=== PATIENT | male | born 1965 | race Caucasian/White ===

== ENCOUNTER 2023-05-14 06:52 | Outpatient (OUT) | payer OTHER, SELFPAY ==
--- NOTE | 2023-05-14 07:54 | CA_ITS ---
Patient Name: LINDSAY TORRES MR#: [id number] : 1965 Exam Date: 05/14/2023 Ordering Doctor: CE POZO CNP ECHOCARDIOGRAM REPORT PROCEDURE: CA ECHO DOPPLER COMPLETE INDICATIONS: Cardiomegaly, HTN COMPARISON: None. DESCRIPTION: COMPLETE ECHOCARDIOGRAM Real-time transthoracic echocardiography with 2D, M-mode, spectral and color flow Doppler performed. QUALITY: Technical quality was good. LEFT VENTRICLE: Normal chamber size. Thickened septal wall. LV EF: Global left ventricular systolic function is low normal limits; visually estimated ejection fraction is 50-55%. Abnormal septal motion; likely related to underlying bundle branch block. DIASTOLIC: Normal diastolic function. ATRIAL SEPTUM: Inadequately seen. LEFT ATRIUM: Severe dilatation. RIGHT ATRIUM: Moderate dilatation. RIGHT VENTRICLE: Normal in size. Normal right ventricular systolic function. TRICUSPID VALVE: Normal mobility and thickness. No stenosis with trivial regurgitation. No evidence of pulmonary hypertension. RVSP 28mmHg MITRAL VALVE: Normal mobility and thickness. No evidence of mitral valve stenosis. There is no mitral annular calcification. Mild mitral regurgitation. AORTIC VALVE: Normal trileaflet appearance. Thickened aortic valve. Normal leaflet mobility. No evidence of aortic valve stenosis. No aortic regurgitation. AORTIC ROOT: Mildly dilated. Measuring 3.9cm. PULMONIC VALVE: Normal thickness and mobility. No stenosis. No regurgitation. PERICARDIUM: Trivial pericardial effusion. IVC: Collapses with inspirations. Normal size. CONCLUSION: 1. Global left ventricular systolic function is low normal limits; visually estimated ejection fraction is 50 to 55% 2. The right ventricle is normal in size and systolic function 3. Normal diastolic function 4. Biatrial enlargement 5. Mild mitral regurgitation 6. The aortic root is mildly dilated 7. Trivial pericardial effusion is seen Adult Echocardiography Procedure Report Left Ventricle LVEDD (3.7 - 5.6 cm): 6.10 cm LVESD (2.2 - 4.0 cm): 4.26 cm LVIVS thickness (0.6 - 1.2 cm): 1.83 cm LVPW thickness (0.5 - 1.0 cm): 1.41 cm e': 0.11 m/s E - e': 6.69 LVOT Max Gradient: 2.57 mm[Hg] LVOT Area (cm2): 0.80 m/s Peak Velocity (LVOT): 0.80 m/s Mean Velocity (LVOT): 0.59 m/s LVOT Diameter 2.64 cm Left Ventricular Ejection Fraction: 52.09 % Left Atrium LA Volume Index (2D A2C): 71.40 ml/m2 Left Atrium Systolic Dimension: 4.27 cm Mitral Valve MV E to A Ratio: 1.75 Mitral Valve A-Wave Peak Velocity: 0.41 m/s Mitral Valve E-Wave Peak Velocity: 0.72 m/s Right Ventricle RV Internal Diastolic Dimension: 4.08 cm Aorta AO Root Diam: 3.87 cm Ascending Ao Diam: 3.54 cm Aortic Valve AoV Area (Peak Jozef): 3.35 cm2, 3.35 cm2 AoV Area (VTI): 3.17 cm2, 3.17 cm2 Peak Velocity(Antegrade Flow): 1.31 m/s Peak Gradient(Antegrade Flow): 6.89 mm[Hg] Mean Velocity(Antegrade Flow): 0.94 m/s Mean Gradient(Antegrade Flow): 4.03 mm[Hg] Velocity Time Integral: 28.15 cm Tricuspid Valve Peak Velocity (Regurgitant Flow): 2.33 m/s, 2.50 m/s, 2.20 m/s Pulmonic Valve Mean Gradient: 4.26 mm[Hg], 4.29 mm[Hg] Mean Velocity: 0.94 m/s, 0.96 m/s Peak Velocity: 1.45 m/s Peak Gradient: 8.61 mm[Hg], 8.20 mm[Hg] Right Atrium Right Atrium Systolic Pressure: 103.65 ml, 103.65 ml Dictated by: Megan Rosenberg M.D. on 05/14/2023 at 09:51 Approved by: Megan Rosenberg M.D. on 05/14/2023 at 09:55
== END 2023-05-14 06:53 | disposition home or self-care (01) ==
LOC: CARD 06:52
PROVIDERS: Family Provider Internal Medicine Interventional Cardiology; PCP Family Medicine; Visit Provider Nurse Practitioner Family
DX: I51.7 Cardiomegaly (principal); I34.0 Nonrheumatic mitral (valve) insufficiency
CPT/HCPCS: 93306; 93356

== ENCOUNTER 2024-05-09 08:14 | Outpatient (OUT) | payer OTHER, SELFPAY ==
--- OUTSIDE RECORDS SUMMARY | 2024-05-09 08:17 | XMS_ITS | CCD ---
Author Organization [facility] Care Team Providers Care Financial Internship Name Role Phone ANIBAL, DR KINGSLEY Mariee Attending Unavailabl e REINECK, DR KINGSLEY Mariee Consulting Unavailabl e REINECK, DR KINGSLEY Mariee Admitting Unavailabl e HOUSE, DR TINSLEY Primary Care Unavailable KLYM, CANDIS Consulting Unavailable HOUSE, DR TINSLEY Primary Care Unavailable HOUSE, DR TINSLEY Admitting Unavailable HOUSE, DR TINSLEY Attending Unavailable HOUSE, DR TINSLEY Consulting Unavailable TAFORMERLY [facility], DR DIAZ Consulting Unavailable HOUSE, DR TINSLEY Admitting Unavailable HOUSE, DR TINSLEY Attending Unavailable HOUSE, DR TINSLEY Consulting Unavailable HOUSE, DR TINSLEY Primary Care Unavailable CE POZO Attending Unavailable HOUSE, DO TINSLEY P Attending Unavailable HOUSE, LAUREANO Manuel Primary Care Unavailable Problems Active Problems Problem Classification Problem Date Documented Da te Episodic/Chronic Essential hypertension (2 sources) Essential (primary) hypertension; Translations: [Essential (primary) hypertension] Onset: 06-05-2023 Chronic Headache; including migraine (1 source) Headache; including migraine; Translations: [HEADACHE UNSPECIFIED] Onset: 05-23-2021 Past or Other Problems Problem Classification Problem Date Documented Da te Episodic/Chronic Other aftercare (1 source) 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; Translations: [OTH PRISON CURRENT DRUG THERAPY] Onset: 05-23-2021 Episodic Other nervous system disorders (4 sources) Pruitt's palsy; 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] Onset: 05-30-2021 Episodic Other skin disorders (3 sources) Localized swelling, mass and lump, head; Translations: [LOCALIZED SWELLING MASS AND LUMP HEAD] Onset: 05-21-2021 Episodic Results Test Name Value Interpretation Reference Range Facil ity Patient Handouton 05-05-2024 Patient Handout [id number] 5#1.00OTGTIFF [facility] Patient Handout [id number] 5#1.00OTGTIFF Normal [facility] Office Visiton 06-05-2023 Follow-up visit [id number] Lindsay Pinto 1965 M Date Provider Department Center 06/05/2023 CE REYES CARD [facility] Family History Problem Relation Age of Onset Hypertension Mother Cancer Father Coronary artery disease Father Hypertension Father Family Status - Relation Status Age at Mother Father Level of Service:51309 [place] OFFICE/OUTPATIENT ESTABLISHED MOD MDM 30-39 MIN Reason for Visit and Comments: Hypertension [392710] Normal [facility] CBC AUTO DIFFon 05-09-2022 BASO # 0.0 103/ul Normal 0.0-0.1 [facility] Comment on above: Performed By: #### C BC #### [facility] [address] [place] [address] Dr. Anny Corcoran Basophils/100 WBC (Bld) 0.4 % Normal 0.2-2.0 [facility] Comment on above: Performed By: #### C BC #### [facility] [address] [address] [address] Anny Corcoran EO # 0.1 103/ul Normal 0.0-0.7 [facility] Comment on above: Performed By: #### C BC #### [facility] [address] [place] [address] Dr. Anny Corcoran Eosinophils/100 WBC (Bld) 1.5 % Normal 0.9-7.0 [facility] Comment on above: Performed By: #### C BC #### [facility] [address] [address] [address] Anny Corcoran Erythrocyte distribution width (RBC) [Ratio] 14.1 % Normal 11.0-15.0 [facility] Comment on above: Performed By: #### C BC #### [facility] [address] [place] [address] Dr. Anny Corcoran Hematocrit (Bld) [Volume fraction] 37.6 % Critically low 42.0-54.0 [facility] Comment on above: Performed By: #### C BC #### [facility] [address] [address] [address] Anny Corcoran Hemoglobin (Bld) [Mass/Vol] 12.9 g/dL Critically low 14.0-18.0 [facility] Comment on above: Performed By: #### C BC #### [facility] [address] [address] [address] Anny Corcoran IG # 0.01 10e3/ul Normal 0.00-0.03 [facility] Comment on above: Performed By: #### C BC #### [facility] [address] [address] [address] Anny Corcoran IG % 0.2 % Normal 0.0-0.5 [facility] Comment on above: Performed By: #### C BC #### [facility] [address] [place] [address] Dr. Anny Corcoran LYMPH # 1.1 103/ul Critically low 1.2-3.8 [facility] Comment on above: Performed By: #### C BC #### [facility] [address] [place] [address] Dr. Anny Corcoran Lymphocytes/100 WBC (Bld) 21.8 % Normal 20.5-60.0 [facility] Comment on above: Performed By: #### C BC #### [facility] [address] [place] [address] Dr. Anny Corcoran MANUAL DIFF REQ NO Normal [facility] Comment on above: Performed By: #### C BC #### [facility] [address] [place] [address] Dr. Anny Corcoran MCH (RBC) [Entitic mass] 31.2 pg Normal 25.9-34.0 [facility] Comment on above: Performed By: #### C BC #### [facility] [address] [place] [address] Dr. Anny Corcoran MCHC (RBC) [Mass/Vol] 34.3 g/dL Normal 29.9-35.2 [facility] Comment on above: Performed By: #### C BC #### [facility] [address] [address] [address] Anny Corcoran MCV (RBC) [Entitic vol] 90.8 fL Normal 80.0-94.0 [facility] Comment on above: Performed By: #### C BC #### [facility] [address] [place] [address] Dr. Anny Corcoran MONO # 0.4 103/ul Normal 0.3-0.8 [facility] Comment on above: Performed By: #### C BC #### [facility] [address] [place] [address] Dr. Anny Corcoran Monocytes/100 WBC (Bld) 8.5 % Normal 1.7-12.0 [facility] Comment on above: Performed By: #### C BC #### [facility] [address] [place] [address] Dr. Anny Corcoran NEUT # 3.5 103/ul Normal 1.4-6.5 [facility] Comment on above: Performed By: #### C BC #### [facility] [address] [place] [address] Dr. Anny Corcoran Neutrophils/100 WBC (Bld) 67.6 % Normal 43.0-75.0 [facility] Comment on above: Performed By: #### C BC #### [facility] [address] [place] [address] Dr. Anny Corcoran Platelet mean volume (Bld) [Entitic vol] 9.4 fL Critically low 9.5-13.5 [facility] Comment on above: Performed By: #### C BC #### [facility] [address] [place] [address] Dr. Anny Corcoran PLT 209 103/ul Normal 150-450 [facility] Comment on above: Performed By: #### C BC #### [facility] [address] [place], [place] [id number] Dr. Anny Corcoran RBC 4.14 106/ul Critically low 4.70-6.10 [facility] Comment on above: Performed By: #### C BC #### [facility] [address] [place] [address] Dr. Anny Corcoran WBC 5.2 103/ul Normal 4.0-11.0 [facility] Comment on above: Performed By: #### C BC #### [facility] [address] [address] [address] Anny Corcoran LIPID PROFILEon 05-09-2022 CHOL-HDL RATIO NORM SEE BELOW Normal [facility] Comment on above: Result Comment: 3.3 - 4.4 LOW RISK 4.4 - 7.1 AVERAGE RISK 7.1 - 11.0 MODERATE RISK >11.0 HIGH RISK Performed By: #### L IPID, CMP #### [facility] [address] [address] [address] Anny Corcoran Cholesterol [Mass/Vol] 103 mg/dL Normal <=200 [facility] Comment on above: Performed By: #### L IPID, CMP #### [facility] [address] [address] [address] Anny Corcoran Cholesterol in HDL [Mass/Vol] 54 mg/dL Normal 40-60 [facility] Comment on above: Performed By: #### L IPID, CMP #### [facility] [address] [address] [address] Anny Corcoran Cholesterol in LDL [Mass/Vol] 43.8 mg/dL Normal [facility] Comment on above: Performed By: #### L IPID, CMP #### [facility] [address] [address] [address] Anny Corcoran Cholesterol.total/ Cholesterol in HDL [Mass ratio] 1.9 {ratio} Normal [facility] Comment on above: Performed By: #### L IPID, CMP #### [facility] [address] [address] [address] Anny Corcoran HDL NORMAL > or = 60 mg/dl - LOW CARDIOVASCULAR RISK <40 mg/dl - HIGH CARDIOVASCULAR RISK Normal [facility] Comment on above: Performed By: #### L IPID, CMP #### [facility] [address] [address] [address] Anny Corcoran LDL CALC NORMAL SEE BELOW Normal [facility] Comment on above: Result Comment: <100 mg/dl OPTIMAL 100 - 129 mg/dl NEAR OR ABOVE OPTIMAL 130 - 159 mg/dl BORDERLINE HIGH 160 - 189 mg/dl HIGH >190 mg/dl VERY HIGH Performed By: #### L IPID, CMP #### [facility] [address] [place] [address] Dr. Anny Corcoran Triglyceride [Mass/Vol] 26 mg/dL Normal <=150 [facility] Comment on above: Performed By: #### L IPID, CMP #### [facility] [address] [place] [address] Dr. Anny Corcoran VLDL CALC 5.2 mg/dL Normal [facility] Comment on above: Performed By: #### L IPID, CMP #### [facility] [address] [place] [address] Dr. Anny Corcoran PROF 14(COMP METB)on 022 Albumin [Mass/Vol] 4.0 g/dL Normal 3.4-5.0 [facility] Comment on above: Performed By: #### L IPID, CMP #### [facility] [address] [place] [address] Dr. Anny Corcoran Albumin/Globulin [Mass ratio] 1.4 {ratio} Normal [facility] Comment on above: Performed By: #### L IPID, CMP #### [facility] [address] [place] [address] Dr. Anyn Corcoran ALP [Catalytic activity/Vol] 106 U/L Normal 46-116 [facility] Comment on above: Performed By: #### L IPID, CMP #### [facility] [address] [place] [address] Dr. Anny Corcoran ALT [Catalytic activity/Vol] 28 U/L Normal 16-63 [facility] Comment on above: Performed By: #### L IPID, CMP #### [facility] [address] [place] [address] Dr. Anny Corcoran Anion gap [Moles/Vol] 7.3 mmol/L Normal [facility] Comment on above: Performed By: #### L IPID, CMP #### [facility] [address] [place] [address] Dr. Anny Corcoran AST [Catalytic activity/Vol] 23 U/L Normal 15-37 [facility] Comment on above: Performed By: #### L IPID, CMP #### [facility] [address] [address] [address] Anny Corcoran Bilirubin [Mass/Vol] 2.7 mg/dL Critically high 0.2-1.0 [facility] Comment on above: Performed By: #### L IPID, CMP #### [facility] [address] [place] [address] Dr. Anny Corcoran Calcium [Mass/Vol] 9.0 mg/dL Normal 8.5-10.1 [facility] Comment on above: Performed By: #### L IPID, CMP #### [facility] [address] [place] [address] Dr. Anny Corcoran Chloride [Moles/Vol] 104 mmol/L Normal 98-107 [facility] Comment on above: Performed By: #### L IPID, CMP #### [facility] [address] [place] [address] Dr. Anny Corcoran CO2 [Moles/Vol] 32.5 mmol/L Critically high 21.0-32.0 [facility] Comment on above: Performed By: #### L IPID, CMP #### [facility] [address] [place] [address] Dr. Anny Corcoran Creatinine [Mass/Vol] 0.78 mg/dL Normal 0.70-1.30 [facility] Comment on above: Performed By: #### L IPID, CMP #### [facility] [address] [place] [address] Dr. Anny Corcoran EGFR-AF VIET[place]ESE >60 Normal >=60 [facility] Comment on above: Performed By: #### L IPID, CMP #### [facility] [address] [place] [address] Dr. Anny Corcoran EGFR-NON AF VIETNAMESE >60 Normal >=60 [facility] Comment on above: Performed By: #### L IPID, CMP #### [facility] [address] [address] [address] Anny Corcoran Globulin (S) [Mass/Vol] 2.8 g/dL Normal [facility] Comment on above: Performed By: #### L IPID, CMP #### [facility] [address] [place] [address] Dr. Anny Corcoran Glucose [Mass/Vol] 86 mg/dL Normal 74-106 [facility] Comment on above: Performed By: #### L IPID, CMP #### [facility] [address] [place] [address] Dr. Anny Corcoran Potassium [Moles/Vol] 3.8 mmol/L Normal 3.5-5.1 [facility] Comment on above: Performed By: #### L IPID, CMP #### [facility] [address] [place] [address] Dr. Anny Corcoran Protein [Mass/Vol] 6.8 g/dL Normal 6.4-8.2 [facility] Comment on above: Performed By: #### L IPID, CMP #### [facility] [address] [place] [address] Dr. Anny Corcoran Sodium [Moles/Vol] 140 mmol/L Normal 136-145 [facility] Comment on above: Performed By: #### L IPID, CMP #### [facility] [address] [place] [address] Dr. Anny Corcoran Urea nitrogen [Mass/Vol] 19.0 mg/dL Critically high 7.0-18.0 [facility] Comment on above: Performed By: #### L IPID, CMP #### [facility] [address] [place] [address] Dr. Anny Corcoran Urea nitrogen/Creatinin e [Mass ratio] 24.4 mg/mg Normal [facility] Comment on above: Performed By: #### L IPID, CMP #### [facility] [address] [place] [address] Dr. Anny Corcoran LYME DISEASE AB, TOTAL AND I GM W/WB REFLon 06-01-2021 Lyme Disease Ab, Quant, IgM <0.80 Normal 0.00-0.79 [facility] Comment on above: Result Comment: Nega tive <0.80 Equivocal 0.80 - 1.19 Positive >1.19 . IgM levels may peak at 3-6 weeks post infection, then gradually decline. Performed By: #### L YMA #### [facility] [address] [place], [place] [address] Dr. Anny Corcoran Lyme IgG/IgM Ab <0.91 Normal 0.00-0.90 [facility] Comment on above: Result Comment: Nega tive <0.91 Equivocal 0.91 - 1.09 Positive >1.09 Performed By: #### L YMA #### [facility] [address] [place], [place] [address] HEAD WO CONon 05-21-2021 CT HEAD WO CON HEAD CT WITHOUT CONTRAST: 05/21/2021 11:40 AM EST Clinical Data: HEADACHE Comparison: No previous Unenhanced axial data from base to vertex. INTRA-AXIAL: No acute hemorrhage. No acute infarction is evident. EXTRA-AXIAL: No acute hemorrhage. No focal fluid collection. BRAIN VOLUME: Unremarkable for age. VENTRICLES: No hydrocephalus PARANASAL SINUSES: No air-fluid levels in the included aspects. Areas of mild mucosal thickening MASTOIDS: Clear. CALVARIUM: No acute finding. EXTRACALVARIAL: No acute findings IMPRESSION: 1. No evidence of acute intracranial process on this unenhanced study as described. All CT scans at this facility use dose modulation, iterative reconstruction, and/or weight based dosing when appropriate to reduce radiation dose to as low as reasonably achievable. Dosage: Electronically authenticated by: CANDIS MENDEZ Date: 2021-05-21 12:48 Normal [facility] Encounters Encounter Date Encounter Type Care Provider Facility Start: 04-30-2024 End: 04-30-2024 ambulatory DO LAUREANO LINDER Facility:[facility] Start: 06-05-2023 End: 06-05-2023 ambulatory [facility] Start: 06-05-2023 End: 06-05-2023 Encounter for general adult medical examination without abnormal findings [facility] Start: 05-14-2022 Encounter for genera l adult medical examination without abnormal findings DR LAUREANO LINDER [facility] Start: 05-09-2022 End: 05-10-[address] LAUREANO LINDER Facility:[facility] Start: 05-09-2022 End: 05-10-2022 Encounter for general adult medical examination without abnormal findings DR LAUREANO LINDER Facility:[facility] Start: 05-30-2021 End: 05-31-[address] LAUREANO LINDER Facility:[facility] Start: 05-21-2021 End: 05-21-[address] KINGSLEY BARNETT Facility:[facility] Procedures Date Procedure Procedure Detail Performing Clinician Start: 05-09-[address] NELIA BARNETT Comment on above: Performed By: #### P SAD #### [facility] [address] [address] [address] Anny Corcoran Payers Date Payer Category Payer Private Health Insurance [id number] 2012 Unknown [id number] 1965 Unknown [id number] [id number] 1965 Unknown [id number] [id number] 1965 Unknown [id number] 1965 Unknown [id number] [id number] Progress note 06-05-2023 Note Date & Type Note Facility 06-05-2023 Note [facility] SUBJECTIVE Chief Complaint Patient presents with Hypertension Lindsay Pinto is a 57 y.o. male here for follow-up. HPI PMHx: HTN, severe LVH, ENA and obesity s/p gastric bypass surgery He has been feeling well since last seen. He is not checking his BP at home. Denies c/o CP, dyspnea, orthopnea, PND, LE edema, dizziness/LH, palpitations, syncope. Patient Active Problem List Diagnosis Gout Hypertensive disorder Obesity Obstructive sleep apnea syndrome Ascending aorta dilatation (CMS/HCC) Past Medical History: Diagnosis Date Hypertension Obesity ENA (obstructive sleep apnea) Family History Problem Relation Name Age of Onset Hypertension Mother Cancer Father Coronary artery disease Father Hypertension Father Social History Tobacco Use Smoking status: Never Smokeless tobacco: Never Substance Use Topics Alcohol use: Yes Comment: occasional No Known Allergies ROS Musculoskeletal: Positive for arthritis and joint pain. All other systems reviewed and are negative. OBJECTIVE Visit Vitals BP 128/84 (BP Location: Left arm, Patient Position: Sitting) Pulse 59 Ht 1.753 m (5' 9 ) Wt 111 kg (244 lb) SpO2 99% BMI 36.03 kg/m??? Smoking Status Never BSA 2.32 m??? Medications: Current Outpatient Medications: ferrous sulfate 325 (65 Fe) MG tablet, Take 65 mg by mouth in the morning and at bedtime., Disp: , Rfl: furosemide (Lasix) 40 mg tablet, Take 1 tablet (40 mg) by mouth in the morning and at bedtime., Disp: 180 tablet, Rfl: 3 labetalol (Normodyne) 200 mg tablet, Take 2 tablets (400 mg) by mouth in the morning, at noon, and at bedtime., Disp: 540 tablet, Rfl: 3 lisinopril 10 mg tablet, Take 1 tablet (10 mg) by mouth in the morning., Disp: 90 tablet, Rfl: 3 Physical Exam Constitutional: Appearance: Normal appearance. He is normal weight. HENT: Head: Normocephalic and atraumatic. Right Ear: External ear normal. Left Ear: External ear normal. Eyes: Extraocular Movements: Extraocular movements intact. Pupils: Pupils are equal, round, and reactive to light. Neck: Vascular: No carotid bruit. Cardiovascular: Rate and Rhythm: Normal rate and regular rhythm. Pulses: Normal pulses. Heart sounds: Normal heart sounds. Pulmonary: Effort: Pulmonary effort is normal. Breath sounds: Normal breath sounds. Abdominal: General: Bowel sounds are normal. Palpations: Abdomen is soft. Musculoskeletal: General: Normal range of motion. Cervical back: Neck supple. Right lower leg: No edema. Left lower leg: No edema. Skin: General: Skin is warm and dry. Neurological: General: No focal deficit present. Mental Status: He is alert and oriented to person, place, and time. Psychiatric: Mood and Affect: Mood normal. Behavior: Behavior normal. Thought Content: Thought content normal. Judgment: Judgment normal. Labs: 05/09/2022 CBC - unremarkable Cr 0.75, BUN 19, K 3.8, Na 140, eGFR>60, ALT 28, AST 23 Chol 103, HDL 54, trig 25, LDL 43 Labs 04/08/2021 total bilirubin is high at 2.5, creatinine is 0.79, cholesterol is 114, HDL is 49, triglycerides of 50 and LDL is 55 Testing/Procedures: ECHO 05/14/2023 Global LV systolic function is low normal limits; visually estimated EF 50-55% RV is normal in size and function Normal diastolic function Biatrial enlargement Mild mitral regurg Aortic root is mildly dilated Trivial pericardial effusion is seen ECHO (05/07/2019) Global left ventricular systolic function is mildly to moderately reduced (Visually estimated EF 40%). The left ventricle is moderately enlarged. Left ventricular wall thickness is severely increased. Severe left ventricular hypertrophy. The left atrium is severely enlarged. The right atrium is severely enlarged. Doppler studies suggest normal right sided pressures. Mild aortic dilatation . Stress test 2016: no ischemia, LBBB ASSESSMENT/PLAN: Diagnosis Plan 1. Essential hypertension labetalol (Normodyne) 200 mg tablet lisinopril 10 mg tablet Comprehensive metabolic panel CBC 2. LVH (left ventricular hypertrophy) 3. Ascending aorta dilatation (CMS/HCC) 4. LV dysfunction 5. Nonrheumatic mitral valve regurgitation 6. ENA (obstructive sleep apnea) 7. Well adult exam Lipid panel #HTN -Currently well controlled -Continue labetalol and lisinopril -Continue heart healthy diet and routine exercise -Ordered for routine lab work #Severe LVH per 2018 ECHO #LV dysfunction, EF 40% per 2018 ECHO -ECHO done 05/14/2023 showed improvement in LVH, EF 50-55% - reviewed results with patient #Aortic dilation -Mild per 2018 ECHO -Mild per 05/2023 ECHO -Discussed importance of good BP control -Continue routine monitoring #Obstructive sleep apnea syndrome -He notes he is not currently wearing as he needs a new mask. We discussed the importance of controlling ENA and managing LVH, HTN, etc. (more content not included)... [facility] Progress note 06-05-2023 Note Date & Type Note Facility 06-05-2023 Note Patient here for 1 y ear follow up hypertension, LVH, and aortic dilation. Had echo a few weeks ago. Doing very well, as he denies chest pain, palpitations, and SOB. Review of Systems Musculoskeletal: Positive for arthritis and joint pain. All other systems reviewed and are negative. [facility] Summary Purpose Family History No Family History Records FoundNo Family History Records FoundNo Family History Records Found Advance Directives No Advanced Directives Records FoundNo Advanced Directives Records FoundNo Advanced Directives Records Found Additional Source Comments (unrecognized sect ion and content) No Status Records FoundNo Status Records FoundNo Status Records Found INFORMATION SOURCE (unrecogn ized section and content) DATE CREATED AUTHOR 05/14/2022 [facility] DATE CREATED AUTHOR AUTHOR'S ORGANIZ ATION 06/07/2023 [facility] DATE CREATED AUTHOR AUTHOR'S ORGANIZ ATION 05/07/2024 [facility] FOR RECORDS PERTAINING TO PATIENTS WHO ARE OR HAVE BEEN ENROLLED IN A CHEMICAL DEPENDENCY/SUBSTANCEABUSE PROGRAM, SOME INFORMATION MAY BE OMITTED. This clinical summary was aggregated from multiple sources. Caution should be exercised in using it in the provision of clinical care. This summary normalizes information from multiple sources, and as a consequence, information in this document may materially change the coding, format and clinical context of patient data. In addition, data may be omitted in some cases. CLINICAL DECISIONS SHOULD BE BASED ON THE PRIMARY CLINICAL RECORDS. [facility]. provides no warranty or guarantee of the accuracy or completeness of information in this document.
[2024-05-09 09:36] LABS: Basophils Percent Auto 0.4 % (0.2-2.0); Eosinophils Absolute Auto 0.1 10^3/uL (0.0-0.7); Eosinophils Percent Auto 1.2 % (0.9-7.0); Hematocrit 40.6 % (42.0-54.0); Hemoglobin 13.7 g/dL (14.0-18.0); Immature Granulocytes Abs Auto 0.01 10^3/uL (0.00-0.03); Immature Granulocytes Pct Auto 0.2 % (0.0-0.5); Lymphocytes Absolute Auto 1.1 10^3/uL (1.2-3.8); Mean Corpuscular HGB Conc 33.7 g/dL (29.9-35.2); Mean Corpuscular Hemoglobin 30.9 pg (25.9-34.0); Mean Corpuscular Volume 91.4 fL (80.0-94.0); Mean Platelet Volume 9.7 fL (9.5-13.5); Monocytes Absolute Auto 0.5 10^3/uL (0.3-0.8); Monocytes Percent Auto 9.9 % (1.7-12.0); Neutrophils Absolute Auto 3.2 10^3/uL (1.4-6.5); Neutrophils Percent Auto 65.3 % (43.0-75.0); Platelet Count 205 10^3/uL (150-450); Red Blood Count 4.44 10^6/uL (4.70-6.10); Red Cell Distribution Width 13.7 % (11.0-15.0); White Blood Count 4.9 10^3/uL (4.0-11.0)
[2024-05-09 09:45] LABS: Alanine Aminotransferase 27 U/L (16-63); Albumin Globulin Ratio 1.5; Albumin Level 3.7 g/dL (3.4-5.0); Alkaline Phosphatase 114 U/L (46-116); Aspartate Amino Transferase 21 U/L (15-37); BUN Creatinine Ratio 23.1; Bilirubin Total 3.5 mg/dL (0.2-1.0); Calcium 8.6 mg/dL (8.5-10.1); Carbon Dioxide 28.3 mmol/L (21.0-32.0); Chloride 108 mmol/L (98-107); Chol HDL Ratio 2.2; Cholesterol 111 mg/dL (<=200); Estimated GFR (African America >60 (>=60 mL/min/1.73m^2); Estimated GFR (Non-African Ame >60 (>=60 mL/min/1.73m^2); Globulin 2.5 g/dL; Glucose 85 mg/dL (74-106); HDL Cholesterol 50 mg/dL (40-60); LDL Cholesterol Calculated 52.4 mg/dL; Potassium 4.3 mmol/L (3.5-5.1); Sodium 145 mmol/L (136-145); Total Protein 6.2 g/dL (6.4-8.2); Triglycerides 43 mg/dL (<=150); VLDL CHOLESTEROL 8.6 mg/dL
[2024-05-09 10:19] LABS: Prostate Specific Antigen Scrn 0.49 ng/mL (<=4.00)
== END 2024-05-09 08:15 | disposition home or self-care (01) ==
PROVIDERS: Family Provider Internal Medicine Interventional Cardiology; PCP Family Medicine; Visit Provider Family Medicine
DX: Z12.5 Encounter for screening for malignant neoplasm of prostate (principal); I10 Essential (primary) hypertension
CPT/HCPCS: 36415; 80053; 80061; 85025; G0103

== ENCOUNTER 2025-02-10 17:52 | Emergency (ER) | payer OTHER, SELFPAY ==
[2025-02-10 17:55] VITALS: BP 117/99; PULSE 64; TEMP 36.3; O2SAT 100; BMI 38.0
--- OUTSIDE RECORDS SUMMARY | 2025-02-10 17:58 | XMS_ITS | Clinical Summary ---
Author Organization [facility] tem Address [id number] [address] [place] [address] Care Team Providers Care Scarifier Operator Name Role Phone Jalen Echeverria DO Primary Care Provider [phone] Social History Tobacco Use Types Packs/Day Years Used Date Smoking Tobacco: Never Assessed Childcare Answer Date Recorded Childcare Unknown 12/10/2018 Employment Answer Date Recorded Employment Unknown 12/10/2018 Purpose - Life Answer Date Recorded Purpose and direction in life Unknown Sex and Gender Information Value Date Recorded Sex Assigned at Not on file Legal Sex Male 11:40 AM EDT Gender Identity Not on file Sexual Orientation Not on file Plan of Treatment Not on file Medical Devices Not on file Insurance [employer] Care Teams Scarifier Operator Relationship Specialty Start Date End Date Jalen Echeverria DO PCP - General Family Medicine 05/18/19
--- OUTSIDE RECORDS SUMMARY | 2025-02-10 17:59 | XMS_ITS | CCD ---
Author Organization [facility] Care Team Providers Care Interior Paneler Name Role Phone ANIBAL, DR KINGSLEY Mariee Attending Unavailabl e REINECK, DR KINGSLEY Mariee Consulting Unavailabl e REINECK, DR KINGSLEY Mariee Admitting Unavailabl e HOUSE, DR TINSLEY Primary Care Unavailable KLYM, CANDIS Consulting Unavailable HOUSE, DR TINSLEY Primary Care Unavailable HOUSE, DR TINSLEY Admitting Unavailable HOUSE, DR TINSLEY Attending Unavailable HOUSE, DR TINSLEY Consulting Unavailable ELTAHAWY, DR DIAZ Consulting Unavailable HOUSE, DR TINSLEY Admitting Unavailable HOUSE, DR TINSLEY Attending Unavailable HOUSE, DR TINSLEY Consulting Unavailable HOUSE, DR TINSLEY Primary Care Unavailable CE POZO Attending Unavailable ELTAHAWY, JOE Attending Unavailable HOUSE, DO TINSLEY P Attending Unavailable HOUSE, LAUREANO P Primary Care Unavailable HOUSE, DO TINSLEY P Attending Unavailable HOUSE, LAUREANO P Primary Care Unavailable HOUSE, LAUREANO P Primary Care Unavailable HOUSE, DO TINSLEY P Attending Unavailable Problems Active Problems Problem Classification Problem Date Documented Da te Episodic/Chronic Essential hypertension (2 sources) Essential (primary) hypertension; Translations: [Essential (primary) hypertension] Onset: 06-05-2023 Chronic Headache; including migraine (1 source) Headache; including migraine; Translations: [HEADACHE UNSPECIFIED] Onset: 05-23-2021 Residual codes; unclassified (2 sources) Edema, unspecified; Translations: [Edema, unspecified] Onset: 06-01-2024 Episodic Past or Other Problems Problem Classification Problem Date Documented Da te Episodic/Chronic Other aftercare (1 source) 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2024 Follow-up visit [id number] Lindsay Pinto 1965 M Date Provider Department Center 06/01/2024 JOE GIBBONS CARD [facility] Family History Problem Relation Age of Onset Hypertension Mother Cancer Father Coronary artery disease Father Hypertension Father Family Status - Relation Status Age at Mother Father Level of Service:61725 [place] OFFICE/OUTPATIENT ESTABLISHED LOW MDM 20 MIN Normal [facility] Lab - Other Lab [facility] - Other Lab Results [id number]#[address] [facility] Patient Handouton 05-05-2024 Patient Handout [id number] 5[facility] [id number] 5[facility] 06-05-2023 Follow-up visit [id number] Lindsay Pinto 1965 Date Provider Department Center 06/05/2023 CE REYES [facility] Family History Problem Relation Age of Onset Hypertension Mother Cancer Father Coronary artery disease Father Hypertension Father Family Status - Relation Status Age at Mother Father Level of Service:23659 [place] OFFICE/OUTPATIENT ESTABLISHED MOD MDM 30-39 MIN Reason for Visit and Comments: Hypertension [465531] Normal [facility] CBC AUTO DIFFon 05-09-2022 BASO # 0.0 103/ul Normal 0.0-0.1 [facility] Comment on above: Performed By: #### C BC #### [facility] [address] [address] [address] Anny Corcoran Basophils/100 WBC (Bld) 0.4 % Normal 0.2-2.0 [facility] Comment on above: Performed By: #### C BC #### [facility] [address] [address] [address] Anny Corcoran EO # 0.1 103/ul Normal 0.0-0.7 [facility] Comment on above: Performed By: #### C BC #### [facility] [address] [place] [address] Dr. Anny Corcoran Eosinophils/100 WBC (Bld) 1.5 % Normal 0.9-7.0 [facility] Comment on above: Performed By: #### C BC #### [facility] [address] [place] [address] Dr. Anny Corcoran Erythrocyte distribution width (RBC) [Ratio] 14.1 % Normal 11.0-15.0 [facility] Comment on above: Performed By: #### C BC #### [facility] [address] [place] [address] Dr. Anny Corcoran Hematocrit (Bld) [Volume fraction] 37.6 % Critically low 42.0-54.0 [facility] Comment on above: Performed By: #### C BC #### [facility] [address] [place] [address] Dr. Anny Corcoran Hemoglobin (Bld) [Mass/Vol] 12.9 g/dL Critically low 14.0-18.0 [facility] Comment on above: Performed By: #### C BC #### [facility] [address] [place] [address] Dr. Anny Corcoran IG # 0.01 10e3/ul Normal 0.00-0.03 [facility] Comment on above: Performed By: #### C BC #### [facility] [address] [place] [address] Dr. Anny Corcoran IG % 0.2 % Normal 0.0-0.5 [facility] Comment on above: Performed By: #### C BC #### [facility] [address] [place] [address] Dr. Anny Corcoran LYMPH # 1.1 103/ul Critically low 1.2-3.8 [facility] Comment on above: Performed By: #### C BC #### [facility] [address] [place] [address] Dr. Anny Corcoran Lymphocytes/100 WBC (Bld) 21.8 % Normal 20.5-60.0 [facility] Comment on above: Performed By: #### C BC #### [facility] [address] [place] [address] Dr. Anny Corcoran MANUAL DIFF REQ NO Normal [facility] Comment on above: Performed By: #### C BC #### [facility] [address] [place] [address] Dr. Anny Corcoran MCH (RBC) [Entitic mass] 31.2 pg Normal 25.9-34.0 [facility] Comment on above: Performed By: #### C BC #### [facility] [address] [place] [address] Dr. Anny Corcoran MCHC (RBC) [Mass/Vol] 34.3 g/dL Normal 29.9-35.2 [facility] Comment on above: Performed By: #### C BC #### [facility] [address] [place] [address] Dr. Anny Corcoran MCV (RBC) [Entitic vol] 90.8 fL Normal 80.0-94.0 [facility] Comment on above: Performed By: #### C BC #### [facility] [address] [place] [address] Dr. Anny Corcoran MONO # 0.4 103/ul Normal 0.3-0.8 [facility] Comment on above: Performed By: #### C BC #### [facility] [address] [place] [address] Dr. Anny Corcoran Monocytes/100 WBC (Bld) 8.5 % Normal 1.7-12.0 [facility] Comment on above: Performed By: #### C BC #### [facility] [address] [place] [address] Dr. Anny Corcoran NEUT # 3.5 103/ul Normal 1.4-6.5 [facility] Comment on above: Performed By: #### C BC #### [facility] [address] [address] [address] Anny Corcoran Neutrophils/100 WBC (Bld) 67.6 % Normal 43.0-75.0 [facility] Comment on above: Performed By: #### C BC #### [facility] [address] [address] [address] Anny Corcoran Platelet mean volume (Bld) [Entitic vol] 9.4 fL Critically low 9.5-13.5 [facility] Comment on above: Performed By: #### C BC #### [facility] [address] [address] [address] Anny Corcoran PLT 209 103/ul Normal 150-450 [facility] Comment on above: Performed By: #### C BC #### [facility] [address] [place] [address] Dr. Anny Corcoran RBC 4.14 106/ul Critically low 4.70-6.10 [facility] Comment on above: Performed By: #### C BC #### [facility] [address] [place] [address] Dr. Anny Corcoran WBC 5.2 103/ul Normal 4.0-11.0 [facility] Comment on above: Performed By: #### C BC #### [facility] [address] [place] [address] Dr. Anny Corcoran LIPID PROFILEon 05-09-2022 CHOL-HDL RATIO NORM SEE BELOW Normal [facility] Comment on above: Result Comment: 3.3 - 4.4 LOW RISK 4.4 - 7.1 AVERAGE RISK 7.1 - 11.0 MODERATE RISK >11.0 HIGH RISK Performed By: #### L IPID, CMP #### [facility] [address] [place] [address] Dr. Anny Corcoran Cholesterol [Mass/Vol] 103 mg/dL Normal <=200 [facility] Comment on above: Performed By: #### L IPID, CMP #### [facility] [address] [address] [address] Anny Corcoran Cholesterol in HDL [Mass/Vol] 54 mg/dL Normal 40-60 [facility] Comment on above: Performed By: #### L IPID, CMP #### [facility] [address] [address] [address] Anny Corcoran Cholesterol in LDL [Mass/Vol] 43.8 mg/dL Normal [facility] Comment on above: Performed By: #### L IPID, CMP #### [facility] [address] [address] [address] Anny Corcoran Cholesterol.total/ Cholesterol in HDL [Mass ratio] 1.9 {ratio} Normal [facility] Comment on above: Performed By: #### L IPID, CMP #### [facility] [address] [address] [address] Anny Corcoran HDL NORMAL > or = 60 mg/dl - LOW CARDIOVASCULAR RISK <40 mg/dl - HIGH CARDIOVASCULAR RISK Normal [facility] Comment on above: Performed By: #### L IPID, CMP #### [facility] [address] [address] [address] Anny Corcoran LDL CALC NORMAL SEE BELOW Normal [facility] Comment on above: Result Comment: <100 mg/dl OPTIMAL 100 - 129 mg/dl NEAR OR ABOVE OPTIMAL 130 - 159 mg/dl BORDERLINE HIGH 160 - 189 mg/dl HIGH >190 mg/dl VERY HIGH Performed By: #### L IPID, CMP #### [facility] [address] [place] [address] Dr. Anny Corcoran Triglyceride [Mass/Vol] 26 mg/dL Normal <=150 [facility] Comment on above: Performed By: #### L IPID, CMP #### [facility] [address] [place] [address] Dr. Anny Corcoran VLDL CALC 5.2 mg/dL Normal [facility] Comment on above: Performed By: #### L IPID, CMP #### [facility] [address] [place] [address] Dr. Anny Corcoran PROF 14(COMP METB)on 022 Albumin [Mass/Vol] 4.0 g/dL Normal 3.4-5.0 [facility] Comment on above: Performed By: #### L IPID, CMP #### [facility] [address] [address] [address] Anny Corcoran Albumin/Globulin [Mass ratio] 1.4 {ratio} Normal [facility] Comment on above: Performed By: #### L IPID, CMP #### [facility] [address] [address] [address] Anny Corcoran ALP [Catalytic activity/Vol] 106 U/L Normal 46-116 [facility] Comment on above: Performed By: #### L IPID, CMP #### [facility] [address] [address] [address] Anny Corcoran ALT [Catalytic activity/Vol] 28 U/L Normal 16-63 [facility] Comment on above: Performed By: #### L IPID, CMP #### [facility] [address] [address] [address] Anny Corcoran Anion gap [Moles/Vol] 7.3 mmol/L Normal [facility] Comment on above: Performed By: #### L IPID, CMP #### [facility] [address] [address] [address] Anny Corcoran AST [Catalytic activity/Vol] 23 U/L Normal 15-37 [facility] Comment on above: Performed By: #### L IPID, CMP #### [facility] [address] [address] [address] Anny Corcoran Bilirubin [Mass/Vol] 2.7 mg/dL Critically high 0.2-1.0 [facility] Comment on above: Performed By: #### L IPID, CMP #### [facility] [address] [address] [address] Anny Corcoran Calcium [Mass/Vol] 9.0 mg/dL Normal 8.5-10.1 [facility] Comment on above: Performed By: #### L IPID, CMP #### [facility] [address] [address] [address] Anny Corcoran Chloride [Moles/Vol] 104 mmol/L Normal 98-107 [facility] Comment on above: Performed By: #### L IPID, CMP #### [facility] [address] [address] [address] Anny Corcoran CO2 [Moles/Vol] 32.5 mmol/L Critically high 21.0-32.0 [facility] Comment on above: Performed By: #### L IPID, CMP #### [facility] [address] [address] [address] Anny Corcoran Creatinine [Mass/Vol] 0.78 mg/dL Normal 0.70-1.30 [facility] Comment on above: Performed By: #### L IPID, CMP #### [facility] [address] [address] [address] Anny Corcoran EGFR-AF SRI LANKAN >60 Normal >=60 [facility] Comment on above: Performed By: #### L IPID, CMP #### [facility] [address] [address] [address] Anny Corcoran EGFR-NON AF SRI LANKAN >60 Normal >=60 [facility] Comment on above: Performed By: #### L IPID, CMP #### [facility] [address] [address] [address] Anny Corcoran Globulin (S) [Mass/Vol] 2.8 g/dL Normal [facility] Comment on above: Performed By: #### L IPID, CMP #### [facility] [address] [address] [address] Anny Corcoran Glucose [Mass/Vol] 86 mg/dL Normal 74-106 [facility] Comment on above: Performed By: #### L IPID, CMP #### [facility] [address] [address] [address] Anny Corcoran Potassium [Moles/Vol] 3.8 mmol/L Normal 3.5-5.1 [facility] Comment on above: Performed By: #### L IPID, CMP #### [facility] [address] [address] [address] Anny Corcoran Protein [Mass/Vol] 6.8 g/dL Normal 6.4-8.2 [facility] Comment on above: Performed By: #### L IPID, CMP #### [facility] [address] [address] [address] Anny Corcoran Sodium [Moles/Vol] 140 mmol/L Normal 136-145 [facility] Comment on above: Performed By: #### L IPID, CMP #### [facility] [address] [address] [address] Anny Corcoran Urea nitrogen [Mass/Vol] 19.0 mg/dL Critically high 7.0-18.0 [facility] Comment on above: Performed By: #### L IPID, CMP #### [facility] [address] [address] [address] Anny Corcoran Urea nitrogen/Creatinin e [Mass ratio] 24.4 mg/mg Normal [facility] Comment on above: Performed By: #### L IPID, CMP #### [facility] [address] [place] [address] Dr. Anny Corcoran LYME DISEASE AB, TOTAL AND I GM W/WB REFLon 06-01-2021 Lyme Disease Ab, Quant, IgM <0.80 Normal 0.00-0.79 [facility] Comment on above: Result Comment: Nega tive <0.80 Equivocal 0.80 - 1.19 Positive >1.19 . IgM levels may peak at 3-6 weeks post infection, then gradually decline. Performed By: #### L YMA #### [facility] [address] [place] [address] Dr. Anny Corcoran Lyme IgG/IgM Ab <0.91 Normal 0.00-0.90 [facility] Comment on above: Result Comment: Nega tive <0.91 Equivocal 0.91 - 1.09 Positive >1.09 Performed By: #### L YMA #### [facility] [address] [place] [address] HEAD WO CONon [...] by: CANDIS MENDEZ Date: 2021-05-21 12:48 Normal [facility] Encounters Encounter Date Encounter Type Care Provider Facility Start: 01-28-2025 ambulatory DO LAUREANO LINDER Faci lity:[facility] Start: 10-29-2024 End: 10-29-2024 ambulatory DO LAUREANO LINDER Facility:[facility] Start: 06-01-2024 End: 06-01-2024 ambulatory [facility] Start: 04-30-2024 End: 04-30-2024 ambulatory LAUREANO LINDER Facility:[facility] Start: 06-05-2023 End: 06-05-2023 ambulatory [facility] Start: 06-05-2023 End: 06-05-2023 Encounter for general adult medical examination without abnormal findings [facility] Start: 05-14-2022 Encounter for genera l adult medical examination without abnormal findings DR LAUREANO LINDER [facility] Start: 05-09-2022 End: 05-10-[address] [...] above: Performed By: #### P SAD #### [facility] [address] [place], [place] [address] Dr. Anny Corcoran Payers Date Payer Category Payer Private Health Insurance [id number] 2012 Unknown [id number] 1965 Unknown [id number] 2.16.84 [id number] 1965 Unknown [id number] 2.16.84 [id number] 1965 Unknown [id number] 2.16.84 [id number] 1965 Unknown [id number] 2.16.8 [id number] 1965 Unknown [id number] 2.16.8 [id number] 1965 Unknown [id number] 2.16.8 [id number] Progress note 06-01-2024 Note Date & Type Note Facility 06-01-2024 Note Cardiovascular Medic ine [facility] SUBJECTIVE Patient here for 1 year follow up valve disorder, ascending aortic dilatation, and hypertension. Had routine labs w/ lipid panel last month. No imaging since last visit in May 2023. Denies chest pain, SOB, and palpitations. Says he had 1 recent episode of dizziness and he fell. Doesn't know if he passed out or not. Says he was half asleep and didn't eat much that day. Lindsay Pinto is a 58 y.o. male here for follow-up. HPI PMHx: [...] use: Yes Comment: occasional No Known Allergies Review of Systems Musculoskeletal: Positive for falls. Neurological: Positive for dizziness and loss of balance. Musculoskeletal: Positive for arthritis and joint pain. All other systems reviewed and are negative. OBJECTIVE Visit Vitals Smoking Status Never Medications: Current Outpatient Medications: ferrous sulfate 325 (65 Fe) MG tablet, Take 65 mg by mouth in the morning and at bedtime., Disp: , Rfl: furosemide (Lasix) 40 mg tablet, TAKE 1 TABLET(40 MG) BY MOUTH IN THE MORNING AND AT BEDTIME, Disp: 180 tablet, Rfl: 3 labetalol (Normodyne) 200 mg tablet, Take 2 tablets (400 mg) by mouth in the morning, at noon, and at bedtime., Disp: 540 tablet, Rfl: 3 lisinopril 10 mg tablet, Take 1 tablet (10 mg) by mouth in the morning., Disp: 90 tablet, Rfl: 3 BP 106/70 (BP Location: Left arm, Patient Position: Sitting) Pulse 73 Ht 1.753 m (5' 9 ) Wt 112 kg (247 lb) SpO2 98% BMI 36.48 kg/m??? Physical Exam Constitutional: Appearance: Normal appearance. He [...] Stress test 2016: no ischemia, LBBB ASSESSMENT/PLAN: No diagnosis found. #HTN -Currently well controlled - will decrease his labetolol to 200 mg TID -Continue labetalol and lisinopril -Continue heart healthy [...] monitoring #Obstructive sleep apnea syndrome -He notes (more content not included)... [facility] Progress note 06-05-2023 Note Date & Type Note Facility 06-05-2023 Note Patient here for 1 y ear follow up hypertension, LVH, and aortic dilation. Had echo a few weeks ago. Doing very well, as he denies chest pain, palpitations, and SOB. Review of Systems Musculoskeletal: Positive for arthritis and joint pain. All other systems reviewed and are negative. [facility] Progress note 06-05-2023 Note Date & Type Note Facility 06-05-2023 Note Cardiovascular Medic [facility] SUBJECTIVE Chief Complaint Patient presents with Hypertension [...] for routine lab work #Severe LVH per 2019 ECHO #LV dysfunction, EF 40% per 2018 [...] LVH, HTN, etc. (more content not included)... [facility] Summary Purpose Family History No [...] and content) DATE CREATED AUTHOR 05/14/2022 [facility] DATE CREATED AUTHOR AUTHOR'S ORGANIZ ATION 06/02/2024 [facility] DATE CREATED AUTHOR AUTHOR'S ORGANIZ ATION 01/31/2025 [facility] FOR RECORDS PERTAINING TO PATIENTS WHO ARE [...] BE BASED ON THE PRIMARY CLINICAL RECORDS. [facility] [employer] [facility]. provides no warranty or guarantee of the accuracy or completeness of information in this document.
--- NOTE | 2025-02-10 18:15 | XR_ITS ---
[address] [address] Patient Name: LINDSAY TORRES MRN: [id number] date: 1965 Sex: M Assigned Patient Location: ER Current Patient Location: ER Accession/Order Number: [id number] Exam Date: 02/10/2025 18:57 Report Date: 02/10/2025 18:58 At the request of: DEISI ROMEO Procedure: XR abdomen 1V Single view of abdomen COMPARISON: None HISTORY: Abdominal pain for 3 weeks THORAX: Lung bases unremarkable. FREE AIR: Supine position limits assessment BOWEL: Mild gaseous intestinal distention. STOOL: Moderate stool: RENAL STONES: No significant stones present. Gallstones present VASCULAR CALCIFICATIONS: Unremarkable SOFT TISSUE: Unremarkable BONES: Lumbar degeneration POSTSURGICAL CHANGES: None XR/XR abdomen 1V IMPRESSION: Moderate burden of stool in proximal colon Impression dictated by: Reynaldo Carlos M.D. 02/10/2025 6:58 PM Dictation Location: [employer] Electronically authenticated by: [id number] Y Date: 02/10/2025 18:58
--- NOTE | 2025-02-10 18:21 | ED.GENADUL1 ---
HPI HPI - General Adult General Chief complaint: Abdominal Pain Stated complaint: BLOATED Time Seen by Provider: 02/10/25 17:56 Source: patient Mode of arrival: walk-in Limitations: no limitations History of Present Illness HPI narrative: Patient is a 59-year-old male with a past medical history of hypertension and surgical history of gastric bypass with Dr. De Jesus in 2019 that presents today with complaints of constipation and bloating. He did have a complication with the original surgery and did have a revision. He denies any abdominal pain but states that he feels like his stomach is getting so full that it is uncomfortable. This has been going on for 2-1/2 to 3 weeks. He does endorse flatus and states that he is having very small bowel movements, but not his normal. He did see Dr. Linder when this first started and was given Linzess. He had to quit taking this after 4 days secondary to the side effects of joint pain in his knees and shoulder. He denies fever, chest pain, shortness of breath, alcohol or illicit drug use. He does take a supplemental iron but has not been taking that in the past week. He has called Dr. De Jesus's office twice and it was recommended that he try Fleet enema at home. He is only tried milk of magnesia at home with little to no relief. He has not been eating a lot secondary to the discomfort. He does state that he is dehydrated and has been sweating a lot and has not replenished his fluids like he normally does. Related Data Home Medications ?Medication ?Instructions ?Recorded ?Confirmed furosemide 40 mg tablet 40 mg PO DAILY 02/10/25 02/10/25 labetalol 200 mg tablet 200 mg PO TID 02/10/25 02/10/25 lisinopril 10 mg tablet 10 mg PO DAILY 02/10/25 02/10/25 Previous Rx's ?Medication ?Instructions ?Recorded docusate sodium 100 mg capsule 100 mg PO BID #10 caps 02/10/25 (Colace) Allergies Allergy/AdvReac Type Severity Reaction Status Date / Time No Known Drug Allergies Allergy Verified 02/10/25 17:59 Review of Systems ROS Status of ROS 10 or more systems reviewed and unremarkable except as noted in history and below PFS PFS Surgical History (Updated 02/10/25 @ 18:04 by Susana Lopez) H/O gastric bypass ?Z98.84 - Bariatric surgery status (ICD-10) Social History Little interest or pleasure in doing things: not at all Feeling down, depressed, or hopeless: not at all Exam Narrative Exam Narrative: General: No distress, age-appropriate Skin: Warm, dry, no pallor. No rash. Head: Normocephalic, atraumatic. Neck: Supple, non-tender. Eye: Pupils are equal, round and EOMI. No scleral icterus. Ears, Nose, Mouth, and Throat: No nasal mucosal hypertrophy. Oral mucosa is moist, no posterior oropharynx erythema, uvula is mid-line Cardiovascular: Regular Rate and Rhythm without murmur, gallop or rub. Respiratory: No accessory muscle use or respiratory distress. Lungs are clear to auscultation, no wheezing, rales or rhonchi Chest Wall: no tenderness Back: No midline thoracic or lumbar vertebral tenderness. Musculoskeletal: Full ROM of all extremities, no calf or popliteal tenderness GI: Abdomen is soft, mildly distended, non tender to palpation. No masses appreciated. No rebound, guarding, or rigidity noted. Neurological: A&O x4. No cranial nerve dysfunction observed. No truncal ataxia. Moves all extremities. Sensation intact. Psychiatric: Cooperative and interactive. Normal mood and affect. Constitutional Vital Signs, click to edit/add: Last Vital Signs Temp 97.4 F L 02/10/25 17:55 Pulse 78 02/10/25 20:44 Resp 14 02/10/25 20:44 BP 120/85 02/10/25 20:44 Pulse Ox 96 02/10/25 20:44 O2 Del Method Room Air 02/10/25 20:44 Course Reevaluation(s) Reevaluation #1: Patient updated with lab results and x-ray results. Discussed doing a soapsuds enema and patient agrees. Enema was ordered. Time: 19:10 Vital Signs Vital signs: Vital Signs Temperature 97.4 F L 02/10/25 17:55 Pulse Rate 64 02/10/25 17:55 Respiratory Rate 18 02/10/25 17:55 Blood Pressure 117/99 H 02/10/25 17:55 Pulse Oximetry 100 02/10/25 17:55 Oxygen Delivery Method Room Air 02/10/25 17:55 Temperature 97.4 F L 02/10/25 17:55 Pulse Rate 78 02/10/25 20:44 Respiratory Rate 14 02/10/25 20:44 Blood Pressure 120/85 02/10/25 20:44 Pulse Oximetry 96 02/10/25 20:44 Oxygen Delivery Method Room Air 02/10/25 20:44 Medical Decision Making MDM Narrative Medical decision making narrative: Patient is a 59-year-old male that presented to the emergency department with complaints of bloating and constipation for about 2-1/2 to 3 weeks. Patient had tried milk of magnesia, senna, and MiraLAX with no relief of his bloating. He denied abdominal pain and exam was also benign. He did endorse flatus and small BMs in the mornings so I did not get a CT scan as I did not suspect a SBO. KUB did show moderate burden of stool in proximal colon and labs were largely unremarkable. He was complaining of dry mouth and dehydration and I did give him 1 L normal saline. I also ordered a soapsuds enema and he did have some small bowel movements. On reevaluation he after he did state he felt a little bit better, abdomen still soft, nontender, nondistended. I discussed discharging him home with Colace and patient agreed. He can also try a fleets enema within the next few days. We did discuss proper hydration and movement to help. He will consult Dr. De Jesus or Dr. Linder if this is still not improving. We discussed that he is encouraged to return to the emergency department should his symptoms fail to improve, worsen, or he experiences any new symptoms. Patient was discharged in good condition to home. Differential Diagnosis Differential Diagnosis: Medication induced constipation, hypokalemia, hypocalcemia Lab Data Lab results reviewed: Yes I reviewed the patient's lab results Lab results narrative: G0306, BMP largely within normal limits Labs: Lab Results 02/10/25 Range/Units 18:25 WBC 8.8 (4.0-11.0) 10^3/uL RBC 4.60 L (4.70-6.10) 10^6/uL Hgb 14.6 (14.0-18.0) g/dL Hct 42.3 (42.0-54.0) % MCV 92.0 (80.0-94.0) fL MCH 31.7 (25.9-34.0) pg MCHC 34.5 (29.9-35.2) g/dL RDW 15.2 H (11.0-15.0) % Plt Count 264 (150-450) 10^3/uL MPV 10.6 (9.5-13.5) fL Neut % (Auto) 73.4 (43.0-75.0) % Lymph % (Auto) 17.0 L (20.5-60.0) % [place] % (Auto) 8.1 (1.7-12.0) % Eos % (Auto) 1.0 (0.9-7.0) % Baso % (Auto) 0.2 (0.2-2.0) % Neut # (Auto) 6.4 (1.4-6.5) 10^3/uL Lymph # (Auto) 1.5 (1.2-3.8) 10^3/uL [place] # (Auto) 0.7 (0.3-0.8) 10^3/uL Eos # (Auto) 0.1 (0.0-0.7) 10^3/uL Baso # (Auto) 0.0 (0.0-0.1) 10^3/uL Abs Immat Gran (auto) 0.03 (0.00-0.03) 10^3/uL Imm/Tot Granulo (auto) 0.3 (0.0-0.5) % Sodium 139 (136-145) mmol/L Potassium 4.0 (3.5-5.1) mmol/L Chloride 103 (98-107) mmol/L Carbon Dioxide 24.7 (21.0-32.0) mmol/L Anion Gap 15.3 BUN 24.0 H (7.0-18.0) mg/dL Creatinine 1.11 (0.70-1.30) mg/dL Est GFR ( Amer) >60 (>=60 mL/min/1.73m^2) Est GFR (Non-Af Amer) >60 (>=60 mL/min/1.73m^2) BUN/Creatinine Ratio 21.6 Glucose 108 H (74-106) mg/dL Calcium 8.7 (8.5-10.1) mg/dL Imaging Data Abdominal x-ray: Attestation: I have reviewed the pertinent imaging results. Radiologist's impression: ITS Impressions Abdomen X-Ray 02/10/25 18:15 IMPRESSION: Moderate burden of stool in proximal colon Impression dictated by: Reynaldo Carlos M.D. 02/10/2025 6:58 PM Dictation Location: [id number] Electronically authenticated by: [id number] Y Date: 02/10/2025 18:58 Discharge Plan Discharge Chief Complaint: Abdominal Pain Clinical Impression: Constipation Patient Disposition: Home, Self-Care Time of Disposition Decision: 19:45 Condition: Good Mode of Transportation: Private Vehicle Prescriptions / Home Meds: New docusate sodium [Colace] 100 mg capsule 100 mg PO BID Qty: 10 0RF No Action furosemide 40 mg tablet 40 mg PO DAILY labetalol 200 mg tablet 200 mg PO TID lisinopril 10 mg tablet 10 mg PO DAILY Print Language: [place] Instructions: Constipation (DC) Referrals: LAUREANO LINDER [Primary Care Provider, Family Practice] - 1 week Discharge Date/Time: 02/10/25 20:46
[2025-02-10 18:36] LABS: Hematocrit 42.3 % (42.0-54.0); Hemoglobin 14.6 g/dL (14.0-18.0); Immature Granulocytes Abs Auto 0.03 10^3/uL (0.00-0.03); Immature Granulocytes Pct Auto 0.3 % (0.0-0.5); Lymphocytes Absolute Auto 1.5 10^3/uL (1.2-3.8); Mean Corpuscular HGB Conc 34.5 g/dL (29.9-35.2); Mean Corpuscular Hemoglobin 31.7 pg (25.9-34.0); Mean Corpuscular Volume 92.0 fL (80.0-94.0); Platelet Count 264 10^3/uL (150-450); Red Blood Count 4.60 10^6/uL (4.70-6.10); White Blood Count 8.8 10^3/uL (4.0-11.0)
[2025-02-10 18:44] LABS: Anion Gap 15.3; Blood Urea Nitrogen 24.0 mg/dL (7.0-18.0); Calcium 8.7 mg/dL (8.5-10.1); Carbon Dioxide 24.7 mmol/L (21.0-32.0); Chloride 103 mmol/L (98-107); Estimated GFR (African America >60 (>=60 mL/min/1.73m^2); Estimated GFR (Non-African Ame >60 (>=60 mL/min/1.73m^2); Glucose 108 mg/dL (74-106); Potassium 4.0 mmol/L (3.5-5.1); Sodium 139 mmol/L (136-145)
[2025-02-10] MEDS: 0.9 % SODIUM CHLORIDE 1,000 ML 1000 ML IV (18:44)
[2025-02-10 20:44] VITALS: BP 120/85; PULSE 78; O2SAT 96
== END 2025-02-10 20:46 | disposition home or self-care (01) ==
PROVIDERS: Physician Assistant; Emergency Provider Emergency Medicine; Family Provider Internal Medicine Interventional Cardiology; PCP Family Medicine
DX: K59.00 Constipation, unspecified (principal)
CPT/HCPCS: 36415; 74018; 80048; 85025; 99285

== ENCOUNTER 2025-02-17 15:54 | Inpatient (IN) | payer OTHER, SELFPAY ==
[2025-02-17] VITALS (15 sets, daily range): BP systolic 92–110; BP diastolic 70–86; PULSE 51–160; TEMP 36.6–36.8; O2SAT 91–100; BMI 38.0; BMI 37.9
--- NOTE | 2025-02-17 16:14 | CT_ITS ---
The [address] [address] Patient Name: LINDSAY TORRES MRN: [id number] date: 1965 Sex: M Assigned Patient Location: ER Current Patient Location: ER Accession/Order Number: [id number] Exam Date: 02/17/2025 16:56 Report Date: 02/17/2025 17:01 At the request of: PRATIBHA BURKETT MD Procedure: CT abdomen pelvis wo con CT Abdomen and Pelvis withoutcontrast TECHNIQUE: Axial imaging with 2-D reconstruction. . The CT exam was performed using one or more the following dose reduction techniques: Automated exposure control, adjustment of the MA and/or Kv according to patient size, or use of the iterative reconstruction technique. COMPARISON: None History: Bloated. LIMITATIONS: None LOWER THORAX moderate layering low-density pleural effusions. Basilar atelectasis. Trace pericardial effusion. LIVER: Unremarkable GALLBLADDER: Cholelithiasis. BILE DUCTS: No dilatation SPLEEN: Unremarkable PANCREAS: Unremarkable ADRENAL GLANDS: Unremarkable KIDNEYS:Unremarkable AORTA: No abdominal aortic aneurysm identified. RETROPERITONEUM: No significant retroperitoneal abnormalities identified. MESENTERY:A benign mesenteric calcifications. Minor interstitial changes. STOMACH:Gastric surgery changes. SMALL BOWEL: The small bowel loops are nondistended. APPENDIX: The appendix is normal. COLON: Unremarkable URINARY BLADDER: Urinary bladder is unremarkable. REPRODUCTIVE SYSTEM: Reproductive structures are unremarkable. PNEUMOPERITONEUM: None PERITONEAL FLUID:Small volume low density ascites. Hepatic, right colic gutter and pelvis. BONY STRUCTURES: Degenerative change. Mild scoliosis. ABDOMINAL WALL: Anasarca CT/CT abdomen pelvis wo con IMPRESSION: Small-volume low-density ascites. No bowel obstruction. Anasarca. Moderate low-density layering pleural effusions. Impression dictated by: Reynaldo Carlos M.D. 02/17/2025 5:01 PM [facility]ictation [facility] Electronically authenticated by: [id number] Y Date: 02/17/2025 17:01
--- OUTSIDE RECORDS SUMMARY | 2025-02-17 17:07 | XMS_ITS | Clinical Summary ---
Author Organization [facility] tem Address [id number] [address] [place] [address] Care Team Providers Care Transportation Refrigeration Technician Name Role Phone Jalen Echeverria DO Primary Care Provider [phone] Social History Tobacco Use Types Packs/Day Years [...] on file Insurance [employer] Care Teams Transportation Refrigeration Technician Relationship Specialty Start Date End Date Jalen Echeverria DO PCP - General Family Medicine 05/18/19
--- NOTE | 2025-02-17 17:14 | XR_ITS ---
[address] [address] Patient Name: LINDSAY TORRES MRN: [id number] date: 1965 Sex: M Assigned Patient Location: ER Current Patient Location: ER Accession/Order Number: [id number] Exam Date: 02/17/2025 17:56 Report Date: 02/17/2025 17:58 At the request of: PRATIBHA BURKETT MD Procedure: XR chest 1V Plain film chest Single view HISTORY: Follow-up assessment. Pleural effusion COMPARISON: None FINDINGS: SUPPORT DEVICES: None POSTSURGICAL CHANGES: None HEART: Cardiomegaly PULMONARY CRISTIAN: Hilar vascular prominence MEDIASTINUM: Unremarkable LUNGS AND PLEURA: Small pleural effusions. Mild interstitial changes. No pneumothorax BONY STRUCTURES: Intact ADDITIONAL FINDINGS None XR/XR chest 1V IMPRESSION: Cardiomegaly with hilar congestion. Small pleural effusions. Impression dictated by: Reynaldo Carlos M.D. 02/17/2025 5:58 PM Dictation Location: [place] [address] Electronically authenticated by: [id number] Y Date: 02/17/2025 17:58
--- NOTE | 2025-02-17 17:14 | ECG_ITS ---
The [facility] Test Date: 2025-02-17 Pat Name: LINDSAY TORRES Department: Room: - Gender: Male Implementation Services Analyst: : 1965 Requested By: [id number] Order Number: [id number] Reading MD: CARLOS BUCK M.D. Measurements Intervals [place] Rate: 155 P: -[id number] MS: -[id number] QRS: -67 QRSD: 176 T: 129 QT: 368 QTc: 455 Interpretive Statements 00030 Atrial fibrillation with rapid ventricular response with aberrant conduction, or ventricular premature complexes 2550 Left bundle branch block 7200 Abnormal left axis deviation 0102 ARTIFACT PRESENT 9150 abnormal ECG No previous ECG available for comparison Electronically Signed On 02-17-2025 18:47:40 EDT by CARLOS BUCK M.D.
--- OUTSIDE RECORDS SUMMARY | 2025-02-17 17:22 | XMS_ITS | CCD ---
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] Onset: 05-30-2021 Episodic Other skin disorders (3 sources) Localized swelling, mass and lump, head; Translations: [LOCALIZED SWELLING MASS AND LUMP HEAD] Onset: 05-21-2021 Episodic Results Test Name Value Interpretation Reference Range Facil ity Lab - Other Lab [facility] - Other Lab Results [id number]24 Follow-up visit [id number] Lindsay Pinto 1965 M Date Provider Department Center 06/01/2024 JOE GIBBONS CARD [facility] Family History Problem Relation Age of Onset Hypertension Mother Cancer Father Coronary artery disease Father Hypertension Father Family Status - Relation Status Age at Mother Father Level of Service:20117 [place] OFFICE/OUTPATIENT ESTABLISHED LOW MDM 20 MIN Normal [facility] Lab - Other Lab [facility] - Other Lab Results [id number]#1 .[facility] 05-05-2024 Patient Handout [id number] [facility] [id number] [facility] 06-05-2023 Follow-up visit [id number] Lindsay Pinto 1965 Date Provider Department Center 06/05/2023 EC REYES [facility] Family History Problem Relation Age of Onset Hypertension Mother Cancer Father Coronary artery disease Father Hypertension Father Family Status - Relation Status Age at Mother Father Level of Service:93781 [place] OFFICE/OUTPATIENT ESTABLISHED MOD MDM 30-39 MIN Reason for Visit and Comments: Hypertension [617672] Normal [facility] CBC AUTO DIFFon 05-09-2022 BASO # 0.0 103/ul Normal 0.0-0.1 [facility] Comment on above: Performed By: #### C BC #### [facility] [address] [address] [address] Anny Corcoran Basophils/100 WBC (Bld) 0.4 % Normal 0.2-2.0 [facility] Comment on above: Performed By: #### C BC #### [facility] [address] [address] [address] Anny Corcoran EO # 0.1 103/ul Normal 0.0-0.7 [facility] Comment on above: Performed By: #### C BC #### [facility] [address] [place] [address] Dr. Anny Corcoran Eosinophils/100 WBC (Bld) 1.5 % Normal 0.9-7.0 [facility] Comment on above: Performed By: #### C BC #### [facility] [address] [place] [address] Dr. Anny Corcoran Erythrocyte distribution width (RBC) [Ratio] 14.1 % Normal 11.0-15.0 [facility] Comment on above: Performed By: #### C BC #### [facility] [address] [place] [address] Dr. Anny Corcoran Hematocrit (Bld) [Volume fraction] 37.6 % Critically low 42.0-54.0 [facility] Comment on above: Performed By: #### C BC #### [facility] [address] [place] [address] Dr. Anny Corcoran Hemoglobin (Bld) [Mass/Vol] 12.9 g/dL Critically low 14.0-18.0 [facility] Comment on above: Performed By: #### C BC #### [facility] [address] [place] [address] Dr. Anny Corcoran IG # 0.01 10e3/ul Normal 0.00-0.03 [facility] Comment on above: Performed By: #### C BC #### [facility] [address] [place] [address] Dr. Anny Corcoran IG % 0.2 % Normal 0.0-0.5 [facility] Comment on above: Performed By: #### C BC #### [facility] [address] [place] [address] Dr. Anny Corcoran LYMPH # 1.1 103/ul Critically low 1.2-3.8 [facility] Comment on above: Performed By: #### C BC #### [facility] [address] [place] [address] Dr. Anny Corcoran Lymphocytes/100 WBC (Bld) 21.8 % Normal 20.5-60.0 [facility] Comment on above: Performed By: #### C BC #### [facility] [address] [place] [address] Dr. Anny Corcoran MANUAL DIFF REQ NO Normal [facility] Comment on above: Performed By: #### C BC #### [facility] [address] [place] [address] Dr. Anny Corcoran MCH (RBC) [Entitic mass] 31.2 pg Normal 25.9-34.0 [facility] Comment on above: Performed By: #### C BC #### [facility] [address] [place] [address] Dr. Anny Corcoran MCHC (RBC) [Mass/Vol] 34.3 g/dL Normal 29.9-35.2 [facility] Comment on above: Performed By: #### C BC #### [facility] [address] [place] [address] Dr. Anny Corcoran MCV (RBC) [Entitic vol] 90.8 fL Normal 80.0-94.0 [facility] Comment on above: Performed By: #### C BC #### [facility] [address] [place] [address] Dr. Anny Corcoran MONO # 0.4 103/ul Normal 0.3-0.8 [facility] Comment on above: Performed By: #### C BC #### [facility] [address] [place] [address] Dr. Anny Corcoran Monocytes/100 WBC (Bld) 8.5 % Normal 1.7-12.0 [facility] Comment on above: Performed By: #### C BC #### [facility] [address] [place] [address] Dr. Anny Corcoran NEUT # 3.5 103/ul Normal 1.4-6.5 [facility] Comment on above: Performed By: #### C BC #### [facility] [address] [address] [address] Anny Corcoran Neutrophils/100 WBC (Bld) 67.6 % Normal 43.0-75.0 [facility] Comment on above: Performed By: #### C BC #### [facility] [address] [address] [address] Anny Corcoran Platelet mean volume (Bld) [Entitic vol] 9.4 fL Critically low 9.5-13.5 [facility] Comment on above: Performed By: #### C BC #### [facility] [address] [address] [address] Anny Corcoran PLT 209 103/ul Normal 150-450 [facility] Comment on above: Performed By: #### C BC #### [facility] [address] [place] [address] Dr. Anny Corcoran RBC 4.14 106/ul Critically low 4.70-6.10 [facility] Comment on above: Performed By: #### C BC #### [facility] [address] [place] [address] Dr. Anny Corcoran WBC 5.2 103/ul Normal 4.0-11.0 [facility] Comment on above: Performed By: #### C BC #### [facility] [address] [place] [address] Dr. Anny Corcoran LIPID PROFILEon 05-09-2022 CHOL-HDL RATIO NORM SEE BELOW Normal [facility] Comment on above: Result Comment: 3.3 - 4.4 LOW RISK 4.4 - 7.1 AVERAGE RISK 7.1 - 11.0 MODERATE RISK >11.0 HIGH RISK Performed By: #### L IPID, CMP #### [facility] [address] [place] [address] Dr. Anny Corcoran Cholesterol [Mass/Vol] 103 mg/dL Normal <=200 [facility] Comment on above: Performed By: #### L IPID, CMP #### [facility] [address] [address] [address] Anny Corcoran Cholesterol in HDL [Mass/Vol] 54 mg/dL Normal 40-60 [facility] Comment on above: Performed By: #### L IPID, CMP #### [facility] [address] [address] [address] Anny Corcoran Cholesterol in LDL [Mass/Vol] 43.8 mg/dL Normal [facility] Comment on above: Performed By: #### L IPID, CMP #### [facility] [address] [address] [address] Anny Corcoran Cholesterol.total/ Cholesterol in HDL [Mass ratio] 1.9 {ratio} Normal [facility] Comment on above: Performed By: #### L IPID, CMP #### [facility] [address] [address] [address] Anny Corcoran HDL NORMAL > or = 60 mg/dl - LOW CARDIOVASCULAR RISK <40 mg/dl - HIGH CARDIOVASCULAR RISK Normal [facility] Comment on above: Performed By: #### L IPID, CMP #### [facility] [address] [address] [address] Anny Corcoran LDL CALC NORMAL SEE BELOW Normal [facility] Comment on above: Result Comment: <100 mg/dl OPTIMAL 100 - 129 mg/dl NEAR OR ABOVE OPTIMAL 130 - 159 mg/dl BORDERLINE HIGH 160 - 189 mg/dl HIGH >190 mg/dl VERY HIGH Performed By: #### L IPID, CMP #### [facility] [address] [place] [address] Dr. Anny Corcoran Triglyceride [Mass/Vol] 26 mg/dL Normal <=150 [facility] Comment on above: Performed By: #### L IPID, CMP #### [facility] [address] [place] [address] Dr. Anny Corcoran VLDL CALC 5.2 mg/dL Normal [facility] Comment on above: Performed By: #### L IPID, CMP #### [facility] [address] [place] [address] Dr. Anny Corcoran PROF 14(COMP METB)on 022 Albumin [Mass/Vol] 4.0 g/dL Normal 3.4-5.0 [facility] Comment on above: Performed By: #### L IPID, CMP #### [facility] [address] [address] [address] Anny Corcoran Albumin/Globulin [Mass ratio] 1.4 {ratio} Normal [facility] Comment on above: Performed By: #### L IPID, CMP #### [facility] [address] [address] [address] Anny Corcoran ALP [Catalytic activity/Vol] 106 U/L Normal 46-116 [facility] Comment on above: Performed By: #### L IPID, CMP #### [facility] [address] [address] [address] Anny Corcoran ALT [Catalytic activity/Vol] 28 U/L Normal 16-63 [facility] Comment on above: Performed By: #### L IPID, CMP #### [facility] [address] [address] [address] Anny Corcoran Anion gap [Moles/Vol] 7.3 mmol/L Normal [facility] Comment on above: Performed By: #### L IPID, CMP #### [facility] [address] [address] [address] Anny Corcoran AST [Catalytic activity/Vol] 23 U/L Normal 15-37 [facility] Comment on above: Performed By: #### L IPID, CMP #### [facility] [address] [address] [address] Anny Corcoran Bilirubin [Mass/Vol] 2.7 mg/dL Critically high 0.2-1.0 [facility] Comment on above: Performed By: #### L IPID, CMP #### [facility] [address] [address] [address] Anny Corcoran Calcium [Mass/Vol] 9.0 mg/dL Normal 8.5-10.1 [facility] Comment on above: Performed By: #### L IPID, CMP #### [facility] [address] [address] [address] Anny Corcoran Chloride [Moles/Vol] 104 mmol/L Normal 98-107 [facility] Comment on above: Performed By: #### L IPID, CMP #### [facility] [address] [address] [address] Anny Corcoran CO2 [Moles/Vol] 32.5 mmol/L Critically high 21.0-32.0 [facility] Comment on above: Performed By: #### L IPID, CMP #### [facility] [address] [address] [address] Anny Corcoran Creatinine [Mass/Vol] 0.78 mg/dL Normal 0.70-1.30 [facility] Comment on above: Performed By: #### L IPID, CMP #### [facility] [address] [address] [address] Anny Corcoran EGFR-AF ANGUILLAN >60 Normal >=60 [facility] Comment on above: Performed By: #### L IPID, CMP #### [facility] [address] [address] [address] Anny Corcoran EGFR-NON AF ANGUILLAN >60 Normal >=60 [facility] Comment on above: Performed By: #### L IPID, CMP #### [facility] [address] [address] [address] Anny Corcoran Globulin (S) [Mass/Vol] 2.8 g/dL Normal [facility] Comment on above: Performed By: #### L IPID, CMP #### [facility] [address] [address] [address] Anny Corcoran Glucose [Mass/Vol] 86 mg/dL Normal 74-106 [facility] Comment on above: Performed By: #### L IPID, CMP #### [facility] [address] [address] [address] Anny Corcoran Potassium [Moles/Vol] 3.8 mmol/L Normal 3.5-5.1 [facility] Comment on above: Performed By: #### L IPID, CMP #### [facility] [address] [address] [address] Anny Corcoran Protein [Mass/Vol] 6.8 g/dL Normal 6.4-8.2 [facility] Comment on above: Performed By: #### L IPID, CMP #### [facility] [address] [address] [address] Anny Corcoran Sodium [Moles/Vol] 140 mmol/L Normal 136-145 [facility] Comment on above: Performed By: #### L IPID, CMP #### [facility] [address] [address] [address] Anny Corcoran Urea nitrogen [Mass/Vol] 19.0 mg/dL Critically high 7.0-18.0 [facility] Comment on above: Performed By: #### L IPID, CMP #### [facility] [address] [address] [address] Anny Corcoran Urea nitrogen/Creatinin e [Mass ratio] 24.4 mg/mg Normal [facility] Comment on above: Performed By: #### L IPID, CMP #### [facility] [address] [place] [address] Dr. Anny Corcoran LYME DISEASE AB, TOTAL AND I GM W/WB REFLon 06-01-2021 Lyme Disease Ab, Quant, IgM <0.80 Normal 0.00-0.79 [facility] Comment on above: Result Comment: Nega tive <0.80 Equivocal 0.80 - 1.19 Positive >1.19 . IgM levels may peak at 3-6 weeks post infection, then gradually decline. Performed By: #### L YMA #### [facility] [address] [place] [address] Dr. Anny Corcoran Lyme IgG/IgM Ab <0.91 Normal 0.00-0.90 [facility] Comment on above: Result Comment: Nega tive <0.91 Equivocal 0.91 - 1.09 Positive >1.09 Performed By: #### L YMA #### [facility] [address] [place] [address] HEAD WO CONon [...] by: CANDIS MENDEZ Date: 2021-05-21 12:48 Normal [facility] Encounters Encounter Date Encounter Type Care Provider Facility Start: 01-28-2025 ambulatory DO LAUREANO LINDER Faci lity:[facility] Start: 10-29-2024 End: 10-29-2024 ambulatory DO LAUREANO LINDER Facility:[facility] Start: 06-01-2024 End: 06-01-[address] [facility] Start: 04-30-2024 End: 04-30-2024 ambulatory LAUREANO LINDER Facility:[facility] Start: 06-05-2023 End: 06-05-2023 ambulatory [facility] Start: 06-05-2023 End: 06-05-2023 Encounter for general adult medical examination without abnormal findings [facility] Start: 05-14-2022 Encounter for genera l adult medical examination without abnormal findings DR LAUREANO LINDER [facility] Start: 05-09-2022 End: 05-10-[address] [...] above: Performed By: #### P SAD #### [facility] [address] [place], [place] [address] Dr. Anny Corcoran Payers Date Payer Category Payer Private Health Insurance [id number] 2012 Unknown [id number] 1965 Unknown [id number] 2.16.84 [id number] 1965 Unknown [id number] 2.16.84 [id number] 1965 Unknown [id number] 2.16.84 [id number] 1965 Unknown [id number] 2.16.8 [id number] 1965 Unknown [id number] 2.16.8 [id number] 1965 Unknown [id number] 2.16.8 [id number] Progress note 06-01-2024 Note Date & Type Note Facility 06-01-2024 Note Cardiovascular Medic ine [facility] SUBJECTIVE Patient here for 1 year [...] syndrome -He notes (more content not included)... [facility] Progress note 06-05-2023 Note Date & Type Note Facility 06-05-2023 Note Patient here for 1 y ear follow up hypertension, LVH, and aortic dilation. Had echo a few weeks ago. Doing very well, as he denies chest pain, palpitations, and SOB. Review of Systems Musculoskeletal: Positive for arthritis and joint pain. All other systems reviewed and are negative. [facility] Progress note 06-05-2023 Note Date & Type Note Facility 06-05-2023 Note Cardiovascular Medic [facility] SUBJECTIVE Chief Complaint Patient presents with [...] LVH, HTN, etc. (more content not included)... [facility] Summary Purpose Family History No Family History Records FoundNo Family History Records FoundNo Family History Records Found Advance Directives No Advanced Directives Records FoundNo Advanced Directives Records FoundNo Advanced Directives Records Found Additional Source Comments (unrecognized sect ion and content) No Status Records FoundNo Status Records FoundNo Status Records Found INFORMATION SOURCE (unrecogn ized section and content) DATE CREATED AUTHOR 05/14/2022 [facility] DATE CREATED AUTHOR AUTHOR'S ORGANIZ ATION 06/02/2024 [facility] DATE CREATED AUTHOR AUTHOR'S ORGANIZ ATION 01/31/2025 [facility] FOR RECORDS PERTAINING TO PATIENTS WHO [...] BE BASED ON THE PRIMARY CLINICAL RECORDS. [facility]. provides no warranty or guarantee of the accuracy or completeness of information in this document.
[2025-02-17] MEDS: METOPROLOL TARTRATE 5 MG/5 ML VIAL IVP (17:36)
[2025-02-17 17:45] LABS: Hematocrit 44.3 % (42.0-54.0); Hemoglobin 15.0 g/dL (14.0-18.0); Immature Granulocytes Abs Auto 0.03 10^3/uL (0.00-0.03); Immature Granulocytes Pct Auto 0.4 % (0.0-0.5); Lymphocytes Absolute Auto 1.4 10^3/uL (1.2-3.8); Mean Corpuscular HGB Conc 33.9 g/dL (29.9-35.2); Mean Corpuscular Hemoglobin 31.3 pg (25.9-34.0); Mean Corpuscular Volume 92.5 fL (80.0-94.0); Platelet Count 212 10^3/uL (150-450); Red Blood Count 4.79 10^6/uL (4.70-6.10); White Blood Count 8.2 10^3/uL (4.0-11.0)
--- NOTE | 2025-02-17 17:56 | ED_ITS ---
HPI HPI - General Adult General Chief complaint: Abdominal Pain Stated complaint: BLOATED Time Seen by Provider: 02/17/25 16:09 Source: patient Mode of arrival: walk-in Limitations: no limitations History of Present Illness HPI narrative: Patient initially came to us with a concern of bloating and possibly constipation, the patient mentioned that he has been feeling bloated and short of breath for the last few weeks he does not think this is new because he always has been short of breath because of his size, patient had undergone a bariatric surgery in 2019 and he lost 160 pounds and he is right now 113 kg He denies any history of any cardiac issue he has been following up with his bariatric surgery since 2019 Patient denies any nausea or vomiting but he had decreased p.o. intake for the last 2 days Apparently he has been having constipation and took some MiraLAX yesterday but today because he was bloated he told his bariatric surgery who told him to come over here to be evaluated for that The patient have no chest pain no nausea no vomiting no dizziness and no history of A-fib Related Data Home Medications ?Medication ?Instructions ?Recorded ?Confirmed furosemide 40 mg tablet 40 mg PO DAILY 02/10/2501/30 labetalol 200 mg tablet 200 mg PO TID 02/10/2502/17 lisinopril 10 mg tablet 10 mg PO DAILY 02/10/2501/30 Previous Rx's ?Medication ?Instructions ?Recorded docusate sodium 100 mg capsule 100 mg PO BID #10 caps 02/10/25 (Colace) Allergies Allergy/AdvReac Type Severity Reaction Status Date / Time No Known Drug Allergies Allergy Verified 02/10/25 17:59 Opioid HPI Opioid Management Most Recent Opioid Data: Last Pain Scale 1 Today, 16:00 Review of Systems ROS Status of ROS 10 or more systems reviewed and unremark able except as noted in history and below [facility] PFS Surgical History (Updated 02/10/25 @ 18:04 by Susana Lopez) H/O gastric bypass ?Z98.84 - Bariatric surgery status (ICD-10) Social History Little interest or pleasure in doing things: not at all Feeling down, depressed, or hopeless: not at all Exam Narrative Exam Narrative: Nurses notes and vital signs reviewed and patient is not hypoxic. General: Well-appearing and in no apparent distress. Skin: Warm, dry, no pallor noted. No rash. Head: Normocephalic, atraumatic. Neck: Supple, non-tender. Cardiovascular: Irregular rate and Rhythm without murmur, gallop or rub. Respiratory: No accessory muscle use or respiratory distress. Lungs are clear to auscultation, no wheezing, rales or rhonchi Chest Wall: no tenderness Back: No midline thoracic or lumbar vertebral tenderness. No CVA tenderness Musculoskeletal: normal ROM, no calf or popliteal tenderness, no lower extremity edema/swelling GI: Abdomen is soft, non-distended. Obese abdomen no tenderness on palpation Neurological: A&O x4. No cranial nerve dysfunction observed. No truncal ataxia. Moves all extremities. Sensation intact. Psychiatric: Cooperative and interactive. Normal mood and affect. Constitutional Vital Signs, click to edit/add: Last Vital Signs Temp 98.1 F 02/17/25 16:00 Pulse 104 H 02/17/25 18:20 Resp 25 H 02/17/25 18:20 BP 92/70 02/17/25 18:15 Pulse Ox 97 02/17/25 18:20 O2 Del Method Room Air 02/17/25 18:03 Course Vital Signs Vital signs: Vital Signs Temperature 98.1 F 02/17/25 16:00 Pulse Rate 51 L 02/17/25 16:00 Respiratory Rate 18 02/17/25 16:00 Blood Pressure 104/86 02/17/25 16:00 Pulse Oximetry 98 02/17/25 16:00 Oxygen Delivery Method Room Air 02/17/25 16:00 Temperature 98.1 F 02/17/25 16:00 Pulse Rate 104 H 02/17/25 18:20 Respiratory Rate 25 H 02/17/25 18:20 Blood Pressure 92/70 02/17/25 18:15 Pulse Oximetry 97 02/17/25 18:20 Oxygen Delivery Method Room Air 02/17/25 18:03 Medical Decision Making MDM Narrative Medical decision making narrative: The patient EKG showed that he had A-fib with RVR with a heart rate of 155 with a QRS that was widened The patient CBC showed no leukocytosis the chemistry was within normal but the BNP was elevated Chest x-ray showed mild effusion bilaterally and his CAT scan of the abdomen pelvis shows moderate bilateral effusion with a mild ascites The patient troponin was negative Initially we also treated him with Lopressor that was not effective then Cardizem started after discussing the case with Dr. Torre who agreed that the patient can be admitted here for further evaluation of the new diagnosis of A- fib Patient was given Cardizem 20 mg IV then started on the drip and he will be admitted under Dr. Meredith after discussing the case with him and the patient al so was provided by [facility] as per the recommendation of Dr. Meredith Lab Data Labs: Lab Results 02/17/25 Range/Units 17:26 WBC 8.2 (4.0-11.0) 10^3/uL RBC 4.79 (4.70-6.10) 10^6/uL Hgb 15.0 (14.0-18.0) g/dL Hct 44.3 (42.0-54.0) % MCV 92.5 (80.0-94.0) fL MCH 31.3 (25.9-34.0) pg MCHC 33.9 (29.9-35.2) g/dL RDW 14.9 (11.0-15.0) % Plt Count 212 (150-450) 10^3/uL MPV 11.9 (9.5-13.5) fL Neut % (Auto) 73.3 (43.0-75.0) % Lymph % (Auto) 16.7 L (20.5-60.0) % [place] % (Auto) 8.8 (1.7-12.0) % Eos % (Auto) 0.7 L (0.9-7.0) % Baso % (Auto) 0.1 L (0.2-2.0) % Neut # (Auto) 6.0 (1.4-6.5) 10^3/uL Lymph # (Auto) 1.4 (1.2-3.8) 10^3/uL [place] # (Auto) 0.7 (0.3-0.8) 10^3/uL Eos # (Auto) 0.1 (0.0-0.7) 10^3/uL Baso # (Auto) 0.0 (0.0-0.1) 10^3/uL Abs Immat Gran (auto) 0.03 (0.00-0.03) 10^3/uL Imm/Tot Granulo (auto) 0.4 (0.0-0.5) % Sodium 136 (136-145) mmol/L Potassium 4.6 (3.5-5.1) mmol/L Chloride 102 (98-107) mmol/L Carbon Dioxide 24.1 (21.0-32.0) mmol/L Anion Gap 14.5 BUN 26.0 H (7.0-18.0) mg/dL Creatinine 1.34 H (0.70-1.30) mg/dL Est GFR ( Amer) >60 (>=60 mL/min/1.73m^2) Est GFR (Non-Af Amer) 55 L (>=60 mL/min/1.73m^2) BUN/Creatinine Ratio 19.4 Glucose 102 (74-106) mg/dL Calcium 9.0 (8.5-10.1) mg/dL Total Bilirubin 4.3 H (0.2-1.0) mg/dL AST 39 H (15-37) U/L ALT 53 (16-63) U/L Alkaline Phosphatase 71 (46-116) U/L Troponin I High Sens 35.3 (4.0-76.1) pg/mL NT-Pro-B Natriuret Pep 5128.0 H* (<=900.0) pg/mL Total Protein 6.4 (6.4-8.2) g/dL Albumin 3.7 (3.4-5.0) g/dL Globulin 2.7 g/dL Albumin/Globulin Ratio 1.4 Discharge Plan Discharge Chief Complaint: Abdominal Pain Clinical Impression: Atrial fibrillation with rapid ventricular response, CHF exacerbation Patient Disposition: Admitted As Inpatient Time of Disposition Decision: 18:34
[2025-02-17 18:03] LABS: Albumin Globulin Ratio 1.4; Anion Gap 14.5; Globulin 2.7 g/dL
[2025-02-17 18:10] LABS: Alanine Aminotransferase 53 U/L (16-63); Albumin Level 3.7 g/dL (3.4-5.0); Alkaline Phosphatase 71 U/L (46-116); Aspartate Amino Transferase 39 U/L (15-37); Blood Urea Nitrogen 26.0 mg/dL (7.0-18.0); Calcium 9.0 mg/dL (8.5-10.1); Carbon Dioxide 24.1 mmol/L (21.0-32.0); Chloride 102 mmol/L (98-107); Estimated GFR (African America >60 (>=60 mL/min/1.73m^2); Estimated GFR (Non-African Ame 55 (>=60 mL/min/1.73m^2); Glucose 102 mg/dL (74-106); Potassium 4.6 mmol/L (3.5-5.1); Sodium 136 mmol/L (136-145); Total Protein 6.4 g/dL (6.4-8.2)
[2025-02-17] MEDS: DILTIAZEM HCL 25 MG/5 ML VIAL 20 MG IV (18:15)
[2025-02-17 18:20] LABS: NT Pro B Type Natriuretic Pept 5128.0 pg/mL (<=900.0)
[2025-02-17] MEDS: ENOXAPARIN SODIUM 120 MG/0.8 ML SYRINGE SUBQ (18:42)
--- NOTE | 2025-02-17 19:15 | ECG_ITS ---
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[id number] Requested By: [id number] Order Number: [id number] Reading MD: JOE LIGHT Measurements Intervals [place] Rate: 107 P: -[id number] NE: -[id number] QRS: 99 QRSD: 172 T: 250 QT: 392 QTc: 455 Interpretive Statements 62468 Atrial fibrillation with rapid ventricular response with aberrant conduction, or ventricular premature complexes 2330 Nonspecific intraventricular conduction block 7102 Moderate right axis deviation 9150 abnormal ECG Compared to ECG 02/17/2025 17:21:10 Right-axis deviation now present Left bundle-branch block no longer present Left-axis deviation no longer present Electronically Signed On 02-18-2025 16:40:21 EDT by JOE LIGHT
--- OUTSIDE RECORDS SUMMARY | 2025-02-17 20:22 | XMS_ITS | CCD ---
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] Onset: 05-30-2021 Episodic Other skin disorders (3 sources) Localized swelling, mass and lump, head; Translations: [LOCALIZED SWELLING MASS AND LUMP HEAD] Onset: 05-21-2021 Episodic Results Test Name Value Interpretation Reference Range Facil ity Lab - Other Lab [facility] - Other Lab Results [id number] 06-01-2024 Follow-up visit [id number] Lindsay Pinto 1965 M Date Provider Department Center 06/01/2024 JOE GIBBONS CARD [facility] Family History Problem Relation Age of Onset Hypertension Mother Cancer Father Coronary artery disease Father Hypertension Father Family Status - Relation Status Age at Mother Father Level of Service:25889 MO OFFICE/OUTPATIENT ESTABLISHED LOW MDM 20 MIN Normal [facility] Lab - Other Lab [facility] - Other Lab Results [id number]#1 .[facility] Patient Handouton 05-05-2024 Patient Handout [id number][facility] Hand[facility] [id number]#1.[facility] Office Visiton 06-05-2023 Follow-up visit [id number] Lindsay Pinto 1965 Date Provider Department Center 06/05/[address] REYES [facility] Family History Problem Relation Age of Onset Hypertension Mother Cancer Father Coronary artery disease Father Hypertension Father Family Status - Relation Status Age at Mother Father Level of Service:91984 MO OFFICE/OUTPATIENT ESTABLISHED MOD MDM 30-39 MIN Reason for Visit and Comments: Hypertension [305093] Normal [facility] CBC AUTO DIFFon 05-09-2022 BASO # 0.0 103/ul Normal 0.0-0.1 [facility] [place] Comment on above: Performed By: #### C BC #### [facility] [address] [address] [address] Anny Corcoran Basophils/100 WBC (Bld) 0.4 % Normal 0.2-2.0 [facility] [place] Comment on above: Performed By: #### C BC #### [facility] [address] [address] [address] Anny Corcoran EO # 0.1 103/ul Normal 0.0-0.7 [facility] [place] Comment on above: Performed By: #### C BC #### [facility] [address] [place] [address] Dr. Anny Corcoran Eosinophils/100 WBC (Bld) 1.5 % Normal 0.9-7.0 [facility] [place] Comment on above: Performed By: #### C BC #### [facility] [address] [place] [address] Dr. Anny Corcoran Erythrocyte distribution width (RBC) [Ratio] 14.1 % Normal 11.0-15.0 [facility] [place] Comment on above: Performed By: #### C BC #### [facility] [address] [place] [address] Dr. Anny Corcoran Hematocrit (Bld) [Volume fraction] 37.6 % Critically low 42.0-54.0 [facility] [place] Comment on above: Performed By: #### C BC #### [facility] [address] [place] [address] Dr. Anny Corcoran Hemoglobin (Bld) [Mass/Vol] 12.9 g/dL Critically low 14.0-18.0 [facility] [place] Comment on above: Performed By: #### C BC #### [facility] [address] [place] [address] Dr. Anny Corcoran IG # 0.01 10e3/ul Normal 0.00-0.03 [facility] [place] Comment on above: Performed By: #### C BC #### [facility] [address] [place] [address] Dr. Anny Corcoran IG % 0.2 % Normal 0.0-0.5 [facility] [place] Comment on above: Performed By: #### C BC #### [facility] [address] [place] [address] Dr. Anny Corcoran LYMPH # 1.1 103/ul Critically low 1.2-3.8 [facility] Comment on above: Performed By: #### C BC #### [facility] [address] [place] [address] Dr. Anny Corcoran Lymphocytes/100 WBC (Bld) 21.8 % Normal 20.5-60.0 [facility] [place] Comment on above: Performed By: #### C BC #### [facility] [address] [place] [address] Dr. Anny Corcoran MANUAL DIFF REQ NO Normal [facility] Comment on above: Performed By: #### C BC #### [facility] [address] [place] [address] Dr. Anny Corcoran MCH (RBC) [Entitic mass] 31.2 pg Normal 25.9-34.0 [facility] [place] Comment on above: Performed By: #### C BC #### [facility] [address] [place] [address] Dr. Anny Corcoran MCHC (RBC) [Mass/Vol] 34.3 g/dL Normal 29.9-35.2 [facility] [place] Comment on above: Performed By: #### C BC #### [facility] [address] [place] [address] Dr. Anny Corcoran MCV (RBC) [Entitic vol] 90.8 fL Normal 80.0-94.0 [facility] [place] Comment on above: Performed By: #### C BC #### [facility] [address] [place] [address] Dr. Anny Corcoran MONO # 0.4 103/ul Normal 0.3-0.8 [facility] Comment on above: Performed By: #### C BC #### [facility] [address] [place] [address] Dr. Anny Corcoran Monocytes/100 WBC (Bld) 8.5 % Normal 1.7-12.0 [facility] Comment on above: Performed By: #### C BC #### [facility] [address] [place] [address] Dr. Anny Corcoran NEUT # 3.5 103/ul Normal 1.4-6.5 [facility] Comment on above: Performed By: #### C BC #### [facility] [address] [address] [address] Anny Corcoran Neutrophils/100 WBC (Bld) 67.6 % Normal 43.0-75.0 [facility] [place] Comment on above: Performed By: #### C BC #### [facility] [address] [address] [address] Anny Corcoran Platelet mean volume (Bld) [Entitic vol] 9.4 fL Critically low 9.5-13.5 [facility] [place] Comment on above: Performed By: #### C BC #### [facility] [address] [address] [address] Anny Corcoran PLT 209 103/ul Normal 150-450 [facility] [place] Comment on above: Performed By: #### C BC #### [facility] [address] [place] [address] Dr. Anny Corcoran RBC 4.14 106/ul Critically low 4.70-6.10 [facility] Comment on above: Performed By: #### C BC #### [facility] [address] [place] [address] Dr. Anny Corcoran WBC 5.2 103/ul Normal 4.0-11.0 [facility] Comment on above: Performed By: #### C BC #### [facility] [address] [place] [address] Dr. Anny Corcoran LIPID PROFILEon 05-09-2022 CHOL-HDL RATIO NORM SEE BELOW Normal [facility] [place] Comment on above: Result Comment: 3.3 - 4.4 LOW RISK 4.4 - 7.1 AVERAGE RISK 7.1 - 11.0 MODERATE RISK >11.0 HIGH RISK Performed By: #### L IPID, CMP #### [facility] [address] [place] [address] Dr. Anny Corcoran Cholesterol [Mass/Vol] 103 mg/dL Normal <=200 [facility] Comment on above: Performed By: #### L IPID, CMP #### [facility] [address] [address] [address] Anny Corcoran Cholesterol in HDL [Mass/Vol] 54 mg/dL Normal 40-60 [facility] [place] Comment on above: Performed By: #### L IPID, CMP #### [facility] [address] [address] [address] Anny Corcoran Cholesterol in LDL [Mass/Vol] 43.8 mg/dL Normal [facility] [place] Comment on above: Performed By: #### L IPID, CMP #### [facility] [address] [address] [address] Anny Corcoran Cholesterol.total/ Cholesterol in HDL [Mass ratio] 1.9 {ratio} Normal [facility] [place] Comment on above: Performed By: #### L IPID, CMP #### [facility] [address] [address] [address] Anny Corcoran HDL NORMAL > or = 60 mg/dl - LOW CARDIOVASCULAR RISK <40 mg/dl - HIGH CARDIOVASCULAR RISK Normal [facility] [place] Comment on above: Performed By: #### L IPID, CMP #### [facility] [address] [address] [address] Anny Corcoran LDL CALC NORMAL SEE BELOW Normal [facility] Comment on above: Result Comment: <100 mg/dl OPTIMAL 100 - 129 mg/dl NEAR OR ABOVE OPTIMAL 130 - 159 mg/dl BORDERLINE HIGH 160 - 189 mg/dl HIGH >190 mg/dl VERY HIGH Performed By: #### L IPID, CMP #### [facility] [address] [place] [address] Dr. Anny Corcoran Triglyceride [Mass/Vol] 26 mg/dL Normal <=150 [facility] [place] Comment on above: Performed By: #### L IPID, CMP #### [facility] [address] [place] [address] Dr. Anny Corcoran VLDL CALC 5.2 mg/dL Normal [facility] [place] Comment on above: Performed By: #### L IPID, CMP #### [facility] [address] [place] [address] Dr. Anny Corcoran PROF 14(COMP METB)on 022 Albumin [Mass/Vol] 4.0 g/dL Normal 3.4-5.0 [facility] Comment on above: Performed By: #### L IPID, CMP #### [facility] [address] [address] [address] Anny Corcoran Albumin/Globulin [Mass ratio] 1.4 {ratio} Normal [facility] [place] Comment on above: Performed By: #### L IPID, CMP #### [facility] [address] [address] [address] Anny Corcoran ALP [Catalytic activity/Vol] 106 U/L Normal 46-116 [facility] [place] Comment on above: Performed By: #### L IPID, CMP #### [facility] [address] [address] [address] Anny Corcoran ALT [Catalytic activity/Vol] 28 U/L Normal 16-63 [facility] [place] Comment on above: Performed By: #### L IPID, CMP #### [facility] [address] [address] [address] Anny Corcoran Anion gap [Moles/Vol] 7.3 mmol/L Normal [facility] [place] Comment on above: Performed By: #### L IPID, CMP #### [facility] [address] [address] [address] Anny Corcoran AST [Catalytic activity/Vol] 23 U/L Normal 15-37 [facility] [place] Comment on above: Performed By: #### L IPID, CMP #### [facility] [address] [address] [address] Anny Corcoran Bilirubin [Mass/Vol] 2.7 mg/dL Critically high 0.2-1.0 [facility] [place] Comment on above: Performed By: #### L IPID, CMP #### [facility] [address] [address] [address] Anny Corcoran Calcium [Mass/Vol] 9.0 mg/dL Normal 8.5-10.1 [facility] Comment on above: Performed By: #### L IPID, CMP #### [facility] [address] [address] [address] Anny Corcoran Chloride [Moles/Vol] 104 mmol/L Normal 98-107 [facility] [place] Comment on above: Performed By: #### L IPID, CMP #### [facility] [address] [address] [address] Anny Corcoran CO2 [Moles/Vol] 32.5 mmol/L Critically high 21.0-32.0 [facility] [place] Comment on above: Performed By: #### L IPID, CMP #### [facility] [address] [address] [address] Anny Corcoran Creatinine [Mass/Vol] 0.78 mg/dL Normal 0.70-1.30 [facility] [place] Comment on above: Performed By: #### L IPID, CMP #### [facility] [address] [address] [address] Anny Corcoran EGFR-AF LEBANESE >60 Normal >=60 [facility] Comment on above: Performed By: #### L IPID, CMP #### [facility] [address] [address] [address] Anny Corcoran EGFR-NON AF LEBANESE >60 Normal >=60 [facility] [place] Comment on above: Performed By: #### L IPID, CMP #### [facility] [address] [address] [address] Anny Corcoran Globulin (S) [Mass/Vol] 2.8 g/dL Normal [facility] [place] Comment on above: Performed By: #### L IPID, CMP #### [facility] [address] [address] [address] Anny Corcoran Glucose [Mass/Vol] 86 mg/dL Normal 74-106 [facility] Comment on above: Performed By: #### L IPID, CMP #### [facility] [address] [address] [address] Anny Corcoran Potassium [Moles/Vol] 3.8 mmol/L Normal 3.5-5.1 [facility] Comment on above: Performed By: #### L IPID, CMP #### [facility] [address] [address] [address] Anny Corcoran Protein [Mass/Vol] 6.8 g/dL Normal 6.4-8.2 [facility] Comment on above: Performed By: #### L IPID, CMP #### [facility] [address] [address] [address] Anny Corcoran Sodium [Moles/Vol] 140 mmol/L Normal 136-145 [facility] Comment on above: Performed By: #### L IPID, CMP #### [facility] [address] [address] [address] Anny Corcoran Urea nitrogen [Mass/Vol] 19.0 mg/dL Critically high 7.0-18.0 [facility] [place] Comment on above: Performed By: #### L IPID, CMP #### [facility] [address] [address] [address] Anny Corcoran Urea nitrogen/Creatinin e [Mass ratio] 24.4 mg/mg Normal [facility] [place] Comment on above: Performed By: #### L IPID, CMP #### [facility] [address] [place] [address] Dr. Anny Corcoran LYME DISEASE AB, TOTAL AND I GM W/WB REFLon 06-01-2021 Lyme Disease Ab, Quant, IgM <0.80 Normal 0.00-0.79 [facility] [place] Comment on above: Result Comment: Nega tive <0.80 Equivocal 0.80 - 1.19 Positive >1.19 . IgM levels may peak at 3-6 weeks post infection, then gradually decline. Performed By: #### L YMA #### [facility] [address] [place] [address] Dr. Anny Corcoran Lyme IgG/IgM Ab <0.91 Normal 0.00-0.90 [facility] Comment on above: Result Comment: Nega tive <0.91 Equivocal 0.91 - 1.09 Positive >1.09 Performed By: #### L YMA #### [facility] [address] [place] [address] HEAD WO CONon [...] by: CANDIS MENDEZ Date: 2021-05-21 12:48 Normal [facility] [place] Encounters Encounter Date Encounter Type Care Provider Facility Start: 01-28-2025 ambulatory DO LAUREANO LINDER Faci lity:[facility] Start: 10-29-2024 End: 10-29-2024 ambulatory DO LAUREANO LINDER Facility:[facility] Start: 06-01-2024 End: 06-01-2024 ambulatory [facility] Start: 04-30-2024 End: 04-30-2024 ambulatory LAUREANO LINDER Facility:[facility] Start: 06-05-2023 End: 06-05-2023 ambulatory [facility] Start: 06-05-2023 End: 06-05-2023 Encounter for general adult medical examination without abnormal findings [facility] Start: 05-14-2022 Encounter for genera l adult medical examination without abnormal findings DR LAUREANO LINDER [facility] [place] Start: 05-09-2022 End: 05-10-[address] LAUREANO [...] above: Performed By: #### P SAD #### [facility] [address] [place], [place] [address] Dr. Anny Corcoran Payers Date Payer Category Payer Private Health Insurance [id number] 2012 Unknown [id number] 1965 Unknown [id number] 2.16.84 [id number] 1965 Unknown [id number] 2.16.84 [id number] 1965 Unknown [id number] 2.16.84 [id number] 1965 Unknown [id number] 2.16.8 [id number] 1965 Unknown [id number] 2.16.8 [id number] 1965 Unknown [id number] 2.16.8 [id number] Progress note 06-01-2024 Note Date & Type Note Facility 06-01-2024 Note Cardiovascular Medic ine [facility] SUBJECTIVE Patient here for 1 year follow [...] syndrome -He notes (more content not included)... [facility] Progress note 06-05-2023 Note Date & Type Note Facility 06-05-2023 Note Patient here for 1 y ear follow up hypertension, LVH, and aortic dilation. Had echo a few weeks ago. Doing very well, as he denies chest pain, palpitations, and SOB. Review of Systems Musculoskeletal: Positive for arthritis and joint pain. All other systems reviewed and are negative. [facility] Progress note 06-05-2023 Note Date & Type Note Facility 06-05-2023 Note Cardiovascular Medic [facility] SUBJECTIVE Chief Complaint Patient presents with Hypertension [...] LVH, HTN, etc. (more content not included)... [facility] Summary Purpose Family History No Family History Records FoundNo Family History Records FoundNo Family History Records Found Advance Directives No Advanced Directives Records FoundNo Advanced Directives Records FoundNo Advanced Directives Records Found Additional Source Comments (unrecognized sect ion and content) No Status Records FoundNo Status Records FoundNo Status Records Found INFORMATION SOURCE (unrecogn ized section and content) DATE CREATED AUTHOR 05/14/2022 [facility] DATE CREATED AUTHOR AUTHOR'S ORGANIZ ATION 06/02/2024 [facility] DATE CREATED AUTHOR AUTHOR'S ORGANIZ ATION 01/31/2025 [facility] FOR RECORDS PERTAINING TO PATIENTS WHO ARE [...] CLINICAL RECORDS. [facility]. provides no warranty or guarantee of the accuracy or completeness of information in this document.
[2025-02-17] MEDS: DIGOXIN 500 MCG/2 ML AMPUL 250 MCG IV (20:35)
--- NOTE | 2025-02-17 20:43 | DIETREC ---
Recommend Heart Healthy diet, which includes 2-gram sodium restriction.
[2025-02-18] VITALS (57 sets, daily range): BP systolic 94–139; BP diastolic 61–96; PULSE 77–160; TEMP 36.6–37; O2SAT 88–100
[2025-02-18 05:31] LABS: Hematocrit 42.7 % (42.0-54.0); Hemoglobin 14.4 g/dL (14.0-18.0); Immature Granulocytes Abs Auto 0.03 10^3/uL (0.00-0.03); Immature Granulocytes Pct Auto 0.5 % (0.0-0.5); Lymphocytes Absolute Auto 1.5 10^3/uL (1.2-3.8); Mean Corpuscular HGB Conc 33.7 g/dL (29.9-35.2); Mean Corpuscular Hemoglobin 31.6 pg (25.9-34.0); Mean Corpuscular Volume 93.8 fL (80.0-94.0); Platelet Count 162 10^3/uL (150-450); Red Blood Count 4.55 10^6/uL (4.70-6.10); White Blood Count 6.0 10^3/uL (4.0-11.0)
[2025-02-18 06:03] LABS: Alanine Aminotransferase 44 U/L (16-63); Albumin Globulin Ratio 1.4; Albumin Level 3.4 g/dL (3.4-5.0); Alkaline Phosphatase 65 U/L (46-116); Anion Gap 14.1; Aspartate Amino Transferase 20 U/L (15-37); Blood Urea Nitrogen 23.0 mg/dL (7.0-18.0); Calcium 8.7 mg/dL (8.5-10.1); Carbon Dioxide 24.3 mmol/L (21.0-32.0); Chloride 104 mmol/L (98-107); Cholesterol 84 mg/dL (<=200); Estimated GFR (African America >60 (>=60 mL/min/1.73m^2); Estimated GFR (Non-African Ame >60 (>=60 mL/min/1.73m^2); Globulin 2.4 g/dL; Glucose 77 mg/dL (74-106); HDL Cholesterol 37 mg/dL (40-60); Magnesium 2.2 mg/dL (1.8-2.4); Potassium 3.4 mmol/L (3.5-5.1); Sodium 139 mmol/L (136-145); Thyroid Stimulating Hormone 3.444 uIU/mL (0.358-3.740); Total Protein 5.8 g/dL (6.4-8.2); Triglycerides 40 mg/dL (<=150); VLDL CHOLESTEROL 8.0 mg/dL
[2025-02-18] MEDS: METOPROLOL TARTRATE 5 MG/5 ML VIAL IVP (08:04)
[2025-02-18] MEDS: DIGOXIN 500 MCG/2 ML AMPUL 250 MCG IV (08:05)
--- NOTE | 2025-02-18 08:20 | CM.NOTE ---
Rounds made with Dr. Meredith, pt continues with tachycardia and on Cardizem drip. Dr. Meredith will adjust medications at this time. Dr. Meredith discussed parameters with Deborah MART on decreasing cardizem drip.
[2025-02-18] MEDS: METOPROLOL TARTRATE 25 MG TABLET 37.5 MG PO (09:25)
--- NOTE | 2025-02-18 11:25 | PM.HP ---
HPI H&P: HPI History of Present Illness Chief complaint: BLOATED, AFIB WITH RVR, CHF, NEW DX Narrative: Mr. Pinto is a 59-year-old gentleman who came in with abdominal bloating and constipation. He was found to have A-fib with RVR. Patient reported that he has had intermittent bloating and constipation since he had his gastric bypass 6 years ago. He denied any prior history of heart disease. No atrial fibrillation. No heart attack. Patient denies any chest pain or shortness of breath. Opioid HPI Opioid Management Most Recent Pain and Opioid Data: Last Pain Scale 1 02/17/25, 16:00 Last Pain Assessment 02/17/25, 21:00 Last ORT Total Score 0 02/17/25, 20:43 Last ORT Risk Category Low Risk 02/17/25, 20:43 Review of Systems ROS Status of ROS 10 or more systems reviewed and unremarkable except as noted in history and below PFSH PFSH Medical History (Updated 02/18/25 @ 11:26 by Whit Meredith MD) HTN (hypertension) ?I10 - Essential (primary) hypertension (ICD-10) Rotator cuff dysfunction ?M67.919 - Unspecified disorder of synovium and tendon, unspecified shoulder (ICD-10) Surgical History (Updated 02/10/25 @ 18:04 by Susana Lopez) H/O gastric bypass ?Z98.84 - Bariatric surgery status (ICD-10) Social History Highest level of school completed/degree received: high school graduate Little interest or pleasure in doing things: not at all Feeling down, depressed, or hopeless: not at all Do you think of yourself as: straight/heterosexual Gender Identity: male Meds Home Medications and Allergies Home Medications ?Medication ?Instructions ?Recorded ?Confirmed ?Type docusate sodium 100 mg capsule 100 mg PO BID #10 caps 02/10/25 02/17/25 Rx (Colace) furosemide 40 mg tablet 40 mg PO BID 02/10/25 02/18/25 History labetalol 200 mg tablet 200 mg PO TID 02/10/25 02/17/25 History lisinopril 10 mg tablet 10 mg PO DAILY 02/10/25 02/17/25 History linaclotide 145 mcg capsule 145 mcg PO DAILY 02/18/25 02/18/25 History (Linzess) Allergies Allergy/AdvReac Type Severity Reaction Status Date / Time No Known Drug Allergies Allergy Verified 02/10/25 17:59 Exam Narrative Exam Narrative: [pt is awake and alert. oriented to place, time and person HEENT: [place]ahan conjunctiva and NL buccal mucosa Neck: Supple, no tenderness Endocrine: No Thyromegaly. Vascular: No JVD or carotid bruit. Lymphatic: No cervical lymphadenopathy. Chest: CTA no DTP. Heart irregular rate and rhythm Abd: Soft, no tenderness, no rebound and no rigidity. Increase abd girth therefore clinically I could not exclude the possibility of intra abd mass or organomegaly. LE: No cyanosis or clubbing, no varices or edema. Neuro: A A O. Nl speech, comprehension and attention. Nl and symetrical motor and tone examination through out. []] Constitutional Vital Signs, click to edit/add: Last Vital Signs Temp 97.8 F 02/18/25 08:00 Pulse 99 H 02/18/25 11:10 Resp 27 H 02/18/25 11:10 BP 114/74 02/18/25 11:01 Pulse Ox 98 02/18/25 11:10 O2 Del Method Room Air 02/18/25 08:00 Results Labs Labs: Short CBC 02/17/25 02/18/25 Range/Units 17:26 05:05 WBC 8.2 6.0 (4.0-11.0) 10^3/uL Hgb 15.0 14.4 (14.0-18.0) g/dL Hct 44.3 42.7 (42.0-54.0) % Plt Count 212 162 (150-450) 10^3/uL BMP 02/17/25 02/18/25 17:26 05:05 Sodium 136 139 Potassium 4.6 3.4 L Chloride 102 104 Carbon Dioxide 24.1 24.3 BUN 26.0 H 23.0 H Creatinine 1.34 H 1.02 Glucose 102 77 Calcium 9.0 8.7 Liver Function 02/17/25 02/18/25 Range/Units 17:26 05:05 Total Bilirubin 4.3 H 3.9 H (0.2-1.0) mg/dL AST 39 H 20 (15-37) U/L ALT 53 44 (16-63) U/L Alkaline Phosphatase 71 65 (46-116) U/L Albumin 3.7 3.4 (3.4-5.0) g/dL Assessment and Plan Assessment and Plan (1) CHF exacerbation: (2) Atrial fibrillation with rapid ventricular response: (3) Constipation: (4) Liver disease: (5) Hypokalemia: Plan A-fib with RVR. Wide QRS at baseline. I started patient on Cardizem drip. Also given patient 2 doses of digoxin to slow his heart rate down given his borderline hypotension I started patient on beta-wil as well. Chads Vascor is 2. I started the patient on Xarelto Echocardiogram rule out valvular disease or cardiomyopathy. Cardiac consultation for further recommendation regarding rate control, rhythm control and anticoagulation Acute CHF Likely acute diastolic secondary to RVR Hold off on diuretics due to borderline hypotension. To control his heart rate Echocardiogram rule out cardiomyopathy or significant valvular disease. Initiate small dose diuretics once his heart rate is under control and his blood pressure improves. Suspect possible underlying CAD. So far his troponin is negative despite RVR. Recommend ischemic evaluation electively. Hypokalemia Potassium supplementation, check magnesium level Abdominal bloating and constipation, resolved Continue stool softeners and stimulants. May need to follow-up with GI postdischarge. No clinical evidence of acute surgical abdomen at this time Elevated bilirubin. Chronic. Had elevation of the bilirubin in March 2024. Liver appears to be unremarkable on CT imaging. Gallbladder shows there is some gallstones. Normal alk phos. no tenderness in the right upper quadrant Patient has a history of obesity status post gastric bypass. He may have GONZALEZ. Recommend ultrasound in a.m. Recommend elective cholecystectomy Recommend follow-up with hepatology Chronic medical conditions not listed above, incidental findings seen on labs and imaging. These would need to be addressed. Could be addressed when time and condition are appropriate. Could be addressed in the outpatient setting by PCP collaboration with other needed outpatient providers.
[2025-02-18] MEDS: POTASSIUM CHLORIDE 10 MEQ ER TABLET 40 MEQ PO (12:08)
[2025-02-18] MEDS: DOCUSATE SODIUM 100 MG CAPSULE PO (12:08)
[2025-02-18] MEDS: SENNOSIDES/DOCUSATE SODIUM 1 TAB TABLET PO (12:08)
--- NOTE | 2025-02-18 15:28 | PC.NURSE ---
Patient updated on being sent to [facility] room 3137 with transport's ETA of 1600. Patient updated family/friend on the phone while RN in room. Denies needs or questions at this time.
--- NOTE | 2025-02-18 15:42 | PC.NURSE ---
Report called to Maggi MART at [facility]. Care from admission to now explained. Maggi MART with [facility] denied any questions at this time regarding plan of care.
--- NOTE | 2025-02-18 16:08 | P.CACN_ITS ---
History of Present Illness History of Present Illness Consult date: 02/18/25 Requesting physician: Whit Meredith Chief complaint: BLOATED, AFIB WITH RVR, CHF, NEW DX Narrative: Patient is a 59 y/o M with known medical hx of AscAo aneurysm, LVH, HTN, obesity s/p gastric bypass surgery who presented to the ER with c/o worsening abdominal discomfort, SOB, and fatigue. He was found to be in a.fib with RVR - this is new for him. He was given IV digoxin along with started on a cardizem gtt for rate control. Cardiology was consulted for further assistance with management. He underwent an ECHO today which found his EF to be reduced to 15-20%. His last ECHO from 2022 showed his EF was preserved. Remote hx of EF to be 40% back in 2015. He has had no recent ischemic evaluation. He notes for the past 2-3 weeks he has had worsened AVALOS. He has had abdominal bloating/pants fitting tighter and he attributed this to his constipation issues. Denies any c/o CP, orthopnea, PND, LE edema, dizziness, syncope. Review of Systems ROS Status of ROS 10 or more systems reviewed and unremark able except as noted in history and below Constitutional Reports: fatigue Respiratory Reports: shortness of breath Gastrointestinal Reports: bloating PFSH PFSH Medical History (Updated 02/18/25 @ 11:26 by Whit Meredith MD) HTN (hypertension) ?I10 - Essential (primary) hypertension (ICD-10) Rotator cuff dysfunction ?M67.919 - Unspecified disorder of synovium and tendon, unspecified shoulder (ICD-10) Surgical History (Updated 02/10/25 @ 18:04 by Susana Lopez) H/O gastric bypass ?Z98.84 - Bariatric surgery status (ICD-10) Social History Highest level of school completed/degree received: high school graduate Little interest or pleasure in doing things: not at all Feeling down, depressed, or hopeless: not at all Do you think of yourself as: straight/heterosexual Gender Identity: male Meds Home Medications and Allergies Home Medications ?Medication ?Instructions ?Recorded ?Confirmed ?Type docusate sodium 100 mg capsule 100 mg PO BID #10 caps 02/10/25 02/17/25 Rx (Colace) furosemide 40 mg tablet 40 mg PO BID 02/10/25 History labetalol 200 mg tablet 200 mg PO TID 02/10/2502/17 History lisinopril 10 mg tablet 10 mg PO DAILY 02/10/2501/30 History linaclotide 145 mcg capsule 145 mcg PO DAILY 02/18/25 02/18/25 History (Linzess) Allergies Allergy/AdvReac Type Severity Reaction Status Date / Time No Known Drug Allergies Allergy Verified 02/10/25 17:59 Exam Constitutional Vital Signs, click to edit/add: Last Vital Signs Temp 98.6 F 02/18/25 15:54 Pulse 102 H 02/18/25 15:15 Resp 21 H 02/18/25 15:15 BP 127/80 02/18/25 15:00 Pulse Ox 99 02/18/25 12:10 O2 Del Method Room Air 02/18/25 12:00 Common normals: no apparent distress and oriented x3 HENMT Common normals: normocephalic and head/scalp atraumatic Eye Common normals: PERRL and EOMs intact bilaterally Neck & C-Spine Common normals: full ROM and supple General: JVD Respiratory Common normals: normal respiratory effort and no use of accessory muscles Auscultation: diminished lung sounds Cardio Rate: tachycardic Rhythm: abnormal rhythm irregularly irregular Heart sounds: S2 normal Peripheral pulses: radial pulses present and posterior tibial pulses present GI Common normals: Normal to inspection, nondistended, normoactive bowel sounds present Extremity Common normals: full ROM General: edema (trace bilat lower ext edema) Neuro Common normals: oriented x3, CN's II-XII intact bilaterally and moves all extremities Psych Common normals: thought process normal, cooperative and affect normal Results Labs and Meds Lab results: Cardiac Enzymes 02/17/25 02/18/25 Range/Units 17:26 05:05 AST 39 H 20 (15-37) U/L Lipids 02/18/25 Range/Units 05:05 Triglycerides 40 (<=150) mg/dL Cholesterol 84 (<=200) mg/dL HDL Cholesterol 37 L (40-60) mg/dL Cholesterol/HDL Ratio 2.3 CBC 02/17/25 02/18/25 Range/Units 17:26 05:05 WBC 8.2 6.0 (4.0-11.0) 10^3/uL RBC 4.79 4.55 L (4.70-6.10) 10^6/uL Hgb 15.0 14.4 (14.0-18.0) g/dL Hct 44.3 42.7 (42.0-54.0) % Plt Count 212 162 (150-450) 10^3/uL Neut # (Auto) 6.0 3.8 (1.4-6.5) 10^3/uL Lymph # (Auto) 1.4 1.5 (1.2-3.8) 10^3/uL [place] # (Auto) 0.7 0.6 (0.3-0.8) 10^3/uL Eos # (Auto) 0.1 0.1 (0.0-0.7) 10^3/uL Baso # (Auto) 0.0 0.0 (0.0-0.1) 10^3/uL Comprehensive Metabolic Panel 02/17/25 02/18/25 Range/Units 17:26 05:05 Sodium 136 139 (136-145) mmol/L Potassium 4.6 3.4 L (3.5-5.1) mmol/L Chloride 102 104 (98-107) mmol/L Carbon Dioxide 24.1 24.3 (21.0-32.0) mmol/L BUN 26.0 H 23.0 H (7.0-18.0) mg/dL Creatinine 1.34 H 1.02 (0.70-1.30) mg/dL Glucose 102 77 (74-106) mg/dL Calcium 9.0 8.7 (8.5-10.1) mg/dL AST 39 H 20 (15-37) U/L ALT 53 44 (16-63) U/L Alkaline Phosphatase 71 65 (46-116) U/L Total Protein 6.4 5.8 L (6.4-8.2) g/dL Albumin 3.7 3.4 (3.4-5.0) g/dL Intake and Output 02/18/25 02/18/25 02/18/25 07:59 15:59 23:59 Intake Total 125 / 525 91.250 / 91.250 Balance 125 / 525 91.250 / 91.250 Intake: IV 125 / 125 91.250 / 91.250 dilTIAZem HCL 125 mg In 0.9 % 125 / 125 91.250 / 91.250 Sodium Chloride 100 ml @ 10 MG/ HR 10 mls/hr IV TITR ONE Rx#: [id number] Imaging and Cardiology Echo: report reviewed (EF severely reduced to 15-20%, evidence of fluid overload, mild LVH, severe biatrial dilatation, mild LV dilatation with normal systolic function, mild TR, mod pulm HTN with RVSP 49, mod MR, small circumferential pericardial effusion) ECG results: image reviewed EKG Interpretation ECG shows: atrial fibrillation Assessment and Plan Assessment and Plan (1) CHF exacerbation: (2) Atrial fibrillation with rapid ventricular response: (3) Constipation: (4) Liver disease: (5) Hypokalemia: Plan #Acute on chronic systolic heart failure -NTproBNP 5128 -ECHO today showed EF severely reduced to 15-20%. Last ECHO from 2022 showed preserved EF. Remote hx of EF being 40% in 2016. No recent ischemic evaluation. -Due to acute drop in EF, recommend transfer to [facility] for further ischemic evaluation by coronary angiogram. Pt is agreeable with this plan. He will be transferred today. -GDMT: will plan to optimize his medications once at [facility] given pending transfer today. -ECHO today shows evidence of fluid overload - he will need IV diuresis, will need to be with caution given hypotension. #A.fib with RVR, new onset -Pt received a dose of SQ therapeutic lovenox last night and not scheduled for Xarelto until this evening. Will stop Xarelto and start heparin gtt for plans for coronary angiogram. -Currently has diltiazem gtt running, will stop given new finding of acute systolic heart failure as it has negative inotropic effects. -He received 2 doses of IV digoxin 250mcg. Will plan to give an additional 2 doses q6hrs if he is still at [facility] to complete dig loading. #HTN -Controlled with current low BPs -Medications will be adjusted to reflect HFrEF management at [facility] Discussed plan above with inpatient cardiology attending at [facility], Dr. Matthew, who is agreeable with plan. Updated hospitalist at [facility] as well, Dr. Meredith, who agrees with plan. Please let us know if any further questions or concerns. Mary Rosales APRN-[facility] Cardiovascular Medicine
--- NOTE | 2025-02-18 16:21 | PC.NURSE ---
[facility] left with pt at this time via stretcher connected to their molding associate. All belongings sent with pt and transport team.
--- NOTE | 2025-02-18 16:24 | PC.NURSE ---
Update provided to Maggi RN at [facility] with last VS, pt's ETA to [facility], as well as Cardizem drip being discontinued and unable to start the heparin drip before pt left. Maggi RN with [facility] denied any questions or concerns at this time.
--- NOTE | 2025-02-18 19:14 | CA_ITS ---
Patient Name: LINDSAY TORRES MR#: [id number] : 1965 Exam Date: 02/18/2025 Ordering Doctor: EMILY NGUYEN ECHOCARDIOGRAM REPORT PROCEDURE: CA ECHO DOPPLER COMPLETE INDICATIONS: A fib rvr COMPARISON: None. DESCRIPTION: COMPLETE ECHOCARDIOGRAM Real-time transthoracic echocardiography with 2D, M-mode, spectral and color flow Doppler performed. QUALITY: Technical quality was good. LEFT VENTRICLE: Moderate dilatation. Mild concentric left ventricular hypertrophy. LV EF: Global left ventricular systolic function is severely reduced; visually estimated ejection fraction is 15-20 %. D-shaped septum consistent with right ventricular pressure and/or volume overload DIASTOLIC: Not adequately assessed due to heart rhythm. ATRIAL SEPTUM: Bows to the right suggestive of elevated left atrial filling pressures. LEFT ATRIUM: Severe dilatation. RIGHT ATRIUM: Severe dilatation. RIGHT VENTRICLE: Mild dilatation. Normal right ventricular systolic function. TRICUSPID VALVE: Normal mobility and thickness. No stenosis with mild regurgitation. Moderate pulmonary hypertension. RVSP 49mmHg MITRAL VALVE: Normal mobility and thickness. No evidence of mitral valve stenosis. There is no mitral annular calcification. Moderate mitral regurgitation. AORTIC VALVE: Normal trileaflet appearance. Thickened aortic valve. Normal leaflet mobility. No evidence of aortic valve stenosis. Trivial aortic regurgitation. AORTIC ROOT: Normal diameter and appearance. Measuring 3.7cm. The ascending aorta measures 3.5cm. PULMONIC VALVE: Normal thickness and mobility. No stenosis. Trivial regurgitation. PERICARDIUM: Small circumferential pericardial effusion. No evidence of tamponade physiology by Doppler. IVC: Moderate dilatation. Measuring 2.7cm with no collapse. CONCLUSION: Global left ventricular systolic function is severely reduced; visually estimated ejection fraction is 15 to 20% D-shaped septum consistent with right ventricular pressure and/or volume overload The left ventricle is moderately dilated Mild left ventricular hypertrophy The right ventricle is mildly dilated with normal systolic function Severe biatrial dilatation Mild tricuspid regurgitation Moderate pulmonary hypertension; RVSP 49 mmHg Moderate mitral regurgitation Small circumferential pericardial effusion Adult Echocardiography Procedure Report Left Ventricle LVEDD (3.7 - 5.6 cm): 6.51 cm LVESD (2.2 - 4.0 cm): 6.06 cm LVIVS thickness (0.6 - 1.2 cm): 1.13 cm LVPW thickness (0.5 - 1.0 cm): 1.21 cm e': E - e': LVOT Max Gradient: 1.59 mm[Hg] LVOT Area (cm2): 0.63 m/s Peak Velocity (LVOT): 0.63 m/s Mean Velocity (LVOT): 0.41 m/s LVOT Diameter 2.59 cm Left Ventricular Ejection Fraction: 30.44 % Left Atrium LA Volume Index (2D A2C): 86.99 ml/m2 Left Atrium Systolic Dimension: 6.79 cm Mitral Valve MV E to A Ratio: MV Max Gradient: MV Mean Gradient: Mitral Valve A-Wave Peak Velocity: Mitral Valve E-Wave Peak Velocity: 0.72 m/s Cardiovascular Orifice Area: Right Ventricle RV Internal Diastolic Dimension: 4.40 cm Aorta AO Root Diam: 3.66 cm Ascending Ao Diam: 3.53 cm Aortic Valve AoV Area (Peak Jozef): 3.69 cm2, 3.70 cm2 AoV Area (VTI): 3.31 cm2, 3.36 cm2 Deceleration [place]: Pressure Half-Time: Peak Velocity(Antegrade Flow): 0.90 m/s, 0.90 m/s Peak Gradient(Antegrade Flow): 3.21 mm[Hg], 3.26 mm[Hg] Mean Velocity(Antegrade Flow): 0.66 m/s, 0.66 m/s Mean Gradient(Antegrade Flow): 1.89 mm[Hg], 1.97 mm[Hg] Velocity Time Integral: 14.98 cm, 15.40 cm Tricuspid Valve Peak Velocity (Regurgitant Flow): 1.83 m/s, 2.52 m/s, 2.90 m/s Peak Velocity: Pulmonic Valve Mean Gradient: 1.50 mm[Hg], 1.51 mm[Hg] Mean Velocity: 0.56 m/s, 0.56 m/s Peak Velocity: 0.88 m/s Peak Gradient: 3.22 mm[Hg], 2.94 mm[Hg] Right Atrium Right Atrium Systolic Pressure: 95.86 ml, 95.86 ml Dictated by: Megan Rosenberg M.D. on 02/18/2025 at 13:40 Approved by: Megan Rosenberg M.D. on 02/18/2025 at 13:44
--- NOTE | 2025-02-19 07:19 | PM.DS1 ---
DS: Providers Provider Date of admission: 02/17/25 20:12 Primary care physician: LAUREANO LINDRE Consults: 02/18/25 11:20 Consult to Cardiology Routine Reason for consultation: A-fib with RVR, CHF, wide QRS DS: Diagnosis Discharge Diagnosis (1) CHF exacerbation: (2) Atrial fibrillation with rapid ventricular response: (3) Constipation: (4) Liver disease: (5) Hypokalemia: (6) Cardiomyopathy: Plan As listed above and others that are not listed DS: Summary Hospital Course Hospital Course: Mr. Pinto came in with abdominal bloating and constipation and was found to have the following A-fib with RVR. Wide QRS at baseline. I started patient on Cardizem drip. Also given patient 2 doses of digoxin to slow his heart rate down given his borderline hypotension I started patient on beta-wil as well. Chads Vascor is 2. I started the patient on Xarelto Echocardiogram rule out valvular disease or cardiomyopathy. Echocardiogram confirmed evidence of severe cardiomyopathy. EF is 15 to 20% Patient was seen by cardiology team who recommended him to be transferred to [facility] for comprehensive cardiovascular care including ischemic Acute CHF Likely acute diastolic secondary to RVR Hold off on diuretics due to borderline hypotension. To control his heart rate Echocardiogram rule out valvular disease or cardiomyopathy. Echocardiogram confirmed evidence of severe cardiomyopathy. EF is 15 to 20% Patient was seen by cardiology team who recommended him to be transferred to [facility] for comprehensive cardiovascular care including ischemic Suspect possible underlying CAD. So far his troponin is negative despite RVR. Recommend ischemic evaluation electively. Patient was seen by cardiology team who recommended him to be transferred to [facility] for comprehensive ischemic evaluation Hypokalemia Potassium supplementation, check magnesium level Abdominal bloating and constipation, resolved Continue stool softeners and stimulants. May need to follow-up with GI postdischarge. No clinical evidence of acute surgical abdomen at this time Elevated bilirubin. Chronic. Had elevation of the bilirubin in March 2024. Liver appears to be unremarkable on CT imaging. Gallbladder shows there is some gallstones. Normal alk phos. no tenderness in the right upper quadrant Patient has a history of obesity status post gastric bypass. He may have GONZALEZ. Recommend ultrasound in a.m. unfortunately this was not completed due to patient transferring to [place] Recommend elective cholecystectomy Recommend follow-up with hepatology I hope that his elevated bilirubin will be investigated further in [place] by hepatology. Chronic medical conditions not listed above, incidental findings seen on labs and imaging. These would need to be addressed. Could be addressed when time and condition are appropriate. Could be addressed in the outpatient setting by PCP collaboration with other needed outpatient providers. Time Spent with Patient Time attestation: Total time spent providing and/or coordinating discharge services: Exam Constitutional Vital Signs, click to edit/add: Last Vital Signs Temp 98.6 F 02/18/25 15:54 Pulse 114 H 02/18/25 16:00 Resp 22 H 02/18/25 16:00 BP 127/83 02/18/25 16:00 Pulse Ox 98 02/18/25 15:54 O2 Del Method Room Air 02/18/25 15:54 Discharge Plan Discharge Disposition: [facility] Acute Care Hospital Discharge Date/Time: 02/18/25 16:22
== END 2025-02-18 16:22 | disposition short-term general hospital (02) | DRG 291 ==
LOC: ER 18:34 → MS 20:19
PROVIDERS: Admitting Provider Internal Medicine; Emergency Provider Emergency Medicine; Family Provider Internal Medicine Interventional Cardiology; PCP Family Medicine; Visit Provider Internal Medicine
DX: I11.0 Hypertensive heart disease with heart failure (principal); I50.23 Acute on chronic systolic (congestive) heart failure; I48.91 Unspecified atrial fibrillation; Z98.84 Bariatric surgery status; K59.00 Constipation, unspecified; K76.9 Liver disease, unspecified; E87.6 Hypokalemia; K80.20 Calculus of gallbladder without cholecystitis without obstruction; I95.9 Hypotension, unspecified; I42.9 Cardiomyopathy, unspecified; I25.10 Atherosclerotic heart disease of native coronary artery without angina pectoris
CPT/HCPCS: 36415; 71045; 74176; 80053; 80061; 83735; 83880; 84100; 84443; 84484; 85025; 85610; 85730; 93005; 93306; 93356; 96365; 96366; 96372; 96375; 96376; 99285; J1160; J1650

== ENCOUNTER 2025-03-10 16:25 | Emergency (ER) | payer OTHER, SELFPAY ==
--- OUTSIDE RECORDS SUMMARY | 2024-06-19 05:00 | XMS_ITS | Continuity of Care Document ---
Author Organization [facility] Address [address] [place] [address] Phone Care Team Providers Care Field Engineer Name Role Phone Dany De Jesus MD [...] Providers Copied on Encounter OFFICE/OUTPA TIENT VISIT, [facility], [address], [place], [place], [address] , [place] tel:[phone] [facility] No Information 4 Neal Saenz. [address], [place], [place], [address], [place]. tel:[phone] Referring Provider: Dany Arroyo, [address], [place], [address]. tel:[phone] OFFICE/OUTPA TIENT VISIT, [facility], [address], [place], [place], [address] , [place] tel:[phone] [facility] No Information 3 Neal Saenz. [address], [place], [place], [address], [place]. tel:[phone] Referring Provider: Dany Arroyo, [address], [place], [address]. tel:[phone] [facility], [address], [place], [place], [address] , [place] [phone] [facility] No Information 3 Neal Saenz. [address], [place], [place], [address], [place]. tel:[phone] Referring Provider: Dany Arroyo, [address], [place], [address]. tel:[phone] OFFICE/OUTPA TIENT VISIT, [facility], [address], [place], [place], [address] , [place] [phone] [facility] No Information 2 Neal Saenz. [address], [place], [place], [address], [place]. tel:[phone] Referring Provider: Dany Arroyo, [address], [place], [address]. tel:[phone] OFFICE/OUTPA TIENT VISIT, [facility], [address] [place] [address] [address], [place], [place], [address] , [place] tel:[phone] [facility] No Information 1 Neal Saenz. [address] [place] [address] [address], [place], [place], [address], [place]. tel:[phone] Referring Provider: Dany Arroyo, [address] [facility] [address], [place], [address]. tel:[phone] OFFICE/OUTPA TIENT VISIT, [facility], [address] [place] [address] B, [place], [place], [id number] , [place] tel:[phone] [facility] No Information 0 Neal Saenz. [address] [place] [address] Suite [facility], [place], [place], [address], [place]. tel:[phone] Referring Provider: Dany Arroyo, [address] [facility] [address] [facility], [place], [address]. tel:[phone] OFFICE/OUTPA TIENT VISIT, [facility], [address] [place] [address] [address], [place], [place], [address] , [place] [phone] [facility] No Information 0 Neal Saenz. [address] [facility] [address] [facility], [place], [place], [address], [place]. tel:[phone] Referring Provider: Dany Arroyo, [address] [facility] [address], [place], [address]. tel:[phone] PHONE E/M BY MARY ANN 11- [facility], [address] [place] [address] [address], [place], [place], [address] , [place] tel:[phone] [facility] No Information 0 Neal Saenz. [address] [facility] [address] [facility], [place], [place], [address], [place]. tel:[phone] Referring Provider: Dany Arroyo, [address], [place], [address]. tel:[phone] [place] [employer], [address] [place] [address] [address], [place], [place], [address] , [place] tel:[phone] [facility] No Information 0 Neal Saenz. [address], [place], [place], [address], [place]. tel:[phone] Referring Provider: Dany Arroyo, [address] [facility] [address], [place], [address]. tel:[phone] [facility], [address] [place] [address] [address], [place], [place], [address] , [place] tel:[phone] [facility] No Information 0 Neal Saenz. [address] [facility] [address], [place], [place], [address], [place]. tel:[phone] Referring Provider: Dany Arroyo, [address] [facility] [address], [place], [address]. tel:[phone] [facility], [address] [place] [address] [address], [place], [place], [address] , [place] tel:[phone] [facility] No Information 0 Neal Saenz. [address] [facility] [address], [place], [place], [address], [place]. tel:[phone] Referring Provider: Dany Arroyo, [address] [facility] [address], [place], [address]. tel:[phone] [facility], [address] [place] [address] [address], [place], [place], [address] , [place] tel:[phone] [facility] No Information 0 Dain Patterson. [address], [place], [address], [place]. tel:[phone] Referring Provider: Yesenia Siddiqui, [address] [place], [address]. tel:[phone] INITIAL INPATIENT CONSULT [facility], [address] [place] [address] [address], [place], [place], [address] , [place] tel: [phone] [facility] IP No Information 0 Lulu Luo. [address], [place], [place], [address], [place]. tel:[phone] Referring Provider: Valerio Lawson MD, [address], [place], [address]. tel:[phone] SUBSEQU[facility], [address] [place] [address] [address], [place], [place], [address] , [place] tel: [phone] [facility] IP No Information 0 Tiago Onofre. [address], [place], [address], [place]. tel:[phone] Referring Provider: Flakitoalexx Ordoñez, [address] [facility], [place], [address]. tel:[phone] INITIAL INPATIENT CONSULT [place] [facility], [address] [place] [address] [address], [place], [place], [address] , [place] tel: [phone] [facility] IP No Information 0 Tereza Chavis. [address], [place], [address], [place]. tel:[phone] Referring Provider: Palmira Starks, [address] [place], [address]. tel:[phone] [facility], [facility], [address] [place] [address] [address], [place], [place], [address] , [place] tel:[phone] [facility] [place] No Information 0 Marylu Downs. [address] [place] [address] [address], [place], [place], [address], [place]. tel:[phone] Referring Provider: Himanshu Siddiqui, [address] [facility], [address], [place], [address]. tel:[phone] [facility], [facility], [address], [place], [place], [address] , [place] tel: [phone] [facility] Skilled No Information 0 Pradeep Tomlin. [address], [place], [place], [address], [place]. tel:[phone] Referring Provider: Sada SCOTT, [address], [place], [address]. tel:[phone] [place] [address], [address] [place] [address] [address], [place], [place], [address] , [place] tel: [phone] [facility] IP No Information 9 Neal Saenz. [address] [facility] [address], [facility] [place], [address], [place]. [phone] Referring Provider: Dany Arroyo, [address] [facility] [address], [place], [address]. tel:[phone] [facility], [address] [place] [address] [address], [place], [place], [address] , [place] tel: [phone] [facility] IP No Information 9 Blaise Garcia. [address] [facility] [address], [facility] [place], [address], [place]. tel:[phone] Referring Provider: Radha Welsh, [address] [facility] [address], [place], [address]. tel:[phone] OFFICE/OUTPA TIENT VISIT, [facility], [address], [place], [place], [address] , [place] tel: [phone] [facility] No Information Neal Saenz. [address] [facility] [address], [place], [place], [address], [place]. tel:[phone] Referring Provider: Dany Arroyo, [address] [facility] [address], [place], [address]. tel:[phone] PSYCH DIAGNOSTIC EVALUATION [facility], [address] [place] [address] [address], [place], [place], [address] , [place] tel:[phone] [facility] No Information No Information OFFICE/OUTPA TIENT VISIT, [facility], [address], [place], [place], [address] , [place] tel:[phone] [facility] No Information Neal Saenz. [address] [facility] [address], [place], [place], [address], [place]. tel:[phone] Referring Provider: Dany Arroyo, [address] [facility] [address], [place], [address]. tel:[phone] Family History Family Member Type Diagnosis Age At Onset No Information Payers Payer name Insurance type Covered libertarian ID Brenden pacheco(s) [employer] CI [id number] Social History Type Description Quantity Date Captured [...]
--- OUTSIDE RECORDS SUMMARY | 2025-02-18 17:46 | XMS_ITS | Encounter Summary ---
Author Organization [facility] Address [address] [place] [address] Care Team Providers Care Shoe Repair Supervisor Name Role Phone Jalen Linder DO Primary Care Provider [phone] Reason for Referral * (Emergency) - Pending Review Specialty Diagnoses / Procedures Referred By Contac t Referred To Contact Procedures ECG 12 lead Carol Carter CNP [address] [place] [address] Phone: tel: fax: Referral ID Status Reason Start Date Expiration Date V isits Requested Visits Authorized [id number] Pending Review 03/04/2025 03/04/2026 1 1 * (Routine) - Pending Review Specialty Diagnoses / Procedures Referred By Contac t Referred To Contact Procedures ECG 12 lead Hugo Moulton MD [address] [place] [address] Phone: tel: fax: Referral ID Status Reason Start Date Expiration Date V isits Requested Visits Authorized [id number] Pending Review 03/03/2025 03/03/2026 1 1 * (Routine) - Pending Review Specialty Diagnoses / Procedures Referred By Contac t Referred To Contact Procedures ECG 12 lead Ruth Kramer MD [address] [place] [address] Phone: tel: fax: Referral ID Status Reason Start Date Expiration Date V isits Requested Visits Authorized [id number] Pending Review 03/03/2025 03/03/2026 1 1 * (Emergency) - Pending Review Specialty Diagnoses / Procedures Referred By Contac t Referred To Contact Procedures ECG 12 lead Ruth Kramer MD [address] [facility] [address] [place] [address] Phone: tel: fax: Referral ID Status Reason Start Date Expiration Date V isits Requested Visits Authorized [id number] Pending Review 02/23/2025 02/23/2026 1 1 * (Emergency) - Pending Review Specialty Diagnoses / Procedures Referred By Contac t Referred To Contact Procedures ECG 12 lead Suleiman Corcoran MD [address] [place] [phone] Phone: tel: fax: Referral ID Status Reason Start Date Expiration Date V isits Requested Visits Authorized [id number] Pending Review 02/22/2025 02/22/2026 1 1 * Consultation (Routine) - Pending Review Specialty Diagnoses / Procedures Referred By Contac t Referred To Contact Cardiopulmonary Rehab Diagnoses Chronic HFrEF (heart failure with reduced ejection fraction) ([facility]) Procedures [place] OFFICE/OUTPATIENT NEW [facility] MDM 60 MINUTES Dylan Matthew MD [address] [place] [address] Phone: tel: fax: Referral ID Status Reason Start Date Expiration Date Visits Requested Visits Authorized [id number] Pending Review Specialty Services Required 02/19/2025 02/19/2026 1 1 * Consultation (Routine) - Closed Specialty Diagnoses / Procedures Referred By Contact Referred To Contact Cardiopulmonary Rehab / CardioPulmonary Rehab Diagnoses Chronic HFrEF (heart failure with reduced ejection fraction) ([facility]/H[facility]) Procedures [place] OFFICE/OUTPATIENT NEW HIGH MDM 60 MINUTES Dylan Matthew MD [address] [place] [phone] Phone: tel: fax: [facility] [address] [place] [address] Phone: tel:[phone] fax:[phone] Referral ID Status Reason Start Date Expiration Date V isits Requested Visits Authorized [id number] Closed Specialty Services Required 02/19/2025 02/19/2026 1 1 * (Emergency) - Pending Review Specialty Diagnoses / Procedures Referred By Contac t Referred To Contact Procedures ECG 12 lead Dylan Matthew MD [address] [place] [phone] Phone: tel: fax: Referral ID Status Reason Start Date Expiration Date V isits Requested Visits Authorized [id number] Pending Review 02/19/2025 02/19/2026 1 1 * (Emergency) - Pending Review Specialty Diagnoses / Procedures Referred By Contac t Referred To Contact Procedures ECG 12 lead Carol Carter CNP [address] [place] [phone] Phone: tel: fax: Referral ID Status Reason Start Date Expiration Date V isits Requested Visits Authorized [id number] Pending Review 02/18/2025 02/18/2026 1 1 Reason for Visit * Auth/Cert (Routine) Specialty Diagnoses / Procedures Referred By Contac t Referred To Contact Diagnoses Acute systolic CHF (congestive heart failure) ([facility]) new onset a fib with RVR, acute systolic heart failure Procedures NO CODED SERVICE Gabriele Nick MD [address] [place] [address] Phone: tel: fax: [facility] [address] [place] [address] Phone: tel: fax: Referral ID Status Reason Start Date Expiration Date Visits Re quested Visits Authorized [id number] 1 1 Encounter Details Date Type Department Care Team (Late st Contact Info) Description 02/18/2025 5:46 PM EDT - 03/05/2025 5:57 PM EDT Hospital Encounter [facility] [address] [place] [phone] Gabriele Nick MD [address] [place] [phone] Kamran Del Valle MD [address] [place] [phone] Suleiman Corcoran MD [address] [place], [place] [phone] Ruth Kramer MD [address] [facility] [address] [facility] [place] [phone] A-fib (CMS/HCC) (Primary Dx); Acute systolic CHF (congestive heart failure) (CMS/HCC); Chronic HFrEF (heart failure with reduced ejection fraction) (CMS/HCC); Paroxysmal atrial fibrillation (CMS/HCC); Atrial fibrillation, unspecified type (CMS/HCC); Angina pectoris, unstable (CMS/HCC); Edema, unspecified type; S/P gastric bypass; Benign prostatic hyperplasia, unspecified whether lower urinary tract symptoms present Discharge Disposition: Home-Health Care [facility] (06) Social History Tobacco Use Types Packs/Day Years Used Date Smoking Tobacco: Never Smokeless Tobacco: Never Alcohol Use Standard Drinks/Week Comments Yes 0 (1 standard drink = 0.6 oz pur e alcohol) occasional [facility] Utilities Answer Date Recorded In the past 12 months has th e electric, gas, oil, or water company threatened to shut off services in your home? No 02/18/2025 Humiliation, Afraid, Rape, and Kick questionnair e Answer Date Recorded Within the last year, have y ou been afraid of your partner or ex-partner? No 02/18/2025 Emotionally Abused Not on file 02/18/2025 Physically Abused Not on file 02/18/2025 Sexually Abused Not on file 02/18/2025 Overall Financial Resource Strain (CARDIA) Answe r Date Recorded How hard is it for you to pa y for the very basics like food, housing, medical care, and heating? Not hard at all 02/18/2025 Transportation Answer Date Recorded In the past 12 months, has l ack of transportation kept you from medical appointments or from getting medications? No 02/18/2025 Lack of Transportation (Non-Medical) Not on file 02/18/2025 Housing Stability Vital Sign Answer Mukesh e Recorded In the last 12 months, was t here a time when you were not able to pay the mortgage or rent on time? No 02/18/2025 In the past 12 months, how m any times have you moved where you were living? 1 02/18/2025 At any time in the past 12 [facility], were you homeless or living in a nursing home (including now)? No 02/18/2025 Hunger Vital Sign Answer Date Recorded Within the past 12 months, y ou worried that your food would run out before you got the money to buy more. Never true 02/19/20 25 Ran Out of Food in the Last Year Not on file 02/18/2025 Sex and Gender Information Value Date Recorded Sex Assigned at Male 02/19/2025 9:32 AM EDT Legal Sex Male 10:20 PM EDT Gender Identity Male 02/19/2025 9:32 AM EDT Sexual Orientation Don't know 02/19/2025 10 :20 AM EDT documented as of this encounter Last Filed Vital Signs Vital Sign Reading Time Taken Comments Blood Pressure 110/80 03/05/2025 3:39 PM EDT Pulse 81 03/05/2025 3:39 PM EDT Temperature 36.3 C (97.3 F) 03/05/2025 3:39 PM EDT Respiratory Rate 18 03/05/2025 3:39 PM EDT Oxygen Saturation 98% 03/05/2025 3:39 PM EDT Inhaled Oxygen Concentration - - Weight 110 kg (241 lb 12.8 oz) 03/05/2025 5:38 A M EDT Height 172.7 cm (5' 7.99 ) 02/18/2025 6:37 PM ED T Body Mass Index 36.77 02/18/2025 6:37 PM EDT documented in this encounter Functional Status * Suicidal Ideation Question Answer Date of Assessment Author 1. Wish to be (Lifetime) No 02/18/2025 5:59 PM EDT Subha Burk RN 2. Non-Specific Active Suici mellissa Thoughts (Lifetime) No 02/18/2025 5:59 PM EDT Edel Burk RN documented as of this encounter Discharge Summaries * Ilda Perez MD - 03/05/2025 3:46 PM EDT Images from the original note were not included. Primary Pulmonary Service Discharge Summary Discharge Summary Final Discharge Diagnosis: Heart failure with reduced ejection fraction 20% Admission Diagnosis: Acute systolic CHF (congestive heart failure) (CMS/HCC) [I50.21] A-fib (CMS/[facility]) [I48.91] Hospital course: Lindsay Pinto is an 59 y.o. male who came from home with past medical history of hypertension, severe LVH, ENA, obesity s/p gastric bypass presents as a direct mission for [facility] with newonset A-fib as well as new onset systolic CHF. Patient initially presenting to [place] with bloating and constipation. He states that for the past few weeks he has been having abdominal swelling, bloating. He states associated shortness of breath with exertion. He denies chest pain, nausea, vomiting. He does state mild fatigue. He had a CXR completed showing cardiomegaly with vascular congestion. CT of the abdomen was completed showing ascites and anasarca. Labs show a mild GILLIAN and an elevatedBNP over 5000. EKG was completed showing A-fib with RVR which is new for the patient. He was given 2 doses of digoxin due to borderline hypotension and given a dose of Xarelto. Echocardiogram was completed showing a newly dropped EF of 15 to 20% with moderate pulmonary hypertension, moderate mitralvalve regurgitation and a small pericardial effusion. He was transferred [facility] for higher level of care. Patient does follow with cardiology outpatient for LVH. Per cardiology note, the echocardiogram performed on 05/14/2023 showed LVH with an improvement in EF to 50-55%. His latest echocardiogram did show a significant drop in EF. Cardiology is onboard inpatient for his new-onset atrial fibrillation with RVR. Patient was intially treated with a Cardizem drip; however, it was discontinue due to hypot ension. He has been treated with Toprol XL 100 mg BID and digoxin 250 mcg daily. He is scheduled for BERNARDINO and cardioversion. CT abdomen and pelvis was performed yesterday for ongoing lower abdominal pain. It did reveal The right and left rectus abdominal muscles are abnormal and contain hematomas. The left is larger in size. Hemoglobin did drop from 15.4 to 14.0, but most recent hemoglobin this morning is 14.5 with a hematocrit of 42.9. MICU was consulted after a rapid response was called around 7 AM for hypotension with a BP of 53/38. Received albumin and 250 mL LR and was transferred to MICU for hemodynamic stability. Underwent BERNARDINO with cardioversion. Blood pressure stabilized and sent out to the floor. For evaluation for possible coronary artery disease patient underwent CT coronary. Patient symptoms dramatically improved, hemodynamically stable. Was optimized on GDMT with Toprol 25 mg daily, spironolactone 12.5 mg daily and valsartan 20 mg daily. To follow-up with cardiology as an outpatient on the result of CTA coronaries and to consider adding SGLT2 if blood pressure and kidney function allows. Surgical, Invasive or Diagnostic Procedures Done During Admission: BERNARDINO Consultations During Admission: Cardiology Dear DO Linder James is advised to follow up with you within 1-2 weeks. Items to follow up in ambulatory setting: Follow-up with cardiology for CT coronaries result and optimizing medication for heart failure. Follow-up with: Cardiology Scheduled appointments: Future Appointments Date Time Provider Department Center 03/22/2025 1:30 PM Jeni Murray NP [facility] 03/23/2025 1:00 PM Prabhu Chavez MD [facility] Your medication list START taking these medications Instructions Last Dose Given Next Dose Due apixaban 5 mg tablet Commonly known as: Eliquis Take 1 tablet (5 mg) by mouth two times daily for 196 doses. aspirin 81 mg EC tablet Start taking on: March 06, 2025 Take 1 tablet (81 mg) by mouth in the morning for 96 doses. bisacodyl 5 mg EC tablet Commonly known as: Dulcolax Start taking on: March 06, 2025 Take 1 tablet (5 mg) by mouth in the morning for 91 doses. Do not crush, chew, or split. ferrous sulfate 325 (65 Fe) MG tablet metoprolol succinate XL 25 mg 24 hr tablet Commonly known as: Toprol-XL Start taking on: March 06, 2025 Take 3 tablets (75 mg) by mouth in the morning for 96 doses. Do not crush or chew. sennosides-docusate sodium 8.6-50 mg tablet Commonly known as: Gertrude-Colace Take 1 tablet by mouth at bedtime. spironolactone 25 mg tablet Commonly known as: Aldactone Start taking on: March 06, 2025 Take 0.5 tablets (12.5 mg) by mouth in the morning for 84 doses. Do not start before March 06, 2025. tamsulosin 0.4 mg 24 hr capsule Commonly known as: Flomax Start taking on: March 06, 2025 Take 1 capsule (0.4 mg) by mouth in the morning for 89 doses. valsartan 40 mg tablet Commonly known as: Diovan Start taking on: March 06, 2025 Take 0.5 tablets (20 mg) by mouth in the morning for 96 doses. CHANGE how you take these medications Instructions Last Dose Given Next Dose Due furosemide 20 mg tablet Commonly known as: Lasix What changed: medication strength how much to take when to take this Take 3 tablets (60 mg) by mouth in the morning. STOP taking these medications labetalol 200 mg tablet Commonly known as: Normodyne Linzess 145 mcg capsule Generic drug: linaCLOtide lisinopril 10 mg tablet Where to Get Your Medications These medications were sent to [facility] - [place], [place] - [address] [place] [address] [address] [place] [address], [facility] [address] apixaban 5 mg tablet aspirin 81 mg EC tablet bisacodyl 5 mg EC tablet furosemide 20 mg tablet metoprolol succinate XL 25 mg 24 hr tablet sennosides-docusate sodium 8.6-50 mg tablet spironolactone 25 mg tablet tamsulosin 0.4 mg 24 hr capsule valsartan 40 mg tablet Lindsay has no known allergies. Disposition: Home-Health Care [facility] (06) Discharge Condition: Good Code Status: Full Code Diagnostic Results Hematology: Results from last 7 days Lab Units 03/05/25 0500 03/04/25 0108 WBC AUTO 10*3/uL 7.45 5.41 HEMOGLOBIN g/dL 8.1* 7.7* HEMATOCRIT % 24.2* 22.6* MCV fL 90.0 89.7 PLATELETS AUTO 10*3/uL 399 359 Chemistry: Results from last 7 days Lab Units 03/05/25 0500 03/04/2510703/03/25 0346 SODIUM mmol/L 132* 132* 132* POTASSIUM mmol/L 3.9 3.8 4.0 CHLORIDE mmol/L 103 103 102 CO2 mmol/L 24 25 25 BUN mg/dL 13 15 12 CREATININE mg/dL 0.73 0.66* 0.69* GLUCOSE mg/dL 85 86 88 MAGNESIUM mg/dL 1.9 2.0 2.0 CALCIUM mg/dL 8.1* 7.7* 7.8* PHOSPHORUS mg/dL 3.0 2.7 2.9 Results from last 7 days Lab Units 03/05/25 0500 03/04/2510703/03/25 0346 AST U/L 16 17 23 ALT U/L 15 17 18 ALK PHOS U/L 60 55 55 BILIRUBIN TOTAL mg/dL 3.8* 3.7* 4.0* Test Results Pending At Discharge: Diet at the time of discharge: regular diet Nutrition Screen Activity: Patient currently has no discharge activity orders Objective Blood pressure 106/63, pulse 83, temperature 36.4 ??C (97.5 ??F), temperature source Temporal, resp. rate 16, height 1.727 m (5' 7.99 ), weight 110 kg (241 lb 12.8 oz), SpO2 100%. Cardiology: Normal rate, regular rhythm. Lungs: Clear to auscultation, no wheezes, rales or rhonchi, symmetric air entry. Abdomen: Soft, non tender, non distended. Extremities: No pitting edema. Physical Exam Constitutional: Appearance: Normal appearance. HENT: Head: Normocephalic and atraumatic. Right Ear: Tympanic membrane normal. Left Ear: Tympanic membrane normal. Mouth/Throat: Mouth: Mucous membranes are moist. Eyes: Extraocular Movements: Extraocular movements intact. Pupils: Pupils are equal, round, and reactive to light. Cardiovascular: Rate and Rhythm: Normal rate and regular rhythm. Pulses: Normal pulses. Heart sounds: Normal heart sounds. Pulmonary: Effort: Pulmonary effort is normal. Breath sounds: Normal breath sounds. Abdominal: General: Abdomen is flat. Bowel sounds are normal. Palpations: Abdomen is soft. Musculoskeletal: General: Normal range of motion. Cervical back: Normal range of motion. Right lower leg: No edema. Left lower leg: No edema. Neurological: General: No focal deficit present. Mental Status: He is alert and oriented to person, place, and time. Total time for discharge - review of data, exam, discussion with providers and care-team, med-rec and orders, arranging follow up, counseling of patient and/or family and documentation was 30 minutes. Signed Ilda Perez MD. Internal Medicine [email or web address] Primary Pulmonary Medicine Service 03/05/2025 3:47 PM CC: DO Juwan Cosigned by Ruth Kramer MD at 03/08/2025 4:23 PM EDT Associated attestation - Ruth Kramer MD - 03/08/2025 4:23 PM EDT Patient was seen and examined with the resident on the same date of service, I discussed the findings and therapeutic plan with the resident/fellow, I agree with the documentation, assessment and plan as above except for any edits/updates below. Ruth Kramer MD physician primary care sports medicine Pulmonary and critical care department [phone] documented in this encounter Discharge Instructions * Discharge Instructions* Ilda Perez MD - 02/28/2025 9:48 AM EDT Start taking apixaban 5 mg twice daily Start taking Toprol 75 mg daily Start taking furosemide/Lasix 60 mg in the morning Start taking spironolactone 12.5 mg daily Start taking valsartan 20 mg daily Stop taking labetalol and lisinopril Patient to follow-up with PCP within 1 week of discharge for hospital follow-up appointment Patient to follow-up with Vascular surgery after discharge for office visit per their recommendations Patient to follow-up with Cardiology after discharge for outpatient visit per their recommendations * Discharge Instr - AVS First Page* Geena Figueroa RN - 03/05/2025 4:02 PM EDT -Please notify your physician or advanced practice provider with any questions or concerns regarding your medical condition(s). -If you need immediate medical attention, please dial 9-1-1 or go to your closest emergency department. * Discharge Instr - Activity* Geena Figueroa RN - 03/04/2025 9:03 AM EDT Activity as tolerated Ambulate with assistance as needed Fall risk precautions PT/OT evaluate and treat * Discharge Instr - Diet* Geena Figueroa RN - 03/04/2025 9:04 AM EDT Regular Heart Healthy Diet (2 grams of sodium per day/low fat/low cholesterol) 4973-7470 ml fluid restriction Dietary nutrition supplement with Breakfast; Boost Glucose Control; Chocolate; 8 oz; Oral * Discharge Instr - Other Orders* Geena Figueroa RN - 03/04/2025 9:04 AM EDT -Cardiac cath 03/04/25- PENDING RESULT -03/03/25 BERNARDINO/cardioversion -03/04 CTA -03/02/25 Urethral Catheter 16 Fr.- tello care BID *Continue heart healthy diet and low sodium diet. *Monitor daily weights, fluid restriction 1.5-2Liters/day *Call office for weight gain of 2 pounds in 1 day or 5 pounds in 1 week, increased leg swelling, shortness of breath or shortness of breath at night and having to sleep sitting up taller/more pillowsthan normal or in recliner. [phone]. * Attachments The following attachments cannot be sent through Care Everywhere. * Heart Failure Self-Care [id number] (Tanzanian) * Indwelling Urinary Catheter Care Adult [id number] (Tanzanian) documented in this encounter Medications at Time of Discharge apixaban (Eliquis) 5 mg tabletIndications :Acute systolic CHF (congestive heart failure) ([facility]/HCC) Take 1 tablet (5 mg) by mouth two times daily for 196 doses. 60 tablet 3 03/05/2025 5 bisacodyl (Dulcolax) 5 mg EC tabletIndications :S/P gastric bypass Take 1 tablet (5 mg) by mouth in the morning for 91 doses. Do not crush, chew, or split. 30 tablet 03/06/2025 5 ferrous sulfate 325 (65 Fe) MG tablet Take 65 mg by mouth in the morning and at bedtime. furosemide (Lasix) 20 mg tabletIndications :Edema, unspecified type Take 3 tablets (60 mg) by mouth in the morning. 90 tablet 03/05/2025 5 metoprolol succinate XL (Toprol-XL) 25 mg 24 hr tabletIndications :Acute systolic CHF (congestive heart failure) (CMS/HCC) Take 3 tablets (75 mg) by mouth in the morning for 96 doses. Do not crush or chew. 90 tablet 3 03/06/2025 5 sennosides-docusa te sodium (Gertrude-Colace) 8.6-50 mg tabletIndications :Acute systolic CHF (congestive heart failure) (CMS/HCC) Take 1 tablet by mouth at bedtime. 30 tablet 03/05/2025 5 spironolactone (Aldactone) 25 mg tabletIndications :Acute systolic CHF (congestive heart failure) (CMS/HCC) Take 0.5 tablets (12.5 mg) by mouth in the morning for 84 doses. Do not start before March 06, 2025. 15 tablet 2 03/06/2025 5 tamsulosin (Flomax) 0.4 mg 24 hr capsuleIndication s:Benign prostatic hyperplasia, unspecified whether lower urinary tract symptoms present Take 1 capsule (0.4 mg) by mouth in the morning for 89 doses. 30 capsule 2 03/06/2025 5 valsartan (Diovan) 40 mg tabletIndications :Acute systolic CHF (congestive heart failure) (CMS/HCC) Take 0.5 tablets (20 mg) by mouth in the morning for 96 doses. 15 tablet 3 03/06/2025 5 documented as of this encounter Progress Notes * Radha Garcia SUPERVISOR PHOSPHATIC FERTILIZER - 03/05/2025 4:00 PM EDT Physical Therapy Physical Therapy Treatment Patient Name: Lindsay Pinto : 1965 Today's Date: 03/05/2025 Problem List[1] Time : 15:25-15:50 03/05/25 1600 PT Last Visit PT Received On 03/05/25 General Subjective Pt has been cleared medically by nursing staff , adjusto writer operator had seen pt walking in hallways earlier today on his own . Pt in bed and ready to do return demonstration of HEP for LE's he was given yesterday see details below : Activity Tolerance Endurance Stage III Precautions Medical Precautions telemetry (portable) Cognition Orientation Level Oriented X4 Therapeutic Exercise Therapeutic Exercise Activity 1 Standing bilat LE theraband exercise program with blue theraband , for hip flexion , hip abduction , hip adduction , hamstring curl , hip extension , partial squat 10 reps 1 set . Pt able to do return demonstration with no problems Static Standing Balance Static Standing-Balance Support No upper extremity supported Static Standing-Level of Assistance Independent Dynamic Standing Balance Dynamic Standing-Balance Support No upper extremity supported;Unilateral upper extremity supported Dynamic Standing-Balance (while doing standing balance ther exercise program and transfers and short distance walks in the room) Dynamic Standing Balance-Level of Assistance Independent Ambulation Ambulation Yes Ambulation 1 Surface 1 Level tile Device 1 No device Assistance 1 Independent Comments/Distance (ft) 1 8 ft x 2 Bed Mobility Bed Mobility Yes Bed Mobility 1 Bed Mobility From 1 Supine Bed Mobility Type 1 To Bed Mobility to 1 Short sit Level of Assistance 1 Independent Transfers Transfer Yes Transfer 1 Transfer From 1 Bed;Sit;Chair with arms Transfer Type 1 To and from Transfer to 1 Stand Technique 1 Sit to stand;Stand to sit Transfer Device 1 none Transfer Level of Assistance 1 Independent Other Activity Other Activity 1 pt left in bedside chair with call light available to him . PT Assessment PT Assessment/SUPERVISOR PHOSPHATIC FERTILIZER Summary pt has met all his goals on his POC over the last couple of days getting therapy services and has a HEP to go home with . Pt is ready to be discharged from PT services , andsupervising PT is aware of pt needing to be discharged from PT services all goals met . Plan PT Discharge Recommendations Patient is able to return to prior living environment Goals: Multi-Disciplinary Problems (from Physical Therapy) Active Problems Problem: Balance Start Date: 02/25/25 Goal Start Date Expected End Date End Date LTG - Patient will maintain standing and sitting balance to allow for completion of daily activities 02/25/25 03/11/25 -- Problem: Mobility Start Date: 02/25/25 Goal Start Date Expected End Date End Date LTG - Patient will ambulate at least 50 feet as medically appropriate with stand-by/contact guard using least restrictive assistive device 02/25/25 03/11/25 -- Goal Start Date Expected End Date End Date LTG - As pt's medical stability improves, he will navigate at least 8 steps with stand-by/contact guard using device as appropriate 02/25/25 03/11/25 -- Problem: Transfers Start Date: 02/25/25 Goal Start Date Expected End Date End Date STG - Transfer from bed to chair with SBA using least restrictive assistive device 02/25/25 03/11/25 -- Goal Start Date Expected End Date End Date STG - Patient to transfer to and from sit to supine with no assistance from flat HOB 02/25/25 03/11/25 -- Goal Start Date Expected End Date End Date STG - Patient will transfer sit to and from stand with SBA using least restrictive assistive /28/25 03/11/25 -- Problem: PT Misc Start Date: 02/25/25 Goal Start Date Expected End Date End Date LTG - Pt will tolerate 30+ minute session with minimal rest breaks and vitals remaining in normal limits for improvements in endurance. 02/25/25 03/11/25 -- 03/05/25 1600 6 Clicks (Mobility) Help from another person turning from your back to your side while in a flat bed without using bedrails 4 Help from another person moving from lying on your back to sitting on the side of a flat bed without using bedrails 4 Help from another person moving to and from a bed to a chair (including a wheelchair) 4 Help from another person standing up from a chair using your arms (e.g. wheelchair or bedside chair) 4 Help from another person to walk in hospital room 4 Help from another person climbing 3-5 steps with a railing 3 Mobility 6 Clicks T-Score 23 [1] Patient Active Problem List Diagnosis Gout Primary hypertension Obesity ENA (obstructive sleep apnea) Ascending aorta dilatation Acute systolic CHF (congestive heart failure) ([facility]/HCC) New onset a-fib (CMS/HCC) S/P gastric bypass Pericardial effusion Moderate mitral valve regurgitation Atrial fibrillation with RVR ([facility]/HCC) A-fib (CMS/HCC) Hematoma Angina pectoris, unstable (CMS/HCC) Cosigned by Canelo Mendieta, PT at 03/08/2025 12:53 PM EDT * VITO Espinal - 03/05/2025 11:23 AM EDT Discharge Planning As per RUCC RN patient is agreeable to [facility]. Referrals made through [facility]. [facility] is able to accept. Added to AVS. * MARJORIE Landry - 03/05/2025 10:35 AM EDT Occupational Therapy Occupational Therapy Treatment Patient Name: Lindsay Pinto : 1965 Today's Date: 03/05/2025 Start Time: 1035 Stop Time: 1058 Time Calculation (min): 23 min Problem List Problem List[1] Pain: Pain Assessment Pain Assessment: 0-10 (Pt reports discomfort at prior IV site, spome edema noted, pt does not reports pain on 1-10 pain scale) Objective General Visit Information: OT Last Visit OT Received On: 03/05/25 General Subjective: Pt pleasant and agreeable to self care session, I'm hoping to go home today. Family/Caregiver Present: No Precautions Precautions Medical Precautions: telemetry Cognition Cognition Overall Cognitive Status: Within Functional Limits Orientation Level: Oriented X4 Cognition Comments: Pleasant, cooperative, motivated ADL Assessment: Grooming Grooming Level of Assistance: Independent Grooming Where Assessed: Standing sinkside Grooming Comments: Pt closed curtain this date for privacy, reports no concerns for home d/c UE Bathing UE Bathing Level of Assistance: Independent UE Bathing Where Assessed: Standing sinkside UE Bathing Comments: Pt completes 100% UBB in standing LE Bathing LE Bathing Level of Assistance: Independent LE Bathing Where Assessed: Standing sinkside LE Bathing Comments: Pt completes 100% LBB in standing UE Dressing UE Dressing Level of Assistance: Setup UE Dressing Where Assessed: (standing sinkside) UE Dressing Comments: Pt doffss dirty gown (I) and requires assistance with tying clean gown s/p bathing LE Dressing LE Dressing: No Functional Standing Tolerance Time: ~16 minutes Activity: grooming, bathing sinkside Functional Standing Tolerance Comments: no device needed Static Sitting Balance Static Sitting Balance Static Sitting-Balance Support: No upper extremity supported, Feet supported Static Sitting-Level of Assistance: Independent Dynamic Sitting Balance Dynamic Sitting Balance Dynamic Sitting-Balance Support: No upper extremity supported, Feet supported Dynamic Sitting-Balance: Forward lean, Reaching for objects, Reaching across midline, Trunk controlactivities Dynamic Sitting Balance-Level of Assistance: Independent Static Standing Balance Static Standing Balance Static Standing-Balance Support: No upper extremity supported Static Standing-Level of Assistance: Independent Dynamic Standing Balance Dynamic Standing Balance Dynamic Standing-Balance Support: No upper extremity supported Dynamic Standing-Balance: Forward lean, Reaching for objects, Reaching across midline Dynamic Standing Balance-Level of Assistance: Independent Bed Mobility Bed Mobility Bed Mobility: No Transfers Transfers Transfer: Yes Transfer 1 Transfer From 1: Sit, Chair with arms Transfer Type 1: To and from Transfer to 1: Stand (at sink) Technique 1: Sit to stand, Stand to sit Transfer Level of Assistance 1: Independent Trials/Comments 1: Pt demos good safety awareness Activity Tolerance Activity Tolerance Activity Tolerance Comments: Pt tolerates dynamic, self care session with no complaints and no adverse effects Treatment: Other Activity Other Activity 1: Pt left w/ bedside chair, call light and needs accessible. Outcome Assessments AM-PAC 6 Clicks Putting on and taking off regular lower body clothing?: None (Independent) Bathing(Including washing,rinsing,drying)?: None (Independent) Toileting, which includes using the toilet,bedpan,or urinal?: None (Independent) Putting on and taking off regular upper body clothing?: None (Independent) Taking care of personal grooming such as brushing teeth?: None (Independent) Eating meals?: None (Independent) Total Score OT [facility]: 24 Assessment/Plan OT Assessment OT Impairments: Decreased ADL status, Decreased safe judgment during ADL, Decreased endurance, Decreased functional mobility, Decreased IADLs, Decreased trunk control for functional activities OT Assessment/RETAIL EVENT ASSISTANT Summary: Pt is demo'ing (I) with transfers, mobility and self care tasks; demo's good safety awareness, balance and activity tolerance. OT Education/Comments: OT POC Plan Level of assist: 1 assist Treatment Interventions: ADL retraining, Functional transfer training, Endurance training, Patient/family training, Compensatory technique education, Neuromuscular reeducation OT Plan: Skilled OT OT Frequency: 3 times per week OT Discharge Recommendations: Patient is able to return to prior living environment OT - Discharge Recommendations Placed: Yes OT Goals: Multi-Disciplinary Problems (from Occupational Therapy) Active Problems Problem: Bathing Start Date: 02/25/25 Goal Start Date Expected End Date End Date LTG - Patient will utilize adaptive techniques to bathe body with stand- by/contact guard 02/25/25 03/11/25 -- Problem: Dressings Lower Extremities Start Date: 02/25/25 Goal Start Date Expected End Date End Date LTG - Patient will dress lower body with stand-by/contact guard 02/25/25 03/11/25 -- Problem: Dressing Upper Extremities Start Date: 02/25/25 Goal Start Date Expected End Date End Date LTG - Patient will complete upper body dressing with no assistance 02/25/25 03/11/25 -- Problem: Grooming Start Date: 02/25/25 Goal Start Date Expected End Date End Date STG - Patient will tolerate standing sink side to complete grooming with no assistance 02/25/25 03/11/25 -- Problem: Toileting Start Date: 02/25/25 Goal Start Date Expected End Date End Date LTG - Patient will utilize adaptive techniques/equipment to complete daily toileting tasks with no assistance 02/25/25 03/11/25 -- Problem: OT Misc Start Date: 02/25/25 Goal Start Date Expected End Date End Date Pt will demo increased activity tolerance by participating in 20 minutes of dyn. sitting/standing tasks in least restrictive environment with mod. Indep. as needed for safe completion of all functional tasks and functional ambulation/transfers. 02/25/25 03/11/25 -- Goal Start Date Expected End Date End Date Pt will complete functional transfers and functional ambulation with stand- by/contact guard using least restrictive device. 02/25/25 03/11/25 -- [1] Patient Active Problem List Diagnosis Gout Primary hypertension Obesity ENA (obstructive sleep apnea) Ascending aorta dilatation Acute systolic CHF (congestive heart failure) (CMS/HCC) New onset a-fib (CMS/HCC) S/P gastric bypass Pericardial effusion Moderate mitral valve regurgitation Atrial fibrillation with RVR (CMS/HCC) A-fib (CMS/HCC) Hematoma Angina pectoris, unstable (CMS/HCC) Cosigned by Megan Truong OT at 03/10/2025 7:44 AM EDT * Vanessa Van PA-C - 03/05/2025 9:32 AM EDT Images from the original note were not included. . Cardiology Inpatient Progress Note Reason for consult: new and acute HFrEF and new Afib HPI: Lindsay Pinto is a 59 y.o. male with newly discovered atrial fibrillation with RVR, new heart failure with reduced EF 15-20% (previously 50-55%) that is likely tachycardia induced cardiomyopathy, with full cardiac ischemic evaluation pending. Also found to have acute blood loss anemia with spontaneous right and left rectus abdominal muscle hematomas being treated conservatively known PMHx of hypertension, severe LVH, mild mitral regurgitation, mildly dilated ascending aorta, ENA, obesity s/p gastric bypass He is followed by Dr. Rosenberg 02/18/25 transfer to [facility] for higher level of care from [facility] for new A-fib, acute HFrEF, anasarca. C/o progressively worsening dyspnea, abdominal swelling and anasarca in the setting of new onset A-fib along with new onset systolic CHF. Chest x-ray found cardiomegaly with vascular congestion. CT of the abdomen found found ascites and anasarca. Labs show a mild GILLIAN and an elevated BNPover 5000, mild and persistently elevated HS troponin in the low 40s. EKG found A-fib with RVR which is new for the patient with chronic LBBB. Rate control was pursued with IV amiodarone bolus and drip and IV digoxin due to borderline hypotension along with heparin drip. Echo found newly dropped EFof 15 to 20% with moderate pulmonary hypertension, moderate mitral valve regurgitation and a small pericardial effusion. On 02/22/2025 he was transferred to ICU for circulatory shock and acute blood loss anemia anemia related to spontaneous right and left rectus abdominal muscle hematomas found on CT along with A-fib with RVR with GILLIAN and hypotension. In ICU he required pressors and empiric antibiotics. Heparin drip was discontinued, and he was transfused with 1 unit PRBC with improving hemoglobin. He stabilized but continued to have A-fib with difficult to control rates along with hypotension, and on 03/03/25 had successful DC cardioversion to sinus rhythm, which he maintained through discharge. He continued to stabilize and GDMT was escalated as tolerated. Ischemic workup was pursued with coronary CTA on 03/05/2025, with results not expected to be available until 03/08/2025. He remained hemodynamically stable and discharged home with home health nursing referral and cardiology outpatient follow-up scheduled on Eliquis, aspirin, iron tablets, metoprolol XL 75 mg daily, spironolactone 12.5 mg daily and valsartan 20 mg daily along with furosemide 60 mg once daily. Home labetalol and lisinopr il were discontinued. He was given strict instructions to call 911 for any worsening symptoms. At discharge hemoglobin was 8.1/hematocrit 24.2, normal platelets, creatinine 0.73 with normal BUN and potassium. Sodium was stable at 132 with normal LFTs. Subjective 03/05/25 Evalutated in room, resting in bed, had been up to chair for several hours earlier today. He denieslightheadedness, dyspnea, palpitations or fast heartbeats, GI distress, medic easier melena, or lower extremity edema. He is overall feeling well and would like to go home. He has scales and blood pressure machine for home monitoring. Follow-up appointment with [place] [facility] has been arranged. 03/04/25 Patient sitting up in chair. Says he feels well. Denies CP, SOB, palpitations, or dizziness. Hb dropped to 7.7 this morning. No signs of bleeding. Cath was cancelled after discussion with interventional cardiology and concern about recent rectal sheath hematoma, CTA coronaries ordered. 03/03/25 Patient sitting up in chair. Says he feels well. Denies CP, SOB, palpitations, or dizziness. He hadTEE and cardioversion this morning to NSR. He tolerated heparin IV overnight without any signs of bleeding Objective Current Medications[1] Objective: No data found. Physical Examination: Physical exam: BP 110/80 (BP Location: Right arm, Patient Position: Sitting) Pulse 81 Temp 36.3 ??C (97.3 ??F)(Temporal) Resp 18 Ht 1.727 m (5' 7.99 ) Wt 110 kg (241 lb 12.8 oz) SpO2 98% BMI 36.77 kg/m?? TELEMETRY: SR with brief NSVT General: Alert, appropriate mood / affect. NAD Eyes: anicteric sclera. Non-injected conjunctiva. No xanthelasmas Neck: No elevated JVP. No carotid bruit Pulm: no increased effort of breathing. Breath sounds CTA bilaterally with no wheeze, rhonchi or rales. Cards: HRRR , NL S1, S2. No S3 or S4 gallop. Murmur: none Abd: Soft, Nontender, physiologic bowel sounds are present Extr: Lower extremity edema: None. DP pulses present bilaterally Skin: warm, dry, well perfused Neuro: A&Ox3, No gross deficits Psych: appropriate mood, affect. Relevant Lab Results Labs: Lab Results Component Value Date WBC 7.45 03/05/2025 HGB 8.1 (L) 03/05/2025 HCT 24.2 (L) 03/05/2025 MCV 90.0 03/05/2025 PLT 399 03/05/2025 Lab Results Component Value Date NA 132 (L) 03/05/2025 K 3.9 03/05/2025 CL 103 03/05/2025 ANIONGAP 9 03/05/2025 BUN 13 03/05/2025 CREATININE 0.73 03/05/2025 CALCIUM 8.1 (L) 03/05/2025 MG 1.9 03/05/2025 PHOS 3.0 03/05/2025 Lab Results Component Value Date BILITOT 3.8 (H) 03/05/2025 BILIDIR 1.1 (H) 02/22/2025 ALKPHOS 60 03/05/2025 AST 16 03/05/2025 ALT 15 03/05/2025 PROT 5.2 (L) 03/05/2025 ALBUMIN 3.0 (L) 03/05/2025 Lab Results Component Value Date TRIGLYCERIDES 69 08/28/2019 Lab Results Component Value Date TSH 3.22 02/18/2025 Lab Results Component Value Date DIGOXIN LVL 0.6 (L) 03/03/2025 No results found for: HGBA1C No results found for: TROPONIN I , TROPONIN T , POC TROPONIN I , POC TROPONIN I. Lab Results Component Value Date HS TROPONIN I 27 (H) 02/22/2025 HS TROPONIN I 31 (H) 02/22/2025 HS TROPONIN I 30 (H) 02/19/2025 HS TROPONIN I 29 (H) 02/19/2025 Lab Results Component Value Date BNP 491 (H) 02/18/2025 Last lab values have been reviewed with patient at today's visit. Encounter Date: 02/18/25 ECG 12 lead Result Value Ventricular Rate 78 Atrial Rate 78 KS Interval 206 QRS DURATION 182 QT Interval 432 QTC CALCULATION(BAZETT) 492 P Moselle 53 R-Moselle -31 T Wave Moselle 134 Impression Sinus rhythm with Premature supraventricular complexes Left axis deviation Left bundle branch block Abnormal ECG When compared with ECG of 03-MAR-2025 10:07, Premature supraventricular complexes are now Present Confirmed by Prabhu Chavez ([id number]) on 03/04/2025 5:11:38 PM No results found for: CKTOTAL , CKMB , CKMBINDEX , TROPONINI Transesophageal echo (BERNARDINO) with possible cardioversion Result Date: 03/03/2025 1 [facility] Heart [facility] [address] [place] [address] [phone] (fax) Transesophageal Echocardiogram-[facility] Name: LINDSAY PINTO Study Date: 03/03/2025 09:24 AM B/P: 108 mmHg/71 mmHg HR: 84 bpm Date of : 1965 Location: [facility] Height: 68 in. Age: 59 year(s) Patient Room: 2354 Weight: 244 lb. Gender: Male Patient Status: InPt BSA: 2.22 m2 Indication: Atrial Fibrillation Examination: BERNARDINO/Limited Doppler/CFI, Agitated Saline Image Quality: Fair Patient Consent: Informed, written consent was obtained for the procedure Exam Details Contrast: I.V. dose of agitated saline Exam Location: A BERNARDINO was performed in the [facility] without complications Anesthesia Pharyngeal anesthesia with viscous Lidocaine Conclusions Left Ventricle: The left ventricle is normal size. Global left ventricular systolic function is severely reduced. The EF is 20 % visually. Left ventricular wall thickness is normal. Diffuse global hypokinesis. Right Ventricle: The right ventricle appears normal in size. Right ventricular systolicfunction appears normal. Left Atrium: The left atrium appears enlarged. Left Atrium Appendage: Normal left atrial appendage, no thrombus seen. Pericardium: There is a minimal pericardial effusion with fibrinous content/thrombus close to transverse sinus Overall Conclusions: Biphasic cardioversion was performed at 360 J, the patient was converted to sinus rhythm Medications Date Time Name Route Form Dose Units Ordered By Given By Comment 03/03/2025 10:12 AM Midazolam HCL (Versed) 6 milligrams 03/03/2025 10:12 AM Fentanyl (Opiates) 75 micrograms Measurements Left Ventricle Label Value Normal Value LVEF visual 20 % Valvular Assessment LVOT 0.7 - 1.1 m/sec Aortic Valve 1.0 - 1.7 m/sec Mitral Valve 0.6 - 1.3 m/sec Tricuspid Valve 0.3 - 0.7 m/sec Pulmonic Valve 0.6 - 0.9 m/sec Regurgitation No trivMil No No Findings Left Ventricle: The left ventricle is normal size. Global left ventricular systolic function is severely reduced. The EF is 20 % visually. Left ventricular wall thickness is normal. Diffuse global hypokinesis. Right Ventricle: The right ventricle appears normal in size. Right ventricular systolic function appears normal. Left Atrium: The left atrium appears enlarged. Left Atrium Appendage: The left atrial appendage is normal. The left atrial appendage is monolobular. Normal left atrial appendage, no thrombus seen. IAS: No intracardiac shunt by agitated saline injections.Right Atrium: The right atrium is normal in size. Mitral Valve: The mitral valve is normal in mobility and thickness. Trvial to mild mitral regurgitation. Aortic Valve: The aortic valve is normal. Noaortic valve regurgitation. The aortic valve is trileaflet. Tricuspid Valve: Normal tricuspid valve. No tricuspid regurgitation. Pulmonic Valve: Normal pulmonary valve. No pulmonary regurgitation. Aorta: Minimal atherosclerotic plaque is seen in the aorta. Pericardium: There is a minimal pericardial effusion with fibrinous content/thrombus close to transverse sinus Procedure Staff Reading Group: [facility] Referring Physician: JALEN LINDER Mission Planner: ZUHAIR Caban, RDCS Ordering Physician: JOSE MENESES Limited Echo (TTE) w/wo Limited Doppler, Color Flow, Imaging Agent, Strain, 3D, Bubble Study Result Date: 03/02/2025 1 [facility] Heart Station [address] [place] [address] [phone] (fax) Echocardiogram-[facility] Name: LINDSAY PINTO Study Date: 03/02/2025 12:02 PM B/P: 111 mmHg/69 mmHg HR: 84 bpm Date of : 1965 Location: [facility] Height: 68 in. Age: 59 year(s) Patient Room: 3174 Weight: 247 lb. Gender: Male Patient Status: InPt BSA: 2.24 m2 Indication: Congestive Heart Failure, Atrial Fibrillation Examination: Limited Echo/Limited Doppler, Color flow imaging, Lumason Contrast Image Quality: Fair Patient Consent: Procedureexplained to patient Exam Details Contrast: I.V. dose of Lumason Conclusions Left Ventricle: The left ventricle is moderately enlarged. Global left ventricular systolic function is severely reduced. The calculated Biplane EF is 24 %. The EF is 15 % visually. Left ventricular wall thickness is at upper normal limits. Diffuse global hypokinesis. Unable to assess diastolic dysfunction. The changes are consistent with eccentric hypertrophy. Right Ventricle: The right ventricle is at upper normal limits in size. Right ventricular systolic function appears reduced. Doppler studies suggest normal right sided pressures. Left Atrium: The left atrium is severely enlarged. Overall Conclusions: Due to suboptimal imaging Lumason contrast was administered for opacification and better delineation of endocardial borders. Rhythm is atrial fibrillation. Measurements Left Ventricle Label Value Normal Value LVOT VTI 11.3 cm (18cm - 22cm) LVOT PGmax 2 mmHg LVEF visual 15 % LVDd, 2D 6.5 cm (4.2cm - 5.9cm) LVDs, 2D 6.24 cm (2.1cm - 4cm) IVSd, 2D 1 cm (0.6cm - 1.1cm) LVPWd, 2D 0.95 cm (0.6cm - 1cm) LVEF, BP 24 % (55% - 65%) LV Mass, 2D ASE 274.1 g LV Mass Index, 2D ASE 122.4 g/m?? (50g/m?? - 102.4g/m??) RWT, MM 0.29 (0 - 0.42) LVSVI, 2D 19.6 ml/m2 LVOT PGmean 1 mmHg Right Ventricle Label Value Normal Value RVDd, 2D 4.27 cm (1.9cm - 3.8cm) Left Atrium Label Value Normal Value LA Volume, BP 142 ml (18ml - 58ml) LAESV index, BP 63.4 ml/m?? Right Atrium Label Value Normal Value RA Area 21.1 cm?? Tricuspid Valve Label Value Normal Value RA Pressure 3 mmHg RVSP 24 mmHg TR Vmax 2.31 m/s Aorta Label Value Normal Value AoRoot, 2D 3.7 cm (1.4cm - 3.8cm) Valvular Assessment LVOT 0.7 - 1.1 m/sec Aortic Valve 1.0 - 1.7 m/sec Mitral Valve 0.6 - 1.3 m/sec Tricuspid Valve 0.3 - 0.7 m/sec Pulmonic Valve 0.6 -0.9 m/sec Regurgitation No trivMil Trivial No Stenosis No No No No Max Velocity 0.70 m/sec FindingsLeft Ventricle: The left ventricle is moderately enlarged. Global left ventricular systolic function is severely reduced. The calculated Biplane EF is 24 %. The EF is 15 % visually. Left ventricular wall thickness is at upper normal limits. Diffuse global hypokinesis. Unable to assess diastolic dysf unction. The changes are consistent with eccentric hypertrophy. Right Ventricle: The right ventricle is at upper normal limits in size. Right ventricular systolic function appears reduced. Doppler studies suggest normal right sided pressures. Left Atrium: The left atrium is severely enlarged. RightAtrium: The right atrium is severely enlarged. Mitral Valve: There is nonspecific thickening of themitral valve leaflet. Trvial to mild mitral regurgitation. No mitral valve stenosis. Aortic Valve: The aortic valve is normal. No aortic valve regurgitation. No aortic valve stenosis. Tricuspid Valve: Normal tricuspid valve. Trivial tricuspid regurgitation. No tricuspid valve stenosis. Pulmonic Valve: Normal pulmonary valve. No pulmonary regurgitation. No pulmonic valve stenosis. Aorta: The aortic root exhibits dilatation. Great Vessels: IVC: The IVC is not visualized. Pericardium: There is a minimal pericardial effusion. Procedure Staff Reading Group: [facility] Referring Physician: JALEN LINDER Mission Planner: ZUHAIR Caban, RDCS Ordering Physician: RUTH KRAMER No nuclear medicine results found for the past 12 months Relevant Imaging Results ECG 12 lead Sinus rhythm with Premature supraventricular complexes Left axis deviation Left bundle branch block Abnormal ECG When compared with ECG of 03-MAR-2025 10:07, Premature supraventricular complexes are now Present Confirmed by Prabhu Chavez ([id number]) on 03/04/2025 5:11:38 PM ECHO 05/14/2023 Global LV systolic function is [...] . Stress test 2016: no ischemia, LBBB ASSESSMENT #Acute on chronic HFrEF EF 20% #Cardiomyopathy, unclear if ischemic or nonischemic or mixed, suspect tachycardia induced from A-fib. - 03/03/2025 BERNARDINO followed by successful DC cardioversion: EF 20%, no LVH, diffuse HK, normal RV SF.LAE with no PRINCE thrombus. Minimal pericardial effusion with fibrinous content/thrombus close to transverse sinus. Successful DC cardioversion - 03/02/2025 TTE: EF 15% visually, calculated biplane EF is 24%. LV wall thickness at ULN. Diffuse global HK, consistent with eccentric hypertrophy. Reduced RV SF. Normal right sided pressures, severe LAE. RVSP 24 mmHg. Mild aortic dilation --ECHO 05/14/2023: EF 50-55%, NL RVSF. Normal diastolic function. Biatrial enlargement. Mild mitralregurg. Aortic root is mildly dilated. Trivial pericardial effusion is seen --ECHO 2019: Severe LVH, EF 40% #Paroxysmal A-fib with RVR, s/p BERNARDINO & CV 03/04/25 -[id number] 2, started Eliquis on 03/04/2025. #Essential hypertension #Chronic left bundle branch block #CAD -- Coronary CTA performed 03/05/2025, results pending -02/22/2025 CT chest with contrast: Mild to moderate coronary artery calcifications. --Stress test 2016: no ischemia, LBBB # GILLIAN, resolved peak creatinine 2.43 related to hypotension, acute anemia #Acute blood loss anemia # Spontaneous bilateral rectal sheath hematoma after starting AC, -- Transfused 1 unit PRBC, hemoglobin lilia of 7.7 #ENA #S/p gastric bypass #Obesity PLAN -Today NYHA II, patient appears compensated, can lay flat comfortably, and standing weight is 241 pounds, down 5 pounds during hospitalization. Blood pressures are soft though well-tolerated and maintaining sinus rhythm with heart rates 65-80. - Renal function has stabilized and is now normal - Ischemic workup in progress with coronary CTA instead of coronary angiogram in light of spontaneous bilateral rectus sheath hematomas. Results will not be available until 03/08/2025. And he is hemodynamically stable with no angina equivalent symptoms prior to admission. Therefore he we will be discharging home awaiting results of coronary CTA. If positive will arrange for outpatient coronary angiogram. This was discussed with Dr. Rosenberg by other providers. - Optimization GDMT has been limited by recent GILLIAN and soft blood pressures. - He will discharge on metoprolol XL 75 mg daily, valsartan 20 mg daily, spironolactone 12.5 mg daily. 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 This note was, at least in part, completed using a voice bottle inspector system. Every effort was made to ensure accuracy. However, inadvertent computerized bottle inspector errors may be present. Vanessa Van PA-C [facility] Cardiovascular Medicine Office phone [phone] Office fax [phone] [1] No current facility-administered medications for this encounter. Current Outpatient Medications: apixaban (Eliquis) 5 mg tablet, Take 1 tablet (5 mg) by mouth two times daily for 196 doses., Disp:60 tablet, Rfl: 3 bisacodyl (Dulcolax) 5 mg EC tablet, Take 1 tablet (5 mg) by mouth in the morning for 91 doses. Do not crush, chew, or split., Disp: 30 tablet, Rfl: 0 ferrous sulfate 325 (65 Fe) MG tablet, Take 65 mg by mouth in the morning and at bedtime., Disp: , Rfl: furosemide (Lasix) 20 mg tablet, Take 3 tablets (60 mg) by mouth in the morning., Disp: 90 tablet, Rfl: 0 metoprolol succinate XL (Toprol-XL) 25 mg 24 hr tablet, Take 3 tablets (75 mg) by mouth in the morning for 96 doses. Do not crush or chew., Disp: 90 tablet, Rfl: 3 sennosides-docusate sodium (Gertrude-Colace) 8.6-50 mg tablet, Take 1 tablet by mouth at bedtime., Disp: 30 tablet, Rfl: 0 spironolactone (Aldactone) 25 mg tablet, Take 0.5 tablets (12.5 mg) by mouth in the morning for 84 doses. Do not start before March 06, 2025., Disp: 15 tablet, Rfl: 2 tamsulosin (Flomax) 0.4 mg 24 hr capsule, Take 1 capsule (0.4 mg) by mouth in the morning for 89 doses., Disp: 30 capsule, Rfl: 2 valsartan (Diovan) 40 mg tablet, Take 0.5 tablets (20 mg) by mouth in the morning for 96 doses., Disp: 15 tablet, Rfl: 3 * Arminda Solitario MD - 03/04/2025 1:10 PM EDT Images from the original note were not included. . Cardiology Progress Note Subjective Patient sitting up in chair. Says he feels well. Denies CP, SOB, palpitations, or dizziness. Hb dropped to 7.7 this morning. No signs of bleeding. Cath was cancelled after discussion with interventional cardiology and concern about recent rectal sheath hematoma, CTA coronaries ordered. HPI: Lindsay Pinto is a 59 y.o. male with a PMHx of hypertension, severe LVH, ENA, obesity s/p gastric bypass presents as a direct mission for [facility] with progressively worsening dyspnea, abdominal swelling and anasarca in the setting of new onset A-fib as well as new onset systolic CHF. He had a CXR completed showing cardiomegaly with vascular congestion. CT of the abdomen was completed showing ascites and anasarca. Labs show a mild GILLIAN and an elevated BNP over 5000. EKG was completed showing A-fib with RVR which is new for the patient. He was given 2 doses of digoxin due to borderline hypotension and given a dose of Xarelto. Echocardiogram was completed showing a newly dropped EF of 15 to 20% with moderate pulmonary hypertension, moderate mitral valve regurgitation and a small pericardial effusion. He was transferred [facility] for higher level of care. At [facility], he was started on Lasix 40 mg IV BID and he has made nearly net negative 3L of urine. Vitally, he is afebrile, tachycardic in the 100s, BP 100/63, satting well on RA. Cardiac history: Severe LVH per 2019 Echo that showed LV dysfunction, EF 40% and Echo 05/14/23 showed improvement in EF 50-55%, aortic dilation, mitral valve regurg Cardiac workup: ECHO 05/14/2023: Global LV systolic function is low normal limits; visually estimated EF 50-55%. RVis normal in size and function. Normal diastolic function. Biatrial enlargement. Mild mitral regurg. Aortic root is mildly dilated. Trivial pericardial effusion is seen Objective Current Medications[1] Objective: Patient Vitals for the past 24 hrs: BP Temp Temp src Pulse Resp SpO2 Weight 03/04/25 1200 122/70 36.9 ??C (98.4 ??F) Temporal 86 18 100 % -- 03/04/25 1037 108/71 -- -- -- -- -- -- 03/04/25 0814 105/68 36.7 ??C (98.1 ??F) Temporal 82 18 98 % -- 03/04/25 0447 -- -- -- -- -- -- 112 kg (246 lb) 03/04/25 0412 129/79 -- -- 73 18 100 % -- 03/04/25 0005 113/66 36.8 ??C (98.2 ??F) Tympanic 86 15 98 % -- 03/03/252014 115/61 -- Tympanic 89 15 100 % -- 03/03/25 1600 123/81 36.1 ??C (97 ??F) Temporal 90 20 99 % -- Physical Examination: Physical Exam Constitutional: Appearance: Normal appearance. Cardiovascular: Rate and Rhythm: Normal rate and regular rhythm. Pulses: Normal pulses. Heart sounds: Normal heart sounds. Pulmonary: Effort: Pulmonary effort is normal. No respiratory distress. Breath sounds: Normal breath sounds. Abdominal: General: Bowel sounds are normal. There is no distension. Palpations: Abdomen is soft. Neurological: General: No focal deficit present. Mental Status: He is oriented to person, place, and time. Relevant Lab Results Lab Results Component Value Date WBC 5.41 03/04/2025 HGB 7.7 (L) 03/04/2025 HCT 22.6 (L) 03/04/2025 MCV 89.7 03/04/2025 PLT 359 03/04/2025 Lab Results Component Value Date GLUCOSE 86 03/04/2025 CALCIUM 7.7 (L) 03/04/2025 NA 132 (L) 03/04/2025 K 3.8 03/04/2025 CO2 25 03/04/2025 CL 103 03/04/2025 BUN 15 03/04/2025 CREATININE 0.66 (L) 03/04/2025 Encounter Date: 02/18/25 ECG 12 lead Result Value Ventricular Rate 78 Atrial Rate 78 KS Interval 206 QRS DURATION 182 QT Interval 432 QTC CALCULATION(BAZETT) 492 P Moselle 53 R-Moselle -31 T Wave Moselle 134 Impression Sinus rhythm with Premature supraventricular complexes Left axis deviation Left bundle branch block Abnormal ECG When compared with ECG of 03-MAR-2025 10:07, Premature supraventricular complexes are now Present No results found for: CKTOTAL , CKMB , CKMBINDEX , TROPONINI Transesophageal echo (BERNARDINO) with possible cardioversion Result Date: 03/03/2025 1 [facility] Heart Station [address] [place] [address] [phone] (fax) Transesophageal Echocardiogram-[facility] Name: LINDSAY PINTO Study Date: 03/03/2025 09:24 AM B/P: 108 mmHg/71 mmHg HR: 84 bpm Date of : 1965 Location: [facility] Height: 68 in. Age: 59 year(s) Patient Room: [facility] Weight: 244 lb. Gender: Male Patient Status: InPt BSA: 2.22 m2 Indication: Atrial Fibrillation Examination: BERNARDINO/Limited Doppler/CFI, Agitated Saline Image Quality: Fair Patient Consent: Informed, written consent was obtained for the procedure Exam Details Contrast: I.V. dose of agitated saline Exam Location: A BERNARDINO was performed in the Change Analyst without complications Anesthesia Pharyngeal anesthesia with viscous Lidocaine Conclusions Left Ventricle: The left ventricle is normal size. Global left ventricular systolic function is severely reduced. The EF is 20 % visually. Left ventricular wall thickness is normal. Diffuse global hypokinesis. Right Ventricle: The right ventricle appears normal in size. Right ventricular systolicfunction appears normal. Left Atrium: The left atrium appears enlarged. Left Atrium Appendage: Normal left atrial appendage, no thrombus seen. Pericardium: There is a minimal pericardial effusion with fibrinous content/thrombus close to transverse sinus Overall Conclusions: Biphasic cardioversion was performed at 360 J, the patient was converted to sinus rhythm Medications Date Time Name Route Form Dose Units Ordered By Given By Comment 03/03/2025 10:12 AM Midazolam HCL (Versed) 6 milligrams 03/03/2025 10:12 AM Fentanyl (Opiates) 75 micrograms Measurements Left Ventricle Label Value Normal Value LVEF visual 20 % Valvular Assessment LVOT 0.7 - 1.1 m/sec Aortic Valve 1.0 - 1.7 m/sec Mitral Valve 0.6 - 1.3 m/sec Tricuspid Valve 0.3 - 0.7 m/sec Pulmonic Valve 0.6 - 0.9 m/sec Regurgitation No trivMil No No Findings Left Ventricle: The left ventricle is normal size. Global left ventricular systolic function is severely reduced. The EF is 20 % visually. Left ventricular wall thickness is normal. Diffuse global hypokinesis. Right Ventricle: The right ventricle appears normal in size. Right ventricular systolic function appears normal. Left Atrium: The left atrium appears enlarged. Left Atrium Appendage: The left atrial appendage is normal. The left atrial appendage is monolobular. Normal left atrial appendage, no thrombus seen. IAS: No intracardiac shunt by agitated saline injections.Right Atrium: The right atrium is normal in size. Mitral Valve: The mitral valve is normal in mobility and thickness. Trvial to mild mitral regurgitation. Aortic Valve: The aortic valve is normal. Noaortic valve regurgitation. The aortic valve is trileaflet. Tricuspid Valve: Normal tricuspid valve. No tricuspid regurgitation. Pulmonic Valve: Normal pulmonary valve. No pulmonary regurgitation. Aorta: Minimal atherosclerotic plaque is seen in the aorta. Pericardium: There is a minimal pericardial effusion with fibrinous content/thrombus close to transverse sinus Procedure Staff Reading Group: [facility] Referring Physician: JALEN LINDER Mission Planner: ZUHAIR Caban, RDCS Ordering Physician: JOSE MENESES Limited Echo (TTE) w/wo Limited Doppler, Color Flow, Imaging Agent, Strain, 3D, Bubble Study Result Date: 03/02/2025 1 1 [facility] Heart Station [address] [place] [address] [phone] (fax) Echocardiogram-[facility] Name: LINDSAY PINTO Study Date: 03/02/2025 12:02 PM B/P: 111 mmHg/69 mmHg HR: 84 bpm Date of : 1965 Location: [facility] Height: 68 in. Age: 59 year(s) Patient Room: 3174 Weight: 247 lb. Gender: Male Patient Status: InPt BSA: 2.24 m2 Indication: Congestive Heart Failure, Atrial Fibrillation Examination: Limited Echo/Limited Doppler, Color flow imaging, Lumason Contrast Image Quality: Fair Patient Consent: Procedureexplained to patient Exam Details Contrast: I.V. dose of Lumason Conclusions Left Ventricle: The left ventricle is moderately enlarged. Global left ventricular systolic function is severely reduced. The calculated Biplane EF is 24 %. The EF is 15 % visually. Left ventricular wall thickness is at upper normal limits. Diffuse global hypokinesis. Unable to assess diastolic dysfunction. The changes are consistent with eccentric hypertrophy. Right Ventricle: The right ventricle is at upper normal limits in size. Right ventricular systolic function appears reduced. Doppler studies suggest normal right sided pressures. Left Atrium: The left atrium is severely enlarged. Overall Conclusions: Due to suboptimal imaging Lumason contrast was administered for opacification and better delineation of endocardial borders. Rhythm is atrial fibrillation. Measurements Left Ventricle Label Value Normal Value LVOT VTI 11.3 cm (18cm - 22cm) LVOT PGmax 2 mmHg LVEF visual 15 % LVDd, 2D 6.5 cm (4.2cm - 5.9cm) LVDs, 2D 6.24 cm (2.1cm - 4cm) IVSd, 2D 1 cm (0.6cm - 1.1cm) LVPWd, 2D 0.95 cm (0.6cm - 1cm) LVEF, BP 24 % (55% - 65%) LV Mass, 2D ASE 274.1 g LV Mass Index, 2D ASE 122.4 g/m?? (50g/m?? - 102.4g/m??) RWT, MM 0.29 (0 - 0.42) LVSVI, 2D 19.6 ml/m2 LVOT PGmean 1 mmHg Right Ventricle Label Value Normal Value RVDd, 2D 4.27 cm (1.9cm - 3.8cm) Left Atrium Label Value Normal Value LA Volume, BP 142 ml (18ml - 58ml) LAESV index, BP 63.4 ml/m?? Right Atrium Label Value Normal Value RA Area 21.1 cm?? Tricuspid Valve Label Value Normal Value RA Pressure 3 mmHg RVSP 24 mmHg TR Vmax 2.31 m/s Aorta Label Value Normal Value AoRoot, 2D 3.7 cm (1.4cm - 3.8cm) Valvular Assessment LVOT 0.7 - 1.1 m/sec Aortic Valve 1.0 - 1.7 m/sec Mitral Valve 0.6 - 1.3 m/sec Tricuspid Valve 0.3 - 0.7 m/sec Pulmonic Valve 0.6 -0.9 m/sec Regurgitation No trivMil Trivial No Stenosis No No No No Max Velocity 0.70 m/sec FindingsLeft Ventricle: The left ventricle is moderately enlarged. Global left ventricular systolic function is severely reduced. The calculated Biplane EF is 24 %. The EF is 15 % visually. Left ventricular wall thickness is at upper normal limits. Diffuse global hypokinesis. Unable to assess diastolic dysf unction. The changes are consistent with eccentric hypertrophy. Right Ventricle: The right ventricle is at upper normal limits in size. Right ventricular systolic function appears reduced. Doppler studies suggest normal right sided pressures. Left Atrium: The left atrium is severely enlarged. RightAtrium: The right atrium is severely enlarged. Mitral Valve: There is nonspecific thickening of themitral valve leaflet. Trvial to mild mitral regurgitation. No mitral valve stenosis. Aortic Valve: The aortic valve is normal. No aortic valve regurgitation. No aortic valve stenosis. Tricuspid Valve: Normal tricuspid valve. Trivial tricuspid regurgitation. No tricuspid valve stenosis. Pulmonic Valve: Normal pulmonary valve. No pulmonary regurgitation. No pulmonic valve stenosis. Aorta: The aortic root exhibits dilatation. Great Vessels: IVC: The IVC is not visualized. Pericardium: There is a minimal pericardial effusion. Procedure Staff Reading Group: [facility] Referring Physician: JALEN LINDER Mission Planner: ZUHAIR Caban, RDCS Ordering Physician: RUTH KRAMER No nuclear medicine results found for the past 12 months Relevant Imaging Results ECG 12 lead Sinus rhythm with Premature supraventricular complexes Left axis deviation Left bundle branch block Abnormal ECG When compared with ECG of 03-MAR-2025 10:07, Premature supraventricular complexes are now Present ASSESSMENT Acute on chronic HFrEF EF 20% probably tachycardia mediated . Clinically stable. Should rule out underlying CAD Paroxysmal A-fib with RVR [id number] 2, s/p BERNARDINO and cardioversion today and he is now in sinus rhythm with left bundle branch block. He is tolerating heparin IV infusion Chronic left bundle branch block Worsening GILLIAN, resolved Acute blood loss anemia due to rectal sheath hematoma after starting AC, S/P transfusion, HB stable Small pericardial effusion on Echo Mild aortic dilatation Primary hypertension ENA S/p gastric bypass Obesity PLAN His Hb dropped to 7.7 this morning. We will hold off on coronary angiogram and do coronary CTA instead to at least to get an idea of the etiology of his low EF. If coronary CTA shows significant CAD, we can consider cath as an outpatient after he is seen in the clinic and his Hb appears more stable. Dr. 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 Continue metoprolol succinate 75 mg daily Give one dose extra dose of lopressor 25 mg for coronary CTA Continue valsartan 20 mg daily. If BP tolerates, can consider entresto Change heparin to eliquis If no coronary artery disease he should continue GDMT for 3 months with repeat echo after that to evaluate ejection fraction and the need for ICD biventricular pacemaker Cardiology will continue to follow patient. This note was, at least in part, completed using a voice bottle inspector system. Every effort was made to ensure accuracy. However, inadvertent computerized bottle inspector errors may be present. Arminda Solitario MD PGY-5 Radio Repair Teacher [facility] Pager: [phone] [1] Current Facility-Administered Medications: acetaminophen (Tylenol) tablet 650 mg, 650 mg, oral, q6h PRN, Carol Carter, VACATION PLANNER, 650 mg at 244 apixaban (Eliquis) tablet 5 mg, 5 mg, oral, BID, Arminda Solitario MD aspirin EC tablet 81 mg, 81 mg, oral, Daily, Jose Meneses MD, 81 mg at 03/04/25 1031 bisacodyl (Dulcolax) EC tablet 5 mg, 5 mg, oral, Daily, Norm North MD, 5 mg at 03/04/25 1032 diphenhydrAMINE (BENADryl) capsule 25 mg, 25 mg, oral, q8h PRN, Jordan Pitts MD, 25 mg at 02/25/25 0149 ferrous sulfate tablet 325 mg, 325 mg, oral, Daily with breakfast, Marizol Brizuela DO, 325 mg at 03/04/25 1032 furosemide (Lasix) tablet 60 mg, 60 mg, oral, Daily, Arminda Solitario MD, 60 mg at 03/04/25 1218 HYDROcodone-acetaminophen (Montrose) 5-325 mg per tablet 1 tablet, 1 tablet, oral, q6h PRN, Suleiman Corcoran MD, 1 tablet at 02/21/25 2240 HYDROmorphone (Dilaudid) injection 0.2 mg, 0.2 mg, intravenous, q4h PRN, Norm North MD, 0.2 mg at 02/22/25 1909 melatonin tablet 5 mg, 5 mg, oral, Nightly PRN, Carol Carter CNP metoprolol succinate XL (Toprol-XL) 24 hr tablet 75 mg, 75 mg, oral, Daily, Arminda Solitario MD, 75 mgat 03/04/25 1032 sennosides-docusate sodium (Gertrude-Colace) 8.6-50 mg per tablet 1 tablet, 1 tablet, oral, Nightly, Carol Bermudez MD, 1 tablet at 03/03/25 2158 Insert peripheral IV, , , Once AND Saline lock IV, , , Once AND sodium chloride flush 10 mL, 10 mL, intravenous, q8h PRN, Carol Carter CNP sodium chloride irrigation solution 0.9 % 3,000 mL, 3,000 mL, irrigation, Continuous, Lo Vasquez MD, 3,000 mL at 02/23/25 1815 spironolactone (Aldactone) tablet 25 mg, 25 mg, oral, Daily, Arminda Solitario MD, 25 mg at 02/21/25 0843 tamsulosin (Flomax) 24 hr capsule 0.4 mg, 0.4 mg, oral, Daily, Norman Tovar MD, 0.4 mg at 032 valsartan (Diovan) tablet 20 mg, 20 mg, oral, Daily, Arminda Solitario MD, 20 mg at 03/04/25 1037 Cosigned by Jose Meneses MD at 03/04/2025 1:35 PM EDT Associated attestation - Jose Meneses MD - 03/04/2025 1:35 PM EDT By using the attestations below, the signing clinician agrees that I have read and verify that thedocumentation has been personally reviewed by me and ensure that the documentation accurately reflects the encounter. GC: I personally saw this patient on the day of the encounter, performed the brumfield portion(s) of the service and participated in the management and confirm the resident's/ fellow's Dr Solitario documentation. Please note there may be an additional personal documentation from me. Jose Meneses MD, FACC * Radha Garcia PTA - 03/04/2025 12:06 PM EDT Physical Therapy Am Cancellation note for 03/04/2025 Pt per nursing was cleared medically to receive therapy services . Upon the adjusto writer operator entering the room pt was supine in the bed and on the phone with family. Pt informed adjusto writer operator that his heart cath was cancelled by his physician and he was talking with family on the phone . Pt requested that adjusto writer operator come back later. Attempted time: 12:00-12:02 Cosigned by Canelo Mendieta PT at 03/04/2025 3:09 PM EDT * Ilda Perez MD - 03/04/2025 11:14 AM EDT Images from the original note were not included. Pulmonology Progress Note Patient - Lindsay Pinto Age - 59 y.o. - 1965 Date of Admission - 02/18/2025 5:46 PM Subjective Patient seen and examined bedside. Vitally stable on room air. Sinus rhythm on the telemetry. Patient denied active symptoms of chest pain, SOB, cough, fevers or chills. Plan for heart cath today. HPI Lindsay Pinto is an 59 y.o. male who came from home with past medical history of hypertension, severe LVH, ENA, obesity s/p gastric bypass presents as a direct mission for [facility] with newonset A-fib as well as new onset systolic CHF. Patient initially presenting to [place] with bloating and constipation. He states that for the past few weeks he has been having abdominal swelling, bloating. He states associated shortness of breath with exertion. He denies chest pain, nausea, vomiting. He does state mild fatigue. He had a CXR completed showing cardiomegaly with vascular congestion. CT of the abdomen was completed showing ascites and anasarca. Labs show a mild GILLIAN and an elevatedBNP over 5000. EKG was completed showing A-fib with RVR which is new for the patient. He was given 2 doses of digoxin due to borderline hypotension and given a dose of Xarelto. Echocardiogram was completed showing a newly dropped EF of 15 to 20% with moderate pulmonary hypertension, moderate mitralvalve regurgitation and a small pericardial effusion. He was transferred [facility] for higher level of care. Patient does follow with cardiology outpatient for LVH. Per cardiology note, the echocardiogram performed on 05/14/2023 showed LVH with an improvement in EF to 50-55%. His latest echocardiogram did show a significant drop in EF. Cardiology is onboard inpatient for his new-onset atrial fibrillation with RVR. Patient was intially treated with a Cardizem drip; however, it was discontinue due to hypot ension. He has been treated with Toprol XL 100 mg BID and digoxin 250 mcg daily. He is scheduled for BERNARDINO and cardioversion today. CT abdomen and pelvis was performed yesterday for ongoing lower abdominal pain. It did reveal The right and left rectus abdominal muscles are abnormal and contain hematomas. The left is larger in size. Hemoglobin did drop from 15.4 to 14.0, but most recent hemoglobin this morning is 14.5 with a hematocrit of 42.9. MICU was consulted after a rapid response was called around 7 AM for hypotension with a BP of 53/38. He was seen and examined at bedside this morning. Blood pressure is now stable with the most recentpressure of 110/72. The patient is speaking in full sentences. He denies any CP or SOB. He also denies lightheadedness, dizziness, or nausea. He endorses continued abdominal pain that has been present for the past two days. He states that is started after he took a shower and felt tired, so he jumped on his bed. He then felt a sudden pain. He does endorse constipation. Last bowel movement was twodays ago. Patient had another episode of hypotension later the morning of admission with a recorded blood pressure of 52/34. He was given albumin and 250 cc lactated ringer and transferred to the MICU for hemodynamic instability. OBJECTIVE Vitals height is 1.727 m (5' 7.99 ) and weight is 112 kg (246 lb). His temporal temperature is 36.7 ??C (98.1 ??F). His blood pressure is 108/71 and his pulse is 82. His respiration is 18 and oxygen saturation is 98%. Temp: [35.9 ??C (96.7 ??F)-36.8 ??C (98.2 ??F)] 36.7 ??C (98.1 ??F) Heart Rate: [73-90] 82 Resp: [15-24] 18 BP: (105-129)/(61-81) 108/71 Physical Exam: General: Patient in no acute distress, resting in chair this morning in hospital room, appears comfortable HEENT: Normocephalic, EOMI Neck: Supple Cardiovascular: NSR Respiratory: In No acute respiratory distress, no wheezing, no rhonchi, unlabored breathing on roomair, saturating above 95 percent Abdomen: Soft, nontender, nondistended, no guarding or rebound Extremities: No edema, No tenderness Neuro: No focal deficits observed, patient moves all limbs against gravity Skin: Warm, Mild Jaundice noted Weight: Admission weight: 118 kg (259 lb 12.8 oz) Wt Readings from Last 1 Encounters: 03/04/25 112 kg (246 lb) Input/Output: Intake/Output Summary (Last 24 hours) at 03/04/2025 1124 Last data filed at 03/04/2025 0603 Gross per 24 hour Intake 1527.76 ml Output 1075 ml Net 452.76 ml Lab Results CBC: Results from last 7 days Lab Units 03/04/25 0108 03/03/25 1254 03/03/25 0346 03/02/25 0426 02/28/25 0342 WBC AUTO 10*3/uL 5.41 -- 5.84 -- 8.84 HEMOGLOBIN g/dL 7.7* -- 8.2* -- 8.3* HEMATOCRIT % 22.6* -- 24.1* -- 24.3* PLATELETS AUTO 10*3/uL 359 358 370 < > 255 < > = values in this interval not displayed. Coagulation: Results from last 7 days Lab Units 03/03/25 1254 03/02/25 1409 APTT Seconds 41.8* 39.7* Metabolic Panel: Results from last 7 days Lab Units 03/04/2510703/03/2534503/02/25 0426 SODIUM mmol/L 132* 132* 131* POTASSIUM mmol/L 3.8 4.0 4.0 CHLORIDE mmol/L 103 102 103 CO2 mmol/L 25 BUN mg/dL 15 12 13 CREATININE mg/dL 0.66* 0.69* 0.68* GLUCOSE mg/dL 86 88 91 CALCIUM mg/dL 7.7* 7.8* 8.1* PHOSPHORUS mg/dL 2.7 2.9 2.5 MAGNESIUM mg/dL 2.0 2.0 2.0 Liver Panel: Results from last 7 days Lab Units 03/04/2510703/03/2534503/02/25 0426 ALBUMIN g/dL 2.8* 2.9* 3.0* BILIRUBIN TOTAL mg/dL 3.7* 4.0* 4.3* ALT U/L 17 18 20 AST U/L 17 23 21 ALK PHOS U/L 55 55 59 Anemia Labs: Results from last 7 days Lab Units 02/26/25 0513 VITAMIN B 12 pg/mL 1,129* FOLATE ng/mL 17.66 FERRITIN ng/mL 234.0 IRON ug/dL 20* TIBC ug/dL 227* IRON SATURATION % 9* Lipid Panel: No lab exists for component: CHOLHDL Urine Labs: Lab Results Component Value Date WBCU 21-50 (A) 02/24/2025 UROBILINOGEN >=8.0 (A) 03/02/2025 Additional Labs: No lab exists for component: LACTICACID , PROCALCITON Radiology ECG 12 lead Sinus rhythm with Premature supraventricular complexes Left axis deviation Left bundle branch block Abnormal ECG When compared with ECG of 03-MAR-2025 10:07, Premature supraventricular complexes are now Present Cultures Lab Results Component Value Date BLOOD CULTURE No growth at 5 days 02/23/2025 Medications Scheduled: aspirin, 81 mg, oral, Daily bisacodyl, 5 mg, oral, Daily ferrous sulfate, 325 mg, oral, Daily with breakfast [Held by provider] furosemide, 40 mg, oral, q12h metoprolol succinate XL, 75 mg, oral, Daily sennosides-docusate sodium, 1 tablet, oral, Nightly sodium chloride irrigation solution, 3,000 mL, irrigation, Continuous [Held by provider] spironolactone, 25 mg, oral, Daily tamsulosin, 0.4 mg, oral, Daily valsartan, 20 mg, oral, Daily Infusions: heparin, 0-28 Units/kg/hr, Last Rate: 18 Units/kg/hr (03/04/25 0603) As Needed: PRN medications: acetaminophen, diphenhydrAMINE, HYDROcodone-acetaminophen, HYDROmorphone, melatonin, metoprolol tartrate, Insert peripheral IV AND Saline lock IV AND sodium chloride Assessment and Plan #New onset Afib with RVR and LBBB #Acute decompensated systolic heart failure - Ejection Fraction of 15% reported on recent Echo from outside hospital - [id number] score of 2 given patients history of HTN and CHF - Hep gtt as above. - S/p BERNARDINO cardioversion on 03/03/25 - Plan for Cardiac catheterization today - Will need final recommendations on medications - Currently on Toprol XL 75 mg daily; optimize GDMT per Cardio recommendations. - No need for life-vest on discharge, per cardiology given non-ischemic decompensation of HFrEF #Cardiologic and Hypovolemic Shock, likely secondary to New onset A-fib and Acute Blood Loss Anemiafrom Rectus Shealth Hematoma - resolved. - Levophed was discontinued 02/26, patient has since been transferred out of the MICU. #Bilateral inferior rectus sheath hematoma, likely contributing to above #Right Pelvic Hematoma, likely contributing to above - Measurements were reported 15.1 x 7.9 cm on the left and 5.8 x 2.7 cm on the right - Repeat CTA abdomen measured the left side hematoma as 9.0 x 5.7 cm and a hematoma posterior to the rectus sheath in the extraperitoneal space measuring 14.5 x 7.2 cm - Vascular ok with re-starting anticoagulation as hemoglobin been stable, resumed heparin gtt on 03/02. - Vascular Surgery was consulted, hemoglobin stable, No need for surgical intervention at this time, signed off, patient to follow-up in the office on discharge #GILLIAN previously, likely prerenal secondary to atrial fibrillation and hypovolemia - GILLIAN resolved #Gross hematuria previously - Resolved - Continue to trend daily renal chemistries. - Patient no longer experiencing hematuria. - Nephrology had assisted in patients care previously, work-up performed, renal ultrasound minimal prominence of the right renal pelvis without calyceal dilatation, Nephrology signed off - Urology consulted previously, patient's Urinary Tello was upsized to 22 Latvian three-way and patient was started on CBI with immediate pink to clear return, CBI was clamped (02/24). - Urology recommending maintaining Tello on DC, follow-up with them. #Leukocytosis - Resolved - 2/2 Blood cultures on 02/22 and 2/2 Blood cultures 02/23 No growth to date. - Patient remains afebrile. #Jaundice with hyperbilirubinemia - Total bilirubin value of 3.6 today. - Historic Total bilirubin reported 2.4 (5 years ago) - AST/ALT/Alk Phos continue to be within normal reference range #ENA, Not using CPAP currently per patient #Primary Hypertension - Valsartan 20 mg started per Cardiology. #Obesity s/p gastric bypass surgery - Patient reported history of undergoing gastric bypass surgery in 2019 #Constipation - Resolved - Continue Dulcolax and Gertrude-Colace as ordered previously - Continue to monitor patient's bowel movements DVT prophylaxis: heparin gtt Diet: Dysphagia III soft diet Fluids: As ordered Code status: Full Discharge Planning Information: home with home PT Patient was seen, examined, and plans discussed with attending physician. Ilda Perez MD Internal Medicine Resident, PGY-3 [facility] Primary Pulmonology Consult Service 03/04/2025 Cosigned by Ruth Kramer MD at 03/05/2025 9:04 AM EDT Associated attestation - Ruth Kramer MD - 03/05/2025 9:04 AM EDT Patient was seen and examined with the resident on the same date of service, I discussed the findings and therapeutic plan with the resident/fellow, I agree with the documentation, assessment and plan as above except for any edits/updates below. Noted Cardiology plan to hold off cath and do Coronary CTA instead Tolerating GDMT well, BB/ARB/Aldactone Anticoagulation transition to Eliquis Discharge planning Ruth Kramer MD physician primary care sports medicine Pulmonary and critical care department [phone] * Radha Garcia, SUPERVISOR PHOSPHATIC FERTILIZER - 03/04/2025 7:14 AM EDT Physical Therapy Physical Therapy Treatment Patient Name: Lindsay Pinto : 1965 Today's Date: 03/05/2025 Problem List[1] Time : 13:24-13:54 03/04/25 1610 PT Last Visit PT Received On 03/04/25 General Subjective Pt sitting in bedside chair , agreeable to work with therapy services . See details of treatment session below : Activity Tolerance Endurance Stage III Precautions Medical Precautions telemetry Pain Assessment Pain Assessment No/denies pain Cognition Orientation Level Oriented X4 Therapeutic Exercise Therapeutic Exercise Activity 1 pt given HEP for LE's secondary to being concerned about his LE strength from a prolonged hospitilization AAROM with verbal instructions on correct technique to do LE standing theraband exercise program with blue theraband for hip extension , hip flexion hip abduction adduction , hamstring curl , modified squat 10 reps 1 set . Static Standing Balance Static Standing-Balance Support Left upper extremity supported;Right upper extremity supported;No upper extremity supported Static Standing-Level of Assistance Independent Transfers Transfer Yes Transfer 1 Transfer From 1 Sit;Chair with arms Transfer Type 1 To and from Transfer to 1 Stand Technique 1 Sit to stand;Stand to sit Transfer Device 1 none Transfer Level of Assistance 1 Independent Other Activity Other Activity 2 pt left with his HEP for LE's at bedside with black theraband to progress to next strength grade along with blue theraband . Plan PT Discharge Recommendations Patient is able to return to prior living environment;Home PT Goals: Multi-Disciplinary Problems (from Physical Therapy) Active Problems Problem: Balance Start Date: 02/25/25 Goal Start Date Expected End Date End Date LTG - Patient will maintain standing and sitting balance to allow for completion of daily activities 02/25/25 03/11/25 -- Problem: Mobility Start Date: 02/25/25 Goal Start Date Expected End Date End Date LTG - Patient will ambulate at least 50 feet as medically appropriate with stand-by/contact guard using least restrictive assistive device 02/25/25 03/11/25 -- Goal Start Date Expected End Date End Date LTG - As pt's medical stability improves, he will navigate at least 8 steps with stand-by/contact guard using device as appropriate 02/25/25 03/11/25 -- Problem: Transfers Start Date: 02/25/25 Goal Start Date Expected End Date End Date STG - Transfer from bed to chair with SBA using least restrictive assistive device 02/25/25 03/11/25 -- Goal Start Date Expected End Date End Date STG - Patient to transfer to and from sit to supine with no assistance from flat HOB 02/25/25 03/11/25 -- Goal Start Date Expected End Date End Date STG - Patient will transfer sit to and from stand with SBA using least restrictive assistive yoegdp16/28/25 03/11/25 -- Problem: PT Misc Start Date: 02/25/25 Goal Start Date Expected End Date End Date LTG - Pt will tolerate 30+ minute session with minimal rest breaks and vitals remaining in normal limits for improvements in endurance. 02/25/25 03/11/25 -- 03/04/25 1610 6 Clicks (Mobility) Help from another person turning from your back to your side while in a flat bed without using bedrails 4 Help from another person moving from lying on your back to sitting on the side of a flat bed without using bedrails 4 Help from another person moving to and from a bed to a chair (including a wheelchair) 4 Help from another person standing up from a chair using your arms (e.g. wheelchair or bedside chair) 4 Help from another person to walk in hospital room 4 Help from another person climbing 3-5 steps with a railing 3 Mobility 6 Clicks T-Score 23 [1] Patient Active Problem List Diagnosis Gout Primary hypertension Obesity ENA (obstructive sleep apnea) Ascending aorta dilatation Acute systolic CHF (congestive heart failure) (CMS/HCC) New onset a-fib (CMS/HCC) S/P gastric bypass Pericardial effusion Moderate mitral valve regurgitation Atrial fibrillation with RVR (CMS/HCC) A-fib (CMS/HCC) Hematoma Angina pectoris, unstable (CMS/HCC) Cosigned by Canelo Mendieta, PT at 03/05/2025 2:50 PM EDT * Radha Garcia, SUPERVISOR PHOSPHATIC FERTILIZER - 03/03/2025 4:34 PM EDT Physical Therapy Physical Therapy Treatment Patient Name: Lindsay Pinto : 1965 Today's Date: 03/03/2025 Problem List[1] Time : 15:35-16:01 03/03/25 1621 PT Last Visit PT Received On 03/03/25 General Subjective Pt back from his ablation sitting in bedside chair agreeable to therapy services see details of treatment session below : Activity Tolerance Endurance Stage III Precautions Medical Precautions telemetry;IV;tello Pain Assessment Pain Assessment No/denies pain Cognition Orientation Level Oriented X4 Therapeutic Exercise Therapeutic Exercise Activity 1 Standing AROM with bilat LE's with blue theraband around ankles pt worked on hip flexion , hip extension 10 reps 1 set . Balance/Neuromuscular Re-Education Balance/Neuromuscular Re-Education Activity 1 pt tired from ablation earlier today and does not want to work on standing balance today wants to save for tommorrow . Static Standing Balance Static Standing-Balance Support No upper extremity supported Static Standing-Level of Assistance Independent Static Standing-Comment/Number of Minutes no LOB Dynamic Standing Balance Dynamic Standing-Balance Support Unilateral upper extremity supported (pt pushed his IV for the second walk) Ambulation Ambulation Yes Ambulation 1 Surface 1 Level tile Device 1 (other pt pushing IV Pole) Assistance 1 Distant supervision;Independent Quality of Gait 1 pt inconsistently performing between these two assistance levels. Comments/Distance (ft) 1 100 ft x 1 , 200 ft x 1 (Resting HR 86 bpm working HR 90 bpm with ambulation in the hallway .) Stairs Stairs Yes Stairs Rails 1 Right (hand rail) Device 1 No device Assistance 1 Close supervision Quality of Stairs 1 step height 7 1/2 Comment/Number of Steps 1 12 steps Bed Mobility Bed Mobility No Transfers Transfer Yes Transfer 1 Transfer From 1 Sit;Chair with arms Transfer Type 1 To and from Transfer to 1 Stand Technique 1 Sit to stand;Stand to sit Transfer Device 1 none Transfer Level of Assistance 1 Independent Transfers 2 Transfer From 2 Stand Transfer Type 2 To Transfer to 2 Sit;Chair with arms Technique 2 Lateral (sidestepping and stepping backwards) Transfer Device 2 none (pt pushed his IV pole that he is hooked up to .) Transfer Level of Assistance 2 Independent Other Activity Other Activity 1 pt left in bedside chair at end of treatment session . PT Assessment PT Assessment/SUPERVISOR PHOSPHATIC FERTILIZER Summary pt tolerated a 26 minute treatment session and has improved with his stepnegotation abiliities being able to do the step height he has at home that is 7 1/2 . Plan PT Discharge Recommendations Patient is able to return to prior living environment;Home PT Goals: Multi-Disciplinary Problems (from Physical Therapy) Active Problems Problem: Balance Start Date: 02/25/25 Goal Start Date Expected End Date End Date LTG - Patient will maintain standing and sitting balance to allow for completion of daily activities 02/25/25 03/11/25 -- Problem: Mobility Start Date: 02/25/25 Goal Start Date Expected End Date End Date LTG - Patient will ambulate at least 50 feet as medically appropriate with stand-by/contact guard using least restrictive assistive device 02/25/25 03/11/25 -- Goal Start Date Expected End Date End Date LTG - As pt's medical stability improves, he will navigate at least 8 steps with stand-by/contact guard using device as appropriate 02/25/25 03/11/25 -- Problem: Transfers Start Date: 02/25/25 Goal Start Date Expected End Date End Date STG - Transfer from bed to chair with SBA using least restrictive assistive device 02/25/25 03/11/25 -- Goal Start Date Expected End Date End Date STG - Patient to transfer to and from sit to supine with no assistance from flat HOB 02/25/25 03/11/25 -- Goal Start Date Expected End Date End Date STG - Patient will transfer sit to and from stand with SBA using least restrictive assistive honyjc56/28/25 03/11/25 -- Problem: PT Misc Start Date: 02/25/25 Goal Start Date Expected End Date End Date LTG - Pt will tolerate 30+ minute session with minimal rest breaks and vitals remaining in normal limits for improvements in endurance. 02/25/25 03/11/25 -- 03/03/25 1621 6 Clicks (Mobility) Help from another person turning from your back to your side while in a flat bed without using bedrails 4 Help from another person moving from lying on your back to sitting on the side of a flat bed without using bedrails 4 Help from another person moving to and from a bed to a chair (including a wheelchair) 4 Help from another person standing up from a chair using your arms (e.g. wheelchair or bedside chair) 4 Help from another person to walk in hospital room 3 Help from another person climbing 3-5 steps with a railing 3 Mobility 6 Clicks T-Score 22 [1] Patient Active Problem List Diagnosis Gout Primary hypertension Obesity ENA (obstructive sleep apnea) Ascending aorta dilatation Acute systolic CHF (congestive heart failure) (CMS/HCC) New onset a-fib (CMS/HCC) S/P gastric bypass Pericardial effusion Moderate mitral valve regurgitation Atrial fibrillation with RVR (CMS/HCC) A-fib (CMS/HCC) Hematoma Cosigned by Canelo Mendieta PT at 03/04/2025 3:08 PM EDT * Oscar Pfeiffer MD - 03/03/2025 4:05 PM EDT Images from the original note were not included. Pulmonology Progress Note Patient - Lindsay Pinto Age - 59 y.o. - 1965 Date of Admission - 02/18/2025 5:46 PM Subjective Patient was seen and examined at bedside today following BERNARDINO cardioversion. Patient reports that hetolerated the procedure very well. NSR noted on telemetry. Denies chest pain or shortness of breath. Currently saturating well on RA. HPI Lindsay Pinto is an 59 y.o. male who came from home with past medical history of hypertension, severe LVH, ENA, obesity s/p gastric bypass presents as a direct mission for [facility] with newonset A-fib as well as new onset systolic CHF. Patient initially presenting to [place] with bloating and constipation. He states that for the past few weeks he has been having abdominal swelling, bloating. He states associated shortness of breath with exertion. He denies chest pain, nausea, vomiting. He does state mild fatigue. He had a CXR completed showing cardiomegaly with vascular congestion. CT of the abdomen was completed showing ascites and anasarca. Labs show a mild GILLIAN and an elevatedBNP over 5000. EKG was completed showing A-fib with RVR which is new for the patient. He was given 2 doses of digoxin due to borderline hypotension and given a dose of Xarelto. Echocardiogram was completed showing a newly dropped EF of 15 to 20% with moderate pulmonary hypertension, moderate mitralvalve regurgitation and a small pericardial effusion. He was transferred [facility] for higher level of care. Patient does follow with cardiology outpatient for LVH. Per cardiology note, the echocardiogram performed on 05/14/2023 showed LVH with an improvement in EF to 50-55%. His latest echocardiogram did show a significant drop in EF. Cardiology is onboard inpatient for his new-onset atrial fibrillation with RVR. Patient was intially treated with a Cardizem drip; however, it was discontinue due to hypot ension. He has been treated with Toprol XL 100 mg BID and digoxin 250 mcg daily. He is scheduled for BERNARDINO and cardioversion today. CT abdomen and pelvis was performed yesterday for ongoing lower abdominal pain. It did reveal The right and left rectus abdominal muscles are abnormal and contain hematomas. The left is larger in size. Hemoglobin did drop from 15.4 to 14.0, but most recent hemoglobin this morning is 14.5 with a hematocrit of 42.9. MICU was consulted after a rapid response was called around 7 AM for hypotension with a BP of 53/38. He was seen and examined at bedside this morning. Blood pressure is now stable with the most recentpressure of 110/72. The patient is speaking in full sentences. He denies any CP or SOB. He also denies lightheadedness, dizziness, or nausea. He endorses continued abdominal pain that has been present for the past two days. He states that is started after he took a shower and felt tired, so he jumped on his bed. He then felt a sudden pain. He does endorse constipation. Last bowel movement was twodays ago. Patient had another episode of hypotension later the morning of admission with a recorded blood pressure of 52/34. He was given albumin and 250 cc lactated ringer and transferred to the MICU for hemodynamic instability. OBJECTIVE Vitals height is 1.727 m (5' 7.99 ) and weight is 111 kg (244 lb 12.8 oz). His temporal temperature is 35.9 ??C (96.7 ??F). His blood pressure is 127/77 and his pulse is 85. His respiration is 24 and oxygensaturation is 99%. Temp: [35.9 ??C (96.7 ??F)-36.1 ??C (97 ??F)] 35.9 ??C (96.7 ??F) Heart Rate: [75-119] 85 Resp: [16-24] 24 BP: (98-127)/(65-86) 127/77 Physical Exam: General: Patient in no acute distress, resting in chair this morning in hospital room, appears comfortable HEENT: Normocephalic, EOMI Neck: Supple Cardiovascular: NSR Respiratory: In No acute respiratory distress, no wheezing, no rhonchi, unlabored breathing on roomair, saturating above 95 percent Abdomen: Soft, nontender, nondistended, no guarding or rebound Extremities: No edema, No tenderness Neuro: No focal deficits observed, patient moves all limbs against gravity Skin: Warm, Mild Jaundice noted Weight: Admission weight: 118 kg (259 lb 12.8 oz) Wt Readings from Last 1 Encounters: 03/03/25 111 kg (244 lb 12.8 oz) Input/Output: Intake/Output Summary (Last 24 hours) at 03/03/2025 1606 Last data filed at 03/03/2025 1200 Gross per 24 hour Intake 1402.9 ml Output 980 ml Net 422.9 ml Lab Results CBC: Results from last 7 days Lab Units 03/03/25 1254 03/03/25 0346 03/02/25 0426 02/28/25 0342 02/27/25 2338 WBC AUTO 10*3/uL -- 5.84 -- 8.84 9.07 HEMOGLOBIN g/dL -- 8.2* -- 8.3* 8.9* HEMATOCRIT % -- 24.1* -- 24.3* 25.1* PLATELETS AUTO 10*3/uL 358 370 366 255 261 Coagulation: Results from last 7 days Lab Units 03/03/25 1254 03/02/25 1409 APTT Seconds 41.8* 39.7* Metabolic Panel: Results from last 7 days Lab Units 03/03/25 0346 03/02/25 0426 03/01/25 0512 SODIUM mmol/L 132* 131* 130* POTASSIUM mmol/L 4.0 4.0 3.9 CHLORIDE mmol/L 102 103 103 CO2 mmol/L 25 25 22 BUN mg/dL 12 13 14 CREATININE mg/dL 0.69* 0.68* 0.67* GLUCOSE mg/dL 88 91 94 CALCIUM mg/dL 7.8* 8.1* 7.7* PHOSPHORUS mg/dL 2.9 2.5 2.4* MAGNESIUM mg/dL 2.0 2.0 2.0 Liver Panel: Results from last 7 days Lab Units 03/03/25 0346 03/02/25 0426 03/01/25 0512 ALBUMIN g/dL 2.9* 3.0* 2.9* BILIRUBIN TOTAL mg/dL 4.0* 4.3* 3.6* ALT U/L 18 20 17 AST U/L 23 21 17 ALK PHOS U/L 55 59 58 Anemia Labs: Results from last 7 days Lab Units 02/26/25 0513 VITAMIN B 12 pg/mL 1,129* FOLATE ng/mL 17.66 FERRITIN ng/mL 234.0 IRON ug/dL 20* TIBC ug/dL 227* IRON SATURATION % 9* Lipid Panel: No lab exists for component: CHOLHDL Urine Labs: Lab Results Component Value Date WBCU 21-50 (A) 02/24/2025 UROBILINOGEN >=8.0 (A) 03/02/2025 Additional Labs: No lab exists for component: LACTICACID , PROCALCITON Radiology Transesophageal echo (BERNARDINO) with possible cardioversion [facility] Heart Station [address] [id number] [phone] (fax) Transesophageal Echocardiogram-[facility] Name: LINDSAY PINTO Study Date: 03/03/2025 09:24 AM B/P: 108 mmHg/71 mmHg HR: 84 bpm Date of : 1965 Location: [facility] Height: 68 in. Age: 59 year(s) Patient Room: 0825 Weight: 244 lb. Gender: Male Patient Status: InPt BSA: 2.22 m2 Indication: Atrial Fibrillation Examination: BERNARDINO/Limited Doppler/CFI, Agitated Saline Image Quality: Fair Patient Consent: Informed, written consent was obtained for the procedure Exam Details Contrast: I.V. dose of agitated saline Exam Location: A BERNARDINO was performed in the [facility] without complications Anesthesia Pharyngeal anesthesia with viscous Lidocaine Conclusions Left Ventricle: The left ventricle is normal size. Global left ventricular systolic function is severely reduced. The EF is 20 % visually. Left ventricular wall thickness is normal. Diffuse global hypokinesis. Right Ventricle: The right ventricle appears normal in size. Right ventricular systolic function appears normal. Left Atrium: The left atrium appears enlarged. Left Atrium Appendage: Normal left atrial appendage, no thrombus seen. Pericardium: There is a minimal pericardial effusion with fibrinous content/thrombus close to transverse sinus Overall Conclusions: Biphasic cardioversion was performed at 360 J, the patient was converted to sinus rhythm Medications Date Time Name Route Form Dose Units Ordered By Given By Comment 03/03/2025 10:12 AM Midazolam HCL (Versed) 6 milligrams 03/03/2025 10:12 AM Fentanyl (Opiates) 75 micrograms Measurements Left Ventricle Label Value Normal Value LVEF visual 20 % Valvular Assessment LVOT 0.7 - 1.1 m/sec Aortic Valve 1.0 - 1.7 m/sec Mitral Valve 0.6 - 1.3 m/sec Tricuspid Valve 0.3 - 0.7 m/sec Pulmonic Valve 0.6 - 0.9 m/sec Regurgitation No trivMil No No Findings Left Ventricle: The left ventricle is normal size. Global left ventricular systolic function is severely reduced. The EF is 20 % visually. Left ventricular wall thickness is normal. Diffuse global hypokinesis. Right Ventricle: The right ventricle appears normal in size. Right ventricular systolic function appears normal. Left Atrium: The left atrium appears enlarged. Left Atrium Appendage: The left atrial appendage is normal. The left atrial appendage is monolobular. Normal left atrial appendage, no thrombus seen. IAS: No intracardiac shunt by agitated saline injections. Right Atrium: The right atrium is normal in size. Mitral Valve: The mitral valve is normal in mobility and thickness. Trvial to mild mitral regurgitation. Aortic Valve: The aortic valve is normal. No aortic valve regurgitation. The aortic valve is trileaflet. Tricuspid Valve: Normal tricuspid valve. No tricuspid regurgitation. Pulmonic Valve: Normal pulmonary valve. No pulmonary regurgitation. Aorta: Minimal atherosclerotic plaque is seen in the aorta. Pericardium: There is a minimal pericardial effusion with fibrinous content/thrombus close to transverse sinus Procedure Staff Reading Group: [facility] Referring Physician: JALEN LINDER Mission Planner: ZUHAIR Caban, RDCS Ordering Physician: JOSE MENESES Electrophysiology procedure Narrative: COMPLICATIONS: None. OPERATIVE TERM: DC cardioversion. An informed consent was obtained from the patient after explaining the indication, risk and benefits, and alternatives. The patient understood, agreed, and signed the consent form. The patient was brought to the microbiological lab technician and transesophageal echocardiogram was performed under conscious sedation. OPERATIVE TECHNIQUE: The transesophageal echocardiogram did not show any thrombus in the left atrial appendage. Full BERNARDINO reported elsewhere. After the transesophageal echocardiogram, a synchronized biphasic cardioversion was done with 360 joules of energy. The patient successfully converted to the sinus rhythm as evidence by the EKG done postprocedure. His hemodynamics remained stable during the procedure. Impression: Successful DC cardioversion. ECG 12 lead Normal sinus rhythm with sinus arrhythmia Left axis deviation Left bundle branch block Abnormal ECG When compared with ECG of 03-MAR-2025 09:21, Sinus rhythm has replaced Atrial fibrillation Confirmed by Rosalia MOULTON SAMER J. ([id number]) on 03/03/2025 11:48:40 AM ECG 12 lead Atrial fibrillation Left bundle branch block Abnormal ECG Confirmed by Rosalia MOULTON SAMER J. (58) on 03/03/2025 9:33:26 AM Cultures Lab Results Component Value Date BLOOD CULTURE No growth at 5 days 02/23/2025 Medications Scheduled: bisacodyl, 5 mg, oral, Daily ferrous sulfate, 325 mg, oral, Daily with breakfast [Held by provider] furosemide, 40 mg, oral, q12h metoprolol succinate XL, 25 mg, oral, Once [START ON 03/04/2025] metoprolol succinate XL, 75 mg, oral, Daily sennosides-docusate sodium, 1 tablet, oral, Nightly sodium chloride irrigation solution, 3,000 mL, irrigation, Continuous [Held by provider] spironolactone, 25 mg, oral, Daily tamsulosin, 0.4 mg, oral, Daily valsartan, 20 mg, oral, Daily Infusions: heparin, 0-28 Units/kg/hr, Last Rate: 17 Units/kg/hr (03/03/25 1346) As Needed: PRN medications: acetaminophen, diphenhydrAMINE, HYDROcodone-acetaminophen, HYDROmorphone, melatonin, Insert peripheral IV AND Saline lock IV AND sodium chloride Assessment and Plan #Cardiologic and Hypovolemic Shock, likely secondary to New onset A-fib and Acute Blood Loss Anemiafrom Rectus Shealth Hematoma - resolved. - Levophed was discontinued 02/26, patient has since been transferred out of the MICU. #Bilateral inferior rectus sheath hematoma, likely contributing to above #Right Pelvic Hematoma, likely contributing to above - Measurements were reported 15.1 x 7.9 cm on the left and 5.8 x 2.7 cm on the right - Repeat CTA abdomen measured the left side hematoma as 9.0 x 5.7 cm and a hematoma posterior to the rectus sheath in the extraperitoneal space measuring 14.5 x 7.2 cm - Vascular ok with re-starting anticoagulation as hemoglobin been stable, resumed heparin gtt on 03/02. - Vascular Surgery was consulted, hemoglobin stable, No need for surgical intervention at this time, signed off, patient to follow-up in the office on discharge #New onset Afib with RVR and LBBB #Acute decompensated systolic heart failure - Ejection Fraction of 15% reported on recent Echo from outside hospital - [id number] score of 2 given patients history of HTN and CHF - Hep gtt as above. - S/p BERNARDINO cardioversion on 03/03/25. Plan for Cardiac catheterization tomorrow, NPO at midnight. - Will need final recommendations on medications - Currently on Toprol XL 75 mg daily; optimize GDMT per Cardio recommendations. - No need for life-vest on discharge, per cardiology given non-ischemic decompensation of HFrEF #GILLIAN previously, likely prerenal secondary to atrial fibrillation and hypovolemia - GILLIAN resolved #Gross hematuria previously - Resolved - Continue to trend daily renal chemistries. - Patient no longer experiencing hematuria. - Nephrology had assisted in patients care previously, work-up performed, renal ultrasound minimal prominence of the right renal pelvis without calyceal dilatation, Nephrology signed off - Urology consulted previously, patient's Urinary Tello was upsized to 22 Latvian three-way and patient was started on CBI with immediate pink to clear return, CBI was clamped (02/24). - Urology recommending maintaining Tello on DC, follow-up with them. #Leukocytosis - Resolved - 2/2 Blood cultures on 02/22 and 2/2 Blood cultures 02/23 No growth to date. - Patient remains afebrile. #Jaundice with hyperbilirubinemia - Total bilirubin value of 3.6 today. - Historic Total bilirubin reported 2.4 (5 years ago) - AST/ALT/Alk Phos continue to be within normal reference range #ENA, Not using CPAP currently per patient #Primary Hypertension - Valsartan 20 mg started per Cardiology. #Obesity s/p gastric bypass surgery - Patient reported history of undergoing gastric bypass surgery in 2019 #Constipation - Resolved - Continue Dulcolax and Gertrude-Colace as ordered previously - Continue to monitor patient's bowel movements DVT prophylaxis: heparin gtt Diet: Dysphagia III soft diet Fluids: As ordered Code status: Full Discharge Planning Information: home with home PT Patient was seen, examined, and plans discussed with attending physician. Oscar Pfeiffer MD Internal Medicine Resident, PGY-3 [facility] Primary Pulmonology Consult Service 03/03/2025 Cosigned by Ruth Kramer MD at 03/04/2025 10:02 AM EDT Associated attestation - Ruth Kramer MD - 03/04/2025 10:02 AM EDT Patient was seen and examined with the resident on the same date of service, I discussed the findings and therapeutic plan with the resident/fellow, I agree with the documentation, assessment and plan as above except for any edits/updates below. Cardiology managing, stated on Lopressor, ARB and low dose heparin If no drop in hemoglobin, planning cardiac cath Ruth Kramer MD physician primary care sports medicine Pulmonary and critical care department [phone] * Arminda Solitario MD - 03/03/2025 3:46 PM EDT Images from the original note were not included. . Cardiology Progress Note Subjective Patient sitting up in chair. Says he feels well. Denies CP, SOB, palpitations, or dizziness. He hadTEE and cardioversion this morning to NSR. He tolerated heparin IV overnight without any signs of bleeding HPI: Lindsay Pinto is a 59 y.o. male with a PMHx of hypertension, severe LVH, ENA, obesity s/p gastric bypass presents as a direct mission for [facility] with progressively worsening dyspnea, abdominal swelling and anasarca in the setting of new onset A-fib as well as new onset systolic CHF. He had a CXR completed showing cardiomegaly with vascular congestion. CT of the abdomen was completed showing ascites and anasarca. Labs show a mild GILLIAN and an elevated BNP over 5000. EKG was completed showing A-fib with RVR which is new for the patient. He was given 2 doses of digoxin due to borderline hypotension and given a dose of Xarelto. Echocardiogram was completed showing a newly dropped EF of 15 to 20% with moderate pulmonary hypertension, moderate mitral valve regurgitation and a small pericardial effusion. He was transferred [facility] for higher level of care. At [facility], he was started on Lasix 40 mg IV BID and he has made nearly net negative 3L of urine. Vitally, he is afebrile, tachycardic in the 100s, BP 100/63, satting well on RA. Cardiac history: Severe LVH per 2019 Echo that showed LV dysfunction, EF 40% and Echo 05/14/23 showed improvement in EF 50-55%, aortic dilation, mitral valve regurg Cardiac workup: ECHO 05/14/2023: Global LV systolic function is low normal limits; visually estimated EF 50-55%. RVis normal in size and function. Normal diastolic function. Biatrial enlargement. Mild mitral regurg. Aortic root is mildly dilated. Trivial pericardial effusion is seen Objective Current Medications[1] Objective: Patient Vitals for the past 24 hrs: BP Temp Temp src Pulse Resp SpO2 Weight 03/03/25 1200 127/77 35.9 ??C (96.7 ??F) Temporal 85 24 99 % -- 03/03/25 0959 108/71 -- -- 75 17 100 % -- 03/03/25 0957 103/68 -- -- 102 16 100 % -- 03/03/25 0954 106/72 -- -- (!) 119 17 94 % -- 03/03/25 0951 98/75 -- -- 107 18 100 % -- 03/03/25 0947 102/79 -- -- 106 18 100 % -- 03/03/25 0945 107/86 -- -- 105 16 99 % -- 03/03/25 0941 110/80 -- -- (!) 115 17 100 % -- 03/03/25 0939 115/74 -- -- 91 16 100 % -- 03/03/25 0933 117/77 -- -- 99 16 100 % -- 03/03/25 0932 104/77 -- -- 101 16 100 % -- 03/03/25 0915 110/65 -- -- (!) 112 17 98 % -- 03/03/25 0731 106/72 36.1 ??C (96.9 ??F) Temporal 83 20 100 % -- 03/03/25 0537 111/77 -- -- 95 -- 99 % -- 03/03/25 0519 -- -- -- -- -- -- 111 kg (244 lb 12.8 oz) 03/02/25 2019 112/67 -- -- 98 -- 97 % -- 03/02/25 1612 99/69 36.1 ??C (97 ??F) Temporal 87 22 100 % -- Physical Examination: Physical Exam Constitutional: Appearance: Normal appearance. Cardiovascular: Rate and Rhythm: Normal rate and regular rhythm. Pulses: Normal pulses. Heart sounds: Normal heart sounds. Pulmonary: Effort: Pulmonary effort is normal. No respiratory distress. Breath sounds: Normal breath sounds. Abdominal: General: Bowel sounds are normal. There is no distension. Palpations: Abdomen is soft. Neurological: General: No focal deficit present. Mental Status: He is oriented to person, place, and time. Relevant Lab Results Lab Results Component Value Date WBC 5.84 03/03/2025 HGB 8.2 (L) 03/03/2025 HCT 24.1 (L) 03/03/2025 MCV 89.6 03/03/2025 PLT 358 03/03/2025 Lab Results Component Value Date GLUCOSE 88 03/03/2025 CALCIUM 7.8 (L) 03/03/2025 NA 132 (L) 03/03/2025 K 4.0 03/03/2025 CO2 25 03/03/2025 CL 102 03/03/2025 BUN 12 03/03/2025 CREATININE 0.69 (L) 03/03/2025 Encounter Date: 02/18/25 ECG 12 lead Result Value Ventricular Rate 79 Atrial Rate 79 KS Interval 182 QRS DURATION 182 QT Interval 428 QTC CALCULATION(BAZETT) 490 P Moselle 65 R-Moselle -35 T Wave Moselle 123 Impression Normal sinus rhythm with sinus arrhythmia Left axis deviation Left bundle branch block Abnormal ECG When compared with ECG of 03-MAR-2025 09:21, Sinus rhythm has replaced Atrial fibrillation Confirmed by Rosalia MOULTON, HUGO Cabrera ([id number]) on 03/03/2025 11:48:40 AM No results found for: CKTOTAL , CKMB , CKMBINDEX , TROPONINI Limited Echo (TTE) w/wo Limited Doppler, Color Flow, Imaging Agent, Strain, 3D, Bubble Study Result Date: 03/02/2025 1 1 [facility] Heart [facility] [address] [place] [address] [phone] (fax) Echocardiogram-[facility] Name: LINDSAY PINTO Study Date: 03/02/2025 12:02 PM B/P: 111 mmHg/69 mmHg HR: 84 bpm Date of : 1965 Location: [facility] Height: 68 in. Age: 59 year(s) Patient Room: 3174 Weight: 247 lb. Gender: Male Patient Status: InPt BSA: 2.24 m2 Indication: Congestive Heart Failure, Atrial Fibrillation Examination: Limited Echo/Limited Doppler, Color flow imaging, Lumason Contrast Image Quality: Fair Patient Consent: Procedureexplained to patient Exam Details Contrast: I.V. dose of Lumason Conclusions Left Ventricle: The left ventricle is moderately enlarged. Global left ventricular systolic function is severely reduced. The calculated Biplane EF is 24 %. The EF is 15 % visually. Left ventricular wall thickness is at upper normal limits. Diffuse global hypokinesis. Unable to assess diastolic dysfunction. The changes are consistent with eccentric hypertrophy. Right Ventricle: The right ventricle is at upper normal limits in size. Right ventricular systolic function appears reduced. Doppler studies suggest normal right sided pressures. Left Atrium: The left atrium is severely enlarged. Overall Conclusions: Due to suboptimal imaging Lumason contrast was administered for opacification and better delineation of endocardial borders. Rhythm is atrial fibrillation. Measurements Left Ventricle Label Value Normal Value LVOT VTI 11.3 cm (18cm - 22cm) LVOT PGmax 2 mmHg LVEF visual 15 % LVDd, 2D 6.5 cm (4.2cm - 5.9cm) LVDs, 2D 6.24 cm (2.1cm - 4cm) IVSd, 2D 1 cm (0.6cm - 1.1cm) LVPWd, 2D 0.95 cm (0.6cm - 1cm) LVEF, BP 24 % (55% - 65%) LV Mass, 2D ASE 274.1 g LV Mass Index, 2D ASE 122.4 g/m?? (50g/m?? - 102.4g/m??) RWT, MM 0.29 (0 - 0.42) LVSVI, 2D 19.6 ml/m2 LVOT PGmean 1 mmHg Right Ventricle Label Value Normal Value RVDd, 2D 4.27 cm (1.9cm - 3.8cm) Left Atrium Label Value Normal Value LA Volume, BP 142 ml (18ml - 58ml) LAESV index, BP 63.4 ml/m?? Right Atrium Label Value Normal Value RA Area 21.1 cm?? Tricuspid Valve Label Value Normal Value RA Pressure 3 mmHg RVSP 24 mmHg TR Vmax 2.31 m/s Aorta Label Value Normal Value AoRoot, 2D 3.7 cm (1.4cm - 3.8cm) Valvular Assessment LVOT 0.7 - 1.1 m/sec Aortic Valve 1.0 - 1.7 m/sec Mitral Valve 0.6 - 1.3 m/sec Tricuspid Valve 0.3 - 0.7 m/sec Pulmonic Valve 0.6 -0.9 m/sec Regurgitation No trivMil Trivial No Stenosis No No No No Max Velocity 0.70 m/sec FindingsLeft Ventricle: The left ventricle is moderately enlarged. Global left ventricular systolic function is severely reduced. The calculated Biplane EF is 24 %. The EF is 15 % visually. Left ventricular wall thickness is at upper normal limits. Diffuse global hypokinesis. Unable to assess diastolic dysf unction. The changes are consistent with eccentric hypertrophy. Right Ventricle: The right ventricle is at upper normal limits in size. Right ventricular systolic function appears reduced. Doppler studies suggest normal right sided pressures. Left Atrium: The left atrium is severely enlarged. RightAtrium: The right atrium is severely enlarged. Mitral Valve: There is nonspecific thickening of themitral valve leaflet. Trvial to mild mitral regurgitation. No mitral valve stenosis. Aortic Valve: The aortic valve is normal. No aortic valve regurgitation. No aortic valve stenosis. Tricuspid Valve: Normal tricuspid valve. Trivial tricuspid regurgitation. No tricuspid valve stenosis. Pulmonic Valve: Normal pulmonary valve. No pulmonary regurgitation. No pulmonic valve stenosis. Aorta: The aortic root exhibits dilatation. Great Vessels: IVC: The IVC is not visualized. Pericardium: There is a minimal pericardial effusion. Procedure Staff Reading Group: [facility] Referring Physician: JALEN LINDER Mission Planner: ZUHAIR Caban, RDCS Ordering Physician: RUTH KRAMER No nuclear medicine results found for the past 12 months Relevant Imaging Results Electrophysiology procedure Narrative: COMPLICATIONS: None. OPERATIVE TERM: DC cardioversion. An informed consent was obtained from the patient after explaining the indication, risk and benefits, and alternatives. The patient understood, agreed, and signed the consent form. The patient was brought to the microbiological lab technician and transesophageal echocardiogram was performed under conscious sedation. OPERATIVE TECHNIQUE: The transesophageal echocardiogram did not show any thrombus in the left atrial appendage. Full BERNARDINO reported elsewhere. After the transesophageal echocardiogram, a synchronized biphasic cardioversion was done with 360 joules of energy. The patient successfully converted to the sinus rhythm as evidence by the EKG done postprocedure. His hemodynamics remained stable during the procedure. Impression: Successful DC cardioversion. ECG 12 lead Normal sinus rhythm with sinus arrhythmia Left axis deviation Left bundle branch block Abnormal ECG When compared with ECG of 03-MAR-2025 09:21, Sinus rhythm has replaced Atrial fibrillation Confirmed by Rosalia MOULTON, HUGO Cabrera ([id number]) on 03/03/2025 11:48:40 AM ECG 12 lead Atrial fibrillation Left bundle branch block Abnormal ECG Confirmed by Rosalia MOULTON, HUGO Cabrera ([id number]) on 03/03/2025 9:33:26 AM ASSESSMENT Acute on chronic HFrEF EF 20% probably tachycardia mediated . Clinically stable. Should rule out underlying CAD Paroxysmal A-fib with RVR [id number] 2, s/p BERNARDINO and cardioversion today and he is now in sinus rhythm with left bundle branch block. He is tolerating heparin IV infusion Chronic left bundle branch block Worsening GILLIAN, resolved Acute blood loss anemia due to rectal sheath hematoma after starting AC, S/P transfusion, HB stable Small pericardial effusion on Echo Mild aortic dilatation Primary hypertension ENA S/p gastric bypass Obesity PLAN Patient was successfully cardioverted to NSR this morning. Vascular was okay with restarting anticoagulation, he was started yesterday on heparin IV infusion and he has been tolerating it well If there is no concern for drop in Hb of bleeding, we will proceed with coronary angiogram tomorrowfor ischemic evaluation Change Lopressor 75 mg BID to metoprolol succinate 75 mg daily Start valsartan 20 mg daily Continue to advance GDMT as tolerated After cardiac cath he should be started on oral anticoagulation If no coronary artery disease he should continue GDMT for 3 months with repeat echo after that to evaluate ejection fraction and the need for ICD biventricular pacemaker Cardiology will continue to follow patient. This note was, at least in part, completed using a voice bottle inspector system. Every effort was made to ensure accuracy. However, inadvertent computerized bottle inspector errors may be present. Arminda Solitario MD PGY-5 Radio Repair Teacher [facility] Pager: [phone] [1] Current Facility-Administered Medications: acetaminophen (Tylenol) tablet 650 mg, 650 mg, oral, q6h PRN, Carol Carter CNP, 650 mg at bisacodyl (Dulcolax) EC tablet 5 mg, 5 mg, oral, Daily, Norm North MD, 5 mg at 03/03/25 1346 [Held by provider] digoxin (Lanoxin) tablet 250 mcg, 250 mcg, oral, Daily, Susan Mcpherson MD, 250 mcgat 02/21/25 0844 diphenhydrAMINE (BENADryl) capsule 25 mg, 25 mg, oral, q8h PRN, Jordan Pitts MD, 25 mg at 02/25/25 0149 ferrous sulfate tablet 325 mg, 325 mg, oral, Daily with breakfast, Marizol Brizuela DO, 325 mg at 03/03/25 1346 [Held by provider] furosemide (Lasix) tablet 40 mg, 40 mg, oral, q12h, Gabriele Yoder MD, 40 mg at 02/21/25 2255 heparin infusion 100 units/mL in D5W, 0-28 Units/kg/hr, intravenous, Continuous, Arminda Solitario MD, Last Rate: 18.9 mL/hr at 03/03/25 1346, 17 Units/kg/hr at 03/03/25 1346 HYDROcodone-acetaminophen (Montrose) 5-325 mg per tablet 1 tablet, 1 tablet, oral, q6h PRN, Suleiman Corcoran MD, 1 tablet at 02/21/25 2240 HYDROmorphone (Dilaudid) injection 0.2 mg, 0.2 mg, intravenous, q4h PRN, Norm North MD, 0.2 mg at 02/22/25 1909 melatonin tablet 5 mg, 5 mg, oral, Nightly PRN, Carol Carter, VACATION PLANNER metoprolol succinate XL (Toprol-XL) 24 hr tablet 50 mg, 50 mg, oral, Daily, Arminda Solitario MD, 50 mgat 03/03/25 1346 metoprolol tartrate (Lopressor) injection 5 mg, 5 mg, intravenous, Once, Gabriele Yoder MD sennosides-docusate sodium (Gertrude-Colace) 8.6-50 mg per tablet 1 tablet, 1 tablet, oral, Nightly, Carol Bermudez MD, 1 tablet at 03/02/25 2101 Insert peripheral IV, , , Once AND Saline lock IV, , , Once AND sodium chloride flush 10 mL, 10 mL, intravenous, q8h PRN, Carol Carter, VACATION PLANNER sodium chloride irrigation solution 0.9 % 3,000 mL, 3,000 mL, irrigation, Continuous, Lo Vasquez MD, 3,000 mL at 02/23/25 1815 [Held by provider] spironolactone (Aldactone) tablet 25 mg, 25 mg, oral, Daily, Susan Mcpherson MD, 25mg at 02/21/25 0843 tamsulosin (Flomax) 24 hr capsule 0.4 mg, 0.4 mg, oral, Daily, Norman Tovar MD, 0.4 mg at 346 valsartan (Diovan) tablet 20 mg, 20 mg, oral, Daily, Arminda Solitario MD, 20 mg at 03/03/25 1345 Cosigned by Jose Meneses MD at 03/03/2025 5:55 PM EDT Associated attestation - Jose Meneses MD - 03/03/2025 5:55 PM EDT By using the attestations below, the signing clinician agrees that I have read and verify that thedocumentation has been personally reviewed by me and ensure that the documentation accurately reflects the encounter. GC: I personally saw this patient on the day of the encounter, performed the brumfield portion(s) of the service and participated in the management and confirm the resident's/ fellow's Dr Solitario's documentation. Please note there may be an additional personal documentation from me. Jose Meneses MD, FACC * Sun Castellanos, MARJORIE - 03/03/2025 2:48 PM EDT Occupational Therapy Occupational Therapy Treatment Patient Name: Lindsay Pinto : 1965 Today's Date: 03/03/2025 03/03/25 1448 Time Calculation Start Time 1448 Stop Time 1502 Time Calculation (min) 14 min Problem List Problem List[1] Treatment: 03/03/25 1448 OT Last Visit OT Received On 03/03/25 General Subjective Pt in bed upon arrival, I'd like to brush my teeth. Family/Caregiver Present No Precautions Medical Precautions telemetry;IV Pain Assessment Pain Assessment No/denies pain Cognition Overall Cognitive Status WFL Orientation Level Oriented X4 Cognition Comments PT pleasant and cooperative throughout Grooming Grooming Level of Assistance Close supervision Grooming Where Assessed Standing sinkside Grooming Comments to complete facial hygiene, oral hygiene Static Sitting Balance Static Sitting-Balance Support Feet supported Static Sitting-Level of Assistance Independent Dynamic Sitting Balance Dynamic Sitting-Balance Support Feet supported Dynamic Sitting-Balance Forward lean;Reaching for objects;Reaching across midline;Trunk control activities Dynamic Sitting Balance-Level of Assistance Distant supervision Static Standing Balance Static Standing-Balance Support No upper extremity supported Static Standing-Level of Assistance Distant supervision Dynamic Standing Balance Dynamic Standing-Balance Support No upper extremity supported Dynamic Standing-Balance Forward lean;Reaching for objects;Reaching across midline Dynamic Standing Balance-Level of Assistance Close supervision Bed Mobility Bed Mobility Yes Bed Mobility 1 Bed Mobility From 1 Supine Bed Mobility Type 1 To Bed Mobility to 1 Short sit Level of Assistance 1 Distant supervision Transfers Transfer Yes Transfer 1 Transfer From 1 Sit Transfer Type 1 To and from Transfer to 1 Stand Technique 1 Sit to stand;Stand to sit Transfer Level of Assistance 1 Distant supervision Transfers 2 Transfer From 2 Bed Transfer Type 2 To Transfer to 2 Chair with arms Technique 2 Sit to stand;Stand to sit Transfer Level of Assistance 2 Distant supervision Activity Tolerance Activity Tolerance Comments Standing activities at sink w/ no LOB, no fatigue reported Other Activity Other Activity 1 Pt left in bedside with call light and needs accessible. OT Assessment OT Impairments Decreased endurance;Decreased functional mobility OT Assessment/RETAIL EVENT ASSISTANT Summary PT is progressing towards (I) with self care tasks, bed mobility and transfers. OT Education/Comments Activity promotion Plan Level of assist 1 assist Treatment Interventions ADL retraining;Functional transfer training;Endurance training;Patient/family training;Neuromuscular reeducation;Compensatory technique education OT Plan Skilled OT OT Frequency 5 times per week OT Discharge Recommendations Patient is able to return to prior living environment Equipment Recommended shower chair OT - Discharge Recommendations Placed Yes Outcome Assessments 03/03/25 1500 AM-PAC 6 Clicks Putting on and taking off regular lower body clothing? 4 Bathing(Including washing,rinsing,drying)? 4 Toileting, which includes using the toilet,bedpan,or urinal? 4 Putting on and taking off regular upper body clothing? 4 Taking care of personal grooming such as brushing teeth? 4 Eating meals? 4 Total Score OT [facility] 24 OT Goals: Multi-Disciplinary Problems (from Occupational Therapy) Active Problems Problem: Bathing Start Date: 02/25/25 Goal Start Date Expected End Date End Date LTG - Patient will utilize adaptive techniques to bathe body with stand- by/contact guard 02/25/25 03/11/25 -- Problem: Dressings Lower Extremities Start Date: 02/25/25 Goal Start Date Expected End Date End Date LTG - Patient will dress lower body with stand-by/contact guard 02/25/25 03/11/25 -- Problem: Dressing Upper Extremities Start Date: 02/25/25 Goal Start Date Expected End Date End Date LTG - Patient will complete upper body dressing with no assistance 02/25/25 03/11/25 -- Problem: Grooming Start Date: 02/25/25 Goal Start Date Expected End Date End Date STG - Patient will tolerate standing sink side to complete grooming with no assistance 02/25/25 03/11/25 -- Problem: Toileting Start Date: 02/25/25 Goal Start Date Expected End Date End Date LTG - Patient will utilize adaptive techniques/equipment to complete daily toileting tasks with no assistance 02/25/25 03/11/25 -- Problem: OT Misc Start Date: 02/25/25 Goal Start Date Expected End Date End Date Pt will demo increased activity tolerance by participating in 20 minutes of dyn. sitting/standing tasks in least restrictive environment with mod. Indep. as needed for safe completion of all functional tasks and functional ambulation/transfers. 02/25/25 03/11/25 -- Goal Start Date Expected End Date End Date Pt will complete functional transfers and functional ambulation with stand- by/contact guard using least restrictive device. 02/25/25 03/11/25 -- [1] Patient Active Problem List Diagnosis Gout Primary hypertension Obesity ENA (obstructive sleep apnea) Ascending aorta dilatation Acute systolic CHF (congestive heart failure) (CMS/HCC) New onset a-fib (CMS/HCC) S/P gastric bypass Pericardial effusion Moderate mitral valve regurgitation Atrial fibrillation with RVR (CMS/HCC) A-fib (CMS/HCC) Hematoma Cosigned by Caity Delaney OT at 03/04/2025 11:56 AM EDT * Radha Garcia PTA - 03/03/2025 12:08 PM EDT Physical Therapy Am Cancellation note for Saturday03/03/2025 Pt per nursing is not available for his physical therapy treatment session this am secondary to being off the floor for BERNARDINO and cardioversion . Will recheck on pt this afternoon time permitting . Attempted time: 09:35-09:38 Cosigned by Canelo Mendieta, PT at 03/04/2025 3:06 PM EDT * Romina Young, RD - 03/03/2025 9:29 AM EDT Adult Nutrition Assessment: Name: Lindsay Pinto Date: 1965 Date of Visit: 03/03/25 Admission Dx: Acute systolic CHF (congestive heart failure) (CMS/HCC) [I50.21] A-fib (CMS/HCC) [I48.91] Reason for assessment: follow-up Information obtained from: patient, medical record, and nurse Medical History[1] Current Medications: bisacodyl, 5 mg, oral, Daily [Held by provider] digoxin, 250 mcg, oral, Daily ferrous sulfate, 325 mg, oral, Daily with breakfast [Held by provider] furosemide, 40 mg, oral, q12h metoprolol tartrate, 5 mg, intravenous, Once metoprolol tartrate, 75 mg, oral, BID sennosides-docusate sodium, 1 tablet, oral, Nightly sodium chloride irrigation solution, 3,000 mL, irrigation, Continuous [Held by provider] spironolactone, 25 mg, oral, Daily tamsulosin, 0.4 mg, oral, Daily [Held by provider] valsartan, 80 mg, oral, Daily heparin, 0-28 Units/kg/hr, Last Rate: 17 Units/kg/hr (03/03/25 0501) sodium chloride, , Last Rate: 50 mL/hr (03/03/25 0920) Labs: 0 Lab Value Date/Time POCGLU 125 (H) 02/22/2025 1134 BUN 12 03/03/2025 0346 CREATININE 0.69 (L) 03/03/2025 0346 NA 132 (L) 03/03/2025345 K 4.0 03/03/2025345 PHOS 2.9 03/03/2025345 MG 2.0 03/03/2025345 HGB 8.2 (L) 03/03/2025345 WBC 5.84 03/03/2025345 Allergies: Allergies[2] Nutrition Problems: Swallowing Assessment: Swallow screen 03/03 Mouth: missing teeth, denies difficulty chewing Abdominal Assessment: Last BM 03/03 Bilateral inferior rectus sheath hematomas I/O: Urine output: 1181 mL / 24 hrs Net fluid: -9.8 L Appetite: Good Cognition: A/O x4 Skin Integrity: Intact Edema: Non-pitting generalized and RLE LLE +1 Other Factors: EF 15% BERNARDINO + cardioversion today Possible lifevest @ discharge Nutrition Data/Clinical Indicators of Nutrition Status: Height: 172.7 cm (5' 7.99 ) Weight: 111 kg (244 lb 12.8 oz) BMI (Calculated): 37.23 Admission Weight: 118 kg IBW: 70 kg Nutrition Assessment: 02/19/25 Pt reported that his appetite has been decreased for the past 3 weeks as he has been constipated. Pt reported that during this time has been eating a lot less than normal and has been eating things like soup and half a sandwich. Pt reported that at baseline he does not eat a lot as he has had gastric bypass surgery. Pt reported that typically he will have toast and protein shake for breakfast. Snack of yogurt. Lunch egg salad and cheese. Snack of sunflower seeds. Dinner will depend. Pt reportedthat he likes fruits and tries to focus on protein at his meals. Pt denied wanting snacks while here but is agreeable to boost. Pt reported that he does not add a lot of salt to his foods. 03/03/25 Appetite/intakes good upon admission. Documented intakes indicate average of 85% x13 recorded mealssince admission. Pt reports taking vitamin C, MVI, vitamin D and calcium @ home with history of gastric bypass surgery. Pt reports consuming BGC upon admission. Dietary Orders (From admission, onward) Start Ordered 03/03/25 0001 Diet NPO Diet effective midnight Comments: No exceptions Question: Reason for NPO: Answer: Operation/Procedure 03/02/25 1705 02/19/25 1215 Dietary nutrition supplements Breakfast; Boost Glucose Control; Chocolate; 8 oz; OralUntil discontinued Question Answer Comment Deliver with Breakfast Select supplement: Boost Glucose Control Flavor: Chocolate Strength: 8 oz Route Oral 02/19/25 1214 Nutrition Risk: Low Nutrition Needs: Needs based on: ideal body weight (70 kg) Calorie needs: 9822-4380 kcals/day based on 25-30 kcal/kg Protein needs: 70-84 g/day based on 1.0-1.2 g/kg Fluid needs: 1750 ml/day based on 25 ml/kg Nutrition Diagnosis: Inadequate oral intake -resolved Malnutrition Assessment: Per Registered Dietitian assessment and evaluation, patient does not currently meet criteria OR there is not enough information to support the diagnosis of malnutrition per the clinical criteria set by the Academy of Nutrition and Dietetics (AND) and the [place] [employer] of Enteral and Parenteral Nutrition (ASPEN). Nutrition Education: HF education provided 02/19: denied questions @ this time Treatment Plan: Diet: resume regular diet, thin liquids when medically feasible No indication for dysphagia 3 diet, unclear why pt was on this Cardiac restriction FR per MD discretion ONS: continue with BGC x1/day Consider home vitamin regimen for history of gastric bypass Daily wt monitoring Correct/replace electrolytes prn Goals: Adequate po intakes (kcals and protein); >75% meals Adherence/tolerance to ONS; >75% supplements Understanding of nutrition education/adherence to diet recommendations No significant unintentional wt loss Nutrition-related labs (magnesium, phosphorus, BMP) wnl To reach the Clinical Dietitian, please utilize [employer] [employer] [facility] chat Saturday-Saturday from 8AM-4PM or call extension [phone]. For weekends (Saturday-Saturday) and holidays, the Clinical Dietitian can be reached via pager [phone]) from 9AM-3PM. The Clinical Nutrition Department is unable to respond to [facility] [facility] chat messages on Sundays and hols. [1] Past Medical History: Diagnosis Date Hypertension Obesity ENA (obstructive sleep apnea) [2] No Known Allergies * MARJORIE Landry - 03/03/2025 9:15 AM EDT Occupational Therapy Name: Lindsay Pinto Date of : 1965 Today's Date: 03/03/25 Pt is unable to be seen for therapy at this time secondary to patient off floor at this time. Will check back and complete therapy session as appropriate. Check No Charge Time attempted: Cosigned by Caity Delaney OT at 03/04/2025 11:55 AM EDT * Arminda Solitario MD - 03/02/2025 4:58 PM EDT Images from the original note were not included. . Cardiology Progress Note Subjective Patient sitting up in chair. Says he feels well. Denies CP, SOB, palpitations. HR is better controlled. He received a dose of digoxin yesterday and started on BB. HB stable HPI: Lindsay Pinto is a 59 y.o. male with a PMHx of hypertension, severe LVH, ENA, obesity s/p gastric bypass presents as a direct mission for [facility] with progressively worsening dyspnea, abdominal swelling and anasarca in the setting of new onset A-fib as well as new onset systolic CHF. He had a CXR completed showing cardiomegaly with vascular congestion. CT of the abdomen was completed showing ascites and anasarca. Labs show a mild GILLIAN and an elevated BNP over 5000. EKG was completed showing A-fib with RVR which is new for the patient. He was given 2 doses of digoxin due to borderline hypotension and given a dose of Xarelto. Echocardiogram was completed showing a newly dropped EF of 15 to 20% with moderate pulmonary hypertension, moderate mitral valve regurgitation and a small pericardial effusion. He was transferred [facility] for higher level of care. At [facility], he was started on Lasix 40 mg IV BID and he has made nearly net negative 3L of urine. Vitally, he is afebrile, tachycardic in the 100s, BP 100/63, satting well on RA. Cardiac history: Severe LVH per 2019 Echo that showed LV dysfunction, EF 40% and Echo 05/14/23 showed improvement in EF 50-55%, aortic dilation, mitral valve regurg Cardiac workup: ECHO 05/14/2023: Global LV systolic function is low normal limits; visually estimated EF 50-55%. RVis normal in size and function. Normal diastolic function. Biatrial enlargement. Mild mitral regurg. Aortic root is mildly dilated. Trivial pericardial effusion is seen Objective Current Medications[1] Objective: Patient Vitals for the past 24 hrs: BP Temp Temp src Pulse Resp SpO2 Weight 03/02/25 1612 99/69 36.1 ??C (97 ??F) Temporal 87 22 100 % -- 03/02/25 1131 111/69 36.1 ??C (96.9 ??F) Temporal 98 20 97 % -- 03/02/25 0759 105/73 -- -- 98 -- -- -- 03/02/25 0757 105/73 36 ??C (96.8 ??F) Temporal 96 23 100 % -- 03/02/25 0609 -- -- -- -- -- -- 112 kg (247 lb 5.7 oz) 03/02/25 0400 105/73 36.2 ??C (97.2 ??F) Temporal 82 22 96 % -- 03/02/25 0021 114/70 36.4 ??C (97.5 ??F) Temporal 89 24 100 % -- 03/01/25 2015 108/86 36.2 ??C (97.2 ??F) Temporal 98 12 100 % -- Physical Examination: Physical Exam Constitutional: Appearance: Normal appearance. Cardiovascular: Rate and Rhythm: Tachycardia present. Rhythm irregular. Pulses: Normal pulses. Heart sounds: Normal heart sounds. Pulmonary: Effort: Pulmonary effort is normal. No respiratory distress. Breath sounds: Normal breath sounds. Abdominal: General: Bowel sounds are normal. There is no distension. Palpations: Abdomen is soft. Neurological: General: No focal deficit present. Mental Status: He is oriented to person, place, and time. Relevant Lab Results Lab Results Component Value Date WBC 8.84 02/28/2025 HGB 8.3 (L) 02/28/2025 HCT 24.3 (L) 02/28/2025 MCV 90.0 02/28/2025 PLT 366 03/02/2025 Lab Results Component Value Date GLUCOSE 91 03/02/2025 CALCIUM 8.1 (L) 03/02/2025 NA 131 (L) 03/02/2025 K 4.0 03/02/2025 CO2 25 03/02/2025 CL 103 03/02/2025 BUN 13 03/02/2025 CREATININE 0.68 (L) 03/02/2025 Encounter Date: 02/18/25 ECG 12 lead Result Value Ventricular Rate 148 Atrial Rate 148 KS Interval 136 QRS DURATION 166 QT Interval 306 QTC CALCULATION(BAZETT) 480 P Moselle 4 R-Moselle -50 T Wave Moselle 159 Impression Sinus tachycardia Left axis deviation Non-specific intra-ventricular conduction block Abnormal ECG When compared with ECG of 22-FEB-2025 07:05, Sinus rhythm has replaced Atrial fibrillation Confirmed by Prabhu Chavez ([id number]) on 02/24/2025 3:58:26 AM No results found for: CKTOTAL , CKMB , CKMBINDEX , TROPONINI Limited Echo (TTE) w/wo Limited Doppler, Color Flow, Imaging Agent, Strain, 3D, Bubble Study Result Date: 03/02/2025 1 1 [facility] Heart [facility] [address] [place] [address] [phone] (fax) Echocardiogram-[facility] Name: LINDSAY PINTO Study Date: 03/02/2025 12:02 PM B/P: 111 mmHg/69 mmHg HR: 84 bpm Date of : 1965 Location: [facility] Height: 68 in. Age: 59 year(s) Patient Room: 3174 Weight: 247 lb. Gender: Male Patient Status: InPt BSA: 2.24 m2 Indication: Congestive Heart Failure, Atrial Fibrillation Examination: Limited Echo/Limited Doppler, Color flow imaging, Lumason Contrast Image Quality: Fair Patient Consent: Procedureexplained to patient Exam Details Contrast: I.V. dose of Lumason Conclusions Left Ventricle: The left ventricle is moderately enlarged. Global left ventricular systolic function is severely reduced. The calculated Biplane EF is 24 %. The EF is 15 % visually. Left ventricular wall thickness is at upper normal limits. Diffuse global hypokinesis. Unable to assess diastolic dysfunction. The changes are consistent with eccentric hypertrophy. Right Ventricle: The right ventricle is at upper normal limits in size. Right ventricular systolic function appears reduced. Doppler studies suggest normal right sided pressures. Left Atrium: The left atrium is severely enlarged. Overall Conclusions: Due to suboptimal imaging Lumason contrast was administered for opacification and better delineation of endocardial borders. Rhythm is atrial fibrillation. Measurements Left Ventricle Label Value Normal Value LVOT VTI 11.3 cm (18cm - 22cm) LVOT PGmax 2 mmHg LVEF visual 15 % LVDd, 2D 6.5 cm (4.2cm - 5.9cm) LVDs, 2D 6.24 cm (2.1cm - 4cm) IVSd, 2D 1 cm (0.6cm - 1.1cm) LVPWd, 2D 0.95 cm (0.6cm - 1cm) LVEF, BP 24 % (55% - 65%) LV Mass, 2D ASE 274.1 g LV Mass Index, 2D ASE 122.4 g/m?? (50g/m?? - 102.4g/m??) RWT, MM 0.29 (0 - 0.42) LVSVI, 2D 19.6 ml/m2 LVOT PGmean 1 mmHg Right Ventricle Label Value Normal Value RVDd, 2D 4.27 cm (1.9cm - 3.8cm) Left Atrium Label Value Normal Value LA Volume, BP 142 ml (18ml - 58ml) LAESV index, BP 63.4 ml/m?? Right Atrium Label Value Normal Value RA Area 21.1 cm?? Tricuspid Valve Label Value Normal Value RA Pressure 3 mmHg RVSP 24 mmHg TR Vmax 2.31 m/s Aorta Label Value Normal Value AoRoot, 2D 3.7 cm (1.4cm - 3.8cm) Valvular Assessment LVOT 0.7 - 1.1 m/sec Aortic Valve 1.0 - 1.7 m/sec Mitral Valve 0.6 - 1.3 m/sec Tricuspid Valve 0.3 - 0.7 m/sec Pulmonic Valve 0.6 -0.9 m/sec Regurgitation No trivMil Trivial No Stenosis No No No No Max Velocity 0.70 m/sec FindingsLeft Ventricle: The left ventricle is moderately enlarged. Global left ventricular systolic function is severely reduced. The calculated Biplane EF is 24 %. The EF is 15 % visually. Left ventricular wall thickness is at upper normal limits. Diffuse global hypokinesis. Unable to assess diastolic dysf unction. The changes are consistent with eccentric hypertrophy. Right Ventricle: The right ventricle is at upper normal limits in size. Right ventricular systolic function appears reduced. Doppler studies suggest normal right sided pressures. Left Atrium: The left atrium is severely enlarged. RightAtrium: The right atrium is severely enlarged. Mitral Valve: There is nonspecific thickening of themitral valve leaflet. Trvial to mild mitral regurgitation. No mitral valve stenosis. Aortic Valve: The aortic valve is normal. No aortic valve regurgitation. No aortic valve stenosis. Tricuspid Valve: Normal tricuspid valve. Trivial tricuspid regurgitation. No tricuspid valve stenosis. Pulmonic Valve: Normal pulmonary valve. No pulmonary regurgitation. No pulmonic valve stenosis. Aorta: The aortic root exhibits dilatation. Great Vessels: IVC: The IVC is not visualized. Pericardium: There is a minimal pericardial effusion. Procedure Staff Reading Group: [facility] Referring Physician: JALEN LINDER Mission Planner: ZUHAIR Caban, RDCS Ordering Physician: RUTH KRAMER No nuclear medicine results found for the past 12 months Relevant Imaging Results Limited Echo (TTE) w/wo Limited Doppler, Color Flow, Imaging Agent, Strain, 3D, Bubble Study 1 1 [facility] Heart [facility] [address] [place] [address] [phone] (fax) Echocardiogram-[facility] Name: LINDSAY PINTO Study Date: 03/02/2025 12:02 PM B/P: 111 mmHg/69 mmHg HR: 84 bpm Date of : 1965 Location: [facility] Height: 68 in. Age: 59 year(s) Patient Room: 3174 Weight: 247 lb. Gender: Male Patient Status: InPt BSA: 2.24 m2 Indication: Congestive Heart Failure, Atrial Fibrillation Examination: Limited Echo/Limited Doppler, Color flow imaging, Lumason Contrast Image Quality: Fair Patient Consent: Procedure explained to patient Exam Details Contrast: I.V. dose of Lumason Conclusions Left Ventricle: The left ventricle is moderately enlarged. Global left ventricular systolic function is severely reduced. The calculated Biplane EF is 24 %. The EF is 15 % visually. Left ventricular wall thickness is at upper normal limits. Diffuse global hypokinesis. Unable to assess diastolic dysfunction. The changes are consistent with eccentric hypertrophy. Right Ventricle: The right ventricle is at upper normal limits in size. Right ventricular systolic function appears reduced. Doppler studies suggest normal right sided pressures. Left Atrium: The left atrium is severely enlarged. Overall Conclusions: Due to suboptimal imaging Lumason contrast was administered for opacification and better delineation of endocardial borders. Rhythm is atrial fibrillation. Measurements Left Ventricle Label Value Normal Value LVOT VTI 11.3 cm (18cm - 22cm) LVOT PGmax 2 mmHg LVEF visual 15 % LVDd, 2D 6.5 cm (4.2cm - 5.9cm) LVDs, 2D 6.24 cm (2.1cm - 4cm) IVSd, 2D 1 cm (0.6cm - 1.1cm) LVPWd, 2D 0.95 cm (0.6cm - 1cm) LVEF, BP 24 % (55% - 65%) LV Mass, 2D ASE 274.1 g LV Mass Index, 2D ASE 122.4 g/m?? (50g/m?? - 102.4g/m??) RWT, MM 0.29 (0 - 0.42) LVSVI, 2D 19.6 ml/m2 LVOT PGmean 1 mmHg Right Ventricle Label Value Normal Value RVDd, 2D 4.27 cm (1.9cm - 3.8cm) Left Atrium Label Value Normal Value LA Volume, BP 142 ml (18ml - 58ml) LAESV index, BP 63.4 ml/m?? Right Atrium Label Value Normal Value RA Area 21.1 cm?? Tricuspid Valve Label Value Normal Value RA Pressure 3 mmHg RVSP 24 mmHg TR Vmax 2.31 m/s Aorta Label Value Normal Value AoRoot, 2D 3.7 cm (1.4cm - 3.8cm) Valvular Assessment LVOT 0.7 - 1.1 m/sec Aortic Valve 1.0 - 1.7 m/sec Mitral Valve 0.6 - 1.3 m/sec Tricuspid Valve 0.3 - 0.7 m/sec Pulmonic Valve 0.6 - 0.9 m/sec Regurgitation No trivMil Trivial No Stenosis No No No No Max Velocity 0.70 m/sec Findings Left Ventricle: The left ventricle is moderately enlarged. Global left ventricular systolic function is severely reduced. The calculated Biplane EF is 24 %. The EF is 15 % visually. Left ventricular wall thickness is at upper normal limits. Diffuse global hypokinesis. Unable to assess diastolic dysfunction. The changes are consistent with eccentric hypertrophy. Right Ventricle: The right ventricle is at upper normal limits in size. Right ventricular systolic function appears reduced. Doppler studies suggest normal right sided pressures. Left Atrium: The left atrium is severely enlarged. Right Atrium: The right atrium is severely enlarged. Mitral Valve: There is nonspecific thickening of the mitral valve leaflet. Trvial to mild mitral regurgitation. No mitral valve stenosis. Aortic Valve: The aortic valve is normal. No aortic valve regurgitation. No aortic valve stenosis. Tricuspid Valve: Normal tricuspid valve. Trivial tricuspid regurgitation. No tricuspid valve stenosis. Pulmonic Valve: Normal pulmonary valve. No pulmonary regurgitation. No pulmonic valve stenosis. Aorta: The aortic root exhibits dilatation. Great Vessels: IVC: The IVC is not visualized. Pericardium: There is a minimal pericardial effusion. Procedure Staff Reading Group: [facility] Referring Physician: JALEN LINDER Mission Planner: ZUHAIR Caban, RDCS Ordering Physician: RUTH KRAMER SSMENT Acute HFrEF EF 10 to 15% probably tachycardia mediated with history of heart failure with improved ejection fraction. Clinically stable New onset persistent A-fib with RVR [id number] 2 Worsening GILLIAN Acute blood loss anemia due to rectal sheath hematoma after starting AC, S/P transfusion, HB stable Small pericardial effusion on Echo Mild aortic dilatation Primary hypertension ENA S/p gastric bypass Obesity PLAN Vascular was okay with restarting anticoagualation, so we will start heparin trial to see if he cantolerate ac If there is no concern for drop in Hb of bleeding, we will proceed with BERNARDINO cardioversion tomorrow Dig level tomorrow Change Lopressor to 50 mg BID Consider EP consult tomorrow He will need cardiac cath in the future if HG remains stable on AC Cardiology will continue to follow patient. This note was, at least in part, completed using a voice bottle inspector system. Every effort was made to ensure accuracy. However, inadvertent computerized bottle inspector errors may be present. Arminda Solitario MD PGY-5 Radio Repair Teacher [facility] Pager: [phone] [1] Current Facility-Administered Medications: acetaminophen (Tylenol) tablet 650 mg, 650 mg, oral, q6h PRN, Carol Carter CNP, 650 mg at 244 bisacodyl (Dulcolax) EC tablet 5 mg, 5 mg, oral, Daily, Norm North MD, 5 mg at 03/02/25 0843 [Held by provider] digoxin (Lanoxin) tablet 250 mcg, 250 mcg, oral, Daily, Susan Mcpherson MD, 250 mcgat 02/21/25 0844 diphenhydrAMINE (BENADryl) capsule 25 mg, 25 mg, oral, q8h PRN, Jordan Pitts MD, 25 mg at 02/25/25 0149 ferrous sulfate tablet 325 mg, 325 mg, oral, Daily with breakfast, Marizol Brizuela DO, 325 mg at 03/02/25 0759 [Held by provider] furosemide (Lasix) tablet 40 mg, 40 mg, oral, q12h, Gabriele Yoder MD, 40 mg at 02/21/25 2255 heparin infusion 100 units/mL in D5W, 0-28 Units/kg/hr, intravenous, Continuous, Carol Bermudez MD, Last Rate: 16.8 mL/hr at 03/02/25 1506, 15 Units/kg/hr at 03/02/25 1506 HYDROcodone-acetaminophen (Montrose) 5-325 mg per tablet 1 tablet, 1 tablet, oral, q6h PRN, Suleiman Corcoran MD, 1 tablet at 02/21/25 2240 HYDROmorphone (Dilaudid) injection 0.2 mg, 0.2 mg, intravenous, q4h PRN, Norm North MD, 0.2 mg at 02/22/25 1909 melatonin tablet 5 mg, 5 mg, oral, Nightly PRN, Carol Carter CNP metoprolol tartrate (Lopressor) injection 5 mg, 5 mg, intravenous, Once, Gabriele Yoder MD metoprolol tartrate (Lopressor) tablet 75 mg, 75 mg, oral, BID, Arminda Solitario MD sennosides-docusate sodium (Gertrude-Colace) 8.6-50 mg per tablet 1 tablet, 1 tablet, oral, Nightly, Carol Bermudez MD Insert peripheral IV, , , Once AND Saline lock IV, , , Once AND sodium chloride flush 10 mL, 10 mL, intravenous, q8h PRN, Carol Carter, HARINI sodium chloride irrigation solution 0.9 % 3,000 mL, 3,000 mL, irrigation, Continuous, Lo Vasquez MD, 3,000 mL at 02/23/25 181 [Held by provider] spironolactone (Aldactone) tablet 25 mg, 25 mg, oral, Daily, Susan Mcpherson MD, 25mg at 02/21/25 0843 tamsulosin (Flomax) 24 hr capsule 0.4 mg, 0.4 mg, oral, Daily, Norman Tovar MD, 0.4 mg at 843 [Held by provider] valsartan (Diovan) tablet 80 mg, 80 mg, oral, Daily, Gabriele Yoder MD, 80 mg at 02/21/25 0844 Cosigned by Jose Meneses MD at 03/03/2025 12:11 AM EDT Associated attestation - Jose Meneses MD - 03/03/2025 12:11 AM EDT By using the attestations below, the signing clinician agrees that I have read and verify that thedocumentation has been personally reviewed by me and ensure that the documentation accurately reflects the encounter. GC: I personally saw this patient on the day of the encounter, performed the [place]umfield portion(s) of the service and participated in the management and confirm the resident's/ fellow's Dr Solitario's documentation. Please note there may be an additional personal documentation from me. Jose Meneses MD, [facility] * Radha Garcia, GEMMA - 03/02/2025 12:20 PM EDT Physical Therapy Physical Therapy Treatment Patient Name: Lindsay Pinto : 1965 Today's Date: 03/02/2025 Problem List[1] Time : 10:03-10:45 03/02/25 1149 PT Last Visit PT Received On 03/02/25 General Subjective Pt has been medically cleared by nursing staff to receive therapy services . Pt was sitting in bedside chair agreeable to work with therapy. Upon entering the room pt was sitting in bedside chair , adjusto writer operator introduced herself and told pt she was aware that he was concerned about making sure he could do steps before going home , this was a problem from a past hospitilazation . Medical Voucher Clerk toldpt that she would be working on ther exercise with functional activities with incorporating standing balance strategies see details of treatment session below : Activity Tolerance Endurance Stage III Precautions Medical Precautions telemetry (portable telemetry was retrieved by adjusto writer operator so pt's heart rate and rhythm can be monitored when pt is walking hallways .) Pain Assessment Pain Assessment No/denies pain Cognition Orientation Level Oriented X4 Therapeutic Exercise Therapeutic Exercise Activity 1 AROM for bilat LE's Sitting with blue theraband pt had to do marching up to 4 step height and 6 step height with L and R LE 10 reps 1 set for each step height. Pt also had to do hip abduction with blue theraband stepping sideways up to 4 and 6 step depth 10 reps 1 set to prepare pt for 7 1/2 step depth he has to deal with at home . Balance/Neuromuscular Re-Education Balance/Neuromuscular Re-Education Activity 1 Pt had to do tandem standing and holding onto a ball in each hand and doing forward reaches out to side reaches and bilat ue's at sides while holding onto these balls pt had 1x LOB 15% tactile cues for dynamic standing balance when pt performing this activity . Balance/Neuromuscular Re-Education Activity 2 Semitandem standing no UE support pt holding onto balls with L UE and R UE no LOB 5 reps 1 set for each LE doing the semi tandem stand. Static Standing Balance Static Standing-Balance Support No upper extremity supported Static Standing-Level of Assistance Close supervision Static Standing-Comment/Number of Minutes no LOB Dynamic Standing Balance Dynamic Standing-Balance Support No upper extremity supported Dynamic Standing-Balance (while walking 80 ft x 1) Dynamic Standing Balance-Level of Assistance Close supervision Dynamic Standing-Comments no LOB Ambulation Ambulation Yes Ambulation 1 Surface 1 Level tile Device 1 No device Assistance 1 Close supervision Comments/Distance (ft) 1 80 ft x 1 Stairs Stairs Yes Stairs Rails 1 Right (simulation done with pt holding onto countertop with R UE to simulate stair rail at home) Device 1 No device Assistance 1 Close supervision Quality of Stairs 1 step height 6 Comment/Number of Steps 1 13 steps (pt has met Step negotiation goal) Bed Mobility Bed Mobility Yes Bed Mobility 1 Bed Mobility From 1 Supine Bed Mobility Type 1 To Bed Mobility to 1 Short sit (HOB flat to simulate bed at home) Level of Assistance 1 Independent Bed Mobility Comments 1 Pt has met bed mobility goal Transfers Transfer Yes Transfer 1 Transfer From 1 Sit;Chair with arms Transfer Type 1 To and from Transfer to 1 Stand Technique 1 Sit to stand;Stand to sit Transfer Device 1 none Transfer Level of Assistance 1 Independent Trials/Comments 1 pt has met tranfer goal Transfers 2 Transfer From 2 Chair with arms Transfer Type 2 To and from Transfer to 2 Bed Technique 2 Lateral (sidestepping and stepping backwards) Transfer Device 2 none Transfer Level of Assistance 2 Independent Trials/Comments 2 pt has met transfer goal Other Activity Other Activity 2 pt at end of treatment session is back in bedside chair with call light in place . PT Assessment PT Assessment/SUPERVISOR PHOSPHATIC FERTILIZER Summary pt tolerated a 42 minute treatment session and has met several goals on POC such as bed mobility and transfers and LTG For ambulation and all STGS for transfers and bed mobility hve been met . Plan Treatment/Interventions Functional transfer training;Balance training;LE strengthening/ROM;Bed mobility;Gait training PT Discharge Recommendations Patient is able to return to prior living environment Home PT Goals: Multi-Disciplinary Problems (from Physical Therapy) Active Problems Problem: Balance Start Date: 02/25/25 Goal Start Date Expected End Date End Date LTG - Patient will maintain standing and sitting balance to allow for completion of daily activities 02/25/25 03/11/25 -- Problem: Mobility Start Date: 02/25/25 Goal Start Date Expected End Date End Date LTG - Patient will ambulate at least 50 feet as medically appropriate with stand-by/contact guard using least restrictive assistive device 02/25/25 03/11/25 -- Goal Start Date Expected End Date End Date LTG - As pt's medical stability improves, he will navigate at least 8 steps with stand-by/contact guard using device as appropriate 02/25/25 03/11/25 -- Problem: Transfers Start Date: 02/25/25 Goal Start Date Expected End Date End Date STG - Transfer from bed to chair with SBA using least restrictive assistive device 02/25/25 03/11/25 -- Goal Start Date Expected End Date End Date STG - Patient to transfer to and from sit to supine with no assistance from flat HOB 02/25/25 03/11/25 -- Goal Start Date Expected End Date End Date STG - Patient will transfer sit to and from stand with SBA using least restrictive assistive gksfer76/28/25 03/11/25 -- Problem: PT Misc Start Date: 02/25/25 Goal Start Date Expected End Date End Date LTG - Pt will tolerate 30+ minute session with minimal rest breaks and vitals remaining in normal limits for improvements in endurance. 02/25/25 03/11/25 -- 03/02/25 1221 6 Clicks (Mobility) Help from another person turning from your back to your side while in a flat bed without using bedrails 4 Help from another person moving from lying on your back to sitting on the side of a flat bed without using bedrails 4 Help from another person moving to and from a bed to a chair (including a wheelchair) 4 Help from another person standing up from a chair using your arms (e.g. wheelchair or bedside chair) 4 Help from another person to walk in hospital room 3 Help from another person climbing 3-5 steps with a railing 3 Mobility 6 Clicks T-Score 22 [1] Patient Active Problem List Diagnosis Gout Primary hypertension Obesity ENA (obstructive sleep apnea) Ascending aorta dilatation Acute systolic CHF (congestive heart failure) (CMS/HCC) New onset a-fib (CMS/HCC) S/P gastric bypass Pericardial effusion Moderate mitral valve regurgitation Atrial fibrillation with RVR (CMS/HCC) A-fib (CMS/HCC) Hematoma Cosigned by Canelo Mendieta PT at 03/02/2025 3:44 PM EDT * Carol Bermudez MD - 03/02/2025 12:16 PM EDT Images from the original note were not included. Pulmonology Progress Note Patient - Lindsay Pinto Age - 59 y[facility] 1965 [id number] Date of Admission - 02/18/2025 5:46 PM Subjective Patient was seen and examined at bedside today morning. No unexpected acute events reported overnight. He is saturating well on room air. Denies SOB, chest pain, palpitation, cough. Denies no new or concerning symptoms. Still in Afib. Vascular surgery ok with starting anticoagulation CXR 02/22/2025: IMPRESSION: *Left central venous catheter tip projects over the mid SVC. No postprocedural pneumothorax. *Retrocardiac atelectasis and/or pneumonia noted. HPI/ Interval History Lindsay Pinto is an 59 y.o. male who came from home with past medical history of hypertension, severe LVH, ENA, obesity s/p gastric bypass presents as a direct mission for [facility] with newonset A-fib as well as new onset systolic CHF. Patient initially presenting to [place] with bloating and constipation. He states that for the past few weeks he has been having abdominal swelling, bloating. He states associated shortness of breath with exertion. He denies chest pain, nausea, vomiting. He does state mild fatigue. He had a CXR completed showing cardiomegaly with vascular congestion. CT of the abdomen was completed showing ascites and anasarca. Labs show a mild GILLINA and an elevatedBNP over 5000. EKG was completed showing A-fib with RVR which is new for the patient. He was given 2 doses of digoxin due to borderline hypotension and given a dose of Xarelto. Echocardiogram was completed showing a newly dropped EF of 15 to 20% with moderate pulmonary hypertension, moderate mitralvalve regurgitation and a small pericardial effusion. He was transferred [facility] for higher level of care. Patient does follow with cardiology outpatient for LVH. Per cardiology note, the echocardiogram performed on 05/14/2023 showed LVH with an improvement in EF to 50-55%. His latest echocardiogram did show a significant drop in EF. Cardiology is onboard inpatient for his new-onset atrial fibrillation with RVR. Patient was intially treated with a Cardizem drip; however, it was discontinue due to hypot ension. He has been treated with Toprol XL 100 mg BID and digoxin 250 mcg daily. He is scheduled for BERNARDINO and cardioversion today. CT abdomen and pelvis was performed yesterday for ongoing lower abdominal pain. It did reveal The right and left rectus abdominal muscles are abnormal and contain hematomas. The left is larger in size. Hemoglobin did drop from 15.4 to 14.0, but most recent hemoglobin this morning is 14.5 with a hematocrit of 42.9. MICU was consulted after a rapid response was called around 7 AM for hypotension with a BP of 53/38. He was seen and examined at bedside this morning. Blood pressure is now stable with the most recentpressure of 110/72. The patient is speaking in full sentences. He denies any CP or SOB. He also denies lightheadedness, dizziness, or nausea. He endorses continued abdominal pain that has been present for the past two days. He states that is started after he took a shower and felt tired, so he jumped on his bed. He then felt a sudden pain. He does endorse constipation. Last bowel movement was twodays ago. Patient had another episode of hypotension this morning with a recorded blood pressure of 52/34. Hewas given albumin and 250 cc lactated ringer and transferred to the MICU for hemodynamic instability. OBJECTIVE Vitals height is 1.727 m (5' 7.99 ) and weight is 112 kg (247 lb 5.7 oz). His temporal temperature is 36.1??C (96.9 ??F). His blood pressure is 111/69 and his pulse is 98. His respiration is 20 and oxygen saturation is 97%. Temp: [36 ??C (96.8 ??F)-36.4 ??C (97.5 ??F)] 36.1 ??C (96.9 ??F) Heart Rate: [82-119] 98 Resp: [12-24] 20 BP: (105-114)/(63-86) 111/69 Physical Exam: General: Patient in no acute distress, resting in chair this morning in hospital room, appears comfortable HEENT: Normocephalic, EOMI Neck: Supple Cardiovascular: Mild Tachycardia in low 100s this morning,, A-fib Rhythm, S1 and S2 present Respiratory: In No acute respiratory distress, no wheezing, no rhonchi, unlabored breathing on roomair, saturating above 95 percent this morning. Abdomen: Soft, nontender, nondistended, no guarding or rebound Extremities: No edema, No tenderness Neuro: No focal deficits observed, patient moves all limbs against gravity Skin: Warm, Mild Jaundice noted Weight: Admission weight: 118 kg (259 lb 12.8 oz) Wt Readings from Last 1 Encounters: 03/02/25 112 kg (247 lb 5.7 oz) Input/Output: Intake/Output Summary (Last 24 hours) at 03/02/2025 1216 Last data filed at 03/02/2025 1100 Gross per 24 hour Intake 1600 ml Output 3152 ml Net -1552 ml Lab Results CBC: Results from last 7 days Lab Units 02/28/25 0342 02/27/25 2338 02/27/25 1849 WBC AUTO 10*3/uL 8.84 9.07 10.96* HEMOGLOBIN g/dL 8.3* 8.9* 9.6* HEMATOCRIT % 24.3* 25.1* 27.4* PLATELETS AUTO 10*3/uL 255 261 284 Coagulation: Metabolic Panel: Results from last 7 days Lab Units 03/02/25 0426 03/01/25 0512 02/28/25 0342 SODIUM mmol/L 131* 130* 131* POTASSIUM mmol/L 4.0 3.9 4.0 CHLORIDE mmol/L 103 103 102 CO2 mmol/L 25 22 23 BUN mg/dL 13 14 16 CREATININE mg/dL 0.68* 0.67* 0.75 GLUCOSE mg/dL 91 94 98 CALCIUM mg/dL 8.1* 7.7* 7.9* PHOSPHORUS mg/dL 2.5 2.4* 2.0* MAGNESIUM mg/dL 2.0 2.0 2.0 Liver Panel: Results from last 7 days Lab Units 03/02/25 0426 03/01/25 0512 02/28/25 0342 ALBUMIN g/dL 3.0* 2.9* 3.0* BILIRUBIN TOTAL mg/dL 4.3* 3.6* 3.8* ALT U/L 20 17 20 AST U/L 21 17 14 ALK PHOS U/L 59 58 60 Anemia Labs: Results from last 7 days Lab Units 02/26/25 0513 VITAMIN B 12 pg/mL 1,129* FOLATE ng/mL 17.66 FERRITIN ng/mL 234.0 IRON ug/dL 20* TIBC ug/dL 227* IRON SATURATION % 9* Lipid Panel: No lab exists for component: CHOLHDL Urine Labs: Lab Results Component Value Date WBCU 21-50 (A) 02/24/2025 UROBILINOGEN Normal 02/24/2025 Additional Labs: No lab exists for component: LACTICACID , PROCALCITON Radiology CTA Abdomen Pelvis W IV Contrast Narrative: CTA ABDOMEN/PELVIS HISTORY: Hematoma COMPARISON: 02/22/2025 TECHNIQUE: Multidetector CT angiogram through the abdomen and pelvis performed following the uncomplicated intravenous administration of 100 mL Omnipaque 350. 3-D maximum intensity projection reconstructions constructed under concurrent physician supervision on a independent workstation. 3-D images obtained to improve visualization of vascular detail. FINDINGS: Small left pleural effusion with adjacent atelectasis. Small pericardial effusion. Airspace opacities in the right lower lobe. Cholelithiasis. The liver, spleen, adrenal glands, pancreas, and kidneys are unremarkable. No enlarged abdominal or pelvic lymph nodes. Bladder decompressed by Tello catheter. Bilateral inferior rectus sheath hematomas (left larger than right) remain. Left-sided hematoma measures 9.0 x 5.7 cm (8.3 x 5.8 cm previously). A large hematoma just posterior to the rectus sheath hematomas in the extraperitoneal space of the pelvis measures 14.5 x 7.2 cm (previously 16.8 x 10.8 cm). There is hemorrhage extending into bilateral retroperitoneal regions (left greater than right), with the amount of this hemorrhage increased since previous study particularly on the left where largest component of hematoma measures 8.3 x 4.6 cm (series 4, image 108). Normal appendix. The small and large bowel are of normal caliber with no evidence of bowel wall thickening. Soft tissue edema in the lower abdomen. Postsurgical changes from previous partial bowel resections. No bowel dilatation. Intra-abdominal vascular structures enhance normally. 3D reformatted images confirm the source data findings. Impression: * Extensive hemorrhage/hematomas involving the inferior rectus sheath (left greater than right), extraperitoneal space of the pelvis, and retroperitoneum. The overall amount of hemorrhage has not significantly changed, though there has been some redistribution of hemorrhage with increase in amount within the lower retroperitoneal spaces (left greater than right) though slightly smaller amount of hemorrhage in the extraperitoneal space of the pelvis. * Unable to accurately comment on presence or absence of active arterial bleeding on this study due to lack of true arterial phase imaging. * Right lower lobe airspace opacities may represent pneumonia, aspiration possible. * Small left pleural effusion and small pericardial effusion. All CT scans at this facility use dose modulation, iterative reconstruction, and/or weight based dosing when appropriate to reduce radiation dose to as low as reasonably achievable. Electronically signed: Daniel Diaz MD. Cultures Lab Results Component Value Date BLOOD CULTURE No growth at 5 days 02/23/2025 Medications Scheduled: bisacodyl, 5 mg, oral, Daily [Held by provider] digoxin, 250 mcg, oral, Daily ferrous sulfate, 325 mg, oral, Daily with breakfast [Held by provider] furosemide, 40 mg, oral, q12h metoprolol tartrate, 5 mg, intravenous, Once metoprolol tartrate, 75 mg, oral, BID sodium chloride irrigation solution, 3,000 mL, irrigation, Continuous [Held by provider] spironolactone, 25 mg, oral, Daily tamsulosin, 0.4 mg, oral, Daily [Held by provider] valsartan, 80 mg, oral, Daily Infusions: As Needed: PRN medications: acetaminophen, diphenhydrAMINE, HYDROcodone-acetaminophen, HYDROmorphone, melatonin, sennosides-docusate sodium, Insert peripheral IV AND Saline lock IV AND sodium chloride Assessment and Plan #Cardiologic and Hypovolemic Shock, likely secondary to New onset A-fib and Acute Blood Loss Anemiafrom Rectus Shealth Hematoma - improving -Levophed was discontinued 02/26 #Bilateral inferior rectus sheath hematoma, likely contributing to above #Right Pelvic Hematoma, likely contributing to above -Measurements were reported 15.1 x 7.9 cm on the left and 5.8 x 2.7 cm on the right -Repeat CTA abdomen measured the left side hematoma as 9.0 x 5.7 cm and a hematoma posterior to therectus sheath in the extraperitoneal space measuring 14.5 x 7.2 cm -Vascular ok with re-starting anticoagulation as hemoglobin been stable, resumed heparin gtt on 03/02(monitor hemoglobin or any sign of bleeding, switch to oral tomorrow) -Vascular Surgery was consulted, hemoglobin stable, No need for surgical intervention at this time,signed off, patient to follow-up in the office on discharge #New onset Afib with RVR and LBBB #Acute decompensated systolic heart failure -Ejection Fraction of 15% reported on recent Echo from outside hospital -[id number] score of 2 given patients history of HTN and CHF -Holding anticoagulationi at this time given concerns for active bleeding -Cardiology reported patient is poor candidate for BERNARDINO/Cardioversion due to active bleeding at thistime -Will need final recommendations on medications -Started low dose lopressor, to start optimizing GDMT -No need for life-vest on discharge, per cardiology given non-ischemic decompensation of HFrEF -Cardiology was reported planning for ischemic work-up once rhythm is normalized -Follow-up with Cardiology, recommendations appreciated regarding transition to oral regimen for amiodarone, potential ischemic work-up #GILLIAN previously, likely prerenal secondary to atrial fibrillation and hypovolemia - GILLIAN resolved #Gross hematuria previously - Resolved -Creatinine continues to be normal today, value of 0.67 -Patient denies any hematuria the past day. -Nephrology had assisted in patients care previously, work-up performed, renal ultrasound minimal prominence of the right renal pelvis without calyceal dilatation, Nephrology signed off -Urology consulted previously, patient's Urinary Tello was upsized to 22 [place] three-way and patient was started on CBI with immediate pink to clear return, CBI was clamped (02/24) #Leukocytosis - Resolved -WBC normal today and yesterday -2/2 Blood cultures on 02/22 and 2/2 Blood cultures 02/23 No growth to date as of this morning -Patient Afebrile today and prior days #Jaundice with hyperbilirubinemia -Total bilirubin value of 3.6 today. -Historic Total bilirubin reported 2.4 (5 years ago) -AST/ALT/Alk Phos continue to be within normal reference range #ENA, Not using CPAP currently per patient #Primary Hypertension -Holding anti-hypertensive home medications (labetalol and Lisinopri) in setting of recovering fromshock with hypotension. -Patient systolic BP ranging 90-115 overnight and this morning #Obesity s/p gastric bypass surgery -Patient reported history of undergoing gastric bypass surgery in 2019 #Constipation - Resolved -Continue Dulcolax and Gertrude-Colace as ordered previously -Continue to monitor patient's bowel movements DVT prophylaxis: heparin gtt Diet: Dysphagia III soft diet Fluids: As ordered Code status: Full Discharge Planning Information: home with home PT Patient was seen, examined, and plans discussed with attending physician. Carol Bermudez MD Internal Medicine Resident, PGY-3 [facility] Primary Pulmonology Consult Service 03/02/2025 Cosigned by Ruth Kramer MD at 03/03/2025 2:30 PM EDT Associated attestation - Ruth Kramer MD - 03/03/2025 2:30 PM EDT Patient was seen and examined with the resident on the same date of service, I discussed the findings and therapeutic plan with the resident/fellow, I agree with the documentation, assessment and plan as above except for any edits/updates below. Ruth Kramer MD physician primary care sports medicine Pulmonary and critical care department [phone] * Cinthya Clark, SUPERVISOR PHOSPHATIC FERTILIZER - 03/01/2025 1:22 PM EDT Physical Therapy Physical Therapy Treatment Patient Name: Lindsay Pinto : 1965 Today's Date: 03/01/2025 Problem List[1] Start Time: 1310 Stop Time: 1322 Time Calculation (min): 12 min Objective Pt seated in recliner upon arrival. General Visit Information: PT Last Visit PT Received On: 03/01/25 General Subjective: pt agreeable to participate with therapy. pt reports that he is going to discharge to home from the hospital. pt reports that he is amb in hallway without assist. Session Comments: Upon arrival pt seated in bedside recliner. Precautions Precautions Medical Precautions: arterial line, fall risk, IV, tello, telemetry Pain Pain Assessment Pain Assessment: No/denies pain Cognition Cognition Overall Cognitive Status: Within Functional Limits Arousal/Alertness: Appropriate responses to stimuli Orientation Level: Oriented X4 Following Commands: Follows all commands and directions without difficulty General Assessment General Assessments: Activity Tolerance Activity Tolerance Comments: amb in hallway, per pt Cognition Overall Cognitive Status: Within Functional Limits Arousal/Alertness: Appropriate responses to stimuli Orientation Level: Oriented X4 Following Commands: Follows all commands and directions without difficulty Treatment: Therapeutic Exercise Therapeutic Exercise Activity 1: 20 reps total sit<->stand Transfers Transfer: Yes Transfer 1 Transfer From 1: Chair with arms Transfer Type 1: To and from Transfer to 1: Chair with arms Technique 1: Sit to stand, Stand to sit Transfer Device 1: none Transfer Level of Assistance 1: Distant supervision Trials/Comments 1: multiple reps roeslyn Treatment Comments: pt left as found, seated in recliner. in room to speak with pt. Outcome Assessments 6 Clicks (Mobility) Help from another person turning from your back to your side while in a flat bed without using bedrails: None Help from another person moving from lying on your back to sitting on the side of a flat bed without using bedrails: A little Help from another person moving to and from a bed to a chair (including a wheelchair): A little Help from another person standing up from a chair using your arms (e.g. wheelchair or bedside chair): A little Help from another person to walk in hospital room: A little Help from another person climbing 3-5 steps with a railing: A lot Mobility 6 Clicks T-Score: 18 Assessment/Plan PT Assessment PT Assessment/SUPERVISOR PHOSPHATIC FERTILIZER Summary: pt roselyn multiple sit<-.stand, HR elevated as high as 137. Medical Voucher Clerk waiting for HR to decreased to continue. entered room to speak with pt, no further ther ex completed.pt could benefit from cont therapy to improve his endurance & independence with functional mobility. Evaluation/Treatment Tolerance: (treatment limited by elevated HR & entering room to speak with pt) Medical Staff Made Aware: Yes PT Education/Comments: pt educated on PT POC Plan Level of assist: 1 assist Treatment/Interventions: Functional transfer training, LE strengthening/ROM, Endurance training, Bed mobility, Gait training, Balance training PT Plan: Skilled PT PT Frequency: 4 times per week PT Discharge Recommendations: Patient is able to return to prior living environment PT - Discharge Recommendations Placed: Yes Goals: Multi-Disciplinary Problems (from Physical Therapy) Active Problems Problem: Balance Start Date: 02/25/25 Goal Start Date Expected End Date End Date LTG - Patient will maintain standing and sitting balance to allow for completion of daily activities 02/25/25 03/11/25 -- Problem: Mobility Start Date: 02/25/25 Goal Start Date Expected End Date End Date LTG - Patient will ambulate at least 50 feet as medically appropriate with stand-by/contact guard using least restrictive assistive device 02/25/25 03/11/25 -- Goal Start Date Expected End Date End Date LTG - As pt's medical stability improves, he will navigate at least 8 steps with stand-by/contact guard using device as appropriate 02/25/25 03/11/25 -- Problem: Transfers Start Date: 02/25/25 Goal Start Date Expected End Date End Date STG - Transfer from bed to chair with SBA using least restrictive assistive device 02/25/25 03/11/25 -- Goal Start Date Expected End Date End Date STG - Patient to transfer to and from sit to supine with no assistance from flat HOB 02/25/25 03/11/25 -- Goal Start Date Expected End Date End Date STG - Patient will transfer sit to and from stand with SBA using least restrictive assistive [id number] 03/11/25 -- Problem: PT Misc Start Date: 02/25/25 Goal Start Date Expected End Date End Date LTG - Pt will tolerate 30+ minute session with minimal rest breaks and vitals remaining in normal limits for improvements in endurance. 02/25/25 03/11/25 -- [1] Patient Active Problem List Diagnosis Gout Primary hypertension Obesity ENA (obstructive sleep apnea) Ascending aorta dilatation Acute systolic CHF (congestive heart failure) (CMS/HCC) New onset a-fib (CMS/HCC) S/P gastric bypass Pericardial effusion Moderate mitral valve regurgitation Atrial fibrillation with RVR (CMS/HCC) A-fib (CMS/HCC) Hematoma Cosigned by Helene Wetzel, PT at 03/01/2025 3:00 PM EDT * [facility] - 03/01/2025 11:04 AM EDT Occupational Therapy Occupational Therapy Treatment Patient Name: Lindsay Pinto : 1965 Today's Date: 03/01/2025 Start Time: 1104 Stop Time: 1129 Time Calculation (min): 25 min OT Therapeutic Procedures Time Entry Self Care/Home Management (ADLs) Time Entry: 25 Problem List Problem List[1] Pain: Pain Assessment Pain Assessment: No/denies pain Pain Score: 0 - No pain Objective General Visit Information: OT Last Visit OT Received On: 03/01/25 General Subjective: I have been doing pretty good since I have been here. I dont think that I need more OT.I would like to do steps with PT. Family/Caregiver Present: No Precautions Precautions Medical Precautions: arterial line, fall risk, IV, tello, telemetry Cognition Cognition Overall Cognitive Status: Within Functional Limits Arousal/Alertness: Appropriate responses to stimuli Orientation Level: Oriented X4 Following Commands: Follows all commands and directions without difficulty Safety Judgment: Good awareness of safety precautions Awareness of Errors: Good awareness of errors made Deficits: Fully aware of deficits Attention Span: Appears intact Memory: Appears intact Problem Solving: Able to problem solve independently Communication: Intact ADL Assessment: Grooming Grooming Level of Assistance: Independent Grooming Where Assessed: Sitting sinkside Grooming Comments: Pt stood at sink without device to complete grooming tasks UE Bathing UE Bathing Level of Assistance: Independent UE Bathing Where Assessed: Standing sinkside UE Bathing Comments: (Without device. Pt did not require rest breaks) LE Bathing LE Bathing Level of Assistance: Independent LE Bathing Where Assessed: Standing sinkside UE Dressing UE Dressing Level of Assistance: Setup UE Dressing Where Assessed: (Standing sink side) UE Dressing Comments: (Assist required for lines only) LE Dressing LE Dressing: Yes Sock Level of Assistance: Independent LE Dressing Where Assessed: Sitting in chair LE Dressing Comments: To change socks Static Sitting Balance Static Sitting Balance Static Sitting-Balance Support: No upper extremity supported Static Sitting-Level of Assistance: Independent Dynamic Sitting Balance Dynamic Sitting Balance Dynamic Sitting-Balance Support: No upper extremity supported, Feet supported Dynamic Sitting-Balance: Forward lean, Reaching for objects Dynamic Sitting Balance-Level of Assistance: Independent Dynamic Sitting-Comments: During LB dressing Static Standing Balance Static Standing Balance Static Standing-Balance Support: No upper extremity supported, Unilateral upper extremity supported Static Standing-Level of Assistance: Independent Static Standing-Comment/Number of Minutes: While standing at sink Dynamic Standing Balance Dynamic Standing Balance Dynamic Standing-Balance Support: No upper extremity supported Dynamic Standing-Balance: Forward lean, Lateral lean, Reaching for objects, Reaching across midline Dynamic Standing Balance-Level of Assistance: Independent Dynamic Standing-Comments: While completing bathing tasks Transfers Transfers Transfer: Yes Transfer 1 Transfer From 1: Sit Transfer Type 1: To and from Transfer to 1: Stand Technique 1: Sit to stand, Stand to sit Transfer Device 1: none Transfer Level of Assistance 1: Independent Trials/Comments 1: x1 Transfers 2 Transfer From 2: Chair with arms Transfer Type 2: To and from Transfer to 2: (Standing sink side) Technique 2: (Ambulating) Transfer Device 2: none Transfer Level of Assistance 2: Independent Trials/Comments 2: x1 Treatment Comments: Pt returned to bedside chair at EOS Outcome Assessments AM-PAC 6 Clicks Putting on and taking off regular lower body clothing?: None (Independent) Bathing(Including washing,rinsing,drying)?: None (Independent) Toileting, which includes using the toilet,bedpan,or urinal?: None (Independent) Putting on and taking off regular upper body clothing?: None (Independent) Taking care of personal grooming such as brushing teeth?: None (Independent) Eating meals?: None (Independent) Total Score OT [facility]: 24 Assessment/Plan OT Assessment OT Impairments: Decreased endurance OT Assessment/MARJORIE Summary: Pt is progressing towards goals and has no OT concerns regarding discharge. Prognosis: Good Medical Staff Made Aware: Yes Strengths: Ability to acquire knowledge, Attitude of self, Capable of completing ADLs semi/independent, Insight into problems, Living arrangement secure, Premorbid level of function, Support of extended family/friends Barriers to Discharge: Housing layout OT Education/Comments: Medical Voucher Clerk recommending shower chair to conserve energy during showering due to cardiac issues. Pt is agreeable. Plan Level of assist: 1 assist Treatment Interventions: ADL retraining, Functional transfer training, Endurance training, Cognitive reorientation, Patient/family training, Equipment evaluation/education, Neuromuscular reeducation OT Plan: Skilled OT OT Frequency: (S) (Medical Voucher Clerk will discuss discontinuation of OT services with OTR due to meeting goals.) OT Discharge Recommendations: Patient is able to return to prior living environment Equipment Recommended: shower chair OT Goals: Multi-Disciplinary Problems (from Occupational Therapy) Active Problems Problem: Bathing Start Date: 02/25/25 Goal Start Date Expected End Date End Date LTG - Patient will utilize adaptive techniques to bathe body with stand- by/contact guard 02/25/25 03/11/25 -- Problem: Dressings Lower Extremities Start Date: 02/25/25 Goal Start Date Expected End Date End Date LTG - Patient will dress lower body with stand-by/contact guard 02/25/25 03/11/25 -- Problem: Dressing Upper Extremities Start Date: 02/25/25 Goal Start Date Expected End Date End Date LTG - Patient will complete upper body dressing with no assistance 02/25/25 03/11/25 -- Problem: Grooming Start Date: 02/25/25 Goal Start Date Expected End Date End Date STG - Patient will tolerate standing sink side to complete grooming with no assistance 02/25/25 03/11/25 -- Problem: Toileting Start Date: 02/25/25 Goal Start Date Expected End Date End Date LTG - Patient will utilize adaptive techniques/equipment to complete daily toileting tasks with no assistance 02/25/25 03/11/25 -- Problem: OT Misc Start Date: 02/25/25 Goal Start Date Expected End Date End Date Pt will demo increased activity tolerance by participating in 20 minutes of dyn. sitting/standing tasks in least restrictive environment with mod. Indep. as needed for safe completion of all functional tasks and functional ambulation/transfers. 02/25/25 03/11/25 -- Goal Start Date Expected End Date End Date Pt will complete functional transfers and functional ambulation with stand- by/contact guard using least restrictive device. 02/25/25 03/11/25 -- [facility] [1] Patient Active Problem List Diagnosis Gout Primary hypertension Obesity EAN (obstructive sleep apnea) Ascending aorta dilatation Acute systolic CHF (congestive heart failure) (CMS/HCC) New onset a-fib (CMS/HCC) S/P gastric bypass Pericardial effusion Moderate mitral valve regurgitation Atrial fibrillation with RVR (CMS/HCC) A-fib (CMS/HCC) Hematoma Cosigned by Dylan Purvis OT at 03/10/2025 3:45 PM EDT * Julio Barnard MD - 03/01/2025 9:13 AM EDT Images from the original note were not included. . Cardiology Progress Note Subjective HPI: Lindsay Pinto is a 59 y.o. male with a PMHx of hypertension, severe LVH, ENA, obesity s/p gastric bypass presents as a direct mission for [facility] with progressively worsening dyspnea, abdominal swelling and anasarca in the setting of new onset A-fib as well as new onset systolic CHF. He had a CXR completed showing cardiomegaly with vascular congestion. CT of the abdomen was completed showing ascites and anasarca. Labs show a mild GILLIAN and an elevated BNP over 5000. EKG was completed showing A-fib with RVR which is new for the patient. He was given 2 doses of digoxin due to borderline hypotension and given a dose of Xarelto. Echocardiogram was completed showing a newly dropped EF of 15 to 20% with moderate pulmonary hypertension, moderate mitral valve regurgitation and a small pericardial effusion. He was transferred [facility] for higher level of care. At [facility], he was started on Lasix 40 mg IV BID and he has made nearly net negative 3L of urine. Vitally, he is afebrile, tachycardic in the 100s, BP 100/63, satting well on RA. Cardiac history: Severe LVH per 2019 Echo that showed LV dysfunction, EF 40% and Echo 05/14/23 showed improvement in EF 50-55%, aortic dilation, mitral valve regurg Cardiac workup: ECHO 05/14/2023: Global LV systolic function is low normal limits; visually estimated EF 50-55%. RVis normal in size and function. Normal diastolic function. Biatrial enlargement. Mild mitral regurg. Aortic root is mildly dilated. Trivial pericardial effusion is seen Updates 02/25/2025: Pt denies chest pain, shortness of breath, nausea, vomiting, diarrhea. Vitally, the patient is afebrile but remains in A fib. His HR improved to the 90s & 100s with SBP 90s-100s. His acute blood loss anemia is worsening Hgb 7.7 from 9.9 yesterday. He was given 1 unit of pRBC today and repeat CTAP ordered to see if rectus sheath hematoma has worsened 02/26/2025: Pt denies chest pain, shortness of breath, nausea, vomiting, diarrhea. Vitally, the patient is afebrile but remains in A fib with HR staying in the 90s & 100s with SBP 90s-100s. His acute blood loss anemia is stable Hgb 7.9. Repeat CTAP remains stable and the size of his hematoma is improving. 03/01/2025: Pt continues to deny chest pain, shortness of breath, abdominal pain. Vitally, he remains afebrile but still in A fib w/ RVR. Hemoglobin is stable in the 8s. Digoxin level low at 0.3. Start patient on loading dose of digoxin 500 mcg IV. Start Lopressor 25 mg q6. Repeat Echo Objective Current Medications[1] Objective: Patient Vitals for the past 24 hrs: BP Temp Temp src Pulse Resp SpO2 Weight 03/01/25 0746 110/72 36.2 ??C (97.2 ??F) Temporal (!) 122 20 99 % -- 03/01/25 0744 98/74 -- -- (!) 118 26 98 % -- 03/01/25 0400 106/76 36.4 ??C (97.5 ??F) Temporal 102 20 96 % -- 03/01/25 0117 -- -- -- -- -- -- 112 kg (246 lb 3.2 oz) 02/28/25 2300 109/66 36.5 ??C (97.7 ??F) Temporal 89 18 97 % -- 02/28/25 1945 102/78 36.5 ??C (97.7 ??F) Temporal (!) 121 19 99 % -- 02/28/25 1605 96/71 36.4 ??C (97.5 ??F) Temporal 100 16 98 % -- 02/28/25 1300 101/76 -- -- 106 18 98 % -- 02/28/25 1230 98/75 36.4 ??C (97.5 ??F) Temporal (!) 113 23 100 % -- Physical Examination: Physical Exam Constitutional: Appearance: Normal appearance. Cardiovascular: Rate and Rhythm: Tachycardia present. Rhythm irregular. Pulses: Normal pulses. Heart sounds: Normal heart sounds. Pulmonary: Effort: Pulmonary effort is normal. No respiratory distress. Breath sounds: Normal breath sounds. Abdominal: General: Bowel sounds are normal. There is no distension. Palpations: Abdomen is soft. Neurological: General: No focal deficit present. Mental Status: He is oriented to person, place, and time. Relevant Lab Results Encounter Date: 02/18/25 ECG 12 lead Result Value Ventricular Rate 148 Atrial Rate 148 KS Interval 136 QRS DURATION 166 QT Interval 306 QTC CALCULATION(BAZETT) 480 P Moselle 4 R-Moselle -50 T Wave Moselle 159 Impression Sinus tachycardia Left axis deviation Non-specific intra-ventricular conduction block Abnormal ECG When compared with ECG of 22-FEB-2025 07:05, Sinus rhythm has replaced Atrial fibrillation Confirmed by Prabhu Chavez ([id number]) on 02/24/2025 3:58:26 AM No results found for: CKTOTAL , CKMB , CKMBINDEX , TROPONINI No echocardiogram results found for the past 12 months No nuclear medicine results found for the past 12 months Relevant Imaging Results CTA Abdomen Pelvis W IV Contrast Narrative: CTA ABDOMEN/PELVIS HISTORY: Hematoma COMPARISON: 02/22/2025 TECHNIQUE: Multidetector CT angiogram through the abdomen and pelvis performed following the uncomplicated intravenous administration of 100 mL Omnipaque 350. 3-D maximum intensity projection reconstructions constructed under concurrent physician supervision on a independent workstation. 3-D images obtained to improve visualization of vascular detail. FINDINGS: Small left pleural effusion with adjacent atelectasis. Small pericardial effusion. Airspace opacities in the right lower lobe. Cholelithiasis. The liver, spleen, adrenal glands, pancreas, and kidneys are unremarkable. No enlarged abdominal or pelvic lymph nodes. Bladder decompressed by Tello catheter. Bilateral inferior rectus sheath hematomas (left larger than right) remain. Left-sided hematoma measures 9.0 x 5.7 cm (8.3 x 5.8 cm previously). A large hematoma just posterior to the rectus sheath hematomas in the extraperitoneal space of the pelvis measures 14.5 x 7.2 cm (previously 16.8 x 10.8 cm). There is hemorrhage extending into bilateral retroperitoneal regions (left greater than right), with the amount of this hemorrhage increased since previous study particularly on the left where largest component of hematoma measures 8.3 x 4.6 cm (series 4, image 108). Normal appendix. The small and large bowel are of normal caliber with no evidence of bowel wall thickening. Soft tissue edema in the lower abdomen. Postsurgical changes from previous partial bowel resections. No bowel dilatation. Intra-abdominal vascular structures enhance normally. 3D reformatted images confirm the source data findings. Impression: * Extensive hemorrhage/hematomas involving the inferior rectus sheath (left greater than right), extraperitoneal space of the pelvis, and retroperitoneum. The overall amount of hemorrhage has not significantly changed, though there has been some redistribution of hemorrhage with increase in amount within the lower retroperitoneal spaces (left greater than right) though slightly smaller amount of hemorrhage in the extraperitoneal space of the pelvis. * Unable to accurately comment on presence or absence of active arterial bleeding on this study due to lack of true arterial phase imaging. * Right lower lobe airspace opacities may represent pneumonia, aspiration possible. * Small left pleural effusion and small pericardial effusion. All CT scans at this facility use dose modulation, iterative reconstruction, and/or weight based dosing when appropriate to reduce radiation dose to as low as reasonably achievable. Electronically signed: Daniel Diaz MD. ASSESSMENT Acute HFrEF EF 10 to 15% probably tachycardia mediated with history of heart failure with improved ejection fraction New onset persistent A-fib with RVR [id number] 2 Worsening GILLIAN Acute blood loss anemia due to rectal sheath hematoma after starting AC Small pericardial effusion on Echo Mild aortic dilatation Primary hypertension ENA S/p gastric bypass Obesity PLAN Transferred out of the ICU given his stable hemoglobin. Continue to hold heparin drip for now or any AC. Remains a poor candidate for BERNARDINO/Cardioversion at the moment due to his recent hemorrhagic shock. Digoxin level <0.3. Start patient on loading dose of digoxin 500 mcg IV. Start Lopressor 25 mg q6 for rate control of his A fib Repeat Echo when VR is controlled Ideally, will need BERNARDINO and CV and he needs cardiac cath to evaluate for underlying CAD as an etiology of CM when is able to be restarted on AC, Cardiology will continue to follow patient. This note was, at least in part, completed using a voice bottle inspector system. Every effort was made to ensure accuracy. However, inadvertent computerized bottle inspector errors may be present. Julio Barnard MD [1] Current Facility-Administered Medications: acetaminophen (Tylenol) tablet 650 mg, 650 mg, oral, q6h PRN, Carol Carter, VACATION PLANNER, 650 mg at [COMPLETED] amiodarone in dextrose,iso-osm (Nexterone) IVPB 150 mg, 150 mg, intravenous, Once, Stopped at 02/22/25 1345 FOLLOWED BY [] amiodarone (Nexterone) infusion, 1 mg/min, intravenous, Continuous, Stopped at 02/22/25 1945 FOLLOWED BY amiodarone (Nexterone) infusion, 0.5 mg/min,intravenous, Continuous, Norm North MD, Last Rate: 16.67 mL/hr at 03/01/25 0458, 0.5 mg/min at 03/01/25 0458 bisacodyl (Dulcolax) EC tablet 5 mg, 5 mg, oral, Daily, Norm North MD, 5 mg at 03/01/25 0851 [Held by provider] digoxin (Lanoxin) tablet 250 mcg, 250 mcg, oral, Daily, Susan Mcpherson MD, 250 mcgat 02/21/25 0844 diphenhydrAMINE (BENADryl) capsule 25 mg, 25 mg, oral, q8h PRN, Jordan Pitts MD, 25 mg at 02/25/25 0149 ferrous sulfate tablet 325 mg, 325 mg, oral, Daily with breakfast, Marizol Brizuela DO, 325 mg at 03/01/25 0851 [Held by provider] furosemide (Lasix) tablet 40 mg, 40 mg, oral, q12h, Gabriele Yoder MD, 40 mg at 02/21/25 2255 HYDROcodone-acetaminophen (Montrose) 5-325 mg per tablet 1 tablet, 1 tablet, oral, q6h PRN, Suleiman Corcoran MD, 1 tablet at 02/21/25 2240 HYDROmorphone (Dilaudid) injection 0.2 mg, 0.2 mg, intravenous, q4h PRN, Norm North MD, 0.2 mg at 02/22/25 1909 melatonin tablet 5 mg, 5 mg, oral, Nightly PRN, Carol Carter CNP [Held by provider] metoprolol succinate XL (Toprol-XL) 24 hr tablet 100 mg, 100 mg, oral, 2 times daily, Gabriele Yoder MD, 100 mg at 02/21/25 1630 metoprolol tartrate (Lopressor) injection 5 mg, 5 mg, intravenous, Once, Gabriele Yoder MD norepinephrine in sodium chloride 0.9 % (Levophed) 8 mg/250ml infusion, 0.01-2 mcg/kg/min, intravenous, Continuous, Norm North MD, Stopped at 02/26/25 1800 sennosides-docusate sodium (Gertrude-Colace) 8.6-50 mg per tablet 1 tablet, 1 tablet, oral, Daily PRN, Norm North MD, 1 tablet at 02/23/25 0951 Insert peripheral IV, , , Once AND Saline lock IV, , , Once AND sodium chloride flush 10 mL, 10 mL, intravenous, q8h PRN, Carol Carter, HARINI sodium chloride irrigation solution 0.9 % 3,000 mL, 3,000 mL, irrigation, Continuous, Lo Vasquez MD, 3,000 mL at 02/23/25 181 [Held by provider] spironolactone (Aldactone) tablet 25 mg, 25 mg, oral, Daily, Susan Mcpherson MD, 25mg at 02/21/25 0843 tamsulosin (Flomax) 24 hr capsule 0.4 mg, 0.4 mg, oral, Daily, Norman Tovar MD, 0.4 mg at 851 [Held by provider] valsartan (Diovan) tablet 80 mg, 80 mg, oral, Daily, Gabriele Yoder MD, 80 mg at 02/21/25 0844 Cosigned by Jose Meneses MD at 03/01/2025 10:40 PM EDT Associated attestation - Jose Meneses MD - 03/01/2025 10:40 PM EDT By using the attestations below, the signing clinician agrees that I have read and verify that thedocumentation has been personally reviewed by me and ensure that the documentation accurately reflects the encounter. GC: I personally saw this patient on the day of the encounter, performed the brumfield portion(s) of the service and participated in the management and confirm the resident's/ fellow's Dr Barnard's documentation. Please note there may be an additional personal documentation from me. Jose Meneses MD, FACC * Carol Bermudez MD - 03/01/2025 7:33 AM EDT Images from the original note were not included. Pulmonology Progress Note Patient - Lindsay Pinto Age - 59 [facility] 1965 [id number] Date of Admission - 02/18/2025 5:46 PM Subjective Patient was seen and examined at bedside today morning. No unexpected acute events reported overnight. He is saturating well on room air. Denies SOB, chest pain, palpitation, cough. Denies no new or concerning symptoms. CXR 02/22/2025: IMPRESSION: *Left central venous catheter tip projects over the mid SVC. No postprocedural pneumothorax. *Retrocardiac atelectasis and/or pneumonia noted. HPI/ Interval History Lindsay Pinto is an 59 y.o. male who came from home with past medical history of hypertension, severe LVH, ENA, obesity s/p gastric bypass presents as a direct mission for [facility] with newonset A-fib as well as new onset systolic CHF. Patient initially presenting to [place] with bloating and constipation. He states that for the past few weeks he has been having abdominal swelling, bloating. He states associated shortness of breath with exertion. He denies chest pain, nausea, vomiting. He does state mild fatigue. He had a CXR completed showing cardiomegaly with vascular congestion. CT of the abdomen was completed showing ascites and anasarca. Labs show a mild GILLIAN and an elevatedBNP over 5000. EKG was completed showing A-fib with RVR which is new for the patient. He was given 2 doses of digoxin due to borderline hypotension and given a dose of Xarelto. Echocardiogram was completed showing a newly dropped EF of 15 to 20% with moderate pulmonary hypertension, moderate mitralvalve regurgitation and a small pericardial effusion. He was transferred [facility] for higher level of care. Patient does follow with cardiology outpatient for LVH. Per cardiology note, the echocardiogram performed on 05/14/2023 showed LVH with an improvement in EF to 50-55%. His latest echocardiogram did show a significant drop in EF. Cardiology is onboard inpatient for his new-onset atrial fibrillation with RVR. Patient was intially treated with a Cardizem drip; however, it was discontinue due to hypot ension. He has been treated with Toprol XL 100 mg BID and digoxin 250 mcg daily. He is scheduled for BERNARDINO and cardioversion today. CT abdomen and pelvis was performed yesterday for ongoing lower abdominal pain. It did reveal The right and left rectus abdominal muscles are abnormal and contain hematomas. The left is larger in size. Hemoglobin did drop from 15.4 to 14.0, but most recent hemoglobin this morning is 14.5 with a hematocrit of 42.9. MICU was consulted after a rapid response was called around 7 AM for hypotension with a BP of 53/38. He was seen and examined at bedside this morning. Blood pressure is now stable with the most recentpressure of 110/72. The patient is speaking in full sentences. He denies any CP or SOB. He also denies lightheadedness, dizziness, or nausea. He endorses continued abdominal pain that has been present for the past two days. He states that is started after he took a shower and felt tired, so he jumped on his bed. He then felt a sudden pain. He does endorse constipation. Last bowel movement was twodays ago. Patient had another episode of hypotension this morning with a recorded blood pressure of 52/34. Hewas given albumin and 250 cc lactated ringer and transferred to the MICU for hemodynamic instability. OBJECTIVE Vitals height is 1.727 m (5' 7.99 ) and weight is 112 kg (246 lb 3.2 oz). His temporal temperature is 36.4??C (97.5 ??F). His blood pressure is 106/76 and his pulse is 102. His respiration is 20 and oxygensaturation is 96%. Temp: [36.1 ??C (97 ??F)-36.5 ??C (97.7 ??F)] 36.4 ??C (97.5 ??F) Heart Rate: [89-126] 102 Resp: [16-25] 20 BP: (96-114)/(66-99) 106/76 Physical Exam: General: Patient in no acute distress, resting in chair this morning in hospital room, appears comfortable HEENT: Normocephalic, EOMI Neck: Supple Cardiovascular: Mild Tachycardia in low 100s this morning,, A-fib Rhythm, S1 and S2 present Respiratory: In No acute respiratory distress, no wheezing, no rhonchi, unlabored breathing on roomair, saturating above 95 percent this morning. Abdomen: Soft, nontender, nondistended, no guarding or rebound Extremities: No edema, No tenderness Neuro: No focal deficits observed, patient moves all limbs against gravity Skin: Warm, Mild Jaundice noted Weight: Admission weight: 118 kg (259 lb 12.8 oz) Wt Readings from Last 1 Encounters: 03/01/25 112 kg (246 lb 3.2 oz) Input/Output: Intake/Output Summary (Last 24 hours) at 03/01/2025 0733 Last data filed at 03/01/2025 0500 Gross per 24 hour Intake -- Output 725 ml Net -725 ml Lab Results CBC: Results from last 7 days Lab Units 02/28/25 0342 02/27/25 2338 02/27/25 1849 WBC AUTO 10*3/uL 8.84 9.07 10.96* HEMOGLOBIN g/dL 8.3* 8.9* 9.6* HEMATOCRIT % 24.3* 25.1* 27.4* PLATELETS AUTO 10*3/uL 255 261 284 Coagulation: Results from last 7 days Lab Units 02/22/25 1149 INR 1.47* Metabolic Panel: Results from last 7 days Lab Units 03/01/25 0512 02/28/25 0342 02/27/25 0558 SODIUM mmol/L 130* 131* 131* POTASSIUM mmol/L 3.9 4.0 4.1 CHLORIDE mmol/L 103 102 102 CO2 mmol/L 22 23 25 BUN mg/dL 14 16 17 CREATININE mg/dL 0.67* 0.75 0.64* GLUCOSE mg/dL 94 98 100 CALCIUM mg/dL 7.7* 7.9* 7.8* PHOSPHORUS mg/dL 2.4* 2.0* 2.0* MAGNESIUM mg/dL 2.0 2.0 2.1 Liver Panel: Results from last 7 days Lab Units 03/01/25 0512 02/28/25 0342 02/27/25 0558 ALBUMIN g/dL 2.9* 3.0* 2.9* BILIRUBIN TOTAL mg/dL 3.6* 3.8* 3.4* ALT U/L 17 20 21 AST U/L 17 14 16 ALK PHOS U/L 58 60 54 Anemia Labs: Results from last 7 days Lab Units 02/26/25 0513 VITAMIN B 12 pg/mL 1,129* FOLATE ng/mL 17.66 FERRITIN ng/mL 234.0 IRON ug/dL 20* TIBC ug/dL 227* IRON SATURATION % 9* Lipid Panel: No lab exists for component: CHOLHDL Urine Labs: Lab Results Component Value Date WBCU 21-50 (A) 02/24/2025 UROBILINOGEN Normal 02/24/2025 Additional Labs: No lab exists for component: LACTICACID , PROCALCITON Radiology CTA Abdomen Pelvis W IV Contrast Narrative: CTA ABDOMEN/PELVIS HISTORY: Hematoma COMPARISON: 02/22/2025 TECHNIQUE: Multidetector CT angiogram through the abdomen and pelvis performed following the uncomplicated intravenous administration of 100 mL Omnipaque 350. 3-D maximum intensity projection reconstructions constructed under concurrent physician supervision on a independent workstation. 3-D images obtained to improve visualization of vascular detail. FINDINGS: Small left pleural effusion with adjacent atelectasis. Small pericardial effusion. Airspace opacities in the right lower lobe. Cholelithiasis. The liver, spleen, adrenal glands, pancreas, and kidneys are unremarkable. No enlarged abdominal or pelvic lymph nodes. Bladder decompressed by Tello catheter. Bilateral inferior rectus sheath hematomas (left larger than right) remain. Left-sided hematoma measures 9.0 x 5.7 cm (8.3 x 5.8 cm previously). A large hematoma just posterior to the rectus sheath hematomas in the extraperitoneal space of the pelvis measures 14.5 x 7.2 cm (previously 16.8 x 10.8 cm). There is hemorrhage extending into bilateral retroperitoneal regions (left greater than right), with the amount of this hemorrhage increased since previous study particularly on the left where largest component of hematoma measures 8.3 x 4.6 cm (series 4, image 108). Normal appendix. The small and large bowel are of normal caliber with no evidence of bowel wall thickening. Soft tissue edema in the lower abdomen. Postsurgical changes from previous partial bowel resections. No bowel dilatation. Intra-abdominal vascular structures enhance normally. 3D reformatted images confirm the source data findings. Impression: * Extensive hemorrhage/hematomas involving the inferior rectus sheath (left greater than right), extraperitoneal space of the pelvis, and retroperitoneum. The overall amount of hemorrhage has not significantly changed, though there has been some redistribution of hemorrhage with increase in amount within the lower retroperitoneal spaces (left greater than right) though slightly smaller amount of hemorrhage in the extraperitoneal space of the pelvis. * Unable to accurately comment on presence or absence of active arterial bleeding on this study due to lack of true arterial phase imaging. * Right lower lobe airspace opacities may represent pneumonia, aspiration possible. * Small left pleural effusion and small pericardial effusion. All CT scans at this facility use dose modulation, iterative reconstruction, and/or weight based dosing when appropriate to reduce radiation dose to as low as reasonably achievable. Electronically signed: Daniel Diaz MD. Cultures Lab Results Component Value Date BLOOD CULTURE No growth at 5 days 02/23/2025 Medications Scheduled: bisacodyl, 5 mg, oral, Daily [Held by provider] digoxin, 250 mcg, oral, Daily ferrous sulfate, 325 mg, oral, Daily with breakfast [Held by provider] furosemide, 40 mg, oral, q12h [Held by provider] metoprolol succinate XL, 100 mg, oral, 2 times daily metoprolol tartrate, 5 mg, intravenous, Once sodium chloride irrigation solution, 3,000 mL, irrigation, Continuous [Held by provider] spironolactone, 25 mg, oral, Daily tamsulosin, 0.4 mg, oral, Daily [Held by provider] valsartan, 80 mg, oral, Daily Infusions: amiodarone, 0.5 mg/min, Last Rate: 0.5 mg/min (03/01/25 9263) norEPINEPHrine, 0.01-2 mcg/kg/min, Last Rate: Stopped (02/26/25 1800) As Needed: PRN medications: acetaminophen, diphenhydrAMINE, HYDROcodone-acetaminophen, HYDROmorphone, melatonin, sennosides-docusate sodium, Insert peripheral IV AND Saline lock IV AND sodium chloride Assessment and Plan #Cardiologic and Hypovolemic Shock, likely secondary to New onset A-fib and Acute Blood Loss Anemiafrom Rectus Shealth Hematoma - improving -Levophed was discontinued 02/26 #Bilateral inferior rectus sheath hematoma, likely contributing to above #Right Pelvic Hematoma, likely contributing to above -Measurements were reported 15.1 x 7.9 cm on the left and 5.8 x 2.7 cm on the right -Repeat CTA abdomen measured the left side hematoma as 9.0 x 5.7 cm and a hematoma posterior to therectus sheath in the extraperitoneal space measuring 14.5 x 7.2 cm -Vascular Surgery was consulted, hemoglobin stable, No need for surgical intervention at this time,signed off, patient to follow-up in the office on discharge #New onset Afib with RVR and LBBB #Acute decompensated systolic heart failure -Ejection Fraction of 15% reported on recent Echo from outside hospital -[id number] score of 2 given patients history of HTN and CHF -Holding anticoagulationi at this time given concerns for active bleeding -Cardiology reported patient is poor candidate for BERNARDINO/Cardioversion due to active bleeding at thistime -Will need final recommendations on medications -Cardiology was reported planning for ischemic work-up once rhythm is normalized, Holding GDMT due to hypotension -Follow-up with Cardiology, recommendations appreciated regarding transition to oral regimen for amiodarone, potential ischemic work-up, and discharge planning/life-vest, etcetera as appropriate #GILLIAN previously, likely prerenal secondary to atrial fibrillation and hypovolemia - GILLIAN resolved #Gross hematuria previously - Resolved -Creatinine continues to be normal today, value of 0.67 -Patient denies any hematuria the past day. -Nephrology had assisted in patients care previously, work-up performed, renal ultrasound minimal prominence of the right renal pelvis without calyceal dilatation, Nephrology signed off -Urology consulted previously, patient's Urinary Tello was upsized to 22 Lat[place] three-way and patient was started on CBI with immediate pink to clear return, CBI was clamped (02/24) #Leukocytosis - Resolved -WBC normal today and yesterday -2/2 Blood cultures on 02/22 and 2/2 Blood cultures 02/23 No growth to date as of this morning -Patient Afebrile today and prior days #Jaundice with hyperbilirubinemia -Total bilirubin value of 3.6 today. -Historic Total bilirubin reported 2.4 (5 years ago) -AST/ALT/Alk Phos continue to be within normal reference range #ENA, Not using CPAP currently per patient #Primary Hypertension -Holding anti-hypertensive home medications (labetalol and Lisinopri) in setting of recovering fromshock with hypotension. -Patient systolic BP ranging 90-115 overnight and this morning #Obesity s/p gastric bypass surgery -Patient reported history of undergoing gastric bypass surgery in 2019 #Constipation - Resolved -Continue Dulcolax and Gertrude-Colace as ordered previously -Continue to monitor patient's bowel movements DVT prophylaxis: Held in setting of concern for active bleed Diet: Dysphagia III soft diet Fluids: As ordered Code status: Full Discharge Planning Information: home with home PT Patient was seen, examined, and plans discussed with attending physician. Craol Bermudez MD Internal Medicine Resident, PGY-3 [facility] Primary Pulmonology Consult Service 03/01/2025 Cosigned by Ruth Kramer MD at 03/02/2025 10:06 AM EDT Associated attestation - Ruth Kramer MD - 03/02/2025 10:06 AM EDT Patient was seen and examined with the resident on the same date of service, I discussed the findings and therapeutic plan with the resident/fellow, I agree with the documentation, assessment and plan as above except for any edits/updates below. No acute events, HR better controlled H and H stable Continue to hold anticoagulation Continue Amio/digoxin Lopresor added, GDMT per cardiology CHF education and follow up appointment provided Repeat ECHO to check EF Ruth Kramer MD physician primary care sports medicine Pulmonary and critical care department [phone] * Alber Nugent MD - 02/28/2025 7:08 AM EDT Images from the original note were not included. Pulmonology Progress Note Patient - Lindsay Pinto Age - 59 y.o. - 1965 [facility] # - [id number] Date of Admission - 02/18/2025 5:46 PM INTERVAL HISTORY Patient was seen and examined this morning No interval acute issues or significant events of concern overnight reported by nursing staff or patient. Patient reports normal bowel movements without blood, improvement in abdominal pain symptoms that were present on admission, denies recent hematuria No fevers charted overnight Patient continues to be on amiodarone infusion Heart Rate Max of 137 past night, Heart rate 103 this morning Afib rhythm, patient asymptomatic Blood pressure greater than 90 systolic overnight, 97/72 this morning Patient saturated above 90 percent on pulse oximetry overnight on room air and continues to saturate above 90 this morning, recently at 95% Anticoagulation held due to concerns for active bleeding Hemoglobin stable, value at 8.3 today, likely plan for CBC daily moving forward with less frequencyof needing to monitor hemoglobin Vascular surgery consulted reported Not planning for intervention at this time, signed off yesterday, recommended patient to follow-up in office at discharge Tello still in place, follow-up urology recommendations, appreciated Follow-up cardiology regarding plan for transitioning amiodarone to oral regimen, potential ischemic work-up, and discharge recommendations SUBJECTIVE ROS negative for chest pain, palpitations, shortness of breath, bowel/bladder concerns, or any other acute changes/concerns at this time. OBJECTIVE Vitals height is 1.727 m (5' 7.99 ) and weight is 111 kg (244 lb). His temporal temperature is 36.5 ??C (97.7 ??F). His blood pressure is 97/72 and his pulse is 103. His respiration is 26 and oxygen saturation is 95%. Temp: [36.2 ??C (97.2 ??F)-36.6 ??C (97.9 ??F)] 36.5 ??C (97.7 ??F) Heart Rate: [103-137] 103 Resp: [0-32] 26 BP: (92-115)/(66-79) 97/72 Arterial Line BP 1: (93-115)/(58-87) 98/64 Physical Exam: General: Patient in no acute distress, resting in chair this morning in hospital room, appears comfortable HEENT: Normocephalic, EOMI Neck: Supple Cardiovascular: Mild Tachycardia in low 100s this morning,, A-fib Rhythm, S1 and S2 present Respiratory: In No acute respiratory distress, no wheezing, no rhonchi, unlabored breathing on roomair, saturating above 95 percent this morning Abdomen: Soft, nontender, nondistended, no guarding or rebound Extremities: No edema, No tenderness Neuro: No focal deficits observed, patient moves all limbs against gravity Skin: Warm, Mild Jaundice noted Weight: Admission weight: 118 kg (259 lb 12.8 oz) Wt Readings from Last 1 Encounters: 02/28/25 111 kg (244 lb) Input/Output: Intake/Output Summary (Last 24 hours) at 02/28/2025 0709 Last data filed at 02/28/2025 0600 Gross per 24 hour Intake 491.16 ml Output 1325 ml Net -833.84 ml Lab Results CBC: Results from last 7 days Lab Units 02/28/25 0342 02/27/25 2338 02/27/25 1849 WBC AUTO 10*3/uL 8.84 9.07 10.96* HEMOGLOBIN g/dL 8.3* 8.9* 9.6* HEMATOCRIT % 24.3* 25.1* 27.4* PLATELETS AUTO 10*3/uL 255 261 284 Coagulation: Results from last 7 days Lab Units 02/22/25 1149 INR 1.47* Metabolic Panel: Results from last 7 days Lab Units 02/28/25 0342 02/27/25 0558 02/26/25 0513 SODIUM mmol/L 131* 131* 133* POTASSIUM mmol/L 4.0 4.1 3.9 CHLORIDE mmol/L 102 102 103 CO2 mmol/L 23 25 27 BUN mg/dL 16 17 25 CREATININE mg/dL 0.75 0.64* 0.80 GLUCOSE mg/dL 98 100 94 CALCIUM mg/dL 7.9* 7.8* 7.9* PHOSPHORUS mg/dL 2.0* 2.0* 1.8* MAGNESIUM mg/dL 2.0 2.1 2.2 Liver Panel: Results from last 7 days Lab Units 02/28/25 0342 02/27/25 0558 02/26/25 0513 ALBUMIN g/dL 3.0* 2.9* 2.9* BILIRUBIN TOTAL mg/dL 3.8* 3.4* 3.5* ALT U/L 20 21 24 AST U/L 14 16 16 ALK PHOS U/L 60 54 54 Anemia Labs: Results from last 7 days Lab Units 02/26/25 0513 VITAMIN B 12 pg/mL 1,129* FOLATE ng/mL 17.66 FERRITIN ng/mL 234.0 IRON ug/dL 20* TIBC ug/dL 227* IRON SATURATION % 9* Lipid Panel: No lab exists for component: CHOLHDL Urine Labs: Lab Results Component Value Date WBCU 21-50 (A) 02/24/2025 UROBILINOGEN Normal 02/24/2025 Additional Labs: No lab exists for component: LACTICACID , PROCALCITON Radiology CTA Abdomen Pelvis W IV Contrast Narrative: CTA ABDOMEN/PELVIS HISTORY: Hematoma COMPARISON: 02/22/2025 TECHNIQUE: Multidetector CT angiogram through the abdomen and pelvis performed following the uncomplicated intravenous administration of 100 mL Omnipaque 350. 3-D maximum intensity projection reconstructions constructed under concurrent physician supervision on a independent workstation. 3-D images obtained to improve visualization of vascular detail. FINDINGS: Small left pleural effusion with adjacent atelectasis. Small pericardial effusion. Airspace opacities in the right lower lobe. Cholelithiasis. The liver, spleen, adrenal glands, pancreas, and kidneys are unremarkable. No enlarged abdominal or pelvic lymph nodes. Bladder decompressed by Tello catheter. Bilateral inferior rectus sheath hematomas (left larger than right) remain. Left-sided hematoma measures 9.0 x 5.7 cm (8.3 x 5.8 cm previously). A large hematoma just posterior to the rectus sheath hematomas in the extraperitoneal space of the pelvis measures 14.5 x 7.2 cm (previously 16.8 x 10.8 cm). There is hemorrhage extending into bilateral retroperitoneal regions (left greater than right), with the amount of this hemorrhage increased since previous study particularly on the left where largest component of hematoma measures 8.3 x 4.6 cm (series 4, image 108). Normal appendix. The small and large bowel are of normal caliber with no evidence of bowel wall thickening. Soft tissue edema in the lower abdomen. Postsurgical changes from previous partial bowel resections. No bowel dilatation. Intra-abdominal vascular structures enhance normally. 3D reformatted images confirm the source data findings. Impression: * Extensive hemorrhage/hematomas involving the inferior rectus sheath (left greater than right), extraperitoneal space of the pelvis, and retroperitoneum. The overall amount of hemorrhage has not significantly changed, though there has been some redistribution of hemorrhage with increase in amount within the lower retroperitoneal spaces (left greater than right) though slightly smaller amount of hemorrhage in the extraperitoneal space of the pelvis. * Unable to accurately comment on presence or absence of active arterial bleeding on this study due to lack of true arterial phase imaging. * Right lower lobe airspace opacities may represent pneumonia, aspiration possible. * Small left pleural effusion and small pericardial effusion. All CT scans at this facility use dose modulation, iterative reconstruction, and/or weight based dosing when appropriate to reduce radiation dose to as low as reasonably achievable. Electronically signed: Daniel Diaz MD. Cultures Lab Results Component Value Date BLOOD CULTURE No growth at 4 days 02/23/2025 Medications Scheduled: bisacodyl, 5 mg, oral, Daily [Held by provider] digoxin, 250 mcg, oral, Daily ferrous sulfate, 325 mg, oral, Daily with breakfast [Held by provider] furosemide, 40 mg, oral, q12h [Held by provider] metoprolol succinate XL, 100 mg, oral, 2 times daily metoprolol tartrate, 5 mg, intravenous, Once sodium chloride irrigation solution, 3,000 mL, irrigation, Continuous [Held by provider] spironolactone, 25 mg, oral, Daily tamsulosin, 0.4 mg, oral, Daily [Held by provider] valsartan, 80 mg, oral, Daily Infusions: amiodarone, 0.5 mg/min, Last Rate: 0.5 mg/min (02/27/252058) norEPINEPHrine, 0.01-2 mcg/kg/min, Last Rate: Stopped (02/26/25 1800) As Needed: PRN medications: acetaminophen, diphenhydrAMINE, HYDROcodone-acetaminophen, HYDROmorphone, melatonin, sennosides-docusate sodium, Insert peripheral IV AND Saline lock IV AND sodium chloride Assessment and Plan #Cardiologic and Hypovolemic Shock, likely secondary to New onset A-fib and Acute Blood Loss Anemiafrom Rectus Shealth Hematoma - improving -Levophed was discontinued 02/26 -Patient's blood pressure remained over 90 systolic overnight and this morning, recent value of 97/76 (02/28) #Bilateral inferior rectus sheath hematoma, likely contributing to above #Right Pelvic Hematoma, likely contributing to above -Measurements were reported 15.1 x 7.9 cm on the left and 5.8 x 2.7 cm on the right -Repeat CTA abdomen measured the left side hematoma as 9.0 x 5.7 cm and a hematoma posterior to therectus sheath in the extraperitoneal space measuring 14.5 x 7.2 cm -Vascular Surgery was consulted, hemoglobin stable, No need for surgical intervention at this time,signed off, patient to follow-up in the office on discharge #New onset Afib with RVR and LBBB #Acute decompensated systolic heart failure -Ejection Fraction of 15% reported on recent Echo from outside hospital -[id number] score of 2 given patients history of HTN and CHF -Holding anticoagulationi at this time given concerns for active bleeding -Cardiology reported patient is poor candidate for BERNARDINO/Cardioversion due to active bleeding at thistime, signed off and recommended continuing amiodarone infusion and holding digoxin -Cardiology was reported planning for ischemic work-up once rhythm is normalized, Holding GDMT due to hypotension -Follow-up with Cardiology, recommendations appreciated regarding transition to oral regimen for amiodarone, potential ischemic work-up, and discharge planning/life-vest, etcetera as appropriate (02/28) #GILLIAN previously, likely prerenal secondary to atrial fibrillation and hypovolemia - GILLIAN resolved #Gross hematuria previously - Resolved Creatinine continues to be normal today, value of 0.75 (02/28) Continue to monitor intake output, urine output of 1.3L the past day (02/28) Patient denies any hematuria the past day (02/28) Nephrology had assisted in patients care previously, work-up performed, renal ultrasound minimal prominence of the right renal pelvis without calyceal dilatation, Nephrology signed off Urology consulted previously, patient's Urinary Tello was upsized to 22 [place] three-way and patient was started on CBI with immediate pink to clear return, CBI was clamped (02/24), continuing to follow patient Patient continues to have tello in place, Follow-up urology regarding recommendations, appreciated (02/28) #Leukocytosis - Resolved WBC normal today and yesterday 2/2 Blood cultures on 02/22 and 2/2 Blood cultures 02/23 No growth to date as of this morning Patient Afebrile today and prior days #Jaundice with hyperbilirubinemia Total bilirubin value of 3.8 today (02/28), from 3.4 yesterday Historic Total bilirubin reported 2.4 (5 years ago) AST/ALT/Alk Phos continue to be within normal reference range #ENA, Not using CPAP currently per patient #Primary Hypertension -Holding anti-hypertensive home medications (labetalol and Lisinopri) in setting of recovering fromshock with hypotension -Patient systolic BP ranging 92-115 overnight and this morning (02/28) #Obesity s/p gastric bypass surgery -Patient reported history of undergoing gastric bypass surgery in 2019 during physical exam today (02/28) #Constipation - Resolved Patient reports having normal bowel movement the past day Denies issues or concerns for constipation today (02/28) Also denies pain or bloody/black stools during bowel movements Continue Dulcolax and Gertrude-Colace as ordered previously Continue to monitor patient's bowel movements DVT prophylaxis: Held in setting of concern for active bleed Diet: Dysphagia III soft diet Fluids: As ordered Code status: Full Discharge Planning Information: -Patient currently on amiodarone infusion per cardiology recommendations, tachycardia, a-fib rhythm -Patient has stable but soft blood pressures while off pressors -Hemoglobin has been stable -Patient will need follow-up with Cardiology and Vascular Surgery Outpatient per their recommendations on discharge when appropriate -PT/OT consulted previously, evaluated patient and recommended continued physical therapy on discharge, follow-up recommendations, appreciated -Patient reports goal is to return to home on discharge when appropriate and open to having Physical Therapy moving forward during examination today (02/28) -Cardiology consulted will see patient tomorrow and plan for transitioning to Oral regimen as well as provided discharge recommendations such as life vest, ischemic work-up likely to be performed outpatient during cardiology follow-up -Urology contacted and recommended to remove tello tomorrow morning, order placed, patient to follow-up with them outpatient Patient was seen, examined, and plans discussed with attending physician. Alber Nugent MD, Internal Medicine Resident, PGY-2 Primary Pulmonology Consult Service 02/28/2025 Cosigned by Ruth Kramer MD at 03/01/2025 5:02 PM EDT Associated attestation - Ruth Kramer MD - 03/01/2025 5:02 PM EDT Patient was seen and examined with the resident on the same date of service, I discussed the findings and therapeutic plan with the resident/fellow, I agree with the documentation, assessment and plan as above except for any edits/updates below. No acute events, HR better controlled H and H stable Heparin on hold Continue Amio/digoxin Lopresor added, GDMT if tolerated Repeat ECHO Ruth Kramer MD physician primary care sports medicine Pulmonary and critical care department [phone] * Katerin Sandoval CNP - 02/27/2025 8:31 AM EDT Images from the original note were not included. [facility] Vascular and Wound Surgery DAILY PROGRESS NOTE Subjective Patient seen and evaluated at bedside this morning. No acute events overnight. Hemoglobin has remained stable 8.2>8.6. Objective Vitals: Vitals: 02/27/25 0800 BP: Pulse: (!) 117 Resp: 24 Temp: SpO2: 98% I/O last 3 completed shifts: In: 3165.3 (28.5 mL/kg) [P.O.:750; I.V.:2162.3 (19.5 mL/kg); IV Piggyback:253] Out: 1963 (17.7 mL/kg) [Urine:1963 (0.5 mL/kg/hr)] Weight: 111 kg I/O this shift: In: 341.7 [P.O.:300; I.V.:41.7] Out: - Physical Exam Physical Exam Constitutional: Appearance: Normal appearance. HENT: Head: Normocephalic and atraumatic. Cardiovascular: Rate and Rhythm: Tachycardia present. Pulmonary: Effort: Pulmonary effort is normal. Breath sounds: Normal breath sounds. Abdominal: General: There is no distension. Palpations: Abdomen is soft. Tenderness: There is no abdominal tenderness. Skin: General: Skin is warm and dry. Neurological: General: No focal deficit present. Mental Status: He is alert and oriented to person, place, and time. Psychiatric: Mood and Affect: Mood normal. Behavior: Behavior normal. Labs: Results from last 7 days Lab Units 02/27/25 0558 02/26/25 2321 02/26/25 1818 02/26/25 1148 02/26/25 0513 WBC AUTO 10*3/uL 8.06 8.18 8.65 7.78 7.09 HEMOGLOBIN g/dL 8.2* 8.5* 8.5* 8.6* 7.9* HEMATOCRIT % 23.8* 24.6* 25.0* 24.6* 23.2* PLATELETS AUTO 10*3/uL 159 225 219 205 199 Results from last 7 days Lab Units 02/27/25 0558 02/26/25 0513 02/25/25 0506 02/24/25 0321 02/23/25 0533 SODIUM mmol/L 131* 133* 133* 135* 136 POTASSIUM mmol/L 4.1 3.9 4.1 4.1 4.5 CO2 mmol/L 24 BUN mg/dL 17 25 40* 52* 39* CREATININE mg/dL 0.64* 0.80 1.36* 2.43* 2.27* Results from last 7 days Lab Units 02/22/25 1149 INR 1.47* Medications: bisacodyl, 5 mg, oral, Daily [Held by provider] digoxin, 250 mcg, oral, Daily ferrous sulfate, 325 mg, oral, Daily with breakfast [Held by provider] furosemide, 40 mg, oral, q12h [Held by provider] metoprolol succinate XL, 100 mg, oral, 2 times daily metoprolol tartrate, 5 mg, intravenous, Once sodium chloride irrigation solution, 3,000 mL, irrigation, Continuous [Held by provider] spironolactone, 25 mg, oral, Daily tamsulosin, 0.4 mg, oral, Daily [Held by provider] valsartan, 80 mg, oral, Daily amiodarone, 0.5 mg/min, Last Rate: 0.5 mg/min (02/27/25 0830) norEPINEPHrine, 0.01-2 mcg/kg/min, Last Rate: Stopped (02/26/25 1800) Imaging: CTA Abdomen Pelvis W IV Contrast Narrative: CTA ABDOMEN/PELVIS HISTORY: Hematoma COMPARISON: 02/22/2025 TECHNIQUE: Multidetector CT angiogram through the abdomen and pelvis performed following the uncomplicated intravenous administration of 100 mL Omnipaque 350. 3-D maximum intensity projection reconstructions constructed under concurrent physician supervision on a independent workstation. 3-D images obtained to improve visualization of vascular detail. FINDINGS: Small left pleural effusion with adjacent atelectasis. Small pericardial effusion. Airspace opacities in the right lower lobe. Cholelithiasis. The liver, spleen, adrenal glands, pancreas, and kidneys are unremarkable. No enlarged abdominal or pelvic lymph nodes. Bladder decompressed by Tello catheter. Bilateral inferior rectus sheath hematomas (left larger than right) remain. Left-sided hematoma measures 9.0 x 5.7 cm (8.3 x 5.8 cm previously). A large hematoma just posterior to the rectus sheath hematomas in the extraperitoneal space of the pelvis measures 14.5 x 7.2 cm (previously 16.8 x 10.8 cm). There is hemorrhage extending into bilateral retroperitoneal regions (left greater than right), with the amount of this hemorrhage increased since previous study particularly on the left where largest component of hematoma measures 8.3 x 4.6 cm (series 4, image 108). Normal appendix. The small and large bowel are of normal caliber with no evidence of bowel wall thickening. Soft tissue edema in the lower abdomen. Postsurgical changes from previous partial bowel resections. No bowel dilatation. Intra-abdominal vascular structures enhance normally. 3D reformatted images confirm the source data findings. Impression: * Extensive hemorrhage/hematomas involving the inferior rectus sheath (left greater than right), extraperitoneal space of the pelvis, and retroperitoneum. The overall amount of hemorrhage has not significantly changed, though there has been some redistribution of hemorrhage with increase in amount within the lower retroperitoneal spaces (left greater than right) though slightly smaller amount of hemorrhage in the extraperitoneal space of the pelvis. * Unable to accurately comment on presence or absence of active arterial bleeding on this study due to lack of true arterial phase imaging. * Right lower lobe airspace opacities may represent pneumonia, aspiration possible. * Small left pleural effusion and small pericardial effusion. All CT scans at this facility use dose modulation, iterative reconstruction, and/or weight based dosing when appropriate to reduce radiation dose to as low as reasonably achievable. Electronically signed: Daniel Diaz MD. Active Inpatient Problems Principal Problem: Acute systolic CHF (congestive heart failure) (CMS/HCC) Active Problems: Primary hypertension ENA (obstructive sleep apnea) New onset a-fib (CMS/HCC) S/P gastric bypass Pericardial effusion Moderate mitral valve regurgitation Atrial fibrillation with RVR (CMS/HCC) A-fib (CMS/HCC) Hematoma Vascular/Wound Care Assessment/Plan Lindsay Pinto is a 59 y.o. male presenting with new onset afib with RVR and acute systolic CHF with EF of 15-20% now with bilateral inferior rectus sheath hematoma and zone 3 RP hematoma measuring 15.1 x 7.9 cm on the left and 5.8 x 2.7 cm on the right. Repeat CTA abdomen measures the left side hematoma as 9.0 x 5.7 cm and a hematoma posterior to the rectus sheath in the extraperitoneal space measuring 14.5 x 7.2 cm Hemoglobin has been stable . Last hgb at 11:48 today 8.6 Patient continues to have amiodarone gtt and has a minimal pressor requirement Patient hgb has been stable and does not require any vascular surgical intervention at this time. We will sign off and have him follow up in the office at discharge. Katerin Sandoval CNP Vascular/Wound Service Please direct primary wound calls to: [phone] Please direct primary vascular calls to: [phone] This note was created with the assistance of a speech-recognition program. While intending to generate a document that accurately reflects the content of the encounter, no guarantee can be provided that every mistake has been identified and corrected by editing ' * Marizol Brizuela DO - 02/27/2025 8:23 AM EDT Images from the original note were not included. Medical ICU Progress Note Patient - Lindsay Pinto Age - 59 y.[facility] 1965 [id number] Date of Admission - 02/18/2025 5:46 PM HPI/Hospital Course Lindsay Pinto is a 59 y.o. male with past medical history of HTN, ENA, HFrEF, and gastric bypass who presented to an OSH for constipation and bloating. He was found to have new onset a-fib and EF of15-20% dropped from 50-55%. Initial HPI from hospitalist note on 02/18: Lindsay Pinto is an 59 y.o. 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 Patient initially presenting to [place] with bloating and constipation. He states that for the past few weeks he has been having abdominal swelling, bloating. He states associated shortness of breath with exertion. He denies chest pain, nausea, vomiting. He does state mild fatigue. He had a CXR completed showing cardiomegaly with vascular congestion. CT of the abdomen was completed showing ascites and anasarca. Labs show a mild GILLIAN and an elevated BNP over 5000. EKG was completed showing A-fib with RVR which is new for the patient. He was given2 doses of digoxin due to borderline hypotension and given a dose of Xarelto. Echocardiogram was completed showing a newly dropped EF of 15 to 20% with moderate pulmonary hypertension, moderate mitral valve regurgitation and a small pericardial effusion. He was transferred [facility] for higher level of care. Patient does follow with cardiology outpatient for LVH. Per cardiology note, the echocardiogram performed on 05/14/2023 showed LVH with an improvement in EF to 50-55%. His latest echocardiogram did show a significant drop in EF. Cardiology is onboard inpatient for his new-onset atrial fibrillation with RVR. Patient was intially treated with a Cardizem drip; however, it was discontinue due to hypot ension. He has been treated with Toprol XL 100 mg BID and digoxin 250 mcg daily. He is scheduled for BERNARDINO and cardioversion today. CT abdomen and pelvis was performed yesterday for ongoing lower abdominal pain. It did reveal The right and left rectus abdominal muscles are abnormal and contain hematomas. The left is larger in size. Hemoglobin did drop from 15.4 to 14.0, but most recent hemoglobin this morning is 14.5 with a hematocrit of 42.9. MICU was consulted after a rapid response was called around 7 AM for hypotension with a BP of 53/38. He was seen and examined at bedside this morning. Blood pressure is now stable with the most recentpressure of 110/72. The patient is speaking in full sentences. He denies any CP or SOB. He also denies lightheadedness, dizziness, or nausea. He endorses continued abdominal pain that has been present for the past two days. He states that is started after he took a shower and felt tired, so he jumped on his bed. He then felt a sudden pain. He does endorse constipation. Last bowel movement was twodays ago. Patient had another episode of hypotension this morning with a recorded blood pressure of 52/34. Hewas given albumin and 250 cc lactated ringer and transferred to the MICU for hemodynamic instability. SUBJECTIVE Patient was seen and examined at bedside. He denies CP, SOB, or abdominal pain. He has been intermittently hypotensive, requiring pressors. He is on Levophed 0.02. He has not had a bowel movement since Saturday. He is passing gas. Consulting Service(s): Vascular surgery Urology Nephrology Hospital Course: 02/22: Heparin was dropped due to expanding hematomas in the bilateral inferior rectus sheath and new hematoma in the extraperitoneal space of the anterior pelvis seen on CT abdomen and pelvis. Hemoglobin dropped from 14.5 to 11.4. Vascular surgery was consulted and recommended monitoring hemoglobin. Urology was consulted for gross hematuria. No acute intervention at this time. Patient remains on an amiodarone drip. 02/23: Patient was started on Levophed. Renal function is worsening. Hemoglobin has stabilized at 10.9. No plans to cardiovert as patient is not on anticoagulation. 02/24: Patient is off pressors. Cardiology started digoxin 250 mcg q6 IV. Hemoglobin has been slowlydown trending, will continue to monitor. Nephrology consulted for worsening GILLIAN, likely secondary to ATN. 02/25: Levophed was restarted yesterday afternoon but was discontinued around 11 AM. Hemoglobin today has dropped to 7.7. CTA abdomen and pelvis with IV contrast again revealed hematomas involving theinferior rectus sheath, extraperitoneal space of the pelvis, and retroperitoneum with no significant change from previous. Patient received 1 unit RBCs with improvement of hemoglobin to 8.3. Digoxin held as patient is supratherapeutic. 02/26: Patient continues to intermittently require pressors. His renal function is improving. Plan to check iron panel and start iron. 02/27: Patient seen and examined at bedside, not requiring pressors, and improving general status. Okay to be transferred out of the ICU. OBJECTIVE Vitals height is 1.727 m (5' 7.99 ) and weight is 111 kg (244 lb 11.4 oz). His temporal temperature is 36.5 ??C (97.7 ??F). His blood pressure is 98/61 and his pulse is 109. His respiration is 24 and oxygensaturation is 100%. Temp: [36 ??C (96.8 ??F)-37.6 ??C (99.7 ??F)] 36.5 ??C (97.7 ??F) Heart Rate: [85-125] 109 Resp: [13-36] 24 Arterial Line BP 1: (88-121)/(44-108) 102/58 Physical Exam: Physical Exam Vitals and nursing note reviewed. Constitutional: General: He is not in acute distress. Appearance: Normal appearance. HENT: Head: Normocephalic and atraumatic. Eyes: Extraocular Movements: Extraocular movements intact. Conjunctiva/sclera: Conjunctivae normal. Cardiovascular: Rate and Rhythm: Normal rate. Rhythm irregularly irregular. Pulmonary: Effort: Pulmonary effort is normal. Breath sounds: Normal breath sounds. Abdominal: Palpations: Abdomen is soft. Tenderness: There is no abdominal tenderness. Musculoskeletal: General: Normal range of motion. Right lower leg: No edema. Left lower leg: No edema. Skin: General: Skin is warm and dry. Findings: No rash. Neurological: General: No focal deficit present. Mental Status: He is alert and oriented to person, place, and time. Weight: Admission weight: 118 kg (259 lb 12.8 oz) Wt Readings from Last 1 Encounters: 02/26/25 111 kg (244 lb 11.4 oz) Input/Output: Intake/Output Summary (Last 24 hours) at 02/27/2025 0824 Last data filed at 02/27/2025 0700 Gross per 24 hour Intake 1841.26 ml Output 1320 ml Net 521.26 ml Ventilator: Lab Results ABG: CBC: Results from last 7 days Lab Units 02/27/25 0558 02/26/25 2321 02/26/25 1818 WBC AUTO 10*3/uL 8.06 8.18 8.65 HEMOGLOBIN g/dL 8.2* 8.5* 8.5* HEMATOCRIT % 23.8* 24.6* 25.0* PLATELETS AUTO 10*3/uL 159 225 219 Coagulation: Results from last 7 days Lab Units 02/22/25 1149 02/21/25 0355 02/20/25 0939 APTT Seconds -- 117.9* 169.6* INR 1.47* -- -- Metabolic Panel: Results from last 7 days Lab Units 02/27/25 0558 02/26/25 0513 02/25/25 0506 SODIUM mmol/L 131* 133* 133* POTASSIUM mmol/L 4.1 3.9 4.1 CHLORIDE mmol/L 102 103 99 CO2 mmol/L 25 27 29 BUN mg/dL 17 25 40* CREATININE mg/dL 0.64* 0.80 1.36* GLUCOSE mg/dL 100 94 102* CALCIUM mg/dL 7.8* 7.9* 8.1* MAGNESIUM mg/dL 2.1 2.2 2.3 Liver Panel: Results from last 7 days Lab Units 02/27/25 0558 02/26/25 0513 02/25/25 0506 ALBUMIN g/dL 2.9* 2.9* 3.1* BILIRUBIN TOTAL mg/dL 3.4* 3.5* 2.8* ALT U/L 21 24 27 AST U/L 16 16 19 ALK PHOS U/L 54 54 54 Glucose: Hgb A1c: Cardiac: No lab exists for component: TROPI , TROPONIN Anemia Labs: Results from last 7 days Lab Units 02/26/25 0513 VITAMIN B 12 pg/mL 1,129* FOLATE ng/mL 17.66 FERRITIN ng/mL 234.0 IRON ug/dL 20* TIBC ug/dL 227* IRON SATURATION % 9* Lipid Panel: No lab exists for component: CHOLHDL Urine Labs: Lab Results Component Value Date WBCU 21-50 (A) 02/24/2025 UROBILINOGEN Normal 02/24/2025 Additional Labs: No lab exists for component: LACTICACID , PROCALCITON Radiology CTA Abdomen Pelvis W IV Contrast Narrative: CTA ABDOMEN/PELVIS HISTORY: Hematoma COMPARISON: 02/22/2025 TECHNIQUE: Multidetector CT angiogram through the abdomen and pelvis performed following the uncomplicated intravenous administration of 100 mL Omnipaque 350. 3-D maximum intensity projection reconstructions constructed under concurrent physician supervision on a independent workstation. 3-D images obtained to improve visualization of vascular detail. FINDINGS: Small left pleural effusion with adjacent atelectasis. Small pericardial effusion. Airspace opacities in the right lower lobe. Cholelithiasis. The liver, spleen, adrenal glands, pancreas, and kidneys are unremarkable. No enlarged abdominal or pelvic lymph nodes. Bladder decompressed by Tello catheter. Bilateral inferior rectus sheath hematomas (left larger than right) remain. Left-sided hematoma measures 9.0 x 5.7 cm (8.3 x 5.8 cm previously). A large hematoma just posterior to the rectus sheath hematomas in the extraperitoneal space of the pelvis measures 14.5 x 7.2 cm (previously 16.8 x 10.8 cm). There is hemorrhage extending into bilateral retroperitoneal regions (left greater than right), with the amount of this hemorrhage increased since previous study particularly on the left where largest component of hematoma measures 8.3 x 4.6 cm (series 4, image 108). Normal appendix. The small and large bowel are of normal caliber with no evidence of bowel wall thickening. Soft tissue edema in the lower abdomen. Postsurgical changes from previous partial bowel resections. No bowel dilatation. Intra-abdominal vascular structures enhance normally. 3D reformatted images confirm the source data findings. Impression: * Extensive hemorrhage/hematomas involving the inferior rectus sheath (left greater than right), extraperitoneal space of the pelvis, and retroperitoneum. The overall amount of hemorrhage has not significantly changed, though there has been some redistribution of hemorrhage with increase in amount within the lower retroperitoneal spaces (left greater than right) though slightly smaller amount of hemorrhage in the extraperitoneal space of the pelvis. * Unable to accurately comment on presence or absence of active arterial bleeding on this study due to lack of true arterial phase imaging. * Right lower lobe airspace opacities may represent pneumonia, aspiration possible. * Small left pleural effusion and small pericardial effusion. All CT scans at this facility use dose modulation, iterative reconstruction, and/or weight based dosing when appropriate to reduce radiation dose to as low as reasonably achievable. Electronically signed: Daniel Diaz MD. Cultures Lab Results Component Value Date BLOOD CULTURE No growth at 3 days 02/23/2025 Medications Scheduled: bisacodyl, 5 mg, oral, Daily [Held by provider] digoxin, 250 mcg, oral, Daily ferrous sulfate, 325 mg, oral, Daily with breakfast [Held by provider] furosemide, 40 mg, oral, q12h [Held by provider] metoprolol succinate XL, 100 mg, oral, 2 times daily metoprolol tartrate, 5 mg, intravenous, Once sodium chloride irrigation solution, 3,000 mL, irrigation, Continuous [Held by provider] spironolactone, 25 mg, oral, Daily tamsulosin, 0.4 mg, oral, Daily [Held by provider] valsartan, 80 mg, oral, Daily Infusions: amiodarone, 0.5 mg/min, Last Rate: 0.5 mg/min (02/27/25 0700) norEPINEPHrine, 0.01-2 mcg/kg/min, Last Rate: Stopped (02/26/25 1800) As Needed: PRN medications: acetaminophen, diphenhydrAMINE, HYDROcodone-acetaminophen, HYDROmorphone, melatonin, sennosides-docusate sodium, Insert peripheral IV AND Saline lock IV AND sodium chloride Assessment & Plan Circulatory shock due to a-fib and acute blood loss A-line and CVC are in place. Levophed as needed for MAP goal > 65 Monitor hemodynamic stability. Transfuse for hemoglobin <8. S/p 1 unit RBCs 02/25 Will order iron and TIBC, ferritin, vitamin B12, folate, and reticulocyte panel. Plan to give oral ferrous sulfate 325 mg. New-onset A-fib with RVR with left bundle branch block S/p Cardizem drip discontinued due to hypotension Heparin infusion since 02/18-02/22, stopped due to hematoma Continue to hold anticoagulation Hold GDMT. No plan for cardioversion as patient is not on anticoagulation at this time. Continue amiodarone infusion. S/p digoxin 02/24. Hold digoxin for now, per cardiology. [id number] score of 2. Cardiology signing off Poor candidate for BERNARDINO/cardioversion currently due to bleed. Vascular surgery consulted, recommend conservative management Will follow patient peripherally Acute decompensated systolic heart failure, EF of 15% Cardiology will plan for ischemic work-up once rhythm is normalized Holding GDMT due to hypotension GILLIAN likely prerenal secondary to atrial fibrillation and hypovolemia Creatinine has normalized from peak of 2.43. Urine studies performed Calculated FENa is 0.2% Low urine sodium and high urine potassium, high urine osmolality (686) Renal ultrasound minimal prominence of the right renal pelvis without calyceal dilatation Monitor I/Os, trend creatinine Continue normal saline at 75 ml/h Nephrology signed off. No acute CVVHD at this time Gross hematuria S/p CBI 02/23 Monitor urine output Urology on board, appreciate recommendations Bilateral rectus sheath hematoma larger on left, in the setting of anticoagulation Trend H and H q6, given CT findings of hematoma. Hemoglobin is slowly trending down 14.5 -> 11.4 -> 10.4 -> 9.0 -> 7.7, improved to 8.3 s/p 1 unit RBC transfusion -> 7.9 Transfuse Hgb < 8. Vascular surgery on board, appreciate recommendations Leukocytosis, improved Lactate on 02/22 was 2.2, repeat decreased to 1.8 Peripheral blood cultures x2 02/22, NGTD Peripheral blood cultures x2 02/23, NGTD Will follow Jaundice with hyperbilirubinemia, improving Total bilirubin trending down from 4.8. Total bilirubin 2.4 5 years ago LFTs within normal limits HTN ENA Obesity s/p gastric bypass surgery Constipation No bowel movement since 02/23 Will start on Dulcolax DVT prophylaxis: None GI prophylaxis: None Lines: Peripheral IV, arterial line left brachial, CVC left IJ Diet: NPO Fluids: Normal saline at 75 ml/h Code status: Full Marizol Brizuela DO Internal Medicine Resident, PGY-2 [facility] 8:24 AM 02/27/25 This note was completed using a voice bottle inspector system. Every effort was made to ensure accuracy. However, inadvertent computerized bottle inspector errors may be present. Cosigned by Ruth Kramer MD at 02/28/2025 4:53 PM EDT Associated attestation - Ruth Kramer MD - 02/28/2025 4:53 PM EDT Patient was seen and examined with the resident on the same date of service, I discussed the findings and therapeutic plan with the resident/fellow, I agree with the documentation, assessment and plan as above except for any edits/updates below. Acute HFrEF EF 10 to 15%, cardiology following, repeat 2D echo, consider ischemic workup, GDMT on hold due to hypotension persistent A-fib with RVR, on Amiodarone GILLIAN, creatinine is better Acute blood loss anemia secondary to pelvic hematoma, H and H stable, continue to hold anticoagulation, conservative management per vascular Ok to transfer to step down Ruth Kramer MD physician primary care sports medicine Pulmonary and critical care department [phone] * Felipa Amelia, SUPERVISOR PHOSPHATIC FERTILIZER - 02/26/2025 3:10 PM EDT Physical Therapy Physical Therapy Treatment Patient Name: Lindsay Pnito : 1965 Today's Date: 02/26/2025 Problem List[1] Start Time: 1509 Stop Time: 1534 Time Calculation (min): 24 min PT Therapeutic Procedures Time Entry Gait Training Time Entry: 18 Objective General Visit Information: PT Last Visit PT Received On: 02/26/25 General Subjective: I sat up in the chair for 3 hours earlier. I don't want to sit in the chair. Patient agreeable to participate in physical therapy session at this time. Vision - Basic Vision - Basic Assessment Current Vision: Wears glasses all the time Precautions Precautions Medical Precautions: arterial line, fall risk, IV, tello, telemetry Pain Pain Assessment Pain Assessment: No/denies pain Pain Score: 0 - No pain Cognition Cognition Overall Cognitive Status: Within Functional Limits Arousal/Alertness: Appropriate responses to stimuli Orientation Level: Oriented X4 Following Commands: Follows all commands and directions without difficulty General Assessment General Assessment Hearing: WFL Static Sitting Balance Static Sitting Balance Static Sitting-Balance Support: No upper extremity supported Static Sitting-Level of Assistance: Distant supervision Static Sitting-Comment/Number of Minutes: Patient sat unsupported at EOB without UE support and no LOB. Static Standing Balance Static Standing Balance Static Standing-Balance Support: No upper extremity supported Static Standing-Level of Assistance: Contact guard, Close supervision Static Standing-Comment/Number of Minutes: SBA to CGA to optimize safety with standing General Assessments: Activity Tolerance Endurance: Stage II Stage II (METs 1.4-2.0) - Sittin-10 mins Cognition Overall Cognitive Status: Within Functional Limits Arousal/Alertness: Appropriate responses to stimuli Orientation Level: Oriented X4 Following Commands: Follows all commands and directions without difficulty Treatment: Gait Training Gait Training Time Entry: 18 Ambulation 1 Surface 1: Level tile Device 1: Rolling walker Assistance 1: Contact guard Quality of Gait 1: Patient demonstrated decreased gait speed and cues provided for navigating throughout obstacles and managing lines. Comments/Distance (ft) 1: 50ft x1 Bed Mobility 1 Bed Mobility From 1: Supine Bed Mobility Type 1: To and from Bed Mobility to 1: Short sit Level of Assistance 1: Close supervision Bed Mobility Comments 1: HOB raised and cues provided for line management Transfer 1 Transfer From 1: Bed Transfer Type 1: To and from Transfer to 1: Chair with arms Technique 1: Sit to stand, Stand to sit Transfer Device 1: rolling walker Transfer Level of Assistance 1: Contact guard Trials/Comments 1: CGA for safety and cues for proper UE placement to facilitate ease of transfers Other Activity Other Activity 1: Patient returned to supine in bed with call light and needs within reach at end of session. Nursing notified. Outcome Assessments 6 Clicks (Mobility) Help from another person turning from your back to your side while in a flat bed without using bedrails: None Help from another person moving from lying on your back to sitting on the side of a flat bed without using bedrails: A little Help from another person moving to and from a bed to a chair (including a wheelchair): A little Help from another person standing up from a chair using your arms (e.g. wheelchair or bedside chair): A little Help from another person to walk in hospital room: A little Help from another person climbing 3-5 steps with a railing: A lot Mobility 6 Clicks T-Score: 18 Assessment/Plan PT Assessment PT Assessment/SUPERVISOR PHOSPHATIC FERTILIZER Summary: Patient demonstrated improvements with functional mobility this date. Patient ambulated 40ft with RW and CGA for safety with ambulation. Verbal cues provided for sequencingand line management throughout functional transfers and mobility. Patient remains limited with functional mobility due to medical complexities and can benefit from continued physical therapy to promote strength and endurance to facilitate ease of functional mobility. Prognosis: Good Evaluation/Treatment Tolerance: Treatment limited secondary to medical complications (Comment) Medical Staff Made Aware: Yes Plan Level of assist: 1 assist Treatment/Interventions: Functional transfer training, LE strengthening/ROM, Endurance training, Bed mobility, Gait training, Equipment eval/education, Patient/family training, Balance training PT Plan: Skilled PT PT Frequency: 4 times per week PT Discharge Recommendations: Patient is able to return to prior living environment, Home PT PT - Discharge Recommendations Placed: Yes Goals: Multi-Disciplinary Problems (from Physical Therapy) Active Problems Problem: Balance Start Date: 02/25/25 Goal Start Date Expected End Date End Date LTG - Patient will maintain standing and sitting balance to allow for completion of daily activities 02/25/25 03/11/25 -- Problem: Mobility Start Date: 02/25/25 Goal Start Date Expected End Date End Date LTG - Patient will ambulate at least 50 feet as medically appropriate with stand-by/contact guard using least restrictive assistive device 02/25/25 03/11/25 -- Goal Start Date Expected End Date End Date LTG - As pt's medical stability improves, he will navigate at least 8 steps with stand-by/contact guard using device as appropriate 02/25/25 03/11/25 -- Problem: Transfers Start Date: 02/25/25 Goal Start Date Expected End Date End Date STG - Transfer from bed to chair with SBA using least restrictive assistive device 02/25/25 03/11/25 -- Goal Start Date Expected End Date End Date STG - Patient to transfer to and from sit to supine with no assistance from flat HOB 02/25/25 03/11/25 -- Goal Start Date Expected End Date End Date STG - Patient will transfer sit to and from stand with SBA using least restrictive assistive [id number]/28/25 03/11/25 -- Problem: PT Misc Start Date: 02/25/25 Goal Start Date Expected End Date End Date LTG - Pt will tolerate 30+ minute session with minimal rest breaks and vitals remaining in normal limits for improvements in endurance. 02/25/25 03/11/25 -- Felipa Cisneros, GEMMA [1] Patient Active Problem List Diagnosis Gout Primary hypertension Obesity ENA (obstructive sleep apnea) Ascending aorta dilatation Acute systolic CHF (congestive heart failure) ([facility]/HCC) New onset a-fib (CMS/HCC) S/P gastric bypass Pericardial effusion Moderate mitral valve regurgitation Atrial fibrillation with RVR ([facility]/HCC) A-fib ([facility]) Hematoma Cosigned by Canelo Mendieta, PT at 03/02/2025 3:42 PM EDT * Marizol Brizuela, DO - 02/26/2025 2:28 PM EDT Images from the original note were not included. Medical ICU Progress Note Patient - Lindsay Pinto Age - 59 y[facility] 1965 [id number] Date of Admission - 02/18/2025 5:46 PM HPI/Hospital Course Lindsay Pinto is a 59 y.o. male with past medical history of HTN, ENA, HFrEF, and gastric bypass who presented to an OSH for constipation and bloating. He was found to have new onset a-fib and EF of15-20% dropped from 50-55%. Initial HPI from hospitalist note on 02/18: Lindsay Pinto is an 59 y.o. 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 Patient initially presenting to [place] with bloating and constipation. He states that for the past few weeks he has been having abdominal swelling, bloating. He states associated shortness of breath with exertion. He denies chest pain, nausea, vomiting. He does state mild fatigue. He had a CXR completed showing cardiomegaly with vascular congestion. CT of the abdomen was completed showing ascites and anasarca. Labs show a mild GILLIAN and an elevated BNP over 5000. EKG was completed showing A-fib with RVR which is new for the patient. He was given2 doses of digoxin due to borderline hypotension and given a dose of Xarelto. Echocardiogram was completed showing a newly dropped EF of 15 to 20% with moderate pulmonary hypertension, moderate mitral valve regurgitation and a small pericardial effusion. He was transferred [facility] for higher level of care. Patient does follow with cardiology outpatient for LVH. Per cardiology note, the echocardiogram performed on 05/14/2023 showed LVH with an improvement in EF to 50-55%. His latest echocardiogram did show a significant drop in EF. Cardiology is onboard inpatient for his new-onset atrial fibrillation with RVR. Patient was intially treated with a Cardizem drip; however, it was discontinue due to hypot ension. He has been treated with Toprol XL 100 mg BID and digoxin 250 mcg daily. He is scheduled for BERNARDINO and cardioversion today. CT abdomen and pelvis was performed yesterday for ongoing lower abdominal pain. It did reveal The right and left rectus abdominal muscles are abnormal and contain hematomas. The left is larger in size. Hemoglobin did drop from 15.4 to 14.0, but most recent hemoglobin this morning is 14.5 with a hematocrit of 42.9. MICU was consulted after a rapid response was called around 7 AM for hypotension with a BP of 53/38. He was seen and examined at bedside this morning. Blood pressure is now stable with the most recentpressure of 110/72. The patient is speaking in full sentences. He denies any CP or SOB. He also denies lightheadedness, dizziness, or nausea. He endorses continued abdominal pain that has been present for the past two days. He states that is started after he took a shower and felt tired, so he jumped on his bed. He then felt a sudden pain. He does endorse constipation. Last bowel movement was twodays ago. Patient had another episode of hypotension this morning with a recorded blood pressure of 52/34. Hewas given albumin and 250 cc lactated ringer and transferred to the MICU for hemodynamic instability. SUBJECTIVE Patient was seen and examined at bedside. He denies CP, SOB, or abdominal pain. He has been intermittently hypotensive, requiring pressors. He is on Levophed 0.02. He has not had a bowel movement since Saturday. He is passing gas. Consulting Service(s): Vascular surgery Urology Nephrology Hospital Course: 02/22: Heparin was dropped due to expanding hematomas in the bilateral inferior rectus sheath and new hematoma in the extraperitoneal space of the anterior pelvis seen on CT abdomen and pelvis. Hemoglobin dropped from 14.5 to 11.4. Vascular surgery was consulted and recommended monitoring hemoglobin. Urology was consulted for gross hematuria. No acute intervention at this time. Patient remains on an amiodarone drip. 02/23: Patient was started on Levophed. Renal function is worsening. Hemoglobin has stabilized at 10.9. No plans to cardiovert as patient is not on anticoagulation. 02/24: Patient is off pressors. Cardiology started digoxin 250 mcg q6 IV. Hemoglobin has been slowlydown trending, will continue to monitor. Nephrology consulted for worsening GILLIAN, likely secondary to ATN. 02/25: Levophed was restarted yesterday afternoon but was discontinued around 11 AM. Hemoglobin today has dropped to 7.7. CTA abdomen and pelvis with IV contrast again revealed hematomas involving theinferior rectus sheath, extraperitoneal space of the pelvis, and retroperitoneum with no significant change from previous. Patient received 1 unit RBCs with improvement of hemoglobin to 8.3. Digoxin held as patient is supratherapeutic. 02/26: Patient continues to intermittently require pressors. His renal function is improving. Plan to check iron panel and start iron. OBJECTIVE Vitals height is 1.727 m (5' 7.99 ) and weight is 111 kg (244 lb 0.8 oz). His temporal temperature is 36.3??C (97.3 ??F). His blood pressure is 98/61 and his pulse is 92. His respiration is 24 and oxygen saturation is 99%. Temp: [36.3 ??C (97.3 ??F)-36.7 ??C (98.1 ??F)] 36.3 ??C (97.3 ??F) Heart Rate: [74-113] 92 Resp: [12-29] 24 Arterial Line BP 1: (88-121)/(43-69) 88/44 Physical Exam: Physical Exam Vitals and nursing note reviewed. Constitutional: General: He is not in acute distress. Appearance: Normal appearance. HENT: Head: Normocephalic and atraumatic. Eyes: Extraocular Movements: Extraocular movements intact. Conjunctiva/sclera: Conjunctivae normal. Cardiovascular: Rate and Rhythm: Normal rate. Rhythm irregularly irregular. Pulmonary: Effort: Pulmonary effort is normal. Breath sounds: Normal breath sounds. Abdominal: Palpations: Abdomen is soft. Tenderness: There is no abdominal tenderness. Musculoskeletal: General: Normal range of motion. Right lower leg: No edema. Left lower leg: No edema. Skin: General: Skin is warm and dry. Findings: No rash. Neurological: General: No focal deficit present. Mental Status: He is alert and oriented to person, place, and time. Weight: Admission weight: 118 kg (259 lb 12.8 oz) Wt Readings from Last 1 Encounters: 02/26/25 111 kg (244 lb 0.8 oz) Input/Output: Intake/Output Summary (Last 24 hours) at 02/26/2025 1428 Last data filed at 02/26/2025 0801 Gross per 24 hour Intake 1734.53 ml Output 868 ml Net 866.53 ml Ventilator: Lab Results ABG: CBC: Results from last 7 days Lab Units 02/26/25 1148 02/26/25 0513 02/25/25 2356 WBC AUTO 10*3/uL 7.78 7.09 7.74 HEMOGLOBIN g/dL 8.6* 7.9* 8.1* HEMATOCRIT % 24.6* 23.2* 23.3* PLATELETS AUTO 10*3/uL 205 199 180 Coagulation: Results from last 7 days Lab Units 02/22/25 1149 02/21/25 0355 02/20/25 0939 APTT Seconds -- 117.9* 169.6* INR 1.47* -- -- Metabolic Panel: Results from last 7 days Lab Units 02/26/25 0513 02/25/25 0506 02/24/25 0321 SODIUM mmol/L 133* 133* 135* POTASSIUM mmol/L 3.9 4.1 4.1 CHLORIDE mmol/L 103 99 99 CO2 mmol/L 27 29 28 BUN mg/dL 25 40* 52* CREATININE mg/dL 0.80 1.36* 2.43* GLUCOSE mg/dL 94 102* 104* CALCIUM mg/dL 7.9* 8.1* 8.5* MAGNESIUM mg/dL 2.2 2.3 2.1 Liver Panel: Results from last 7 days Lab Units 02/26/25 0513 02/25/25 0506 02/24/25 0321 ALBUMIN g/dL 2.9* 3.1* 3.3* BILIRUBIN TOTAL mg/dL 3.5* 2.8* 3.0* ALT U/L 24 27 32 AST U/L 16 19 24 ALK PHOS U/L 54 54 58 Glucose: Hgb A1c: Cardiac: No lab exists for component: TROPI , TROPONIN Anemia Labs: Results from last 7 days Lab Units 02/26/25 0513 VITAMIN B 12 pg/mL 1,129* FOLATE ng/mL 17.66 FERRITIN ng/mL 234.0 IRON ug/dL 20* TIBC ug/dL 227* IRON SATURATION % 9* Lipid Panel: No lab exists for component: CHOLHDL Urine Labs: Lab Results Component Value Date WBCU 21-50 (A) 02/24/2025 UROBILINOGEN Normal 02/24/2025 Additional Labs: No lab exists for component: LACTICACID , PROCALCITON Radiology CTA Abdomen Pelvis W IV Contrast Narrative: CTA ABDOMEN/PELVIS HISTORY: Hematoma COMPARISON: 02/22/2025 TECHNIQUE: Multidetector CT angiogram through the abdomen and pelvis performed following the uncomplicated intravenous administration of 100 mL Omnipaque 350. 3-D maximum intensity projection reconstructions constructed under concurrent physician supervision on a independent workstation. 3-D images obtained to improve visualization of vascular detail. FINDINGS: Small left pleural effusion with adjacent atelectasis. Small pericardial effusion. Airspace opacities in the right lower lobe. Cholelithiasis. The liver, spleen, adrenal glands, pancreas, and kidneys are unremarkable. No enlarged abdominal or pelvic lymph nodes. Bladder decompressed by Tello catheter. Bilateral inferior rectus sheath hematomas (left larger than right) remain. Left-sided hematoma measures 9.0 x 5.7 cm (8.3 x 5.8 cm previously). A large hematoma just posterior to the rectus sheath hematomas in the extraperitoneal space of the pelvis measures 14.5 x 7.2 cm (previously 16.8 x 10.8 cm). There is hemorrhage extending into bilateral retroperitoneal regions (left greater than right), with the amount of this hemorrhage increased since previous study particularly on the left where largest component of hematoma measures 8.3 x 4.6 cm (series 4, image 108). Normal appendix. The small and large bowel are of normal caliber with no evidence of bowel wall thickening. Soft tissue edema in the lower abdomen. Postsurgical changes from previous partial bowel resections. No bowel dilatation. Intra-abdominal vascular structures enhance normally. 3D reformatted images confirm the source data findings. Impression: * Extensive hemorrhage/hematomas involving the inferior rectus sheath (left greater than right), extraperitoneal space of the pelvis, and retroperitoneum. The overall amount of hemorrhage has not significantly changed, though there has been some redistribution of hemorrhage with increase in amount within the lower retroperitoneal spaces (left greater than right) though slightly smaller amount of hemorrhage in the extraperitoneal space of the pelvis. * Unable to accurately comment on presence or absence of active arterial bleeding on this study due to lack of true arterial phase imaging. * Right lower lobe airspace opacities may represent pneumonia, aspiration possible. * Small left pleural effusion and small pericardial effusion. All CT scans at this facility use dose modulation, iterative reconstruction, and/or weight based dosing when appropriate to reduce radiation dose to as low as reasonably achievable. Electronically signed: Daniel Diaz MD. Cultures Lab Results Component Value Date BLOOD CULTURE No growth at 3 days 02/23/2025 Medications Scheduled: bisacodyl, 5 mg, oral, Daily [Held by provider] digoxin, 250 mcg, oral, Daily [START ON 02/27/2025] ferrous sulfate, 325 mg, oral, Daily with breakfast [Held by provider] furosemide, 40 mg, oral, q12h [Held by provider] metoprolol succinate XL, 100 mg, oral, 2 times daily metoprolol tartrate, 5 mg, intravenous, Once potassium phosphates 9 mmol in dextrose 5 % 250 mL infusion, 9 mmol, intravenous, Once sodium chloride irrigation solution, 3,000 mL, irrigation, Continuous [Held by provider] spironolactone, 25 mg, oral, Daily tamsulosin, 0.4 mg, oral, Daily [Held by provider] valsartan, 80 mg, oral, Daily Infusions: amiodarone, 0.5 mg/min, Last Rate: 0.5 mg/min (02/26/25 1038) norEPINEPHrine, 0.01-2 mcg/kg/min, Last Rate: 0.02 mcg/kg/min (02/26/25 1115) As Needed: PRN medications: acetaminophen, diphenhydrAMINE, HYDROcodone-acetaminophen, HYDROmorphone, melatonin, sennosides-docusate sodium, Insert peripheral IV AND Saline lock IV AND sodium chloride Assessment & Plan Circulatory shock due to a-fib and acute blood loss A-line and CVC are in place. Levophed as needed for MAP goal > 65 Monitor hemodynamic stability. Transfuse for hemoglobin <8. S/p 1 unit RBCs 02/25 Will order iron and TIBC, ferritin, vitamin B12, folate, and reticulocyte panel. Plan to give oral ferrous sulfate 325 mg. New-onset A-fib with RVR with left bundle branch block S/p Cardizem drip discontinued due to hypotension Heparin infusion since 02/18-02/22, stopped due to hematoma Continue to hold anticoagulation Hold GDMT. No plan for cardioversion as patient is not on anticoagulation at this time. Continue amiodarone infusion. S/p digoxin 02/24. Hold digoxin for now, per cardiology. [id number] score of 2. Cardiology signing off Poor candidate for BERNARDINO/cardioversion currently due to bleed. Vascular surgery consulted, recommend conservative management Will follow patient peripherally Acute decompensated systolic heart failure, EF of 15% Cardiology will plan for ischemic work-up once rhythm is normalized Holding GDMT due to hypotension GILLIAN likely prerenal secondary to atrial fibrillation and hypovolemia Creatinine has normalized from peak of 2.43. Urine studies performed Calculated FENa is 0.2% Low urine sodium and high urine potassium, high urine osmolality (686) Renal ultrasound minimal prominence of the right renal pelvis without calyceal dilatation Monitor I/Os, trend creatinine Continue normal saline at 75 ml/h Nephrology signed off. No acute CVVHD at this time Gross hematuria S/p CBI 02/23 Monitor urine output Urology on board, appreciate recommendations Bilateral rectus sheath hematoma larger on left, in the setting of anticoagulation Trend H and H q6, given CT findings of hematoma. Hemoglobin is slowly trending down 14.5 -> 11.4 -> 10.4 -> 9.0 -> 7.7, improved to 8.3 s/p 1 unit RBC transfusion -> 7.9 Transfuse Hgb < 8. Vascular surgery on board, appreciate recommendations Leukocytosis, improved Lactate on 02/22 was 2.2, repeat decreased to 1.8 Peripheral blood cultures x2 02/22, no growth to date Peripheral blood cultures x2 02/23, no growth to date Will follow Jaundice with hyperbilirubinemia Total bilirubin trending down from 4.8. Total bilirubin 2.4 5 years ago LFTs within normal limits HTN ENA Obesity s/p gastric bypass surgery Constipation No bowel movement since 02/23 Will start on Dulcolax DVT prophylaxis: None GI prophylaxis: None Lines: Peripheral IV, arterial line left brachial, CVC left IJ Diet: NPO Fluids: Normal saline at 75 ml/h Code status: Full Summer [place]rea[place], MS4 [facility] Marizol Brizuela DO Internal Medicine Resident, PGY-2 [facility] 2:28 PM 02/26/25 This note was completed using a voice bottle inspector system. Every effort was made to ensure accuracy. However, inadvertent computerized bottle inspector errors may be present. Cosigned by Ruth Kramer MD at 02/27/2025 6:36 PM EDT Associated attestation - Ruth Kramer MD - 02/27/2025 6:36 PM EDT Patient was seen and examined with the resident on the same date of service, I discussed the findings and therapeutic plan with the resident/fellow, I agree with the documentation, assessment and plan as above except for any edits/updates below. Acute HFrEF EF 10 to 15%, cardiology following, repeat 2D echo, consider ischemic workup, GDMT on hold due to hypotension persistent A-fib with RVR, on Amiodarone GILLIAN, creatinine is better Acute blood loss anemia secondary to pelvic hematoma, H and H stable, continue to hold anticoagulation Ruth Kramer MD physician primary care sports medicine Pulmonary and critical care department [id number] * MARJORIE Landry - 02/26/2025 10:10 AM EDT Occupational Therapy Occupational Therapy Treatment Patient Name: Lindsay Pinto : 1965 Today's Date: 02/26/2025 02/26/25 1010 Time Calculation Start Time 1010 Stop Time 1035 Time Calculation (min) 25 min Problem List Problem List[1] Treatment: 02/26/25 1010 OT Last Visit OT Received On 02/26/25 General Subjective Pt pleasant and agreeable to self care session. Family/Caregiver Present No Precautions Medical Precautions arterial line;fall risk;IV;tello;telemetry Pain Assessment Pain Assessment No/denies pain Cognition Overall Cognitive Status WFL Orientation Level Oriented X4 General Assessment Hearing WFL Grooming Grooming Level of Assistance Setup Grooming Where Assessed Edge of bed Grooming Comments oral hygiene UE Bathing UE Bathing Level of Assistance Setup UE Bathing Where Assessed Edge of bed UE Bathing Comments 100% UBB UE Dressing UE Dressing Level of Assistance Setup UE Dressing Where Assessed Edge of bed UE Dressing Comments to odff/don gown/s LE Dressing LE Dressing No Functional Standing Tolerance Time untimed Activity bed<>chair Functional Standing Tolerance Comments no device needed Static Sitting Balance Static Sitting-Balance Support No upper extremity supported;Feet supported Static Sitting-Level of Assistance Distant supervision Dynamic Sitting Balance Dynamic Sitting-Balance Support No upper extremity supported;Feet supported Dynamic Sitting-Balance Forward lean;Reaching for objects;Reaching across midline;Trunk control activities Dynamic Sitting Balance-Level of Assistance Close supervision Static Standing Balance Static Standing-Balance Support No upper extremity supported Static Standing-Level of Assistance Contact guard Static Standing-Comment/Number of Minutes CGA for safety, no LOB Dynamic Standing Balance Dynamic Standing-Balance Support No upper extremity supported Dynamic Standing-Balance Forward lean;Reaching for objects Dynamic Standing Balance-Level of Assistance Contact guard Bed Mobility Bed Mobility Yes Bed Mobility 1 Bed Mobility From 1 Supine Bed Mobility Type 1 To Bed Mobility to 1 Short sit Level of Assistance 1 Close supervision Transfers Transfer Yes Transfer 1 Transfer From 1 Sit;Bed Transfer Type 1 To and from Transfer to 1 Stand;Chair with arms Technique 1 Sit to stand;Stand to sit Transfer Level of Assistance 1 Contact guard Trials/Comments 1 CGA for safety Activity Tolerance Endurance Stage II Activity Tolerance Comments Pt tolerates short, self care session w/ no adverse effects Other Activity Other Activity 1 Pt left in bedside chair with call light and needs accessible. OT Assessment OT Impairments Decreased ADL status;Decreased safe judgment during ADL;Decreased endurance;Decreased functional mobility;Decreased IADLs;Decreased trunk control for functional activities OT Assessment/RETAIL EVENT ASSISTANT Summary Pt would benefit from continued skilled therapy to promote increased safety, activity tolerance and ease. OT Education/Comments bed mob, activity promotion Plan Level of assist 1 assist Treatment Interventions ADL retraining;Functional transfer training;Endurance training;Patient/family training;Neuromuscular reeducation;Compensatory technique education OT Plan Skilled OT OT Frequency 5 times per week OT Discharge Recommendations Patient is able to return to prior living environment OT - Discharge Recommendations Placed Yes Outcome Assessments 02/26/25 1300 AM-PAC 6 Clicks Putting on and taking off regular lower body clothing? 2 Bathing(Including washing,rinsing,drying)? 3 Toileting, which includes using the toilet,bedpan,or urinal? 3 Putting on and taking off regular upper body clothing? 3 Taking care of personal grooming such as brushing teeth? 3 Eating meals? 4 Total Score OT [facility] 18 OT Goals: Multi-Disciplinary Problems (from Occupational Therapy) Active Problems Problem: Bathing Start Date: 02/25/25 Goal Start Date Expected End Date End Date LTG - Patient will utilize adaptive techniques to bathe body with stand- by/contact guard 02/25/25 03/11/25 -- Problem: Dressings Lower Extremities Start Date: 02/25/25 Goal Start Date Expected End Date End Date LTG - Patient will dress lower body with stand-by/contact guard 02/25/25 03/11/25 -- Problem: Dressing Upper Extremities Start Date: 02/25/25 Goal Start Date Expected End Date End Date LTG - Patient will complete upper body dressing with no assistance 02/25/25 03/11/25 -- Problem: Grooming Start Date: 02/25/25 Goal Start Date Expected End Date End Date STG - Patient will tolerate standing sink side to complete grooming with no assistance 02/25/25 03/11/25 -- Problem: Toileting Start Date: 02/25/25 Goal Start Date Expected End Date End Date LTG - Patient will utilize adaptive techniques/equipment to complete daily toileting tasks with no assistance 02/25/25 03/11/25 -- Problem: [facility] Start Date: 02/25/25 Goal Start Date Expected End Date End Date Pt will demo increased activity tolerance by participating in 20 minutes of dyn. sitting/standing tasks in least restrictive environment with mod. Indep. as needed for safe completion of all functional tasks and functional ambulation/transfers. 02/25/25 03/11/25 -- Goal Start Date Expected End Date End Date Pt will complete functional transfers and functional ambulation with stand- by/contact guard using least restrictive device. 02/25/25 03/11/25 -- [1] Patient Active Problem List Diagnosis Gout Primary hypertension Obesity ENA (obstructive sleep apnea) Ascending aorta dilatation Acute systolic CHF (congestive heart failure) ([facility]) New onset a-fib ([facility]) S/P gastric bypass Pericardial effusion Moderate mitral valve regurgitation Atrial fibrillation with RVR ([facility]) A-fib ([facility]) Hematoma Cosigned by Megan Edmondson OT at 03/09/2025 4:56 PM EDT * Julio Barnard MD - 02/26/2025 9:59 AM EDT Images from the original note were not included. . Cardiology Progress Note Subjective HPI: Lindsay Pinto is a 59 y.o. male with a PMHx of hypertension, severe LVH, ENA, obesity s/p gastric bypass presents as a direct mission for [facility] with progressively worsening dyspnea, abdominal swelling and anasarca in the setting of new onset A-fib as well as new onset systolic CHF. He had a CXR completed showing cardiomegaly with vascular congestion. CT of the abdomen was completed showing ascites and anasarca. Labs show a mild GILLIAN and an elevated BNP over 5000. EKG was completed showing A-fib with RVR which is new for the patient. He was given 2 doses of digoxin due to borderline hypotension and given a dose of Xarelto. Echocardiogram was completed showing a newly dropped EF of 15 to 20% with moderate pulmonary hypertension, moderate mitral valve regurgitation and a small pericardial effusion. He was transferred [facility] for higher level of care. At [facility], he was started on Lasix 40 mg IV BID and he has made nearly net negative 3L of urine. Vitally, he is afebrile, tachycardic in the 100s, BP 100/63, satting well on RA. Cardiac history: Severe LVH per 2019 Echo that showed LV dysfunction, EF 40% and Echo 05/14/23 showed improvement in EF 50-55%, aortic dilation, mitral valve regurg Cardiac workup: ECHO 05/14/2023: Global LV systolic function is low normal limits; visually estimated EF 50-55%. RVis normal in size and function. Normal diastolic function. Biatrial enlargement. Mild mitral regurg. Aortic root is mildly dilated. Trivial pericardial effusion is seen Updates 02/25/2025: Pt denies chest pain, shortness of breath, nausea, vomiting, diarrhea. Vitally, the patient is afebrile but remains in A fib. His HR improved to the 90s & 100s with SBP 90s-100s. His acute blood loss anemia is worsening Hgb 7.7 from 9.9 yesterday. He was given 1 unit of pRBC today and repeat CTAP ordered to see if rectus sheath hematoma has worsened 02/26/2025: Pt denies chest pain, shortness of breath, nausea, vomiting, diarrhea. Vitally, the patient is afebrile but remains in A fib with HR staying in the 90s & 100s with SBP 90s-100s. His acute blood loss anemia is stable Hgb 7.9. Repeat CTAP remains stable and the size of his hematoma is improving. Objective Current Medications[1] Objective: Patient Vitals for the past 24 hrs: Temp Temp src Pulse Resp SpO2 Weight 02/26/25 0825 -- -- 96 24 100 % -- 02/26/25 0820 -- -- 103 12 100 % -- 02/26/25 0800 36.3 ??C (97.3 ??F) Temporal 87 13 98 % -- 02/26/25 0700 -- -- 102 21 97 % -- 02/26/25 0600 -- -- 87 19 100 % -- 02/26/25 0500 -- -- 74 20 100 % -- 02/26/25 0401 -- -- -- -- -- 111 kg (244 lb 0.8 oz) 02/26/25 0400 36.3 ??C (97.3 ??F) Temporal 89 19 99 % -- 02/26/25 0300 -- -- 83 20 96 % -- 02/26/25 0200 -- -- 80 20 97 % -- 02/26/25 0100 -- -- 93 19 97 % -- 02/26/25 0000 36.7 ??C (98.1 ??F) Temporal 90 24 100 % -- 02/25/25 2300 -- -- 104 18 98 % -- 02/25/25 2200 -- -- 94 20 99 % -- 02/25/25 2100 -- -- 96 13 98 % -- 02/25/25 2000 36.7 ??C (98.1 ??F) Temporal (!) 113 15 100 % -- 02/25/25 1900 -- -- 98 23 100 % -- 02/25/25 1806 -- -- (!) 111 (!) 29 99 % -- 02/25/25 1801 -- -- (!) 111 (!) 29 99 % -- 02/25/25 1800 -- -- 108 (!) 27 -- -- 02/25/25 1700 -- -- 87 16 99 % -- 02/25/25 1608 -- -- -- -- 100 % -- 02/25/25 1600 -- -- 94 25 100 % -- 02/25/25 1540 -- -- 98 21 100 % -- 02/25/25 1535 -- -- 82 20 100 % -- 02/25/25 1530 -- -- 97 23 97 % -- 02/25/25 1525 -- -- 96 22 100 % -- 02/25/25 1500 -- -- 90 20 100 % -- 02/25/25 1400 -- -- (!) 129 19 100 % -- 02/25/25 1310 36 ??C (96.8 ??F) Temporal 83 17 100 % -- 02/25/25 1300 -- -- 89 12 99 % -- 02/25/25 1210 36.1 ??C (97 ??F) Temporal 88 13 97 % -- 02/25/25 1200 36.1 ??C (97 ??F) Temporal 90 22 100 % -- 02/25/25 1110 36 ??C (96.8 ??F) Temporal 97 18 99 % -- 02/25/25 1100 -- -- 89 18 99 % -- 02/25/25 1059 -- -- 87 15 100 % -- 02/25/25 1054 -- -- 91 17 100 % -- 02/25/25 1025 36 ??C (96.8 ??F) Temporal 96 16 100 % -- 02/25/25 1010 36 ??C (96.8 ??F) Temporal 89 22 96 % -- 02/25/25 1000 -- -- 80 24 98 % -- Physical Examination: Physical Exam Constitutional: Appearance: Normal appearance. Cardiovascular: Rate and Rhythm: Normal rate. Rhythm irregular. Pulses: Normal pulses. Heart sounds: Normal heart sounds. Pulmonary: Effort: Pulmonary effort is normal. No respiratory distress. Breath sounds: Normal breath sounds. Abdominal: General: Bowel sounds are normal. There is no distension. Palpations: Abdomen is soft. Musculoskeletal: Right lower leg: Edema present. Left lower leg: Edema present. Neurological: General: No focal deficit present. Mental Status: He is oriented to person, place, and time. Relevant Lab Results Encounter Date: 02/18/25 ECG 12 lead Result Value Ventricular Rate 148 Atrial Rate 148 KS Interval 136 QRS DURATION 166 QT Interval 306 QTC CALCULATION(BAZETT) 480 P Moselle 4 R-Moselle -50 T Wave Moselle 159 Impression Sinus tachycardia Left axis deviation Non-specific intra-ventricular conduction block Abnormal ECG When compared with ECG of 22-FEB-2025 07:05, Sinus rhythm has replaced Atrial fibrillation Confirmed by Prabhu Chavez ([id number]) on 02/24/2025 3:58:26 AM No results found for: CKTOTAL , CKMB , CKMBINDEX , TROPONINI No echocardiogram results found for the past 12 months No nuclear medicine results found for the past 12 months Relevant Imaging Results CTA Abdomen Pelvis W IV Contrast Narrative: CTA ABDOMEN/PELVIS HISTORY: Hematoma COMPARISON: 02/22/2025 TECHNIQUE: Multidetector CT angiogram through the abdomen and pelvis performed following the uncomplicated intravenous administration of 100 mL Omnipaque 350. 3-D maximum intensity projection reconstructions constructed under concurrent physician supervision on a independent workstation. 3-D images obtained to improve visualization of vascular detail. FINDINGS: Small left pleural effusion with adjacent atelectasis. Small pericardial effusion. Airspace opacities in the right lower lobe. Cholelithiasis. The liver, spleen, adrenal glands, pancreas, and kidneys are unremarkable. No enlarged abdominal or pelvic lymph nodes. Bladder decompressed by Tello catheter. Bilateral inferior rectus sheath hematomas (left larger than right) remain. Left-sided hematoma measures 9.0 x 5.7 cm (8.3 x 5.8 cm previously). A large hematoma just posterior to the rectus sheath hematomas in the extraperitoneal space of the pelvis measures 14.5 x 7.2 cm (previously 16.8 x 10.8 cm). There is hemorrhage extending into bilateral retroperitoneal regions (left greater than right), with the amount of this hemorrhage increased since previous study particularly on the left where largest component of hematoma measures 8.3 x 4.6 cm (series 4, image 108). Normal appendix. The small and large bowel are of normal caliber with no evidence of bowel wall thickening. Soft tissue edema in the lower abdomen. Postsurgical changes from previous partial bowel resections. No bowel dilatation. Intra-abdominal vascular structures enhance normally. 3D reformatted images confirm the source data findings. Impression: * Extensive hemorrhage/hematomas involving the inferior rectus sheath (left greater than right), extraperitoneal space of the pelvis, and retroperitoneum. The overall amount of hemorrhage has not significantly changed, though there has been some redistribution of hemorrhage with increase in amount within the lower retroperitoneal spaces (left greater than right) though slightly smaller amount of hemorrhage in the extraperitoneal space of the pelvis. * Unable to accurately comment on presence or absence of active arterial bleeding on this study due to lack of true arterial phase imaging. * Right lower lobe airspace opacities may represent pneumonia, aspiration possible. * Small left pleural effusion and small pericardial effusion. All CT scans at this facility use dose modulation, iterative reconstruction, and/or weight based dosing when appropriate to reduce radiation dose to as low as reasonably achievable. Electronically signed: Daniel Diaz MD. ASSESSMENT Acute HFrEF EF 10 to 15% probably tachycardia mediated with history of heart failure with improved ejection fraction persistent A-fib with RVR [id number] 2 Worsening GILLIAN Acute blood loss anemia Small pericardial effusion on Echo Primary hypertension ENA S/p gastric bypass PLAN CTAP repeat is stable with size of hematoma slowly improving. Due to persistent active bleeding, continue to hold heparin drip. Continue amiodarone drip for A fib management. Hold digoxin for now. Poor candidate for BERNARDINO/Cardioversion at the moment given his active bleeding. Cardiology will sign off. Please reach out to us again if you have any new questions/concerns. This note was, at least in part, completed using a voice bottle inspector system. Every effort was made to ensure accuracy. However, inadvertent computerized bottle inspector errors may be present. Julio Barnard MD [1] Current Facility-Administered Medications: acetaminophen (Tylenol) tablet 650 mg, 650 mg, oral, q6h PRN, Carol Carter, [employer], 650 mg at 02/21/772463 [COMPLETED] amiodarone in dextrose,iso-osm (Nexterone) IVPB 150 mg, 150 mg, intravenous, Once, Stopped at 02/22/25 1345 FOLLOWED BY [] amiodarone (Nexterone) infusion, 1 mg/min, intravenous, Continuous, Stopped at 02/22/25 1945 FOLLOWED BY amiodarone (Nexterone) infusion, 0.5 mg/min,intravenous, Continuous, Norm North MD, Last Rate: 16.67 mL/hr at 02/26/25 08, 0.5 mg/min at 02/26/25 08 [Held by provider] digoxin (Lanoxin) tablet 250 mcg, 250 mcg, oral, Daily, Susan Mcpherson MD, 250 mcgat 02/21/25 0844 diphenhydrAMINE (BENADryl) capsule 25 mg, 25 mg, oral, q8h PRN, Jordan Pitts MD, 25 mg at 02/25/25 0149 [Held by provider] furosemide (Lasix) tablet 40 mg, 40 mg, oral, q12h, Gabriele Yoder MD, 40 mg at 02/21/25 2255 HYDROcodone-acetaminophen (Montrose) 5-325 mg per tablet 1 tablet, 1 tablet, oral, q6h PRN, Suleiman Corcoran MD, 1 tablet at 02/21/25 2240 HYDROmorphone (Dilaudid) injection 0.2 mg, 0.2 mg, intravenous, q4h PRN, Norm North MD, 0.2 mg at 02/22/25 1909 melatonin tablet 5 mg, 5 mg, oral, Nightly PRN, Carol Carter CNP [Held by provider] metoprolol succinate XL (Toprol-XL) 24 hr tablet 100 mg, 100 mg, oral, 2 times daily, Gabriele Yoder MD, 100 mg at 02/21/25 1630 metoprolol tartrate (Lopressor) injection 5 mg, 5 mg, intravenous, Once, Gabriele Yoder MD norepinephrine in sodium chloride 0.9 % (Levophed) 8 mg/250ml infusion, 0.01-2 mcg/kg/min, intravenous, Continuous, Norm North MD, Stopped at 02/26/25 0820 sennosides-docusate sodium (Gertrude-Colace) 8.6-50 mg per tablet 1 tablet, 1 tablet, oral, Daily PRN, Norm North MD, 1 tablet at 02/23/25 0951 sodium chloride 0.9 % infusion, 75 mL/hr, intravenous, Continuous, Divya Barker MD, Last Rate: 75 mL/hr at 02/26/25 08, 75 mL/hr at 02/26/25 0801 Insert peripheral IV, , , Once AND Saline lock IV, , , Once AND sodium chloride flush 10 mL, 10 mL, intravenous, q8h PRN, Carol Carter, HARINI sodium chloride irrigation solution 0.9 % 3,000 mL, 3,000 mL, irrigation, Continuous, Lo Vasquez MD, 3,000 mL at 02/23/251814 [Held by provider] spironolactone (Aldactone) tablet 25 mg, 25 mg, oral, Daily, Susan Mcpherson MD, 25mg at 02/21/25 0843 tamsulosin (Flomax) 24 hr capsule 0.4 mg, 0.4 mg, oral, Daily, Norman Tovar MD, 0.4 mg at 947 [Held by provider] valsartan (Diovan) tablet 80 mg, 80 mg, oral, Daily, Gabriele Yoder MD, 80 mg at 02/21/25 0844 Cosigned by Prabhu Chavez MD at 02/27/2025 8:19 AM EDT Associated attestation - Prabhu Chavze MD - 02/27/2025 8:19 AM EDT By using the attestations below, the signing clinician agrees that I have read and verify that thedocumentation has been personally reviewed by me and ensure that the documentation accurately reflects the encounter. GC: I performed the brumfield portion(s) of the service and participated in the management and confirm the resident's documentation. Please note there may be an additional personal documentation from me. * Divya Barker MD - 02/26/2025 8:25 AM EDT Nephrology Progress Note Patient : Lindsay Pinto; 59 y.o. Location: 3225/3225-01 Attending: Ruth Kramer MD Admit Date: 02/18/2025 Hospital Day: 8 Reason for Consult: Acute kidney injury Subjective: History of present illness: Lindsay Pinto is a 59 y.o. male with past medical history of HTN, ENA, HFrEF, and gastric bypass who presented to an OSH for constipation and bloating. He was found to have new onset a-fib and EF of15-20% dropped from 50-55%. Mr. Pinto was admitted to hospital on 02/18/2025. [facility] and new onset systolic CHF. He has past medical history of hypertension, severe LVH, ENA, obesity s/p gastric bypass. He complained of bloating and constipation for weeks prior to admission. He endorsed associated shortness of breath with exertion and fatigue. He denied chest pain, nausea, vomiting. Chest x-ray revealed cardiomegaly with vascular congestion. CT of the abdomen revealed ascites and anasarca. Labs showed GILLIAN and an elevated BNP over 5000.EKG showed A-fib with RVR, which was new. Xarelto and Two doses of digoxin were administered due to borderline hypotension. Echocardiogram showed new dropped EF of 15 to 20% with moderate pulmonary hypertension, moderate mitral valve regurgitation and a small pericardial effusion. As a result, patient was transferred [facility] for higher level of care. CT abdomen and pelvis on 02/22/2025 showed The right and left rectus abdominal muscles are abnormaland contain hematomas. The left is larger in size. Hemoglobin dropped from 15.4 to 14.0. Later that day, MICU was consulted after a rapid response was called around 7 AM for hypotension with a BP of53/38. On 02/22/2025, patient had another episode of hypotension this morning with a recorded blood pressure of 52/34. He was given albumin and 250 cc lactated ringer and transferred to the MICU for hemodynamic instability. At time of evaluation, hospital day 6, patient was lying in bed with the head of the bed elevated.He was in no acute distress. Discussed renal function with patient. Amiodarone infusion was running. Labs were reviewed. CHEM profile is as follows: Sodium 135, potassium 4.1, chloride 99, bicarb 28,BUN 52, creatinine 2.43. Baseline creatinine is around 1.0. CBC showed the following: WBC 16.83, hemoglobin 9.1, platelets 196. Hemoglobin has remained stable for the past 24 hours. Interval history: 02/26/25 Patient seen and examined at bedside. No acute events overnight. No complaints. Amiodarone infusionrunning for A-fib with RVR. Vascular surgery evaluating hematoma, which is improving. Urine output was 1.45 L for the past 24 hours. Labs were reviewed. Serum creatinine improved to 0.80 from 1.36. Hemoglobin was 7.9 this morning. Objective: Input/Output: Intake/Output Summary (Last 24 hours) at 02/26/2025 0826 Last data filed at 02/26/2025 0801 Gross per 24 hour Intake 2386.11 ml Output 1330 ml Net 1056.11 ml I/O last 3 completed shifts: In: 2961.7 (26.8 mL/kg) [P.O.:650; I.V.:2017.9 (18.2 mL/kg); Blood:293.8] Out: 2170 (19.6 mL/kg) [Urine:2170 (0.5 mL/kg/hr)] Weight: 110.7 kg Vital signs: Temperature: Temp: 36.3 ??C (97.3 ??F) TMax: Temp (24hrs), Av.2 ??C (97.2 ??F), Min:36 ??C (96.8 ??F), Max:36.7 ??C (98.1 ??F) Respirations: Resp: 12 Pulse: Heart Rate: 103 BP: BP: 98/61 BP Range: No data recorded. No data recorded. Wt Readings from Last 3 Encounters: 02/26/25 111 kg (244 lb 0.8 oz) 06/01/24 112 kg (247 lb) 06/05/23 111 kg (244 lb) Physical Exam Constitutional: Appearance: He is obese. He is ill-appearing. HENT: Head: Normocephalic and atraumatic. Mouth/Throat: Mouth: Mucous membranes are moist. Eyes: General: No scleral icterus. Conjunctiva/sclera: Conjunctivae normal. Cardiovascular: Rate and Rhythm: Normal rate and regular rhythm. Pulses: Normal pulses. Pulmonary: Effort: Pulmonary effort is normal. No respiratory distress. Breath sounds: Normal breath sounds. Abdominal: General: Bowel sounds are normal. There is no distension. Palpations: Abdomen is soft. Tenderness: There is no abdominal tenderness. Genitourinary: Comments: Three-way Tello catheter in place. Musculoskeletal: Right lower leg: Edema present. Left lower leg: Edema present. Skin: General: Skin is warm and dry. Coloration: Skin is not jaundiced. Neurological: Mental Status: He is alert and oriented to person, place, and time. Psychiatric: Mood and Affect: Mood normal. Behavior: Behavior normal. Current Medications: Scheduled Meds: [Held by provider] digoxin, 250 mcg, oral, Daily [Held by provider] furosemide, 40 mg, oral, q12h [Held by provider] metoprolol succinate XL, 100 mg, oral, 2 times daily metoprolol tartrate, 5 mg, intravenous, Once sodium chloride irrigation solution, 3,000 mL, irrigation, Continuous [Held by provider] spironolactone, 25 mg, oral, Daily tamsulosin, 0.4 mg, oral, Daily [Held by provider] valsartan, 80 mg, oral, Daily Continuous Infusions: amiodarone, 0.5 mg/min, Last Rate: 0.5 mg/min (02/26/25 0801) norEPINEPHrine, 0.01-2 mcg/kg/min, Last Rate: Stopped (02/26/25 0820) sodium chloride, 75 mL/hr, Last Rate: 75 mL/hr (02/26/25 0801) PRN Meds: PRN medications: acetaminophen, diphenhydrAMINE, HYDROcodone- acetaminophen, HYDROmorphone, melatonin, sennosides-docusate sodium, Insert peripheral IV AND Saline lock IV AND sodium chloride Outpatient Medications: Medication Documentation Review Audit Reviewed by Subha Burk RN (Registered Nurse) on 02/18/25 at 1758 Medication Order Taking? Sig Documenting Provider Last Dose Status ferrous sulfate 325 (65 Fe) MG tablet [id number] No Take 65 mg by mouth in the morning and at bedtime. Patient not taking: Reported on 02/18/2025 Historical Provider, More than a month Active furosemide (Lasix) 40 mg tablet [id number] Yes Take 1 tablet (40 mg) by mouth two times daily. Megan Rosenberg MD Past Week Active labetalol (Normodyne) 200 mg tablet [id number] Yes Take 1 tablet (200 mg) by mouth before breakfast, before lunch, and before evening meal. Megan Rosenberg MD Past Week Active lisinopril 10 mg tablet [id number] Yes Take 1 tablet (10 mg) by mouth in the morning. Megan Rosenberg MD Past Week Active Labs: I have reviewed the patient's most recent labs as listed below: Chemistry: Lab Results Component Value Date NA 133 (L) 02/26/2025 K 3.9 02/26/2025 CL 103 02/26/2025 CO2 27 02/26/2025 CO2 25 2019 ANIONGAP 7 02/26/2025 BUN 25 02/26/2025 CREATININE 0.80 02/26/2025 EGFR 102.6 02/26/2025 GLU 109 (H) 2019 CALCIUM 7.9 (L) 02/26/2025 MG 2.2 02/26/2025 PHOS 1.8 (L) 02/26/2025 ALBUMIN 2.9 (L) 02/26/2025 PROT 4.8 (L) 02/26/2025 AST 16 02/26/2025 ALT 24 02/26/2025 BILITOT 3.5 (H) 02/26/2025 BILIDIR 1.1 (H) 02/22/2025 ALKPHOS 54 02/26/2025 Hematology & Iron studies: Lab Results Component Value Date WBC 7.09 02/26/2025 HGB 7.9 (L) 02/26/2025 HCT 23.2 (L) 02/26/2025 MCV 89.9 02/26/2025 PLT 199 02/26/2025 Urine chemistry Lab Results Component Value Date PROTUR 30 (A) 02/24/2025 CREATUR 170.0 02/24/2025 NAUR 15 02/24/2025 KURINE 107 02/24/2025 CLUR <15.0 (L) 02/24/2025 Urinalysis & Microscopy: Lab Results Component Value Date COLORU Yellow 02/24/2025 CLARITYU Cloudy (A) 02/24/2025 SPECGRAVU 1.036 (H) 02/24/2025 TAZ 5.5 02/24/2025 PROTUR 30 (A) 02/24/2025 LEUKOCYTESU Moderate (A) 02/24/2025 NITRITEU Negative 02/24/2025 GLUCOSEU Normal 02/24/2025 KETONESU Negative 02/24/2025 UROBILINOGEN Normal 02/24/2025 BLOODU Large (A) 02/24/2025 RBCU >20 (A) 02/24/2025 WBCU 21-50 (A) 02/24/2025 SQUAMEPIU Moderate (A) 02/24/2025 MUCUSU Moderate (A) 02/24/2025 Urine Eosinophils: No components found for: UEOS Serology & Other labs: No results found for: JANI , ANATITER , ANCA , RF , CCP , RO , HEPCAB , HEPBAGC1 , HEPBAGC2 , HEPBAGINTERP , HEPBSAG , HEPBCOREAB BNP: No results found for: BNP JANI: No results found for: JANI SPEP: Lab Results Component Value Date PROT 4.8 (L) 02/26/2025 UPEP: No components found for: LABPE C3: No results found for: C3 C4: No results found for: C4 MPO ANCA: No components found for: MPO PR3 ANCA: No components found for: PR3 Anti-GBM: No components found for: GBMABIGG Hep BsAg: No results found for: HEPBSAG Hep C AB: No results found for: HEPCAB Radiology: CTA Abdomen Pelvis W IV Contrast Narrative: CTA ABDOMEN/PELVIS HISTORY: Hematoma COMPARISON: 02/22/2025 TECHNIQUE: Multidetector CT angiogram through the abdomen and pelvis performed following the uncomplicated intravenous administration of 100 mL Omnipaque 350. 3-D maximum intensity projection reconstructions constructed under concurrent physician supervision on a independent workstation. 3-D images obtained to improve visualization of vascular detail. FINDINGS: Small left pleural effusion with adjacent atelectasis. Small pericardial effusion. Airspace opacities in the right lower lobe. Cholelithiasis. The liver, spleen, adrenal glands, pancreas, and kidneys are unremarkable. No enlarged abdominal or pelvic lymph nodes. Bladder decompressed by Tello catheter. Bilateral inferior rectus sheath hematomas (left larger than right) remain. Left-sided hematoma measures 9.0 x 5.7 cm (8.3 x 5.8 cm previously). A large hematoma just posterior to the rectus sheath hematomas in the extraperitoneal space of the pelvis measures 14.5 x 7.2 cm (previously 16.8 x 10.8 cm). There is hemorrhage extending into bilateral retroperitoneal regions (left greater than right), with the amount of this hemorrhage increased since previous study particularly on the left where largest component of hematoma measures 8.3 x 4.6 cm (series 4, image 108). Normal appendix. The small and large bowel are of normal caliber with no evidence of bowel wall thickening. Soft tissue edema in the lower abdomen. Postsurgical changes from previous partial bowel resections. No bowel dilatation. Intra-abdominal vascular structures enhance normally. 3D reformatted images confirm the source data findings. Impression: * Extensive hemorrhage/hematomas involving the inferior rectus sheath (left greater than right), extraperitoneal space of the pelvis, and retroperitoneum. The overall amount of hemorrhage has not significantly changed, though there has been some redistribution of hemorrhage with increase in amount within the lower retroperitoneal spaces (left greater than right) though slightly smaller amount of hemorrhage in the extraperitoneal space of the pelvis. * Unable to accurately comment on presence or absence of active arterial bleeding on this study due to lack of true arterial phase imaging. * Right lower lobe airspace opacities may represent pneumonia, aspiration possible. * Small left pleural effusion and small pericardial effusion. All CT scans at this facility use dose modulation, iterative reconstruction, and/or weight based dosing when appropriate to reduce radiation dose to as low as reasonably achievable. Electronically signed: Daniel Diaz MD. Assessment: Acute kidney injury, likely due to ATN in the setting of hypotensive episodes Hematuria Hematomas in inferior rectus sheath bilaterally Plan: Urine output was 1.45 L for the past 24 hours. Serum creatinine improving. No acute need for CVVHD at this time. Urinalysis with microscopy: RBCs were present. Hyaline casts were seen. No muddy granular casts were observed. Renal ultrasound impression: 1. Minimal prominence in the right renal pelvis without calyceal dilatation, 2. No hydronephrosis of the left kidney, 3. Complex fluid collection in the pelvis consistentwith known hematoma. Urology following for hematuria Vascular surgery following for hematoma. Anticipate exposure to IV contrast today. Counseled patient on risks and benefits of procedures with IV contrast. Continue normal saline at 75 cc/h. Holding home Lasix at this time. Holding home spironolactone and valsartan in the setting of GILLIAN Avoid hypotensive episodes Monitor I/Os, trend creatinine Monitor electrolytes, replete as needed Avoid nephrotoxic agents Creatinine has normalized. Nephrology will sign off at this time. Thank you for the consultation. Please do not hesitate to contact us for any new questions/concerns. Nephrology will sign off at this time. Divya BARKER MD Nephrology Fellow PGY 4 - [facility] Nephrology Pager: [phone] Phone (7am - 4pm): [phone] Cosigned by Matilda Sheppard MD at 02/26/2025 8:59 PM EDT Associated attestation - Matilda Sheppard MD - 02/26/2025 8:59 PM EDT By using the attestations below, the signing clinician agrees that I have read and verify that thedocumentation has been personally reviewed by me and ensure that the documentation accurately reflects the encounter. GC: I personally saw this patient on the day of the encounter, performed the [place]um[place] portion(s) of the service and participated in the management and confirm the resident's documentation. Please note there may be an additional personal documentation from me. * Katerin Sandoval CNP - 02/26/2025 8:04 AM EDT Images from the original note were not included. [facility] Vascular Surgery DAILY PROGRESS NOTE Subjective/Interval History Patient was seen and evaluated at the bedside. They report no acute events overnight. Patient continues with amiodarone gtt for Afib with RVR. He received a transfusion of 1u pRBC for ahemoglobin of 7.9 yesterday. Hgb stable this afternoon at 8.6. He also has a minimal pressor requirement at this time. Repeat CTA remains stable and with some improvement in the size of the hematoma. Objective Vitals: Vitals: 02/26/25 0700 BP: Pulse: 102 Resp: 21 Temp: SpO2: 97% I/O last 3 completed shifts: In: 2961.7 (26.8 mL/kg) [P.O.:650; I.V.:2017.9 (18.2 mL/kg); Blood:293.8] Out: 2170 (19.6 mL/kg) [Urine:2170 (0.5 mL/kg/hr)] Weight: 110.7 kg I/O this shift: In: 192.9 [I.V.:192.9] Out: 60 [Urine:60] Physical Exam Constitutional: Appearance: Normal appearance. HENT: Head: Normocephalic and atraumatic. Cardiovascular: Rate and Rhythm: Tachycardia present. Pulmonary: Effort: Pulmonary effort is normal. Breath sounds: Normal breath sounds. Abdominal: General: There is no distension. Palpations: Abdomen is soft. Tenderness: There is no abdominal tenderness. Skin: General: Skin is warm and dry. Neurological: General: No focal deficit present. Mental Status: He is alert and oriented to person, place, and time. Psychiatric: Mood and Affect: Mood normal. Behavior: Behavior normal. Labs: Results from last 7 days Lab Units 02/26/25 0513 02/25/25 2356 02/25/25 1808 02/25/25 1329 02/25/25 0904 02/25/25 0506 WBC AUTO 10*3/uL 7.09 7.74 8.04 7.39 -- 8.90 HEMOGLOBIN g/dL 7.9* 8.1* 9.0* 8.3* 7.9* 7.7* HEMATOCRIT % 23.2* 23.3* 26.0* 24.3* 22.8* 22.7* PLATELETS AUTO 10*3/uL 199 180 180 158 -- 172 Results from last 7 days Lab Units 02/26/25 0513 02/25/25 0506 02/24/25 0321 02/23/25 0533 02/23/25 0007 SODIUM mmol/L 133* 133* 135* 136 137 POTASSIUM mmol/L 3.9 4.1 4.1 4.5 4.5 CO2 mmol/L 27 29 28 24 25 BUN mg/dL 25 40* 52* 39* 35* CREATININE mg/dL 0.80 1.36* 2.43* 2.27* 2.01* Results from last 7 days Lab Units 02/22/25 1149 INR 1.47* Medications: [Held by provider] digoxin, 250 mcg, oral, Daily [Held by provider] furosemide, 40 mg, oral, q12h [Held by provider] metoprolol succinate XL, 100 mg, oral, 2 times daily metoprolol tartrate, 5 mg, intravenous, Once sodium chloride irrigation solution, 3,000 mL, irrigation, Continuous [Held by provider] spironolactone, 25 mg, oral, Daily tamsulosin, 0.4 mg, oral, Daily [Held by provider] valsartan, 80 mg, oral, Daily amiodarone, 0.5 mg/min, Last Rate: 0.5 mg/min (02/26/25800) norEPINEPHrine, 0.01-2 mcg/kg/min, Last Rate: 0.02 mcg/kg/min (02/26/25800) sodium chloride, 75 mL/hr, Last Rate: 75 mL/hr (02/26/25800) Imaging: CTA Abdomen Pelvis W IV Contrast Narrative: CTA ABDOMEN/PELVIS HISTORY: Hematoma COMPARISON: 02/22/2025 TECHNIQUE: Multidetector CT angiogram through the abdomen and pelvis performed following the uncomplicated intravenous administration of 100 mL Omnipaque 350. 3-D maximum intensity projection reconstructions constructed under concurrent physician supervision on a independent workstation. 3-D images obtained to improve visualization of vascular detail. FINDINGS: Small left pleural effusion with adjacent atelectasis. Small pericardial effusion. Airspace opacities in the right lower lobe. Cholelithiasis. The liver, spleen, adrenal glands, pancreas, and kidneys are unremarkable. No enlarged abdominal or pelvic lymph nodes. Bladder decompressed by Tello catheter. Bilateral inferior rectus sheath hematomas (left larger than right) remain. Left-sided hematoma measures 9.0 x 5.7 cm (8.3 x 5.8 cm previously). A large hematoma just posterior to the rectus sheath hematomas in the extraperitoneal space of the pelvis measures 14.5 x 7.2 cm (previously 16.8 x 10.8 cm). There is hemorrhage extending into bilateral retroperitoneal regions (left greater than right), with the amount of this hemorrhage increased since previous study particularly on the left where largest component of hematoma measures 8.3 x 4.6 cm (series 4, image 108). Normal appendix. The small and large bowel are of normal caliber with no evidence of bowel wall thickening. Soft tissue edema in the lower abdomen. Postsurgical changes from previous partial bowel resections. No bowel dilatation. Intra-abdominal vascular structures enhance normally. 3D reformatted images confirm the source data findings. Impression: * Extensive hemorrhage/hematomas involving the inferior rectus sheath (left greater than right), extraperitoneal space of the pelvis, and retroperitoneum. The overall amount of hemorrhage has not significantly changed, though there has been some redistribution of hemorrhage with increase in amount within the lower retroperitoneal spaces (left greater than right) though slightly smaller amount of hemorrhage in the extraperitoneal space of the pelvis. * Unable to accurately comment on presence or absence of active arterial bleeding on this study due to lack of true arterial phase imaging. * Right lower lobe airspace opacities may represent pneumonia, aspiration possible. * Small left pleural effusion and small pericardial effusion. All CT scans at this facility use dose modulation, iterative reconstruction, and/or weight based dosing when appropriate to reduce radiation dose to as low as reasonably achievable. Electronically signed: Daniel Diaz MD. Assessment/Plan Lindsay Pinto is a 59 y.o. male presenting with new onset afib with RVR and acute systolic CHF with EF of 15-20% now with bilateral inferior rectus sheath hematoma and zone 3 RP hematoma measuring 15.1 x 7.9 cm on the left and 5.8 x 2.7 cm on the right. Repeat CTA abdomen measures the left side hematoma as 9.0 x 5.7 cm and a hematoma posterior to the rectus sheath in the extraperitoneal space measuring 14.5 x 7.2 cm Hemoglobin has been stable . Last hgb at 11:48 today 8.6 Patient continues to have amiodarone gtt and has a minimal pressor requirement Will continue to follow the patient peripherally Katerin Sandoval, MSN, [facility] Division of Vascular/Endovascular and Wound Surgery For non-urgent questions, Epic Chat may be used 0600 - 1800, M-F. For urgent concerns, please call [phone], or ask the form press operator to connect you to the on-call center analyst. For after-hours concerns, please page [phone], or ask the form press operator to connect you to the on-call center analyst. * VITO Parry - 02/25/2025 6:14 PM EDT Consult for Heart Failure rec'd on 02/19. PT/OT reporting ok to return home with home PT/OT. Patientalert and oriented. He states he lives in a split level home with his brother. He states that he has been independent without any DME prior to this. He is not sure he would like [facility] at this time but he is agreeable to preliminary referrals to be made as we are approaching a long holiday weekend. Referrals made to the only 2 provided listed as accepting his insurance: [facility] and [facility]. Follow up needed with patient before discharge to see if he is agreeable to [facility] and if providers have accepted. ASHLI ortiz. * Megan Edmondson, OT - 02/25/2025 4:40 PM EDT Occupational Therapy Occupational Therapy Evaluation Patient Name: Lindsay Pinto : 1965 Today's Date: 02/25/2025 Start Time: 1438 Stop Time: 1453 Time Calculation (min): 15 min OT Evaluation Time Entry OT Evaluation (Moderate) Time Entry: 15 General Subjective: I'm feeling ok. RN ok for pt to be seen OOB at this time. Pt semi- fowlers and agreeable to session. Pt completed functional tasks and functional ambulation. Was left in recliner with call light and needs in reach. RN aware. Patient Summary: 59 y.o male presenting to [facility] from OSH with new afib/CHF. Pt presented to OSH forc/o bloating and constipation. CXR demos cardiomegaly with vascular congestion. CT of the abdomen demos ascites and anasarca. Further imaging demos expanding rectus sheath B hematomas. Hgb downtrending. On 02/22 at 0607, RR was called d/t hypotension (53/38 mmHg). Pt transferred to MICU for further management. Unable to perform BERNARDINO/cardioversion at this time d/t hematomas OT Diagnosis: Decreased independence in functional tasks 2o CHF exacerbation, rectus sheath hematomas Problem List[1] Medical History[2] Surgical History[3] Precautions Precautions Medical Precautions: arterial line, fall risk, IV, tello, telemetry Pain Pain Assessment Pain Assessment: No/denies pain Pain Score: 0 - No pain Cognition Cognition Overall Cognitive Status: Within Functional Limits Arousal/Alertness: Appropriate responses to stimuli Orientation Level: Oriented X4 Following Commands: Follows all commands and directions without difficulty Safety Judgment: Good awareness of safety precautions Awareness of Errors: Good awareness of errors made Deficits: Fully aware of deficits Attention Span: Appears intact Memory: Appears intact Problem Solving: Able to problem solve independently Communication: Intact General Assessment General Assessment Hearing: WFL Skin Integrity: All visualized areas intact Edema: None noted Hand Dominance: Left Home Living Home Living Type of Home: House Lives With: Family (Pt does live with someone but does not elaborate, states they are not always there) Home Adaptive Equipment: None Home Living Comments: lives in [facility], TV is in basement level, bed/bath upstairs. Pt reports he will likely stay at brother upon d/c who has similar home setup Home Layout: Multi-level, Stairs to alternate level with rails Alternate Level Stairs-Number of Steps: 5 down, 8 up Home Access: Stairs to enter with rails Entrance Stairs-Number of Steps: 2 Bathroom Shower/Tub: Tub/shower unit Bathroom Toilet: Standard Bathroom Equipment: Hand-held shower Prior Level of Function Prior Function Level of Harshaw: Independent with ADLs and functional transfers, Independent with homemaking with ambulation Prior Functional Mobility: Independent without device ADL Assistance: Independent Homemaking Assistance: Independent Driving: Independent Vocational: (works at [employer]) Prior IADLs Static Sitting Balance Static Sitting Balance Static Sitting-Balance Support: Feet supported, Unilateral upper extremity supported, No upper extremity supported Static Sitting-Level of Assistance: Distant supervision Dynamic Sitting Balance Dynamic Sitting Balance Dynamic Sitting-Balance Support: Feet unsupported, No upper extremity supported Dynamic Sitting-Balance: Lateral lean, Forward lean, Reaching for objects Dynamic Sitting Balance-Level of Assistance: Close supervision Static Standing Balance Static Standing Balance Static Standing-Balance Support: Right upper extremity supported, Left upper extremity supported, With device Static Standing-Level of Assistance: Contact guard Dynamic Standing Balance Dynamic Standing Balance Dynamic Standing-Balance Support: Right upper extremity supported, Left upper extremity supported, With device Dynamic Standing-Balance: Forward lean, Reaching for objects Dynamic Standing Balance-Level of Assistance: Contact guard Dynamic Standing-Comments: cues for use of RW, slight impulsivity noted ADL ADL Bathing Assistance: Minimal Bathing Deficit: Right lower leg including foot, Left lower leg including foot, Perineal area, Buttocks UE Dressing Assistance: Stand by LE Dressing Assistance: Moderate LE Dressing Deficit: Don/doff R sock, Don/doff L sock Toileting Assistance with Device: Minimal Bed Mobility Bed Mobility Bed Mobility: Yes Bed Mobility 1 Bed Mobility From 1: Supine Bed Mobility Type 1: To Bed Mobility to 1: Short sit Level of Assistance 1: Close supervision Bed Mobility Comments 1: HOB raised, use of rail Transfers Transfers Ambulation comments: Pt completed ambulation to chair, no LOB Transfer: Yes Transfer 1 Transfer From 1: Bed, Sit Transfer Type 1: To Transfer to 1: Stand Technique 1: Sit to stand Transfer Device 1: rolling walker Transfer Level of Assistance 1: Contact guard Transfers 2 Transfer From 2: Stand Transfer Type 2: To Transfer to 2: Sit, Chair with arms Technique 2: Stand to sit Transfer Device 2: rolling walker Transfer Level of Assistance 2: Contact guard Objective General Assessments Activity Tolerance Endurance: Stage II Stage II (METs 1.4-2.0) - Sittin-10 mins Activity Tolerance Comments: No reports of lightheadedness/dizziness, vitals WNL, RA Vision - Basic Assessment Current Vision: Wears glasses all the time Sensation Light Touch: No apparent deficits Sharp/Dull: No apparent deficits Proprioception Proprioception: No apparent deficits Perception Inattention/Neglect: Appears intact Initiation: Appears intact Motor Planning: Appears intact Perseveration: Not present Coordination Movements are Fluid and Coordinated: Yes Hand Function Gross Grasp: Functional Coordination: Functional Extremity Assessments RUE Assessment RUE Assessment: Within Functional Limits LUE Assessment LUE Assessment: Within Functional Limits Outcome Assessments AM-PAC 6 Clicks Putting on and taking off regular lower body clothing?: A Lot (Mod/Max Assist) Bathing(Including washing,rinsing,drying)?: A Little (Min Assist/Contact Guard/Supervision) Toileting, which includes using the toilet,bedpan,or urinal?: A Little (Min Assist/Contact Guard/Supervision) Putting on and taking off regular upper body clothing?: A Little (Min Assist/Contact Guard/Supervision) Taking care of personal grooming such as brushing teeth?: A Little (Min Assist/Contact Guard/Supervision) Eating meals?: None (Independent) Total Score OT [facility]: 18 Assessment/Plan OT Assessment OT Impairments: Decreased ADL status, Decreased safe judgment during ADL, Decreased endurance, Decreased IADLs, Decreased trunk control for functional activities, Decreased functional mobility OT Assessment/MARJORIE Summary: Pt with decreased overall activity tolerance this session, generalized weakness. Pt would benefit from continued skilled occupational therapy to maximize level of independence in basic ADLs to prepare for safe d/c home Prognosis: Good Evaluation/Treatment Tolerance: Patient tolerated treatment well Medical Staff Made Aware: Yes OT Education/Comments: Purpose of session, safety, fall prevention, Plan Level of assist: 1 assist Treatment Interventions: ADL retraining, Functional transfer training, Endurance training, Patient/family training, Equipment evaluation/education, Neuromuscular reeducation OT Plan: Skilled OT OT Frequency: 5 times per week OT Discharge Recommendations: Patient is able to return to prior living environment, Home OT Equipment Recommended: (CTA) OT - Discharge Recommendations Placed: Yes OT Goals Multi-Disciplinary Problems (from Occupational Therapy) Active Problems Problem: Bathing Start Date: 02/25/25 Goal Start Date Expected End Date End Date LTG - Patient will utilize adaptive techniques to bathe body with stand- by/contact guard 02/25/25 03/11/25 -- Problem: Dressings Lower Extremities Start Date: 02/25/25 Goal Start Date Expected End Date End Date LTG - Patient will dress lower body with stand-by/contact guard 02/25/25 03/11/25 -- Problem: Dressing Upper Extremities Start Date: 02/25/25 Goal Start Date Expected End Date End Date LTG - Patient will complete upper body dressing with no assistance 02/25/25 03/11/25 -- Problem: Grooming Start Date: 02/25/25 Goal Start Date Expected End Date End Date STG - Patient will tolerate standing sink side to complete grooming with no assistance 02/25/25 03/11/25 -- Problem: Toileting Start Date: 02/25/25 Goal Start Date Expected End Date End Date LTG - Patient will utilize adaptive techniques/equipment to complete daily toileting tasks with no assistance 02/25/25 03/11/25 -- Problem: OT Misc Start Date: 02/25/25 Goal Start Date Expected End Date End Date Pt will demo increased activity tolerance by participating in 20 minutes of dyn. sitting/standing tasks in least restrictive environment with mod. Indep. as needed for safe completion of all functional tasks and functional ambulation/transfers. 02/25/25 03/11/25 -- Goal Start Date Expected End Date End Date Pt will complete functional transfers and functional ambulation with stand- by/contact guard using least restrictive device. 02/25/25 03/11/25 -- [1] Patient Active Problem List Diagnosis Gout Primary hypertension Obesity ENA (obstructive sleep apnea) Ascending aorta dilatation Acute systolic CHF (congestive heart failure) (CMS/HCC) New onset a-fib (CMS/HCC) S/P gastric bypass Pericardial effusion Moderate mitral valve regurgitation Atrial fibrillation with RVR (CMS/HCC) A-fib (CMS/HCC) Hematoma [2] Past Medical History: Diagnosis Date Hypertension Obesity ENA (obstructive sleep apnea) [3] Past Surgical History: Procedure Laterality Date CARDIAC CATHETERIZATION 05/28/2016 GASTRIC BYPASS SHOULDER SURGERY TONSILLECTOMY * Mingo Keyes, PT - 02/25/2025 3:50 PM EDT Physical Therapy Physical Therapy Evaluation Patient Name: Lindsay Pinto : 1965 Today's Date: 02/25/2025 Start Time: 1438 Stop Time: 1453 Time Calculation (min): 15 min PT Evaluation Time Entry PT Evaluation (Moderate) Time Entry: 15 General Subjective: I'm okay. Session okay per RN. Pt supine in bed upon arrival, agreeable to PT session. Performed bed mobility, transfers, and minimal amb from bed to chair this date. Returned to seatedin recliner chair with call light/tray nearby. PT needs met prior to exit. RN aware of pt performance. Patient Summary: Pt is 59 y.o male presenting to [facility] from OSH with new afib/CHF. Pt presented to OSH for c/o bloating and constipation. CXR demos cardiomegaly with vascular congestion. CT of the abdomen demos ascites and anasarca. Further imaging demos expanding rectus sheath B hematomas. Hgb downt rending. On 02/22 at 0607, RR was called d/t hypotension (53/38 mmHg). Pt transferred to MICU for further management. Unable to perform BERNARDINO/cardioversion at this time d/t hematomas. PT Diagnosis: Decreased functional mobility Problem List[1] Medical History[2] Surgical History[3] Precautions Precautions Medical Precautions: arterial line, fall risk, IV, tello, telemetry Pain Pain Assessment Pain Assessment: No/denies pain Pain Score: 0 - No pain Cognition Cognition Overall Cognitive Status: Within Functional Limits Arousal/Alertness: Appropriate responses to stimuli Orientation Level: Oriented X4 Following Commands: Follows all commands and directions without difficulty Safety Judgment: Good awareness of safety precautions Awareness of Errors: Good awareness of errors made Deficits: Fully aware of deficits Attention Span: Appears intact Memory: Appears intact Problem Solving: Able to problem solve independently Communication: Intact Cognition Comments: Pt minimally conversive throughout session General Assessment General Assessment Hearing: WFL Skin Integrity: All visualized areas intact Edema: None noted Hand Dominance: Left Home Living Home Living Type of Home: House Lives With: Family (Pt does not elaborate on who he lives with when asked) Home Adaptive Equipment: None Home Living Comments: Pt reports TV is downstairs, bed/bath upstairs. Pt reports he will likely stay with his brother at discharge who has similar home setup Home Layout: Multi-level, Stairs to alternate level with rails Alternate Level Stairs-Number of Steps: 5 stairs down, 8 stairs up Home Access: Stairs to enter with rails Entrance Stairs-Number of Steps: 2 Bathroom Shower/Tub: Tub/shower unit Bathroom Toilet: Standard Bathroom Equipment: Hand-held shower Prior Level of Function Prior Function Level of Harshaw: Independent with ADLs and functional transfers, Independent with homemaking with ambulation Prior Functional Mobility: Independent without device ADL Assistance: Independent Homemaking Assistance: Independent Driving: Independent Vision Basic Assessment Vision - Basic Assessment Current Vision: Wears glasses all the time General Assessments Activity Tolerance Endurance: Stage II Stage II (METs 1.4-2.0) - Sittin-10 mins Activity Tolerance Comments: Pt able to tolerate all mobility this date with no reports of lightheaded/dizziness. Vitals WNL on RA Sensation Light Touch: No apparent deficits Sensation Comments: Denies numbness/tingling Perception Inattention/Neglect: Appears intact Initiation: Appears intact Motor Planning: Appears intact Perseveration: Not present Coordination Movements are Fluid and Coordinated: Yes Postural Control Postural Control: Within Functional Limits Static Sitting Balance Static Sitting-Balance Support: Feet supported Static Sitting-Level of Assistance: Distant supervision Static Sitting-Comment/Number of Minutes: EOB sit without LOB and varied UE support Dynamic Sitting Balance Dynamic Sitting-Balance Support: Feet supported Dynamic Sitting-Balance: Lateral lean, Forward lean, Reaching for objects Dynamic Sitting Balance-Level of Assistance: Close supervision Static Standing Balance Static Standing-Balance Support: Right upper extremity supported, Left upper extremity supported, With device Static Standing-Level of Assistance: Contact guard Static Standing-Comment/Number of Minutes: No LOB. Pt does not seem to rely on RW throughout stand Dynamic Standing Balance Dynamic Standing-Balance Support: Right upper extremity supported, Left upper extremity supported, With device Dynamic Standing Balance-Level of Assistance: Contact guard Dynamic Standing-Comments: Some impulsive behaviors with RW and transfer from bed to chair Functional Assessments Bed Mobility Bed Mobility: Yes Bed Mobility 1 Bed Mobility From 1: Supine Bed Mobility Type 1: To Bed Mobility to 1: Short sit Level of Assistance 1: Close supervision Bed Mobility Comments 1: SBA with HOB elevated Transfers Transfer: Yes Transfer 1 Transfer From 1: Bed, Sit Transfer Type 1: To Transfer to 1: Stand Technique 1: Sit to stand Transfer Device 1: rolling walker Transfer Level of Assistance 1: Contact guard Trials/Comments 1: CGA with RW. Pt maintains safety throughout Transfers 2 Transfer From 2: Stand Transfer Type 2: To Transfer to 2: Chair with arms, Sit Technique 2: Stand to sit Transfer Device 2: rolling walker Transfer Level of Assistance 2: Contact guard Trials/Comments 2: CGA with RW. Pt demos no LOB Ambulation Ambulation: Yes Ambulation 1 Surface 1: Level tile Device 1: Rolling walker Assistance 1: Contact guard Quality of Gait 1: Pt able to amb few steps from bed to chair with CGA and use of RW. Does not keepRW with him throughout entirety of turn, requiring VCs for safety Comments/Distance (ft) 1: 2-3 ft Stairs Stairs: No Extremity Assessments RUE Assessment RUE Assessment: (See OT note) LUE Assessment LUE Assessment: (See OT note) RLE Assessment RLE Assessment: Within Functional Limits (Not formally assessed) LLE Assessment LLE Assessment: Within Functional Limits (Not formally assessed) Outcome Assessments 6 Clicks (Mobility) Help from another person turning from your back to your side while in a flat bed without using bedrails: None Help from another person moving from lying on your back to sitting on the side of a flat bed without using bedrails: A little Help from another person moving to and from a bed to a chair (including a wheelchair): A little Help from another person standing up from a chair using your arms (e.g. wheelchair or bedside chair): A little Help from another person to walk in hospital room: A little Help from another person climbing 3-5 steps with a railing: A lot Mobility 6 Clicks T-Score: 18 Assessment/Plan PT Assessment Impairments: Decreased endurance, Impaired balance, Decreased mobility PT Assessment: Pt able to tolerate bed mobility, transfers, and minimal amb this date with no real adverse reactions. Vitals WNL throughout on RA. Pt mostly limited by medical complexities at this time. Pt would continue to benefit from skilled PT services throughout LOS and upon discharge to address impairments and return to PLOF Prognosis: Good Evaluation/Treatment Tolerance: Treatment limited secondary to medical complications (Comment) Medical Staff Made Aware: Yes Strengths: Ability to acquire knowledge, Support of extended family/friends Barriers to Discharge: Comorbidities PT Education/Comments: PT POC Plan Level of assist: 1 assist Treatment/Interventions: Functional transfer training, LE strengthening/ROM, Endurance training, Bed mobility, Gait training, Equipment eval/education, Patient/family training, Balance training PT Plan: Skilled PT PT Frequency: 4 times per week PT Discharge Recommendations: Patient is able to return to prior living environment, Home PT Equipment Recommended: (CTA) PT - Discharge Recommendations Placed: Yes PT Goals Multi-Disciplinary Problems (from Physical Therapy) Active Problems Problem: Balance Start Date: 02/25/25 Goal Start Date Expected End Date End Date LTG - Patient will maintain standing and sitting balance to allow for completion of daily activities 02/25/25 03/11/25 -- Problem: Mobility Start Date: 02/25/25 Goal Start Date Expected End Date End Date LTG - Patient will ambulate at least 50 feet as medically appropriate with stand-by/contact guard using least restrictive assistive device 02/25/25 03/11/25 -- Goal Start Date Expected End Date End Date LTG - As pt's medical stability improves, he will navigate at least 8 steps with stand-by/contact guard using device as appropriate 02/25/25 03/11/25 -- Problem: Transfers Start Date: 02/25/25 Goal Start Date Expected End Date End Date STG - Transfer from bed to chair with SBA using least restrictive assistive device 02/25/25 03/11/25 -- Goal Start Date Expected End Date End Date STG - Patient to transfer to and from sit to supine with no assistance from flat HOB 02/25/25 03/11/25 -- Goal Start Date Expected End Date End Date STG - Patient will transfer sit to and from stand with SBA using least restrictive assistive bhruaq72/28/25 03/11/25 -- Problem: PT Misc Start Date: 02/25/25 Goal Start Date Expected End Date End Date LTG - Pt will tolerate 30+ minute session with minimal rest breaks and vitals remaining in normal limits for improvements in endurance. 02/25/25 03/11/25 -- Goal Start Date Expected End Date End Date LTG - Pt will maximize BLE strength to facilitate ease and safety of functional mobility. 02/25/25 03/11/25 -- Mingo Keyes, PT, DPT [1] Patient Active Problem List Diagnosis Gout Primary hypertension Obesity ENA (obstructive sleep apnea) Ascending aorta dilatation Acute systolic CHF (congestive heart failure) (CMS/HCC) New onset a-fib (CMS/HCC) S/P gastric bypass Pericardial effusion Moderate mitral valve regurgitation Atrial fibrillation with RVR (CMS/HCC) A-fib (CMS/HCC) Hematoma [2] Past Medical History: Diagnosis Date Hypertension Obesity ENA (obstructive sleep apnea) [3] Past Surgical History: Procedure Laterality Date CARDIAC CATHETERIZATION 05/28/2016 GASTRIC BYPASS SHOULDER SURGERY TONSILLECTOMY * Marizol Brizuela DO - 02/25/2025 2:17 PM EDT Images from the original note were not included. Medical ICU Progress Note Patient - Lindsay Pinto Age - 59 [facility] 1965 [id number] Date of Admission - 02/18/2025 5:46 PM HPI/Hospital Course Lindsay Pinto is a 59 y.o. male with past medical history of HTN, ENA, HFrEF, and gastric bypass who presented to an OSH for constipation and bloating. He was found to have new onset a-fib and EF of15-20% dropped from 50-55%. Initial HPI from hospitalist note on 02/18: Lindsay Pinto is an 59 y.o. 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 Patient initially presenting to [place] with bloating and constipation. He states that for the past few weeks he has been having abdominal swelling, bloating. He states associated shortness of breath with exertion. He denies chest pain, nausea, vomiting. He does state mild fatigue. He had a CXR completed showing cardiomegaly with vascular congestion. CT of the abdomen was completed showing ascites and anasarca. Labs show a mild GILLIAN and an elevated BNP over 5000. EKG was completed showing A-fib with RVR which is new for the patient. He was given2 doses of digoxin due to borderline hypotension and given a dose of Xarelto. Echocardiogram was completed showing a newly dropped EF of 15 to 20% with moderate pulmonary hypertension, moderate mitral valve regurgitation and a small pericardial effusion. He was transferred [facility] for higher level of care. Patient does follow with cardiology outpatient for LVH. Per cardiology note, the echocardiogram performed on 05/14/2023 showed LVH with an improvement in EF to 50-55%. His latest echocardiogram did show a significant drop in EF. Cardiology is onboard inpatient for his new-onset atrial fibrillation with RVR. Patient was intially treated with a Cardizem drip; however, it was discontinue due to hypot ension. He has been treated with Toprol XL 100 mg BID and digoxin 250 mcg daily. He is scheduled for BERNARDINO and cardioversion today. CT abdomen and pelvis was performed yesterday for ongoing lower abdominal pain. It did reveal The right and left rectus abdominal muscles are abnormal and contain hematomas. The left is larger in size. Hemoglobin did drop from 15.4 to 14.0, but most recent hemoglobin this morning is 14.5 with a hematocrit of 42.9. MICU was consulted after a rapid response was called around 7 AM for hypotension with a BP of 53/38. He was seen and examined at bedside this morning. Blood pressure is now stable with the most recentpressure of 110/72. The patient is speaking in full sentences. He denies any CP or SOB. He also denies lightheadedness, dizziness, or nausea. He endorses continued abdominal pain that has been present for the past two days. He states that is started after he took a shower and felt tired, so he jumped on his bed. He then felt a sudden pain. He does endorse constipation. Last bowel movement was twodays ago. Patient had another episode of hypotension this morning with a recorded blood pressure of 52/34. Hewas given albumin and 250 cc lactated ringer and transferred to the MICU for hemodynamic instability. SUBJECTIVE Patient was seen and examined at bedside. He denies CP, SOB, or abdominal pain. Heart rate now mostly in the 90s with systolic blood pressures in the 90s-100s. Patient has been off of Levophed since 11 AM this morning. Consulting Service(s): Vascular surgery Urology Nephrology Hospital Course: 02/22: Heparin was dropped due to expanding hematomas in the bilateral inferior rectus sheath and new hematoma in the extraperitoneal space of the anterior pelvis seen on CT abdomen and pelvis. Hemoglobin dropped from 14.5 to 11.4. Vascular surgery was consulted and recommended monitoring hemoglobin. Urology was consulted for gross hematuria. No acute intervention at this time. Patient remains on an amiodarone drip. 02/23: Patient was started on Levophed. Renal function is worsening. Hemoglobin has stabilized at 10.9. No plans to cardiovert as patient is not on anticoagulation. 02/24: Patient is off pressors. Cardiology started digoxin 250 mcg q6 IV. Hemoglobin has been slowlydown trending, will continue to monitor. Nephrology consulted for worsening GILLIAN, likely secondary to ATN. 02/25: Levophed was restarted yesterday afternoon but was discontinued around 11 AM. Hemoglobin today has dropped to 7.7. CTA abdomen and pelvis with IV contrast again revealed hematomas involving theinferior rectus sheath, extraperitoneal space of the pelvis, and retroperitoneum with no significant change from previous. Patient received 1 unit RBCs with improvement of hemoglobin to 8.3. Digoxin held as patient is supratherapeutic. OBJECTIVE Vitals height is 1.727 m (5' 7.99 ) and weight is 108 kg (237 lb 14 oz). His temporal temperature is 36 ??C (96.8 ??F). His blood pressure is 98/61 and his pulse is 83. His respiration is 17 and oxygen saturation is 100%. Temp: [36 ??C (96.8 ??F)-36.7 ??C (98.1 ??F)] 36 ??C (96.8 ??F) Heart Rate: [80-148] 83 Resp: [0-28] 17 Arterial Line BP 1: (92-113)/(46-64) 100/48 Physical Exam: Physical Exam Vitals and nursing note reviewed. Constitutional: General: He is not in acute distress. Appearance: Normal appearance. HENT: Head: Normocephalic and atraumatic. Eyes: Extraocular Movements: Extraocular movements intact. Conjunctiva/sclera: Conjunctivae normal. Cardiovascular: Rate and Rhythm: Normal rate. Rhythm irregularly irregular. Pulmonary: Effort: Pulmonary effort is normal. Breath sounds: Normal breath sounds. Abdominal: Palpations: Abdomen is soft. Tenderness: There is no abdominal tenderness. Musculoskeletal: General: Normal range of motion. Right lower leg: No edema. Left lower leg: No edema. Skin: General: Skin is warm and dry. Findings: No rash. Neurological: General: No focal deficit present. Mental Status: He is alert and oriented to person, place, and time. Weight: Admission weight: 118 kg (259 lb 12.8 oz) Wt Readings from Last 1 Encounters: 02/25/25 108 kg (237 lb 14 oz) Input/Output: Intake/Output Summary (Last 24 hours) at 02/25/2025 1417 Last data filed at 02/25/2025 1352 Gross per 24 hour Intake 1902.63 ml Output 1491 ml Net 411.63 ml Ventilator: Lab Results ABG: CBC: Results from last 7 days Lab Units 02/25/25 1329 02/25/25 0904 02/25/25 0506 02/25/25 0006 WBC AUTO 10*3/uL 7.39 -- 8.90 10.11 HEMOGLOBIN g/dL 8.3* 7.9* 7.7* 8.3* HEMATOCRIT % 24.3* 22.8* 22.7* 23.7* PLATELETS AUTO 10*3/uL 158 -- 172 178 Coagulation: Results from last 7 days Lab Units 02/22/25 1149 02/21/25 0355 02/20/25 0939 02/19/25 0819 02/19/25 0125 02/18/25 1846 APTT Seconds -- 117.9* 169.6* 154.5* < > 32.7 INR 1.47* -- -- -- -- 1.47* < > = values in this interval not displayed. Metabolic Panel: Results from last 7 days Lab Units 02/25/25 0506 02/24/25 0321 02/23/25 0533 SODIUM mmol/L 133* 135* 136 POTASSIUM mmol/L 4.1 4.1 4.5 CHLORIDE mmol/L 99 99 101 CO2 mmol/L 29 28 24 BUN mg/dL 40* 52* 39* CREATININE mg/dL 1.36* 2.43* 2.27* GLUCOSE mg/dL 102* 104* 118* CALCIUM mg/dL 8.1* 8.5* 8.9 MAGNESIUM mg/dL 2.3 2.1 2.0 Liver Panel: Results from last 7 days Lab Units 02/25/25 0506 02/24/25 0321 02/23/25 0533 ALBUMIN g/dL 3.1* 3.3* 3.5 BILIRUBIN TOTAL mg/dL 2.8* 3.0* 3.4* ALT U/L 27 32 32 AST U/L 19 24 25 ALK PHOS U/L 54 58 61 Glucose: Hgb A1c: Cardiac: Results from last 7 days Lab Units 02/18/25 1846 BNP pg/mL 491* Anemia Labs: Lipid Panel: No lab exists for component: CHOLHDL Urine Labs: Lab Results Component Value Date WBCU 21-50 (A) 02/24/2025 UROBILINOGEN Normal 02/24/2025 Additional Labs: No lab exists for component: LACTICACID , PROCALCITON Radiology CTA Abdomen Pelvis W IV Contrast Narrative: CTA ABDOMEN/PELVIS HISTORY: Hematoma COMPARISON: 02/22/2025 TECHNIQUE: Multidetector CT angiogram through the abdomen and pelvis performed following the uncomplicated intravenous administration of 100 mL Omnipaque 350. 3-D maximum intensity projection reconstructions constructed under concurrent physician supervision on a independent workstation. 3-D images obtained to improve visualization of vascular detail. FINDINGS: Small left pleural effusion with adjacent atelectasis. Small pericardial effusion. Airspace opacities in the right lower lobe. Cholelithiasis. The liver, spleen, adrenal glands, pancreas, and kidneys are unremarkable. No enlarged abdominal or pelvic lymph nodes. Bladder decompressed by Tello catheter. Bilateral inferior rectus sheath hematomas (left larger than right) remain. Left-sided hematoma measures 9.0 x 5.7 cm (8.3 x 5.8 cm previously). A large hematoma just posterior to the rectus sheath hematomas in the extraperitoneal space of the pelvis measures 14.5 x 7.2 cm (previously 16.8 x 10.8 cm). There is hemorrhage extending into bilateral retroperitoneal regions (left greater than right), with the amount of this hemorrhage increased since previous study particularly on the left where largest component of hematoma measures 8.3 x 4.6 cm (series 4, image 108). Normal appendix. The small and large bowel are of normal caliber with no evidence of bowel wall thickening. Soft tissue edema in the lower abdomen. Postsurgical changes from previous partial bowel resections. No bowel dilatation. Intra-abdominal vascular structures enhance normally. 3D reformatted images confirm the source data findings. Impression: * Extensive hemorrhage/hematomas involving the inferior rectus sheath (left greater than right), extraperitoneal space of the pelvis, and retroperitoneum. The overall amount of hemorrhage has not significantly changed, though there has been some redistribution of hemorrhage with increase in amount within the lower retroperitoneal spaces (left greater than right) though slightly smaller amount of hemorrhage in the extraperitoneal space of the pelvis. * Unable to accurately comment on presence or absence of active arterial bleeding on this study due to lack of true arterial phase imaging. * Right lower lobe airspace opacities may represent pneumonia, aspiration possible. * Small left pleural effusion and small pericardial effusion. All CT scans at this facility use dose modulation, iterative reconstruction, and/or weight based dosing when appropriate to reduce radiation dose to as low as reasonably achievable. Electronically signed: Daniel Diaz MD. Cultures Lab Results Component Value Date BLOOD CULTURE No growth at 2 days 02/23/2025 Medications Scheduled: [Held by provider] digoxin, 250 mcg, oral, Daily [Held by provider] furosemide, 40 mg, oral, q12h [Held by provider] metoprolol succinate XL, 100 mg, oral, 2 times daily metoprolol tartrate, 5 mg, intravenous, Once sodium chloride irrigation solution, 3,000 mL, irrigation, Continuous [Held by provider] spironolactone, 25 mg, oral, Daily tamsulosin, 0.4 mg, oral, Daily [Held by provider] valsartan, 80 mg, oral, Daily Infusions: amiodarone, 0.5 mg/min, Last Rate: 0.5 mg/min (02/25/25 1413) norEPINEPHrine, 0.01-2 mcg/kg/min, Last Rate: Stopped (02/25/25 1054) sodium chloride, 20 mL/hr, Last Rate: Stopped (02/25/25 1009) sodium chloride, 75 mL/hr, Last Rate: 75 mL/hr (02/25/25 1414) As Needed: PRN medications: acetaminophen, diphenhydrAMINE, HYDROcodone-acetaminophen, HYDROmorphone, melatonin, sennosides-docusate sodium, Insert peripheral IV AND Saline lock IV AND sodium chloride Assessment & Plan Circulatory shock due to a-fib and acute blood loss A-line and CVC are in place. Levophed as needed for MAP goal > 65 Monitor hemodynamic stability. Transfuse for hemoglobin <7. S/p 1 unit RBCs 02/25 New-onset A-fib with RVR with left bundle branch block S/p Cardizem drip discontinued due to hypotension Heparin infusion since 02/18-02/22, stopped due to hematoma Continue to hold anticoagulation Hold GDMT. No plan for cardioversion as patient is not on anticoagulation at this time. Continue amiodarone infusion. S/p digoxin 250 mcg q6 IV. Will hold as digoxin level is supratherapeutic. [id number] score of 2. Cardiology on board, appreciate recommendations Vascular surgery consulted, recommend conservative management Acute decompensated systolic heart failure, EF of 15% Cardiology will plan for ischemic work-up once rhythm is normalized Holding GDMT due to hypotension GILLIAN likely prerenal secondary to atrial fibrillation and hypovolemia Creatinine is trending down from peak of 2.43. Urine studies performed Calculated FENa is 0.2% Low urine sodium and high urine potassium, high urine osmolality (686) Renal ultrasound minimal prominence of the right renal pelvis without calyceal dilatation Monitor I/Os, trend creatinine Initiate normal saline at 75 ml/h Nephrology on board, appreciate recommendations. No acute CVVHD at this time Gross hematuria S/p CBI 02/23 Monitor urine output Urology on board, appreciate recommendations Bilateral rectus sheath hematoma larger on left, in the setting of anticoagulation Trend H and H q6, given CT findings of hematoma. Hemoglobin is slowly trending down 14.5 -> 11.4 -> 10.4 -> 9.0 -> 7.7, improved to 8.3 s/p 1 unit RBC transfusion Transfuse Hgb < 7. Vascular surgery on board, appreciate recommendations Leukocytosis, improved WBC of 7.39. Lactate on 02/22 was 2.2, repeat decreased to 1.8 Peripheral blood cultures x2 02/22, no growth to date Peripheral blood cultures x2 02/23, no growth to date Will follow Jaundice with hyperbilirubinemia Total bilirubin trending down from 4.8. Total bilirubin 2.4 5 years ago LFTs within normal limits HTN ENA Obesity s/p gastric bypass surgery DVT prophylaxis: None GI prophylaxis: None Lines: Peripheral IV, arterial line left brachial, CVC left IJ Diet: NPO Fluids: Normal saline at 75 ml/h Code status: Full Summer Alexi, MS4 [employer] Marizol Brizuela DO Internal Medicine Resident, PGY-2 [facility] 7:17 PM 02/25/25 This note was completed using a voice bottle inspector system. Every effort was made to ensure accuracy. However, inadvertent computerized bottle inspector errors may be present. Cosigned by Ruth Kramer MD at 02/26/2025 6:49 PM EDT Associated attestation - Ruth Kramer MD - 02/26/2025 6:49 PM EDT The patient was seen and examined with the resident/fellow on the same date of service, I discussedthe findings and therapeutic plan and agree with the documentation, assessment and plan as above except for any edits/updates below. Critical Care services were required for the patient due to critical condition: Circulatory shock due to Afib and acute blood loss New onset Afib with RVR and LBBB Decompensated CHFrEF 15% Bilateral rectus sheath hematoma spontaneous in the setting of anticoagulation Hyperbilirubinemia GILLIAN - ATN ENA Morbid obesity s/p gastric bypass I personally provided direct critical care services consisting of: Continue Levophed to keep MAP > 65 mmHg Monitor H and H and transfused for hemoglobin less than 8, required 1 unit RBC Continue Hold anticoagulation Continue Amiodarone infusion Hold GDMT, right and left heart cath once stable Trend Bilirubin Monitor kidney function and electrolytes, suspect ATN due to hypotension Monitor urine output, nephology following Replace electrolytes DVT and GI prophylaxis Critical Care minutes were 35, which excludes time performing separately billed procedures, updating family, and teaching. * Autumn Linder MD - 02/25/2025 9:13 AM EDT Images from the original note were not included. [facility] Vascular Surgery DAILY PROGRESS NOTE Subjective No blood given overnight. He is on 0.02 levo and amio gtt still. Denies much abdominal pain; stateshe is passing gas. His urine output is now not bloody. Reports he doesn't have much of an appetite. Objective Vitals: Vitals: 02/25/25 0800 BP: Pulse: 90 Resp: 17 Temp: SpO2: 99% I/O last 3 completed shifts: In: 1759.6 (16.3 mL/kg) [P.O.:1050; I.V.:709.6 (6.6 mL/kg)] Out: 2742 (25.4 mL/kg) [Urine:2742 (0.7 mL/kg/hr)] Weight: 107.9 kg I/O this shift: In: 66.1 [I.V.:66.1] Out: 215 [Urine:215] Physical Exam Physical Exam General Appearance: awake, alert; well-developed HEENT: atraumatic, normocephalic; EOMI Pulmonary: unlabored breathing, saturating >93% on room air. Cardiac: irregular rate on amio gtt, stable blood pressure on low dose levo Abdomen: soft, mild-tender, non-distended; no rebound tenderness or guarding. Neuro: alert and oriented x3; no focal neurologic deficits. Extremity: full range of motion, no peripheral edema. Urology: tello with hematuria Skin: warm, dry; no rashes or lesions. Vascular Exam Vascular: RLE Pulses: Femoral: +2 DP: PT: Edema: none LLE Pulses: Femoral: +2 DP: PT: Edema: none RUE Pulses: Radial: 2+ Edema: none LUE Pulses: Radial: 2+ Edema: none Labs: Results from last 7 days Lab Units 02/25/25 0506 02/25/25 0006 02/24/25 1837 02/24/25 1243 02/24/25 0321 WBC AUTO 10*3/uL 8.90 10.11 12.23* 16.83* 14.22* HEMOGLOBIN g/dL 7.7* 8.3* 8.6* 9.1* 9.0* HEMATOCRIT % 22.7* 23.7* 24.4* 26.1* 26.4* PLATELETS AUTO 10*3/uL 172 178 182 196 173 Results from last 7 days Lab Units 02/25/25 0506 02/24/25 0321 02/23/25 0533 02/23/25 0007 02/22/25 1149 SODIUM mmol/L 133* 135* 136 137 139 POTASSIUM mmol/L 4.1 4.1 4.5 4.5 4.5 CO2 mmol/L BUN mg/dL 40* 52* 39* 35* 27* CREATININE mg/dL 1.36* 2.43* 2.27* 2.01* 1.43* Results from last 7 days Lab Units 02/22/25 1149 02/18/25 1846 INR 1.47* 1.47* Medications: [Held by provider] digoxin, 250 mcg, oral, Daily [Held by provider] furosemide, 40 mg, oral, q12h [Held by provider] metoprolol succinate XL, 100 mg, oral, 2 times daily metoprolol tartrate, 5 mg, intravenous, Once sodium chloride irrigation solution, 3,000 mL, irrigation, Continuous [Held by provider] spironolactone, 25 mg, oral, Daily tamsulosin, 0.4 mg, oral, Daily [Held by provider] valsartan, 80 mg, oral, Daily amiodarone, 0.5 mg/min, Last Rate: 0.5 mg/min (02/25/25911) norEPINEPHrine, 0.01-2 mcg/kg/min, Last Rate: 0.02 mcg/kg/min (02/25/25911) Imaging: US renal complete Narrative: US RENAL COMPLETE 02/24/2025 9:39 AM CLINICAL INDICATIONS: Rectus sheath hematoma, acute kidney injury, bleeding COMPARISON: CT dated 02/22/2025 FINDINGS: The right kidney measures 12.4 x 5.3 x 5.6 cm, and the right renal pelvis is minimally prominent, but no calyceal dilatation is seen. The left kidney measures 12.9 x 6 x 6.2 cm without hydronephrosis. No perinephric fluid collections. Complex fluid collection seen in the pelvis near the urinary bladder measuring up to 12.8 cm in the largest diameter, consistent with known hemorrhage. The bladder is decompressed with a Tello catheter. Impression: 1. Minimal prominence of the right renal pelvis without calyceal dilatation. 2. No hydronephrosis of the left kidney. 3. 40 catheter in the bladder. 4. Complex fluid collection in the pelvis consistent with known hematoma. Electronically signed: INES JORDAN MD. ECG 12 lead Sinus tachycardia Left axis deviation Non-specific intra-ventricular conduction block Abnormal ECG When compared with ECG of 22-FEB-2025 07:05, Sinus rhythm has replaced Atrial fibrillation Confirmed by Prabhu Chavez ([id number]) on 02/24/2025 3:58:26 AM Assessment/Plan Lindsay Pinto is a 59 y.o. male presenting with new onset afib with RVR and acute systolic CHF with EF of 15-20% now with bilateral inferior rectus sheath hematoma and zone 3 RP hematoma measuring 15.1 x 7.9 cm on the left and 5.8 x 2.7 cm on the right. No blood needed since admission. Patient was seen and examined today at bedside by Dr. Linder after reviewing the patient's lab results and imaging. Plan was discussed with Dr. Linder, and current plan is as follows: Continue conservative management; no acute surgical intervention Follow up repeat CTA AP- approved by nephrology team this morning Continue to trend CBC Holding hep gtt as able Monitor abdominal exam Appreciate care per ICU Aisha Canchola MD, PGY4 General Surgery Resident For non-urgent questions, [employer] Chat may be used 0600 - 1800, M-F. For urgent concerns, please call [phone], or ask the form press operator to connect you to the on-call center analyst. For after-hours concerns, please page [phone], or ask the form press operator to connect you to the on-call center analyst. I saw patient with residents Stable CT done: hematoma is stable: IMPRESSION: *Extensive hemorrhage/hematomas involving the inferior rectus sheath (left greater than right), extraperitoneal space of the pelvis, and retroperitoneum. The overall amount of hemorrhage has not significantly changed, though there has been some redistribution of hemorrhage with increase in amount within the lower retroperitoneal spaces (left greater than right) though slightly smaller amount of hemorrhage in the extraperitoneal space of the pelvis. *Unable to accurately comment on presence or absence of active arterial bleeding on this study due to lack of true arterial phase imaging. *Right lower lobe airspace opacities may represent pneumonia, aspiration possible. *Small left pleural effusion and small pericardial effusion. Willcontinue to observe The rest of history and exam as above * Julio Barnard MD - 02/25/2025 8:57 AM EDT Images from the original note were not included. . Cardiology Progress Note Subjective HPI: Lindsay Pinto is a 59 y.o. male with a PMHx of hypertension, severe LVH, ENA, obesity s/p gastric bypass presents as a direct mission for [facility] with progressively worsening dyspnea, abdominal swelling and anasarca in the setting of new onset A-fib as well as new onset systolic CHF. He had a CXR completed showing cardiomegaly with vascular congestion. CT of the abdomen was completed showing ascites and anasarca. Labs show a mild GILLIAN and an elevated BNP over 5000. EKG was completed showing A-fib with RVR which is new for the patient. He was given 2 doses of digoxin due to borderline hypotension and given a dose of Xarelto. Echocardiogram was completed showing a newly dropped EF of 15 to 20% with moderate pulmonary hypertension, moderate mitral valve regurgitation and a small pericardial effusion. He was transferred [facility] for higher level of care. At [facility], he was started on Lasix 40 mg IV BID and he has made nearly net negative 3L of urine. Vitally, he is afebrile, tachycardic in the 100s, BP 100/63, satting well on RA. Cardiac history: Severe LVH per 2019 Echo that showed LV dysfunction, EF 40% and Echo 05/14/23 showed improvement in EF 50-55%, aortic dilation, mitral valve regurg Cardiac workup: ECHO 05/14/2023: Global LV systolic function is low normal limits; visually estimated EF 50-55%. RVis normal in size and function. Normal diastolic function. Biatrial enlargement. Mild mitral regurg. Aortic root is mildly dilated. Trivial pericardial effusion is seen Updates 02/25/2025: Pt denies chest pain, shortness of breath, nausea, vomiting, diarrhea. Vitally, the patient is afebrile but remains in A fib. His HR improved to the 90s & 100s with SBP 90s-100s. His acute blood loss anemia is worsening Hgb 7.7 from 9.9 yesterday. He was given 1 unit of pRBC today and repeat CTAP ordered to see if rectus sheath hematoma has worsened Objective Current Medications[1] Objective: Patient Vitals for the past 24 hrs: Temp Temp src Pulse Resp SpO2 Weight 02/25/25 0800 -- -- 90 17 99 % -- 02/25/25 0700 -- -- 95 21 98 % -- 02/25/25 0600 -- -- 91 (!) 0 100 % -- 02/25/25 0501 -- -- -- -- -- 108 kg (237 lb 14 oz) 02/25/25 0500 -- -- 90 18 97 % -- 02/25/25 0400 36.1 ??C (97 ??F) Temporal 91 14 95 % -- 02/25/25 0300 -- -- 102 20 95 % -- 02/25/25 0200 -- -- 103 20 100 % -- 02/25/25 0100 -- -- 108 20 98 % -- 02/25/25 0000 36.7 ??C (98.1 ??F) -- 110 (!) 28 96 % -- 02/24/25 2304 -- -- (!) 114 -- -- -- 02/24/25 2300 -- -- (!) 113 16 97 % -- 02/24/25 2200 -- -- (!) 122 23 98 % -- 02/24/25 2100 -- -- (!) 127 25 99 % -- 02/24/251999 36.7 ??C (98.1 ??F) -- 109 16 96 % -- 02/24/25 1900 -- -- (!) 148 17 98 % -- 02/24/25 1800 -- -- (!) 137 15 100 % -- 02/24/25 1700 -- -- (!) 142 17 98 % -- 02/24/25 1600 -- -- (!) 113 11 99 % -- 02/24/25 1500 -- -- (!) 115 13 100 % -- 02/24/25 1400 -- -- 103 16 100 % -- 02/24/25 1300 -- -- (!) 112 22 100 % -- 02/24/25 1200 -- -- (!) 112 22 100 % -- 02/24/25 1118 -- -- (!) 131 -- -- 108 kg (238 lb 1.6 oz) 02/24/25 1100 -- -- (!) 134 17 100 % -- 02/24/25 1000 -- -- (!) 135 19 98 % -- 02/24/25 0900 -- -- (!) 120 19 98 % -- Physical Examination: Physical Exam Constitutional: Appearance: Normal appearance. Cardiovascular: Rate and Rhythm: Tachycardia present. Rhythm irregular. Pulses: Normal pulses. Heart sounds: Normal heart sounds. Pulmonary: Effort: Pulmonary effort is normal. No respiratory distress. Breath sounds: Normal breath sounds. Abdominal: General: Bowel sounds are normal. There is no distension. Palpations: Abdomen is soft. Musculoskeletal: Right lower leg: Edema present. Left lower leg: Edema present. Neurological: General: No focal deficit present. Mental Status: He is oriented to person, place, and time. Relevant Lab Results Encounter Date: 02/18/25 ECG 12 lead Result Value Ventricular Rate 148 Atrial Rate 148 KS Interval 136 QRS DURATION 166 QT Interval 306 QTC CALCULATION(BAZETT) 480 P Moselle 4 R-Moselle -50 T Wave Moselle 159 Impression Sinus tachycardia Left axis deviation Non-specific intra-ventricular conduction block Abnormal ECG When compared with ECG of 22-FEB-2025 07:05, Sinus rhythm has replaced Atrial fibrillation Confirmed by Prabhu Chavez ([id number]) on 02/24/2025 3:58:26 AM No results found for: CKTOTAL , CKMB , CKMBINDEX , TROPONINI No echocardiogram results found for the past 12 months No nuclear medicine results found for the past 12 months Relevant Imaging Results US renal complete Narrative: US RENAL COMPLETE 02/24/2025 9:39 AM CLINICAL INDICATIONS: Rectus sheath hematoma, acute kidney injury, bleeding COMPARISON: CT dated 02/22/2025 FINDINGS: The right kidney measures 12.4 x 5.3 x 5.6 cm, and the right renal pelvis is minimally prominent, but no calyceal dilatation is seen. The left kidney measures 12.9 x 6 x 6.2 cm without hydronephrosis. No perinephric fluid collections. Complex fluid collection seen in the pelvis near the urinary bladder measuring up to 12.8 cm in the largest diameter, consistent with known hemorrhage. The bladder is decompressed with a Tello catheter. Impression: 1. Minimal prominence of the right renal pelvis without calyceal dilatation. 2. No hydronephrosis of the left kidney. 3. 40 catheter in the bladder. 4. Complex fluid collection in the pelvis consistent with known hematoma. Electronically signed: INES JORDAN MD. ECG 12 lead Sinus tachycardia Left axis deviation Non-specific intra-ventricular conduction block Abnormal ECG When compared with ECG of 22-FEB-2025 07:05, Sinus rhythm has replaced Atrial fibrillation Confirmed by Prabhu Chavez ([id number]) on 02/24/2025 3:58:26 AM ASSESSMENT Acute HFrEF EF 10 to 15% probably tachycardia mediated with history of heart failure with improved ejection fraction persistent A-fib with RVR [id number] 2 Worsening GILLIAN Acute blood loss anemia Small pericardial effusion on Echo Primary hypertension ENA S/p gastric bypass PLAN CTAP on 02/22 showed increase in size of bilateral inferior rectus sheath hematomas (left larger than right) with new large hematoma just posterior to the rectus sheath Due to persistent active bleeding, continue to hold heparin drip. Continue amiodarone drip for A fib management. A few doses of digoxin 250 mcg q6 IV was given. Now supratherapeutic at digoxin 2.3. Hold digoxin for now. Cardiology will continue to follow This note was, at least in part, completed using a voice bottle inspector system. Every effort was made to ensure accuracy. However, inadvertent computerized bottle inspector errors may be present. Julio Barnard MD [1] Current Facility-Administered Medications: acetaminophen (Tylenol) tablet 650 mg, 650 mg, oral, q6h PRN, Carol Carter, [employer]ATION [employer], 650 mg at [COMPLETED] amiodarone in dextrose,iso-osm (Nexterone) IVPB 150 mg, 150 mg, intravenous, Once, Stopped at 02/22/25 1345 FOLLOWED BY [] amiodarone (Nexterone) infusion, 1 mg/min, intravenous, Continuous, Stopped at 02/22/25 1945 FOLLOWED BY amiodarone (Nexterone) infusion, 0.5 mg/min,intravenous, Continuous, Norm North MD, Last Rate: 16.67 mL/hr at 02/25/25 0834, 0.5 mg/min at 02/25/25 0834 [Held by provider] digoxin (Lanoxin) tablet 250 mcg, 250 mcg, oral, Daily, Susan Mcpherson MD, 250 mcgat 02/21/25 0844 diphenhydrAMINE (BENADryl) capsule 25 mg, 25 mg, oral, q8h PRN, Jordan Pitts MD, 25 mg at 02/25/25 0149 [Held by provider] furosemide (Lasix) tablet 40 mg, 40 mg, oral, q12h, Gabriele Yoder MD, 40 mg at 02/21/25 2255 HYDROcodone-acetaminophen (Montrose) 5-325 mg per tablet 1 tablet, 1 tablet, oral, q6h PRN, Suleiman Corcoran MD, 1 tablet at 02/21/25 2240 HYDROmorphone (Dilaudid) injection 0.2 mg, 0.2 mg, intravenous, q4h PRN, Norm North MD, 0.2 mg at 02/22/25 1909 melatonin tablet 5 mg, 5 mg, oral, Nightly PRN, Carol Carter CNP [Held by provider] metoprolol succinate XL (Toprol-XL) 24 hr tablet 100 mg, 100 mg, oral, 2 times daily, Gabriele Yoder MD, 100 mg at 02/21/25 1630 metoprolol tartrate (Lopressor) injection 5 mg, 5 mg, intravenous, Once, Gabriele Yoder MD norepinephrine in sodium chloride 0.9 % (Levophed) 8 mg/250ml infusion, 0.01-2 mcg/kg/min, intravenous, Continuous, Norm North MD, Last Rate: 3.98 mL/hr at 02/25/25 0834, 0.02 mcg/kg/min at 02/25/25 0834 sennosides-docusate sodium (Gertrude-Colace) 8.6-50 mg per tablet 1 tablet, 1 tablet, oral, Daily PRN, Norm North MD, 1 tablet at 02/23/25 0951 Insert peripheral IV, , , Once AND Saline lock IV, , , Once AND sodium chloride flush 10 mL, 10 mL, intravenous, q8h PRN, Carol Carter CNP sodium chloride irrigation solution 0.9 % 3,000 mL, 3,000 mL, irrigation, Continuous, Lo Vasquez MD, 3,000 mL at 02/23/25 1815 [Held by provider] spironolactone (Aldactone) tablet 25 mg, 25 mg, oral, Daily, Susan Mcpherson MD, 25mg at 02/21/25 0843 tamsulosin (Flomax) 24 hr capsule 0.4 mg, 0.4 mg, oral, Daily, Norman Tovar MD, 0.4 mg at 901 [Held by provider] valsartan (Diovan) tablet 80 mg, 80 mg, oral, Daily, Gabriele Yoder MD, 80 mg at 02/21/25843 Cosigned by Prabhu Chavez MD at 02/27/2025 8:19 AM EDT Associated attestation - Prabhu Chavez MD - 02/27/2025 8:19 AM EDT By using the attestations below, the signing clinician agrees that I have read and verify that thedocumentation has been personally reviewed by me and ensure that the documentation accurately reflects the encounter. GC: I performed the [place]umfield portion(s) of the service and participated in the management and confirm the resident's documentation. Please note there may be an additional personal documentation from me. * Jt Butler MD - 02/25/2025 7:26 AM EDT Images from the original note were not included. Jt Butler MD, Gulshan Huitron MD, Abbie Pena MD, Amadeo Khalil MD, Josr Sullivan MD, Laron Shanks MD Urology - Progress Note Chief Complaint: Hematuria Subjective: No acute events overnight. Patient denies fevers/chills/nausea/vomiting/chest pain/shortness of breath. Denies bladder pain or symptoms of related to catheter complication. CBI clamped yesterday. Tello draining clear, yellow UOP. Remains hypotensive, on levophed. Weight: 108 kg (237 lb 14 oz) Patient Vitals for the past 24 hrs: Temp Temp src Pulse Resp SpO2 Weight 02/25/25 0700 -- -- 95 21 98 % -- 02/25/25 0600 -- -- 91 (!) 0 100 % -- 02/25/25 0501 -- -- -- -- -- 108 kg (237 lb 14 oz) 02/25/25 0500 -- -- 90 18 97 % -- 02/25/25 0400 36.1 ??C (97 ??F) Temporal 91 14 95 % -- 02/25/25 0300 -- -- 102 20 95 % -- 02/25/25 0200 -- -- 103 20 100 % -- 02/25/25 0100 -- -- 108 20 98 % -- 02/25/25 0000 36.7 ??C (98.1 ??F) -- 110 (!) 28 96 % -- 02/24/25 2304 -- -- (!) 114 -- -- -- 02/24/25 2300 -- -- (!) 113 16 97 % -- 02/24/25 2200 -- -- (!) 122 23 98 % -- 02/24/25 2100 -- -- (!) 127 25 99 % -- 02/24/251999 36.7 ??C (98.1 ??F) -- 109 16 96 % -- 02/24/25 1900 -- -- (!) 148 17 98 % -- 02/24/25 1800 -- -- (!) 137 15 100 % -- 02/24/25 1700 -- -- (!) 142 17 98 % -- 02/24/25 1600 -- -- (!) 113 11 99 % -- 02/24/25 1500 -- -- (!) 115 13 100 % -- 02/24/25 1400 -- -- 103 16 100 % -- 02/24/25 1300 -- -- (!) 112 22 100 % -- 02/24/25 1200 -- -- (!) 112 22 100 % -- 02/24/25 1118 -- -- (!) 131 -- -- 108 kg (238 lb 1.6 oz) 02/24/25 1100 -- -- (!) 134 17 100 % -- 02/24/25 1000 -- -- (!) 135 19 98 % -- 02/24/25 0900 -- -- (!) 120 19 98 % -- 02/24/25 0800 36.2 ??C (97.2 ??F) Temporal (!) 111 21 99 % -- Intake/Output Summary (Last 24 hours) at 02/25/2025 0727 Last data filed at 02/25/2025 0700 Gross per 24 hour Intake 1528.49 ml Output 1292 ml Net 236.49 ml Results from last 7 days Lab Units 02/25/25 0506 02/24/25 0321 02/23/25 0533 SODIUM mmol/L 133* 135* 136 POTASSIUM mmol/L 4.1 4.1 4.5 CHLORIDE mmol/L 99 99 101 CO2 mmol/L BUN mg/dL 40* 52* 39* CREATININE mg/dL 1.36* 2.43* 2.27* CALCIUM mg/dL 8.1* 8.5* 8.9 Results from last 7 days Lab Units 02/25/25 0506 02/25/25 0006 02/24/25 1837 WBC AUTO 10*3/uL 8.90 10.11 12.23* HEMOGLOBIN g/dL 7.7* 8.3* 8.6* HEMATOCRIT % 22.7* 23.7* 24.4* PLATELETS AUTO 10*3/uL 172 178 182 Lab Results Component Value Date GLU 109 (H) 2019 UROBILINOGEN Normal 02/24/2025 Additional Lab/culture results: Physical Exam: General: No acute distress, A&Ox3 Pulmonary: Nonlabored breathing, equal chest rise bilaterally Cardiac: Regular rate Abdomen: soft, nondistended, nontender Extremities: Warm extremities, no calf tenderness : [address] draining clear yellow UOP Interval Imaging Findings: Assessment: Lindsay Pinto is a 59 y.o. White male who presents with: Active Problems: Gross hematuria Clear, yellow urine. No evidence of clot Hgb 7.7 Off CBI Mild bilateral hydronephrosis Cr 1.36 (2.43) UOP 1312 mL Plan: Continue tamsulosin Monitor H&H Maintain tello catheter Catheter to remain in place while patient is in ICU; will reevaluate removal after patient is out of ICU Remainder per primary team Kade Boland Medical Student, MS-4 Urology Service 7:27 AM 02/25/25 I personally saw and examined Lindsay Pinto 59 y.o. male on the same date of service as resident /student and scribe. I discussed the findings, differential diagnosis and management in detail with the patient and team. I reviewed the data and have answered all questions. My personal impression isnoted in assessment and plan section. I have edited the note which was scribed for me by scribe to document all of the above findings during this visit on my behalf. I personally performed the entireservice and the documentation is accurate and complete. * Divya Barker MD - 02/25/2025 6:17 AM EDT Images from the original note were not included. Nephrology Progress Note Patient : Lindsay Pinto; 59 y.o. Location: [id number]/3225-01 Attending: Ruth Kramer MD Admit Date: 02/18/2025 Hospital Day: 7 Reason for Consult: Acute kidney injury Subjective: History of present illness: Lindsay Pinto is a 59 y.o. male with past medical history of HTN, ENA, HFrEF, and gastric bypass who presented to an OSH for constipation and bloating. He was found to have new onset a-fib and EF of15-20% dropped from 50-55%. Mr. Pinto was admitted to hospital on 02/18/2025. [facility] A[facility] and new onset systolic CHF. He has past medical history of hypertension, severe LVH, ENA, obesity s/p gastric bypass. He complained of bloating and constipation for weeks prior to admission. He endorsed associated shortness of breath with exertion and fatigue. He denied chest pain, nausea, vomiting. Chest x-ray revealed cardiomegaly with vascular congestion. CT of the abdomen revealed ascites and anasarca. Labs showed GILLIAN and an elevated BNP over 5000.EKG showed A-fib with RVR, which was new. Xarelto and Two doses of digoxin were administered due to borderline hypotension. Echocardiogram showed new dropped EF of 15 to 20% with moderate pulmonary hypertension, moderate mitral valve regurgitation and a small pericardial effusion. As a result, patient was transferred [facility] for higher level of care. CT abdomen and pelvis on 02/22/2025 showed The right and left rectus abdominal muscles are abnormaland contain hematomas. The left is larger in size. Hemoglobin dropped from 15.4 to 14.0. Later that day, MICU was consulted after a rapid response was called around 7 AM for hypotension with a BP of53/38. On 02/22/2025, patient had another episode of hypotension this morning with a recorded blood pressure of 52/34. He was given albumin and 250 cc lactated ringer and transferred to the MICU for hemodynamic instability. At time of evaluation, hospital day 6, patient was lying in bed with the head of the bed elevated. He was in no acute distress. Discussed renal function with patient. Amiodarone infusion was running.Labs were reviewed. CHEM profile is as follows: Sodium 135, potassium 4.1, chloride 99, bicarb 28, BUN 52, creatinine 2.43. Baseline creatinine is around 1.0. CBC showed the following: WBC 16.83, hemoglobin 9.1, platelets 196. Hemoglobin has remained stable for the past 24 hours. Interval history: 02/25/25 Patient seen and examined at bedside. No acute events overnight. No complaints. Amiodarone infusionwas running. Discussed patient with vascular surgery. Cleared for procedure. Urine output was 1.3 L for the past 24 hours. Labs were reviewed. Serum creatinine improved to 1.36 today from 2.43 yesterday. Hemoglobin was 7.9this morning. Objective: Input/Output: Intake/Output Summary (Last 24 hours) at 02/25/2025 0618 Last data filed at 02/25/2025 0600 Gross per 24 hour Intake 1624.53 ml Output 1362 ml Net 262.53 ml I/O last 3 completed shifts: In: 1450.2 (13.4 mL/kg) [P.O.:550; I.V.:900.2 (8.3 mL/kg)] Out: 2705 (25 mL/kg) [Urine:2705 (0.7 mL/kg/hr)] Weight: 108 kg Vital signs: Temperature: Temp: 36.1 ??C (97 ??F) TMax: Temp (24hrs), Av.4 ??C (97.6 ??F), Min:36.1 ??C (97 ??F), Max:36.7 ??C (98.1 ??F) Respirations: Resp: (!) 0 Pulse: Heart Rate: 91 BP: BP: 98/61 BP Range: No data recorded. No data recorded. Wt Readings from Last 3 Encounters: 02/25/25 108 kg (237 lb 14 oz) 06/01/24 112 kg (247 lb) 06/05/23 111 kg (244 lb) Physical Exam Constitutional: Appearance: He is obese. He is ill-appearing. HENT: Head: Normocephalic and atraumatic. Mouth/Throat: Mouth: Mucous membranes are moist. Eyes: General: No scleral icterus. Conjunctiva/sclera: Conjunctivae normal. Cardiovascular: Rate and Rhythm: Normal rate and regular rhythm. Pulses: Normal pulses. Pulmonary: Effort: Pulmonary effort is normal. No respiratory distress. Breath sounds: Normal breath sounds. Abdominal: General: Bowel sounds are normal. There is no distension. Palpations: Abdomen is soft. Tenderness: There is no abdominal tenderness. Genitourinary: Comments: Three-way Tello catheter in place. Musculoskeletal: Right lower leg: Edema present. Left lower leg: Edema present. Skin: General: Skin is warm and dry. Coloration: Skin is not jaundiced. Neurological: Mental Status: He is alert and oriented to person, place, and time. Psychiatric: Mood and Affect: Mood normal. Behavior: Behavior normal. Current Medications: Scheduled Meds: [Held by provider] digoxin, 250 mcg, oral, Daily [Held by provider] furosemide, 40 mg, oral, q12h [Held by provider] metoprolol succinate XL, 100 mg, oral, 2 times daily metoprolol tartrate, 5 mg, intravenous, Once sodium chloride irrigation solution, 3,000 mL, irrigation, Continuous [Held by provider] spironolactone, 25 mg, oral, Daily tamsulosin, 0.4 mg, oral, Daily [Held by provider] valsartan, 80 mg, oral, Daily Continuous Infusions: amiodarone, 0.5 mg/min, Last Rate: 0.5 mg/min (02/25/25 0600) norEPINEPHrine, 0.01-2 mcg/kg/min, Last Rate: 0.02 mcg/kg/min (02/25/25 0600) PRN Meds: PRN medications: acetaminophen, diphenhydrAMINE, HYDROcodone- acetaminophen, HYDROmorphone, melatonin, sennosides-docusate sodium, Insert peripheral IV AND Saline lock IV AND sodium chloride Outpatient Medications: Medication Documentation Review Audit Reviewed by Subha Burk RN (Registered Nurse) on 02/18/25 at 1758 Medication Order Taking? Sig Documenting Provider Last Dose Status ferrous sulfate 325 (65 Fe) MG tablet [id number] No Take 65 mg by mouth in the morning and at bedtime. Patient not taking: Reported on 02/18/2025 Historical Provider, More than a month Active furosemide (Lasix) 40 mg tablet [id number] Yes Take 1 tablet (40 mg) by mouth two times daily. Megan Rosenberg MD Past Week Active labetalol (Normodyne) 200 mg tablet [id number] Yes Take 1 tablet (200 mg) by mouth before breakfast, before lunch, and before evening meal. Megan Rosenberg MD Past Week Active lisinopril 10 mg tablet [id number] Yes Take 1 tablet (10 mg) by mouth in the morning. Megan Rosenberg MD Past Week Active Labs: I have reviewed the patient's most recent labs as listed below: Chemistry: Lab Results Component Value Date NA 135 (L) 02/24/2025 K 4.1 02/24/2025 CL 99 02/24/2025 CO2 28 02/24/2025 CO2 25 2019 ANIONGAP 12 02/24/2025 BUN 52 (H) 02/24/2025 CREATININE 2.43 (H) 02/24/2025 EGFR 30.1 (L) 02/24/2025 GLU 109 (H) 2019 CALCIUM 8.5 (L) 02/24/2025 MG 2.1 02/24/2025 PHOS 5.4 (H) 02/24/2025 ALBUMIN 3.3 (L) 02/24/2025 PROT 5.2 (L) 02/24/2025 AST 24 02/24/2025 ALT 32 02/24/2025 BILITOT 3.0 (H) 02/24/2025 BILIDIR 1.1 (H) 02/22/2025 ALKPHOS 58 02/24/2025 Hematology & Iron studies: Lab Results Component Value Date WBC 8.90 02/25/2025 HGB 7.7 (L) 02/25/2025 HCT 22.7 (L) 02/25/2025 MCV 91.5 02/25/2025 PLT 172 02/25/2025 Urine chemistry Lab Results Component Value Date PROTUR 30 (A) 02/24/2025 CREATUR 170.0 02/24/2025 NAUR 15 02/24/2025 KURINE 107 02/24/2025 CLUR <15.0 (L) 02/24/2025 Urinalysis & Microscopy: Lab Results Component Value Date COLORU Yellow 02/24/2025 CLARITYU Cloudy (A) 02/24/2025 SPECGRAVU 1.036 (H) 02/24/2025 TAZ 5.5 02/24/2025 PROTUR 30 (A) 02/24/2025 LEUKOCYTESU Moderate (A) 02/24/2025 NITRITEU Negative 02/24/2025 GLUCOSEU Normal 02/24/2025 KETONESU Negative 02/24/2025 UROBILINOGEN Normal 02/24/2025 BLOODU Large (A) 02/24/2025 RBCU >20 (A) 02/24/2025 WBCU 21-50 (A) 02/24/2025 SQUAMEPIU Moderate (A) 02/24/2025 MUCUSU Moderate (A) 02/24/2025 Urine Eosinophils: No components found for: UEOS Serology & Other labs: No results found for: JANI , ANATITER , ANCA , RF , CCP , RO , HEPCAB , HEPBAGC1 , HEPBAGC2 , HEPBAGINTERP , HEPBSAG , HEPBCOREAB BNP: No results found for: BNP JANI: No results found for: JANI SPEP: Lab Results Component Value Date PROT 5.2 (L) 02/24/2025 UPEP: No components found for: LABPE C3: No results found for: C3 C4: No results found for: C4 MPO ANCA: No components found for: MPO PR3 ANCA: No components found for: PR3 Anti-GBM: No components found for: GBMABIGG Hep BsAg: No results found for: HEPBSAG Hep C AB: No results found for: HEPCAB Radiology: US renal complete Narrative: US RENAL COMPLETE 02/24/2025 9:39 AM CLINICAL INDICATIONS: Rectus sheath hematoma, acute kidney injury, bleeding COMPARISON: CT dated 02/22/2025 FINDINGS: The right kidney measures 12.4 x 5.3 x 5.6 cm, and the right renal pelvis is minimally prominent, but no calyceal dilatation is seen. The left kidney measures 12.9 x 6 x 6.2 cm without hydronephrosis. No perinephric fluid collections. Complex fluid collection seen in the pelvis near the urinary bladder measuring up to 12.8 cm in the largest diameter, consistent with known hemorrhage. The bladder is decompressed with a Tello catheter. Impression: 1. Minimal prominence of the right renal pelvis without calyceal dilatation. 2. No hydronephrosis of the left kidney. 3. 40 catheter in the bladder. 4. Complex fluid collection in the pelvis consistent with known hematoma. Electronically signed: INES JORDAN MD. ECG 12 lead Sinus tachycardia Left axis deviation Non-specific intra-ventricular conduction block Abnormal ECG When compared with ECG of 22-FEB-2025 07:05, Sinus rhythm has replaced Atrial fibrillation Confirmed by Prabhu Chavez ([id number]) on 02/24/2025 3:58:26 AM Assessment: Acute kidney injury, likely due to ATN in the setting of hypotensive episodes Hematuria Hematomas in inferior rectus sheath bilaterally Plan: Urine output was 1.3 L for the past 24 hours. Serum creatinine improving. No acute need for CVVHD at this time. Urinalysis with microscopy: RBCs were present. Hyaline casts were seen. No muddy granular casts were observed. Renal ultrasound impression: 1. Minimal prominence in the right renal pelvis without calyceal dilatation, 2. No hydronephrosis of the left kidney, 3. Complex fluid collection in the pelvis consistentwith known hematoma. Urology following for hematuria Vascular surgery following for hematoma. Anticipate exposure to IV contrast today. Counseled patient on risks and benefits of procedures with IV contrast. Initiate normal saline at 75 cc/h. Holding home Lasix at this time. Holding home spironolactone and valsartan in the setting of GILLIAN Avoid hypotensive episodes Monitor I/Os, trend creatinine Monitor electrolytes, replete as needed Avoid nephrotoxic agents Thank you for the consultation. Please do not hesitate to contact us for any questions/concerns. Wewill continue to follow along with you. Divya BARKER MD Nephrology Fellow PGY 4 - [facility] Nephrology Pager: [phone] Phone (7am - 4pm): [phone] Cosigned by Matilda Sheppard MD at 02/25/2025 5:48 PM EDT Associated attestation - Matilda Sheppard MD - 02/25/2025 5:48 PM EDT By using the attestations below, the signing clinician agrees that I have read and verify that thedocumentation has been personally reviewed by me and ensure that the documentation accurately reflects the encounter. GC: I personally saw this patient on the day of the encounter, performed the brumfield portion(s) of the service and participated in the management and confirm the resident's documentation. Please note there may be an additional personal documentation from me. * Norm North MD - 02/24/2025 3:14 PM EDT Images from the original note were not included. Medical ICU Progress Note Patient - Lindsay Pinto Age - 59 y.o. - 1965 Date of Admission - 02/18/2025 5:46 PM HPI/Hospital Course Lindsay Pinto is a 59 y.o. male with past medical history of HTN, ENA, HFrEF, and gastric bypass who presented to an OSH for constipation and bloating. He was found to have new onset a-fib and EF of15-20% dropped from 50-55%. Initial HPI from hospitalist note on 02/18: Lindsay Pinto is an 59 y.o. 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 Patient initially presenting to [place] with bloating and constipation. He states that for the past few weeks he has been having abdominal swelling, bloating. He states associated shortness of breath with exertion. He denies chest pain, nausea, vomiting. He does state mild fatigue. He had a CXR completed showing cardiomegaly with vascular congestion. CT of the abdomen was completed showing ascites and anasarca. Labs show a mild GILLIAN and an elevated BNP over 5000. EKG was completed showing A-fib with RVR which is new for the patient. He was given2 doses of digoxin due to borderline hypotension and given a dose of Xarelto. Echocardiogram was completed showing a newly dropped EF of 15 to 20% with moderate pulmonary hypertension, moderate mitral valve regurgitation and a small pericardial effusion. He was transferred [facility] for higher level of care. Patient does follow with cardiology outpatient for LVH. Per cardiology note, the echocardiogram performed on 05/14/2023 showed LVH with an improvement in EF to 50-55%. His latest echocardiogram did show a significant drop in EF. Cardiology is onboard inpatient for his new-onset atrial fibrillation with RVR. Patient was intially treated with a Cardizem drip; however, it was discontinue due to hypot ension. He has been treated with Toprol XL 100 mg BID and digoxin 250 mcg daily. He is scheduled for BERNARDINO and cardioversion today. CT abdomen and pelvis was performed yesterday for ongoing lower abdominal pain. It did reveal The right and left rectus abdominal muscles are abnormal and contain hematomas. The left is larger in size. Hemoglobin did drop from 15.4 to 14.0, but most recent hemoglobin this morning is 14.5 with a hematocrit of 42.9. MICU was consulted after a rapid response was called around 7 AM for hypotension with a BP of 53/38. He was seen and examined at bedside this morning. Blood pressure is now stable with the most recentpressure of 110/72. The patient is speaking in full sentences. He denies any CP or SOB. He also denies lightheadedness, dizziness, or nausea. He endorses continued abdominal pain that has been present for the past two days. He states that is started after he took a shower and felt tired, so he jumped on his bed. He then felt a sudden pain. He does endorse constipation. Last bowel movement was twodays ago. Patient had another episode of hypotension this morning with a recorded blood pressure of 52/34. Hewas given albumin and 250 cc lactated ringer and transferred to the MICU for hemodynamic instability. SUBJECTIVE Patient was seen and examined at bedside. He denies CP, dizziness, fatigue, or SOB. He endorses abdominal pain that is improving. He also denies acid reflux. He has been having hiccups. Heart rate in the 140s. Blood pressure has been mostly systolic in 90s-100s. Patient made around 2 L of urine yesterday, net -1.6 L yesterday. Consulting Service(s): Vascular surgery Urology Hospital Course: 02/22: Heparin was dropped due to expanding hematomas in the bilateral inferior rectus sheath and new hematoma in the extraperitoneal space of the anterior pelvis seen on CT abdomen and pelvis. Hemoglobin dropped from 14.5 to 11.4. Vascular surgery was consulted and recommended monitoring hemoglobin. Urology was consulted for gross hematuria. No acute intervention at this time. Patient remains on an amiodarone drip. 02/23: Patient was started on Levophed. Renal function is worsening. Hemoglobin has stabilized at 10.9. No plans to cardiovert as patient is not on anticoagulation. 02/24: Patient is off pressors. Cardiology started digoxin 250 mcg q6 IV. Hemoglobin has been slowlydown trending, will continue to monitor. Nephrology consulted for worsening GILLIAN, likely secondary to ATN. OBJECTIVE Vitals height is 1.727 m (5' 7.99 ) and weight is 108 kg (238 lb 1.6 oz). His temporal temperature is 36.2??C (97.2 ??F). His blood pressure is 98/61 and his pulse is 115 (abnormal). His respiration is 13 and oxygen saturation is 100%. Temp: [36.2 ??C (97.2 ??F)-36.6 ??C (97.9 ??F)] 36.2 ??C (97.2 ??F) Heart Rate: [103-147] 115 Resp: [1-36] 13 BP: (98-114)/(61-72) 98/61 Arterial Line BP 1: (74-129)/(46-72) 110/56 Physical Exam: Physical Exam Vitals and nursing note reviewed. Constitutional: General: He is not in acute distress. Appearance: Normal appearance. HENT: Head: Normocephalic and atraumatic. Eyes: Extraocular Movements: Extraocular movements intact. Conjunctiva/sclera: Conjunctivae normal. Cardiovascular: Rate and Rhythm: Tachycardia present. Rhythm irregularly irregular. Pulmonary: Effort: Pulmonary effort is normal. Breath sounds: Normal breath sounds. Abdominal: General: Bowel sounds are normal. Palpations: Abdomen is soft. Tenderness: There is abdominal tenderness (LLQ and RLQ). Musculoskeletal: General: Normal range of motion. Right lower leg: No edema. Left lower leg: No edema. Skin: General: Skin is warm and dry. Findings: No rash. Neurological: General: No focal deficit present. Mental Status: He is alert and oriented to person, place, and time. Weight: Admission weight: 118 kg (259 lb 12.8 oz) Wt Readings from Last 1 Encounters: 02/24/25 108 kg (238 lb 1.6 oz) Input/Output: Intake/Output Summary (Last 24 hours) at 02/24/2025 1514 Last data filed at 02/24/2025 1500 Gross per 24 hour Intake 832.65 ml Output 1965 ml Net -1132.35 ml Ventilator: Lab Results ABG: CBC: Results from last 7 days Lab Units 02/24/25 1243 02/24/25 0321 02/23/25 2350 WBC AUTO 10*3/uL 16.83* 14.22* 14.02* HEMOGLOBIN g/dL 9.1* 9.0* 8.8* HEMATOCRIT % 26.1* 26.4* 25.4* PLATELETS AUTO 10*3/uL 196 173 171 Coagulation: Results from last 7 days Lab Units 02/22/25 1149 02/21/25 0355 02/20/25 0939 02/19/25 0819 02/19/25 0125 02/18/25 1846 APTT Seconds -- 117.9* 169.6* 154.5* < > 32.7 INR 1.47* -- -- -- -- 1.47* < > = values in this interval not displayed. Metabolic Panel: Results from last 7 days Lab Units 02/24/25 0321 02/23/25 0533 02/23/25 0007 02/22/25 1149 02/22/25 0658 SODIUM mmol/L 135* 136 137 < > -- POTASSIUM mmol/L 4.1 4.5 4.5 < > -- CHLORIDE mmol/L 99 101 102 < > -- CO2 mmol/L 28 24 25 < > -- BUN mg/dL 52* 39* 35* < > -- CREATININE mg/dL 2.43* 2.27* 2.01* < > -- GLUCOSE mg/dL 104* 118* 128* < > -- CALCIUM mg/dL 8.5* 8.9 9.1 < > -- MAGNESIUM mg/dL 2.1 2.0 -- -- 1.8* < > = values in this interval not displayed. Liver Panel: Results from last 7 days Lab Units 02/24/25 0321 02/23/25 0533 02/22/25 1149 ALBUMIN g/dL 3.3* 3.5 4.0 BILIRUBIN TOTAL mg/dL 3.0* 3.4* 5.1* ALT U/L 32 32 28 AST U/L 24 25 22 ALK PHOS U/L 58 61 70 Glucose: Hgb A1c: Cardiac: Results from last 7 days Lab Units 02/18/25 1846 BNP pg/mL 491* Anemia Labs: Lipid Panel: No lab exists for component: CHOLHDL Urine Labs: Lab Results Component Value Date WBCU 21-50 (A) 02/24/2025 UROBILINOGEN Normal 02/24/2025 Additional Labs: No lab exists for component: LACTICACID , PROCALCITON Radiology US renal complete Narrative: US RENAL COMPLETE 02/24/2025 9:39 AM CLINICAL INDICATIONS: Rectus sheath hematoma, acute kidney injury, bleeding COMPARISON: CT dated 02/22/2025 FINDINGS: The right kidney measures 12.4 x 5.3 x 5.6 cm, and the right renal pelvis is minimally prominent, but no calyceal dilatation is seen. The left kidney measures 12.9 x 6 x 6.2 cm without hydronephrosis. No perinephric fluid collections. Complex fluid collection seen in the pelvis near the urinary bladder measuring up to 12.8 cm in the largest diameter, consistent with known hemorrhage. The bladder is decompressed with a Tello catheter. Impression: 1. Minimal prominence of the right renal pelvis without calyceal dilatation. 2. No hydronephrosis of the left kidney. 3. 40 catheter in the bladder. 4. Complex fluid collection in the pelvis consistent with known hematoma. Electronically signed: INES JORDAN MD. ECG 12 lead Sinus tachycardia Left axis deviation Non-specific intra-ventricular conduction block Abnormal ECG When compared with ECG of 22-FEB-2025 07:05, Sinus rhythm has replaced Atrial fibrillation Confirmed by Prabhu Chavez ([id number]) on 02/24/2025 3:58:26 AM Cultures Lab Results Component Value Date BLOOD CULTURE No growth at 18-24 hours 02/23/2025 Medications Scheduled: digoxin, 250 mcg, intravenous, q6h [Held by provider] digoxin, 250 mcg, oral, Daily [Held by provider] furosemide, 40 mg, oral, q12h [Held by provider] metoprolol succinate XL, 100 mg, oral, 2 times daily metoprolol tartrate, 5 mg, intravenous, Once sodium chloride irrigation solution, 3,000 mL, irrigation, Continuous [Held by provider] spironolactone, 25 mg, oral, Daily tamsulosin, 0.4 mg, oral, Daily [Held by provider] valsartan, 80 mg, oral, Daily Infusions: amiodarone, 0.5 mg/min, Last Rate: 0.5 mg/min (02/24/25 1500) norEPINEPHrine, 0.01-2 mcg/kg/min, Last Rate: 0.02 mcg/kg/min (02/24/25 1500) As Needed: PRN medications: acetaminophen, diphenhydrAMINE, HYDROcodone-acetaminophen, HYDROmorphone, melatonin, sennosides-docusate sodium, Insert peripheral IV AND Saline lock IV AND sodium chloride Assessment & Plan Circulatory shock due to a-fib and acute blood loss A-line and CVC are in place. Currently off pressors, did require Levophed 02/23 Monitor hemodynamic stability New-onset A-fib with RVR with left bundle branch block S/p Cardizem drip discontinued due to hypotension Heparin infusion since 02/18-02/22, stopped due to hematoma Toprol-XL and digoxin held. No plan for cardioversion as patient is not on anticoagulation at this time. Continue amiodarone drip. Start digoxin 250 mcg q6 IV [id number] score of 2. Cardiology on board, appreciate recommendations Acute decompensated systolic heart failure, EF of 15% Cardiology will plan for ischemic work-up once rhythm is normalized Holding valsartan, metoprolol, and spironolactone 02/22 due to hypotension Holding diuresis Plan to transition to Entresto and add Farxiga once blood pressure improves GILLIAN likely prerenal secondary to atrial fibrillation and hypovolemia, progressed to acute tubular necrosis Creatinine is rising, BUN/CR 21.4. Plan for urine studies: Urinalysis with microscopy, osmolality sodium, chloride, potassium, protein Obtain renal ultrasound Monitor I/Os, trend creatinine Nephrology on board, appreciate recommendations. No acute CVVHD at this time Gross hematuria S/p CBI 02/23 Monitor urine output Urology on board, appreciate recommendations Bilateral rectus sheath hematoma larger on left, in the setting of anticoagulation Trend H and H q6, given CT findings of hematoma. Hemoglobin is slowly trending down 14.5 -> 11.4 -> 10.4 -> 9.0. Transfuse Hgb < 7. Vascular surgery on board, appreciate recommendations Leukocytosis, likely reactive WBC of 16.83. Lactate on 02/22 was 2.2, repeat decreased to 1.8 Peripheral blood cultures x2 02/22, no growth to date Peripheral blood cultures x2 02/23, no growth to date Will follow CT chest shows bibasilar consolidation, atelectasis, pleural effusions. Small to moderate pericardial effusion. Jaundice with hyperbilirubinemia Total bilirubin trending down 3.0 down from 4.8. Total bilirubin 2.4 5 years ago LFTs within normal limits HTN ENA Obesity s/p gastric bypass surgery DVT prophylaxis: None GI prophylaxis: None Lines: Peripheral IV, arterial line left brachial, CVC left IJ Diet: NPO Code status: Full Summer Alexi, MS4 [facility] Norm North MD Critical Care Fellow PGY 6 This note was completed using a voice bottle inspector system. Every effort was made to ensure accuracy. However, inadvertent computerized bottle inspector errors may be present. Cosigned by Ruth Kramer MD at 02/25/2025 9:24 AM EDT Associated attestation - Ruth Kramer MD - 02/25/2025 9:24 AM EDT The patient was seen and examined with the resident/fellow on the same date of service, I discussedthe findings and therapeutic plan and agree with the documentation, assessment and plan as above except for any edits/updates below. Critical Care services were required for the patient due to critical condition: Circulatory shock due to Afib and acute blood loss New onset Afib with RVR and LBBB Decompensated CHFrEF 15% Bilateral rectus sheath hematoma spontaneous in the setting of anticoagulation Hyperbilirubinemia GILLIAN - ATN ENA Morbid obesity s/p gastric bypass I personally provided direct critical care services consisting of: Continue Levophed to keep MAP > 65 mmHg Monitor H and H and transfused for hemoglobin less than 7, dropped to 9.7, will cross and match 2 units PRBC IR and vascular surgery consulted, conservative management Continue Hold anticoagulation Continue Amiodarone infusion Hold GDMT, right and left heart cath once stable Trend Bilirubin Monitor kidney function and electrolytes, suspect ATN due to hypotension Nephrology consult DVT and GI prophylaxis Critical Care minutes were 35, which excludes time performing separately billed procedures, updating family, and teaching. * VITO Parry - 02/24/2025 1:19 PM EDT Ashli rec'd call from [facility] Reina [phone] ext [phone] She would like discharge summary faxed to her at discharge. ASHLI advised that she will note in our communication tool for discharging SW. Reina is also available is assistance needed for discharge planning. * Mariana Amos PA-C - 02/24/2025 10:56 AM EDT Images from the original note were not included. [facility] Vascular Surgery DAILY PROGRESS NOTE Subjective Patient seen and examined at bedside. Has not required any blood transfusions. Remains on amio gtt for afib. Reports improvement in abdominal pain. Hgb 9.0 this morning, decreased from yesterday. Hgb: 9.0, 8.8. 9.9, 10.4, 10.9, 11.1 Objective Vitals: Vitals: 02/24/25 0700 BP: Pulse: (!) 145 Resp: 20 Temp: SpO2: 98% I/O last 3 completed shifts: In: 872.8 (8 mL/kg) [I.V.:872.8 (8 mL/kg)] Out: 2211 (20.3 mL/kg) [Urine:2211 (0.6 mL/kg/hr)] Weight: 108.7 kg I/O this shift: In: 116.7 [I.V.:116.7] Out: 70 [Urine:70] Physical Exam Constitutional: Appearance: Normal appearance. HENT: Head: Normocephalic and atraumatic. Cardiovascular: Rate and Rhythm: Normal rate and regular rhythm. Abdominal: General: There is no distension. Palpations: Abdomen is soft. Tenderness: There is no abdominal tenderness. Skin: General: Skin is warm and dry. Neurological: General: No focal deficit present. Mental Status: He is alert and oriented to person, place, and time. Mental status is at baseline. Psychiatric: Mood and Affect: Mood normal. Behavior: Behavior normal. Thought Content: Thought content normal. Vascular Exam Vascular: RLE Pulses: Femoral: +2 DP: PT: Edema: none LLE Pulses: Femoral: +2 DP: PT: Edema: none RUE Pulses: Radial: 2+ Edema: none LUE Pulses: Radial: 2+ Edema: none Labs: Results from last 7 days Lab Units 02/24/25 0321 02/23/25 2350 02/23/25 1830 02/23/25 1115 02/23/25 0533 WBC AUTO 10*3/uL 14.22* 14.02* 16.62* 15.65* 14.82* HEMOGLOBIN g/dL 9.0* 8.8* 9.9* 10.4* 10.9* HEMATOCRIT % 26.4* 25.4* 28.0* 29.5* 31.1* PLATELETS AUTO 10*3/uL 173 171 192 200 214 Results from last 7 days Lab Units 02/24/25 0321 02/23/25 0533 02/23/25 0007 02/22/25 1149 02/21/25 0355 SODIUM mmol/L 135* 136 137 139 139 POTASSIUM mmol/L 4.1 4.5 4.5 4.5 4.0 CO2 mmol/L 28 24 25 24 26 BUN mg/dL 52* 39* 35* 27* 16 CREATININE mg/dL 2.43* 2.27* 2.01* 1.43* 0.99 Results from last 7 days Lab Units 02/22/25 1149 02/18/25 1846 INR 1.47* 1.47* Medications: [Held by provider] digoxin, 250 mcg, oral, Daily [Held by provider] furosemide, 40 mg, oral, q12h [Held by provider] metoprolol succinate XL, 100 mg, oral, 2 times daily metoprolol tartrate, 5 mg, intravenous, Once sodium chloride irrigation solution, 3,000 mL, irrigation, Continuous [Held by provider] spironolactone, 25 mg, oral, Daily tamsulosin, 0.4 mg, oral, Daily [Held by provider] valsartan, 80 mg, oral, Daily amiodarone, 0.5 mg/min, Last Rate: 0.5 mg/min (02/24/25 0700) norEPINEPHrine, 0.01-2 mcg/kg/min, Last Rate: Stopped (02/23/25 1400) Imaging: US renal complete Narrative: US RENAL COMPLETE 02/24/2025 9:39 AM CLINICAL INDICATIONS: Rectus sheath hematoma, acute kidney injury, bleeding COMPARISON: CT dated 02/22/2025 FINDINGS: The right kidney measures 12.4 x 5.3 x 5.6 cm, and the right renal pelvis is minimally prominent, but no calyceal dilatation is seen. The left kidney measures 12.9 x 6 x 6.2 cm without hydronephrosis. No perinephric fluid collections. Complex fluid collection seen in the pelvis near the urinary bladder measuring up to 12.8 cm in the largest diameter, consistent with known hemorrhage. The bladder is decompressed with a Tello catheter. Impression: 1. Minimal prominence of the right renal pelvis without calyceal dilatation. 2. No hydronephrosis of the left kidney. 3. 40 catheter in the bladder. 4. Complex fluid collection in the pelvis consistent with known hematoma. Electronically signed: INES JORDAN MD. ECG 12 lead Sinus tachycardia Left axis deviation Non-specific intra-ventricular conduction block Abnormal ECG When compared with ECG of 22-FEB-2025 07:05, Sinus rhythm has replaced Atrial fibrillation Confirmed by Prabhu Chavez ([id number]) on 02/24/2025 3:58:26 AM Assessment/Plan Lindsay Pinto is a 59 y.o. male presenting with new onset afib with RVR and acute systolic CHF with EF of 15-20% now with bilateral inferior rectus sheath hematoma and zone 3 RP hematoma measuring 15.1 x 7.9 cm on the left and 5.8 x 2.7 cm on the right. Patient is hemodynamically stable blood pressure. No blood needed since admission. Hemoglobin stable. Continue conservative management; no acute surgical intervention Continue to trend HH every 6 hours. Stable at 9.0 this morning but has been decreasing. May need torepeat imaging if hgb continues to decrease Hold hep gtt as able Monitor abdominal exam Appreciate care per ICU Mariana Amos PA-C Vasular Surgery [facility] Wound Care x 1983 * Julio Barnard MD - 02/24/2025 10:17 AM EDT Images from the original note were not included. . Cardiology Progress Note Subjective Pt denies chest pain, shortness of breath, nausea, vomiting, diarrhea. Vitally, the patient is afebrile but remains in A fib w/ RVR HR 120s-160s with SBP 80s-90s. HPI: Lindsay Pinto is a 59 y.o. male with a PMHx of hypertension, severe LVH, ENA, obesity s/p gastric bypass presents as a direct mission for [facility] with progressively worsening dyspnea, abdominal swelling and anasarca in the setting of new onset A-fib as well as new onset systolic CHF. He had a CXR completed showing cardiomegaly with vascular congestion. CT of the abdomen was completed showing ascites and anasarca. Labs show a mild GILLIAN and an elevated BNP over 5000. EKG was completed showing A-fib with RVR which is new for the patient. He was given 2 doses of digoxin due to borderline hypotension and given a dose of Xarelto. Echocardiogram was completed showing a newly dropped EF of 15 to 20% with moderate pulmonary hypertension, moderate mitral valve regurgitation and a small pericardial effusion. He was transferred [facility] for higher level of care. At [facility], he was started on Lasix 40 mg IV BID and he has made nearly net negative 3L of urine. Vitally, he is afebrile, tachycardic in the 100s, BP 100/63, satting well on RA. Cardiac history: Severe LVH per 2019 Echo that showed LV dysfunction, EF 40% and Echo 05/14/23 showed improvement in EF 50-55%, aortic dilation, mitral valve regurg Cardiac workup: ECHO 05/14/2023: Global LV systolic function is low normal limits; visually estimated EF 50-55%. RVis normal in size and function. Normal diastolic function. Biatrial enlargement. Mild mitral regurg. Aortic root is mildly dilated. Trivial pericardial effusion is seen Updates 02/21/2025: Patient is doing well his edema is almost resolved denies any chest pain or shortness of breath he remains in A-fib with RVR 02/22/2025: Overnight, hypotensive to 80s-90s systolic after valsartan 80 mg was added. Patient otherwise doingwell. His edema has nearly resolved denies any chest pain or shortness of breath. He remains in A-fib with RVR. BERNARDINO cardioversion today. Labs show improving leukocytosis 10.5 from 12.5. BMP pending. Two rectus sheath hematomas noted on CTAP on 02/21. Objective Current Medications[1] Objective: Patient Vitals for the past 24 hrs: BP Temp Temp src Pulse Resp SpO2 02/24/25 0700 -- -- -- (!) 145 20 98 % 02/24/25 0600 -- -- -- (!) 123 (!) 30 100 % 02/24/25 0515 -- -- -- (!) 133 19 98 % 02/24/25 0500 -- -- -- (!) 136 22 99 % 02/24/25 0420 -- 36.6 ??C (97.9 ??F) Temporal (!) 126 22 99 % 02/24/25 0400 -- -- -- (!) 122 -- 98 % 02/24/25 0300 -- -- -- (!) 128 14 99 % 02/24/25 0205 -- -- -- 110 22 97 % 02/24/25 0100 -- -- -- (!) 111 19 98 % 02/24/25 0029 98/61 -- -- (!) 134 -- -- 02/24/25 0000 -- 36.5 ??C (97.7 ??F) Temporal (!) 129 21 98 % 02/23/25 2300 -- -- -- (!) 112 14 99 % 02/23/25 2230 -- -- -- 108 15 100 % 02/23/25 2200 -- -- -- 108 14 100 % 02/23/25 2123 114/72 -- -- (!) 145 -- -- 02/23/25 2100 -- -- -- (!) 147 21 98 % 02/23/25 2000 -- -- -- (!) 147 16 96 % 02/23/25 1930 -- 36.6 ??C (97.9 ??F) Temporal (!) 133 (!) 1 100 % 02/23/25 1900 -- -- -- (!) 135 21 -- 02/23/25 1800 -- -- -- (!) 141 21 97 % 02/23/25 1700 -- -- -- (!) 137 (!) 28 99 % 02/23/25 1600 -- -- -- (!) 124 (!) 36 100 % 02/23/25 1500 -- -- -- (!) 144 25 98 % 02/23/25 1400 -- -- -- (!) 150 21 99 % 02/23/25 1300 -- -- -- (!) 137 24 100 % 02/23/25 1200 -- -- -- (!) 150 (!) 0 98 % 02/23/25 1100 -- -- -- (!) 147 23 100 % Physical Examination: Physical Exam Constitutional: Appearance: Normal appearance. Cardiovascular: Rate and Rhythm: Tachycardia present. Rhythm irregular. Pulses: Normal pulses. Heart sounds: Normal heart sounds. Pulmonary: Effort: Pulmonary effort is normal. No respiratory distress. Breath sounds: Normal breath sounds. Abdominal: General: Bowel sounds are normal. There is no distension. Palpations: Abdomen is soft. Musculoskeletal: Right lower leg: Edema present. Left lower leg: Edema present. Neurological: General: No focal deficit present. Mental Status: He is oriented to person, place, and time. Relevant Lab Results Encounter Date: 02/18/25 ECG 12 lead Result Value Ventricular Rate 148 Atrial Rate 148 KS Interval 136 QRS DURATION 166 QT Interval 306 QTC CALCULATION(BAZETT) 480 P Moselle 4 R-Moselle -50 T Wave Moselle 159 Impression Sinus tachycardia Left axis deviation Non-specific intra-ventricular conduction block Abnormal ECG When compared with ECG of 22-FEB-2025 07:05, Sinus rhythm has replaced Atrial fibrillation Confirmed by Prabhu Chavez ([id number]) on 02/24/2025 3:58:26 AM No results found for: CKTOTAL , CKMB , CKMBINDEX , TROPONINI No echocardiogram results found for the past 12 months No nuclear medicine results found for the past 12 months Relevant Imaging Results ECG 12 lead Sinus tachycardia Left axis deviation Non-specific intra-ventricular conduction block Abnormal ECG When compared with ECG of 22-FEB-2025 07:05, Sinus rhythm has replaced Atrial fibrillation Confirmed by Prabhu Chavez ([id number]) on 02/24/2025 3:58:26 AM ASSESSMENT Acute HFrEF EF 10 to 15% probably tachycardia mediated with history of heart failure with improved ejection fraction persistent A-fib with RVR [id number] 2 Worsening GILLIAN Acute blood loss anemia Small pericardial effusion on Echo Primary hypertension ENA S/p gastric bypass PLAN CTAP on 02/22 showed increase in size of bilateral inferior rectus sheath hematomas (left larger than right) with new large hematoma just posterior to the rectus sheath Due to evidence of active bleeding, heparin drip was discontinued and BERNARDINO cardioversion was deferred. Continue amiodarone drip for A fib management. Start digoxin 250 mcg q6 IV. Cardiology will continue to follow This note was, at least in part, completed using a voice bottle inspector system. Every effort was made to ensure accuracy. However, inadvertent computerized bottle inspector errors may be present. Julio Barnard MD [1] Current Facility-Administered Medications: acetaminophen (Tylenol) tablet 650 mg, 650 mg, oral, q6h PRN, Carolmadison Weberkl, VACATION PLANNER, 650 mg at 244 [COMPLETED] amiodarone in dextrose,iso-osm (Nexterone) IVPB 150 mg, 150 mg, intravenous, Once, Stopped at 02/22/25 1345 FOLLOWED BY [] amiodarone (Nexterone) infusion, 1 mg/min, intravenous, Continuous, Stopped at 02/22/25 1945 FOLLOWED BY amiodarone (Nexterone) infusion, 0.5 mg/min,intravenous, Continuous, Norm North MD, Last Rate: 16.67 mL/hr at 02/24/25 0700, 0.5 mg/min at 02/24/25 0700 [Held by provider] digoxin (Lanoxin) tablet 250 mcg, 250 mcg, oral, Daily, Susan Mcpherson MD, 250 mcgat 02/21/25 0844 diphenhydrAMINE (BENADryl) capsule 25 mg, 25 mg, oral, q8h PRN, Jordan Pitts MD, 25 mg at 02/24/25 0901 [Held by provider] furosemide (Lasix) tablet 40 mg, 40 mg, oral, q12h, Gabriele Yoder MD, 40 mg at 02/21/25 2255 HYDROcodone-acetaminophen (Montrose) 5-325 mg per tablet 1 tablet, 1 tablet, oral, q6h PRN, Suleiman Corcoran MD, 1 tablet at 02/21/25 2240 HYDROmorphone (Dilaudid) injection 0.2 mg, 0.2 mg, intravenous, q4h PRN, Norm North MD, 0.2 mg at 02/22/25 1909 melatonin tablet 5 mg, 5 mg, oral, Nightly PRN, Carol Carter CNP [Held by provider] metoprolol succinate XL (Toprol-XL) 24 hr tablet 100 mg, 100 mg, oral, 2 times daily, Gabriele Yoder MD, 100 mg at 02/21/25 1630 metoprolol tartrate (Lopressor) injection 5 mg, 5 mg, intravenous, Once, Gabriele Yoder MD norepinephrine in sodium chloride 0.9 % (Levophed) 8 mg/250ml infusion, 0.01-2 mcg/kg/min, intravenous, Continuous, Norm North MD, Stopped at 02/23/25 1400 sennosides-docusate sodium (Gertrude-Colace) 8.6-50 mg per tablet 1 tablet, 1 tablet, oral, Daily PRN, Norm North MD, 1 tablet at 02/23/25 0951 Insert peripheral IV, , , Once AND Saline lock IV, , , Once AND sodium chloride flush 10 mL, 10 mL, intravenous, q8h PRN, Carol Carter, HARINI sodium chloride irrigation solution 0.9 % 3,000 mL, 3,000 mL, irrigation, Continuous, Lo Vasquez MD, 3,000 mL at 02/23/25 181 [Held by provider] spironolactone (Aldactone) tablet 25 mg, 25 mg, oral, Daily, Susan Mcpherson MD, 25mg at 02/21/25 0843 tamsulosin (Flomax) 24 hr capsule 0.4 mg, 0.4 mg, oral, Daily, Norman Tovar MD, 0.4 mg at 901 [Held by provider] valsartan (Diovan) tablet 80 mg, 80 mg, oral, Daily, Gabriele Yoder MD, 80 mg at 02/21/25 0844 Cosigned by Prabhu Chavez MD at 02/27/2025 8:18 AM EDT Associated attestation - Prabhu Chavez MD - 02/27/2025 8:18 AM EDT By using the attestations below, the signing clinician agrees that I have read and verify that thedocumentation has been personally reviewed by me and ensure that the documentation accurately reflects the encounter. GC: I performed the [place]umfield portion(s) of the service and participated in the management and confirm the resident's documentation. Please note there may be an additional personal documentation from me. * Jt Butler MD - 02/24/2025 7:45 AM EDT Images from the original note were not included. Jt Butler MD, Gulshan Huitron MD, Abbie Pena MD, Amadeo Khalil MD, Josr Sullivan MD, Laron Shanks MD Urology - Progress Note Chief Complaint: Hematuria Subjective: No acute events overnight. Patient denies fevers/chills/nausea/vomiting/chest pain/shortness of breath. Patient did not have any complaints. Denies bladder pain. Tello catheter exchanged yesterday for a 22 Latvian three-way placed. Draining clear yellow urine output this morning. CBI clamped this morning. Weight: 109 kg (239 lb 10.2 oz) Patient Vitals for the past 24 hrs: BP Temp Temp src Pulse Resp SpO2 Weight 02/24/25 0700 -- -- -- (!) 145 20 98 % -- 02/24/25 0600 -- -- -- (!) 123 (!) 30 100 % -- 02/24/25 0515 -- -- -- (!) 133 19 98 % -- 02/24/25 0500 -- -- -- (!) 136 22 99 % -- 02/24/25 0420 -- 36.6 ??C (97.9 ??F) Temporal (!) 126 22 99 % -- 02/24/25 0400 -- -- -- (!) 122 -- 98 % -- 02/24/25 0300 -- -- -- (!) 128 14 99 % -- 02/24/25 0205 -- -- -- 110 22 97 % -- 02/24/25 0100 -- -- -- (!) 111 19 98 % -- 02/24/25 0029 98/61 -- -- (!) 134 -- -- -- 02/24/25 0000 -- 36.5 ??C (97.7 ??F) Temporal (!) 129 21 98 % -- 02/23/252299 -- -- -- (!) 112 14 99 % -- 02/23/252229 -- -- -- 108 15 100 % -- 02/23/252199 -- -- -- 108 14 100 % -- 02/23/252122 114/72 -- -- (!) 145 -- -- -- 02/23/252099 -- -- -- (!) 147 21 98 % -- 02/23/251999 -- -- -- (!) 147 16 96 % -- 02/23/25 1930 -- 36.6 ??C (97.9 ??F) Temporal (!) 133 (!) 1 100 % -- 02/23/25 1900 -- -- -- (!) 135 21 -- -- 02/23/25 1800 -- -- -- (!) 141 21 97 % -- 02/23/25 1700 -- -- -- (!) 137 (!) 28 99 % -- 02/23/25 1600 -- -- -- (!) 124 (!) 36 100 % -- 02/23/25 1500 -- -- -- (!) 144 25 98 % -- 02/23/25 1400 -- -- -- (!) 150 21 99 % -- 02/23/25 1300 -- -- -- (!) 137 24 100 % -- 02/23/25 1200 -- -- -- (!) 150 (!) 0 98 % -- 02/23/25 1100 -- -- -- (!) 147 23 100 % -- 02/23/25 1000 -- -- -- (!) 148 24 99 % -- 02/23/25 0900 -- -- -- (!) 147 15 99 % -- 02/23/25 0802 -- -- -- -- -- -- 109 kg (239 lb 10.2 oz) 02/23/25 0800 -- -- -- (!) 146 22 98 % -- Intake/Output Summary (Last 24 hours) at 02/24/2025 0745 Last data filed at 02/24/2025 0700 Gross per 24 hour Intake 690.2 ml Output 2183 ml Net -1492.8 ml Results from last 7 days Lab Units 02/24/25 0321 02/23/25 0533 02/23/25 0007 SODIUM mmol/L 135* 136 137 POTASSIUM mmol/L 4.1 4.5 4.5 CHLORIDE mmol/L 99 101 102 CO2 mmol/L 28 24 25 BUN mg/dL 52* 39* 35* CREATININE mg/dL 2.43* 2.27* 2.01* CALCIUM mg/dL 8.5* 8.9 9.1 Results from last 7 days Lab Units 02/24/25 0321 02/23/25 2350 02/23/25 1830 WBC AUTO 10*3/uL 14.22* 14.02* 16.62* HEMOGLOBIN g/dL 9.0* 8.8* 9.9* HEMATOCRIT % 26.4* 25.4* 28.0* PLATELETS AUTO 10*3/uL 173 171 192 Lab Results Component Value Date GLU 109 (H) 2019 UROBILINOGEN Normal 02/22/2025 Additional Lab/culture results: Physical Exam: General: No acute distress, A&Ox3 Pulmonary: Nonlabored breathing, equal chest rise bilaterally Cardiac: Regular rate Abdomen: soft, nondistended, nontender Extremities: Warm extremities, no calf tenderness : Three-way Tello in place, draining clear yellow urine output Interval Imaging Findings: @[id number]@ Assessment: Lindsay Pinto is a 59 y.o. White male who presents with: Active Problems: Gross hematuria Clear, yellow urine. No evidence of clot Hemoglobin 9.0 CBI stopped this morning Mild bilateral hydronephrosis Cr 2.43 (2.27) UOP 2,113 mL Plan: Gross hematuria Monitor H&H CBI clamped this morning Will evaluate for hematuria later today Mild bilateral hydronephrosis Maintain Tello catheter Catheter to remain in place while patient is in ICU; will reevaluate removal after patient is out of ICU Will consider renal ultrasound tomorrow pending trend of creatinine and I's/O Remainder per primary team Kade Boland Medical Student, MS-4 Urology Service 7:45 AM 02/24/25 I personally saw and examined Lindsay Pinto 59 y.o. male on the same date of service as resident /student and scribe. I discussed the findings, differential diagnosis and management in detail with the patient and team. I reviewed the data and have answered all questions. My personal impression isnoted in assessment and plan section. I have edited the note which was scribed for me by scribe to document all of the above findings during this visit on my behalf. I personally performed the entireservice and the documentation is accurate and complete. * Lo Vasquez MD - 02/24/2025 6:00 AM EDT Images from the original note were not included. [facility] Department of Urology DAILY PROGRESS NOTE Subjective No acute events overnight, patient has remained stable. No bladder spasms or catheter related complications. Patient is resting comfortably Tello was upsized to 22 Latvian three-way and patient was started on CBI with immediate pink to clear return. CBI was clamped this morning. Patient denies any nausea, vomiting, chest pain, abdominal pain. Objective Vitals: Vitals: 02/24/25 0700 BP: Pulse: (!) 145 Resp: 20 Temp: SpO2: 98% I/O last 3 completed shifts: In: 872.8 (8 mL/kg) [I.V.:872.8 (8 mL/kg)] Out: 2211 (20.3 mL/kg) [Urine:2211 (0.6 mL/kg/hr)] Weight: 108.7 kg I/O this shift: In: 116.7 [I.V.:116.7] Out: 70 [Urine:70] Physical Exam Constitutional: Appearance: Normal appearance. HENT: Head: Normocephalic. Nose: Nose normal. Eyes: Extraocular Movements: Extraocular movements intact. Cardiovascular: Rate and Rhythm: Tachycardia present. Pulses: Normal pulses. Pulmonary: Effort: Pulmonary effort is normal. Abdominal: General: Abdomen is flat. Palpations: Abdomen is soft. Musculoskeletal: Cervical back: Normal range of motion. Neurological: Mental Status: He is alert. Three-way catheter in place on CBI, clear output Labs: Results from last 7 days Lab Units 02/24/25 0321 02/23/25 2350 02/23/25 1830 02/23/25 1115 02/23/25 0533 WBC AUTO 10*3/uL 14.22* 14.02* 16.62* 15.65* 14.82* HEMOGLOBIN g/dL 9.0* 8.8* 9.9* 10.4* 10.9* HEMATOCRIT % 26.4* 25.4* 28.0* 29.5* 31.1* PLATELETS AUTO 10*3/uL 173 171 192 200 214 Results from last 7 days Lab Units 02/24/25 0321 02/23/25 0533 02/23/25 0007 02/22/25 1149 02/21/25 0355 SODIUM mmol/L 135* 136 137 139 139 POTASSIUM mmol/L 4.1 4.5 4.5 4.5 4.0 CO2 mmol/L 28 24 25 24 26 BUN mg/dL 52* 39* 35* 27* 16 CREATININE mg/dL 2.43* 2.27* 2.01* 1.43* 0.99 Results from last 7 days Lab Units 02/22/25 1149 02/18/25 1846 INR 1.47* 1.47* Medications: [Held by provider] digoxin, 250 mcg, oral, Daily [Held by provider] furosemide, 40 mg, oral, q12h [Held by provider] metoprolol succinate XL, 100 mg, oral, 2 times daily metoprolol tartrate, 5 mg, intravenous, Once sodium chloride irrigation solution, 3,000 mL, irrigation, Continuous [Held by provider] spironolactone, 25 mg, oral, Daily tamsulosin, 0.4 mg, oral, Daily [Held by provider] valsartan, 80 mg, oral, Daily amiodarone, 0.5 mg/min, Last Rate: 0.5 mg/min (02/24/25 0700) norEPINEPHrine, 0.01-2 mcg/kg/min, Last Rate: Stopped (02/23/25 1400) Imaging: ECG 12 lead Sinus tachycardia Left axis deviation Non-specific intra-ventricular conduction block Abnormal ECG When compared with ECG of 22-FEB-2025 07:05, Sinus rhythm has replaced Atrial fibrillation Confirmed by Prabhu Chavez (80) on 02/24/2025 3:58:26 AM Assessment/Plan Lindsay Pinto is a 59 y.o. male with rectus sheath hematoma who also was found to have some bloodyurine output after tello placed Active Problem List Gross hematuria Labs today: K 4.1, Cr 2.43, W 14.22, Hgb 9.0 Plan: CBI clamped, continue to monitor urine output Hand irrigate as needed Monitor creatinine, recommend nephrology consult Appreciate vascular recommendations Urology will continue to follow Lo Vasquez MD Urology Resident Physician, PGY-2 02/24/25 Cosigned by Jt Butler MD at 03/01/2025 9:54 PM EDT Associated attestation - Jt Butler MD - 03/01/2025 9:54 PM EDT I personally saw and examined Lindsay Pinto 59 y.o. male on the same date of service as resident /student and scribe. I discussed the findings, differential diagnosis and management in detail with the patient and team. I reviewed the data and have answered all questions. My personal impression isnoted in assessment and plan section. I have edited the note which was scribed for me by scribe to document all of the above findings during this visit on my behalf. I personally performed the entireservice and the documentation is accurate and complete. - gross hematuria - retention - clots removed - CBI to continue - complications from anticoagulation - will need cysto and RGP once stable - Flomax if BP remains stable. * Norm North MD - 02/23/2025 1:09 PM EDT Images from the original note were not included. Medical ICU Progress Note Patient - Lindsay Pinto Age - 59 y[facility] 1965 [id number] Date of Admission - 02/18/2025 5:46 PM HPI/Hospital Course Lindsay Pinto is a 59 y.o. male with past medical history of HTN, ENA, HFrEF, and gastric bypass who presented to an OSH for constipation and bloating. He was found to have new onset a-fib and EF of15-20% dropped from 50-55%. Initial HPI from hospitalist note on 02/18: Lindsay Pinto is an 59 y.o. 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 Patient initially presenting to [place] with bloating and constipation. He states that for the past few weeks he has been having abdominal swelling, bloating. He states associated shortness of breath with exertion. He denies chest pain, nausea, vomiting. He does state mild fatigue. He had a CXR completed showing cardiomegaly with vascular congestion. CT of the abdomen was completed showing ascites and anasarca. Labs show a mild GILLIAN and an elevated BNP over 5000. EKG was completed showing A-fib with RVR which is new for the patient. He was given2 doses of digoxin due to borderline hypotension and given a dose of Xarelto. Echocardiogram was completed showing a newly dropped EF of 15 to 20% with moderate pulmonary hypertension, moderate mitral valve regurgitation and a small pericardial effusion. He was transferred [facility] for higher level of care. Patient does follow with cardiology outpatient for LVH. Per cardiology note, the echocardiogram performed on 05/14/2023 showed LVH with an improvement in EF to 50-55%. His latest echocardiogram did show a significant drop in EF. Cardiology is onboard inpatient for his new-onset atrial fibrillation with RVR. Patient was intially treated with a Cardizem drip; however, it was discontinue due to hypot ension. He has been treated with Toprol XL 100 mg BID and digoxin 250 mcg daily. He is scheduled for BERNARDINO and cardioversion today. CT abdomen and pelvis was performed yesterday for ongoing lower abdominal pain. It did reveal The right and left rectus abdominal muscles are abnormal and contain hematomas. The left is larger in size. Hemoglobin did drop from 15.4 to 14.0, but most recent hemoglobin this morning is 14.5 with a hematocrit of 42.9. MICU was consulted after a rapid response was called around 7 AM for hypotension with a BP of 53/38. He was seen and examined at bedside this morning. Blood pressure is now stable with the most recentpressure of 110/72. The patient is speaking in full sentences. He denies any CP or SOB. He also denies lightheadedness, dizziness, or nausea. He endorses continued abdominal pain that has been present for the past two days. He states that is started after he took a shower and felt tired, so he jumped on his bed. He then felt a sudden pain. He does endorse constipation. Last bowel movement was twodays ago. Patient had another episode of hypotension this morning with a recorded blood pressure of 52/34. Hewas given albumin and 250 cc lactated ringer and transferred to the MICU for hemodynamic instability. SUBJECTIVE Patient was seen and examined at bedside. He last had a bowel movement the day before yesterday. Hehas had intermittent periods of hypotension and was started on Levophed. He denies any CP or SOB. He states that his abdominal pain has improved some but is still painful with movement. Consulting Service(s): Vascular surgery Urology Hospital Course: 02/22: Heparin was dropped due to expanding hematomas in the bilateral inferior rectus sheath and new hematoma in the extraperitoneal space of the anterior pelvis seen on CT abdomen and pelvis. Hemoglobin dropped from 14.5 to 11.4. Vascular surgery was consulted and recommended monitoring hemoglobin. Urology was consulted for gross hematuria. No acute intervention at this time. Patient remains on an amiodarone drip. 02/23: Patient was started on Levophed. Renal function is worsening. Hemoglobin has stabilized at 10.9. No plans to cardiovert as patient is not on anticoagulation. OBJECTIVE Vitals height is 1.727 m (5' 7.99 ) and weight is 109 kg (239 lb 10.2 oz). His temporal temperature is 36.4 ??C (97.5 ??F). His blood pressure is 94/58 and his pulse is 147 (abnormal). His respiration is 23and oxygen saturation is 100%. Temp: [36.3 ??C (97.3 ??F)-36.4 ??C (97.5 ??F)] 36.4 ??C (97.5 ??F) Heart Rate: [107-163] 147 Resp: [0-32] 23 BP: (80-115)/(50-83) 94/58 Arterial Line BP 1: (75-127)/(55-77) 90/55 Physical Exam: Physical Exam Vitals and nursing note reviewed. Constitutional: General: He is not in acute distress. Appearance: Normal appearance. HENT: Head: Normocephalic and atraumatic. Eyes: Extraocular Movements: Extraocular movements intact. Conjunctiva/sclera: Conjunctivae normal. Cardiovascular: Rate and Rhythm: Regular rhythm. Tachycardia present. Pulmonary: Effort: Pulmonary effort is normal. Breath sounds: Normal breath sounds. Abdominal: General: Bowel sounds are normal. Palpations: Abdomen is soft. Tenderness: There is abdominal tenderness (LLQ and RLQ). Musculoskeletal: General: Normal range of motion. Right lower leg: No edema. Left lower leg: No edema. Skin: General: Skin is warm and dry. Findings: No rash. Neurological: General: No focal deficit present. Mental Status: He is alert and oriented to person, place, and time. Weight: Admission weight: 118 kg (259 lb 12.8 oz) Wt Readings from Last 1 Encounters: 02/23/25 109 kg (239 lb 10.2 oz) Input/Output: Intake/Output Summary (Last 24 hours) at 02/23/2025 1310 Last data filed at 02/23/2025 1000 Gross per 24 hour Intake 499.25 ml Output 331 ml Net 168.25 ml Ventilator: Lab Results ABG: CBC: Results from last 7 days Lab Units 02/23/25 1115 02/23/25 0533 02/23/25 0007 WBC AUTO 10*3/uL 15.65* 14.82* 13.82* HEMOGLOBIN g/dL 10.4* 10.9* 11.1* HEMATOCRIT % 29.5* 31.1* 32.1* PLATELETS AUTO 10*3/uL 200 214 213 Coagulation: Results from last 7 days Lab Units 02/22/25 1149 02/21/25 0355 02/20/25 0939 02/19/25 0819 02/19/25 0125 02/18/25 1846 APTT Seconds -- 117.9* 169.6* 154.5* < > 32.7 INR 1.47* -- -- -- -- 1.47* < > = values in this interval not displayed. Metabolic Panel: Results from last 7 days Lab Units 02/23/25 0533 02/23/25 0007 02/22/25 1149 02/22/25 0658 02/22/25 0500 SODIUM mmol/L 136 137 139 -- -- POTASSIUM mmol/L 4.5 4.5 4.5 -- -- CHLORIDE mmol/L 101 102 104 -- -- CO2 mmol/L -- -- BUN mg/dL 39* 35* 27* -- -- CREATININE mg/dL 2.27* 2.01* 1.43* -- -- GLUCOSE mg/dL 118* 128* 134* -- -- CALCIUM mg/dL 8.9 9.1 9.4 -- -- MAGNESIUM mg/dL 2.0 -- -- 1.8* 2.0 Liver Panel: Results from last 7 days Lab Units 02/23/25 0533 02/22/25 1149 02/22/25 0700 ALBUMIN g/dL 3.5 4.0 4.0 BILIRUBIN TOTAL mg/dL 3.4* 5.1* 4.8* ALT U/L 32 28 30 AST U/L 25 22 22 ALK PHOS U/L 61 70 72 Glucose: Hgb A1c: Cardiac: Results from last 7 days Lab Units 02/18/25 1846 BNP pg/mL 491* Anemia Labs: Lipid Panel: No lab exists for component: CHOLHDL Urine Labs: Lab Results Component Value Date WBCU None Seen 02/22/2025 UROBILINOGEN Normal 02/22/2025 Additional Labs: No lab exists for component: LACTICACID , PROCALCITON Radiology ECG 12 lead Sinus tachycardia Left axis deviation Non-specific intra-ventricular conduction block Abnormal ECG When compared with ECG of 22-FEB-2025 07:05, Sinus rhythm has replaced Atrial fibrillation Cultures Lab Results Component Value Date BLOOD CULTURE No growth at 18-24 hours 02/22/2025 BLOOD CULTURE No growth at 18-24 hours 02/22/2025 Medications Scheduled: [Held by provider] digoxin, 250 mcg, oral, Daily [Held by provider] furosemide, 40 mg, oral, q12h [Held by provider] metoprolol succinate XL, 100 mg, oral, 2 times daily metoprolol tartrate, 5 mg, intravenous, Once [Held by provider] spironolactone, 25 mg, oral, Daily [Held by provider] valsartan, 80 mg, oral, Daily Infusions: amiodarone, 0.5 mg/min, Last Rate: 0.5 mg/min (02/23/25 0556) norEPINEPHrine, 0.01-2 mcg/kg/min, Last Rate: 0.01 mcg/kg/min (02/23/25 1110) As Needed: PRN medications: acetaminophen, diphenhydrAMINE, HYDROcodone-acetaminophen, HYDROmorphone, melatonin, sennosides-docusate sodium, Insert peripheral IV AND Saline lock IV AND sodium chloride Assessment & Plan Shock likely mixed hemorrhagic and cardiogenic secondary to a-fib with RVR and newly reduced EF andrectus hematoma requiring pressor support A-line and CVC are in place. Monitor blood pressure. Patient is currently requiring Levophed 02/23. New-onset A-fib with RVR with left bundle branch block S/p Cardizem drip discontinued due to hypotension Heparin infusion since 02/18-02/22, stopped due to hematoma Toprol-XL and digoxin held. No plan for cardioversion as patient is not on anticoagulation at this time. Continue amiodarone drip. [id number] score of 2. Cardiology on board, appreciate recommendations Acute decompensated systolic heart failure, EF of 15% Cardiology will plan for ischemic work-up once rhythm is normalized Holding valsartan, metoprolol, and spironolactone 02/22 due to hypotension Holding diuresis Plan to transition to Entresto and add Farxiga once blood pressure improves GILLIAN likely prerenal secondary to atrial fibrillation and hypovolemia, progressed to acute tubular necrosis Creatinine is rising, BUN/CR 17.2. Bilateral rectus hematoma larger on left Trend H and H q6, given CT findings of hematoma. Hemoglobin is slowly trending down 14.5 -> 11.4 -> 10.4. Transfuse Hgb < 7. Leukocytosis, likely reactive WBC of 14.82 Lactate on 02/22 was 2.2, repeat decreased to 1.6 Peripheral blood cultures x2, no growth to date Will follow CT chest shows bibasilar consolidation, atelectasis, pleural effusions. Small to moderate pericardial effusion. Jaundice with hyperbilirubinemia Total bilirubin trending down 3.4 down from 4.8. Total bilirubin 2.4 5 years ago LFTs within normal limits HTN ENA Obesity s/p gastric bypass surgery DVT prophylaxis: None GI prophylaxis: None Lines: Peripheral IV, arterial line left brachial, CVC left IJ Diet: NPO Code status: Full Summer Alexi, MS4 [facility] Norm North MD Critical Care Fellow PGY 6 This note was completed using a voice bottle inspector system. Every effort was made to ensure accuracy. However, inadvertent computerized bottle inspector errors may be present. Cosigned by Ruth Kramer MD at 02/24/2025 12:34 PM EDT Associated attestation - Ruth Kramer MD - 02/24/2025 12:34 PM EDT The patient was seen and examined with the resident/fellow on the same date of service, I discussedthe findings and therapeutic plan and agree with the documentation, assessment and plan as above except for any edits/updates below. Critical Care services were required for the patient due to critical condition: Circulatory shock due to Afib and acute blood loss New onset Afib with RVR and LBBB Decompensated CHFrEF 15% Bilateral rectus sheath hematoma spontaneous in the setting of anticoagulation Hyperbilirubinemia GILLIAN - ATN ENA Morbid obesity s/p gastric bypass I personally provided direct critical care services consisting of: Continue Levophed to keep MAP > 65 mmHg Monitor H and H and transfused for hemoglobin less than 7 IR and vascular surgery consulted, conservative management Continue Hold anticoagulation Amiodarone infusion Hold GDMT Empiric antibiotics Trend Bilirubin Trend kidney function and electrolytes, suspect ATN Nephrology consult DVT and GI prophylaxis Critical Care minutes were 35, which excludes time performing separately billed procedures, updating family, and teaching. * Autumn Linder MD - 02/23/2025 9:37 AM EDT Images from the original note were not included. [facility] Vascular Surgery DAILY PROGRESS NOTE Subjective No blood given overnight. Blood pressure stable. He is on amio gtt for afib. Continued to have hematuria. Reports mild abdominal pain. Patient state he is passing gas. Denies nausea. Objective Vitals: Vitals: 02/23/25 0900 BP: Pulse: (!) 147 Resp: 15 Temp: SpO2: 99% I/O last 3 completed shifts: In: 1663.4 (15.7 mL/kg) [I.V.:688.4 (6.5 mL/kg); Blood:200; IV Piggyback:775] Out: 938 (8.8 mL/kg) [Urine:938 (0.2 mL/kg/hr)] Weight: 106 kg I/O this shift: In: - Out: 43 [Urine:43] Physical Exam Physical Exam General Appearance: awake, alert; well-developed HEENT: atraumatic, normocephalic; EOMI Pulmonary: unlabored breathing, saturating >93% on room air. Cardiac: irregular rate on amio gtt, stable blood pressure Abdomen: soft, mild-tender, non-distended; no rebound tenderness or guarding. Neuro: alert and oriented x3; no focal neurologic deficits. Extremity: full range of motion, no peripheral edema. Urology: tello with hematuria Skin: warm, dry; no rashes or lesions. Vascular Exam Vascular: RLE Pulses: Femoral: +2 DP: PT: Edema: none LLE Pulses: Femoral: +2 DP: PT: Edema: none RUE Pulses: Radial: 2+ Edema: none LUE Pulses: Radial: 2+ Edema: none Labs: Results from last 7 days Lab Units 02/23/25 0533 02/23/25 0007 02/22/25 1831 02/22/25 1149 02/22/25 0707 02/22/25 0658 WBC AUTO 10*3/uL 14.82* 13.82* 10.74* 11.61* -- 10.73* HEMOGLOBIN g/dL 10.9* 11.1* 11.4* 13.5 14.5 14.0 HEMATOCRIT % 31.1* 32.1* 33.4* 40.1 42.9 42.5 PLATELETS AUTO 10*3/uL 214 213 215 257 -- 224 Results from last 7 days Lab Units 02/23/25 0533 02/23/25 0007 02/22/25 1149 02/21/25 0355 02/20/25 0416 SODIUM mmol/L 136 137 139 139 140 POTASSIUM mmol/L 4.5 4.5 4.5 4.0 3.8 CO2 mmol/L 25 BUN mg/dL 39* 35* 27* 16 16 CREATININE mg/dL 2.27* 2.01* 1.43* 0.99 0.99 Results from last 7 days Lab Units 02/22/25 1149 02/18/25 1846 INR 1.47* 1.47* Medications: [Held by provider] digoxin, 250 mcg, oral, Daily [Held by provider] furosemide, 40 mg, oral, q12h [Held by provider] metoprolol succinate XL, 100 mg, oral, 2 times daily metoprolol tartrate, 5 mg, intravenous, Once [Held by provider] spironolactone, 25 mg, oral, Daily [Held by provider] valsartan, 80 mg, oral, Daily amiodarone, 0.5 mg/min, Last Rate: 0.5 mg/min (02/23/25 0556) norEPINEPHrine, 0.01-2 mcg/kg/min Imaging: XR chest 1 view Narrative: CLINICAL INFORMATION: . central line placement - it is DONE please come up. TECHNIQUE/PROCEDURE: Chest radiograph, single view. COMPARISON: Chest CT same day Impression: * Left central venous catheter tip projects over the mid SVC. No postprocedural pneumothorax. * Retrocardiac atelectasis and/or pneumonia noted. Electronically signed: Davy Garcia M.D.. CT abdomen pelvis w IV contrast Narrative: STUDY: ABDOMEN AND PELVIS CT WITH CONTRAST HISTORY: Guarding, diaphoresis, abdominal pain, sepsis evaluation COMPARISON: 02/21/2025 TECHNIQUE: Routine CT abdomen and pelvis was performed with contrast. All CT scans at this facility use dose modulation, iterative reconstruction, and/or weight based dosing when appropriate to reduce radiation dose to as low as reasonably achievable. FINDINGS: Please refer to separate report for chest findings. Cholelithiasis with distention of the gallbladder. The liver, spleen, adrenal glands, pancreas are unremarkable. Mild bilateral renal pelviectasis and mild diffuse ureteral prominence. There is a Tello catheter within a likely decompressed bladder. Redemonstration of bilateral inferior rectus sheath hematomas, each of which have enlarged since previous study (left larger than right. Right-sided hematoma measures approximately 5.8 x 2.7 cm and left-sided hematoma measures approximately 5.9 x 7.7 cm. There is layering high attenuation material within the left rectus sheath hematoma suggestive of active bleeding. This hematoma appears to connect with a much larger hematoma just posterior to the rectus muscles that was not present previously measuring approximately 15.1 x 7.9 cm. This also contains layering higher attenuation material. Postsurgical changes from previous gastric surgery and multiple partial bowel resections. There is mild diffuse prominence of small and large bowel, most likely ileus. Edema and/or hemorrhage in the pelvic sidewall and presacral space. Impression: * Increase in size of bilateral inferior rectus sheath hematomas (left larger than right) with new large hematoma just posterior to the rectus sheath in the extraperitoneal space of the anterior pelvis. Evidence of active bleeding both within the left rectus sheath hematoma and into the larger hematoma posteriorly. This finding was discussed with MICU resident taking care of this patient on 02/22/2025 at 1:14 PM Electronically signed: Daniel Diaz MD. CT chest w IV contrast Narrative: CT CHEST W IV CONTRAST CLINICAL INFORMATION: Sepsis. COMPARISON: None. PROCEDURE: Routine CT chest obtained after the uncomplicated intravenous administration of contrast material. Multiplanar reformats were obtained from the axial data. All CT scans at this facility use dose modulation, iterative reconstruction, and/or weight based dosing when appropriate to reduce radiation dose to as low as reasonably achievable. FINDINGS: Basilar consolidation and scarring present. Bilateral pleural effusions. There is a [id number] pericardial effusion. Aorta is unremarkable. Mild to moderate coronary artery calcifications. Pulmonary arteries are of normal caliber. Postoperative changes GE junction with hiatal hernia. No lymphadenopathy. Degenerative changes. Impression: * Bibasilar consolidation, atelectasis, pleural effusions. * Small to moderate pericardial effusion, consider echocardiography. * Please see above for further details. Electronically signed: Keyur Romero MD. ECG 12 lead Atrial fibrillation with rapid ventricular response Left bundle branch block Abnormal ECG Confirmed by Rosalia MOULTON, HUGO Cabrera ([id number]) on 02/22/2025 9:36:51 AM Assessment/Plan Lindsay Pinto is a 59 y.o. male presenting with new onset afib with RVR and acute systolic CHF with EF of 15-20% now with bilateral inferior rectus sheath hematoma and zone 3 RP hematoma measuring 15.1 x 7.9 cm on the left and 5.8 x 2.7 cm on the right. Patient is hemodynamically stable blood pressure. No blood needed since admission. Hemoglobin stable. Continue conservative management; no acute surgical intervention Continue to trend HH every 6 hours Hold hep gtt as able Monitor abdominal exam Appreciate care per ICU Aisha Canchola MD, PGY4 General Surgery Resident I saw the patient today with the residents. Patient has no abdominal pain. The abdomen is soft and lax with no tenderness. He has hematuria which is being managed by urology. He has a rectus sheath hematoma and pelvic hematoma that are stable. The hemoglobin drop is not significant we will continueto observe. No indication for angiogram or intervention for the time being. Will continue to followand observe. The rest of history and physical exam as above. Autumn Linder MD, PILLO, M Med Ed, CPE, FRCS, FACS, DFSVS, FACCW, FAPWCA, RVT, RPVI Professor, Division of Vascular, Endovascular and Wound Surgery Department of Surgery Department of Medical Education [place] [facility] [employer] [facility] [phone] [email or web address] * Julio Barnard MD - 02/23/2025 9:19 AM EDT Images from the original note were not included. . Cardiology Progress Note Subjective Pt denies chest pain, shortness of breath, nausea, vomiting, diarrhea. Vitally, the patient is afebrile but remains in A fib w/ RVR HR 130s-160s with SBP 100s-120s. Unable to complete BERNARDINO/Cardioversion due to expanding rectus sheath hematoma w/ hemoglobin drop 10.9 from 13.5 in 24 hours. Continue amio drip. HPI: Lindsay Pinto is a 59 y.o. male with a PMHx of hypertension, severe LVH, ENA, obesity s/p gastric bypass presents as a direct mission for [facility] with progressively worsening dyspnea, abdominal swelling and anasarca in the setting of new onset A-fib as well as new onset systolic CHF. He had a CXR completed showing cardiomegaly with vascular congestion. CT of the abdomen was completed showing ascites and anasarca. Labs show a mild GILLIAN and an elevated BNP over 5000. EKG was completed showing A-fib with RVR which is new for the patient. He was given 2 doses of digoxin due to borderline hypotension and given a dose of Xarelto. Echocardiogram was completed showing a newly dropped EF of 15 to 20% with moderate pulmonary hypertension, moderate mitral valve regurgitation and a small pericardial effusion. He was transferred [facility] for higher level of care. At [facility], he was started on Lasix 40 mg IV BID and he has made nearly net negative 3L of urine. Vitally, he is afebrile, tachycardic in the 100s, BP 100/63, satting well on RA. Cardiac history: Severe LVH per 2019 Echo that showed LV dysfunction, EF 40% and Echo 05/14/23 showed improvement in EF 50-55%, aortic dilation, mitral valve regurg Cardiac workup: ECHO 05/14/2023: Global LV systolic function is low normal limits; visually estimated EF 50-55%. RVis normal in size and function. Normal diastolic function. Biatrial enlargement. Mild mitral regurg. Aortic root is mildly dilated. Trivial pericardial effusion is seen Updates 02/21/2025: Patient is doing well his edema is almost resolved denies any chest pain or shortness of breath he remains in A-fib with RVR 02/22/2025: Overnight, hypotensive to 80s-90s systolic after valsartan 80 mg was added. Patient otherwise doingwell. His edema has nearly resolved denies any chest pain or shortness of breath. He remains in A-fib with RVR. BERNARDINO cardioversion today. Labs show improving leukocytosis 10.5 from 12.5. BMP pending. Two rectus sheath hematomas noted on CTAP on 02/21. Objective Current Medications[1] Objective: Patient Vitals for the past 24 hrs: BP Temp Temp src Pulse Resp SpO2 Weight 02/23/25 0900 -- -- -- (!) 147 15 99 % -- 02/23/25 0802 -- -- -- -- -- -- 109 kg (239 lb 10.2 oz) 02/23/25 08 -- -- -- (!) 146 22 98 % -- 02/23/25 0700 -- -- -- (!) 142 18 99 % -- 02/23/25 0600 -- -- -- (!) 140 17 97 % -- 02/23/25 0500 -- -- -- (!) 145 23 94 % -- 02/23/25 0400 -- 36.4 ??C (97.5 ??F) Temporal (!) 144 23 98 % -- 02/23/25 0300 -- -- -- (!) 130 10 100 % -- 02/23/25 0200 -- -- -- (!) 136 12 99 % -- 02/23/25 0100 -- -- -- (!) 142 12 95 % -- 02/23/25 0000 -- 36.3 ??C (97.3 ??F) Temporal (!) 132 12 98 % -- 02/22/25 230 -- -- -- (!) 130 20 100 % -- 02/22/252199 -- -- -- 109 24 100 % -- 02/22/252104 -- -- -- (!) 127 25 96 % -- 02/22/252008 -- -- -- (!) 123 (!) 32 98 % -- 02/22/251999 -- 36.4 ??C (97.5 ??F) Temporal (!) 130 11 100 % -- 02/22/25 1900 -- -- -- (!) 123 23 95 % -- 02/22/25 1800 94/58 -- -- (!) 128 26 98 % -- 02/22/25 1700 80/70 -- -- 107 (!) 27 96 % -- 02/22/25 1600 100/73 -- -- 108 (!) 0 91 % -- 02/22/25 1500 -- -- -- (!) 129 25 94 % -- 02/22/25 1400 100/82 -- -- (!) 131 21 100 % -- 02/22/25 1345 113/50 -- -- (!) 133 -- 100 % -- 02/22/25 1330 115/83 -- -- (!) 163 20 98 % -- 02/22/25 1315 -- -- -- (!) 161 (!) 30 100 % -- 02/22/25 1300 (!) 135/121 -- -- (!) 158 25 97 % -- 02/22/25 1245 (!) 110/95 -- -- (!) 164 18 100 % -- 02/22/25 1230 112/55 -- -- (!) 157 20 99 % -- 02/22/25 1215 121/78 -- -- (!) 161 14 99 % -- 02/22/25 1200 -- -- -- (!) 157 15 100 % -- 02/22/25 1130 (!) 109/96 -- -- (!) 144 22 100 % -- 02/22/25 1115 87/66 -- -- (!) 141 13 99 % -- 02/22/25 1100 (!) 139/113 -- -- (!) 149 26 98 % -- 02/22/25 1045 96/85 -- -- (!) 146 (!) 9 100 % -- 02/22/25 1030 125/84 -- -- (!) 160 18 100 % -- 02/22/25 1015 (!) 127/110 35.5 ??C (95.9 ??F) Temporal (!) 166 21 100 % -- 02/22/25 0946 100/59 -- -- (!) 141 15 97 % -- 02/22/25 0930 98/78 -- -- (!) 147 12 100 % -- 02/22/25 0925 112/85 -- -- (!) 134 (!) 27 99 % -- Physical Examination: Physical Exam Constitutional: Appearance: Normal appearance. Cardiovascular: Rate and Rhythm: Tachycardia present. Rhythm irregular. Pulses: Normal pulses. Heart sounds: Normal heart sounds. Pulmonary: Effort: Pulmonary effort is normal. No respiratory distress. Breath sounds: Normal breath sounds. Abdominal: General: Bowel sounds are normal. There is no distension. Palpations: Abdomen is soft. Musculoskeletal: Right lower leg: Edema present. Left lower leg: Edema present. Neurological: General: No focal deficit present. Mental Status: He is oriented to person, place, and time. Relevant Lab Results Encounter Date: 02/18/25 ECG 12 lead Result Value Ventricular Rate 138 QRS DURATION 166 QT Interval 364 QTC CALCULATION(BAZETT) 551 R-Moselle -18 T Wave Moselle 151 Impression Atrial fibrillation with rapid ventricular response Left bundle branch block Abnormal ECG Confirmed by Rosalia MOULTON, HUGO Cabrera (57) on 02/22/2025 9:36:51 AM No results found for: CKTOTAL , CKMB , CKMBINDEX , TROPONINI No echocardiogram results found for the past 12 months No nuclear medicine results found for the past 12 months Relevant Imaging Results XR chest 1 view Narrative: CLINICAL INFORMATION: . central line placement - it is DONE please come up. TECHNIQUE/PROCEDURE: Chest radiograph, single view. COMPARISON: Chest CT same day Impression: * Left central venous catheter tip projects over the mid SVC. No postprocedural pneumothorax. * Retrocardiac atelectasis and/or pneumonia noted. Electronically signed: Davy Garcia M.D.. CT abdomen pelvis w IV contrast Narrative: STUDY: ABDOMEN AND PELVIS CT WITH CONTRAST HISTORY: Guarding, diaphoresis, abdominal pain, sepsis evaluation COMPARISON: 02/21/2025 TECHNIQUE: Routine CT abdomen and pelvis was performed with contrast. All CT scans at this facility use dose modulation, iterative reconstruction, and/or weight based dosing when appropriate to reduce radiation dose to as low as reasonably achievable. FINDINGS: Please refer to separate report for chest findings. Cholelithiasis with distention of the gallbladder. The liver, spleen, adrenal glands, pancreas are unremarkable. Mild bilateral renal pelviectasis and mild diffuse ureteral prominence. There is a Tello catheter within a likely decompressed bladder. Redemonstration of bilateral inferior rectus sheath hematomas, each of which have enlarged since previous study (left larger than right. Right-sided hematoma measures approximately 5.8 x 2.7 cm and left-sided hematoma measures approximately 5.9 x 7.7 cm. There is layering high attenuation material within the left rectus sheath hematoma suggestive of active bleeding. This hematoma appears to connect with a much larger hematoma just posterior to the rectus muscles that was not present previously measuring approximately 15.1 x 7.9 cm. This also contains layering higher attenuation material. Postsurgical changes from previous gastric surgery and multiple partial bowel resections. There is mild diffuse prominence of small and large bowel, most likely ileus. Edema and/or hemorrhage in the pelvic sidewall and presacral space. Impression: * Increase in size of bilateral inferior rectus sheath hematomas (left larger than right) with new large hematoma just posterior to the rectus sheath in the extraperitoneal space of the anterior pelvis. Evidence of active bleeding both within the left rectus sheath hematoma and into the larger hematoma posteriorly. This finding was discussed with MICU resident taking care of this patient on 02/22/2025 at 1:14 PM Electronically signed: Daniel Diaz MD. CT chest w IV contrast Narrative: CT CHEST W IV CONTRAST CLINICAL INFORMATION: Sepsis. COMPARISON: None. PROCEDURE: Routine CT chest obtained after the uncomplicated intravenous administration of contrast material. Multiplanar reformats were obtained from the axial data. All CT scans at this facility use dose modulation, iterative reconstruction, and/or weight based dosing when appropriate to reduce radiation dose to as low as reasonably achievable. FINDINGS: Basilar consolidation and scarring present. Bilateral pleural effusions. There is a vonvn-he-kcrepjmc pericardial effusion. Aorta is unremarkable. Mild to moderate coronary artery calcifications. Pulmonary arteries are of normal caliber. Postoperative changes GE junction with hiatal hernia. No lymphadenopathy. Degenerative changes. Impression: * Bibasilar consolidation, atelectasis, pleural effusions. * Small to moderate pericardial effusion, consider echocardiography. * Please see above for further details. Electronically signed: Keyur Romero MD. ECG 12 lead Atrial fibrillation with rapid ventricular response Left bundle branch block Abnormal ECG Confirmed by Rosalia MOULTON, HUGO Cabrera (57) on 02/22/2025 9:36:51 AM ASSESSMENT Acute HFrEF EF 10 to 15% probably tachycardia mediated with history of heart failure with improved ejection fraction persistent A-fib with RVR [id number] 2 Small pericardial effusion on Echo Primary hypertension ENA S/p gastric bypass PLAN CTAP on 02/22 showed increase in size of bilateral inferior rectus sheath hematomas (left larger than right) with new large hematoma just posterior to the rectus sheath Due to evidence of active bleeding, heparin drip was discontinued and BERNARDINO cardioversion was deferred. Continue amiodarone drip for A fib management Cardiology will continue to follow This note was, at least in part, completed using a voice bottle inspector system. Every effort was made to ensure accuracy. However, inadvertent computerized bottle inspector errors may be present. Julio Barnard MD [1] Current Facility-Administered Medications: acetaminophen (Tylenol) tablet 650 mg, 650 mg, oral, q6h PRN, Carolmadison Weberkl, VACATION PL[employer]NER, 650 mg at 244 [COMPLETED] amiodarone in dextrose,iso-osm (Nexterone) IVPB 150 mg, 150 mg, intravenous, Once, Stopped at 02/22/25 1345 FOLLOWED BY [] amiodarone (Nexterone) infusion, 1 mg/min, intravenous, Continuous, Stopped at 02/22/25 1945 FOLLOWED BY amiodarone (Nexterone) infusion, 0.5 mg/min,intravenous, Continuous, Norm North MD, Last Rate: 16.67 mL/hr at 02/23/25 0556, 0.5 mg/min at 02/23/25 0556 [Held by provider] digoxin (Lanoxin) tablet 250 mcg, 250 mcg, oral, Daily, Susan Mcpherson MD, 250 mcgat 02/21/25 0844 diphenhydrAMINE (BENADryl) capsule 25 mg, 25 mg, oral, q8h PRN, Jordan Pitts MD, 25 mg at 02/23/25 0427 [Held by provider] furosemide (Lasix) tablet 40 mg, 40 mg, oral, q12h, Gabriele Yoder MD, 40 mg at 02/21/25 2255 HYDROcodone-acetaminophen (Montrose) 5-325 mg per tablet 1 tablet, 1 tablet, oral, q6h PRN, Suleiman Corcoran MD, 1 tablet at 02/21/25 2240 HYDROmorphone (Dilaudid) injection 0.2 mg, 0.2 mg, intravenous, q4h PRN, Norm North MD, 0.2 mg at 02/22/25 1909 melatonin tablet 5 mg, 5 mg, oral, Nightly PRN, Carol Carter CNP [Held by provider] metoprolol succinate XL (Toprol-XL) 24 hr tablet 100 mg, 100 mg, oral, 2 times daily, Gabriele Yoder MD, 100 mg at 02/21/25 1630 metoprolol tartrate (Lopressor) injection 5 mg, 5 mg, intravenous, Once, Gabriele Yoder MD norepinephrine in sodium chloride 0.9 % (Levophed) 8 mg/250ml infusion, 0.01-2 mcg/kg/min, intravenous, Continuous, Norm Norht MD Insert peripheral IV, , , Once AND Saline lock IV, , , Once AND sodium chloride flush 10 mL, 10 mL, intravenous, q8h PRN, Carol Carter CNP [Held by provider] spironolactone (Aldactone) tablet 25 mg, 25 mg, oral, Daily, Susan Mcpherson MD, 25mg at 02/21/25 0843 [Held by provider] valsartan (Diovan) tablet 80 mg, 80 mg, oral, Daily, Gabriele Yoder MD, 80 mg at 02/21/25 0844 Cosigned by Prabhu Chavez MD at 02/24/2025 4:52 AM EDT Associated attestation - Prabhu Chavez MD - 02/24/2025 4:52 AM EDT By using the attestations below, the signing clinician agrees that I have read and verify that thedocumentation has been personally reviewed by me and ensure that the documentation accurately reflects the encounter. GC: I performed the [place]umfield portion(s) of the service and participated in the management and confirm the resident's documentation. Please note there may be an additional personal documentation from me. * Jt Butler MD - 02/23/2025 7:45 AM EDT Images from the original note were not included. [facility] Department of Urology DAILY PROGRESS NOTE Subjective No acute events overnight Patient is resting comfortably Tello in place bloody output, will plan to upsize today Objective Vitals: Vitals: 02/23/25 0700 BP: Pulse: (!) 142 Resp: 18 Temp: SpO2: 99% I/O last 3 completed shifts: In: 1663.4 (15.7 mL/kg) [I.V.:688.4 (6.5 mL/kg); Blood:200; IV Piggyback:775] Out: 938 (8.8 mL/kg) [Urine:938 (0.2 mL/kg/hr)] Weight: 106 kg No intake/output data recorded. Physical Exam Constitutional: Appearance: Normal appearance. HENT: Head: Normocephalic. Nose: Nose normal. Eyes: Extraocular Movements: Extraocular movements intact. Cardiovascular: Rate and Rhythm: Tachycardia present. Pulses: Normal pulses. Pulmonary: Effort: Pulmonary effort is normal. Abdominal: General: Abdomen is flat. Palpations: Abdomen is soft. Musculoskeletal: Cervical back: Normal range of motion. Neurological: Mental Status: He is alert. Labs: Results from last 7 days Lab Units 02/23/25 0533 02/23/25 0007 02/22/25 1831 02/22/25 1149 02/22/25 0707 02/22/25 0658 WBC AUTO 10*3/uL 14.82* 13.82* 10.74* 11.61* -- 10.73* HEMOGLOBIN g/dL 10.9* 11.1* 11.4* 13.5 14.5 14.0 HEMATOCRIT % 31.1* 32.1* 33.4* 40.1 42.9 42.5 PLATELETS AUTO 10*3/uL 214 213 215 257 -- 224 Results from last 7 days Lab Units 02/23/25 0533 02/23/25 0007 02/22/25 1149 02/21/25 0355 02/20/25 0416 SODIUM mmol/L 136 137 139 139 140 POTASSIUM mmol/L 4.5 4.5 4.5 4.0 3.8 CO2 mmol/L 24 25 24 26 25 BUN mg/dL 39* 35* 27* 16 16 CREATININE mg/dL 2.27* 2.01* 1.43* 0.99 0.99 Results from last 7 days Lab Units 02/22/25 1149 02/18/25 1846 INR 1.47* 1.47* Medications: [Held by provider] digoxin, 250 mcg, oral, Daily [Held by provider] furosemide, 40 mg, oral, q12h [Held by provider] metoprolol succinate XL, 100 mg, oral, 2 times daily metoprolol tartrate, 5 mg, intravenous, Once [Held by provider] spironolactone, 25 mg, oral, Daily [Held by provider] valsartan, 80 mg, oral, Daily amiodarone, 0.5 mg/min, Last Rate: 0.5 mg/min (02/23/25 0556) norEPINEPHrine, 0.01-2 mcg/kg/min Imaging: XR chest 1 view Narrative: CLINICAL INFORMATION: . central line placement - it is DONE please come up. TECHNIQUE/PROCEDURE: Chest radiograph, single view. COMPARISON: Chest CT same day Impression: * Left central venous catheter tip projects over the mid SVC. No postprocedural pneumothorax. * Retrocardiac atelectasis and/or pneumonia noted. Electronically signed: Davy Garcia M.D.. CT abdomen pelvis w IV contrast Narrative: STUDY: ABDOMEN AND PELVIS CT WITH CONTRAST HISTORY: Guarding, diaphoresis, abdominal pain, sepsis evaluation COMPARISON: 02/21/2025 TECHNIQUE: Routine CT abdomen and pelvis was performed with contrast. All CT scans at this facility use dose modulation, iterative reconstruction, and/or weight based dosing when appropriate to reduce radiation dose to as low as reasonably achievable. FINDINGS: Please refer to separate report for chest findings. Cholelithiasis with distention of the gallbladder. The liver, spleen, adrenal glands, pancreas are unremarkable. Mild bilateral renal pelviectasis and mild diffuse ureteral prominence. There is a Tello catheter within a likely decompressed bladder. Redemonstration of bilateral inferior rectus sheath hematomas, each of which have enlarged since previous study (left larger than right. Right-sided hematoma measures approximately 5.8 x 2.7 cm and left-sided hematoma measures approximately 5.9 x 7.7 cm. There is layering high attenuation material within the left rectus sheath hematoma suggestive of active bleeding. This hematoma appears to connect with a much larger hematoma just posterior to the rectus muscles that was not present previously measuring approximately 15.1 x 7.9 cm. This also contains layering higher attenuation material. Postsurgical changes from previous gastric surgery and multiple partial bowel resections. There is mild diffuse prominence of small and large bowel, most likely ileus. Edema and/or hemorrhage in the pelvic sidewall and presacral space. Impression: * Increase in size of bilateral inferior rectus sheath hematomas (left larger than right) with new large hematoma just posterior to the rectus sheath in the extraperitoneal space of the anterior pelvis. Evidence of active bleeding both within the left rectus sheath hematoma and into the larger hematoma posteriorly. This finding was discussed with MICU resident taking care of this patient on 02/22/2025 at 1:14 PM Electronically signed: Daniel Diaz MD. CT chest w IV contrast Narrative: CT CHEST W IV CONTRAST CLINICAL INFORMATION: Sepsis. COMPARISON: None. PROCEDURE: Routine CT chest obtained after the uncomplicated intravenous administration of contrast material. Multiplanar reformats were obtained from the axial data. All CT scans at this facility use dose modulation, iterative reconstruction, and/or weight based dosing when appropriate to reduce radiation dose to as low as reasonably achievable. FINDINGS: Basilar consolidation and scarring present. Bilateral pleural effusions. There is a [id number] pericardial effusion. Aorta is unremarkable. Mild to moderate coronary artery calcifications. Pulmonary arteries are of normal caliber. Postoperative changes GE junction with hiatal hernia. No lymphadenopathy. Degenerative changes. Impression: * Bibasilar consolidation, atelectasis, pleural effusions. * Small to moderate pericardial effusion, consider echocardiography. * Please see above for further details. Electronically signed: Keyur Romero MD. ECG 12 lead Atrial fibrillation with rapid ventricular response Left bundle branch block Abnormal ECG Confirmed by Rosalia MOULTON, HUGO Cabrera ([id number]) on 02/22/2025 9:36:51 AM Assessment/Plan Lindsay Pinto is a 59 y.o. male with rectus sheath hematoma who also was found to have some bloodyurine output after tello placed Active Problem List Gross hematuria Plan: Will plan to upsize tello catheter today Hand irrigate as needed Monitor creatinine, recommend nephrology consult Appreciate vascular recommendations Urology will continue to follow Norman Tovar MD Urology Resident, PGY-3 I personally saw and examined Lindsay Pinto 59 y.o. male on the same date of service as resident /student and scribe. I discussed the findings, differential diagnosis and management in detail with the patient and team. I reviewed the data and have answered all questions. My personal impression isnoted in assessment and plan section. I have edited the note which was scribed for me by scribe to document all of the above findings during this visit on my behalf. I personally performed the entireservice and the documentation is accurate and complete. - hematuria - start CBI - concerning for anticoagulation - will decompress bladder for adequate drainage - cont to follow. * Suleiman Corcoran MD - 02/22/2025 9:39 AM EDT Images from the original note were not included. [facility] Medicine Daily Progress Note - 02/22/2025 9:39 AM; Room: [facility]/3137-01 Admission: 02/18/2025 5:46 PM; Length of stay: 4 days THE HOSPITALIST TEAM PREFERS TO USE [employer] FOR NON-URGENT COMMUNICATION 7AM- 7PM. IF I DO NOT RESPOND WITHIN 20 MINUTES OR URGENT MATTERS, PLEASE CALL THROUGH THE BO[employer]PER[employer]OR. FROM 7PM-7AM, PLEASE PAGE [phone](COVR). Code Status: Full Code Barriers to Discharge: persistent hypotension and transfer to MICU Expected Discharge Date: Saturday Discharge Destination: home Overview Patient is seen for evaluation and management of Afib with RVR and HF exacerbation. Subjective Patient seen and examined in the morning. He was resting in bed. He was stating that he is startingto have pain at his genital. CT abd/pelvis that was obtained yesterday showed multiple loops of bowel in anterior position, possibly adhesed, but no imaging evidence of bowel obstruction. Small amount of free fluid in pelvis, there was also rectus abdominal muscles that had hematomas. Patient was hypotensive this morning into 70s. Rapid response called and patient was given fluids and BP improved. When I saw him this morning, his pressures were improved. However, BP dropped again into 70s. STAT CT abd/pelvis ordered by cardiology team. HR has been sustaining between 140s to 170s. MICU accepted and patient has a bed. Transferring to MICU. Physical Exam Visit Vitals BP 97/82 Pulse (!) 136 Temp 36.4 ??C (97.5 ??F) (Temporal) Resp 26 Intake/Output Summary (Last 24 hours) at 02/22/2025 0939 Last data filed at 02/22/2025 0746 Gross per 24 hour Intake 1083.78 ml Output 1325 ml Net -241.22 ml Physical Exam Vitals reviewed. Constitutional: General: He is not in acute distress. Appearance: He is not ill-appearing or toxic-appearing. HENT: Head: Normocephalic and atraumatic. Mouth/Throat: Mouth: Mucous membranes are moist. Eyes: General: No scleral icterus. Extraocular Movements: Extraocular movements intact. Pupils: Pupils are equal, round, and reactive to light. Cardiovascular: Rate and Rhythm: Normal rate. Pulmonary: Effort: Pulmonary effort is normal. No respiratory distress. Breath sounds: No stridor. Abdominal: General: There is no distension. Palpations: Abdomen is soft. Neurological: Mental Status: He is alert. Cranial Nerves: No cranial nerve deficit. Psychiatric: Mood and Affect: Mood normal. Behavior: Behavior normal. Thought Content: Thought content normal. Judgment: Judgment normal. Estimated body mass index is 35.54 kg/m?? as calculated from the following: Height as of this encounter: 1.727 m (5' 7.99 ). Weight as of this encounter: 106 kg (233 lb 11 oz). Assessment and Plan Assessment & Plan Acute systolic CHF (congestive heart failure) (CMS/HCC) - unable to assess NYHA class - BNP over 5000 at outside facility was 491 at [facility] -CXR showed cardiomegaly with vascular congestion and CT of the abdomen showed anasarca and ascites -Echocardiogram was completed at [place] which showed an EF of 15 to 20%, moderate pulmonary hypertension, moderate mitral valve regurgitation and small pericardial effusion - Continue Lasix 40 mg PO twice daily -Strict intake and output, daily weights. Currently net negative 8.4L - continue Toprol-XL 100mg daily - Aldactone 25 mg and valsartan held due to hypotension - Cardiology following, appreciate recommendations New onset a-fib ([facility]) Atrial fibrillation with RVR ([facility]) - Patient found to be in new onset atrial fibrillation at outside hospital, was initially on Cardizem drip but was discontinued due to low blood pressure - Patient was also initially given a dose of Xarelto at outside hospital, transitioned to heparin infusion. Will likely resume xarelto upon discharge - Continue Toprol-XL and loading dose digoxin, BERNARDINO cardioversion deferred due to hypotension and clinical instability -TSH WNL Primary hypertension - Valsartan and spironolactone held - Blood pressure has been rather hypotensive ENA (obstructive sleep apnea) - Stable, Patient currently not using CPAP S/P gastric bypass - Stable Hematoma - Seen on abdominal rectus abdominal muscles on CT abd/pelvis 02/21 - L noted to be bigger than R - Consider holding heparin - Hgb has been stable VTE Prophylaxis: IV heparin Scheduled Meds [Held by provider] digoxin, 250 mcg, oral, Daily [Held by provider] furosemide, 40 mg, oral, q12h lactated Ringer's, 250 mL, intravenous, Once [Held by provider] metoprolol succinate XL, 100 mg, oral, 2 times daily metoprolol tartrate, 5 mg, intravenous, Once [Held by provider] spironolactone, 25 mg, oral, Daily [Held by provider] valsartan, 80 mg, oral, Daily heparin, 0-28 Units/kg/hr, Last Rate: 12 Units/kg/hr (02/22/25 0701) Pertinent Investigations Hematology: Results from last 7 days Lab Units 02/22/25 0707 02/22/25 0658 02/22/25 0500 02/19/25 04102/18/25 1846 WBC AUTO 10*3/uL -- 10.73* 12.27* < > 7.49 HEMOGLOBIN g/dL 14.5 14.0 15.4 < > 14.4 HEMATOCRIT % 42.9 42.5 45.0 < > 41.7 MCV fL -- 93.4 91.5 < > 91.2 PLATELETS AUTO 10*3/uL -- 224 242 < > 195 INR -- -- -- -- 1.47* < > = values in this interval not displayed. Chemistry: Results from last 7 days Lab Units 02/22/25 0658 02/22/25 0500 02/21/25 0355 02/20/25 0416 02/19/25 0418 02/18/25 1846 SODIUM mmol/L -- -- 139 140 141 136 POTASSIUM mmol/L -- -- 4.0 3.8 3.8 4.0 CHLORIDE mmol/L -- -- 104 105 108* 108* CO2 mmol/L -- -- 25 25 21 BUN mg/dL -- -- 16 16 19 21 CREATININE mg/dL -- -- 0.99 0.99 1.07 1.02 GLUCOSE mg/dL -- -- 86 59* 75 88 MAGNESIUM mg/dL 1.8* 2.0 -- -- 1.9 2.1 CALCIUM mg/dL -- -- 8.9 8.7 8.3* 8.5* PHOSPHORUS mg/dL -- -- -- -- -- 2.7 Results from last 7 days Lab Units 02/18/25 1846 AST U/L 19 ALT U/L 30 ALK PHOS U/L 58 BILIRUBIN TOTAL mg/dL 3.6* Results from last 7 days Lab Units 02/22/25 0613 POCT GLUCOSE mg/dL 129* Historical Values: (Includes values prior to this admission) Lab Results Component Value Date PREALBUMIN 11.1 (L) 08/28/2019 TSH 3.22 02/18/2025 No results found for: [id number] , IRON , TIBC , C3 , C4 , JANI , CANCA , ASO , PSA , CEA , CA125 , CA199 , AFP , CA153 Imaging ECG 12 lead Atrial fibrillation with rapid ventricular response Left bundle branch block Abnormal ECG Confirmed by Rosalia MOULTON, HUGO Cabrera ([id number]) on 02/22/2025 9:36:51 AM Discharge Planning Expected Discharge Disposition: Home or Self Care () Signed Suleiman Corcoran MD [facility] Medicine 02/22/2025 9:39 AM * Julio Barnard MD - 02/22/2025 8:31 AM EDT Images from the original note were not included. . Cardiology Progress Note Subjective Pt denies chest pain, shortness of breath, nausea, vomiting, diarrhea. Vitally, the patient is afebrile but remains in A fib w/ RVR HR 110s-120s with SBP 100s- 120s. UO=-5.5L & lost 12 pounds overthe last 24 hours. Troponin 27->30->29->30. Labs pending. HPI: Lindsay Pinto is a 59 y.o. male with a PMHx of hypertension, severe LVH, ENA, obesity s/p gastric bypass presents as a direct mission for [facility] with progressively worsening dyspnea, abdominal swelling and anasarca in the setting of new onset A-fib as well as new onset systolic CHF. He had a CXR completed showing cardiomegaly with vascular congestion. CT of the abdomen was completed showing ascites and anasarca. Labs show a mild GILLIAN and an elevated BNP over 5000. EKG was completed showing A-fib with RVR which is new for the patient. He was given 2 doses of digoxin due to borderline hypotension and given a dose of Xarelto. Echocardiogram was completed showing a newly dropped EF of 15 to 20% with moderate pulmonary hypertension, moderate mitral valve regurgitation and a small pericardial effusion. He was transferred [facility] for higher level of care. At [facility], he was started on Lasix 40 mg IV BID and he has made nearly net negative 3L of urine. Vitally, he is afebrile, tachycardic in the 100s, BP 100/63, satting well on RA. Cardiac history: Severe LVH per 2018 Echo that showed LV dysfunction, EF 40% and Echo 05/14/23 showed improvement in EF 50-55%, aortic dilation, mitral valve regurg Cardiac workup: ECHO 05/14/2023: Global LV systolic function is low normal limits; visually estimated EF 50-55%. RVis normal in size and function. Normal diastolic function. Biatrial enlargement. Mild mitral regurg. Aortic root is mildly dilated. Trivial pericardial effusion is seen Updates 02/21/2025: Patient is doing well his edema is almost resolved denies any chest pain or shortness of breath he remains in A-fib with RVR 02/22/2025: Overnight, hypotensive to 80s-90s systolic after valsartan 80 mg was added. Patient otherwise doingwell. His edema has nearly resolved denies any chest pain or shortness of breath. He remains in A-fib with RVR. BERNARDINO cardioversion today. Labs show improving leukocytosis 10.5 from 12.5. BMP pending. Two rectus sheath hematomas noted on CTAP on 02/21. Objective Current Medications[1] Objective: Patient Vitals for the past 24 hrs: BP Temp Temp src Pulse Resp SpO2 Weight 02/22/25 0800 97/82 -- -- (!) 136 26 100 % -- 02/22/25 0746 110/72 -- -- (!) 136 22 99 % -- 02/22/25 0734 -- -- -- (!) 127 17 100 % -- 02/22/25 0733 -- -- -- 108 20 -- -- 02/22/25 0732 103/85 -- -- (!) 146 14 99 % -- 02/22/25 0725 93/75 -- -- (!) 143 22 100 % -- 02/22/25 0710 102/77 -- -- (!) 160 12 99 % -- 02/22/25 0705 (!) 109/96 -- -- (!) 127 (!) 29 100 % -- 02/22/25 0700 91/63 -- -- (!) 150 21 99 % -- 02/22/25 0655 -- -- -- (!) 142 22 -- -- 02/22/25 0650 -- -- -- (!) 153 (!) 28 97 % -- 02/22/25 0645 -- -- -- (!) 136 20 100 % -- 02/22/25 0640 80/63 -- -- (!) 156 15 97 % -- 02/22/25 0638 80/52 -- -- (!) 167 26 98 % -- 02/22/25 0635 -- -- -- (!) 151 (!) 32 97 % -- 02/22/25 0630 (!) 116/100 -- -- (!) 150 (!) 30 98 % -- 02/22/25 0625 -- -- -- (!) 117 21 100 % -- 02/22/25 0620 79/55 -- -- (!) 148 25 100 % -- 02/22/25 0615 77/56 -- -- (!) 131 24 -- -- 02/22/25 0610 -- -- -- (!) 157 17 100 % -- 02/22/25 0600 (!) 53/38 -- -- (!) 160 15 100 % -- 02/22/25 0500 (!) 68/35 -- -- (!) 152 22 95 % -- 02/22/25 0444 -- -- -- -- -- -- 106 kg (233 lb 11 oz) 02/22/25 0423 75/62 36.4 ??C (97.5 ??F) Temporal (!) 137 18 98 % -- 02/22/25 0005 98/51 -- -- (!) 123 21 93 % -- 02/22/25 0000 (!) 64/52 -- -- (!) 131 (!) 7 92 % -- 02/21/25 2337 -- -- -- (!) 140 20 94 % -- 02/21/25 2000 99/79 36.3 ??C (97.3 ??F) Temporal 100 13 99 % -- 02/21/25 1600 (!) 119/99 36.6 ??C (97.9 ??F) Temporal (!) 137 15 97 % -- 02/21/25 1401 -- -- -- 104 22 99 % -- 02/21/25 1246 (!) 122/99 -- -- (!) 142 24 97 % -- 02/21/25 1205 (!) 123/102 36.1 ??C (97 ??F) Temporal (!) 127 15 96 % -- 02/21/25 0900 -- -- -- 103 20 99 % -- 02/21/25 0835 -- -- -- (!) 152 10 97 % -- Physical Examination: Physical Exam Constitutional: Appearance: Normal appearance. Cardiovascular: Rate and Rhythm: Tachycardia present. Rhythm irregular. Pulses: Normal pulses. Heart sounds: Normal heart sounds. Pulmonary: Effort: Pulmonary effort is normal. No respiratory distress. Breath sounds: Normal breath sounds. Abdominal: General: Bowel sounds are normal. There is no distension. Palpations: Abdomen is soft. Musculoskeletal: Right lower leg: Edema present. Left lower leg: Edema present. Neurological: General: No focal deficit present. Mental Status: He is oriented to person, place, and time. Relevant Lab Results Encounter Date: 02/18/25 ECG 12 lead Result Value Ventricular Rate 138 QRS DURATION 166 QT Interval 364 QTC CALCULATION(BAZETT) 551 R-Moselle -18 T Wave Moselle 151 Impression Atrial fibrillation with rapid ventricular response Left bundle branch block Abnormal ECG No results found for: CKTOTAL , CKMB , CKMBINDEX , TROPONINI No echocardiogram results found for the past 12 months No nuclear medicine results found for the past 12 months Relevant Imaging Results ECG 12 lead Atrial fibrillation with rapid ventricular response Left bundle branch block Abnormal ECG ASSESSMENT acute HFrEF EF 10 to 15% probably tachycardia mediated with history of heart failure with improved ejection fraction persistent A-fib with RVR [id number] 2 Small pericardial effusion on Echo Primary hypertension ENA S/p gastric bypass PLAN On the morning of 02/22, the patient was hypotensive to 76/64 with tachycardia with HR in the 160s. Lactate wnl. STAT CTAP pending. Transferred patient to ICU in the event that he requires pressors Hold diuresis and GDMT for heart failure, currently on valsartan, metoprolol, spironolactone, untilBP improves Continue rate control currently on metoprolol, digoxin Proceed BERNARDINO cardioversion on 02/22 Once rhythm is restored we will plan for ischemia evaluation with coronary angiography cardiology will continue to follow This note was, at least in part, completed using a voice bottle inspector system. Every effort was made to ensure accuracy. However, inadvertent computerized bottle inspector errors may be present. Julio Barnard MD [1] Current Facility-Administered Medications: acetaminophen (Tylenol) tablet 650 mg, 650 mg, oral, q6h PRN, Carol Carter CNP, 650 mg at 244 digoxin (Lanoxin) tablet 250 mcg, 250 mcg, oral, Daily, Susan Mcpherson MD, 250 mcg at 02/21/25 0844 furosemide (Lasix) tablet 40 mg, 40 mg, oral, q12h, Gabriele Yoder MD, 40 mg at 02/21/25 2255 heparin infusion 100 units/mL in D5W, 0-28 Units/kg/hr, intravenous, Continuous, Carol Carter CNP,Last Rate: 14.2 mL/hr at 02/22/25 0701, 12 Units/kg/hr at 02/22/25 0701 HYDROcodone-acetaminophen ([place]) 5-325 mg per tablet 1 tablet, 1 tablet, oral, q6h PRN, Suleiman Corcoran MD, 1 tablet at 02/21/25 2240 melatonin tablet 5 mg, 5 mg, oral, Nightly PRN, Carol Carter CNP metoprolol succinate XL (Toprol-XL) 24 hr tablet 100 mg, 100 mg, oral, 2 times daily, Gabriele Yoder MD, 100 mg at 02/21/25 1630 metoprolol tartrate (Lopressor) injection 5 mg, 5 mg, intravenous, Once, Gabriele Yoder MD Insert peripheral IV, , , Once AND Saline lock IV, , , Once AND sodium chloride flush 10 mL, 10 mL, intravenous, q8h PRN, Carol Carter CNP spironolactone (Aldactone) tablet 25 mg, 25 mg, oral, Daily, Susan Mcpherson MD, 25 mg at 02/21/25 0843 valsartan (Diovan) tablet 80 mg, 80 mg, oral, Daily, Gabriele Yoder MD, 80 mg at 02/21/25 0844 Cosigned by Prabhu Chavez MD at 02/23/2025 11:17 AM EDT Associated attestation - Prabhu Chavez MD - 02/23/2025 11:17 AM EDT By using the attestations below, the signing clinician agrees that I have read and verify that thedocumentation has been personally reviewed by me and ensure that the documentation accurately reflects the encounter. GC: I performed the [place]umfield portion(s) of the service and participated in the management and confirm the resident's documentation. Please note there may be an additional personal documentation from me. Pt has recutus hematoma and so AC to be held till hypotension is resolved. Monitor HB closely. * Gabriele Yoder MD - 02/21/2025 11:32 AM EDT Images from the original note were not included. . Cardiology Progress Note Subjective Pt denies chest pain, shortness of breath, nausea, vomiting, diarrhea. Vitally, the patient is afebrile but remains in A fib w/ RVR HR 110s-120s with SBP 100s- 120s. UO=-5.5L & lost 12 pounds overthe last 24 hours. Troponin 27->30->29->30. Labs pending. HPI: Lindsay Pinto is a 59 y.o. male with a PMHx of hypertension, severe LVH, ENA, obesity s/p gastric bypass presents as a direct mission for [facility] with progressively worsening dyspnea, abdominal swelling and anasarca in the setting of new onset A-fib as well as new onset systolic CHF. He had a CXR completed showing cardiomegaly with vascular congestion. CT of the abdomen was completed showing ascites and anasarca. Labs show a mild GILLIAN and an elevated BNP over 5000. EKG was completed showing A-fib with RVR which is new for the patient. He was given 2 doses of digoxin due to borderline hypotension and given a dose of Xarelto. Echocardiogram was completed showing a newly dropped EF of 15 to 20% with moderate pulmonary hypertension, moderate mitral valve regurgitation and a small pericardial effusion. He was transferred [facility] for higher level of care. At [facility], he was started on Lasix 40 mg IV BID and he has made nearly net negative 3L of urine. Vitally, he is afebrile, tachycardic in the 100s, BP 100/63, satting well on RA. Cardiac history: Severe LVH per 2019 Echo that showed LV dysfunction, EF 40% and Echo 05/14/23 showed improvement in EF 50-55%, aortic dilation, mitral valve regurg Cardiac workup: ECHO 05/14/2023: Global LV systolic function is low normal limits; visually estimated EF 50-55%. RVis normal in size and function. Normal diastolic function. Biatrial enlargement. Mild mitral regurg. Aortic root is mildly dilated. Trivial pericardial effusion is seen follow-up 02/21 2025: patient is doing well his edema is almost resolved denies any chest pain or shortness of breath he remains in A-fib with RVR Objective Current Medications[1] Objective: Patient Vitals for the past 24 hrs: BP Temp Temp src Pulse Resp SpO2 Weight 02/21/25 0900 -- -- -- 103 20 99 % -- 02/21/25 0835 -- -- -- (!) 152 10 97 % -- 02/21/25 0825 101/84 36.5 ??C (97.7 ??F) Temporal (!) 131 14 98 % -- 02/21/25 0810 -- -- -- (!) 148 19 96 % -- 02/21/25 0800 -- -- -- (!) 149 (!) 50 91 % -- 02/21/25 0615 108/88 -- -- 107 18 98 % -- 02/21/25 0410 -- -- -- -- -- -- 106 kg (233 lb) 02/21/25 0405 -- 36.6 ??C (97.8 ??F) -- 109 16 98 % -- 02/21/25 0400 96/66 -- -- (!) 125 17 100 % -- 02/21/25 0000 (!) 130/91 -- -- -- -- -- -- 02/20/252034 -- -- -- 108 12 95 % -- 02/20/252024 (!) 120/95 36.7 ??C (98 ??F) -- (!) 133 20 95 % -- 02/20/25 1816 (!) 117/94 -- -- (!) 114 -- -- -- 02/20/25 1700 112/88 -- -- (!) 116 22 (!) 88 % -- 02/20/25 1600 (!) 108/92 36.5 ??C (97.7 ??F) -- 97 12 94 % -- 02/20/25 1200 118/75 36.6 ??C (97.9 ??F) Temporal (!) 124 23 (!) 88 % -- Physical Examination: Physical Exam Constitutional: Appearance: Normal appearance. Cardiovascular: Rate and Rhythm: Tachycardia present. Rhythm irregular. Pulses: Normal pulses. Heart sounds: Normal heart sounds. Pulmonary: Effort: Pulmonary effort is normal. No respiratory distress. Breath sounds: Normal breath sounds. Abdominal: General: Bowel sounds are normal. There is no distension. Palpations: Abdomen is soft. Musculoskeletal: Right lower leg: Edema present. Left lower leg: Edema present. Neurological: General: No focal deficit present. Mental Status: He is oriented to person, place, and time. Relevant Lab Results Encounter Date: 02/18/25 ECG 12 lead Result Value Ventricular Rate 104 QRS DURATION 182 QT Interval 334 QTC CALCULATION(BAZETT) 439 R-Moselle -41 T Wave Moselle 144 Impression Atrial fibrillation with rapid ventricular response Left axis deviation Left bundle branch block Abnormal ECG When compared with ECG of 18-FEB-2025 19:10, No significant change was found Confirmed by MD KULDEEP, MARYAB ([id number]) on 02/19/2025 9:31:28 AM No results found for: CKTOTAL , CKMB , CKMBINDEX , TROPONINI No echocardiogram results found for the past 12 months No nuclear medicine results found for the past 12 months Relevant Imaging Results ECG 12 lead Atrial fibrillation with rapid ventricular response Left axis deviation Left bundle branch block Abnormal ECG When compared with ECG of 18-FEB-2025 19:10, No significant change was found Confirmed by MD KULDEEP, MARYAB ([id number]) on 02/19/2025 9:31:28 AM ECG 12 lead Atrial fibrillation with rapid ventricular response Left axis deviation Left bundle branch block Abnormal ECG No previous ECGs available Confirmed by MD ROSENBERG EHAB ([id number]) on 02/19/2025 8:53:08 AM ASSESSMENT acute HFrEF EF 10 to 15% probably tachycardia mediated with history of heart failure with improved ejection fraction persistent A-fib with RVR [id number] 2 Small pericardial effusion on Echo Primary hypertension ENA S/p gastric bypass PLAN continue rate control currently on metoprolol, digoxin will plan for BERNARDINO and cardioversion tomorrow once rhythm is restored we will plan for ischemia evaluation probably with coronary angiography continue GDMT for heart failure currently on valsartan, metoprolol, spironolactone will transition to Entresto and will add Farxiga if blood pressure tolerates cardiology will continue to follow This note was, at least in part, completed using a voice bottle inspector system. Every effort was made to ensure accuracy. However, inadvertent computerized bottle inspector errors may be present. Gabriele Yoder MD [1] Current Facility-Administered Medications: acetaminophen (Tylenol) tablet 650 mg, 650 mg, oral, q6h PRN, Carol Carter CNP, 650 mg at 311 digoxin (Lanoxin) tablet 250 mcg, 250 mcg, oral, Daily, Susan Mcpherson MD, 250 mcg at 02/21/25 0844 furosemide (Lasix) tablet 40 mg, 40 mg, oral, q12h, Gabriele Yoder MD heparin infusion 100 units/mL in D5W, 0-28 Units/kg/hr, intravenous, Continuous, Carol Carter CNP,Last Rate: 15.3 mL/hr at 02/21/25 1119, 13 Units/kg/hr at 02/21/25 1119 melatonin tablet 5 mg, 5 mg, oral, Nightly PRN, Carol Carter CNP metoprolol succinate XL (Toprol-XL) 24 hr tablet 100 mg, 100 mg, oral, 2 times daily, Gabriele Yoder MD, 100 mg at 02/21/25 0615 Insert peripheral IV, , , Once AND Saline lock IV, , , Once AND sodium chloride flush 10 mL, 10 mL, intravenous, q8h PRN, Carol Carter CNP spironolactone (Aldactone) tablet 25 mg, 25 mg, oral, Daily, Susan Mcpherson MD, 25 mg at 02/21/25 0843 valsartan (Diovan) tablet 80 mg, 80 mg, oral, Daily, Gabriele Yoder MD, 80 mg at 02/21/25 0844 Cosigned by Prabhu Chavez MD at 02/23/2025 11:13 AM EDT Associated attestation - Prabhu Chavez MD - 02/23/2025 11:13 AM EDT By using the attestations below, the signing clinician agrees that I have read and verify that thedocumentation has been personally reviewed by me and ensure that the documentation accurately reflects the encounter. GC: I performed the brumfield portion(s) of the service and participated in the management and confirm the resident's documentation. Please note there may be an additional personal documentation from me. * Suleiman Corcoran MD - 02/21/2025 10:09 AM EDT Images from the original note were not included. [facility] Medicine Daily Progress Note - 02/21/2025 10:09 AM; Room: [address] [place] [address] Admission: 02/18/2025 5:46 PM; Length of stay: 3 days THE HOSPITALIST TEAM PREFERS TO USE [employer] FOR NON-URGENT COMMUNICATION 7AM- 7PM. IF I DO NOT RESPOND WITHIN 20 MINUTES OR URGENT MATTERS, PLEASE CALL THROUGH THE BOOM SUPERVISOR. FROM 7PM-7AM, PLEASE PAGE [phone](COVR). Code Status: Full Code Barriers to Discharge: Afib with RVR, cardioversion tomorrow? Expected Discharge Date: Saturday Discharge Destination: home Overview Patient is seen for evaluation and management of Afib with RVR and HF exacerbation. Subjective Patient seen and examined in the morning. He was resting in recliner when seen. He denied chest pain. He was not requiring any oxygen. Cardiology seems to be planning for cardioversion tomorrow. He was in RVR and HR was ranging between 110s to 150s. Physical Exam Visit Vitals BP 101/84 Pulse 103 Temp 36.5 ??C (97.7 ??F) (Temporal) Resp 20 Intake/Output Summary (Last 24 hours) at 02/21/2025 1009 Last data filed at 02/21/2025 0911 Gross per 24 hour Intake 1206.64 ml Output 1650 ml Net -443.36 ml Physical Exam Vitals reviewed. Constitutional: General: He is not in acute distress. Appearance: He is not ill-appearing or toxic-appearing. HENT: Head: Normocephalic and atraumatic. Mouth/Throat: Mouth: Mucous membranes are moist. Eyes: General: No scleral icterus. Extraocular Movements: Extraocular movements intact. Pupils: Pupils are equal, round, and reactive to light. Cardiovascular: Rate and Rhythm: Normal rate. Pulmonary: Effort: Pulmonary effort is normal. No respiratory distress. Breath sounds: No stridor. Abdominal: General: There is no distension. Palpations: Abdomen is soft. Neurological: Mental Status: He is alert. Cranial Nerves: No cranial nerve deficit. Psychiatric: Mood and Affect: Mood normal. Behavior: Behavior normal. Thought Content: Thought content normal. Judgment: Judgment normal. Estimated body mass index is 35.44 kg/m?? as calculated from the following: Height as of this encounter: 1.727 m (5' 7.99 ). Weight as of this encounter: 106 kg (233 lb). Assessment and Plan Assessment & Plan Acute systolic CHF (congestive heart failure) ([facility]) - unable to assess NYHA class - BNP over 5000 at outside facility was 491 at [facility] -CXR showed cardiomegaly with vascular congestion and CT of the abdomen showed anasarca and ascites -Echocardiogram was completed at [place] which showed an EF of 15 to 20%, moderate pulmonary hypertension, moderate mitral valve regurgitation and small pericardial effusion - Continue Lasix 40 mg PO twice daily -Strict intake and output, daily weights. Currently net negative 8.4L - continue Toprol-XL 100mg daily and Aldactone 25 mg - Cardiology following, appreciate recommendations New onset a-fib (CMS/HCC) Atrial fibrillation with RVR (CMS/HCC) - Patient found to be in new onset atrial fibrillation at outside hospital, was initially on Cardizem drip but was discontinued due to low blood pressure - Patient was also initially given a dose of Xarelto at outside hospital, transitioned to heparin infusion. Will likely resume xarelto upon discharge - Continue Toprol-XL and loading dose digoxin, BERNARDINO cardioversion once euvolemic. Likely 02/21 -TSH WNL Primary hypertension - Continue current valsartan, spironolactone and Toprol-XL for GDMT - Blood pressure has been within acceptable range on 02/21 AM ENA (obstructive sleep apnea) - Stable, Patient currently not using CPAP S/P gastric bypass - Stable VTE Prophylaxis: IV heparin Scheduled Meds digoxin, 250 mcg, oral, Daily furosemide, 40 mg, oral, BID metoprolol succinate XL, 100 mg, oral, 2 times daily spironolactone, 25 mg, oral, Daily valsartan, 80 mg, oral, Daily heparin, 0-28 Units/kg/hr, Last Rate: 13 Units/kg/hr (02/21/25 0911) Pertinent Investigations Hematology: Results from last 7 days Lab Units 02/21/25 0355 02/20/25 0416 02/19/25 0418 02/18/25 1846 WBC AUTO 10*3/uL 7.24 -- 5.92 7.49 HEMOGLOBIN g/dL 15.4 14.8 13.9 14.4 HEMATOCRIT % 44.4 42.9 40.9 41.7 MCV fL 89.3 -- 91.9 91.2 PLATELETS AUTO 10*3/uL 177 -- 165 195 INR -- -- -- 1.47* Chemistry: Results from last 7 days Lab Units 02/21/25 0355 02/20/25 0416 02/19/25 0418 02/18/25 1846 SODIUM mmol/L 139 140 141 136 POTASSIUM mmol/L 4.0 3.8 3.8 4.0 CHLORIDE mmol/L 104 105 108* 108* CO2 mmol/L 26 25 25 21 BUN mg/dL 16 16 19 21 CREATININE mg/dL 0.99 0.99 1.07 1.02 GLUCOSE mg/dL 86 59* 75 88 MAGNESIUM mg/dL -- -- 1.9 2.1 CALCIUM mg/dL 8.9 8.7 8.3* 8.5* PHOSPHORUS mg/dL -- -- -- 2.7 Results from last 7 days Lab Units 02/18/25 1846 AST U/L 19 ALT U/L 30 ALK PHOS U/L 58 BILIRUBIN TOTAL mg/dL 3.6* Historical Values: (Includes values prior to this admission) Lab Results Component Value Date PREALBUMIN 11.1 (L) 08/28/2019 TSH 3.22 02/18/2025 No results found for: HTVGCIQY24 , IRON , TIBC , C3 , C4 , JANI , CANCA , ASO , PSA , CEA , CA125 , CA199 , AFP , CA153 Imaging ECG 12 lead Atrial fibrillation with rapid ventricular response Left axis deviation Left bundle branch block Abnormal ECG When compared with ECG of 18-FEB-2025 19:10, No significant change was found Confirmed by MD KULDEEP, EHAB ([id number]) on 02/19/2025 9:31:28 AM ECG 12 lead Atrial fibrillation with rapid ventricular response Left axis deviation Left bundle branch block Abnormal ECG No previous ECGs available Confirmed by MD KULDEEP, EHAB ([id number]) on 02/19/2025 8:53:08 AM Discharge Planning Expected Discharge Disposition: Home or Self Care () Signed Suleiman Corcoran MD [facility] Medicine 02/21/2025 10:09 AM * Kamran Del Valle MD - 02/20/2025 12:54 PM EDT Images from the original note were not included. [facility] Medicine Daily Progress Note - 02/20/2025 12:54 PM; Room: [address] [place] [address] Admission: 02/18/2025 5:46 PM; Length of stay: 2 days THE HOSPITALIST TEAM PREFERS TO USE [employer] FOR NON-URGENT COMMUNICATION 7AM- 7PM. IF I DO NOT RESPOND WITHIN 20 MINUTES OR URGENT MATTERS, PLEASE CALL THROUGH THE [employer]OM SUPER[employer]. FROM 7PM-7AM, PLEASE PAGE [phone](COVR). Code Status: Full Code Barriers to Discharge: Management of acute CHF and new onset A-fib Expected Discharge Date: 2 days Discharge Destination: home Overview Patient is seen for evaluation and management of CHF exacerbation and new onset A-fib. Subjective Seen today in his room, denies any chest pain or significant SOB Physical Exam Cardiovascular: Rate and Rhythm: Regularly, irregular Pulses: Normal pulses. Heart sounds: Normal heart sounds. Pulmonary: Effort: Pulmonary effort is normal. Abdominal: .Soft positive bowel sounds Tenderness: There is no abdominal tenderness. There is no guarding. Musculoskeletal: Right lower leg: Edema present. Left lower leg: Edema present. Skin: General: Skin is warm and dry. Capillary Refill: Capillary refill takes less than 2 seconds. Neurological: General: No focal deficit present. Visit Vitals BP 118/75 Pulse (!) 124 Temp 36.6 ??C (97.9 ??F) (Temporal) Resp 23 Intake/Output Summary (Last 24 hours) at 02/20/2025 1254 Last data filed at 02/20/2025 1000 Gross per 24 hour Intake 1346.28 ml Output 5850 ml Net -4503.72 ml Estimated body mass index is 37.02 kg/m?? as calculated from the following: Height as of this encounter: 1.727 m (5' 7.99 ). Weight as of this encounter: 110 kg (243 lb 6.4 oz). Assessment and Plan Assessment & Plan Acute systolic CHF (congestive heart failure) (CMS/[facility]) - unable to assess NYHA class - BNP over 5000 at outside facility was 491 at [facility] -CXR showed cardiomegaly with vascular congestion and CT of the abdomen showed anasarca and ascites -Echocardiogram was completed today at [place] which showed an EF of 15 to 20%, moderate pulmonaryhypertension, moderate mitral valve regurgitation and small pericardial effusion -Begin Lasix 40 mg IV twice daily -Strict intake and output, daily weights - continue lisinopril, Toprol-XL and Aldactone 25 mg New onset a-fib (CMS/HCC) - Patient found to be in new onset atrial fibrillation at outside hospital, was initially on Cardizem drip but was discontinued due to low blood pressure -Patient was also initially given a dose of Xarelto at outside hospital, will transition to heparininfusion -Continue Toprol-XL and loading dose digoxin, BERNARDINO cardioversion once euvolemic -TSH WNL Primary hypertension - Continue current lisinopril and Toprol-XL ENA (obstructive sleep apnea) - Stable,Patient currently not using CPAP S/P gastric bypass - Stable Patient has history of severe LVH VTE Prophylaxis: IV heparin Scheduled Meds digoxin, 250 mcg, oral, Daily furosemide, 40 mg, intravenous, BID AC lisinopril, 10 mg, oral, Daily metoprolol succinate XL, 100 mg, oral, 2 times daily spironolactone, 25 mg, oral, Daily heparin, 0-28 Units/kg/hr, Last Rate: 13 Units/kg/hr (02/20/25 1039) Pertinent Investigations Hematology: Results from last 7 days Lab Units 02/20/25 04102/19/2541702/18/25 1846 WBC AUTO 10*3/uL -- 5.92 7.49 HEMOGLOBIN g/dL 14.8 13.9 14.4 HEMATOCRIT % 42.9 40.9 41.7 MCV fL -- 91.9 91.2 PLATELETS AUTO 10*3/uL -- 165 195 INR -- -- 1.47* Chemistry: Results from last 7 days Lab Units 02/20/25 0416 02/19/25 0418 02/18/25 1846 SODIUM mmol/L 140 141 136 POTASSIUM mmol/L 3.8 3.8 4.0 CHLORIDE mmol/L 105 108* 108* CO2 mmol/L 25 25 21 BUN mg/dL 16 19 21 CREATININE mg/dL 0.99 1.07 1.02 GLUCOSE mg/dL 59* 75 88 MAGNESIUM mg/dL -- 1.9 2.1 CALCIUM mg/dL 8.7 8.3* 8.5* PHOSPHORUS mg/dL -- -- 2.7 Results from last 7 days Lab Units 02/18/25 1846 AST U/L 19 ALT U/L 30 ALK PHOS U/L 58 BILIRUBIN TOTAL mg/dL 3.6* Historical Values: (Includes values prior to this admission) Lab Results Component Value Date PREALBUMIN 11.1 (L) 08/28/2019 TSH 3.22 02/18/2025 No results found for: BZGISCUR24 , IRON , TIBC , C3 , C4 , JANI , CANCA , ASO , PSA , CEA , CA125 , CA199 , AFP , CA153 Imaging ECG 12 lead Atrial fibrillation with rapid ventricular response Left axis deviation Left bundle branch block Abnormal ECG When compared with ECG of 18-FEB-2025 19:10, No significant change was found Confirmed by MD KULDEEP, EHAB ([id number]) on 02/19/2025 9:31:28 AM ECG 12 lead Atrial fibrillation with rapid ventricular response Left axis deviation Left bundle branch block Abnormal ECG No previous ECGs available Confirmed by MD KULDEEP, EH ([id number]) on 02/19/2025 8:53:08 AM Discharge Planning Expected Discharge Disposition: Home or Self Care () Signed Kamran Del Valle MD Hospital Medicine 02/20/2025 12:54 PM * Julio Barnard MD - 02/20/2025 8:00 AM EDT Images from the original note were not included. . Cardiology Progress Note Subjective Pt denies chest pain, shortness of breath, nausea, vomiting, diarrhea. Vitally, the patient is afebrile but remains in A fib w/ RVR HR 110s-120s with SBP 100s- 120s. UO=-5.5L & lost 12 pounds overthe last 24 hours. Troponin 27->30->29->30. Labs pending. HPI: Lindsay Pinto is a 59 y.o. male with a PMHx of hypertension, severe LVH, ENA, obesity s/p gastric bypass presents as a direct mission for [facility] with progressively worsening dyspnea, abdominal swelling and anasarca in the setting of new onset A-fib as well as new onset systolic CHF. He had a CXR completed showing cardiomegaly with vascular congestion. CT of the abdomen was completed showing ascites and anasarca. Labs show a mild GILLIAN and an elevated BNP over 5000. EKG was completed showing A-fib with RVR which is new for the patient. He was given 2 doses of digoxin due to borderline hypotension and given a dose of Xarelto. Echocardiogram was completed showing a newly dropped EF of 15 to 20% with moderate pulmonary hypertension, moderate mitral valve regurgitation and a small pericardial effusion. He was transferred [facility] for higher level of care. At [facility], he was started on Lasix 40 mg IV BID and he has made nearly net negative 3L of urine. Vitally, he is afebrile, tachycardic in the 100s, BP 100/63, satting well on RA. Cardiac history: Severe LVH per 2019 Echo that showed LV dysfunction, EF 40% and Echo 05/14/23 showed improvement in EF 50-55%, aortic dilation, mitral valve regurg Cardiac workup: ECHO 05/14/2023: Global LV systolic function is low normal limits; visually estimated EF 50-55%. RVis normal in size and function. Normal diastolic function. Biatrial enlargement. Mild mitral regurg. Aortic root is mildly dilated. Trivial pericardial effusion is seen Objective Current Medications[1] Objective: Patient Vitals for the past 24 hrs: BP Temp Temp src Pulse Resp SpO2 Weight 02/20/25 0741 (!) 107/94 36.8 ??C (98.2 ??F) Temporal (!) 126 25 96 % -- 02/20/25 0400 124/90 36.8 ??C (98.2 ??F) -- 109 20 94 % -- 02/20/25 0347 -- -- -- -- -- -- 110 kg (243 lb 6.4 oz) 02/20/25 0000 (!) 121/98 -- -- (!) 111 17 96 % -- 02/19/25 1955 (!) 113/95 36.7 ??C (98 ??F) -- 106 18 98 % -- 02/19/25 1600 102/73 -- -- (!) 119 (!) 32 98 % -- 02/19/25 1200 124/85 -- -- (!) 125 24 98 % -- 02/19/25 1122 -- -- -- (!) 120 -- -- -- 02/19/25 0851 (!) 116/95 -- -- -- -- -- -- 02/19/25 0849 (!) 116 36.2 ??C (97.2 ??F) -- (!) 116 26 96 % -- Physical Examination: Physical Exam Constitutional: Appearance: Normal appearance. Cardiovascular: Rate and Rhythm: Tachycardia present. Rhythm irregular. Pulses: Normal pulses. Heart sounds: Normal heart sounds. Pulmonary: Effort: Pulmonary effort is normal. No respiratory distress. Breath sounds: Normal breath sounds. Abdominal: General: Bowel sounds are normal. There is no distension. Palpations: Abdomen is soft. Musculoskeletal: Right lower leg: Edema present. Left lower leg: Edema present. Neurological: General: No focal deficit present. Mental Status: He is oriented to person, place, and time. Relevant Lab Results Encounter Date: 02/18/25 ECG 12 lead Result Value Ventricular Rate 104 QRS DURATION 182 QT Interval 334 QTC CALCULATION(BAZETT) 439 R-Moselle -41 T Wave Moselle 144 Impression Atrial fibrillation with rapid ventricular response Left axis deviation Left bundle branch block Abnormal ECG When compared with ECG of 18-FEB-2025 19:10, No significant change was found Confirmed by MD KULDEEP, EHAB ([id number]) on 02/19/2025 9:31:28 AM No results found for: CKTOTAL , CKMB , CKMBINDEX , TROPONINI No echocardiogram results found for the past 12 months No nuclear medicine results found for the past 12 months Relevant Imaging Results ECG 12 lead Atrial fibrillation with rapid ventricular response Left axis deviation Left bundle branch block Abnormal ECG When compared with ECG of 18-FEB-2025 19:10, No significant change was found Confirmed by MD KULDEEP, EHAB ([id number]) on 02/19/2025 9:31:28 AM ECG 12 lead Atrial fibrillation with rapid ventricular response Left axis deviation Left bundle branch block Abnormal ECG No previous ECGs available Confirmed by MD KULDEEP, EHAB ([id number]) on 02/19/2025 8:53:08 AM ASSESSMENT Acute systolic heart failure New onset A fib (CHADSVASC score 2) Small pericardial effusion on Echo Primary hypertension ENA S/p gastric bypass PLAN Increase rate control Toprol XL 100 mg BID & continue digoxin 250 mcg daily. Tentatively scheduled for BERNARDINO Cardioversion on 02/22. Will start amiodarone on the day prior to cardioversion Continue Lasix 40 mg IV BID. Daily Is and Os. Standing weights. UO=-8.6L since admission Optimize GDMT: Toprol XL 100 mg daily, Aldactone 25 mg daily, lisinopril 10 mg daily. Remainder of care as per primary team and other consultative services Cardiology team will continue to follow This note was, at least in part, completed using a voice bottle inspector system. Every effort was made to ensure accuracy. However, inadvertent computerized bottle inspector errors may be present. Julio Barnard MD PGY-2 Internal Medicine Cardiology Consult Service [facility] [1] Current Facility-Administered Medications: acetaminophen (Tylenol) tablet 650 mg, 650 mg, oral, q6h PRN, Carlomadison Carter, VACATION PLANNER digoxin (Lanoxin) tablet 250 mcg, 250 mcg, oral, Daily, Susan Mcpherson MD furosemide (Lasix) injection 40 mg, 40 mg, intravenous, BID AC, Carol Pirkl, VACATION PLANNER, 40 mg at 02/20/25 0645 heparin infusion 100 units/mL in D5W, 0-28 Units/kg/hr, intravenous, Continuous, Carol Raul, VACATION PLANNER,Last Rate: 17.7 mL/hr at 02/20/25 0621, 15 Units/kg/hr at 02/20/25 0621 lisinopril tablet 10 mg, 10 mg, oral, Daily, Carol Pirkl, VACATION PLANNER, 10 mg at 02/19/25 0851 melatonin tablet 5 mg, 5 mg, oral, Nightly PRN, Carol Pirkl, VACATION PLANNER metoprolol succinate XL (Toprol-XL) 24 hr tablet 100 mg, 100 mg, oral, 2 times daily, Gabriele Yoder MD Insert peripheral IV, , , Once AND Saline lock IV, , , Once AND sodium chloride flush 10 mL, 10 mL, intravenous, q8h PRN, Carolmadison Carter VACATION PLANNER spironolactone (Aldactone) tablet 25 mg, 25 mg, oral, Daily, Susan Mcpherson MD, 25 mg at 02/19/25 1539 Cosigned by Prabhu Chavez MD at 02/21/2025 7:35 AM EDT Associated attestation - Prabhu Chavez MD - 02/21/2025 7:35 AM EDT By using the attestations below, the signing clinician agrees that I have read and verify that thedocumentation has been personally reviewed by me and ensure that the documentation accurately reflects the encounter. GC: I performed the brumfield portion(s) of the service and participated in the management and confirm the resident's documentation. Please note there may be an additional personal documentation from me. * Kamran Del Valle MD - 02/19/2025 2:34 PM EDT Images from the original note were not included. Hospital Medicine Daily Progress Note - 02/19/2025 2:34 PM; Room: [address] [place] [address] Admission: 02/18/2025 5:46 PM; Length of stay: 1 days THE HOSPITALIST TEAM PREFERS TO USE [employer] FOR NON-URGENT COMMUNICATION 7AM- 7PM. IF I DO NOT RESPOND WITHIN 20 MINUTES OR URGENT MATTERS, PLEASE CALL THROUGH THE BOOM SUPERVISOR. FROM 7PM-7AM, PLEASE PAGE [phone](COVR). Code Status: Full Code Barriers to Discharge: Management of acute CHF and new onset A-fib Expected Discharge Date: 2 days Discharge Destination: home Overview Patient is seen for evaluation and management of CHF exacerbation and new onset A-fib. Subjective Seen today in his room, breathing better and denies any chest pain Physical Exam Cardiovascular: Rate and Rhythm: Regularly, irregular Pulses: Normal pulses. Heart sounds: Normal heart sounds. Pulmonary: Effort: Pulmonary effort is normal. Abdominal: .Soft positive bowel sounds Tenderness: There is no abdominal tenderness. There is no guarding. Musculoskeletal: Right lower leg: Edema present. Left lower leg: Edema present. Skin: General: Skin is warm and dry. Capillary Refill: Capillary refill takes less than 2 seconds. Neurological: General: No focal deficit present. Visit Vitals BP (!) 116/95 Pulse (!) 120 Temp 36.2 ??C (97.2 ??F) Resp 26 Intake/Output Summary (Last 24 hours) at 02/19/2025 1434 Last data filed at 02/19/2025 1103 Gross per 24 hour Intake 651.15 ml Output 4450 ml Net -3798.85 ml Estimated body mass index is 38.78 kg/m?? as calculated from the following: Height as of this encounter: 1.727 m (5' 7.99 ). Weight as of this encounter: 116 kg (255 lb). Assessment and Plan Assessment & Plan Acute systolic CHF (congestive heart failure) ([facility]) - unable to assess NYHA class - BNP over 5000 at outside facility was 491 at [facility] -CXR showed cardiomegaly with vascular congestion and CT of the abdomen showed anasarca and ascites -Echocardiogram was completed today at [place] which showed an EF of 15 to 20%, moderate pulmonaryhypertension, moderate mitral valve regurgitation and small pericardial effusion -Patient noted to have EF 55% and this is significant drop in EF her -Begin Lasix 40 mg IV twice daily -Strict intake and output, daily weights - continue lisinopril, Toprol-XL and Aldactone 25 mg -Patient to have cardiac cath New onset a-fib ([facility]) - Patient found to be in new onset atrial fibrillation at outside hospital, was initially on Cardizem drip but was discontinued due to low blood pressure -Patient was also initially given a dose of Xarelto at outside hospital, will transition to heparininfusion -Continue Toprol-XL and loading dose digoxin, possible BERNARDINO cardioversion. - -TSH WNL Primary hypertension - Continue current lisinopril and Toprol-XL ENA (obstructive sleep apnea) - Stable,Patient currently not using CPAP S/P gastric bypass - Stable Patient has history of severe LVH VTE Prophylaxis: IV heparin Scheduled Meds [START ON 02/20/2025] digoxin, 250 mcg, oral, Daily furosemide, 40 mg, intravenous, BID AC lisinopril, 10 mg, oral, Daily metoprolol succinate XL, 100 mg, oral, Daily spironolactone, 25 mg, oral, Daily heparin, 0-28 Units/kg/hr, Last Rate: 15 Units/kg/hr (02/19/25 0952) Pertinent Investigations Hematology: Results from last 7 days Lab Units 02/19/25 0418 02/18/25 1846 WBC AUTO 10*3/uL 5.92 7.49 HEMOGLOBIN g/dL 13.9 14.4 HEMATOCRIT % 40.9 41.7 MCV fL 91.9 91.2 PLATELETS AUTO 10*3/uL 165 195 INR -- 1.47* Chemistry: Results from last 7 days Lab Units 02/19/25 0418 02/18/25 1846 SODIUM mmol/L 141 136 POTASSIUM mmol/L 3.8 4.0 CHLORIDE mmol/L 108* 108* CO2 mmol/L 25 21 BUN mg/dL 19 21 CREATININE mg/dL 1.07 1.02 GLUCOSE mg/dL 75 88 MAGNESIUM mg/dL 1.9 2.1 CALCIUM mg/dL 8.3* 8.5* PHOSPHORUS mg/dL -- 2.7 Results from last 7 days Lab Units 02/18/25 1846 AST U/L 19 ALT U/L 30 ALK PHOS U/L 58 BILIRUBIN TOTAL mg/dL 3.6* Historical Values: (Includes values prior to this admission) Lab Results Component Value Date PREALBUMIN 11.1 (L) 08/28/2019 TSH 3.22 02/18/2025 No results found for: [id number] , IRON , TIBC , C3 , C4 , JANI , CANCA , ASO , PSA , CEA , CA125 , CA199 , AFP , CA153 Imaging ECG 12 lead Atrial fibrillation with rapid ventricular response Left axis deviation Left bundle branch block Abnormal ECG When compared with ECG of 18-FEB-2025 19:10, No significant change was found Confirmed by MD KULDEEP, EHAB ([id number]) on 02/19/2025 9:31:28 AM ECG 12 lead Atrial fibrillation with rapid ventricular response Left axis deviation Left bundle branch block Abnormal ECG No previous ECGs available Confirmed by MD KULDEEP, EHAB ([id number]) on 02/19/2025 8:53:08 AM Discharge Planning Expected Discharge Disposition: Home or Self Care () Signed Kamran Del Valle MD [facility] Medicine 02/19/2025 2:34 PM * Bell Esquivel RN - 02/19/2025 12:02 PM EDT Pt admitted to hospital for acute systolic CHF. Pt's echo from [facility] on 02/18/25 estimated LVEF 15-20%, which qualifies pt for cardiac rehab (CR) therapy with HF diagnosis. Medicare defines chronic heart failure as ???patients with left ventricular ejection fraction (LVEF) of 35% or less and [employer] Heart Association (NYHA) class II to IV symptoms despite being on optimal heart failure therapy for at least 6 weeks.?? I will watch for updates and follow up with pt, if appropriate. CARIDAD Glaser baggage porter head Outpatient Coordinator Cardiopulmonary Rehab documented in this encounter H&P Notes * Norm North MD - 02/22/2025 7:44 AM EDT Images from the original note were not included. Medical ICU History & Physical Patient - Lindsay Pinto Age - 59 y.o. - 1965 Date of Admission - 02/18/2025 5:46 PM Chief Complaint Hypotension History of Present Illness Lindsay Pinto is a 59 y.o. male with past medical history of HTN, ENA, HFrEF, and gastric bypass who presented to an OSH for constipation and bloating. He was found to have new onset a-fib and EF of15-20% dropped from 50-55%. Initial HPI from hospitalist note on 02/18: Lindsay Pinto is an 59 y.o. 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 Patient initially presenting to [place] with bloating and constipation. He states that for the past few weeks he has been having abdominal swelling, bloating. He states associated shortness of breath with exertion. He denies chest pain, nausea, vomiting. He does state mild fatigue. He had a CXR completed showing cardiomegaly with vascular congestion. CT of the abdomen was completed showing ascites and anasarca. Labs show a mild GILLIAN and an elevated BNP over 5000. EKG was completed showing A-fib with RVR which is new for the patient. He was given2 doses of digoxin due to borderline hypotension and given a dose of Xarelto. Echocardiogram was completed showing a newly dropped EF of 15 to 20% with moderate pulmonary hypertension, moderate mitral valve regurgitation and a small pericardial effusion. He was transferred [facility] for higher level of care. Patient does follow with cardiology outpatient for LVH. Per cardiology note, the echocardiogram performed on 05/14/2023 showed LVH with an improvement in EF to 50-55%. His latest echocardiogram did show a significant drop in EF. Cardiology is onboard inpatient for his new-onset atrial fibrillation with RVR. Patient was intially treated with a Cardizem drip; however, it was discontinue due to hypot ension. He has been treated with Toprol XL 100 mg BID and digoxin 250 mcg daily. He is scheduled for BERNARDINO and cardioversion today. CT abdomen and pelvis was performed yesterday for ongoing lower abdominal pain. It did reveal The right and left rectus abdominal muscles are abnormal and contain hematomas. The left is larger in size. Hemoglobin did drop from 15.4 to 14.0, but most recent hemoglobin this morning is 14.5 with a hematocrit of 42.9. MICU was consulted after a rapid response was called around 7 AM for hypotension with a BP of 53/38. He was seen and examined at bedside this morning. Blood pressure is now stable with the most recentpressure of 110/72. The patient is speaking in full sentences. He denies any CP or SOB. He also denies lightheadedness, dizziness, or nausea. He endorses continued abdominal pain that has been present for the past two days. He states that is started after he took a shower and felt tired, so he jumped on his bed. He then felt a sudden pain. He does endorse constipation. Last bowel movement was twodays ago. Patient had another episode of hypotension this morning with a recorded blood pressure of 52/34. Hewas given albumin and 250 cc lactated ringer and transferred to the MICU for hemodynamic instability. PMH: has a past medical history of Hypertension, Obesity, and ENA (obstructive sleep apnea). PSH: has a past surgical history that includes Cardiac catheterization (05/28/2016); Tonsillectomy;Gastric bypass; and Shoulder surgery. SH: reports that he has never smoked. He has never used smokeless tobacco. He reports current alcohol use. Alc/Tobacco/Drug: reports current alcohol use. reports that he has never smoked. He has never used smokeless tobacco. has no history on file for drug use. Medications: Current Medications[1] Allergies: Patient has no known allergies. Family history: family history includes Cancer in his father; Coronary artery disease in his father; Hypertension in his father and mother. Review of Systems: Review of Systems Constitutional: Negative for chills and fever. Respiratory: Negative for cough and shortness of breath. Cardiovascular: Positive for leg swelling. Negative for chest pain. Gastrointestinal: Positive for abdominal pain (Lower abdominal, worse in LLQ). Negative for nausea. Skin: Negative for rash and wound. Neurological: Negative for dizziness and light-headedness. Physical Exam Ht Readings from Last 1 Encounters: 02/18/25 1.727 m (5' 7.99 ) Wt Readings from Last 1 Encounters: 02/22/25 106 kg (233 lb 11 oz) height is 1.727 m (5' 7.99 ) and weight is 106 kg (233 lb 11 oz). His temporal temperature is 36.4 ??C (97.5 ??F). His blood pressure is 103/85 and his pulse is 127 (abnormal). His respiration is 17 and oxygen saturation is 100%. Intake/Output Summary (Last 24 hours) at 02/22/2025 0744 Last data filed at 02/22/2025 0700 Gross per 24 hour Intake 1308.66 ml Output 1325 ml Net -16.34 ml General: No acute distress HEENT: Normocephalic, atraumatic, EOMI, no scleral icterus or erythema Neck: Supple, trachea midline, no masses noted Cardiovascular: Tachycardic with an irregularly irregular rhythm, no murmur Respiratory: No acute respiratory distress, clear to auscultation bilaterally, no wheezing, no rales Abdomen: Soft, tenderness to the lower abdomen worse in the LLQ, nondistended, no rebound, no ecchymosis noted Extremities: No cyanosis, bilateral 1+ pitting edema Neuro: No focal deficits Skin: Warm, dry, no rashes, jaundiced Labs/Imaging Labs: ABG: No results found for: PHART , [id number] , PO2ART , TGJ6NVF , IONCALART No results found for: PHVEN , [id number] , PO2VEN , RTO6NWB , IONCALVEN CBC: Results from last 7 days Lab Units 02/22/25 0707 02/22/25 0658 02/22/25 0500 02/21/25 0355 WBC AUTO 10*3/uL -- 10.73* 12.27* 7.24 HEMOGLOBIN g/dL 14.5 14.0 15.4 15.4 HEMATOCRIT % 42.9 42.5 45.0 44.4 PLATELETS AUTO 10*3/uL -- 224 242 177 Coagulation: Results from last 7 days Lab Units 02/21/25 0355 02/20/25 0939 02/19/25 0819 02/19/25 0125 02/18/25 1846 APTT Seconds 117.9* 169.6* 154.5* < > 32.7 INR -- -- -- -- 1.47* < > = values in this interval not displayed. Metabolic Panel: Results from last 7 days Lab Units 02/22/25 0658 02/22/25 0500 02/21/25 0355 02/20/25 0416 02/19/25 0418 02/18/25 1846 SODIUM mmol/L -- -- 139 140 141 136 POTASSIUM mmol/L -- -- 4.0 3.8 3.8 4.0 CHLORIDE mmol/L -- -- 104 105 108* 108* CO2 mmol/L -- -- 26 25 25 21 BUN mg/dL -- -- 16 16 19 21 CREATININE mg/dL -- -- 0.99 0.99 1.07 1.02 GLUCOSE mg/dL -- -- 86 59* 75 88 CALCIUM mg/dL -- -- 8.9 8.7 8.3* 8.5* PHOSPHORUS mg/dL -- -- -- -- -- 2.7 MAGNESIUM mg/dL 1.8* 2.0 -- -- 1.9 2.1 Liver Panel: Results from last 7 days Lab Units 02/18/25 1846 ALBUMIN g/dL 3.6 BILIRUBIN TOTAL mg/dL 3.6* ALT U/L 30 AST U/L 19 ALK PHOS U/L 58 Glucose: Hgb A1c: Cardiac: Results from last 7 days Lab Units 02/18/25 1846 BNP pg/mL 491* Anemia Labs: Lipid Panel: No lab exists for component: CHOLHDL Urine Labs: No results found for: WBCU , UROBILINOGEN Additional Labs: No lab exists for component: LACTICACID , PROCALCITON Imaging: ECG 12 lead Atrial fibrillation with rapid ventricular response Left bundle branch block Abnormal ECG Micro: No results found for: BLOOD CULTURE , URINE CULTURE , WOUND CULTURE , CSF CULTURE , TISSUE CULTURE ONLY ASSESSMENT & PLAN Unspecific shock likely secondary to a-fib with RVR or newly reduced EF or rectus hematoma Placing a-line. May need CVC pending hemodynamic requirements Monitor blood pressure. Patient is not currently requiring pressors New-onset A-fib with RVR with left bundle branch block S/p Cardizem drip discontinued due to hypotension On heparin infusion since 02/18 Continue Toprol-XL and digoxin Plan for BERNARDINO and cardioversion today [id number] score of 2 Acute decompensated systolic heart failure, EF of 15% Cardiology will plan for ischemic work-up once rhythm is normalized Patient is on valsartan, metoprolol, and spironolactone Holding valsartan, metoprolol, and spironolactone 02/22 due to hypotension Holding diuresis Plan to transition to Entresto and add Farxiga once blood pressure improves Trending troponins Bilateral rectus hematoma larger on left Trend H and H q6, given CT findings of hematoma. Hemoglobin has been stable. Leukocytosis, likely reactive WBC of 12.27 Lactate on 02/22 was 2.2, repeat decreased to 1.6 Peripheral blood cultures x2 pending Plan for CT chest and CT abdomen and pelvis Jaundice with hyperbilirubinemia Total bilirubin 4.8 increased from 3.6 two days ago Total bilirubin 2.4 5 years ago LFTs within normal limits HTN ENA Obesity s/p gastric bypass surgery DVT prophylaxis: None GI prophylaxis: None Lines: Peripheral IV Diet: NPO Dietary Orders (From admission, onward) Start Ordered 02/22/25 0001 Diet NPO Diet effective midnight Comments: Sips with medications Question: Reason for NPO: Answer: Operation/Procedure 02/21/25 0813 02/19/25 1215 Dietary nutrition supplements Breakfast; Boost Glucose Control; Chocolate; 8 oz; OralUntil discontinued Question Answer Comment Deliver with Breakfast Select supplement: Boost Glucose Control Flavor: Chocolate Strength: 8 oz Route Oral 02/19/25 1214 Code Status: Full Code Signed NATHALIE Vizcarra [facility] Norm North MD Critical Care Fellow PGY 6 02/22/2025 7:44 AM This note was created with the assistance of a speech-recognition program. While intending to generate a document that accurately reflects the content of the visit, no guarantee can be provided that every mistake has been identified and corrected by editing. [1] Current Facility-Administered Medications: acetaminophen (Tylenol) tablet 650 mg, 650 mg, oral, q6h PRN, Carol Carter CNP, 650 mg at 244 digoxin (Lanoxin) tablet 250 mcg, 250 mcg, oral, Daily, Susan Mcpherson MD, 250 mcg at 02/21/25 0844 furosemide (Lasix) tablet 40 mg, 40 mg, oral, q12h, Gabriele Yoder MD, 40 mg at 02/21/25 2255 heparin infusion 100 units/mL in D5W, 0-28 Units/kg/hr, intravenous, Continuous, Carol Carter CNP,Last Rate: 16.9 mL/hr at 02/22/25 0624, 14.3 Units/kg/hr at 02/22/25 0624 HYDROcodone-acetaminophen (Montrose) 5-325 mg per tablet 1 tablet, 1 tablet, oral, q6h PRN, Suleiman Corcoran MD, 1 tablet at 02/21/25 2240 magnesium sulfate in D5W IVPB 1 g, 1 g, intravenous, Once, Dell Handley MD, Last Rate: 100 mL/hr at 02/22/25 0650, 1 g at 02/22/25 0650 melatonin tablet 5 mg, 5 mg, oral, Nightly PRN, Carol Carter CNP metoprolol succinate XL (Toprol-XL) 24 hr tablet 100 mg, 100 mg, oral, 2 times daily, Gabriele Yoder MD, 100 mg at 02/21/25 1630 metoprolol tartrate (Lopressor) injection 5 mg, 5 mg, intravenous, Once, Gabriele Yoder MD Insert peripheral IV, , , Once AND Saline lock IV, , , Once AND sodium chloride flush 10 mL, 10 mL, intravenous, q8h PRN, Carol Carter CNP spironolactone (Aldactone) tablet 25 mg, 25 mg, oral, Daily, Susan Mcpherson MD, 25 mg at 02/21/25 0843 valsartan (Diovan) tablet 80 mg, 80 mg, oral, Daily, Gabriele Yoder MD, 80 mg at 02/21/25 0844 Cosigned by Ruth Kramer MD at 02/24/2025 9:39 AM EDT Associated attestation - Ruth Kramer MD - 02/24/2025 9:39 AM EDT The patient was seen and examined with the resident/fellow on the same date of service, I discussedthe findings and therapeutic plan and agree with the documentation, assessment and plan as above except for any edits/updates below. Critical Care services were required for the patient due to critical condition: Circulatory shock due to Afib and acute blood loss New onset Afib with RVR and LBBB Decompensated CHFrEF 15% Bilateral rectus sheath hematoma spontaneous in the setting of anticoagulation Hyperbilirubinemia GILLIAN - prerenal EAN Morbid obesity s/p gastric bypass I personally provided direct critical care services consisting of: S/P IVF resuscitation, monitor H and H and transfused for hemoglobin less than 7 Hold anticoagulation Amiodarone infusion Vasopressors to keep MAP above 65 mmHg Hold GDMT Empiric antibiotics Trend Bilirubin DVT and GI prophylaxis Critical Care minutes were 35, which excludes time performing separately billed procedures, updating family, and teaching. * Carol Carter CNP - 02/18/2025 6:59 PM EDT Images from the original note were not included. Hospital Medicine History and Physical 02/18/2025 6:59 PM THE HOSPITALIST TEAM PREFERS TO USE [employer] FOR NON-URGENT COMMUNICATION 7AM- 7PM. IF I DO NOT RESPOND WITHIN 20 MINUTES OR URGENT MATTERS, PLEASE CALL THROUGH THE BOOM SUPERVISOR. FROM 7PM-7AM, PLEASE PAGE [phone](COVR). Chief Complaint Direct admission from [facility] with new afib/CHF History of Present Illness Lindsay Pinto is an 59 y.o. male who came from home with past medical history of hypertension, severe LVH, ENA, obesity s/p gastric bypass presents as a direct mission for [facility] with newonset A-fib as well as new onset systolic CHF. Patient initially presenting to [place] with bloating and constipation. He states that for the past few weeks he has been having abdominal swelling, bloating. He states associated shortness of breath with exertion. He denies chest pain, nausea, vomiting. He does state mild fatigue. He had a CXR completed showing cardiomegaly with vascular congestion. CT of the abdomen was completed showing ascites and anasarca. Labs show a mild GILLIAN and an elevatedBNP over 5000. EKG was completed showing A-fib with RVR which is new for the patient. He was given 2 doses of digoxin due to borderline hypotension and given a dose of Xarelto. Echocardiogram was completed showing a newly dropped EF of 15 to 20% with moderate pulmonary hypertension, moderate mitralvalve regurgitation and a small pericardial effusion. He was transferred [facility] for higher level of care. Review of System and Physical Exam Heart Rate: [113-144] 113 Resp: [17-28] 17 BP: (117)/(94) 117/94 Physical Exam Vitals reviewed. Constitutional: Appearance: He is normal weight. HENT: Head: Normocephalic. Nose: Nose normal. Mouth/Throat: Mouth: Mucous membranes are dry. Pharynx: Oropharynx is clear. Eyes: Conjunctiva/sclera: Conjunctivae normal. Cardiovascular: Rate and Rhythm: Normal rate and regular rhythm. Pulses: Normal pulses. Heart sounds: Normal heart sounds. Pulmonary: Effort: Pulmonary effort is normal. Abdominal: General: There is distension. Tenderness: There is no abdominal tenderness. There is no guarding. Musculoskeletal: Right lower leg: Edema present. Left lower leg: Edema present. Skin: General: Skin is warm and dry. Capillary Refill: Capillary refill takes less than 2 seconds. Neurological: General: No focal deficit present. Mental Status: He is alert and oriented to person, place, and time. Mental status is at baseline. Psychiatric: Mood and Affect: Mood normal. Review of Systems Constitutional: Negative for appetite change, chills, diaphoresis, fatigue and fever. HENT: Negative for congestion and dental problem. Respiratory: Positive for shortness of breath. Negative for chest tightness. Cardiovascular: Positive for leg swelling. Negative for chest pain and palpitations. Gastrointestinal: Positive for abdominal distention and constipation. Negative for abdominal pain, diarrhea, nausea and vomiting. Genitourinary: Negative for difficulty urinating and dysuria. Musculoskeletal: Negative for arthralgias and back pain. Skin: Negative for color change and pallor. Neurological: Negative for dizziness, seizures, facial asymmetry, light- headedness, numbness and headaches. Psychiatric/Behavioral: Negative for agitation, behavioral problems, confusion and decreased concentration. Assessment and Plan Assessment & Plan Acute systolic CHF (congestive heart failure) ([facility]) - BNP over 5000 at outside facility was 491 at [facility] -CXR showed cardiomegaly with vascular congestion and CT of the abdomen showed anasarca and ascites -Echocardiogram was completed today at [place] which showed an EF of 15 to 20%, moderate pulmonaryhypertension, moderate mitral valve regurgitation and small pericardial effusion -Begin Lasix 40 mg IV twice daily -Strict intake and output, daily weights -Will make n.p.o. for possible right heart cath -Troponin mildly elevated, likely type II, will continue to trend New onset a-fib ([facility]) - Patient found to be in new onset atrial fibrillation at outside hospital, was initially on Cardizem drip but was discontinued due to low blood pressure -Patient was also initially given a dose of Xarelto at outside hospital, will transition to heparininfusion -Blood pressure still borderline, 5 mg IV Lopressor given without relief, will initiate digoxin IV loading dose, electrolytes within normal limits -TSH WNL Pericardial effusion - Small pericardial effusion noted on echocardiogram, cardiology consult Moderate mitral valve regurgitation - Cardiology consult Primary hypertension - Continue labetalol ENA (obstructive sleep apnea) - Stable S/P gastric bypass - Stable VTE Prophylaxis: IV heparin ----- Focus of this inpatient stay will remain on problems that need acute care setting for care. We will review available studies and will order additional labs, imaging and other studies as appropriate. As needed medicines are ordered as appropriate. VTE Prophylaxis will be ordered as appropriate. Please see above for management plan for individual hospital problems. Home medications are reviewed and will be continued as appropriate. Patient will be continued to be followed during this hospital stay by a member of [facility]. Past Medical History Medical History[1] Past Surgical History Surgical History[2] Social History Social History Socioeconomic History Marital status: Single Spouse name: Not on file Number of children: Not on file Years of education: Not on file Highest education level: Not on file Occupational History Not on file Tobacco Use Smoking status: Never Smokeless tobacco: Never Substance and Sexual Activity Alcohol use: Yes Comment: occasional Drug use: Not on file Sexual activity: Not on file Other Topics Concern Not on file Social History Narrative Not on file Social Drivers of Health Financial Resource Strain: Low Risk (02/18/2025) Overall Financial Resource Strain (CARDIA) Difficulty of Paying Living Expenses: Not hard at all Food Insecurity: No Food Insecurity (02/18/2025) Hunger Vital Sign Worried About Running Out of Food in the Last Year: Never true Ran Out of Food in the Last Year: Not on file Transportation Needs: No Transportation Needs (02/18/2025) Transportation Lack of Transportation (Medical): No Lack of Transportation (Non-Medical): Not on file Physical Activity: Not on file Stress: Not on file Social Connections: Not on file Intimate Partner Violence: Unknown (02/18/2025) Humiliation, Afraid, Rape, and Kick questionnaire Fear of Current or Ex-Partner: No Emotionally Abused: Not on file Physically Abused: Not on file Sexually Abused: Not on file Housing Stability: Low Risk (02/18/2025) Housing Stability Vital Sign Unable to Pay for Housing in the Last Year: No Number of Times Moved in the Last Year: 1 Homeless in the Last Year: No Family History family history includes Cancer in his father; Coronary artery disease in his father; Hypertension in his father and mother. Allergies has no known allergies. Prior to Admission Medications Prescriptions Prior to Admission[3] Labs Labs Reviewed COMPREHENSIVE METABOLIC PANEL LACTIC ACID, PLASMA MAGNESIUM PHOSPHORUS HIGH SENSITIVITY TROPONIN I PROTIME-INR CBC AND DIFFERENTIAL Narrative: The following orders were created for panel order CBC and differential. Procedure Abnormality Status --------- ------ CBC auto differential[[id number]] Please view results for these tests on the individual orders. B-TYPE NATRIURETIC PEPTIDE TSH3 REFLEX TO FT4 CBC WITH AUTO DIFFERENTIAL APTT APTT ANTI-XA (HEPARIN LEVEL) APTT PLATELET COUNT Imaging No image results found. Signed [facility] Medicine 02/18/2025 6:59 PM [1] Past Medical History: Diagnosis Date Hypertension Obesity ENA (obstructive sleep apnea) [2] Past Surgical History: Procedure Laterality Date CARDIAC CATHETERIZATION 05/28/2016 GASTRIC BYPASS SHOULDER SURGERY TONSILLECTOMY [3] Medications Prior to Admission Medication Sig Dispense Refill Last Dose/Taking furosemide (Lasix) 40 mg tablet Take 1 tablet (40 mg) by mouth two times daily. 180 tablet 3 Past Week labetalol (Normodyne) 200 mg tablet Take 1 tablet (200 mg) by mouth before breakfast, before lunch,and before evening meal. 270 tablet 3 Past Week lisinopril 10 mg tablet Take 1 tablet (10 mg) by mouth in the morning. 90 tablet 3 Past Week ferrous sulfate 325 (65 Fe) MG tablet Take 65 mg by mouth in the morning and at bedtime. (Patient not taking: Reported on 02/18/2025) More than a month Cosigned by Dell Handley MD at 02/20/2025 3:43 AM EDT documented in this encounter Procedure Notes * Norm North MD - 02/22/2025 6:48 PM EDT Images from the original note were not included. US guided Central line placement Pre-op Diagnosis: Shock Post-op Diagnosis: Shock Attending physician: Dr. Mary MD Fellow: Norm North MD Consent: urgent procedure Time-out: A time-out was completed verifying correct patient, site, and procedure. Procedure summary: The patient was placed in Supine position. The patient's left neck region was prepped and draped insterile fashion using chlorohexidine scrub. Anesthesia was achieved with 1% lidocaine as local anesthetic. The left internal jugular vein was accessed under ultrasound guidance using an introducer needle. Venous, non- pulsatile blood was withdrawn. The syringe was removed and a guidewire was advanced into the introducer needle. A small incision was made at the skin surface with a scalpel and the introducer needle was exchanged for a dilator over the guidewire. After appropriate dilation, the central venous catheter was inserted. The wire was removed and the catheter was sutured in place. Area was cleaned and Tegaderm applied. The patient tolerated the procedure without any hemodynamic compromise. At time of procedure completion, all ports aspirated and flushed properly. COMPLICATIONS: None ESTIMATED BLOOD LOSS: 5 ml Norm North MD Critical Care Fellow PGY 6 Cosigned by Ruth Kramer MD at 02/23/2025 4:45 PM EDT Associated attestation - Ruth Kramer MD - 02/23/2025 4:45 PM EDT I was present and supervised the procedure * Norm North MD - 02/22/2025 6:46 PM EDT Images from the original note were not included. US guided Arterial line placement Pre-op Diagnosis: Hypotension and shock Post-op Diagnosis: Hypotension and shock Indication: Continuous and accurate blood pressure monitoring. Attending physician: Dr. Mary MD Fellow: Norm North MD Consent: obtained Time-out: A time-out was completed verifying correct patient, site, and procedure. Procedure summary: The patient was placed in supine position. The left arm area was prepped and draped in a sterile manner using a chlorhexidine scrub. The left brachial artery was palpated, visualized using ultrasoundand successfully cannulated on the first pass using ultrasound guidance, the guiding wire was inserted. The catheter was placed over the guidewire without any difficulty. Following, the guidewire wasremoved, the catheter was connected to the monitoring system and a good arterial wave form was observed on the monitor. Then the catheter was sutured into place and a sterile dressing was applied. The patient tolerated the procedure well COMPLICATIONS: None ESTIMATED BLOOD LOSS: 5 ml Norm North MD Critical Care Fellow PGY 6 Cosigned by Ruth Kramer MD at 02/24/2025 9:40 AM EDT Associated attestation - Ruth Kramer MD - 02/24/2025 9:40 AM EDT I was present and supervised the procedure documented in this encounter Consult Notes * Divya Barker MD - 02/24/2025 7:55 AM EDTAssociated Order(s): IP CONSULT TO NEPHROLOGY Images from the original note were not included. Nephrology Consult Note Patient : Lindsay Pinto; 59 y.o. Location: 3225/3225-01 Attending: Ruth Kramer MD Admit Date: 02/18/2025 Hospital Day: 6 Reason for Consult: Acute kidney injury. History of Present Illness: Lindsay Pinto is a 59 y.o. male with past medical history of HTN, ENA, HFrEF, and gastric bypass who presented to an OSH for constipation and bloating. He was found to have new onset a-fib and EF of15-20% dropped from 50-55%. Mr. Pinto was admitted to hospital on 02/18/2025. [facility] and new onset systolic CHF. He has past medical history of hypertension, severe LVH, ENA, obesity s/p gastric bypass. He complained of bloating and constipation for weeks prior to admission. He endorsed associated shortness of breath with exertion and fatigue. He denied chest pain, nausea, vomiting. Chest x-ray revealed cardiomegaly with vascular congestion. CT of the abdomen revealed ascites and anasarca. Labs showed GILLIAN and an elevated BNP over 5000.EKG showed A-fib with RVR, which was new. Xarelto and Two doses of digoxin were administered due to borderline hypotension. Echocardiogram showed new dropped EF of 15 to 20% with moderate pulmonary hypertension, moderate mitral valve regurgitation and a small pericardial effusion. As a result, patient was transferred [facility] for higher level of care. CT abdomen and pelvis on 02/22/2025 showed The right and left rectus abdominal muscles are abnormaland contain hematomas. The left is larger in size. Hemoglobin dropped from 15.4 to 14.0. Later that day, MICU was consulted after a rapid response was called around 7 AM for hypotension with a BP of53/38. On 02/22/2025, patient had another episode of hypotension this morning with a recorded blood pressure of 52/34. He was given albumin and 250 cc lactated ringer and transferred to the MICU for hemodynamic instability. At time of evaluation, hospital day 6, patient was lying in bed with the head of the bed elevated. He was in no acute distress. Discussed renal function with patient. Amiodarone infusion was running. Labs were reviewed. CHEM profile is as follows: Sodium 135, potassium 4.1, chloride 99, bicarb 28,BUN 52, creatinine 2.43. Baseline creatinine is around 1.0. CBC showed the following: WBC 16.83, hemoglobin 9.1, platelets 196. Hemoglobin has remained stable for the past 24 hours. Review of Systems: Review of Systems Constitutional: Positive for fatigue. Negative for chills and fever. HENT: Negative for congestion, rhinorrhea and sore throat. Respiratory: Negative for cough, shortness of breath and wheezing. Cardiovascular: Negative for chest pain, palpitations and leg swelling. Gastrointestinal: Negative for abdominal pain, nausea and vomiting. Genitourinary: Positive for hematuria. Negative for dysuria, frequency and urgency. Musculoskeletal: Negative for arthralgias, joint swelling and myalgias. Skin: Negative for pallor, rash and wound. Neurological: Negative for syncope, weakness and light-headedness. Input/Output: I/O last 3 completed shifts: In: 872.8 (8 mL/kg) [I.V.:872.8 (8 mL/kg)] Out: 2211 (20.3 mL/kg) [Urine:2211 (0.6 mL/kg/hr)] Weight: 108.7 kg Vital Signs: Temperature: Temp: 36.6 ??C (97.9 ??F) TMax: Temp (24hrs), Av.6 ??C (97.8 ??F), Min:36.5 ??C (97.7 ??F), Max:36.6 ??C (97.9 ??F) Respirations: Resp: 20 Pulse: Heart Rate: (!) 145 BP: BP: 98/61 BP Range: Systolic (24hrs), Av , Min:98 , Max:114 Diastolic (24hrs), Av, Min:61, Max:72 Wt Readings from Last 3 Encounters: 02/23/25 109 kg (239 lb 10.2 oz) 06/01/24 112 kg (247 lb) 06/05/23 111 kg (244 lb) Physical Examination: Physical Exam Constitutional: General: He is not in acute distress. Appearance: He is obese. HENT: Head: Normocephalic and atraumatic. Nose: Nose normal. Mouth/Throat: Mouth: Mucous membranes are moist. Eyes: General: No scleral icterus. Conjunctiva/sclera: Conjunctivae normal. Cardiovascular: Rate and Rhythm: Regular rhythm. Tachycardia present. Pulses: Normal pulses. Pulmonary: Effort: Pulmonary effort is normal. No respiratory distress. Breath sounds: Normal breath sounds. Abdominal: General: Bowel sounds are normal. There is no distension. Palpations: Abdomen is soft. Genitourinary: Comments: Three-way Tello catheter in place Musculoskeletal: Right lower leg: Edema present. Left lower leg: Edema present. Skin: General: Skin is warm and dry. Coloration: Skin is not jaundiced. Neurological: Mental Status: He is alert and oriented to person, place, and time. Psychiatric: Mood and Affect: Mood normal. Behavior: Behavior normal. Labs: Chemistry: Lab Results Component Value Date NA 135 (L) 02/24/2025 K 4.1 02/24/2025 CL 99 02/24/2025 CO2 28 02/24/2025 CO2 25 2019 ANIONGAP 12 02/24/2025 BUN 52 (H) 02/24/2025 CREATININE 2.43 (H) 02/24/2025 EGFR 30.1 (L) 02/24/2025 GLU 109 (H) 2019 CALCIUM 8.5 (L) 02/24/2025 MG 2.1 02/24/2025 PHOS 5.4 (H) 02/24/2025 ALBUMIN 3.3 (L) 02/24/2025 PROT 5.2 (L) 02/24/2025 AST 24 02/24/2025 ALT 32 02/24/2025 BILITOT 3.0 (H) 02/24/2025 BILIDIR 1.1 (H) 02/22/2025 ALKPHOS 58 02/24/2025 Hematology & Iron studies: Lab Results Component Value Date WBC 14.22 (H) 02/24/2025 HGB 9.0 (L) 02/24/2025 HCT 26.4 (L) 02/24/2025 MCV 92.3 02/24/2025 PLT 173 02/24/2025 Urine chemistry: Lab Results Component Value Date PROTUR 30 (A) 02/22/2025 Urinalysis & Microscopy: Lab Results Component Value Date COLORU Red (A) 02/22/2025 CLARITYU Turbid (A) 02/22/2025 SPECGRAVU >1.050 (H) 02/22/2025 TAZ 5.5 02/22/2025 PROTUR 30 (A) 02/22/2025 LEUKOCYTESU Trace (A) 02/22/2025 NITRITEU Negative 02/22/2025 GLUCOSEU Normal 02/22/2025 KETONESU Negative 02/22/2025 UROBILINOGEN Normal 02/22/2025 BLOODU Large (A) 02/22/2025 RBCU >20 (A) 02/22/2025 WBCU None Seen 02/22/2025 SQUAMEPIU None Seen 02/22/2025 Urine Eosinophils: No components found for: UEOS Serology & Other labs: BNP: No results found for: BNP JANI: No results found for: JANI SPEP: Lab Results Component Value Date PROT 5.2 (L) 02/24/2025 UPEP: No components found for: LABPE C3: No results found for: C3 C4: No results found for: C4 MPO ANCA: No components found for: MPO PR3 ANCA: No components found for: PR3 Anti-GBM: No components found for: GBMABIGG Hep BsAg: No results found for: HEPBSAG Hep C AB: No results found for: HEPCAB Outpatient Medications & Allergies: Medication Documentation Review Audit Reviewed by Subha Burk RN (Registered Nurse) on 02/18/25 at 1755 Medication Order Taking? Sig Documenting Provider Last Dose Status ferrous sulfate 325 (65 Fe) MG tablet [id number] No Take 65 mg by mouth in the morning and at bedtime. Patient not taking: Reported on 02/18/2025 Historical Provider, More than a month Active furosemide (Lasix) 40 mg tablet [id number] Yes Take 1 tablet (40 mg) by mouth two times daily. Megan Rosenberg MD Past Week Active labetalol (Normodyne) 200 mg tablet [id number] Yes Take 1 tablet (200 mg) by mouth before breakfast, before lunch, and before evening meal. Megan Rosenberg MD Past Week Active lisinopril 10 mg tablet [id number] Yes Take 1 tablet (10 mg) by mouth in the morning. Megan Rosenberg MD Past Week Active Allergies[1] Current Inpatient Medications: Scheduled Meds: [Held by provider] digoxin, 250 mcg, oral, Daily [Held by provider] furosemide, 40 mg, oral, q12h [Held by provider] metoprolol succinate XL, 100 mg, oral, 2 times daily metoprolol tartrate, 5 mg, intravenous, Once sodium chloride irrigation solution, 3,000 mL, irrigation, Continuous [Held by provider] spironolactone, 25 mg, oral, Daily tamsulosin, 0.4 mg, oral, Daily [Held by provider] valsartan, 80 mg, oral, Daily Continuous Infusions: amiodarone, 0.5 mg/min, Last Rate: 0.5 mg/min (02/24/25 0700) norEPINEPHrine, 0.01-2 mcg/kg/min, Last Rate: Stopped (02/23/25 1400) PRN Meds: PRN medications: acetaminophen, diphenhydrAMINE, HYDROcodone-acetaminophen, HYDROmorphone, melatonin, sennosides-docusate sodium, Insert peripheral IV AND Saline lock IV AND sodium chloride Past Medical/Surgical/Social/Family History: Medical History[2] Surgical History[3] Social History Socioeconomic History Marital status: Single Spouse name: Not on file Number of children: Not on file Years of education: Not on file Highest education level: Not on file Occupational History Not on file Tobacco Use Smoking status: Never Smokeless tobacco: Never Substance and Sexual Activity Alcohol use: Yes Comment: occasional Drug use: Not on file Sexual activity: Not on file Other Topics Concern Not on file Social History Narrative Not on file Social Drivers of Health Financial Resource Strain: Low Risk (02/18/2025) Overall Financial Resource Strain (CARDIA) Difficulty of Paying Living Expenses: Not hard at all Food Insecurity: No Food Insecurity (02/18/2025) Hunger Vital Sign Worried About Running Out of Food in the Last Year: Never true Ran Out of Food in the Last Year: Not on file Transportation Needs: No Transportation Needs (02/18/2025) Transportation Lack of Transportation (Medical): No Lack of Transportation (Non-Medical): Not on file Physical Activity: Not on file Stress: Not on file Social Connections: Not on file Intimate Partner Violence: Unknown (02/18/2025) Humiliation, Afraid, Rape, and Kick questionnaire Fear of Current or Ex-Partner: No Emotionally Abused: Not on file Physically Abused: Not on file Sexually Abused: Not on file Housing Stability: Low Risk (02/18/2025) Housing Stability Vital Sign Unable to Pay for Housing in the Last Year: No Number of Times Moved in the Last Year: 1 Homeless in the Last Year: No Family History[4] Radiology: === 02/18/25 === XR CHEST 1 VIEW - Impression - * Left central venous catheter tip projects over the mid SVC. No postprocedural pneumothorax. * Retrocardiac atelectasis and/or pneumonia noted. Electronically signed: Davy Garcia M.D.. === 02/18/25 === CT CHEST W IV CONTRAST - Impression - * Bibasilar consolidation, atelectasis, pleural effusions. * Small to moderate pericardial effusion, consider echocardiography. * Please see above for further details. Electronically signed: Keyur Romero MD. Assessment: Acute kidney injury, likely due to ATN in the setting of hypotensive episodes Hematuria Hematomas in inferior rectus sheath bilaterally Plan: Patient produced 2.1 L of urine in the past 24 hours. No acute need for CVVHD at this time. Obtain urine studies: Urinalysis with microscopy, osmolality sodium, chloride, potassium, protein, Obtain renal ultrasound Urology following for hematuria Avoid hypotensive episodes Monitor I/Os, trend creatinine Monitor electrolytes, replete as needed Avoid nephrotoxic agents Thank you for the consultation. Please do not hesitate to contact us for any questions/concerns. Wewill continue to follow along with you. Divya BARKER MD Nephrology Fellow PGY 4 - [facility] Nephrology Pager: [phone] Phone (7am - 4pm): [phone] [1] No Known Allergies [2] Past Medical History: Diagnosis Date Hypertension Obesity ENA (obstructive sleep apnea) [3] Past Surgical History: Procedure Laterality Date CARDIAC CATHETERIZATION 05/28/2016 GASTRIC BYPASS SHOULDER SURGERY TONSILLECTOMY [4] Family History Problem Relation Name Age of Onset Hypertension Mother Cancer Father Coronary artery disease Father Hypertension Father Cosigned by Matilda Sheppard MD at 02/24/2025 5:07 PM EDT Associated attestation - Matilda Sheppard MD - 02/24/2025 5:07 PM EDT By using the attestations below, the signing clinician agrees that I have read and verify that thedocumentation has been personally reviewed by me and ensure that the documentation accurately reflects the encounter. GC: I personally saw this patient on the day of the encounter, performed the brumfield portion(s) of the service and participated in the management and confirm the resident's documentation. Please note there may be an additional personal documentation from me. * Autumn Linder MD - 02/22/2025 7:06 PM EDTAssociated Order(s): Inpatient consult to Vascular Surgery Images from the original note were not included. [facility] Vascular/Endovascular Surgery Recreation Specialist Complaint Transfer from outside facility due to new onset Afib with RVR and systolic heart failure Inpatient consult to Vascular Surgery Consult performed by: Mahogany Luna MD Consult ordered by: Ruth Kramer MD History and Present Illness Lindsay Pinto is a 59 y.o. White male with a past medical history of hypertension, severe LVH, andOSA. He was transferred from an outside facility due to new onset Afib with RVR and systolic heart failure. The patient was started on Heparin gtt and was found to have developed a rectus sheath hematoma. Patient remains in Afib with RVR, however, his blood pressure has remained stable. CT A/P showed increase in size of bilateral inferior rectus sheath hematoma with left larger than right with a new large hematoma just posterior to the rectus sheath in the extraperitoneal space of the anterior pelvis. Hemoglobin has dropped from 13.5 to 11.4. Abdomen was mildly tender to palpation. Past Medical History Medical History[1] Past Surgical History Surgical History[2] Allergies Allergies[3] Current Medications [Held by provider] digoxin, 250 mcg, oral, Daily [Held by provider] furosemide, 40 mg, oral, q12h [Held by provider] metoprolol succinate XL, 100 mg, oral, 2 times daily metoprolol tartrate, 5 mg, intravenous, Once [Held by provider] spironolactone, 25 mg, oral, Daily [Held by provider] valsartan, 80 mg, oral, Daily Home Medications Prescriptions Prior to Admission[4] Social History Social History Socioeconomic History Marital status: Single Spouse name: Not on file Number of children: Not on file Years of education: Not on file Highest education level: Not on file Occupational History Not on file Tobacco Use Smoking status: Never Smokeless tobacco: Never Substance and Sexual Activity Alcohol use: Yes Comment: occasional Drug use: Not on file Sexual activity: Not on file Other Topics Concern Not on file Social History Narrative Not on file Social Drivers of Health Financial Resource Strain: Low Risk (02/18/2025) Overall Financial Resource Strain (CARDIA) Difficulty of Paying Living Expenses: Not hard at all Food Insecurity: No Food Insecurity (02/18/2025) Hunger Vital Sign Worried About Running Out of Food in the Last Year: Never true Ran Out of Food in the Last Year: Not on file Transportation Needs: No Transportation Needs (02/18/2025) Transportation Lack of Transportation (Medical): No Lack of Transportation (Non-Medical): Not on file Physical Activity: Not on file Stress: Not on file Social Connections: Not on file Intimate Partner Violence: Unknown (02/18/2025) Humiliation, Afraid, Rape, and Kick questionnaire Fear of Current or Ex-Partner: No Emotionally Abused: Not on file Physically Abused: Not on file Sexually Abused: Not on file Housing Stability: Low Risk (02/18/2025) Housing Stability Vital Sign Unable to Pay for Housing in the Last Year: No Number of Times Moved in the Last Year: 1 Homeless in the Last Year: No Primary Care Physician Jalen Linder MD Family Histroy Family History[5] Review Of Systems All 14 points were reviewed and were negative except for what mentioned in the history of presenting illness. Objective Vital signs: Vitals: 02/22/25 1300 02/22/25 1315 02/22/25 1330 02/22/25 1345 BP: (!) 135/121 115/83 113/50 BP Location: Patient Position: Pulse: (!) 158 (!) 161 (!) 163 (!) 133 Resp: 25 (!) 30 20 Temp: TempSrc: SpO2: 97% 100% 98% 100% Weight: Height: Temperature Range Last 24 Hours : Temp: 35.5 ??C (95.9 ??F) Temp Av.1 ??C (96.9 ??F) Min: 35.5??C (95.9 ??F) Max: 36.4 ??C (97.5 ??F) Admit Weight: 118 kg (259 lb 12.8 oz) Body mass index is 35.54 kg/m??. Last Weights: Wt Readings from Last 3 Encounters: 02/22/25 106 kg (233 lb 11 oz) 06/01/24 112 kg (247 lb) 06/05/23 111 kg (244 lb) I/O's: Intake/Output Summary (Last 24 hours) at 02/22/2025 1906 Last data filed at 02/22/2025 1600 Gross per 24 hour Intake 1364.19 ml Output 805 ml Net 559.19 ml Physical Exam Physical Exam Constitutional: Appearance: Normal appearance. HENT: Head: Normocephalic and atraumatic. Cardiovascular: Rate and Rhythm: Normal rate. Pulses: Normal pulses. Pulmonary: Effort: Pulmonary effort is normal. No respiratory distress. Breath sounds: Normal breath sounds. No wheezing. Abdominal: Tenderness: There is abdominal tenderness. Comments: Mild tenderness upon palpation Skin: General: Skin is warm and dry. Neurological: Mental Status: He is alert. Labs/Imaging Results from last 7 days Lab Units 02/22/25 1831 02/22/25 1149 02/22/25 0707 02/22/25 0658 02/22/25 0500 02/21/25 0355 02/19/25 0418 02/18/25 1846 WBC AUTO 10*3/uL 10.74* 11.61* -- 10.73* 12.27* 7.24 < > 7.49 HEMOGLOBIN g/dL 11.4* 13.5 14.5 14.0 15.4 15.4 < > 14.4 HEMATOCRIT % 33.4* 40.1 42.9 42.5 45.0 44.4 < > 41.7 PLATELETS AUTO 10*3/uL 215 257 -- 224 242 177 < > 195 NEUTROS PCT % -- -- -- 81.9* -- -- -- 69.5 MONO PCT % -- -- -- 6.8 -- -- -- 8.5 EOS PCT % -- -- -- 0.0 -- -- -- 1.1 < > = values in this interval not displayed. Results from last 7 days Lab Units 02/22/25 1149 02/21/25 0355 02/20/25 0416 02/19/25 0418 02/18/25 1846 POTASSIUM mmol/L 4.5 4.0 3.8 3.8 4.0 CO2 mmol/L 24 26 25 25 21 BUN mg/dL 27* 16 16 19 21 CREATININE mg/dL 1.43* 0.99 0.99 1.07 1.02 Results from last 7 days Lab Units 02/22/25 1149 02/18/25 1846 INR 1.47* 1.47* Imaging CT abdomen pelvis w IV contrast Narrative: STUDY: ABDOMEN AND PELVIS CT WITH CONTRAST HISTORY: Guarding, diaphoresis, abdominal pain, sepsis evaluation COMPARISON: 02/21/2025 TECHNIQUE: Routine CT abdomen and pelvis was performed with contrast. All CT scans at this facility use dose modulation, iterative reconstruction, and/or weight based dosing when appropriate to reduce radiation dose to as low as reasonably achievable. FINDINGS: Please refer to separate report for chest findings. Cholelithiasis with distention of the gallbladder. The liver, spleen, adrenal glands, pancreas are unremarkable. Mild bilateral renal pelviectasis and mild diffuse ureteral prominence. There is a Tello catheter within a likely decompressed bladder. Redemonstration of bilateral inferior rectus sheath hematomas, each of which have enlarged since previous study (left larger than right. Right-sided hematoma measures approximately 5.8 x 2.7 cm and left-sided hematoma measures approximately 5.9 x 7.7 cm. There is layering high attenuation material within the left rectus sheath hematoma suggestive of active bleeding. This hematoma appears to connect with a much larger hematoma just posterior to the rectus muscles that was not present previously measuring approximately 15.1 x 7.9 cm. This also contains layering higher attenuation material. Postsurgical changes from previous gastric surgery and multiple partial bowel resections. There is mild diffuse prominence of small and large bowel, most likely ileus. Edema and/or hemorrhage in the pelvic sidewall and presacral space. Impression: * Increase in size of bilateral inferior rectus sheath hematomas (left larger than right) with new large hematoma just posterior to the rectus sheath in the extraperitoneal space of the anterior pelvis. Evidence of active bleeding both within the left rectus sheath hematoma and into the larger hematoma posteriorly. This finding was discussed with MICU resident taking care of this patient on 02/22/2025 at 1:14 PM Electronically signed: Daniel Diaz MD. CT chest w IV contrast Narrative: CT CHEST W IV CONTRAST CLINICAL INFORMATION: Sepsis. COMPARISON: None. PROCEDURE: Routine CT chest obtained after the uncomplicated intravenous administration of contrast material. Multiplanar reformats were obtained from the axial data. All CT scans at this facility use dose modulation, iterative reconstruction, and/or weight based dosing when appropriate to reduce radiation dose to as low as reasonably achievable. FINDINGS: Basilar consolidation and scarring present. Bilateral pleural effusions. There is a [id number] pericardial effusion. Aorta is unremarkable. Mild to moderate coronary artery calcifications. Pulmonary arteries are of normal caliber. Postoperative changes GE junction with hiatal hernia. No lymphadenopathy. Degenerative changes. Impression: * Bibasilar consolidation, atelectasis, pleural effusions. * Small to moderate pericardial effusion, consider echocardiography. * Please see above for further details. Electronically signed: Keyur Romero MD. ECG 12 lead Atrial fibrillation with rapid ventricular response Left bundle branch block Abnormal ECG Confirmed by Rosalia MOULTON, HUGO Cabrera ([id number]) on 02/22/2025 9:36:51 AM Assessment/Plan Lindsay Pinto is a 59 y.o. White male admitted for new onset Afib with RVR and systolic heart failure. Patient was started on Heparin gtt and developed a rectus sheath hematoma. Vascular surgery does not recommend surgical intervention at this time Recommend continuing to monitoring H&H Remainder of care per primary team Mahogany Luna MD General Surgery, PGY-1 Vascular Surgery Service Patient seen and evaluated with the residents Discussed with the ICU team Abdomen is soft , not tender at the time I saw him Hgb is slightly lower than baseline Rectus sheath hematoma Pelvis hematoma The small and intestine dilated Bladder has a F C Plan: observation and watch hgb, Hgb on 02/18 was 14.4 and today 11.4, the CT scan cannot reflect the hgb changes Will repeat CBC in morning Autumn Linder MD, PILLO, M Med Ed, CPE, FRCS, FACS, DFSVS, FACCW, FAPWCA, RVT, RPVI Professor, Division of Vascular, Endovascular and Wound Surgery Department of Surgery Department of Medical Education [employer] [facility] [employer] [facility] [phone] [email or web address] If continues to drop will consider angiogram For non-urgent questions, [employer] Chat may be used 0600 - 1800, M-F. For urgent concerns, please call [phone], or ask the form press operator to connect you to the on-call center analyst. For after-hours concerns, please page [phone], or ask the form press operator to connect you to the on-call center analyst. [1] Past Medical History: Diagnosis Date Hypertension Obesity ENA (obstructive sleep apnea) [2] Past Surgical History: Procedure Laterality Date CARDIAC CATHETERIZATION 05/28/2016 GASTRIC BYPASS SHOULDER SURGERY TONSILLECTOMY [3] No Known Allergies [4] Medications Prior to Admission Medication Sig Dispense Refill Last Dose/Taking furosemide (Lasix) 40 mg tablet Take 1 tablet (40 mg) by mouth two times daily. 180 tablet 3 Past Week labetalol (Normodyne) 200 mg tablet Take 1 tablet (200 mg) by mouth before breakfast, before lunch,and before evening meal. 270 tablet 3 Past Week lisinopril 10 mg tablet Take 1 tablet (10 mg) by mouth in the morning. 90 tablet 3 Past Week ferrous sulfate 325 (65 Fe) MG tablet Take 65 mg by mouth in the morning and at bedtime. (Patient not taking: Reported on 02/18/2025) More than a month [5] Family History Problem Relation Name Age of Onset Hypertension Mother Cancer Father Coronary artery disease Father Hypertension Father * Josr Sullivan MD - 02/22/2025 2:07 PM EDTAssociated Order(s): IP CONSULT TO UROLOGY Images from the original note were not included. [facility] Department of Urology CONSULTATION Reason for Consult: Hematuria History of Present Illness: Lindsay Pinto is a 59 y.o. male with a past medical history of hypertension, left ventricular hypertrophy, ENA, obesity status post gastric bypass who presented to [facility] with bloating and constipation. He was transferred to [facility] on 02/18/2025 due to new onset A-fib and admitted for acute systolic CHF. 02/21/2025 CT abd pelvis shows evidence of bilateral rectus sheath hematomas. Patientunderwent tello placement today with subsequent hematuria for which urology was consulted. Patient was seen and examined at bedside. He denies any issues with urination at baseline and has not required needing to be seen by urologist in the past. He has a Tello catheter in place that is draining light pink urine output with no evidence of clot in the Tello bag. Patient denies any sensation of pelvic fullness, pelvic pain, or discomfort from the Tello catheter. Review of Systems Constitutional: Negative for chills and fever. Respiratory: Negative for cough and shortness of breath. Cardiovascular: Negative for chest pain. Gastrointestinal: Negative for nausea and vomiting. Genitourinary: Positive for hematuria. Negative for difficulty urinating, dysuria, flank pain and urgency. Neurological: Negative for light-headedness and headaches. Psychiatric/Behavioral: Negative for behavioral problems and confusion. All other systems reviewed and are negative. Medical History[1] Surgical History[2] Allergies[3] Current Medications[4] Social History Socioeconomic History Marital status: Single Spouse name: Not on file Number of children: Not on file Years of education: Not on file Highest education level: Not on file Occupational History Not on file Tobacco Use Smoking status: Never Smokeless tobacco: Never Substance and Sexual Activity Alcohol use: Yes Comment: occasional Drug use: Not on file Sexual activity: Not on file Other Topics Concern Not on file Social History Narrative Not on file Social Drivers of Health Financial Resource Strain: Low Risk (02/18/2025) Overall Financial Resource Strain (CARDIA) Difficulty of Paying Living Expenses: Not hard at all Food Insecurity: No Food Insecurity (02/18/2025) Hunger Vital Sign Worried About Running Out of Food in the Last Year: Never true Ran Out of Food in the Last Year: Not on file Transportation Needs: No Transportation Needs (02/18/2025) Transportation Lack of Transportation (Medical): No Lack of Transportation (Non-Medical): Not on file Physical Activity: Not on file Stress: Not on file Social Connections: Not on file Intimate Partner Violence: Unknown (02/18/2025) Humiliation, Afraid, Rape, and Kick questionnaire Fear of Current or Ex-Partner: No Emotionally Abused: Not on file Physically Abused: Not on file Sexually Abused: Not on file Housing Stability: Low Risk (02/18/2025) Housing Stability Vital Sign Unable to Pay for Housing in the Last Year: No Number of Times Moved in the Last Year: 1 Homeless in the Last Year: No Family History[5] Physical Exam Vitals reviewed. Constitutional: General: He is not in acute distress. Appearance: He is obese. HENT: Head: Normocephalic and atraumatic. Eyes: General: No scleral icterus. Conjunctiva/sclera: Conjunctivae normal. Cardiovascular: Rate and Rhythm: Tachycardia present. Pulmonary: Effort: Pulmonary effort is normal. Genitourinary: Comments: Tello catheter in place, secured, draining light pink UOP without clot Musculoskeletal: Cervical back: Normal range of motion. Right lower leg: Edema present. Left lower leg: Edema present. Skin: General: Skin is warm and dry. Neurological: Mental Status: He is alert. Psychiatric: Mood and Affect: Mood normal. Behavior: Behavior normal. Vital Signs: Blood pressure 113/50, pulse (!) 133, temperature 35.5 ??C (95.9 ??F), temperature source Temporal, resp. rate 20, height 1.727 m (5' 7.99 ), weight 106 kg (233 lb 11 oz), SpO2 100%. Admission Weight: Weight: 118 kg (259 lb 12.8 oz) Labs: Lab Results Component Value Date WBC 11.61 (H) 02/22/2025 HGB 13.5 02/22/2025 HCT 40.1 02/22/2025 MCV 91.8 02/22/2025 PLT 257 02/22/2025 Lab Results Component Value Date GLU 109 (H) 2019 CALCIUM 9.4 02/22/2025 NA 139 02/22/2025 K 4.5 02/22/2025 CO2 24 02/22/2025 CL 104 02/22/2025 BUN 27 (H) 02/22/2025 CREATININE 1.43 (H) 02/22/2025 No results found for: AMYLASE No results found for: LIPASE Lab Results Component Value Date ALT 28 02/22/2025 AST 22 02/22/2025 ALKPHOS 70 02/22/2025 Lab Results Component Value Date INR 1.47 (H) 02/18/2025 INR 1.33 (H) 07/31/2019 Imaging: CT abdomen pelvis w IV contrast Narrative: STUDY: ABDOMEN AND PELVIS CT WITH CONTRAST HISTORY: Guarding, diaphoresis, abdominal pain, sepsis evaluation COMPARISON: 02/21/2025 TECHNIQUE: Routine CT abdomen and pelvis was performed with contrast. All CT scans at this facility use dose modulation, iterative reconstruction, and/or weight based dosing when appropriate to reduce radiation dose to as low as reasonably achievable. FINDINGS: Please refer to separate report for chest findings. Cholelithiasis with distention of the gallbladder. The liver, spleen, adrenal glands, pancreas are unremarkable. Mild bilateral renal pelviectasis and mild diffuse ureteral prominence. There is a Tello catheter within a likely decompressed bladder. Redemonstration of bilateral inferior rectus sheath hematomas, each of which have enlarged since previous study (left larger than right. Right-sided hematoma measures approximately 5.8 x 2.7 cm and left-sided hematoma measures approximately 5.9 x 7.7 cm. There is layering high attenuation material within the left rectus sheath hematoma suggestive of active bleeding. This hematoma appears to connect with a much larger hematoma just posterior to the rectus muscles that was not present previously measuring approximately 15.1 x 7.9 cm. This also contains layering higher attenuation material. Postsurgical changes from previous gastric surgery and multiple partial bowel resections. There is mild diffuse prominence of small and large bowel, most likely ileus. Edema and/or hemorrhage in the pelvic sidewall and presacral space. Impression: * Increase in size of bilateral inferior rectus sheath hematomas (left larger than right) with new large hematoma just posterior to the rectus sheath in the extraperitoneal space of the anterior pelvis. Evidence of active bleeding both within the left rectus sheath hematoma and into the larger hematoma posteriorly. This finding was discussed with MICU resident taking care of this patient on 02/22/2025 at 1:14 PM Electronically signed: Daniel Diaz MD. CT chest w IV contrast Narrative: CT CHEST W IV CONTRAST CLINICAL INFORMATION: Sepsis. COMPARISON: None. PROCEDURE: Routine CT chest obtained after the uncomplicated intravenous administration of contrast material. Multiplanar reformats were obtained from the axial data. All CT scans at this facility use dose modulation, iterative reconstruction, and/or weight based dosing when appropriate to reduce radiation dose to as low as reasonably achievable. FINDINGS: Basilar consolidation and scarring present. Bilateral pleural effusions. There is a [id number] pericardial effusion. Aorta is unremarkable. Mild to moderate coronary artery calcifications. Pulmonary arteries are of normal caliber. Postoperative changes GE junction with hiatal hernia. No lymphadenopathy. Degenerative changes. Impression: * Bibasilar consolidation, atelectasis, pleural effusions. * Small to moderate pericardial effusion, consider echocardiography. * Please see above for further details. Electronically signed: Keyur Romero MD. ECG 12 lead Atrial fibrillation with rapid ventricular response Left bundle branch block Abnormal ECG Confirmed by Rosalia MOULTON, HUGO Cabrera ([id number]) on 02/22/2025 9:36:51 AM Assessment: Lindsay Pinto is a 59 y.o.male with an unremarkable urologic history who was transferred from [facility] for new onset A-fib with RVR and admitted for congestive heart failure. Urology was consulted for hematuria after placement of the Tello catheter. CT imaging on 02/22/2025 shows evidence of bilateral rectus sheath hematomas. Additionally, there is evidence of mild hydronephrosis that was not present on CT imaging of abdomen pelvis on 02/21/2025 and a mild bump in creatinine at 1.43, upfrom baseline of 0.99 yesterday. There is a Tello catheter in place on CT, however it is difficult to discern from imaging whether or not it is appropriately positioned due to the size of the hematoma. Tello catheter was hand irrigated at bedside with no obstruction present, the balloon deflated and Tello repositioned to rule out inappropriate positioning of the Tello catheter. Elevated creatinine could be multifactorial in the setting of contrast imaging, hypotension, and possibly compression of the lower urinary tract by the hematoma seen on imaging, as evident by mild bilateral hydroureter. Active Problem List Gross hematuria Clear, light pink urine output. No evidence of clot Hematuria likely caused by tello trauma Mild bilateral hydronephrosis Cr 1.43 (0.99) Urine output: 325 mL Plan: No acute urology intervention indicated at this time Gross hematuria Maintain Tello catheter Monitor H&H Hand irrigate Tello catheter to remove any clots as needed; please inform urology if any clots are seen Mild bilateral hydronephrosis Monitor Cr and I/O Will consider renal ultrasound pending trend of Cr and I/O Kade Koromaland Medical Student, MS-4 2:07 PM 02/22/25 I examined the patient independently. I reviewed the medical student's note and made edits as needed. Lo Vasquez MD Urology Resident Physician, PGY-2 02/22/25 I did not personally see the patient on the day of service. I discussed the evaluation and management of the patient with the resident and agree with the resident's findings, assessment, and plan as documented above. Josr Sullivan MD [1] Past Medical History: Diagnosis Date Hypertension Obesity ENA (obstructive sleep apnea) [2] Past Surgical History: Procedure Laterality Date CARDIAC CATHETERIZATION 05/28/2016 GASTRIC BYPASS SHOULDER SURGERY TONSILLECTOMY [3] No Known Allergies [4] Current Facility-Administered Medications: acetaminophen (Tylenol) tablet 650 mg, 650 mg, oral, q6h PRN, Carol Carter, VACATION PL[employer]NER, 650 mg at 244 [COMPLETED] amiodarone in dextrose,iso-osm (Nexterone) IVPB 150 mg, 150 mg, intravenous, Once, Stopped at 02/22/25 1345 FOLLOWED BY amiodarone (Nexterone) infusion, 1 mg/min, intravenous, Continuous, Last Rate: 33.3 mL/hr at 02/22/25 1346, 1 mg/min at 02/22/25 1346 FOLLOWED BY amiodarone (Ne xterone) infusion, 0.5 mg/min, intravenous, Continuous, Norm North MD [Held by provider] digoxin (Lanoxin) tablet 250 mcg, 250 mcg, oral, Daily, Susan Mcpherson MD, 250 mcgat 02/21/25 0844 [Held by provider] furosemide (Lasix) tablet 40 mg, 40 mg, oral, q12h, Gabriele Yoder MD, 40 mg at 02/21/25 2255 HYDROcodone-acetaminophen (Montrose) 5-325 mg per tablet 1 tablet, 1 tablet, oral, q6h PRN, Suleiman Corcoran MD, 1 tablet at 02/21/25 2240 HYDROmorphone (Dilaudid) injection 0.2 mg, 0.2 mg, intravenous, q4h PRN, Norm North MD, 0.2 mg at 02/22/25 1236 melatonin tablet 5 mg, 5 mg, oral, Nightly PRN, Carol Carter CNP [Held by provider] metoprolol succinate XL (Toprol-XL) 24 hr tablet 100 mg, 100 mg, oral, 2 times daily, Gabriele Yoder MD, 100 mg at 02/21/25 1630 metoprolol tartrate (Lopressor) injection 5 mg, 5 mg, intravenous, Once, Gabriele Yoder MD Insert peripheral IV, , , Once AND Saline lock IV, , , Once AND sodium chloride flush 10 mL, 10 mL, intravenous, q8h PRN, Carol Carter CNP [Held by provider] spironolactone (Aldactone) tablet 25 mg, 25 mg, oral, Daily, Susan Mcpherson MD, 25mg at 02/21/25 0843 [Held by provider] valsartan (Diovan) tablet 80 mg, 80 mg, oral, Daily, Gabriele Yoder MD, 80 mg at 02/21/25 0844 [5] Family History Problem Relation Name Age of Onset Hypertension Mother Cancer Father Coronary artery disease Father Hypertension Father * Kaye Pryor RD - 02/19/2025 12:14 PM EDTAssociated Order(s): IP CONSULT TO NUTRITION SERVICES Adult Nutrition Assessment: Name: Lindsay Pinto Date: 1965 Date of Visit: 02/19/25 Admission Dx: Acute systolic CHF (congestive heart failure) ([facility]) [I50.21] Reason for assessment: MD referral Information obtained from: patient and medical record Medical History[1] Current Medications: furosemide, 40 mg, intravenous, BID AC lisinopril, 10 mg, oral, Daily metoprolol succinate XL, 100 mg, oral, Daily heparin, 0-28 Units/kg/hr, Last Rate: 15 Units/kg/hr (02/19/25 0934) Labs: 0 Lab Value Date/Time BUN 19 02/19/2025 0418 CREATININE 1.07 02/19/2025 0418 NA 141 02/19/2025 0418 K 3.8 02/19/2025 0418 PHOS 2.7 02/18/2025 1846 MG 1.9 02/19/2025 0418 HGB 13.9 02/19/2025 0418 WBC 5.92 02/19/2025 0418 Allergies: Allergies[2] Nutrition Problems: Swallowing Assessment: pt denies swallowing difficulty Mouth: pt denies chewing difficulty Abdominal Assessment: Pt denied any NVCD I/O: Net fluid: -3.8 L Appetite: poor Cognition: neuro WDL Nutrition Deficits Prior to Admission: protein and calories for about 3 weeks Feeding Skills: good access to food 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 Skin Integrity: documented to be WDL Edema: BLE +1 Other Factors: EF 15-20% History of gastric bypass in 2019 per pt Nutrition Data/Clinical Indicators of Nutrition Status: Height: 172.7 cm (5' 7.99 ) Weight: 116 kg (255 lb) BMI (Calculated): 38.78 Wt Readings from Last 10 Encounters: 02/19/25 116 kg (255 lb) 06/01/24 112 kg (247 lb) 06/05/23 111 kg (244 lb) 05/04/22 102 kg (224 lb) 04/10/21 101 kg (223 lb) 04/18/20 103 kg (226 lb) 04/28/19 (!) 154 kg (338 lb 15.9 oz) 09/10/18 (!) 164 kg (360 lb 15.9 oz) IBW: 70 kg Weight change: Limited recent weight history, weight history shows weight has been fairly stable. Pt reported that he has gained water weight. Nutrition Assessment: Pt reported that his appetite has been decreased for the past 3 weeks as he has been constipated. Pt reported that during this time has been eating a lot less than normal and has been eating things like soup and half a sandwich. Pt reported that at baseline he does not eat a lot as he has had gastric bypass surgery. Pt reported that typically he will have toast and protein shake for breakfast. Snack of yogurt. Lunch egg salad and cheese. Snack of sunflower seeds. Dinner will depend. Pt reportedthat he likes fruits and tries to focus on protein at his meals. Pt denied wanting snacks while here but is agreeable to boost. Pt reported that he does not add a lot of salt to his foods. Dietary Orders (From admission, onward) Start Ordered 02/19/25 1215 Dietary nutrition supplements Breakfast; Boost Glucose Control; Chocolate; 8 oz; OralUntil discontinued Question Answer Comment Deliver with Breakfast Select supplement: Boost Glucose Control Flavor: Chocolate Strength: 8 oz Route Oral 02/19/25 1214 02/19/25 0001 Diet NPO Diet effective midnight Comments: Sips with medications Question: Reason for NPO: Answer: Operation/Procedure 02/18/25 3257 Nutrition Risk: Moderate Nutrition Needs: Needs based on: ideal body weight (70 kg) Calorie needs: 8701-1763 kcals/day based on 25-30 kcal/kg Protein needs: 70-84 g/day based on 1.0-1.2 g/kg Fluid needs: 1750 ml/day based on 25 ml/kg Nutrition Diagnosis: Inadequate oral intake related to constipation as evidenced by pt report and diet recall Malnutrition Assessment: Per Registered Dietitian assessment and evaluation, patient does not currently meet criteria OR there is not enough information to support the diagnosis of malnutrition per the clinical criteria set by the Academy of Nutrition and Dietetics (AND) and the [place] Society of Enteral and Parenteral Nutrition (ASPEN). Nutrition Education: Diet literature: Heart Failure Nutrition Therapy (explained CHF-diet relationship, discussed and reviewed reading nutrition labels, recommended daily sodium intake of no more than 2,000 mg/d (or 1~ tsp salt/d), reviewed and encouraged flavoring alternatives to salt, recommended adequate intake of fr uits/vegetables at each meal and for snacks, encouraged choosing lean proteins, encouraged preparing more meals at home, recommended decreasing frequency of eating out/take-out foods, and encouraged avoiding or limiting salty snacks/processed foods/frozen foods ) Expected compliance/patient understanding: good Teach back method: pt verbalized understanding Time spent: 15 minutes Treatment Plan: Recommend regular heart healthy diet as medically feasible Monitor intakes Boost glucose control daily Monitor acceptance Continue to review diet education Daily weights Monitor for unintentional weight changes Monitor and correct electrolytes as needed Goals: Adequate po intakes (kcals and protein); >75% meals Adherence/tolerance to ONS; >75% supplements Understanding of nutrition education/adherence to diet recommendations No significant unintentional wt loss Nutrition-related labs (magnesium, phosphorus, BMP) wnl To reach the Clinical Dietitian, please utilize [employer] chat Saturday-Saturday from 8AM-4PM or call extension [phone]. For weekends (Saturday-Saturday) and hols, the Clinical Dietitian can be reached via pager ([phone]) from 9AM-3PM. The Clinical Nutrition Department is unable to respond to [employer] messages on Sundays and s. [1] Past Medical History: Diagnosis Date Hypertension Obesity ENA (obstructive sleep apnea) [2] No Known Allergies * Julio Barnard MD - 02/19/2025 7:42 AM EDT Images from the original note were not included. . Cardiology Consult Note Reason for Consult: New A fib and heart failure exacerbation HPI: Lindsay Pinto is a 59 y.o. male with a PMHx of hypertension, severe LVH, ENA, obesity s/p gastric bypass presents as a direct mission for [facility] with progressively worsening dyspnea, abdominal swelling and anasarca in the setting of new onset A-fib as well as new onset systolic CHF. He had a CXR completed showing cardiomegaly with vascular congestion. CT of the abdomen was completed showing ascites and anasarca. Labs show a mild GILLIAN and an elevated BNP over 5000. EKG was completed showing A-fib with RVR which is new for the patient. He was given 2 doses of digoxin due to borderline hypotension and given a dose of Xarelto. Echocardiogram was completed showing a newly dropped EF of 15 to 20% with moderate pulmonary hypertension, moderate mitral valve regurgitation and a small pericardial effusion. He was transferred [facility] for higher level of care. At [facility], he was started on Lasix 40 mg IV BID and he has made nearly net negative 3L of urine. Vitally, he is afebrile, tachycardic in the 100s, BP 100/63, satting well on RA. Cardiac history: Severe LVH per 2019 Echo that showed LV dysfunction, EF 40% and Echo 05/14/23 showed improvement in EF 50-55%, aortic dilation, mitral valve regurg Cardiac workup: ECHO 05/14/2023: Global LV systolic function is low normal limits; visually estimated EF 50-55%. RVis normal in size and function. Normal diastolic function. Biatrial enlargement. Mild mitral regurg. Aortic root is mildly dilated. Trivial pericardial effusion is seen Cardiac medications: Cardiology ROS: Review of Systems Constitutional: Positive for fatigue. Respiratory: Positive for shortness of breath. Cardiovascular: Negative for chest pain. Gastrointestinal: Negative for abdominal pain, nausea and vomiting. Past Medical History He has a past medical history of Hypertension, Obesity, and ENA (obstructive sleep apnea). Surgical History He has a past surgical history that includes Cardiac catheterization (05/28/2016); Tonsillectomy; Gastric bypass; and Shoulder surgery. Social History He reports that he has never smoked. He has never used smokeless tobacco. He reports current alcohol use. No history on file for drug use. Family History Family History[1] Allergies Patient has no known allergies. Medications Current Outpatient Medications Medication Instructions ferrous sulfate 65 mg, 2 times daily furosemide (LASIX) 40 mg, oral, 2 times daily labetalol (NORMODYNE) 200 mg, oral, 3 times daily before meals lisinopril 10 mg, oral, Daily Prescriptions Prior to Admission[2] Last Recorded Vitals Patient Vitals for the past 24 hrs: BP Temp Temp src Pulse Resp SpO2 Height Weight 02/19/25 0427 -- -- -- -- -- -- -- 116 kg (255 lb) 02/19/25 0401 100/63 -- -- (!) 112 15 100 % -- -- 02/19/25 0214 -- -- -- 110 17 98 % -- -- 02/19/25210 -- -- -- (!) 127 -- 100 % -- -- 02/19/25209 -- -- -- 103 -- 99 % -- -- 02/19/25 0006 -- -- -- (!) 136 -- -- -- -- 02/19/25 0001 (!) 148/103 -- -- 98 14 96 % -- -- 02/18/252311 -- -- -- (!) 111 12 99 % -- -- 02/18/252310 -- -- -- (!) 114 18 98 % -- -- 02/18/252252 -- -- -- (!) 146 -- -- -- -- 02/18/252213 -- -- -- (!) 133 -- 95 % -- -- 02/18/252211 -- -- -- (!) 117 -- 96 % -- -- 02/18/252209 -- -- -- (!) 119 -- -- -- -- 02/18/252207 97/77 -- -- (!) 121 -- 96 % -- -- 02/18/252200 -- -- -- (!) 137 -- 97 % -- -- 02/18/252199 -- -- -- 109 -- 97 % -- -- 02/18/252157 -- -- -- (!) 122 16 98 % -- -- 02/18/252134 -- -- -- (!) 123 -- 97 % -- -- 02/18/252124 102/83 -- -- (!) 129 12 96 % -- -- 02/18/252004 -- 36.7 ??C (98.1 ??F) Temporal (!) 112 20 98 % -- -- 02/18/251999 (!) 112/96 -- -- (!) 137 20 96 % -- -- 02/18/251836 -- -- -- (!) 113 17 -- 1.727 m (5' 7.99 ) 118 kg (259 lb 12.8 oz) 02/18/25 1756 -- -- -- (!) 128 21 99 % -- -- 02/18/25 1753 (!) 117/94 -- -- (!) 144 (!) 28 -- -- -- Physical Examination: Physical Exam Cardiovascular: Rate and Rhythm: Tachycardia present. Rhythm irregular. Heart sounds: Murmur heard. Comments: Elevated JVP noted Pulmonary: Effort: Pulmonary effort is normal. Breath sounds: Rales present. Abdominal: General: Bowel sounds are normal. There is no distension. Palpations: Abdomen is soft. Tenderness: There is no abdominal tenderness. Musculoskeletal: Right lower leg: Edema present. Left lower leg: Edema present. Neurological: Mental Status: He is alert. Relevant Lab Results Encounter Date: 02/18/25 ECG 12 lead Result Value Ventricular Rate 133 QRS DURATION 170 QT Interval 314 QTC CALCULATION(BAZETT) 467 R-Moselle -47 T Wave Moselle 150 Impression Atrial fibrillation with rapid ventricular response Left axis deviation Left bundle branch block Abnormal ECG No previous ECGs available No results found for: CKTOTAL , CKMB , CKMBINDEX , TROPONINI No echocardiogram results found for the past 12 months No nuclear medicine results found for the past 12 months Relevant Imaging Results ECG 12 lead Atrial fibrillation with rapid ventricular response Left axis deviation Left bundle branch block Abnormal ECG No previous ECGs available ASSESSMENT Acute systolic heart failure New onset A fib (CHADSVASC score 2) Small pericardial effusion on Echo Primary hypertension ENA S/p gastric bypass PLAN Continue Lasix 40 mg IV BID. Daily Is and Os. Standing weights. Optimize GDMT: Toprol XL 100 mg daily, Aldactone 25 mg daily, lisinopril 10 mg daily. Once euvolemic, will consider a BERNARDINO cardioversion. Remainder of care as per primary team and other consultative services Cardiology team will continue to follow This note was, at least in part, completed using a voice bottle inspector system. Every effort was made to ensure accuracy. However, inadvertent computerized bottle inspector errors may be present. Julio Barnard MD PGY-2 Internal Medicine Cardiology Consult Service [facility] [1] Family History Problem Relation Name Age of Onset Hypertension Mother Cancer Father Coronary artery disease Father Hypertension Father [2] Medications Prior to Admission Medication Sig Dispense Refill Last Dose/Taking furosemide (Lasix) 40 mg tablet Take 1 tablet (40 mg) by mouth two times daily. 180 tablet 3 Past Week labetalol (Normodyne) 200 mg tablet Take 1 tablet (200 mg) by mouth before breakfast, before lunch,and before evening meal. 270 tablet 3 Past Week lisinopril 10 mg tablet Take 1 tablet (10 mg) by mouth in the morning. 90 tablet 3 Past Week ferrous sulfate 325 (65 Fe) MG tablet Take 65 mg by mouth in the morning and at bedtime. (Patient not taking: Reported on 02/18/2025) More than a month Cosigned by Dylan Matthew MD at 02/19/2025 6:38 PM EDT Associated attestation - Dylan Matthew MD - 02/19/2025 6:38 PM EDT Mr. Pinto was seen and examined by me today with Dr. Barnard. See note below for details. He presents with decompensated acute systolic heart failure, rapid atrial fibrillation and a very wide QRS complex in LBBB pattern. Importantly, he states he had prior LV dysfunction that got better. He has recurrence of severe LV dysfunction with a history of non-ischemic cardiomyopathy that had recovered. This could be rate related, progression of disease, development of new CAD, or severity ofLBBB Currently plan medical therapy to control rate and CHF. May need AF ablation or biV ICD or ischemicworkup as care evolves. Given severity of LV dysfunction, he is at significant risk of or CHF exacerbation. documented in this encounter Nursing Notes * Bg Hameed RN - 03/04/2025 3:11 PM EDT Noted sinus rhythem * Ayde Hamm RN - 03/03/2025 4:40 PM EDT Heart Failure education book was reviewed in detail with patient. Topics covered included pathophysiology of heart failure, importance of medication adherence, monitoring fluid status through daily weights, and maintaining a low-sodium diet. Education also emphasized recognition of early warning signs of decompensation (weight gain, increased shortness of breath, swelling, fatigue) and when to contact healthcare providers or seek emergency care. Discussion included fluid restriction guidelines,importance of regular follow-up appointments, and lifestyle modifications such as smoking cessation, limiting alcohol, and engaging in safe physical activity as tolerated. * Ayde Hamm RN - 03/03/2025 3:50 PM EDT Patient previously on CBI in MICU. On 03/01, Tello catheter was removed for voiding trial. Urology was consulted for high post-void residuals (345 mL, 400 mL, 548 mL) and advised monitoring for an additional day. On 03/02 at 1600, Tello was reinserted due to continued high residuals (504 mL, 434 mL, 401 mL). Upon insertion, only 100 mL urine was drained. Tello was flushed with NS; no blood or clots noted, tubing and bag patent. RN expressed concern that bladder scanner may be detecting bilateral inferior rectus sheath hematomas rather than true urinary retention. Primary team requested urology evaluation for catheter patency and retention status. On 03/03, RN bladder scan showed 394 mL. Urology as sessed patient at bedside, confirmed catheter patency, and recommended keeping Tello catheter in place upon discharge with outpatient follow-up. * Judy Vazquez RN - 03/03/2025 10:13 AM EDT Report given to BARRON Messer from BARRON Kim RN notified RN of pts procedural intervention site, allergies, IV location/status, and medications given during the procedure. Any diagnostics, abnormal labs, abnormal assessment findings, orders and safety concerns/issues were reviewed. RN encouraged RN receiving handoff to voice any questions or concerns, and answered any questions or concerns if verbalized. RN verbalizes the pt will be coming up to the floor soon. * Paul Luna RN - 03/01/2025 2:28 AM EDT Patient Name: Lindsay Pinto : 1965 Primary Care Physician: Jalen Linder MD Admission Date: 02/18/2025 RAPID RESPONSE TEAM ICU TRANSFER FOLLOW-UP NOTE SUBJECTIVE / OBJECTIVE: Follow-up for previous transfer out of the ICU notification for 02/27 at 1412. ASSESSMENT / INTERVENTIONS: Recent Vital Signs: Vitals: 02/28/25 1605 02/28/25 1945 02/28/25 2300 03/01/25 0117 BP: 96/71 102/78 109/66 BP Location: Left arm Left arm Patient Position: Lying Lying Pulse: 100 (!) 121 89 Resp: 16 18 Temp: 36.4 ??C (97.5 ??F) 36.5 ??C (97.7 ??F) 36.5 ??C (97.7 ??F) TempSrc: Temporal Temporal Temporal SpO2: 98% 99% 97% Weight: 112 kg (246 lb 3.2 oz) Height: Latest Labs: Lab Results Component Value Date WBC 8.84 02/28/2025 WBC 9.07 02/27/2025 HGB 8.3 (L) 02/28/2025 HGB 8.9 (L) 02/27/2025 HCT 24.3 (L) 02/28/2025 HCT 25.1 (L) 02/27/2025 MCV 90.0 02/28/2025 MCV 88.4 02/27/2025 PLT 255 02/28/2025 PLT 261 02/27/2025 NEUTROABS 8.79 (H) 02/22/2025 NEUTROABS 5.21 02/18/2025 Lab Results Component Value Date GLUCOSE 98 02/28/2025 GLUCOSE 100 02/27/2025 CALCIUM 7.9 (L) 02/28/2025 CALCIUM 7.8 (L) 02/27/2025 NA 131 (L) 02/28/2025 NA 131 (L) 02/27/2025 K 4.0 02/28/2025 K 4.1 02/27/2025 CO2 23 02/28/2025 CO2 25 02/27/2025 CL 102 02/28/2025 CL 102 02/27/2025 BUN 16 02/28/2025 BUN 17 02/27/2025 CREATININE 0.75 02/28/2025 CREATININE 0.64 (L) 02/27/2025 EGFR 104.6 02/28/2025 EGFR 109.7 02/27/2025 BCR 21.3 02/28/2025 BCR 26.6 02/27/2025 Lab Results Component Value Date MG 2.0 02/28/2025 MG 2.1 02/27/2025 Lab Results Component Value Date PHOS 2.0 (L) 02/28/2025 PHOS 2.0 (L) 02/27/2025 Lab Results Component Value Date ALT 20 02/28/2025 ALT 21 02/27/2025 AST 14 02/28/2025 AST 16 02/27/2025 ALKPHOS 60 02/28/2025 ALKPHOS 54 02/27/2025 BILITOT 3.8 (H) 02/28/2025 BILITOT 3.4 (H) 02/27/2025 Lab Results Component Value Date INR 1.47 (H) 02/22/2025 INR 1.47 (H) 02/18/2025 Follow-up: Patient seen resting in bed. Primary RN consulted for follow up. The patient's labs and vitals are stable at this time. Yesterday morning the patient's serum phos was 2.0. No replacement was ordered, although the patient is eating his meals as reported by the primary RN. The primary RN voiced no concerns at this time. The adjusto writer operator urged the primary RN to call the rapid team if any concerns arise overnight. Paul Luna RN Rapid Response Team Nurse [phone] 03/01/2025 2:28 AM * Cinthya Diez RN - 02/28/2025 2:32 PM EDT Patient Name: Lindsay Pinto : 1965 Primary Care Physician: Jalen Linder MD Admission Date: 02/18/2025 RAPID RESPONSE TEAM ICU TRANSFER FOLLOW-UP NOTE SUBJECTIVE / OBJECTIVE: Follow-up for previous transfer out of the ICU notification for 02/27 at 1412. ASSESSMENT / INTERVENTIONS: Recent Vital Signs: Vitals: 02/28/25 0805 02/28/25 0900 02/28/25 1230 02/28/25 1300 BP: 97/76 (!) 114/99 98/75 101/76 BP Location: Patient Position: Pulse: (!) 113 (!) 126 (!) 113 106 Resp: Temp: 36.1 ??C (97 ??F) 36.4 ??C (97.5 ??F) TempSrc: Temporal Temporal SpO2: 98% 100% 100% 98% Weight: Height: Latest Labs: Lab Results Component Value Date WBC 8.84 02/28/2025 WBC 9.07 02/27/2025 HGB 8.3 (L) 02/28/2025 HGB 8.9 (L) 02/27/2025 HCT 24.3 (L) 02/28/2025 HCT 25.1 (L) 02/27/2025 MCV 90.0 02/28/2025 MCV 88.4 02/27/2025 PLT 255 02/28/2025 PLT 261 02/27/2025 NEUTROABS 8.79 (H) 02/22/2025 NEUTROABS 5.21 02/18/2025 Lab Results Component Value Date GLUCOSE 98 02/28/2025 GLUCOSE 100 02/27/2025 CALCIUM 7.9 (L) 02/28/2025 CALCIUM 7.8 (L) 02/27/2025 NA 131 (L) 02/28/2025 NA 131 (L) 02/27/2025 K 4.0 02/28/2025 K 4.1 02/27/2025 CO2 23 02/28/2025 CO2 25 02/27/2025 CL 102 02/28/2025 CL 102 02/27/2025 BUN 16 02/28/2025 BUN 17 02/27/2025 CREATININE 0.75 02/28/2025 CREATININE 0.64 (L) 02/27/2025 EGFR 104.6 02/28/2025 EGFR 109.7 02/27/2025 BCR 21.3 02/28/2025 BCR 26.6 02/27/2025 Lab Results Component Value Date MG 2.0 02/28/2025 MG 2.1 02/27/2025 Lab Results Component Value Date PHOS 2.0 (L) 02/28/2025 PHOS 2.0 (L) 02/27/2025 Lab Results Component Value Date ALT 20 02/28/2025 ALT 21 02/27/2025 AST 14 02/28/2025 AST 16 02/27/2025 ALKPHOS 60 02/28/2025 ALKPHOS 54 02/27/2025 BILITOT 3.8 (H) 02/28/2025 BILITOT 3.4 (H) 02/27/2025 Lab Results Component Value Date INR 1.47 (H) 02/22/2025 INR 1.47 (H) 02/18/2025 Follow-up: Patient is up in chair during time of follow up. Patient states that he is feeling well.No emergent concerns. If emergent concerns arise call rapid response team. Cinthya Diez RN Rapid Response Team Nurse [phone] 02/28/2025 2:32 PM * Radha Aguilar RN - 02/27/2025 10:35 PM EDT Patient Name: Lindsay Pinto : 1965 Primary Care Physician: Jalen Linder MD Admission Date: 02/18/2025 RAPID RESPONSE TEAM ICU TRANSFER FOLLOW-UP NOTE SUBJECTIVE / OBJECTIVE: Follow-up for previous transfer out of the ICU notification for 02/27/25 at 1412. ASSESSMENT / INTERVENTIONS: Recent Vital Signs: Vitals: 02/27/25 1720 02/27/25 1943 02/27/25 1944 02/27/25 2200 BP: 115/79 92/77 BP Location: Left arm Patient Position: Sitting Pulse: (!) 112 (!) 122 (!) 122 (!) 119 Resp: 11 14 14 (!) 31 Temp: 36.6 ??C (97.9 ??F) TempSrc: Temporal SpO2: 97% 98% 98% 99% Weight: Height: Latest Labs: Lab Results Component Value Date WBC 10.96 (H) 02/27/2025 WBC 8.02 02/27/2025 HGB 9.6 (L) 02/27/2025 HGB 8.5 (L) 02/27/2025 HCT 27.4 (L) 02/27/2025 HCT 24.7 (L) 02/27/2025 MCV 87.8 02/27/2025 MCV 89.8 02/27/2025 PLT 284 02/27/2025 PLT 233 02/27/2025 NEUTROABS 8.79 (H) 02/22/2025 NEUTROABS 5.21 02/18/2025 Lab Results Component Value Date GLUCOSE 100 02/27/2025 GLUCOSE 94 02/26/2025 CALCIUM 7.8 (L) 02/27/2025 CALCIUM 7.9 (L) 02/26/2025 NA 131 (L) 02/27/2025 NA 133 (L) 02/26/2025 K 4.1 02/27/2025 K 3.9 02/26/2025 CO2 25 02/27/2025 CO2 27 02/26/2025 CL 102 02/27/2025 CL 103 02/26/2025 BUN 17 02/27/2025 BUN 25 02/26/2025 CREATININE 0.64 (L) 02/27/2025 CREATININE 0.80 02/26/2025 EGFR 109.7 02/27/2025 EGFR 102.6 02/26/2025 BCR 26.6 02/27/2025 BCR 31.3 02/26/2025 Lab Results Component Value Date MG 2.1 02/27/2025 MG 2.2 02/26/2025 Lab Results Component Value Date PHOS 2.0 (L) 02/27/2025 PHOS 1.8 (L) 02/26/2025 Lab Results Component Value Date ALT 21 02/27/2025 ALT 24 02/26/2025 AST 16 02/27/2025 AST 16 02/26/2025 ALKPHOS 54 02/27/2025 ALKPHOS 54 02/26/2025 BILITOT 3.4 (H) 02/27/2025 BILITOT 3.5 (H) 02/26/2025 Lab Results Component Value Date INR 1.47 (H) 02/22/2025 INR 1.47 (H) 02/18/2025 Follow-up: Pt resting in bed at time of follow-up. Remains in a-fib. Rate 105- 130. Room air. No concerns noted by primary RN. Please reach out to rapid team for concerns or urgent needs. Radha Aguilar RN Rapid Response Team Nurse [phone] 02/27/2025 11:35 PM * Shantelle Heck RN - 02/22/2025 7:22 AM EDT Medical Voucher Clerk called rapid at 0607 am pt was hypotensive BP 53/38 DISTRICT SCOUT EXECUTIVE nurse at bedside 0609 am. MD notified came to bedside, orders were placed. 0700 BP 91/63. Day shift DISTRICT SCOUT EXECUTIVE nurse at bedside. documented in this encounter Miscellaneous Notes * Care Plan - Jenny Ramachandran RN - 03/05/2025 10:58 AM EDT The patient is Moderately Stable - Low risk of patient condition declining or worsening The patient's goals for the shift include Comfort and rest The clinical goals for the shift include VSS and safety * Care Plan - Geena Figueroa RN - 03/04/2025 4:49 PM EDT Daily Case Management Update Barriers to Discharge: Pending clinical course, improvement, clearance. Hgb dropped to 7.7. Hold coronary angiogram; Will do CTA instead to get etiology of low EF. If CTA shows significant CAD; will consider outpatient cath. Followed by Dr. Rosenberg. CV 03/03 to NSR. Heparin gtt continues. New drop in EF 15%. Diet: Dietary Orders (From admission, onward) Start Ordered 03/04/25 1148 Regular Diet Heart Healthy/HTN, CABG,Stroke, (2gNA, low fat, low cholesterol) Diet effective now Question Answer Comment Room Service? Yes Fat restriction: Heart Healthy/HTN, CABG,Stroke, (2gNA, low fat, low cholesterol) 03/04/25 1147 02/19/25 1215 Dietary nutrition supplements Breakfast; Boost Glucose Control; Chocolate; 8 oz; OralUntil discontinued Question Answer Comment Deliver with Breakfast Select supplement: Boost Glucose Control Flavor: Chocolate Strength: 8 oz Route Oral 02/19/25 1214 Physician Expected Discharge Date: 02/23/2025 Discharge Delays: PT Six Click Score: 22 OT Six Click Score: 24 PT Recommendations: Patient is able to return to prior living environment, Home PT OT Recommendations: Patient is able to return to prior living environment New Consults: Consult Orders (From admission, onward) Start Ordered 02/28/25 1319 Inpatient consult to Cardiology Once Specialty: Cardiology Provider: (Not yet assigned) Question Answer Comment Consulting Group CARDIOLOGY TEAM Reason for Consult? Recommendations including amiodarone transition for PO regimen, recs for timeline of ischemic work-up, discharge planning/Life Vest recommendations as appropriate Level of Consultation Consultation and Management 02/28/25 1321 02/18/25 2302 Inpatient consult to Cardiology Once Specialty: Cardiology Provider: (Not yet assigned) Question Answer Comment Consulting Group CARDIOLOGY TEAM Reason for Consult? new CHF, new Afib, possible need for cath Level of Consultation Consultation and Management 02/18/25 2302 Therapy Orders (From admission, onward) Start Ordered 02/24/25 1413 PT eval and treat Until therapy completed Question: Reason for PT? Answer: eval and treat 02/24/25 1413 02/24/25 1413 OT eval and treat Until therapy completed Question: Reason for OT? Answer: eval and treat 02/24/25 1413 * Care Plan - Apryl Hollis RN - 03/04/2025 9:33 AM EDT The patient is Moderately Stable - Low risk of patient condition declining or worsening The patient's goals for the shift include comfort The clinical goals for the shift include VSS, safety * Care Plan - Ayde Hamm RN - 03/03/2025 6:42 PM EDT The patient is Moderately Stable - Low risk of patient condition declining or worsening The patient's goals for the shift include Cardioversion The clinical goals for the shift include Hemodynamically stable, VSS, comfort, pain control Over the shift, the patient did not make progress toward the following goals. Barriers to progression include ongoing management of new-onset atrial fibrillation with RVR, severely reduced EF (15%), and acute decompensated heart failure. The patient requires continued rate control, digoxin loading,and cardiology guidance on long-term regimen, ischemic work-up, and possible LifeVest. Low blood pressure limits initiation of GDMT and resumption of home antihypertensives. Elevated bilirubin and untreated ENA also remain concerns, with follow-up needed. Patient restarted on anticoagulation for planned heart cath. Recommendations to address these barriers include monitor hemodynamics, cardiac rhythm, hemoglobin/hematocrit, and abdominal exam for hematoma stability. Continue strict I&O, daily weights, and medication titration per cardiology. Reinforce education on CPAP use, HF management, and discharge medications. Encourage mobility as tolerated, support bowel regimen, and coordinate follow-up with cardiology, vascular surgery, and case management for safe discharge planning. Problem: Cardiovascular - Adult Goal: Maintains optimal cardiac output and hemodynamic stability Outcome: Not Progressing Flowsheets (Taken 03/03/2025 07) Maintains optimal cardiac output and hemodynamic stability: Monitor blood pressure and heart rate Goal: Absence of cardiac dysrhythmias or at baseline Outcome: Not Progressing Flowsheets (Taken 03/03/2025 07) Absence of cardiac dysrhythmias or at baseline: Monitor cardiac rate and rhythm * Care Plan - Ayde Hamm RN - 03/02/2025 6:08 PM EDT The patient is Moderately Stable - Low risk of patient condition declining or worsening The patient's goals for the shift include Figure out what the plan is The clinical goals for the shift include Hemodynamically stable, VSS, comfort, pain control Over the shift, the patient did not make progress toward the following goals. Barriers to progression include ongoing management of new-onset atrial fibrillation with RVR, severely reduced EF (15%), and acute decompensated heart failure. The patient requires continued rate control, digoxin loading,and cardiology guidance on long-term regimen, ischemic work-up, and possible LifeVest. Low blood pressure limits initiation of GDMT and resumption of home antihypertensives. Elevated bilirubin and untreated ENA also remain concerns, with follow-up needed. Patient restarted on anticoagulation for planned BERNARDINO and Cardioversion. Recommendations to address these barriers include monitor hemodynamics, cardiac rhythm, hemoglobin/hematocrit, and abdominal exam for hematoma stability. Continue strict I&O, daily weights, and medication titration per cardiology. Reinforce education on CPAP use, HF management, and discharge medications. Encourage mobility as tolerated, support bowel regimen, and coordinate follow-up with cardiology, vascular surgery, and case management for safe discharge planning. Problem: Cardiovascular - Adult Goal: Maintains optimal cardiac output and hemodynamic stability Outcome: Not Progressing Flowsheets (Taken 03/02/2025 0757) Maintains optimal cardiac output and hemodynamic stability: Monitor blood pressure and heart rate Goal: Absence of cardiac dysrhythmias or at baseline Outcome: Not Progressing Flowsheets (Taken 03/02/2025 0757) Absence of cardiac dysrhythmias or at baseline: Monitor cardiac rate and rhythm * Care Plan - Darlyn Romano RN - 03/01/2025 8:00 PM EDT The patient is Moderately Stable - Low risk of patient condition declining or worsening The patient's goals for the shift include comfort, rest. The clinical goals for the shift include stable vitals, safety. * Care Plan - Ayde Hamm RN - 03/01/2025 6:16 PM EDT The patient is Moderately Stable - Low risk of patient condition declining or worsening The patient's goals for the shift include Figure out what the plan is The clinical goals for the shift include Hemodynamically stable, VSS, comfort, pain control Over the shift, the patient did not make progress toward the following goals. Barriers to progression include ongoing management of new-onset atrial fibrillation with RVR, severely reduced EF (15%), and acute decompensated heart failure. Anticoagulation is contraindicated due to recent hemorrhagic shock with large rectus sheath and pelvic hematomas, though hemoglobin is stable. The patient requires continued rate control, digoxin loading, and cardiology guidance on long-term regimen, ischemic work-up, and possible LifeVest. Low blood pressure limits initiation of GDMT and resumption of home an tihypertensives. Elevated bilirubin and untreated ENA also remain concerns, with follow-up needed. Recommendations to address these barriers include monitor hemodynamics, cardiac rhythm, hemoglobin/hematocrit, and abdominal exam for hematoma stability. Continue strict I&O, daily weights, and medication titration per cardiology. Reinforce education on CPAP use, HF management, and discharge medications. Encourage mobility as tolerated, support bowel regimen, and coordinate follow-up with cardiology, vascular surgery, and case management for safe discharge planning. Problem: Cardiovascular - Adult Goal: Maintains optimal cardiac output and hemodynamic stability Outcome: Not Progressing Flowsheets (Taken 03/01/2025745) Maintains optimal cardiac output and hemodynamic stability: Monitor blood pressure and heart rate Goal: Absence of cardiac dysrhythmias or at baseline Outcome: Not Progressing Flowsheets (Taken 03/01/2025745) Absence of cardiac dysrhythmias or at baseline: Monitor cardiac rate and rhythm * Care Plan - Brent Luevano RN - 02/28/2025 9:00 PM EDT The patient is Moderately Stable - Low risk of patient condition declining or worsening The patient's goals for the shift include comfort, rest The clinical goals for the shift include vss Over the shift, the patient did make progress toward the following goals. Problem: Heart Failure diagnosis knowledge deficit Goal: Patient will verbalize understanding of how heart failure affects the body Outcome: Progressing Goal: Patient will verbalize understanding of how other conditions affect the heart Outcome: Progressing Problem: Fluid retention/overload Goal: Patient will be able to identify signs and symptoms of fluid retention Outcome: Progressing Problem: Heart failure medication adherence Goal: Consistently take heart failure medication as prescribed Outcome: Progressing Problem: Insufficient exercise regimen Goal: Patient will engage in physical activity safely Outcome: Progressing Problem: Heart failure progression and care needs Goal: Patient will verbalize understanding of heart failure progression Outcome: Progressing Problem: Heart failure maintenance Goal: Patient will not experience any symptoms of shortness of breath or body swelling over the next 3 months Outcome: Progressing Problem: Safety - Adult Goal: Free from fall injury Outcome: Progressing Problem: Discharge Planning Goal: Discharge to home or other facility with appropriate resources Outcome: Progressing Problem: Chronic Conditions and Co-morbidities Goal: Patient's chronic conditions and co-morbidity symptoms are monitored and maintained or improved Outcome: Progressing Problem: Cardiovascular - Adult Goal: Maintains optimal cardiac output and hemodynamic stability Outcome: Progressing Goal: Absence of cardiac dysrhythmias or at baseline Outcome: Progressing Problem: Skin/Tissue Integrity - Adult Goal: Skin integrity remains intact Outcome: Progressing Problem: Hematologic - Adult Goal: Maintains hematologic stability Outcome: Progressing Problem: Gastrointestinal - Adult Goal: Minimal or absence of nausea and vomiting Outcome: Progressing Goal: Maintains or returns to baseline bowel function Outcome: Progressing Goal: Maintains adequate nutritional intake Outcome: Progressing Problem: Genitourinary - Adult Goal: Absence of urinary retention Outcome: Progressing Goal: Urinary catheter remains patent Outcome: Progressing Problem: Infection - Adult Goal: Absence of infection at discharge Outcome: Progressing Goal: Absence of infection during hospitalization Outcome: Progressing Problem: Metabolic/Fluid and Electrolytes - Adult Goal: Electrolytes maintained within normal limits Outcome: Progressing Goal: Hemodynamic stability and optimal renal function maintained Outcome: Progressing * Care Plan - Brent Luevano RN - 02/27/2025 9:56 PM EDT The patient is Moderately Stable - Low risk of patient condition declining or worsening The patient's goals for the shift include comfort, rest The clinical goals for the shift include vss Over the shift, the patient did make progress toward the following goals. Problem: Heart Failure diagnosis knowledge deficit Goal: Patient will verbalize understanding of how heart failure affects the body Outcome: Progressing Goal: Patient will verbalize understanding of how other conditions affect the heart Outcome: Progressing Problem: Fluid retention/overload Goal: Patient will be able to identify signs and symptoms of fluid retention Outcome: Progressing Problem: Heart failure medication adherence Goal: Consistently take heart failure medication as prescribed Outcome: Progressing Problem: Insufficient exercise regimen Goal: Patient will engage in physical activity safely Outcome: Progressing Problem: Heart failure progression and care needs Goal: Patient will verbalize understanding of heart failure progression Outcome: Progressing Problem: Heart failure maintenance Goal: Patient will not experience any symptoms of shortness of breath or body swelling over the next 3 months Outcome: Progressing Problem: Safety - Adult Goal: Free from fall injury Outcome: Progressing Problem: Discharge Planning Goal: Discharge to home or other facility with appropriate resources Outcome: Progressing Problem: Chronic Conditions and Co-morbidities Goal: Patient's chronic conditions and co-morbidity symptoms are monitored and maintained or improved Outcome: Progressing Problem: Cardiovascular - Adult Goal: Maintains optimal cardiac output and hemodynamic stability Outcome: Progressing Goal: Absence of cardiac dysrhythmias or at baseline Outcome: Progressing Problem: Skin/Tissue Integrity - Adult Goal: Skin integrity remains intact Outcome: Progressing Problem: Hematologic - Adult Goal: Maintains hematologic stability Outcome: Progressing Problem: Gastrointestinal - Adult Goal: Minimal or absence of nausea and vomiting Outcome: Progressing Goal: Maintains or returns to baseline bowel function Outcome: Progressing Goal: Maintains adequate nutritional intake Outcome: Progressing Problem: Genitourinary - Adult Goal: Absence of urinary retention Outcome: Progressing Goal: Urinary catheter remains patent Outcome: Progressing Problem: Infection - Adult Goal: Absence of infection at discharge Outcome: Progressing Goal: Absence of infection during hospitalization Outcome: Progressing Problem: Metabolic/Fluid and Electrolytes - Adult Goal: Electrolytes maintained within normal limits Outcome: Progressing Goal: Hemodynamic stability and optimal renal function maintained Outcome: Progressing * Care Plan - Monica Murcia RN - 02/26/2025 9:25 PM EDT The patient is Moderately Stable - Low risk of patient condition declining or worsening The patient's goals for the shift include rest The clinical goals for the shift include stable vital signs and absence of arrythmias Over the shift, the patient did not make progress toward the following goals. Barriers to progression include none noted. Recommendations to address these barriers include m/a. Problem: Heart Failure diagnosis knowledge deficit Goal: Patient will verbalize understanding of how heart failure affects the body Outcome: Not Progressing * Care Plan - Cynthia Tan RN - 02/25/2025 6:20 PM EDT Problem: Heart Failure diagnosis knowledge deficit Goal: Patient will verbalize understanding of how heart failure affects the body Outcome: Progressing Problem: Fluid retention/overload Goal: Patient will be able to identify signs and symptoms of fluid retention Outcome: Progressing Problem: Discharge Planning Goal: Discharge to home or other facility with appropriate resources Outcome: Progressing Problem: Chronic Conditions and Co-morbidities Goal: Patient's chronic conditions and co-morbidity symptoms are monitored and maintained or improved Outcome: Progressing Problem: Skin/Tissue Integrity - Adult Goal: Skin integrity remains intact Outcome: Progressing Problem: Gastrointestinal - Adult Goal: Minimal or absence of nausea and vomiting Outcome: Progressing Goal: Maintains or returns to baseline bowel function Outcome: Progressing Goal: Maintains adequate nutritional intake Outcome: Progressing Problem: Genitourinary - Adult Goal: Absence of urinary retention Outcome: Progressing Goal: Urinary catheter remains patent Outcome: Progressing Problem: Metabolic/Fluid and Electrolytes - Adult Goal: Electrolytes maintained within normal limits Outcome: Progressing * Care Plan - Robyn Regalado RN - 02/23/2025 4:39 PM EDT Daily Case Management Update Multidisciplinary rounds have been completed. Barriers to Discharge: 02/23- on amio drip, a touch of levophed, renal function worsening, Heparin drip off due to hematoma (bilat rectus hematoma), Hemoglobin is slowly trending down 14.5 -> 11.4 -> 10.4. hematuria. Vascular on, no interventions at this time. On RA. cb Diet: Dietary Orders (From admission, onward) Start Ordered 02/22/25 1613 Dysphagia III Soft Diet Diet effective now Question: Room Service? Answer: No 02/22/25 1612 02/19/25 1215 Dietary nutrition supplements Breakfast; Boost Glucose Control; Chocolate; 8 oz; OralUntil discontinued Question Answer Comment Deliver with Breakfast Select supplement: Boost Glucose Control Flavor: Chocolate Strength: 8 oz Route Oral 02/19/25 1214 Physician Expected Discharge Date: 02/23/2025 Discharge Delays: PT Six Click Score: OT Six Click Score: PT Recommendations: OT Recommendations: New Consults: Consult Orders (From admission, onward) Start Ordered 02/18/25 2302 Inpatient consult to Cardiology Once Specialty: Cardiology Provider: (Not yet assigned) Question Answer Comment Consulting Group CARDIOLOGY TEAM Reason for Consult? new CHF, new Afib, possible need for cath Level of Consultation Consultation and Management 02/18/25 2302 Ancillary Consults (From admission, onward) Start Ordered 02/19/25 1007 Inpatient consult to Social Work Once Provider: (Not yet assigned) Question Answer Comment Select all services needed for the patient Other Other: acute heart failure 02/19/25 1007 * Assessment & Plan Note - Suleiman Corcoran MD - 02/22/2025 9:46 AM EDTAssociated Problem(s): S/P gastric bypass - Stable * Assessment & Plan Note - Suleiman Corcoran MD - 02/22/2025 9:46 AM EDTAssociated Problem(s): Hematoma - Seen on abdominal rectus abdominal muscles on CT abd/pelvis 02/21 - L noted to be bigger than R - Consider holding heparin - Hgb has been stable * Assessment & Plan Note - Suleiman Corcoran MD - 02/22/2025 9:44 AM EDTAssociated Problem(s): Acute systolic CHF (congestive heart failure) ([facility]) - unable to assess NYHA class - BNP over 5000 at outside facility was 491 at [facility] -CXR showed cardiomegaly with vascular congestion and CT of the abdomen showed anasarca and ascites -Echocardiogram was completed at [place] which showed an EF of 15 to 20%, moderate pulmonary hypertension, moderate mitral valve regurgitation and small pericardial effusion - Continue Lasix 40 mg PO twice daily -Strict intake and output, daily weights. Currently net negative 8.4L - continue Toprol-XL 100mg daily - Aldactone 25 mg and valsartan held due to hypotension - Cardiology following, appreciate recommendations * Assessment & Plan Note - Suleiman Corcoran MD - 02/22/2025 9:44 AM EDTAssociated Problem(s): New onset a-fib (CMS/HCC) - Patient found to be in new onset atrial fibrillation at outside hospital, was initially on Cardizem drip but was discontinued due to low blood pressure - Patient was also initially given a dose of Xarelto at outside hospital, transitioned to heparin infusion. Will likely resume xarelto upon discharge - Continue Toprol-XL and loading dose digoxin, BERNARDINO cardioversion deferred due to hypotension and clinical instability -TSH WNL * Assessment & Plan Note - Suleiman Corcoran MD - 02/22/2025 9:44 AM EDTAssociated Problem(s): Atrial fibrillation with RVR (CMS/HCC) - Patient found to be in new onset atrial fibrillation at outside hospital, was initially on Cardizem drip but was discontinued due to low blood pressure - Patient was also initially given a dose of Xarelto at outside hospital, transitioned to heparin infusion. Will likely resume xarelto upon discharge - Continue Toprol-XL and loading dose digoxin, BERNARDINO cardioversion deferred due to hypotension and clinical instability -TSH WNL * Assessment & Plan Note - Suleiman Corcoran MD - 02/22/2025 9:44 AM EDTAssociated Problem(s): Primary hypertension - Valsartan and spironolactone held - Blood pressure has been rather hypotensive * Assessment & Plan Note - Suleiman Corcoran MD - 02/22/2025 9:44 AM EDTAssociated Problem(s): ENA (obstructive sleep apnea) - Stable, Patient currently not using CPAP * Care Plan - Shantelle Heck RN - 02/21/2025 9:49 PM EDT The patient is Moderately Stable - Low risk of patient condition declining or worsening The patient's goals for the shift include comfort The clinical goals for the shift include HR control Over the shift, the patient did make progress toward the following goals. * Assessment & Plan Note - Suleiman Corcoran MD - 02/21/2025 10:16 AM EDT Associated Problem(s): Acute systolic CHF (congestive heart failure) (CMS/HCC) - unable to assess NYHA class - BNP over 5000 at outside facility was 491 at [facility] -CXR showed cardiomegaly with vascular congestion and CT of the abdomen showed anasarca and ascites -Echocardiogram was completed at [place] which showed an EF of 15 to 20%, moderate pulmonary hypertension, moderate mitral valve regurgitation and small pericardial effusion - Continue Lasix 40 mg PO twice daily -Strict intake and output, daily weights. Currently net negative 8.4L - continue Toprol-XL 100mg daily and Aldactone 25 mg - Cardiology following, appreciate recommendations * Assessment & Plan Note - Suleiman Corcoran MD - 02/21/2025 10:16 AM EDT Associated Problem(s): New onset a-fib (CMS/HCC) - Patient found to be in new onset atrial fibrillation at outside hospital, was initially on Cardizem drip but was discontinued due to low blood pressure - Patient was also initially given a dose of Xarelto at outside hospital, transitioned to heparin infusion. Will likely resume xarelto upon discharge - Continue Toprol-XL and loading dose digoxin, BERNARDINO cardioversion once euvolemic. Likely 02/21 -TSH WNL * Assessment & Plan Note - Suleiman Corcoran MD - 02/21/2025 10:16 AM EDT Associated Problem(s): Atrial fibrillation with RVR (CMS/HCC) - Patient found to be in new onset atrial fibrillation at outside hospital, was initially on Cardizem drip but was discontinued due to low blood pressure - Patient was also initially given a dose of Xarelto at outside hospital, transitioned to heparin infusion. Will likely resume xarelto upon discharge - Continue Toprol-XL and loading dose digoxin, BERNARDINO cardioversion once euvolemic. Likely 02/21 -TSH WNL * Assessment & Plan Note - Suleiman Corcoran MD - 02/21/2025 10:16 AM EDT Associated Problem(s): Primary hypertension - Continue current valsartan, spironolactone and Toprol-XL for GDMT - Blood pressure has been within acceptable range on 02/21 AM * Assessment & Plan Note - Suleiman Corcoran MD - 02/21/2025 10:16 AM EDT Associated Problem(s): ENA (obstructive sleep apnea) - Stable, Patient currently not using CPAP * Assessment & Plan Note - Suleiman Corcoran MD - 02/21/2025 10:16 AM EDT Associated Problem(s): S/P gastric bypass - Stable * Care Plan - Liz Figueroa RN - 02/20/2025 10:12 PM EDT The patient is Moderately Stable - Low risk of patient condition declining or worsening The patient's goals for the shift include VSS The clinical goals for the shift include VSS Over the shift, the patient made progress toward the following goals: Problem: Heart Failure diagnosis knowledge deficit Goal: Patient will verbalize understanding of how heart failure affects the body Outcome: Progressing Goal: Patient will verbalize understanding of how other conditions affect the heart Outcome: Progressing Problem: Fluid retention/overload Goal: Patient will be able to identify signs and symptoms of fluid retention Outcome: Progressing Problem: Heart failure medication adherence Goal: Consistently take heart failure medication as prescribed Outcome: Progressing Problem: Insufficient exercise regimen Goal: Patient will engage in physical activity safely Outcome: Progressing Problem: Heart failure progression and care needs Goal: Patient will verbalize understanding of heart failure progression Outcome: Progressing Problem: Heart failure maintenance Goal: Patient will not experience any symptoms of shortness of breath or body swelling over the next 3 months Outcome: Progressing Problem: Safety - Adult Goal: Free from fall injury Outcome: Progressing Problem: Discharge Planning Goal: Discharge to home or other facility with appropriate resources Outcome: Progressing Problem: Chronic Conditions and Co-morbidities Goal: Patient's chronic conditions and co-morbidity symptoms are monitored and maintained or improved Outcome: Progressing Problem: Cardiovascular - Adult Goal: Maintains optimal cardiac output and hemodynamic stability Outcome: Progressing Goal: Absence of cardiac dysrhythmias or at baseline Outcome: Progressing Problem: Skin/Tissue Integrity - Adult Goal: Skin integrity remains intact Outcome: Progressing Problem: Hematologic - Adult Goal: Maintains hematologic stability Outcome: Progressing * Assessment & Plan Note - Kamran Del Valle MD - 02/20/2025 12:57 PM EDTAssociated Problem(s): Acute systolic CHF (congestive heart failure) (CMS/HCC) - unable to assess NYHA class - BNP over 5000 at outside facility was 491 at [facility] -CXR showed cardiomegaly with vascular congestion and CT of the abdomen showed anasarca and ascites -Echocardiogram was completed today at [place] which showed an EF of 15 to 20%, moderate pulmonaryhypertension, moderate mitral valve regurgitation and small pericardial effusion -Begin Lasix 40 mg IV twice daily -Strict intake and output, daily weights - continue lisinopril, Toprol-XL and Aldactone 25 mg * Assessment & Plan Note - Kamran Del Valle MD - 02/20/2025 12:57 PM EDTAssociated Problem(s): New onset a-fib (CMS/HCC) - Patient found to be in new onset atrial fibrillation at outside hospital, was initially on Cardizem drip but was discontinued due to low blood pressure -Patient was also initially given a dose of Xarelto at outside hospital, will transition to heparininfusion -Continue Toprol-XL and loading dose digoxin, BERNARDINO cardioversion once euvolemic -TSH WNL * Assessment & Plan Note - Kamran Del Valle MD - 02/20/2025 12:57 PM EDTAssociated Problem(s): Primary hypertension - Continue current lisinopril and Toprol-XL * Assessment & Plan Note - Kamran Del Valle MD - 02/20/2025 12:57 PM EDTAssociated Problem(s): ENA (obstructive sleep apnea) - Stable,Patient currently not using CPAP * Assessment & Plan Note - Kamran Del Valle MD - 02/20/2025 12:57 PM EDTAssociated Problem(s): S/P gastric bypass - Stable * Care Plan - Opal Anand RN - 02/20/2025 7:51 AM EDT The patient is Moderately Stable - Low risk of patient condition declining or worsening The patient's goals for the shift include comfort The clinical goals for the shift include stable hemodynamics Over the shift, the patient did make progress toward the following goals. Problem: Heart Failure diagnosis knowledge deficit Goal: Patient will verbalize understanding of how heart failure affects the body Outcome: Progressing Goal: Patient will verbalize understanding of how other conditions affect the heart Outcome: Progressing Problem: Fluid retention/overload Goal: Patient will be able to identify signs and symptoms of fluid retention Outcome: Progressing Problem: Heart failure medication adherence Goal: Consistently take heart failure medication as prescribed Outcome: Progressing * Care Plan - Liz Figueroa RN - 02/20/2025 12:09 AM EDT The patient is Moderately Stable - Low risk of patient condition declining or worsening The patient's goals for the shift include VSS / comfort The clinical goals for the shift include VSS / HR control Over the shift, the patient made progress toward the following goals Problem: Heart Failure diagnosis knowledge deficit Goal: Patient will verbalize understanding of how heart failure affects the body Outcome: Progressing Goal: Patient will verbalize understanding of how other conditions affect the heart Outcome: Progressing Problem: Fluid retention/overload Goal: Patient will be able to identify signs and symptoms of fluid retention Outcome: Progressing Problem: Heart failure medication adherence Goal: Consistently take heart failure medication as prescribed Outcome: Progressing Problem: Insufficient exercise regimen Goal: Patient will engage in physical activity safely Outcome: Progressing Problem: Heart failure progression and care needs Goal: Patient will verbalize understanding of heart failure progression Outcome: Progressing Problem: Heart failure maintenance Goal: Patient will not experience any symptoms of shortness of breath or body swelling over the next 3 months Outcome: Progressing Problem: Safety - Adult Goal: Free from fall injury Outcome: Progressing Problem: Discharge Planning Goal: Discharge to home or other facility with appropriate resources Outcome: Progressing Problem: Chronic Conditions and Co-morbidities Goal: Patient's chronic conditions and co-morbidity symptoms are monitored and maintained or improved Outcome: Progressing Problem: Cardiovascular - Adult Goal: Maintains optimal cardiac output and hemodynamic stability Outcome: Progressing Goal: Absence of cardiac dysrhythmias or at baseline Outcome: Progressing Problem: Skin/Tissue Integrity - Adult Goal: Skin integrity remains intact Outcome: Progressing Problem: Hematologic - Adult Goal: Maintains hematologic stability Outcome: Progressing * Assessment & Plan Note - Kamran Del Valle MD - 02/19/2025 2:43 PM EDTAssociated Problem(s): Acute systolic CHF (congestive heart failure) (CMS/HCC) - unable to assess NYHA class - BNP over 5000 at outside facility was 491 at [facility] -CXR showed cardiomegaly with vascular congestion and CT of the abdomen showed anasarca and ascites -Echocardiogram was completed today at [place] which showed an EF of 15 to 20%, moderate pulmonaryhypertension, moderate mitral valve regurgitation and small pericardial effusion -Patient noted to have EF 55% and this is significant drop in EF her -Begin Lasix 40 mg IV twice daily -Strict intake and output, daily weights - continue lisinopril, Toprol-XL and Aldactone 25 mg -Patient to have cardiac cath * Assessment & Plan Note - Kamran Del Valle MD - 02/19/2025 2:43 PM EDTAssociated Problem(s): New onset a-fib (CMS/HCC) - Patient found to be in new onset atrial fibrillation at outside hospital, was initially on Cardizem drip but was discontinued due to low blood pressure -Patient was also initially given a dose of Xarelto at outside hospital, will transition to heparininfusion -Continue Toprol-XL and loading dose digoxin, possible BERNARDINO cardioversion. - -TSH WNL * Assessment & Plan Note - Kamran Del Valle MD - 02/19/2025 2:43 PM EDTAssociated Problem(s): Primary hypertension - Continue current lisinopril and Toprol-XL * Assessment & Plan Note - Kamran Del Valle MD - 02/19/2025 2:43 PM EDTAssociated Problem(s): ENA (obstructive sleep apnea) - Stable,Patient currently not using CPAP * Assessment & Plan Note - Kamran Del Valle MD - 02/19/2025 2:43 PM EDTAssociated Problem(s): S/P gastric bypass - Stable * Care Plan - Sarah Sanabria RN - 02/19/2025 1:40 PM EDT Daily Case Management Update Multidisciplinary rounds have been completed. Barriers to Discharge: Transfer from [place] with new onset Afib and CHF. CXR showed cardiomegaly with vascular congestion. CT abdomen showed ascites and anasarca. BNP at [facility] over 5000. EF 15-20%. Trops 27->30 ->29. On heparin drip and IV diuresis. Cardiology following. NPO at midnight for right heart cath. Once euvolemic, possible BERNARDINO cardioversion. Diet: Dietary Orders (From admission, onward) Start Ordered 02/19/25 1315 Regular Diet Heart Healthy/HTN, CABG,Stroke, (2gNA, low fat, low cholesterol) Diet effective now Question Answer Comment Room Service? Yes Fat restriction: Heart Healthy/HTN, CABG,Stroke, (2gNA, low fat, low cholesterol) 02/19/25 1315 02/19/25 1215 Dietary nutrition supplements Breakfast; Boost Glucose Control; Chocolate; 8 oz; Oral Until discontinued Question Answer Comment Deliver with Breakfast Select supplement: Boost Glucose Control Flavor: Chocolate Strength: 8 oz Route Oral 02/19/25 1214 Physician Expected Discharge Date: 02/21/2025 Discharge Delays: PT Six Click Score: OT Six Click Score: PT Recommendations: OT Recommendations: Does patient understand post acute plan of care? Yes Is expected discharge disposition appropriate for patient?: Yes New Consults: Consult Orders (From admission, onward) Start Ordered 02/18/25 2302 Inpatient consult to Cardiology Once Specialty: Cardiology Provider: (Not yet assigned) Question Answer Comment Consulting Group CARDIOLOGY TEAM Reason for Consult? new CHF, new Afib, possible need for cath Level of Consultation Consultation and Management 02/18/25 2302 Ancillary Consults (From admission, onward) Start Ordered 02/19/25 1007 Inpatient consult to Social Work Once Provider: (Not yet assigned) Question Answer Comment Select all services needed for the patient Other Other: acute heart failure 02/19/25 1007 * Treatment Plan - Dell Handley MD - 02/19/2025 3:43 AM EDT A/p reviewed and agreed * Assessment & Plan Note - Carol Carter CNP - 02/18/2025 11:00 PM EDTAssociated Problem(s): Acute systolic CHF (congestive heart failure) (CMS/HCC) - BNP over 5000 at outside facility was 491 at [facility] -CXR showed cardiomegaly with vascular congestion and CT of the abdomen showed anasarca and ascites -Echocardiogram was completed today at [place] which showed an EF of 15 to 20%, moderate pulmonaryhypertension, moderate mitral valve regurgitation and small pericardial effusion -Begin Lasix 40 mg IV twice daily -Strict intake and output, daily weights -Will make n.p.o. for possible right heart cath -Troponin mildly elevated, likely type II, will continue to trend * Assessment & Plan Note - Carol Carter CNP - 02/18/2025 11:00 PM EDTAssociated Problem(s): New onset a-fib (CMS/HCC) - Patient found to be in new onset atrial fibrillation at outside hospital, was initially on Cardizem drip but was discontinued due to low blood pressure -Patient was also initially given a dose of Xarelto at outside hospital, will transition to heparininfusion -Blood pressure still borderline, 5 mg IV Lopressor given without relief, will initiate digoxin IV loading dose, electrolytes within normal limits -TSH WNL * Assessment & Plan Note - Carol Carter CNP - 02/18/2025 11:00 PM EDTAssociated Problem(s): Pericardial effusion - Small pericardial effusion noted on echocardiogram, cardiology consult * Assessment & Plan Note - Carol Carter CNP - 02/18/2025 11:00 PM EDTAssociated Problem(s): Moderate mitral valve regurgitation - Cardiology consult * Assessment & Plan Note - Carol Carter CNP - 02/18/2025 11:00 PM EDTAssociated Problem(s): Primary hypertension - Continue labetalol * Assessment & Plan Note - Carol Carter CNP - 02/18/2025 11:00 PM EDTAssociated Problem(s): ENA (obstructive sleep apnea) - Stable * Assessment & Plan Note - Carol Carter CNP - 02/18/2025 11:00 PM EDTAssociated Problem(s): S/P gastric bypass - Stable * Care Plan - Liz Figueroa RN - 02/18/2025 8:23 PM EDT The patient is Moderately Unstable - Medium risk of patient condition declining or worsening The patient's goals for the shift include NPO at 0000 The clinical goals for the shift include lower HR Over the shift, the patient made progress toward the following goals: Problem: Heart Failure diagnosis knowledge deficit Goal: Patient will verbalize understanding of how heart failure affects the body Outcome: Progressing Goal: Patient will verbalize understanding of how other conditions affect the heart Outcome: Progressing Problem: Fluid retention/overload Goal: Patient will be able to identify signs and symptoms of fluid retention Outcome: Progressing Problem: Heart failure medication adherence Goal: Consistently take heart failure medication as prescribed Outcome: Progressing Problem: Insufficient exercise regimen Goal: Patient will engage in physical activity safely Outcome: Progressing Problem: Heart failure progression and care needs Goal: Patient will verbalize understanding of heart failure progression Outcome: Progressing Problem: Heart failure maintenance Goal: Patient will not experience any symptoms of shortness of breath or body swelling over the next 3 months Outcome: Progressing Problem: Safety - Adult Goal: Free from fall injury Outcome: Progressing Problem: Discharge Planning Goal: Discharge to home or other facility with appropriate resources Outcome: Progressing Problem: Chronic Conditions and Co-morbidities Goal: Patient's chronic conditions and co-morbidity symptoms are monitored and maintained or improved Outcome: Progressing Problem: Cardiovascular - Adult Goal: Maintains optimal cardiac output and hemodynamic stability Outcome: Progressing Goal: Absence of cardiac dysrhythmias or at baseline Outcome: Progressing Problem: Skin/Tissue Integrity - Adult Goal: Skin integrity remains intact Outcome: Progressing Problem: Hematologic - Adult Goal: Maintains hematologic stability Outcome: Progressing Problem: Pain - Adult Goal: Verbalizes/displays adequate comfort level or baseline comfort level Outcome: Met Problem: Respiratory - Adult Goal: Achieves optimal ventilation and oxygenation Outcome: Met documented in this encounter Plan of Treatment Upcoming Encounters Date Type Department Care Team (Late st Contact Info) Description 03/18/2025 10:30 AM EDT Follow-Up [facility] Urology [address] [place] [id number] Haily Botello, [employer] [address], [place] [id number] 03/22/2025 1:30 PM EDT Follow-Up [facility] Vascular and Endovascular Surgery [address] [place] [id number] Jeni Murray NP [address] [facility] [place] [address] [place], [place] [id number] 03/23/2025 1:00 PM EDT Follow-Up [facility] [address] [place] [address] Prabhu Chavez MD [address] [place] [address] Scheduled Referrals Name Type Priority Associated Diagnoses Order Schedule Ambulatory referral to Cardiac Rehab Outpatient Referral Routine Chronic HFrEF (heart failure with reduced ejection fraction) ([facility]) Expected: 02/19/2025 (Approximate), Expires: 08/22/2025 Ambulatory referral to Cardiac Rehab Outpatient Referral Routine Chronic HFrEF (heart failure with reduced ejection fraction) ([facility]) Expected: 02/19/2025 (Approximate), Expires: 08/22/2025 documented as of this encounter Procedures Procedure Name Priority Date/Time Associated Diagnosis Comments CBC Pending Discharge 03/05/2025 5:00 AM EDT PHOSPHORUS Pending Discharge 03/05/2025 5:00 AM EDT MAGNESIUM Pending Discharge 03/05/2025 5:00 AM EDT COMPREHENSIVE METABOLIC PANEL Pending Discharge 03/05/2025 5:00 AM EDT CTA HEART CORONARY W IV CONTRAST W OR WO FFRCT Routine 03/04/2025 3:29 PM EDT EXTRA TUBES Routine 03/04/2025 4:48 AM EDT LAVENDER TOP Routine 03/04/2025 4:48 AM EDT LIGHT GREEN TOP Routine 03/04/2025 4:48 AM EDT ANTI-FACTOR XA Pending Discharge 03/04/2025 4:41 AM EDT ECG 12-LEAD STAT 03/04/2025 4:06 AM EDT ANTI-FACTOR XA Pending Discharge 03/04/2025 1:08 AM EDT CBC Pending Discharge 03/04/2025 1:08 AM EDT PHOSPHORUS Pending Discharge 03/04/2025 1:08 AM EDT MAGNESIUM Pending Discharge 03/04/2025 1:08 AM EDT COMPREHENSIVE METABOLIC PANEL Pending Discharge 03/04/2025 1:08 AM EDT ANTI-FACTOR XA Pending Discharge 03/03/2025 7:54 PM EDT APTT STAT 03/03/2025 12:54 PM EDT PLATELET COUNT STAT Add-on 03/03/2025 12:54 PM EDT ECG 12-LEAD Routine 03/03/2025 10:36 AM EDT TRANSESOPHAGEAL ECHO (BERNARDINO) W/ LIMITED DOPPLER AND COLOR FLOW Routine 03/03/2025 10:09 AM EDT CARDIOVERSION Routine 03/03/2025 10:01 AM EDT A-fib (CMS/HCC) ECG 12-LEAD Routine 03/03/2025 9:26 AM EDT ANTI-FACTOR XA Pending Discharge 03/03/2025 3:46 AM EDT CBC Pending Discharge 03/03/2025 3:46 AM EDT PHOSPHORUS Pending Discharge 03/03/2025 3:46 AM EDT MAGNESIUM Pending Discharge 03/03/2025 3:46 AM EDT DIGOXIN LEVEL Pending Discharge 03/03/2025 3:46 AM EDT COMPREHENSIVE METABOLIC PANEL Pending Discharge 03/03/2025 3:46 AM EDT ANTI-FACTOR XA Pending Discharge 03/02/2025 9:21 PM EDT URINALYSIS Pending Discharge 03/02/2025 2:48 PM EDT APTT STAT 03/02/2025 2:09 PM EDT LIMITED ECHO (TTE) W/ LIMITED DOPPLER, COLOR FLOW AND IMAGING AGENT Routine 03/02/2025 12:33 PM EDT EXTRA TUBES Routine 03/02/2025 4:26 AM EDT LAVENDER TOP Routine 03/02/2025 4:26 AM EDT PLATELET COUNT STAT Add-on 03/02/2025 4:26 AM EDT PHOSPHORUS Pending Discharge 03/02/2025 4:26 AM EDT MAGNESIUM Pending Discharge 03/02/2025 4:26 AM EDT COMPREHENSIVE METABOLIC PANEL Pending Discharge 03/02/2025 4:26 AM EDT EXTRA TUBES Routine 03/01/2025 5:12 AM EDT LAVENDER TOP Routine 03/01/2025 5:12 AM EDT PHOSPHORUS Pending Discharge 03/01/2025 5:12 AM EDT MAGNESIUM Pending Discharge 03/01/2025 5:12 AM EDT DIGOXIN LEVEL Add-On 03/01/2025 5:12 AM EDT COMPREHENSIVE METABOLIC PANEL Pending Discharge 03/01/2025 5:12 AM EDT CBC Pending Discharge 02/28/2025 3:42 AM EDT PHOSPHORUS Pending Discharge 02/28/2025 3:42 AM EDT MAGNESIUM Pending Discharge 02/28/2025 3:42 AM EDT COMPREHENSIVE METABOLIC PANEL Pending Discharge 02/28/2025 3:42 AM EDT CBC Pending Discharge 02/27/2025 11:38 PM EDT CBC Pending Discharge 02/27/2025 6:49 PM EDT CBC Pending Discharge 02/27/2025 12:13 PM EDT CBC Pending Discharge 02/27/2025 5:58 AM EDT PHOSPHORUS Pending Discharge 02/27/2025 5:58 AM EDT MAGNESIUM Pending Discharge 02/27/2025 5:58 AM EDT COMPREHENSIVE METABOLIC PANEL Pending Discharge 02/27/2025 5:58 AM EDT CBC Pending Discharge 02/26/2025 11:21 PM EDT CBC Pending Discharge 02/26/2025 6:18 PM EDT RETICULOCYTE PANEL Add-On 02/26/2025 11:48 AM EDT CBC Pending Discharge 02/26/2025 11:48 AM EDT IRON AND TIBC Add-On 02/26/2025 5:13 AM EDT CBC Pending Discharge 02/26/2025 5:13 AM EDT PHOSPHORUS Pending Discharge 02/26/2025 5:13 AM EDT MAGNESIUM Pending Discharge 02/26/2025 5:13 AM EDT FOLATE Add-On 02/26/2025 5:13 AM EDT FERRITIN Add-On 02/26/2025 5:13 AM EDT VITAMIN B12 Add-On 02/26/2025 5:13 AM EDT COMPREHENSIVE METABOLIC PANEL Pending Discharge 02/26/2025 5:13 AM EDT CBC Pending Discharge 02/25/2025 11:56 PM EDT CBC Pending Discharge 02/25/2025 6:08 PM EDT CBC Pending Discharge 02/25/2025 1:29 PM EDT CTA ABDOMEN PELVIS W IV CONTRAST Routine 02/25/2025 10:49 AM EDT TRANSFUSE RED BLOOD CELLS Routine 02/25/2025 10:10 AM EDT HEMOGLOBIN AND HEMATOCRIT, BLOOD Pending Discharge 02/25/2025 9:04 AM EDT CBC Pending Discharge 02/25/2025 5:06 AM EDT PHOSPHORUS Pending Discharge 02/25/2025 5:06 AM EDT MAGNESIUM Pending Discharge 02/25/2025 5:06 AM EDT DIGOXIN LEVEL Pending Discharge 02/25/2025 5:06 AM EDT COMPREHENSIVE METABOLIC PANEL Pending Discharge 02/25/2025 5:06 AM EDT CBC Pending Discharge 02/25/2025 12:06 AM EDT CBC Pending Discharge 02/24/2025 6:37 PM EDT CBC Pending Discharge 02/24/2025 12:43 PM EDT URINALYSIS WITH MICROSCOPIC Pending Discharge 02/24/2025 10:52 AM EDT SODIUM, URINE, RANDOM Pending Discharge 02/24/2025 10:52 AM EDT POTASSIUM, URINE, RANDOM Pending Discharge 02/24/2025 10:52 AM EDT OSMOLALITY, URINE Pending Discharge 02/24/2025 10:52 AM EDT CREATININE, URINE, RANDOM Pending Discharge 02/24/2025 10:52 AM EDT CHLORIDE, URINE, RANDOM Pending Discharge 02/24/2025 10:52 AM EDT US RENAL COMPLETE STAT 02/24/2025 10:09 AM EDT CBC Pending Discharge 02/24/2025 3:21 AM EDT PHOSPHORUS Pending Discharge 02/24/2025 3:21 AM EDT MAGNESIUM Pending Discharge 02/24/2025 3:21 AM EDT COMPREHENSIVE METABOLIC PANEL Pending Discharge 02/24/2025 3:21 AM EDT CBC Pending Discharge 02/23/2025 11:50 PM EDT CBC Pending Discharge 02/23/2025 6:30 PM EDT BLOOD CULTURE STAT 02/23/2025 12:04 PM EDT BLOOD CULTURE STAT 02/23/2025 12:03 PM EDT LACTIC ACID WITH 4 HOUR REFLEX Pending Discharge 02/23/2025 11:59 AM EDT CBC Pending Discharge 02/23/2025 11:15 AM EDT ECG 12-LEAD STAT 02/23/2025 9:48 AM EDT CBC Pending Discharge 02/23/2025 5:33 AM EDT PHOSPHORUS Pending Discharge 02/23/2025 5:33 AM EDT MAGNESIUM Pending Discharge 02/23/2025 5:33 AM EDT COMPREHENSIVE METABOLIC PANEL Pending Discharge 02/23/2025 5:33 AM EDT CBC Timed 02/23/2025 12:07 AM EDT BASIC METABOLIC PANEL Routine 02/23/2025 12:07 AM EDT XR CHEST 1 VIEW STAT 02/22/2025 7:06 PM EDT CBC Timed 02/22/2025 6:31 PM EDT URINALYSIS MICROSCOPIC WITH REFLEX CULTURE Routine 02/22/2025 4:15 PM EDT URINALYSIS WITH REFLEX CULTURE Routine 02/22/2025 4:[address] ABDOMEN PELVIS W IV CONTRAST STAT 02/22/2025 1:[address] CHEST W IV CONTRAST Routine 1:01 PM EDT EXTRA TUBES Routine 02/22/2025 11:49 AM EDT RED TOP Routine 02/22/2025 11:49 AM EDT PROTIME-INR STAT Add-on 02/22/2025 11:49 AM EDT ANTI-FACTOR XA Routine 02/22/2025 11:49 AM EDT CBC Timed 02/22/2025 11:49 AM EDT COMPREHENSIVE METABOLIC PANEL Routine 02/22/2025 11:49 AM EDT POCT GLUCOSE METER UNSOLICITED RESULTS Routine 02/22/2025 11:34 AM EDT LACTIC ACID WITH 4 HOUR REFLEX STAT 02/22/2025 9:47 AM EDT BLOOD CULTURE STAT 02/22/2025 9:46 AM EDT BLOOD CULTURE Routine 02/22/2025 9:46 AM EDT PREPARE RBC Routine 02/22/2025 7:31 AM EDT ECG 12-LEAD STAT 02/22/2025 7:16 AM EDT LACTIC ACID WITH 4 HOUR REFLEX STAT 02/22/2025 7:07 AM EDT HEMOGLOBIN AND HEMATOCRIT, BLOOD STAT 02/22/2025 7:07 AM EDT TYPE AND SCREEN STAT 02/22/2025 7:07 AM EDT EXTRA TUBES Routine 02/22/2025 7:00 AM EDT LIGHT GREEN TOP Routine 02/22/2025 7:00 AM EDT HEPATIC FUNCTION PANEL Add-On 7:00 AM EDT HIGH SENSITIVITY TROPONIN I STAT 02/22/2025 6:58 AM EDT CBC WITH AUTO DIFFERENTIAL STAT 02/22/2025 6:58 AM EDT CBC AND DIFFERENTIAL STAT 02/22/2025 6:58 AM EDT MAGNESIUM STAT 02/22/2025 6:58 AM EDT POCT GLUCOSE METER UNSOLICITED RESULTS Routine 02/22/2025 6:13 AM EDT ANTI-FACTOR XA Pending Discharge 02/22/2025 5:08 AM EDT HIGH SENSITIVITY TROPONIN I Add-On 02/22/2025 5:00 AM EDT EXTRA TUBES Routine 02/22/2025 5:00 AM EDT LAVENDER TOP Routine 02/22/2025 5:00 AM EDT LIGHT GREEN TOP Routine 02/22/2025 5:00 AM EDT CBC STAT Add-on 02/22/2025 5:00 AM EDT MAGNESIUM Add-On 02/22/2025 5:[address] ABDOMEN PELVIS WO IV CONTRAST STAT 02/21/2025 11:54 AM EDT APTT Pending Discharge 02/21/2025 3:55 AM EDT ANTI-FACTOR XA Pending Discharge 02/21/2025 3:55 AM EDT CBC Pending Discharge 02/21/2025 3:55 AM EDT BASIC METABOLIC PANEL Pending Discharge 02/21/2025 3:55 AM EDT ANTI-FACTOR XA Timed 02/20/2025 11:40 PM EDT ANTI-FACTOR XA Timed 02/20/2025 5:38 PM EDT APTT Routine 02/20/2025 9:39 AM EDT ANTI-FACTOR XA STAT 02/20/2025 9:39 AM EDT HEMOGLOBIN AND HEMATOCRIT, BLOOD Routine 02/20/2025 4:16 AM EDT BASIC METABOLIC PANEL Routine 02/20/2025 4:16 AM EDT HIGH SENSITIVITY TROPONIN I Timed 02/19/2025 6:03 PM EDT HIGH SENSITIVITY TROPONIN I Timed 02/19/2025 11:06 AM EDT ECG 12-LEAD STAT 02/19/2025 9:30 AM EDT APTT Routine 02/19/2025 8:19 AM EDT ANTI-FACTOR XA Routine 02/19/2025 8:19 AM EDT HIGH SENSITIVITY TROPONIN I Timed 02/19/2025 4:18 AM EDT CBC Routine 02/19/2025 4:18 AM EDT MAGNESIUM Add-On 02/19/2025 4:18 AM EDT BASIC METABOLIC PANEL Routine 02/19/2025 4:18 AM EDT HIGH SENSITIVITY TROPONIN I Timed 02/19/2025 1:25 AM EDT EXTRA TUBES Routine 02/19/2025 1:25 AM EDT LAVENDER TOP Routine 02/19/2025 1:25 AM EDT APTT Routine 02/19/2025 1:25 AM EDT ANTI-FACTOR XA Routine 02/19/2025 1:25 AM EDT ECG 12-LEAD STAT 02/18/2025 7:30 PM EDT HIGH SENSITIVITY TROPONIN I STAT 02/18/2025 6:46 PM EDT TSH3 REFLEX TO FT4 STAT 02/18/2025 6: 46 PM EDT CBC WITH AUTO DIFFERENTIAL STAT 02/18/2025 6:46 PM EDT APTT STAT 02/18/2025 6:46 PM EDT PROTIME-INR STAT 02/18/2025 6:46 PM EDT ANTI-FACTOR XA Add-On 02/18/2025 6:46 PM EDT CBC AND DIFFERENTIAL STAT 02/18/2025 6:46 PM EDT PHOSPHORUS STAT 02/18/2025 6:46 PM EDT B-TYPE NATRIURETIC PEPTIDE STAT 02/18/2025 6:46 PM EDT MAGNESIUM STAT 02/18/2025 6:46 PM EDT LACTIC ACID, PLASMA STAT 02/18/2025 6 :46 PM EDT COMPREHENSIVE METABOLIC PANEL STAT 02/18/2025 6:46 PM EDT documented in this encounter Results * (ABNORMAL) CBC (03/05/2025 5:00 AM EDT) Auto WBC 7.45 4.00 - 10.60 10*3/uL 03/05/2025 5:48 AM EDT [facility]) RBC 2.69(L) 4.20 - 5.70 10*6/uL 03/05/2025 5:48 AM EDT [facility]) Hemoglobin 8.1(L) 13.0 - 17.0 g/dL 03/05/2025 5:48 AM EDT [facility] ([facility]) Hematocrit 24.2(L) 39.0 - 50.0 % 03/05/2025 5:48 AM EDT [facility] ([facility]) MCV 90.0 82.0 - 98.0 fL 03/05/2025 5:48 AM EDT [facility] ([facility]) MCH 30.1 27.0 - 33.0 pg 03/05/2025 5:48 AM EDT [facility] ([facility]) MCHC 33.5 32.0 - 35.0 g/dL 03/05/2025 5:48 AM EDT [facility] ([facility]) RDW 16.3(H) 11.5 - 15.0 % 03/05/2025 5:48 AM EDT [facility] ([facility]) Platelets 399 150 - 400 10*3/uL 03/05/2025 5:48 AM EDT [facility] ([facility]) Blood Venous blood specimen / Unknown Venipuncture / Unknown 03/05/2025 5:00 AM EDT 03/05/2025 5:36 AM EDT us Ruth Kramer MD LAB BLOOD ORDERABLES Final Resul t [facility]) [address] [place] [address] * Phosphorus (03/05/2025 5:00 AM EDT) Phosphorus 3.0 2.5 - 5.0 mg/dL 03/05/2025 6:02 AM EDT [facility] ([facility]) Blood Venous blood specimen / Unknown Venipuncture / Unknown 03/05/2025 5:00 AM EDT 03/05/2025 5:35 AM EDT us Ruth Kramer MD LAB BLOOD ORDERABLES Final Resul t [facility]) [address] [place] [address] * Magnesium (03/05/2025 5:00 AM EDT) Magnesium 1.9 1.9 - 2.7 mg/dL 03/05/2025 6:02 AM EDT [facility] ([facility]) Blood Venous blood specimen / Unknown Venipuncture / Unknown 03/05/2025 5:00 AM EDT 03/05/2025 5:35 AM EDT us Ruth Kramer MD LAB BLOOD ORDERABLES Final Resul t [facility]) [address] [place] [address] * (ABNORMAL) Comprehensive metabolic panel (03/05/2025 5:00 AM EDT) Sodium 132(L) 136 - 145 mmol/L 03/05/2025 6:02 AM EDT [facility] ([facility]) Potassium 3.9 3.5 - 5.1 mmol/L 03/05/2025 6:02 AM EDT [facility] ([facility]) Chloride 103 98 - 107 mmol/L 03/05/2025 6:02 AM EDT [facility] ([facility]) CO2 24 21 - 31 mmol/L 03/05/2025 6:02 AM EDT [facility] ([facility]) Anion Gap 9 7 - 20 mmol/L 03/05/2025 6:02 AM EDT [facility] ([facility]) BUN 13 7 - 25 mg/dL 03/05/2025 6:02 AM EDT [facility] ([facility]) Creatinine 0.73 0.70 - 1.30 mg/dL 03/05/2025 6:02 AM EDT [facility] ([facility]) BUN/Creatinine Ratio 17.8 10/2024 6:02 AM EDT [facility] ([facility]) Glucose 85 70 - 100 mg/dL 03/05/2025 6:02 AM EDT [facility] ([facility]) Calcium 8.1(L) 8.6 - 10.3 mg/dL 03/05/2025 6:02 AM EDT [facility] ([facility]) AST 16 13 - 39 U/L 03/05/2025 6:02 AM EDT [facility] ([facility]) ALT (SGPT) 15 7 - 52 U/L 03/05/2025 6:02 AM EDT [facility] ([facility]) Alkaline Phosphatase 60 34 - 104 U/L 03/05/2025 6:02 AM EDT [facility] ([facility]) Total Protein 5.2(L) 6.0 - 8.3 g/dL 03/05/2025 6:02 AM EDT [facility] ([facility]) Albumin 3.0(L) 3.5 - 5.7 g/dL 03/05/2025 6:02 AM EDT [facility] ([facility]) Total Bilirubin 3.8(H) 0.3 - 1.0 mg/dL 03/05/2025 6:02 AM EDT [facility] ([facility]) eGFR 105.5 >60.0 mL/min/1. 73m*2 03/05/2025 6:02 AM EDT [facility] ([facility]) Comment:The [facility] s estimated glomerular filtration rate (eGFR) will no longer include consideration of race in its calculation. The [employer] s eGFR Task Force developed new recommendations for the estimation of the glomerular filtration rate in the [place] They recommend immediate implementation of the new equation refit without the race variable in all laboratories because the calculation does not include race. In addition to not including race in the calculation and reporting, it included diversity in its development, and has acceptable performance characteristics and potential consequences that do not disproportionately affect any one group of individuals. Blood Venous blood specimen / Unknown Venipuncture / Unknown 03/05/2025 5:00 AM EDT 03/05/2025 5:35 AM EDT us Ruth Kramer MD LAB BLOOD ORDERABLES Final Resul t [facility] ([facility]) [address] [place] [address] * CTA Heart Coronary W IV Contrast W or WO FFRct (03/04/2025 3:29 PM EDT) Anatomical Region Laterality Modality Heart Computed Tomogra phy 03/09/2025 9:35 AM EDT Impressions 03/09/2025 9:59 AM EDT 1. Abnormal coronary CTA with . Mild stenosis in the proximal RCA and LAD. Limited evaluation of the distal left circumflex with mild stenosis in the proximal segment. 2. Abnormal global and regional wall motion and function of the LV. Decreased ejection fraction at 45% which is slightly exaggerated due to technical artifacts and more likely is between 35 and 40% visually. 3. Left cardiac enlargement involving the atrium and ventricle and small pericardial effusion. 4. Small left pleural effusion and adjacent left basal compressive atelectasis and subsegmental atelectasis. Suture line at the epigastric region from prior gastric surgery. DISH. Calcium scoring of 135 mainly in the distal left main and proximal LAD. Electronically signed: Reji Dick MD. Narrative 03/09/2025 9:59 AM EDT CTA HEART CORONARY W IV CONTRAST W OR WO FFRCT 03/04/2025 3:08 PM CLINICAL INDICATIONS: Low ejection fraction by recent echo. Evaluation of coronary artery for possible stenosis. TECHNOLOGIST COMMENTS: Low ejection fraction by echo. QUESTION FOR RADIOLOGIST: Evaluate possible coronary artery stenosis. PROTOCOL: Gated cardiac CTA, none contrast calcium scoring. CONTRAST: 100 mL Omnipaque 350 TECHNIQUE: Multidetector CT angiogram was obtained using retrospective ECG gating. Imaging was performed from the level of the clavicles to the level of the hemidiaphragms. In order to provide better evaluation of the anatomy and disease process, advanced off-line 3-D post-processing techniques, including 3-D volume rendered images of the heart, curvilinear analysis of the coronary arteries, stenosis calculation and ejection fraction evaluation were performed. Medication administered in preparation for the examination is located in nursing documentation. All CT scans at this facility use dose modulation, iterative reconstruction, and/or weight based dosing when appropriate to reduce radiation dose to as low as reasonably achievable COMPARISON: Chest CTA from 02/22/2025 CORONARY ARTERY ANGIOGRAM FINDINGS: Stenoses are reported as maximum percentage diameter stenosis. Stenosis grading is reported using the following scheme: Normal: no stenosis Mild: 1-49% stenosis Moderate: 50-70% stenosis Severe: >70% stenosis Occluded Dominance of the coronary artery system: right with normal origins and course. Left Main: The left main is a normal caliber vessel which gives rise to the LAD and circumflex arteries The left main with distal small calcified plaque. No significant stenosis is appreciated Left Anterior Descending Artery: The proximal left anterior descending artery and first diagonal branch with small calcified plaque in the proximal aspect. The mid-distal LAD, D2 and D3 branches with small calcified plaque at the mid LAD. There is a no evidence of myocardial bridge in the LAD segment. There is mild stenosis less than 35% in the proximal LAD and mid LAD. Left Circumflex Artery: The left circumflex artery and its obtuse marginal branches with no significant plaque. Mild stenosis less than 30% in the proximal left circumflex. The distal segment is not adequately visualized due to motion artifact and therefore, suboptimally evaluated. Right Coronary Artery: The right coronary artery and acute marginal branches with minimal plaque. There is minimal stenosis less than 25% in the proximal RCA. Cardiac Morphology: The right atrium is normal. The right ventricle is normal. The left atrium is dilated. The left ventricle is dilated. The pericardium is thickened with small pericardial effusion seen . Cardiac Function: {reported only if retrospective ECG gating has been used} The calculated left ventricular ejection fraction is 45%, the left ventricular end-diastolic volume is 340 mL, and the left ventricular end-systolic volume is 188 mL. Stroke volume is 152 mL. There is global diminished contractility of the left ventricle. The ejection fraction is slightly exaggerated due to including part of the left atrium in the calculation and more likely close to 35-40%. Cardiac Devices and Indwelling Central Venous Lines: No pacer devices or central lines are seen. EXTRACARDIAC FINDINGS: Other lung findings: There is suggestion of atelectatic changes in the lung bases more prominent on the left side Airway: Normal. Pleura: Small left pleural effusion is suggested. No evidence of pneumothorax. Thoracic aorta and great vessels: Normal in diameter. Pulmonary arteries: Normal. Heart and pericardium: Mild cardiomegaly and small pericardial effusion. Lymph nodes: No enlarged thoracic lymph nodes. Thoracic spine: Significant bony spurring in the thoracic spine suggesting spondylosis with anterior fusion suggesting diffuse idiopathic skeletal hyperostosis.. Chest wall: Unremarkable visualized part of the chest wall Visualized upper abdomen: Suture line at the epigastric region from prior gastric surgery. Otherwise, unremarkable. Gated noncontrast calcium scoring revealed small calcified plaques in the LAD and in the distal left main coronary artery with total calcium scoring of 135 in both vessels. Scoring in the left circumflex is 0 and RCA is 0. Therefore, intermediate possibility of significant coronary artery stenosis. Procedure Note Reji Dick MD - 03/09/2025 CTA HEART CORONARY W IV CONTRAST W OR WO FFRCT 03/04/2025 3:08 PM CLINICAL INDICATIONS: Low ejection fraction by recent echo. Evaluationof coronary artery for possible stenosis. TECHNOLOGIST COMMENTS: Low ejection fraction by echo. QUESTION FOR RADIOLOGIST: Evaluate possible coronary artery stenosis. PROTOCOL: Gated cardiac CTA, none contrast calcium scoring. CONTRAST: 100 mL Omnipaque 350 TECHNIQUE: Multidetector CT angiogram was obtained using retrospectiveECG gating. Imaging was performed from the level of the clavicles to the levelof the hemidiaphragms. In order to provide better evaluation of the anatomyand disease process, advanced off-line 3-D post-processing techniques,including 3-D volume rendered images of the heart, curvilinear analysis of thecoronary arteries, stenosis calculation and ejection fraction evaluation wereperformed. Medication administered in preparation for the examination is located innursing documentation. All CT scans at this facility use dose modulation, iterativereconstruction, and/or weight based dosing when appropriate to reduce radiation dose to aslow as reasonably achievable COMPARISON: Chest CTA from 02/22/2025 CORONARY ARTERY ANGIOGRAM FINDINGS: Stenoses are reported as maximum percentage diameter stenosis. Stenosis grading is reported using the following scheme: Normal: no stenosis Mild: 1-49% stenosis Moderate: 50-70% stenosis Severe: >70% stenosis Occluded Dominance of the coronary artery system: right with normal origins andcourse. Left Main: The left main is a normal caliber vessel which gives rise to the LAD and circumflex arteries The left main with distal small calcified plaque. No significant stenosis is appreciated Left Anterior Descending Artery: The proximal left anterior descending artery and first diagonal branchwith small calcified plaque in the proximal aspect. The mid-distal LAD, D2 andD3 branches with small calcified plaque at the mid LAD. There is a noevidence of myocardial bridge in the LAD segment. There is mild stenosis less than 35%in the proximal LAD and mid LAD. Left Circumflex Artery: The left circumflex artery and its obtuse marginal branches with nosignificant plaque. Mild stenosis less than 30% in the proximal left circumflex. Thedistal segment is not adequately visualized due to motion artifact andtherefore, suboptimally evaluated. Right Coronary Artery: The right coronary artery and acute marginal branches with minimal plaque.There is minimal stenosis less than 25% in the proximal RCA. Cardiac Morphology: The right atrium is normal. The right ventricle is normal. The left atriumis dilated. The left ventricle is dilated. The pericardium is thickened withsmall pericardial effusion seen . Cardiac Function: {reported only if retrospective ECG gating has beenused} The calculated left ventricular ejection fraction is 45%, the leftventricular end-diastolic volume is 340 mL, and the left ventricular end-systolicvolume is 188 mL. Stroke volume is 152 mL. There is global diminished contractilityof the left ventricle. The ejection fraction is slightly exaggerated due toincluding part of the left atrium in the calculation and more likely close to35-40%. Cardiac Devices and Indwelling Central Venous Lines: No pacer devices orcentral lines are seen. EXTRACARDIAC FINDINGS: Other lung findings: There is suggestion of atelectatic changes in thelung bases more prominent on the left side Airway: Normal. Pleura: Small left pleural effusion is suggested. No evidence ofpneumothorax. Thoracic aorta and great vessels: Normal in diameter. Pulmonary arteries: Normal. Heart and pericardium: Mild cardiomegaly and small pericardial effusion. Lymph nodes: No enlarged thoracic lymph nodes. Thoracic spine: Significant bony spurring in the thoracic spinesuggesting spondylosis with anterior fusion suggesting diffuse idiopathic skeletal hyperostosis.. Chest wall: Unremarkable visualized part of the chest wall Visualized upper abdomen: Suture line at the epigastric region fromprior gastric surgery. Otherwise, unremarkable. Gated noncontrast calcium scoring revealed small calcified plaques in theLAD and in the distal left main coronary artery with total calcium scoring of135 in both vessels. Scoring in the left circumflex is 0 and RCA is 0.Therefore, intermediate possibility of significant coronary artery stenosis. IMPRESSION: 1. Abnormal coronary CTA with . Mild stenosis in the proximal RCA andLAD. Limited evaluation of the distal left circumflex with mild stenosis inthe proximal segment. 2. Abnormal global and regional wall motion and function of the LV.Decreased ejection fraction at 45% which is slightly exaggerated due to technical artifacts and more likely is between 35 and 40% visually. 3. Left cardiac enlargement involving the atrium and ventricle and small pericardial effusion. 4. Small left pleural effusion and adjacent left basal compressiveatelectasis and subsegmental atelectasis. Suture line at the epigastric region fromprior gastric surgery. DISH. Calcium scoring of 135 mainly in the distal leftmain and proximal LAD. Electronically signed: Reji Dick MD. us Ruth Kramer MD IMG CT PROCEDURES Final Result * Lavender Top (03/04/2025 4:48 AM EDT) Extra Tube Hold for add-ons. 03/04/2025 7:01 AM EDT [facility] ([facility]) Comment:Auto resulted. Blood Venous blood specimen / Unknown Venipuncture / Unknown 03/04/2025 4:48 AM EDT 03/04/2025 5:13 AM EDT us Ruth Kramer MD LAB BLOOD ORDERABLES Final Resul t Performing Organization Address [facility] Co de Phone Number [facility]) [address] [place] [phone] * Light Green Top (03/04/2025 4:48 AM EDT) Extra Tube Hold for add-ons. 03/04/2025 7:01 AM EDT [facility] ([facility]) Comment:Auto resulted. Blood Venous blood specimen / Unknown Venipuncture / Unknown 03/04/2025 4:48 AM EDT 03/04/2025 5:13 AM EDT us Ruth Kramer MD LAB BLOOD ORDERABLES Final Resul t Performing Organization Address City/[facility]/ZIP Co de Phone Number [facility] ([facility]) [address] [place] [address] * Anti-Xa (Heparin Level) (03/04/2025 4:41 AM EDT) Anti-Xa (Heparin) 0.34 0.3 - 0.7 IU/mL 03/04/2025 5:57 AM EDT [facility] ([facility]) Comment:Rivaroxaban and Apix aban will interfere with the anti Xa assay used to monitor UFH and LMWH. Blood Venous blood specimen / Unknown Venipuncture / Unknown 03/04/2025 4:41 AM EDT 03/04/2025 5:11 AM EDT us Ruth Kramer MD LAB BLOOD ORDERABLES Final Resul t [facility] ([facility]) [address] [place] [address] * ECG 12 lead (03/04/2025 4:06 AM EDT) Ventricular Rate 78 BPM GE MUSE Atrial Rate 78 BPM GE MUSE KS Interval 206 ms GE MUSE QRS DURATION 182 ms GE MUSE QT Interval 432 ms GE MUSE QTC CALCULATION(BAZE TT) 492 ms GE MUSE P Moselle 53 degrees GE MUSE R-Moselle -31 degrees GE MUSE T Wave Moselle 134 degrees GE MUSE 03/04/2025 12:4 3 AM EDT 03/04/2025 5:11 PM EDT Impressions GE MUSE - 03/04/2025 5:11 PM EDT Sinus rhythm with Premature supraventricular complexes Left axis deviation Left bundle branch block Abnormal ECG When compared with ECG of 03-MAR-2025 10:07, Premature supraventricular complexes are now Present Confirmed by Prabhu Chavez ([id number]) on 03/04/2025 5:11:38 PM Narrative Procedure Note Prabhu Chavez MD - 03/04/2025 IMPRESSION: Sinus rhythm with Premature supraventricular complexes Left axis deviation Left bundle branch block Abnormal ECG When compared with ECG of 03-MAR-2025 10:07, Premature supraventricular complexes are now Present Confirmed by Prabhu Chavez ([id number]) on 03/04/2025 5:11:38 PM us Carol Carter CNP ECG ORDERABLES Final Result GE MUSE * (ABNORMAL) CBC (03/04/2025 1:08 AM EDT) Auto WBC 5.41 4.00 - 10.60 10*3/uL 03/04/2025 1:29 AM EDT [facility] ([facility]) RBC 2.52(L) 4.20 - 5.70 10*6/uL 03/04/2025 1:29 AM EDT [facility] ([facility]) Hemoglobin 7.7(L) 13.0 - 17.0 g/dL 03/04/2025 1:29 AM EDT [facility] ([facility]) Hematocrit 22.6(L) 39.0 - 50.0 % 03/04/2025 1:29 AM EDT [facility] ([facility]) MCV 89.7 82.0 - 98.0 fL 03/04/2025 1:29 AM EDT [facility] ([facility]) MCH 30.6 27.0 - 33.0 pg 03/04/2025 1:29 AM EDT [facility] ([facility]) MCHC 34.1 32.0 - 35.0 g/dL 03/04/2025 1:29 AM EDT [facility] ([facility]) RDW 16.3(H) 11.5 - 15.0 % 03/04/2025 1:29 AM EDT [facility] ([facility]) Platelets 359 150 - 400 10*3/uL 03/04/2025 1:29 AM EDT [facility] ([facility]) Blood Venous blood specimen / Unknown Venipuncture / Unknown 03/04/2025 1:08 AM EDT 03/04/2025 1:21 AM EDT us Ruth Kramer MD LAB BLOOD ORDERABLES Final Resul t [facility] ([facility]) [address] [place] [address] * Phosphorus (03/04/2025 1:08 AM EDT) Phosphorus 2.7 2.5 - 5.0 mg/dL 03/04/2025 1:44 AM EDT [facility] ([facility]) Blood Venous blood specimen / Unknown Venipuncture / Unknown 03/04/2025 1:08 AM EDT 03/04/2025 1:21 AM EDT us Ruth Kramer MD LAB BLOOD ORDERABLES Final Resul t [facility]) [address] [place] [address] * Magnesium (03/04/2025 1:08 AM EDT) Magnesium 2.0 1.9 - 2.7 mg/dL 03/04/2025 1:44 AM EDT [facility] ([facility]) Blood Venous blood specimen / Unknown Venipuncture / Unknown 03/04/2025 1:08 AM EDT 03/04/2025 1:21 AM EDT us Ruth Kramer MD LAB BLOOD ORDERABLES Final Resul t Performing Organization Address [facility] Co de Phone Number [facility]) [address] [place] [phone] * (ABNORMAL) Comprehensive metabolic panel (03/04/2025 1:08 AM EDT) Sodium 132(L) 136 - 145 mmol/L 03/04/2025 1:44 AM EDT [facility] ([facility]) Potassium 3.8 3.5 - 5.1 mmol/L 03/04/2025 1:44 AM EDT [facility] ([facility]) Chloride 103 98 - 107 mmol/L 03/04/2025 1:44 AM EDT [facility] ([facility]) CO2 25 21 - 31 mmol/L 03/04/2025 1:44 AM EDT [facility] ([facility]) Anion Gap 8 7 - 20 mmol/L 03/04/2025 1:44 AM EDT [facility] ([facility]) BUN 15 7 - 25 mg/dL 03/04/2025 1:44 AM EDT [facility] ([facility]) Creatinine 0.66(L) 0.70 - 1.30 mg/dL 03/04/2025 1:44 AM EDT [facility] ([facility]) BUN/Creatinine Ratio 22.7 09/2024 1:44 AM T [facility] ([facility]) Glucose 86 70 - 100 mg/dL 03/04/2025 1:44 AM T [facility] ([facility]) Calcium 7.7(L) 8.6 - 10.3 mg/dL 03/04/2025 1:44 AM T [facility] ([facility]) AST 17 13 - 39 U/L 03/04/2025 1:44 AM T [facility] ([facility]) ALT (SGPT) 17 7 - 52 U/L 03/04/2025 1:44 AM T [facility] ([facility]) Alkaline Phosphatase 55 34 - 104 U/L 03/04/2025 1:44 AM T [facility] ([facility]) Total Protein 4.9(L) 6.0 - 8.3 g/dL 03/04/2025 1:44 AM T [facility] ([facility]) Albumin 2.8(L) 3.5 - 5.7 g/dL 03/04/2025 1:44 AM T [facility] ([facility]) Total Bilirubin 3.7(H) 0.3 - 1.0 mg/dL 03/04/2025 1:44 AM T [facility] ([facility]) eGFR 108.7 >60.0 mL/min/1. 73m*2 03/04/2025 1:[address] [facility] ([facility]) Comment:The [facility] s estimated glomerular filtration rate (eGFR) will no longer include consideration of race in its calculation. The [employer] s eGFR Task Force developed new recommendations for the estimation of the glomerular filtration rate in the [place] They recommend immediate implementation of the new equation refit without the race variable in all laboratories because the calculation does not include race. In addition to not including race in the calculation and reporting, it included diversity in its development, and has acceptable performance characteristics and potential consequences that do not disproportionately affect any one group of individuals. Blood Venous blood specimen / Unknown Venipuncture / Unknown 03/04/2025 1:08 AM EDT 03/04/2025 1:21 AM EDT us Ruth Kramer MD LAB BLOOD ORDERABLES Final Resul t [facility] ([facility]) [address] [place] [address] * Anti-Xa (Heparin Level) (03/04/2025 1:08 AM EDT) Anti-Xa (Heparin) 0.30 0.3 - 0.7 IU/mL 03/04/2025 1:42 AM EDT [facility] ([facility]) Comment:Rivaroxaban and Apix aban will interfere with the anti Xa assay used to monitor UFH and LMWH. Blood Venous blood specimen / Unknown Venipuncture / Unknown 03/04/2025 1:08 AM EDT 03/04/2025 1:16 AM EDT us Ruth Kramer MD LAB BLOOD ORDERABLES Final Resul t Performing Organization Address [facility] Co de Phone Number [facility] ([facility]) [address] [place] [phone] * (ABNORMAL) Anti-Xa (Heparin Level) (03/03/2025 7:54 PM EDT) Anti-Xa (Heparin) 0.23(L) 0.3 - 0.7 IU/mL 03/03/2025 8:20 PM EDT [facility] ([facility]) Comment:Rivaroxaban and Apix aban will interfere with the anti Xa assay used to monitor UFH and LMWH. Blood Venous blood specimen / Unknown Venipuncture / Unknown 03/03/2025 7:54 PM EDT 03/03/2025 7:57 PM EDT us Ruth Kramer MD LAB BLOOD ORDERABLES Final Resul t [facility] ([facility]) [address] [place] [address] * Platelet count (03/03/2025 12:54 PM EDT) Platelets 358 150 - 400 10*3/uL 03/03/2025 1:18 PM EDT [facility] ([facility]) Blood Venous blood specimen / Unknown Venipuncture / Unknown 03/03/2025 12:54 PM EDT 03/03/2025 1:01 PM EDT Ruth Kramer MD LAB BLOOD ORDERABLES Final Resul t Performing Organization Address [facility] Co de Phone Number [facility]) [address] [place] [address] * (ABNORMAL) aPTT - baseline (03/03/2025 12:54 PM EDT) aPTT 41.8(H) 25.0 - 35.0 Seconds 03/03/2025 1:33 PM EDT [facility]) Comment:Clinical significanc e of the APTT is questionable in the presence of heparin. Blood Venous blood specimen / Unknown Venipuncture / Unknown 03/03/2025 12:54 PM EDT 03/03/2025 12:58 PM EDT us Ruth Kramer MD LAB BLOOD ORDERABLES Final Resul t Performing Organization Address [facility] de Phone Number [facility]) [address] [place] [phone] * ECG 12 lead (03/03/2025 10:36 AM EDT) Ventricular Rate 79 BPM GE MUSE Atrial Rate 79 BPM GE MUSE KS Interval 182 ms GE MUSE QRS DURATION 182 ms GE MUSE QT Interval 428 ms GE MUSE QTC CALCULATION(BAZE TT) 490 ms GE MUSE P Moselle 65 degrees GE MUSE R-Moselle -35 degrees GE MUSE T Wave Moselle 123 degrees GE MUSE 03/03/2025 10:0 7 AM EDT 03/03/2025 11:48 AM EDT Impressions GE MUSE - 03/03/2025 11:48 AM EDT Normal sinus rhythm with sinus arrhythmia Left axis deviation Left bundle branch block Abnormal ECG When compared with ECG of 03-MAR-2025 09:21, Sinus rhythm has replaced Atrial fibrillation Confirmed by Rosalia MOULTON SAMER J. ([id number]) on 03/03/2025 11:48:40 AM Narrative Procedure Note Hugo Moulton MD - 03/03/2025 IMPRESSION: Normal sinus rhythm with sinus arrhythmia Left axis deviation Left bundle branch block Abnormal ECG When compared with ECG of 03-MAR-2025 09:21, Sinus rhythm has replaced Atrial fibrillation Confirmed by Rosalia MOULTON SAMER J. ([id number]) on 03/03/2025 11:48:40 AM us Hugo Moulton MD ECG ORDERABLES Final Result Us[facility] * TRANSESOPHAGEAL ECHO (BERNARDINO) W/ LIMITED DOPPLER AND COLOR FLOW (03/03/2025 10:09 AM EDT) Anatomical Region Laterality Modality Other 03/03/2025 9:24 AM EDT Narrative 03/03/2025 3:46 PM EDT [facility] Heart Station [address] [place] [address] [phone] (fax) Transesophageal Echocardiogram-[facility] Name: LINDSAY PINTO Study Date: 03/03/2025 09:24 AM B/P: 108 mmHg/71 mmHg HR: 84 bpm Date of : 1965 Location: [facility] Height: 68 in. Age: 59 year(s) Patient Room: 3174 Weight: 244 lb. Gender: Male Patient Status: InPt BSA: 2.22 m2 Indication: Atrial Fibrillation Examination: BERNARDINO/Limited Doppler/CFI, Agitated Saline Image Quality: Fair Patient Consent: Informed, written consent was obtained for the procedure Exam Details Contrast: I.V. dose of agitated saline Exam Location: A BERNARDINO was performed in the Change Analyst without complications Anesthesia Pharyngeal anesthesia with viscous Lidocaine Conclusions Left Ventricle: The left ventricle is normal size. Global left ventricular systolic function is severely reduced. The EF is 20 % visually. Left ventricular wall thickness is normal. Diffuse global hypokinesis. Right Ventricle: The right ventricle appears normal in size. Right ventricular systolic function appears normal. Left Atrium: The left atrium appears enlarged. Left Atrium Appendage: Normal left atrial appendage, no thrombus seen. Pericardium: There is a minimal pericardial effusion with fibrinous content/thrombus close to transverse sinus Overall Conclusions: Biphasic cardioversion was performed at 360 J, the patient was converted to sinus rhythm Medications Date Time Name Route Form Dose Units Ordered By Given By Comment 03/03/2025 10:12 AM Midazolam HCL (Versed) 6 milligrams 03/03/2025 10:12 AM Fentanyl (Opiates) 75 micrograms Measurements Left Ventricle Label Value Normal Value LVEF visual 20 % Valvular Assessment LVOT 0.7 - 1.1 m/sec Aortic Valve 1.0 - 1.7 m/sec Mitral Valve 0.6 - 1.3 m/sec Tricuspid Valve 0.3 - 0.7 m/sec Pulmonic Valve 0.6 - 0.9 m/sec Regurgitation No trivMil No No Findings Left Ventricle: The left ventricle is normal size. Global left ventricular systolic function is severely reduced. The EF is 20 % visually. Left ventricular wall thickness is normal. Diffuse global hypokinesis. Right Ventricle: The right ventricle appears normal in size. Right ventricular systolic function appears normal. Left Atrium: The left atrium appears enlarged. Left Atrium Appendage: The left atrial appendage is normal. The left atrial appendage is monolobular. Normal left atrial appendage, no thrombus seen. IAS: No intracardiac shunt by agitated saline injections. Right Atrium: The right atrium is normal in size. Mitral Valve: The mitral valve is normal in mobility and thickness. Trvial to mild mitral regurgitation. Aortic Valve: The aortic valve is normal. No aortic valve regurgitation. The aortic valve is trileaflet. Tricuspid Valve: Normal tricuspid valve. No tricuspid regurgitation. Pulmonic Valve: Normal pulmonary valve. No pulmonary regurgitation. Aorta: Minimal atherosclerotic plaque is seen in the aorta. Pericardium: There is a minimal pericardial effusion with fibrinous content/thrombus close to transverse sinus Procedure Staff Reading Group: [facility] Referring Physician: JALEN LINDER Mission Planner: ZUHAIR Caban, RDCS Ordering Physician: JOSE MENESES Procedure Note Hugo Moulton MD - 03/03/2025 1 [facility] Heart Station [address] [place] [address] [phone] (fax) Transesophageal Echocardiogram-[facility] Name: LINDSAY PINTO Study Date: 03/03/2025 09:24 AM B/P: 108 mmHg/71 mmHg HR: 84 bpm Date of : 1965 Location: [facility] Height: 68 in. Age: 59 year(s) Patient Room: 3174 Weight: 244 lb. Gender: Male Patient Status: InPt BSA: 2.22 m2 Indication: Atrial Fibrillation Examination: BERNARDINO/Limited Doppler/CFI, Agitated Saline Image Quality: Fair Patient Consent: Informed, written consent was obtained for the procedure Exam Details Contrast: I.V. dose of agitated saline Exam Location: A BERNARDINO was performed in the Change Analyst without complications Anesthesia Pharyngeal anesthesia with viscous Lidocaine Conclusions Left Ventricle: The left ventricle is normal size. Global left ventricular systolic function is severely reduced. The EF is 20 % visually. Left ventricular wall thickness is normal. Diffuse global hypokinesis. Right Ventricle: The right ventricle appears normal in size. Right ventricular systolic function appears normal. Left Atrium: The left atrium appears enlarged. Left Atrium Appendage: Normal left atrial appendage, no thrombus seen. Pericardium: There is a minimal pericardial effusion with fibrinous content/thrombus close to transverse sinus Overall Conclusions: Biphasic cardioversion was performed at 360 J, the patient was converted to sinus rhythm Medications Date Time Name Route Form Dose Units Ordered By Given By Comment 03/03/2025 10:12 AM Midazolam HCL (Versed) 6 milligrams 03/03/2025 10:12 AM Fentanyl (Opiates) 75 micrograms Measurements Left Ventricle Label Value Normal Value LVEF visual 20 % Valvular Assessment LVOT 0.7 - 1.1 m/sec Aortic Valve 1.0 - 1.7 m/sec Mitral Valve 0.6 - 1.3 m/sec Tricuspid Valve 0.3 - 0.7 m/sec Pulmonic Valve 0.6 - 0.9 m/sec Regurgitation No trivMil No No Findings Left Ventricle: The left ventricle is normal size. Global left ventricular systolic function is severely reduced. The EF is 20 % visually. Left ventricular wall thickness is normal. Diffuse global hypokinesis. Right Ventricle: The right ventricle appears normal in size. Right ventricular systolic function appears normal. Left Atrium: The left atrium appears enlarged. Left Atrium Appendage: The left atrial appendage is normal. The left atrial appendage is monolobular. Normal left atrial appendage, no thrombus seen. IAS: No intracardiac shunt by agitated saline injections. Right Atrium: The right atrium is normal in size. Mitral Valve: The mitral valve is normal in mobility and thickness. Trvial to mild mitral regurgitation. Aortic Valve: The aortic valve is normal. No aortic valve regurgitation. The aortic valve is trileaflet. Tricuspid Valve: Normal tricuspid valve. No tricuspid regurgitation. Pulmonic Valve: Normal pulmonary valve. No pulmonary regurgitation. Aorta: Minimal atherosclerotic plaque is seen in the aorta. Pericardium: There is a minimal pericardial effusion with fibrinous content/thrombus close to transverse sinus Procedure Staff Reading Group: [facility] Referring Physician: JALEN LINDER Mission Planner: ZUHAIR Caban, RDCS Ordering Physician: JOSE MENESES us Jose Meneses MD CV ECHO PROCEDURES Final Result * CARDIOVERSION (03/03/2025 10:01 AM EDT) Anatomical Region Laterality Modality Other Impressions 03/03/2025 3:24 PM EDT Successful DC cardioversion. Narrative 03/03/2025 3:24 PM EDT COMPLICATIONS: None. OPERATIVE TERM: DC cardioversion. An informed consent was obtained from the patient after explaining the indication, risk and benefits, and alternatives. The patient understood, agreed, and signed the consent form. The patient was brought to the microbiological lab technician and transesophageal echocardiogram was performed under conscious sedation. OPERATIVE TECHNIQUE: The transesophageal echocardiogram did not show any thrombus in the left atrial appendage. Full BERNARDINO reported elsewhere. After the transesophageal echocardiogram, a synchronized biphasic cardioversion was done with 360 joules of energy. The patient successfully converted to the sinus rhythm as evidence by the EKG done postprocedure. His hemodynamics remained stable during the procedure. us Jose Meneses MD CV ELECTROPHYSIOLOGY PROCEDURES Final Result * ECG 12 lead (03/03/2025 9:26 AM EDT) [facility] Ventricular Rate 90 BPM GE MUSE QRS DURATION 186 ms GE MUSE QT Interval 418 ms GE MUSE QTC CALCULATION(BAZE TT) 511 ms GE MUSE R-Moselle -22 degrees GE MUSE T Wave Moselle 130 degrees GE MUSE 03/03/2025 9:21 AM EDT 03/03/2025 9:33 AM EDT Impressions GE MUSE - 03/03/2025 9:33 AM EDT Atrial fibrillation Left bundle branch block Abnormal ECG Confirmed by Rosalia MOULTON SAMER J. ([id number]) on 03/03/2025 9:33:26 AM Narrative Procedure Note Hugo Moulton MD - 03/03/2025 IMPRESSION: Atrial fibrillation Left bundle branch block Abnormal ECG Confirmed by Rosalia MOULTON SAMER J. ([id number]) on 03/03/2025 9:33:26 AM us Ruth Kramer MD ECG ORDERABLES Final Result GE MUSE * (ABNORMAL) CBC (03/03/2025 3:46 AM EDT) [facility] Auto WBC 5.84 4.00 - 10.60 10*3/uL 03/03/2025 4:15 AM EDT [facility] ([facility]) RBC 2.69(L) 4.20 - 5.70 10*6/uL 03/03/2025 4:15 AM EDT [facility] ([facility]) Hemoglobin 8.2(L) 13.0 - 17.0 g/dL 03/03/2025 4:15 AM EDT [facility] ([facility]) Hematocrit 24.1(L) 39.0 - 50.0 % 03/03/2025 4:15 AM EDT [facility] ([facility]) MCV 89.6 82.0 - 98.0 fL 03/03/2025 4:15 AM EDT [facility] ([facility]) MCH 30.5 27.0 - 33.0 pg 03/03/2025 4:15 AM EDT [facility] ([facility]) MCHC 34.0 32.0 - 35.0 g/dL 03/03/2025 4:15 AM EDT [facility] ([facility]) RDW 16.4(H) 11.5 - 15.0 % 03/03/2025 4:15 AM EDT [facility] ([facility]) Platelets 370 150 - 400 10*3/uL 03/03/2025 4:15 AM EDT [facility] ([facility]) Blood Venous blood specimen / Unknown Venipuncture / Unknown 03/03/2025 3:46 AM EDT 03/03/2025 3:57 AM EDT us Ruth Kramer MD LAB BLOOD ORDERABLES Final Resul t Performing Organization Address City/[facility]/ZIP Co de Phone Number [facility]) [address] [place] [address] * Phosphorus (03/03/2025 3:46 AM EDT) Phosphorus 2.9 2.5 - 5.0 mg/dL 03/03/2025 4:25 AM EDT [facility]) Blood Venous blood specimen / Unknown Venipuncture / Unknown 03/03/2025 3:46 AM EDT 03/03/2025 3:57 AM EDT us Ruth Kramer MD LAB BLOOD ORDERABLES Final Resul t [facility]) [address] [place] [address] * Magnesium (03/03/2025 3:46 AM EDT) Magnesium 2.0 1.9 - 2.7 mg/dL 03/03/2025 4:25 AM EDT [facility]) Blood Venous blood specimen / Unknown Venipuncture / Unknown 03/03/2025 3:46 AM EDT 03/03/2025 3:57 AM EDT us Ruth Kramer MD LAB BLOOD ORDERABLES Final Resul t [facility] ([facility]) [address] [place] [address] * (ABNORMAL) Comprehensive metabolic panel (03/03/2025 3:46 AM EDT) Sodium 132(L) 136 - 145 mmol/L 03/03/2025 4:25 AM EDT [facility] ([facility]) Potassium 4.0 3.5 - 5.1 mmol/L 03/03/2025 4:25 AM EDT [facility] ([facility]) Chloride 102 98 - 107 mmol/L 03/03/2025 4:25 AM EDT [facility] ([facility]) CO2 25 21 - 31 mmol/L 03/03/2025 4:25 AM EDT [facility] ([facility]) Anion Gap 9 7 - 20 mmol/L 03/03/2025 4:25 AM EDT [facility] ([facility]) BUN 12 7 - 25 mg/dL 03/03/2025 4:25 AM EDT [facility] ([facility]) Creatinine 0.69(L) 0.70 - 1.30 mg/dL 03/03/2025 4:25 AM EDT [facility] ([facility]) BUN/Creatinine Ratio 17.4 08/2024 4:25 AM EDT [facility] ([facility]) Glucose 88 70 - 100 mg/dL 03/03/2025 4:25 AM EDT [facility] ([facility]) Calcium 7.8(L) 8.6 - 10.3 mg/dL 03/03/2025 4:25 AM EDT [facility] ([facility]) AST 23 13 - 39 U/L 03/03/2025 4:25 AM EDT [facility] ([facility]) ALT (SGPT) 18 7 - 52 U/L 03/03/2025 4:25 AM EDT [facility] ([facility]) Alkaline Phosphatase 55 34 - 104 U/L 03/03/2025 4:25 AM EDT [facility] ([facility]) Total Protein 5.1(L) 6.0 - 8.3 g/dL 03/03/2025 4:25 AM EDT [facility] ([facility]) Albumin 2.9(L) 3.5 - 5.7 g/dL 03/03/2025 4:25 AM EDT [facility] ([facility]) Total Bilirubin 4.0(H) 0.3 - 1.0 mg/dL 03/03/2025 4:25 AM EDT [facility] ([facility]) eGFR 107.3 >60.0 mL/min/1. 73m*2 03/03/2025 4:25 AM EDT [facility] ([facility]) Comment:The [facility] s estimated glomerular filtration rate (eGFR) will no longer include consideration of race in its calculation. The [employer] s eGFR Task Force developed new recommendations for the estimation of the glomerular filtration rate in the [place] They recommend immediate implementation of the new equation refit without the race variable in all laboratories because the calculation does not include race. In addition to not including race in the calculation and reporting, it included diversity in its development, and has acceptable performance characteristics and potential consequences that do not disproportionately affect any one group of individuals. Blood Venous blood specimen / Unknown Venipuncture / Unknown 03/03/2025 3:46 AM EDT 03/03/2025 3:57 AM EDT us Ruth Kramer MD LAB BLOOD ORDERABLES Final Resul t [facility] ([facility]) [address] [place] [address] * Anti-Xa (Heparin Level) (03/03/2025 3:46 AM EDT) Anti-Xa (Heparin) 0.31 0.3 - 0.7 IU/mL 03/03/2025 4:18 AM EDT [facility] ([facility]) Comment:Rivaroxaban and Apix aban will interfere with the anti Xa assay used to monitor UFH and LMWH. Blood Venous blood specimen / Unknown Venipuncture / Unknown 03/03/2025 3:46 AM EDT 03/03/2025 3:50 AM EDT us Ruth Kramer MD LAB BLOOD ORDERABLES Final Resul t Performing Organization Address City/[facility]/ZIP Co de Phone Number [facility]) [address] [place] [address] * (ABNORMAL) Digoxin level (03/03/2025 3:46 AM EDT) Digoxin Lvl 0.6(L) 0.7 - 2 ng/mL 03/03/2025 4:25 AM EDT [facility] ([facility]) Blood Venous blood specimen / Unknown Venipuncture / Unknown 03/03/2025 3:46 AM EDT 03/03/2025 3:57 AM EDT us Ruth Kramer MD LAB BLOOD ORDERABLES Final Resul t Performing Organization Address [facility] Co de Phone Number [facility]) [address] [place] [phone] * (ABNORMAL) Anti-Xa (Heparin Level) (03/02/2025 9:21 PM EDT) Anti-Xa (Heparin) 0.18(L) 0.3 - 0.7 IU/mL 03/02/2025 10:01 PM EDT [facility] ([facility]) Comment:Rivaroxaban and Apix aban will interfere with the anti Xa assay used to monitor UFH and LMWH. Blood Venous blood specimen / Unknown Venipuncture / Unknown 03/02/2025 9:21 PM EDT 03/02/2025 9:36 PM EDT us Ruth Kramer MD LAB BLOOD ORDERABLES Final Resul t Performing Organization Address City/[facility] Co de Phone Number [facility] ([facility]) [address] [place] [address] * (ABNORMAL) Urinalysis (03/02/2025 2:48 PM EDT) Color, Urine Yellow Colorless, Yellow, Light-Yellow 03/02/2025 3:00 PM EDT [facility] Clarity, Urine Clear Clear 03/02/2025 3:00 PM EDT [facility] ([facility]) pH, Urine 6.5 5.0 - 8.0 pH 03/02/2025 3:00 PM EDT [facility] ([facility]) Leukocytes, Urine Negative Negative 03/02/2025 3:00 PM EDT [facility] ([facility]) Nitrite, Urine Negative Negative 03/02/2025 3:00 PM EDT [facility] ([facility]) Protein, Urine Negative Negative mg/dL 03/02/2025 3:00 PM EDT [facility] ([facility]) Glucose, Urine Normal Normal mg/dL 03/02/20 25 3:00 PM EDT [facility] ([facility]) Bilirubin, Urine Negative Negative 03/02/2025 3:00 PM EDT [facility] ([facility]) Specific [place], Urine 1.016 1.010 - 1.030 03/02/2025 3:00 PM EDT [facility] ([facility]) Ketones, Urine Negative Negative mg/dL 03/02/2025 3:00 PM EDT [facility] ([facility]) Blood, Urine Negative Negative 03/02/2025 3:00 PM T [facility] ([facility]) Urobilinogen, Urine >=8.0(A) Normal mg/dL 03/02/2025 3:00 PM EDT [facility] ([facility]) Urine Urine specimen obtained by clean catch procedure / Unknown Non-blood Collection / Unknown 03/02/2025 2:48 PM EDT 03/02/2025 2:52 PM EDT Narrative [facility] ([facility]) - 03/02/2025 3:00 PM EDT Microscopics not performed on urines with negative chemical reactions unless requested on original order. us Rtuh Kramer MD LAB URINE ORDERABLES Final Resul t Performing Organization Address City/[facility]/ZIP Co de Phone Number [facility] ([facility]) [address] [place], [place] [id number] * (ABNORMAL) aPTT - baseline (03/02/2025 2:09 PM EDT) aPTT 39.7(H) 25.0 - 35.0 Seconds 03/02/2025 3:51 PM EDT [facility] ([facility]) Comment:Clinical significanc e of the APTT is questionable in the presence of heparin. Blood Venous blood specimen / Unknown Venipuncture / Unknown 03/02/2025 2:09 PM EDT 03/02/2025 3:25 PM EDT us Ruth Kramer MD LAB BLOOD ORDERABLES Final Resul t Performing Organization Address [facility] Co de Phone Number [facility] ([facility]) [address] [facility] [place] [address] * LIMITED ECHO (TTE) W/ LIMITED DOPPLER, COLOR FLOW AND IMAGING AGENT (03/02/2025 12:33 PM EDT) Anatomical Region Laterality Modality Other 03/02/2025 12:0 2 PM EDT Narrative 03/02/2025 3:32 PM EDT 1 [facility] Heart Station [address] [place] [address] [phone] (fax) Echocardiogram-[facility] Name: LINDSAY PINTO Study Date: 03/02/2025 12:02 PM B/P: 111 mmHg/69 mmHg HR: 84 bpm Date of : 1965 Location: [facility] Height: 68 in. Age: 59 year(s) Patient Room: 1784 Weight: 247 lb. Gender: Male Patient Status: InPt BSA: 2.24 m2 Indication: Congestive Heart Failure, Atrial Fibrillation Examination: Limited Echo/Limited Doppler, Color flow imaging, Lumason Contrast Image Quality: Fair Patient Consent: Procedure explained to patient Exam Details Contrast: I.V. dose of Lumason Conclusions Left Ventricle: The left ventricle is moderately enlarged. Global left ventricular systolic function is severely reduced. The calculated Biplane EF is 24 %. The EF is 15 % visually. Left ventricular wall thickness is at upper normal limits. Diffuse global hypokinesis. Unable to assess diastolic dysfunction. The changes are consistent with eccentric hypertrophy. Right Ventricle: The right ventricle is at upper normal limits in size. Right ventricular systolic function appears reduced. Doppler studies suggest normal right sided pressures. Left Atrium: The left atrium is severely enlarged. Overall Conclusions: Due to suboptimal imaging Lumason contrast was administered for opacification and better delineation of endocardial borders. Rhythm is atrial fibrillation. Measurements Left Ventricle Label Value Normal Value LVOT VTI 11.3 cm (18cm - 22cm) LVOT PGmax 2 mmHg LVEF visual 15 % LVDd, 2D 6.5 cm (4.2cm - 5.9cm) LVDs, 2D 6.24 cm (2.1cm - 4cm) IVSd, 2D 1 cm (0.6cm - 1.1cm) LVPWd, 2D 0.95 cm (0.6cm - 1cm) LVEF, BP 24 % (55% - 65%) LV Mass, 2D ASE 274.1 g LV Mass Index, 2D ASE 122.4 g/m?? (50g/m?? - 102.4g/m??) RWT, MM 0.29 (0 - 0.42) LVSVI, 2D 19.6 ml/m2 LVOT PGmean 1 mmHg Right Ventricle Label Value Normal Value RVDd, 2D 4.27 cm (1.9cm - 3.8cm) Left Atrium Label Value Normal Value LA Volume, BP 142 ml (18ml - 58ml) LAESV index, BP 63.4 ml/m?? Right Atrium Label Value Normal Value RA Area 21.1 cm?? Tricuspid Valve Label Value Normal Value RA Pressure 3 mmHg RVSP 24 mmHg TR Vmax 2.31 m/s Aorta Label Value Normal Value AoRoot, 2D 3.7 cm (1.4cm - 3.8cm) Valvular Assessment LVOT 0.7 - 1.1 m/sec Aortic Valve 1.0 - 1.7 m/sec Mitral Valve 0.6 - 1.3 m/sec Tricuspid Valve 0.3 - 0.7 m/sec Pulmonic Valve 0.6 - 0.9 m/sec Regurgitation No trivMil Trivial No Stenosis No No No No Max Velocity 0.70 m/sec Findings Left Ventricle: The left ventricle is moderately enlarged. Global left ventricular systolic function is severely reduced. The calculated Biplane EF is 24 %. The EF is 15 % visually. Left ventricular wall thickness is at upper normal limits. Diffuse global hypokinesis. Unable to assess diastolic dysfunction. The changes are consistent with eccentric hypertrophy. Right Ventricle: The right ventricle is at upper normal limits in size. Right ventricular systolic function appears reduced. Doppler studies suggest normal right sided pressures. Left Atrium: The left atrium is severely enlarged. Right Atrium: The right atrium is severely enlarged. Mitral Valve: There is nonspecific thickening of the mitral valve leaflet. Trvial to mild mitral regurgitation. No mitral valve stenosis. Aortic Valve: The aortic valve is normal. No aortic valve regurgitation. No aortic valve stenosis. Tricuspid Valve: Normal tricuspid valve. Trivial tricuspid regurgitation. No tricuspid valve stenosis. Pulmonic Valve: Normal pulmonary valve. No pulmonary regurgitation. No pulmonic valve stenosis. Aorta: The aortic root exhibits dilatation. Great Vessels: IVC: The IVC is not visualized. Pericardium: There is a minimal pericardial effusion. Procedure Staff Reading Group: [facility] Referring Physician: JALEN LINDER Mission Planner: ZUHAIR Caban, RDCS Ordering Physician: RUTH KRAMER Procedure Note Hugo Moulton MD - 03/02/2025 1 1 [facility] Heart Station [address] [place] [address] [phone] (fax) Echocardiogram-[facility] Name: LINDSAY PINTO Study Date: 03/02/2025 12:02 PM B/P: 111 mmHg/69 mmHg HR: 84 bpm Date of : 1965 Location: [facility] Height: 68 in. Age: 59 year(s) Patient Room: [facility]4 Weight: 247 lb. Gender: Male Patient Status: InPt BSA: 2.24 m2 Indication: Congestive Heart Failure, Atrial Fibrillation Examination: Limited Echo/Limited Doppler, Color flow imaging, Lumason Contrast Image Quality: Fair Patient Consent: Procedure explained to patient Exam Details Contrast: I.V. dose of Lumason Conclusions Left Ventricle: The left ventricle is moderately enlarged. Global left ventricular systolic function is severely reduced. The calculated Biplane EF is 24 %. The EF is 15 % visually. Left ventricular wall thickness is at upper normal limits. Diffuse global hypokinesis. Unable to assess diastolic dysfunction. The changes are consistent with eccentric hypertrophy. Right Ventricle: The right ventricle is at upper normal limits in size. Right ventricular systolic function appears reduced. Doppler studies suggest normal right sided pressures. Left Atrium: The left atrium is severely enlarged. Overall Conclusions: Due to suboptimal imaging Lumason contrast was administered for opacification and better delineation of endocardial borders. Rhythm is atrial fibrillation. Measurements Left Ventricle Label Value Normal Value LVOT VTI 11.3 cm (18cm - 22cm) LVOT PGmax 2 mmHg LVEF visual 15 % LVDd, 2D 6.5 cm (4.2cm - 5.9cm) LVDs, 2D 6.24 cm (2.1cm - 4cm) IVSd, 2D 1 cm (0.6cm - 1.1cm) LVPWd, 2D 0.95 cm (0.6cm - 1cm) LVEF, BP 24 % (55% - 65%) LV Mass, 2D ASE 274.1 g LV Mass Index, 2D ASE 122.4 g/m?? (50g/m?? - 102.4g/m??) RWT, MM 0.29 (0 - 0.42) LVSVI, 2D 19.6 ml/m2 LVOT PGmean 1 mmHg Right Ventricle Label Value Normal Value RVDd, 2D 4.27 cm (1.9cm - 3.8cm) Left Atrium Label Value Normal Value LA Volume, BP 142 ml (18ml - 58ml) LAESV index, BP 63.4 ml/m?? Right Atrium Label Value Normal Value RA Area 21.1 cm?? Tricuspid Valve Label Value Normal Value RA Pressure 3 mmHg RVSP 24 mmHg TR Vmax 2.31 m/s Aorta Label Value Normal Value AoRoot, 2D 3.7 cm (1.4cm - 3.8cm) Valvular Assessment LVOT 0.7 - 1.1 m/sec Aortic Valve 1.0 - 1.7 m/sec Mitral Valve 0.6 - 1.3 m/sec Tricuspid Valve 0.3 - 0.7 m/sec Pulmonic Valve 0.6 - 0.9 m/sec Regurgitation No trivMil Trivial No Stenosis No No No No Max Velocity 0.70 m/sec Findings Left Ventricle: The left ventricle is moderately enlarged. Global left ventricular systolic function is severely reduced. The calculated Biplane EF is 24 %. The EF is 15 % visually. Left ventricular wall thickness is at upper normal limits. Diffuse global hypokinesis. Unable to assess diastolic dysfunction. The changes are consistent with eccentric hypertrophy. Right Ventricle: The right ventricle is at upper normal limits in size. Right ventricular systolic function appears reduced. Doppler studies suggest normal right sided pressures. Left Atrium: The left atrium is severely enlarged. Right Atrium: The right atrium is severely enlarged. Mitral Valve: There is nonspecific thickening of the mitral valve leaflet. Trvial to mild mitral regurgitation. No mitral valve stenosis. Aortic Valve: The aortic valve is normal. No aortic valve regurgitation. No aortic valve stenosis. Tricuspid Valve: Normal tricuspid valve. Trivial tricuspid regurgitation. No tricuspid valve stenosis. Pulmonic Valve: Normal pulmonary valve. No pulmonary regurgitation. No pulmonic valve stenosis. Aorta: The aortic root exhibits dilatation. Great Vessels: IVC: The IVC is not visualized. Pericardium: There is a minimal pericardial effusion. Procedure Staff Reading Group: [facility] Referring Physician: JALEN LINDER Mission Planner: ZUHAIR Caban, RDCS Ordering Physician: RUTH KRAMER Ruth Kramer MD CV ECHO PROCEDURES Final Result * Platelet count (03/02/2025 4:26 AM EDT) Platelets 366 150 - 400 10*3/uL 03/02/2025 1:54 PM EDT [facility] ([facility]) Blood Venous blood specimen / Unknown 03/02/2025 4:26 AM EDT 03/02/2025 5:04 AM EDT Ruth Kramer MD LAB BLOOD ORDERABLES Final Resul t [facility] ([facility]) [address] [place] [address] * Lavender Top (03/02/2025 4:26 AM EDT) Extra Tube Hold for add-ons. 03/02/2025 7:01 AM EDT [facility] ([facility]) Comment:Auto resulted. Blood Venous blood specimen / Unknown 03/02/2025 4:26 AM EDT 03/02/2025 5:04 AM EDT us Ruth Kramer MD LAB BLOOD ORDERABLES Final Resul t [facility]) [address] [place] [address] * Phosphorus (03/02/2025 4:26 AM EDT) Phosphorus 2.5 2.5 - 5.0 mg/dL 03/02/2025 5:34 AM EDT [facility] ([facility]) Blood Venous blood specimen / Unknown Venipuncture / Unknown 03/02/2025 4:26 AM EDT 03/02/2025 5:04 AM EDT us Ruth Kramer MD LAB BLOOD ORDERABLES Final Resul t Performing Organization Address City/[facility]/ZIP Co de Phone Number [facility]) [address] [place] [address] * Magnesium (03/02/2025 4:26 AM EDT) Magnesium 2.0 1.9 - 2.7 mg/dL 03/02/2025 5:34 AM EDT [facility]) Blood Venous blood specimen / Unknown Venipuncture / Unknown 03/02/2025 4:26 AM EDT 03/02/2025 5:04 AM EDT us Ruth Kramer MD LAB BLOOD ORDERABLES Final Resul t [facility] ([facility]) [address] [place] [address] * (ABNORMAL) Comprehensive metabolic panel (03/02/2025 4:26 AM EDT) Sodium 131(L) 136 - 145 mmol/L 03/02/2025 5:34 AM EDT [facility] ([facility]) Potassium 4.0 3.5 - 5.1 mmol/L 03/02/2025 5:34 AM EDT [facility] ([facility]) Chloride 103 98 - 107 mmol/L 03/02/2025 5:34 AM EDT [facility] ([facility]) CO2 25 21 - 31 mmol/L 03/02/2025 5:34 AM EDT [facility] ([facility]) Anion Gap 7 7 - 20 mmol/L 03/02/2025 5:34 AM EDT [facility] ([facility]) BUN 13 7 - 25 mg/dL 03/02/2025 5:34 AM EDT [facility] ([facility]) Creatinine 0.68(L) 0.70 - 1.30 mg/dL 03/02/2025 5:34 AM EDT [facility] ([facility]) BUN/Creatinine Ratio 19.1 08/2024 5:34 AM EDT [facility] ([facility]) Glucose 91 70 - 100 mg/dL 03/02/2025 5:34 AM EDT [facility] ([facility]) Calcium 8.1(L) 8.6 - 10.3 mg/dL 03/02/2025 5:34 AM EDT [facility] ([facility]) AST 21 13 - 39 U/L 03/02/2025 5:34 AM EDT [facility] ([facility]) ALT (SGPT) 20 7 - 52 U/L 03/02/2025 5:34 AM EDT [facility] ([facility]) Alkaline Phosphatase 59 34 - 104 U/L 03/02/2025 5:34 AM EDT [facility] ([facility]) Total Protein 5.3(L) 6.0 - 8.3 g/dL 03/02/2025 5:34 AM EDT [facility] ([facility]) Albumin 3.0(L) 3.5 - 5.7 g/dL 03/02/2025 5:34 AM EDT [facility] ([facility]) Total Bilirubin 4.3(H) 0.3 - 1.0 mg/dL 03/02/2025 5:34 AM EDT [facility] ([facility]) eGFR 107.7 >60.0 mL/min/1. 73m*2 03/02/2025 5:34 AM EDT [facility] ([facility]) Comment:The [facility] s estimated glomerular filtration rate (eGFR) will no longer include consideration of race in its calculation. The [employer] s eGFR Task Force developed new recommendations for the estimation of the glomerular filtration rate in the [place] They recommend immediate implementation of the new equation refit without the race variable in all laboratories because the calculation does not include race. In addition to not including race in the calculation and reporting, it included diversity in its development, and has acceptable performance characteristics and potential consequences that do not disproportionately affect any one group of individuals. Blood Venous blood specimen / Unknown Venipuncture / Unknown 03/02/2025 4:26 AM EDT 03/02/2025 5:04 AM EDT Ruth Kramer MD LAB BLOOD ORDERABLES Final Resul t Performing Organization Address City/[facility]/ZIP Co de Phone Number [facility]) [address] [place] [address] * (ABNORMAL) Digoxin level (03/01/2025 5:12 AM EDT) Digoxin Lvl <0.3(L) 0.7 - 2 ng/mL 03/01/2025 12:41 PM EDT [facility] ([facility]) Blood Venous blood specimen / Unknown Venipuncture / Unknown 03/01/2025 5:12 AM EDT 03/01/2025 5:27 AM EDT Ruth Kramer MD LAB BLOOD ORDERABLES Final Resul t [facility] ([facility]) [address] [place] [phone] * Lavender Top (03/01/2025 5:12 AM EDT) Extra Tube Hold for add-ons. 03/01/2025 7:01 AM EDT [facility] ([facility]) Comment:Auto resulted. Blood Venous blood specimen / Unknown 03/01/2025 5:12 AM EDT 03/01/2025 5:17 AM EDT us Ruth Kramer MD LAB BLOOD ORDERABLES Final Resul t [facility]) [address] [place] [phone] * (ABNORMAL) Phosphorus (03/01/2025 5:12 AM EDT) Phosphorus 2.4(L) 2.5 - 5.0 mg/dL 03/01/2025 6:03 AM EDT [facility] ([facility]) Blood Venous blood specimen / Unknown Venipuncture / Unknown 03/01/2025 5:12 AM EDT 03/01/2025 5:27 AM EDT us Ruth Kramer MD LAB BLOOD ORDERABLES Final Resul t [facility]) [address] [place] [id number] * Magnesium (03/01/2025 5:12 AM EDT) Magnesium 2.0 1.9 - 2.7 mg/dL 03/01/2025 6:03 AM EDT [facility]) Blood Venous blood specimen / Unknown Venipuncture / Unknown 03/01/2025 5:12 AM EDT 03/01/2025 5:27 AM EDT us Ruth Kramer MD LAB BLOOD ORDERABLES Final Resul t [facility] ([facility]) [address] [place] [address] * (ABNORMAL) Comprehensive metabolic panel (03/01/2025 5:12 AM EDT) Sodium 130(L) 136 - 145 mmol/L 03/01/2025 6:03 AM EDT [facility] ([facility]) Potassium 3.9 3.5 - 5.1 mmol/L 03/01/2025 6:03 AM EDT [facility] ([facility]) Chloride 103 98 - 107 mmol/L 03/01/2025 6:03 AM EDT [facility] ([facility]) CO2 22 21 - 31 mmol/L 03/01/2025 6:03 AM EDT [facility] ([facility]) Anion Gap 9 7 - 20 mmol/L 03/01/2025 6:03 AM EDT [facility] ([facility]) BUN 14 7 - 25 mg/dL 03/01/2025 6:03 AM EDT [facility] ([facility]) Creatinine 0.67(L) 0.70 - 1.30 mg/dL 03/01/2025 6:03 AM EDT [facility] ([facility]) BUN/Creatinine Ratio 20.9 07/2024 6:03 AM EDT [facility] ([facility]) Glucose 94 70 - 100 mg/dL 03/01/2025 6:03 AM EDT [facility] ([facility]) Calcium 7.7(L) 8.6 - 10.3 mg/dL 03/01/2025 6:03 AM EDT [facility] ([facility]) AST 17 13 - 39 U/L 03/01/2025 6:03 AM EDT [facility] ([facility]) ALT (SGPT) 17 7 - 52 U/L 03/01/2025 6:03 AM EDT [facility] ([facility]) Alkaline Phosphatase 58 34 - 104 U/L 03/01/2025 6:03 AM EDT [facility] ([facility]) Total Protein 5.1(L) 6.0 - 8.3 g/dL 03/01/2025 6:03 AM EDT [facility] ([facility]) Albumin 2.9(L) 3.5 - 5.7 g/dL 03/01/2025 6:03 AM EDT [facility] ([facility]) Total Bilirubin 3.6(H) 0.3 - 1.0 mg/dL 03/01/2025 6:03 AM EDT [facility] ([facility]) eGFR 108.2 >60.0 mL/min/1. 73m*2 03/01/2025 6:03 AM EDT [facility] ([facility]) Comment:The [facility] s estimated glomerular filtration rate (eGFR) will no longer include consideration of race in its calculation. The [employer] s eGFR Task Force developed new recommendations for the estimation of the glomerular filtration rate in the [place] They recommend immediate implementation of the new equation refit without the race variable in all laboratories because the calculation does not include race. In addition to not including race in the calculation and reporting, it included diversity in its development, and has acceptable performance characteristics and potential consequences that do not disproportionately affect any one group of individuals. Blood Venous blood specimen / Unknown Venipuncture / Unknown 03/01/2025 5:12 AM EDT 03/01/2025 5:27 AM EDT Ruth Kramer MD LAB BLOOD ORDERABLES Final Resul t [facility] ([facility]) [address] [place] [address] * (ABNORMAL) Phosphorus (02/28/2025 3:42 AM EDT) Phosphorus 2.0(L) 2.5 - 5.0 mg/dL 02/28/2025 4:44 AM EDT [facility] ([facility]) Blood Venous blood specimen / Unknown Venipuncture / Unknown 02/28/2025 3:42 AM EDT 02/28/2025 4:19 AM EDT Ruth Kramer MD LAB BLOOD ORDERABLES Final Resul t [facility] ([facility]) [address] [place], [place] [id number] * Magnesium (02/28/2025 3:42 AM EDT) Magnesium 2.0 1.9 - 2.7 mg/dL 02/28/2025 4:44 AM EDT [facility] ([facility]) Blood Venous blood specimen / Unknown Venipuncture / Unknown 02/28/2025 3:42 AM EDT 02/28/2025 4:19 AM EDT us Ruth Kramer MD LAB BLOOD ORDERABLES Final Resul t [facility] ([facility]) [address] [place], [place] [id number] * (ABNORMAL) Comprehensive metabolic panel (02/28/2025 3:42 AM EDT) Pathologist [facility] Sodium 131(L) 136 - 145 mmol/L 02/28/2025 4:44 AM EDT [facility] ([facility]) Potassium 4.0 3.5 - 5.1 mmol/L 02/28/2025 4:44 AM EDT [facility] ([facility]) Chloride 102 98 - 107 mmol/L 02/28/2025 4:44 AM EDT [facility] ([facility]) CO2 23 21 - 31 mmol/L 02/28/2025 4:44 AM EDT [facility] ([facility]) Anion Gap 10 7 - 20 mmol/L 02/28/2025 4:44 AM EDT [facility] ([facility]) BUN 16 7 - 25 mg/dL 02/28/2025 4:44 AM EDT [facility] ([facility]) Creatinine 0.75 0.70 - 1.30 mg/dL 02/28/2025 4:44 AM EDT [facility] ([facility]) BUN/Creatinine Ratio 21.3 01/31 4:44 AM EDT [facility] ([facility]) Glucose 98 70 - 100 mg/dL 02/28/2025 4:44 AM EDT [facility] ([facility]) Calcium 7.9(L) 8.6 - 10.3 mg/dL 02/28/2025 4:44 AM EDT [facility] ([facility]) AST 14 13 - 39 U/L 02/28/2025 4:44 AM EDT [facility] ([facility]) ALT (SGPT) 20 7 - 52 U/L 02/28/2025 4:44 AM EDT [facility] ([facility]) Alkaline Phosphatase 60 34 - 104 U/L 02/28/2025 4:44 AM EDT [facility] ([facility]) Total Protein 5.1(L) 6.0 - 8.3 g/dL 02/28/2025 4:44 AM EDT [facility] ([facility]) Albumin 3.0(L) 3.5 - 5.7 g/dL 02/28/2025 4:44 AM EDT [facility] ([facility]) Total Bilirubin 3.8(H) 0.3 - 1.0 mg/dL 02/28/2025 4:44 AM EDT [facility] ([facility]) eGFR 104.6 >60.0 mL/min/1. 73m*2 02/28/2025 4:44 AM EDT [facility] ([facility]) Comment:The [facility] s estimated glomerular filtration rate (eGFR) will no longer include consideration of race in its calculation. The [employer] s eGFR Task Force developed new recommendations for the estimation of the glomerular filtration rate in the [place] They recommend immediate implementation of the new equation refit without the race variable in all laboratories because the calculation does not include race. In addition to not including race in the calculation and reporting, it included diversity in its development, and has acceptable performance characteristics and potential consequences that do not disproportionately affect any one group of individuals. Blood Venous blood specimen / Unknown Venipuncture / Unknown 02/28/2025 3:42 AM EDT 02/28/2025 4:19 AM EDT us Ruth Kramer MD LAB BLOOD ORDERABLES Final Resul t [facility] ([facility]) [address] [place] [address] * (ABNORMAL) CBC (02/28/2025 3:42 AM EDT) Auto WBC 8.84 4.00 - 10.60 10*3/uL 02/28/2025 4:42 AM EDT [facility] ([facility]) RBC 2.70(L) 4.20 - 5.70 10*6/uL 02/28/2025 4:42 AM EDT [facility] ([facility]) Hemoglobin 8.3(L) 13.0 - 17.0 g/dL 02/28/2025 4:42 AM EDT [facility] ([facility]) Hematocrit 24.3(L) 39.0 - 50.0 % 02/28/2025 4:42 AM EDT [facility] ([facility]) MCV 90.0 82.0 - 98.0 fL 02/28/2025 4:42 AM EDT [facility] ([facility]) MCH 30.7 27.0 - 33.0 pg 02/28/2025 4:42 AM EDT [facility] ([facility]) MCHC 34.2 32.0 - 35.0 g/dL 02/28/2025 4:42 AM EDT [facility] ([facility]) RDW 17.2(H) 11.5 - 15.0 % 02/28/2025 4:42 AM EDT [facility] ([facility]) Platelets 255 150 - 400 10*3/uL 02/28/2025 4:42 AM EDT [facility] ([facility]) Blood Venous blood specimen / Unknown Venipuncture / Unknown 02/28/2025 3:42 AM EDT 02/28/2025 4:20 AM EDT us Ruth Kramer MD LAB BLOOD ORDERABLES Final Resul t [facility] ([facility]) [address] [place] [address] * (ABNORMAL) CBC (02/27/2025 11:38 PM EDT) Auto WBC 9.07 4.00 - 10.60 10*3/uL 02/28/2025 12:46 AM EDT [facility] ([facility]) RBC 2.84(L) 4.20 - 5.70 10*6/uL 02/28/2025 12:46 AM EDT [facility] ([facility]) Hemoglobin 8.9(L) 13.0 - 17.0 g/dL 02/28/2025 12:46 AM EDT [facility] ([facility]) Hematocrit 25.1(L) 39.0 - 50.0 % 02/28/2025 12:46 AM EDT [facility] ([facility]) MCV 88.4 82.0 - 98.0 fL 02/28/2025 12:46 AM EDT [facility] ([facility]) MCH 31.3 27.0 - 33.0 pg 02/28/2025 12:46 AM EDT [facility] ([facility]) MCHC 35.5(H) 32.0 - 35.0 g/dL 02/28/2025 12:46 AM EDT [facility] ([facility]) RDW 17.2(H) 11.5 - 15.0 % 02/28/2025 12:46 AM EDT [facility] ([facility]) Platelets 261 150 - 400 10*3/uL 02/28/2025 12:46 AM EDT [facility] ([facility]) Blood Venous blood specimen / Unknown Venipuncture / Unknown 02/27/2025 11:38 PM EDT 02/28/2025 12:35 AM EDT us Ruth Kramer MD LAB BLOOD ORDERABLES Final Resul t [facility]) [address] [place] [address] * (ABNORMAL) CBC (02/27/2025 6:49 PM EDT) Auto WBC 10.96(H) 4.00 - 10.60 10*3/uL 02/27/2025 7:24 PM EDT [facility] ([facility]) RBC 3.12(L) 4.20 - 5.70 10*6/uL 02/27/2025 7:24 PM EDT [facility] ([facility]) Hemoglobin 9.6(L) 13.0 - 17.0 g/dL 02/27/2025 7:24 PM EDT [facility] ([facility]) Hematocrit 27.4(L) 39.0 - 50.0 % 02/27/2025 7:24 PM EDT [facility] ([facility]) MCV 87.8 82.0 - 98.0 fL 02/27/2025 7:24 PM EDT [facility] ([facility]) MCH 30.8 27.0 - 33.0 pg 02/27/2025 7:24 PM EDT [facility] ([facility]) MCHC 35.0 32.0 - 35.0 g/dL 02/27/2025 7:24 PM EDT [facility] ([facility]) RDW 17.2(H) 11.5 - 15.0 % 02/27/2025 7:24 PM EDT [facility] ([facility]) Platelets 284 150 - 400 10*3/uL 02/27/2025 7:24 PM EDT [facility] ([facility]) Blood Venous blood specimen / Unknown Venipuncture / Unknown 02/27/2025 6:49 PM EDT 02/27/2025 7:18 PM EDT us Ruth Kramer MD LAB BLOOD ORDERABLES Final Resul t [facility]) [address] [place] [address] * (ABNORMAL) CBC (02/27/2025 12:13 PM EDT) Auto WBC 8.02 4.00 - 10.60 10*3/uL 02/27/2025 12:33 PM EDT [facility] ([facility]) RBC 2.75(L) 4.20 - 5.70 10*6/uL 02/27/2025 12:33 PM EDT [facility] ([facility]) Hemoglobin 8.5(L) 13.0 - 17.0 g/dL 02/27/2025 12:33 PM EDT [facility] ([facility]) Hematocrit 24.7(L) 39.0 - 50.0 % 02/27/2025 12:33 PM EDT [facility] ([facility]) MCV 89.8 82.0 - 98.0 fL 02/27/2025 12:33 PM EDT [facility] ([facility]) MCH 30.9 27.0 - 33.0 pg 02/27/2025 12:33 PM EDT [facility] ([facility]) MCHC 34.4 32.0 - 35.0 g/dL 02/27/2025 12:33 PM EDT [facility] ([facility]) RDW 17.3(H) 11.5 - 15.0 % 02/27/2025 12:33 PM EDT [facility] ([facility]) Platelets 233 150 - 400 10*3/uL 02/27/2025 12:33 PM EDT [facility] ([facility]) Blood Arterial blood specimen / Unknown Existing Catheter / Unknown 02/27/2025 12:13 PM EDT 02/27/2025 12:20 PM EDT us Ruth Kramer MD LAB BLOOD ORDERABLES Final Resul t [facility]) [address] [place] [address] * (ABNORMAL) Phosphorus (02/27/2025 5:58 AM EDT) Phosphorus 2.0(L) 2.5 - 5.0 mg/dL 02/27/2025 6:43 AM EDT [facility] ([facility]) Blood Venous blood specimen / Unknown Existing Catheter / Unknown 02/27/2025 5:58 AM EDT 02/27/2025 6:15 AM EDT us Ruth Kramer MD LAB BLOOD ORDERABLES Final Resul t [facility]) [address] [place] [address] * Magnesium (02/27/2025 5:58 AM EDT) Magnesium 2.1 1.9 - 2.7 mg/dL 02/27/2025 6:43 AM EDT [facility] ([facility]) Blood Venous blood specimen / Unknown Existing Catheter / Unknown 02/27/2025 5:58 AM EDT 02/27/2025 6:15 AM EDT us Ruth Kramer MD LAB BLOOD ORDERABLES Final Resul t [facility] ([facility]) [address] [place] [address] * (ABNORMAL) Comprehensive metabolic panel (02/27/2025 5:58 AM EDT) Sodium 131(L) 136 - 145 mmol/L 02/27/2025 6:43 AM EDT [facility] ([facility]) Potassium 4.1 3.5 - 5.1 mmol/L 02/27/2025 6:43 AM EDT [facility] ([facility]) Chloride 102 98 - 107 mmol/L 02/27/2025 6:43 AM EDT [facility] ([facility]) CO2 25 21 - 31 mmol/L 02/27/2025 6:43 AM EDT [facility] ([facility]) Anion Gap 8 7 - 20 mmol/L 02/27/2025 6:43 AM EDT [facility] ([facility]) BUN 17 7 - 25 mg/dL 02/27/2025 6:43 AM EDT [facility] ([facility]) Creatinine 0.64(L) 0.70 - 1.30 mg/dL 02/27/2025 6:43 AM EDT [facility] ([facility]) BUN/Creatinine Ratio 26.6 01/31 6:43 AM EDT [facility] ([facility]) Glucose 100 70 - 100 mg/dL 02/27/2025 6:43 AM EDT [facility] ([facility]) Calcium 7.8(L) 8.6 - 10.3 mg/dL 02/27/2025 6:43 AM EDT [facility] ([facility]) AST 16 13 - 39 U/L 02/27/2025 6:43 AM EDT [facility] ([facility]) ALT (SGPT) 21 7 - 52 U/L 02/27/2025 6:43 AM EDT [facility] ([facility]) Alkaline Phosphatase 54 34 - 104 U/L 02/27/2025 6:43 AM EDT [facility] ([facility]) Total Protein 4.9(L) 6.0 - 8.3 g/dL 02/27/2025 6:43 AM EDT [facility] ([facility]) Albumin 2.9(L) 3.5 - 5.7 g/dL 02/27/2025 6:43 AM EDT [facility] ([facility]) Total Bilirubin 3.4(H) 0.3 - 1.0 mg/dL 02/27/2025 6:43 AM EDT [facility] ([facility]) eGFR 109.7 >60.0 mL/min/1. 73m*2 02/27/2025 6:43 AM EDT [facility] ([facility]) Comment:The [facility] s estimated glomerular filtration rate (eGFR) will no longer include consideration of race in its calculation. The [employer] s eGFR Task Force developed new recommendations for the estimation of the glomerular filtration rate in the [place] They recommend immediate implementation of the new equation refit without the race variable in all laboratories because the calculation does not include race. In addition to not including race in the calculation and reporting, it included diversity in its development, and has acceptable performance characteristics and potential consequences that do not disproportionately affect any one group of individuals. Blood Venous blood specimen / Unknown Existing Catheter / Unknown 02/27/2025 5:58 AM EDT 02/27/2025 6:15 AM EDT us Ruth Kramer MD LAB BLOOD ORDERABLES Final Resul t [facility] ([facility]) [address] [place] [address] * (ABNORMAL) CBC (02/27/2025 5:58 AM EDT) Auto WBC 8.06 4.00 - 10.60 10*3/uL 02/27/2025 6:29 AM EDT [facility] ([facility]) RBC 2.67(L) 4.20 - 5.70 10*6/uL 02/27/2025 6:29 AM EDT [facility] ([facility]) Hemoglobin 8.2(L) 13.0 - 17.0 g/dL 02/27/2025 6:29 AM EDT [facility] ([facility]) Hematocrit 23.8(L) 39.0 - 50.0 % 02/27/2025 6:29 AM EDT [facility] ([facility]) MCV 89.1 82.0 - 98.0 fL 02/27/2025 6:29 AM EDT [facility] ([facility]) MCH 30.7 27.0 - 33.0 pg 02/27/2025 6:29 AM EDT [facility] ([facility]) MCHC 34.5 32.0 - 35.0 g/dL 02/27/2025 6:29 AM EDT [facility] ([facility]) RDW 17.5(H) 11.5 - 15.0 % 02/27/2025 6:29 AM EDT [facility] ([facility]) Platelets 159 150 - 400 10*3/uL 02/27/2025 6:29 AM EDT [facility] ([facility]) Blood Venous blood specimen / Unknown Existing Catheter / Unknown 02/27/2025 5:58 AM EDT 02/27/2025 6:15 AM EDT us Ruth Kramer MD LAB BLOOD ORDERABLES Final Resul t [facility] ([facility]) [address] [place] [address] * (ABNORMAL) CBC (02/26/2025 11:21 PM EDT) Auto WBC 8.18 4.00 - 10.60 10*3/uL 02/26/2025 11:48 PM EDT [facility] ([facility]) RBC 2.73(L) 4.20 - 5.70 10*6/uL 02/26/2025 11:48 PM EDT [facility] ([facility]) Hemoglobin 8.5(L) 13.0 - 17.0 g/dL 02/26/2025 11:48 PM EDT [facility] ([facility]) Hematocrit 24.6(L) 39.0 - 50.0 % 02/26/2025 11:48 PM EDT [facility] ([facility]) MCV 90.1 82.0 - 98.0 fL 02/26/2025 11:48 PM EDT [facility] ([facility]) MCH 31.1 27.0 - 33.0 pg 02/26/2025 11:48 PM EDT [facility] ([facility]) MCHC 34.6 32.0 - 35.0 g/dL 02/26/2025 11:48 PM EDT [facility] ([facility]) RDW 17.5(H) 11.5 - 15.0 % 02/26/2025 11:48 PM EDT [facility] ([facility]) Platelets 225 150 - 400 10*3/uL 02/26/2025 11:48 PM EDT [facility] ([facility]) Blood Venous blood specimen / Unknown Existing Catheter / Unknown 02/26/2025 11:21 PM EDT 02/26/2025 11:29 PM EDT us Ruth Kramer MD LAB BLOOD ORDERABLES Final Resul t [facility] ([facility]) [address] [place] [address] * (ABNORMAL) CBC (02/26/2025 6:18 PM EDT) Auto WBC 8.65 4.00 - 10.60 10*3/uL 02/26/2025 6:58 PM EDT [facility] ([facility]) RBC 2.81(L) 4.20 - 5.70 10*6/uL 02/26/2025 6:58 PM EDT [facility] ([facility]) Hemoglobin 8.5(L) 13.0 - 17.0 g/dL 02/26/2025 6:58 PM EDT [facility] ([facility]) Hematocrit 25.0(L) 39.0 - 50.0 % 02/26/2025 6:58 PM EDT [facility] ([facility]) MCV 89.0 82.0 - 98.0 fL 02/26/2025 6:58 PM EDT [facility]) MCH 30.2 27.0 - 33.0 pg 02/26/2025 6:58 PM EDT [facility] ([facility]) MCHC 34.0 32.0 - 35.0 g/dL 02/26/2025 6:58 PM EDT [facility] ([facility]) RDW 17.6(H) 11.5 - 15.0 % 02/26/2025 6:58 PM EDT [facility] ([facility]) Platelets 219 150 - 400 10*3/uL 02/26/2025 6:58 PM EDT [facility]) Blood Arterial blood specimen / Unknown Existing Catheter / Unknown 02/26/2025 6:18 PM EDT 02/26/2025 6:23 PM EDT us Ruth Kramer MD LAB BLOOD ORDERABLES Final Resul t [facility]) [address] [place] [address] * (ABNORMAL) Reticulocyte panel (02/26/2025 11:48 AM EDT) Retic Ct Abs 0.0781 0.0250 - 0.1000 10*6/uL 02/26/2025 2:07 PM EDT [facility] ([facility]) Retic Ct Pct 2.79(H) 0.50 - 1.80 % 02/26/2025 2:07 PM EDT [facility]) Immature Reticulocyte Fraction % 36.5(H) 2 - 16 % 02/26/2025 2:07 PM EDT [facility] ([facility]) Reticulocyte Hemoglobin 33.0 28.0 - 36.0 pg 02/26/2025 2:07 PM EDT [facility] ([facility]) Blood Venous blood specimen / Unknown Existing Catheter / Unknown 02/26/2025 11:48 AM EDT 02/26/2025 12:00 PM EDT us Ruth Kramer MD LAB BLOOD ORDERABLES Final Resul t [facility] ([facility]) [address] [place], [place] [id number] * (ABNORMAL) CBC (02/26/2025 11:48 AM EDT) Auto WBC 7.78 4.00 - 10.60 10*3/uL 02/26/2025 12:18 PM EDT [facility] ([facility]) RBC 2.74(L) 4.20 - 5.70 10*6/uL 02/26/2025 12:18 PM EDT [facility] ([facility]) Hemoglobin 8.6(L) 13.0 - 17.0 g/dL 02/26/2025 12:18 PM EDT [facility] ([facility]) Hematocrit 24.6(L) 39.0 - 50.0 % 02/26/2025 12:18 PM EDT [facility] ([facility]) MCV 89.8 82.0 - 98.0 fL 02/26/2025 12:18 PM EDT [facility] ([facility]) MCH 31.4 27.0 - 33.0 pg 02/26/2025 12:18 PM EDT [facility] ([facility]) MCHC 35.0 32.0 - 35.0 g/dL 02/26/2025 12:18 PM EDT [facility] ([facility]) RDW 17.8(H) 11.5 - 15.0 % 02/26/2025 12:18 PM EDT [facility] ([facility]) Platelets 205 150 - 400 10*3/uL 02/26/2025 12:18 PM EDT [facility] ([facility]) Blood Venous blood specimen / Unknown Existing Catheter / Unknown 02/26/2025 11:48 AM EDT 02/26/2025 12:00 PM EDT us Ruth Kramer MD LAB BLOOD ORDERABLES Final Resul t Performing Organization Address City/[facility]/ZIP Co de Phone Number [facility] ([facility]) [address] [place] [address] * Folate (02/26/2025 5:13 AM EDT) Pathologist [facility] Folate 17.66 6.6 - 1,000 ng/mL 02/26/2025 1:05 PM EDT [facility] ([facility]) Blood Arterial blood specimen / Unknown Existing Catheter / Unknown 02/26/2025 5:13 AM EDT 02/26/2025 5:36 AM EDT us Ruth Kramer MD LAB BLOOD ORDERABLES Final Resul t Performing Organization Address [facility] Co de Phone Number [facility] ([facility]) [address] [place] [phone] * (ABNORMAL) Vitamin B12 (02/26/2025 5:13 AM EDT) [facility] Vitamin B-12 1,129(H) 180 - 914 pg/mL 02/26/2025 1:05 PM EDT [facility] ([facility]) Comment: REFERENCE RANGES: 180-914 pg/mL Normal 145-179 pg/mL Indeterminate <145 pg/mL Deficient Blood Arterial blood specimen / Unknown Existing Catheter / Unknown 02/26/2025 5:13 AM EDT 02/26/2025 5:36 AM EDT us Ruth Kramer MD LAB BLOOD ORDERABLES Final Resul t Performing Organization Address City/[facility]/ZIP Co de Phone Number [facility] ([facility]) [address] [place] [address] * Ferritin (02/26/2025 5:13 AM EDT) Ferritin 234.0 24.0 - 336.0 ng/mL 02/26/2025 1:05 PM EDT [facility] ([facility]) Blood Arterial blood specimen / Unknown Existing Catheter / Unknown 02/26/2025 5:13 AM EDT 02/26/2025 5:36 AM EDT Ruth Kramer MD LAB BLOOD ORDERABLES Final Resul t [facility]) [address] [place] [address] * (ABNORMAL) Iron and TIBC (02/26/2025 5:13 AM EDT) Iron 20(L) 50 - 212 ug/dL 02/26/2025 12:38 PM EDT [facility] ([facility]) TIBC 227(L) 250 - 450 ug/dL 02/26/2025 12:38 PM EDT [facility] ([facility]) Iron Saturation 9(L) 20 - 50 % 12:38 PM EDT [facility] ([facility]) UIBC 207.0 155.0 - 355.0 ug/dL 02/26/2025 12:38 PM EDT [facility] ([facility]) Blood Arterial blood specimen / Unknown Existing Catheter / Unknown 02/26/2025 5:13 AM EDT 02/26/2025 5:36 AM EDT us Ruth Kramer MD LAB BLOOD ORDERABLES Final Resul t [facility] ([facility]) [address] [place] [address] * (ABNORMAL) Phosphorus (02/26/2025 5:13 AM EDT) Phosphorus 1.8(L) 2.5 - 5.0 mg/dL 02/26/2025 6:05 AM EDT [facility] ([facility]) Blood Arterial blood specimen / Unknown Existing Catheter / Unknown 02/26/2025 5:13 AM EDT 02/26/2025 5:36 AM EDT us Ruth Kramer MD LAB BLOOD ORDERABLES Final Resul t Performing Organization Address City/[facility]/ZIP Co de Phone Number [facility] ([facility]) [address] [place], [place] [id number] * Magnesium (02/26/2025 5:13 AM EDT) Magnesium 2.2 1.9 - 2.7 mg/dL 02/26/2025 6:05 AM EDT [facility] ([facility]) Blood Arterial blood specimen / Unknown Existing Catheter / Unknown 02/26/2025 5:13 AM EDT 02/26/2025 5:36 AM EDT us Ruth Kramer MD LAB BLOOD ORDERABLES Final Resul t Performing Organization Address City/[facility] Co de Phone Number [facility] ([facility]) [address] [place] [address] * (ABNORMAL) Comprehensive metabolic panel (02/26/2025 5:13 AM EDT) Sodium 133(L) 136 - 145 mmol/L 02/26/2025 6:05 AM EDT [facility] ([facility]) Potassium 3.9 3.5 - 5.1 mmol/L 02/26/2025 6:05 AM EDT [facility] ([facility]) Chloride 103 98 - 107 mmol/L 02/26/2025 6:05 AM EDT [facility] ([facility]) CO2 27 21 - 31 mmol/L 02/26/2025 6:05 AM EDT [facility] ([facility]) Anion Gap 7 7 - 20 mmol/L 02/26/2025 6:05 AM EDT [facility] ([facility]) BUN 25 7 - 25 mg/dL 02/26/2025 6:05 AM EDT [facility] ([facility]) Creatinine 0.80 0.70 - 1.30 mg/dL 02/26/2025 6:[address] [facility] ([facility]) BUN/Creatinine Ratio 31.3 01/30 6:[address] [facility] ([facility]) Glucose 94 70 - 100 mg/dL 02/26/2025 6:[address] [facility] ([facility]) Calcium 7.9(L) 8.6 - 10.3 mg/dL 02/26/2025 6:[address] [facility] ([facility]) AST 16 13 - 39 U/L 02/26/2025 6:[address] [facility] ([facility]) ALT (SGPT) 24 7 - 52 U/L 02/26/2025 6:[address] [facility] ([facility]) Alkaline Phosphatase 54 34 - 104 U/L 02/26/2025 6:[address] [facility] ([facility]) Total Protein 4.8(L) 6.0 - 8.3 g/dL 02/26/2025 6:[address] [facility] ([facility]) Albumin 2.9(L) 3.5 - 5.7 g/dL 02/26/2025 6:[address] [facility] ([facility]) Total Bilirubin 3.5(H) 0.3 - 1.0 mg/dL 02/26/2025 6:[address] [facility] ([facility]) eGFR 102.6 >60.0 mL/min/1. 73m*2 02/26/2025 6:[address] [facility] ([facility]) Comment:The [facility] s estimated glomerular filtration rate (eGFR) will no longer include consideration of race in its calculation. The [employer] s eGFR Task Force developed new recommendations for the estimation of the glomerular filtration rate in the [place] They recommend immediate implementation of the new equation refit without the race variable in all laboratories because the calculation does not include race. In addition to not including race in the calculation and reporting, it included diversity in its development, and has acceptable performance characteristics and potential consequences that do not disproportionately affect any one group of individuals. Blood Arterial blood specimen / Unknown Existing Catheter / Unknown 02/26/2025 5:13 AM EDT 02/26/2025 5:36 AM EDT us Ruth Kramer MD LAB BLOOD ORDERABLES Final Resul t [facility] ([facility]) [address] [place] [address] * (ABNORMAL) CBC (02/26/2025 5:13 AM EDT) Auto WBC 7.09 4.00 - 10.60 10*3/uL 02/26/2025 5:46 AM EDT [facility] [facility] RBC 2.58(L) 4.20 - 5.70 10*6/uL 02/26/2025 5:46 AM EDT [facility] ([facility]) Hemoglobin 7.9(L) 13.0 - 17.0 g/dL 02/26/2025 5:46 AM EDT [facility] ([facility]) Hematocrit 23.2(L) 39.0 - 50.0 % 02/26/2025 5:46 AM EDT [facility] ([facility]) MCV 89.9 82.0 - 98.0 fL 02/26/2025 5:46 AM EDT [facility] ([facility]) MCH 30.6 27.0 - 33.0 pg 02/26/2025 5:46 AM EDT [facility] ([facility]) MCHC 34.1 32.0 - 35.0 g/dL 02/26/2025 5:46 AM EDT [facility] ([facility]) RDW 17.8(H) 11.5 - 15.0 % 02/26/2025 5:46 AM EDT [facility] ([facility]) Platelets 199 150 - 400 10*3/uL 02/26/2025 5:46 AM EDT [facility] ([facility]) Blood Arterial blood specimen / Unknown Existing Catheter / Unknown 02/26/2025 5:13 AM EDT 02/26/2025 5:36 AM EDT Ruth Kramer MD LAB BLOOD ORDERABLES Final Resul t [facility] ([facility]) [address] [place] [address] * (ABNORMAL) CBC (02/25/2025 11:56 PM EDT) Auto WBC 7.74 4.00 - 10.60 10*3/uL 02/26/2025 12:11 AM EDT [facility] ([facility]) RBC 2.60(L) 4.20 - 5.70 10*6/uL 02/26/2025 12:11 AM EDT [facility] ([facility]) Hemoglobin 8.1(L) 13.0 - 17.0 g/dL 02/26/2025 12:11 AM EDT [facility] ([facility]) Hematocrit 23.3(L) 39.0 - 50.0 % 02/26/2025 12:11 AM EDT [facility] ([facility]) MCV 89.6 82.0 - 98.0 fL 02/26/2025 12:11 AM EDT [facility]) MCH 31.2 27.0 - 33.0 pg 02/26/2025 12:11 AM EDT [facility] ([facility]) MCHC 34.8 32.0 - 35.0 g/dL 02/26/2025 12:11 AM EDT [facility] ([facility]) RDW 17.7(H) 11.5 - 15.0 % 02/26/2025 12:11 AM EDT [facility] ([facility]) Platelets 180 150 - 400 10*3/uL 02/26/2025 12:11 AM EDT [facility] ([facility]) Blood Arterial blood specimen / Unknown Existing Catheter / Unknown 02/25/2025 11:56 PM EDT 02/26/2025 12:03 AM EDT us Ruth Kramer MD LAB BLOOD ORDERABLES Final Resul t [facility]) [address] [place] [address] * (ABNORMAL) CBC (02/25/2025 6:08 PM EDT) [facility] Auto WBC 8.04 4.00 - 10.60 10*3/uL 02/25/2025 6:50 PM EDT [facility] ([facility]) RBC 2.90(L) 4.20 - 5.70 10*6/uL 02/25/2025 6:50 PM EDT [facility] ([facility]) Hemoglobin 9.0(L) 13.0 - 17.0 g/dL 02/25/2025 6:50 PM EDT [facility] ([facility]) Hematocrit 26.0(L) 39.0 - 50.0 % 02/25/2025 6:50 PM EDT [facility] ([facility]) MCV 89.7 82.0 - 98.0 fL 02/25/2025 6:50 PM EDT [facility] ([facility]) MCH 31.0 27.0 - 33.0 pg 02/25/2025 6:50 PM EDT [facility] ([facility]) MCHC 34.6 32.0 - 35.0 g/dL 02/25/2025 6:50 PM EDT [facility] ([facility]) RDW 17.7(H) 11.5 - 15.0 % 02/25/2025 6:50 PM EDT [facility] ([facility]) Platelets 180 150 - 400 10*3/uL 02/25/2025 6:50 PM EDT [facility] ([facility]) Blood Arterial blood specimen / Unknown Existing Catheter / Unknown 02/25/2025 6:08 PM EDT 02/25/2025 6:43 PM EDT us Ruth Kramer MD LAB BLOOD ORDERABLES Final Resul t [facility]) [address] [place] [address] * (ABNORMAL) CBC (02/25/2025 1:29 PM EDT) Pathologist [facility] Auto WBC 7.39 4.00 - 10.60 10*3/uL 02/25/2025 1:44 PM EDT [facility] ([facility]) RBC 2.71(L) 4.20 - 5.70 10*6/uL 02/25/2025 1:44 PM EDT [facility] ([facility]) Hemoglobin 8.3(L) 13.0 - 17.0 g/dL 02/25/2025 1:44 PM EDT [facility] ([facility]) Hematocrit 24.3(L) 39.0 - 50.0 % 02/25/2025 1:44 PM EDT [facility] ([facility]) MCV 89.7 82.0 - 98.0 fL 02/25/2025 1:44 PM EDT [facility] ([facility]) MCH 30.6 27.0 - 33.0 pg 02/25/2025 1:44 PM EDT [facility] ([facility]) MCHC 34.2 32.0 - 35.0 g/dL 02/25/2025 1:44 PM EDT [facility] ([facility]) RDW 17.7(H) 11.5 - 15.0 % 02/25/2025 1:44 PM EDT [facility] ([facility]) Platelets 158 150 - 400 10*3/uL 02/25/2025 1:44 PM EDT [facility] ([facility]) Blood Arterial blood specimen / Unknown Existing Catheter / Unknown 02/25/2025 1:29 PM EDT 02/25/2025 1:35 PM EDT us Ruth Kramer MD LAB BLOOD ORDERABLES Final Resul t [facility] ([facility]) [address] [place], [place] [id number] * Transfuse RBC (02/25/2025 12:11 PM EDT) us Ruth Kramer MD BLOOD TRANSFUSION ORDERABLES Fin al Result * Transfuse RBC: 1 Units (02/25/2025 12:11 PM EDT) us Ruth Kramer MD BLOOD TRANSFUSION ORDERABLES Fin al Result * CTA Abdomen Pelvis W IV Contrast (02/25/2025 10:49 AM EDT) Anatomical Region Laterality Modality Body, Pelvis, Abdomen Computed T omography 02/25/2025 12:0 2 PM EDT Impressions 02/25/2025 12:07 PM EDT * Extensive hemorrhage/hematomas involving the inferior rectus sheath (left greater than right), extraperitoneal space of the pelvis, and retroperitoneum. The overall amount of hemorrhage has not significantly changed, though there has been some redistribution of hemorrhage with increase in amount within the lower retroperitoneal spaces (left greater than right) though slightly smaller amount of hemorrhage in the extraperitoneal space of the pelvis. * Unable to accurately comment on presence or absence of active arterial bleeding on this study due to lack of true arterial phase imaging. * Right lower lobe airspace opacities may represent pneumonia, aspiration possible. * Small left pleural effusion and small pericardial effusion. All CT scans at this facility use dose modulation, iterative reconstruction, and/or weight based dosing when appropriate to reduce radiation dose to as low as reasonably achievable. Electronically signed: Daniel Diaz MD. Narrative 02/25/2025 12:07 PM EDT CTA ABDOMEN/PELVIS HISTORY: Hematoma COMPARISON: 02/22/2025 TECHNIQUE: Multidetector CT angiogram through the abdomen and pelvis performed following the uncomplicated intravenous administration of 100 mL Omnipaque 350. 3-D maximum intensity projection reconstructions constructed under concurrent physician supervision on a independent workstation. 3-D images obtained to improve visualization of vascular detail. FINDINGS: Small left pleural effusion with adjacent atelectasis. Small pericardial effusion. Airspace opacities in the right lower lobe. Cholelithiasis. The liver, spleen, adrenal glands, pancreas, and kidneys are unremarkable. No enlarged abdominal or pelvic lymph nodes. Bladder decompressed by Tello catheter. Bilateral inferior rectus sheath hematomas (left larger than right) remain. Left-sided hematoma measures 9.0 x 5.7 cm (8.3 x 5.8 cm previously). A large hematoma just posterior to the rectus sheath hematomas in the extraperitoneal space of the pelvis measures 14.5 x 7.2 cm (previously 16.8 x 10.8 cm). There is hemorrhage extending into bilateral retroperitoneal regions (left greater than right), with the amount of this hemorrhage increased since previous study particularly on the left where largest component of hematoma measures 8.3 x 4.6 cm (series 4, image 108). Normal appendix. The small and large bowel are of normal caliber with no evidence of bowel wall thickening. Soft tissue edema in the lower abdomen. Postsurgical changes from previous partial bowel resections. No bowel dilatation. Intra-abdominal vascular structures enhance normally. 3D reformatted images confirm the source data findings. Procedure Note Daniel Diaz MD - 02/25/2025 CTA ABDOMEN/PELVIS HISTORY: Hematoma COMPARISON: 02/22/2025 TECHNIQUE: Multidetector CT angiogram through the abdomen and pelvisperformed following the uncomplicated intravenous administration of 100 mL Xmbborwmy808. 3-D maximum intensity projection reconstructions constructed underconcurrent physician supervision on a independent workstation. 3-D images obtainedto improve visualization of vascular detail. FINDINGS: Small left pleural effusion with adjacent atelectasis. Small pericardial effusion. Airspace opacities in the right lower lobe. Cholelithiasis. Theliver, spleen, adrenal glands, pancreas, and kidneys are unremarkable. Noenlarged abdominal or pelvic lymph nodes. Bladder decompressed by Tello catheter. Bilateral inferior rectus sheath hematomas (left larger than right)remain. Left-sided hematoma measures 9.0 x 5.7 cm (8.3 x 5.8 cm previously). Alarge hematoma just posterior to the rectus sheath hematomas in theextraperitoneal space of the pelvis measures 14.5 x 7.2 cm (previously 16.8 x 10.8 cm).There is hemorrhage extending into bilateral retroperitoneal regions (left greaterthan right), with the amount of this hemorrhage increased since previousstudy particularly on the left where largest component of hematoma measures 8.3x 4.6 cm (series 4, image 108). Normal appendix. The small and large bowel areof normal caliber with no evidence of bowel wall thickening. Soft tissueedema in the lower abdomen. Postsurgical changes from previous partial bowelresections. No bowel dilatation. Intra-abdominal vascular structures enhancenormally. 3D reformatted images confirm the source data findings. IMPRESSION: *Extensive hemorrhage/hematomas involving the inferior rectus sheath(left greater than right), extraperitoneal space of the pelvis, andretroperitoneum. The overall amount of hemorrhage has not significantly changed, thoughthere has been some redistribution of hemorrhage with increase in amount within thelower retroperitoneal spaces (left greater than right) though slightly smalleramount of hemorrhage in the extraperitoneal space of the pelvis. *Unable to accurately comment on presence or absence of active arterial bleeding on this study due to lack of true arterial phase imaging. *Right lower lobe airspace opacities may represent pneumonia,aspiration possible. *Small left pleural effusion and small pericardial effusion. All CT scans at this facility use dose modulation, iterativereconstruction, and/or weight based dosing when appropriate to reduce radiation dose to aslow as reasonably achievable. Electronically signed: Daniel Diaz MD. Autumn Linder MD IMG CT PROCEDURES Final Result * (ABNORMAL) Hemoglobin and hematocrit, blood (02/25/2025 9:04 AM EDT) Hemoglobin 7.9(L) 13.0 - 17.0 g/dL 02/25/2025 9:20 AM EDT [facility] ([facility]) Hematocrit 22.8(L) 39.0 - 50.0 % 02/25/2025 9:20 AM EDT [facility] ([facility]) Blood Arterial blood specimen / Unknown Existing Catheter / Unknown 02/25/2025 9:04 AM EDT 02/25/2025 9:12 AM EDT Ruth Kramer MD LAB BLOOD ORDERABLES Final Resul t [facility] ([facility]) [address] [place] [id number] * Phosphorus (02/25/2025 5:06 AM EDT) Phosphorus 2.6 2.5 - 5.0 mg/dL 02/25/2025 6:27 AM EDT [facility] ([facility]) Blood Arterial blood specimen / Unknown Existing Catheter / Unknown 02/25/2025 5:06 AM EDT 02/25/2025 5:26 AM EDT Ruth Kramer MD LAB BLOOD ORDERABLES Final Resul t [facility] ([facility]) [address] [place] [address] * Magnesium (02/25/2025 5:06 AM EDT) Magnesium 2.3 1.9 - 2.7 mg/dL 02/25/2025 6:27 AM EDT [facility] ([facility]) Blood Arterial blood specimen / Unknown Existing Catheter / Unknown 02/25/2025 5:06 AM EDT 02/25/2025 5:26 AM EDT us Ruth Kramer MD LAB BLOOD ORDERABLES Final Resul t [facility] ([facility]) [address] [place] [address] * (ABNORMAL) Comprehensive metabolic panel (02/25/2025 5:06 AM EDT) Sodium 133(L) 136 - 145 mmol/L 02/25/2025 6:27 AM EDT [facility] ([facility]) Potassium 4.1 3.5 - 5.1 mmol/L 02/25/2025 6:27 AM EDT [facility] ([facility]) Chloride 99 98 - 107 mmol/L 02/25/2025 6:27 AM EDT [facility] ([facility]) CO2 29 21 - 31 mmol/L 02/25/2025 6:27 AM EDT [facility] ([facility]) Anion Gap 9 7 - 20 mmol/L 02/25/2025 6:27 AM EDT [facility] ([facility]) BUN 40(H) 7 - 25 mg/dL 02/25/2025 6:27 AM EDT [facility] ([facility]) Creatinine 1.36(H) 0.70 - 1.30 mg/dL 02/25/2025 6:27 AM EDT [facility] ([facility]) BUN/Creatinine Ratio 29.4 01/30 6:27 AM EDT [facility] ([facility]) Glucose 102(H) 70 - 100 mg/dL 02/25/2025 6:27 AM EDT [facility] ([facility]) Calcium 8.1(L) 8.6 - 10.3 mg/dL 02/25/2025 6:27 AM EDT [facility] ([facility]) AST 19 13 - 39 U/L 02/25/2025 6:27 AM EDT [facility] ([facility]) ALT (SGPT) 27 7 - 52 U/L 02/25/2025 6:27 AM EDT [facility] ([facility]) Alkaline Phosphatase 54 34 - 104 U/L 02/25/2025 6:27 AM EDT [facility] ([facility]) Total Protein 4.9(L) 6.0 - 8.3 g/dL 02/25/2025 6:27 AM EDT [facility] ([facility]) Albumin 3.1(L) 3.5 - 5.7 g/dL 02/25/2025 6:27 AM EDT [facility] ([facility]) Total Bilirubin 2.8(H) 0.3 - 1.0 mg/dL 02/25/2025 6:27 AM EDT [facility] ([facility]) eGFR 60.3 >60.0 mL/min/1. 73m*2 02/25/2025 6:27 AM T [facility] ([facility]) Comment:The [facility] s estimated glomerular filtration rate (eGFR) will no longer include consideration of race in its calculation. The [employer] s eGFR Task Force developed new recommendations for the estimation of the glomerular filtration rate in the [place] They recommend immediate implementation of the new equation refit without the race variable in all laboratories because the calculation does not include race. In addition to not including race in the calculation and reporting, it included diversity in its development, and has acceptable performance characteristics and potential consequences that do not disproportionately affect any one group of individuals. Blood Arterial blood specimen / Unknown Existing Catheter / Unknown 02/25/2025 5:06 AM EDT 02/25/2025 5:26 AM EDT us Ruth Kramer MD LAB BLOOD ORDERABLES Final Resul t [facility]) [address] [place] [address] * (ABNORMAL) CBC (02/25/2025 5:06 AM EDT) Auto WBC 8.90 4.00 - 10.60 10*3/uL 02/25/2025 6:03 AM EDT [facility] ([facility]) RBC 2.48(L) 4.20 - 5.70 10*6/uL 02/25/2025 6:03 AM EDT [facility] ([facility]) Hemoglobin 7.7(L) 13.0 - 17.0 g/dL 02/25/2025 6:03 AM EDT [facility] ([facility]) Hematocrit 22.7(L) 39.0 - 50.0 % 02/25/2025 6:03 AM EDT [facility] ([facility]) MCV 91.5 82.0 - 98.0 fL 02/25/2025 6:03 AM EDT [facility] ([facility]) MCH 31.0 27.0 - 33.0 pg 02/25/2025 6:03 AM EDT [facility] ([facility]) MCHC 33.9 32.0 - 35.0 g/dL 02/25/2025 6:03 AM EDT [facility] ([facility]) RDW 15.8(H) 11.5 - 15.0 % 02/25/2025 6:03 AM EDT [facility] ([facility]) Platelets 172 150 - 400 10*3/uL 02/25/2025 6:03 AM EDT [facility] ([facility]) Blood Arterial blood specimen / Unknown Existing Catheter / Unknown 02/25/2025 5:06 AM EDT 02/25/2025 5:26 AM EDT us Ruth Kramer MD LAB BLOOD ORDERABLES Final Resul t [facility] ([facility]) [address] [place] [address] * (ABNORMAL) Digoxin level (02/25/2025 5:06 AM EDT) Digoxin Lvl 2.3(HH) 0.7 - 2 ng/mL 02/25/2025 6:54 AM EDT [facility] ([facility]) Blood Arterial blood specimen / Unknown Existing Catheter / Unknown 02/25/2025 5:06 AM EDT 02/25/2025 5:26 AM EDT us Ruth Kramer MD LAB BLOOD ORDERABLES Final Resul t [facility] ([facility]) [address] [place], [place] [id number] * (ABNORMAL) CBC (02/25/2025 12:06 AM EDT) Auto WBC 10.11 4.00 - 10.60 10*3/uL 02/25/2025 12:45 AM EDT [facility] ([facility]) RBC 2.62(L) 4.20 - 5.70 10*6/uL 02/25/2025 12:45 AM EDT [facility] ([facility]) Hemoglobin 8.3(L) 13.0 - 17.0 g/dL 02/25/2025 12:45 AM EDT [facility] ([facility]) Hematocrit 23.7(L) 39.0 - 50.0 % 02/25/2025 12:45 AM EDT [facility] ([facility]) MCV 90.5 82.0 - 98.0 fL 02/25/2025 12:45 AM EDT [facility] ([facility]) MCH 31.7 27.0 - 33.0 pg 02/25/2025 12:45 AM EDT [facility] ([facility]) MCHC 35.0 32.0 - 35.0 g/dL 02/25/2025 12:45 AM EDT [facility] ([facility]) RDW 15.8(H) 11.5 - 15.0 % 02/25/2025 12:45 AM EDT [facility] ([facility]) Platelets 178 150 - 400 10*3/uL 02/25/2025 12:45 AM EDT [facility] ([facility]) Blood Arterial blood specimen / Unknown Existing Catheter / Unknown 02/25/2025 12:06 AM EDT 02/25/2025 12:20 AM EDT us Ruth Kramer MD LAB BLOOD ORDERABLES Final Resul t [facility] ([facility]) [address] [place] [address] * (ABNORMAL) CBC (02/24/2025 6:37 PM EDT) Auto WBC 12.23(H) 4.00 - 10.60 10*3/uL 02/24/2025 6:50 PM EDT [facility] ([facility]) RBC 2.73(L) 4.20 - 5.70 10*6/uL 02/24/2025 6:50 PM EDT [facility] ([facility]) Hemoglobin 8.6(L) 13.0 - 17.0 g/dL 02/24/2025 6:50 PM EDT [facility] ([facility]) Hematocrit 24.4(L) 39.0 - 50.0 % 02/24/2025 6:50 PM EDT [facility] ([facility]) MCV 89.4 82.0 - 98.0 fL 02/24/2025 6:50 PM EDT [facility] ([facility]) MCH 31.5 27.0 - 33.0 pg 02/24/2025 6:50 PM EDT [facility] ([facility]) MCHC 35.2(H) 32.0 - 35.0 g/dL 02/24/2025 6:50 PM EDT [facility] ([facility]) RDW 15.8(H) 11.5 - 15.0 % 02/24/2025 6:50 PM EDT [facility] ([facility]) Platelets 182 150 - 400 10*3/uL 02/24/2025 6:50 PM EDT [facility] ([facility]) Blood Arterial blood specimen / Unknown Existing Catheter / Unknown 02/24/2025 6:37 PM EDT 02/24/2025 6:41 PM EDT us Ruth Kramer MD LAB BLOOD ORDERABLES Final Resul t [facility] ([facility]) [address] [place], [place] [id number] * (ABNORMAL) CBC (02/24/2025 12:43 PM EDT) Auto WBC 16.83(H) 4.00 - 10.60 10*3/uL 02/24/2025 1:39 PM EDT [facility] ([facility]) RBC 2.89(L) 4.20 - 5.70 10*6/uL 02/24/2025 1:39 PM EDT [facility] ([facility]) Hemoglobin 9.1(L) 13.0 - 17.0 g/dL 02/24/2025 1:39 PM EDT [facility] ([facility]) Hematocrit 26.1(L) 39.0 - 50.0 % 02/24/2025 1:39 PM EDT [facility] ([facility]) MCV 90.3 82.0 - 98.0 fL 02/24/2025 1:39 PM EDT [facility] ([facility]) MCH 31.5 27.0 - 33.0 pg 02/24/2025 1:39 PM EDT [facility] ([facility]) MCHC 34.9 32.0 - 35.0 g/dL 02/24/2025 1:39 PM EDT [facility] ([facility]) RDW 15.8(H) 11.5 - 15.0 % 02/24/2025 1:39 PM EDT [facility] ([facility]) Platelets 196 150 - 400 10*3/uL 02/24/2025 1:39 PM EDT [facility] ([facility]) Blood Arterial blood specimen / Unknown Existing Catheter / Unknown 02/24/2025 12:43 PM EDT 02/24/2025 1:13 PM EDT us Ruth Kramer MD LAB BLOOD ORDERABLES Final Resul t [facility] ([facility]) [address] [place] [address] * Potassium, urine, random (02/24/2025 10:52 AM EDT) Potassium, Ur 107 mmol/L 02/24/2025 11:31 AM EDT [facility] Urine Urine specimen obtained by clean catch procedure / Unknown Non-blood Collection / Unknown 02/24/2025 10:52 AM EDT 02/24/2025 11:05 AM EDT us Matilda Sheppard MD LAB URINE ORDERABLES Final Resu lt [facility]) [address] [place] [id number] * Sodium, urine, random (02/24/2025 10:52 AM EDT) Sodium, Ur 15 mmol/L 02/24/2025 11:31 AM EDT [facility] Urine Urine specimen obtained by clean catch procedure / Unknown Non-blood Collection / Unknown 02/24/2025 10:52 AM EDT 02/24/2025 11:05 AM EDT us Matilda Sheppard MD LAB URINE ORDERABLES Final Resu lt [facility]) [address] [place] [phone] * (ABNORMAL) Chloride, urine, random (02/24/2025 10:52 AM EDT) Chloride, Ur <15.0(L) 110 - 250 mmol/L 02/24/2025 11:31 AM EDT [facility]) Urine Urine specimen obtained by clean catch procedure / Unknown Non-blood Collection / Unknown 02/24/2025 10:52 AM EDT 02/24/2025 11:05 AM EDT us Matilda Sheppard MD LAB URINE ORDERABLES Final Resu lt Performing Organization Address City/[facility]/ZIP Co de Phone Number [facility] ([facility]) [address] [place] [address] * Creatinine, urine, random (02/24/2025 10:52 AM EDT) Creatinine, Ur 170.0 26 - 299 mg/dL 02/24/2025 11:31 AM EDT [facility] Urine Urine specimen obtained by clean catch procedure / Unknown Non-blood Collection / Unknown 02/24/2025 10:52 AM EDT 02/24/2025 11:05 AM EDT Matilda Sheppard MD LAB URINE ORDERABLES Final Resu lt Performing Organization Address [facility] Co de Phone Number [facility] ([facility]) [address] [place] [address] * Osmolality, urine (02/24/2025 10:52 AM EDT) Osmolality, Urine 686 80 - 1300 mOsm/kg 02/24/2025 5:40 PM EDT [facility] Comment:Test Performed by [facility] [employer] [address] [place] [id number] - [id number] 02/24/2025 17:40 Urine Urine specimen obtained by clean catch procedure / Unknown Non-blood Collection / Unknown 02/24/2025 10:52 AM EDT 02/24/2025 11:05 AM EDT Matilda Sheppard MD LAB URINE ORDERABLES Final Resu lt Performing Organization Address City/[facility]/ZIP Co de Phone Number [facility] [address] [place] [address] * (ABNORMAL) Urinalysis with microscopic (02/24/2025 10:52 AM EDT) Color, Urine Yellow Colorless, Yellow, Light-Yellow 02/24/2025 11:28 AM [facility] ([facility]) Clarity, Urine Cloudy(A) Clear 02/24/2025 11:[address] [facility] ([facility]) Specific [place], Urine 1.036(H) 1.010 - 1.030 02/24/2025 11:[address] [facility] pH, Urine 5.5 5.0 - 8.0 pH 02/24/2025 11:[address] [facility] ([facility]) Leukocytes, Urine Moderate(A) Negative 02/24/2025 11:[address] [facility] ([facility]) Nitrite, Urine Negative Negative 02/24/2025 11:[address] [facility] ([facility]) Protein, Urine 30(A) Negative mg/dL 02/24/2025 11:[address] [facility] ([facility]) Glucose, Urine Normal Normal mg/dL 02/24/2025 11:[address] [facility] ([facility]) Bilirubin, Urine Negative Negative 02/24/2025 11:[address] [facility] ([facility]) Ketones, Urine Negative Negative mg/dL 02/24/2025 11:[address] [facility] ([facility]) Urobilinogen, Urine Normal Normal mg/dL 02/24/2025 11:[address] [facility] ([facility]) Blood, Urine Large(A) Negative 02/24/2025 11:[address] [facility] ([place]) RBC, Urine >20(A) None Seen, 0-2 /HPF 02/24/2025 11:[address] [facility] ([place]) WBC, Urine 21-50(A) None Seen, 0-2 /HPF 02/24/2025 11:[address] [facility] ([facility]) Squamous Epithelial, Urine Moderate(A) None Seen, Occasional, Few /LPF 02/24/2025 11:[address] [facility] ([place]) Mucus, Urine Moderate(A) None Seen, Occasional, Few /LPF 02/24/2025 11:[address] [facility] ([facility]) Casts, Urine Present(A) None Seen /LPF 02/24/2025 11:[address] [facility] ([place]) Hyaline Casts, UA 3-5(A) 0 - 2 /LPF 02/24/2025 11:28 AM EDT [facility] ([facility]) Urine Urine specimen obtained by clean catch procedure / Unknown Non-blood Collection / Unknown 02/24/2025 10:52 AM EDT 02/24/2025 11:05 AM EDT us Matilda Sheppard MD LAB URINE ORDERABLES Final Resu lt [facility] ([place]) [address] [place] [address] * US renal complete (02/24/2025 10:09 AM EDT) Anatomical Region Laterality Modality Kidney Ultrasound 02/24/2025 10:2 1 AM EDT Impressions 02/24/2025 10:24 AM EDT 1. Minimal prominence of the right renal pelvis without calyceal dilatation. 2. No hydronephrosis of the left kidney. 3. 40 catheter in the bladder. 4. Complex fluid collection in the pelvis consistent with known hematoma. Electronically signed: INES JORDAN MD. Narrative 02/24/2025 10:24 AM EDT US RENAL COMPLETE 02/24/2025 9:39 AM CLINICAL INDICATIONS: Rectus sheath hematoma, acute kidney injury, bleeding COMPARISON: CT dated 02/22/2025 FINDINGS: The right kidney measures 12.4 x 5.3 x 5.6 cm, and the right renal pelvis is minimally prominent, but no calyceal dilatation is seen. The left kidney measures 12.9 x 6 x 6.2 cm without hydronephrosis. No perinephric fluid collections. Complex fluid collection seen in the pelvis near the urinary bladder measuring up to 12.8 cm in the largest diameter, consistent with known hemorrhage. The bladder is decompressed with a Tello catheter. Procedure Note Ines Jordan MD - 02/24/2025 US RENAL COMPLETE 02/24/2025 9:39 AM CLINICAL INDICATIONS: Rectus sheath hematoma, acute kidney injury,bleeding COMPARISON: CT dated 02/22/2025 FINDINGS: The right kidney measures 12.4 x 5.3 x 5.6 cm, and the right renal pelvisis minimally prominent, but no calyceal dilatation is seen. The left kidney measures 12.9 x 6 x 6.2 cm without hydronephrosis. No perinephric fluid collections. Complex fluid collection seen in the pelvis near theurinary bladder measuring up to 12.8 cm in the largest diameter, consistent withknown hemorrhage. The bladder is decompressed with a Tello catheter. IMPRESSION: 1. Minimal prominence of the right renal pelvis without calycealdilatation. 2. No hydronephrosis of the left kidney. 3. 40 catheter in the bladder. 4. Complex fluid collection in the pelvis consistent with knownhematoma. Electronically signed: INES JORDAN MD. Matilda Sheppard MD IMG US PROCEDURES Final Result * (ABNORMAL) Phosphorus (02/24/2025 3:21 AM EDT) Phosphorus 5.4(H) 2.5 - 5.0 mg/dL 02/24/2025 4:04 AM EDT [facility] ([facility]) Blood Arterial blood specimen / Unknown Existing Catheter / Unknown 02/24/2025 3:21 AM EDT 02/24/2025 3:39 AM EDT Ruth Kramer MD LAB BLOOD ORDERABLES Final Resul t [facility] ([facility]) [address] [place] [address] * Magnesium (02/24/2025 3:21 AM EDT) Magnesium 2.1 1.9 - 2.7 mg/dL 02/24/2025 4:04 AM EDT [facility] ([facility]) Blood Arterial blood specimen / Unknown Existing Catheter / Unknown 02/24/2025 3:21 AM EDT 02/24/2025 3:39 AM EDT Ruth Kramer MD LAB BLOOD ORDERABLES Final Resul t [facility] ([facility]) [address] [place] [address] * (ABNORMAL) Comprehensive metabolic panel (02/24/2025 3:21 AM EDT) Sodium 135(L) 136 - 145 mmol/L 02/24/2025 4:04 AM EDT [facility] ([facility]) Potassium 4.1 3.5 - 5.1 mmol/L 02/24/2025 4:04 AM EDT [facility] ([facility]) Chloride 99 98 - 107 mmol/L 02/24/2025 4:04 AM EDT [facility] ([facility]) CO2 28 21 - 31 mmol/L 02/24/2025 4:04 AM EDT [facility] ([facility]) Anion Gap 12 7 - 20 mmol/L 02/24/2025 4:04 AM EDT [facility] ([facility]) BUN 52(H) 7 - 25 mg/dL 02/24/2025 4:04 AM EDT [facility] ([facility]) Creatinine 2.43(H) 0.70 - 1.30 mg/dL 02/24/2025 4:04 AM EDT [facility] ([facility]) BUN/Creatinine Ratio 21.4 01/30 4:04 AM EDT [facility] ([facility]) Glucose 104(H) 70 - 100 mg/dL 02/24/2025 4:04 AM EDT [facility] ([facility]) Calcium 8.5(L) 8.6 - 10.3 mg/dL 02/24/2025 4:04 AM EDT [facility] ([facility]) AST 24 13 - 39 U/L 02/24/2025 4:04 AM EDT [facility] ([facility]) ALT (SGPT) 32 7 - 52 U/L 02/24/2025 4:04 AM EDT [facility] ([facility]) Alkaline Phosphatase 58 34 - 104 U/L 02/24/2025 4:04 AM EDT [facility] ([facility]) Total Protein 5.2(L) 6.0 - 8.3 g/dL 02/24/2025 4:04 AM EDT [facility] ([facility]) Albumin 3.3(L) 3.5 - 5.7 g/dL 02/24/2025 4:04 AM EDT [facility] ([facility]) Total Bilirubin 3.0(H) 0.3 - 1.0 mg/dL 02/24/2025 4:04 AM EDT [facility] ([facility]) eGFR 30.1(L) >60.0 mL/min/1. 73m*2 02/24/2025 4:04 AM EDT [facility] ([facility]) Comment:The [facility] s estimated glomerular filtration rate (eGFR) will no longer include consideration of race in its calculation. The [employer] s eGFR Task Force developed new recommendations for the estimation of the glomerular filtration rate in the [place] They recommend immediate implementation of the new equation refit without the race variable in all laboratories because the calculation does not include race. In addition to not including race in the calculation and reporting, it included diversity in its development, and has acceptable performance characteristics and potential consequences that do not disproportionately affect any one group of individuals. Blood Arterial blood specimen / Unknown Existing Catheter / Unknown 02/24/2025 3:21 AM EDT 02/24/2025 3:39 AM EDT us Ruth Kramer MD LAB BLOOD ORDERABLES Final Resul t [facility]) [address] [id number] * (ABNORMAL) CBC (02/24/2025 3:21 AM EDT) Auto WBC 14.22(H) 4.00 - 10.60 10*3/uL 02/24/2025 4:08 AM EDT [facility] ([facility]) RBC 2.86(L) 4.20 - 5.70 10*6/uL 02/24/2025 4:08 AM EDT [facility] ([facility]) Hemoglobin 9.0(L) 13.0 - 17.0 g/dL 02/24/2025 4:08 AM EDT [facility] ([facility]) Hematocrit 26.4(L) 39.0 - 50.0 % 02/24/2025 4:08 AM EDT [facility] ([facility]) MCV 92.3 82.0 - 98.0 fL 02/24/2025 4:08 AM EDT [facility] ([facility]) MCH 31.5 27.0 - 33.0 pg 02/24/2025 4:08 AM EDT [facility] ([facility]) MCHC 34.1 32.0 - 35.0 g/dL 02/24/2025 4:08 AM EDT [facility] ([facility]) RDW 15.9(H) 11.5 - 15.0 % 02/24/2025 4:08 AM EDT [facility] ([facility]) Platelets 173 150 - 400 10*3/uL 02/24/2025 4:08 AM EDT [facility] ([facility]) Blood Arterial blood specimen / Unknown Existing Catheter / Unknown 02/24/2025 3:21 AM EDT 02/24/2025 3:39 AM EDT us Ruth Kramer MD LAB BLOOD ORDERABLES Final Resul t [facility] ([facility]) [address] [place] [address] * (ABNORMAL) CBC (02/23/2025 11:50 PM EDT) Auto WBC 14.02(H) 4.00 - 10.60 10*3/uL 02/24/2025 12:14 AM EDT [facility] ([facility]) RBC 2.79(L) 4.20 - 5.70 10*6/uL 02/24/2025 12:14 AM EDT [facility] ([facility]) Hemoglobin 8.8(L) 13.0 - 17.0 g/dL 02/24/2025 12:14 AM EDT [facility] ([facility]) Hematocrit 25.4(L) 39.0 - 50.0 % 02/24/2025 12:14 AM EDT [facility] ([facility]) MCV 91.0 82.0 - 98.0 fL 02/24/2025 12:14 AM EDT [facility] ([facility]) MCH 31.5 27.0 - 33.0 pg 02/24/2025 12:14 AM EDT [facility] ([facility]) MCHC 34.6 32.0 - 35.0 g/dL 02/24/2025 12:14 AM EDT [facility] ([facility]) RDW 15.9(H) 11.5 - 15.0 % 02/24/2025 12:14 AM EDT [facility] ([facility]) Platelets 171 150 - 400 10*3/uL 02/24/2025 12:14 AM EDT [facility] ([facility]) Blood Arterial blood specimen / Unknown Existing Catheter / Unknown 02/23/2025 11:50 PM EDT 02/24/2025 12:05 AM EDT us Ruth Kramer MD LAB BLOOD ORDERABLES Final Resul t [facility] ([facility]) [address] [place] [address] * (ABNORMAL) CBC (02/23/2025 6:30 PM EDT) Auto WBC 16.62(H) 4.00 - 10.60 10*3/uL 02/23/2025 6:56 PM EDT [facility] ([facility]) RBC 3.13(L) 4.20 - 5.70 10*6/uL 02/23/2025 6:56 PM EDT [facility] ([facility]) Hemoglobin 9.9(L) 13.0 - 17.0 g/dL 02/23/2025 6:56 PM EDT [facility] ([facility]) Hematocrit 28.0(L) 39.0 - 50.0 % 02/23/2025 6:56 PM EDT [facility] ([facility]) MCV 89.5 82.0 - 98.0 fL 02/23/2025 6:56 PM EDT [facility] ([facility]) MCH 31.6 27.0 - 33.0 pg 02/23/2025 6:56 PM EDT [facility] ([facility]) MCHC 35.4(H) 32.0 - 35.0 g/dL 02/23/2025 6:56 PM EDT [facility] ([facility]) RDW 15.9(H) 11.5 - 15.0 % 02/23/2025 6:56 PM EDT [facility] ([facility]) Platelets 192 150 - 400 10*3/uL 02/23/2025 6:56 PM EDT [facility] ([facility]) Blood Venous blood specimen / Unknown Existing Catheter / Unknown 02/23/2025 6:30 PM EDT 02/23/2025 6:43 PM EDT us Ruth Kramer MD LAB BLOOD ORDERABLES Final Resul t Performing Organization Address City/[facility]/ZIP Co de Phone Number [facility]) [address] [phone] * Blood culture, peripheral #1 (02/23/2025 12:04 PM EDT) Blood Culture No growth at 5 days [place] 02/28/2025 1:01 PM EDT [facility]) Blood Venous blood specimen / Unknown Venipuncture / Unknown 02/23/2025 12:04 PM EDT 02/23/2025 12:19 PM EDT us Ruth Kramer MD LAB MICROBIOLOGY - GENERAL ORDER LAURA Final Result [facility]) [address] [place] [address] * Blood culture, peripheral #2 (02/23/2025 12:03 PM EDT) Blood Culture No growth at 5 days [place] 02/28/2025 1:01 PM EDT [facility]) Blood Venous blood specimen / Unknown Venipuncture / Unknown 02/23/2025 12:03 PM EDT 02/23/2025 12:18 PM EDT us Ruth Kramer MD LAB MICROBIOLOGY - GENERAL ORDER LAURA Final Result [facility]) [address] [place], [place] [id number] * Lactic Acid with 4 hour reflex (02/23/2025 11:59 AM EDT) [facility] Lactate 1.8 0.5 - 2.2 mmol/L 02/23/2025 12:53 PM EDT [facility] ([facility]) Blood Venous blood specimen / Unknown Existing Catheter / Unknown 02/23/2025 11:59 AM EDT 02/23/2025 12:19 PM EDT Ruth Kramer MD LAB BLOOD ORDERABLES Final Resul t Performing Organization Address City/[facility]/ZIP Co de Phone Number [facility] ([facility]) [address] [place] [address] * (ABNORMAL) CBC (02/23/2025 11:15 AM EDT) [facility] Auto WBC 15.65(H) 4.00 - 10.60 10*3/uL 02/23/2025 11:37 AM EDT [facility] ([facility]) RBC 3.29(L) 4.20 - 5.70 10*6/uL 02/23/2025 11:37 AM EDT [facility] ([facility]) Hemoglobin 10.4(L) 13.0 - 17.0 g/dL 02/23/2025 11:37 AM EDT [facility] ([facility]) Hematocrit 29.5(L) 39.0 - 50.0 % 02/23/2025 11:37 AM EDT [facility] ([facility]) MCV 89.7 82.0 - 98.0 fL 02/23/2025 11:37 AM EDT [facility] ([facility]) MCH 31.6 27.0 - 33.0 pg 02/23/2025 11:37 AM EDT [facility] ([facility]) MCHC 35.3(H) 32.0 - 35.0 g/dL 02/23/2025 11:37 AM EDT [facility] ([facility]) RDW 15.8(H) 11.5 - 15.0 % 02/23/2025 11:37 AM EDT [facility] ([facility]) Platelets 200 150 - 400 10*3/uL 02/23/2025 11:37 AM EDT [facility] ([facility]) Blood Venous blood specimen / Unknown Existing Catheter / Unknown 02/23/2025 11:15 AM EDT 02/23/2025 11:25 AM EDT us Ruth Kramer MD LAB BLOOD ORDERABLES Final Resul t [facility] ([facility]) [address] [place] [address] * ECG 12 lead (02/23/2025 9:48 AM EDT) Ventricular Rate 148 BPM GE MUSE Atrial Rate 148 BPM GE MUSE KS Interval 136 ms GE MUSE QRS DURATION 166 ms GE MUSE QT Interval 306 ms GE MUSE QTC CALCULATION(BAZE TT) 480 ms GE MUSE P [place] 4 degrees GE MUSE R-[place] -50 degrees GE MUSE T Wave [place] 159 degrees GE MUSE 02/23/2025 9:35 AM EDT 02/24/2025 3:58 AM EDT Impressions GE MUSE - 02/24/2025 3:58 AM EDT Sinus tachycardia Left axis deviation Non-specific intra-ventricular conduction block Abnormal ECG When compared with ECG of 22-FEB-2025 07:05, Sinus rhythm has replaced Atrial fibrillation Confirmed by Prabhu Chavez ([id number]) on 02/24/2025 3:58:26 AM Narrative Procedure Note Prabhu Chavez MD - 02/24/2025 IMPRESSION: Sinus tachycardia Left axis deviation Non-specific intra-ventricular conduction block Abnormal ECG When compared with ECG of 22-FEB-2025 07:05, Sinus rhythm has replaced Atrial fibrillation Confirmed by Prabhu Chavez ([id number]) on 02/24/2025 3:58:26 AM us Ruth Kramer MD ECG ORDERABLES Final Result Performing Organization Address City/[facility]/ZIP Co de Phone Number THALIA NICHOLS * (ABNORMAL) Phosphorus (02/23/2025 5:33 AM EDT) Phosphorus 6.1(H) 2.5 - 5.0 mg/dL 02/23/2025 6:08 AM EDT [facility] ([facility]) Blood Venous blood specimen / Unknown Existing Catheter / Unknown 02/23/2025 5:33 AM EDT 02/23/2025 5:43 AM EDT us Ruth Kramer MD LAB BLOOD ORDERABLES Final Resul t Performing Organization Address [facility] de Phone Number [facility]) [address] [place] [address] * Magnesium (02/23/2025 5:33 AM EDT) Magnesium 2.0 1.9 - 2.7 mg/dL 02/23/2025 6:08 AM EDT [facility] ([facility]) Blood Venous blood specimen / Unknown Existing Catheter / Unknown 02/23/2025 5:33 AM EDT 02/23/2025 5:43 AM EDT us Ruth Kramer MD LAB BLOOD ORDERABLES Final Resul t Performing Organization Address [facility] Co de Phone Number [facility] ([facility]) [address] [place] [address] * (ABNORMAL) Comprehensive metabolic panel (02/23/2025 5:33 AM EDT) Sodium 136 136 - 145 mmol/L 02/23/2025 6:08 AM EDT [facility] ([facility]) Potassium 4.5 3.5 - 5.1 mmol/L 02/23/2025 6:08 AM EDT [facility] ([facility]) Chloride 101 98 - 107 mmol/L 02/23/2025 6:08 AM EDT [facility] ([facility]) CO2 24 21 - 31 mmol/L 02/23/2025 6:[address] [facility] ([facility]) Anion Gap 16 7 - 20 mmol/L 02/23/2025 6:[address] [facility] ([facility]) BUN 39(H) 7 - 25 mg/dL 02/23/2025 6:08 AM T [facility] ([facility]) Creatinine 2.27(H) 0.70 - 1.30 mg/dL 02/23/2025 6:[address] [facility] ([facility]) BUN/Creatinine Ratio 17.2 01/30 6:[address] [facility] ([facility]) Glucose 118(H) 70 - 100 mg/dL 02/23/2025 6:[address] [facility] ([facility]) Calcium 8.9 8.6 - 10.3 mg/dL 02/23/2025 6:[address] [facility] ([facility]) AST 25 13 - 39 U/L 02/23/2025 6:[address] [facility] ([facility]) ALT (SGPT) 32 7 - 52 U/L 02/23/2025 6:[address] [facility] ([facility]) Alkaline Phosphatase 61 34 - 104 U/L 02/23/2025 6:[address] [facility] ([facility]) Total Protein 5.5(L) 6.0 - 8.3 g/dL 02/23/2025 6:[address] [facility] ([facility]) Albumin 3.5 3.5 - 5.7 g/dL 02/23/2025 6:[address] [facility] ([facility]) Total Bilirubin 3.4(H) 0.3 - 1.0 mg/dL 02/23/2025 6:[address] [facility] ([facility]) eGFR 32.6(L) >60.0 mL/min/1. 73m*2 02/23/2025 6:[address] [facility] ([facility]) Comment:The [facility] s estimated glomerular filtration rate (eGFR) will no longer include consideration of race in its calculation. The [employer] s eGFR Task Force developed new recommendations for the estimation of the glomerular filtration rate in the [place] They recommend immediate implementation of the new equation refit without the race variable in all laboratories because the calculation does not include race. In addition to not including race in the calculation and reporting, it included diversity in its development, and has acceptable performance characteristics and potential consequences that do not disproportionately affect any one group of individuals. Blood Venous blood specimen / Unknown Existing Catheter / Unknown 02/23/2025 5:33 AM EDT 02/23/2025 5:43 AM EDT us Ruth Kramer MD LAB BLOOD ORDERABLES Final Resul t [facility] ([facility]) [address] [place] [address] * (ABNORMAL) CBC (02/23/2025 5:33 AM EDT) Auto WBC 14.82(H) 4.00 - 10.60 10*3/uL 02/23/2025 6:05 AM EDT [facility] ([facility]) RBC 3.46(L) 4.20 - 5.70 10*6/uL 02/23/2025 6:05 AM EDT [facility] ([facility]) Hemoglobin 10.9(L) 13.0 - 17.0 g/dL 02/23/2025 6:05 AM EDT [facility] ([facility]) Hematocrit 31.1(L) 39.0 - 50.0 % 02/23/2025 6:05 AM EDT [facility] ([facility]) MCV 89.9 82.0 - 98.0 fL 02/23/2025 6:05 AM EDT [facility] ([facility]) MCH 31.5 27.0 - 33.0 pg 02/23/2025 6:05 AM EDT [facility] ([facility]) MCHC 35.0 32.0 - 35.0 g/dL 02/23/2025 6:05 AM EDT [facility] ([facility]) RDW 15.8(H) 11.5 - 15.0 % 02/23/2025 6:05 AM EDT [facility] ([facility]) Platelets 214 150 - 400 10*3/uL 02/23/2025 6:05 AM EDT [facility] ([facility]) Blood Venous blood specimen / Unknown Existing Catheter / Unknown 02/23/2025 5:33 AM EDT 02/23/2025 5:43 AM EDT us Ruth Kramer MD LAB BLOOD ORDERABLES Final Resul t [facility] ([facility]) [address] [place] [address] * (ABNORMAL) Basic metabolic panel (02/23/2025 12:07 AM EDT) Sodium 137 136 - 145 mmol/L 02/23/2025 12:38 AM EDT [facility] ([facility]) Potassium 4.5 3.5 - 5.1 mmol/L 02/23/2025 12:38 AM EDT [facility] ([facility]) Chloride 102 98 - 107 mmol/L 02/23/2025 12:38 AM EDT [facility] ([facility]) CO2 25 21 - 31 mmol/L 02/23/2025 12:38 AM EDT [facility] ([facility]) BUN 35(H) 7 - 25 mg/dL 02/23/2025 12:38 AM EDT [facility] ([facility]) Creatinine 2.01(H) 0.70 - 1.30 mg/dL 02/23/2025 12:38 AM EDT [facility] ([facility]) Glucose 128(H) 70 - 100 mg/dL 02/23/2025 12:38 AM EDT [facility] ([facility]) Calcium 9.1 8.6 - 10.3 mg/dL 02/23/2025 12:38 AM EDT [facility] ([facility]) Anion Gap 15 7 - 20 mmol/L 02/23/2025 12:38 AM EDT [facility] ([facility]) eGFR 37.7(L) >60.0 mL/min/1. 73m*2 02/23/2025 12:38 AM EDT [facility] ([facility]) Comment:The [facility] s estimated glomerular filtration rate (eGFR) will no longer include consideration of race in its calculation. The [employer] s eGFR Task Force developed new recommendations for the estimation of the glomerular filtration rate in the [place] They recommend immediate implementation of the new equation refit without the race variable in all laboratories because the calculation does not include race. In addition to not including race in the calculation and reporting, it included diversity in its development, and has acceptable performance characteristics and potential consequences that do not disproportionately affect any one group of individuals. BUN/Creatinine Ratio 17.4 01/30 12:38 AM EDT [facility] ([facility]) Blood Venous blood specimen / Unknown Existing Catheter / Unknown 02/23/2025 12:07 AM EDT 02/23/2025 12:13 AM EDT us Ruth Kramer MD LAB BLOOD ORDERABLES Final Resul t [facility] ([facility]) [address] [place] [address] * (ABNORMAL) CBC (02/23/2025 12:07 AM EDT) Auto WBC 13.82(H) 4.00 - 10.60 10*3/uL 02/23/2025 12:55 AM EDT [facility] ([facility]) RBC 3.53(L) 4.20 - 5.70 10*6/uL 02/23/2025 12:55 AM EDT [facility] ([facility]) Hemoglobin 11.1(L) 13.0 - 17.0 g/dL 02/23/2025 12:55 AM EDT [facility] ([facility]) Hematocrit 32.1(L) 39.0 - 50.0 % 02/23/2025 12:55 AM EDT [facility] ([facility]) MCV 90.9 82.0 - 98.0 fL 02/23/2025 12:55 AM EDT [facility] ([facility]) MCH 31.4 27.0 - 33.0 pg 02/23/2025 12:55 AM EDT [facility] ([facility]) MCHC 34.6 32.0 - 35.0 g/dL 02/23/2025 12:55 AM EDT [facility] ([facility]) RDW 15.9(H) 11.5 - 15.0 % 02/23/2025 12:55 AM EDT [facility] ([facility]) Platelets 213 150 - 400 10*3/uL 02/23/2025 12:55 AM EDT [facility] ([facility]) Blood Venous blood specimen / Unknown Existing Catheter / Unknown 02/23/2025 12:07 AM EDT 02/23/2025 12:13 AM EDT us Ruth Kramer MD LAB BLOOD ORDERABLES Final Resul t [facility] ([facility]) [address] [place] [address] * XR chest 1 view (02/22/2025 7:06 PM EDT) Anatomical Region Laterality Modality Chest Computed Radiogr aphy 02/22/2025 7:07 PM EDT Impressions 02/22/2025 7:08 PM EDT * Left central venous catheter tip projects over the mid SVC. No postprocedural pneumothorax. * Retrocardiac atelectasis and/or pneumonia noted. Electronically signed: Davy Garcia M.D.. Narrative 02/22/2025 7:08 PM EDT CLINICAL INFORMATION: . central line placement - it is DONE please come up. TECHNIQUE/PROCEDURE: Chest radiograph, single view. COMPARISON: Chest CT same day Procedure Note Davy Garcia MD - 02/22/2025 CLINICAL INFORMATION: . central line placement - it is DONE please comeup. TECHNIQUE/PROCEDURE: Chest radiograph, single view. COMPARISON: Chest CT same day IMPRESSION: *Left central venous catheter tip projects over the mid SVC. No postprocedural pneumothorax. *Retrocardiac atelectasis and/or pneumonia noted. Electronically signed: Davy Garcia M.D.. us Ruth Kramer MD IMG XR PROCEDURES Final Result * (ABNORMAL) CBC (02/22/2025 6:31 PM EDT) Auto WBC 10.74(H) 4.00 - 10.60 10*3/uL 02/22/2025 6:49 PM EDT [facility] ([facility]) RBC 3.66(L) 4.20 - 5.70 10*6/uL 02/22/2025 6:49 PM EDT [facility] ([facility]) Hemoglobin 11.4(L) 13.0 - 17.0 g/dL 02/22/2025 6:49 PM EDT [facility] ([facility]) Hematocrit 33.4(L) 39.0 - 50.0 % 02/22/2025 6:49 PM EDT [facility] ([facility]) MCV 91.3 82.0 - 98.0 fL 02/22/2025 6:49 PM EDT [facility] ([facility]) MCH 31.1 27.0 - 33.0 pg 02/22/2025 6:49 PM EDT [facility] ([facility]) MCHC 34.1 32.0 - 35.0 g/dL 02/22/2025 6:49 PM EDT [facility] ([facility]) RDW 15.9(H) 11.5 - 15.0 % 02/22/2025 6:49 PM EDT [facility] ([facility]) Platelets 215 150 - 400 10*3/uL 02/22/2025 6:49 PM EDT [facility] ([facility]) Blood Arterial blood specimen / Unknown Arterial Line / Unknown 02/22/2025 6:31 PM EDT 02/22/2025 6:36 PM EDT us Ruth Kramer MD LAB BLOOD ORDERABLES Final Resul t [facility] ([facility]) [address] [place] [address] * (ABNORMAL) Urinalysis microscopic with reflex culture (02/22/2025 4:15 PM EDT) RBC, Urine >20(A) None Seen, 0-2 /HPF 02/22/2025 4:42 PM EDT [facility] ([facility]) WBC, Urine None Seen None Seen, 0-2 /HPF 02/22/2025 4:42 PM EDT [facility] ([facility]) Squamous Epithelial, Urine None Seen None Seen, Occasional , Few /LPF 02/22/2025 4:42 PM EDT [facility] ([facility]) Urine (Urine, Tello Catheter) Non-blood Collection / Unknown 02/22/2025 4:15 PM EDT 02/22/2025 4:20 PM EDT us Suleiman Corcoran MD LAB URINE ORDERABLES Final Res ult [facility] ([facility]) [address] [place] [address] * (ABNORMAL) Urinalysis with reflex culture (02/22/2025 4:15 PM EDT) Color, Urine Red(A) Colorless, Yellow, Light-Yellow 02/22/2025 4:42 PM EDT [facility] ([facility]) Clarity, Urine Turbid(A) Clear 02/22/2025 4:42 PM EDT [facility] ([facility]) pH, Urine 5.5 5.0 - 8.0 pH 02/22/2025 4:42 PM EDT [facility] ([facility]) Leukocytes, Urine Trace(A) Negative 02/22/2025 4:42 PM EDT [facility] ([facility]) Nitrite, Urine Negative Negative 02/22/2025 4:42 PM EDT [facility] ([facility]) Protein, Urine 30(A) Negative mg/dL 02/22/2025 4:42 PM EDT [facility] ([facility]) Glucose, Urine Normal Normal mg/dL 02/22/2025 4:42 PM EDT [facility] ([facility]) Bilirubin, Urine Negative Negative 02/22/2025 4:42 PM EDT [facility] ([facility]) Specific [place], Urine >1.050(H) 1.010 - 1.030 02/22/2025 4:42 PM EDT [facility] ([facility]) Ketones, Urine Negative Negative mg/dL 02/22/2025 4:42 PM EDT [facility] ([facility]) Blood, Urine Large(A) Negative 02/22/2025 4:42 PM EDT [facility] ([facility]) Urobilinogen, Urine Normal Normal mg/dL 02/22/2025 4:42 PM EDT [facility] ([facility]) Urine (Urine, Tello Catheter) Non-blood Collection / Unknown 02/22/2025 4:15 PM EDT 02/22/2025 4:20 PM EDT us Suleiman Corcoran MD LAB URINE ORDERABLES Final Res ult [facility] ([facility]) [address] [place] [address] * CT chest w IV contrast (02/22/2025 1:01 PM EDT) Anatomical Region Laterality Modality Body, Chest Computed Tomogra phy 02/22/2025 1:08 PM EDT Impressions 02/22/2025 1:13 PM EDT * Bibasilar consolidation, atelectasis, pleural effusions. * Small to moderate pericardial effusion, consider echocardiography. * Please see above for further details. Electronically signed: Keyur Romero MD. Narrative 02/22/2025 1:[address] CHEST W IV CONTRAST CLINICAL INFORMATION: Sepsis. COMPARISON: None. PROCEDURE: Routine CT chest obtained after the uncomplicated intravenous administration of contrast material. Multiplanar reformats were obtained from the axial data. All CT scans at this facility use dose modulation, iterative reconstruction, and/or weight based dosing when appropriate to reduce radiation dose to as low as reasonably achievable. FINDINGS: Basilar consolidation and scarring present. Bilateral pleural effusions. There is a [id number]-rz-[id number] pericardial effusion. Aorta is unremarkable. Mild to moderate coronary artery calcifications. Pulmonary arteries are of normal caliber. Postoperative changes GE junction with hiatal hernia. No lymphadenopathy. Degenerative changes. Procedure Note Keyur Romero MD - 02/22/2025 CT CHEST W IV CONTRAST CLINICAL INFORMATION: Sepsis. COMPARISON: None. PROCEDURE: Routine CT chest obtained after the uncomplicated intravenous administration of contrast material. Multiplanar reformats were obtainedfrom the axial data. All CT scans at this facility use dose modulation,iterative reconstruction, and/or weight based dosing when appropriate to reduceradiation dose to as low as reasonably achievable. FINDINGS: Basilar consolidation and scarring present. Bilateral pleural effusions.There is a dscvw-zo-[id number] pericardial effusion. Aorta is unremarkable. Mildto moderate coronary artery calcifications. Pulmonary arteries are ofnormal caliber. Postoperative changes GE junction with hiatal hernia. No lymphadenopathy. Degenerative changes. IMPRESSION: *Bibasilar consolidation, atelectasis, pleural effusions. *Small to moderate pericardial effusion, consider echocardiography. *Please see above for further details. Electronically signed: Keyur Romero MD. us Ruth Kramer MD IMG CT PROCEDURES Final Result * CT abdomen pelvis w IV contrast (02/22/2025 1:01 PM EDT) Anatomical Region Laterality Modality Body, Pelvis, Abdomen Computed T omography 02/22/2025 1:08 PM EDT Impressions 02/22/2025 1:20 PM EDT * Increase in size of bilateral inferior rectus sheath hematomas (left larger than right) with new large hematoma just posterior to the rectus sheath in the extraperitoneal space of the anterior pelvis. Evidence of active bleeding both within the left rectus sheath hematoma and into the larger hematoma posteriorly. This finding was discussed with MICU resident taking care of this patient on 02/22/2025 at 1:14 PM Electronically signed: Daniel Diaz MD. Narrative 02/22/2025 1:20 PM EDT STUDY: ABDOMEN AND PELVIS CT WITH CONTRAST HISTORY: Guarding, diaphoresis, abdominal pain, sepsis evaluation COMPARISON: 02/21/2025 TECHNIQUE: Routine CT abdomen and pelvis was performed with contrast. All CT scans at this facility use dose modulation, iterative reconstruction, and/or weight based dosing when appropriate to reduce radiation dose to as low as reasonably achievable. FINDINGS: Please refer to separate report for chest findings. Cholelithiasis with distention of the gallbladder. The liver, spleen, adrenal glands, pancreas are unremarkable. Mild bilateral renal pelviectasis and mild diffuse ureteral prominence. There is a Tello catheter within a likely decompressed bladder. Redemonstration of bilateral inferior rectus sheath hematomas, each of which have enlarged since previous study (left larger than right. Right-sided hematoma measures approximately 5.8 x 2.7 cm and left-sided hematoma measures approximately 5.9 x 7.7 cm. There is layering high attenuation material within the left rectus sheath hematoma suggestive of active bleeding. This hematoma appears to connect with a much larger hematoma just posterior to the rectus muscles that was not present previously measuring approximately 15.1 x 7.9 cm. This also contains layering higher attenuation material. Postsurgical changes from previous gastric surgery and multiple partial bowel resections. There is mild diffuse prominence of small and large bowel, most likely ileus. Edema and/or hemorrhage in the pelvic sidewall and presacral space. Procedure Note Daniel Diaz MD - 02/22/2025 STUDY: ABDOMEN AND PELVIS CT WITH CONTRAST HISTORY: Guarding, diaphoresis, abdominal pain, sepsis evaluation COMPARISON: 02/21/2025 TECHNIQUE: Routine CT abdomen and pelvis was performed with contrast. AllCT scans at this facility use dose modulation, iterative reconstruction,and/or weight based dosing when appropriate to reduce radiation dose to as lowas reasonably achievable. FINDINGS: Please refer to separate report for chest findings. Cholelithiasis with distention of the gallbladder. The liver, spleen, adrenal glands, pancreasare unremarkable. Mild bilateral renal pelviectasis and mild diffuseureteral prominence. There is a Tello catheter within a likely decompressedbladder. Redemonstration of bilateral inferior rectus sheath hematomas, each ofwhich have enlarged since previous study (left larger than right. Right-sidedhematoma measures approximately 5.8 x 2.7 cm and left-sided hematoma measures approximately 5.9 x 7.7 cm. There is layering high attenuation materialwithin the left rectus sheath hematoma suggestive of active bleeding. Thishematoma appears to connect with a much larger hematoma just posterior to therectus muscles that was not present previously measuring approximately 15.1 x 7.9cm. This also contains layering higher attenuation material. Postsurgicalchanges from previous gastric surgery and multiple partial bowel resections. Thereis mild diffuse prominence of small and large bowel, most likely ileus.Edema and/or hemorrhage in the pelvic sidewall and presacral space. IMPRESSION: *Increase in size of bilateral inferior rectus sheath hematomas (left larger than right) with new large hematoma just posterior to the rectussheath in the extraperitoneal space of the anterior pelvis. Evidence of activebleeding both within the left rectus sheath hematoma and into the larger hematoma posteriorly. This finding was discussed with MICU resident taking care ofthis patient on 02/22/2025 at 1:14 PM Electronically signed: Daniel Diaz MD. us Prabhu Chavez MD IMG CT PROCEDURES Final Result * (ABNORMAL) Protime-INR (02/22/2025 11:49 AM EDT) Protime 17.9(H) 12.3 - 14.8 Seconds 02/22/2025 2:35 PM EDT [facility] ([facility]) INR 1.47(H) 0.90 - 1.10 02/22/2025 2:35 PM EDT [facility] ([facility]) Comment: [facility] RECOMMENDED INR FOR WARFARIN THERAPY CONDITION INR PROPHYLAXIS OF VENOUS THROMBOSIS 2-3 (HIGH-RISK SURGERY) TREATMENT OF VENOUS THROMBOSIS 2-3 TREATMENT OF PULMONARY EMBOLISM 2-3 PREVENTION OF SYSTEMIC EMBOLISM: 2-3 ACUTE MYOCARDIAL INFARCTION TISSUE HEART VALVES VALVULAR HEART DISEASE ATRIAL FIBRILLATION RECURRENT SYSTEMIC EMBOLISM MECHANICAL HEART VALVE 2.5-3.5 FROM: ORAL ANTICOAGULANTS. MECHANISM OF ACTION, CLINICAL EFFECTIVENESS, AND OPTIMAL THERAPEUTIC RANGE. CHEST 1995;108:[id number]. Blood Venous blood specimen / Unknown Arterial Line / Unknown 02/22/2025 11:49 AM EDT 02/22/2025 11:54 AM EDT us Autumn Linder MD LAB BLOOD ORDERABLES Final Resu lt [facility]) [address] [place] [id number] * Red Top (02/22/2025 11:49 AM EDT) Extra Tube Hold for add-ons. 02/22/2025 1:01 PM EDT [facility] ([facility]) Comment:Auto resulted. Blood Venous blood specimen / Unknown 02/22/2025 11:49 AM EDT 02/22/2025 11:55 AM EDT us Ruth Kramer MD LAB BLOOD ORDERABLES Final Resul t Performing Organization Address City/[facility]/ZIP Co de Phone Number [facility]) [address] [place] [phone] * (ABNORMAL) Comprehensive metabolic panel (02/22/2025 11:49 AM EDT) Sodium 139 136 - 145 mmol/L 02/22/2025 12:38 PM EDT [facility] ([facility]) Potassium 4.5 3.5 - 5.1 mmol/L 02/22/2025 12:38 PM EDT [facility] ([facility]) Chloride 104 98 - 107 mmol/L 02/22/2025 12:38 PM EDT [facility] ([facility]) CO2 24 21 - 31 mmol/L 02/22/2025 12:38 PM EDT [facility] ([facility]) Anion Gap 16 7 - 20 mmol/L 02/22/2025 12:38 PM EDT [facility] ([facility]) BUN 27(H) 7 - 25 mg/dL 02/22/2025 12:[address] [facility] ([facility]) Creatinine 1.43(H) 0.70 - 1.30 mg/dL 02/22/2025 12:[address] [facility] ([facility]) BUN/Creatinine Ratio 18.9 01/30 12:[address] [facility] ([facility]) Glucose 134(H) 70 - 100 mg/dL 02/22/2025 12:[address] [facility] ([facility]) Calcium 9.4 8.6 - 10.3 mg/dL 02/22/2025 12:[address] [facility] ([facility]) AST 22 13 - 39 U/L 02/22/2025 12:[address] [facility] ([facility]) ALT (SGPT) 28 7 - 52 U/L 02/22/2025 12:[address] [facility] ([facility]) Alkaline Phosphatase 70 34 - 104 U/L 02/22/2025 12:[address] [facility] ([facility]) Total Protein 6.2 6.0 - 8.3 g/dL 02/22/2025 12:[address] [facility] ([facility]) Albumin 4.0 3.5 - 5.7 g/dL 02/22/2025 12:[address] [facility] ([facility]) Total Bilirubin 5.1(H) 0.3 - 1.0 mg/dL 02/22/2025 12:[address] [facility] ([facility]) eGFR 56.8(L) >60.0 mL/min/1. 73m*2 02/22/2025 12:[address] [facility] ([facility]) Comment:The [facility] s estimated glomerular filtration rate (eGFR) will no longer include consideration of race in its calculation. The [employer] s eGFR Task Force developed new recommendations for the estimation of the glomerular filtration rate in the [place] They recommend immediate implementation of the new equation refit without the race variable in all laboratories because the calculation does not include race. In addition to not including race in the calculation and reporting, it included diversity in its development, and has acceptable performance characteristics and potential consequences that do not disproportionately affect any one group of individuals. Blood Venous blood specimen / Unknown Arterial Line / Unknown 02/22/2025 11:49 AM EDT 02/22/2025 12:01 PM EDT us Ruth Kramer MD LAB BLOOD ORDERABLES Final Resul t [facility] ([facility]) [address] [place] [address] * (ABNORMAL) CBC (02/22/2025 11:49 AM EDT) Auto WBC 11.61(H) 4.00 - 10.60 10*3/uL 02/22/2025 12:16 PM EDT [facility] ([facility]) RBC 4.37 4.20 - 5.70 10*6/uL 02/22/2025 12:16 PM EDT [facility] ([facility]) Hemoglobin 13.5 13.0 - 17.0 g/dL 02/22/2025 12:16 PM EDT [facility] ([facility]) Hematocrit 40.1 39.0 - 50.0 % 02/22/2025 12:16 PM EDT [facility] ([facility]) MCV 91.8 82.0 - 98.0 fL 02/22/2025 12:16 PM EDT [facility] ([facility]) MCH 30.9 27.0 - 33.0 pg 02/22/2025 12:16 PM EDT [facility] ([facility]) MCHC 33.7 32.0 - 35.0 g/dL 02/22/2025 12:16 PM EDT [facility] ([facility]) RDW 15.8(H) 11.5 - 15.0 % 02/22/2025 12:16 PM EDT [facility] ([facility]) Platelets 257 150 - 400 10*3/uL 02/22/2025 12:16 PM EDT [facility] ([facility]) Blood Venous blood specimen / Unknown Arterial Line / Unknown 02/22/2025 11:49 AM EDT 02/22/2025 12:03 PM EDT Ruth Kramer MD LAB BLOOD ORDERABLES Final Resul t Performing Organization Address City/[facility]/ZIP Co de Phone Number [facility] ([facility]) [address] [place] [address] * Anti-Xa (Heparin Level) (02/22/2025 11:49 AM EDT) Anti-Xa (Heparin) 0.55 0.3 - 0.7 IU/mL 02/22/2025 12:18 PM EDT [facility] ([facility]) Comment:Rivaroxaban and Apix aban will interfere with the anti Xa assay used to monitor UFH and LMWH. Blood Venous blood specimen / Unknown Arterial Line / Unknown 02/22/2025 11:49 AM EDT 02/22/2025 11:54 AM EDT us Suleiman Corcoran MD LAB BLOOD ORDERABLES Final Res ult Performing Organization Address City/[facility]/ZIP Co de Phone Number [facility] ([facility]) [address] [place], [place] [id number] * (ABNORMAL) POCT glucose meter (02/22/2025 11:34 AM EDT) Glucose POC 125(H) 70 - 105 mg/dL 02/22/2025 11:44 AM EDT [facility] ([facility]) Comment:[email or web address] Blood Capillary blood specimen / Unknown 02/22/2025 11:34 AM EDT 02/22/2025 11:44 AM EDT Narrative [facility] ([facility]) - 02/22/2025 11:44 AM EDT Waived Testing in the ED is performed under the ED CLIA certificate #[id number]. Ruth Kramer MD LAB BLOOD ORDERABLES Final Resul t Performing Organization Address City/[facility]/ZIP Co de Phone Number [facility] ([facility]) [address] [place], [place] [id number] * Lactic acid with 4 hour reflex (02/22/2025 9:47 AM EDT) Lactate 1.6 0.5 - 2.2 mmol/L 02/22/2025 10:30 AM EDT [facility] ([facility]) Blood Venous blood specimen / Unknown Venipuncture / Unknown 02/22/2025 9:47 AM EDT 02/22/2025 9:51 AM EDT us Prabhu Chavez MD LAB BLOOD ORDERABLES Final Resul t Performing Organization Address City/[facility]/ZIP Co de Phone Number [facility]) [address] [place] [address] * Blood culture, peripheral #2 (02/22/2025 9:46 AM EDT) Blood Culture No growth at 5 days [place] 02/27/2025 10:01 AM EDT [facility]) Blood Venous blood specimen / Unknown Venipuncture / Unknown 02/22/2025 9:46 AM EDT 02/22/2025 9:51 AM EDT us Prabhu Chavez MD LAB MICROBIOLOGY - GENERAL ORDER LAURA Final Result Performing Organization Address City/[facility] Co de Phone Number [facility]) [address] [place] [address] * Blood culture, peripheral #1 (02/22/2025 9:46 AM EDT) Blood Culture No growth at 5 days [place] 02/27/2025 10:01 AM EDT [facility]) Blood Venous blood specimen / Unknown Venipuncture / Unknown 02/22/2025 9:46 AM EDT 02/22/2025 9:51 AM EDT us Prabhu Chavez MD LAB MICROBIOLOGY - GENERAL ORDER LAURA Final Result Performing Organization Address City/[facility]/ZIP Co de Phone Number [facility] ([facility]) [address] [place] [address] * Prepare RBC: 1 Units (02/22/2025 7:31 AM EDT) PRODUCT CODE [id number] [facility] Unit Number [id number] [facility] BLOOD [facility] Unit ABO O [facility] Unit Rh POS [facility] Crossmatch Interpretation COMP [facility] Dispense Status TR [facility] Blood Expiration Date [id number] [facility] Product Blood Type 5100 [facility]LO[facility] Unit Volume 300 mL [facility] BLO OD BANK Other 02/22/2025 7:31 AM EDT us Ruth Kramer MD BLOOD BANK PRODUCT ORDERABLES Fi nal Result Performing Organization Address City/[facility]/ZIP Co de Phone Number [facility] BLOOD [facility] * ECG 12 lead (02/22/2025 7:16 AM EDT) Ventricular Rate 138 BPM GE MUSE QRS DURATION 166 ms GE MUSE QT Interval 364 ms GE MUSE QTC CALCULATION(BAZE TT) 551 ms GE MUSE R-Mos[place] -18 degrees GE MUSE T Wave [place] 151 degrees GE MUSE 02/22/2025 7:05 AM EDT 02/22/2025 9:36 AM EDT Impressions GE MUSE - 02/22/2025 9:36 AM EDT Atrial fibrillation with rapid ventricular response Left bundle branch block Abnormal ECG Confirmed by Rosalia MOULTON SAMER J. ([id number]) on 02/22/2025 9:36:51 AM Narrative Procedure Note Hugo Moulton MD - 02/22/2025 IMPRESSION: Atrial fibrillation with rapid ventricular response Left bundle branch block Abnormal ECG Confirmed by Rosalia MOULTON SAMER J. ([id number]) on 02/22/2025 9:36:51 AM us Suleiman Corcoran MD ECG ORDERABLES Final Result GE MUSE * Hemoglobin and hematocrit, blood (02/22/2025 7:07 AM EDT) Hemoglobin 14.5 13.0 - 17.0 g/dL 02/22/2025 7:43 AM EDT [facility] ([facility]) Hematocrit 42.9 39.0 - 50.0 % 02/22/2025 7:43 AM EDT [facility] ([facility]) Blood Venous blood specimen / Unknown Venipuncture / Unknown 02/22/2025 7:07 AM EDT 02/22/2025 7:29 AM EDT us Suleiman Corcoran MD LAB BLOOD ORDERABLES Final Res ult [facility]) [address] [place] [address] * Lactic acid with 4 hour reflex (02/22/2025 7:07 AM EDT) Lactate 2.2 0.5 - 2.2 mmol/L 02/22/2025 7:45 AM EDT [facility] ([facility]) Blood Venous blood specimen / Unknown Venipuncture / Unknown 02/22/2025 7:07 AM EDT 02/22/2025 7:11 AM EDT us Dell Handley MD LAB BLOOD ORDERABLES Final Re sult [facility]) [address] [place], [place] [phone] * Type and screen (02/22/2025 7:07 AM EDT) ABO Grouping O 02/22/2025 8:29 AM EDT [facility] BLOOD [facility] Rh Type POS 02/22/2025 8:29 AM EDT [facility] B[facility] Ab Scrn NEG 02/22/2025 8:29 AM EDT [facility] Blood Venous blood specimen / Unknown Venipuncture / Unknown 02/22/2025 7:07 AM EDT 02/22/2025 7:11 AM EDT us Suleiman Corcoran MD LAB BLOOD BANK TEST ORDERABLES Final Result [facility] B[facility]OD [facility] * (ABNORMAL) Hepatic function panel (02/22/2025 7:00 AM EDT) Total Bilirubin 4.8(H) 0.3 - 1.0 mg/dL 02/22/2025 11:47 AM EDT [facility] ([facility]) Bilirubin, Direct 1.1(H) 0 - 0.2 mg/dL 02/22/2025 11:47 AM EDT [facility] ([facility]) Alkaline Phosphatase 72 34 - 104 U/L 02/22/2025 11:47 AM EDT [facility] ([facility]) AST 22 13 - 39 U/L 02/22/2025 11:47 AM EDT [facility]) ALT (SGPT) 30 7 - 52 U/L 02/22/2025 11:47 AM EDT [facility] ([facility]) Total Protein 6.1 6.0 - 8.3 g/dL 02/22/2025 11:47 AM EDT [facility] ([facility]) Albumin 4.0 3.5 - 5.7 g/dL 02/22/2025 11:47 AM EDT [facility] ([facility]) Blood Venous blood specimen / Unknown 02/22/2025 7:00 AM EDT 02/22/2025 7:12 AM EDT us Ruth Kramer MD LAB BLOOD ORDERABLES Final Resul t [facility]) [address] [place] [address] * Light Green Top (02/22/2025 7:00 AM EDT) Extra Tube Hold for add-ons. 02/22/2025 9:01 AM EDT [facility] ([facility]) Comment:Auto resulted. Blood Venous blood specimen / Unknown 02/22/2025 7:00 AM EDT 02/22/2025 7:12 AM EDT us Suleiman Corcoran MD LAB BLOOD ORDERABLES Final Res ult [facility] ([facility]) [address] [place] [address] * (ABNORMAL) CBC auto differential (02/22/2025 6:58 AM EDT) Auto WBC 10.73(H) 4.00 - 10.60 10*3/uL 02/22/2025 7:10 AM EDT [facility] ([facility]) RBC 4.55 4.20 - 5.70 10*6/uL 02/22/2025 7:10 AM EDT [facility] ([facility]) Hemoglobin 14.0 13.0 - 17.0 g/dL 02/22/2025 7:10 AM EDT [facility] [facility] ([facility]) Hematocrit 42.5 39.0 - 50.0 % 02/22/2025 7:10 AM EDT [facility] ([facility]) MCV 93.4 82.0 - 98.0 fL 02/22/2025 7:10 AM EDT [facility] ([facility]) MCH 30.8 27.0 - 33.0 pg 02/22/2025 7:10 AM EDT [facility] ([facility]) MCHC 32.9 32.0 - 35.0 g/dL 02/22/2025 7:10 AM EDT [facility] ([facility]) RDW 15.9(H) 11.5 - 15.0 % 02/22/2025 7:10 AM EDT [facility] ([facility]) Neutrophils % 81.9(H) 40.0 - 72.0 % 02/22/2025 7:10 AM EDT [facility] ([facility]) Lymphocytes % 10.6(L) 20.0 - 45.0 % 02/22/2025 7:10 AM EDT [facility] ([facility]) Monocytes % 6.8 5.0 - 12.0 % 02/22/2025 7:10 AM EDT [facility] ([facility]) Eosinophils % 0.0 0.0 - 6.0 % 02/22/2025 7:10 AM EDT [facility] ([facility]) Basophils % 0.2 0.0 - 1.0 % 02/22/2025 7:10 AM EDT [facility] ([facility]) Neutrophils Absolute 8.79(H) 1.60 - 7.60 10*3/uL 02/22/2025 7:10 AM EDT [facility] ([facility]) Lymphocytes Absolute 1.14(L) 1.20 - 4.00 10*3/uL 02/22/2025 7:10 AM EDT [facility] ([facility]) Monocytes Absolute 0.73 0.10 - 1.00 10*3/uL 02/22/2025 7:10 AM EDT [facility] ([facility]) Eosinophils Absolute 0.00 0.00 - 0.50 10*3/uL 02/22/2025 7:10 AM EDT [facility] ([facility]) Basophils Absolute 0.02 0.00 - 0.20 10*3/uL 02/22/2025 7:10 AM EDT [facility] ([facility]) Platelets 224 150 - 400 10*3/uL 02/22/2025 7:10 AM EDT [facility] ([facility]) nRBC % 0.0 0 % 02/22/2025 7:10 AM EDT [facility] ([facility]) Immature Granulocytes % 0.5 0.0 - 1.0 % 02/22/2025 7:10 AM EDT [facility] ([facility]) Immature Granulocytes Absolute 0.05 0.00 - 0.20 10*3/uL 02/22/2025 7:10 AM EDT [facility] ([facility]) Blood Venous blood specimen / Unknown Venipuncture / Unknown 02/22/2025 6:58 AM EDT 02/22/2025 7:10 AM EDT us Suleiman Corcoran MD LAB BLOOD ORDERABLES Final Res ult [facility]) [address] [place] [address] * (ABNORMAL) Magnesium (02/22/2025 6:58 AM EDT) [facility] Magnesium 1.8(L) 1.9 - 2.7 mg/dL 02/22/2025 7:30 AM EDT [facility] ([facility]) Blood Venous blood specimen / Unknown Venipuncture / Unknown 02/22/2025 6:58 AM EDT 02/22/2025 7:30 AM EDT Suleiman Corcoran MD LAB BLOOD ORDERABLES Final Res ult [facility]) [address] [place] [phone] * (ABNORMAL) High Sensitivity Troponin I (02/22/2025 6:58 AM EDT) [facility] High Sensitivity Troponin I 27(H) <20 ng/L 02/22/2025 7:30 AM EDT [facility] ([facility]) Blood Venous blood specimen / Unknown Venipuncture / Unknown 02/22/2025 6:58 AM EDT 02/22/2025 7:30 AM EDT Suleiman Corcoran MD LAB BLOOD ORDERABLES Final Res ult [facility]) [address] [place] [phone] * (ABNORMAL) POCT glucose meter (02/22/2025 6:13 AM EDT) [facility] Glucose POC 129(H) 70 - 105 mg/dL 02/22/2025 6:33 AM EDT [facility] ([facility]) Comment:blongor Blood Capillary blood specimen / Unknown 02/22/2025 6:13 AM EDT 02/22/2025 6:33 AM EDT Narrative [facility] ([facility]) - 02/22/2025 6:33 AM EDT Waived Testing in the ED is performed under the ED CLIA certificate #[id number]. Suleiman Corcoran MD LAB BLOOD ORDERABLES Final Res ult [facility] ([facility]) [address] [place] [address] * (ABNORMAL) Anti-Xa (Heparin Level) (02/22/2025 5:08 AM EDT) Anti-Xa (Heparin) 0.71(H) 0.3 - 0.7 IU/mL 02/22/2025 5:58 AM EDT [facility] ([facility]) Comment:Rivaroxaban and Apix aban will interfere with the anti Xa assay used to monitor UFH and LMWH. Blood Venous blood specimen / Unknown Venipuncture / Unknown 02/22/2025 5:08 AM EDT 02/22/2025 5:14 AM EDT Suleiman Corcoran MD LAB BLOOD ORDERABLES Final Res ult Performing Organization Address [facility]/ZIP Co de Phone Number [facility] ([facility]) [address] [place] [address] * (ABNORMAL) CBC (02/22/2025 5:00 AM EDT) Auto WBC 12.27(H) 4.00 - 10.60 10*3/uL 02/22/2025 6:48 AM EDT [facility] ([facility]) RBC 4.92 4.20 - 5.70 10*6/uL 02/22/2025 6:48 AM EDT [facility] ([facility]) Hemoglobin 15.4 13.0 - 17.0 g/dL 02/22/2025 6:48 AM EDT [facility] ([facility]) Hematocrit 45.0 39.0 - 50.0 % 02/22/2025 6:48 AM EDT [facility] ([facility]) MCV 91.5 82.0 - 98.0 fL 02/22/2025 6:48 AM EDT [facility] ([facility]) MCH 31.3 27.0 - 33.0 pg 02/22/2025 6:48 AM EDT [facility] ([facility]) MCHC 34.2 32.0 - 35.0 g/dL 02/22/2025 6:48 AM EDT [facility] ([facility]) RDW 15.9(H) 11.5 - 15.0 % 02/22/2025 6:48 AM EDT [facility] ([facility]) Platelets 242 150 - 400 10*3/uL 02/22/2025 6:48 AM EDT [facility] ([facility]) Blood Venous blood specimen / Unknown 02/22/2025 5:00 AM EDT 02/22/2025 5:18 AM EDT us Suleiman Corcoran MD LAB BLOOD ORDERABLES Final Res ult [facility]) [address] [place] [address] * (ABNORMAL) High Sensitivity Troponin I (02/22/2025 5:00 AM EDT) Pathologist [facility] High Sensitivity Troponin I 31(H) <20 ng/L 02/22/2025 6:54 AM EDT [facility]) Blood Venous blood specimen / Unknown 02/22/2025 5:00 AM EDT 02/22/2025 5:18 AM EDT us Suleiman Corcoran MD LAB BLOOD ORDERABLES Final Res ult [facility]) [address] [place] [address] * Magnesium (02/22/2025 5:00 AM EDT) Magnesium 2.0 1.9 - 2.7 mg/dL 02/22/2025 6:49 AM EDT [facility]) Blood Venous blood specimen / Unknown 02/22/2025 5:00 AM EDT 02/22/2025 5:18 AM EDT us Suleiman Corcoran MD LAB BLOOD ORDERABLES Final Res ult [facility]) [address] [place] [address] * Lavender Top (02/22/2025 5:00 AM EDT) Extra Tube Hold for add-ons. 02/22/2025 7:01 AM EDT [facility] ([facility]) Comment:Auto resulted. Blood Venous blood specimen / Unknown 02/22/2025 5:00 AM EDT 02/22/2025 5:18 AM EDT Suleiman Corcoran MD LAB BLOOD ORDERABLES Final Res ult Performing Organization Address City/[facility]/ZIP Co de Phone Number [facility]) [address] [place] [address] * Light Green Top (02/22/2025 5:00 AM EDT) Extra Tube Hold for add-ons. 02/22/2025 7:01 AM EDT [facility]) Comment:Auto resulted. Blood Venous blood specimen / Unknown 02/22/2025 5:00 AM EDT 02/22/2025 5:18 AM EDT Suleiman Corcoran MD LAB BLOOD ORDERABLES Final Res ult Performing Organization Address City/[facility]/ZIP Co de Phone Number [facility]) [address] [place] [address] * CT abdomen pelvis wo IV contrast (02/21/2025 11:54 AM EDT) Anatomical Region Laterality Modality Body, Pelvis, Abdomen Computed T omography 02/21/2025 12:1 0 PM EDT Impressions 02/21/2025 12:19 PM EDT Findings/impression: CT abdomen: There are no calcifications in the kidneys, ureters or urinary bladder. No signs of obstruction. No free air or free fluid. No enlarged lymph nodes. No abdominal aortic aneurysm.. Bilateral pleural effusions are appreciated. Small in size pericardial effusion. The cardiac size appears satisfactory and normal. Punctate calcifications are noted associated with the mitral and aortic valves. Prior gastric bypass type surgery. Favored is gastrojejunostomy. Please correlate with operative note however. Multiple large gallstones are noted. No gallbladder wall thickening or surrounding fluid collections are appreciated. 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 These are also seen in the liver. No acute process within the constraints of a noncontrast study is seen in the liver, spleen or pancreas. Adrenal glands are normal CT pelvis: Multiple loops of bowel are anterior position. These may represent adhesed loops of small and large bowel to the peritoneal reflection. There is no imaging evidence to suspect bowel obstruction. Small amount of free fluid in the pelvis is noted. Urinary bladder is not very distended. Assessment is hampered. Higher attenuation in the enlarged left rectus abdominal muscle is appreciated. The right and left rectus abdominal muscles are abnormal and contain hematomas. The left is larger in size. Follow-up will be required. No bowel containing hernia. Lumbar spine is free of any acute process. All CT scans at this facility use dose modulation, iterative reconstruction, and/or weight based dosing when appropriate to reduce radiation dose to as low as reasonably achievable. Electronically signed: Susana Miller. Narrative 02/21/2025 12:19 PM EDT History:Severe groin pain. Lower abdomen pain. Left lower quadrant pain. CT abdomen and pelvis without contrast Comparison:None Technique: Axial images to the abdomen and pelvis were obtained without contrast. Subsequently sagittal and coronal images were submitted to PACS. Automated exposure control was used Procedure Note Susana Miller MD - 02/21/2025 History:Severe groin pain. Lower abdomen pain. Left lower quadrant pain. CT abdomen and pelvis without contrast Comparison:None Technique: Axial images to the abdomen and pelvis were obtained without contrast. Subsequently sagittal and coronal images were submitted to PACS. Automated exposure control was used IMPRESSION: Findings/impression: CT abdomen: There are no calcifications in the kidneys, ureters or urinary bladder. Nosigns of obstruction. No free air or free fluid. No enlarged lymph nodes. Noabdominal aortic aneurysm.. Bilateral pleural effusions are appreciated. Small in size pericardialeffusion. The cardiac size appears satisfactory and normal. Punctate calcificationsare noted associated with the mitral and aortic valves. Prior gastric bypass type surgery. Favored is gastrojejunostomy. Please correlate with operative note however. Multiple large gallstones are noted. No gallbladder wall thickening or surrounding fluid collections are appreciated. Punctate calcifications inthe spleen represents sequela of remote Mancia infection. These are alsoseen in the liver. No acute process within the constraints of a noncontrast studyis seen in the liver, spleen or pancreas. Adrenal glands are normal CT pelvis: Multiple loops of bowel are anterior position. These may representadhesed loops of small and large bowel to the peritoneal reflection. There is noimaging evidence to suspect bowel obstruction. Small amount of free fluid in the pelvis is noted. Urinary bladder is notvery distended. Assessment is hampered. Higher attenuation in the enlarged left rectus abdominal muscle isappreciated. The right and left rectus abdominal muscles are abnormal and containhematomas. The left is larger in size. Follow-up will be required. No bowelcontaining hernia. Lumbar spine is free of any acute process. All CT scans at this facility use dose modulation, iterativereconstruction, and/or weight based dosing when appropriate to reduce radiation dose to aslow as reasonably achievable. Electronically signed: Susana Miller. us Suleiman Corcoran MD [facility] [place] PROCEDURES Final Result * Anti-Xa (Heparin Level) (02/21/2025 3:55 AM EDT) Anti-Xa (Heparin) 0.57 0.3 - 0.7 IU/mL 02/21/2025 4:37 AM EDT [facility] ([facility] Comment:Rivaroxaban and Apix aban will interfere with the anti Xa assay used to monitor UFH and LMWH. Blood Venous blood specimen / Unknown Venipuncture / Unknown 02/21/2025 3:55 AM EDT 02/21/2025 4:05 AM EDT us Kamran Del Valle MD LAB BLOOD ORDERABLES Final Resul t Performing Organization Address City/[facility]/ZIP Co de Phone Number [facility]) [address] [place] [address] * (ABNORMAL) APTT (02/21/2025 3:55 AM EDT) aPTT 117.9(H) 25.0 - 35.0 Seconds 02/21/2025 4:38 AM EDT [facility] ([facility]) Comment:Clinical significanc e of the APTT is questionable in the presence of heparin. Blood Venous blood specimen / Unknown Venipuncture / Unknown 02/21/2025 3:55 AM EDT 02/21/2025 4:05 AM EDT us Kamran Del Valle MD LAB BLOOD ORDERABLES Final Resul t Performing Organization Address [facility] Co de Phone Number [facility] ([facility]) [address] [place] [phone] * (ABNORMAL) CBC (02/21/2025 3:55 AM EDT) Pathologist [facility] Auto WBC 7.24 4.00 - 10.60 10*3/uL 02/21/2025 4:31 AM EDT [facility] ([facility]) RBC 4.97 4.20 - 5.70 10*6/uL 02/21/2025 4:31 AM EDT [facility] ([facility]) Hemoglobin 15.4 13.0 - 17.0 g/dL 02/21/2025 4:31 AM EDT [facility] ([facility]) Hematocrit 44.4 39.0 - 50.0 % 02/21/2025 4:31 AM EDT [facility] ([facility]) MCV 89.3 82.0 - 98.0 fL 02/21/2025 4:31 AM EDT [facility] ([facility]) MCH 31.0 27.0 - 33.0 pg 02/21/2025 4:31 AM EDT [facility] ([facility]) MCHC 34.7 32.0 - 35.0 g/dL 02/21/2025 4:31 AM EDT [facility] ([facility]) RDW 15.2(H) 11.5 - 15.0 % 02/21/2025 4:31 AM EDT [facility] ([facility]) Platelets 177 150 - 400 10*3/uL 02/21/2025 4:31 AM EDT [facility] ([facility]) Blood Venous blood specimen / Unknown Venipuncture / Unknown 02/21/2025 3:55 AM EDT 02/21/2025 4:08 AM EDT us Carol Carter [facility] LAB BLOOD ORDERABLES Final Resu lt [facility] ([facility]) [address] [place] [id number] * Basic metabolic panel (02/21/2025 3:55 AM EDT) Sodium 139 136 - 145 mmol/L 02/21/2025 4:37 AM EDT [facility] ([facility]) Potassium 4.0 3.5 - 5.1 mmol/L 02/21/2025 4:37 AM EDT [facility] ([facility]) Chloride 104 98 - 107 mmol/L 02/21/2025 4:37 AM EDT [facility] ([facility]) CO2 26 21 - 31 mmol/L 02/21/2025 4:37 AM EDT [facility] ([facility]) BUN 16 7 - 25 mg/dL 02/21/2025 4:37 AM EDT [facility] ([facility]) Creatinine 0.99 0.70 - 1.30 mg/dL 02/21/2025 4:37 AM EDT [facility] ([facility]) Glucose 86 70 - 100 mg/dL 02/21/2025 4:37 AM EDT [facility] ([facility]) Calcium 8.9 8.6 - 10.3 mg/dL 02/21/2025 4:37 AM EDT [facility] ([facility]) Anion Gap 13 7 - 20 mmol/L 02/21/2025 4:37 AM EDT [facility] ([facility]) eGFR 88.3 >60.0 mL/min/1. 73m*2 02/21/2025 4:37 AM EDT [facility] ([facility]) Comment:The [facility] s estimated glomerular filtration rate (eGFR) will no longer include consideration of race in its calculation. The [employer] s eGFR Task Force developed new recommendations for the estimation of the glomerular filtration rate in the [place] They recommend immediate implementation of the new equation refit without the race variable in all laboratories because the calculation does not include race. In addition to not including race in the calculation and reporting, it included diversity in its development, and has acceptable performance characteristics and potential consequences that do not disproportionately affect any one group of individuals. BUN/Creatinine Ratio 16.2 01/30 4:37 AM EDT [facility] ([facility]) Blood Venous blood specimen / Unknown Venipuncture / Unknown 02/21/2025 3:55 AM EDT 02/21/2025 4:08 AM EDT Kamran Del Valle MD LAB BLOOD ORDERABLES Final Resul t Performing Organization Address City/[facility]/ZIP Co de Phone Number [facility]) [address] [place] [phone] * Anti-Xa (Heparin Level) (02/20/2025 11:40 PM EDT) Anti-Xa (Heparin) 0.55 0.3 - 0.7 IU/mL 02/21/2025 12:39 AM EDT [facility] ([facility]) Comment:Rivaroxaban and Apix aban will interfere with the anti Xa assay used to monitor UFH and LMWH. Blood Venous blood specimen / Unknown Venipuncture / Unknown 02/20/2025 11:40 PM EDT 02/21/2025 12:18 AM EDT us Kamran Del Valle MD LAB BLOOD ORDERABLES Final Resul t Performing Organization Address City/[facility]/ZIP Co de Phone Number [facility]) [address] [place] [address] * Anti-Xa (Heparin Level) (02/20/2025 5:38 PM EDT) Anti-Xa (Heparin) 0.61 0.3 - 0.7 IU/mL 02/20/2025 6:08 PM EDT [facility] ([facility]) Comment:Rivaroxaban and Apix aban will interfere with the anti Xa assay used to monitor UFH and LMWH. Blood Venous blood specimen / Unknown Venipuncture / Unknown 02/20/2025 5:38 PM EDT 02/20/2025 5:42 PM EDT us Kamran Del Valle MD LAB BLOOD ORDERABLES Final Resul t [facility] ([facility]) [address] [place] [address] * (ABNORMAL) Anti-Xa (Heparin Level) (02/20/2025 9:39 AM EDT) Anti-Xa (Heparin) 0.84(H) 0.3 - 0.7 IU/mL 02/20/2025 10:07 AM EDT [facility] ([facility]) Comment:Rivaroxaban and Apix aban will interfere with the anti Xa assay used to monitor UFH and LMWH. Blood Venous blood specimen / Unknown Venipuncture / Unknown 02/20/2025 9:39 AM EDT 02/20/2025 9:45 AM EDT us Kamran Del Valle MD LAB BLOOD ORDERABLES Final Resul t [facility] ([facility]) [address] [place] [address] * (ABNORMAL) APTT (02/20/2025 9:39 AM EDT) aPTT 169.6(HH) 25.0 - 35.0 Seconds 02/20/2025 10:13 AM EDT [facility] ([facility]) Comment:Clinical significanc e of the APTT is questionable in the presence of heparin. Blood Venous blood specimen / Unknown Venipuncture / Unknown 02/20/2025 9:39 AM EDT 02/20/2025 9:45 AM EDT us Kamran Del Valle MD LAB BLOOD ORDERABLES Final Resul t Performing Organization Address City/[facility]/ZIP Co de Phone Number [facility] ([facility]) [address] [place] [phone] * Hemoglobin and hematocrit, blood (02/20/2025 4:16 AM EDT) Hemoglobin 14.8 13.0 - 17.0 g/dL 02/20/2025 9:28 AM EDT [facility] ([facility]) Hematocrit 42.9 39.0 - 50.0 % 02/20/2025 9:28 AM EDT [facility] ([facility]) Blood Venous blood specimen / Unknown Venipuncture / Unknown 02/20/2025 4:16 AM EDT 02/20/2025 9:20 AM EDT us Kamran Del Valle MD LAB BLOOD ORDERABLES Final Resul t Performing Organization Address [facility] Co de Phone Number [facility] ([facility]) [address] [place] [phone] * (ABNORMAL) Basic metabolic panel (02/20/2025 4:16 AM EDT) Sodium 140 136 - 145 mmol/L 02/20/2025 9:43 AM EDT [facility] ([facility]) Potassium 3.8 3.5 - 5.1 mmol/L 02/20/2025 9:43 AM EDT [facility] ([facility]) Chloride 105 98 - 107 mmol/L 02/20/2025 9:43 AM EDT [facility] ([facility]) CO2 25 21 - 31 mmol/L 02/20/2025 9:43 AM EDT [facility] ([facility]) BUN 16 7 - 25 mg/dL 02/20/2025 9:43 AM EDT [facility] ([facility]) Creatinine 0.99 0.70 - 1.30 mg/dL 02/20/2025 9:43 AM EDT [facility] ([facility]) Glucose 59(L) 70 - 100 mg/dL 02/20/2025 9:43 AM EDT [facility] ([facility]) Calcium 8.7 8.6 - 10.3 mg/dL 02/20/2025 9:43 AM EDT [facility] ([facility]) Anion Gap 14 7 - 20 mmol/L 02/20/2025 9:43 AM EDT [facility] ([facility]) eGFR 88.3 >60.0 mL/min/1. 73m*2 02/20/2025 9:43 AM EDT [facility] ([facility]) Comment:The [facility] s estimated glomerular filtration rate (eGFR) will no longer include consideration of race in its calculation. The [employer] s eGFR Task Force developed new recommendations for the estimation of the glomerular filtration rate in the [place] They recommend immediate implementation of the new equation refit without the race variable in all laboratories because the calculation does not include race. In addition to not including race in the calculation and reporting, it included diversity in its development, and has acceptable performance characteristics and potential consequences that do not disproportionately affect any one group of individuals. BUN/Creatinine Ratio 16.2 01/30 9:43 AM EDT [facility] ([facility]) Blood Venous blood specimen / Unknown Venipuncture / Unknown 02/20/2025 4:16 AM EDT 02/20/2025 9:20 AM EDT us Kamran Del Valle MD LAB BLOOD ORDERABLES Final Resul t [facility] ([facility]) [address] [place], [place] [phone] * (ABNORMAL) High Sensitivity Troponin I (02/19/2025 6:03 PM EDT) High Sensitivity Troponin I 30(H) <20 ng/L 02/19/2025 7:09 PM EDT [facility] ([facility]) Blood Venous blood specimen / Unknown Venipuncture / Unknown 02/19/2025 6:03 PM EDT 02/19/2025 6:41 PM EDT Gabriele Nick MD LAB BLOOD ORDERABLES Final Resul t Performing Organization Address City/[facility]/ZIP Co de Phone Number [facility]) [address] [place] [address] * (ABNORMAL) High Sensitivity Troponin I (02/19/2025 11:06 AM EDT) High Sensitivity Troponin I 29(H) <20 ng/L 02/19/2025 12:11 PM EDT [facility]) Blood Venous blood specimen / Unknown Venipuncture / Unknown 02/19/2025 11:06 AM EDT 02/19/2025 11:41 AM EDT Gabriele Nick MD LAB BLOOD ORDERABLES Final Resul t Performing Organization Address City/[facility]/ZIP Co de Phone Number [facility]) [address] [place] [phone] * ECG 12 lead (02/19/2025 9:30 AM EDT) Ventricular Rate 104 BPM GE MUSE QRS DURATION 182 ms GE MUSE QT Interval 334 ms GE MUSE QTC CALCULATION(BAZE TT) 439 ms GE MUSE R-Mos[place] -41 degrees GE MUSE T Wave [place] 144 degrees GE MUSE 02/19/2025 9:22 AM EDT 02/19/2025 9:31 AM EDT Impressions GE MUSE - 02/19/2025 9:31 AM EDT Atrial fibrillation with rapid ventricular response Left axis deviation Left bundle branch block Abnormal ECG When compared with ECG of 18-FEB-2025 19:10, No significant change was found Confirmed by MD KULDEEP, EHAB ([id number]) on 02/19/2025 9:31:28 AM Narrative Procedure Note Megan Rosenberg MD - 02/19/2025 IMPRESSION: Atrial fibrillation with rapid ventricular response Left axis deviation Left bundle branch block Abnormal ECG When compared with ECG of 18-FEB-2025 19:10, No significant change was found Confirmed by MD KULDEEP, MEGAN ([id number]) on 02/19/2025 9:31:28 AM Dylan Matthew MD ECG ORDERABLES Final Resu lt Performing Organization Address [facility] de Phone Number GE MUSE * (ABNORMAL) APTT (02/19/2025 8:19 AM EDT) aPTT 154.5(HH) 25.0 - 35.0 Seconds 02/19/2025 9:00 AM EDT [facility] [facility] Comment:Clinical significanc e of the APTT is questionable in the presence of heparin. Blood Venous blood specimen / Unknown Venipuncture / Unknown 02/19/2025 8:19 AM EDT 02/19/2025 8:19 AM EDT Gabriele Nick MD LAB BLOOD ORDERABLES Final Resul t Performing Organization Address [facility] de Phone Number [facility] ([facility]) [address] [place] [address] * Anti-Xa (Heparin Level) (02/19/2025 8:19 AM EDT) Anti-Xa (Heparin) 0.54 0.3 - 0.7 IU/mL 02/19/2025 8:41 AM EDT [facility] ([facility]) Comment:Rivaroxaban and Apix aban will interfere with the anti Xa assay used to monitor UFH and LMWH. Blood Venous blood specimen / Unknown Venipuncture / Unknown 02/19/2025 8:19 AM EDT 02/19/2025 8:19 AM EDT Gabriele Nick MD LAB BLOOD ORDERABLES Final Resul t Performing Organization Address [facility]/ZIP Co de Phone Number [facility]) [address] [place], [place] [phone] * Magnesium (02/19/2025 4:18 AM EDT) [facility] Magnesium 1.9 1.9 - 2.7 mg/dL 02/19/2025 8:28 AM EDT [facility] ([facility]) Blood Venous blood specimen / Unknown Venipuncture / Unknown 02/19/2025 4:18 AM EDT 02/19/2025 5:28 AM EDT us Kamran Del Valle MD LAB BLOOD ORDERABLES Final Resul t Performing Organization Address [facility]/ZIP Co de Phone Number [facility]) [address] [place] [phone] * (ABNORMAL) High Sensitivity Troponin I (02/19/2025 4:18 AM EDT) [facility] High Sensitivity Troponin I 30(H) <20 ng/L 02/19/2025 6:17 AM EDT [facility]) Blood Venous blood specimen / Unknown Venipuncture / Unknown 02/19/2025 4:18 AM EDT 02/19/2025 5:28 AM EDT us Gabriele Nick MD LAB BLOOD ORDERABLES Final Resul t Performing Organization Address City/[facility]/ZIP Co de Phone Number [facility]) [address] [place] [phone] * CBC (02/19/2025 4:18 AM EDT) [facility] Auto WBC 5.92 4.00 - 10.60 10*3/uL 02/19/2025 5:45 AM EDT [facility]) RBC 4.45 4.20 - 5.70 10*6/uL 02/19/2025 5:45 AM EDT [facility] ([facility]) Hemoglobin 13.9 13.0 - 17.0 g/dL 02/19/2025 5:45 AM EDT [facility] ([facility]) Hematocrit 40.9 39.0 - 50.0 % 02/19/2025 5:45 AM EDT [facility] ([facility]) MCV 91.9 82.0 - 98.0 fL 02/19/2025 5:45 AM EDT [facility] ([facility]) MCH 31.2 27.0 - 33.0 pg 02/19/2025 5:45 AM EDT [facility] ([facility]) MCHC 34.0 32.0 - 35.0 g/dL 02/19/2025 5:45 AM EDT [facility] ([facility]) RDW 15.0 11.5 - 15.0 % 02/19/2025 5:45 AM EDT [facility] ([facility]) Platelets 165 150 - 400 10*3/uL 02/19/2025 5:45 AM EDT [facility] ([facility]) Blood Venous blood specimen / Unknown Venipuncture / Unknown 02/19/2025 4:18 AM EDT 02/19/2025 5:28 AM EDT us Carol Carter [facility] LAB BLOOD ORDERABLES Final Resu lt [facility] ([facility]) [address] [place] [address] * (ABNORMAL) Basic metabolic panel (02/19/2025 4:18 AM EDT) Sodium 141 136 - 145 mmol/L 02/19/2025 6:17 AM EDT [facility] ([facility]) Potassium 3.8 3.5 - 5.1 mmol/L 02/19/2025 6:17 AM EDT [facility] ([facility]) Chloride 108(H) 98 - 107 mmol/L 02/19/2025 6:17 AM EDT [facility] ([facility]) CO2 25 21 - 31 mmol/L 02/19/2025 6:17 AM EDT [facility] ([facility]) BUN 19 7 - 25 mg/dL 02/19/2025 6:17 AM EDT [facility] ([facility]) Creatinine 1.07 0.70 - 1.30 mg/dL 02/19/2025 6:17 AM EDT [facility] ([facility]) Glucose 75 70 - 100 mg/dL 02/19/2025 6:17 AM EDT [facility] ([facility]) Calcium 8.3(L) 8.6 - 10.3 mg/dL 02/19/2025 6:17 AM EDT [facility] ([facility]) Anion Gap 12 7 - 20 mmol/L 02/19/2025 6:17 AM EDT [facility] ([facility]) eGFR 80.4 >60.0 mL/min/1. 73m*2 02/19/2025 6:17 AM EDT [facility] ([facility]) Comment:The [facility] s estimated glomerular filtration rate (eGFR) will no longer include consideration of race in its calculation. The [employer] s eGFR Task Force developed new recommendations for the estimation of the glomerular filtration rate in the [place] They recommend immediate implementation of the new equation refit without the race variable in all laboratories because the calculation does not include race. In addition to not including race in the calculation and reporting, it included diversity in its development, and has acceptable performance characteristics and potential consequences that do not disproportionately affect any one group of individuals. BUN/Creatinine Ratio 17.8 01/30 6:17 AM EDT [facility] ([facility]) Blood Venous blood specimen / Unknown Venipuncture / Unknown 02/19/2025 4:18 AM EDT 02/19/2025 5:28 AM EDT us Carol Carter [facility] LAB BLOOD ORDERABLES Final Resu lt [facility] ([facility]) [address] [place] [address] * Lavender Top (02/19/2025 1:25 AM EDT) Extra Tube Hold for add-ons. 02/19/2025 3:01 AM EDT [facility] ([facility]) Comment:Auto resulted. Blood Venous blood specimen / Unknown Venipuncture / Unknown 02/19/2025 1:25 AM EDT 02/19/2025 1:45 AM EDT Result [facility] Gabriele Nick MD LAB BLOOD ORDERABLES Final Resul t Performing Organization Address City/[facility]/ZIP Co de Phone Number [facility]) [address] [place] [address] * (ABNORMAL) High Sensitivity Troponin I (02/19/2025 1:25 AM EDT) High Sensitivity Troponin I 27(H) <20 ng/L 02/19/2025 2:16 AM EDT [facility] ([facility]) Blood Venous blood specimen / Unknown Venipuncture / Unknown 02/19/2025 1:25 AM EDT 02/19/2025 1:45 AM EDT Result [facility] Carol Carter CNP LAB BLOOD ORDERABLES Final Resu lt Performing Organization Address [facility] Co de Phone Number [facility] ([facility]) [address] [place] [address] * (ABNORMAL) aPTT (02/19/2025 1:25 AM EDT) aPTT 84.7(H) 25.0 - 35.0 Seconds 02/19/2025 2:10 AM EDT [facility] ([facility]) Comment:Clinical significanc e of the APTT is questionable in the presence of heparin. Blood Venous blood specimen / Unknown Venipuncture / Unknown 02/19/2025 1:25 AM EDT 02/19/2025 1:40 AM EDT Gabriele Nick MD LAB BLOOD ORDERABLES Final Resul t Performing Organization Address City/[facility]/ZIP Co de Phone Number [facility]) [address] [place] [address] * Anti-Xa (Heparin Level) (02/19/2025 1:25 AM EDT) Anti-Xa (Heparin) 0.41 0.3 - 0.7 IU/mL 02/19/2025 2:10 AM EDT [facility]) Comment:Rivaroxaban and Apix aban will interfere with the anti Xa assay used to monitor UFH and LMWH. Blood Venous blood specimen / Unknown Venipuncture / Unknown 02/19/2025 1:25 AM EDT 02/19/2025 1:40 AM EDT us Gabriele Nick MD LAB BLOOD ORDERABLES Final Resul t [facility] ([facility]) [address] [place] [address] * ECG 12 lead (02/18/2025 7:30 PM EDT) Ventricular Rate 133 BPM GE MUSE QRS DURATION 170 ms GE MUSE QT Interval 314 ms GE MUSE QTC CALCULATION(BAZE TT) 467 ms GE MUSE R-Moselle -47 degrees GE MUSE T Wave Moselle 150 degrees GE MUSE 02/18/2025 7:10 PM EDT 02/19/2025 8:53 AM EDT Impressions GE MUSE - 02/19/2025 8:53 AM EDT Atrial fibrillation with rapid ventricular response Left axis deviation Left bundle branch block Abnormal ECG No previous ECGs available Confirmed by MD KULDEEP, MEGAN ([id number]) on 02/19/2025 8:53:08 AM Narrative Procedure Note Megan Rosenberg MD - 02/19/2025 IMPRESSION: Atrial fibrillation with rapid ventricular response Left axis deviation Left bundle branch block Abnormal ECG No previous ECGs available Confirmed by MD ROSENBERG EHAB ([id number]) on 02/19/2025 8:53:08 AM us Carol Carter CNP ECG ORDERABLES Final Result GE MUSE * (ABNORMAL) Anti-Xa (Heparin Level) (02/18/2025 6:46 PM EDT) [facility] Anti-Xa (Heparin) <0.10(LL) 0.3 - 0.7 IU/mL 02/18/2025 8:14 PM EDT [facility] ([facility]) Comment:Rivaroxaban and Apix aban will interfere with the anti Xa assay used to monitor UFH and LMWH. Blood Venous blood specimen / Unknown Venipuncture / Unknown 02/18/2025 6:46 PM EDT 02/18/2025 7:24 PM EDT [facility] BLOOD ORDERABLES Final Resu lt Performing Organization Address [facility] Co de Phone Number [facility]) [address] [place], [place] [phone] * aPTT - baseline (02/18/2025 6:46 PM EDT) [facility] aPTT 32.7 25.0 - 35.0 Seconds 02/18/2025 7:57 PM EDT [facility] ([facility]) Comment:Clinical significanc e of the APTT is questionable in the presence of heparin. Blood Venous blood specimen / Unknown Venipuncture / Unknown 02/18/2025 6:46 PM EDT 02/18/2025 7:24 PM EDT [facility] LAB BLOOD ORDERABLES Final Resu lt Performing Organization Address City/[facility]/ZIP Co de Phone Number [facility]) [address] [place], [place] [phone] * (ABNORMAL) CBC auto differential (02/18/2025 6:46 PM EDT) [facility] Auto WBC 7.49 4.00 - 10.60 10*3/uL 02/18/2025 7:34 PM EDT [facility] ([facility]) RBC 4.57 4.20 - 5.70 10*6/uL 02/18/2025 7:34 PM EDT [facility] ([facility]) Hemoglobin 14.4 13.0 - 17.0 g/dL 02/18/2025 7:34 PM EDT [facility] ([facility]) Hematocrit 41.7 39.0 - 50.0 % 02/18/2025 7:34 PM EDT [facility] ([facility]) MCV 91.2 82.0 - 98.0 fL 02/18/2025 7:34 PM EDT [facility] ([facility]) MCH 31.5 27.0 - 33.0 pg 02/18/2025 7:34 PM EDT [facility] ([facility]) MCHC 34.5 32.0 - 35.0 g/dL 02/18/2025 7:34 PM EDT [facility] ([facility]) RDW 15.1(H) 11.5 - 15.0 % 02/18/2025 7:34 PM EDT [facility] ([facility]) Neutrophils % 69.5 40.0 - 72.0 % 02/18/2025 7:34 PM T [facility] ([facility]) Lymphocytes % 20.2 20.0 - 45.0 % 02/18/2025 7:34 PM T [facility] ([facility]) Monocytes % 8.5 5.0 - 12.0 % 02/18/2025 7:34 PM EDT [facility] ([facility]) Eosinophils % 1.1 0.0 - 6.0 % 02/18/2025 7:34 PM EDT [facility] ([facility]) Basophils % 0.3 0.0 - 1.0 % 02/18/2025 7:34 PM EDT [facility] ([facility]) Neutrophils Absolute 5.21 1.60 - 7.60 10*3/uL 02/18/2025 7:34 PM EDT [facility] ([facility]) Lymphocytes Absolute 1.51 1.20 - 4.00 10*3/uL 02/18/2025 7:34 PM EDT [facility] ([facility]) Monocytes Absolute 0.64 0.10 - 1.00 10*3/uL 02/18/2025 7:34 PM EDT [facility] ([facility]) Eosinophils Absolute 0.08 0.00 - 0.50 10*3/uL 02/18/2025 7:34 PM EDT [facility] ([facility]) Basophils Absolute 0.02 0.00 - 0.20 10*3/uL 02/18/2025 7:34 PM EDT [facility] ([facility]) Platelets 195 150 - 400 10*3/uL 02/18/2025 7:34 PM EDT [facility] ([facility]) nRBC % 0.0 0 % 02/18/2025 7:34 PM EDT [facility] ([facility]) Immature Granulocytes % 0.4 0.0 - 1.0 % 02/18/2025 7:34 PM EDT [facility] ([facility]) Immature Granulocytes Absolute 0.03 0.00 - 0.20 10*3/uL 02/18/2025 7:34 PM EDT [facility] ([facility]) Blood Venous blood specimen / Unknown Venipuncture / Unknown 02/18/2025 6:46 PM EDT 02/18/2025 7:25 PM EDT [facility] BLOOD ORDERABLES Final Resu lt [facility]) [address] [place], [place] [phone] * TSH3 Reflex to FT4 (02/18/2025 6:46 PM EDT) TSH 3.22 0.34 - 5.60 mIU/L 02/18/2025 8:07 PM EDT [facility] ([facility]) Blood Venous blood specimen / Unknown Venipuncture / Unknown 02/18/2025 6:46 PM EDT 02/18/2025 7:26 PM EDT [employer] [facility] LAB BLOOD ORDERABLES Final Resu lt [facility]) [address] [place], [place] [phone] * (ABNORMAL) B-type natriuretic peptide (02/18/2025 6:46 PM EDT) BNP 491(H) 0 - 100 pg/mL 02/18/2025 7:56 PM EDT [facility] Blood Venous blood specimen / Unknown Venipuncture / Unknown 02/18/2025 6:46 PM EDT 02/18/2025 7:26 PM EDT Carol Carter [facility] LAB BLOOD ORDERABLES Final Resu lt [facility] ([facility]) [address] [place] [address] * (ABNORMAL) Protime-INR (02/18/2025 6:46 PM EDT) Protime 17.9(H) 12.3 - 14.8 Seconds 02/18/2025 7:57 PM EDT [facility] ([facility] INR 1.47(H) 0.90 - 1.10 02/18/2025 7:57 PM EDT [facility] ([facility]) Comment: [facility] RECOMMENDED INR FOR [facility]ARFARIN THERAPY CONDITION INR PROPHYLAXIS OF VENOUS THROMBOSIS 2-3 (HIGH-RISK SURGERY) TREATMENT OF VENOUS THROMBOSIS 2-3 TREATMENT OF PULMONARY EMBOLISM 2-3 PREVENTION OF SYSTEMIC EMBOLISM: 2-3 ACUTE MYOCARDIAL INFARCTION TISSUE HEART VALVES VALVULAR HEART DISEASE ATRIAL FIBRILLATION RECURRENT SYSTEMIC EMBOLISM MECHANICAL HEART VALVE 2.5-3.5 FROM: ORAL ANTICOAGULANTS. MECHANISM OF ACTION, CLINICAL EFFECTIVENESS, AND OPTIMAL THERAPEUTIC RANGE. CHEST 1995;[id number]. Blood Venous blood specimen / Unknown Venipuncture / Unknown 02/18/2025 6:46 PM EDT 02/18/2025 7:24 PM EDT [facility] LAB BLOOD ORDERABLES Final Resu lt [facility] ([facility]) [address] [place] [address] * (ABNORMAL) HIGH SENSITIVITY TROPONIN I (02/18/2025 6:46 PM EDT) Pathologist [facility] High Sensitivity Troponin I 27(H) <20 ng/L 02/18/2025 8:07 PM EDT [facility] ([facility]) Blood Venous blood specimen / Unknown Venipuncture / Unknown 02/18/2025 6:46 PM EDT 02/18/2025 7:26 PM EDT [facility] LAB BLOOD ORDERABLES Final Resu lt Performing Organization Address City/[facility]/ZIP Co de Phone Number [facility] ([facility]) [address] [place] [address] * Phosphorus (02/18/2025 6:46 PM EDT) Pathologist [facility] Phosphorus 2.7 2.5 - 5.0 mg/dL 02/18/2025 8:07 PM EDT [facility] ([facility]) Blood Venous blood specimen / Unknown Venipuncture / Unknown 02/18/2025 6:46 PM EDT 02/18/2025 7:26 PM EDT [facility] LAB BLOOD ORDERABLES Final Resu lt [facility]) [address] [place] [address] * Magnesium (02/18/2025 6:46 PM EDT) Magnesium 2.1 1.9 - 2.7 mg/dL 02/18/2025 8:07 PM EDT [facility] ([facility]) Blood Venous blood specimen / Unknown Venipuncture / Unknown 02/18/2025 6:46 PM EDT 02/18/2025 7:26 PM EDT [facility] LAB BLOOD ORDERABLES Final Resu lt [facility] ([facility]) [address] [place] [address] * Lactic acid, plasma (02/18/2025 6:46 PM EDT) Lactate 1.1 0.5 - 2.2 mmol/L 02/18/2025 7:46 PM EDT [facility]) Blood Venous blood specimen / Unknown Venipuncture / Unknown 02/18/2025 6:46 PM EDT 02/18/2025 7:24 PM EDT [facility] LAB BLOOD ORDERABLES Final Resu lt Performing Organization Address City/[facility]/ZIP Co de Phone Number [facility] ([facility]) [address] [place] [address] * (ABNORMAL) Comprehensive metabolic panel (02/18/2025 6:46 PM EDT) Sodium 136 136 - 145 mmol/L 02/18/2025 8:07 PM EDT [facility]) Potassium 4.0 3.5 - 5.1 mmol/L 02/18/2025 8:07 PM EDT [facility] ([facility]) Chloride 108(H) 98 - 107 mmol/L 02/18/2025 8:07 PM EDT [facility] ([facility]) CO2 21 21 - 31 mmol/L 02/18/2025 8:07 PM EDT [facility] ([facility]) Anion Gap 11 7 - 20 mmol/L 02/18/2025 8:07 PM EDT [facility] ([facility]) BUN 21 7 - 25 mg/dL 02/18/2025 8:[address] [facility] ([facility]) Creatinine 1.02 0.70 - 1.30 mg/dL 02/18/2025 8:[address] [facility] ([facility]) BUN/Creatinine Ratio 20.6 01/30 8:[address] [facility] ([facility]) Glucose 88 70 - 100 mg/dL 02/18/2025 8:[address] [facility] ([facility]) Calcium 8.5(L) 8.6 - 10.3 mg/dL 02/18/2025 8:[address] [facility] ([facility]) AST 19 13 - 39 U/L 02/18/2025 8:[address] [facility] ([facility]) ALT (SGPT) 30 7 - 52 U/L 02/18/2025 8:[address] [facility] ([facility]) Alkaline Phosphatase 58 34 - 104 U/L 02/18/2025 8:07 [facility] ([facility]) Total Protein 5.5(L) 6.0 - 8.3 g/dL 02/18/2025 8:07 [facility] ([facility]) Albumin 3.6 3.5 - 5.7 g/dL 02/18/2025 8:[address] [facility] ([facility]) Total Bilirubin 3.6(H) 0.3 - 1.0 mg/dL 02/18/2025 8:[address] [facility] ([facility]) eGFR 85.2 >60.0 mL/min/1. 73m*2 02/18/2025 8:07 [facility] ([facility]) Comment:The [facility] s estimated glomerular filtration rate (eGFR) will no longer include consideration of race in its calculation. The [employer] s eGFR Task Force developed new recommendations for the estimation of the glomerular filtration rate in the [place] They recommend immediate implementation of the new equation refit without the race variable in all laboratories because the calculation does not include race. In addition to not including race in the calculation and reporting, it included diversity in its development, and has acceptable performance characteristics and potential consequences that do not disproportionately affect any one group of individuals. Blood Venous blood specimen / Unknown Venipuncture / Unknown 02/18/2025 6:46 PM EDT 02/18/2025 7:26 PM EDT Carol Carter [facility] LAB BLOOD ORDERABLES Final Resu lt [facility]) [address] [place] [address] documented in this encounter Visit Diagnoses Diagnosis Acute systolic CHF (congestive heart failure) (CMS/HCC)- Primary Acute systolic CHF (congestive heart failure) (CMS/HCC) Chronic HFrEF (heart failure with reduced ejection fraction) (CMS/HCC) Paroxysmal atrial fibrillation (CMS/HCC) Atrial fibrillation A-fib (CMS/HCC) Atrial fibrillation Atrial fibrillation, unspecified type (CMS/HCC) Angina pectoris, unstable (CMS/HCC) Intermediate coronary syndrome Edema, unspecified type S/P gastric bypass Bariatric surgery status Benign prostatic hyperplasia, unspecified whether lower urinary tract symptoms present New onset a-fib (CMS/HCC) Atrial fibrillation Primary hypertension Unspecified essential hypertension ENA (obstructive sleep apnea) Obstructive sleep apnea (adult) (pediatric) S/P gastric bypass Bariatric surgery status Pericardial effusion Unspecified disease of pericardium Moderate mitral valve regurgitation Atrial fibrillation with RVR (CMS/HCC) A-fib (CMS/HCC) Atrial fibrillation Hematoma Contusion of unspecified site Angina pectoris, unstable (CMS/HCC) Intermediate coronary syndrome Paroxysmal atrial fibrillation (CMS/HCC) Atrial fibrillation documented in this encounter Admitting Diagnoses Diagnosis Acute systolic CHF (congestive heart failure) (CMS/HCC) A-fib ([facility]) Atrial fibrillation Angina pectoris, unstable (CMS/HCC) Intermediate coronary syndrome documented in this encounter Administered Medications Inactive Administered Medications - up to 3 most recent administrations Medication Order MAR Action Action Date Dose Rate Site acetaminophen (Tylenol) tablet 650 mg 650 mg, oral, Every 6 hours PRN, mild pain (1-3 pain score), (1-3), Starting on Raquel 02/18/25 at 1855, For 99 days Given 02/21/2025 12:44 PM EDT 650 mg Given 02/20/2025 11:11 PM EDT 650 mg albumin human 5 % bottle 25 g 25 g, intravenous, at 60 mL/hr, Once, On 02/22/25 at 0930, For 1 dose New Bag 02/22/2025 9:30 AM EDT 25 g 60 mL/hr amiodarone (Nexterone) infusion 1 mg/min (33.3333 mL/hr, rounded to 33.3 mL/hr), intravenous, Continuous, Starting on Sat02/22/25 at 1315, For 6 hours, Use in-line filter. Give through central venous catheter whenever available. Premix New Bag 02/22/2025 7:04 PM EDT 1 mg/min 33.3 mL/hr New Bag 02/22/2025 1:46 PM EDT 1 mg/min 33.3 mL/hr amiodarone (Nexterone) infusion 0.5 mg/min (16.6667 mL/hr, rounded to 16.67 mL/hr), intravenous, Continuous, Starting on Sat02/22/25 at 1946, For 99 days, Use in-line filter. Give through central venous catheter whenever available. Premix New Bag 03/01/2025 4:58 AM EDT 0.5 mg/min 16.67 mL/hr New Bag 02/28/2025 5:26 PM EDT 0.5 mg/min 16.67 mL/hr New Bag 02/28/2025 8:16 AM EDT 0.5 mg/min 16.67 mL/hr amiodarone in dextrose,iso-osm (Nexterone) IVPB 150 mg 150 mg, intravenous, Administer over 10 Minutes, Once, On Sat02/22/25 at 1315, For 1 dose, Use in-line filter. Administer through central venous catheter whenever available. Premix New Bag 02/22/2025 1:35 PM EDT 150 mg amiodarone in dextrose,iso-osm (Nexterone) IVPB 150 mg 150 mg, intravenous, Administer over 10 Minutes, Once, On Sat02/23/25 at 1530, For 1 dose, Use in-line filter. Administer through central venous catheter whenever available. Premix 02/23/2025 3:41 PM EDT 150 mg apixaban (Eliquis) tablet 5 mg 5 mg, oral, 2 times daily, First dose on Raquel 03/04/25 at 2200, For 99 days, Apixaban indication: Non-valvular Atrial Fibrillation Given 03/05/2025 9:46 AM EDT 5 mg Given 03/04/2025 10:03 PM EDT 5 mg aspirin EC tablet 81 mg 81 mg, oral, Daily, First dose on Sat03/03/25 at 1800, For 99 days, Do not crush, chew, or split. Given 03/05/2025 9:46 AM EDT 81 mg Given 03/04/2025 10:31 AM EDT 81 mg Given 03/03/2025 6:41 PM EDT 81 mg bisacodyl (Dulcolax) EC tablet 5 mg 5 mg, oral, Daily, First dose on Sat02/26/25 at 1145, For 99 days, Do not give within 1 hour of antacids, milk, or dairy products. Do not crush, chew, or split. Given 03/05/2025 9:46 AM EDT 5 mg Given 03/04/2025 10:32 AM EDT 5 mg Given 03/03/2025 1:46 PM EDT 5 mg digoxin (Lanoxin) injection 0.25 mg 0.25 mg, intravenous, Administer over 5 Minutes, Once, On Sat02/22/25 at 0645, For 1 dose Given 02/22/2025 6:42 AM EDT 0.25 mg digoxin (Lanoxin) injection 250 mcg 250 mcg, intravenous, Administer over 5 Minutes, Every 6 hours, First dose on Sat02/18/25 at 2300, For 3 doses Given 02/19/2025 11:22 AM EDT 250 mcg Given 02/19/2025 5:58 AM EDT 250 mcg Given 02/18/2025 10:55 PM EDT 250 mcg digoxin (Lanoxin) injection 250 mcg 250 mcg, intravenous, Administer over 5 Minutes, Once, On Sat02/24/25 at 1115, For 1 dose Given 02/24/2025 11:26 AM EDT 250 mcg digoxin (Lanoxin) injection 250 mcg 250 mcg, intravenous, Administer over 5 Minutes, Every 6 hours, First dose on Sat02/24/25 at 1715, For 2 doses Given 02/24/2025 11:04 PM EDT 250 mcg Given 02/24/2025 5:34 PM EDT 250 mcg digoxin (Lanoxin) injection 500 mcg 500 mcg, intravenous, Administer over 5 Minutes, Once, On Sat03/01/25 at 1330, For 1 dose Given 03/01/2025 1:30 PM EDT 500 mcg digoxin (Lanoxin) tablet 250 mcg 250 mcg, oral, Daily, First dose on [facility] 02/20/25 at 1000, For 99 days, On hold since Sat02/22/2025 at 0916 until manually unheld Given 02/21/2025 8:44 AM EDT 250 mcg Given 02/20/2025 9:34 AM EDT 250 mcg diphenhydrAMINE (BENADryl) capsule 25 mg 25 mg, oral, Every 8 hours PRN, nausea, Starting on Sat02/23/25 at 0413, For 99 days Given 02/25/2025 1:49 AM EDT 25 mg Given 02/24/2025 9:01 AM EDT 25 mg Given 02/23/2025 9:00 PM EDT 25 mg ferrous sulfate tablet 325 mg 325 mg, oral, Daily with breakfast, First dose on [facility] 02/27/25 at 0800, For 99 days Given 03/05/2025 8:00 AM EDT 325 mg Given 03/04/2025 10:32 AM EDT 325 mg Given 03/03/2025 1:46 PM EDT 325 mg furosemide (Lasix) injection 40 mg 40 mg, intravenous, 2 times daily before meals, First dose on Sat02/18/25 at 1900, For 99 days, Administer undiluted IV push at a rate no greater than 20 mg/minute. Given 02/21/2025 6:15 AM EDT 40 mg Given 02/20/2025 5:16 PM EDT 40 mg Given 02/20/2025 6:45 AM EDT 40 mg furosemide (Lasix) tablet 40 mg 40 mg, oral, Every 12 hours, First dose on [place] 02/21/25 at 1100, For 99 days, On hold since Sat02/22/2025 at 0836 until manually unheld Given 02/21/2025 10:55 PM EDT 40 mg Given 02/21/2025 12:05 PM EDT 40 mg furosemide (Lasix) tablet 60 mg 60 mg, oral, Daily, First dose on [facility] 03/04/25 at 1200, For 99 days Given 03/05/2025 9:46 AM EDT 60 mg Given 03/04/2025 12:18 PM EDT 60 mg heparin (porcine) injection 5,000 Units 5,000 Units, intravenous, Once, On 03/02/25 at 1345, For 1 dose, Cardiac/Stroke protocol - Initial bolus. Maximum dose 5000 units. Given 03/02/2025 3:06 PM EDT 5,000 Units heparin infusion 100 units/mL in D5W 0-28 Units/kg/hr 118 kg (0-33.04 mL/hr, rounded to 0-33 mL/hr), intravenous, Continuous, Starting on [place] 02/18/25 at 1900, For 99 days, Cardiac/Stroke protocol - Monitor antiXa level 6 hours after rate change, then every 6 hours until therapeutic twice. While therapeutic monitor every AM., Initial Heparin rate (units/kg/hr): 15, Anti-Xa < 0.20 Maintenance Dose Adjustment (units/kg/hr): 2, Anti-Xa < 0.20 Bolus Dose (units/kg): 0, Anti-Xa 0.2-0.29 Heparin Maintenance Dose Adjustment (units/kg/hr): 1, Anti-Xa 0.3-0.7 Maintenance Dose Adjustment (units/kg/hr): 0, Anti-Xa 0.71-0.8 Maintenance Dose Adjustment (units/kg/hr): -1, Anti-Xa 0.81-0.99 Maintenance Dose Adjustment (units/kg/hr): -2, Anti-Xa 1.00 or greater = Maintenance Dose Adjustment (units/kg/hr): -2, Anti-Xa 1.0 or greater = Bolus Dose (units/kg): 0, Anti-Xa 1.0 or greater = adjust current infusion: Hold infusion for 1 hour, then restart at 2 units/kg/hr below current dose., Indication: Cardiac/Stroke Rate/Dose Verify 02/22/2025 9:55 AM EDT 12 Units/kg/hr 14.2 mL/hr Rate/Dose Change 02/22/2025 7:01 AM EDT 12 Units/kg/hr 14. 2 mL/hr Rate/Dose Verify 02/22/2025 7:00 AM EDT 12 Units/kg/hr 14. 2 mL/hr heparin infusion 100 units/mL in D5W 0-28 Units/kg/hr 112 kg (0-31.36 mL/hr, rounded to 0-31.4 mL/hr), intravenous, Continuous, Starting on Sat03/02/25 at 1345, For 99 days, Cardiac/Stroke protocol - Monitor antiXa level 6 hours after rate change, then every 6 hours until therapeutic twice. While therapeutic monitor every AM., Initial Heparin rate (units/kg/hr): 15, Anti-Xa < 0.20 Maintenance Dose Adjustment (units/kg/hr): 2, Anti-Xa < 0.20 Bolus Dose (units/kg): 0, Anti-Xa 0.2-0.29 Heparin Maintenance Dose Adjustment (units/kg/hr): 1, Anti-Xa 0.3-0.7 Maintenance Dose Adjustment (units/kg/hr): 0, Anti-Xa 0.71-0.8 Maintenance Dose Adjustment (units/kg/hr): -1, Anti-Xa 0.81-0.99 Maintenance Dose Adjustment (units/kg/hr): -2, Anti-Xa 1.00 or greater = Maintenance Dose Adjustment (units/kg/hr): -2, Anti-Xa 1.0 or greater = Bolus Dose (units/kg): 0, Anti-Xa 1.0 or greater = adjust current infusion: Hold infusion for 1 hour, then restart at 2 units/kg/hr below current dose., Indication: Cardiac/Stroke New Bag 03/03/2025 5:01 AM EDT 17 Units/kg/hr 19 mL/hr Rate/Dose Change 03/02/2025 11:35 PM EDT 17 Units/kg/hr 19 mL/hr New Bag 03/02/2025 3:06 PM EDT 15 Units/kg/hr 16.8 mL/h r heparin infusion 100 units/mL in D5W 0-28 Units/kg/hr 111 kg (0-31.08 mL/hr, rounded to 0-31.1 mL/hr), intravenous, Continuous, Starting on Sat03/03/25 at 1230, For 99 days, Cardiac/Stroke protocol - Monitor antiXa level 6 hours after rate change, then every 6 hours until therapeutic twice. While therapeutic monitor every AM., Initial Heparin rate (units/kg/hr): 15, Anti-Xa < 0.20 Maintenance Dose Adjustment (units/kg/hr): 2, Anti-Xa < 0.20 Bolus Dose (units/kg): 0, Anti-Xa 0.2-0.29 Heparin Maintenance Dose Adjustment (units/kg/hr): 1, Anti-Xa 0.3-0.7 Maintenance Dose Adjustment (units/kg/hr): 0, Anti-Xa 0.71-0.8 Maintenance Dose Adjustment (units/kg/hr): -1, Anti-Xa 0.81-0.99 Maintenance Dose Adjustment (units/kg/hr): -2, Anti-Xa 1.00 or greater = Maintenance Dose Adjustment (units/kg/hr): -2, Anti-Xa 1.0 or greater = Bolus Dose (units/kg): 0, Anti-Xa 1.0 or greater = adjust current infusion: Hold infusion for 1 hour, then restart at 2 units/kg/hr below current dose., Indication: Cardiac/Stroke Rate/Dose Verify 03/04/2025 6:03 AM EDT 18 Units/kg/hr 20 mL/hr Rate/Dose Verify 03/04/2025 3:59 AM EDT 18 Units/kg/hr 20 mL/hr Rate/Dose Verify 03/04/2025 1:47 AM EDT 18 Units/kg/hr 20 mL/hr HYDROcodone-acetaminophen (Montrose) 5-325 mg per tablet 1 tablet 1 tablet, oral, Every 6 hours PRN, moderate-severe pain (4-10 pain score), Starting on Sat02/21/25 at 1619, For 99 days Given 02/21/2025 10:40 PM EDT 1 tablet Given 02/21/2025 4:30 PM EDT 1 tablet HYDROmorphone (Dilaudid) injection 0.2 mg 0.2 mg, intravenous, Every 4 hours PRN, anticipatory pain, Starting on Sat02/22/25 at 1225, For 99 days Given 02/22/2025 7:09 PM EDT 0.2 mg Given 02/22/2025 12:36 PM EDT 0.2 mg iohexol (OMNIPaque) 350 mg iodine/mL injection 100 mL 100 mL, intravenous, Once in imaging, Starting on Sat02/22/25 at 1302, For 1 dose Given 02/22/2025 1:02 PM E DT 100 mL iohexol (OMNIPaque) 350 mg iodine/mL injection 100 mL 100 mL, intravenous, Once in imaging, Starting on Sat02/25/25 at 1039, For 1 dose Given 02/25/2025 10:50 AM EDT 100 mL iohexol (OMNIPaque) 350 mg iodine/mL injection 100 mL 100 mL, intravenous, Once in imaging, Starting on Sat03/04/25 at 1530, For 1 dose Given 03/04/2025 3:30 PM EDT 1 00 mL labetalol (Normodyne) tablet 200 mg 200 mg, oral, 3 times daily before meals, First dose on Sat02/18/25 at 1830, For 99 days Given 02/19/2025 5:58 AM EDT 200 mg Given 02/18/2025 7:17 PM EDT 200 mg lactated Ringer's bolus 250 mL 250 mL, intravenous, at 125 mL/hr, Administer over 2 Hours, Once, On Sat02/22/25 at 0930, For 1 dose, Indication: Hypotension Rate/Dose Verify 02/22/2025 9:55 AM EDT 125 mL/hr New Bag 02/22/2025 9:29 AM EDT 250 mL 125 mL/hr lisinopril tablet 10 mg 10 mg, oral, Daily, First dose on Sat02/19/25 at 1000, For 99 days Given 02/20/2025 9:34 AM EDT 10 mg Given 02/19/2025 8:51 AM EDT 10 mg magnesium sulfate in D5W IVPB 1 g 1 g, intravenous, at 100 mL/hr, Administer over 1 Hours, Every 1 hour, First dose on Sat02/19/25 at 0915, For 1 dose New Bag 02/19/2025 10:03 AM EDT 1 g 100 mL/hr magnesium sulfate in D5W IVPB 1 g 1 g, intravenous, at 100 mL/hr, Administer over 1 Hours, Once, On Sat02/22/25 at 0645, For 1 dose New Bag 02/22/2025 6:50 AM EDT 1 g 100 mL/hr melatonin tablet 5 mg 5 mg, oral, Nightly PRN, sleep, Starting on Sat02/18/25 at 1855, For 99 days metoprolol succinate XL (Toprol-XL) 24 hr tablet 100 mg 100 mg, oral, Daily, First dose on Sat02/19/25 at 1100, For 99 days, Do not crush or chew. Given 02/19/2025 10:02 AM EDT 100 mg metoprolol succinate XL (Toprol-XL) 24 hr tablet 100 mg 100 mg, oral, 2 times daily, First dose (after last modification) on Sat02/20/25 at 1800, Do not crush or chew., On hold since Sat02/22/2025 at 0916 until manually unheld Given 02/21/2025 4:30 PM EDT 100 mg Given 02/21/2025 6:15 AM EDT 100 mg Given 02/20/2025 6:16 PM EDT 100 mg metoprolol succinate XL (Toprol-XL) 24 hr tablet 25 mg 25 mg, oral, Once, On Sat03/03/25 at 1600, For 1 dose, Do not crush or chew. Given 03/03/2025 5:21 PM EDT 25 mg metoprolol succinate XL (Toprol-XL) 24 hr tablet 50 mg 50 mg, oral, Daily, First dose on Sat03/03/25 at 1230, For 99 days, Do not crush or chew. Given 03/03/2025 1:46 PM EDT 50 mg metoprolol succinate XL (Toprol-XL) 24 hr tablet 75 mg 75 mg, oral, Daily, First dose (after last modification) on Sat03/04/25 at 1000, For 98 doses, Do not crush or chew. Given 03/05/2025 9:46 AM EDT 75 mg Given 03/04/2025 10:32 AM EDT 75 mg metoprolol tartrate (Lopressor) injection 5 mg 5 mg, intravenous, Once, On [place] 02/18/25 at 2145, For 1 dose Given 02/18/2025 9:50 PM EDT 5 mg metoprolol tartrate (Lopressor) injection 5 mg 5 mg, intravenous, Once, On Sat02/23/25 at 2130, For 1 dose, Hold if heart rate less than: 60 BPM For IVP: give over 2 minutes. Given 02/23/2025 9:23 PM EDT 5 mg metoprolol tartrate (Lopressor) injection 5 mg 5 mg, intravenous, Once, On Sat02/24/25 at 0015, For 1 dose, Hold if heart rate less than: 60 BPM For IVP: give over 2 minutes. Given 02/24/2025 12:29 AM EDT 5 mg metoprolol tartrate (Lopressor) tablet 25 mg 25 mg, oral, Every 6 hours, First dose on Sat03/01/25 at 1330, For 99 days Given 03/02/2025 7:59 AM EDT 25 mg Given 03/02/2025 1:48 AM EDT 25 mg Given 03/01/2025 8:16 PM EDT 25 mg metoprolol tartrate (Lopressor) tablet 25 mg 25 mg, oral, Once PRN Procedure, Prior to coronary CTA, Starting on Sat03/04/25 at 1004, For 1 dose Given 03/04/2025 12:18 PM EDT 25 mg metoprolol tartrate (Lopressor) tablet 50 mg 50 mg, oral, Once, On Sat03/02/25 at 1130, For 1 dose Given 03/02/2025 11:36 AM EDT 50 mg metoprolol tartrate (Lopressor) tablet 75 mg 75 mg, oral, 2 times daily, First dose (after last modification) on Sat03/02/25 at 2200 Given 03/02/2025 9:01 PM EDT 75 mg nitroglycerin (Nitrostat) SL tablet sublingual, As needed, Starting on Sat03/04/25 at 1511, Intraprocedure Given 03/04/2025 3:11 PM EDT 0.8 mg norepinephrine in sodium chloride 0.9 % (Levophed) 8 mg/250ml infusion 0.01-2 mcg/kg/min 106 kg (1.9875-397.5 mL/hr, rounded to 1.99-397.5 mL/hr), intravenous, Continuous, Starting on Sat02/23/25 at 1115, For 98 days, If sustaining below MAP <65 *ADMINISTER THROUGH A CENTRAL LINE* * PROTECT FROM LIGHT *, Initial dose: 0.01 mcg/kg/min, Adjust dose by: Not more than 0.1 mcg/kg/minute every 5 minutes, Target Blood Pressure (mmHg): SBP 90 - 115 Restarted 02/26/2025 11:15 AM EDT 0.02 mcg/kg/min 3.98 mL/hr Rate/Dose Verify 02/26/2025 8:01 AM EDT 0.02 mcg/kg/min 3. 98 mL/hr Rate/Dose Verify 02/26/2025 7:00 AM EDT 0.02 mcg/kg/min 3. 98 mL/hr potassium chloride CR (Klor-Con M20) ER tablet 20 mEq 20 mEq, oral, Once, On Sat02/19/25 at 0915, For 1 dose, Serum K 3.5-3.9 Do not crush or chew. Given 02/19/2025 10:02 AM EDT 20 mEq potassium phosphates 9 mmol in dextrose 5 % 250 mL infusion 9 mmol, intravenous, at 42.2 mL/hr, Administer over 6 Hours, Once, On Sat02/26/25 at 1145, For 1 dose, Administer over 6 hours using a peripheral line New Bag 02/26/2025 12:44 PM EDT 9 mmol 42.2 mL/hr sennosides-docusate sodium (Gertrude-Colace) 8.6-50 mg per tablet 1 tablet 1 tablet, oral, Daily PRN, constipation, Starting on Sat02/23/25 at 0944 Given 02/23/2025 9:51 AM EDT 1 tablet sennosides-docusate sodium (Gertrude-Colace) 8.6-50 mg per tablet 1 tablet 1 tablet, oral, Nightly, First dose (after last modification) on Sat03/02/25 at 2200 Given 03/04/2025 10:03 PM EDT 1 tablet Given 03/03/2025 9:58 PM EDT 1 tablet Given 03/02/2025 9:01 PM EDT 1 tablet sodium chloride 0.9 % bolus 500 mL 500 mL, intravenous, at 500 mL/hr, Administer over 1 Hours, Once, On Sat02/22/25 at 0445, For 1 dose, Indication: low BP New Bag 02/22/2025 4:51 AM EDT 500 mL 500 mL/hr sodium chloride 0.9 % infusion 20 mL/hr, intravenous, Continuous, Starting on Sat02/25/25 at 0930, For 12 hours, With Blood Transfusion New Bag 02/25/2025 10:08 AM EDT 20 mL/hr 20 mL/hr sodium chloride 0.9 % infusion 75 mL/hr, intravenous, Continuous, Starting on Sat02/25/25 at 1100, For 1 day, Indication: IV contrast Rate/Dose Verify 02/26/2025 8:01 AM EDT 75 mL/hr 75 mL/hr Rate/Dose Verify 02/26/2025 7:00 AM EDT 75 mL/hr 75 mL/h r Rate/Dose Verify 02/26/2025 6:00 AM EDT 75 mL/hr 75 mL/h r sodium chloride flush 10 mL 10 mL, intravenous, Every 8 hours PRN, line care, Starting on [place] 02/18/25 at 1855, For 99 days sodium chloride irrigation solution 0.9 % 3,000 mL 3,000 mL, irrigation, Continuous, Starting on Sat02/23/25 at 1815, Please maintain continuous bladder irrigation running. Please supervisor microfilm duplicating unit 2 3L bags of normal saline. Titrate rate of irrigation to achieve clear or light pink urine output in tubing. Please do not completely turn off the irrigation. If catheter stops draining then please attempt to irrigate the catheter with a catheter tip syringe. If catheter is still not draining, then notify urology service. Given 02/23/2025 6:15 PM EDT 3,000 mL spironolactone (Aldactone) split tablet 12.5 mg 12.5 mg, oral, Daily, First dose (after last modification) on 03/06/25 at 1000, For 84 doses spironolactone (Aldactone) tablet 25 mg 25 mg, oral, Daily, First dose on Sat02/19/25 at 1300, For 99 days Given 03/05/2025 9:46 AM EDT 25 mg Given 02/21/2025 8:43 AM EDT 25 mg Given 02/20/2025 9:34 AM EDT 25 mg sulfur hexafluoride microsphr (Lumason) injection 24.28 mg 24.28 mg (2 mL), intravenous, Once in imaging, Starting on Sat03/02/25 at 1233, For 1 dose Given 03/02/2025 12:34 PM EDT 24.28 mg tamsulosin (Flomax) 24 hr capsule 0.4 mg 0.4 mg, oral, Daily, First dose on Sat02/24/25 at 1000, For 99 days, Do not crush, chew, or split. Given 03/05/2025 9:46 AM EDT 0.4 mg Given 03/04/2025 10:32 AM EDT 0.4 mg Given 03/03/2025 1:46 PM EDT 0.4 mg valsartan (Diovan) tablet 20 mg 20 mg, oral, Daily, First dose on Sat03/03/25 at 1230, For 99 days Given 03/05/2025 9:46 AM EDT 20 mg Given 03/04/2025 10:37 AM EDT 20 mg Given 03/03/2025 1:45 PM EDT 20 mg valsartan (Diovan) tablet 80 mg 80 mg, oral, Daily, First dose on Sat02/21/25 at 1000, For 99 days, On hold since Sat02/22/2025 at 0836 until manually unheld Given 02/21/2025 8:44 AM EDT 80 m g documented in this encounter Active and Recently Administered Medications Times are shown in EDT. Scheduled Medication Order 03/03/2025 03/04/2025 03/05/2025 apixaban (Eliquis) tablet 5 mg 5 mg, oral, 2 times daily, First dose on Sat03/04/25 at 2200, For 99 days, Apixaban indication: Non-valvular Atrial Fibrillation 2202 (Given - Provider: Yesenia Breen RN) 0946 (Given - Provider: Jenny Ramachandran, BARRON) aspirin EC tablet 81 mg (CANCELED) 81 mg, oral, Daily, First dose on Sat03/03/25 at 1800, For 99 days, Do not crush, chew, or split. 1841 (Given - Provider: Ayde Hamm RN) 1031 (Given - Provider: Apryl Hollis RN) 0946 (Given - Provider: Jenny Ramachandran, BARRON) bisacodyl (Dulcolax) EC tablet 5 mg 5 mg, oral, Daily, First dose on Sat02/26/25 at 1145, For 99 days, Do not give within 1 hour of antacids, milk, or dairy products. Do not crush, chew, or split. 1346 (Given - Provider: Ayde Hamm RN) 1032 (Given - Provider: Apryl Hollis, BARRON) 0946 (Given - Provider: Jenny Ramachandran, BARRON) ferrous sulfate tablet 325 mg 325 mg, oral, Daily with breakfast, First dose on Sat02/27/25 at 0800, For 99 days 1346 (Given - Provider: Ayde Hamm RN) 1032 (Given - Provider: Apryl Hollis RN) 0800 (Given - Provider: Jenny Ramachandran, BARRON) furosemide (Lasix) tablet 60 mg 60 mg, oral, Daily, First dose on [place] 03/04/25 at 1200, For 99 days 1218 (Given - Provider: Apryl Hollis RN) 0946 (Given - Provider: Jenny Ramachandran, BARRON) iohexol (OMNIPaque) 350 mg iodine/mL injection 100 mL (COMPLETED) 100 mL, intravenous, Once in imaging, Starting on [place]quel 03/04/25 at 1530, For 1 dose 1530 (Given - Provider: CHUCK Coppola) metoprolol succinate XL (Toprol-XL) 24 hr tablet 25 mg (COMPLETED) 25 mg, oral, Once, On Sat03/03/25 at 1600, For 1 dose, Do not crush or chew. 1721 (Given - Provider: Ayde Hamm RN - Comment: Increasing dose to 75mg.) metoprolol succinate XL (Toprol-XL) 24 hr tablet 50 mg (CANCELED) 50 mg, oral, Daily, First dose on Sat03/03/25 at 1230, For 99 days, Do not crush or chew. 1346 (Given - Provider: Ayde Hamm RN) metoprolol succinate XL (Toprol-XL) 24 hr tablet 75 mg 75 mg, oral, Daily, First dose (after last modification) on [place]quel 03/04/25 at 1000, For 98 doses, Do not crush or chew. 1032 (Given - Provider: Apryl Hollis RN) 0946 (Given - Provider: Jenny Ramachandran, BARRON) sennosides-docusate sodium (Gertrude-Colace) 8.6-50 mg per tablet 1 tablet 1 tablet, oral, Nightly, First dose (after last modification) on Sat03/02/25 at 2200 2158 (Given - Provider: Yesenia Breen, BARRON) 2203 (Given - Provider: Yesenia Breen, BARRON) sodium chloride irrigation solution 0.9 % 3,000 mL 3,000 mL, irrigation, Continuous, Starting on Sat02/23/25 at 1815, Please maintain continuous bladder irrigation running. Please supervisor microfilm duplicating unit 2 3L bags of normal saline. Titrate rate of irrigation to achieve clear or light pink urine output in tubing. Please do not completely turn off the irrigation. If catheter stops draining then please attempt to irrigate the catheter with a catheter tip syringe. If catheter is still not draining, then notify urology service. spironolactone (Aldactone) split tablet 12.5 mg 12.5 mg, oral, Daily, First dose (after last modification) on Sat03/06/25 at 1000, For 84 doses spironolactone (Aldactone) tablet 25 mg (CANCELED) 25 mg, oral, Daily, First dose on Sat02/19/25 at 1300, For 99 days 1000 (Dose Auto Held - Provider: Suleiman Corcoran MD) 1000 (Dose Auto Held - Provider: Suleiman Corcoran MD)1155 (Unheld by provider - Provider: Arminda Solitario MD) 0946 (Given - Provider: Jenny Ramachandran, BARRON) tamsulosin (Flomax) 24 hr capsule 0.4 mg 0.4 mg, oral, Daily, First dose on Sat02/24/25 at 1000, For 99 days, Do not crush, chew, or split. 1346 (Given - Provider: Ayde Hamm RN) 1032 (Given - Provider: Apryl Hollis, BARRON) 0946 (Given - Provider: Jenny Ramachandran, RN) valsartan (Diovan) tablet 20 mg 20 mg, oral, Daily, First dose on Sat03/03/25 at 1230, For 99 days 1345 (Given - Provider: Ayde Hamm RN) 1037 (Given - Provider: Apryl Hollis, BARRON) 0946 (Given - Provider: Jenny Ramachandran, RN) Continuous Medication Order 03/03/2025 03/04/2025 03/05/2025 heparin infusion 100 units/mL in D5W (CANCELED) 0-28 Units/kg/hr 112 kg (0-31.36 mL/hr, rounded to 0-31.4 mL/hr), intravenous, Continuous, Starting on Sat03/02/25 at 1345, For 99 days, Cardiac/Stroke protocol - Monitor antiXa level 6 hours after rate change, then every 6 hours until therapeutic twice. While therapeutic monitor every AM., Initial Heparin rate (units/kg/hr): 15, Anti-Xa < 0.20 Maintenance Dose Adjustment (units/kg/hr): 2, Anti-Xa < 0.20 Bolus Dose (units/kg): 0, Anti-Xa 0.2-0.29 Heparin Maintenance Dose Adjustment (units/kg/hr): 1, Anti-Xa 0.3-0.7 Maintenance Dose Adjustment (units/kg/hr): 0, Anti-Xa 0.71-0.8 Maintenance Dose Adjustment (units/kg/hr): -1, Anti-Xa 0.81-0.99 Maintenance Dose Adjustment (units/kg/hr): -2, Anti-Xa 1.00 or greater = Maintenance Dose Adjustment (units/kg/hr): -2, Anti-Xa 1.0 or greater = Bolus Dose (units/kg): 0, Anti-Xa 1.0 or greater = adjust current infusion: Hold infusion for 1 hour, then restart at 2 units/kg/hr below current dose., Indication: Cardiac/Stroke 0501 (New Bag - Provider: Yesenia Breen, BARRON)1050 (Stopped - Provider: Ayde Hamm RN) heparin infusion 100 units/mL in D5W (CANCELED) 0-28 Units/kg/hr 111 kg (0-31.08 mL/hr, rounded to 0-31.1 mL/hr), intravenous, Continuous, Starting on Sat03/03/25 at 1230, For 99 days, Cardiac/Stroke protocol - Monitor antiXa level 6 hours after rate change, then every 6 hours until therapeutic twice. While therapeutic monitor every AM., Initial Heparin rate (units/kg/hr): 15, Anti-Xa < 0.20 Maintenance Dose Adjustment (units/kg/hr): 2, Anti-Xa < 0.20 Bolus Dose (units/kg): 0, Anti-Xa 0.2-0.29 Heparin Maintenance Dose Adjustment (units/kg/hr): 1, Anti-Xa 0.3-0.7 Maintenance Dose Adjustment (units/kg/hr): 0, Anti-Xa 0.71-0.8 Maintenance Dose Adjustment (units/kg/hr): -1, Anti-Xa 0.81-0.99 Maintenance Dose Adjustment (units/kg/hr): -2, Anti-Xa 1.00 or greater = Maintenance Dose Adjustment (units/kg/hr): -2, Anti-Xa 1.0 or greater = Bolus Dose (units/kg): 0, Anti-Xa 1.0 or greater = adjust current infusion: Hold infusion for 1 hour, then restart at 2 units/kg/hr below current dose., Indication: Cardiac/Stroke 1346 (New Bag - Provider: Ayde Hamm RN)1843 (Rate/Dose Verify - Provider: Ayde Hamm RN)1909 (Handoff - Provider: Ayde Hamm RN)2057 (Rate/Dose Change - Provider: Yesenia Breen RN)2112 (Rate/Dose Verify - Provider: Yesenia Breen RN)2340 (Rate/Dose Verify - Provider: Yesenia Breen RN) 0136 (New Bag - Provider: Yesenia Breen RN)0147 (Rate/Dose Verify - Provider: Yesenia Breen RN)0359 (Rate/Dose Verify - Provider: Yesenia Breen RN)0603 (Rate/Dose Verify - Provider: Yesenia Breen RN)0718 (Handoff - Provider: Yesenia Breen RN)1154 (Stopped - Provider: Apryl Hollis RN - Comment: [Order ends at this time. Document the following action when infusion is complete: Stopped]) PRN Medication Order 03/03/2025 03/04/2025 03/05/2025 acetaminophen (Tylenol) tablet 650 mg 650 mg, oral, Every 6 hours PRN, mild pain (1-3 pain score), (1-3), Starting on Raquel 02/18/25 at 1855, For 99 days diphenhydrAMINE (BENADryl) capsule 25 mg 25 mg, oral, Every 8 hours PRN, nausea, Starting on Sat02/23/25 at 0413, For 99 days fentaNYL (Sublimaze) injection (CANCELED) As needed, Starting on Sat03/03/25 at 0941, Intraprocedure 0941 (Given - Provider: Judy Vazquez RN)0943 (Given - Provider: Judy Vazquez RN)0956 (Given - Provider: Judy Vazquez RN) HYDROcodone-acetaminophen (Montrose) 5-325 mg per tablet 1 tablet 1 tablet, oral, Every 6 hours PRN, moderate-severe pain (4-10 pain score), Starting on Sat02/21/25 at 1619, For 99 days HYDROmorphone (Dilaudid) injection 0.2 mg 0.2 mg, intravenous, Every 4 hours PRN, anticipatory pain, Starting on Sat02/22/25 at 1225, For 99 days lidocaine (Xylocaine) 2 % mouth solution (CANCELED) As needed, Starting on Sat03/03/25 at 0930, Intraprocedure 0930 (Given - Provider: Judy Vazquez RN) melatonin tablet 5 mg 5 mg, oral, Nightly PRN, sleep, Starting on Sat02/18/25 at 1855, For 99 days metoprolol tartrate (Lopressor) tablet 25 mg (COMPLETED) 25 mg, oral, Once PRN Procedure, Prior to coronary CTA, Starting on Sat03/04/25 at 1004, For 1 dose 1218 (Given - Provider: Apryl Hollis RN) midazolam (Versed) injection (CANCELED) As needed, Starting on Sat03/03/25 at 0941, Intraprocedure 0941 (Given - Provider: Judy Vazquez RN)0943 (Given - Provider: Judy Vazquez RN)0956 (Given - Provider: Judy Vazquez RN) nitroglycerin (Nitrostat) SL tablet (CANCELED) sublingual, As needed, Starting on Raquel 03/04/25 at 1511, Intraprocedure 1511 (Given - Provider: Bg Hameed RN) sodium chloride 0.9 % infusion (COMPLETED) Continuous PRN, Starting on Sat03/03/25 at 0920, Intraprocedure 0920 (New Bag - Provider: Judy Vazquez RN)1052 (Stopped - Provider: Ayde Hamm RN) sodium chloride flush 10 mL(Linked Group 1) 10 mL, intravenous, Every 8 hours PRN, line care, Starting on Raquel 02/18/25 at 1855, For 99 days Linked Groups Order Group 1: Insert peripheral IV (CANCELED) Once, On Sat02/18/25 at 1856, For 1 occurrence And Saline lock IV (CANCELED) Once, On Raquel 02/18/25 at 1856, For 1 occurrence And sodium chloride flush 10 mLJump to med 10 mL, intravenous, Every 8 hours PRN, line care, Starting on Raquel 02/18/25 at 1855, For 99 days documented in this encounter Care Teams [employer] Rep[employer] Supervisor Relationship Specialty Start Date End Date Jalen Linder DO [address] [place] [address] PCP - General 05/03/22 documented as of this encounter
--- OUTSIDE RECORDS SUMMARY | 2025-03-03 09:30 | XMS_ITS | Encounter Summary ---
Author Organization [facility] Address [address] [address] Care Team Providers Care Waiter/Waitress Second Class Name Role Phone Jalen Linder DO Primary Care Provider [phone] Reason for Visit * Auth/Cert (Routine) Specialty Diagnoses / Procedures Referred By Santiago t Referred To Contact Diagnoses Acute systolic CHF (congestive heart failure) (CMS/HCC) new onset a fib with RVR, acute systolic heart failure Procedures NO CODED SERVICE Gabriele Nick MD [address] [place] [address] Phone: tel: fax: [facility] [[email or web address]] [facility] [address] [place] [address] Phone: tel: fax: Referral ID Status Reason Start Date Expiration Date Visits Re quested Visits Authorized [id number] 1 1 Encounter Details Date Type Department Care Team (Late st Contact Info) Description 03/03/2025 9:30 AM EDT - 03/03/2025 10:30 AM EDT Surgery [facility] [[email or web address]] Heart [facility] Vascular Center Vascular Lab [address] [place] [address] Hugo Moulton MD [address] [place] [address] Cardioversion Social History Tobacco Use Types Packs/Day Years Used Date Smoking Tobacco: Never Smokeless Tobacco: Never Alcohol Use Standard Drinks/Week Comments Yes 0 (1 standard drink = 0.6 oz pur e alcohol) occasional AHC Utilities Answer Date Recorded In the past [...] any time in the past 12 m [facility], were you homeless or living in a jail (including now)? No 02/18/2025 Hunger Vital Sign [...] Sign Reading Time Taken Comments Blood Pressure 108/71 03/03/2025 9:59 AM EDT Pulse 75 03/03/2025 9:59 AM EDT Temperature 36.1 C (96.9 F) 03/03/2025 7:31 AM EDT Respiratory Rate 17 03/03/2025 9:59 AM EDT Oxygen Saturation 100% 03/03/2025 9:59 AM EDT Inhaled Oxygen Concentration - - Weight 111 kg (244 lb 12.8 oz) 03/03/2025 5:19 A M EDT Height 172.7 cm (5' 7.99 ) 02/18/2025 6:37 PM ED T Body Mass Index 36.77 02/18/2025 6:37 PM EDT documented in this encounter Functional Status * Suicidal Ideation Question Answer Date of Assessment Author 1. Wish to be (Lifetime) No 02/18/2025 5:59 PM EDT Subha Burk, RN 2. Non-Specific Active Suici mellissa Thoughts (Lifetime) No 02/18/2025 5:59 PM EDT Edel Burk RN documented as of this encounter Discharge Summaries * Ilda Preez MD - 03/05/2025 3:46 PM EDT Images from the original note were not included. Primary Pulmonary Service Discharge Summary Discharge Summary Final Discharge Diagnosis: Heart failure with reduced ejection fraction 20% Admission Diagnosis: Acute systolic CHF (congestive heart failure) (CMS/HCC) [I50.21] A-fib (CMS/HCC) [I48.91] Hospital course: Lindsay Pinto is an 59 y.o. male who came from home with past medical history of hypertension, severe LVH, ENA, obesity s/p gastric bypass presents as a direct mission for [facility] with newonset A-fib as well as new onset systolic CHF. Patient initially presenting to [place] with bloating and constipation. He states that [...] a small pericardial effusion. He was transferred [facility] for higher level of care. Patient [...] 03/22/2025 1:30 PM Jeni Murray NP [facility] 03/23/2025 1:00 PM Prabhu Chavez MD [facility] Your medication list START taking these [...] Medications These medications were sent to [facility] - [place], [place] - [address] [place] [address] [facility] [place] [address] [address] apixaban 5 mg tablet aspirin 81 mg EC tablet bisacodyl 5 mg EC tablet furosemide 20 mg tablet metoprolol succinate XL 25 mg 24 hr tablet sennosides-docusate sodium 8.6-50 mg tablet spironolactone 25 mg tablet tamsulosin 0.4 mg 24 hr capsule valsartan 40 mg tablet Lindsay has no known allergies. Disposition: Home-Health Care [facility] (06) Discharge Condition: Good Code Status: Full Code Diagnostic Results Hematology: Results from last 7 days Lab Units 03/05/25 05003/04/25 0108 WBC AUTO 10*3/uL 7.45 5.41 HEMOGLOBIN g/dL 8.1* 7.7* HEMATOCRIT % 24.2* 22.6* MCV fL 90.0 89.7 PLATELETS AUTO 10*3/uL 399 359 Chemistry: Results from last 7 days Lab Units 03/05/25 05003/04/2510703/03/25 0346 SODIUM mmol/L 132* 132* 132* POTASSIUM mmol/L 3.9 3.8 4.0 CHLORIDE mmol/L 103 103 102 CO2 mmol/L 24 25 25 BUN mg/dL 13 15 12 CREATININE mg/dL 0.73 0.66* 0.69* GLUCOSE mg/dL 85 86 88 MAGNESIUM mg/dL 1.9 2.0 2.0 CALCIUM mg/dL 8.1* 7.7* 7.8* PHOSPHORUS mg/dL 3.0 2.7 2.9 Results from last 7 days Lab Units 03/05/25 05003/04/2510703/03/25 0346 AST U/L 16 17 23 ALT [...] Pulmonary Medicine Service 03/05/2025 3:47 PM CC: House, DO Cosigned by Ruth Kramer MD at 03/08/2025 4:23 PM EDT Associated attestation - Ruth Kramer MD - 03/08/2025 4:23 PM EDT Patient was seen and examined with the resident on the same date of service, I discussed the findings and therapeutic plan with the resident/fellow, I agree with the documentation, assessment and plan as above except for any edits/updates below. Ruth Kramer MD physical medicine physician Pulmonary and critical care department [phone] documented in this encounter Discharge Instructions * [...] grams of sodium per day/low fat/low cholesterol) 0852-7768 ml fluid restriction Dietary nutrition supplement with [...] up taller/more pillowsthan normal or in recliner. [phone]. * Attachments The following attachments cannot be sent through Care Everywhere. * Heart Failure Self-Care Rkyx-ud-Usro (Cameroonian) * Indwelling Urinary Catheter Care Adult Vrnd-vd-Oxbz (Cameroonian) documented in this encounter Medications at Time of Discharge apixaban (Eliquis) 5 mg tabletIndications :Acute systolic CHF (congestive heart failure) (CMS/HCC) Take 1 tablet (5 mg) by mouth [...] this encounter Progress Notes * Radha Garcia PTA - 03/05/2025 4:00 PM EDT Physical Therapy Physical Therapy Treatment Patient Name: Lindsay Pinto : 1965 Today's Date: 03/05/2025 Problem List[1] Time : 15:25-15:50 03/05/25 1600 PT Last Visit PT Received On 03/05/25 General Subjective Pt has been cleared medically by nursing staff , food writer had seen pt walking in hallways earlier [...] available to him . PT Assessment PT Assessment/ER RN Summary pt has met all his goals [...] Angina pectoris, unstable (CMS/HCC) Cosigned by Canelo Mendieta PT at 03/08/2025 12:53 PM EDT * VITO Espinal - 03/05/2025 11:23 AM EDT Discharge Planning As per RUCC RN patient is agreeable to [facility]. Referrals made through [facility]. [facility] is able to accept. Added to AVS. [...] Eating meals?: None (Independent) Total Score OT [facility]: 24 Assessment/Plan OT Assessment OT Impairments: Decreased ADL status, Decreased safe judgment during ADL, Decreased endurance, Decreased functional mobility, Decreased IADLs, Decreased trunk control for functional activities OT Assessment/MARJORIE Summary: Pt is demo'ing (I) with transfers, [...] followed by Dr. Rosenberg 02/18/25 transfer to [facility] [[email or web address]] for higher level of care from [facility] for new A-fib, acute HFrEF, anasarca. C/o [...] machine for home monitoring. Follow-up appointment with [place] [facility] has been arranged. 03/04/25 Patient [...] Value Ventricular Rate 78 Atrial Rate 78 MD Interval 206 QRS DURATION 182 QT Interval 432 QTC CALCULATION(BAZETT) 492 P Edcouch 53 R-Edcouch -31 T Wave Edcouch 134 Impression Sinus rhythm with Premature supraventricular complexes Left axis deviation Left bundle branch block Abnormal ECG When compared with ECG of 03-MAR-2025 10:07, Premature supraventricular complexes are now Present Confirmed by Prabhu Chavez (80) on 03/04/2025 5:11:38 PM No results found for: CKTOTAL , CKMB , CKMBINDEX , TROPONINI Transesophageal echo (BERNARDINO) with possible cardioversion Result Date: 03/03/2025 1 [facility] [[email or web address]] Heart Station [address] [place] [address] [phone] (fax) Transesophageal Echocardiogram-[facility] [[email or web address]] Name: LINDSAY PINTO Study Date: 03/03/2025 09:24 AM B/P: 108 mmHg/71 mmHg HR: 84 bpm Date of : 1965 Location: [facility] [[email or web address]] Height: 68 in. Age: 59 year(s) Patient Room: 3174 Weight: 244 lb. Gender: Male Patient Status: InPt BSA: 2.22 m2 Indication: Atrial Fibrillation Examination: BERNARDINO/Limited Doppler/CFI, Agitated Saline Image Quality: Fair Patient Consent: Informed, written consent was obtained for the procedure Exam Details Contrast: I.V. dose of agitated saline Exam Location: A BERNARDINO was performed in the [place] without complications Anesthesia Pharyngeal anesthesia with viscous [...] to transverse sinus Procedure Staff Reading Group: [facility] Referring Physician: JALEN LINDER Vacuum Forming Machine Operator: ZUHAIR Caban, RDCS Ordering Physician: JOSE MENESES Limited Echo (TTE) w/wo Limited Doppler, Color Flow, Imaging Agent, Strain, 3D, Bubble Study Result Date: 03/02/2025 1 1 [facility] [[email or web address]] Heart Station [address] [place] [address] [phone] (fax) Echocardiogram-[facility] [[email or web address]] Name: LINDSAY PINTO Study Date: 03/02/2025 12:02 PM B/P: 111 mmHg/69 mmHg HR: 84 bpm Date of : 1965 Location: [facility] [[email or web address]] Height: 68 in. Age: 59 year(s) Patient [...] minimal pericardial effusion. Procedure Staff Reading Group: [facility] Referring Physician: JALEN LINDER Vacuum Forming Machine Operator: Susana Johnson BS, RDCS Ordering Physician: RUTH KRAMER No nuclear [...] with RVR, s/p BERNARDINO & CV 03/04/25 -[id number] 2, started Eliquis on 03/04/2025. 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 This note was, at least in part, completed using a voice manager of production system. Every effort was made to ensure accuracy. However, inadvertent computerized manager of production errors may be present. Vanessa Van PA-C [facility] Cardiovascular Medicine Office phone [phone] Office fax [phone] [1] No current facility-administered medications for this [...] bypass presents as a direct mission for [facility] with progressively worsening dyspnea, abdominal swelling and [...] a small pericardial effusion. He was transferred [facility] for higher level of care. At [facility] [[email or web address]], he was started on Lasix 40 mg [...] Value Ventricular Rate 78 Atrial Rate 78 MD Interval 206 QRS DURATION 182 QT Interval 432 QTC CALCULATION(BAZETT) 492 P Edcouch 53 R-Edcouch -31 T Wave Edcouch 134 Impression Sinus rhythm with Premature supraventricular complexes Left axis deviation Left bundle branch block Abnormal ECG When compared with ECG of 03-MAR-2025 10:07, Premature supraventricular complexes are now Present No results found for: CKTOTAL , CKMB , CKMBINDEX , TROPONINI Transesophageal echo (BERNARDINO) with possible cardioversion Result Date: 03/03/2025 1 [facility] [[email or web address]] Heart Station [address] [place] [address] [phone] (fax) Transesophageal Echocardiogram-[facility] [[email or web address]] Name: LINDSAY PINTO Study Date: 03/03/2025 09:24 AM B/P: 108 mmHg/71 mmHg HR: 84 bpm Date of : 1965 Location: [facility] [[email or web address]] Height: 68 in. Age: 59 year(s) Patient Room: 3174 Weight: 244 lb. Gender: Male Patient Status: InPt BSA: 2.22 m2 Indication: Atrial Fibrillation Examination: BERNARDINO/Limited Doppler/CFI, Agitated Saline Image Quality: Fair Patient Consent: Informed, written consent was obtained for the procedure Exam Details Contrast: I.V. dose of agitated saline Exam Location: A BERNARDINO was performed in the [place] without complications Anesthesia Pharyngeal anesthesia with viscous [...] to transverse sinus Procedure Staff Reading Group: [facility] Referring Physician: JALEN LINDER Vacuum Forming Machine Operator: ZUHAIR Caban, RDCS Ordering Physician: JOSE MENESES Limited Echo (TTE) w/wo Limited Doppler, Color Flow, Imaging Agent, Strain, 3D, Bubble Study Result Date: 03/02/2025 1 1 [facility] [[email or web address]] Heart Station [address] [place] [address] [phone] (fax) Echocardiogram-[facility] [[email or web address]] Name: LINDSAY PINTO Study Date: 03/02/2025 12:02 PM B/P: 111 mmHg/69 mmHg HR: 84 bpm Date of : 1965 Location: [facility] [[email or web address]] Height: 68 in. Age: 59 year(s) Patient [...] minimal pericardial effusion. Procedure Staff Reading Group: [facility] Referring Physician: JALEN LINDER Vacuum Forming Machine Operator: ZUHAIR Caban, RDCS Ordering Physician: RUTH KRAMER [...] out underlying CAD Paroxysmal A-fib with RVR [id number] 2, s/p BERNARDINO and cardioversion today and [...] appears more stable. Dr. Rosenberg is his professor of family medicine and the above was discussed with him. [...] least in part, completed using a voice manager of production system. Every effort was made to ensure accuracy. However, inadvertent computerized manager of production errors may be present. Arminda Solitario MD PGY-5 Picker Feeder [facility] Pager: [phone] [1] Current Facility-Administered Medications: acetaminophen (Tylenol) tablet 650 mg, 650 mg, oral, q6h PRN, Carol Carter CNP, 650 mg at 244 apixaban (Eliquis) tablet [...] MD, 60 mg at 03/04/25 1218 HYDROcodone-acetaminophen ([place]) 5-325 mg per tablet 1 tablet, 1 [...] Lo Vasquez MD, 3,000 mL at 02/23/251814 spironolactone (Aldactone) tablet 25 mg, 25 mg, [...] management and confirm the resident's/ fellow's Dr Kassi documentation. Please note there may be an additional personal documentation from me. Jose Meneses MD, FACC * Radha Garcia PTA - 03/04/2025 12:06 PM EDT Physical Therapy Am Cancellation note for 03/04/2025 Pt per nursing was cleared medically to receive therapy services . Upon the food writer entering the room pt was supine in the bed and on the phone with family. Pt informed food writer that his heart cath was cancelled by his physician and he was talking with family on the phone . Pt requested that food writer come back later. Attempted time: 12:00-12:02 Cosigned [...] bypass presents as a direct mission for [facility] with newonset A-fib as well as new onset systolic CHF. Patient initially presenting to [place] with bloating and constipation. He states that [...] a small pericardial effusion. He was transferred [facility] for higher level of care. Patient [...] 7 days Lab Units 03/04/25 0108 03/03/25 0346 03/02/25 0426 SODIUM mmol/L 132* 132* 131* POTASSIUM mmol/L 3.8 4.0 4.0 CHLORIDE mmol/L 103 102 103 CO2 mmol/L 25 25 BUN mg/dL 15 12 13 CREATININE mg/dL 0.66* 0.69* 0.68* GLUCOSE mg/dL 86 88 91 CALCIUM mg/dL 7.7* 7.8* 8.1* PHOSPHORUS mg/dL 2.7 2.9 2.5 MAGNESIUM mg/dL 2.0 2.0 2.0 Liver Panel: Results from last 7 days Lab Units 03/04/25 0108 03/03/25 0346 03/02/25 0426 ALBUMIN g/dL 2.8* 2.9* 3.0* BILIRUBIN [...] on recent Echo from outside hospital - [id number] score of 2 given patients history of [...] patient's Urinary Tello was upsized to 22 [place] three-way and patient was started on CBI [...] Ilda Perez MD Internal Medicine Resident, PGY-3 [facility] Primary Pulmonology Consult Service 03/04/2025 Cosigned by Ruht Kramer MD at 03/05/2025 9:04 AM EDT [...] to Eliquis Discharge planning Ruth Kramer MD physical medicine physician Pulmonary and critical care department [phone] * Radha Garcia, GEMMA - 03/04/2025 7:14 AM EDT Physical Therapy [...] stand with SBA using least restrictive assistive [id number]/28/25 03/11/25 -- Problem: PT Misc Start Date: [...] Angina pectoris, unstable (CMS/HCC) Cosigned by Canelo Mendieta PT at 03/05/2025 2:50 PM EDT * Radha Garcia PTA - 03/03/2025 4:34 PM EDT Physical Therapy [...] of treatment session . PT Assessment PT Assessment/ER RN Summary pt tolerated a 26 minute treatment [...] stand with SBA using least restrictive assistive ojrffj26/28/25 03/11/25 -- Problem: PT Misc Start Date: [...] (CMS/HCC) A-fib (CMS/HCC) Hematoma Cosigned by Canelo Mendieta, PT at 03/04/2025 3:08 PM EDT * [...] bypass presents as a direct mission for [facility] with newonset A-fib as well as new onset systolic CHF. Patient initially presenting to [place] with bloating and constipation. He states that [...] a small pericardial effusion. He was transferred [facility] for higher level of care. Patient [...] Transesophageal echo (BERNARDINO) with possible cardioversion 1 [facility] [[email or web address]] Heart Station [address] [place] [address] [phone] (fax) Transesophageal Echocardiogram-[facility] [[email or web address]] Name: LINDSAY PINTO Study Date: 03/03/2025 09:24 AM B/P: 108 mmHg/71 mmHg HR: 84 bpm Date of : 1965 Location: [facility] [[email or web address]] Height: 68 in. Age: 59 year(s) Patient Room: 3174 Weight: 244 lb. Gender: Male Patient Status: InPt BSA: 2.22 m2 Indication: Atrial Fibrillation Examination: BERNARDINO/Limited Doppler/CFI, Agitated Saline Image Quality: Fair Patient Consent: Informed, written consent was obtained for the procedure Exam Details Contrast: I.V. dose of agitated saline Exam Location: A BERNARDINO was performed in the [place] without complications Anesthesia Pharyngeal anesthesia with viscous [...] to transverse sinus Procedure Staff Reading Group: [facility] Referring Physician: JALEN LINDER Vacuum Forming Machine Operator: Susana Shoots, BS, RDCS Ordering Physician: JOSE MENESES Electrophysiology procedure Narrative: COMPLICATIONS: None. OPERATIVE TERM: DC cardioversion. An informed consent was obtained from the patient after explaining the indication, risk and benefits, and alternatives. The patient understood, agreed, and signed the consent form. The patient was brought to the clinical lab technologist and transesophageal echocardiogram was performed under conscious [...] on recent Echo from outside hospital - [id number] score of 2 given patients history of [...] patient's Urinary Tello was upsized to 22 [place] three-way and patient was started on CBI with immediate pink to clear return, CBI was clamped (02/24). - Urology recommending maintaining Tello on DC, follow-up with them. #Leukocytosis - Resolved - / Blood cultures on 02/22 and 2/ Blood cultures 02/23 No growth to date. [...] Oscar Pfeiffer MD Internal Medicine Resident, PGY-3 [facility] Primary Pulmonology Consult Service 03/03/2025 Cosigned [...] hemoglobin, planning cardiac cath Ruth Kramer MD physical medicine physician Pulmonary and critical care department [phone] * Arminda Solitario MD - 03/03/2025 3:46 [...] bypass presents as a direct mission for [facility] with progressively worsening dyspnea, abdominal swelling and [...] a small pericardial effusion. He was transferred [facility] for higher level of care. At [facility] [[email or web address]], he was started on Lasix 40 mg [...] Value Ventricular Rate 79 Atrial Rate 79 MD Interval 182 QRS DURATION 182 QT Interval 428 QTC CALCULATION(BAZETT) 490 P Edcouch 65 R-Edcouch -35 T Wave Edcouch 123 Impression Normal sinus rhythm with sinus [...] Bubble Study Result Date: 03/02/2025 1 1 [facility] [[email or web address]] Heart Station [address] [place] [address] [phone] (fax) Echocardiogram-[facility] [[email or web address]] Name: LINDSAY PINTO Study Date: 03/02/2025 12:02 PM B/P: 111 mmHg/69 mmHg HR: 84 bpm Date of : 1965 Location: [facility] [[email or web address]] Height: 68 in. Age: 59 year(s) Patient [...] minimal pericardial effusion. Procedure Staff Reading Group: [facility] Referring Physician: JALEN LINDER Vacuum Forming Machine Operator: ZUHAIR Caban, RDCS Ordering Physician: RUTH KRAMER No nuclear medicine results found for the past 12 months Relevant Imaging Results Electrophysiology procedure Narrative: COMPLICATIONS: None. OPERATIVE TERM: DC cardioversion. An informed consent was obtained from the patient after explaining the indication, risk and benefits, and alternatives. The patient understood, agreed, and signed the consent form. The patient was brought to the clinical lab technologist and transesophageal echocardiogram was performed under conscious [...] SAMER J. (58) on 03/03/2025 9:33:26 AM ASSESSMENT Acute on chronic HFrEF EF 20% probably tachycardia mediated . Clinically stable. Should rule out underlying CAD Paroxysmal A-fib with RVR [id number] 2, s/p BERNARDINO and cardioversion today and [...] least in part, completed using a voice manager of production system. Every effort was made to ensure accuracy. However, inadvertent computerized manager of production errors may be present. Arminda Solitario MD PGY-5 [employer]icker [employer] [facility] Pager: [phone] [1] Current Facility-Administered Medications: acetaminophen (Tylenol) tablet [...] at 03/03/25 1346, 17 Units/kg/hr at 03/03/25 134 HYDROcodone-acetaminophen ([place]) 5-325 mg per tablet 1 tablet, 1 tablet, oral, q6h PRN, Suleiman Corcoran MD, 1 tablet at 02/21/25 2240 HYDROmorphone (Dilaudid) injection 0.2 mg, 0.2 mg, intravenous, q4h PRN, Norm North MD, 0.2 mg at 02/22/25 190 melatonin tablet 5 mg, 5 mg, oral, Nightly PRN, Carol Carter CNP metoprolol succinate XL (Toprol-XL) 24 hr tablet 50 mg, 50 mg, oral, Daily, Arminda Solitario MD, 50 mgat 03/03/25 134 metoprolol tartrate (Lopressor) injection 5 mg, 5 mg, intravenous, Once, Gabriele Yoder MD sennosides-docusate sodium (Gertrude-Colace) 8.6-50 mg per tablet 1 tablet, 1 tablet, oral, Nightly, Carol Bermudez MD, 1 tablet at 03/02/25 210 Insert peripheral IV, , , Once AND [...] me. Jose Meneses MD, FACC * Sun CastellanosMARJORIE - 03/03/2025 2:48 PM EDT Occupational Therapy [...] OT Impairments Decreased endurance;Decreased functional mobility OT Assessment/UI UX WEB DEVELOPER Summary PT is progressing towards (I) with [...] 4 Eating meals? 4 Total Score OT [facility] 24 OT Goals: Multi-Disciplinary Problems (from Occupational [...] at 03/04/2025 3:06 PM EDT * Romina Yougn, RD - 03/03/2025 9:29 AM EDT Adult Nutrition Assessment: Name: Lindsay Pinto Date: 1965 Date of Visit: 03/03/25 Admission Dx: Acute systolic CHF (congestive heart failure) ([facility]) [I50.21] A-fib ([facility]) [I48.91] Reason for assessment: follow-up Information obtained [...] 0.69 (L) 03/03/2025 0346 NA 132 (L) 03/03/2025 0346 K 4.0 03/03/2025 034 PHOS 2.9 03/03/2025 0346 MG 2.0 03/03/2025 0346 HGB 8.2 (L) 03/03/2025 034 WBC 5.84 03/03/2025 034 Allergies: Allergies[2] Nutrition Problems: Swallowing Assessment: Swallow [...] ideal body weight (70 kg) Calorie needs: 7667-1243 kcals/day based on 25-30 kcal/kg Protein needs: [...] of Nutrition and Dietetics (AND) and the [place] [employer] of Enteral and Parenteral Nutrition (ASPEN). [...] To reach the Clinical Dietitian, please utilize [employer] chat Saturday-Saturday from 8AM-4PM or call extension [phone]. For weekends (Saturday-Saturday) and holidays, the Clinical Dietitian can be reached via pager [phone]) from 9AM-3PM. The Clinical Nutrition Department is unable to respond to [employer] chat messages on Sundays and s. [1] Past [...] bypass presents as a direct mission for [facility] with progressively worsening dyspnea, abdominal swelling and [...] a small pericardial effusion. He was transferred [facility] for higher level of care. At [facility] [[email or web address]], he was started on Lasix 40 mg [...] ??F) Temporal 89 24 100 % -- 03/01/252014 108/86 36.2 ??C (97.2 ??F) Temporal 98 [...] Value Ventricular Rate 148 Atrial Rate 148 MD Interval 136 QRS DURATION 166 QT Interval 306 QTC CALCULATION(BAZETT) 480 P Edcouch 4 R-Edcouch -50 T Wave Edcouch 159 Impression Sinus tachycardia Left axis deviation [...] Bubble Study Result Date: 03/02/2025 1 1 [facility] [[email or web address]] Heart Station [address] [place] [address] [phone] (fax) Echocardiogram-[facility] [[email or web address]] Name: LINDSAY PINTO Study Date: 03/02/2025 12:02 PM B/P: 111 mmHg/69 mmHg HR: 84 bpm Date of : 1965 Location: [facility] [[email or web address]] Height: 68 in. Age: 59 year(s) Patient [...] minimal pericardial effusion. Procedure Staff Reading Group: [facility] Referring Physician: JALEN LINDER Vacuum Forming Machine Operator: ZUHAIR Caban, RDCS Ordering Physician: RUTH KRAMER No nuclear medicine results found for the past 12 months Relevant Imaging Results Limited Echo (TTE) w/wo Limited Doppler, Color Flow, Imaging Agent, Strain, 3D, Bubble Study 1 1 [facility] [[email or web address]] Heart Station [address] [id number] [phone] (fax) Echocardiogram-[facility] [[email or web address]] Name: LINDSAY PINTO Study Date: 03/02/2025 12:02 PM B/P: 111 mmHg/69 mmHg HR: 84 bpm Date of : 1965 Location: [facility] [[email or web address]] Height: 68 in. Age: 59 year(s) Patient [...] minimal pericardial effusion. Procedure Staff Reading Group: [facility] Referring Physician: JALEN LINDER Vacuum Forming Machine Operator: ZUHAIR Caban, RDCS Ordering Physician: RUTH KRAMER SSMENT Acute HFrEF EF 10 to 15% probably tachycardia mediated with history of heart failure with improved ejection fraction. Clinically stable New onset persistent A-fib with RVR [id number] 2 Worsening GILLIAN Acute blood loss anemia [...] least in part, completed using a voice manager of production system. Every effort was made to ensure accuracy. However, inadvertent computerized manager of production errors may be present. Arminda Solitario MD PGY-5 [employer] [facility] Pager: [phone] [1] Current Facility-Administered Medications: acetaminophen (Tylenol) tablet 650 mg, 650 mg, oral, q6h PRN, Carol Carter, DIRECTOR DIGITAL SALES, 650 mg at 08 bisacodyl (Dulcolax) EC tablet 5 mg, 5 [...] 1506, 15 Units/kg/hr at 03/02/25 1506 HYDROcodone-acetaminophen ([place]) 5-325 mg per tablet 1 tablet, 1 tablet, oral, q6h PRN, Suleiman Corcoran MD, 1 tablet at 02/21/25 2240 HYDROmorphone (Dilaudid) injection 0.2 mg, 0.2 mg, intravenous, q4h PRN, Norm North MD, 0.2 mg at 02/22/25 190 melatonin tablet 5 mg, 5 mg, oral, Nightly PRN, Carol Carter, HARINI metoprolol tartrate (Lopressor) injection 5 mg, 5 [...] personal documentation from me. Jose Meneses MD, [facility] * Radha Garcia PTA - 03/02/2025 12:20 PM EDT Physical Therapy [...] pt was sitting in bedside chair , food writer introduced herself and told pt she was aware that he was concerned about making sure he could do steps before going home , this was a problem from a past hospitilazation . [employer] Furn[employer] Salesperson toldpt that she would be working on ther exercise with functional activities with incorporating standing balance strategies see details of treatment session below : Activity Tolerance Endurance Stage III Precautions Medical Precautions telemetry (portable telemetry was retrieved by food writer so pt's heart rate and rhythm can [...] light in place . PT Assessment PT Assessment/ER RN Summary pt tolerated a 42 minute treatment [...] (CMS/HCC) A-fib (CMS/HCC) Hematoma Cosigned by Canelo Mendieta, PT at 03/02/2025 3:44 PM EDT * [...] bypass presents as a direct mission for [facility] with newonset A-fib as well as new onset systolic CHF. Patient initially presenting to [place] with bloating and constipation. He states that [...] a small pericardial effusion. He was transferred [facility] for higher level of care. Patient [...] Labs: Lab Results Component Value Date WBCU -50 (A) 02/24/2025 UROBILINOGEN Normal 02/24/2025 Additional Labs: [...] reported on recent Echo from outside hospital -[id number] score of 2 given patients history of [...] patient's Urinary Tello was upsized to 22 [place] three-way and patient was started on CBI with immediate pink to clear return, CBI was clamped (02/24) #Leukocytosis - Resolved -WBC normal today and yesterday -2/2 Blood cultures on 02/22 and / Blood cultures 02/23 No growth to date [...] examined, and plans discussed with attending physician. Carlo Bermudez MD Internal Medicine Resident, PGY-3 [facility] Primary Pulmonology Consult Service 03/02/2025 Cosigned [...] for any edits/updates below. Ruth Kramer MD physical medicine physician Pulmonary and critical care department [phone] * Cinthya Amber, ER RN - 03/01/2025 1:22 PM EDT Physical Therapy [...] 1: Distant supervision Trials/Comments 1: multiple reps roselyn Treatment Comments: pt left as found, seated [...] Clicks T-Score: 18 Assessment/Plan PT Assessment PT Assessment/ER RN Summary: pt roselyn multiple sit<-.stand, HR elevated as high as 137. [employer] Furn[employer] Salesperson waiting for HR to decreased to continue. [...] Eating meals?: None (Independent) Total Score OT [facility]: 24 Assessment/Plan OT Assessment OT Impairments: Decreased endurance OT Assessment/UI UX WEB DEVELOPER Summary: Pt is progressing towards goals and has no OT concerns regarding discharge. Prognosis: Good Medical Staff Made Aware: Yes Strengths: Ability to acquire knowledge, Attitude of self, Capable of completing ADLs semi/independent, Insight into problems, Living arrangement secure, Premorbid level of function, Support of extended family/friends Barriers to Discharge: Housing layout OT Education/Comments: Men[employer] Furn[employer] Salesperson recommending shower chair to conserve energy during showering due to cardiac issues. Pt is agreeable. Plan Level of assist: 1 assist Treatment Interventions: ADL retraining, Functional transfer training, Endurance training, Cognitive reorientation, Patient/family training, Equipment evaluation/education, Neuromuscular reeducation OT Plan: Skilled OT OT Frequency: (S) ([employer] Salesperson will discuss discontinuation of OT services with [...] bypass presents as a direct mission for [facility] with progressively worsening dyspnea, abdominal swelling and [...] a small pericardial effusion. He was transferred [facility] for higher level of care. At [facility] [[email or web address]], he was started on Lasix 40 mg [...] Value Ventricular Rate 148 Atrial Rate 148 MD Interval 136 QRS DURATION 166 QT Interval 306 QTC CALCULATION(BAZETT) 480 P Edcouch 4 R-Edcouch -50 T Wave Edcouch 159 Impression Sinus tachycardia Left axis deviation [...] fraction New onset persistent A-fib with RVR [id number] 2 Worsening GILLIAN Acute blood loss anemia [...] least in part, completed using a voice manager of production system. Every effort was made to ensure accuracy. However, inadvertent computerized manager of production errors may be present. Julio Barnard MD [1] Current Facility-Administered Medications: acetaminophen (Tylenol) tablet 650 mg, 650 mg, oral, q6h PRN, Carol Carter, DIRECTOR [employer] SALES, 650 mg at 244 [COMPLETED] amiodarone in [...] MD, 40 mg at 02/21/25 2255 HYDROcodone-acetaminophen ([place]) 5-325 mg per tablet 1 tablet, 1 [...] 10 mL, intravenous, q8h PRN, Carol Carter, DIRECTOR D[employer] SALES sodium chloride irrigation solution 0.9 % 3,000 [...] personal documentation from me. Jose Meneses MD, [facility] * Carol Bermudez MD - 03/01/2025 7:33 AM EDT Images from the original note were not included. Pulmonology Progress Note Patient - Lindsay Pinto Age - 59 [facility]. [facility] 1965 [id number] Date of Admission - 02/18/2025 5:46 PM [...] bypass presents as a direct mission for [facility] with newonset A-fib as well as new onset systolic CHF. Patient initially presenting to [place] with bloating and constipation. He states that [...] a small pericardial effusion. He was transferred [facility] for higher level of care. Patient [...] 0.5 mg/min, Last Rate: 0.5 mg/min (03/01/25 7058) norEPINEPHrine, 0.01-2 mcg/kg/min, Last Rate: Stopped (02/26/25 [...] reported on recent Echo from outside hospital -[id number] score of 2 given patients history of [...] patient's Urinary Tello was upsized to 22 Ken[place] three-way and patient was started on CBI [...] Carol Bermudez MD Internal Medicine Resident, PGY-3 [facility] Primary Pulmonology Consult Service 03/01/2025 Cosigned [...] ECHO to check EF Ruth Kramer MD physical medicine physician Pulmonary and critical care department [phone] * Alber Nugent MD - 02/28/2025 7:08 [...] reported on recent Echo from outside hospital -[id number] score of 2 given patients history of [...] patient's Urinary Tello was upsized to 22 Ken[place] three-way and patient was started on CBI [...] if tolerated Repeat ECHO Ruth Kramer MD physical medicine physician Pulmonary and critical care department [phone] * Katerin Ambar Sandoval, DIRECTOR DIGITAL SALES - 02/27/2025 8:31 AM EDT Images from the original note were not included. [facility] Vascular and Wound Surgery DAILY PROGRESS NOTE [...] 4.1 3.9 4.1 4.1 4.5 CO2 mmol/L 28 24 BUN mg/dL 17 25 40* 52* [...] Service Please direct primary wound calls to: [phone] Please direct primary vascular calls to: [phone] This note was created with the assistance of a speech-recognition program. While intending to generate a document that accurately reflects the content of the encounter, no guarantee can be provided that every mistake has been identified and corrected by editing ' * Marizol Brizuela, DO - 02/27/2025 8:23 AM EDT Images [...] bypass presents as a direct mission for [facility] with new onset A-fib as well as new onset systolic CHF. Patient initially presenting to [place] with bloating and constipation. He states that [...] a small pericardial effusion. He was transferred [facility] for higher level of care. Patient does [...] CHLORIDE mmol/L 102 103 99 CO2 mmol/L BUN mg/dL 17 25 40* CREATININE mg/dL [...] 02/24. Hold digoxin for now, per cardiology. [id number] score of 2. Cardiology signing off Poor [...] Brizuela DO Internal Medicine Resident, PGY-2 [facility] 8:24 AM 02/27/25 This note was completed using a voice manager of production system. Every effort was made to ensure accuracy. However, inadvertent computerized manager of production errors may be present. Cosigned by Ruth [...] transfer to step down Ruth Kramer MD physical medicine physician Pulmonary and critical care department [phone] * Felipa Cisneros, ER RN - 02/26/2025 3:10 PM EDT Physical Therapy Physical Therapy Treatment Patient Name: Lindsay Pinto : 1965 Today's Date: 02/26/2025 Problem List[1] Start Time: 151 Stop Time: 1533 Time Calculation (min): 24 min PT Therapeutic [...] Clicks T-Score: 18 Assessment/Plan PT Assessment PT Assessment/ER RN Summary: Patient demonstrated improvements with functional mobility [...] stand with SBA using least restrictive assistive ggakqj17/28/25 03/11/25 -- Problem: PT Misc Start Date: 02/25/25 Goal Start Date Expected End Date End Date LTG - Pt will tolerate 30+ minute session with minimal rest breaks and vitals remaining in normal limits for improvements in endurance. 02/25/25 03/11/25 -- Felipa Cisneros PTA [1] Patient Active Problem List Diagnosis Gout Primary hypertension Obesity ENA (obstructive sleep apnea) Ascending aorta dilatation Acute systolic CHF (congestive heart failure) (CMS/HCC) New onset a-fib (CMS/HCC) S/P gastric bypass Pericardial effusion Moderate mitral valve regurgitation Atrial fibrillation with RVR (CMS/HCC) A-fib (CMS/HCC) Hematoma Cosigned by Canelo Mendieta PT at 03/02/2025 3:42 PM EDT * [...] bypass presents as a direct mission for [facility] with new onset A-fib as well as new onset systolic CHF. Patient initially presenting to [place] with bloating and constipation. He states that [...] a small pericardial effusion. He was transferred [facility] for higher level of care. Patient [...] CHLORIDE mmol/L 103 99 99 CO2 mmol/L BUN mg/dL 25 40* 52* CREATININE mg/dL [...] 02/24. Hold digoxin for now, per cardiology. [id number] score of 2. Cardiology signing off Poor [...] ml/h Code status: Full Summer Alexi, MS4 [facility] Marizol Brizuela DO Internal Medicine Resident, PGY-2 [facility] 2:28 PM 02/26/25 This note was completed using a voice manager of production system. Every effort was made to ensure accuracy. However, inadvertent computerized manager of production errors may be present. Cosigned by Ruth [...] and H stable, continue to hold anticoagulation Ruht Kramer MD physical medicine physician Pulmonary and critical care department [phone] * MARJORIE Landry - 02/26/2025 10:10 AM [...] IADLs;Decreased trunk control for functional activities OT Assessment/MARJORIE Summary Pt would benefit from continued skilled [...] 3 Eating meals? 4 Total Score OT [facility] 18 OT Goals: Multi-Disciplinary Problems (from Occupational [...] RVR (CMS/HCC) A-fib (CMS/HCC) Hematoma Cosigned by Megan Edmondson OT at 03/09/2025 4:56 PM EDT * Julio Barnard MD - 02/26/2025 9:59 AM EDT Images from the original note were not included. . Cardiology Progress Note Subjective HPI: Lindsay Pinto is a 59 y.o. male with a PMHx of hypertension, severe LVH, ENA, obesity s/p gastric bypass presents as a direct mission for [facility] with progressively worsening dyspnea, abdominal swelling and [...] a small pericardial effusion. He was transferred [facility] for higher level of care. At [facility] [[email or web address]], he was started on Lasix 40 mg [...] Value Ventricular Rate 148 Atrial Rate 148 MD Interval 136 QRS DURATION 166 QT Interval 306 QTC CALCULATION(BAZETT) 480 P Edcouch 4 R-Edcouch -50 T Wave Edcouch 159 Impression Sinus tachycardia Left axis deviation [...] improved ejection fraction persistent A-fib with RVR [id number] 2 Worsening GILLIAN Acute blood loss anemia [...] least in part, completed using a voice manager of production system. Every effort was made to ensure accuracy. However, inadvertent computerized manager of production errors may be present. Julio Barnard MD [1] Current Facility-Administered Medications: acetaminophen (Tylenol) tablet 650 mg, 650 mg, oral, q6h PRN, Carol Carter, DIRECTOR D[employer]ITAL SALES, 650 mg at 244 [COMPLETED] amiodarone in dextrose,iso-osm (Nexterone) IVPB 150 mg, 150 mg, intravenous, Once, Stopped at 02/22/25 1345 FOLLOWED BY [] amiodarone (Nexterone) infusion, 1 mg/min, intravenous, Continuous, Stopped at 02/22/25 1945 FOLLOWED BY amiodarone (Nexterone) infusion, 0.5 mg/min,intravenous, Continuous, Norm North MD, Last Rate: 16.67 mL/hr at 02/26/25 0801, 0.5 mg/min at 02/26/25 0801 [Held by provider] digoxin (Lanoxin) tablet 250 mcg, 250 mcg, oral, Daily, Susan Mcpherson MD, 250 mcgat 02/21/25 0844 diphenhydrAMINE (BENADryl) capsule 25 mg, 25 mg, oral, q8h PRN, Jordan Pitts MD, 25 mg at 02/25/25 0149 [Held by provider] furosemide (Lasix) tablet 40 mg, 40 mg, oral, q12h, Gabriele Yoder MD, 40 mg at 02/21/25 2255 HYDROcodone-acetaminophen ([place]) 5-325 mg per tablet 1 tablet, 1 [...] at 02/26/25 08, 75 mL/hr at 02/26/25 08 Insert peripheral IV, , , Once AND Saline lock IV, , , Once AND sodium chloride flush 10 mL, 10 mL, intravenous, q8h PRN, Carol Carter, DIRECTOR D[employer]ITAL SALES sodium chloride irrigation solution 0.9 % 3,000 mL, 3,000 mL, irrigation, Continuous, Lo Vasquez MD, 3,000 mL at 02/23/251814 [Held by provider] spironolactone (Aldactone) tablet 25 mg, 25 mg, oral, Daily, Susan Mcpherson MD, 25mg at 02/21/25842 tamsulosin (Flomax) 24 hr capsule 0.4 mg, 0.4 mg, oral, Daily, Norman Tovar MD, 0.4 mg at [Held by provider] valsartan (Diovan) tablet 80 mg, 80 mg, oral, Daily, Gabriele Yoder MD, 80 mg at 02/21/2544 Cosigned by Prabhu Chavez MD at 02/27/2025 [...] hospital on 02/18/2025. [facility] [...] effusion. As a result, patient was transferred [facility] for higher level of care. CT [...] Input/Output: Intake/Output Summary (Last 24 hours) at 02/26/2025825 Last data filed at 02/26/2025 0801 Gross [...] Burk RN (Registered Nurse) on 02/18/25 at 2186 Medication Order Taking? Sig Documenting Provider Last Dose Status ferrous sulfate 325 (65 Fe) MG tablet [id number] No Take 65 mg by mouth in the morning and at bedtime. Patient not taking: Reported on 02/18/2025 Historical Provider, More than a month Active furosemide (Lasix) 40 mg tablet [id number] Yes Take 1 tablet (40 mg) by mouth two times daily. Megan Rosenberg MD Past Week Active labetalol (Normodyne) 200 mg tablet [id number] Yes Take 1 tablet (200 mg) by mouth before breakfast, before lunch, and before evening meal. Megan Rosenberg MD Past Week Active lisinopril 10 mg tablet [id number] Yes Take 1 tablet (10 mg) by [...] BARKER MD Nephrology Fellow PGY 4 - [facility] [[email or web address]] Nephrology Pager: [phone] Phone (7am - 4pm): [phone] Cosigned by Matilda Sheppard MD at 02/26/2025 [...] from the original note were not included. [facility] Vascular Surgery DAILY PROGRESS NOTE Subjective/Interval History [...] follow the patient peripherally Katerin Sandoval, MSN, [facility] Division of Vascular/Endovascular and Wound Surgery For non-urgent questions, [employer] Chat may be used 0600 - 1800, M-F. For urgent concerns, please call [phone], or ask the acetylene torch operator to connect you to the on-retail personal banker. For after-hours concerns, please page [phone], or ask the acetylene torch operator to connect you to the on-retail personal banker. * VITO Parry - 02/25/2025 6:14 PM EDT Consult for Heart Failure rec'd on 02/19. PT/OT reporting ok to return home with home PT/OT. Patientalert and oriented. He states he lives in a split level home with his brother. He states that he has been independent without any DME prior to this. He is not sure he would like [facility] at this time but he is agreeable to preliminary referrals to be made as we are approaching a long holiday weekend. Referrals made to the only 2 provided listed as accepting his insurance: [facility] and [facility]. Follow up needed with patient before discharge to see if he is agreeable to [facility] and if providers have accepted. SW diana. * Megan Edmondson OT - 02/25/2025 4:40 PM EDT Occupational [...] Patient Summary: 59 y.o male presenting to [facility] [[email or web address]] from OSH with new afib/CHF. Pt presented [...] Equipment: None Home Living Comments: lives in bilevel, TV is in basement level, bed/bath upstairs. [...] Level of Function Prior Function Level of Kane: Independent with ADLs and functional transfers, Independent with homemaking with ambulation Prior Functional Mobility: Independent without device ADL Assistance: Independent Homemaking Assistance: Independent Driving: Independent Vocational: (works at [employer]) Prior IADLs Static Sitting Balance Static Sitting [...] Eating meals?: None (Independent) Total Score OT [facility]: 18 Assessment/Plan OT Assessment OT Impairments: Decreased ADL status, Decreased safe judgment during ADL, Decreased endurance, Decreased IADLs, Decreased trunk control for functional activities, Decreased functional mobility OT Assessment/UI UX WEB DEVELOPER Summary: Pt with decreased overall activity tolerance [...] Pt is 59 y.o male presenting to [facility] [[email or web address]] from OSH with new afib/CHF. Pt presented [...] Level of Function Prior Function Level of Kane: Independent with ADLs and functional transfers, Independent [...] Pinto Age - 59 [facility]. [facility] 1965 [id number] Date of Admission - 02/18/2025 5:46 PM [...] bypass presents as a direct mission for [facility] with new onset A-fib as well as new onset systolic CHF. Patient initially presenting to [place] with bloating and constipation. He states that [...] a small pericardial effusion. He was transferred [facility] for higher level of care. Patient [...] Labs: Lab Results Component Value Date WBCU (A) 02/24/2025 UROBILINOGEN Normal 02/24/2025 Additional Labs: [...] Will hold as digoxin level is supratherapeutic. XFVXD6fval score of 2. Cardiology on board, appreciate [...] ml/h Code status: Full Summer Alexi, MS4 [facility] [employer] Marizol Brizuela DO Internal Medicine Resident, PGY-2 [facility] 7:17 PM 02/25/25 This note was completed using a voice manager of production system. Every effort was made to ensure accuracy. However, inadvertent computerized manager of production errors may be present. Cosigned by Ruth [...] from the original note were not included. [facility] Vascular Surgery DAILY PROGRESS NOTE Subjective No [...] 4.1 4.1 4.5 4.5 4.5 CO2 mmol/L 29 28 24 25 24 BUN mg/dL 40* 52* 39* 35* 27* [...] PGY4 General Surgery Resident For non-urgent questions, [employer] Chat may be used 0600 - 1800, M-F. For urgent concerns, please call [phone], or ask the acetylene torch operator to connect you to the on-retail personal banker. For after-hours concerns, please page [phone], or ask the acetylene torch operator to connect you to the on-retail personal banker. I saw patient with residents Stable CT [...] bypass presents as a direct mission for [facility] with progressively worsening dyspnea, abdominal swelling and [...] a small pericardial effusion. He was transferred [facility] for higher level of care. At [facility] [[email or web address]], he was started on Lasix 40 mg [...] -- (!) 127 25 99 % -- 02/24/25 2000 36.7 ??C (98.1 ??F) -- 109 16 [...] Value Ventricular Rate 148 Atrial Rate 148 MD Interval 136 QRS DURATION 166 QT Interval 306 QTC CALCULATION(BAZETT) 480 P Edcouch 4 R-Edcouch -50 T Wave Edcouch 159 Impression Sinus tachycardia Left axis deviation [...] improved ejection fraction persistent A-fib with RVR [id number] 2 Worsening GILLIAN Acute blood loss anemia [...] least in part, completed using a voice manager of production system. Every effort was made to ensure accuracy. However, inadvertent computerized manager of production errors may be present. Julio Barnard MD [1] Current Facility-Administered Medications: acetaminophen (Tylenol) tablet 650 mg, 650 mg, oral, q6h PRN, Carol Carter, DIRECTOR D[employer]ITAL SALES, 650 mg at [COMPLETED] amiodarone in dextrose,iso-osm [...] MD, 40 mg at 02/21/25 2255 HYDROcodone-acetaminophen ([place]) 5-325 mg per tablet 1 tablet, 1 [...] 80 mg, 80 mg, oral, Daily, Gabriele oYder MD, 80 mg at 02/21/25 0844 Cosigned [...] CHLORIDE mmol/L 99 99 101 CO2 mmol/L 24 BUN mg/dL 40* 52* 39* CREATININE [...] hospital on 02/18/2025. [facility] [...] effusion. As a result, patient was transferred [facility] for higher level of care. CT [...] ferrous sulfate 325 (65 Fe) MG tablet [id number] No Take 65 mg by mouth in the morning and at bedtime. Patient not taking: Reported on 02/18/2025 Historical Provider, More than a month Active furosemide (Lasix) 40 mg tablet [id number] Yes Take 1 tablet (40 mg) by mouth two times daily. Megan Rosenberg MD Past Week Active labetalol (Normodyne) 200 mg tablet [id number] Yes Take 1 tablet (200 mg) by mouth before breakfast, before lunch, and before evening meal. Megan Rosenberg MD Past Week Active lisinopril 10 mg tablet [id number] Yes Take 1 tablet (10 mg) by [...] BARKER MD Nephrology Fellow PGY 4 - [facility] [[email or web address]] Nephrology Pager: [phone] Phone (7am - 4pm): [phone] Cosigned by Matilda Sheppard MD at 02/25/2025 [...] bypass presents as a direct mission for [facility] with new onset A-fib as well as new onset systolic CHF. Patient initially presenting to [place] with bloating and constipation. He states that [...] a small pericardial effusion. He was transferred [facility] for higher level of care. Patient does [...] drip. Start digoxin 250 mcg q6 IV [id number] score of 2. Cardiology on board, appreciate [...] IJ Diet: NPO Code status: Full Summer , MS4 [facility] Norm North MD Critical Care Fellow PGY 6 This note was completed using a voice manager of production system. Every effort was made to ensure accuracy. However, inadvertent computerized manager of production errors may be present. Cosigned by Ruth [...] 1:19 PM EDT Ashli rec'd call from [facility] Reina [phone] ext [phone] She would like discharge summary faxed to her at discharge. ASHLI advised that she will note in our communication tool for discharging SW. Reina is also available is assistance needed for discharge planning. * Mariana Amos PA-C - 02/24/2025 10:56 AM EDT Images from the original note were not included. [facility] Vascular Surgery DAILY PROGRESS NOTE Subjective Patient [...] 4.1 4.5 4.5 4.5 4.0 CO2 mmol/L 24 26 BUN mg/dL 52* 39* 35* [...] PA-C Vasular Surgery and Wound Care x [phone] * Julio Barnard MD - 02/24/2025 10:17 [...] bypass presents as a direct mission for [facility] with progressively worsening dyspnea, abdominal swelling and [...] a small pericardial effusion. He was transferred [facility] for higher level of care. At [facility] [[email or web address]], he was started on Lasix 40 mg [...] Value Ventricular Rate 148 Atrial Rate 148 MD Interval 136 QRS DURATION 166 QT Interval 306 QTC CALCULATION(BAZETT) 480 P Edcouch 4 R-Edcouch -50 T Wave Edcouch 159 Impression Sinus tachycardia Left axis deviation [...] improved ejection fraction persistent A-fib with RVR [id number] 2 Worsening GILLIAN Acute blood loss anemia [...] least in part, completed using a voice manager of production system. Every effort was made to ensure accuracy. However, inadvertent computerized manager of production errors may be present. Julio Barnard MD [1] Current Facility-Administered Medications: acetaminophen (Tylenol) tablet 650 mg, 650 mg, oral, q6h PRN, Carol Weberkl, DIRECTOR D[employer]ITAL SALES, 650 mg at 244 [COMPLETED] amiodarone in [...] MD, 40 mg at 02/21/25 2255 HYDROcodone-acetaminophen ([place]) 5-325 mg per tablet 1 tablet, 1 [...] Daily, Norman Tovar MD, 0.4 mg at [Held by provider] valsartan (Diovan) tablet 80 [...] Tello catheter exchanged yesterday for a 22 [place] three-way placed. Draining clear yellow urine output [...] (!) 147 16 96 % -- 02/23/25 193 -- 36.6 ??C (97.9 ??F) Temporal (!) [...] CHLORIDE mmol/L 99 101 102 CO2 mmol/L BUN mg/dL 52* 39* 35* CREATININE mg/dL [...] clear yellow urine output Interval Imaging Findings: @[id number]@ Assessment: Lindsay Pinto is a 59 y.o. [...] from the original note were not included. [facility] Department of Urology DAILY PROGRESS NOTE Subjective No acute events overnight, patient has remained stable. No bladder spasms or catheter related complications. Patient is resting comfortably Tello was upsized to 22 [place] three-way and patient was started on CBI [...] bypass presents as a direct mission for [facility] with new onset A-fib as well as new onset systolic CHF. Patient initially presenting to [place] with bloating and constipation. He states that [...] a small pericardial effusion. He was transferred [facility] for higher level of care. Patient [...] anticoagulation at this time. Continue amiodarone drip. [id number] score of 2. Cardiology on board, appreciate [...] NPO Code status: Full Summer Alexi, MS4 [facility] Norm North MD Critical Care Fellow PGY 6 This note was completed using a voice manager of production system. Every effort was made to ensure accuracy. However, inadvertent computerized manager of production errors may be present. Cosigned by Ruth [...] from the original note were not included. [facility] Vascular Surgery DAILY PROGRESS NOTE Subjective No [...] present. Bilateral pleural effusions. There is a gykyi-yt-eqrztvun pericardial effusion. Aorta is unremarkable. Mild to [...] Department of Surgery Department of Medical Education [place] [facility] [employer] [facility] [phone] [email or web address] * Julio Barnard MD - 02/23/2025 9:19 [...] bypass presents as a direct mission for [facility] with progressively worsening dyspnea, abdominal swelling and [...] a small pericardial effusion. He was transferred [facility] for higher level of care. At [facility] [[email or web address]], he was started on Lasix 40 mg [...] -- (!) 130 10 100 % -- 08/26/25 0200 -- -- -- (!) 136 12 99 % -- 02/23/25 0100 -- -- -- (!) 142 12 95 % -- 02/23/25 0000 -- 36.3 ??C (97.3 ??F) Temporal (!) 132 12 98 % -- 02/22/25 2300 -- -- -- (!) 130 20 100 [...] 166 QT Interval 364 QTC CALCULATION(BAZETT) 551 R-Edcouch -18 T Wave Edcouch 151 Impression Atrial fibrillation with rapid ventricular [...] present. Bilateral pleural effusions. There is a jpiem-dl-tsjxoswf pericardial effusion. Aorta is unremarkable. Mild to [...] improved ejection fraction persistent A-fib with RVR [id number] 2 Small pericardial effusion on Echo Primary [...] least in part, completed using a voice manager of production system. Every effort was made to ensure accuracy. However, inadvertent computerized manager of production errors may be present. Julio Barnard MD [1] Current Facility-Administered Medications: acetaminophen (Tylenol) tablet 650 mg, 650 mg, oral, q6h PRN, Carol Carter, DIRECT[employer], 650 mg at [COMPLETED] amiodarone in dextrose,iso-osm [...] MD, 40 mg at 02/21/25 2255 HYDROcodone-acetaminophen ([place]) 5-325 mg per tablet 1 tablet, 1 [...] infusion, 0.01-2 mcg/kg/min, intravenous, Continuous, Norm North MD Insert peripheral IV, , , Once [...] from the original note were not included. [facility] Department of Urology DAILY PROGRESS NOTE Subjective [...] present. Bilateral pleural effusions. There is a grpsx-ey-nybcilur pericardial effusion. Aorta is unremarkable. Mild to [...] from the original note were not included. [facility] Medicine Daily Progress Note - 02/22/2025 9:39 AM; Room: [facility]/3137- Admission: 02/18/2025 5:46 PM; Length of stay: 4 days THE HOSPITALIST TEAM PREFERS TO USE [employer] FOR NON-URGENT COMMUNICATION 7AM- 7PM. IF I DO NOT RESPOND WITHIN 20 MINUTES OR URGENT MATTERS, PLEASE CALL THROUGH THE PROCESS ENGINEER. FROM 7PM-7AM, PLEASE PAGE [phone](COVR). Code Status: Full Code Barriers to Discharge: [...] Plan Acute systolic CHF (congestive heart failure) ([facility]) - unable to assess NYHA class - BNP over 5000 at outside facility was 491 at [facility] -CXR showed cardiomegaly with vascular congestion and CT of the abdomen showed anasarca and ascites -Echocardiogram was completed at [place] which showed an EF of 15 to 20%, moderate pulmonary hypertension, moderate mitral valve regurgitation and small pericardial effusion - Continue Lasix 40 mg PO twice daily -Strict intake and output, daily weights. Currently net negative 8.4L - continue Toprol-XL 100mg daily - Aldactone 25 mg and valsartan held due to hypotension - Cardiology following, appreciate recommendations New onset a-fib ([facility]) Atrial fibrillation with RVR ([facility]) - Patient found to be [...] Units 02/22/25 0707 02/22/25 0658 02/22/25 0500 02/19/2541702/18/25 184 WBC AUTO 10*3/uL -- 10.73* 12.27* < [...] Units 02/22/25 0658 02/22/25 0500 02/21/25 0355 02/20/2541502/19/2541702/18/25 184 SODIUM mmol/L -- -- 139 140 141 [...] TSH 3.22 02/18/2025 No results found for: [id number] , IRON , TIBC , C3 , [...] Self Care () Signed Suleiman Corcoran MD [facility] Medicine 02/22/2025 9:39 AM * Julio Barnard [...] bypass presents as a direct mission for [facility] with progressively worsening dyspnea, abdominal swelling and [...] a small pericardial effusion. He was transferred [facility] for higher level of care. At [facility] [[email or web address]], he was started on Lasix 40 mg [...] 166 QT Interval 364 QTC CALCULATION(BAZETT) 551 R-Edcouch -18 T Wave Edcouch 151 Impression Atrial fibrillation with rapid ventricular [...] improved ejection fraction persistent A-fib with RVR [id number] 2 Small pericardial effusion on Echo Primary [...] least in part, completed using a voice manager of production system. Every effort was made to ensure accuracy. However, inadvertent computerized manager of production errors may be present. Julio Barnard MD [1] Current Facility-Administered Medications: acetaminophen (Tylenol) tablet 650 mg, 650 mg, oral, q6h PRN, Carol Carter, [employer], 650 mg at 244 digoxin (Lanoxin) tablet 250 mcg, 250 mcg, oral, Daily, Susan Mcpherson MD, 250 mcg at 02/21/25 0844 furosemide (Lasix) tablet 40 mg, 40 mg, oral, q12h, Gabriele Yoder MD, 40 mg at 02/21/25 2255 heparin infusion 100 units/mL in D5W, 0-28 Units/kg/hr, intravenous, Continuous, Carol Carter CNP,Last Rate: 14.2 mL/hr at 02/22/25 0701, 12 Units/kg/hr at 02/22/25 0701 HYDROcodone-acetaminophen ([place]) 5-325 mg per tablet 1 tablet, 1 tablet, oral, q6h PRN, Suleiman Corcoran MD, 1 tablet at 02/21/25 2240 melatonin tablet 5 mg, 5 mg, oral, Nightly PRN, Carol Carter, DIRECT[employer] metoprolol succinate XL (Toprol-XL) 24 hr tablet 100 mg, 100 mg, oral, 2 times daily, Gabriele Yoder MD, 100 mg at 02/21/25 1630 metoprolol tartrate (Lopressor) injection 5 mg, 5 mg, intravenous, Once, Gabriele Yoder MD Insert peripheral IV, , , Once AND Saline lock IV, , , Once AND sodium chloride flush 10 mL, 10 mL, intravenous, q8h PRN, Carol Carter, HARINI spironolactone (Aldactone) tablet 25 mg, 25 mg, [...] bypass presents as a direct mission for [facility] with progressively worsening dyspnea, abdominal swelling and [...] a small pericardial effusion. He was transferred [facility] for higher level of care. At [facility] [[email or web address]], he was started on Lasix 40 mg [...] 182 QT Interval 334 QTC CALCULATION(BAZETT) 439 R-Edcouch -41 T Wave Edcouch 144 Impression Atrial fibrillation with rapid ventricular [...] KULDEEP, MEGAN ([id number]) on 02/19/2025 9:31:28 AM ECG 12 lead Atrial fibrillation with rapid ventricular response Left axis deviation Left bundle branch block Abnormal ECG No previous ECGs available Confirmed by MD ROSENBERG EHAB ([id number]) on 02/19/2025 8:53:08 AM ASSESSMENT acute HFrEF EF 10 to 15% probably tachycardia mediated with history of heart failure with improved ejection fraction persistent A-fib with RVR [id number] 2 Small pericardial effusion on Echo Primary [...] least in part, completed using a voice manager of production system. Every effort was made to ensure accuracy. However, inadvertent computerized manager of production errors may be present. Gabriele Yoder MD [1] Current Facility-Administered Medications: acetaminophen (Tylenol) tablet 650 mg, 650 mg, oral, q6h PRN, Carol Carter [employer], 650 mg at 311 digoxin (Lanoxin) tablet [...] 5 mg, oral, Nightly PRN, Carol Pirkl, DIRECTOR [employer] SALES metoprolol succinate XL (Toprol-XL) 24 hr tablet [...] included. Hospital Medicine Daily Progress Note - 02/21/2025 10:09 AM; Room: 3137/3137-01 Admission: 02/18/2025 5:46 PM; Length of stay: 3 days THE HOSPITALIST TEAM PREFERS TO USE [employer] CHAT FOR NON-URGENT COMMUNICATION 7AM- 7PM. IF I DO NOT RESPOND WITHIN 20 MINUTES OR URGENT MATTERS, PLEASE CALL THROUGH THE PROCESS ENGINEER. FROM 7PM-7AM, PLEASE PAGE [phone](COVR). Code Status: Full Code Barriers to Discharge: [...] 5000 at outside facility was 491 at [facility] -CXR showed cardiomegaly with vascular congestion and CT of the abdomen showed anasarca and ascites -Echocardiogram was completed at [place] which showed an EF of 15 to [...] Results from last 7 days Lab Units 02/21/2535402/20/2541502/19/2541702/18/25 1846 WBC AUTO 10*3/uL 7.24 -- 5.92 7.49 HEMOGLOBIN g/dL 15.4 14.8 13.9 14.4 HEMATOCRIT % 44.4 42.9 40.9 41.7 MCV fL 89.3 -- 91.9 91.2 PLATELETS AUTO 10*3/uL 177 -- 165 195 INR -- -- -- 1.47* Chemistry: Results from last 7 days Lab Units 02/21/25 0355 02/20/25 0416 02/19/2541702/18/25 1846 SODIUM mmol/L 139 140 141 136 [...] TSH 3.22 02/18/2025 No results found for: [id number] , IRON , TIBC , C3 , [...] Self Care () Signed Suleiman Corcoran MD Hospital Medicine 02/21/2025 10:09 AM * Kamran Del Valle MD - 02/20/2025 12:54 PM EDT Images from the original note were not included. [facility] Medicine Daily Progress Note - 02/20/2025 12:54 PM; Room: [address] [place] [address] Admission: 02/18/2025 5:46 PM; Length of stay: 2 days THE HOSPITALIST TEAM PREFERS TO USE [employer] FOR NON-URGENT COMMUNICATION 7AM- 7PM. IF I DO NOT RESPOND WITHIN 20 MINUTES OR URGENT MATTERS, PLEASE CALL THROUGH THE PROCESS ENGINEER. FROM 7PM-7AM, PLEASE PAGE [phone](COVR). Code Status: Full Code Barriers to Discharge: [...] 5000 at outside facility was 491 at [facility] -CXR showed cardiomegaly with vascular congestion and CT of the abdomen showed anasarca and ascites -Echocardiogram was completed today at [place] which showed an EF of 15 to [...] Units 02/20/25 0416 02/19/25 0418 02/18/25 1846 WBC AUTO 10*3/uL -- 5.92 7.49 [...] TSH 3.22 02/18/2025 No results found for: [id number] , IRON , TIBC , C3 , [...] KULDEEP, MEGAN ([id number]) on 02/19/2025 9:31:28 AM ECG 12 lead Atrial fibrillation with rapid ventricular response Left axis deviation Left bundle branch block Abnormal ECG No previous ECGs available Confirmed by MD KULDEEP, EHAB ([id number]) on 02/19/2025 8:53:08 AM Discharge Planning Expected Discharge Disposition: Home or Self Care () Signed Kamran Del Valle MD [facility] Medicine 02/20/2025 12:54 PM * Julio [...] bypass presents as a direct mission for [facility] with progressively worsening dyspnea, abdominal swelling and [...] a small pericardial effusion. He was transferred [facility] for higher level of care. At [facility] [[email or web address]], he was started on Lasix 40 mg [...] -- -- -- -- 02/19/25 0849 (!) 116/95 36.2 ??C (97.2 ??F) -- (!) 116 [...] 182 QT Interval 334 QTC CALCULATION(BAZETT) 439 R-Edcouch -41 T Wave Edcouch 144 Impression Atrial fibrillation with rapid ventricular response Left axis deviation Left bundle branch block Abnormal ECG When compared with ECG of 18-FEB-2025 19:10, No significant change was found Confirmed by MD KULDEEP, AB ([id number]) on 02/19/2025 9:31:28 AM No results [...] least in part, completed using a voice manager of production system. Every effort was made to ensure accuracy. However, inadvertent computerized manager of production errors may be present. Julio Barnard MD PGY-2 Internal Medicine Cardiology Consult Service [facility] [1] Current Facility-Administered Medications: acetaminophen (Tylenol) tablet 650 mg, 650 mg, oral, q6h PRN, Carol Pirkl, DIRECTOR [employer] SALES digoxin (Lanoxin) tablet 250 mcg, 250 mcg, oral, Daily, Susan Mcpherson MD furosemide (Lasix) injection 40 mg, 40 mg, intravenous, BID AC, Carol Pirkl, DIRECT[employer], 40 mg at 02/20/25 0645 heparin infusion 100 units/mL in D5W, 0-28 Units/kg/hr, intravenous, Continuous, Carolmadison Carter, DIRECTOR [employer] SAL[employer],Last Rate: 17.7 mL/hr at 02/20/25 0621, 15 Units/kg/hr at 02/20/25 0621 lisinopril tablet 10 mg, 10 mg, oral, Daily, Carol Pirkl, DIRECT[employer], 10 mg at 02/19/25 0851 melatonin tablet 5 mg, 5 mg, oral, Nightly PRN, Carol Pirkl, DIRECTOR [employer] SALES metoprolol succinate XL (Toprol-XL) 24 hr tablet 100 mg, 100 mg, oral, 2 times daily, Gabriele Yoder MD Insert peripheral IV, , , Once AND Saline lock IV, , , Once AND sodium chloride flush 10 mL, 10 mL, intravenous, q8h PRN, Carol Pirkl, DIRECTOR [employer]ES spironolactone (Aldactone) tablet 25 mg, 25 mg, [...] Progress Note - 02/19/2025 2:34 PM; Room: [address] [place] [address] Admission: 02/18/2025 5:46 PM; Length of stay: 1 days THE HOSPITALIST TEAM PREFERS TO USE [employer] FOR NON-URGENT COMMUNICATION 7AM- 7PM. IF I DO NOT RESPOND WITHIN 20 MINUTES OR URGENT MATTERS, PLEASE CALL THROUGH THE PROCESS ENGINEER. FROM 7PM-7AM, PLEASE PAGE [phone](COVR). Code Status: Full Code Barriers to Discharge: [...] Plan Acute systolic CHF (congestive heart failure) ([facility]) - unable to assess NYHA class - BNP over 5000 at outside facility was 491 at [facility] -CXR showed cardiomegaly with vascular congestion and CT of the abdomen showed anasarca and ascites -Echocardiogram was completed today at [place] which showed an EF of 15 to 20%, moderate pulmonaryhypertension, moderate mitral valve regurgitation and small pericardial effusion -Patient noted to have EF 55% and this is significant drop in EF her -Begin Lasix 40 mg IV twice daily -Strict intake and output, daily weights - continue lisinopril, Toprol-XL and Aldactone 25 mg -Patient to have cardiac cath New onset a-fib ([facility]) - Patient found to be [...] Units/kg/hr, Last Rate: 15 Units/kg/hr (02/19/25 0934) Pertinent Investigations Hematology: Results from last 7 [...] TSH 3.22 02/18/2025 No results found for: [id number] , IRON , TIBC , C3 , [...] Signed Kamran Del Valle MD Hospital Medicine 02/19/2025 2:34 PM * Bell Esquivel RN - 02/19/2025 12:02 PM EDT Pt admitted to hospital for acute systolic CHF. Pt's [facility] from [facility] on 02/18/25 estimated LVEF 15-20%, which qualifies pt for cardiac rehab (CR) therapy with HF diagnosis. Medicare defines chronic heart failure as ???patients with left ventricular ejection fraction (LVEF) of 35% or less and [place] Heart Association (NYHA) class II to IV symptoms despite being on optimal heart failure therapy for at least 6 weeks.?? I will watch for updates and follow up with pt, if appropriate. CARIDAD Glaser ip paralegal Outpatient Coordinator Cardiopulmonary Rehab documented in this encounter H&P Notes * Norm North MD - 02/22/2025 7:44 AM EDT Images from the original note were not included. Medical ICU History & Physical Patient - Lindsay Pinto Age - 59 y.o. [facility] 1965 [id number] Date of Admission - 02/18/2025 5:46 PM [...] bypass presents as a direct mission for [facility] with new onset A-fib as well as new onset systolic CHF. Patient initially presenting to [place] with bloating and constipation. He states that [...] a small pericardial effusion. He was transferred [facility] for higher level of care. Patient does [...] ABG: No results found for: PHART , SSW3YDR , PO2ART , KSC0IDT , IONCALART No results found for: PHVEN , BFF4QHR , PO2VEN , XNR7KHT , IONCALVEN CBC: Results from last 7 [...] digoxin Plan for BERNARDINO and cardioversion today [id number] score of 2 Acute decompensated systolic heart [...] 02/19/25 1214 Code Status: Full Code Signed Cristal Truong, MS4 [facility] Norm North MD Critical Care Fellow PGY [...] 0624, 14.3 Units/kg/hr at 02/22/25 0624 HYDROcodone-acetaminophen ([place]) 5-325 mg per tablet 1 tablet, 1 [...] setting of anticoagulation Hyperbilirubinemia GILLIAN - prerenal ENA Morbid obesity s/p gastric bypass I [...] PM THE HOSPITALIST TEAM PREFERS TO USE [employer] FOR NON-URGENT COMMUNICATION 7AM- 7PM. IF I DO NOT RESPOND WITHIN 20 MINUTES OR URGENT MATTERS, PLEASE CALL THROUGH THE PROCESS ENGINEER. FROM 7PM-7AM, PLEASE PAGE [phone](COVR). Chief Complaint Direct admission from [facility] with new afib/CHF History of Present Illness Lindsay Pinto is an 59 y.o. male who came from home with past medical history of hypertension, severe LVH, ENA, obesity s/p gastric bypass presents as a direct mission for [facility] with newonset A-fib as well as new onset systolic CHF. Patient initially presenting to [place] with bloating and constipation. He states that [...] a small pericardial effusion. He was transferred [facility] for higher level of care. Review [...] Plan Acute systolic CHF (congestive heart failure) ([facility]) - BNP over 5000 at outside facility was 491 at [facility] -CXR showed cardiomegaly with vascular congestion and CT of the abdomen showed anasarca and ascites -Echocardiogram was completed today at [place] which showed an EF of 15 to 20%, moderate pulmonaryhypertension, moderate mitral valve regurgitation and small pericardial effusion -Begin Lasix 40 mg IV twice daily -Strict intake and output, daily weights -Will make n.p.o. for possible right heart cath -Troponin mildly elevated, likely type II, will continue to trend New onset a-fib ([facility]) - Patient found to be [...] this hospital stay by a member of [facility] Medicine. Past Medical History Medical History[1] Past [...] Procedure Abnormality Status --------- ------ CBC auto differential[[id number]] Please view results for these tests on the individual orders. B-TYPE NATRIURETIC PEPTIDE TSH3 REFLEX TO FT4 CBC WITH AUTO DIFFERENTIAL APTT APTT ANTI-XA (HEPARIN LEVEL) APTT PLATELET COUNT Imaging No image results found. Signed Carol Carter [facility] Medicine 02/18/2025 6:59 PM [1] Past [...] hospital on 02/18/2025. [facility] [...] effusion. As a result, patient was transferred [facility] for higher level of care. CT [...] ferrous sulfate 325 (65 Fe) MG tablet [id number] No Take 65 mg by mouth in the morning and at bedtime. Patient not taking: Reported on 02/18/2025 Historical ProviderMD More than a month Active furosemide (Lasix) 40 mg tablet [id number] Yes Take 1 tablet (40 mg) by mouth two times daily. Megan Rosenberg MD Past Week Active labetalol (Normodyne) 200 mg tablet [id number] Yes Take 1 tablet (200 mg) by mouth before breakfast, before lunch, and before evening meal. Megan Rosenberg MD Past Week Active lisinopril 10 mg tablet [id number] Yes Take 1 tablet (10 mg) by [...] hesitate to contact us for any questions/concerns. Srinivas continue to follow along with you. Divya BARKER MD Nephrology Fellow PGY 4 - [facility] [[email or web address]] Nephrology Pager: [phone] Phone (7am - 4pm): [phone] [1] No Known Allergies [2] Past Medical [...] from the original note were not included. [facility] Vascular/Endovascular Surgery Rn Paralegal Complaint Transfer from outside facility due to [...] present. Bilateral pleural effusions. There is a yvekg-lu-wmrksnbr pericardial effusion. Aorta is unremarkable. Mild to [...] Department of Surgery Department of Medical Education [place] [facility] and [employer] [facility] [phone] [email or web address] If continues to drop will consider angiogram For non-urgent questions, [employer] Chat may be used [phone], M-F. For urgent concerns, please call [phone], or ask the acetylene torch operator to connect you to the on-retail personal banker. For after-hours concerns, please page [phone], or ask the acetylene torch operator to connect you to the on-retail personal banker. [1] Past Medical History: Diagnosis Date Hypertension [...] from the original note were not included. [facility] Department of Urology CONSULTATION Reason for Consult: Hematuria History of Present Illness: Lindsay Pinto is a 59 y.o. male with a past medical history of hypertension, left ventricular hypertrophy, ENA, obesity status post gastric bypass who presented to [facility] with bloating and constipation. He was transferred to [facility] [[email or web address]] on 02/18/2025 due to new onset A-fib [...] present. Bilateral pleural effusions. There is a fokzi-kj-wduwokot pericardial effusion. Aorta is unremarkable. Mild to [...] unremarkable urologic history who was transferred from [facility] for new onset A-fib with RVR and admitted for congestive heart failure. Urology was consulted for hematuria after placement of the Tello catheter. CT imaging on 02/22/2025 shows evidenceof bilateral rectus sheath hematomas. Additionally, there is evidence of mild hydronephrosis that was not present on CT imaging of abdomen pelvis on 02/21/2025 and a mild bump in creatinine at 1.43, up from baseline of 0.99 yesterday. There is a Tello catheter in place on CT, however it is difficultto discern from imaging whether or not it is appropriately positioned due to the size of the hematoma. Tello catheter was hand irrigated at bedside with no obstruction present, the balloon deflated and Tello repositioned to rule out inappropriate positioning of the Tello catheter. Elevated creatinine could be multifactorial in the setting of contrast imaging, hypotension, and possibly compressionof the lower urinary tract by the hematoma [...] pending trend of Cr and I/O Kade Krystian Medical Student, MS-4 2:07 PM 02/22/25 I [...] 650 mg, oral, q6h PRN, Carol Carter, DIRECTOR DIGITAL SALES, 650 mg at [COMPLETED] amiodarone in dextrose,iso-osm [...] MD, 40 mg at 02/21/25 2255 HYDROcodone-acetaminophen ([place]) 5-325 mg per tablet 1 tablet, 1 [...] mL, intravenous, q8h PRN, Carol Carter, HARINI [Held by provider] spironolactone (Aldactone) tablet 25 [...] Lindsay Pinto Date: 1965 Date of Visit: 08/22/25 Admission Dx: Acute systolic CHF (congestive heart failure) ([facility]) [I50.21] Reason for assessment: MD [...] access to food prepared their own meals relief captain Skin Integrity: documented to be WDL Edema: [...] Question: Reason for NPO: Answer: Operation/Procedure 02/18/25 3463 Nutrition Risk: Moderate Nutrition Needs: Needs based on: ideal body weight (70 kg) Calorie needs: 6974-5125 kcals/day based on 25-30 kcal/kg Protein needs: [...] of Nutrition and Dietetics (AND) and the [place] [employer] of Enteral and Parenteral Nutrition (ASPEN). [...] To reach the Clinical Dietitian, please utilize [employer] chat Saturday-Saturday from 8AM-4PM or call extension [phone]. For weekends (Saturday-Saturday) and hols, the Clinical Dietitian can be reached via pager ([phone]) from 9AM-3PM. The Clinical Nutrition Department is unable to respond to [employer] chat messages on Sundays and s. [1] Past [...] bypass presents as a direct mission for [facility] with progressively worsening dyspnea, abdominal swelling and [...] a small pericardial effusion. He was transferred [facility] for higher level of care. At [facility] [[email or web address]], he was started on Lasix 40 mg [...] -- 110 17 98 % -- -- 02/19/25 021 -- -- -- (!) 127 -- 100 % -- -- 080 -- -- -- 103 -- 99 % [...] (!) 137 20 96 % -- -- 02/18/25 183 -- -- -- (!) 113 17 -- 1.727 m (5' 7.99 ) 118 kg (259 lb 12.8 oz) 02/18/251755 -- -- -- (!) 128 21 99 % -- -- 02/18/251752 (!) 117/94 -- -- (!) 144 (!) [...] 170 QT Interval 314 QTC CALCULATION(BAZETT) 467 R-Edcouch -47 T Wave Edcouch 150 Impression Atrial fibrillation with rapid ventricular [...] least in part, completed using a voice manager of production system. Every effort was made to ensure accuracy. However, inadvertent computerized manager of production errors may be present. Julio Barnard MD PGY-2 Internal Medicine Cardiology Consult Service [facility] [1] Family History Problem Relation Name Age [...] 2:28 AM EDT Patient Name: Lindsay Pinto DOB: 1965 Primary Care Physician: Jalen Linder MD [...] voiced no concerns at this time. The food writer urged the primary RN to call the rapid team if any concerns arise overnight. Paul Luna RN Rapid Response Team Nurse [phone] 03/01/2025 2:28 AM * Cinthya Diez RN [...] Cinthya Diez RN Rapid Response Team Nurse [phone] 02/28/2025 2:32 PM * Radha Aguilar RN [...] Radha Aguilar RN Rapid Response Team Nurse [phone] 02/27/2025 11:35 PM * Shantelle Heck RN - 02/22/2025 7:22 AM EDT [employer] Salesperson called rapid at 0607 am pt was hypotensive BP 53/38 BED LASTER nurse at bedside 0609 am. MD notified came to bedside, orders were placed. 0700 BP 91/63. Day shift BED LASTER nurse at bedside. documented in this encounter [...] hemodynamic stability Outcome: Not Progressing Flowsheets (Taken 03/03/2025730) Maintains optimal cardiac output and hemodynamic stability: Monitor blood pressure and heart rate Goal: Absence of cardiac dysrhythmias or at baseline Outcome: Not Progressing Flowsheets (Taken 03/03/2025730) Absence of cardiac dysrhythmias or at baseline: [...] hemodynamic stability Outcome: Not Progressing Flowsheets (Taken 03/01/2025 0746) Maintains optimal cardiac output and hemodynamic stability: [...] 5000 at outside facility was 491 at [facility] -CXR showed cardiomegaly with vascular congestion and CT of the abdomen showed anasarca and ascites -Echocardiogram was completed at [place] which showed an EF of 15 to [...] 5000 at outside facility was 491 at [facility] -CXR showed cardiomegaly with vascular congestion and CT of the abdomen showed anasarca and ascites -Echocardiogram was completed at [place] which showed an EF of 15 to [...] 5000 at outside facility was 491 at [facility] -CXR showed cardiomegaly with vascular congestion and CT of the abdomen showed anasarca and ascites -Echocardiogram was completed today at [place] which showed an EF of 15 to [...] WNL * Assessment & Plan Note - Kmaran Del Valle MD - 02/20/2025 12:57 PM [...] Problem(s): Acute systolic CHF (congestive heart failure) ([facility]) - unable to assess NYHA class - BNP over 5000 at outside facility was 491 at [facility] -CXR showed cardiomegaly with vascular congestion and CT of the abdomen showed anasarca and ascites -Echocardiogram was completed today at [place] which showed an EF of 15 to [...] been completed. Barriers to Discharge: Transfer from [place] with new onset Afib and CHF. CXR [...] Problem(s): Acute systolic CHF (congestive heart failure) ([facility]) - BNP over 5000 at outside facility was 491 at [facility] -CXR showed cardiomegaly with vascular congestion and CT of the abdomen showed anasarca and ascites -Echocardiogram was completed today at [place] which showed an EF of 15 to [...] * Assessment & Plan Note - Carol Crater CNP - 02/18/2025 11:00 PM EDTAssociated Problem(s): [...] Info) Description 03/18/2025 10:30 AM EDT Follow-Up [facility] [[email or web address]] Urology [address] [place] [id number] Haily Botello, DIRECTOR DIGITAL SALES [address] [place], [place] [id number] 03/22/2025 1:30 PM EDT Follow-Up [facility] Vascular and Endovascular Surgery [address] [place] [id number] Jeni Murray NP [address] [facility] [address] [place] [address] 03/23/2025 1:00 PM EDT Follow-Up [facility] [place] [address] [place] [address] Prabhu Chavez MD [address] [place] [address] Scheduled Referrals Name Type Priority Associated Diagnoses Order Schedule Ambulatory referral to Cardiac Rehab Outpatient Referral Routine Chronic HFrEF (heart failure with reduced ejection fraction) ([facility]) Expected: 02/19/2025 (Approximate), Expires: 08/22/2025 Ambulatory referral to Cardiac Rehab Outpatient Referral Routine Chronic HFrEF (heart failure with reduced ejection fraction) ([facility]) Expected: 02/19/2025 (Approximate), Expires: 08/22/2025 [...] CARDIOVERSION Routine 03/03/2025 10:01 AM EDT A-fib ([facility]) ECG 12-LEAD Routine 03/03/2025 9:26 AM EDT [...] - 10.60 10*3/uL 03/05/2025 5:48 AM EDT [facility] ([facility]) RBC 2.69(L) 4.20 - 5.70 10*6/uL 03/05/2025 5:48 AM EDT [facility] ([facility]) Hemoglobin 8.1(L) 13.0 - 17.0 g/dL 03/05/2025 5:48 AM EDT [facility] ([facility]) Hematocrit 24.2(L) 39.0 - 50.0 % 03/05/2025 5:48 AM EDT [facility] ([facility]) MCV 90.0 82.0 - 98.0 fL 03/05/2025 5:48 AM EDT [facility] ([facility]) MCH 30.1 27.0 - 33.0 pg 03/05/2025 5:48 AM EDT [facility] ([facility]) MCHC 33.5 32.0 - 35.0 g/dL 03/05/2025 5:48 AM EDT [facility] ([facility]) RDW 16.3(H) 11.5 - 15.0 % 03/05/2025 5:48 AM EDT [facility] ([facility]) Platelets 399 150 - 400 10*3/uL 03/05/2025 5:48 AM EDT [facility] ([facility]) Blood Venous blood specimen / Unknown Venipuncture / Unknown 03/05/2025 5:00 AM EDT 03/05/2025 5:36 AM EDT us Ruth Kramer MD LAB BLOOD ORDERABLES Final Resul t Performing Organization Address City/[facility]/ZIP Co de Phone Number [facility]) [address] [place] [address] * Phosphorus (03/05/2025 5:00 AM EDT) Phosphorus 3.0 2.5 - 5.0 mg/dL 03/05/2025 6:02 AM EDT [facility]) Blood Venous blood specimen / Unknown Venipuncture / Unknown 03/05/2025 5:00 AM EDT 03/05/2025 5:35 AM EDT us Ruth Kramer MD LAB BLOOD ORDERABLES Final Resul t [facility]) [address] [place] [address] * Magnesium (03/05/2025 5:00 AM EDT) Magnesium 1.9 1.9 - 2.7 mg/dL 03/05/2025 6:02 AM EDT [facility]) Blood Venous blood specimen / Unknown Venipuncture / Unknown 03/05/2025 5:00 AM EDT 03/05/2025 5:35 AM EDT us Ruth Kramer MD LAB BLOOD ORDERABLES Final Resul t [facility] ([facility]) [address] [place] [address] * (ABNORMAL) Comprehensive metabolic panel (03/05/2025 5:00 AM EDT) Sodium 132(L) 136 - 145 mmol/L 03/05/2025 6:02 AM EDT [facility] ([facility]) Potassium 3.9 3.5 - 5.1 mmol/L 03/05/2025 6:02 AM EDT [facility] ([facility]) Chloride 103 98 - 107 mmol/L 03/05/2025 6:02 AM EDT [facility] ([facility]) CO2 24 21 - 31 mmol/L 03/05/2025 6:02 AM EDT [facility] ([facility]) Anion Gap 9 7 - 20 mmol/L 03/05/2025 6:02 AM EDT [facility] ([facility]) BUN 13 7 - 25 mg/dL 03/05/2025 6:02 AM EDT [facility] ([facility]) Creatinine 0.73 0.70 - 1.30 mg/dL 03/05/2025 6:02 AM EDT [facility] ([facility]) BUN/Creatinine Ratio 17.8 10/2024 6:02 AM EDT [facility] ([facility]) Glucose 85 70 - 100 mg/dL 03/05/2025 6:02 AM EDT [facility] ([facility]) Calcium 8.1(L) 8.6 - 10.3 mg/dL 03/05/2025 6:02 AM EDT [facility] ([facility]) AST 16 13 - 39 U/L 03/05/2025 6:02 AM EDT [facility] ([facility]) ALT (SGPT) 15 7 - 52 U/L 03/05/2025 6:02 AM EDT [facility] ([facility]) Alkaline Phosphatase 60 34 - 104 U/L 03/05/2025 6:02 AM EDT [facility] ([facility]) Total Protein 5.2(L) 6.0 - 8.3 g/dL 03/05/2025 6:02 AM EDT [facility] ([facility]) Albumin 3.0(L) 3.5 - 5.7 g/dL 03/05/2025 6:02 AM EDT [facility] ([facility]) Total Bilirubin 3.8(H) 0.3 - 1.0 mg/dL 03/05/2025 6:02 AM EDT [facility] ([facility]) eGFR 105.5 >60.0 mL/min/1. 73m*2 03/05/2025 6:02 AM EDT [facility] ([facility]) Comment:The [facility] [place] [facility] s estimated glomerular filtration rate (eGFR) will [...] MD LAB BLOOD ORDERABLES Final Resul t [facility] ([facility]) [address] [place] [address] * CTA Heart Coronary W IV Contrast [...] Electronically signed: Reji Dick MD. us Ruth Safi MD IMG CT PROCEDURES Final Result * Lavender Top (03/04/2025 4:48 AM EDT) Extra Tube Hold for add-ons. 03/04/2025 7:01 AM EDT [facility] ([facility]) Comment:Auto resulted. Blood Venous blood specimen / Unknown Venipuncture / Unknown 03/04/2025 4:48 AM EDT 03/04/2025 5:13 AM EDT us Ruth Kramer MD LAB BLOOD ORDERABLES Final Resul t Performing Organization Address City/[facility]/ZIP Co de Phone Number [facility] [address] [address] * Light Green Top (03/04/2025 4:48 AM EDT) Extra Tube Hold for add-ons. 03/04/2025 7:01 AM EDT [facility] ([facility]) Comment:Auto resulted. Blood Venous blood specimen / Unknown Venipuncture / Unknown 03/04/2025 4:48 AM EDT 03/04/2025 5:13 AM EDT us Ruth Kramer MD LAB BLOOD ORDERABLES Final Resul t Performing Organization Address [facility] Co de Phone Number [address] [address] * Anti-Xa (Heparin Level) (03/04/2025 4:41 AM EDT) Anti-Xa (Heparin) 0.34 0.3 - 0.7 IU/mL 03/04/2025 5:57 AM EDT [facility]) Comment:Rivaroxaban and Apix aban will interfere with the anti Xa assay used to monitor UFH and LMWH. Blood Venous blood specimen / Unknown Venipuncture / Unknown 03/04/2025 4:41 AM EDT 03/04/2025 5:11 AM EDT us Ruth Kramer MD LAB BLOOD ORDERABLES Final Resul t [facility] ([facility]) [address] [place] [address] * ECG 12 lead (03/04/2025 4:06 AM EDT) Ventricular Rate 78 BPM GE MUSE Atrial Rate 78 BPM GE MUSE MD Interval 206 ms GE MUSE QRS DURATION 182 ms GE MUSE QT Interval 432 ms GE MUSE QTC CALCULATION(BAZE TT) 492 ms GE MUSE P Edcouch 53 degrees GE MUSE R-Edcouch -31 degrees GE MUSE T Wave Edcouch 134 degrees GE MUSE 03/04/2025 12:4 3 [...] (80) on 03/04/2025 5:11:38 PM us Carol Webercathleen SCHULER ECG ORDERABLES Final Result GE MUSE * (ABNORMAL) CBC (03/04/2025 1:08 AM EDT) Auto WBC 5.41 4.00 - 10.60 10*3/uL 03/04/2025 1:29 AM EDT [facility] [[email or web address]] [facility] ([place]) RBC 2.52(L) 4.20 - 5.70 10*6/uL 03/04/2025 1:29 AM EDT [facility] ([facility]) Hemoglobin 7.7(L) 13.0 - 17.0 g/dL 03/04/2025 1:29 AM EDT [facility] ([facility]) Hematocrit 22.6(L) 39.0 - 50.0 % 03/04/2025 1:29 AM EDT [facility] ([facility]) MCV 89.7 82.0 - 98.0 fL 03/04/2025 1:29 AM EDT [facility] ([facility]) MCH 30.6 27.0 - 33.0 pg 03/04/2025 1:29 AM EDT [facility] ([facility]) MCHC 34.1 32.0 - 35.0 g/dL 03/04/2025 1:29 AM EDT [facility] ([facility]) RDW 16.3(H) 11.5 - 15.0 % 03/04/2025 1:29 AM EDT [facility] ([facility]) Platelets 359 150 - 400 10*3/uL 03/04/2025 1:29 AM EDT [facility] ([facility]) Blood Venous blood specimen / Unknown Venipuncture / Unknown 03/04/2025 1:08 AM EDT 03/04/2025 1:21 AM EDT us Ruth Kramer MD LAB BLOOD ORDERABLES Final Resul t Performing Organization Address City/[facility] Co de Phone Number [facility]) [address] [place] [address] * Phosphorus (03/04/2025 1:08 AM EDT) Phosphorus 2.7 2.5 - 5.0 mg/dL 03/04/2025 1:44 AM EDT [facility] ([facility]) Blood Venous blood specimen / Unknown Venipuncture / Unknown 03/04/2025 1:08 AM EDT 03/04/2025 1:21 AM EDT us Ruth Krmaer MD LAB BLOOD ORDERABLES Final Resul t [facility] ([facility]) [address] [place], [place] [id number] * Magnesium (03/04/2025 1:08 AM EDT) Pathologist [facility] Magnesium 2.0 1.9 - 2.7 mg/dL 03/04/2025 1:44 AM EDT [facility] ([facility]) Blood Venous blood specimen / Unknown Venipuncture / Unknown 03/04/2025 1:08 AM EDT 03/04/2025 1:21 AM EDT Ruth Kramer MD LAB BLOOD ORDERABLES Final Resul t Performing Organization Address City/[facility]/ZIP Co de Phone Number [facility] ([facility]) [address] [place] [address] * (ABNORMAL) Comprehensive metabolic panel (03/04/2025 1:08 AM EDT) Pathologist [facility] Sodium 132(L) 136 - 145 mmol/L 03/04/2025 1:44 AM EDT [facility] ([facility]) Potassium 3.8 3.5 - 5.1 mmol/L 03/04/2025 1:44 AM EDT [facility] ([facility]) Chloride 103 98 - 107 mmol/L 03/04/2025 1:44 AM EDT [facility] ([facility]) CO2 25 21 - 31 mmol/L 03/04/2025 1:44 AM EDT [facility] ([facility]) Anion Gap 8 7 - 20 mmol/L 03/04/2025 1:44 AM EDT [facility] ([facility]) BUN 15 7 - 25 mg/dL 03/04/2025 1:44 AM EDT [facility] ([facility]) Creatinine 0.66(L) 0.70 - 1.30 mg/dL 03/04/2025 1:44 AM EDT [facility] ([facility]) BUN/Creatinine Ratio 22.7 09/2024 1:44 AM EDT [facility] ([facility]) Glucose 86 70 - 100 mg/dL 03/04/2025 1:44 AM EDT [facility] ([facility]) Calcium 7.7(L) 8.6 - 10.3 mg/dL 03/04/2025 1:44 AM EDT [facility] ([facility]) AST 17 13 - 39 U/L 03/04/2025 1:44 AM EDT [facility] ([facility]) ALT (SGPT) 17 7 - 52 U/L 03/04/2025 1:44 AM EDT [facility] ([facility]) Alkaline Phosphatase 55 34 - 104 U/L 03/04/2025 1:44 AM EDT [facility] ([facility]) Total Protein 4.9(L) 6.0 - 8.3 g/dL 03/04/2025 1:44 AM EDT [facility] ([facility]) Albumin 2.8(L) 3.5 - 5.7 g/dL 03/04/2025 1:44 AM EDT [facility] ([facility]) Total Bilirubin 3.7(H) 0.3 - 1.0 mg/dL 03/04/2025 1:44 AM EDT [facility] ([facility]) eGFR 108.7 >60.0 mL/min/1. 73m*2 03/04/2025 1:44 AM T [facility] ([facility]) Comment:[facility] [place] [facility] s estimated glomerular filtration rate (eGFR) will [...] MD LAB BLOOD ORDERABLES Final Resul t [facility] ([facility]) [address] [place] [address] * Anti-Xa (Heparin Level) (03/04/2025 1:08 AM EDT) Anti-Xa (Heparin) 0.30 0.3 - 0.7 IU/mL 03/04/2025 1:42 AM EDT [facility] ([facility]) Comment:Rivaroxaban and Apix aban will interfere with the anti Xa assay used to monitor UFH and LMWH. Blood Venous blood specimen / Unknown Venipuncture / Unknown 03/04/2025 1:08 AM EDT 03/04/2025 1:16 AM EDT us Ruth Kramer MD LAB BLOOD ORDERABLES Final Resul t Performing Organization Address [facility]/ZIP Co de Phone Number [facility]) [address] [place] [phone] * (ABNORMAL) Anti-Xa (Heparin Level) (03/03/2025 7:54 PM EDT) Anti-Xa (Heparin) 0.23(L) 0.3 - 0.7 IU/mL 03/03/2025 8:20 PM EDT [facility] ([facility]) Comment:Rivaroxaban and Apix aban will interfere with the anti Xa assay used to monitor UFH and LMWH. Blood Venous blood specimen / Unknown Venipuncture / Unknown 03/03/2025 7:54 PM EDT 03/03/2025 7:57 PM EDT us Ruth Kramer MD LAB BLOOD ORDERABLES Final Resul t [facility]) [address] [place] [address] * Platelet count (03/03/2025 12:54 PM EDT) Platelets 358 150 - 400 10*3/uL 03/03/2025 1:18 PM EDT [facility] ([facility]) Blood Venous blood specimen / Unknown Venipuncture / Unknown 03/03/2025 12:54 PM EDT 03/03/2025 1:01 PM EDT Ruth Kramer MD LAB BLOOD ORDERABLES Final Resul t Performing Organization Address City/[facility] Co de Phone Number [facility]) [address] [place] [address] * (ABNORMAL) aPTT - baseline (03/03/2025 12:54 PM EDT) aPTT 41.8(H) 25.0 - 35.0 Seconds 03/03/2025 1:33 PM EDT [facility] ([facility]) Comment:Clinical significanc e of the APTT is questionable in the presence of heparin. Blood Venous blood specimen / Unknown Venipuncture / Unknown 03/03/2025 12:54 PM EDT 03/03/2025 12:58 PM EDT Ruth Kramer MD LAB BLOOD ORDERABLES Final Resul t Performing Organization Address [facility] Co de Phone Number [facility]) [address] [place] [address] * ECG 12 lead (03/03/2025 10:36 AM EDT) Ventricular Rate 79 BPM GE MUSE Atrial Rate 79 BPM GE MUSE MD Interval 182 ms GE MUSE QRS DURATION 182 ms GE MUSE QT Interval 428 ms GE MUSE QTC CALCULATION(BAZE TT) 490 ms GE MUSE P Edcouch 65 degrees GE MUSE R-Edcouch -35 degrees GE MUSE T Wave Edcouch 123 degrees GE MUSE 03/03/2025 10:0 7 [...] Hugo Moulton MD ECG ORDERABLES Final Result [facility] * TRANSESOPHAGEAL ECHO (BERNARDINO) W/ LIMITED DOPPLER AND COLOR FLOW (03/03/2025 10:09 AM EDT) Anatomical Region Laterality Modality Other 03/03/2025 9:24 AM EDT Narrative 03/03/2025 3:46 PM EDT [facility] [[email or web address]] Heart Station [address] [id number] [phone] (fax) Transesophageal Echocardiogram-[facility] [[email or web address]] Name: LINDSAY PINTO Study Date: 03/03/2025 09:24 AM B/P: 108 mmHg/71 mmHg HR: 84 bpm Date of : 1965 Location: [facility] [[email or web address]] Height: 68 in. Age: 59 year(s) Patient Room: 3174 Weight: 244 lb. Gender: Male Patient Status: InPt BSA: 2.22 m2 Indication: Atrial Fibrillation Examination: BERNARDINO/Limited Doppler/CFI, Agitated Saline Image Quality: Fair Patient Consent: Informed, written consent was obtained for the procedure Exam Details Contrast: I.V. dose of agitated saline Exam Location: A BERNARDINO was performed in the [place] without complications Anesthesia Pharyngeal anesthesia with viscous [...] to transverse sinus Procedure Staff Reading Group: [facility] Referring Physician: JALEN LINDER Vacuum Forming Machine Operator: ZUHAIR Caban, RDCS Ordering Physician: JOSE MENESES Procedure Note Hugo Moulton MD - 03/03/2025 1 [facility] [[email or web address]] Heart Station [address] [place] [address] [phone] (fax) Transesophageal Echocardiogram-[facility] [[email or web address]] Name: LINDSAY PINTO Study Date: 03/03/2025 09:24 AM B/P: 108 mmHg/71 mmHg HR: 84 bpm Date of : 1965 Location: [facility] [[email or web address]] Height: 68 in. Age: 59 year(s) Patient Room: [facility] Weight: 244 lb. Gender: Male Patient Status: InPt BSA: 2.22 m2 Indication: Atrial Fibrillation Examination: BERNARDINO/Limited Doppler/CFI, Agitated Saline Image Quality: Fair Patient Consent: Informed, written consent was obtained for the procedure Exam Details Contrast: I.V. dose of agitated saline Exam Location: A BERNARDINO was performed in the [place] without complications Anesthesia Pharyngeal anesthesia with viscous [...] to transverse sinus Procedure Staff Reading Group: [facility] Referring Physician: JALEN LINDER Vacuum Forming Machine Operator: ZUHAIR Caban, RDCS Ordering Physician: OJSE MENESES Jose Meneses MD CV ECHO PROCEDURES Final [...] form. The patient was brought to the clinical lab technologist and transesophageal echocardiogram was performed under conscious [...] His hemodynamics remained stable during the procedure. Jose Meneses MD CV ELECTROPHYSIOLOGY PROCEDURES Final Result * ECG 12 lead (03/03/2025 9:26 AM EDT) Pathologist [facility] Ventricular Rate 90 BPM GE MUSE QRS DURATION 186 ms GE MUSE QT Interval 418 ms GE MUSE QTC CALCULATION(BAZE TT) 511 ms GE MUSE R-Edcouch -22 degrees GE MUSE T Wave Edcouch 130 degrees GE MUSE 03/03/2025 9:21 AM EDT 03/03/2025 9:33 AM EDT Impressions GE MUSE - 03/03/2025 9:33 AM EDT Atrial fibrillation Left bundle branch block Abnormal ECG Confirmed by Rosalia MOULTON, HUGO Cabrera (58) on 03/03/2025 9:33:26 AM Narrative Procedure Note Hugo Moulton MD - 03/03/2025 IMPRESSION: Atrial fibrillation Left bundle branch block Abnormal ECG Confirmed by Rosalia MOULTON, HUGO Cabrera (58) on 03/03/2025 9:33:26 AM Ruth Kramer MD ECG ORDERABLES Final Result GE MUSE * (ABNORMAL) CBC (03/03/2025 3:46 AM EDT) [facility] Auto WBC 5.84 4.00 - 10.60 10*3/uL 03/03/2025 4:15 AM EDT [facility] ([facility]) RBC 2.69(L) 4.20 - 5.70 10*6/uL 03/03/2025 4:15 AM EDT [facility] ([facility]) Hemoglobin 8.2(L) 13.0 - 17.0 g/dL 03/03/2025 4:15 AM EDT [facility] ([facility]) Hematocrit 24.1(L) 39.0 - 50.0 % 03/03/2025 4:15 AM EDT [facility] ([facility]) MCV 89.6 82.0 - 98.0 fL 03/03/2025 4:15 AM EDT [facility] ([facility]) MCH 30.5 27.0 - 33.0 pg 03/03/2025 4:15 AM EDT [facility] ([facility]) MCHC 34.0 32.0 - 35.0 g/dL 03/03/2025 4:15 AM EDT [facility] ([facility]) RDW 16.4(H) 11.5 - 15.0 % 03/03/2025 4:15 AM EDT [facility] ([facility]) Platelets 370 150 - 400 10*3/uL 03/03/2025 4:15 AM EDT [facility] ([facility]) Blood Venous blood specimen / Unknown Venipuncture / Unknown 03/03/2025 3:46 AM EDT 03/03/2025 3:57 AM EDT us Ruth Kramer MD LAB BLOOD ORDERABLES Final Resul t [facility]) [address] [place], [place] [id number] * Phosphorus (03/03/2025 3:46 AM EDT) Phosphorus 2.9 2.5 - 5.0 mg/dL 03/03/2025 4:25 AM EDT [facility]) Blood Venous blood specimen / Unknown Venipuncture / Unknown 03/03/2025 3:46 AM EDT 03/03/2025 3:57 AM EDT us Ruth Kramer MD LAB BLOOD ORDERABLES Final Resul t [facility]) [address] [place] [address] * Magnesium (03/03/2025 3:46 AM EDT) Magnesium 2.0 1.9 - 2.7 mg/dL 03/03/2025 4:25 AM EDT [facility]) Blood Venous blood specimen / Unknown Venipuncture / Unknown 03/03/2025 3:46 AM EDT 03/03/2025 3:57 AM EDT us Ruth Kramer MD LAB BLOOD ORDERABLES Final Resul t [facility] ([facility]) [address] [place] [address] * (ABNORMAL) Comprehensive metabolic panel (03/03/2025 3:46 AM EDT) Sodium 132(L) 136 - 145 mmol/L 03/03/2025 4:25 AM EDT [facility] ([facility]) Potassium 4.0 3.5 - 5.1 mmol/L 03/03/2025 4:25 AM EDT [facility] ([facility]) Chloride 102 98 - 107 mmol/L 03/03/2025 4:25 AM EDT [facility] ([facility]) CO2 25 21 - 31 mmol/L 03/03/2025 4:25 AM EDT [facility] ([facility]) Anion Gap 9 7 - 20 mmol/L 03/03/2025 4:25 AM EDT [facility] ([facility]) BUN 12 7 - 25 mg/dL 03/03/2025 4:25 AM EDT [facility] ([facility]) Creatinine 0.69(L) 0.70 - 1.30 mg/dL 03/03/2025 4:25 AM EDT [facility] ([facility]) BUN/Creatinine Ratio 17.4 08/2024 4:25 AM EDT [facility] ([facility]) Glucose 88 70 - 100 mg/dL 03/03/2025 4:25 AM EDT [facility] ([facility]) Calcium 7.8(L) 8.6 - 10.3 mg/dL 03/03/2025 4:25 AM EDT [facility] ([facility]) AST 23 13 - 39 U/L 03/03/2025 4:25 AM EDT [facility] ([facility]) ALT (SGPT) 18 7 - 52 U/L 03/03/2025 4:25 AM EDT [facility] ([facility]) Alkaline Phosphatase 55 34 - 104 U/L 03/03/2025 4:25 AM EDT [facility] ([facility]) Total Protein 5.1(L) 6.0 - 8.3 g/dL 03/03/2025 4:25 AM EDT [facility] ([facility]) Albumin 2.9(L) 3.5 - 5.7 g/dL 03/03/2025 4:25 AM EDT [facility] ([facility]) Total Bilirubin 4.0(H) 0.3 - 1.0 mg/dL 03/03/2025 4:25 AM EDT [facility] ([facility]) eGFR 107.3 >60.0 mL/min/1. 73m*2 03/03/2025 4:25 AM EDT [facility] ([facility]) Comment:[facility] s estimated glomerular filtration rate (eGFR) will [...] MD LAB BLOOD ORDERABLES Final Resul t [facility]) [address] [place], [place] [id number] * Anti-Xa (Heparin Level) (03/03/2025 3:46 AM EDT) Anti-Xa (Heparin) 0.31 0.3 - 0.7 IU/mL 03/03/2025 4:18 AM EDT [facility] ([facility]) Comment:Rivaroxaban and Apix aban will interfere with the anti Xa assay used to monitor UFH and LMWH. Blood Venous blood specimen / Unknown Venipuncture / Unknown 03/03/2025 3:46 AM EDT 03/03/2025 3:50 AM EDT us Ruth Kramer MD LAB BLOOD ORDERABLES Final Resul t [facility] ([facility]) [address] [place] [address] * (ABNORMAL) Digoxin level (03/03/2025 3:46 AM EDT) Digoxin Lvl 0.6(L) 0.7 - 2 ng/mL 03/03/2025 4:25 AM EDT [facility] ([facility]) Blood Venous blood specimen / Unknown Venipuncture / Unknown 03/03/2025 3:46 AM EDT 03/03/2025 3:57 AM EDT us Ruth Kramer MD LAB BLOOD ORDERABLES Final Resul t Performing Organization Address City/[facility] Co de Phone Number [facility] ([facility]) [address] [place] [id number] * (ABNORMAL) Anti-Xa (Heparin Level) (03/02/2025 9:21 PM EDT) Anti-Xa (Heparin) 0.18(L) 0.3 - 0.7 IU/mL 03/02/2025 10:01 PM EDT [facility] ([facility]) Comment:Rivaroxaban and Apix aban will interfere with the anti Xa assay used to monitor UFH and LMWH. Blood Venous blood specimen / Unknown Venipuncture / Unknown 03/02/2025 9:21 PM EDT 03/02/2025 9:36 PM EDT us Ruth Kramer MD LAB BLOOD ORDERABLES Final Resul t [facility] ([facility]) [address] [place] [address] * (ABNORMAL) Urinalysis (03/02/2025 2:48 PM EDT) Color, Urine Yellow Colorless, Yellow, Light-Yellow 03/02/2025 3:00 PM EDT [facility] ([facility]) Clarity, Urine Clear Clear 03/02/2025 3:00 PM EDT [facility] ([facility]) pH, Urine 6.5 5.0 - 8.0 pH 03/02/2025 3:00 PM EDT [facility] ([facility]) Leukocytes, Urine Negative Negative 03/02/2025 3:00 PM EDT [facility] ([facility]) Nitrite, Urine Negative Negative 03/02/2025 3:00 PM EDT [facility] ([facility]) Protein, Urine Negative Negative mg/dL 03/02/2025 3:00 PM EDT [facility] ([facility]) Glucose, Urine Normal Normal mg/dL 03/02/20 25 3:00 PM EDT [facility] ([facility]) Bilirubin, Urine Negative Negative 03/02/2025 3:00 PM EDT [facility] ([facility]) Specific [place], Urine 1.016 1.010 - 1.030 03/02/2025 3:00 PM EDT [facility] ([facility]) Ketones, Urine Negative Negative mg/dL 03/02/2025 3:00 PM EDT [facility] ([facility]) Blood, Urine Negative Negative 03/02/2025 3:00 PM T [facility] ([facility]) Urobilinogen, Urine >=8.0(A) Normal mg/dL 03/02/2025 3:00 PM EDT [facility] ([facility]) Urine Urine specimen obtained by clean catch procedure / Unknown Non-blood Collection / Unknown 03/02/2025 2:48 PM EDT 03/02/2025 2:52 PM EDT Narrative [facility] ([facility]) - 03/02/2025 3:00 PM EDT Microscopics not performed on urines with negative chemical reactions unless requested on original order. us Ruth Kramer MD LAB URINE ORDERABLES Final Resul t [facility] ([facility]) [address] [place] [address] * (ABNORMAL) aPTT - baseline (03/02/2025 2:09 PM EDT) aPTT 39.7(H) 25.0 - 35.0 Seconds 03/02/2025 3:51 PM EDT [facility] ([facility]) Comment:Clinical significanc e of the APTT is questionable in the presence of heparin. Blood Venous blood specimen / Unknown Venipuncture / Unknown 03/02/2025 2:09 PM EDT 03/02/2025 3:25 PM EDT us Ruth Kramer MD LAB BLOOD ORDERABLES Final Resul t [facility] ([facility]) [address] [place] [address] * LIMITED ECHO (TTE) W/ LIMITED DOPPLER, COLOR FLOW AND IMAGING AGENT (03/02/2025 12:33 PM EDT) Anatomical Region Laterality Modality Other 03/02/2025 12:0 2 PM EDT Narrative 03/02/2025 3:32 PM EDT 1 [facility] [[email or web address]] Heart Station [address] [place] [address] (fax) Echocardiogram-[facility] [[email or web address]] Name: LINDSAY PINTO Study Date: 03/02/2025 12:02 PM B/P: 111 mmHg/69 mmHg HR: 84 bpm Date of : 1965 Location: [facility] [[email or web address]] Height: 68 in. Age: 59 year(s) Patient [...] minimal pericardial effusion. Procedure Staff Reading Group: [facility] Referring Physician: JALEN LINDER Vacuum Forming Machine Operator: ZUHAIR Caban, RDCS Ordering Physician: RUTH KRAMER Procedure Note Hugo Moulton MD - 03/02/2025 1 1 [facility] [[email or web address]] Heart Station [address] [place] [address] [phone] (fax) Echocardiogram-[facility] [[email or web address]] Name: LINDSAY PINTO Study Date: 03/02/2025 12:02 PM B/P: 111 mmHg/69 mmHg HR: 84 bpm Date of : 1965 Location: [facility] [[email or web address]] Height: 68 in. Age: 59 year(s) Patient [...] minimal pericardial effusion. Procedure Staff Reading Group: [facility] Referring Physician: JALEN LINDER Vacuum Forming Machine Operator: ZUHAIR Caban, RDCS Ordering Physician: RUTH KRAMER Ruth Kramer MD CV ECHO PROCEDURES Final Result * Platelet count (03/02/2025 4:26 AM EDT) [facility] Platelets 366 150 - 400 10*3/uL 03/02/2025 1:54 PM EDT [facility] ([facility]) Blood Venous blood specimen / Unknown 03/02/2025 4:26 AM EDT 03/02/2025 5:04 AM EDT Ruth Kramer MD LAB BLOOD ORDERABLES Final Resul t [facility] ([facility]) [address] [place] [address] * Lavender Top (03/02/2025 4:26 AM EDT) Extra Tube Hold for add-ons. 03/02/2025 7:01 AM EDT [facility] ([facility]) Comment:Auto resulted. Blood Venous blood specimen / Unknown 03/02/2025 4:26 AM EDT 03/02/2025 5:04 AM EDT us Ruth Kramer MD LAB BLOOD ORDERABLES Final Resul t [facility]) [address] [place] [address] * Phosphorus (03/02/2025 4:26 AM EDT) Phosphorus 2.5 2.5 - 5.0 mg/dL 03/02/2025 5:34 AM EDT [facility] ([facility]) Blood Venous blood specimen / Unknown Venipuncture / Unknown 03/02/2025 4:26 AM EDT 03/02/2025 5:04 AM EDT us Ruth Kramer MD LAB BLOOD ORDERABLES Final Resul t Performing Organization Address [facility] Co de Phone Number [facility]) [address] [place] [id number] * Magnesium (03/02/2025 4:26 AM EDT) Magnesium 2.0 1.9 - 2.7 mg/dL 03/02/2025 5:34 AM EDT [facility] ([facility]) Blood Venous blood specimen / Unknown Venipuncture / Unknown 03/02/2025 4:26 AM EDT 03/02/2025 5:04 AM EDT us Ruth Kramer MD LAB BLOOD ORDERABLES Final Resul t Performing Organization Address City/[facility]/ZIP Co de Phone Number [facility]) [address] [place], [place] [id number] * (ABNORMAL) Comprehensive metabolic panel (03/02/2025 4:26 AM EDT) Sodium 131(L) 136 - 145 mmol/L 03/02/2025 5:34 AM [facility] ([facility]) Potassium 4.0 3.5 - 5.1 mmol/L 03/02/2025 5:34 AM [facility] ([facility]) Chloride 103 98 - 107 mmol/L 03/02/2025 5:34 AM [facility] ([facility]) CO2 25 21 - 31 mmol/L 03/02/2025 5:34 AM [facility] ([facility]) Anion Gap 7 7 - 20 mmol/L 03/02/2025 5:34 AM [facility] ([facility]) BUN 13 7 - 25 mg/dL 03/02/2025 5:34 AM [facility] ([facility]) Creatinine 0.68(L) 0.70 - 1.30 mg/dL 03/02/2025 5:34 AM [facility] ([facility]) BUN/Creatinine Ratio 19.1 08/2024 5:34 AM [facility] ([facility]) Glucose 91 70 - 100 mg/dL 03/02/2025 5:34 AM [facility] ([facility]) Calcium 8.1(L) 8.6 - 10.3 mg/dL 03/02/2025 5:34 AM [facility] ([facility]) AST 21 13 - 39 U/L 03/02/2025 5:34 AM [facility] ([facility]) ALT (SGPT) 20 7 - 52 U/L 03/02/2025 5:34 AM [facility] ([facility]) Alkaline Phosphatase 59 34 - 104 U/L 03/02/2025 5:34 AM [facility] ([facility]) Total Protein 5.3(L) 6.0 - 8.3 g/dL 03/02/2025 5:34 AM [facility] ([facility]) Albumin 3.0(L) 3.5 - 5.7 g/dL 03/02/2025 5:34 AM [facility] ([facility]) Total Bilirubin 4.3(H) 0.3 - 1.0 mg/dL 03/02/2025 5:34 AM EDT [facility] ([facility]) eGFR 107.7 >60.0 mL/min/1. 73m*2 03/02/2025 5:34 AM EDT [facility] ([facility]) Comment:[facility] s estimated glomerular filtration rate (eGFR) will [...] MD LAB BLOOD ORDERABLES Final Resul t [facility]) [address] [place] [address] * (ABNORMAL) Digoxin level (03/01/2025 5:12 AM EDT) Digoxin Lvl <0.3(L) 0.7 - 2 ng/mL 03/01/2025 12:41 PM EDT [facility] ([facility]) Blood Venous blood specimen / Unknown Venipuncture / Unknown 03/01/2025 5:12 AM EDT 03/01/2025 5:27 AM EDT us Ruth Kramer MD LAB BLOOD ORDERABLES Final Resul t [facility]) [address] [place] [address] * Lavender Top (03/01/2025 5:12 AM EDT) Extra Tube Hold for add-ons. 03/01/2025 7:01 AM EDT [facility] ([facility]) Comment:Auto resulted. Blood Venous blood specimen / Unknown 03/01/2025 5:12 AM EDT 03/01/2025 5:17 AM EDT us Ruth Kramer MD LAB BLOOD ORDERABLES Final Resul t [facility]) [address] [place], [place] [id number] * (ABNORMAL) Phosphorus (03/01/2025 5:12 AM EDT) Phosphorus 2.4(L) 2.5 - 5.0 mg/dL 03/01/2025 6:03 AM EDT [facility]) Blood Venous blood specimen / Unknown Venipuncture / Unknown 03/01/2025 5:12 AM EDT 03/01/2025 5:27 AM EDT us Ruth Kramer MD LAB BLOOD ORDERABLES Final Resul t Performing Organization Address [facility] Co de Phone Number [facility]) [address] [place] [address] * Magnesium (03/01/2025 5:12 AM EDT) Magnesium 2.0 1.9 - 2.7 mg/dL 03/01/2025 6:03 AM EDT [facility]) Blood Venous blood specimen / Unknown Venipuncture / Unknown 03/01/2025 5:12 AM EDT 03/01/2025 5:27 AM EDT us Ruth Kramer MD LAB BLOOD ORDERABLES Final Resul t Performing Organization Address City/[facility]/ZIP Co de Phone Number [facility]) [address] [place] [address] * (ABNORMAL) Comprehensive metabolic panel (03/01/2025 5:12 AM EDT) Sodium 130(L) 136 - 145 mmol/L 03/01/2025 6:03 AM [facility] ([facility]) Potassium 3.9 3.5 - 5.1 mmol/L 03/01/2025 6:03 AM [facility] ([facility]) Chloride 103 98 - 107 mmol/L 03/01/2025 6:03 AM [facility] ([facility]) CO2 22 21 - 31 mmol/L 03/01/2025 6:03 AM [facility] ([facility]) Anion Gap 9 7 - 20 mmol/L 03/01/2025 6:03 AM [facility] ([facility]) BUN 14 7 - 25 mg/dL 03/01/2025 6:03 AM [facility] ([facility]) Creatinine 0.67(L) 0.70 - 1.30 mg/dL 03/01/2025 6:03 AM [facility] ([facility]) BUN/Creatinine Ratio 20.9 07/2024 6:03 AM [facility] ([facility]) Glucose 94 70 - 100 mg/dL 03/01/2025 6:03 AM [facility] ([facility]) Calcium 7.7(L) 8.6 - 10.3 mg/dL 03/01/2025 6:03 AM [facility] ([facility]) AST 17 13 - 39 U/L 03/01/2025 6:03 AM [facility] ([facility]) ALT (SGPT) 17 7 - 52 U/L 03/01/2025 6:03 AM [facility] ([facility]) Alkaline Phosphatase 58 34 - 104 U/L 03/01/2025 6:03 AM [facility] ([facility]) Total Protein 5.1(L) 6.0 - 8.3 g/dL 03/01/2025 6:03 AM [facility] ([facility]) Albumin 2.9(L) 3.5 - 5.7 g/dL 03/01/2025 6:03 AM [facility] ([facility]) Total Bilirubin 3.6(H) 0.3 - 1.0 mg/dL 03/01/2025 6:03 AM EDT [facility] ([facility]) eGFR 108.2 >60.0 mL/min/1. 73m*2 03/01/2025 6:03 AM EDT [facility] ([facility]) Comment:[facility] s estimated glomerular filtration rate (eGFR) will [...] MD LAB BLOOD ORDERABLES Final Resul t [facility]) [address] [place] [address] * (ABNORMAL) Phosphorus (02/28/2025 3:42 AM EDT) Phosphorus 2.0(L) 2.5 - 5.0 mg/dL 02/28/2025 4:44 AM EDT [facility] ([facility]) Blood Venous blood specimen / Unknown Venipuncture / Unknown 02/28/2025 3:42 AM EDT 02/28/2025 4:19 AM EDT Ruth Kramer MD LAB BLOOD ORDERABLES Final Resul t [facility]) [address] [place] [address] * Magnesium (02/28/2025 3:42 AM EDT) Magnesium 2.0 1.9 - 2.7 mg/dL 02/28/2025 4:44 AM EDT [facility] ([facility]) Blood Venous blood specimen / Unknown Venipuncture / Unknown 02/28/2025 3:42 AM EDT 02/28/2025 4:19 AM EDT us Ruth Kramer MD LAB BLOOD ORDERABLES Final Resul t [facility] ([facility]) [address] [place] [address] * (ABNORMAL) Comprehensive metabolic panel (02/28/2025 3:42 AM EDT) Sodium 131(L) 136 - 145 mmol/L 02/28/2025 4:44 AM EDT [facility] ([facility]) Potassium 4.0 3.5 - 5.1 mmol/L 02/28/2025 4:44 AM EDT [facility] [facility] ([facility]) Chloride 102 98 - 107 mmol/L 02/28/2025 4:44 AM EDT [facility] ([facility]) CO2 23 21 - 31 mmol/L 02/28/2025 4:44 AM EDT [facility] ([facility]) Anion Gap 10 7 - 20 mmol/L 02/28/2025 4:44 AM EDT [facility] ([facility]) BUN 16 7 - 25 mg/dL 02/28/2025 4:44 AM EDT [facility] ([facility]) Creatinine 0.75 0.70 - 1.30 mg/dL 02/28/2025 4:44 AM EDT [facility] ([facility]) BUN/Creatinine Ratio 21.3 01/31 4:44 AM EDT [facility] ([facility]) Glucose 98 70 - 100 mg/dL 02/28/2025 4:44 AM EDT [facility] ([facility]) Calcium 7.9(L) 8.6 - 10.3 mg/dL 02/28/2025 4:44 AM EDT [facility] ([facility]) AST 14 13 - 39 U/L 02/28/2025 4:44 AM EDT [facility] ([facility]) ALT (SGPT) 20 7 - 52 U/L 02/28/2025 4:44 AM EDT [facility] ([facility]) Alkaline Phosphatase 60 34 - 104 U/L 02/28/2025 4:44 AM EDT [facility] ([facility]) Total Protein 5.1(L) 6.0 - 8.3 g/dL 02/28/2025 4:44 AM EDT [facility] ([facility]) Albumin 3.0(L) 3.5 - 5.7 g/dL 02/28/2025 4:44 AM EDT [facility] ([facility]) Total Bilirubin 3.8(H) 0.3 - 1.0 mg/dL 02/28/2025 4:44 AM EDT [facility] ([facility]) eGFR 104.6 >60.0 mL/min/1. 73m*2 02/28/2025 4:44 AM EDT [facility] ([facility]) Comment:[facility] s estimated glomerular filtration rate (eGFR) will [...] MD LAB BLOOD ORDERABLES Final Resul t [facility] ([facility]) [address] [place], [place] [id number] * (ABNORMAL) CBC (02/28/2025 3:42 AM EDT) Auto WBC 8.84 4.00 - 10.60 10*3/uL 02/28/2025 4:42 AM EDT [facility] ([facility]) RBC 2.70(L) 4.20 - 5.70 10*6/uL 02/28/2025 4:42 AM EDT [facility] ([facility]) Hemoglobin 8.3(L) 13.0 - 17.0 g/dL 02/28/2025 4:42 AM EDT [facility] ([facility]) Hematocrit 24.3(L) 39.0 - 50.0 % 02/28/2025 4:42 AM EDT [facility] ([facility]) MCV 90.0 82.0 - 98.0 fL 02/28/2025 4:42 AM EDT [facility] ([facility]) MCH 30.7 27.0 - 33.0 pg 02/28/2025 4:42 AM EDT [facility] ([facility]) MCHC 34.2 32.0 - 35.0 g/dL 02/28/2025 4:42 AM EDT [facility] ([facility]) RDW 17.2(H) 11.5 - 15.0 % 02/28/2025 4:42 AM EDT [facility] ([facility]) Platelets 255 150 - 400 10*3/uL 02/28/2025 4:42 AM EDT [facility] ([facility]) Blood Venous blood specimen / Unknown Venipuncture / Unknown 02/28/2025 3:42 AM EDT 02/28/2025 4:20 AM EDT us Ruth Kramer MD LAB BLOOD ORDERABLES Final Resul t [facility] ([facility]) [address] [place] [address] * (ABNORMAL) CBC (02/27/2025 11:38 PM EDT) Auto WBC 9.07 4.00 - 10.60 10*3/uL 02/28/2025 12:46 AM EDT [facility] ([facility]) RBC 2.84(L) 4.20 - 5.70 10*6/uL 02/28/2025 12:46 AM EDT [facility] ([facility]) Hemoglobin 8.9(L) 13.0 - 17.0 g/dL 02/28/2025 12:46 AM EDT [facility] ([facility]) Hematocrit 25.1(L) 39.0 - 50.0 % 02/28/2025 12:46 AM EDT [facility] ([facility]) MCV 88.4 82.0 - 98.0 fL 02/28/2025 12:46 AM EDT [facility] ([facility]) MCH 31.3 27.0 - 33.0 pg 02/28/2025 12:46 AM EDT [facility] ([facility]) MCHC 35.5(H) 32.0 - 35.0 g/dL 02/28/2025 12:46 AM EDT [facility] ([facility]) RDW 17.2(H) 11.5 - 15.0 % 02/28/2025 12:46 AM EDT [facility] ([facility]) Platelets 261 150 - 400 10*3/uL 02/28/2025 12:46 AM EDT [facility] ([facility]) Blood Venous blood specimen / Unknown Venipuncture / Unknown 02/27/2025 11:38 PM EDT 02/28/2025 12:35 AM EDT us Ruth Kramer MD LAB BLOOD ORDERABLES Final Resul t [facility] ([facility]) [address] [place], [place] [id number] * (ABNORMAL) CBC (02/27/2025 6:49 PM EDT) Auto WBC 10.96(H) 4.00 - 10.60 10*3/uL 02/27/2025 7:24 PM EDT [facility] ([facility]) RBC 3.12(L) 4.20 - 5.70 10*6/uL 02/27/2025 7:24 PM EDT [facility] ([facility]) Hemoglobin 9.6(L) 13.0 - 17.0 g/dL 02/27/2025 7:24 PM EDT [facility] ([facility]) Hematocrit 27.4(L) 39.0 - 50.0 % 02/27/2025 7:24 PM EDT [facility] ([facility]) MCV 87.8 82.0 - 98.0 fL 02/27/2025 7:24 PM EDT [facility] ([facility]) MCH 30.8 27.0 - 33.0 pg 02/27/2025 7:24 PM EDT [facility] ([facility]) MCHC 35.0 32.0 - 35.0 g/dL 02/27/2025 7:24 PM EDT [facility] ([facility]) RDW 17.2(H) 11.5 - 15.0 % 02/27/2025 7:24 PM EDT [facility] ([facility]) Platelets 284 150 - 400 10*3/uL 02/27/2025 7:24 PM EDT [facility] ([facility]) Blood Venous blood specimen / Unknown Venipuncture / Unknown 02/27/2025 6:49 PM EDT 02/27/2025 7:18 PM EDT us Ruth Kramer MD LAB BLOOD ORDERABLES Final Resul t [facility]) [address] [place] [address] * (ABNORMAL) CBC (02/27/2025 12:13 PM EDT) Auto WBC 8.02 4.00 - 10.60 10*3/uL 02/27/2025 12:33 PM EDT [facility] ([facility]) RBC 2.75(L) 4.20 - 5.70 10*6/uL 02/27/2025 12:33 PM EDT [facility] ([facility]) Hemoglobin 8.5(L) 13.0 - 17.0 g/dL 02/27/2025 12:33 PM EDT [facility] ([facility]) Hematocrit 24.7(L) 39.0 - 50.0 % 02/27/2025 12:33 PM EDT [facility] ([facility]) MCV 89.8 82.0 - 98.0 fL 02/27/2025 12:33 PM EDT [facility] ([facility]) MCH 30.9 27.0 - 33.0 pg 02/27/2025 12:33 PM EDT [facility] ([facility]) MCHC 34.4 32.0 - 35.0 g/dL 02/27/2025 12:33 PM EDT [facility] ([facility]) RDW 17.3(H) 11.5 - 15.0 % 02/27/2025 12:33 PM EDT [facility] ([facility]) Platelets 233 150 - 400 10*3/uL 02/27/2025 12:33 PM EDT [facility] ([facility]) Blood Arterial blood specimen / Unknown Existing Catheter / Unknown 02/27/2025 12:13 PM EDT 02/27/2025 12:20 PM EDT us Ruth Kramer MD LAB BLOOD ORDERABLES Final Resul t Performing Organization Address City/[facility]/ZIP Co de Phone Number [facility]) [address] [place] [address] * (ABNORMAL) Phosphorus (02/27/2025 5:58 AM EDT) Phosphorus 2.0(L) 2.5 - 5.0 mg/dL 02/27/2025 6:43 AM EDT [facility]) Blood Venous blood specimen / Unknown Existing Catheter / Unknown 02/27/2025 5:58 AM EDT 02/27/2025 6:15 AM EDT us Ruth Kramer MD LAB BLOOD ORDERABLES Final Resul t [facility]) [address] [place] [address] * Magnesium (02/27/2025 5:58 AM EDT) Magnesium 2.1 1.9 - 2.7 mg/dL 02/27/2025 6:43 AM EDT [facility] ([facility]) Blood Venous blood specimen / Unknown Existing Catheter / Unknown 02/27/2025 5:58 AM EDT 02/27/2025 6:15 AM EDT us Ruth Kramer MD LAB BLOOD ORDERABLES Final Resul t [facility] ([facility]) [address] [place] [address] * (ABNORMAL) Comprehensive metabolic panel (02/27/2025 5:58 AM EDT) Sodium 131(L) 136 - 145 mmol/L 02/27/2025 6:43 AM EDT [facility] ([facility]) Potassium 4.1 3.5 - 5.1 mmol/L 02/27/2025 6:43 AM EDT [facility] ([facility]) Chloride 102 98 - 107 mmol/L 02/27/2025 6:43 AM EDT [facility] ([facility]) CO2 25 21 - 31 mmol/L 02/27/2025 6:43 AM EDT [facility] ([facility]) Anion Gap 8 7 - 20 mmol/L 02/27/2025 6:43 AM EDT [facility] ([facility]) BUN 17 7 - 25 mg/dL 02/27/2025 6:43 AM EDT [facility] ([facility]) Creatinine 0.64(L) 0.70 - 1.30 mg/dL 02/27/2025 6:43 AM EDT [facility] ([facility]) BUN/Creatinine Ratio 26.6 / 6:43 AM EDT [facility] ([facility]) Glucose 100 70 - 100 mg/dL 02/27/2025 6:43 AM EDT [facility] ([facility]) Calcium 7.8(L) 8.6 - 10.3 mg/dL 02/27/2025 6:43 AM EDT [facility] ([facility]) AST 16 13 - 39 U/L 02/27/2025 6:43 AM EDT [facility] ([facility]) ALT (SGPT) 21 7 - 52 U/L 02/27/2025 6:43 AM EDT [facility] ([facility]) Alkaline Phosphatase 54 34 - 104 U/L 02/27/2025 6:43 AM EDT [facility] ([facility]) Total Protein 4.9(L) 6.0 - 8.3 g/dL 02/27/2025 6:43 AM EDT [facility] ([facility]) Albumin 2.9(L) 3.5 - 5.7 g/dL 02/27/2025 6:43 AM EDT [facility] ([facility]) Total Bilirubin 3.4(H) 0.3 - 1.0 mg/dL 02/27/2025 6:43 AM EDT [facility] ([facility]) eGFR 109.7 >60.0 mL/min/1. 73m*2 02/27/2025 6:43 AM EDT [facility] ([facility]) Comment:[facility] s estimated glomerular filtration rate (eGFR) will [...] MD LAB BLOOD ORDERABLES Final Resul t [facility] ([facility]) [address] [place] [address] * (ABNORMAL) CBC (02/27/2025 5:58 AM EDT) Auto WBC 8.06 4.00 - 10.60 10*3/uL 02/27/2025 6:29 AM EDT [facility] ([facility]) RBC 2.67(L) 4.20 - 5.70 10*6/uL 02/27/2025 6:29 AM EDT [facility] ([facility]) Hemoglobin 8.2(L) 13.0 - 17.0 g/dL 02/27/2025 6:29 AM EDT [facility] ([facility]) Hematocrit 23.8(L) 39.0 - 50.0 % 02/27/2025 6:29 AM EDT [facility] ([facility]) MCV 89.1 82.0 - 98.0 fL 02/27/2025 6:29 AM EDT [facility] ([facility]) MCH 30.7 27.0 - 33.0 pg 02/27/2025 6:29 AM EDT [facility] ([facility]) MCHC 34.5 32.0 - 35.0 g/dL 02/27/2025 6:29 AM EDT [facility] ([facility]) RDW 17.5(H) 11.5 - 15.0 % 02/27/2025 6:29 AM EDT [facility] ([facility]) Platelets 159 150 - 400 10*3/uL 02/27/2025 6:29 AM EDT [facility] ([facility]) Blood Venous blood specimen / Unknown Existing Catheter / Unknown 02/27/2025 5:58 AM EDT 02/27/2025 6:15 AM EDT us Ruth Kramer MD LAB BLOOD ORDERABLES Final Resul t [facility] ([facility]) [address] [place] [address] * (ABNORMAL) CBC (02/26/2025 11:21 PM EDT) Auto WBC 8.18 4.00 - 10.60 10*3/uL 02/26/2025 11:48 PM EDT [facility] ([facility]) RBC 2.73(L) 4.20 - 5.70 10*6/uL 02/26/2025 11:48 PM EDT [facility] ([facility]) Hemoglobin 8.5(L) 13.0 - 17.0 g/dL 02/26/2025 11:48 PM EDT [facility] ([facility]) Hematocrit 24.6(L) 39.0 - 50.0 % 02/26/2025 11:48 PM EDT [facility] ([facility]) MCV 90.1 82.0 - 98.0 fL 02/26/2025 11:48 PM EDT [facility] ([facility]) MCH 31.1 27.0 - 33.0 pg 02/26/2025 11:48 PM EDT [facility] ([facility]) MCHC 34.6 32.0 - 35.0 g/dL 02/26/2025 11:48 PM EDT [facility] ([facility]) RDW 17.5(H) 11.5 - 15.0 % 02/26/2025 11:48 PM EDT [facility] ([facility]) Platelets 225 150 - 400 10*3/uL 02/26/2025 11:48 PM EDT [facility] ([facility]) Blood Venous blood specimen / Unknown Existing Catheter / Unknown 02/26/2025 11:21 PM EDT 02/26/2025 11:29 PM EDT us Ruth Kramer MD LAB BLOOD ORDERABLES Final Resul t [facility]) [address] [place] [address] * (ABNORMAL) CBC (02/26/2025 6:18 PM EDT) Auto WBC 8.65 4.00 - 10.60 10*3/uL 02/26/2025 6:58 PM EDT [facility] ([facility]) RBC 2.81(L) 4.20 - 5.70 10*6/uL 02/26/2025 6:58 PM EDT [facility] ([facility]) Hemoglobin 8.5(L) 13.0 - 17.0 g/dL 02/26/2025 6:58 PM EDT [facility] ([facility]) Hematocrit 25.0(L) 39.0 - 50.0 % 02/26/2025 6:58 PM EDT [facility] ([facility]) MCV 89.0 82.0 - 98.0 fL 02/26/2025 6:58 PM EDT [facility] ([facility]) MCH 30.2 27.0 - 33.0 pg 02/26/2025 6:58 PM EDT [facility]) MCHC 34.0 32.0 - 35.0 g/dL 02/26/2025 6:58 PM EDT [facility] ([facility]) RDW 17.6(H) 11.5 - 15.0 % 02/26/2025 6:58 PM EDT [facility]) Platelets 219 150 - 400 10*3/uL 02/26/2025 6:58 PM EDT [facility]) Blood Arterial blood specimen / Unknown Existing Catheter / Unknown 02/26/2025 6:18 PM EDT 02/26/2025 6:23 PM EDT us Ruth Kramer MD LAB BLOOD ORDERABLES Final Resul t [facility]) [address] [place] [address] * (ABNORMAL) Reticulocyte panel (02/26/2025 11:48 AM EDT) Retic Ct Abs 0.0781 0.0250 - 0.1000 10*6/uL 02/26/2025 2:07 PM EDT [facility] ([facility]) Retic Ct Pct 2.79(H) 0.50 - 1.80 % 02/26/2025 2:07 PM EDT [facility]) Immature Reticulocyte Fraction % 36.5(H) 2 - 16 % 02/26/2025 2:07 PM EDT [facility]) Reticulocyte Hemoglobin 33.0 28.0 - 36.0 pg 02/26/2025 2:07 PM EDT [facility]) Blood Venous blood specimen / Unknown Existing Catheter / Unknown 02/26/2025 11:48 AM EDT 02/26/2025 12:00 PM EDT us Ruth Kramer MD LAB BLOOD ORDERABLES Final Resul t [facility] ([facility]) [address] [place] [address] * (ABNORMAL) CBC (02/26/2025 11:48 AM EDT) Auto WBC 7.78 4.00 - 10.60 10*3/uL 02/26/2025 12:18 PM EDT [facility] ([facility]) RBC 2.74(L) 4.20 - 5.70 10*6/uL 02/26/2025 12:18 PM EDT [facility] ([facility]) Hemoglobin 8.6(L) 13.0 - 17.0 g/dL 02/26/2025 12:18 PM EDT [facility] ([facility]) Hematocrit 24.6(L) 39.0 - 50.0 % 02/26/2025 12:18 PM EDT [facility] ([facility]) MCV 89.8 82.0 - 98.0 fL 02/26/2025 12:18 PM EDT [facility]) MCH 31.4 27.0 - 33.0 pg 02/26/2025 12:18 PM EDT [facility]) MCHC 35.0 32.0 - 35.0 g/dL 02/26/2025 12:18 PM EDT [facility] ([facility]) RDW 17.8(H) 11.5 - 15.0 % 02/26/2025 12:18 PM EDT [facility] ([facility]) Platelets 205 150 - 400 10*3/uL 02/26/2025 12:18 PM EDT [facility]) Blood Venous blood specimen / Unknown Existing Catheter / Unknown 02/26/2025 11:48 AM EDT 02/26/2025 12:00 PM EDT us Ruth Kramer MD LAB BLOOD ORDERABLES Final Resul t Performing Organization Address City/[facility]/ZIP Co de Phone Number [facility]) [address] [place] [phone] * Folate (02/26/2025 5:13 AM EDT) Folate 17.66 6.6 - 1,000 ng/mL 02/26/2025 1:05 PM EDT [facility] ([facility]) Blood Arterial blood specimen / Unknown Existing Catheter / Unknown 02/26/2025 5:13 AM EDT 02/26/2025 5:36 AM EDT Ruth Kramer MD LAB BLOOD ORDERABLES Final Resul t Performing Organization Address [facility] Co de Phone Number [facility]) [address] [place] [phone] * (ABNORMAL) Vitamin B12 (02/26/2025 5:13 AM EDT) Vitamin B-12 1,129(H) 180 - 914 pg/mL 02/26/2025 1:05 PM EDT [facility]) Comment: REFERENCE RANGES: 180-914 pg/mL Normal 145-179 pg/mL Indeterminate <145 pg/mL Deficient Blood Arterial blood specimen / Unknown Existing Catheter / Unknown 02/26/2025 5:13 AM EDT 02/26/2025 5:36 AM EDT us Ruth Kramer MD LAB BLOOD ORDERABLES Final Resul t Performing Organization Address City/[facility]/ZIP Co de Phone Number [facility]) [address] [place] [phone] * Ferritin (02/26/2025 5:13 AM EDT) Ferritin 234.0 24.0 - 336.0 ng/mL 02/26/2025 1:05 PM EDT [facility]) Blood Arterial blood specimen / Unknown Existing Catheter / Unknown 02/26/2025 5:13 AM EDT 02/26/2025 5:36 AM EDT us Ruth Kramer MD LAB BLOOD ORDERABLES Final Resul t [facility] ([facility]) [address] [place] [address] * (ABNORMAL) Iron and TIBC (02/26/2025 5:13 AM EDT) Iron 20(L) 50 - 212 ug/dL 02/26/2025 12:38 PM EDT [facility] ([facility]) TIBC 227(L) 250 - 450 ug/dL 02/26/2025 12:38 PM EDT [facility] ([facility]) Iron Saturation 9(L) 20 - 50 % 12:38 PM EDT [facility] ([facility]) UIBC 207.0 155.0 - 355.0 ug/dL 02/26/2025 12:38 PM EDT [facility] ([facility]) Blood Arterial blood specimen / Unknown Existing Catheter / Unknown 02/26/2025 5:13 AM EDT 02/26/2025 5:36 AM EDT us Ruth Kramer MD LAB BLOOD ORDERABLES Final Resul t Performing Organization Address City/[facility]/ZIP Co de Phone Number [facility] ([facility]) [address] [place] [phone] * (ABNORMAL) Phosphorus (02/26/2025 5:13 AM EDT) Phosphorus 1.8(L) 2.5 - 5.0 mg/dL 02/26/2025 6:05 AM EDT [facility] ([facility]) Blood Arterial blood specimen / Unknown Existing Catheter / Unknown 02/26/2025 5:13 AM EDT 02/26/2025 5:36 AM EDT us Ruth Kramer MD LAB BLOOD ORDERABLES Final Resul t Performing Organization Address City/[facility]/ZIP Co de Phone Number [facility]) [address] [place], [place] [id number] * Magnesium (02/26/2025 5:13 AM EDT) Magnesium 2.2 1.9 - 2.7 mg/dL 02/26/2025 6:05 AM EDT [facility] ([facility]) Blood Arterial blood specimen / Unknown Existing Catheter / Unknown 02/26/2025 5:13 AM EDT 02/26/2025 5:36 AM EDT Ruth Kramer MD LAB BLOOD ORDERABLES Final Resul t Performing Organization Address [facility]/ZIP Co de Phone Number [facility]) [address] [place] [address] * (ABNORMAL) Comprehensive metabolic panel (02/26/2025 5:13 AM EDT) Sodium 133(L) 136 - 145 mmol/L 02/26/2025 6:05 AM EDT [facility] ([facility]) Potassium 3.9 3.5 - 5.1 mmol/L 02/26/2025 6:05 AM EDT [facility] ([facility]) Chloride 103 98 - 107 mmol/L 02/26/2025 6:05 AM EDT [facility] ([facility]) CO2 27 21 - 31 mmol/L 02/26/2025 6:05 AM EDT [facility] ([facility]) Anion Gap 7 7 - 20 mmol/L 02/26/2025 6:05 AM EDT [facility] ([facility]) BUN 25 7 - 25 mg/dL 02/26/2025 6:05 AM EDT [facility] ([facility]) Creatinine 0.80 0.70 - 1.30 mg/dL 02/26/2025 6:05 AM EDT [facility] ([facility]) BUN/Creatinine Ratio 31.3 01/30 6:05 AM EDT [facility] ([facility]) Glucose 94 70 - 100 mg/dL 02/26/2025 6:05 AM EDT [facility] ([facility]) Calcium 7.9(L) 8.6 - 10.3 mg/dL 02/26/2025 6:05 AM EDT [facility] ([facility]) AST 16 13 - 39 U/L 02/26/2025 6:05 AM T [facility] ([facility]) ALT (SGPT) 24 7 - 52 U/L 02/26/2025 6:05 AM EDT [facility] ([facility]) Alkaline Phosphatase 54 34 - 104 U/L 02/26/2025 6:05 AM EDT [facility] ([facility]) Total Protein 4.8(L) 6.0 - 8.3 g/dL 02/26/2025 6:05 AM EDT [facility] ([facility]) Albumin 2.9(L) 3.5 - 5.7 g/dL 02/26/2025 6:05 AM T [facility] ([facility]) Total Bilirubin 3.5(H) 0.3 - 1.0 mg/dL 02/26/2025 6:05 AM T [facility] ([facility]) eGFR 102.6 >60.0 mL/min/1. 73m*2 02/26/2025 6:05 AM T [facility] ([facility]) Comment:[facility] s estimated glomerular filtration rate (eGFR) will [...] MD LAB BLOOD ORDERABLES Final Resul t [facility] ([facility]) [address] [place], [place] [id number] * (ABNORMAL) CBC (02/26/2025 5:13 AM EDT) Auto WBC 7.09 4.00 - 10.60 10*3/uL 02/26/2025 5:46 AM EDT [facility] [facility]) RBC 2.58(L) 4.20 - 5.70 10*6/uL 02/26/2025 5:46 AM EDT [facility] ([facility]) Hemoglobin 7.9(L) 13.0 - 17.0 g/dL 02/26/2025 5:46 AM EDT [facility] ([facility]) Hematocrit 23.2(L) 39.0 - 50.0 % 02/26/2025 5:46 AM EDT [facility] ([facility]) MCV 89.9 82.0 - 98.0 fL 02/26/2025 5:46 AM EDT [facility] ([facility]) MCH 30.6 27.0 - 33.0 pg 02/26/2025 5:46 AM EDT [facility] ([facility]) MCHC 34.1 32.0 - 35.0 g/dL 02/26/2025 5:46 AM EDT [facility] ([facility]) RDW 17.8(H) 11.5 - 15.0 % 02/26/2025 5:46 AM EDT [facility] ([facility]) Platelets 199 150 - 400 10*3/uL 02/26/2025 5:46 AM EDT [facility] ([facility]) Blood Arterial blood specimen / Unknown Existing Catheter / Unknown 02/26/2025 5:13 AM EDT 02/26/2025 5:36 AM EDT us Ruth Kramer MD LAB BLOOD ORDERABLES Final Resul t [facility]) [address] [place] [address] * (ABNORMAL) CBC (02/25/2025 11:56 PM EDT) Auto WBC 7.74 4.00 - 10.60 10*3/uL 02/26/2025 12:11 AM EDT [facility] ([facility]) RBC 2.60(L) 4.20 - 5.70 10*6/uL 02/26/2025 12:11 AM EDT [facility] ([facility]) Hemoglobin 8.1(L) 13.0 - 17.0 g/dL 02/26/2025 12:11 AM EDT [facility] ([facility]) Hematocrit 23.3(L) 39.0 - 50.0 % 02/26/2025 12:11 AM EDT [facility] ([facility]) MCV 89.6 82.0 - 98.0 fL 02/26/2025 12:11 AM EDT [facility] ([facility]) MCH 31.2 27.0 - 33.0 pg 02/26/2025 12:11 AM EDT [facility] ([facility]) MCHC 34.8 32.0 - 35.0 g/dL 02/26/2025 12:11 AM EDT [facility] ([facility]) RDW 17.7(H) 11.5 - 15.0 % 02/26/2025 12:11 AM EDT [facility] ([facility]) Platelets 180 150 - 400 10*3/uL 02/26/2025 12:11 AM EDT [facility] ([facility]) Blood Arterial blood specimen / Unknown Existing Catheter / Unknown 02/25/2025 11:56 PM EDT 02/26/2025 12:03 AM EDT us Ruth Kramer MD LAB BLOOD ORDERABLES Final Resul t [facility] ([facility]) [address] [place] [address] * (ABNORMAL) CBC (02/25/2025 6:08 PM EDT) Auto WBC 8.04 4.00 - 10.60 10*3/uL 02/25/2025 6:50 PM EDT [facility] ([facility]) RBC 2.90(L) 4.20 - 5.70 10*6/uL 02/25/2025 6:50 PM EDT [facility] ([facility]) Hemoglobin 9.0(L) 13.0 - 17.0 g/dL 02/25/2025 6:50 PM EDT [facility] ([facility]) Hematocrit 26.0(L) 39.0 - 50.0 % 02/25/2025 6:50 PM EDT [facility] ([facility]) MCV 89.7 82.0 - 98.0 fL 02/25/2025 6:50 PM EDT [facility] ([facility]) MCH 31.0 27.0 - 33.0 pg 02/25/2025 6:50 PM EDT [facility] ([facility]) MCHC 34.6 32.0 - 35.0 g/dL 02/25/2025 6:50 PM EDT [facility] ([facility]) RDW 17.7(H) 11.5 - 15.0 % 02/25/2025 6:50 PM EDT [facility] ([facility]) Platelets 180 150 - 400 10*3/uL 02/25/2025 6:50 PM EDT [facility] ([facility]) Blood Arterial blood specimen / Unknown Existing Catheter / Unknown 02/25/2025 6:08 PM EDT 02/25/2025 6:43 PM EDT us Ruth Kramer MD LAB BLOOD ORDERABLES Final Resul t [facility] ([facility]) [address] [place] [address] * (ABNORMAL) CBC (02/25/2025 1:29 PM EDT) Auto WBC 7.39 4.00 - 10.60 10*3/uL 02/25/2025 1:44 PM EDT [facility] ([facility]) RBC 2.71(L) 4.20 - 5.70 10*6/uL 02/25/2025 1:44 PM EDT [facility] ([facility]) Hemoglobin 8.3(L) 13.0 - 17.0 g/dL 02/25/2025 1:44 PM EDT [facility] ([facility]) Hematocrit 24.3(L) 39.0 - 50.0 % 02/25/2025 1:44 PM EDT [facility] ([facility]) MCV 89.7 82.0 - 98.0 fL 02/25/2025 1:44 PM EDT [facility] ([facility]) MCH 30.6 27.0 - 33.0 pg 02/25/2025 1:44 PM EDT [facility] ([facility]) MCHC 34.2 32.0 - 35.0 g/dL 02/25/2025 1:44 PM EDT [facility] ([facility]) RDW 17.7(H) 11.5 - 15.0 % 02/25/2025 1:44 PM EDT [facility] ([facility]) Platelets 158 150 - 400 10*3/uL 02/25/2025 1:44 PM EDT [facility] ([facility]) Blood Arterial blood specimen / Unknown Existing Catheter / Unknown 02/25/2025 1:29 PM EDT 02/25/2025 1:35 PM EDT us Ruth Kramer MD LAB BLOOD ORDERABLES Final Resul t [facility] ([facility]) [address] [place] [address] * Transfuse RBC (02/25/2025 12:11 PM EDT) [...] the uncomplicated intravenous administration of 100 mL Sbpylogko755. 3-D maximum intensity projection reconstructions constructed underconcurrent [...] - 17.0 g/dL 02/25/2025 9:20 AM EDT [facility] ([facility]) Hematocrit 22.8(L) 39.0 - 50.0 % 02/25/2025 9:20 AM EDT [facility] ([facility]) Blood Arterial blood specimen / Unknown Existing Catheter / Unknown 02/25/2025 9:04 AM EDT 02/25/2025 9:12 AM EDT Ruth Kramer MD LAB BLOOD ORDERABLES Final Resul t [facility]) [address] [place] [id number] * Phosphorus (02/25/2025 5:06 AM EDT) Phosphorus 2.6 2.5 - 5.0 mg/dL 02/25/2025 6:27 AM EDT [facility] ([facility]) Blood Arterial blood specimen / Unknown Existing Catheter / Unknown 02/25/2025 5:06 AM EDT 02/25/2025 5:26 AM EDT Ruth Kramer MD LAB BLOOD ORDERABLES Final Resul t [facility] ([facility]) [address] [place] [id number] * Magnesium (02/25/2025 5:06 AM EDT) Magnesium 2.3 1.9 - 2.7 mg/dL 02/25/2025 6:27 AM EDT [facility] ([facility]) Blood Arterial blood specimen / Unknown Existing Catheter / Unknown 02/25/2025 5:06 AM EDT 02/25/2025 5:26 AM EDT us Ruth Kramer MD LAB BLOOD ORDERABLES Final Resul t [facility] ([facility]) [address] [place] [address] * (ABNORMAL) Comprehensive metabolic panel (02/25/2025 5:06 AM EDT) Sodium 133(L) 136 - 145 mmol/L 02/25/2025 6:27 AM EDT [facility] ([facility]) Potassium 4.1 3.5 - 5.1 mmol/L 02/25/2025 6:27 AM EDT [facility] ([facility]) Chloride 99 98 - 107 mmol/L 02/25/2025 6:27 AM EDT [facility] ([facility]) CO2 29 21 - 31 mmol/L 02/25/2025 6:27 AM EDT [facility] ([facility]) Anion Gap 9 7 - 20 mmol/L 02/25/2025 6:27 AM EDT [facility] ([facility]) BUN 40(H) 7 - 25 mg/dL 02/25/2025 6:27 AM EDT [facility] ([facility]) Creatinine 1.36(H) 0.70 - 1.30 mg/dL 02/25/2025 6:27 AM EDT [facility] ([facility]) BUN/Creatinine Ratio 29.4 01/30 6:27 AM EDT [facility] ([facility]) Glucose 102(H) 70 - 100 mg/dL 02/25/2025 6:27 AM EDT [facility] ([facility]) Calcium 8.1(L) 8.6 - 10.3 mg/dL 02/25/2025 6:27 AM EDT [facility] ([facility]) AST 19 13 - 39 U/L 02/25/2025 6:27 AM EDT [facility] ([facility]) ALT (SGPT) 27 7 - 52 U/L 02/25/2025 6:27 AM EDT [facility] ([facility]) Alkaline Phosphatase 54 34 - 104 U/L 02/25/2025 6:27 AM EDT [facility] ([facility]) Total Protein 4.9(L) 6.0 - 8.3 g/dL 02/25/2025 6:27 AM EDT [facility] ([facility]) Albumin 3.1(L) 3.5 - 5.7 g/dL 02/25/2025 6:27 AM EDT [facility] ([facility]) Total Bilirubin 2.8(H) 0.3 - 1.0 mg/dL 02/25/2025 6:27 AM EDT [facility] ([facility]) eGFR 60.3 >60.0 mL/min/1. 73m*2 02/25/2025 6:27 AM EDT [facility] ([facility]) Comment:[facility] s estimated glomerular filtration rate (eGFR) will [...] MD LAB BLOOD ORDERABLES Final Resul t [facility] ([facility]) [address] [place] [address] * (ABNORMAL) CBC (02/25/2025 5:06 AM EDT) Auto WBC 8.90 4.00 - 10.60 10*3/uL 02/25/2025 6:03 AM EDT [facility] ([facility]) RBC 2.48(L) 4.20 - 5.70 10*6/uL 02/25/2025 6:03 AM EDT [facility] ([facility]) Hemoglobin 7.7(L) 13.0 - 17.0 g/dL 02/25/2025 6:03 AM EDT [facility] ([facility]) Hematocrit 22.7(L) 39.0 - 50.0 % 02/25/2025 6:03 AM EDT [facility] ([facility]) MCV 91.5 82.0 - 98.0 fL 02/25/2025 6:03 AM EDT [facility] ([facility]) MCH 31.0 27.0 - 33.0 pg 02/25/2025 6:03 AM EDT [facility] ([facility]) MCHC 33.9 32.0 - 35.0 g/dL 02/25/2025 6:03 AM EDT [facility] ([facility]) RDW 15.8(H) 11.5 - 15.0 % 02/25/2025 6:03 AM EDT [facility] ([facility]) Platelets 172 150 - 400 10*3/uL 02/25/2025 6:03 AM EDT [facility] ([facility]) Blood Arterial blood specimen / Unknown Existing Catheter / Unknown 02/25/2025 5:06 AM EDT 02/25/2025 5:26 AM EDT us Ruth Kramer MD LAB BLOOD ORDERABLES Final Resul t [facility]) [address] [place] [address] * (ABNORMAL) Digoxin level (02/25/2025 5:06 AM EDT) Pathologist [facility] Digoxin Lvl 2.3(HH) 0.7 - 2 ng/mL 02/25/2025 6:54 AM EDT [facility] ([facility]) Blood Arterial blood specimen / Unknown Existing Catheter / Unknown 02/25/2025 5:06 AM EDT 02/25/2025 5:26 AM EDT Ruth Kramer MD LAB BLOOD ORDERABLES Final Resul t [facility] ([facility]) [address] [place] [address] * (ABNORMAL) CBC (02/25/2025 12:06 AM EDT) Auto WBC 10.11 4.00 - 10.60 10*3/uL 02/25/2025 12:45 AM EDT [facility] ([facility]) RBC 2.62(L) 4.20 - 5.70 10*6/uL 02/25/2025 12:45 AM EDT [facility] ([facility]) Hemoglobin 8.3(L) 13.0 - 17.0 g/dL 02/25/2025 12:45 AM EDT [facility] ([facility]) Hematocrit 23.7(L) 39.0 - 50.0 % 02/25/2025 12:45 AM EDT [facility] ([facility]) MCV 90.5 82.0 - 98.0 fL 02/25/2025 12:45 AM EDT [facility] ([facility]) MCH 31.7 27.0 - 33.0 pg 02/25/2025 12:45 AM EDT [facility] ([facility]) MCHC 35.0 32.0 - 35.0 g/dL 02/25/2025 12:45 AM EDT [facility] ([facility]) RDW 15.8(H) 11.5 - 15.0 % 02/25/2025 12:45 AM EDT [facility] ([facility]) Platelets 178 150 - 400 10*3/uL 02/25/2025 12:45 AM EDT [facility] ([facility]) Blood Arterial blood specimen / Unknown Existing Catheter / Unknown 02/25/2025 12:06 AM EDT 02/25/2025 12:20 AM EDT us Ruth Kramer MD LAB BLOOD ORDERABLES Final Resul t [facility] ([facility]) [address] [place] [address] * (ABNORMAL) CBC (02/24/2025 6:37 PM EDT) Auto WBC 12.23(H) 4.00 - 10.60 10*3/uL 02/24/2025 6:50 PM EDT [facility] ([facility]) RBC 2.73(L) 4.20 - 5.70 10*6/uL 02/24/2025 6:50 PM EDT [facility] ([facility]) Hemoglobin 8.6(L) 13.0 - 17.0 g/dL 02/24/2025 6:50 PM EDT [facility] ([facility]) Hematocrit 24.4(L) 39.0 - 50.0 % 02/24/2025 6:50 PM EDT [facility] ([facility]) MCV 89.4 82.0 - 98.0 fL 02/24/2025 6:50 PM EDT [facility] ([facility]) MCH 31.5 27.0 - 33.0 pg 02/24/2025 6:50 PM EDT [facility] ([facility]) MCHC 35.2(H) 32.0 - 35.0 g/dL 02/24/2025 6:50 PM EDT [facility] ([facility]) RDW 15.8(H) 11.5 - 15.0 % 02/24/2025 6:50 PM EDT [facility] ([facility]) Platelets 182 150 - 400 10*3/uL 02/24/2025 6:50 PM EDT [facility] ([facility]) Blood Arterial blood specimen / Unknown Existing Catheter / Unknown 02/24/2025 6:37 PM EDT 02/24/2025 6:41 PM EDT us Ruth Kramer MD LAB BLOOD ORDERABLES Final Resul t [facility] ([facility]) [address] [place] [address] * (ABNORMAL) CBC (02/24/2025 12:43 PM EDT) Pathologist [facility] Auto WBC 16.83(H) 4.00 - 10.60 10*3/uL 02/24/2025 1:39 PM EDT [facility] ([facility]) RBC 2.89(L) 4.20 - 5.70 10*6/uL 02/24/2025 1:39 PM EDT [facility] ([facility]) Hemoglobin 9.1(L) 13.0 - 17.0 g/dL 02/24/2025 1:39 PM EDT [facility] ([facility]) Hematocrit 26.1(L) 39.0 - 50.0 % 02/24/2025 1:39 PM EDT [facility] ([facility]) MCV 90.3 82.0 - 98.0 fL 02/24/2025 1:39 PM EDT [facility] ([facility]) MCH 31.5 27.0 - 33.0 pg 02/24/2025 1:39 PM EDT [facility] ([facility]) MCHC 34.9 32.0 - 35.0 g/dL 02/24/2025 1:39 PM EDT [facility] ([facility]) RDW 15.8(H) 11.5 - 15.0 % 02/24/2025 1:39 PM EDT [facility] ([facility]) Platelets 196 150 - 400 10*3/uL 02/24/2025 1:39 PM EDT [facility] ([facility]) Blood Arterial blood specimen / Unknown Existing Catheter / Unknown 02/24/2025 12:43 PM EDT 02/24/2025 1:13 PM EDT us Ruth Kramer MD LAB BLOOD ORDERABLES Final Resul t [facility]) [address] [place] [address] * Potassium, urine, random (02/24/2025 10:52 AM EDT) Potassium, Ur 107 mmol/L 02/24/2025 11:31 AM EDT [facility] ([facility]) Urine Urine specimen obtained by clean catch procedure / Unknown Non-blood Collection / Unknown 02/24/2025 10:52 AM EDT 02/24/2025 11:05 AM EDT us Matilda Sheppard MD LAB URINE ORDERABLES Final Resu lt Performing Organization Address City/[facility]/ZIP Co de Phone Number [facility]) [address] [place] [address] * Sodium, urine, random (02/24/2025 10:52 AM EDT) Sodium, Ur 15 mmol/L 02/24/2025 11:31 AM EDT [facility]) Urine Urine specimen obtained by clean catch procedure / Unknown Non-blood Collection / Unknown 02/24/2025 10:52 AM EDT 02/24/2025 11:05 AM EDT us Matilda Sheppard MD LAB URINE ORDERABLES Final Resu lt Performing Organization Address [facility] Co de Phone Number [facility]) [address] [place] [phone] * (ABNORMAL) Chloride, urine, random (02/24/2025 10:52 AM EDT) Chloride, Ur <15.0(L) 110 - 250 mmol/L 02/24/2025 11:31 AM EDT [facility] ([facility]) Urine Urine specimen obtained by clean catch procedure / Unknown Non-blood Collection / Unknown 02/24/2025 10:52 AM EDT 02/24/2025 11:05 AM EDT us Matilda Sheppard MD LAB URINE ORDERABLES Final Resu lt Performing Organization Address City/[facility]/ZIP Co de Phone Number [facility] ([facility]) [address] [place] [address] * Creatinine, urine, random (02/24/2025 10:52 AM EDT) Creatinine, Ur 170.0 26 - 299 mg/dL 02/24/2025 11:31 AM EDT [facility] ([facility]) Urine Urine specimen obtained by clean catch procedure / Unknown Non-blood Collection / Unknown 02/24/2025 10:52 AM EDT 02/24/2025 11:05 AM EDT Matilda Sheppard MD LAB URINE ORDERABLES Final Resu lt Performing Organization Address City/[facility]/ZIP Co de Phone Number [facility] ([facility]) [address] [place] [address] * Osmolality, urine (02/24/2025 10:52 AM EDT) Osmolality, Urine 686 80 - 1300 mOsm/kg 02/24/2025 5:40 PM EDT [facility] Comment:Test Performed by [facility] [address] [place], [place] [id number] - Lnnibovv 02/24/2025 17:40 Urine Urine specimen obtained by clean catch procedure / Unknown Non-blood Collection / Unknown 02/24/2025 10:52 AM EDT 02/24/2025 11:05 AM EDT Matilda Sheppard MD LAB URINE ORDERABLES Final Resu lt [facility] [address] [place] [address] * (ABNORMAL) Urinalysis with microscopic (02/24/2025 10:52 AM EDT) Color, Urine Yellow Colorless, Yellow, Light-Yellow 02/24/2025 11:28 AM EDT [facility] ([facility]) Clarity, Urine Cloudy(A) Clear 02/24/2025 11:28 AM EDT [facility] ([facility]) Specific [place], Urine 1.036(H) 1.010 - 1.030 02/24/2025 11:28 AM [facility] ([facility]) pH, Urine 5.5 5.0 - 8.0 pH 02/24/2025 11:28 AM [facility] ([facility]) Leukocytes, Urine Moderate(A) Negative 02/24/2025 11:28 AM [facility] ([facility]) Nitrite, Urine Negative Negative 02/24/2025 11:28 AM [facility] ([facility]) Protein, Urine 30(A) Negative mg/dL 02/24/2025 11:28 AM [facility] ([facility]) Glucose, Urine Normal Normal mg/dL 02/24/2025 11:28 AM [facility] ([facility]) Bilirubin, Urine Negative Negative 02/24/2025 11:28 AM [facility] ([facility]) Ketones, Urine Negative Negative mg/dL 02/24/2025 11:28 AM [facility] ([facility]) Urobilinogen, Urine Normal Normal mg/dL 02/24/2025 11:28 AM [facility] ([facility]) Blood, Urine Large(A) Negative 02/24/2025 11:28 AM [facility] ([facility]) RBC, Urine >20(A) None Seen, 0-2 /HPF 02/24/2025 11:28 AM [facility] ([facility]) WBC, Urine 21-50(A) None Seen, 0-2 /HPF 02/24/2025 11:28 AM [facility] ([facility]) Squamous Epithelial, Urine Moderate(A) None Seen, Occasional, Few /LPF 02/24/2025 11:28 AM [facility] ([facility]) Mucus, Urine Moderate(A) None Seen, Occasional, Few /LPF 02/24/2025 11:28 AM [facility] ([facility]) Casts, Urine Present(A) None Seen /LPF 02/24/2025 11:28 AM [facility] ([facility]) Hyaline Casts, UA 3-5(A) 0 - 2 /LPF 02/24/2025 11:28 AM [facility] ([facility]) Urine Urine specimen obtained by clean catch procedure / Unknown Non-blood Collection / Unknown 02/24/2025 10:52 AM EDT 02/24/2025 11:05 AM EDT us Matilda Sheppard MD LAB URINE ORDERABLES Final Resu lt [facility] ([facility]) [address] [place] [address] * US renal complete (02/24/2025 10:09 AM [...] with knownhematoma. Electronically signed: INES JORDAN MD. us Matilda Sheppard MD IMG US PROCEDURES Final Result * (ABNORMAL) Phosphorus (02/24/2025 3:21 AM EDT) Phosphorus 5.4(H) 2.5 - 5.0 mg/dL 02/24/2025 4:04 AM EDT [facility] ([facility]) Blood Arterial blood specimen / Unknown Existing Catheter / Unknown 02/24/2025 3:21 AM EDT 02/24/2025 3:39 AM EDT us Ruth Kramer MD LAB BLOOD ORDERABLES Final Resul t Performing Organization Address [facility] Co de Phone Number [facility] ([facility]) [address] [place], [place] [id number] * Magnesium (02/24/2025 3:21 AM EDT) Magnesium 2.1 1.9 - 2.7 mg/dL 02/24/2025 4:04 AM EDT [facility] ([facility]) Blood Arterial blood specimen / Unknown Existing Catheter / Unknown 02/24/2025 3:21 AM EDT 02/24/2025 3:39 AM EDT us Ruth Kramer MD LAB BLOOD ORDERABLES Final Resul t [facility] ([facility]) [address] [place] [address] * (ABNORMAL) Comprehensive metabolic panel (02/24/2025 3:21 AM EDT) Sodium 135(L) 136 - 145 mmol/L 02/24/2025 4:04 AM T [facility] ([facility]) Potassium 4.1 3.5 - 5.1 mmol/L 02/24/2025 4:04 AM T [facility] ([facility]) Chloride 99 98 - 107 mmol/L 02/24/2025 4:04 AM [facility] ([facility]) CO2 28 21 - 31 mmol/L 02/24/2025 4:04 AM [facility] ([facility]) Anion Gap 12 7 - 20 mmol/L 02/24/2025 4:04 AM [facility] ([facility]) BUN 52(H) 7 - 25 mg/dL 02/24/2025 4:04 AM [facility] ([facility]) Creatinine 2.43(H) 0.70 - 1.30 mg/dL 02/24/2025 4:04 AM [facility] ([facility]) BUN/Creatinine Ratio 21.4 01/30 4:04 AM [facility] ([facility]) Glucose 104(H) 70 - 100 mg/dL 02/24/2025 4:04 AM [facility] ([facility]) Calcium 8.5(L) 8.6 - 10.3 mg/dL 02/24/2025 4:04 AM [facility] ([facility]) AST 24 13 - 39 U/L 02/24/2025 4:04 AM [facility] ([facility]) ALT (SGPT) 32 7 - 52 U/L 02/24/2025 4:04 AM [facility] ([facility]) Alkaline Phosphatase 58 34 - 104 U/L 02/24/2025 4:04 AM [facility] ([facility]) Total Protein 5.2(L) 6.0 - 8.3 g/dL 02/24/2025 4:04 AM [facility] ([facility]) Albumin 3.3(L) 3.5 - 5.7 g/dL 02/24/2025 4:04 AM EDT [facility] ([facility]) Total Bilirubin 3.0(H) 0.3 - 1.0 mg/dL 02/24/2025 4:04 AM EDT [facility] ([facility]) eGFR 30.1(L) >60.0 mL/min/1. 73m*2 02/24/2025 4:04 AM EDT [facility] ([facility]) Comment:The [facility] s estimated glomerular filtration rate (eGFR) will [...] MD LAB BLOOD ORDERABLES Final Resul t [facility] ([facility]) [address] [place] [address] * (ABNORMAL) CBC (02/24/2025 3:21 AM EDT) Auto WBC 14.22(H) 4.00 - 10.60 10*3/uL 02/24/2025 4:08 AM EDT [facility] ([facility]) RBC 2.86(L) 4.20 - 5.70 10*6/uL 02/24/2025 4:08 AM EDT [facility] ([facility]) Hemoglobin 9.0(L) 13.0 - 17.0 g/dL 02/24/2025 4:08 AM EDT [facility] ([facility]) Hematocrit 26.4(L) 39.0 - 50.0 % 02/24/2025 4:08 AM EDT [facility] ([facility]) MCV 92.3 82.0 - 98.0 fL 02/24/2025 4:08 AM EDT [facility] ([facility]) MCH 31.5 27.0 - 33.0 pg 02/24/2025 4:08 AM EDT [facility] ([facility]) MCHC 34.1 32.0 - 35.0 g/dL 02/24/2025 4:08 AM EDT [facility] ([facility]) RDW 15.9(H) 11.5 - 15.0 % 02/24/2025 4:08 AM EDT [facility] ([facility]) Platelets 173 150 - 400 10*3/uL 02/24/2025 4:08 AM EDT [facility] ([facility]) Blood Arterial blood specimen / Unknown Existing Catheter / Unknown 02/24/2025 3:21 AM EDT 02/24/2025 3:39 AM EDT us Ruth Kramer MD LAB BLOOD ORDERABLES Final Resul t [facility]) [address] [place] [address] * (ABNORMAL) CBC (02/23/2025 11:50 PM EDT) Auto WBC 14.02(H) 4.00 - 10.60 10*3/uL 02/24/2025 12:14 AM EDT [facility] ([facility]) RBC 2.79(L) 4.20 - 5.70 10*6/uL 02/24/2025 12:14 AM EDT [facility] ([facility]) Hemoglobin 8.8(L) 13.0 - 17.0 g/dL 02/24/2025 12:14 AM EDT [facility] ([facility]) Hematocrit 25.4(L) 39.0 - 50.0 % 02/24/2025 12:14 AM EDT [facility] ([facility]) MCV 91.0 82.0 - 98.0 fL 02/24/2025 12:14 AM EDT [facility] ([facility]) MCH 31.5 27.0 - 33.0 pg 02/24/2025 12:14 AM EDT [facility] ([facility]) MCHC 34.6 32.0 - 35.0 g/dL 02/24/2025 12:14 AM EDT [facility] ([facility]) RDW 15.9(H) 11.5 - 15.0 % 02/24/2025 12:14 AM EDT [facility] ([facility]) Platelets 171 150 - 400 10*3/uL 02/24/2025 12:14 AM EDT [facility] ([facility]) Blood Arterial blood specimen / Unknown Existing Catheter / Unknown 02/23/2025 11:50 PM EDT 02/24/2025 12:05 AM EDT us Ruth Kramer MD LAB BLOOD ORDERABLES Final Resul t [facility]) [address] [place] [address] * (ABNORMAL) CBC (02/23/2025 6:30 PM EDT) Auto WBC 16.62(H) 4.00 - 10.60 10*3/uL 02/23/2025 6:56 PM EDT [facility] ([facility]) RBC 3.13(L) 4.20 - 5.70 10*6/uL 02/23/2025 6:56 PM EDT [facility] ([facility]) Hemoglobin 9.9(L) 13.0 - 17.0 g/dL 02/23/2025 6:56 PM EDT [facility] ([facility]) Hematocrit 28.0(L) 39.0 - 50.0 % 02/23/2025 6:56 PM EDT [facility] ([facility]) MCV 89.5 82.0 - 98.0 fL 02/23/2025 6:56 PM EDT [facility] ([facility]) MCH 31.6 27.0 - 33.0 pg 02/23/2025 6:56 PM EDT [facility] ([facility]) MCHC 35.4(H) 32.0 - 35.0 g/dL 02/23/2025 6:56 PM EDT [facility] ([facility]) RDW 15.9(H) 11.5 - 15.0 % 02/23/2025 6:56 PM EDT [facility] ([facility]) Platelets 192 150 - 400 10*3/uL 02/23/2025 6:56 PM EDT [facility] ([facility]) Blood Venous blood specimen / Unknown Existing Catheter / Unknown 02/23/2025 6:30 PM EDT 02/23/2025 6:43 PM EDT us Ruth Kramer MD LAB BLOOD ORDERABLES Final Resul t [facility]) [address] [place], [place] [id number] * Blood culture, peripheral #1 (02/23/2025 12:04 PM EDT) Blood Culture No growth at 5 days [place] 02/28/2025 1:01 PM EDT [facility]) Blood Venous blood specimen / Unknown Venipuncture / Unknown 02/23/2025 12:04 PM EDT 02/23/2025 12:19 PM EDT us Ruth Kramer MD LAB MICROBIOLOGY - GENERAL ORDER LAURA Final Result [facility]) [address] [place] [address] * Blood culture, peripheral #2 (02/23/2025 12:03 PM EDT) Blood Culture No growth at 5 days [place] 02/28/2025 1:01 PM EDT [facility]) Blood Venous blood specimen / Unknown Venipuncture / Unknown 02/23/2025 12:03 PM EDT 02/23/2025 12:18 PM EDT us Ruth Kramer MD LAB MICROBIOLOGY - GENERAL ORDER LAURA Final Result Performing Organization Address City/[facility]/ZIP Co de Phone Number [facility]) [address] [place], [place] [id number] * Lactic Acid with 4 hour reflex (02/23/2025 11:59 AM EDT) Pathologist [facility] Lactate 1.8 0.5 - 2.2 mmol/L 02/23/2025 12:53 PM EDT [facility] ([facility]) Blood Venous blood specimen / Unknown Existing Catheter / Unknown 02/23/2025 11:59 AM EDT 02/23/2025 12:19 PM EDT us Ruth Kramer MD LAB BLOOD ORDERABLES Final Resul t Performing Organization Address [facility] Co de Phone Number [facility]) [address] [place] [address] * (ABNORMAL) CBC (02/23/2025 11:15 AM EDT) Auto WBC 15.65(H) 4.00 - 10.60 10*3/uL 02/23/2025 11:37 AM EDT [facility] ([facility]) RBC 3.29(L) 4.20 - 5.70 10*6/uL 02/23/2025 11:37 AM EDT [facility] ([facility]) Hemoglobin 10.4(L) 13.0 - 17.0 g/dL 02/23/2025 11:37 AM EDT [facility] ([facility]) Hematocrit 29.5(L) 39.0 - 50.0 % 02/23/2025 11:37 AM EDT [facility] ([facility]) MCV 89.7 82.0 - 98.0 fL 02/23/2025 11:37 AM EDT [facility] ([facility]) MCH 31.6 27.0 - 33.0 pg 02/23/2025 11:37 AM EDT [facility] ([facility]) MCHC 35.3(H) 32.0 - 35.0 g/dL 02/23/2025 11:37 AM EDT [facility] ([facility]) RDW 15.8(H) 11.5 - 15.0 % 02/23/2025 11:37 AM EDT [facility] ([facility]) Platelets 200 150 - 400 10*3/uL 02/23/2025 11:37 AM EDT [facility] ([facility]) Blood Venous blood specimen / Unknown Existing Catheter / Unknown 02/23/2025 11:15 AM EDT 02/23/2025 11:25 AM EDT us Ruth Kramer MD LAB BLOOD ORDERABLES Final Resul t [facility] ([facility]) [address] [place] [address] * ECG 12 lead (02/23/2025 9:48 AM EDT) Ventricular Rate 148 BPM GE MUSE Atrial Rate 148 BPM GE MUSE MD Interval 136 ms GE MUSE QRS DURATION 166 ms GE MUSE QT Interval 306 ms GE MUSE QTC CALCULATION(BAZE TT) 480 ms GE MUSE P [place] 4 degrees GE MUSE R-[place] -50 degrees GE MUSE T Wave [place] 159 degrees GE MUSE 02/23/2025 9:35 AM [...] ECG ORDERABLES Final Result Performing Organization Address City/[facility]/ZIP Co de Phone Number GE MUSE * (ABNORMAL) Phosphorus (02/23/2025 5:33 AM EDT) Phosphorus 6.1(H) 2.5 - 5.0 mg/dL 02/23/2025 6:08 AM EDT [facility] ([facility]) Blood Venous blood specimen / Unknown Existing Catheter / Unknown 02/23/2025 5:33 AM EDT 02/23/2025 5:43 AM EDT us Ruth Kramer MD LAB BLOOD ORDERABLES Final Resul t Performing Organization Address [facility] Co de Phone Number [facility]) [address] [place] [phone] * Magnesium (02/23/2025 5:33 AM EDT) Pathologist [facility] Magnesium 2.0 1.9 - 2.7 mg/dL 02/23/2025 6:08 AM EDT [facility] ([facility]) Blood Venous blood specimen / Unknown Existing Catheter / Unknown 02/23/2025 5:33 AM EDT 02/23/2025 5:43 AM EDT us Ruth Kramer MD LAB BLOOD ORDERABLES Final Resul t Performing Organization Address [facility] Co de Phone Number [facility]) [address] [place] [phone] * (ABNORMAL) Comprehensive metabolic panel (02/23/2025 5:33 AM EDT) Sodium 136 136 - 145 mmol/L 02/23/2025 6:08 AM EDT [facility]) Potassium 4.5 3.5 - 5.1 mmol/L 02/23/2025 6:08 AM EDT [facility] ([facility]) Chloride 101 98 - 107 mmol/L 02/23/2025 6:08 AM EDT [facility] ([facility]) CO2 24 21 - 31 mmol/L 02/23/2025 6:08 AM [facility] ([facility]) Anion Gap 16 7 - 20 mmol/L 02/23/2025 6:08 AM [facility] ([facility]) BUN 39(H) 7 - 25 mg/dL 02/23/2025 6:08 AM [facility] ([facility]) Creatinine 2.27(H) 0.70 - 1.30 mg/dL 02/23/2025 6:08 AM [facility] ([facility]) BUN/Creatinine Ratio 17.2 01/30 6:08 AM [facility] ([facility]) Glucose 118(H) 70 - 100 mg/dL 02/23/2025 6:08 AM [facility] ([facility]) Calcium 8.9 8.6 - 10.3 mg/dL 02/23/2025 6:08 AM [facility] ([facility]) AST 25 13 - 39 U/L 02/23/2025 6:08 AM [facility] ([facility]) ALT (SGPT) 32 7 - 52 U/L 02/23/2025 6:08 AM [facility] ([facility]) Alkaline Phosphatase 61 34 - 104 U/L 02/23/2025 6:08 AM [facility] ([facility]) Total Protein 5.5(L) 6.0 - 8.3 g/dL 02/23/2025 6:08 AM [facility] ([facility]) Albumin 3.5 3.5 - 5.7 g/dL 02/23/2025 6:08 AM [facility] ([facility]) Total Bilirubin 3.4(H) 0.3 - 1.0 mg/dL 02/23/2025 6:08 AM [facility] ([facility]) eGFR 32.6(L) >60.0 mL/min/1. 73m*2 02/23/2025 6:08 AM [facility] ([facility]) Comment:[facility] s estimated glomerular filtration rate (eGFR) will [...] MD LAB BLOOD ORDERABLES Final Resul t [facility]) [address] [place] [address] * (ABNORMAL) CBC (02/23/2025 5:33 AM EDT) Auto WBC 14.82(H) 4.00 - 10.60 10*3/uL 02/23/2025 6:05 AM EDT [facility] ([facility]) RBC 3.46(L) 4.20 - 5.70 10*6/uL 02/23/2025 6:05 AM EDT [facility] ([facility]) Hemoglobin 10.9(L) 13.0 - 17.0 g/dL 02/23/2025 6:05 AM EDT [facility] ([facility]) Hematocrit 31.1(L) 39.0 - 50.0 % 02/23/2025 6:05 AM EDT [facility] ([facility]) MCV 89.9 82.0 - 98.0 fL 02/23/2025 6:05 AM EDT [facility] ([facility]) MCH 31.5 27.0 - 33.0 pg 02/23/2025 6:05 AM EDT [facility] ([facility]) MCHC 35.0 32.0 - 35.0 g/dL 02/23/2025 6:05 AM EDT [facility]) RDW 15.8(H) 11.5 - 15.0 % 02/23/2025 6:05 AM EDT [facility] ([facility]) Platelets 214 150 - 400 10*3/uL 02/23/2025 6:05 AM EDT [facility] ([facility]) Blood Venous blood specimen / Unknown Existing Catheter / Unknown 02/23/2025 5:33 AM EDT 02/23/2025 5:43 AM EDT us Ruth Kramer MD LAB BLOOD ORDERABLES Final Resul t [facility] ([facility]) [address] [place] [address] * (ABNORMAL) Basic metabolic panel (02/23/2025 12:07 AM EDT) Sodium 137 136 - 145 mmol/L 02/23/2025 12:38 AM EDT [facility] ([facility]) Potassium 4.5 3.5 - 5.1 mmol/L 02/23/2025 12:38 AM EDT [facility] ([facility]) Chloride 102 98 - 107 mmol/L 02/23/2025 12:38 AM EDT [facility] ([facility]) CO2 25 21 - 31 mmol/L 02/23/2025 12:38 AM EDT [facility] ([facility]) BUN 35(H) 7 - 25 mg/dL 02/23/2025 12:38 AM EDT [facility] ([facility]) Creatinine 2.01(H) 0.70 - 1.30 mg/dL 02/23/2025 12:38 AM EDT [facility] ([facility]) Glucose 128(H) 70 - 100 mg/dL 02/23/2025 12:38 AM EDT [facility] ([facility]) Calcium 9.1 8.6 - 10.3 mg/dL 02/23/2025 12:38 AM EDT [facility] ([facility]) Anion Gap 15 7 - 20 mmol/L 02/23/2025 12:38 AM EDT [facility] ([facility]) eGFR 37.7(L) >60.0 mL/min/1. 73m*2 02/23/2025 12:38 AM EDT [facility] ([facility]) Comment:[facility] s estimated glomerular filtration rate (eGFR) will [...] BUN/Creatinine Ratio 17.4 01/30 12:38 AM EDT [facility] ([facility]) Blood Venous blood specimen / Unknown Existing Catheter / Unknown 02/23/2025 12:07 AM EDT 02/23/2025 12:13 AM EDT us Ruth Kramer MD LAB BLOOD ORDERABLES Final Resul t [facility]) [address] [place] [address] * (ABNORMAL) CBC (02/23/2025 12:07 AM EDT) Auto WBC 13.82(H) 4.00 - 10.60 10*3/uL 02/23/2025 12:55 AM EDT [facility] ([facility]) RBC 3.53(L) 4.20 - 5.70 10*6/uL 02/23/2025 12:55 AM EDT [facility] ([facility]) Hemoglobin 11.1(L) 13.0 - 17.0 g/dL 02/23/2025 12:55 AM EDT [facility] ([facility]) Hematocrit 32.1(L) 39.0 - 50.0 % 02/23/2025 12:55 AM EDT [facility] ([facility]) MCV 90.9 82.0 - 98.0 fL 02/23/2025 12:55 AM EDT [facility] ([facility]) MCH 31.4 27.0 - 33.0 pg 02/23/2025 12:55 AM EDT [facility] ([facility]) MCHC 34.6 32.0 - 35.0 g/dL 02/23/2025 12:55 AM EDT [facility] ([facility]) RDW 15.9(H) 11.5 - 15.0 % 02/23/2025 12:55 AM EDT [facility] ([facility]) Platelets 213 150 - 400 10*3/uL 02/23/2025 12:55 AM EDT [facility] ([facility]) Blood Venous blood specimen / Unknown Existing Catheter / Unknown 02/23/2025 12:07 AM EDT 02/23/2025 12:13 AM EDT us Ruth Kramer MD LAB BLOOD ORDERABLES Final Resul t [facility] ([facility]) [address] [place] [address] * XR chest 1 view (02/22/2025 7:06 [...] - 10.60 10*3/uL 02/22/2025 6:49 PM EDT [facility] ([facility]) RBC 3.66(L) 4.20 - 5.70 10*6/uL 02/22/2025 6:49 PM EDT [facility] ([facility]) Hemoglobin 11.4(L) 13.0 - 17.0 g/dL 02/22/2025 6:49 PM EDT [facility] ([facility]) Hematocrit 33.4(L) 39.0 - 50.0 % 02/22/2025 6:49 PM EDT [facility] ([facility]) MCV 91.3 82.0 - 98.0 fL 02/22/2025 6:49 PM EDT [facility] ([facility]) MCH 31.1 27.0 - 33.0 pg 02/22/2025 6:49 PM EDT [facility] ([facility]) MCHC 34.1 32.0 - 35.0 g/dL 02/22/2025 6:49 PM EDT [facility] ([facility]) RDW 15.9(H) 11.5 - 15.0 % 02/22/2025 6:49 PM EDT [facility] ([facility]) Platelets 215 150 - 400 10*3/uL 02/22/2025 6:49 PM EDT [facility] ([facility]) Blood Arterial blood specimen / Unknown Arterial Line / Unknown 02/22/2025 6:31 PM EDT 02/22/2025 6:36 PM EDT us Ruth Kramer MD LAB BLOOD ORDERABLES Final Resul t [facility] ([facility]) [address] [place] [address] * (ABNORMAL) Urinalysis microscopic with reflex culture (02/22/2025 4:15 PM EDT) RBC, Urine >20(A) None Seen, 0-2 /HPF 02/22/2025 4:42 PM EDT [facility] ([facility]) WBC, Urine None Seen None Seen, 0-2 /HPF 02/22/2025 4:42 PM EDT [facility] ([facility]) Squamous Epithelial, Urine None Seen None Seen, Occasional , Few /LPF 02/22/2025 4:42 PM EDT [facility] ([facility]) Urine (Urine, Tello Catheter) Non-blood Collection / Unknown 02/22/2025 4:15 PM EDT 02/22/2025 4:20 PM EDT us Suleiman Corcoran MD LAB URINE ORDERABLES Final Res ult [facility] ([facility]) [address] [place] [address] * (ABNORMAL) Urinalysis with reflex culture (02/22/2025 4:15 PM EDT) Color, Urine Red(A) Colorless, Yellow, Light-Yellow 02/22/2025 4:42 PM EDT [facility] ([facility]) Clarity, Urine Turbid(A) Clear 02/22/2025 4:42 PM EDT [facility] ([facility]) pH, Urine 5.5 5.0 - 8.0 pH 02/22/2025 4:42 PM EDT [facility] ([facility]) Leukocytes, Urine Trace(A) Negative 02/22/2025 4:42 PM EDT [facility] ([facility]) Nitrite, Urine Negative Negative 02/22/2025 4:42 PM EDT [facility] ([facility]) Protein, Urine 30(A) Negative mg/dL 02/22/2025 4:42 PM EDT [facility] ([facility]) Glucose, Urine Normal Normal mg/dL 02/22/2025 4:42 PM EDT [facility] ([facility]) Bilirubin, Urine Negative Negative 02/22/2025 4:42 PM EDT [facility] ([facility]) Specific [place], Urine >1.050(H) 1.010 - 1.030 02/22/2025 4:42 PM EDT [facility] ([facility]) Ketones, Urine Negative Negative mg/dL 02/22/2025 4:42 PM EDT [facility] ([facility]) Blood, Urine Large(A) Negative 02/22/2025 4:42 PM EDT [facility] ([facility]) Urobilinogen, Urine Normal Normal mg/dL 02/22/2025 4:42 PM EDT [facility] ([facility]) Urine (Urine, Tello Catheter) Non-blood Collection / Unknown 02/22/2025 4:15 PM EDT 02/22/2025 4:20 PM EDT us Suleiman Corcoran MD LAB URINE ORDERABLES Final Res ult [facility] ([facility]) [address] [place] [address] * CT chest w IV contrast (02/22/2025 [...] present. Bilateral pleural effusions. There is a [id number] pericardial effusion. Aorta is unremarkable. Mild to [...] scarring present. Bilateral pleural effusions.There is a [id number] pericardial effusion. Aorta is unremarkable. Mildto moderate [...] - 14.8 Seconds 02/22/2025 2:35 PM EDT [facility] ([facility]) INR 1.47(H) 0.90 - 1.10 02/22/2025 2:35 PM EDT [facility] ([facility]) Comment: [facility] RECOMMENDED INR FOR WARFARIN THERAPY [...] MD LAB BLOOD ORDERABLES Final Resu lt Performing Organization Address City/[facility]/ZIP Co de Phone Number [facility]) [address] [place] [address] * Red Top (02/22/2025 11:49 AM EDT) Extra Tube Hold for add-ons. 02/22/2025 1:01 PM EDT [facility] ([facility]) Comment:Auto resulted. Blood Venous blood specimen / Unknown 02/22/2025 11:49 AM EDT 02/22/2025 11:55 AM EDT us Ruth Kramer MD LAB BLOOD ORDERABLES Final Resul t Performing Organization Address City/[facility]/ZIP Co de Phone Number [facility] ([facility]) [address] [place] [address] * (ABNORMAL) Comprehensive metabolic panel (02/22/2025 11:49 AM EDT) Sodium 139 136 - 145 mmol/L 02/22/2025 12:38 PM EDT [facility] ([facility]) Potassium 4.5 3.5 - 5.1 mmol/L 02/22/2025 12:38 PM EDT [facility] ([facility]) Chloride 104 98 - 107 mmol/L 02/22/2025 12:38 PM EDT [facility] ([facility]) CO2 24 21 - 31 mmol/L 02/22/2025 12:38 PM EDT [facility] ([facility]) Anion Gap 16 7 - 20 mmol/L 02/22/2025 12:38 PM EDT [facility] ([facility]) BUN 27(H) 7 - 25 mg/dL 02/22/2025 12:38 PM EDT [facility] ([facility]) Creatinine 1.43(H) 0.70 - 1.30 mg/dL 02/22/2025 12:38 PM T [facility] ([facility]) BUN/Creatinine Ratio 18.9 01/30 12:38 PM T [facility] ([facility]) Glucose 134(H) 70 - 100 mg/dL 02/22/2025 12:38 PM T [facility] ([facility]) Calcium 9.4 8.6 - 10.3 mg/dL 02/22/2025 12:38 PM T [facility] ([facility]) AST 22 13 - 39 U/L 02/22/2025 12:38 PM [facility] ([facility]) ALT (SGPT) 28 7 - 52 U/L 02/22/2025 12:38 PM T [facility] [facility] ([facility]) Alkaline Phosphatase 70 34 - 104 U/L 02/22/2025 12:38 PM T [facility] ([facility]) Total Protein 6.2 6.0 - 8.3 g/dL 02/22/2025 12:38 PM [facility] ([facility]) Albumin 4.0 3.5 - 5.7 g/dL 02/22/2025 12:38 PM [facility] ([facility]) Total Bilirubin 5.1(H) 0.3 - 1.0 mg/dL 02/22/2025 12:38 PM [facility] ([facility]) eGFR 56.8(L) >60.0 mL/min/1. 73m*2 02/22/2025 12:38 PM [facility] ([facility]) Comment:[facility] s estimated glomerular filtration rate (eGFR) will [...] MD LAB BLOOD ORDERABLES Final Resul t [facility] ([facility]) [address] [place] [address] * (ABNORMAL) CBC (02/22/2025 11:49 AM EDT) Auto WBC 11.61(H) 4.00 - 10.60 10*3/uL 02/22/2025 12:16 PM EDT [facility] ([facility]) RBC 4.37 4.20 - 5.70 10*6/uL 02/22/2025 12:16 PM EDT [facility] ([facility]) Hemoglobin 13.5 13.0 - 17.0 g/dL 02/22/2025 12:16 PM EDT [facility]) Hematocrit 40.1 39.0 - 50.0 % 02/22/2025 12:16 PM EDT [facility] ([facility]) MCV 91.8 82.0 - 98.0 fL 02/22/2025 12:16 PM EDT [facility] ([facility]) MCH 30.9 27.0 - 33.0 pg 02/22/2025 12:16 PM EDT [facility] ([facility]) MCHC 33.7 32.0 - 35.0 g/dL 02/22/2025 12:16 PM EDT [facility]) RDW 15.8(H) 11.5 - 15.0 % 02/22/2025 12:16 PM EDT [facility] ([facility]) Platelets 257 150 - 400 10*3/uL 02/22/2025 12:16 PM EDT [facility] ([facility]) Blood Venous blood specimen / Unknown Arterial Line / Unknown 02/22/2025 11:49 AM EDT 02/22/2025 12:03 PM EDT us Ruth Kramer MD LAB BLOOD ORDERABLES Final Resul t [facility]) [address] [place] [address] * Anti-Xa (Heparin Level) (02/22/2025 11:49 AM EDT) Pathologist [facility] Anti-Xa (Heparin) 0.55 0.3 - 0.7 IU/mL 02/22/2025 12:18 PM EDT [facility] ([facility]) Comment:Rivaroxaban and Apix aban will interfere with the anti Xa assay used to monitor UFH and LMWH. Blood Venous blood specimen / Unknown Arterial Line / Unknown 02/22/2025 11:49 AM EDT 02/22/2025 11:54 AM EDT us Suleiman Corcoran MD LAB BLOOD ORDERABLES Final Res ult [facility]) [address] [place] [address] * (ABNORMAL) POCT glucose meter (02/22/2025 11:34 AM EDT) [facility] Glucose POC 125(H) 70 - 105 mg/dL 02/22/2025 11:44 AM EDT [facility] ([facility]) Comment:[email or web address] Blood Capillary blood specimen / Unknown 02/22/2025 11:34 AM EDT 02/22/2025 11:44 AM EDT Narrative [facility]) - 02/22/2025 11:44 AM EDT Waived Testing in the ED is performed under the ED CLIA certificate #[id number]. us Ruth Kramer MD LAB BLOOD ORDERABLES Final Resul t [facility]) [address] [place] [address] * Lactic acid with 4 hour reflex (02/22/2025 9:47 AM EDT) [facility] Lactate 1.6 0.5 - 2.2 mmol/L 02/22/2025 10:30 AM EDT [facility] ([facility]) Blood Venous blood specimen / Unknown Venipuncture / Unknown 02/22/2025 9:47 AM EDT 02/22/2025 9:51 AM EDT Prabhu Chavez MD LAB BLOOD ORDERABLES Final Resul t [facility]) [address] [place] [address] * Blood culture, peripheral #2 (02/22/2025 9:46 AM EDT) Blood Culture No growth at 5 days [place] 02/27/2025 10:01 AM EDT [facility] ([facility]) Blood Venous blood specimen / Unknown Venipuncture / Unknown 02/22/2025 9:46 AM EDT 02/22/2025 9:51 AM EDT Prabhu Chavez MD LAB MICROBIOLOGY - GENERAL ORDER LAURA Final Result [facility]) [address] [place] [address] * Blood culture, peripheral #1 (02/22/2025 9:46 AM EDT) Blood Culture No growth at 5 days [place] 02/27/2025 10:01 AM EDT [facility]) Blood Venous blood specimen / Unknown Venipuncture / Unknown 02/22/2025 9:46 AM EDT 02/22/2025 9:51 AM EDT Prabhu Chavez MD LAB MICROBIOLOGY - GENERAL ORDER LAURA Final Result [facility]) [address] [place] [address] * Prepare RBC: 1 Units (02/22/2025 7:31 AM EDT) PRODUCT CODE [id number] [facility] [[email or web address]] BL OOD BANK Unit Number [id number] [facility] BLOOD BANK Unit ABO O [facility] [[email or web address]] BLOOD BANK Unit Rh POS [facility] [[email or web address]] BLOOD BANK Crossmatch Interpretation COMP [facility] [[email or web address]] BLOOD BANK Dispense Status TR [facility] [[email or web address]] BLOOD BANK Blood Expiration Date [id number] [facility] [[email or web address]] BLOOD BANK Product Blood Type 5100 [facility] [[email or web address]] BLOOD BANK Unit Volume 300 mL [facility] [[email or web address]] BLO OD BANK Other 02/22/2025 7:31 AM EDT us Ruth Kramer MD BLOOD BANK PRODUCT ORDERABLES Fi nal Result [facility] [[email or web address]] BLOOD BANK * ECG 12 lead (02/22/2025 7:16 AM EDT) Ventricular Rate 138 BPM GE MUSE QRS DURATION 166 ms GE MUSE QT Interval 364 ms GE MUSE QTC CALCULATION(BAZE TT) 551 ms GE MUSE R-Edcouch -18 degrees GE MUSE T Wave Edcouch 151 degrees GE MUSE 02/22/2025 7:05 AM [...] - 17.0 g/dL 02/22/2025 7:43 AM EDT [facility] ([facility]) Hematocrit 42.9 39.0 - 50.0 % 02/22/2025 7:43 AM EDT [facility] ([facility]) Blood Venous blood specimen / Unknown Venipuncture / Unknown 02/22/2025 7:07 AM EDT 02/22/2025 7:29 AM EDT us Suleiman Corcoran MD LAB BLOOD ORDERABLES Final Res ult [facility]) [address] [place], [place] [id number] * Lactic acid with 4 hour reflex (02/22/2025 7:07 AM EDT) Lactate 2.2 0.5 - 2.2 mmol/L 02/22/2025 7:45 AM EDT [facility]) Blood Venous blood specimen / Unknown Venipuncture / Unknown 02/22/2025 7:07 AM EDT 02/22/2025 7:11 AM EDT us Dell Handley MD LAB BLOOD ORDERABLES Final Re sult [facility]) [address] [place] [address] * Type and screen (02/22/2025 7:07 AM EDT) ABO Grouping O 02/22/2025 8:29 AM EDT [facility] [[email or web address]] BLOOD BANK Rh Type POS 02/22/2025 8:29 AM EDT [facility] [[email or web address]] BLOOD BANK Ab Scrn NEG 02/22/2025 8:29 AM EDT [facility] [[email or web address]] BLOOD BANK Blood Venous blood specimen / Unknown Venipuncture / Unknown 02/22/2025 7:07 AM EDT 02/22/2025 7:11 AM EDT us Suleiman Corcoran MD LAB BLOOD BANK TEST ORDERABLES Final Result [facility] [[email or web address]] BLOOD BANK * (ABNORMAL) Hepatic function panel (02/22/2025 7:00 AM EDT) Total Bilirubin 4.8(H) 0.3 - 1.0 mg/dL 02/22/2025 11:47 AM EDT [facility] ([facility]) Bilirubin, Direct 1.1(H) 0 - 0.2 mg/dL 02/22/2025 11:47 AM EDT [facility] ([facility]) Alkaline Phosphatase 72 34 - 104 U/L 02/22/2025 11:47 AM EDT [facility] ([facility]) AST 22 13 - 39 U/L 02/22/2025 11:47 AM EDT [facility] ([facility]) ALT (SGPT) 30 7 - 52 U/L 02/22/2025 11:47 AM EDT [facility] ([facility]) Total Protein 6.1 6.0 - 8.3 g/dL 02/22/2025 11:47 AM EDT [facility] ([facility]) Albumin 4.0 3.5 - 5.7 g/dL 02/22/2025 11:47 AM EDT [facility] ([facility]) Blood Venous blood specimen / Unknown 02/22/2025 7:00 AM EDT 02/22/2025 7:12 AM EDT us Ruth Kramer MD LAB BLOOD ORDERABLES Final Resul t [facility] ([facility]) [address] [place] [address] * Light Green Top (02/22/2025 7:00 AM EDT) Extra Tube Hold for add-ons. 02/22/2025 9:01 AM EDT [facility] ([facility]) Comment:Auto resulted. Blood Venous blood specimen / Unknown 02/22/2025 7:00 AM EDT 02/22/2025 7:12 AM EDT us Suleiman Corcoran MD LAB BLOOD ORDERABLES Final Res ult [facility] ([facility]) [address] [place] [address] * (ABNORMAL) CBC auto differential (02/22/2025 6:58 AM EDT) Auto WBC 10.73(H) 4.00 - 10.60 10*3/uL 02/22/2025 7:10 AM EDT [facility] ([facility]) RBC 4.55 4.20 - 5.70 10*6/uL 02/22/2025 7:10 AM EDT [facility] ([facility]) Hemoglobin 14.0 13.0 - 17.0 g/dL 02/22/2025 7:10 AM EDT [facility] ([facility]) Hematocrit 42.5 39.0 - 50.0 % 02/22/2025 7:10 AM EDT [facility] ([facility]) MCV 93.4 82.0 - 98.0 fL 02/22/2025 7:10 AM EDT [facility] ([facility]) MCH 30.8 27.0 - 33.0 pg 02/22/2025 7:10 AM EDT [facility] ([facility]) MCHC 32.9 32.0 - 35.0 g/dL 02/22/2025 7:10 AM EDT [facility] ([facility]) RDW 15.9(H) 11.5 - 15.0 % 02/22/2025 7:10 AM EDT [facility] ([facility]) Neutrophils % 81.9(H) 40.0 - 72.0 % 02/22/2025 7:10 AM EDT [facility] ([facility]) Lymphocytes % 10.6(L) 20.0 - 45.0 % 02/22/2025 7:10 AM EDT [facility] ([facility]) Monocytes % 6.8 5.0 - 12.0 % 02/22/2025 7:10 AM EDT [facility] ([facility]) Eosinophils % 0.0 0.0 - 6.0 % 02/22/2025 7:10 AM EDT [facility] ([facility]) Basophils % 0.2 0.0 - 1.0 % 02/22/2025 7:10 AM EDT [facility] ([facility]) Neutrophils Absolute 8.79(H) 1.60 - 7.60 10*3/uL 02/22/2025 7:10 AM EDT [facility] ([facility]) Lymphocytes Absolute 1.14(L) 1.20 - 4.00 10*3/uL 02/22/2025 7:10 AM EDT [facility] ([facility]) Monocytes Absolute 0.73 0.10 - 1.00 10*3/uL 02/22/2025 7:10 AM EDT [facility] ([facility]) Eosinophils Absolute 0.00 0.00 - 0.50 10*3/uL 02/22/2025 7:10 AM EDT [facility] ([facility]) Basophils Absolute 0.02 0.00 - 0.20 10*3/uL 02/22/2025 7:10 AM EDT [facility] ([facility]) Platelets 224 150 - 400 10*3/uL 02/22/2025 7:10 AM EDT [facility] ([facility]) nRBC % 0.0 0 % 02/22/2025 7:10 AM EDT [facility] ([facility]) Immature Granulocytes % 0.5 0.0 - 1.0 % 02/22/2025 7:10 AM EDT [facility] ([facility]) Immature Granulocytes Absolute 0.05 0.00 - 0.20 10*3/uL 02/22/2025 7:10 AM EDT [facility] ([facility]) Blood Venous blood specimen / Unknown Venipuncture / Unknown 02/22/2025 6:58 AM EDT 02/22/2025 7:10 AM EDT us Suleiman Corcoran MD LAB BLOOD ORDERABLES Final Res ult [facility]) [address] [place] [id number] * (ABNORMAL) Magnesium (02/22/2025 6:58 AM EDT) [facility] Magnesium 1.8(L) 1.9 - 2.7 mg/dL 02/22/2025 7:30 AM EDT [facility] ([facility]) Blood Venous blood specimen / Unknown Venipuncture / Unknown 02/22/2025 6:58 AM EDT 02/22/2025 7:30 AM EDT us Suleiman Corcoran MD LAB BLOOD ORDERABLES Final Res ult [facility]) [address] [place] [address] * (ABNORMAL) High Sensitivity Troponin I (02/22/2025 6:58 AM EDT) [facility] High Sensitivity Troponin I 27(H) <20 ng/L 02/22/2025 7:30 AM EDT [facility]) Blood Venous blood specimen / Unknown Venipuncture / Unknown 02/22/2025 6:58 AM EDT 02/22/2025 7:30 AM EDT us Suleiman Corcoran MD LAB BLOOD ORDERABLES Final Res ult Performing Organization Address City/[facility]/ZIP Co de Phone Number [facility]) [address] [place] [address] * (ABNORMAL) POCT glucose meter (02/22/2025 6:13 AM EDT) [facility] Glucose POC 129(H) 70 - 105 mg/dL 02/22/2025 6:33 AM EDT [facility]) Comment:blongor Blood Capillary blood specimen / Unknown 02/22/2025 6:13 AM EDT 02/22/2025 6:33 AM EDT Narrative [facility]) - 02/22/2025 6:33 AM EDT Waived Testing in the ED is performed under the ED CLIA certificate #[id number]. Suleiman Corcoran MD LAB BLOOD ORDERABLES Final Res ult [facility] ([facility]) [address] [place], [place] [id number] * (ABNORMAL) Anti-Xa (Heparin Level) (02/22/2025 5:08 AM EDT) Pathologist [facility] Anti-Xa (Heparin) 0.71(H) 0.3 - 0.7 IU/mL 02/22/2025 5:58 AM EDT [facility] ([facility]) Comment:Rivaroxaban and Apix aban will interfere with the anti Xa assay used to monitor UFH and LMWH. Blood Venous blood specimen / Unknown Venipuncture / Unknown 02/22/2025 5:08 AM EDT 02/22/2025 5:14 AM EDT Suleiman Corcoran MD LAB BLOOD ORDERABLES Final Res ult [facility] ([facility]) [address] [place], [place] [id number] * (ABNORMAL) CBC (02/22/2025 5:00 AM EDT) Auto WBC 12.27(H) 4.00 - 10.60 10*3/uL 02/22/2025 6:48 AM EDT [facility] ([facility]) RBC 4.92 4.20 - 5.70 10*6/uL 02/22/2025 6:48 AM EDT [facility] ([facility]) Hemoglobin 15.4 13.0 - 17.0 g/dL 02/22/2025 6:48 AM EDT [facility] ([facility]) Hematocrit 45.0 39.0 - 50.0 % 02/22/2025 6:48 AM EDT [facility] ([facility]) MCV 91.5 82.0 - 98.0 fL 02/22/2025 6:48 AM EDT [facility] ([facility]) MCH 31.3 27.0 - 33.0 pg 02/22/2025 6:48 AM EDT [facility] ([facility]) MCHC 34.2 32.0 - 35.0 g/dL 02/22/2025 6:48 AM EDT [facility] ([facility]) RDW 15.9(H) 11.5 - 15.0 % 02/22/2025 6:48 AM EDT [facility] ([facility]) Platelets 242 150 - 400 10*3/uL 02/22/2025 6:48 AM EDT [facility] ([facility]) Blood Venous blood specimen / Unknown 02/22/2025 5:00 AM EDT 02/22/2025 5:18 AM EDT us Suleiman Corcoran MD LAB BLOOD ORDERABLES Final Res ult Performing Organization Address City/[facility]/ZIP Co de Phone Number [facility]) [address] [place] [address] * (ABNORMAL) High Sensitivity Troponin I (02/22/2025 5:00 AM EDT) High Sensitivity Troponin I 31(H) <20 ng/L 02/22/2025 6:54 AM EDT [facility]) Blood Venous blood specimen / Unknown 02/22/2025 5:00 AM EDT 02/22/2025 5:18 AM EDT us Suleiman Corcoran MD LAB BLOOD ORDERABLES Final Res ult [facility]) [address] [place] [address] * Magnesium (02/22/2025 5:00 AM EDT) Magnesium 2.0 1.9 - 2.7 mg/dL 02/22/2025 6:49 AM EDT [facility]) Blood Venous blood specimen / Unknown 02/22/2025 5:00 AM EDT 02/22/2025 5:18 AM EDT Suleiman Corcoran MD LAB BLOOD ORDERABLES Final Res ult Performing Organization Address City/[facility]/ZIP Co de Phone Number [facility]) [address] [place] [address] * Lavender Top (02/22/2025 5:00 AM EDT) Extra Tube Hold for add-ons. 02/22/2025 7:01 AM EDT [facility] ([facility]) Comment:Auto resulted. Blood Venous blood specimen / Unknown 02/22/2025 5:00 AM EDT 02/22/2025 5:18 AM EDT Suleiman Corcoran MD LAB BLOOD ORDERABLES Final Res ult Performing Organization Address [facility] Co de Phone Number [facility]) [place] [address] * Light Green Top (02/22/2025 5:00 AM EDT) Extra Tube Hold for add-ons. 02/22/2025 7:01 AM EDT [facility] ([facility]) Comment:Auto resulted. Blood Venous blood specimen / Unknown 02/22/2025 5:00 AM EDT 02/22/2025 5:18 AM EDT Suleiman Corcoran MD LAB BLOOD ORDERABLES Final Res ult Performing Organization Address City/[facility] Co de Phone Number [facility]) [address] [place] [address] * CT abdomen pelvis wo IV contrast [...] as reasonably achievable. Electronically signed: Susana Miller. Suleiman Corcoran MD IMG CT PROCEDURES Final Result * Anti-Xa (Heparin Level) (02/21/2025 3:55 AM EDT) Anti-Xa (Heparin) 0.57 0.3 - 0.7 IU/mL 02/21/2025 4:37 AM EDT [facility] ([facility]) Comment:Rivaroxaban and Apix aban will interfere with the anti Xa assay used to monitor UFH and LMWH. Blood Venous blood specimen / Unknown Venipuncture / Unknown 02/21/2025 3:55 AM EDT 02/21/2025 4:05 AM EDT Kamran Del Valle MD LAB BLOOD ORDERABLES Final Resul t [facility] ([facility]) [address] [place], [place] [id number] * (ABNORMAL) APTT (02/21/2025 3:55 AM EDT) aPTT 117.9(H) 25.0 - 35.0 Seconds 02/21/2025 4:38 AM EDT [facility] ([facility]) Comment:Clinical significanc e of the APTT is questionable in the presence of heparin. Blood Venous blood specimen / Unknown Venipuncture / Unknown 02/21/2025 3:55 AM EDT 02/21/2025 4:05 AM EDT us Kamran Del Valle MD LAB BLOOD ORDERABLES Final Resul t [facility] ([facility]) [address] [place], [place] [id number] * (ABNORMAL) CBC (02/21/2025 3:55 AM EDT) Auto WBC 7.24 4.00 - 10.60 10*3/uL 02/21/2025 4:31 AM EDT [facility] ([facility]) RBC 4.97 4.20 - 5.70 10*6/uL 02/21/2025 4:31 AM EDT [facility] ([facility]) Hemoglobin 15.4 13.0 - 17.0 g/dL 02/21/2025 4:31 AM EDT [facility] ([facility]) Hematocrit 44.4 39.0 - 50.0 % 02/21/2025 4:31 AM EDT [facility] ([facility]) MCV 89.3 82.0 - 98.0 fL 02/21/2025 4:31 AM EDT [facility] ([facility]) MCH 31.0 27.0 - 33.0 pg 02/21/2025 4:31 AM EDT [facility] ([facility]) MCHC 34.7 32.0 - 35.0 g/dL 02/21/2025 4:31 AM EDT [facility] ([facility]) RDW 15.2(H) 11.5 - 15.0 % 02/21/2025 4:31 AM EDT [facility] ([facility]) Platelets 177 150 - 400 10*3/uL 02/21/2025 4:31 AM EDT [facility] ([facility]) Blood Venous blood specimen / Unknown Venipuncture / Unknown 02/21/2025 3:55 AM EDT 02/21/2025 4:08 AM EDT us Carol Carter [facility] LAB BLOOD ORDERABLES Final Resu lt [facility] ([facility]) [address] [place] [address] * Basic metabolic panel (02/21/2025 3:55 AM EDT) Sodium 139 136 - 145 mmol/L 02/21/2025 4:37 AM EDT [facility] ([facility]) Potassium 4.0 3.5 - 5.1 mmol/L 02/21/2025 4:37 AM EDT [facility] ([facility]) Chloride 104 98 - 107 mmol/L 02/21/2025 4:37 AM EDT [facility] ([facility]) CO2 26 21 - 31 mmol/L 02/21/2025 4:37 AM EDT [facility] ([facility]) BUN 16 7 - 25 mg/dL 02/21/2025 4:37 AM EDT [facility] ([facility]) Creatinine 0.99 0.70 - 1.30 mg/dL 02/21/2025 4:37 AM EDT [facility] ([facility]) Glucose 86 70 - 100 mg/dL 02/21/2025 4:37 AM EDT [facility] ([facility]) Calcium 8.9 8.6 - 10.3 mg/dL 02/21/2025 4:37 AM EDT [facility] ([facility]) Anion Gap 13 7 - 20 mmol/L 02/21/2025 4:37 AM EDT [facility] ([facility]) eGFR 88.3 >60.0 mL/min/1. 73m*2 02/21/2025 4:37 AM EDT [facility] ([facility]) Comment:[facility] s estimated glomerular filtration rate (eGFR) will [...] BUN/Creatinine Ratio 16.2 01/30 4:37 AM EDT [facility] ([facility]) Blood Venous blood specimen / Unknown Venipuncture / Unknown 02/21/2025 3:55 AM EDT 02/21/2025 4:08 AM EDT Kamran Del Valle MD LAB BLOOD ORDERABLES Final Resul t [facility] ([facility]) [address] [place] [address] * Anti-Xa (Heparin Level) (02/20/2025 11:40 PM EDT) Anti-Xa (Heparin) 0.55 0.3 - 0.7 IU/mL 02/21/2025 12:39 AM EDT [facility] ([facility]) Comment:Rivaroxaban and Apix aban will interfere with the anti Xa assay used to monitor UFH and LMWH. Blood Venous blood specimen / Unknown Venipuncture / Unknown 02/20/2025 11:40 PM EDT 02/21/2025 12:18 AM EDT Kamran Del Valle MD LAB BLOOD ORDERABLES Final Resul t [facility] ([facility]) [address] [place] [address] * Anti-Xa (Heparin Level) (02/20/2025 5:38 PM EDT) Anti-Xa (Heparin) 0.61 0.3 - 0.7 IU/mL 02/20/2025 6:08 PM EDT [facility] ([facility]) Comment:Rivaroxaban and Apix aban will interfere with the anti Xa assay used to monitor UFH and LMWH. Blood Venous blood specimen / Unknown Venipuncture / Unknown 02/20/2025 5:38 PM EDT 02/20/2025 5:42 PM EDT Kamran Del Valle MD LAB BLOOD ORDERABLES Final Resul t Performing Organization Address [facility]/ZIP Co de Phone Number [facility] [facility] [address] [place] [phone] * (ABNORMAL) Anti-Xa (Heparin Level) (02/20/2025 9:39 AM EDT) [facility] Anti-Xa (Heparin) 0.84(H) 0.3 - 0.7 IU/mL 02/20/2025 10:07 AM EDT [facility] ([facility]) Comment:Rivaroxaban and Apix aban will interfere with the anti Xa assay used to monitor UFH and LMWH. Blood Venous blood specimen / Unknown Venipuncture / Unknown 02/20/2025 9:39 AM EDT 02/20/2025 9:45 AM EDT Kamran Del Valle MD LAB BLOOD ORDERABLES Final Resul t Performing Organization Address City/[facility] Co de Phone Number [facility] ([facility]) [address] [place] [address] * (ABNORMAL) APTT (02/20/2025 9:39 AM EDT) aPTT 169.6(HH) 25.0 - 35.0 Seconds 02/20/2025 10:13 AM EDT [facility] ([facility]) Comment:Clinical significanc e of the APTT is questionable in the presence of heparin. Blood Venous blood specimen / Unknown Venipuncture / Unknown 02/20/2025 9:39 AM EDT 02/20/2025 9:45 AM EDT us Kamran Del Valle MD LAB BLOOD ORDERABLES Final Resul t [facility] ([facility]) [address] [place] [address] * Hemoglobin and hematocrit, blood (02/20/2025 4:16 AM EDT) Hemoglobin 14.8 13.0 - 17.0 g/dL 02/20/2025 9:28 AM EDT [facility] ([facility]) Hematocrit 42.9 39.0 - 50.0 % 02/20/2025 9:28 AM EDT [facility] ([facility]) Blood Venous blood specimen / Unknown Venipuncture / Unknown 02/20/2025 4:16 AM EDT 02/20/2025 9:20 AM EDT us Kamran Del Valle MD LAB BLOOD ORDERABLES Final Resul t Performing Organization Address City/[facility]/ZIP Co de Phone Number [facility] ([facility]) [address] [place] [phone] * (ABNORMAL) Basic metabolic panel (02/20/2025 4:16 AM EDT) Sodium 140 136 - 145 mmol/L 02/20/2025 9:43 AM EDT [facility] ([facility]) Potassium 3.8 3.5 - 5.1 mmol/L 02/20/2025 9:43 AM EDT [facility] ([facility]) Chloride 105 98 - 107 mmol/L 02/20/2025 9:43 AM EDT [facility] ([facility]) CO2 25 21 - 31 mmol/L 02/20/2025 9:43 AM EDT [facility] ([facility]) BUN 16 7 - 25 mg/dL 02/20/2025 9:43 AM EDT [facility] ([facility]) Creatinine 0.99 0.70 - 1.30 mg/dL 02/20/2025 9:43 AM EDT [facility] ([facility]) Glucose 59(L) 70 - 100 mg/dL 02/20/2025 9:43 AM EDT [facility] ([facility]) Calcium 8.7 8.6 - 10.3 mg/dL 02/20/2025 9:43 AM EDT [facility] ([facility]) Anion Gap 14 7 - 20 mmol/L 02/20/2025 9:43 AM EDT [facility] ([facility]) eGFR 88.3 >60.0 mL/min/1. 73m*2 02/20/2025 9:43 AM EDT [facility] ([facility]) Comment:[facility] s estimated glomerular filtration rate (eGFR) will [...] BUN/Creatinine Ratio 16.2 01/30 9:43 AM EDT [facility] ([facility]) Blood Venous blood specimen / Unknown Venipuncture / Unknown 02/20/2025 4:16 AM EDT 02/20/2025 9:20 AM EDT us Kamran Del Valle MD LAB BLOOD ORDERABLES Final Resul t [facility] ([facility]) [address] [place] [address] * (ABNORMAL) High Sensitivity Troponin I (02/19/2025 6:03 PM EDT) High Sensitivity Troponin I 30(H) <20 ng/L 02/19/2025 7:09 PM EDT [facility] ([facility]) Blood Venous blood specimen / Unknown Venipuncture / Unknown 02/19/2025 6:03 PM EDT 02/19/2025 6:41 PM EDT us Gabriele Nick MD LAB BLOOD ORDERABLES Final Resul t [facility] ([facility]) [address] [place] [address] * (ABNORMAL) High Sensitivity Troponin I (02/19/2025 11:06 AM EDT) Pathologist [facility] High Sensitivity Troponin I 29(H) <20 ng/L 02/19/2025 12:11 PM EDT [facility] ([facility]) Blood Venous blood specimen / Unknown Venipuncture / Unknown 02/19/2025 11:06 AM EDT 02/19/2025 11:41 AM EDT us Gabriele Nick MD LAB BLOOD ORDERABLES Final Resul t Performing Organization Address City/[facility]/ZIP Co de Phone Number [facility] ([facility]) [address] [place] [address] * ECG 12 lead (02/19/2025 9:30 AM EDT) Pathologist [facility] Ventricular Rate 104 BPM GE MUSE QRS DURATION 182 ms GE MUSE QT Interval 334 ms GE MUSE QTC CALCULATION(BAZE TT) 439 ms GE MUSE R-Edcouch -41 degrees GE MUSE T Wave Edcouch 144 degrees GE MUSE 02/19/2025 9:22 AM EDT 02/19/2025 9:31 AM EDT Impressions GE MUSE - 02/19/2025 9:31 AM EDT Atrial fibrillation with rapid ventricular response Left axis deviation Left bundle branch block Abnormal ECG When compared with ECG of 18-FEB-2025 19:10, No significant change was found Confirmed by MD ROSENBERG EHAB ([id number]) on 02/19/2025 9:31:28 AM Narrative Procedure Note Megan Rosenberg MD - 02/19/2025 IMPRESSION: Atrial fibrillation with rapid ventricular response Left axis deviation Left bundle branch block Abnormal ECG When compared with ECG of 18-FEB-2025 19:10, No significant change was found Confirmed by MD KULDEEP, EHAB ([id number]) on 02/19/2025 9:31:28 AM Dylan Matthew MD ECG ORDERABLES Final Resu lt Performing Organization Address City/[facility]/ZIP Co de Phone Number GE M[facility] * (ABNORMAL) APTT (02/19/2025 8:19 AM EDT) aPTT 154.5(HH) 25.0 - 35.0 Seconds 02/19/2025 9:00 AM EDT [facility] ([facility]) Comment:Clinical significanc e of the APTT is questionable in the presence of heparin. Blood Venous blood specimen / Unknown Venipuncture / Unknown 02/19/2025 8:19 AM EDT 02/19/2025 8:19 AM EDT Gabriele Nick MD LAB BLOOD ORDERABLES Final Resul t Performing Organization Address [facility] de Phone Number [facility] ([facility]) [address] [place] [address] * Anti-Xa (Heparin Level) (02/19/2025 8:19 AM EDT) Anti-Xa (Heparin) 0.54 0.3 - 0.7 IU/mL 02/19/2025 8:41 AM EDT [facility] ([facility]) Comment:Rivaroxaban and Apix aban will interfere with the anti Xa assay used to monitor UFH and LMWH. Blood Venous blood specimen / Unknown Venipuncture / Unknown 02/19/2025 8:19 AM EDT 02/19/2025 8:19 AM EDT Gabriele Nick MD LAB BLOOD ORDERABLES Final Resul t Performing Organization Address [facility] Co de Phone Number [facility] ([facility]) [address] [place] [address] * Magnesium (02/19/2025 4:18 AM EDT) [facility] Magnesium 1.9 1.9 - 2.7 mg/dL 02/19/2025 8:28 AM EDT [facility]) Blood Venous blood specimen / Unknown Venipuncture / Unknown 02/19/2025 4:18 AM EDT 02/19/2025 5:28 AM EDT Kamran Del Valle MD LAB BLOOD ORDERABLES Final Resul t [facility]) [address] [place], [place] [id number] * (ABNORMAL) High Sensitivity Troponin I (02/19/2025 4:18 AM EDT) [facility] High Sensitivity Troponin I 30(H) <20 ng/L 02/19/2025 6:17 AM EDT [facility]) Blood Venous blood specimen / Unknown Venipuncture / Unknown 02/19/2025 4:18 AM EDT 02/19/2025 5:28 AM EDT Gabriele Nick MD LAB BLOOD ORDERABLES Final Resul t [facility]) [address] [place] [address] * CBC (02/19/2025 4:18 AM EDT) [facility] Auto WBC 5.92 4.00 - 10.60 10*3/uL 02/19/2025 5:45 AM EDT [facility]) RBC 4.45 4.20 - 5.70 10*6/uL 02/19/2025 5:45 AM EDT [facility]) Hemoglobin 13.9 13.0 - 17.0 g/dL 02/19/2025 5:45 AM EDT [facility]) Hematocrit 40.9 39.0 - 50.0 % 02/19/2025 5:45 AM EDT [facility] ([facility]) MCV 91.9 82.0 - 98.0 fL 02/19/2025 5:45 AM EDT [facility] ([facility]) MCH 31.2 27.0 - 33.0 pg 02/19/2025 5:45 AM EDT [facility] ([facility]) MCHC 34.0 32.0 - 35.0 g/dL 02/19/2025 5:45 AM EDT [facility] ([facility]) RDW 15.0 11.5 - 15.0 % 02/19/2025 5:45 AM EDT [facility] ([facility]) Platelets 165 150 - 400 10*3/uL 02/19/2025 5:45 AM EDT [facility] ([facility]) Blood Venous blood specimen / Unknown Venipuncture / Unknown 02/19/2025 4:18 AM EDT 02/19/2025 5:28 AM EDT Carol Carter [facility] LAB BLOOD ORDERABLES Final Resu lt [facility] ([facility]) [address] [place] [address] * (ABNORMAL) Basic metabolic panel (02/19/2025 4:18 AM EDT) Sodium 141 136 - 145 mmol/L 02/19/2025 6:17 AM EDT [facility] ([facility]) Potassium 3.8 3.5 - 5.1 mmol/L 02/19/2025 6:17 AM EDT [facility] ([facility]) Chloride 108(H) 98 - 107 mmol/L 02/19/2025 6:17 AM EDT [facility] ([facility]) CO2 25 21 - 31 mmol/L 02/19/2025 6:17 AM EDT [facility] ([facility]) BUN 19 7 - 25 mg/dL 02/19/2025 6:17 AM EDT [facility] ([facility]) Creatinine 1.07 0.70 - 1.30 mg/dL 02/19/2025 6:17 AM EDT [facility] ([facility]) Glucose 75 70 - 100 mg/dL 02/19/2025 6:17 AM EDT [facility] ([facility]) Calcium 8.3(L) 8.6 - 10.3 mg/dL 02/19/2025 6:17 AM EDT [facility] ([facility]) Anion Gap 12 7 - 20 mmol/L 02/19/2025 6:17 AM EDT [facility] ([facility]) eGFR 80.4 >60.0 mL/min/1. 73m*2 02/19/2025 6:17 AM EDT [facility] ([facility]) Comment:[facility] s estimated glomerular filtration rate (eGFR) will [...] BUN/Creatinine Ratio 17.8 01/30 6:17 AM EDT [facility] ([facility]) Blood Venous blood specimen / Unknown Venipuncture / Unknown 02/19/2025 4:18 AM EDT 02/19/2025 5:28 AM EDT Carol Carter [facility] LAB BLOOD ORDERABLES Final Resu lt [facility] ([facility]) [address] [place], [place] [id number] * Lavender Top (02/19/2025 1:25 AM EDT) Extra Tube Hold for add-ons. 02/19/2025 3:01 AM EDT [facility] ([facility]) Comment:Auto resulted. Blood Venous blood specimen / Unknown Venipuncture / Unknown 02/19/2025 1:25 AM EDT 02/19/2025 1:45 AM EDT Gabriele Nick MD LAB BLOOD ORDERABLES Final Resul t Performing Organization Address City/[facility]/ZIP Co de Phone Number [facility]) [address] [place] [phone] * (ABNORMAL) High Sensitivity Troponin I (02/19/2025 1:25 AM EDT) High Sensitivity Troponin I 27(H) <20 ng/L 02/19/2025 2:16 AM EDT [facility] ([facility]) Blood Venous blood specimen / Unknown Venipuncture / Unknown 02/19/2025 1:25 AM EDT 02/19/2025 1:45 AM EDT Carol Carter CNP LAB BLOOD ORDERABLES Final Resu lt Performing Organization Address [facility] Co de Phone Number [facility]) [address] [place] [address] * (ABNORMAL) aPTT (02/19/2025 1:25 AM EDT) Pathologist [facility] aPTT 84.7(H) 25.0 - 35.0 Seconds 02/19/2025 2:10 AM EDT [facility]) Comment:Clinical significanc e of the APTT is questionable in the presence of heparin. Blood Venous blood specimen / Unknown Venipuncture / Unknown 02/19/2025 1:25 AM EDT 02/19/2025 1:40 AM EDT Gabriele Nick MD LAB BLOOD ORDERABLES Final Resul t Performing Organization Address City/[facility]/ZIP Co de Phone Number [facility]) [address] [place] [phone] * Anti-Xa (Heparin Level) (02/19/2025 1:25 AM EDT) Anti-Xa (Heparin) 0.41 0.3 - 0.7 IU/mL 02/19/2025 2:10 AM EDT [facility] ([facility]) Comment:Rivaroxaban and Apix aban will interfere with the anti Xa assay used to monitor UFH and LMWH. Blood Venous blood specimen / Unknown Venipuncture / Unknown 02/19/2025 1:25 AM EDT 02/19/2025 1:40 AM EDT Gabriele Nick MD LAB BLOOD ORDERABLES Final Resul t [facility] ([facility]) [address] [place] [address] * ECG 12 lead (02/18/2025 7:30 PM EDT) Ventricular Rate 133 BPM GE MUSE QRS DURATION 170 ms GE MUSE QT Interval 314 ms GE MUSE QTC CALCULATION(BAZE TT) 467 ms GE MUSE R-Edcouch -47 degrees GE MUSE T Wave Edcouch 150 degrees GE MUSE 02/18/2025 7:10 PM EDT 02/19/2025 8:53 AM EDT Impressions GE MUSE - 02/19/2025 8:53 AM EDT Atrial fibrillation with rapid ventricular response Left axis deviation Left bundle branch block Abnormal ECG No previous ECGs available Confirmed by MD ROSENBERG EHAB ([id number]) on 02/19/2025 8:53:08 AM Narrative Procedure Note Megan Rosenberg MD - 02/19/2025 IMPRESSION: Atrial fibrillation with rapid ventricular response Left axis deviation Left bundle branch block Abnormal ECG No previous ECGs available Confirmed by MD ROSENBERG EHAB ([id number]) on 02/19/2025 8:53:08 AM Carol Carter CNP ECG ORDERABLES Final Result Performing Organization Address City/[facility]/ZIP Co de Phone Number GE MUSE * (ABNORMAL) Anti-Xa (Heparin Level) (02/18/2025 6:46 PM EDT) Anti-Xa (Heparin) <0.10(LL) 0.3 - 0.7 IU/mL 02/18/2025 8:14 PM EDT [facility] ([facility]) Comment:Rivaroxaban and Apix aban will interfere with the anti Xa assay used to monitor UFH and LMWH. Blood Venous blood specimen / Unknown Venipuncture / Unknown 02/18/2025 6:46 PM EDT 02/18/2025 7:24 PM EDT [facility] LAB BLOOD ORDERABLES Final Resu lt Performing Organization Address [facility]/ZIP Co de Phone Number [facility]) [address] [place] [address] * aPTT - baseline (02/18/2025 6:46 PM EDT) aPTT 32.7 25.0 - 35.0 Seconds 02/18/2025 7:57 PM EDT [facility] ([facility]) Comment:Clinical significanc e of the APTT is questionable in the presence of heparin. Blood Venous blood specimen / Unknown Venipuncture / Unknown 02/18/2025 6:46 PM EDT 02/18/2025 7:24 PM EDT [facility] LAB BLOOD ORDERABLES Final Resu lt Performing Organization Address [facility] Co de Phone Number [facility]) [address] [place] [address] * (ABNORMAL) CBC auto differential (02/18/2025 6:46 PM EDT) Auto WBC 7.49 4.00 - 10.60 10*3/uL 02/18/2025 7:34 PM EDT [facility]) RBC 4.57 4.20 - 5.70 10*6/uL 02/18/2025 7:34 PM EDT [facility] ([facility]) Hemoglobin 14.4 13.0 - 17.0 g/dL 02/18/2025 7:34 PM EDT [facility] ([facility]) Hematocrit 41.7 39.0 - 50.0 % 02/18/2025 7:34 PM EDT [facility] ([facility]) MCV 91.2 82.0 - 98.0 fL 02/18/2025 7:34 PM EDT [facility] ([facility]) MCH 31.5 27.0 - 33.0 pg 02/18/2025 7:34 PM EDT [facility] ([facility]) MCHC 34.5 32.0 - 35.0 g/dL 02/18/2025 7:34 PM EDT [facility] ([facility]) RDW 15.1(H) 11.5 - 15.0 % 02/18/2025 7:34 PM EDT [facility] ([facility]) Neutrophils % 69.5 40.0 - 72.0 % 02/18/2025 7:34 PM EDT [facility] ([facility]) Lymphocytes % 20.2 20.0 - 45.0 % 02/18/2025 7:34 PM EDT [facility] ([facility]) Monocytes % 8.5 5.0 - 12.0 % 02/18/2025 7:34 PM EDT [facility] ([facility]) Eosinophils % 1.1 0.0 - 6.0 % 02/18/2025 7:34 PM EDT [facility] ([facility]) Basophils % 0.3 0.0 - 1.0 % 02/18/2025 7:34 PM EDT [facility] ([facility]) Neutrophils Absolute 5.21 1.60 - 7.60 10*3/uL 02/18/2025 7:34 PM EDT [facility] ([facility]) Lymphocytes Absolute 1.51 1.20 - 4.00 10*3/uL 02/18/2025 7:34 PM EDT [facility] ([facility]) Monocytes Absolute 0.64 0.10 - 1.00 10*3/uL 02/18/2025 7:34 PM EDT [facility] ([facility]) Eosinophils Absolute 0.08 0.00 - 0.50 10*3/uL 02/18/2025 7:34 PM EDT [facility] ([facility]) Basophils Absolute 0.02 0.00 - 0.20 10*3/uL 02/18/2025 7:34 PM EDT [facility] ([facility]) Platelets 195 150 - 400 10*3/uL 02/18/2025 7:34 PM EDT [facility] ([facility]) nRBC % 0.0 0 % 02/18/2025 7:34 PM EDT [facility] ([facility]) Immature Granulocytes % 0.4 0.0 - 1.0 % 02/18/2025 7:34 PM EDT [facility] ([facility]) Immature Granulocytes Absolute 0.03 0.00 - 0.20 10*3/uL 02/18/2025 7:34 PM EDT [facility] ([facility]) Blood Venous blood specimen / Unknown Venipuncture / Unknown 02/18/2025 6:46 PM EDT 02/18/2025 7:25 PM EDT [facility] LAB BLOOD ORDERABLES Final Resu lt Performing Organization Address City/[facility]/ZIP Co de Phone Number [facility]) [address] [place] [address] * TSH3 Reflex to FT4 (02/18/2025 6:46 PM EDT) Pathologist [facility] TSH 3.22 0.34 - 5.60 mIU/L 02/18/2025 8:07 PM EDT [facility]) Blood Venous blood specimen / Unknown Venipuncture / Unknown 02/18/2025 6:46 PM EDT 02/18/2025 7:26 PM EDT [facility] LAB BLOOD ORDERABLES Final Resu lt [facility]) [address] [place] [address] * (ABNORMAL) B-type natriuretic peptide (02/18/2025 6:46 PM EDT) BNP 491(H) 0 - 100 pg/mL 02/18/2025 7:56 PM EDT [facility]) Blood Venous blood specimen / Unknown Venipuncture / Unknown 02/18/2025 6:46 PM EDT 02/18/2025 7:26 PM EDT Carol Carter [facility] LAB BLOOD ORDERABLES Final Resu lt [facility] ([facility]) [address] [place] [address] * (ABNORMAL) Protime-INR (02/18/2025 6:46 PM EDT) Protime 17.9(H) 12.3 - 14.8 Seconds 02/18/2025 7:57 PM EDT [facility] [place]) INR 1.47(H) 0.90 - 1.10 02/18/2025 7:57 PM EDT [facility] ([facility]) Comment: [facility] RECOMMENDED INR FOR WARFARIN THERAPY [...] 6:46 PM EDT 02/18/2025 7:24 PM EDT us Carol Pirkl [employer] LAB BLOOD ORDERABLES Final Resu lt [facility]) [address] [place] [address] * (ABNORMAL) HIGH SENSITIVITY TROPONIN I (02/18/2025 6:46 PM EDT) High Sensitivity Troponin I 27(H) <20 ng/L 02/18/2025 8:07 PM EDT [facility] ([facility]) Blood Venous blood specimen / Unknown Venipuncture / Unknown 02/18/2025 6:46 PM EDT 02/18/2025 7:26 PM EDT [facility] LAB BLOOD ORDERABLES Final Resu lt Performing Organization Address City/[facility]/ZIP Co de Phone Number [facility]) [address] [place], [place] [id number] * Phosphorus (02/18/2025 6:46 PM EDT) Phosphorus 2.7 2.5 - 5.0 mg/dL 02/18/2025 8:07 PM EDT [facility] ([facility]) Blood Venous blood specimen / Unknown Venipuncture / Unknown 02/18/2025 6:46 PM EDT 02/18/2025 7:26 PM EDT [facility] LAB BLOOD ORDERABLES Final Resu lt [facility]) [address] [place], [place] [id number] * Magnesium (02/18/2025 6:46 PM EDT) Magnesium 2.1 1.9 - 2.7 mg/dL 02/18/2025 8:07 PM EDT [facility]) Blood Venous blood specimen / Unknown Venipuncture / Unknown 02/18/2025 6:46 PM EDT 02/18/2025 7:26 PM EDT [employer] [facility] LAB BLOOD ORDERABLES Final Resu lt [facility] ([facility]) [address] [place], [place] [id number] * Lactic acid, plasma (02/18/2025 6:46 PM EDT) Lactate 1.1 0.5 - 2.2 mmol/L 02/18/2025 7:46 PM EDT [facility] ([facility]) Blood Venous blood specimen / Unknown Venipuncture / Unknown 02/18/2025 6:46 PM EDT 02/18/2025 7:24 PM EDT [facility] LAB BLOOD ORDERABLES Final Resu lt Performing Organization Address City/[facility]/ZIP Co de Phone Number [facility] ([facility]) [address] [place] [address] * (ABNORMAL) Comprehensive metabolic panel (02/18/2025 6:46 PM EDT) Sodium 136 136 - 145 mmol/L 02/18/2025 8:07 PM EDT [facility] ([facility]) Potassium 4.0 3.5 - 5.1 mmol/L 02/18/2025 8:07 PM EDT [facility] ([facility]) Chloride 108(H) 98 - 107 mmol/L 02/18/2025 8:07 PM EDT [facility] ([facility]) CO2 21 21 - 31 mmol/L 02/18/2025 8:07 PM EDT [facility] ([facility]) Anion Gap 11 7 - 20 mmol/L 02/18/2025 8:07 PM EDT [facility] ([facility]) BUN 21 7 - 25 mg/dL 02/18/2025 8:07 PM EDT [facility] ([facility]) Creatinine 1.02 0.70 - 1.30 mg/dL 02/18/2025 8:07 PM [facility] ([facility]) BUN/Creatinine Ratio 20.6 01/30 8:07 PM [facility] ([facility]) Glucose 88 70 - 100 mg/dL 02/18/2025 8:07 PM [facility] ([facility]) Calcium 8.5(L) 8.6 - 10.3 mg/dL 02/18/2025 8:07 PM [facility] ([facility]) AST 19 13 - 39 U/L 02/18/2025 8:07 PM [facility] ([facility]) ALT (SGPT) 30 7 - 52 U/L 02/18/2025 8:07 PM [facility] ([facility]) Alkaline Phosphatase 58 34 - 104 U/L 02/18/2025 8:07 PM [facility] ([facility]) Total Protein 5.5(L) 6.0 - 8.3 g/dL 02/18/2025 8:07 PM [facility] ([facility]) Albumin 3.6 3.5 - 5.7 g/dL 02/18/2025 8:07 PM [facility] ([facility]) Total Bilirubin 3.6(H) 0.3 - 1.0 mg/dL 02/18/2025 8:07 PM [facility] ([facility]) eGFR 85.2 >60.0 mL/min/1. 73m*2 02/18/2025 8:07 PM [facility] ([facility]) Comment:The [facility] s estimated glomerular filtration rate (eGFR) will [...] 6:46 PM EDT 02/18/2025 7:26 PM EDT us Carol Carter DIRECTOR [employer] LAB BLOOD ORDERABLES Final Resu lt [facility] [[email or web address] ([place]) [address] [place] [address] documented in this encounter Visit Diagnoses Diagnosis Acute systolic CHF (congestive heart failure) (CMS/HCC)- Primary Acute systolic CHF (congestive heart failure) ([facility]/HCC) Chronic HFrEF (heart failure with reduced ejection fraction) (CMS/[facility]) Paroxysmal atrial fibrillation (CMS/HCC) Atrial fibrillation A-fib ([facility]) Atrial fibrillation Atrial fibrillation, unspecified type (CMS/[facility]) Angina pectoris, unstable (CMS/HCC) Intermediate coronary syndrome Edema, unspecified type S/P gastric bypass Bariatric surgery status Benign prostatic hyperplasia, unspecified whether lower urinary tract symptoms present New onset a-fib ([facility]) Atrial fibrillation Primary hypertension Unspecified essential hypertension ENA (obstructive sleep apnea) Obstructive sleep apnea (adult) (pediatric) S/P gastric bypass Bariatric surgery status Pericardial effusion Unspecified disease of pericardium Moderate mitral valve regurgitation Atrial fibrillation with RVR (CMS/HCC) A-fib ([facility]/HCC) Atrial fibrillation Hematoma Contusion of unspecified site Paroxysmal atrial fibrillation ([facility]) Atrial fibrillation documented in this encounter Admitting Diagnoses Diagnosis Acute systolic CHF (congestive heart failure) (CMS/HCC) A-fib ([facility]) Atrial fibrillation Angina pectoris, unstable ([facility]) Intermediate coronary syndrome documented in this encounter [...] Given 02/20/2025 11:11 PM EDT 650 mg apixaban (Eliquis) tablet 5 mg 5 mg, oral, 2 times daily, First dose on Raquel 03/04/25 at 2200, For 99 days, Apixaban indication: Non-valvular Atrial Fibrillation Given 03/05/2025 9:46 AM EDT 5 mg Given 03/04/2025 10:03 PM EDT 5 mg bisacodyl (Dulcolax) EC tablet 5 mg 5 mg, oral, Daily, First dose on Sat02/26/25 at 1145, For 99 days, Do not give within 1 hour of antacids, milk, or dairy products. Do not crush, chew, or split. Given 03/05/2025 9:46 AM EDT 5 mg Given 03/04/2025 10:32 AM EDT 5 mg Given 03/03/2025 1:46 PM EDT 5 mg diphenhydrAMINE (BENADryl) capsule 25 mg 25 mg, oral, Every 8 hours PRN, nausea, Starting on Sat02/23/25 at 0413, For 99 days Given 02/25/2025 1:49 AM EDT 25 mg Given 02/24/2025 9:01 AM EDT 25 mg Given 02/23/2025 9:00 PM EDT 25 mg fentaNYL (Sublimaze) injection As needed, Starting on Sat03/03/25 at 0941, Intraprocedure Given 03/03/2025 9:56 AM EDT 25 mcg Given 03/03/2025 9:43 AM EDT 25 mcg Given 03/03/2025 9:41 AM EDT 25 mcg ferrous sulfate tablet 325 mg 325 mg, oral, Daily with breakfast, First dose on Sat02/27/25 at 0800, For 99 days Given 03/05/2025 8:00 AM EDT 325 mg Given 03/04/2025 10:32 AM EDT 325 mg Given 03/03/2025 1:46 PM EDT 325 mg furosemide (Lasix) tablet 60 mg 60 mg, oral, Daily, First dose on Sat03/04/25 at 1200, For 99 days Given 03/05/2025 9:46 AM EDT 60 mg Given 03/04/2025 12:18 PM EDT 60 mg HYDROcodone-acetaminophen ([place]) 5-325 mg per tablet 1 tablet 1 [...] Given 02/22/2025 12:36 PM EDT 0.2 mg lidocaine (Xylocaine) 2 % mouth solution As needed, Starting on Sat03/03/25 at 0930, Intraprocedure Given 03/03/2025 9:30 AM EDT 15 mL melatonin tablet 5 mg 5 mg, oral, Nightly PRN, sleep, Starting on Sat02/18/25 at 1855, For 99 days metoprolol succinate XL (Toprol-XL) 24 hr tablet 75 mg 75 mg, oral, Daily, First dose (after last modification) on Sat03/04/25 at 1000, For 98 doses, Do not crush or chew. Given 03/05/2025 9:46 AM EDT 75 mg Given 03/04/2025 10:32 AM EDT 75 mg midazolam (Versed) injection As needed, Starting on Sat03/03/25 at 0941, Intraprocedure Given 03/03/2025 9:56 AM EDT 2 mg Given 03/03/2025 9:43 AM EDT 2 mg Given 03/03/2025 9:41 AM EDT 2 mg sennosides-docusate sodium (Gertrude-Colace) 8.6-50 mg per tablet 1 tablet 1 tablet, oral, Nightly, First dose (after last modification) on Sat03/02/25 at 2200 Given 03/04/2025 10:03 PM EDT 1 tablet Given 03/03/2025 9:58 PM EDT 1 tablet Given 03/02/2025 9:01 PM EDT 1 tablet sodium chloride 0.9 % infusion Continuous PRN, Starting on Sat03/03/25 at 0920, Intraprocedure New Bag 03/03/2025 9:20 AM EDT 50 mL/hr 50 mL/hr sodium chloride flush 10 mL 10 mL, intravenous, Every 8 hours PRN, line care, Starting on Sat02/18/25 at 1855, For 99 days sodium chloride irrigation solution 0.9 % 3,000 mL 3,000 mL, irrigation, Continuous, Starting on 02/23/25 at 1815, Please maintain continuous bladder irrigation running. Please business support manager 2 3L bags of normal saline. Titrate [...] on 03/06/25 at 1000, For 84 doses tamsulosin (Flomax) 24 hr capsule 0.4 mg [...] Given 03/03/2025 1:45 PM EDT 20 mg documented in this encounter Active and Recently Administered Medications Times are shown in EDT. Scheduled Medication Order 03/03/2025 03/04/2025 03/05/2025 apixaban (Eliquis) tablet 5 mg 5 mg, oral, 2 times daily, First dose on Raquel 03/04/25 at 2200, For 99 days, Apixaban indication: Non-valvular Atrial Fibrillation 2202 (Given - Provider: Yesenia Breen RN) 0946 (Given - Provider: Jenny Ramachandran RN) aspirin EC tablet 81 mg (CANCELED) 81 mg, oral, Daily, First dose on Sat03/03/25 at 1800, For 99 days, Do not crush, chew, or split. 184 (Given - Provider: Ayde Hamm RN) 1031 [...] Hollis RN) 0800 (Given - Provider: Jenny Ramachandran RN) furosemide (Lasix) tablet 60 mg 60 mg, oral, Daily, First dose on Sat03/04/25 at 1200, For 99 days 1218 (Given - Provider: Apryl Hollis RN) 0946 (Given - Provider: Jenny Ramachandran RN) iohexol (OMNIPaque) 350 mg iodine/mL injection 100 mL (COMPLETED) 100 mL, intravenous, Once in imaging, Starting on Sat03/04/25 at 1530, For 1 dose 1530 (Given - Provider: [facility] metoprolol succinate XL (Toprol-XL) 24 hr tablet [...] or chew. 1032 (Given - Provider: Apryl Hollis, RN) 0946 (Given - Provider: Jenny Ramachandran, BARRON) sennosides-docusate sodium (Gertrude-Colace) 8.6-50 mg per tablet 1 tablet 1 tablet, oral, Nightly, First dose (after last modification) on Sat03/02/25 at 2200 2158 (Given - Provider: Yesenia Breen, RN) 2203 (Given - Provider: Yesenia Breen, RN) sodium chloride irrigation solution 0.9 % 3,000 mL 3,000 mL, irrigation, Continuous, Starting on Sat02/23/25 at 1815, Please maintain continuous bladder irrigation running. Please business support manager 2 3L bags of normal saline. Titrate [...] Solitario MD) 0946 (Given - Provider: Jenny Ramachandran RN) tamsulosin (Flomax) 24 hr capsule 0.4 mg 0.4 mg, oral, Daily, First dose on Sat02/24/25 at 1000, For 99 days, Do not crush, chew, or split. 1346 (Given - Provider: Ayde Hamm RN) 1032 (Given - Provider: Apryl Hollis, BARRON) 0946 (Given - Provider: Jenny Ramachandran, BARRON) valsartan (Diovan) tablet 20 mg 20 mg, oral, Daily, First dose on Sat03/03/25 at 1230, For 99 days 1345 (Given - Provider: Ayde Hamm RN) 1037 (Given - Provider: Apryl Hollis, RN) 0946 (Given - Provider: Jenny Ramachandran RN) Continuous Medication Order 03/03/2025 03/04/2025 03/05/2025 [...] (Given - Provider: Judy Vazquez RN) HYDROcodone-acetaminophen ([place]) 5-325 mg per tablet 1 tablet 1 [...] mg, oral, Nightly PRN, sleep, Starting on Raquel 02/18/25 at 1855, For 99 days metoprolol tartrate (Lopressor) tablet 25 mg (COMPLETED) 25 mg, oral, Once PRN Procedure, Prior to coronary CTA, Starting on Sat03/04/25 at 1004, For 1 dose 1218 (Given - Provider: Apryl Hollis RN) midazolam (Versed) injection (CANCELED) As needed, Starting on Sat03/03/25 at 0941, Intraprocedure 0941 (Given - Provider: Judy Vazquez RN)0943 (Given - Provider: Judy Vazquez, BARRON)0956 (Given - Provider: Judy Vazquez RN) nitroglycerin (Nitrostat) SL tablet (CANCELED) sublingual, As needed, Starting on Sat03/04/25 at 1511, Intraprocedure 1511 (Given - Provider: Bg Hameed, RN) sodium chloride 0.9 % infusion (COMPLETED) Continuous PRN, Starting on Sat03/03/25 at 0920, Intraprocedure 0920 (New Bag - Provider: Judy Vazquez, RN)1052 (Stopped - Provider: Ayde Hamm RN) sodium chloride flush 10 mL(Linked Group 1) 10 mL, intravenous, Every 8 hours PRN, line care, Starting on Raquel 02/18/25 at 1855, For 99 days Linked Groups Order Group 1: Insert peripheral IV (CANCELED) Once, On Raquel 02/18/25 at 1856, For 1 occurrence And Saline lock IV (CANCELED) Once, On Raquel 02/18/25 at 1856, For 1 occurrence And sodium chloride flush 10 mLJump to med 10 mL, intravenous, Every 8 hours PRN, line care, Starting on Raquel 02/18/25 at 1855, For 99 days documented in this encounter Care Teams Waiter/Waitress Second Class Relationship Specialty Start Date End Date Jalen Linder DO [address] [place] [address] PCP - General 05/03/22 documented as of this encounter
[2025-03-10] VITALS (13 sets, daily range): BP systolic 102–120; BP diastolic 64–73; PULSE 79–99; TEMP 36.9; O2SAT 96–100; BMI 35.0
--- OUTSIDE RECORDS SUMMARY | 2025-03-10 15:20 | XMS_ITS | Encounter Summary ---
[facility] Organization [facility] Address [address] [place] [address] Care Team Providers Care Flexible Nanny Name Role Phone Jalen Echeverria DO Primary Care Provider [phone] Reason for Referral * (Routine) - Pending Review Specialty Diagnoses / Procedures Referred By Contac t Referred To Contact Diagnoses Paroxysmal atrial fibrillation (CMS/HCC) Procedures ECG 12 lead unit performed Mary Rosales CNP [address] [place] [address] Phone: tel: fax: Referral ID Status Reason Start Date Expiration Date V isits Requested Visits Authorized [id number] Pending Review 03/10/2025 03/10/2026 1 1 * (Routine) - Pending Review Specialty Diagnoses / Procedures Referred By Santiago t Referred To Contact Diagnoses Paroxysmal atrial fibrillation (CMS/HCC) Procedures ECG 12 lead unit performed Mary Rosales CNP [address] [place] [address] Phone: tel: fax: Referral ID Status Reason Start Date Expiration Date V isits Requested Visits Authorized [id number] Pending Review 03/10/2025 03/10/2026 1 1 Reason for Visit * Reason Comments Follow-up S/p cardioversion Hypertension Congestive Heart Failure Pericardial effusion Ascending aorta dilatation Valve Disorder Atrial Fibrillation Angina pectoris unstable Obesity Sleep Apnea Encounter Details Date Type Department Care Team (Late st Contact Info) Description 03/10/2025 3:20 PM EDT Office Visit [facility] Heart at [facility] [address] [place] [address] Mary Rosales, [employer] [address] [place] [address] Paroxysmal atrial fibrillation (CMS/HCC) (Primary Dx); Acute systolic CHF (congestive heart failure) (CMS/HCC); Chronic systolic heart failure (CMS/HCC); Blood loss anemia; LVH (left ventricular hypertrophy); Coronary artery disease involving sioux coronary artery of sioux heart without angina pectoris; Benign hypertensive heart disease with heart failure (CMS/HCC); Orthostatic hypotension; Syncope and collapse Social History Tobacco Use Types Packs/Day Years Used Date Smoking Tobacco: Never Smokeless Tobacco: Never Alcohol Use Standard Drinks/Week Comments Yes 0 (1 standard drink = 0.6 oz pur e alcohol) occasional [facility] Utilities Answer Date Recorded In the past 12 months has e [employer] gas, oil, or water [employer] threatened to shut off services in your [...] any time in the past [address] [facility], were you homeless or living in a half-way (including now)? No 02/18/2025 Hunger Vital Sign [...] Sign Reading Time Taken Comments Blood Pressure 114/70 03/10/2025 3:21 PM EDT Pulse 88 03/10/2025 3:21 PM EDT Temperature - - Respiratory Rate - - Oxygen Saturation 94% 03/10/2025 3:21 PM EDT Inhaled Oxygen Concentration - - Weight 104 kg (230 lb) 03/10/2025 3:21 PM EDT Height 170.2 cm (5' 7 ) 03/10/2025 3:21 PM EDT Body Mass Index 36.02 03/10/2025 3:21 PM EDT documented in this encounter Patient Instructions * Patient Instructions* Mary Rosales CNP - 03/10/2025 3:20 PM EDT *Stop aspirin *Have lab work done in 2 weeks documented in this encounter Progress Notes * Mary Rosales CNP - 03/10/2025 3:20 PM EDT Images from the original note were not included. Cardiovascular Medicine [facility] SUBJECTIVE Chief Complaint Patient presents with Follow-up S/p cardioversion Hypertension Congestive Heart Failure Pericardial effusion Ascending aorta dilatation Valve Disorder Atrial Fibrillation Angina pectoris unstable Obesity Sleep Apnea Long Pinto is a 59 y.o. male here for follow-up after his recent admission to [facility] and transfer to [facility]. HPI 03/10/2025 He has been feeling better overall since his recent admission. He walked the grocery store Saturday and Saturday, felt like this took a lot out of him and he has beenmore tired today and yesterday. Denies c/o CP, dyspnea, orthopnea, PND, LE edema, dizziness/LH, palpitations, syncope. Denies any bleeding issues. Currently has a chavarria and he will be seeing urology next week. At the end of his visit, he was standing at the counter waiting for paperwork when he had a syncopal episode. His legs gave out and he hit his face on the counter. He came to when lowered to the ground. BP was 102/61, HR 75 when lowered to the ground. He notes that he was feeling lightheaded standing at the counter. Rapid response team was called, c-collar placed due to pt hitting his head and he was taken to the ER for further evaluation. Discharge Summary (02/18/2025 - 03/05/2025 ) Final Discharge Diagnosis: Heart failure with reduced ejection fraction 20% Admission Diagnosis: Acute systolic CHF (congestive heart failure) ([facility]) [I50.21] A-fib ([facility]) [I48.91] Hospital course: Long Pinto is an 59 y.o. male who came from home with past medical history of hypertension, severe LVH, ENA, obesity s/p gastric bypass presents as a direct mission for [facility] with newonset A-fib as well as new onset systolic CHF. Patient initially presenting to [place] with bloating and constipation. He states that [...] a small pericardial effusion. He was transferred [facility] for higher level of care. Patient [...] if blood pressure and kidney function allows. Problem List[1] Medical History[2] Family History[3] Social History[4] Allergies[5] OBJECTIVE Visit Vitals BP 114/70 (BP Location: Left arm, Patient Position: Sitting) Pulse 88 Ht 1.702 m (5' 7 ) Wt 104 kg (230 lb) SpO2 94% BMI 36.02 kg/m?? Smoking Status Never BSA 2.22 m?? Medications: Current Medications[6] Physical Exam Constitutional: Appearance: Normal appearance. He is obese. HENT: Head: Normocephalic and atraumatic. Right Ear: [...] Thought content normal. Judgment: Judgment normal. Labs: Lab Results Component Value Date BNP 491 (H) 02/18/2025 No results displayed because visit has over 200 results. Testing/Procedures: Encounter Date: 02/18/25 ECG 12 lead Result Value Ventricular Rate 78 Atrial Rate 78 TX Interval 206 QRS DURATION 182 QT Interval 432 QTC CALCULATION(BAZETT) 492 P Sultan 53 R-Sultan -31 T Wave Sultan 134 Impression Sinus rhythm with Premature supraventricular complexes Left axis deviation Left bundle branch block Abnormal ECG When compared with ECG of 03-MAR-2025 10:07, Premature supraventricular complexes are now Present Confirmed by Prabhu Chavez ([id number]) on 03/04/2025 5:11:38 PM Coronary CTA 03/04/2025 Left Main: The left main is a [...] less than 25% in the proximal RCA. IMPRESSION: 1. Abnormal coronary CTA with . [...] the distal left main and proximal LAD. BERNARDINO with cardioversion 03/03/2025 Left Ventricle: The left ventricle is normal size. Global left ventricular systolic function is severely reduced. The EF is 20 % visually. Left ventricular wall thickness is normal. Diffuse global hypokinesis. Right Ventricle: The right ventricle appears normal in size. Right ventricular systolic function appears normal. Left Atrium: The left atrium appears enlarged. Left Atrium Appendage: Normalleft atrial appendage, no thrombus seen. Pericardium: There is a minimal pericardial effusion with fibrinous content/thrombus close to transverse sinus Overall Conclusions: Biphasic cardioversion wasperformed at 360 J, the patient was converted to sinus rhythm 03/02/2025 TTE: EF 15% visually, calculated biplane EF is 24%. LV wall thickness at ULN. Diffuse global HK, consistent with eccentric hypertrophy. Reduced RV SF. Normal right sided pressures, severe LAE. RVSP 24 mmHg. Mild aortic dilation --ECHO 05/14/2023: EF 50-55%, NL RVSF. Normal diastolic function. Biatrial enlargement. Mild mitralregurg. Aortic root is mildly dilated. Trivial pericardial effusion is seen --ECHO 2018: Severe LVH, EF 40% ASSESSMENT/PLAN: Diagnoses and all orders for this visit: Paroxysmal atrial fibrillation (CMS/HCC) - ECG 12 lead unit performed - ECG 12 lead unit performed Acute systolic CHF (congestive heart failure) (CMS/HCC) - valsartan (Diovan) 40 mg tablet; Take 0.5 tablets (20 mg) by mouth in the morning for 96 doses. Chronic systolic heart failure (CMS/HCC) - Comprehensive metabolic panel; Future - CBC; Future Blood loss anemia - CBC; Future LVH (left ventricular hypertrophy) Coronary artery disease involving sioux coronary artery of sioux heart without angina pectoris Benign hypertensive heart disease with heart failure (CMS/HCC) Orthostatic hypotension Syncope and collapse #Chronic HFrEF, EF 20% -Newly found -Coronary CTA found mild CAD, therefore NICM, likely tachymediated in the setting of a.fib -NYHA II -He appears compensated on exam -Currently he is taking lasix 60mg daily. -GDMT: was planning to switch valsartan to Entresto but pt had syncopal episode at the end of visittherefore will hold off on medications due to suspected orthostatic hypotension. At this time continue valsartan, spironolactone, Toprol. -Will refer to cardiac rehab. #Paroxysmal A-fib with RVR, s/p BERNARDINO & CV 03/04/25 -[id number]-BBRd 2, started Eliquis on 03/04/2025 -EKG today shows sinus rhythm -continue Toprol -Denies bleeding issues -Continue Eliquis #Essential hypertension #LVH #Suspected orthostatic hypotension in light of syncopal event. -BP was normotensive during visit and BP was low after syncopal event at 102/61, likely has OH -Pt sent to ER for further evaluation due to hitting his head on counter and being on AC #Chronic left bundle branch block #CAD -- Coronary CTA performed 03/05/2025 showing mild CAD -Given no significant stenosis, already taking Eliquis, and recent rectal sheath hematoma, will stop ASA at this time -Continue Toprol -Will need to discuss initiating statin at next visit #Acute blood loss anemia # Spontaneous bilateral rectal sheath hematoma after starting AC, -- Transfused 1 unit PRBC, hemoglobin on day of discharge was at 8.1 -Follow-up labs ordered *Follow up with EP as scheduled to further discuss plans for a.fib management such as antiarrhythmics vs ablation. Follow up in about 2 weeks (around 03/24/2025). Mary Rosales CNP [facility] I spent 56 minutes of total time on the day of the visit. This time was spent preparing for the visit, obtaining and reviewing any outside history/data, taking a history, performing an exam/evaluation, counseling and educating the patient/family about the diagnosis and plan, performing medical decision making, referring to and communicating with other health care referrals, independently interpreting results and documenting in the EMR, and coordinating care. Please see the additional documentation in this note for specific details. [1] Patient Active Problem List Diagnosis Gout Primary hypertension Obesity ENA (obstructive sleep apnea) Ascending aorta dilatation Acute systolic CHF (congestive heart failure) ([facility]) New onset a-fib ([facility]) S/P gastric bypass Pericardial effusion Moderate mitral valve regurgitation Atrial fibrillation with RVR ([facility]) A-fib ([facility]) Hematoma Angina pectoris, unstable ([facility]) Chronic systolic heart failure ([facility]) LVH (left ventricular hypertrophy) Coronary artery disease involving sioux coronary artery of sioux heart without angina pectoris Benign hypertensive heart disease with heart failure ([facility]) Orthostatic hypotension Syncope and collapse [2] Past Medical History: Diagnosis Date Hypertension Obesity ENA (obstructive sleep apnea) [3] Family History Problem Relation Name Age of Onset Hypertension Mother Cancer Father Coronary artery disease Father Hypertension Father [4] Social History Tobacco Use Smoking status: Never Smokeless tobacco: Never Substance Use Topics Alcohol use: Yes Comment: occasional Drug use: Never [5] No Known Allergies [6] Current Outpatient Medications: apixaban (Eliquis) 5 mg tablet, Take 1 tablet (5 mg) by mouth two times daily for 196 doses., Disp:60 tablet, Rfl: 3 aspirin 81 mg EC tablet, Take 1 tablet (81 mg) by mouth in the morning., Disp: 30 tablet, Rfl: 3 bisacodyl (Dulcolax) 5 mg [...] in the morning for 96 doses., Disp: , Rfl: documented in this encounter Plan of Treatment Upcoming Encounters Date Type Department Care Team (Late st Contact Info) Description 03/18/2025 10:30 AM EDT Follow-Up [facility] Urology [address] [place] [phone] Haily Botello CNP [address] [place], [place] [id number] 03/22/2025 1:30 PM EDT Follow-Up [facility] Vascular and Endovascular Surgery [address] [place] [phone] Jeni Murray NP [address] [facility] [place] [facility] [address] [place], [place] [id number] 03/23/2025 1:00 PM EDT Follow-Up [facility] Heart at [facility] [address] [place] [address] Prabhu Chavez MD [address] [place] [phone] Pending Results Name Type Priority Associated Diagnoses Date /Time ECG 12 lead unit performed ECG Routine Paroxysmal atrial fibrillation (CMS/HCC) 03/10/2025 3:24 PM EDT Scheduled Orders Name Type Priority Associated Diagnoses Orde r Schedule Comprehensive metabolic panel Lab Routine Chronic systolic heart failure (CMS/HCC) Expected: 03/10/2025 (Approximate), Expires: 03/10/2026 CBC Lab Routine Chronic systolic heart failure (CMS/HCC) Blood loss anemia Expected: 03/10/2025 (Approximate), Expires: 03/10/2026 documented as of this encounter Procedures Procedure Name Priority Date/Time Associated Diagnosis Comments ECG 12 LEAD UNIT PERFORMED Routine 03/10/2025 3:24 PM EDT Paroxysmal atrial fibrillation (CMS/HCC) documented in this encounter Results * ECG 12 lead unit performed (03/10/2025 3:24 PM EDT) Mary Rosales [facility] ECG ORDERABLES Final Result documented in this encounter Visit Diagnoses Diagnosis Paroxysmal atrial fibrillation (CMS/HCC)- Primary Atrial fibrillation Acute systolic CHF (congestive heart failure) (CMS/HCC) Chronic systolic heart failure (CMS/HCC) Chronic systolic heart failure Blood loss anemia Acute posthemorrhagic anemia LVH (left ventricular hypertrophy) Cardiomegaly Coronary artery disease involving sioux coronary artery of sioux heart without angina pectoris Benign hypertensive heart disease with heart failure (CMS/HCC) Orthostatic hypotension Syncope and collapse documented in this encounter Care Teams Flexible Nanny Relationship Specialty Start Date End Date Jalen Echeverria DO [address] [place] [address] PCP - General 05/03/22 documented as of this encounter
--- NOTE | 2025-03-10 16:34 | CT_ITS ---
The [place] [id number] Patient Name: LINDSAY TORRES MRN: [id number] date: 1965 Sex: M Assigned Patient Location: ED.MAIN Current Patient Location: ED.MAIN Accession/Order Number: [id number] Exam Date: 03/10/2025 17:00 Report Date: 03/10/2025 17:31 At the request of: SUKHDEV GARCIA MD Procedure: CT cervical spine wo con CT CERVICAL SPINE WITHOUT CONTRAST: CLINICAL HISTORY: fall COMPARISON none TECHNIQUE: Contiguous axial unenhanced images were obtained through the cervical spine. Coronal and sagittal and 3-D reconstructions were generated. This CT exam was performed using one or more following dose reduction techniques: Automated exposure control, adjustment of the mA and/or kV according to patient size, or use of iterative reconstruction technique. FINDINGS: Minimal levocurvature. Ydjh-do-xcodauob multilevel intervertebral space narrowing and uncovertebral spurring. Multilevel facet arthropathy. These findings result in moderate canal narrowing C5-C6. Rcbn-se-hqncoukw degenerative changes elsewhere. No fracture or malalignment. Prevertebral soft tissues noted no prevertebral soft tissue swelling. Lung apices are clear. CT/CT cervical spine wo con IMPRESSION: Uunj-vf-mnaacolz multilevel degenerative changes without evidence of acute fracture or malalignment. Impression dictated by: Alexander Jean M.D. 03/10/2025 5:31 PM Dictation Location: [place] [address] Electronically authenticated by: [id number] Y Date: 03/10/2025 17:31
--- NOTE | 2025-03-10 16:34 | CT_ITS ---
The [address] [address] Patient Name: LINDSAY TORRES MRN: [id number] date: 1965 Sex: M Assigned Patient Location: ED.MAIN Current Patient Location: ED.MAIN Accession/Order Number: [id number] Exam Date: 03/10/2025 17:00 Report Date: 03/10/2025 17:28 At the request of: SUKHDEV GARCIA MD Procedure: CT head/brain wo con CT BRAIN WITHOUT CONTRAST: CLINICAL HISTORY: fall COMPARISON: 05/21/2021 TECHNIQUE: Contiguous axial unenhanced images were obtained through the brain. This CT exam was performed using one or more following dose reduction techniques: Automated exposure control, adjustment of the mA and/or kV according to patient size, or use of iterative reconstruction technique. FINDINGS: There is no evidence of midline shift, intra or extra-axial fluid collection, hemorrhage or CT evidence of acute large vascular disease stroke. Minor chronic small vessel ischemic disease. Vascular calcifications. Visualized intraorbital contents appear unremarkable. Visualized paranasal sinuses are clear. The surrounding soft tissues are normal. CT/CT head/brain wo con IMPRESSION: NO ACUTE INTRACRANIAL ABNORMALITY. Impression dictated by: Alexander Jean M.D. 03/10/2025 5:28 PM Dictation Location: [place] [address] Electronically authenticated by: [id number] Y Date: 03/10/2025 17:28
--- NOTE | 2025-03-10 16:35 | ED.GENADUL1 ---
HPI HPI - General Adult General Chief complaint: Fall Stated complaint: CODE PURPLE FALL Time Seen by Provider: 03/10/25 16:31 History of Present Illness HPI narrative: 59-year-old male presented to the emergency department after getting dizzy and falling and hitting his head. He was at the cardiology specialty clinic today when this happened. He had walked out of the exam room and he got dizzy and lightheaded and he fell and hit his forehead apparently on the counter. He tells me his head and his neck do not hurt. He did not sustain any other injuries. He is on Eliquis. Related Data Home Medications ?Medication ?Instructions ?Recorded ?Confirmed furosemide 40 mg tablet 40 mg PO BID 02/10/25 03/10/25 apixaban 5 mg tablet (Eliquis) mg 03/10/25 bisacodyl 5 mg tablet,delayed mg 03/10/25 release furosemide 20 mg tablet mg 03/10/25 metoprolol succinate 25 mg mg PO 03/10/25 tablet,extended release 24 hr sennosides 8.6 mg-docusate sodium PO 03/10/25 50 mg tablet (Senexon-S) spironolactone 25 mg tablet mg 03/10/25 tamsulosin 0.4 mg capsule mg PO 03/10/25 valsartan 40 mg tablet mg 03/10/25 Previous Rx's ?Medication ?Instructions ?Recorded docusate sodium 100 mg capsule 100 mg PO BID #10 caps 02/10/25 (Colace) Allergies Allergy/AdvReac Type Severity Reaction Status Date / Time No Known Drug Allergies Allergy Verified 03/10/25 16:39 Opioid HPI Opioid Management Most Recent Opioid Data: Last Pain Scale 1 02/17/25, 16:00 Last ORT Total Score 0 02/17/25, 20:43 Last ORT Risk Category Low Risk 02/17/25, 20:43 Review of Systems ROS Narrative A ten point review of systems is negative except as noted above. PFSH PFSH Medical History (Updated 03/10/25 @ 18:37 by Chay Basilio MD) HTN (hypertension) ?I10 - Essential (primary) hypertension (ICD-10) Rotator cuff dysfunction ?M67.919 - Unspecified disorder of synovium and tendon, unspecified shoulder (ICD-10) Surgical History (Updated 02/10/25 @ 18:04 by Susana Lopez) H/O gastric bypass ?Z98.84 - Bariatric surgery status (ICD-10) Social History Highest level of school completed/degree received: high school graduate Little interest or pleasure in doing things: not at all Feeling down, depressed, or hopeless: not at all Do you think of yourself as: straight/heterosexual Gender Identity: male Exam Narrative Exam Narrative: Nurses note and vital signs reviewed and patient is not hypoxic. General: The patient is on a long backboard and c-collar. Skin: Warm, dry, no pallor noted. There is no rash noted. Head: Normocephalic, there may be a small abrasion at the midline forehead Eye: Normal conjunctiva, no drainage Ears, Nose, Mouth, and Throat: oral mucosa is moist. Nares patent. Cardiovascular: Regular Rate and Rhythm; chest wall not tender Respiratory: Patient is in no distress, no accessory muscle use, lungs are clear to auscultation, no wheezing, rales or rhonchi. Breath sounds are equal Back: non-tender. GI: Soft and nontender Musculoskeletal: No palpable tenderness to all 4 extremities Neurological: A&O x4, normal speech Psychiatric: Cooperative Constitutional Vital Signs, click to edit/add: Last Vital Signs Temp 98.5 F 03/10/25 16:32 Pulse 79 03/10/25 18:20 Resp 19 03/10/25 18:10 BP 120/73 03/10/25 17:54 Pulse Ox 98 03/10/25 18:20 O2 Del Method Room Air 03/10/25 16:32 Course Vital Signs Vital signs: Vital Signs Temperature 98.5 F 03/10/25 16:32 Pulse Rate 88 03/10/25 16:32 Blood Pressure 102/64 03/10/25 16:32 Pulse Oximetry 96 03/10/25 16:32 Oxygen Delivery Method Room Air 03/10/25 16:32 Temperature 98.5 F 03/10/25 16:32 Pulse Rate 79 03/10/25 18:20 Respiratory Rate 19 03/10/25 18:10 Blood Pressure 120/73 03/10/25 17:54 Pulse Oximetry 98 03/10/25 18:20 Oxygen Delivery Method Room Air 03/10/25 16:32 Medical Decision Making MDM Narrative Medical decision making narrative: His workup including CT brain and CT C-spine is negative. He is now ambulatory without symptoms and he is able to be discharged. Treatment diagnosis and follow-up were discussed with the patient. Differential Diagnosis Differential Diagnosis: Near syncope, head contusion, intracranial hemorrhage, C-spine fracture Imaging Data CT scan - head: Radiologist's impression: ITS Impressions Cervical Spine CT 03/10/25 16:34 IMPRESSION: Kfgj-ns-zeeoufqk multilevel degenerative changes without evidence of acute fracture or malalignment. Impression dictated by: Alexander Jean M.D. 03/10/2025 5:31 PM Dictation Location: [facility] Electronically authenticated by: [id number] Y Date: 03/10/2025 17:[address] 03/10/25 16:34 IMPRESSION: NO ACUTE INTRACRANIAL ABNORMALITY. Impression dictated by: Alexander Jean M.D. 03/10/2025 5:28 PM Dictation Location: for[MD]-[place]. Electronically authenticated by: [id number] Y Date: 03/10/2025 17:28 ECG Data Attestation: I personally reviewed and interpreted this ECG as follows: (EKG on my interpretation shows sinus rhythm with a rate of 84) Discharge Plan Discharge Chief Complaint: Fall Clinical Impression: Near syncope Patient Disposition: Home, Self-Care Time of Disposition Decision: 18:37 Condition: Good Mode of Transportation: Private Vehicle Prescriptions / Home Meds: No Action sennosides-docusate sodium [Senexon-S] 8.6-50 mg tablet PO spironolactone 25 mg tablet tamsulosin 0.4 mg capsule PO bisacodyl 5 mg tablet,delayed release (DR/EC) furosemide 20 mg tablet metoprolol succinate 25 mg tablet extended release 24 hr PO valsartan 40 mg tablet Eliquis 5 mg tablet furosemide 40 mg tablet 40 mg PO BID docusate sodium [Colace] 100 mg capsule 100 mg PO BID Qty: 10 0RF Print Language: Bolivian Instructions: Near Syncope (ED) Referrals: LAUREANO LINDER [Primary Care Provider, Family Practice] - 1 week
--- NOTE | 2025-03-10 16:54 | ECG_ITS ---
[facility] Test Date: 2025-03-10 Pat Name: LINDSAY TORRES Department: Room: - Gender: Male [employer] Operator: : [id number] Requested By: [id number] Order Number: [id number] Reading MD: JOE LIGHT Measurements Intervals [place] Rate: 84 P: 46 NM: 174 QRS: 102 QRSD: 186 T: 44 QT: 438 QTc: 479 Interpretive Statements 1100 Sinus rhythm 2330 Nonspecific intraventricular conduction block 7100 Abnormal right axis deviation 9150 abnormal ECG Compared to ECG 02/18/2025 05:52:40 Atrial fibrillation no longer present Ventricular premature complex(es) no longer present Electronically Signed On 03-11-2025 14:03:06 EDT by JOE LIGHT
--- OUTSIDE RECORDS SUMMARY | 2025-03-10 18:43 | XMS_ITS | Clinical Summary ---
Author Organization [employer] tem Address [id number] [address] [place] [address] Care Team Providers Care Travel Insurance Agent Name Role Phone Jalen Echeverria DO Primary Care Provider [phone] Social History Tobacco Use Types Packs/Day Years [...] on file Insurance [employer] Care Teams Travel Insurance Agent Relationship Specialty Start Date End Date Jalen Echeverria DO PCP - General Family Medicine 05/18/19
--- OUTSIDE RECORDS SUMMARY | 2025-03-10 18:43 | XMS_ITS | Clinical Summary ---
Author Organization [facility] Address [address] [place] [address] Care Team Providers Care Service Clerk Name Role Phone Jalen Linder DO Primary Care Provider [phone] Allergies No known active allergies Medications ferrous sulfate 325 (65 Fe) MG tablet Take 65 mg by mouth in the morning and at bedtime. Active furosemide (Lasix) 20 mg tabletIndicatio ns:Edema, unspecified type Take 3 tablets (60 mg) by mouth in the morning. 90 tablet 03/05/20 25 025 Active apixaban (Eliquis) 5 mg tabletIndicatio ns:Acute systolic CHF (congestive heart failure) (CMS/HCC) Take 1 tablet (5 mg) by mouth two times daily for 196 doses. 60 tablet 3 03/05/20 25 025 Active bisacodyl (Dulcolax) 5 mg EC tabletIndicatio ns:S/P gastric bypass Take 1 tablet (5 mg) by mouth in the morning for 91 doses. Do not crush, chew, or split. 30 tablet 03/06/20 25 025 Active metoprolol succinate XL (Toprol-XL) 25 mg 24 hr tabletIndicatio ns:Acute systolic CHF (congestive heart failure) (CMS/HCC) Take 3 tablets (75 mg) by mouth in the morning for 96 doses. Do not crush or chew. 90 tablet 3 03/06/20 25 025 Active sennosides-docu sate sodium (Gertrude-Colace) 8.6-50 mg tabletIndicatio ns:Acute systolic CHF (congestive heart failure) (CMS/HCC) Take 1 tablet by mouth at bedtime. 30 tablet 03/05/20 25 025 Active spironolactone (Aldactone) 25 mg tabletIndicatio ns:Acute systolic CHF (congestive heart failure) (CMS/HCC) Take 0.5 tablets (12.5 mg) by mouth in the morning for 84 doses. Do not start before March 06, 2025. 15 tablet 2 03/06/20 25 025 Active tamsulosin (Flomax) 0.4 mg 24 hr capsuleIndicati ons:Benign prostatic hyperplasia, unspecified whether lower urinary tract symptoms present Take 1 capsule (0.4 mg) by mouth in the morning for 89 doses. 30 capsule 2 03/06/20 25 025 Active aspirin 81 mg EC tabletIndicatio ns:Acute systolic CHF (congestive heart failure) (CMS/HCC) Take 1 tablet (81 mg) by mouth in the morning. 30 tablet 3 03/10/20 25 025 Active valsartan (Diovan) 40 mg tabletIndicatio ns:Acute systolic CHF (congestive heart failure) (CMS/HCC) Take 0.5 tablets (20 mg) by mouth in the morning for 96 doses. 03/10/20 25 025 Active labetalol (Normodyne) 200 mg tabletIndicatio ns:Essential hypertension Take 2 tablets (400 mg) by mouth in the morning, at noon, and at bedtime. 540 tablet 3 06/05/20 23 025 Discontinued( erapy completed) furosemide (Lasix) 40 mg tabletIndicatio ns:Edema, unspecified type Take 1 tablet (40 mg) by mouth two times daily. 180 tablet 3 06/01/20 24 025 Discontinued labetalol (Normodyne) 200 mg tabletIndicatio ns:Essential hypertension Take 1 tablet (200 mg) by mouth before breakfast, before lunch, and before evening meal. 270 tablet 3 06/01/20 24 025 Discontinued(St op Taking at Discharge) lisinopril 10 mg tabletIndicatio ns:Essential hypertension Take 1 tablet (10 mg) by mouth in the morning. 90 tablet 3 07/06/19 25 025 Discontinued(St op Taking at Discharge) Linzess 145 mcg capsule Take 1 capsule by mouth in the morning. 01/29/20 25 025 Discontinued(St op Taking at Discharge) aspirin 81 mg EC tabletIndicatio ns:Acute systolic CHF (congestive heart failure) (CMS/HCC) Take 1 tablet (81 mg) by mouth in the morning for 96 doses. 30 tablet 3 03/06/20 25 025 Discontinued(St op Taking at Discharge) valsartan (Diovan) 40 mg tabletIndicatio ns:Acute systolic CHF (congestive heart failure) (CMS/HCC) Take 0.5 tablets (20 mg) by mouth in the morning for 96 doses. 15 tablet 3 03/06/20 25 025 Discontinued sacubitril-vals jagruti (Entresto) 24-26 mg tabletIndicatio ns:Chronic systolic heart failure (CMS/HCC) Take 1 tablet by mouth two times daily. 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 Likely 02/21 -TSH WNL Acute systolic CHF (congestive heart failure) Assessment & Plan (02/22/2025 9:44 AM EDT): - unable to assess NYHA class - BNP over 5000 at outside facility was 491 at [facility] -CXR showed cardiomegaly with vascular congestion and CT of the abdomen showed anasarca and ascites -Echocardiogram was completed at [place] which showed an EF of 15 to 20%, moderate pulmonary hypertension, moderate mitral valve regurgitation and small pericardial effusion - Continue Lasix 40 mg PO twice daily -Strict intake and output, daily weights. Currently net negative 8.4L - continue Toprol-XL 100mg daily - Aldactone 25 mg and valsartan held due to hypotension - Cardiology following, appreciate recommendations Assessment & Plan (02/21/2025 10:16 AM EDT): - unable to assess NYHA class - BNP over 5000 at outside facility was 491 at [facility] -CXR showed cardiomegaly with vascular congestion and CT of the abdomen showed anasarca and ascites -Echocardiogram was completed at [place] which showed an EF of 15 to 20%, moderate pulmonary hypertension, moderate mitral valve regurgitation and small pericardial effusion - Continue Lasix 40 mg PO twice daily -Strict intake and output, daily weights. Currently net negative 8.4L - continue Toprol-XL 100mg daily and Aldactone 25 mg - Cardiology following, appreciate recommendations Assessment & Plan (02/20/2025 12:57 PM EDT): - unable to assess NYHA class - BNP over 5000 at outside facility was 491 at [facility] -CXR showed cardiomegaly with vascular congestion and CT of the abdomen showed anasarca and ascites -Echocardiogram was completed today at [place] which showed an EF of 15 to 20%, moderate pulmonary hypertension, moderate mitral valve regurgitation and small pericardial effusion -Begin Lasix 40 mg IV twice daily -Strict intake and output, daily weights - continue lisinopril, Toprol-XL and Aldactone 25 mg Assessment & Plan (02/19/2025 2:43 PM EDT): - unable to assess NYHA class - BNP over 5000 at outside facility was 491 at [facility] -CXR showed cardiomegaly with vascular congestion and CT of the abdomen showed anasarca and ascites -Echocardiogram was completed today at [place] which showed an EF of 15 to 20%, moderate pulmonary hypertension, moderate mitral valve regurgitation and small pericardial effusion -Patient noted to have EF 55% and this is significant drop in EF her -Begin Lasix 40 mg IV twice daily -Strict intake and output, daily weights - continue lisinopril, Toprol-XL and Aldactone 25 mg -Patient to have cardiac cath Assessment & Plan (02/18/2025 11:00 PM EDT): - BNP over 5000 at outside facility was 491 at [facility] -CXR showed cardiomegaly with vascular congestion and CT of the abdomen showed anasarca and ascites -Echocardiogram was completed today at [place] which showed an EF of 15 to 20%, moderate pulmonary hypertension, moderate mitral valve regurgitation and small pericardial effusion -Begin Lasix 40 mg IV twice daily -Strict intake and output, daily weights -Will make n.p.o. for possible right heart cath -Troponin mildly elevated, likely type II, will continue to trend New onset a-fib 02/18/2025 Assessment & Plan (02/22/2025 9:44 AM EDT): - Patient found to be in new [...] deferred due to hypotension and clinical instability -[facility] Assessment & Plan (02/21/2025 10:16 AM EDT): - Patient found to be in new [...] cardioversion once euvolemic. Likely 02/21 -TSH WNL Assessment & Plan (02/20/2025 12:57 PM EDT): - Patient found to be in new onset atrial fibrillation at outside hospital, was initially on Cardizem drip but was discontinued due to low blood pressure -Patient was also initially given a dose of Xarelto at outside hospital, will transition to heparin infusion -Continue Toprol-XL and loading dose digoxin, BERNARDINO cardioversion once euvolemic -[facility] Assessment & Plan (02/19/2025 2:43 PM EDT): - Patient found to be in new onset atrial fibrillation at outside hospital, was initially on Cardizem drip but was discontinued due to low blood pressure -Patient was also initially given a dose of Xarelto at outside hospital, will transition to heparin infusion -Continue Toprol-XL and loading dose digoxin, possible BERNARDINO cardioversion. - -[facility] Assessment & Plan (02/18/2025 11:00 PM EDT): - Patient found to be in new onset atrial fibrillation at outside hospital, was initially on Cardizem drip but was discontinued due to low blood pressure -Patient was also initially given a dose of Xarelto at outside hospital, will transition to heparin infusion -Blood pressure still borderline, 5 mg IV Lopressor given without relief, will initiate digoxin IV loading dose, electrolytes within normal limits -[facility] S/P gastric bypass 02/18/2025 Assessment & Plan (02/22/2025 9:46 AM EDT): - Stable Assessment & Plan (02/21/2025 10:16 AM EDT): - Stable Assessment & Plan (02/20/2025 12:57 PM EDT): - Stable Assessment & Plan (02/19/2025 2:43 PM EDT): - Stable Assessment & Plan (02/18/2025 11:00 PM EDT): - Stable Pericardial effusion 02/18/2025 Assessment & Plan (02/18/2025 11:00 PM EDT): - Small pericardial effusion noted on echocardiogram, cardiology consult Moderate mitral valve regurgitation 02/18/2025 Assessment & Plan (02/18/2025 11:00 PM EDT): - Cardiology consult Angina pectoris, unstable 02/18/2025 Ascending aorta dilatation 05/05/2022 Obesity 09/10/2018 Gout 05/18/2016 Primary hypertension 05/18/2016 Assessment & Plan (02/22/2025 9:44 AM EDT): - Valsartan and spironolactone held - Blood pressure has been rather hypotensive Assessment & Plan (02/21/2025 10:16 AM EDT): - Continue current valsartan, spironolactone and Toprol-XL for GDMT - Blood pressure has been within acceptable range on 8/24 AM Assessment & Plan (02/20/2025 12:57 PM EDT): - Continue current lisinopril and Toprol-XL Assessment & Plan (02/19/2025 2:43 PM EDT): - Continue current lisinopril and Toprol-XL Assessment & Plan (02/18/2025 11:00 PM EDT): - Continue labetalol ENA (obstructive sleep apnea) 05/18/2016 Assessment & Plan (02/22/2025 9:44 AM EDT): - Stable, Patient currently not using CPAP Assessment & Plan (02/21/2025 10:16 AM EDT): - Stable, Patient currently not using CPAP Assessment & Plan (02/20/2025 12:57 PM EDT): - Stable,Patient currently not using CPAP Assessment & Plan (02/19/2025 2:43 PM EDT): - Stable,Patient currently not using CPAP Assessment & Plan (02/18/2025 11:00 PM EDT): - Stable Encounters Date Type Department Care Team Description 03/10/2025 3:20 PM EDT Office Visit [facility] Heart [address] [address] Mary Rosales CNP Paroxysmal atrial fibrillation (CMS/HCC) (Primary Dx); Acute systolic CHF (congestive heart failure) (CMS/HCC); Chronic systolic heart failure (CMS/HCC); Blood loss anemia; LVH (left ventricular hypertrophy); Coronary artery disease involving bois forte coronary artery of bois forte heart without angina pectoris; Benign hypertensive heart disease with heart failure (CMS/HCC); Orthostatic hypotension; Syncope and collapse 03/08/2025 Telephone [facility] [address] [place] [address] Ching Lopez RN HF post discharge call and inpt survey sent. 03/03/2025 9:30 AM EDT - 03/03/2025 10:30 AM EDT Surgery [facility] [address] [place] [address] Hugo Rojas MD Cardioversion 02/18/2025 5:46 PM EDT - 03/05/2025 5:57 PM EDT Hospital Encounter [facility] [address] [place] [id number] Gabriele Nick MD Saad, Hani, MD Chang, MD Mary Ugalde Fadi, MD A-fib ([facility]) (Primary Dx); Acute systolic CHF (congestive heart failure) ([facility]); Chronic HFrEF (heart failure with reduced ejection fraction) ([facility]); Paroxysmal atrial fibrillation ([facility]); Atrial fibrillation, unspecified type ([facility]); Angina pectoris, unstable ([facility]); Edema, unspecified type; S/P gastric bypass; Benign prostatic hyperplasia, unspecified whether lower urinary tract symptoms present Discharge Disposition: Home-Health Care [facility] () 02/18/2025 Travel from Last 3 Months Immunizations Immunization Administration Dates Next Due Influenza, injectable, quadrivalent 06/01/2016 Pneumococcal Conjugate PCV 13 09/19/2016 Unspecified Sars-Cov-2 Vaccination 10/20/2020, Family History Medical History Relation Name Comments Cancer Father Coronary artery disease Father Hypertension Father Hypertension Mother Relation Name Status Comments Father Mother Social History Tobacco Use Types Packs/Day Years Used Date Smoking Tobacco: Never Smokeless Tobacco: Never Tobacco Cessation:Counseling Given: Not Answered Alcohol Use Standard Drinks/Week Comments Yes 0 (1 standard drink = 0.6 oz pur e alcohol) occasional [facility] Utilities Answer Date Recorded In the past 12 months has th e [employer], gas, oil, or water [employer] threatened to shut off services in your [...] any time in the past 12 m [facility], were you homeless or living in a retirement (including now)? No 02/18/2025 Hunger Vital Sign [...] Don't know 02/19/2025 10 :20 AM EDT Last Filed Vital Signs Vital Sign Reading Time Taken Comments Blood Pressure 114/70 03/10/2025 3:21 PM EDT Pulse 88 03/10/2025 3:21 PM EDT Temperature 36.3 C (97.3 F) 03/05/2025 3:39 PM EDT Respiratory Rate 18 03/05/2025 3:39 PM EDT Oxygen Saturation 94% 03/10/2025 3:21 PM EDT Inhaled Oxygen Concentration - - Weight 104 kg (230 lb) 03/10/2025 3:21 PM EDT Height 170.2 cm (5' 7 ) 03/10/2025 3:21 PM EDT Body Mass Index 36.02 03/10/2025 3:21 PM EDT Plan of Treatment Upcoming Encounters Date Type Department Care Team (Late st Contact Info) Description 03/18/2025 10:30 AM EDT Follow-Up [facility] Urology [address] [place] [phone] Haily Botello, TEACHER AIDE CLERICAL [address] [facility] [place] [address] 03/22/2025 1:30 PM EDT Follow-Up [facility] Vascular and Endovascular Surgery [address] [place] [address] Jeni Murray NP [address] [place] [address] 03/23/2025 1:00 PM EDT Follow-Up [facility] [address] [place] [address] Prabhu Chavez MD [address] [place] [address] Health Maintenance Due Date Last Done Comments CT Colonography 1966 Colonoscopy 1966 Colorectal Cancer Screening 1966 FIT-DNA 1966 FIT 1966 FOBT 1966 Sigmoidoscopy 1966 Depression Screening 1978 Hepatitis B Vaccines (1 of 3 - 19+ 3-dose series) 1985 Adult Tetanus 1988 Zoster Vaccines (1 of 2) 2016 Pneumococcal Vaccine: Pediatrics (0 to 5 Years) and At-Risk Patients (6 to 64 Years) (2 of 2 - PPSV23, PCV20, or PCV21) 11/14/2016 09/19/2016 COVID-19 Vaccine ( season) 2025 10/20/2020, 10/20/2020, 09/22/2020, Additional history exists Influenza Vaccine (#1) 2025 06/01/2016 HIB Vaccines Aged Out No longer eligi ble based on patient's age to complete this topic HPV Vaccines Aged Out No longer eligi ble based on patient's age to complete this topic IPV Vaccines Aged Out No longer eligi ble based on patient's age to complete this topic Meningococcal B Vaccine Aged Out No l onger eligible based on patient's age to complete this topic Meningococcal Vaccine Aged Out No matilde sara eligible based on patient's age to complete this topic Rotavirus Vaccines Aged Out No longer eligible based on patient's age to complete this topic Procedures Procedure Name Priority Date/Time Associated Diagnosis Comments ECG 12 LEAD UNIT PERFORMED Routine 03/10/2025 3:24 PM EDT Paroxysmal atrial fibrillation ([facility]/HCC) CBC Pending Discharge 03/05/2025 5:00 AM EDT PHOSPHORUS Pending Discharge 03/05/2025 5:00 AM EDT MAGNESIUM Pending Discharge 03/05/2025 5:00 AM EDT COMPREHENSIVE METABOLIC PANEL Pending Discharge 03/05/2025 5:00 AM EDT CTA HEART CORONARY W IV CONTRAST W OR WO FFRCT Routine 03/04/2025 3:29 PM EDT LAVENDER TOP Routine 03/04/2025 4:48 AM EDT LIGHT GREEN TOP Routine 03/04/2025 4:48 AM EDT EXTRA TUBES Routine 03/04/2025 4:48 AM EDT ANTI-FACTOR XA Pending Discharge 03/04/2025 4:41 AM EDT ECG 12-LEAD STAT 03/04/2025 4:06 AM EDT CBC Pending Discharge 03/04/2025 1:08 AM EDT PHOSPHORUS Pending Discharge 03/04/2025 1:08 AM EDT MAGNESIUM Pending Discharge 03/04/2025 1:08 AM EDT COMPREHENSIVE METABOLIC PANEL Pending Discharge 03/04/2025 1:08 AM EDT ANTI-FACTOR XA Pending Discharge 03/04/2025 1:08 AM EDT ANTI-FACTOR XA Pending Discharge 03/03/2025 7:54 PM EDT PLATELET COUNT STAT Add-on 03/03/2025 12:54 PM EDT APTT STAT 03/03/2025 12:54 PM EDT ECG 12-LEAD Routine 03/03/2025 10:36 AM EDT TRANSESOPHAGEAL ECHO (BERNARDINO) W/ LIMITED DOPPLER AND COLOR FLOW Routine 03/03/2025 10:09 AM EDT CARDIOVERSION Routine 03/03/2025 10:01 AM EDT A-fib (CMS/HCC) ECG 12-LEAD Routine 03/03/2025 9:26 AM EDT CBC Pending Discharge 03/03/2025 3:46 AM EDT DIGOXIN LEVEL Pending Discharge 03/03/2025 3:46 AM EDT PHOSPHORUS Pending Discharge 03/03/2025 3:46 AM EDT MAGNESIUM Pending Discharge 03/03/2025 3:46 AM EDT COMPREHENSIVE METABOLIC PANEL Pending Discharge 03/03/2025 3:46 AM EDT ANTI-FACTOR XA Pending Discharge 03/03/2025 3:46 AM EDT ANTI-FACTOR XA Pending Discharge 03/02/2025 9:21 PM EDT URINALYSIS Pending Discharge 03/02/2025 2:48 PM EDT APTT STAT 03/02/2025 2:09 PM EDT LIMITED ECHO (TTE) W/ LIMITED DOPPLER, COLOR FLOW AND IMAGING AGENT Routine 03/02/2025 12:33 PM EDT PLATELET COUNT STAT Add-on 03/02/2025 4:26 AM EDT LAVENDER TOP Routine 03/02/2025 4:26 AM EDT EXTRA TUBES Routine 03/02/2025 4:26 AM EDT PHOSPHORUS Pending Discharge 03/02/2025 4:26 AM EDT MAGNESIUM Pending Discharge 03/02/2025 4:26 AM EDT COMPREHENSIVE METABOLIC PANEL Pending Discharge 03/02/2025 4:26 AM EDT DIGOXIN LEVEL Add-On 03/01/2025 5:12 AM EDT LAVENDER TOP Routine 03/01/2025 5:12 AM EDT EXTRA TUBES Routine 03/01/2025 5:12 AM EDT PHOSPHORUS Pending Discharge 03/01/2025 5:12 AM EDT MAGNESIUM Pending Discharge 03/01/2025 5:12 AM EDT COMPREHENSIVE METABOLIC PANEL Pending Discharge 03/01/2025 5:12 AM EDT PHOSPHORUS Pending Discharge 02/28/2025 3:42 AM EDT MAGNESIUM Pending Discharge 02/28/2025 3:42 AM EDT COMPREHENSIVE METABOLIC PANEL Pending Discharge 02/28/2025 3:42 AM EDT CBC Pending Discharge 02/28/2025 3:42 AM EDT CBC Pending Discharge 02/27/2025 11:38 PM EDT CBC Pending Discharge 02/27/2025 6:49 PM EDT CBC Pending Discharge 02/27/2025 12:13 PM EDT PHOSPHORUS Pending Discharge 02/27/2025 5:58 AM EDT MAGNESIUM Pending Discharge 02/27/2025 5:58 AM EDT COMPREHENSIVE METABOLIC PANEL Pending Discharge 02/27/2025 5:58 AM EDT CBC Pending Discharge 02/27/2025 5:58 AM EDT CBC Pending Discharge 02/26/2025 11:21 PM EDT CBC Pending Discharge 02/26/2025 6:18 PM EDT RETICULOCYTE PANEL Add-On 02/26/2025 11:48 AM EDT CBC Pending Discharge 02/26/2025 11:48 AM EDT FOLATE Add-On 02/26/2025 5:13 AM EDT VITAMIN B12 Add-On 02/26/2025 5:13 AM EDT FERRITIN Add-On 02/26/2025 5:13 AM EDT IRON AND TIBC Add-On 02/26/2025 5:13 AM EDT PHOSPHORUS Pending Discharge 02/26/2025 5:13 AM EDT MAGNESIUM Pending Discharge 02/26/2025 5:13 AM EDT COMPREHENSIVE METABOLIC PANEL Pending Discharge 02/26/2025 5:13 AM EDT CBC Pending Discharge 02/26/2025 5:13 AM EDT CBC Pending Discharge 02/25/2025 11:56 PM EDT CBC Pending Discharge 02/25/2025 6:08 PM EDT CBC Pending Discharge 02/25/2025 1:29 PM EDT CTA ABDOMEN PELVIS W IV CONTRAST Routine 02/25/2025 10:49 AM EDT TRANSFUSE RED BLOOD CELLS Routine 02/25/2025 10:10 AM EDT HEMOGLOBIN AND HEMATOCRIT, BLOOD Pending Discharge 02/25/2025 9:04 AM EDT DIGOXIN LEVEL Pending Discharge 02/25/2025 5:06 AM EDT PHOSPHORUS Pending Discharge 02/25/2025 5:06 AM EDT MAGNESIUM Pending Discharge 02/25/2025 5:06 AM EDT COMPREHENSIVE METABOLIC PANEL Pending Discharge 02/25/2025 5:06 AM EDT CBC Pending Discharge 02/25/2025 5:06 AM EDT CBC Pending Discharge 02/25/2025 12:06 AM EDT CBC Pending Discharge 02/24/2025 6:37 PM EDT CBC Pending Discharge 02/24/2025 12:43 PM EDT POTASSIUM, URINE, RANDOM Pending Discharge 02/24/2025 10:52 AM EDT SODIUM, URINE, RANDOM Pending Discharge 02/24/2025 10:52 AM EDT CHLORIDE, URINE, RANDOM Pending Discharge 02/24/2025 10:52 AM EDT CREATININE, URINE, RANDOM Pending Discharge 02/24/2025 10:52 AM EDT OSMOLALITY, URINE Pending Discharge 02/24/2025 10:52 AM EDT URINALYSIS WITH MICROSCOPIC Pending Discharge 02/24/2025 10:52 AM EDT US RENAL COMPLETE STAT 02/24/2025 10:09 AM EDT PHOSPHORUS Pending Discharge 02/24/2025 3:21 AM EDT MAGNESIUM Pending Discharge 02/24/2025 3:21 AM EDT COMPREHENSIVE METABOLIC PANEL Pending Discharge 02/24/2025 3:21 AM EDT CBC Pending Discharge 02/24/2025 3:21 AM EDT CBC Pending Discharge 02/23/2025 11:50 PM EDT CBC Pending Discharge 02/23/2025 6:30 PM EDT BLOOD CULTURE STAT 02/23/2025 12:04 PM EDT BLOOD CULTURE STAT 02/23/2025 12:03 PM EDT LACTIC ACID WITH 4 HOUR REFLEX Pending Discharge 02/23/2025 11:59 AM EDT CBC Pending Discharge 02/23/2025 11:15 AM EDT ECG 12-LEAD STAT 02/23/2025 9:48 AM EDT PHOSPHORUS Pending Discharge 02/23/2025 5:33 AM EDT MAGNESIUM Pending Discharge 02/23/2025 5:33 AM EDT COMPREHENSIVE METABOLIC PANEL Pending Discharge 02/23/2025 5:33 AM EDT CBC Pending Discharge 02/23/2025 5:33 AM EDT BASIC METABOLIC PANEL Routine 02/23/2025 12:07 AM EDT CBC Timed 02/23/2025 12:07 AM EDT XR CHEST 1 VIEW STAT 02/22/2025 7:06 PM EDT CBC Timed 02/22/2025 6:31 PM EDT URINALYSIS MICROSCOPIC WITH REFLEX CULTURE Routine 02/22/2025 4:15 PM EDT URINALYSIS WITH REFLEX CULTURE Routine 02/22/2025 4:[address] CHEST W IV CONTRAST Routine 02/22/2025 1:[address] ABDOMEN PELVIS W IV CONTRAST STAT 02/22/2025 1:01 PM EDT PROTIME-INR STAT Add-on 02/22/2025 11:49 AM EDT RED TOP Routine 02/22/2025 11:49 AM EDT EXTRA TUBES Routine 02/22/2025 11:49 AM EDT COMPREHENSIVE METABOLIC PANEL Routine 02/22/2025 11:49 AM EDT CBC Timed 02/22/2025 11:49 AM EDT ANTI-FACTOR XA Routine 02/22/2025 11:49 AM EDT POCT GLUCOSE METER UNSOLICITED RESULTS Routine 02/22/2025 11:34 AM EDT LACTIC ACID WITH 4 HOUR REFLEX STAT 02/22/2025 9:47 AM EDT BLOOD CULTURE STAT 02/22/2025 9:46 AM EDT BLOOD CULTURE Routine 02/22/2025 9:46 AM EDT PREPARE RBC Routine 02/22/2025 7:31 AM EDT ECG 12-LEAD STAT 02/22/2025 7:16 AM EDT HEMOGLOBIN AND HEMATOCRIT, BLOOD STAT 02/22/2025 7:07 AM EDT LACTIC ACID WITH 4 HOUR REFLEX STAT 02/22/2025 7:07 AM EDT TYPE AND SCREEN STAT 02/22/2025 7:07 AM EDT HEPATIC FUNCTION PANEL Add-On 02/22/2025 7:00 AM EDT LIGHT GREEN TOP Routine 02/22/2025 7:00 AM EDT EXTRA TUBES Routine 02/22/2025 7:00 AM EDT CBC WITH AUTO DIFFERENTIAL STAT 02/22/2025 6:58 AM EDT MAGNESIUM STAT 02/22/2025 6:58 AM EDT HIGH SENSITIVITY TROPONIN I STAT 02/22/2025 6:58 AM EDT CBC AND DIFFERENTIAL STAT 02/22/2025 6:58 AM EDT POCT GLUCOSE METER UNSOLICITED RESULTS Routine 02/22/2025 6:13 AM EDT ANTI-FACTOR XA Pending Discharge 02/22/2025 5:08 AM EDT CBC STAT Add-on 02/22/2025 5:00 AM EDT HIGH SENSITIVITY TROPONIN I Add-On 02/22/2025 5:00 AM EDT MAGNESIUM Add-On 02/22/2025 5:00 AM EDT LAVENDER TOP Routine 02/22/2025 5:00 AM EDT LIGHT GREEN TOP Routine 02/22/2025 5:00 AM EDT EXTRA TUBES Routine 02/22/2025 5:[address] ABDOMEN PELVIS WO IV CONTRAST STAT 02/21/2025 11:54 AM EDT ANTI-FACTOR XA Pending Discharge 02/21/2025 3:55 AM EDT BASIC METABOLIC PANEL Pending Discharge 02/21/2025 3:55 AM EDT APTT Pending Discharge 02/21/2025 3:55 AM EDT CBC Pending Discharge 02/21/2025 3:55 AM EDT ANTI-FACTOR XA Timed 02/20/2025 11:40 PM EDT ANTI-FACTOR XA Timed 02/20/2025 5:38 PM EDT ANTI-FACTOR XA STAT 02/20/2025 9:39 AM EDT APTT Routine 02/20/2025 9:39 AM EDT HEMOGLOBIN AND HEMATOCRIT, BLOOD Routine 02/20/2025 4:16 AM EDT BASIC METABOLIC PANEL Routine 02/20/2025 4:16 AM EDT HIGH SENSITIVITY TROPONIN I Timed 02/19/2025 6:03 PM EDT HIGH SENSITIVITY TROPONIN I Timed 02/19/2025 11:06 AM EDT ECG 12-LEAD STAT 02/19/2025 9:30 AM EDT APTT Routine 02/19/2025 8:19 AM EDT ANTI-FACTOR XA Routine 02/19/2025 8:19 AM EDT MAGNESIUM Add-On 02/19/2025 4:18 AM EDT HIGH SENSITIVITY TROPONIN I Timed 02/19/2025 4:18 AM EDT CBC Routine 02/19/2025 4:18 AM EDT BASIC METABOLIC PANEL Routine 02/19/2025 4:18 AM EDT LAVENDER TOP Routine 02/19/2025 1:25 AM EDT EXTRA TUBES Routine 02/19/2025 1:25 AM EDT HIGH SENSITIVITY TROPONIN I Timed 02/19/2025 1:25 AM EDT APTT Routine 02/19/2025 1:25 AM EDT ANTI-FACTOR XA Routine 02/19/2025 1:25 AM EDT ECG 12-LEAD STAT 02/18/2025 7:30 PM EDT ANTI-FACTOR XA Add-On 02/18/2025 6:46 PM EDT APTT STAT 02/18/2025 6:46 PM EDT CBC WITH AUTO DIFFERENTIAL STAT 02/18/2025 6:46 PM EDT TSH3 REFLEX TO FT4 STAT 02/18/2025 6: 46 PM EDT B-TYPE NATRIURETIC PEPTIDE STAT 02/18/2025 6:46 PM EDT CBC AND DIFFERENTIAL STAT 02/18/2025 6:46 PM EDT PROTIME-INR STAT 02/18/2025 6:46 PM EDT HIGH SENSITIVITY TROPONIN I STAT 02/18/2025 6:46 PM EDT PHOSPHORUS STAT 02/18/2025 6:46 PM EDT MAGNESIUM STAT 02/18/2025 6:46 PM EDT LACTIC ACID, PLASMA STAT 02/18/2025 6 :46 PM EDT COMPREHENSIVE METABOLIC PANEL STAT 02/18/2025 6:46 PM EDT from Last 3 Months Results * ECG 12 lead unit performed (03/10/2025 3:24 PM EDT) Mary Rosales [facility] ECG ORDERABLES Final Result * (ABNORMAL) CBC (03/05/2025 5:00 AM EDT) Only the most recent of30 resultswithin the time period is included. Auto WBC 7.45 4.00 - 10.60 10*3/uL 03/05/2025 5:48 AM EDT [facility] ([facility]) RBC 2.69(L) 4.20 - 5.70 10*6/uL 03/05/2025 5:48 AM EDT [facility] ([facility]) Hemoglobin 8.1(L) 13.0 - 17.0 g/dL 03/05/2025 5:48 AM EDT [facility] ([facility]) Hematocrit 24.2(L) 39.0 - 50.0 % 03/05/2025 5:48 AM EDT [facility] ([facility]) MCV 90.0 82.0 - 98.0 fL 03/05/2025 5:48 AM EDT [facility] ([facility]) MCH 30.1 27.0 - 33.0 pg 03/05/2025 5:48 AM EDT [facility] ([facility]) MCHC 33.5 32.0 - 35.0 g/dL 03/05/2025 5:48 AM EDT [facility] ([facility]) RDW 16.3(H) 11.5 - 15.0 % 03/05/2025 5:48 AM EDT [facility] ([facility]) Platelets 399 150 - 400 10*3/uL 03/05/2025 5:48 AM EDT [facility] ([facility]) Blood Venous blood specimen / Unknown Venipuncture / Unknown 03/05/2025 5:00 AM EDT 03/05/2025 5:36 AM EDT us Ruth Hernandez MD LAB BLOOD ORDERABLES Final Resul t Performing Organization Address City/[facility]/ZIP Co de Phone Number [facility]) [address] [place] [phone] * Phosphorus (03/05/2025 5:00 AM EDT) Only the most recent of12 resultswithin the time period is included. Phosphorus 3.0 2.5 - 5.0 mg/dL 03/05/2025 6:02 AM EDT [facility] ([facility]) Blood Venous blood specimen / Unknown Venipuncture / Unknown 03/05/2025 5:00 AM EDT 03/05/2025 5:35 AM EDT us Ruth Hernandez MD LAB BLOOD ORDERABLES Final Resul t [facility]) [address] [place] [phone] * Magnesium (03/05/2025 5:00 AM EDT) Only the most recent of15 resultswithin the time period is included. Magnesium 1.9 1.9 - 2.7 mg/dL 03/05/2025 6:02 AM EDT [facility] ([facility]) Blood Venous blood specimen / Unknown Venipuncture / Unknown 03/05/2025 5:00 AM EDT 03/05/2025 5:35 AM EDT us Ruth Hernandez MD LAB BLOOD ORDERABLES Final Resul t [facility] ([facility]) [address] [place] [address] * (ABNORMAL) Comprehensive metabolic panel (03/05/2025 5:00 AM EDT) Only the most recent of13 resultswithin the time period is included. Sodium 132(L) 136 - 145 mmol/L 03/05/2025 6:02 AM EDT [facility] ([facility]) Potassium 3.9 3.5 - 5.1 mmol/L 03/05/2025 6:02 AM EDT [facility] ([facility]) Chloride 103 98 - 107 mmol/L 03/05/2025 6:02 AM EDT [facility] ([facility]) CO2 24 21 - 31 mmol/L 03/05/2025 6:02 AM EDT [facility] ([facility]) Anion Gap 9 7 - 20 mmol/L 03/05/2025 6:02 AM EDT [facility] ([facility]) BUN 13 7 - 25 mg/dL 03/05/2025 6:02 AM EDT [facility] ([facility]) Creatinine 0.73 0.70 - 1.30 mg/dL 03/05/2025 6:02 AM EDT [facility] ([facility]) BUN/Creatinine Ratio 17.8 10/2024 6:02 AM EDT [facility] ([facility]) Glucose 85 70 - 100 mg/dL 03/05/2025 6:02 AM EDT [facility] ([facility]) Calcium 8.1(L) 8.6 - 10.3 mg/dL 03/05/2025 6:02 AM EDT [facility] ([facility]) AST 16 13 - 39 U/L 03/05/2025 6:02 AM EDT [facility] ([facility]) ALT (SGPT) 15 7 - 52 U/L 03/05/2025 6:02 AM EDT [facility] ([facility]) Alkaline Phosphatase 60 34 - 104 U/L 03/05/2025 6:02 AM EDT [facility] ([facility]) Total Protein 5.2(L) 6.0 - 8.3 g/dL 03/05/2025 6:02 AM EDT [facility] ([facility]) Albumin 3.0(L) 3.5 - 5.7 g/dL 03/05/2025 6:02 AM EDT [facility] ([facility]) Total Bilirubin 3.8(H) 0.3 - 1.0 mg/dL 03/05/2025 6:02 AM EDT [facility] ([facility]) eGFR 105.5 >60.0 mL/min/1. 73m*2 03/05/2025 6:02 AM EDT [facility] ([facility]) Comment:[facility] s estimated glomerular filtration rate (eGFR) will [...] EDT 03/05/2025 5:35 AM EDT us Ruth Hernandez MD LAB BLOOD ORDERABLES Final Resul t [facility] ([facility]) [address] [place], [place] [id number] * CTA Heart Coronary W IV Contrast [...] Electronically signed: Reji Dick MD. us Ruth Hernandez MD IMG CT PROCEDURES Final Result * Lavender Top (03/04/2025 4:48 AM EDT) Only the most recent of5 resultswithin the time period is included. Extra Tube Hold for add-ons. 03/04/2025 7:01 AM EDT [facility] ([facility]) Comment:Auto resulted. Blood Venous blood specimen / Unknown Venipuncture / Unknown 03/04/2025 4:48 AM EDT 03/04/2025 5:13 AM EDT us Ruth Hernandez MD LAB BLOOD ORDERABLES Final Resul t Performing Organization Address City/[facility]/ZIP Co de Phone Number [facility]) [address] [place] [phone] * Light Green Top (03/04/2025 4:48 AM EDT) Only the most recent of3 resultswithin the time period is included. [facility] Extra Tube Hold for add-ons. 03/04/2025 7:01 AM EDT [facility] ([facility]) Comment:Auto resulted. Blood Venous blood specimen / Unknown Venipuncture / Unknown 03/04/2025 4:48 AM EDT 03/04/2025 5:13 AM EDT us Ruth Hernandez MD LAB BLOOD ORDERABLES Final Resul t Performing Organization Address City/[facility]/ZIP Co de Phone Number [facility]) [address] [place] [phone] * Anti-Xa (Heparin Level) (03/04/2025 4:41 AM EDT) Only the most recent of14 resultswithin the time period is included. Anti-Xa (Heparin) 0.34 0.3 - 0.7 IU/mL 03/04/2025 5:57 AM EDT [facility] ([facility]) Comment:Rivaroxaban and Apix aban will interfere with the anti Xa assay used to monitor UFH and LMWH. Blood Venous blood specimen / Unknown Venipuncture / Unknown 03/04/2025 4:41 AM EDT 03/04/2025 5:11 AM EDT us Ruth Hernandez MD LAB BLOOD ORDERABLES Final Resul t [facility] ([facility]) [address] [place] [address] * ECG 12 lead (03/04/2025 4:06 AM EDT) Only the most recent of7 resultswithin the time period is included. Ventricular Rate 78 BPM GE MUSE Atrial Rate 78 BPM GE MUSE W[place] Interval 206 ms GE MUSE QRS DURATION 182 ms GE MUSE QT Interval 432 ms GE MUSE QTC CALCULATION(BAZE TT) 492 ms GE MUSE P [place] 53 degrees GE MUSE R-[place] -31 degrees GE MUSE T Wave [place] 134 degrees GE MUSE 03/04/2025 12:4 3 [...] (80) on 03/04/2025 5:11:38 PM us Carol Pirkl TEACHER AIDE CLERICAL ECG ORDERABLES Final Result GE MUSE * (ABNORMAL) aPTT - baseline (03/03/2025 12:54 PM EDT) Only the most recent of7 resultswithin the time period is included. aPTT 41.8(H) 25.0 - 35.0 Seconds 03/03/2025 1:33 PM EDT [facility]) Comment:Clinical significanc e of the APTT is questionable in the presence of heparin. Blood Venous blood specimen / Unknown Venipuncture / Unknown 03/03/2025 12:54 PM EDT 03/03/2025 12:58 PM EDT Ruth Hernandez MD LAB BLOOD ORDERABLES Final Resul t Performing Organization Address City/[facility] Co de Phone Number [facility]) [address] [place] [address] * Platelet count (03/03/2025 12:54 PM EDT) Only the most recent of2 resultswithin the time period is included. Platelets 358 150 - 400 10*3/uL 03/03/2025 1:18 PM EDT [facility]) Blood Venous blood specimen / Unknown Venipuncture / Unknown 03/03/2025 12:54 PM EDT 03/03/2025 1:01 PM EDT Ruth Hernandez MD LAB BLOOD ORDERABLES Final Resul t Performing Organization Address City/[facility] Co de Phone Number [facility]) [address] [place] [address] * TRANSESOPHAGEAL ECHO (BERNARDINO) W/ LIMITED DOPPLER AND COLOR FLOW (03/03/2025 10:09 AM EDT) Anatomical Region Laterality Modality Other 03/03/2025 9:24 AM EDT Narrative 03/03/2025 3:46 PM EDT [facility] Heart Station [address] [place] [address] [phone] (fax) Transesophageal Echocardiogram-[facility] Name: LINDSAY PINTO Study Date: 03/03/2025 09:24 AM B/P: 108 mmHg/71 mmHg HR: 84 bpm Date of : 1965 Location: [facility] Height: 68 in. Age: 59 year(s) Patient Room: [facility] Weight: 244 lb. Gender: Male Patient Status: InPt BSA: 2.22 m2 Indication: Atrial Fibrillation Examination: BERNARDINO/Limited Doppler/CFI, Agitated Saline Image Quality: Fair Patient Consent: Informed, written consent was obtained for the procedure Exam Details Contrast: I.V. dose of agitated saline Exam Location: A BERNARDINO was performed in the [employer] without complications Anesthesia Pharyngeal anesthesia with viscous [...] to transverse sinus Procedure Staff Reading Group: [facility] Referring Physician: JALEN LINDER Application Release Manager: ZUHAIR Caban, RDCS Ordering Physician: JOSE MENESES Procedure Note Hugo Rojas MD - 03/03/2025 1 [facility] Heart Station [address] [place] [id number] [phone] (fax) Transesophageal Echocardiogram-[facility] Name: LINDSAY PINTO Study Date: 03/03/2025 09:24 AM B/P: 108 mmHg/71 mmHg HR: 84 bpm Date of : 1965 Location: [facility] Height: 68 in. Age: 59 year(s) Patient Room: 3174 Weight: 244 lb. Gender: Male Patient Status: InPt BSA: 2.22 m2 Indication: Atrial Fibrillation Examination: BERNARDINO/Limited Doppler/CFI, Agitated Saline Image Quality: Fair Patient Consent: Informed, written consent was obtained for the procedure Exam Details Contrast: I.V. dose of agitated saline Exam Location: A BERNARDINO was performed in the [place] [employer] without complications Anesthesia Pharyngeal anesthesia with viscous [...] to transverse sinus Procedure Staff Reading Group: [facility] Referring Physician: JALEN LINDER Application Release Manager: ZUHAIR Caban, RDCS Ordering Physician: JOSE MENESES Jose Meneses MD CV ECHO PROCEDURES [...] form. The patient was brought to the union laborer and transesophageal echocardiogram was performed under conscious [...] MD CV ELECTROPHYSIOLOGY PROCEDURES Final Result * (ABNORMAL) Digoxin level (03/03/2025 3:46 AM EDT) Only the most recent of3 resultswithin the time period is included. Digoxin Lvl 0.6(L) 0.7 - 2 ng/mL 03/03/2025 4:25 AM EDT [facility] ([facility]) Blood Venous blood specimen / Unknown Venipuncture / Unknown 03/03/2025 3:46 AM EDT 03/03/2025 3:57 AM EDT Ruth Hernandez MD LAB BLOOD ORDERABLES Final Resul t [facility] ([facility]) [address] [place] [address] * (ABNORMAL) Urinalysis (03/02/2025 2:48 PM EDT) Color, Urine Yellow Colorless, Yellow, Light-Yellow 03/02/2025 3:00 PM EDT [facility] Clarity, Urine Clear Clear 03/02/2025 3:00 PM EDT [facility] ([facility]) pH, Urine 6.5 5.0 - 8.0 pH 03/02/2025 3:00 PM EDT [facility] ([facility]) Leukocytes, Urine Negative Negative 03/02/2025 3:00 PM EDT [facility] ([facility]) Nitrite, Urine Negative Negative 03/02/2025 3:00 PM EDT [facility] ([facility]) Protein, Urine Negative Negative mg/dL 03/02/2025 3:00 PM EDT [facility] ([facility]) Glucose, Urine Normal Normal mg/dL 03/02/20 25 3:00 PM EDT [facility] ([facility]) Bilirubin, Urine Negative Negative 03/02/2025 3:00 PM EDT [facility] ([facility]) Specific [place], Urine 1.016 1.010 - 1.030 03/02/2025 3:00 PM EDT [facility] ([facility]) Ketones, Urine Negative Negative mg/dL 03/02/2025 3:00 PM EDT [facility] ([facility]) Blood, Urine Negative Negative 03/02/2025 3:00 PM EDT [facility] ([facility]) Urobilinogen, Urine >=8.0(A) Normal mg/dL 03/02/2025 3:00 PM EDT [facility] ([facility]) Urine Urine specimen obtained by clean catch procedure / Unknown Non-blood Collection / Unknown 03/02/2025 2:48 PM EDT 03/02/2025 2:52 PM EDT Narrative [facility] ([facility]) - 03/02/2025 3:00 PM EDT Microscopics not performed on urines with negative chemical reactions unless requested on original order. us Ruth Hernandez MD LAB URINE ORDERABLES Final Resul t [facility] ([facility]) [address] [place] [address] * LIMITED ECHO (TTE) W/ LIMITED DOPPLER, COLOR FLOW AND IMAGING AGENT (03/02/2025 12:33 PM EDT) Anatomical Region Laterality Modality Other 03/02/2025 12:0 2 PM EDT Narrative 03/02/2025 3:32 PM EDT 1 1 [facility] Heart Station [address] [place] [address] [phone] (fax) Echocardiogram-[facility] Name: LINDSAY PINTO Study Date: 03/02/2025 12:02 PM B/P: 111 mmHg/69 mmHg HR: 84 bpm Date of : 1965 Location: [facility] Height: 68 in. Age: 59 year(s) Patient [...] minimal pericardial effusion. Procedure Staff Reading Group: [facility] Referring Physician: JALEN LINDER Application Release Manager: ZUHAIR Caban, RDCS Ordering Physician: RUTH HERNANDEZ Procedure Note Hugo Rojas MD - 03/02/2025 1 1 [facility] Heart Station [address] [place] [address] [phone] (fax) Echocardiogram-[facility] Name: LINDSAY PINTO Study Date: 03/02/2025 12:02 PM B/P: 111 mmHg/69 mmHg HR: 84 bpm Date of : 1965 Location: [facility] Height: 68 in. Age: 59 year(s) Patient Room: 4094 Weight: 247 lb. Gender: Male Patient Status: [...] minimal pericardial effusion. Procedure Staff Reading Group: [facility] Referring Physician: JALEN LINDER Application Release Manager: ZUHAIR Caban, RDCS Ordering Physician: RUTH HERNANDEZ Ruth Hernandez MD CV ECHO PROCEDURES Final Result * (ABNORMAL) Reticulocyte panel (02/26/2025 11:48 AM EDT) Retic Ct Abs 0.0781 0.0250 - 0.1000 10*6/uL 02/26/2025 2:07 PM EDT [facility] ([facility]) Retic Ct Pct 2.79(H) 0.50 - 1.80 % 02/26/2025 2:07 PM EDT [facility] ([facility]) Immature Reticulocyte Fraction % 36.5(H) 2 - 16 % 02/26/2025 2:07 PM EDT [facility] ([facility]) Reticulocyte Hemoglobin 33.0 28.0 - 36.0 pg 02/26/2025 2:07 PM EDT [facility] ([facility]) Blood Venous blood specimen / Unknown Existing Catheter / Unknown 02/26/2025 11:48 AM EDT 02/26/2025 12:00 PM EDT Ruth Hernandez MD LAB BLOOD ORDERABLES Final Resul t [facility]) [address] [place] [address] * (ABNORMAL) Iron and TIBC (02/26/2025 5:13 AM EDT) Iron 20(L) 50 - 212 ug/dL 02/26/2025 12:38 PM EDT [facility] ([facility]) TIBC 227(L) 250 - 450 ug/dL 02/26/2025 12:38 PM EDT [facility] ([facility]) Iron Saturation 9(L) 20 - 50 % 12:38 PM EDT [facility] ([facility]) UIBC 207.0 155.0 - 355.0 ug/dL 02/26/2025 12:38 PM EDT [facility] ([facility]) Blood Arterial blood specimen / Unknown Existing Catheter / Unknown 02/26/2025 5:13 AM EDT 02/26/2025 5:36 AM EDT us Ruth Hernandez MD LAB BLOOD ORDERABLES Final Resul t [facility]) [address] [place] [address] * Folate (02/26/2025 5:13 AM EDT) Folate 17.66 6.6 - 1,000 ng/mL 02/26/2025 1:05 PM EDT [facility] ([facility]) Blood Arterial blood specimen / Unknown Existing Catheter / Unknown 02/26/2025 5:13 AM EDT 02/26/2025 5:36 AM EDT us Ruth Hernandez MD LAB BLOOD ORDERABLES Final Resul t Performing Organization Address City/[facility]/ZIP Co de Phone Number [facility]) [address] [place] [phone] * Ferritin (02/26/2025 5:13 AM EDT) Ferritin 234.0 24.0 - 336.0 ng/mL 02/26/2025 1:05 PM EDT [facility]) Blood Arterial blood specimen / Unknown Existing Catheter / Unknown 02/26/2025 5:13 AM EDT 02/26/2025 5:36 AM EDT us Ruth Hernandez MD LAB BLOOD ORDERABLES Final Resul t [facility]) [address] [place] [address] * (ABNORMAL) Vitamin B12 (02/26/2025 5:13 AM EDT) Vitamin B-12 1,129(H) 180 - 914 pg/mL 02/26/2025 1:05 PM EDT [facility] ([facility]) Comment: REFERENCE RANGES: 180-914 pg/mL Normal 145-179 pg/mL Indeterminate <145 pg/mL Deficient Blood Arterial blood specimen / Unknown Existing Catheter / Unknown 02/26/2025 5:13 AM EDT 02/26/2025 5:36 AM EDT us Ruth Hernandez MD LAB BLOOD ORDERABLES Final Resul t [facility] ([facility]) [address] [place] [address] * Transfuse RBC (02/25/2025 12:11 PM EDT) us Ruth Hernandez MD BLOOD TRANSFUSION ORDERABLES Fin al Result [...] the uncomplicated intravenous administration of 100 mL Ltmfmzeel547. 3-D maximum intensity projection reconstructions constructed underconcurrent [...] signed: Daniel Diaz MD. Autumn Linder MD IM CT PROCEDURES Final Result * (ABNORMAL) Hemoglobin and hematocrit, blood (02/25/2025 9:04 AM EDT) Only the most recent of3 resultswithin the time period is included. Hemoglobin 7.9(L) 13.0 - 17.0 g/dL 02/25/2025 9:20 AM EDT [facility] ([facility]) Hematocrit 22.8(L) 39.0 - 50.0 % 02/25/2025 9:20 AM EDT [facility] ([facility]) Blood Arterial blood specimen / Unknown Existing Catheter / Unknown 02/25/2025 9:04 AM EDT 02/25/2025 9:12 AM EDT us Ruht Hernandez MD LAB BLOOD ORDERABLES Final Resul t [facility] ([facility]) [address] [place] [address] * (ABNORMAL) Urinalysis with microscopic (02/24/2025 10:52 AM EDT) Color, Urine Yellow Colorless, Yellow, Light-Yellow 02/24/2025 11:28 AM EDT [facility] ([facility]) Clarity, Urine Cloudy(A) Clear 02/24/2025 11:28 AM EDT [facility] ([facility]) Specific [place], Urine 1.036(H) 1.010 - 1.030 02/24/2025 11:28 AM T [facility] ([facility]) pH, Urine 5.5 5.0 - 8.0 pH 02/24/2025 11:28 AM T [facility] ([facility]) Leukocytes, Urine Moderate(A) Negative 02/24/2025 11:28 AM T [facility] ([facility]) Nitrite, Urine Negative Negative 02/24/2025 11:28 AM T [facility] ([facility]) Protein, Urine 30(A) Negative mg/dL 02/24/2025 11:28 AM EDT [facility] ([facility]) Glucose, Urine Normal Normal mg/dL 02/24/2025 11:28 AM T [facility] ([facility]) Bilirubin, Urine Negative Negative 02/24/2025 11:28 AM T [facility] ([facility]) Ketones, Urine Negative Negative mg/dL 02/24/2025 11:28 AM T [facility] ([facility]) Urobilinogen, Urine Normal Normal mg/dL 02/24/2025 11:28 AM EDT [facility] ([facility]) Blood, Urine Large(A) Negative 02/24/2025 11:28 AM EDT [facility] ([facility]) RBC, Urine >20(A) None Seen, 0-2 /HPF 02/24/2025 11:28 AM EDT [facility] ([facility]) WBC, Urine 21-50(A) None Seen, 0-2 /HPF 02/24/2025 11:28 AM EDT [facility] ([facility]) Squamous Epithelial, Urine Moderate(A) None Seen, Occasional, Few /LPF 02/24/2025 11:28 AM EDT [facility] ([facility]) Mucus, Urine Moderate(A) None Seen, Occasional, Few /LPF 02/24/2025 11:28 AM EDT [facility] ([facility]) Casts, Urine Present(A) None Seen /LPF 02/24/2025 11:28 AM EDT [facility] ([facility]) Hyaline Casts, UA 3-5(A) 0 - 2 /LPF 02/24/2025 11:28 AM EDT [facility] ([facility]) Urine Urine specimen obtained by clean catch procedure / Unknown Non-blood Collection / Unknown 02/24/2025 10:52 AM EDT 02/24/2025 11:05 AM EDT us Matilda Sheppard MD LAB URINE ORDERABLES Final Resu lt [facility]) [address] [place] [address] * Sodium, urine, random (02/24/2025 10:52 AM EDT) Sodium, Ur 15 mmol/L 02/24/2025 11:31 AM EDT [facility] ([facility]) Urine Urine specimen obtained by clean catch procedure / Unknown Non-blood Collection / Unknown 02/24/2025 10:52 AM EDT 02/24/2025 11:05 AM EDT us Matilda Sheppard MD LAB URINE ORDERABLES Final Resu lt [facility] ([facility]) [address] [place] [address] * Potassium, urine, random (02/24/2025 10:52 AM EDT) Potassium, Ur 107 mmol/L 02/24/2025 11:31 AM EDT [facility] ([facility]) Urine Urine specimen obtained by clean catch procedure / Unknown Non-blood Collection / Unknown 02/24/2025 10:52 AM EDT 02/24/2025 11:05 AM EDT Matilda Sheppard MD LAB URINE ORDERABLES Final Resu lt [facility] ([facility]) [address] [place] [address] * Osmolality, urine (02/24/2025 10:52 AM EDT) Osmolality, Urine 686 80 - 1300 mOsm/kg 02/24/2025 5:40 PM EDT [facility] Comment:Test Performed by [facility] [employer] [address] [place] [id number] - Txtseldt 02/24/2025 17:40 Urine Urine specimen obtained by clean catch procedure / Unknown Non-blood Collection / Unknown 02/24/2025 10:52 AM EDT 02/24/2025 11:05 AM EDT Matilda Sheppard MD LAB URINE ORDERABLES Final Resu lt [facility] [address] [place] [address] * Creatinine, urine, random (02/24/2025 10:52 AM EDT) Creatinine, Ur 170.0 26 - 299 mg/dL 02/24/2025 11:31 AM EDT [facility] ([facility]) Urine Urine specimen obtained by clean catch procedure / Unknown Non-blood Collection / Unknown 02/24/2025 10:52 AM EDT 02/24/2025 11:05 AM EDT Matilda Sheppard MD LAB URINE ORDERABLES Final Resu lt Performing Organization Address City/[facility]/ZIP Co de Phone Number [facility] ([facility]) [address] [place] [address] * (ABNORMAL) Chloride, urine, random (02/24/2025 10:52 AM EDT) Chloride, Ur <15.0(L) 110 - 250 mmol/L 02/24/2025 11:31 AM EDT [facility] ([facility]) Urine Urine specimen obtained by clean catch procedure / Unknown Non-blood Collection / Unknown 02/24/2025 10:52 AM EDT 02/24/2025 11:05 AM EDT Matilda Sheppard MD LAB URINE ORDERABLES Final Resu lt Performing Organization Address [facility] Co de Phone Number [facility] ([facility]) [address] [place] [address] * US renal complete (02/24/2025 10:09 AM [...] signed: INES JORDAN MD. Matilda Sheppard MD [facility] US PROCEDURES Final Result * Blood culture, peripheral #1 (02/23/2025 12:04 PM EDT) Only the most recent of4 resultswithin the time period is included. Blood Culture No growth at 5 days [place] 02/28/2025 1:01 PM EDT [facility] ([facility]) Blood Venous blood specimen / Unknown Venipuncture / Unknown 02/23/2025 12:04 PM EDT 02/23/2025 12:19 PM EDT Ruth Hernandez MD LAB MICROBIOLOGY - GENERAL ORDER LAURA Final Result [facility] ([facility]) [address] [place] [address] * Lactic Acid with 4 hour reflex (02/23/2025 11:59 AM EDT) Only the most recent of3 resultswithin the time period is included. Lactate 1.8 0.5 - 2.2 mmol/L 02/23/2025 12:53 PM EDT [facility] ([facility]) Blood Venous blood specimen / Unknown Existing Catheter / Unknown 02/23/2025 11:59 AM EDT 02/23/2025 12:19 PM EDT us Ruth Hernandez MD LAB BLOOD ORDERABLES Final Resul t [facility] ([facility]) [address] [place] [address] * (ABNORMAL) Basic metabolic panel (02/23/2025 12:07 AM EDT) Only the most recent of4 resultswithin the time period is included. Sodium 137 136 - 145 mmol/L 02/23/2025 12:38 AM EDT [facility] ([facility]) Potassium 4.5 3.5 - 5.1 mmol/L 02/23/2025 12:38 AM EDT [facility] ([facility]) Chloride 102 98 - 107 mmol/L 02/23/2025 12:38 AM EDT [facility] ([facility]) CO2 25 21 - 31 mmol/L 02/23/2025 12:38 AM EDT [facility] ([facility]) BUN 35(H) 7 - 25 mg/dL 02/23/2025 12:38 AM EDT [facility] ([facility]) Creatinine 2.01(H) 0.70 - 1.30 mg/dL 02/23/2025 12:38 AM EDT [facility] ([facility]) Glucose 128(H) 70 - 100 mg/dL 02/23/2025 12:38 AM EDT [facility] ([facility]) Calcium 9.1 8.6 - 10.3 mg/dL 02/23/2025 12:38 AM EDT [facility] ([facility]) Anion Gap 15 7 - 20 mmol/L 02/23/2025 12:38 AM EDT [facility] ([facility]) eGFR 37.7(L) >60.0 mL/min/1. 73m*2 02/23/2025 12:38 AM EDT [facility] ([facility]) Comment:[facility] s estimated glomerular filtration rate (eGFR) will [...] BUN/Creatinine Ratio 17.4 01/30 12:38 AM EDT [facility] ([facility]) Blood Venous blood specimen / Unknown Existing Catheter / Unknown 02/23/2025 12:07 AM EDT 02/23/2025 12:13 AM EDT us Ruth Hernandez MD LAB BLOOD ORDERABLES Final Resul t [facility]) [address] [place], [place] [id number] * XR chest 1 view (02/22/2025 7:06 [...] Electronically signed: Davy Garcia M.D.. us Ruth Hernandez MD IMG XR PROCEDURES Final Result * (ABNORMAL) Urinalysis microscopic with reflex culture (02/22/2025 4:15 PM EDT) RBC, Urine >20(A) None Seen, 0-2 /HPF 02/22/2025 4:42 PM EDT [facility] ([facility]) WBC, Urine None Seen None Seen, 0-2 /HPF 02/22/2025 4:42 PM EDT [facility] ([facility]) Squamous Epithelial, Urine None Seen None Seen, Occasional , Few /LPF 02/22/2025 4:42 PM EDT [facility] ([facility]) Urine (Urine, Tello Catheter) Non-blood Collection / Unknown 02/22/2025 4:15 PM EDT 02/22/2025 4:20 PM EDT us Suleiman Corcoran MD LAB URINE ORDERABLES Final Res ult [facility] ([facility]) [address] [place] [address] * (ABNORMAL) Urinalysis with reflex culture (02/22/2025 4:15 PM EDT) Color, Urine Red(A) Colorless, Yellow, Light-Yellow 02/22/2025 4:42 PM EDT [facility] ([facility]) Clarity, Urine Turbid(A) Clear 02/22/2025 4:42 PM EDT [facility] ([facility]) pH, Urine 5.5 5.0 - 8.0 pH 02/22/2025 4:42 PM EDT [facility] ([facility]) Leukocytes, Urine Trace(A) Negative 02/22/2025 4:42 PM EDT [facility] ([facility]) Nitrite, Urine Negative Negative 02/22/2025 4:42 PM EDT [facility] ([facility]) Protein, Urine 30(A) Negative mg/dL 02/22/2025 4:42 PM EDT [facility] ([facility]) Glucose, Urine Normal Normal mg/dL 02/22/2025 4:42 PM EDT [facility] ([facility]) Bilirubin, Urine Negative Negative 02/22/2025 4:42 PM EDT [facility] ([facility]) Specific [place], Urine >1.050(H) 1.010 - 1.030 02/22/2025 4:42 PM EDT [facility] ([facility]) Ketones, Urine Negative Negative mg/dL 02/22/2025 4:42 PM EDT [facility] ([facility]) Blood, Urine Large(A) Negative 02/22/2025 4:42 PM EDT [facility] ([facility]) Urobilinogen, Urine Normal Normal mg/dL 02/22/2025 4:42 PM EDT [facility] ([facility]) Urine (Urine, Tello Catheter) Non-blood Collection / Unknown 02/22/2025 4:15 PM EDT 02/22/2025 4:20 PM EDT us Suleiman Corcoran MD LAB URINE ORDERABLES Final Res ult [facility] ([facility]) [address] [place] [address] * CT abdomen pelvis w IV contrast [...] 1:14 PM Electronically signed: Daniel Diaz MD. Prabhu Chavez MD IMG CT PROCEDURES Final Result * CT chest w IV contrast (02/22/2025 [...] present. Bilateral pleural effusions. There is a [id number] pericardial effusion. Aorta is unremarkable. Mild to [...] scarring present. Bilateral pleural effusions.There is a [id number] pericardial effusion. Aorta is unremarkable. Mildto moderate coronary artery calcifications. Pulmonary arteries are ofnormal caliber. Postoperative changes GE junction with hiatal hernia. No lymphadenopathy. Degenerative changes. IMPRESSION: *Bibasilar consolidation, atelectasis, pleural effusions. *Small to moderate pericardial effusion, consider echocardiography. *Please see above for further details. Electronically signed: Keyur Romero MD. us Ruth Hernandez MD IMG CT PROCEDURES Final Result * Red Top (02/22/2025 11:49 AM EDT) Extra Tube Hold for add-ons. 02/22/2025 1:01 PM EDT [facility] ([facility]) Comment:Auto resulted. Blood Venous blood specimen / Unknown 02/22/2025 11:49 AM EDT 02/22/2025 11:55 AM EDT us Ruth Hernandez MD LAB BLOOD ORDERABLES Final Resul t [facility] ([facility]) [address] [place] [address] * (ABNORMAL) Protime-INR (02/22/2025 11:49 AM EDT) Only the most recent of2 resultswithin the time period is included. Protime 17.9(H) 12.3 - 14.8 Seconds 02/22/2025 2:35 PM EDT [facility] ([facility]) INR 1.47(H) 0.90 - 1.10 02/22/2025 2:35 PM EDT [facility] ([facility]) Comment: ACCCP RECOMMENDED [...] MD LAB BLOOD ORDERABLES Final Resu lt [facility] ([facility]) [address] [place], [place] [id number] * (ABNORMAL) POCT glucose meter (02/22/2025 11:34 AM EDT) Only the most recent of2 resultswithin the time period is included. Glucose POC 125(H) 70 - 105 mg/dL 02/22/2025 11:44 AM EDT [facility] ([facility]) Comment:[email or web address] Blood Capillary blood specimen / Unknown 02/22/2025 11:34 AM EDT 02/22/2025 11:44 AM EDT Narrative [facility] ([facility]) - 02/22/2025 11:44 AM EDT Waived Testing in the ED is performed under the ED CLIA certificate #[id number]. us Ruth Hernandez MD LAB BLOOD ORDERABLES Final Resul t [facility] ([facility]) [address] [place] [address] * Prepare RBC: 1 Units (02/22/2025 7:31 AM EDT) PRODUCT CODE [id number] [facility] Unit Number [id number] [facility] ABO O [facility] Unit Rh POS [facility] Crossmatch Interpretation COMP [facility] Dispense Status TR [facility] Blood Expiration Date [id number] [facility] Product Blood Type 5100 [facility] Unit Volume 300 mL [facility] Other 02/22/2025 7:31 AM EDT us Ruth Hernandez MD BLOOD BANK PRODUCT ORDERABLES Fi nal Result [facility] * Type and screen (02/22/2025 7:07 AM EDT) ABO Grouping O 02/22/2025 8:29 AM EDT [facility] Rh Type POS 02/22/2025 8:29 AM EDT [facility] Ab Scrn NEG 02/22/2025 8:29 AM EDT [facility] Blood Venous blood specimen / Unknown Venipuncture / Unknown 02/22/2025 7:07 AM EDT 02/22/2025 7:11 AM EDT us Suleiman Corcoran MD LAB BLOOD BANK TEST ORDERABLES Final Result [facility] * (ABNORMAL) Hepatic function panel (02/22/2025 7:00 AM EDT) Total Bilirubin 4.8(H) 0.3 - 1.0 mg/dL 02/22/2025 11:47 AM EDT [facility] ([facility]) Bilirubin, Direct 1.1(H) 0 - 0.2 mg/dL 02/22/2025 11:47 AM EDT [facility] ([facility]) Alkaline Phosphatase 72 34 - 104 U/L 02/22/2025 11:47 AM EDT [facility] ([facility]) AST 22 13 - 39 U/L 02/22/2025 11:47 AM EDT [facility] ([facility]) ALT (SGPT) 30 7 - 52 U/L 02/22/2025 11:47 AM EDT [facility] ([facility]) Total Protein 6.1 6.0 - 8.3 g/dL 02/22/2025 11:47 AM EDT [facility] ([facility]) Albumin 4.0 3.5 - 5.7 g/dL 02/22/2025 11:47 AM EDT [facility] ([facility]) Blood Venous blood specimen / Unknown 02/22/2025 7:00 AM EDT 02/22/2025 7:12 AM EDT us Ruth Hernandez MD LAB BLOOD ORDERABLES Final Resul t [facility] ([facility]) [address] [place] [address] * (ABNORMAL) High Sensitivity Troponin I (02/22/2025 6:58 AM EDT) Only the most recent of7 resultswithin the time period is included. High Sensitivity Troponin I 27(H) <20 ng/L 02/22/2025 7:30 AM EDT [facility] ([facility]) Blood Venous blood specimen / Unknown Venipuncture / Unknown 02/22/2025 6:58 AM EDT 02/22/2025 7:30 AM EDT us Suleiman Corcoran MD LAB BLOOD ORDERABLES Final Res ult [facility] ([facility]) [address] [place] [address] * (ABNORMAL) CBC auto differential (02/22/2025 6:58 AM EDT) Only the most recent of2 resultswithin the time period is included. Auto WBC 10.73(H) 4.00 - 10.60 10*3/uL 02/22/2025 7:10 AM EDT [facility] ([facility]) RBC 4.55 4.20 - 5.70 10*6/uL 02/22/2025 7:10 AM EDT [facility] ([facility]) Hemoglobin 14.0 13.0 - 17.0 g/dL 02/22/2025 7:10 AM EDT [facility] ([facility]) Hematocrit 42.5 39.0 - 50.0 % 02/22/2025 7:10 AM EDT [facility] ([facility]) MCV 93.4 82.0 - 98.0 fL 02/22/2025 7:10 AM EDT [facility] ([facility]) MCH 30.8 27.0 - 33.0 pg 02/22/2025 7:10 AM EDT [facility] ([facility]) MCHC 32.9 32.0 - 35.0 g/dL 02/22/2025 7:10 AM EDT [facility] ([facility]) RDW 15.9(H) 11.5 - 15.0 % 02/22/2025 7:10 AM EDT [facility] ([facility]) Neutrophils % 81.9(H) 40.0 - 72.0 % 02/22/2025 7:10 AM EDT [facility] ([facility]) Lymphocytes % 10.6(L) 20.0 - 45.0 % 02/22/2025 7:10 AM EDT [facility] ([facility]) Monocytes % 6.8 5.0 - 12.0 % 02/22/2025 7:10 AM EDT [facility] ([facility]) Eosinophils % 0.0 0.0 - 6.0 % 02/22/2025 7:10 AM EDT [facility] ([facility]) Basophils % 0.2 0.0 - 1.0 % 02/22/2025 7:10 AM EDT [facility] ([facility]) Neutrophils Absolute 8.79(H) 1.60 - 7.60 10*3/uL 02/22/2025 7:10 AM EDT [facility] ([facility]) Lymphocytes Absolute 1.14(L) 1.20 - 4.00 10*3/uL 02/22/2025 7:10 AM EDT [facility] ([facility]) Monocytes Absolute 0.73 0.10 - 1.00 10*3/uL 02/22/2025 7:10 AM EDT [facility] ([facility]) Eosinophils Absolute 0.00 0.00 - 0.50 10*3/uL 02/22/2025 7:10 AM EDT [facility] ([facility]) Basophils Absolute 0.02 0.00 - 0.20 10*3/uL 02/22/2025 7:10 AM EDT [facility] ([facility]) Platelets 224 150 - 400 10*3/uL 02/22/2025 7:10 AM EDT [facility] ([facility]) nRBC % 0.0 0 % 02/22/2025 7:10 AM T [facility] ([facility]) Immature Granulocytes % 0.5 0.0 - 1.0 % 02/22/2025 7:10 AM T [facility] ([facility]) Immature Granulocytes Absolute 0.05 0.00 - 0.20 10*3/uL 02/22/2025 7:10 AM T [facility] ([facility]) Blood Venous blood specimen / Unknown Venipuncture / Unknown 02/22/2025 6:58 AM EDT 02/22/2025 7:10 AM EDT us Suleiman Corcoran MD LAB BLOOD ORDERABLES Final Res ult [facility] ([facility]) [address] [place] [address] * CT abdomen pelvis wo IV contrast [...] signed: Susana Miller. us Suleiman Corcoran MD [facility] CT PROCEDURES Final Result * TSH3 Reflex to FT4 (02/18/2025 6:46 PM EDT) TSH 3.22 0.34 - 5.60 mIU/L 02/18/2025 8:07 PM EDT [facility] ([facility]) Blood Venous blood specimen / Unknown Venipuncture / Unknown 02/18/2025 6:46 PM EDT 02/18/2025 7:26 PM EDT [facility] BLOOD ORDERABLES Final Resu lt [facility] ([facility]) [address] [place], [place] [id number] * (ABNORMAL) B-type natriuretic peptide (02/18/2025 6:46 PM EDT) BNP 491(H) 0 - 100 pg/mL 02/18/2025 7:56 PM EDT [facility] ([facility]) Blood Venous blood specimen / Unknown Venipuncture / Unknown 02/18/2025 6:46 PM EDT 02/18/2025 7:26 PM EDT [facility] BLOOD ORDERABLES Final Resu lt [facility] ([facility]) [address] [place], [place] [id number] * Lactic acid, plasma (02/18/2025 6:46 PM EDT) Lactate 1.1 0.5 - 2.2 mmol/L 02/18/2025 7:46 PM EDT [facility] ([facility]) Blood Venous blood specimen / Unknown Venipuncture / Unknown 02/18/2025 6:46 PM EDT 02/18/2025 7:24 PM EDT [facility] BLOOD ORDERABLES Final Resu lt [facility] ([facility]) [address] [place] [address] from Last 3 Months Insurance [facility] Advance Directives * Full Code (Latest Code Status on File) Date Activated Date Inactivated Comments 02/18/2025 6:59 PM 03/05/2025 7:58 PM Care Teams Service Clerk Relationship Specialty Start Date End Date Jalen Linder DO [address] [place] [address] PCP - General 05/03/22
--- OUTSIDE RECORDS SUMMARY | 2025-03-10 18:44 | XMS_ITS | CCD ---
Author Organization [facility] Care Team Providers Care Broth Mixer Name Role Phone ANIBAL, DR KINGSLEY Mariee [...] HOUSE, DR TINSLEY Primary Care Unavailable HOUSE, DO LAUREANO Manuel Attending Unavailable HOUSE, LAUREANO Manuel Primary Care Unavailable HOUSE, DO LAUREANO Manuel Attending Unavailable HOUSE, LAUREANO Manuel Primary Care Unavailable HOUSE, LAUREANO Manuel Primary Care Unavailable HOUSE, DO LAUREANO Manuel Attending Unavailable FEROZSARAH Referring Unavailable SAFI, RUTH Referring Unavailable RATNAM, EDNA Referring Unavailable NAZZAL, CATARINA Referring Unavailable SAFI, RUTH Referring Unavailable SAFI, RUTH Referring Unavailable ELTAHAWY, EHAB Attending Unavailable ALMAS, SAMAR Referring Unavailable KENNEY, KARINA Saenz Referring Unavailable HORANI, SIMBA Referring Unavailable SAFI, RUTH Admitting Unavailable SAFI, RUTH Attending Unavailable PIRKL, SHEELA Referring Unavailable SAFI, RUTH Referring Unavailable CORCORAN, IMELDA CHUL Referring Unavailable OCRCORAN, IMELDA CHUL Referring Unavailable SAFI, RUTH Referring Unavailable SAFI, RUTH Referring Unavailable PIRKL, SHEELA Referring Unavailable Problems Active Problems Problem Classification Problem Date Documented Da te Episodic/Chronic Cardiac dysrhythmias (4 sources) Unspecified atrial fibrillation; Translations: [Paroxysmal atrial fibrillation] Onset: 02-18-2025 Chronic Congestive heart failure; nonhypertensive (4 sources) Acute systolic (congestive) heart failure; Translations: [Chronic systolic (congestive) heart failure] Onset: 02-18-2025 Chronic Coronary atherosclerosis and other heart disease (2 sources) Unstable angina; Translations: [Unstable angina] Onset: 02-18-2025 Chronic Headache; including migraine (1 source) Headache; including migraine; Translations: [HEADACHE UNSPECIFIED] Onset: 05-23-2021 Hyperplasia of prostate (2 sources) Benign prostatic hyperplasia without lower urinary tract symptoms; Translations: [Benign prostatic hyperplasia without lower urinary tract symptoms] Onset: 02-18-2025 Chronic Other gastrointestinal disorders (2 sources) Bariatric surgery status; Translations: [Bariatric surgery status] Onset: 02-18-2025 Episodic Past or Other Problems Problem Classification Problem Date Documented Da te Episodic/Chronic Other aftercare (1 source) Other terminal supervisor (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) drug therapy; Translations: [OTH SENIOR LIVING CURRENT DRUG THERAPY] Onset: 05-23-2021 Episodic Other nervous system disorders (4 sources) Pruitt's palsy; 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] Onset: 05-30-2021 Episodic Other skin disorders (3 sources) Localized swelling, mass and lump, head; Translations: [LOCALIZED SWELLING MASS AND LUMP HEAD] Onset: 05-21-2021 Episodic Residual codes; unclassified (2 sources) Edema, unspecified; Translations: [Edema, unspecified] Onset: 06-01-2024 Episodic Results Test Name Value Interpretation Reference Range Facility 36on 03-08-2025 36 Normal [facility] Outside Recordson 03-08-2025 Outside Records [id number] 10 [id number] Normal [facility] Telephoneon 03-08-2025 Telephone Normal [facility] 30on 03-05-2025 30 The patient is Moderately Stable - Low risk of patient condition declining or worsening The patient's goals for the shift include Comfort and rest The clinical goals for the shift include VSS and safety Normal [facility] CBCon 03-05-2025 Erythrocyte distribution width (RBC) [Ratio] 16.3 % High 11.5-15.0 [facility] Comment on above: Performed By: #### L [id number] ####[facility] ([facility])[address] [place] [address] ERYTHROCYTE MEAN CORPUSCULAR HEMOGLOBIN CONCENTRATION (G/DL) BY AUTOMATED 33.5 g/dL Normal 32.0-35.0 [facility] Comment on above: Performed By: #### L [id number] ####[facility] ([facility] [place] [address] Hematocrit (Bld) [Volume fraction] 24.2 % Low 39.0-50.0 [facility] Comment on above: Performed By: #### L [id number] ####[facility] ([facility] [place] [address] Hemoglobin (Bld) [Mass/Vol] 8.1 g/dL Low 13.0-17.0 [facility] Comment on above: Performed By: #### L [id number] ####[facility] ([facility] [address] MCH (RBC) [Entitic mass] 30.1 pg Normal 27.0-33.0 [facility] Comment on above: Performed By: #### L [id number] ####[facility] ([facility] [place] [address] MCV (RBC) [Entitic vol] 90.0 fL Normal 82.0-98.0 [facility] Comment on above: Performed By: #### L [id number] ####[facility] ([facility] [place] [address] PLATELETS (10*3/UL) IN BLOOD AUTOMATED COUNT 399 10*3/uL Normal 150-400 [facility] Comment on above: Performed By: #### L [id number] ####[facility] ([facility] [place] [address] RBC (Bld) [#/Vol] 2.69 10*6/uL Low 4.20-5.70 [facility] Comment on above: Performed By: #### L [id number] ####[facility] ([facility] [place] [address] WBC (Bld) [#/Vol] 7.45 10*3/uL Normal 4.00-10.60 [facility] Comment on above: Performed By: #### L [id number] ####[facility] ([facility] [place] [address] COMPREHENSIVE METABOLIC PANE Rogelio 03-05-2025 Albumin [Mass/Vol] 3.0 g/dL Low 3.5-5.7 [facility] Comment on above: Performed By: #### L [id number] ####[facility] ([facility] [place] [address] ALP [Catalytic activity/Vol] 60 U/L Normal 34-104 [facility] Comment on above: Performed By: #### L [id number] ####[facility] ([facility] [place] [address] ALT [Catalytic activity/Vol] 15 U/L Normal 7-52 [facility] Comment on above: Performed By: #### L [id number] ####[facility] ([facility] [place] [address] Anion gap [Moles/Vol] 9 mmol/L Normal 7-20 [facility] Comment on above: Performed By: #### L [id number] ####[facility] ([facility] [place] [address] AST [Catalytic activity/Vol] 16 U/L Normal 13-39 [facility] Comment on above: Performed By: #### L [id number] ####[facility] ([facility] [place] [address] Bilirubin [Mass/Vol] 3.8 mg/dL High 0.3-1.0 [facility] Comment on above: Performed By: #### L [id number] ####[facility] ([facility] [place] [address] Calcium [Mass/Vol] 8.1 mg/dL Low 8.6-10.3 [facility] Comment on above: Performed By: #### L [id number] ####[facility] ([facility] [place] [address] Chloride [Moles/Vol] 103 mmol/L Normal 98-107 [facility] Comment on above: Performed By: #### L [id number] ####[facility] ([facility] [place] [address] CO2 [Moles/Vol] 24 mmol/L Normal 21-31 [facility] Comment on above: Performed By: #### L [id number] ####[facility] ([facility] [place] [address] Creatinine [Mass/Vol] 0.73 mg/dL Normal 0.70-1.30 [facility] Comment on above: Performed By: #### L [id number] ####[facility] ([facility] [place] [address] GLOMERULAR FILTRATION RATE ML/MIN/1.73 SQ M.PREDICTED 105.5 mL/min/1.73m*2 Normal >60.0 [facility] Comment on above: Result Comment: [facility]???s estimated glomerular filtration rate (eGFR) will no longer include consideration of race in its calculation. The National Kidney Foundation???s eGFR Task Force developed new recommendations for [...] disproportionately affect any one group of individuals. Performed By: #### L [id number] ####[facility] ([facility])[address] [place] [address] Glucose [Mass/Vol] 85 mg/dL Normal 70-100 [facility] Comment on above: Performed By: #### L [id number] ####[facility] ([facility])[address] [place] [address] Potassium [Moles/Vol] 3.9 mmol/L Normal 3.5-5.1 [facility] Comment on above: Performed By: #### L [id number] ####[facility] ([facility] [place] [address] Protein [Mass/Vol] 5.2 g/dL Low 6.0-8.3 [facility] Comment on above: Performed By: #### L [id number] ####[facility] ([facility] [place] [address] Sodium [Moles/Vol] 132 mmol/L Low 136-145 [facility] Comment on above: Performed By: #### L [id number] ####[facility] ([facility] [place] [address] Urea nitrogen [Mass/Vol] 13 mg/dL Normal 7-25 [facility] Comment on above: Performed By: #### L [id number] ####[facility] ([facility] [place] [address] UREA NITROGEN/CREATININ E (MASS RATIO) IN SER/PLAS 17.8 Normal [facility] Comment on above: Performed By: #### L [id number] ####[facility] ([facility] [place] [address] DSon 03-05-2025 DS Normal [facility] MAGNESIUMon 03-05-2025 Magnesium [Mass/Vol] 1.9 mg/dL Normal 1.9-2.7 [facility] Comment on above: Performed By: #### L [id number] ####[facility] ([facility] [place] [address] PHOSPHORUSon 03-05-2025 Magnesium [Mass/Vol] 3.0 mg/dL Normal 2.5-5.0 [facility] Comment on above: Performed By: #### L [id number] ####[facility] ([facility] [place] [address] 30on 03-04-2025 30 Normal [facility] 30 The patient is Moderately Stable - Low risk of patient condition declining or worsening The patient's goals for the shift include comfort The clinical goals for the shift include VSS, safety Normal [facility] ANTI-XA (HEPARIN LEVEL)on HEPARIN UNFRACTIONATED (U/ML) IN PPP BY CHROMOGENIC METHOD 0.34 IU/mL Normal 0.3-0.7 [facility] Comment on above: Result Comment: Linda roxaban and Apixaban will interfere with the anti Xa assay used to monitor UFH and LMWH. Performed By: #### L [id number] ####[facility] ([facility])[address] [place] [address] HEPARIN UNFRACTIONATED (U/ML) IN PPP BY CHROMOGENIC METHOD 0.30 IU/mL Normal 0.3-0.7 [facility] Comment on above: Result Comment: [place] roxaban and Apixaban will interfere with the anti Xa assay used to monitor UFH and LMWH. Performed By: #### L [id number] ####[facility] ([facility] [place] [address] CBCon 03-04-2025 Erythrocyte distribution width (RBC) [Ratio] 16.3 % High 11.5-15.0 [facility] Comment on above: Performed By: #### L [id number] ####[facility] ([facility] [place] [address] ERYTHROCYTE MEAN CORPUSCULAR HEMOGLOBIN CONCENTRATION (G/DL) BY AUTOMATED 34.1 g/dL Normal 32.0-35.0 [facility] Comment on above: Performed By: #### L [id number] ####[facility] ([facility])[address] [place] [address] Hematocrit (Bld) [Volume fraction] 22.6 % Low 39.0-50.0 [facility] Comment on above: Performed By: #### L [id number] ####[facility] ([facility])[address] [facility] [address] Hemoglobin (Bld) [Mass/Vol] 7.7 g/dL Low 13.0-17.0 [facility] Comment on above: Performed By: #### L [id number] ####[facility] ([facility])[address] [facility] [address] MCH (RBC) [Entitic mass] 30.6 pg Normal 27.0-33.0 [facility] Comment on above: Performed By: #### L [id number] ####[facility] ([facility] [place] [address] MCV (RBC) [Entitic vol] 89.7 fL Normal 82.0-98.0 [facility] Comment on above: Performed By: #### L [id number] ####[facility] ([facility] [place] [address] PLATELETS (10*3/UL) IN BLOOD AUTOMATED COUNT 359 10*3/uL Normal 150-400 [facility] Comment on above: Performed By: #### L [id number] ####[facility] ([facility] [place] [address] RBC (Bld) [#/Vol] 2.52 10*6/uL Low 4.20-5.70 [facility] Comment on above: Performed By: #### L [id number] ####[facility] ([facility] [place] [address] WBC (Bld) [#/Vol] 5.41 10*3/uL Normal 4.00-10.60 [facility] Comment on above: Performed By: #### L [id number] ####[facility] ([facility] [place] [address] COMPREHENSIVE METABOLIC PANE Rogelio 03-04-2025 Albumin [Mass/Vol] 2.8 g/dL Low 3.5-5.7 [facility] Comment on above: Performed By: #### L [id number] ####[facility] ([facility] [place] [address] ALP [Catalytic activity/Vol] 55 U/L Normal 34-104 [facility] Comment on above: Performed By: #### L [id number] ####[facility] ([facility] [place] [address] ALT [Catalytic activity/Vol] 17 U/L Normal 7-52 [facility] Comment on above: Performed By: #### L [id number] ####[facility] ([facility])[address] [place] [address] Anion gap [Moles/Vol] 8 mmol/L Normal 7-20 [facility] Comment on above: Performed By: #### L [id number] ####[facility] ([facility])[address] [place] [address] AST [Catalytic activity/Vol] 17 U/L Normal 13-39 [facility] Comment on above: Performed By: #### L [id number] ####[facility] ([facility])[address] [place] [address] Bilirubin [Mass/Vol] 3.7 mg/dL High 0.3-1.0 [facility] Comment on above: Performed By: #### L [id number] ####[facility] ([facility])[address] [place] [address] Calcium [Mass/Vol] 7.7 mg/dL Low 8.6-10.3 [facility] Comment on above: Performed By: #### L [id number] ####[facility] ([facility])[address] [place] [address] Chloride [Moles/Vol] 103 mmol/L Normal 98-107 [facility] Comment on above: Performed By: #### L [id number] ####[facility] ([facility])[address] [place] [address] CO2 [Moles/Vol] 25 mmol/L Normal 21-31 [facility] Comment on above: Performed By: #### L [id number] ####[facility] ([facility])[address] [place] [address] Creatinine [Mass/Vol] 0.66 mg/dL Low 0.70-1.30 [facility] Comment on above: Performed By: #### L [id number] ####[facility] ([facility])[address] [place] [address] GLOMERULAR FILTRATION RATE ML/MIN/1.73 SQ M.PREDICTED 108.7 mL/min/1.73m*2 Normal >60.0 [facility] Comment on above: Result Comment: [facility]???s estimated glomerular filtration rate (eGFR) will no longer include consideration of race in its calculation. The National Kidney Foundation???s eGFR Task Force developed new recommendations for [...] disproportionately affect any one group of individuals. Performed By: #### L [id number] ####[facility] ([facility] [place] [address] Glucose [Mass/Vol] 86 mg/dL Normal 70-100 [facility] Comment on above: Performed By: #### L [id number] ####[facility] ([facility] [place] [address] Potassium [Moles/Vol] 3.8 mmol/L Normal 3.5-5.1 [facility] Comment on above: Performed By: #### L [id number] ####[facility] ([facility] [place] [address] Protein [Mass/Vol] 4.9 g/dL Low 6.0-8.3 [facility] Comment on above: Performed By: #### L [id number] ####[facility] ([facility] [place] [address] Sodium [Moles/Vol] 132 mmol/L Low 136-145 [facility] Comment on above: Performed By: #### L [id number] ####[facility] ([facility] [place] [address] Urea nitrogen [Mass/Vol] 15 mg/dL Normal 7-25 [facility] Comment on above: Performed By: #### L [id number] ####[facility] ([facility] [place] [address] UREA NITROGEN/CREATININ E (MASS RATIO) IN SER/PLAS 22.7 Normal [facility] Comment on above: Performed By: #### L [id number] ####[facility] ([facility] [address] CTA HEART CORONARY W IV CONT RAST W OR WO FFRCTon 03-04-2025 CTA HEART CORONARY W IV CONTRAST W OR WO FFRCT Invalid Interpretation Code [facility] MAGNESIUMon 03-04-2025 Magnesium [Mass/Vol] 2.0 mg/dL Normal 1.9-2.7 [facility] Comment on above: Performed By: #### L [id number] ####[facility] ([facility] [address] NURSNOTEon 03-04-2025 NURSNOTE Noted sinus rhythem [facility]OS[facility]ORUS[facility] 03-04-2025 Magnesium [Mass/Vol] 2.7 mg/dL Normal 2.5-5.0 [facility] Comment on above: Performed By: #### L [id number] ####[facility] ([facility] [address] 30on 03-03-2025 30 Normal [facility] ANTI-XA (HEPARIN LEVEL)on HEPARIN UNFRACTIONATED (U/ML) IN PPP BY CHROMOGENIC METHOD 0.23 IU/mL Low 0.3-0.7 [facility] Comment on above: Result Comment: Linda roxaban and Apixaban will interfere with the anti Xa assay used to monitor UFH and LMWH. Performed By: #### L [id number] ####[facility] ([facility] [place] [address] HEPARIN UNFRACTIONATED (U/ML) IN PPP BY CHROMOGENIC METHOD 0.31 IU/mL Normal 0.3-0.7 [facility] Comment on above: Result Comment: Linda roxaban and Apixaban will interfere with the anti Xa assay used to monitor UFH and LMWH. Performed By: #### L [id number] ####[facility] ([facility] [place] [address] APTTon 03-03-2025 ACTIVATED PARTIAL THROMBOPLASTIN TIME IN PPP BY COAGULATION ASSAY 41.8 Seconds High 25.0-35.0 [facility] Comment on above: Order Comment: Basel ine aPTT before initiating heparin infusion. Result Comment: Clin ical significance of the APTT is questionable in the presence of heparin. Performed By: #### L [id number] ####[facility] ([facility] [address] CBCon 03-03-2025 Erythrocyte distribution width (RBC) [Ratio] 16.4 % High 11.5-15.0 [facility] Comment on above: Performed By: #### L [id number] ####[facility] ([facility] [place] [address] ERYTHROCYTE MEAN CORPUSCULAR HEMOGLOBIN CONCENTRATION (G/DL) BY AUTOMATED 34.0 g/dL Normal 32.0-35.0 [facility] Comment on above: Performed By: #### L [id number] ####[facility] ([facility] [place] [address] Hematocrit (Bld) [Volume fraction] 24.1 % Low 39.0-50.0 [facility] Comment on above: Performed By: #### L [id number] ####[facility] ([facility] [place] [address] Hemoglobin (Bld) [Mass/Vol] 8.2 g/dL Low 13.0-17.0 [facility] Comment on above: Performed By: #### L [id number] ####[facility] ([facility] [place] [address] MCH (RBC) [Entitic mass] 30.5 pg Normal 27.0-33.0 [facility] Comment on above: Performed By: #### L [id number] ####[facility] ([facility] [place] [address] MCV (RBC) [Entitic vol] 89.6 fL Normal 82.0-98.0 [facility] Comment on above: Performed By: #### L [id number] ####[facility] ([facility] [place] [address] PLATELETS (10*3/UL) IN BLOOD AUTOMATED COUNT 370 10*3/uL Normal 150-400 [facility] Comment on above: Performed By: #### L [id number] ####[facility] ([facility] [place] [address] RBC (Bld) [#/Vol] 2.69 10*6/uL Low 4.20-5.70 [facility] Comment on above: Performed By: #### L [id number] ####[facility] ([facility] [place] [address] WBC (Bld) [#/Vol] 5.84 10*3/uL Normal 4.00-10.60 [facility] Comment on above: Performed By: #### L [id number] ####[facility] ([facility] [place] [address] COMPREHENSIVE METABOLIC PANE Rogelio 03-03-2025 Albumin [Mass/Vol] 2.9 g/dL Low 3.5-5.7 [facility] Comment on above: Performed By: #### L [id number] ####[facility] ([facility] [place] [address] ALP [Catalytic activity/Vol] 55 U/L Normal 34-104 [facility] Comment on above: Performed By: #### L [id number] ####[facility] ([facility] [place] [address] ALT [Catalytic activity/Vol] 18 U/L Normal 7-52 [facility] Comment on above: Performed By: #### L [id number] ####[facility] ([facility])[address] [place] [address] Anion gap [Moles/Vol] 9 mmol/L Normal 7-20 [facility] Comment on above: Performed By: #### L [id number] ####[facility] ([facility])[address] [place] [address] AST [Catalytic activity/Vol] 23 U/L Normal 13-39 [facility] Comment on above: Performed By: #### L [id number] ####[facility] ([facility])[address] [place] [address] Bilirubin [Mass/Vol] 4.0 mg/dL High 0.3-1.0 [facility] Comment on above: Performed By: #### L [id number] ####[facility] ([facility])[address] [place] [address] Calcium [Mass/Vol] 7.8 mg/dL Low 8.6-10.3 [facility] Comment on above: Performed By: #### L [id number] ####[facility] ([facility])[address] [place] [address] Chloride [Moles/Vol] 102 mmol/L Normal 98-107 [facility] Comment on above: Performed By: #### L [id number] ####[facility] ([facility])[address] [place] [address] CO2 [Moles/Vol] 25 mmol/L Normal 21-31 [facility] Comment on above: Performed By: #### L [id number] ####[facility] ([facility])[address] [place] [address] Creatinine [Mass/Vol] 0.69 mg/dL Low 0.70-1.30 [facility] Comment on above: Performed By: #### L [id number] ####[facility] ([facility])[address] [place] [address] GLOMERULAR FILTRATION RATE ML/MIN/1.73 SQ M.PREDICTED 107.3 mL/min/1.73m*2 Normal >60.0 [facility] Comment on above: Result Comment: [facility]???s estimated glomerular filtration rate (eGFR) will no longer include consideration of race in its calculation. The National Kidney Foundation???s eGFR Task Force developed new recommendations for [...] disproportionately affect any one group of individuals. Performed By: #### L [id number] ####[facility] ([facility] [place] [address] Glucose [Mass/Vol] 88 mg/dL Normal 70-100 [facility] Comment on above: Performed By: #### L [id number] ####[facility] ([facility] [place] [address] Potassium [Moles/Vol] 4.0 mmol/L Normal 3.5-5.1 [facility] Comment on above: Performed By: #### L [id number] ####[facility] ([facility] [place] [address] Protein [Mass/Vol] 5.1 g/dL Low 6.0-8.3 [facility] Comment on above: Performed By: #### L [id number] ####[facility] ([facility] [place] [address] Sodium [Moles/Vol] 132 mmol/L Low 136-145 [facility] Comment on above: Performed By: #### L [id number] ####[facility] [facility] [place] [address] Urea nitrogen [Mass/Vol] 12 mg/dL Normal 7-25 [facility] Comment on above: Performed By: #### L [id number] ####[facility] ([facility] [place] [address] UREA NITROGEN/CREATININ E (MASS RATIO) IN SER/PLAS 17.4 Normal [facility] Comment on above: Performed By: #### L [id number] ####[facility] ([facility] [place] [address] DIGOXIN LEVELon 03-03-2025 DIGOXIN (NG/ML) IN SER/PLAS 0.6 ng/mL Low 0.7-2 [facility] Comment on above: Performed By: #### L [id number] ####[facility] ([facility] [place] [address] MAGNESIUMon 03-03-2025 Magnesium [Mass/Vol] 2.0 mg/dL Normal 1.9-2.7 [facility] Comment on above: Performed By: #### L [id number] ####[facility] ([facility] [place] [address] NURSNOTEon 03-03-2025 NURSNOTE Normal [facility] NURSNOTE Normal [facility] NURSNOTE Normal [facility] PHOSPHORUSon 03-03-2025 Magnesium [Mass/Vol] 2.9 mg/dL Normal 2.5-5.0 [facility] Comment on above: Performed By: #### L [id number] ####[facility] ([facility] [place] [address] PLATELET COUNTon 03-03-2025 PLATELETS (10*3/UL) IN BLOOD AUTOMATED COUNT 358 10*3/uL Normal 150-400 [facility] Comment on above: Performed By: #### L [id number] ####[facility] ([facility] [place] [address] 30on 03-02-2025 30 Normal [facility] ANTI-XA (HEPARIN LEVEL)on HEPARIN UNFRACTIONATED (U/ML) IN PPP BY CHROMOGENIC METHOD 0.18 IU/mL Low 0.3-0.7 [facility] Comment on above: Result Comment: [place] roxaban and Apixaban will interfere with the anti Xa assay used to monitor UFH and LMWH. Performed By: #### L [id number] ####[facility] ([facility] [place] [address] APTTon 03-02-2025 ACTIVATED PARTIAL THROMBOPLASTIN TIME IN PPP BY COAGULATION ASSAY 39.7 Seconds High 25.0-35.0 [facility] Comment on above: Order Comment: Basel ine aPTT before initiating heparin infusion. Result Comment: Clin ical significance of the APTT is questionable in the presence of heparin. Performed By: #### L [id number] ####[facility] ([facility] [place] [address] COMPREHENSIVE METABOLIC PANE Rogelio 03-02-2025 Albumin [Mass/Vol] 3.0 g/dL Low 3.5-5.7 [facility] Comment on above: Performed By: #### L [id number] ####[facility] ([facility] [place] [address] ALP [Catalytic activity/Vol] 59 U/L Normal 34-104 [facility] Comment on above: Performed By: #### L [id number] ####[facility] ([facility] [place] [address] ALT [Catalytic activity/Vol] 20 U/L Normal 7-52 [facility] Comment on above: Performed By: #### L [id number] ####[facility] ([facility] [place] [address] Anion gap [Moles/Vol] 7 mmol/L Normal 7-20 [facility] Comment on above: Performed By: #### L [id number] ####[facility] ([facility] [place] [address] AST [Catalytic activity/Vol] 21 U/L Normal 13-39 [facility] Comment on above: Performed By: #### L [id number] ####[facility] ([facility] [place] [address] Bilirubin [Mass/Vol] 4.3 mg/dL High 0.3-1.0 [facility] Comment on above: Performed By: #### L [id number] ####[facility] ([facility] [place] [address] Calcium [Mass/Vol] 8.1 mg/dL Low 8.6-10.3 [facility] Comment on above: Performed By: #### L [id number] ####[facility] ([facility])[address] [place] [address] Chloride [Moles/Vol] 103 mmol/L Normal 98-107 [facility] Comment on above: Performed By: #### L [id number] ####[facility] ([facility])[address] [place] [address] CO2 [Moles/Vol] 25 mmol/L Normal 21-31 [facility] Comment on above: Performed By: #### L [id number] ####[facility] ([facility] [place] [address] Creatinine [Mass/Vol] 0.68 mg/dL Low 0.70-1.30 [facility] Comment on above: Performed By: #### L [id number] ####[facility] ([facility] [place] [address] GLOMERULAR FILTRATION RATE ML/MIN/1.73 SQ M.PREDICTED 107.7 mL/min/1.73m*2 Normal >60.0 [facility] Comment on above: Result Comment: [facility]???s estimated glomerular filtration rate (eGFR) will no longer include consideration of race in its calculation. The National Kidney Foundation???s eGFR Task Force developed new recommendations for [...] disproportionately affect any one group of individuals. Performed By: #### L [id number] ####[facility] ([facility])[address] [place] [address] Glucose [Mass/Vol] 91 mg/dL Normal 70-100 [facility] Comment on above: Performed By: #### L [id number] ####[facility] ([facility])[address] [place] [address] Potassium [Moles/Vol] 4.0 mmol/L Normal 3.5-5.1 [facility] Comment on above: Performed By: #### L [id number] ####[facility] ([facility] [place] [address] Protein [Mass/Vol] 5.3 g/dL Low 6.0-8.3 [facility] Comment on above: Performed By: #### L [id number] ####[facility] ([facility] [place] [address] Sodium [Moles/Vol] 131 mmol/L Low 136-145 [facility] Comment on above: Performed By: #### L [id number] ####[facility] ([facility] [place] [address] Urea nitrogen [Mass/Vol] 13 mg/dL Normal 7-25 [facility] Comment on above: Performed By: #### L [id number] ####[facility] ([facility] [place] [address] UREA NITROGEN/CREATININ E (MASS RATIO) IN SER/PLAS 19.1 Normal [facility] Comment on above: Performed By: #### L [id number] ####[facility] ([facility] [place] [address] MAGNESIUMon 03-02-2025 Magnesium [Mass/Vol] 2.0 mg/dL Normal 1.9-2.7 [facility] Comment on above: Performed By: #### L [id number] ####[facility] ([facility] [place] [address] PHOSPHORUSon 03-02-2025 Magnesium [Mass/Vol] 2.5 mg/dL Normal 2.5-5.0 [facility] Comment on above: Performed By: #### L [id number] ####[facility] ([facility] [place] [address] PLATELET COUNTon 03-02-2025 PLATELETS (10*3/UL) IN BLOOD AUTOMATED COUNT 366 10*3/uL Normal 150-400 [facility] Comment on above: Performed By: #### L [id number] ####[facility] ([facility] [place] [address] URINALYSISon 03-02-2025 BILIRUBIN, TOTAL PRESENCE IN URINE Negative Normal Negative [facility] Comment on above: Order Comment: Micro scopics not performed on urines with negative chemical reactions unless requested on original order. Performed By: #### L [id number] ####[facility] ([facility] [place] [address] Clarity (U) Clear Normal Clear [facility] Comment on above: Order Comment: Micro scopics not performed on urines with negative chemical reactions unless requested on original order. Performed By: #### L [id number] ####[facility] ([facility] [place] [address] Color (U) Yellow Normal Colorless, Yellow, Light-Yellow [facility] Comment on above: Order Comment: Micro scopics not performed on urines with negative chemical reactions unless requested on original order. Performed By: #### L [id number] ####[facility] ([facility] [place] [address] GLUCOSE (MG/DL) IN URINE Normal Normal Normal [facility] Comment on above: Order Comment: Micro scopics not performed on urines with negative chemical reactions unless requested on original order. Performed By: #### L [id number] ####[facility] ([facility] [place] [address] HEMOGLOBIN PRESENCE IN URINE Negative Normal Negative [facility] Comment on above: Order Comment: Micro scopics not performed on urines with negative chemical reactions unless requested on original order. Performed By: #### L [id number] ####[facility] ([facility] [place] [address] Ketones Ql (U) Negative Normal Negative [facility] Comment on above: Order Comment: Micro scopics not performed on urines with negative chemical reactions unless requested on original order. Performed By: #### L [id number] ####[facility] ([facility] [place] [address] LEUKOCYTE ESTERASE PRESENCE IN URINE BY TEST STRIP Negative Normal Negative [facility] Comment on above: Order Comment: Micro scopics not performed on urines with negative chemical reactions unless requested on original order. Performed By: #### L [id number] ####[facility] ([facility] [place] [address] NITRITE PRESENCE IN URINE Negative Normal Negative [facility] Comment on above: Order Comment: Micro scopics not performed on urines with negative chemical reactions unless requested on original order. Performed By: #### L [id number] ####[facility] ([facility] [place] [address] pH (U) 6.5 [pH] Normal 5.0-8.0 [facility] Comment on above: Order Comment: Micro scopics not performed on urines with negative chemical reactions unless requested on original order. Performed By: #### L [id number] ####[facility] ([facility] [place] [address] Protein (U) [Mass/Vol] Negative Normal Negative [facility] Comment on above: Order Comment: Micro scopics not performed on urines with negative chemical reactions unless requested on original order. Performed By: #### L [id number] ####[facility] ([facility] [place] [address] Specific gravity (U) [Rel density] 1.016 Normal 1.010-1.030 [facility] Comment on above: Order Comment: Micro scopics not performed on urines with negative chemical reactions unless requested on original order. Performed By: #### L [id number] ####[facility] ([facility])[address] [place] [address] UROBILINOGEN (MG/DL) IN URINE >=8.0 Abnormal Normal [facility] Comment on above: Order Comment: Micro scopics not performed on urines with negative chemical reactions unless requested on original order. Performed By: #### L [id number] ####[facility] ([facility])[address] [place] [address] 30on 03-01-2025 30 The patient is Moderately Stable - Low risk of patient condition declining or worsening The patient's goals for the shift include comfort, rest. The clinical goals for the shift include stable vitals, safety. Normal [facility] 30 Normal [facility] COMPREHENSIVE METABOLIC PANE Rogelio 03-01-2025 Albumin [Mass/Vol] 2.9 g/dL Low 3.5-5.7 [facility] Comment on above: Performed By: #### L [id number] ####[facility] ([facility] [place] [address] ALP [Catalytic activity/Vol] 58 U/L Normal 34-104 [facility] Comment on above: Performed By: #### L [id number] ####[facility] ([facility])[address] [place] [address] ALT [Catalytic activity/Vol] 17 U/L Normal 7-52 [facility] Comment on above: Performed By: #### L [id number] ####[facility] ([facility])[address] [place] [address] Anion gap [Moles/Vol] 9 mmol/L Normal 7-20 [facility] Comment on above: Performed By: #### L [id number] ####[facility] ([facility])[address] [place] [address] AST [Catalytic activity/Vol] 17 U/L Normal 13-39 [facility] Comment on above: Performed By: #### L [id number] ####[facility] ([facility])[address] [place] [address] Bilirubin [Mass/Vol] 3.6 mg/dL High 0.3-1.0 [facility] Comment on above: Performed By: #### L [id number] ####[facility] ([facility])[address] [place] [address] Calcium [Mass/Vol] 7.7 mg/dL Low 8.6-10.3 [facility] Comment on above: Performed By: #### L [id number] ####[facility] ([facility])[address] [place] [address] Chloride [Moles/Vol] 103 mmol/L Normal 98-107 [facility] Comment on above: Performed By: #### L [id number] ####[facility] ([facility] [place] [address] CO2 [Moles/Vol] 22 mmol/L Normal 21-31 [facility] Comment on above: Performed By: #### L [id number] ####[facility] ([facility] [place] [address] Creatinine [Mass/Vol] 0.67 mg/dL Low 0.70-1.30 [facility] Comment on above: Performed By: #### L [id number] ####[facility] ([facility] [place] [address] GLOMERULAR FILTRATION RATE ML/MIN/1.73 SQ M.PREDICTED 108.2 mL/min/1.73m*2 Normal >60.0 [facility] Comment on above: Result Comment: [facility]???s estimated glomerular filtration rate (eGFR) will no longer include consideration of race in its calculation. The National Kidney Foundation???s eGFR Task Force developed new recommendations for [...] disproportionately affect any one group of individuals. Performed By: #### L [id number] ####[facility] ([facility] [place] [address] Glucose [Mass/Vol] 94 mg/dL Normal 70-100 [facility] Comment on above: Performed By: #### L [id number] ####[facility] ([facility])[address] [place] [address] Potassium [Moles/Vol] 3.9 mmol/L Normal 3.5-5.1 [facility] Comment on above: Performed By: #### L [id number] ####[facility] ([facility])[address] [place] [address] Protein [Mass/Vol] 5.1 g/dL Low 6.0-8.3 [facility] Comment on above: Performed By: #### L [id number] ####[facility] ([facility] [facility] [place] [address] Sodium [Moles/Vol] 130 mmol/L Low 136-145 [facility] Comment on above: Performed By: #### L [id number] ####[facility] ([facility] [place] [address] Urea nitrogen [Mass/Vol] 14 mg/dL Normal 7-25 [facility] Comment on above: Performed By: #### L [id number] ####[facility] ([facility] [place] [address] UREA NITROGEN/CREATININ E (MASS RATIO) IN SER/PLAS 20.9 Normal [facility] Comment on above: Performed By: #### L [id number] ####[facility] ([facility] [place] [address] DIGOXIN LEVELon 03-01-2025 DIGOXIN (NG/ML) IN SER/PLAS <0.3 Low 0.7-2 [facility] Comment on above: Performed By: #### L [id number] ####[facility] ([facility] [place] [address] MAGNESIUMon 03-01-2025 Magnesium [Mass/Vol] 2.0 mg/dL Normal 1.9-2.7 [facility] Comment on above: Performed By: #### L [id number] ####[facility] ([facility] [place] [address] NURSNOTEon 03-01-2025 NURSNOTE Normal [facility] PHOSPHORUSon 03-01-2025 Magnesium [Mass/Vol] 2.4 mg/dL Low 2.5-5.0 [facility] Comment on above: Performed By: #### L [id number] ####[facility] ([facility] [place] [address] 30on 02-28-2025 30 Normal [facility] CBCon 02-28-2025 Erythrocyte distribution width (RBC) [Ratio] 17.2 % High 11.5-15.0 [facility] Comment on above: Performed By: #### L [id number] ####[facility] ([facility] [place] [address] ERYTHROCYTE MEAN CORPUSCULAR HEMOGLOBIN CONCENTRATION (G/DL) BY AUTOMATED 34.2 g/dL Normal 32.0-35.0 [facility] Comment on above: Performed By: #### L [id number] ####[facility] ([facility] [place] [address] Hematocrit (Bld) [Volume fraction] 24.3 % Low 39.0-50.0 [facility] Comment on above: Performed By: #### L [id number] ####[facility] ([facility] [place] [address] Hemoglobin (Bld) [Mass/Vol] 8.3 g/dL Low 13.0-17.0 [facility] Comment on above: Performed By: #### L [id number] ####[facility] ([facility] [place] [address] MCH (RBC) [Entitic mass] 30.7 pg Normal 27.0-33.0 [facility] Comment on above: Performed By: #### L [id number] ####[facility] ([facility])[address] [place] [address] MCV (RBC) [Entitic vol] 90.0 fL Normal 82.0-98.0 [facility] Comment on above: Performed By: #### L [id number] ####[facility] ([facility])[address] [place] [address] PLATELETS (10*3/UL) IN BLOOD AUTOMATED COUNT 255 10*3/uL Normal 150-400 [facility] Comment on above: Performed By: #### L [id number] ####[facility] ([facility])[address] [place] [address] RBC (Bld) [#/Vol] 2.70 10*6/uL Low 4.20-5.70 [facility] Comment on above: Performed By: #### L [id number] ####[facility] ([facility])[address] [place] [address] WBC (Bld) [#/Vol] 8.84 10*3/uL Normal 4.00-10.60 [facility] Comment on above: Performed By: #### L [id number] ####[facility] ([facility] [place] [address] COMPREHENSIVE METABOLIC PANE Rogelio 02-28-2025 Albumin [Mass/Vol] 3.0 g/dL Low 3.5-5.7 [facility] Comment on above: Performed By: #### L [id number] ####[facility] ([facility] [place] [address] ALP [Catalytic activity/Vol] 60 U/L Normal 34-104 [facility] Comment on above: Performed By: #### L [id number] ####[facility] ([facility])[address] [place] [address] ALT [Catalytic activity/Vol] 20 U/L Normal 7-52 [facility] Comment on above: Performed By: #### L [id number] ####[facility] ([facility])[address] [place] [address] Anion gap [Moles/Vol] 10 mmol/L Normal 7-20 [facility] Comment on above: Performed By: #### L [id number] ####[facility] ([facility])[address] [place] [address] AST [Catalytic activity/Vol] 14 U/L Normal 13-39 [facility] Comment on above: Performed By: #### L [id number] ####[facility] ([facility])[address] [place] [address] Bilirubin [Mass/Vol] 3.8 mg/dL High 0.3-1.0 [facility] Comment on above: Performed By: #### L [id number] ####[facility])[address] [place] [address] Calcium [Mass/Vol] 7.9 mg/dL Low 8.6-10.3 [facility] Comment on above: Performed By: #### L [id number] ####[facility] ([facility] [place] [address] Chloride [Moles/Vol] 102 mmol/L Normal 98-107 [facility] Comment on above: Performed By: #### L [id number] ####[facility] ([facility] [place] [address] CO2 [Moles/Vol] 23 mmol/L Normal 21-31 [facility] Comment on above: Performed By: #### L [id number] ####[facility] ([facility] [place] [address] Creatinine [Mass/Vol] 0.75 mg/dL Normal 0.70-1.30 [facility] Comment on above: Performed By: #### L [id number] ####[facility] ([facility] [place] [address] GLOMERULAR FILTRATION RATE ML/MIN/1.73 SQ M.PREDICTED 104.6 mL/min/1.73m*2 Normal >60.0 [facility] Comment on above: Result Comment: [facility]???s estimated glomerular filtration rate (eGFR) will no longer include consideration of race in its calculation. The National Kidney Foundation???s eGFR Task Force developed new recommendations for [...] disproportionately affect any one group of individuals. Performed By: #### L [id number] ####[facility] [place] [address] Glucose [Mass/Vol] 98 mg/dL Normal 70-100 [facility] Comment on above: Performed By: #### L [id number] ####[facility] ([facility] [place] [address] Potassium [Moles/Vol] 4.0 mmol/L Normal 3.5-5.1 [facility] Comment on above: Performed By: #### L [id number] ####[facility] ([facility] [place] [address] Protein [Mass/Vol] 5.1 g/dL Low 6.0-8.3 [facility] Comment on above: Performed By: #### L [id number] ####[facility] ([facility] [place] [address] Sodium [Moles/Vol] 131 mmol/L Low 136-145 [facility] Comment on above: Performed By: #### L [id number] ####[facility] ([facility] [place] [address] Urea nitrogen [Mass/Vol] 16 mg/dL Normal 7-25 [facility] Comment on above: Performed By: #### L [id number] ####[facility] ([facility] [place] [address] UREA NITROGEN/CREATININ E (MASS RATIO) IN SER/PLAS 21.[address] [facility] Comment on above: Performed By: #### L [id number] ####[facility] ([facility] [place] [address] MAGNESIUMon 02-28-2025 Magnesium [Mass/Vol] 2.0 mg/dL Low 2.5-5.0 [facility] Comment on above: Performed By: #### L [id number] ####[facility] ([facility] [place] [address] Performed By: #### L [id number] ####[facility] ([facility] [place] [address] NURSNOTEon 02-28-2025 NURSNOTE Normal [facility] 30on 02-27-2025 30 Normal [facility] CBCon 02-27-2025 Erythrocyte distribution width (RBC) [Ratio] 17.2 % High 11.5-15.0 [facility] Comment on above: Performed By: #### L [id number] ####[facility] [place] [address] ERYTHROCYTE MEAN CORPUSCULAR HEMOGLOBIN CONCENTRATION (G/DL) BY AUTOMATED 35.5 g/dL High 32.0-35.0 [facility] Comment on above: Performed By: #### L [id number] ####[facility] ([facility] [place] [address] Hematocrit (Bld) [Volume fraction] 25.1 % Low 39.0-50.0 [facility] Comment on above: Performed By: #### L [id number] ####[facility] [place] [address] Hemoglobin (Bld) [Mass/Vol] 8.9 g/dL Low 13.0-17.0 [facility] Comment on above: Performed By: #### L [id number] ####[facility] ([facility] [place] [address] MCH (RBC) [Entitic mass] 31.3 pg Normal 27.0-33.0 [facility] Comment on above: Performed By: #### L [id number] ####[facility] ([facility] [place] [address] MCV (RBC) [Entitic vol] 88.4 fL Normal 82.0-98.0 [facility] Comment on above: Performed By: #### L [id number] ####[facility] ([facility] [place] [address] PLATELETS (10*3/UL) IN BLOOD AUTOMATED COUNT 261 10*3/uL Normal 150-400 [facility] Comment on above: Performed By: #### L [id number] ####[facility] ([facility])[address] [place] [address] RBC (Bld) [#/Vol] 2.84 10*6/uL Low 4.20-5.70 [facility] Comment on above: Performed By: #### L [id number] ####[facility] ([facility] [address] WBC (Bld) [#/Vol] 9.07 10*3/uL Normal 4.00-10.60 [facility] Comment on above: Performed By: #### L [id number] ####[facility] ([facility] [address] Erythrocyte distribution width (RBC) [Ratio] 17.2 % High 11.5-15.0 [facility] Comment on above: Performed By: #### L [id number] ####[facility] ([facility] [address] ERYTHROCYTE MEAN CORPUSCULAR HEMOGLOBIN CONCENTRATION (G/DL) BY AUTOMATED 35.0 g/dL Normal 32.0-35.0 [facility] Comment on above: Performed By: #### L [id number] ####[facility] ([facility] [address] Hematocrit (Bld) [Volume fraction] 27.4 % Low 39.0-50.0 [facility] Comment on above: Performed By: #### L [id number] ####[facility] ([facility] [address] Hemoglobin (Bld) [Mass/Vol] 9.6 g/dL Low 13.0-17.0 [facility] Comment on above: Performed By: #### L [id number] ####[facility] ([facility] [address] MCH (RBC) [Entitic mass] 30.8 pg Normal 27.0-33.0 [facility] Comment on above: Performed By: #### L [id number] ####[facility] ([facility])[address] [place], [place] [address] MCV (RBC) [Entitic vol] 87.8 fL Normal 82.0-98.0 [facility] Comment on above: Performed By: #### L [id number] ####[facility] ([facility])[address] [address] PLATELETS (10*3/UL) IN BLOOD AUTOMATED COUNT 284 10*3/uL Normal 150-400 [facility] Comment on above: Performed By: #### L [id number] ####[facility] ([facility])[address] [address] RBC (Bld) [#/Vol] 3.12 10*6/uL Low 4.20-5.70 [facility] Comment on above: Performed By: #### L [id number] ####[facility] ([facility])[address] [address] WBC (Bld) [#/Vol] 10.96 10*3/uL High 4.00-10.60 [facility] Comment on above: Performed By: #### L [id number] ####[facility] ([facility])[address] [place], [place] [address] Erythrocyte distribution width (RBC) [Ratio] 17.3 % High 11.5-15.0 [facility] Comment on above: Performed By: #### L [id number] ####[facility] ([facility])[address] [place], [place] [address] ERYTHROCYTE MEAN CORPUSCULAR HEMOGLOBIN CONCENTRATION (G/DL) BY AUTOMATED 34.4 g/dL Normal 32.0-35.0 [facility] Comment on above: Performed By: #### L [id number] ####[facility] ([facility])[address] [place] [address] Hematocrit (Bld) [Volume fraction] 24.7 % Low 39.0-50.0 [facility] Comment on above: Performed By: #### L [id number] ####[facility] ([facility])[address] [place] [address] Hemoglobin (Bld) [Mass/Vol] 8.5 g/dL Low 13.0-17.0 [facility] Comment on above: Performed By: #### L [id number] ####[facility] ([facility])[address] [address] MCH (RBC) [Entitic mass] 30.9 pg Normal 27.0-33.0 [facility] Comment on above: Performed By: #### L [id number] ####[facility] ([facility])[address] [address] MCV (RBC) [Entitic vol] 89.8 fL Normal 82.0-98.0 [facility] Comment on above: Performed By: #### L [id number] ####[facility] ([facility])[address] [place] [address] PLATELETS (10*3/UL) IN BLOOD AUTOMATED COUNT 233 10*3/uL Normal 150-400 [facility] Comment on above: Performed By: #### L [id number] ####[facility] ([facility])[address] [place] [address] RBC (Bld) [#/Vol] 2.75 10*6/uL Low 4.20-5.70 [facility] Comment on above: Performed By: #### L [id number] ####[facility] ([facility])[address] [place] [address] WBC (Bld) [#/Vol] 8.02 10*3/uL Normal 4.00-10.60 [facility] Comment on above: Performed By: #### L [id number] ####[facility] ([facility])[address] [place] [address] Erythrocyte distribution width (RBC) [Ratio] 17.5 % High 11.5-15.0 [facility] Comment on above: Performed By: #### L [id number] ####[facility] ([facility])[address] [place] [address] ERYTHROCYTE MEAN CORPUSCULAR HEMOGLOBIN CONCENTRATION (G/DL) BY AUTOMATED 34.5 g/dL Normal 32.0-35.0 [facility] Comment on above: Performed By: #### L [id number] ####[facility] ([facility] [place] [address] Hematocrit (Bld) [Volume fraction] 23.8 % Low 39.0-50.0 [facility] Comment on above: Performed By: #### L [id number] ####[facility] ([facility] [place] [address] Hemoglobin (Bld) [Mass/Vol] 8.2 g/dL Low 13.0-17.0 [facility] Comment on above: Performed By: #### L [id number] ####[facility] ([facility])[address] [place] [address] MCH (RBC) [Entitic mass] 30.7 pg Normal 27.0-33.0 [facility] Comment on above: Performed By: #### L [id number] ####[facility] ([facility] [place] [address] MCV (RBC) [Entitic vol] 89.1 fL Normal 82.0-98.0 [facility] Comment on above: Performed By: #### L [id number] ####[facility] ([facility])[address] [place] [address] PLATELETS (10*3/UL) IN BLOOD AUTOMATED COUNT 159 10*3/uL Normal 150-400 [facility] Comment on above: Performed By: #### L [id number] ####[facility] ([facility])[address] [place] [address] RBC (Bld) [#/Vol] 2.67 10*6/uL Low 4.20-5.70 [facility] Comment on above: Performed By: #### L [id number] ####[facility] ([facility])[address] [place] [address] WBC (Bld) [#/Vol] 8.06 10*3/uL Normal 4.00-10.60 [facility] Comment on above: Performed By: #### L [id number] ####[facility] ([facility] [place] [address] COMPREHENSIVE METABOLIC PANE Rogelio 02-27-2025 Albumin [Mass/Vol] 2.9 g/dL Low 3.5-5.7 [facility] Comment on above: Performed By: #### L [id number] ####[facility] ([facility] [place] [address] ALP [Catalytic activity/Vol] 54 U/L Normal 34-104 [facility] Comment on above: Performed By: #### L [id number] ####[facility] ([facility] [place] [address] ALT [Catalytic activity/Vol] 21 U/L Normal 7-52 [facility] Comment on above: Performed By: #### L [id number] ####[facility] ([facility] [place] [address] Anion gap [Moles/Vol] 8 mmol/L Normal 7-20 [facility] Comment on above: Performed By: #### L [id number] ####[facility] ([facility] [place] [address] AST [Catalytic activity/Vol] 16 U/L Normal 13-39 [facility] Comment on above: Performed By: #### L [id number] ####[facility] ([facility] [place] [address] Bilirubin [Mass/Vol] 3.4 mg/dL High 0.3-1.0 [facility] Comment on above: Performed By: #### L [id number] ####[facility] ([facility] [place] [address] Calcium [Mass/Vol] 7.8 mg/dL Low 8.6-10.3 [facility] Comment on above: Performed By: #### L [id number] ####[facility] ([facility] [place] [address] Chloride [Moles/Vol] 102 mmol/L Normal 98-107 [facility] Comment on above: Performed By: #### L [id number] ####[facility] ([facility] [place] [address] CO2 [Moles/Vol] 25 mmol/L Normal 21-31 [facility] Comment on above: Performed By: #### L [id number] ####[facility] ([facility] [place] [address] Creatinine [Mass/Vol] 0.64 mg/dL Low 0.70-1.30 [facility] Comment on above: Performed By: #### L [id number] ####[facility] ([facility] [place] [address] GLOMERULAR FILTRATION RATE ML/MIN/1.73 SQ M.PREDICTED 109.7 mL/min/1.73m*2 Normal >60.0 [facility] Comment on above: Result Comment: [facility]???s estimated glomerular filtration rate (eGFR) will no longer include consideration of race in its calculation. The National Kidney Foundation???s eGFR Task Force developed new recommendations for [...] disproportionately affect any one group of individuals. Performed By: #### L [id number] ####[facility] ([facility] [place] [address] Glucose [Mass/Vol] 100 mg/dL Normal 70-100 [facility] Comment on above: Performed By: #### L [id number] ####[facility] ([facility])[address] [place] [address] Potassium [Moles/Vol] 4.1 mmol/L Normal 3.5-5.1 [facility] Comment on above: Performed By: #### L [id number] ####[facility] ([facility] [place] [address] Protein [Mass/Vol] 4.9 g/dL Low 6.0-8.3 [facility] Comment on above: Performed By: #### L [id number] ####[facility] ([facility] [place] [address] Sodium [Moles/Vol] 131 mmol/L Low 136-145 [facility] Comment on above: Performed By: #### L [id number] ####[facility] ([facility] [place] [address] Urea nitrogen [Mass/Vol] 17 mg/dL Normal 7-25 [facility] Comment on above: Performed By: #### L [id number] ####[facility] ([facility] [place] [address] UREA NITROGEN/CREATININ E (MASS RATIO) IN SER/PLAS 26.6 Normal [facility] Comment on above: Performed By: #### L [id number] ####[facility] ([facility] [place] [address] MAGNESIUMon 02-27-2025 Magnesium [Mass/Vol] 2.1 mg/dL Normal 1.9-2.7 [facility] Comment on above: Performed By: #### L [id number] ####[facility] ([facility] [place] [address] NURSNOTEon 02-27-2025 NURSNOTE Normal [facility] PHOSPHORUSon 02-27-2025 Magnesium [Mass/Vol] 2.0 mg/dL Low 2.5-5.0 [facility] Comment on above: Performed By: #### L [id number] ####[facility] ([facility] [place] [address] 30on 02-26-2025 30 Normal [facility] CBCon 02-26-2025 Erythrocyte distribution width (RBC) [Ratio] 17.5 % High 11.5-15.0 [facility] Comment on above: Performed By: #### L [id number] ####[facility] ([facility])[address] [place] [address] ERYTHROCYTE MEAN CORPUSCULAR HEMOGLOBIN CONCENTRATION (G/DL) BY AUTOMATED 34.6 g/dL Normal 32.0-35.0 [facility] Comment on above: Performed By: #### L [id number] ####[facility] ([facility] [place] [address] Hematocrit (Bld) [Volume fraction] 24.6 % Low 39.0-50.0 [facility] Comment on above: Performed By: #### L [id number] ####[facility] ([facility] [address] Hemoglobin (Bld) [Mass/Vol] 8.5 g/dL Low 13.0-17.0 [facility] Comment on above: Performed By: #### L [id number] ####[facility] ([facility] [place] [address] MCH (RBC) [Entitic mass] 31.1 pg Normal 27.0-33.0 [facility] Comment on above: Performed By: #### L [id number] ####[facility] ([facility] [address] MCV (RBC) [Entitic vol] 90.1 fL Normal 82.0-98.0 [facility] Comment on above: Performed By: #### L [id number] ####[facility] ([facility] [place] [address] PLATELETS (10*3/UL) IN BLOOD AUTOMATED COUNT 225 10*3/uL Normal 150-400 [facility] Comment on above: Performed By: #### L [id number] ####[facility] ([facility] [place] [address] RBC (Bld) [#/Vol] 2.73 10*6/uL Low 4.20-5.70 [facility] Comment on above: Performed By: #### L [id number] ####[facility] ([facility])[address] [place] [address] WBC (Bld) [#/Vol] 8.18 10*3/uL Normal 4.00-10.60 [facility] Comment on above: Performed By: #### L [id number] ####[facility] ([facility])[address] [place] [address] Erythrocyte distribution width (RBC) [Ratio] 17.6 % High 11.5-15.0 [facility] Comment on above: Performed By: #### L [id number] ####[facility] ([facility] [place] [address] ERYTHROCYTE MEAN CORPUSCULAR HEMOGLOBIN CONCENTRATION (G/DL) BY AUTOMATED 34.0 g/dL Normal 32.0-35.0 [facility] Comment on above: Performed By: #### L [id number] ####[facility] ([facility] [place] [address] Hematocrit (Bld) [Volume fraction] 25.0 % Low 39.0-50.0 [facility] Comment on above: Performed By: #### L [id number] ####[facility] ([facility] [place] [address] Hemoglobin (Bld) [Mass/Vol] 8.5 g/dL Low 13.0-17.0 [facility] Comment on above: Performed By: #### L [id number] ####[facility] ([facility])[address] [place] [address] MCH (RBC) [Entitic mass] 30.2 pg Normal 27.0-33.0 [facility] Comment on above: Performed By: #### L [id number] ####[facility] ([facility])[address] [place] [address] MCV (RBC) [Entitic vol] 89.0 fL Normal 82.0-98.0 [facility] Comment on above: Performed By: #### L [id number] ####[facility] ([facility])[address] [place] [address] PLATELETS (10*3/UL) IN BLOOD AUTOMATED COUNT 219 10*3/uL Normal 150-400 [facility] Comment on above: Performed By: #### L [id number] ####[facility] ([facility] [place] [address] RBC (Bld) [#/Vol] 2.81 10*6/uL Low 4.20-5.70 [facility] Comment on above: Performed By: #### L [id number] ####[facility] ([facility] [place], [place] [address] WBC (Bld) [#/Vol] 8.65 10*3/uL Normal 4.00-10.60 [facility] Comment on above: Performed By: #### L [id number] ####[facility] ([facility] [place] [address] Erythrocyte distribution width (RBC) [Ratio] 17.8 % High 11.5-15.0 [facility] Comment on above: Performed By: #### L [id number] ####[facility] ([facility] [place] [address] ERYTHROCYTE MEAN CORPUSCULAR HEMOGLOBIN CONCENTRATION (G/DL) BY AUTOMATED 35.0 g/dL Normal 32.0-35.0 [facility] Comment on above: Performed By: #### L [id number] ####[facility] ([facility] [place] [address] Hematocrit (Bld) [Volume fraction] 24.6 % Low 39.0-50.0 [facility] Comment on above: Performed By: #### L [id number] ####[facility] ([facility] [place] [address] Hemoglobin (Bld) [Mass/Vol] 8.6 g/dL Low 13.0-17.0 [facility] Comment on above: Performed By: #### L [id number] ####[facility] ([facility] [place] [address] MCH (RBC) [Entitic mass] 31.4 pg Normal 27.0-33.0 [facility] Comment on above: Performed By: #### L [id number] ####[facility] ([facility] [address] MCV (RBC) [Entitic vol] 89.8 fL Normal 82.0-98.0 [facility] Comment on above: Performed By: #### L [id number] ####[facility] ([facility] [place] [address] PLATELETS (10*3/UL) IN BLOOD AUTOMATED COUNT 205 10*3/uL Normal 150-400 [facility] Comment on above: Performed By: #### L [id number] ####[facility] ([facility] [place] [address] RBC (Bld) [#/Vol] 2.74 10*6/uL Low 4.20-5.70 [facility] Comment on above: Performed By: #### L [id number] ####[facility] ([facility] [place] [address] WBC (Bld) [#/Vol] 7.78 10*3/uL Normal 4.00-10.60 [facility] Comment on above: Performed By: #### L [id number] ####[facility] ([facility] [place] [address] Erythrocyte distribution width (RBC) [Ratio] 17.8 % High 11.5-15.0 [facility] Comment on above: Performed By: #### L [id number] ####[facility] ([facility] [place] [address] ERYTHROCYTE MEAN CORPUSCULAR HEMOGLOBIN CONCENTRATION (G/DL) BY AUTOMATED 34.1 g/dL Normal 32.0-35.0 [facility] Comment on above: Performed By: #### L [id number] ####[facility] ([facility] [place] [address] Hematocrit (Bld) [Volume fraction] 23.2 % Low 39.0-50.0 [facility] Comment on above: Performed By: #### L [id number] ####[facility] ([facility])[address] [place] [address] Hemoglobin (Bld) [Mass/Vol] 7.9 g/dL Low 13.0-17.0 [facility] Comment on above: Performed By: #### L [id number] ####[facility] ([facility])[address] [place] [address] MCH (RBC) [Entitic mass] 30.6 pg Normal 27.0-33.0 [facility] Comment on above: Performed By: #### L [id number] ####[facility] ([facility] [place] [address] MCV (RBC) [Entitic vol] 89.9 fL Normal 82.0-98.0 [facility] Comment on above: Performed By: #### L [id number] ####[facility] ([facility])[address] [place] [address] PLATELETS (10*3/UL) IN BLOOD AUTOMATED COUNT 199 10*3/uL Normal 150-400 [facility] Comment on above: Performed By: #### L [id number] ####[facility] ([facility])[address] [place] [address] RBC (Bld) [#/Vol] 2.58 10*6/uL Low 4.20-5.70 [facility] Comment on above: Performed By: #### L [id number] ####[facility] ([facility])[address] [place] [address] WBC (Bld) [#/Vol] 7.09 10*3/uL Normal 4.00-10.60 [facility] Comment on above: Performed By: #### L [id number] ####[facility] ([facility])[address] [place] [address] COMPREHENSIVE METABOLIC PANE Rogelio 02-26-2025 Albumin [Mass/Vol] 2.9 g/dL Low 3.5-5.7 [facility] Comment on above: Performed By: #### L [id number] ####[facility] [place] [address] ALP [Catalytic activity/Vol] 54 U/L Normal 34-104 [facility] Comment on above: Performed By: #### L [id number] ####[facility] ([facility] [place] [address] ALT [Catalytic activity/Vol] 24 U/L Normal 7-52 [facility] Comment on above: Performed By: #### L [id number] ####[facility] ([facility] [place] [address] Anion gap [Moles/Vol] 7 mmol/L Normal 7-20 [facility] Comment on above: Performed By: #### L [id number] ####[facility] ([facility] [place] [address] AST [Catalytic activity/Vol] 16 U/L Normal 13-39 [facility] Comment on above: Performed By: #### L [id number] ####[facility] ([facility] [place] [address] Bilirubin [Mass/Vol] 3.5 mg/dL High 0.3-1.0 [facility] Comment on above: Performed By: #### L [id number] ####[facility] ([facility] [place] [address] Calcium [Mass/Vol] 7.9 mg/dL Low 8.6-10.3 [facility] Comment on above: Performed By: #### L [id number] ####[facility] ([facility] [place] [address] Chloride [Moles/Vol] 103 mmol/L Normal 98-107 [facility] Comment on above: Performed By: #### L [id number] ####[facility] ([facility])[address] [place] [address] CO2 [Moles/Vol] 27 mmol/L Normal 21-31 [facility] Comment on above: Performed By: #### L [id number] ####[facility] ([facility] [place] [address] Creatinine [Mass/Vol] 0.80 mg/dL Normal 0.70-1.30 [facility] Comment on above: Performed By: #### L [id number] ####[facility] ([facility] [place] [address] GLOMERULAR FILTRATION RATE ML/MIN/1.73 SQ M.PREDICTED 102.6 mL/min/1.73m*2 Normal >60.0 [facility] Comment on above: Result Comment: [facility]???s estimated glomerular filtration rate (eGFR) will no longer include consideration of race in its calculation. The National Kidney Foundation???s eGFR Task Force developed new recommendations for [...] disproportionately affect any one group of individuals. Performed By: #### L [id number] ####[facility] ([facility] [place] [address] Glucose [Mass/Vol] 94 mg/dL Normal 70-100 [facility] Comment on above: Performed By: #### L [id number] ####[facility] ([facility] [place] [address] Potassium [Moles/Vol] 3.9 mmol/L Normal 3.5-5.1 [facility] Comment on above: Performed By: #### L [id number] ####[facility] ([facility] [place] [address] Protein [Mass/Vol] 4.8 g/dL Low 6.0-8.3 [facility] Comment on above: Performed By: #### L [id number] ####[facility] ([facility])[address] [place] [address] Sodium [Moles/Vol] 133 mmol/L Low 136-145 [facility] Comment on above: Performed By: #### L [id number] ####[facility] ([facility])[address] [place] [address] Urea nitrogen [Mass/Vol] 25 mg/dL Normal 7-25 [facility] Comment on above: Performed By: #### L [id number] ####[facility] ([facility])[address] [place] [address] UREA NITROGEN/CREATININ E (MASS RATIO) IN SER/PLAS 31.3 Normal [facility] Comment on above: Performed By: #### L [id number] ####[facility] [place] [address] FERRITINon 02-26-2025 FERRITIN (NG/ML) IN SER/PLAS 234.0 ng/mL Normal 24.0-336.0 [facility] Comment on above: Performed By: #### L [id number] ####[facility] ([facility])[address] [place] [address] FOLATEon 02-26-2025 FOLATE (NG/ML) IN SER/PLAS 17.66 ng/mL Normal 6.6-1000 [facility] Comment on above: Performed By: #### L [id number] ####[facility] ([facility])[address] [place] [address] IRON AND TIBCon 02-26-2025 IRON (UG/DL) IN SER/PLAS 20 ug/dL Low 50-212 [facility] Comment on above: Performed By: #### L [id number] ####[facility] ([facility])[address] [place] [address] IRON BINDING CAPACITY (UG/DL) IN SER/PLAS 227 ug/dL Low 250-450 [facility] Comment on above: Performed By: #### L [id number] ####[facility] ([facility])[address] [place] [address] IRON BINDING CAPACITY.UNSATURAT ED (UG/DL) IN SER/PLAS 207.0 ug/dL Normal 155.0-355.0 [facility] Comment on above: Performed By: #### L [id number] ####[facility] ([facility] [place] [address] IRON SATURATION (%) IN SER/PLAS 9 % Low 20-50 [facility] Comment on above: Performed By: #### L [id number] ####[facility] ([facility] [place] [address] MAGNESIUMon 02-26-2025 Magnesium [Mass/Vol] 2.2 mg/dL Normal 1.9-2.7 [facility] Comment on above: Performed By: #### L [id number] ####[facility] ([facility] [place] [address] PHOSPHORUSon 02-26-2025 Magnesium [Mass/Vol] 1.8 mg/dL Low 2.5-5.0 [facility] Comment on above: Performed By: #### L [id number] ####[facility] ([facility] [place] [address] RETICULOCYTE PANELon 025 HEMOGLOBIN (PG) IN RETICULOCYTES 33.0 pg Normal 28.0-36.0 [facility] Comment on above: Performed By: #### L [id number] ####[facility] ([facility] [place] [address] IMMATURE RETICULOCYTE FRACTION (%) 36.5 % High 2-16 [facility] Comment on above: Performed By: #### L [id number] ####[facility] ([facility] [place] [address] RETICULOCYTES (10*6/UL) IN BLOOD 0.0781 10*6/uL Normal 0.0250-0.1000 [facility] Comment on above: Performed By: #### L [id number] ####[facility] ([facility] [place] [address] Reticulocytes/100 RBC (Bld) 2.79 % High 0.50-1.80 [facility] Comment on above: Performed By: #### L [id number] ####[facility] ([facility])[address] [place] [address] VITAMIN B12on 02-26-2025 Cobalamin (Vitamin B12) [Mass/Vol] 1129 pg/mL High 180-914 [facility] Comment on above: Result Comment: REFE RENCE RANGES:180-914 pg/mL [id number] pg/mL Indeterminate<145 pg/mL Deficient Performed By: #### L [id number] ####[facility] ([facility] [address] 30on 02-25-2025 30 Normal [facility] CBCon 02-25-2025 Erythrocyte distribution width (RBC) [Ratio] 17.7 % High 11.5-15.0 [facility] Comment on above: Performed By: #### L [id number] ####[facility] ([facility])[address] [place] [address] ERYTHROCYTE MEAN CORPUSCULAR HEMOGLOBIN CONCENTRATION (G/DL) BY AUTOMATED 34.8 g/dL Normal 32.0-35.0 [facility] Comment on above: Performed By: #### L [id number] ####[facility] ([facility])[address] [place] [address] Hematocrit (Bld) [Volume fraction] 23.3 % Low 39.0-50.0 [facility] Comment on above: Performed By: #### L [id number] ####[facility] ([facility])[address] [place], [place] [address] Hemoglobin (Bld) [Mass/Vol] 8.1 g/dL Low 13.0-17.0 [facility] Comment on above: Performed By: #### L [id number] ####[facility] ([facility])[address] [place] [address] MCH (RBC) [Entitic mass] 31.2 pg Normal 27.0-33.0 [facility] Comment on above: Performed By: #### L [id number] ####[facility] ([facility] [place] [address] MCV (RBC) [Entitic vol] 89.6 fL Normal 82.0-98.0 [facility] Comment on above: Performed By: #### L [id number] ####[facility] ([facility] [place] [address] PLATELETS (10*3/UL) IN BLOOD AUTOMATED COUNT 180 10*3/uL Normal 150-400 [facility] Comment on above: Performed By: #### L [id number] ####[facility] ([facility] [place], [place] [address] RBC (Bld) [#/Vol] 2.60 10*6/uL Low 4.20-5.70 [facility] Comment on above: Performed By: #### L [id number] ####[facility] ([facility] [place], [place] [address] WBC (Bld) [#/Vol] 7.74 10*3/uL Normal 4.00-10.60 [facility] Comment on above: Performed By: #### L [id number] ####[facility] ([facility] [place] [address] Erythrocyte distribution width (RBC) [Ratio] 17.7 % High 11.5-15.0 [facility] Comment on above: Performed By: #### L [id number] ####[facility] ([facility] [place], [place] [address] ERYTHROCYTE MEAN CORPUSCULAR HEMOGLOBIN CONCENTRATION (G/DL) BY AUTOMATED 34.6 g/dL Normal 32.0-35.0 [facility] Comment on above: Performed By: #### L [id number] ####[facility] ([facility])[address] [place], [place] [address] Hematocrit (Bld) [Volume fraction] 26.0 % Low 39.0-50.0 [facility] Comment on above: Performed By: #### L [id number] ####[facility] ([facility] [place] [address] Hemoglobin (Bld) [Mass/Vol] 9.0 g/dL Low 13.0-17.0 [facility] Comment on above: Performed By: #### L [id number] ####[facility] ([facility] [address] MCH (RBC) [Entitic mass] 31.0 pg Normal 27.0-33.0 [facility] Comment on above: Performed By: #### L [id number] ####[facility] ([facility] [place] [address] MCV (RBC) [Entitic vol] 89.7 fL Normal 82.0-98.0 [facility] Comment on above: Performed By: #### L [id number] ####[facility] ([facility] [place] [address] PLATELETS (10*3/UL) IN BLOOD AUTOMATED COUNT 180 10*3/uL Normal 150-400 [facility] Comment on above: Performed By: #### L [id number] ####[facility] ([facility] [place] [address] RBC (Bld) [#/Vol] 2.90 10*6/uL Low 4.20-5.70 [facility] Comment on above: Performed By: #### L [id number] ####[facility] ([facility] [place] [address] WBC (Bld) [#/Vol] 8.04 10*3/uL Normal 4.00-10.60 [facility] Comment on above: Performed By: #### L [id number] ####[facility] ([facility] [place] [address] Erythrocyte distribution width (RBC) [Ratio] 17.7 % High 11.5-15.0 [facility] Comment on above: Performed By: #### L [id number] ####[facility] ([facility] [place] [address] ERYTHROCYTE MEAN CORPUSCULAR HEMOGLOBIN CONCENTRATION (G/DL) BY AUTOMATED 34.2 g/dL Normal 32.0-35.0 [facility] Comment on above: Performed By: #### L [id number] ####[facility] ([facility] [place] [address] Hematocrit (Bld) [Volume fraction] 24.3 % Low 39.0-50.0 [facility] Comment on above: Performed By: #### L [id number] ####[facility] ([facility] [place] [address] Hemoglobin (Bld) [Mass/Vol] 8.3 g/dL Low 13.0-17.0 [facility] Comment on above: Performed By: #### L [id number] ####[facility] ([facility] [place] [address] MCH (RBC) [Entitic mass] 30.6 pg Normal 27.0-33.0 [facility] Comment on above: Performed By: #### L [id number] ####[facility] ([facility] [place] [address] MCV (RBC) [Entitic vol] 89.7 fL Normal 82.0-98.0 [facility] Comment on above: Performed By: #### L [id number] ####[facility] ([facility] [place] [address] PLATELETS (10*3/UL) IN BLOOD AUTOMATED COUNT 158 10*3/uL Normal 150-400 [facility] Comment on above: Performed By: #### L [id number] ####[facility] ([facility] [place] [address] RBC (Bld) [#/Vol] 2.71 10*6/uL Low 4.20-5.70 [facility] Comment on above: Performed By: #### L [id number] ####[facility] ([facility])[address] [place] [address] WBC (Bld) [#/Vol] 7.39 10*3/uL Normal 4.00-10.60 [facility] Comment on above: Performed By: #### L [id number] ####[facility] ([facility] [place] [address] Erythrocyte distribution width (RBC) [Ratio] 15.8 % High 11.5-15.0 [facility] Comment on above: Performed By: #### L [id number] ####[facility] ([facility] [place] [address] ERYTHROCYTE MEAN CORPUSCULAR HEMOGLOBIN CONCENTRATION (G/DL) BY AUTOMATED 33.9 g/dL Normal 32.0-35.0 [facility] Comment on above: Performed By: #### L [id number] ####[facility] ([facility] [place] [address] Hematocrit (Bld) [Volume fraction] 22.7 % Low 39.0-50.0 [facility] Comment on above: Performed By: #### L [id number] ####[facility] ([facility] [place] [address] Hemoglobin (Bld) [Mass/Vol] 7.7 g/dL Low 13.0-17.0 [facility] Comment on above: Performed By: #### L [id number] ####[facility] ([facility] [place] [address] MCH (RBC) [Entitic mass] 31.0 pg Normal 27.0-33.0 [facility] Comment on above: Performed By: #### L [id number] ####[facility] ([facility] [place] [address] MCV (RBC) [Entitic vol] 91.5 fL Normal 82.0-98.0 [facility] Comment on above: Performed By: #### L [id number] ####[facility] ([facility] [address] PLATELETS (10*3/UL) IN BLOOD AUTOMATED COUNT 172 10*3/uL Normal 150-400 [facility] Comment on above: Performed By: #### L [id number] ####[facility] ([facility] [address] RBC (Bld) [#/Vol] 2.48 10*6/uL Low 4.20-5.70 [facility] Comment on above: Performed By: #### L [id number] ####[facility] ([facility] [address] WBC (Bld) [#/Vol] 8.90 10*3/uL Normal 4.00-10.60 [facility] Comment on above: Performed By: #### L [id number] ####[facility] ([facility] [place] [address] Erythrocyte distribution width (RBC) [Ratio] 15.8 % High 11.5-15.0 [facility] Comment on above: Performed By: #### L [id number] ####[facility] ([facility] [address] ERYTHROCYTE MEAN CORPUSCULAR HEMOGLOBIN CONCENTRATION (G/DL) BY AUTOMATED 35.0 g/dL Normal 32.0-35.0 [facility] Comment on above: Performed By: #### L [id number] ####[facility] ([facility])[address] [place] [address] Hematocrit (Bld) [Volume fraction] 23.7 % Low 39.0-50.0 [facility] Comment on above: Performed By: #### L [id number] ####[facility] ([facility])[address] [place] [address] Hemoglobin (Bld) [Mass/Vol] 8.3 g/dL Low 13.0-17.0 [facility] Comment on above: Performed By: #### L [id number] ####[facility] ([facility])[address] [address] MCH (RBC) [Entitic mass] 31.7 pg Normal 27.0-33.0 [facility] Comment on above: Performed By: #### L [id number] ####[facility] ([facility] [place] [address] MCV (RBC) [Entitic vol] 90.5 fL Normal 82.0-98.0 [facility] Comment on above: Performed By: #### L [id number] ####[facility] ([facility] [place] [address] PLATELETS (10*3/UL) IN BLOOD AUTOMATED COUNT 178 10*3/uL Normal 150-400 [facility] Comment on above: Performed By: #### L [id number] ####[facility] ([facility] [place] [address] RBC (Bld) [#/Vol] 2.62 10*6/uL Low 4.20-5.70 [facility] Comment on above: Performed By: #### L [id number] ####[facility] ([facility] [place] [address] WBC (Bld) [#/Vol] 10.11 10*3/uL Normal 4.00-10.60 [facility] Comment on above: Performed By: #### L [id number] ####[facility] ([facility] [place] [address] COMPREHENSIVE METABOLIC PANE Rogelio 02-25-2025 Albumin [Mass/Vol] 3.1 g/dL Low 3.5-5.7 [facility] Comment on above: Performed By: #### L [id number] ####[facility] ([facility] [place] [address] ALP [Catalytic activity/Vol] 54 U/L Normal 34-104 [facility] Comment on above: Performed By: #### L [id number] ####[facility] ([facility] [place] [address] ALT [Catalytic activity/Vol] 27 U/L Normal 7-52 [facility] Comment on above: Performed By: #### L [id number] ####[facility] ([facility] [place] [address] Anion gap [Moles/Vol] 9 mmol/L Normal 7-20 [facility] Comment on above: Performed By: #### L [id number] ####[facility] ([facility] [place] [address] AST [Catalytic activity/Vol] 19 U/L Normal 13-39 [facility] Comment on above: Performed By: #### L [id number] ####[facility] ([facility] [place] [address] Bilirubin [Mass/Vol] 2.8 mg/dL High 0.3-1.0 [facility] Comment on above: Performed By: #### L [id number] ####[facility] ([facility] [place] [address] Calcium [Mass/Vol] 8.1 mg/dL Low 8.6-10.3 [facility] Comment on above: Performed By: #### L [id number] ####[facility] ([facility] [place] [address] Chloride [Moles/Vol] 99 mmol/L Normal 98-107 [facility] Comment on above: Performed By: #### L [id number] ####[facility] ([facility] [place] [address] CO2 [Moles/Vol] 29 mmol/L Normal 21-31 [facility] Comment on above: Performed By: #### L [id number] ####[facility] ([facility] [place] [address] Creatinine [Mass/Vol] 1.36 mg/dL High 0.70-1.30 [facility] Comment on above: Performed By: #### L [id number] ####[facility] ([facility] [place] [address] GLOMERULAR FILTRATION RATE ML/MIN/1.73 SQ M.PREDICTED 60.3 mL/min/1.73m*2 Normal >60.0 [facility] Comment on above: Result Comment: [facility]???s estimated glomerular filtration rate (eGFR) will no longer include consideration of race in its calculation. The [employer]???s eGFR Task Force developed new recommendations for [...] disproportionately affect any one group of individuals. Performed By: #### L [id number] ####[facility] ([facility])[address] [place] [address] Glucose [Mass/Vol] 102 mg/dL High 70-100 [facility] Comment on above: Performed By: #### L [id number] ####[facility] ([facility])[address] [place] [address] Potassium [Moles/Vol] 4.1 mmol/L Normal 3.5-5.1 [facility] Comment on above: Performed By: #### L [id number] ####[facility] ([facility])[address] [place] [address] Protein [Mass/Vol] 4.9 g/dL Low 6.0-8.3 [facility] Comment on above: Performed By: #### L [id number] ####[facility] ([facility])[address] [place] [address] Sodium [Moles/Vol] 133 mmol/L Low 136-145 [facility] Comment on above: Performed By: #### L [id number] ####[facility] ([facility])[address] [place] [address] Urea nitrogen [Mass/Vol] 40 mg/dL High 7-25 [facility] Comment on above: Performed By: #### L [id number] ####[facility] ([facility] [place] [address] UREA NITROGEN/CREATININ E (MASS RATIO) IN SER/PLAS 29.4 Normal [facility] Comment on above: Performed By: #### L [id number] ####[facility] ([facility] [place] [address] CTA ABDOMEN PELVIS W IV CONT RASTon 02-25-2025 CTA ABDOMEN PELVIS W IV CONTRAST Normal [facility] DIGOXIN LEVELon 02-25-2025 DIGOXIN (NG/ML) IN SER/PLAS 2.3 ng/mL Critically high 0.7-2 [facility] Comment on above: Performed By: #### L [id number] ####[facility] ([facility] [place] [address] HEMOGLOBIN AND HEMATOCRIT, B LOODon 02-25-2025 Hematocrit (Bld) [Volume fraction] 22.8 % Low 39.0-50.0 [facility] Comment on above: Performed By: #### L [id number] ####[facility] ([facility] [place] [address] Hemoglobin (Bld) [Mass/Vol] 7.9 g/dL Low 13.0-17.0 [facility] Comment on above: Performed By: #### L [id number] ####[facility] ([facility] [place] [address] MAGNESIUMon 02-25-2025 Magnesium [Mass/Vol] 2.3 mg/dL Normal 1.9-2.7 [facility] Comment on above: Performed By: #### L [id number] ####[facility] ([facility] [place] [address] PHOSPHORUSon 02-25-2025 Magnesium [Mass/Vol] 2.6 mg/dL Normal 2.5-5.0 [facility] Comment on above: Performed By: #### L [id number] ####[facility] ([facility])[address] [place] [address] CBCon 02-24-2025 Erythrocyte distribution width (RBC) [Ratio] 15.8 % High 11.5-15.0 [facility] Comment on above: Performed By: #### L [id number] ####[facility] ([facility] [place] [address] ERYTHROCYTE MEAN CORPUSCULAR HEMOGLOBIN CONCENTRATION (G/DL) BY AUTOMATED 35.2 g/dL High 32.0-35.0 [facility] Comment on above: Performed By: #### L [id number] ####[facility] ([facility] [place] [address] Hematocrit (Bld) [Volume fraction] 24.4 % Low 39.0-50.0 [facility] Comment on above: Performed By: #### L [id number] ####[facility] ([facility] [place] [address] Hemoglobin (Bld) [Mass/Vol] 8.6 g/dL Low 13.0-17.0 [facility] Comment on above: Performed By: #### L [id number] ####[facility] ([facility] [place] [address] MCH (RBC) [Entitic mass] 31.5 pg Normal 27.0-33.0 [facility] Comment on above: Performed By: #### L [id number] ####[facility] ([facility])[address] [place] [address] MCV (RBC) [Entitic vol] 89.4 fL Normal 82.0-98.0 [facility] Comment on above: Performed By: #### L [id number] ####[facility] ([facility])[address] [place] [address] PLATELETS (10*3/UL) IN BLOOD AUTOMATED COUNT 182 10*3/uL Normal 150-400 [facility] Comment on above: Performed By: #### L [id number] ####[facility] ([facility])[address] [place] [address] RBC (Bld) [#/Vol] 2.73 10*6/uL Low 4.20-5.70 [facility] Comment on above: Performed By: #### L [id number] ####[facility] ([facility])[address] [place] [address] WBC (Bld) [#/Vol] 12.23 10*3/uL High 4.00-10.60 [facility] Comment on above: Performed By: #### L [id number] ####[facility] ([facility] [place] [address] Erythrocyte distribution width (RBC) [Ratio] 15.8 % High 11.5-15.0 [facility] Comment on above: Performed By: #### L [id number] ####[facility] ([facility] [place] [address] ERYTHROCYTE MEAN CORPUSCULAR HEMOGLOBIN CONCENTRATION (G/DL) BY AUTOMATED 34.9 g/dL Normal 32.0-35.0 [facility] Comment on above: Performed By: #### L [id number] ####[facility] ([facility] [place] [address] Hematocrit (Bld) [Volume fraction] 26.1 % Low 39.0-50.0 [facility] Comment on above: Performed By: #### L [id number] ####[facility] ([facility] [place] [address] Hemoglobin (Bld) [Mass/Vol] 9.1 g/dL Low 13.0-17.0 [facility] Comment on above: Performed By: #### L [id number] ####[facility] ([facility] [place] [address] MCH (RBC) [Entitic mass] 31.5 pg Normal 27.0-33.0 [facility] Comment on above: Performed By: #### L [id number] ####[facility] ([facility])[address] [place] [address] MCV (RBC) [Entitic vol] 90.3 fL Normal 82.0-98.0 [facility] Comment on above: Performed By: #### L [id number] ####[facility] ([facility])[address] [place] [address] PLATELETS (10*3/UL) IN BLOOD AUTOMATED COUNT 196 10*3/uL Normal 150-400 [facility] Comment on above: Performed By: #### L [id number] ####[facility] ([facility])[address] [place] [address] RBC (Bld) [#/Vol] 2.89 10*6/uL Low 4.20-5.70 [facility] Comment on above: Performed By: #### L [id number] ####[facility] ([facility])[address] [place] [address] WBC (Bld) [#/Vol] 16.83 10*3/uL High 4.00-10.60 [facility] Comment on above: Performed By: #### L [id number] ####[facility] ([facility] [place] [address] Erythrocyte distribution width (RBC) [Ratio] 15.9 % High 11.5-15.0 [facility] Comment on above: Performed By: #### L [id number] ####[facility] ([facility])[address] [place] [address] ERYTHROCYTE MEAN CORPUSCULAR HEMOGLOBIN CONCENTRATION (G/DL) BY AUTOMATED 34.1 g/dL Normal 32.0-35.0 [facility] Comment on above: Performed By: #### L [id number] ####[facility] ([facility])[address] [place] [address] Hematocrit (Bld) [Volume fraction] 26.4 % Low 39.0-50.0 [facility] Comment on above: Performed By: #### L [id number] ####[facility] ([facility])[address] [place] [address] Hemoglobin (Bld) [Mass/Vol] 9.0 g/dL Low 13.0-17.0 [facility] Comment on above: Performed By: #### L [id number] ####[facility] [place] [address] MCH (RBC) [Entitic mass] 31.5 pg Normal 27.0-33.0 [facility] Comment on above: Performed By: #### L [id number] ####[facility] ([facility] [place] [address] MCV (RBC) [Entitic vol] 92.3 fL Normal 82.0-98.0 [facility] Comment on above: Performed By: #### L [id number] ####[facility] ([facility] [place] [address] PLATELETS (10*3/UL) IN BLOOD AUTOMATED COUNT 173 10*3/uL Normal 150-400 [facility] Comment on above: Performed By: #### L [id number] ####[facility] ([facility] [place] [address] RBC (Bld) [#/Vol] 2.86 10*6/uL Low 4.20-5.70 [facility] Comment on above: Performed By: #### L [id number] ####[facility] ([facility] [place] [address] WBC (Bld) [#/Vol] 14.22 10*3/uL High 4.00-10.60 [facility] Comment on above: Performed By: #### L [id number] ####[facility] ([facility] [place] [address] CHLORIDE, URINE, RANDOMon Chloride (U) [Moles/Vol] mmol/L Low 110-250 [facility] Comment on above: Performed By: #### L [id number] ####[facility] ([facility] [place] [address] COMPREHENSIVE METABOLIC PANE Rogelio 02-24-2025 Albumin [Mass/Vol] 3.3 g/dL Low 3.5-5.7 [facility] Comment on above: Performed By: #### L [id number] ####[facility] ([facility])[address] [place] [address] ALP [Catalytic activity/Vol] 58 U/L Normal 34-104 [facility] Comment on above: Performed By: #### L [id number] ####[facility] ([facility])[address] [place] [address] ALT [Catalytic activity/Vol] 32 U/L Normal 7-52 [facility] Comment on above: Performed By: #### L [id number] ####[facility] ([facility])[address] [place] [address] Anion gap [Moles/Vol] 12 mmol/L Normal 7-20 [facility] Comment on above: Performed By: #### L [id number] ####[facility] ([facility])[address] [place] [address] AST [Catalytic activity/Vol] 24 U/L Normal 13-39 [facility] Comment on above: Performed By: #### L [id number] ####[facility] ([facility])[address] [place] [address] Bilirubin [Mass/Vol] 3.0 mg/dL High 0.3-1.0 [facility] Comment on above: Performed By: #### L [id number] ####[facility] ([facility]AKER)[address] [place] [address] Calcium [Mass/Vol] 8.5 mg/dL Low 8.6-10.3 [facility] Comment on above: Performed By: #### L [id number] ####[facility] ([facility])[address] [place] [address] Chloride [Moles/Vol] 99 mmol/L Normal 98-107 [facility] Comment on above: Performed By: #### L [id number] ####[facility] ([facility])[address] [place] [address] CO2 [Moles/Vol] 28 mmol/L Normal 21-31 [facility] Comment on above: Performed By: #### L [id number] ####[facility] ([facility] [place] [address] Creatinine [Mass/Vol] 2.43 mg/dL High 0.70-1.30 [facility] Comment on above: Performed By: #### L [id number] ####[facility] ([facility] [place] [address] GLOMERULAR FILTRATION RATE ML/MIN/1.73 SQ M.PREDICTED 30.1 mL/min/1.73m*2 Low >60.0 [facility] Comment on above: Result Comment: [facility]???s estimated glomerular filtration rate (eGFR) will no longer include consideration of race in its calculation. The National Kidney Foundation???s eGFR Task Force developed new recommendations for [...] disproportionately affect any one group of individuals. Performed By: #### L [id number] ####[facility] ([facility] [place] [address] Glucose [Mass/Vol] 104 mg/dL High 70-100 [facility] Comment on above: Performed By: #### L [id number] ####[facility] ([facility] [place] [address] Potassium [Moles/Vol] 4.1 mmol/L Normal 3.5-5.1 [facility] Comment on above: Performed By: #### L [id number] ####[facility] ([facility] [place] [address] Protein [Mass/Vol] 5.2 g/dL Low 6.0-8.3 [facility] Comment on above: Performed By: #### L [id number] ####[facility] ([facility] [place] [address] Sodium [Moles/Vol] 135 mmol/L Low 136-145 [facility] Comment on above: Performed By: #### L [id number] ####[facility] ([facility] [place] [address] Urea nitrogen [Mass/Vol] 52 mg/dL High 7-25 [facility] Comment on above: Performed By: #### L [id number] ####[facility] ([facility] [place] [address] UREA NITROGEN/CREATININ E (MASS RATIO) IN SER/PLAS 21.4 Normal [facility] Comment on above: Performed By: #### L [id number] ####[facility] ([facility] [place] [address] CONSULTon 02-24-2025 CONSULT Normal [facility] CREATININE, URINE, RANDOMon 02-24-2025 Creatinine (U) [Mass/Vol] 170.0 mg/dL Normal 26-299 [facility] Comment on above: Performed By: #### L [id number] ####[facility] ([facility] [place] [address] MAGNESIUMon 02-24-2025 Magnesium [Mass/Vol] 2.1 mg/dL Normal 1.9-2.7 [facility] Comment on above: Performed By: #### L [id number] ####[facility] ([facility] [place] [address] OSMOLALITY, URINEon 02-25-20 25 OSMOLALITY, URINE 686 mOsm/kg Normal 80-1300 [facility] Comment on above: Result Comment: Test Performed by [employer] [address] [place] [address] - Released 02/24/2025 17:40 Performed By: #### L [id number] ####[employer] [id number] [place] [address] PHOSPHORUSon 02-24-2025 Magnesium [Mass/Vol] 5.4 mg/dL High 2.5-5.0 [facility] Comment on above: Performed By: #### L [id number] ####[facility] ([facility]ER)[address] [place] [address] POTASSIUM, URINE, RANDOMon 0 02-24-2025 Potassium (U) [Moles/Vol] 107 mmol/L Normal [facility] Comment on above: Performed By: #### L [id number] ####[facility] ([facility])[address] [place] [address] SODIUM, URINE, RANDOMon - Sodium (U) [Moles/Vol] 15 mmol/L Normal [facility] Comment on above: Performed By: #### L [id number] ####[facility] ([facility] [place] [address] URINALYSIS WITH MICROSCOPICo n 02-24-2025 BILIRUBIN, TOTAL PRESENCE IN URINE Negative Normal Negative [facility] Comment on above: Performed By: #### L [id number] ####[facility] ([facility] [place] [address] CASTS IN URINE Present Abnormal None Seen [facility] Comment on above: Performed By: #### L [id number] ####[facility] ([facility] [place] [address] Clarity (U) Cloudy Abnormal Clear [facility] Comment on above: Performed By: #### L [id number] ####[facility] ([facility]ER)[address] [place] [address] Color (U) Yellow Normal Colorless, Yellow, Light-Yellow [facility] Comment on above: Performed By: #### L [id number] ####[facility] ([facility])[address] [place] [address] GLUCOSE (MG/DL) IN URINE Normal Normal Normal [facility] Comment on above: Performed By: #### L [id number] ####[facility] ([facility])[address] [place] [address] HEMOGLOBIN PRESENCE IN URINE Large Abnormal Negative [facility] Comment on above: Performed By: #### L [id number] ####[facility] ([facility] [place] [address] HYALINE CASTS GRADED/LPF IN URINE SEDIMENT BY MICROSCOPY 3-5 Abnormal 0-2 [facility] Comment on above: Performed By: #### L [id number] ####[facility] ([facility] [place] [address] Ketones Ql (U) Negative Normal Negative [facility] Comment on above: Performed By: #### L [id number] ####[facility] ([facility] [place] [address] LEUKOCYTE ESTERASE PRESENCE IN URINE BY TEST STRIP Moderate Abnormal Negative [facility] Comment on above: Performed By: #### L [id number] ####[facility] ([facility] [place] [address] MUCUS (#/LPF) IN URINE SEDIMENT Moderate Abnormal None Seen, Occasional, Few [facility] Comment on above: Performed By: #### L [id number] ####[facility] ([facility] [place] [address] NITRITE PRESENCE IN URINE Negative Normal Negative [facility] Comment on above: Performed By: #### L [id number] ####[facility] ([facility] [place] [address] pH (U) 5.5 [pH] Normal 5.0-8.0 [facility] Comment on above: Performed By: #### L [id number] ####[facility] ([facility] [place] [address] Protein (U) [Mass/Vol] 30 mg/dL Abnormal Negative [facility] Comment on above: Performed By: #### L [id number] ####[facility] ([facility] [place] [address] RBC (#/HPF) IN URINE SEDIMENT >20 Abnormal None Seen, 0-2 [facility] Comment on above: Performed By: #### L [id number] ####[facility] ([facility] [place] [address] Specific gravity (U) [Rel density] 1.036 High 1.010-1.030 [facility] Comment on above: Performed By: #### L [id number] ####[facility] ([facility]AKER)[address] [place] [address] SQUAMOUS EPITHELIAL CELLS (#/LPF) IN URINE SEDIMENT Moderate Abnormal None Seen, Occasional, Few [facility] Comment on above: Performed By: #### L [id number] ####[facility] ([facility]ER)[address] [place] [address] UROBILINOGEN (MG/DL) IN URINE Normal Normal Normal [facility] Comment on above: Performed By: #### L [id number] ####[facility] ([facility]ER)[address] [place] [address] WBC (LEUKOCYTE) (#/HPF) IN URINE SEDIMENT 21-50 Abnormal None Seen, 0-2 [facility] Comment on above: Performed By: #### L [id number] ####[facility] ([facility]AKER)[address] [place] [address] 30on 02-23-2024 30 Normal [facility] BASIC METABOLIC PANELon 01-30 Anion gap [Moles/Vol] 15 mmol/L Normal 7-20 [facility] Comment on above: Performed By: #### L [id number] ####[facility] ([facility]ER)[address] [place] [address] Calcium [Mass/Vol] 9.1 mg/dL Normal 8.6-10.3 [facility] Comment on above: Performed By: #### L [id number] ####[facility] ([facility]ER)[address] [place] [address] Chloride [Moles/Vol] 102 mmol/L Normal 98-107 [facility] Comment on above: Performed By: #### L [id number] ####[facility] ([facility]AKER)[address] [place] [address] CO2 [Moles/Vol] 25 mmol/L Normal 21-31 [facility] Comment on above: Performed By: #### L [id number] ####[facility] ([facility] [place] [address] Creatinine [Mass/Vol] 2.01 mg/dL High 0.70-1.30 [facility] Comment on above: Performed By: #### L [id number] ####[facility] ([facility] [place] [address] GLOMERULAR FILTRATION RATE ML/MIN/1.73 SQ M.PREDICTED 37.7 mL/min/1.73m*2 Low >60.0 [facility] Comment on above: Result Comment: [facility]???s estimated glomerular filtration rate (eGFR) will no longer include consideration of race in its calculation. The National Kidney Foundation???s eGFR Task Force developed new recommendations for [...] disproportionately affect any one group of individuals. Performed By: #### L [id number] ####[facility] ([facility] [place] [address] Glucose [Mass/Vol] 128 mg/dL High 70-100 [facility] Comment on above: Performed By: #### L [id number] ####[facility] ([facility] [place] [address] Potassium [Moles/Vol] 4.5 mmol/L Normal 3.5-5.1 [facility] Comment on above: Performed By: #### L [id number] ####[facility] ([facility] [place] [address] Sodium [Moles/Vol] 137 mmol/L Normal 136-145 [facility] Comment on above: Performed By: #### L [id number] ####[facility] ([facility] [place] [address] Urea nitrogen [Mass/Vol] 35 mg/dL High 7-25 [facility] Comment on above: Performed By: #### L [id number] ####[facility] ([facility] [address] UREA NITROGEN/CREATININ E (MASS RATIO) IN SER/PLAS 17.4 Normal [facility] Comment on above: Performed By: #### L [id number] ####[facility] ([facility] [address] BLOOD CULTUREon 02-23-2025 Bacteria identified Cx Nom (Bld) No growth at 5 days Normal [facility] Comment on above: Performed By: #### L [id number] ####[facility] ([facility] [address] Bacteria identified Cx Nom (Bld) No growth at 5 days [facility] Comment on above: Order Comment: From a different site than #1. Performed By: #### L [id number] ####[facility] ([facility] [address] CBCon 02-23-2025 Erythrocyte distribution width (RBC) [Ratio] 15.9 % High 11.5-15.0 [facility] Comment on above: Performed By: #### L [id number] ####[facility] ([facility] [place] [address] ERYTHROCYTE MEAN CORPUSCULAR HEMOGLOBIN CONCENTRATION (G/DL) BY AUTOMATED 34.6 g/dL Normal 32.0-35.0 [facility] Comment on above: Performed By: #### L [id number] ####[facility] ([facility] [place] [address] Hematocrit (Bld) [Volume fraction] 25.4 % Low 39.0-50.0 [facility] Comment on above: Performed By: #### L [id number] ####[facility] ([facility] [place] [address] Hemoglobin (Bld) [Mass/Vol] 8.8 g/dL Low 13.0-17.0 [facility] Comment on above: Performed By: #### L [id number] ####[facility] (BEAKER)[address] [address] MCH (RBC) [Entitic mass] 31.5 pg Normal 27.0-33.0 [facility] Comment on above: Performed By: #### L [id number] ####[facility] ([facility]AKER)[address] [place] [address] MCV (RBC) [Entitic vol] 91.0 fL Normal 82.0-98.0 [facility] Comment on above: Performed By: #### L [id number] ####[facility] ([facility] [place] [address] PLATELETS (10*3/UL) IN BLOOD AUTOMATED COUNT 171 10*3/uL Normal 150-400 [facility] Comment on above: Performed By: #### L [id number] ####[facility] ([facility] [place] [address] RBC (Bld) [#/Vol] 2.79 10*6/uL Low 4.20-5.70 [facility] Comment on above: Performed By: #### L [id number] ####[facility] ([facility]AKER)[address] [place] [address] WBC (Bld) [#/Vol] 14.02 10*3/uL High 4.00-10.60 [facility] Comment on above: Performed By: #### L [id number] ####[facility] ([facility]ER)[address] [place] [address] Erythrocyte distribution width (RBC) [Ratio] 15.9 % High 11.5-15.0 [facility] Comment on above: Performed By: #### L [id number] ####[facility] ([facility]ER)[address] [place] [address] ERYTHROCYTE MEAN CORPUSCULAR HEMOGLOBIN CONCENTRATION (G/DL) BY AUTOMATED 35.4 g/dL High 32.0-35.0 [facility] Comment on above: Performed By: #### L [id number] ####[facility] ([facility] [place] [address] Hematocrit (Bld) [Volume fraction] 28.0 % Low 39.0-50.0 [facility] Comment on above: Performed By: #### L [id number] ####[facility] ([facility] [place] [address] Hemoglobin (Bld) [Mass/Vol] 9.9 g/dL Low 13.0-17.0 [facility] Comment on above: Performed By: #### L [id number] ####[facility] ([facility] [place] [address] MCH (RBC) [Entitic mass] 31.6 pg Normal 27.0-33.0 [facility] Comment on above: Performed By: #### L [id number] ####[facility] ([facility] [place] [address] MCV (RBC) [Entitic vol] 89.5 fL Normal 82.0-98.0 [facility] Comment on above: Performed By: #### L [id number] ####[facility] ([facility] [place] [address] PLATELETS (10*3/UL) IN BLOOD AUTOMATED COUNT 192 10*3/uL Normal 150-400 [facility] Comment on above: Performed By: #### L [id number] ####[facility] ([facility] [place] [address] RBC (Bld) [#/Vol] 3.13 10*6/uL Low 4.20-5.70 [facility] Comment on above: Performed By: #### L [id number] ####[facility] ([facility] [place] [address] WBC (Bld) [#/Vol] 16.62 10*3/uL High 4.00-10.60 [facility] Comment on above: Performed By: #### L [id number] ####[facility] ([facility] [place] [address] Erythrocyte distribution width (RBC) [Ratio] 15.8 % High 11.5-15.0 [facility] Comment on above: Performed By: #### L [id number] ####[facility] ([facility] [place] [address] ERYTHROCYTE MEAN CORPUSCULAR HEMOGLOBIN CONCENTRATION (G/DL) BY AUTOMATED 35.3 g/dL High 32.0-35.0 [facility] Comment on above: Performed By: #### L [id number] ####[facility] ([facility] [place] [address] Hematocrit (Bld) [Volume fraction] 29.5 % Low 39.0-50.0 [facility] Comment on above: Performed By: #### L [id number] ####[facility] ([facility] [place] [address] Hemoglobin (Bld) [Mass/Vol] 10.4 g/dL Low 13.0-17.0 [facility] Comment on above: Performed By: #### L [id number] ####[facility] ([facility] [place] [address] MCH (RBC) [Entitic mass] 31.6 pg Normal 27.0-33.0 [facility] Comment on above: Performed By: #### L [id number] ####[facility] ([facility] [place] [address] MCV (RBC) [Entitic vol] 89.7 fL Normal 82.0-98.0 [facility] Comment on above: Performed By: #### L [id number] ####[facility] ([facility] [place] [address] PLATELETS (10*3/UL) IN BLOOD AUTOMATED COUNT 200 10*3/uL Normal 150-400 [facility] Comment on above: Performed By: #### L [id number] ####[facility] ([facility]ER)[address] [place] [address] RBC (Bld) [#/Vol] 3.29 10*6/uL Low 4.20-5.70 [facility] Comment on above: Performed By: #### L [id number] ####[facility] ([facility] [address] WBC (Bld) [#/Vol] 15.65 10*3/uL High 4.00-10.60 [facility] Comment on above: Performed By: #### L [id number] ####[facility] ([facility] [address] Erythrocyte distribution width (RBC) [Ratio] 15.8 % High 11.5-15.0 [facility] Comment on above: Performed By: #### L [id number] ####[facility] ([facility] [place] [address] ERYTHROCYTE MEAN CORPUSCULAR HEMOGLOBIN CONCENTRATION (G/DL) BY AUTOMATED 35.0 g/dL Normal 32.0-35.0 [facility] Comment on above: Performed By: #### L [id number] ####[facility] ([facility] [address] Hematocrit (Bld) [Volume fraction] 31.1 % Low 39.0-50.0 [facility] Comment on above: Performed By: #### L [id number] ####[facility] ([facility] [address] Hemoglobin (Bld) [Mass/Vol] 10.9 g/dL Low 13.0-17.0 [facility] Comment on above: Performed By: #### L [id number] ####[facility] ([facility] [place] [address] MCH (RBC) [Entitic mass] 31.5 pg Normal 27.0-33.0 [facility] Comment on above: Performed By: #### L [id number] ####[facility] ([facility]ER)[address] [address] MCV (RBC) [Entitic vol] 89.9 fL Normal 82.0-98.0 [facility] Comment on above: Performed By: #### L [id number] ####[facility] ([facility])[address] [address] PLATELETS (10*3/UL) IN BLOOD AUTOMATED COUNT 214 10*3/uL Normal 150-400 [facility] Comment on above: Performed By: #### L [id number] ####[facility] ([facility])[address] [address] RBC (Bld) [#/Vol] 3.46 10*6/uL Low 4.20-5.70 [facility] Comment on above: Performed By: #### L [id number] ####[facility] ([facility])[address] [address] WBC (Bld) [#/Vol] 14.82 10*3/uL High 4.00-10.60 [facility] Comment on above: Performed By: #### L [id number] ####[facility] ([facility])[address] [place] [address] Erythrocyte distribution width (RBC) [Ratio] 15.9 % High 11.5-15.0 [facility] Comment on above: Performed By: #### L [id number] ####[facility] ([facility])[address] [place] [address] ERYTHROCYTE MEAN CORPUSCULAR HEMOGLOBIN CONCENTRATION (G/DL) BY AUTOMATED 34.6 g/dL Normal 32.0-35.0 [facility] Comment on above: Performed By: #### L [id number] ####[facility] ([facility])[address] [place] [address] Hematocrit (Bld) [Volume fraction] 32.1 % Low 39.0-50.0 [facility] Comment on above: Performed By: #### L [id number] ####[facility] ([facility])[address] [place] [address] Hemoglobin (Bld) [Mass/Vol] 11.1 g/dL Low 13.0-17.0 [facility] Comment on above: Performed By: #### L [id number] ####[facility] [place] [address] MCH (RBC) [Entitic mass] 31.4 pg Normal 27.0-33.0 [facility] Comment on above: Performed By: #### L [id number] ####[facility] [place] [address] MCV (RBC) [Entitic vol] 90.9 fL Normal 82.0-98.0 [facility] Comment on above: Performed By: #### L [id number] ####[facility] ([facility] [place] [address] PLATELETS (10*3/UL) IN BLOOD AUTOMATED COUNT 213 10*3/uL Normal 150-400 [facility] Comment on above: Performed By: #### L [id number] ####[facility] ([facility] [place] [address] RBC (Bld) [#/Vol] 3.53 10*6/uL Low 4.20-5.70 [facility] Comment on above: Performed By: #### L [id number] ####[facility] ([facility] [place] [address] WBC (Bld) [#/Vol] 13.82 10*3/uL High 4.00-10.60 [facility] Comment on above: Performed By: #### L [id number] ####[facility] ([facility])[address] [place] [address] COMPREHENSIVE METABOLIC PANE Rogelio 02-23-2025 Albumin [Mass/Vol] 3.5 g/dL Normal 3.5-5.7 [facility] Comment on above: Performed By: #### L [id number] ####[facility] ([facility])[address] [place] [address] ALP [Catalytic activity/Vol] 61 U/L Normal 34-104 [facility] Comment on above: Performed By: #### L [id number] ####[facility] ([facility] [place] [address] ALT [Catalytic activity/Vol] 32 U/L Normal 7-52 [facility] Comment on above: Performed By: #### L [id number] ####[facility] ([facility] [place] [address] Anion gap [Moles/Vol] 16 mmol/L Normal 7-20 [facility] Comment on above: Performed By: #### L [id number] ####[facility] ([facility] [place] [address] AST [Catalytic activity/Vol] 25 U/L Normal 13-39 [facility] Comment on above: Performed By: #### L [id number] ####[facility] ([facility] [place] [address] Bilirubin [Mass/Vol] 3.4 mg/dL High 0.3-1.0 [facility] Comment on above: Performed By: #### L [id number] ####[facility] ([facility] [place] [address] Calcium [Mass/Vol] 8.9 mg/dL Normal 8.6-10.3 [facility] Comment on above: Performed By: #### L [id number] ####[facility] ([facility] [place] [address] Chloride [Moles/Vol] 101 mmol/L Normal 98-107 [facility] Comment on above: Performed By: #### L [id number] ####[facility] [place] [address] CO2 [Moles/Vol] 24 mmol/L Normal 21-31 [facility] Comment on above: Performed By: #### L [id number] ####[facility] ([facility] [place] [address] Creatinine [Mass/Vol] 2.27 mg/dL High 0.70-1.30 [facility] Comment on above: Performed By: #### L [id number] ####[facility] ([facility] [address] GLOMERULAR FILTRATION RATE ML/MIN/1.73 SQ M.PREDICTED 32.6 mL/min/1.73m*2 Low >60.0 [facility] Comment on above: Result Comment: [facility]???s estimated glomerular filtration rate (eGFR) will no longer include consideration of race in its calculation. The [employer]???s eGFR Task Force developed new recommendations for [...] disproportionately affect any one group of individuals. Performed By: #### L [id number] ####[facility] ([facility] [place] [address] Glucose [Mass/Vol] 118 mg/dL High 70-100 [facility] Comment on above: Performed By: #### L [id number] ####[facility] ([facility] [place] [address] Potassium [Moles/Vol] 4.5 mmol/L Normal 3.5-5.1 [facility] Comment on above: Performed By: #### L [id number] ####[facility] ([facility] [place] [address] Protein [Mass/Vol] 5.5 g/dL Low 6.0-8.3 [facility] Comment on above: Performed By: #### L [id number] ####[facility] ([facility] [place] [address] Sodium [Moles/Vol] 136 mmol/L Normal 136-145 [facility] Comment on above: Performed By: #### L [id number] ####[facility] ([facility] [place] [address] Urea nitrogen [Mass/Vol] 39 mg/dL High 7-25 [facility] Comment on above: Performed By: #### L [id number] ####[facility] ([facility] [place] [address] UREA NITROGEN/CREATININ E (MASS RATIO) IN SER/PLAS 17.2 Normal [facility] Comment on above: Performed By: #### L [id number] ####[facility] ([facility] [place] [address] Consultation/Specialist Note on 02-23-2025 Consultation/Speci alist Note [id number]#1. 00OTGTIFF [facility] LACTIC ACID WITH 4 HOUR REFL EXon 02-23-2025 LACTATE (MMOL/L) IN SER/PLAS 1.8 mmol/L Normal 0.5-2.2 [facility] Comment on above: Performed By: #### L [id number] ####[facility] ([facility] [place] [address] MAGNESIUMon 02-23-2025 Magnesium [Mass/Vol] 2.0 mg/dL Normal 1.9-2.7 [facility] Comment on above: Performed By: #### L [id number] ####[facility] ([facility] [facility] [place] [address] Outside Recordson 02-23-2025 Outside Records [id number]#1. 00OTGTIFF [facility] Outside Records [id number]#1. 00OTGTIFF [facility] PHOSPHORUSon 02-23-2025 Magnesium [Mass/Vol] 6.1 mg/dL High 2.5-5.0 [facility] Comment on above: Performed By: #### L [id number] ####[facility] ([facility] [place] [address] ANTI-XA (HEPARIN LEVEL)on HEPARIN UNFRACTIONATED (U/ML) IN PPP BY CHROMOGENIC METHOD 0.55 IU/mL Normal 0.3-0.7 [facility] Comment on above: Result Comment: [place] roxaban and Apixaban will interfere with the anti Xa assay used to monitor UFH and LMWH. Performed By: #### L [id number] ####[facility] ([facility] [place] [address] HEPARIN UNFRACTIONATED (U/ML) IN PPP BY CHROMOGENIC METHOD 0.71 IU/mL High 0.3-0.7 [facility] Comment on above: Result Comment: [place] roxaban and Apixaban will interfere with the anti Xa assay used to monitor UFH and LMWH. Performed By: #### L [id number] ####[facility] ([facility] [place] [address] BLOOD CULTUREon 02-22-2025 Bacteria identified Cx Nom (Bld) No growth at 5 days Normal [facility] Comment on above: Performed By: #### L [id number] ####[facility] ([facility] [place] [address] Order Comment: From a different site than #1. CBCon 02-22-2025 Erythrocyte distribution width (RBC) [Ratio] 15.9 % High 11.5-15.0 [facility] Comment on above: Performed By: #### L [id number] ####[facility] ([facility] [place] [address] ERYTHROCYTE MEAN CORPUSCULAR HEMOGLOBIN CONCENTRATION (G/DL) BY AUTOMATED 34.1 g/dL Normal 32.0-35.0 [facility] Comment on above: Performed By: #### L [id number] ####[facility] ([facility] [place] [address] Hematocrit (Bld) [Volume fraction] 33.4 % Low 39.0-50.0 [facility] Comment on above: Performed By: #### L [id number] ####[facility] ([facility])[address] [place] [address] Hemoglobin (Bld) [Mass/Vol] 11.4 g/dL Low 13.0-17.0 [facility] Comment on above: Performed By: #### L [id number] ####[facility] ([facility])[address] [place] [address] MCH (RBC) [Entitic mass] 31.1 pg Normal 27.0-33.0 [facility] Comment on above: Performed By: #### L [id number] ####[facility] ([facility])[address] [place] [address] MCV (RBC) [Entitic vol] 91.3 fL Normal 82.0-98.0 [facility] Comment on above: Performed By: #### L [id number] ####[facility] [place] [address] PLATELETS (10*3/UL) IN BLOOD AUTOMATED COUNT 215 10*3/uL Normal 150-400 [facility] Comment on above: Performed By: #### L [id number] ####[facility] ([facility] [place] [address] RBC (Bld) [#/Vol] 3.66 10*6/uL Low 4.20-5.70 [facility] Comment on above: Performed By: #### L [id number] ####[facility] ([facility])[address] [place] [address] WBC (Bld) [#/Vol] 10.74 10*3/uL High 4.00-10.60 [facility] Comment on above: Performed By: #### L [id number] ####[facility] ([facility])[address] [place] [address] Erythrocyte distribution width (RBC) [Ratio] 15.8 % High 11.5-15.0 [facility] Comment on above: Performed By: #### L [id number] ####[facility] ([facility])[address] [place] [address] ERYTHROCYTE MEAN CORPUSCULAR HEMOGLOBIN CONCENTRATION (G/DL) BY AUTOMATED 33.7 g/dL Normal 32.0-35.0 [facility] Comment on above: Performed By: #### L [id number] ####[facility] ([facility])[address] [place] [address] Hematocrit (Bld) [Volume fraction] 40.1 % Normal 39.0-50.0 [facility] Comment on above: Performed By: #### L [id number] ####[facility] ([facility])[address] [place] [address] Hemoglobin (Bld) [Mass/Vol] 13.5 g/dL Normal 13.0-17.0 [facility] Comment on above: Performed By: #### L [id number] ####[facility] ([facility])[address] [place] [address] MCH (RBC) [Entitic mass] 30.9 pg Normal 27.0-33.0 [facility] Comment on above: Performed By: #### L [id number] ####[facility] ([facility])[address] [place] [address] MCV (RBC) [Entitic vol] 91.8 fL Normal 82.0-98.0 [facility] Comment on above: Performed By: #### L [id number] ####[facility] ([facility])[address] [place] [address] PLATELETS (10*3/UL) IN BLOOD AUTOMATED COUNT 257 10*3/uL Normal 150-400 [facility] Comment on above: Performed By: #### L [id number] ####[facility] ([facility])[address] [place] [address] RBC (Bld) [#/Vol] 4.37 10*6/uL Normal 4.20-5.70 [facility] Comment on above: Performed By: #### L [id number] ####[facility] ([facility])[address] [place] [address] WBC (Bld) [#/Vol] 11.61 10*3/uL High 4.00-10.60 [facility] Comment on above: Performed By: #### L [id number] ####[facility] ([facility])[address] [place] [address] ERYTHROCYTE MEAN CORPUSCULAR HEMOGLOBIN CONCENTRATION (G/DL) BY AUTOMATED 34.2 g/dL Normal 32.0-35.0 [facility] Comment on above: Performed By: #### L [id number] ####[facility] ([facility])[address] [place] [address] Hematocrit (Bld) [Volume fraction] 45.0 % Normal 39.0-50.0 [facility] Comment on above: Performed By: #### L [id number] ####[facility] ([facility])[address] [place] [address] Hemoglobin (Bld) [Mass/Vol] 15.4 g/dL Normal 13.0-17.0 [facility] Comment on above: Performed By: #### L [id number] ####[facility] ([facility])[address] [place] [address] MCH (RBC) [Entitic mass] 31.3 pg Normal 27.0-33.0 [facility] Comment on above: Performed By: #### L [id number] ####[facility] ([facility])[address] [place] [address] MCV (RBC) [Entitic vol] 91.5 fL Normal 82.0-98.0 [facility] Comment on above: Performed By: #### L [id number] ####[facility] ([facility])[address] [place] [address] PLATELETS (10*3/UL) IN BLOOD AUTOMATED COUNT 242 10*3/uL Normal 150-400 [facility] Comment on above: Performed By: #### L [id number] ####[facility] ([facility])[address] [place] [address] RBC (Bld) [#/Vol] 4.92 10*6/uL Normal 4.20-5.70 [facility] Comment on above: Performed By: #### L [id number] ####[facility] ([facility])[address] [place] [address] WBC (Bld) [#/Vol] 12.27 10*3/uL High 4.00-10.60 [facility] Comment on above: Performed By: #### L [id number] ####[facility] ([facility])[address] [place] [address] CBC WITH AUTO DIFFERENTIALon 02-22-2025 Basophils (Bld) [#/Vol] 0.02 10*3/uL Normal 0.00-0.20 [facility] Comment on above: Performed By: #### L [id number] ####[facility] ([facility])[address] [place], [place] [address] Basophils/100 WBC (Bld) 0.2 % Normal 0.0-1.0 [facility] Comment on above: Performed By: #### L [id number] ####[facility] ([facility])[address] [place], [place] [address] Eosinophils (Bld) [#/Vol] 0.00 10*3/uL Normal 0.00-0.50 [facility] Comment on above: Performed By: #### L [id number] ####[facility] ([facility])[address] [place], [place] [address] Eosinophils/100 WBC (Bld) 0.0 % Normal 0.0-6.0 [facility] Comment on above: Performed By: #### L [id number] ####[facility] ([facility])[address] [place] [address] Erythrocyte distribution width (RBC) [Ratio] 15.9 % High 11.5-15.0 [facility] Comment on above: Performed By: #### L [id number] ####[facility] ([facility])[address] [place] [address] Performed By: #### L [id number] ####[facility] ([facility])[address] [place] [address] ERYTHROCYTE MEAN CORPUSCULAR HEMOGLOBIN CONCENTRATION (G/DL) BY AUTOMATED 32.9 g/dL Normal 32.0-35.0 [facility] Comment on above: Performed By: #### L [id number] ####[facility] ([facility])[address] [place] [address] Hematocrit (Bld) [Volume fraction] 42.5 % Normal 39.0-50.0 [facility] Comment on above: Performed By: #### L [id number] ####[facility] ([facility])[address] [place] [address] Hemoglobin (Bld) [Mass/Vol] 14.0 g/dL Normal 13.0-17.0 [facility] Comment on above: Performed By: #### L [id number] ####[facility] ([facility])[address] [place] [address] Immature granulocytes (Bld) [#/Vol] 0.05 10*3/uL Normal 0.00-0.20 [facility] Comment on above: Performed By: #### L [id number] ####[facility] ([facility])[address] [place] [address] Immature granulocytes/100 WBC (Bld) 0.5 % Normal 0.0-1.0 [facility] Comment on above: Performed By: #### L [id number] ####[facility] ([facility])[address] [place] [address] Lymphocytes (Bld) [#/Vol] 1.14 10*3/uL Low 1.20-4.00 [facility] Comment on above: Performed By: #### L [id number] ####[facility] ([facility])[address] [place] [address] Lymphocytes/100 WBC (Bld) 10.6 % Low 20.0-45.0 [facility] Comment on above: Performed By: #### L [id number] ####[facility] ([facility])[address] [place] [address] MCH (RBC) [Entitic mass] 30.8 pg Normal 27.0-33.0 [facility] Comment on above: Performed By: #### L [id number] ####[facility] ([facility])[address] [place] [address] MCV (RBC) [Entitic vol] 93.4 fL Normal 82.0-98.0 [facility] Comment on above: Performed By: #### L [id number] ####[facility] ([facility] [place] [address] Monocytes (Bld) [#/Vol] 0.73 10*3/uL Normal 0.10-1.00 [facility] Comment on above: Performed By: #### L [id number] ####[facility] ([facility] [place] [address] Monocytes/100 WBC (Bld) 6.8 % Normal 5.0-12.0 [facility] Comment on above: Performed By: #### L [id number] ####[facility] ([facility] [place] [address] Neutrophils (Bld) [#/Vol] 8.79 10*3/uL High 1.60-7.60 [facility] Comment on above: Performed By: #### L [id number] ####[facility] ([facility])[address] [place] [address] Neutrophils/100 WBC (Bld) 81.9 % High 40.0-72.0 [facility] Comment on above: Performed By: #### L [id number] ####[facility] ([facility])[address] [place] [address] NRBC (PER 100 WBCS) BY AUTOMATED COUNT 0.0 % Normal 0 [facility] Comment on above: Performed By: #### L [id number] ####[facility] ([facility])[address] [place] [address] PLATELETS (10*3/UL) IN BLOOD AUTOMATED COUNT 224 10*3/uL Normal 150-400 [facility] Comment on above: Performed By: #### L [id number] ####[facility] ([facility] [place] [address] RBC (Bld) [#/Vol] 4.55 10*6/uL Normal 4.20-5.70 [facility] Comment on above: Performed By: #### L [id number] ####[facility] ([facility] [place] [address] WBC (Bld) [#/Vol] 10.73 10*3/uL High 4.00-10.60 [facility] Comment on above: Performed By: #### L [id number] ####[facility] ([facility] [place] [address] COMPREHENSIVE METABOLIC PANE Rogelio 02-22-2025 Albumin [Mass/Vol] 4.0 g/dL Normal 3.5-5.7 [facility] Comment on above: Performed By: #### L [id number] ####[facility] ([facility] [place] [address] Performed By: #### L [id number] ####[facility] ([facility] [place] [address] ALP [Catalytic activity/Vol] 70 U/L Normal 34-104 [facility] Comment on above: Performed By: #### L [id number] ####[facility] ([facility] [place] [address] ALT [Catalytic activity/Vol] 28 U/L Normal 7-52 [facility] Comment on above: Performed By: #### L [id number] ####[facility] ([facility] [place] [address] Anion gap [Moles/Vol] 16 mmol/L Normal 7-20 [facility] Comment on above: Performed By: #### L [id number] ####[facility] ([facility] [place] [address] AST [Catalytic activity/Vol] 22 U/L Normal 13-39 [facility] Comment on above: Performed By: #### L [id number] ####[facility] ([facility])[address] [place] [address] Performed By: #### L [id number] ####[facility] ([facility])[address] [place] [address] Bilirubin [Mass/Vol] 5.1 mg/dL High 0.3-1.0 [facility] Comment on above: Performed By: #### L [id number] ####[facility] ([facility] [place] [address] Calcium [Mass/Vol] 9.4 mg/dL Normal 8.6-10.3 [facility] Comment on above: Performed By: #### L [id number] ####[facility] ([facility])[address] [place] [address] Chloride [Moles/Vol] 104 mmol/L Normal 98-107 [facility] Comment on above: Performed By: #### L [id number] ####[facility] ([facility])[address] [place] [address] CO2 [Moles/Vol] 24 mmol/L Normal 21-31 [facility] Comment on above: Performed By: #### L [id number] ####[facility] ([facility])[address] [place] [address] Creatinine [Mass/Vol] 1.43 mg/dL High 0.70-1.30 [facility] Comment on above: Performed By: #### L [id number] ####[facility] ([facility])[address] [place] [address] GLOMERULAR FILTRATION RATE ML/MIN/1.73 SQ M.PREDICTED 56.8 mL/min/1.73m*2 Low >60.0 [facility] Comment on above: Result Comment: [facility]???s estimated glomerular filtration rate (eGFR) will no longer include consideration of race in its calculation. The National Kid[employer] Foundation???s eGFR Task Force developed new recommendations for [...] disproportionately affect any one group of individuals. Performed By: #### L [id number] ####[facility] ([facility] [place] [address] Glucose [Mass/Vol] 134 mg/dL High 70-100 [facility] Comment on above: Performed By: #### L [id number] ####[facility] ([facility] [place] [address] Potassium [Moles/Vol] 4.5 mmol/L Normal 3.5-5.1 [facility] Comment on above: Performed By: #### L [id number] ####[facility] ([facility] [place] [address] Protein [Mass/Vol] 6.2 g/dL Normal 6.0-8.3 [facility] Comment on above: Performed By: #### L [id number] ####[facility] ([facility] [place] [address] Sodium [Moles/Vol] 139 mmol/L Normal 136-145 [facility] Comment on above: Performed By: #### L [id number] ####[facility] ([facility] [place] [address] Urea nitrogen [Mass/Vol] 27 mg/dL High 7-25 [facility] Comment on above: Performed By: #### L [id number] ####[facility] ([facility] [place] [address] UREA NITROGEN/CREATININ E (MASS RATIO) IN SER/PLAS 18.[address] [facility] Comment on above: Performed By: #### L [id number] ####[facility] ([facility] [place] [address] CONSULTon 02-22-2025 CONSULT Normal [facility] CONSULT Normal [facility] CT ABDOMEN PELVIS W IV CONTR Obi 02-22-2025 CT ABDOMEN PELVIS W IV CONTRAST Invalid Interpretation Code [facility] CT CHEST W IV CONTRASTon CT CHEST W IV CONTRAST Invalid Interpretation Code [facility] HEMOGLOBIN AND HEMATOCRIT, B LOODon 02-22-2025 Hematocrit (Bld) [Volume fraction] 42.9 % Normal 39.0-50.0 [facility] Comment on above: Performed By: #### L [id number] ####[facility] ([facility] [place] [address] Hemoglobin (Bld) [Mass/Vol] 14.5 g/dL Normal 13.0-17.0 [facility] Comment on above: Performed By: #### L [id number] ####[facility] ([facility] [place] [address] HEPATIC FUNCTION PANELon ALP [Catalytic activity/Vol] 72 U/L Normal 34-104 [facility] Comment on above: Performed By: #### L [id number] ####[facility] ([facility])[address] [place] [address] ALT [Catalytic activity/Vol] 30 U/L Normal 7-52 [facility] Comment on above: Performed By: #### L [id number] ####[facility] ([facility])[address] [place] [address] Bilirubin [Mass/Vol] 4.8 mg/dL High 0.3-1.0 [facility] Comment on above: Performed By: #### L [id number] ####[facility] ([facility])[address] [place] [address] Magnesium [Mass/Vol] 1.1 mg/dL High 0-0.2 [facility] Comment on above: Performed By: #### L [id number] ####[facility] ([facility])[address] [place] [address] Protein [Mass/Vol] 6.1 g/dL Normal 6.0-8.3 [facility] Comment on above: Performed By: #### L [id number] ####[facility] [place] [address] HIGH SENSITIVITY TROPONIN Io n 02-22-2025 HS TROPONIN I (NG/L) 27 ng/L High <20 [facility] Comment on above: Performed By: #### L [id number] ####[facility] ([facility] [place] [address] HS TROPONIN I (NG/L) 31 ng/L High <20 [facility] Comment on above: Performed By: #### L [id number] ####[facility] ([facility] [address] HPon 02-22-2025 HP Normal [facility] LACTIC ACID WITH 4 HOUR REFL EXon 02-22-2025 LACTATE (MMOL/L) IN SER/PLAS 1.6 mmol/L Normal 0.5-2.2 [facility] Comment on above: Performed By: #### L [id number] ####[facility] ([facility] [place] [address] LACTATE (MMOL/L) IN SER/PLAS 2.2 mmol/L Normal 0.5-2.2 [facility] Comment on above: Performed By: #### L [id number] ####[facility] ([facility] [place] [address] MAGNESIUMon 02-22-2025 Magnesium [Mass/Vol] 1.8 mg/dL Low 1.9-2.7 [facility] Comment on above: Performed By: #### L [id number] ####[facility] ([facility] [place] [address] Magnesium [Mass/Vol] 2.0 mg/dL Normal 1.9-2.7 [facility] Comment on above: Performed By: #### L [id number] ####[facility] ([facility] [place] [address] NURSNOTEon 02-22-2025 NURSNOTE Copy Reader called rapid at 0607 am pt was hypotensive BP 53/38 [facility] nurse at bedside 0609 am. notified came to bedside, orders were placed. 0700 BP 91/63. Day shift [facility] nurse at bedside. Normal [facility] POCT GLUCOSE METER UNSOLICIT ED RESULTSon 02-22-2025 Glucose [Mass/Vol] 125 mg/dL High 70-105 [facility] Comment on above: Order Comment: Waive d Testing in the ED is performed under the ED CLIA certificate #[id number]. Result Comment: [email or web address] Performed By: #### L [id number] ####[facility] ([facility])[address] [place] [address] Glucose [Mass/Vol] 129 mg/dL High 70-105 [facility] Comment on above: Order Comment: Waive d Testing in the ED is performed under the ED CLIA certificate #[id number]. Result Comment: bib [email or web address] Performed By: #### L [id number] ####[facility] ([facility])[address] [place] [address] PROTIME-INRon 02-22-2025 INR IN PPP BY COAGULATION ASSAY 1.47 High 0.90-1.10 [facility] Comment on above: Result Comment: ACCC P RECOMMENDED INR FOR WARFARIN THERAPY CONDITION INRPROPHYLAXIS OF VENOUS THROMBOSIS 2-3(HIGH-RISK SURGERY)TREATMENT OF VENOUS THROMBOSIS 2-3TREATMENT OF PULMONARY EMBOLISM 2-3PREVENTION OF SYSTEMIC EMBOLISM: 2-3 ACUTE MYOCARDIAL INFARCTION TISSUE HEART VALVES VALVULAR HEART DISEASE ATRIAL FIBRILLATION RECURRENT SYSTEMIC EMBOLISMMECHANICAL HEART VALVE 2.5-3.5 FROM: ORAL ANTICOAGULANTS. MECHANISM OF ACTION, CLINICAL EFFECTIVENESS, AND OPTIMAL THERAPEUTIC RANGE. CHEST 1995;108:[id number]. Performed By: #### L [id number] ####[facility] ([facility])[address] [place] [address] PROTHROMBIN TIME (PT) IN PPP BY COAGULATION ASSAY 17.9 Seconds High 12.3-14.8 [facility] Comment on above: Performed By: #### L [id number] ####[facility] ([facility] [facility] [address] TYPE AND SCREENon 02-22-2025 AB SCREEN Negative Normal [facility] Comment on above: Performed By: #### L [id number] ####[facility], ABO group Nom (Bld) O Normal [facility] Comment on above: Performed By: #### L [id number] ####[facility], RH TYPE IN BLOOD Positive Normal [facility] Comment on above: Performed By: #### L [id number] ####[facility], URINALYSIS MICROSCOPIC WITH REFLEX CULTUREon 02-22-2025 RBC (#/HPF) IN URINE SEDIMENT >20 Abnormal None Seen, 0-2 [facility] Comment on above: Performed By: #### L [id number] ####[facility] ([facility])[address] [facility] [address] SQUAMOUS EPITHELIAL CELLS (#/LPF) IN URINE SEDIMENT None Seen Normal None Seen, Occasional, Few [facility] Comment on above: Performed By: #### L [id number] ####[facility] ([facility])[address] [address] WBC (LEUKOCYTE) (#/HPF) IN URINE SEDIMENT None Seen Normal None Seen, 0-2 [facility] Comment on above: Performed By: #### L [id number] ####[facility] ([facility])[address] [address] URINALYSIS WITH REFLEX CULTU REon 02-22-2025 BILIRUBIN, TOTAL PRESENCE IN URINE Negative Normal Negative [facility] Comment on above: Performed By: #### L [id number] ####[facility] ([facility] [place] [address] Clarity (U) Turbid Abnormal Clear [facility] Comment on above: Performed By: #### L [id number] ####[facility] ([facility], [place] [address] Color (U) Red Abnormal Colorless, Yellow, Light-Yellow [facility] Comment on above: Performed By: #### L [id number] ####[facility] ([facility] [place] [address] GLUCOSE (MG/DL) IN URINE Normal Normal Normal [facility] Comment on above: Performed By: #### L [id number] ####[facility] ([facility] [place] [address] HEMOGLOBIN PRESENCE IN URINE Large Abnormal Negative [facility] Comment on above: Performed By: #### L [id number] ####[facility] ([facility] [place] [address] Ketones Ql (U) Negative Normal Negative [facility] Comment on above: Performed By: #### L [id number] ####[facility] ([facility] [place] [address] LEUKOCYTE ESTERASE PRESENCE IN URINE BY TEST STRIP Trace Abnormal Negative [facility] Comment on above: Performed By: #### L [id number] ####[facility] ([facility] [place] [address] NITRITE PRESENCE IN URINE Negative Normal Negative [facility] Comment on above: Performed By: #### L [id number] ####[facility] ([facility]ER)[address] [place] [address] pH (U) 5.5 [pH] Normal 5.0-8.0 [facility] Comment on above: Performed By: #### L [id number] ####[facility] ([facility])[address] [place] [address] Protein (U) [Mass/Vol] 30 mg/dL Abnormal Negative [facility] Comment on above: Performed By: #### L [id number] ####[facility] ([facility] [place] [address] Specific gravity (U) [Rel density] >1.050 High 1.010-1.030 [facility] Comment on above: Performed By: #### L [id number] ####[facility] ([facility] [place] [address] UROBILINOGEN (MG/DL) IN URINE Normal Normal Normal [facility] Comment on above: Performed By: #### L [id number] ####[facility] ([facility] [place] [address] 30on 02-21-2025 30 Normal [facility] ANTI-XA (HEPARIN LEVEL)on HEPARIN UNFRACTIONATED (U/ML) IN PPP BY CHROMOGENIC METHOD 0.57 IU/mL Normal 0.3-0.7 [facility] Comment on above: Result Comment: [place] roxaban and Apixaban will interfere with the anti Xa assay used to monitor UFH and LMWH. Performed By: #### L [id number] ####[facility] ([facility] [place] [address] APTTon 02-21-2025 ACTIVATED PARTIAL THROMBOPLASTIN TIME IN PPP BY COAGULATION ASSAY 117.9 Seconds High 25.0-35.0 [facility] Comment on above: Result Comment: Clin ical significance of the APTT is questionable in the presence of heparin. Performed By: #### L [id number] ####[facility] ([facility] [place] [address] BASIC METABOLIC PANELon 01-30 Anion gap [Moles/Vol] 13 mmol/L Normal 7-20 [facility] Comment on above: Performed By: #### L [id number] ####[facility] ([facility] [place] [address] Calcium [Mass/Vol] 8.9 mg/dL Normal 8.6-10.3 [facility] Comment on above: Performed By: #### L [id number] ####[facility] ([facility] [place] [address] Chloride [Moles/Vol] 104 mmol/L Normal 98-107 [facility] Comment on above: Performed By: #### L [id number] ####[facility] ([facility] [place] [address] CO2 [Moles/Vol] 26 mmol/L Normal 21-31 [facility] Comment on above: Performed By: #### L [id number] ####[facility] ([facility] [place] [address] Creatinine [Mass/Vol] 0.99 mg/dL Normal 0.70-1.30 [facility] Comment on above: Performed By: #### L [id number] ####[facility] ([facility] [place] [address] GLOMERULAR FILTRATION RATE ML/MIN/1.73 SQ M.PREDICTED 88.3 mL/min/1.73m*2 Normal >60.0 [facility] Comment on above: Result Comment: [facility]???s estimated glomerular filtration rate (eGFR) will no longer include consideration of race in its calculation. The National Kidney Foundation???s eGFR Task Force developed new recommendations for [...] disproportionately affect any one group of individuals. Performed By: #### L [id number] ####[facility] ([facility] [place] [address] Glucose [Mass/Vol] 86 mg/dL Normal 70-100 [facility] Comment on above: Performed By: #### L [id number] ####[facility] ([facility] [place] [address] Potassium [Moles/Vol] 4.0 mmol/L Normal 3.5-5.1 [facility] Comment on above: Performed By: #### L [id number] ####[facility] [place] [address] Sodium [Moles/Vol] 139 mmol/L Normal 136-145 [facility] Comment on above: Performed By: #### L [id number] ####[facility] [place] [address] Urea nitrogen [Mass/Vol] 16 mg/dL Normal 7-25 [facility] Comment on above: Performed By: #### L [id number] ####[facility] ([facility] [place] [address] UREA NITROGEN/CREATININ E (MASS RATIO) IN SER/PLAS 16.2 Normal [facility] Comment on above: Performed By: #### L [id number] ####[facility] ([facility] [place] [address] CBCon 02-21-2025 Erythrocyte distribution width (RBC) [Ratio] 15.2 % High 11.5-15.0 [facility] Comment on above: Performed By: #### L [id number] ####[facility] [place] [address] ERYTHROCYTE MEAN CORPUSCULAR HEMOGLOBIN CONCENTRATION (G/DL) BY AUTOMATED 34.7 g/dL Normal 32.0-35.0 [facility] Comment on above: Performed By: #### L [id number] ####[facility] [place] [address] Hematocrit (Bld) [Volume fraction] 44.4 % Normal 39.0-50.0 [facility] Comment on above: Performed By: #### L [id number] ####[facility] ([facility] [place] [address] Hemoglobin (Bld) [Mass/Vol] 15.4 g/dL Normal 13.0-17.0 [facility] Comment on above: Performed By: #### L [id number] ####[facility] [place] [address] MCH (RBC) [Entitic mass] 31.0 pg Normal 27.0-33.0 [facility] Comment on above: Performed By: #### L [id number] ####[facility] ([facility] [place] [address] MCV (RBC) [Entitic vol] 89.3 fL Normal 82.0-98.0 [facility] Comment on above: Performed By: #### L [id number] ####[facility] ([facility] [place] [address] PLATELETS (10*3/UL) IN BLOOD AUTOMATED COUNT 177 10*3/uL Normal 150-400 [facility] Comment on above: Performed By: #### L [id number] ####[facility] ([facility] [place] [address] RBC (Bld) [#/Vol] 4.97 10*6/uL Normal 4.20-5.70 [facility] Comment on above: Performed By: #### L [id number] ####[facility] ([facility] [place] [address] WBC (Bld) [#/Vol] 7.24 10*3/uL Normal 4.00-10.60 [facility] Comment on above: Performed By: #### L [id number] ####[facility] ([facility] [place] [address] CT ABDOMEN PELVIS WO IV CONT RASTon 02-21-2025 CT ABDOMEN PELVIS WO IV CONTRAST Invalid Interpretation Code [facility] 30on 02-20-2025 30 Normal [facility] 30 Normal [facility] 30 Normal [facility] ANTI-XA (HEPARIN LEVEL)on HEPARIN UNFRACTIONATED (U/ML) IN PPP BY CHROMOGENIC METHOD 0.55 IU/mL Normal 0.3-0.7 [facility] Comment on above: Result Comment: [place] roxaban and Apixaban will interfere with the anti Xa assay used to monitor UFH and LMWH. Performed By: #### L [id number] ####[facility] ([facility] [place] [address] HEPARIN UNFRACTIONATED (U/ML) IN PPP BY CHROMOGENIC METHOD 0.61 IU/mL Normal 0.3-0.7 [facility] Comment on above: Result Comment: [place] roxaban and Apixaban will interfere with the anti Xa assay used to monitor UFH and LMWH. Performed By: #### L [id number] ####[facility] ([facility] [place] [address] HEPARIN UNFRACTIONATED (U/ML) IN PPP BY CHROMOGENIC METHOD 0.84 IU/mL High 0.3-0.7 [facility] Comment on above: Order Comment: Other specimen was sitting in tube station, unknown for how long specimen was stationed Result Comment: [place] roxaban and Apixaban will interfere with the anti Xa assay used to monitor UFH and LMWH. Performed By: #### L [id number] ####[facility] ([facility] [place] [address] APTTon 02-20-2025 ACTIVATED PARTIAL THROMBOPLASTIN TIME IN PPP BY COAGULATION ASSAY 169.6 Seconds Critically high 25.0-35.0 [facility] Comment on above: Result Comment: Clin ical significance of the APTT is questionable in the presence of heparin. Performed By: #### L [id number] ####[facility] ([facility] [place] [address] BASIC METABOLIC PANELon 01-30 Anion gap [Moles/Vol] 14 mmol/L Normal 7-20 [facility] Comment on above: Performed By: #### L [id number] ####[facility] ([facility] [place] [address] Calcium [Mass/Vol] 8.7 mg/dL Normal 8.6-10.3 [facility] Comment on above: Performed By: #### L [id number] ####[facility] ([facility])[address] [place] [address] Chloride [Moles/Vol] 105 mmol/L Normal 98-107 [facility] Comment on above: Performed By: #### L [id number] ####[facility] ([facility])[address] [place] [address] CO2 [Moles/Vol] 25 mmol/L Normal 21-31 [facility] Comment on above: Performed By: #### L [id number] ####[facility] ([facility] [place] [address] Creatinine [Mass/Vol] 0.99 mg/dL Normal 0.70-1.30 [facility] Comment on above: Performed By: #### L [id number] ####[facility] ([facility] [place] [address] GLOMERULAR FILTRATION RATE ML/MIN/1.73 SQ M.PREDICTED 88.3 mL/min/1.73m*2 Normal >60.0 [facility] Comment on above: Result Comment: [facility]???s estimated glomerular filtration rate (eGFR) will no longer include consideration of race in its calculation. The National Kidney Foundation???s eGFR Task Force developed new recommendations for [...] disproportionately affect any one group of individuals. Performed By: #### L [id number] ####[facility] ([facility])[address] [place] [address] Glucose [Mass/Vol] 59 mg/dL Low 70-100 [facility] Comment on above: Performed By: #### L [id number] ####[facility] ([facility])[address] [place] [address] Potassium [Moles/Vol] 3.8 mmol/L Normal 3.5-5.1 [facility] Comment on above: Performed By: #### L [id number] ####[facility] ([facility] [place] [address] Sodium [Moles/Vol] 140 mmol/L Normal 136-145 [facility] Comment on above: Performed By: #### L [id number] ####[facility] ([facility] [place] [address] Urea nitrogen [Mass/Vol] 16 mg/dL Normal 7-25 [facility] Comment on above: Performed By: #### L [id number] ####[facility] ([facility] [place] [address] UREA NITROGEN/CREATININ E (MASS RATIO) IN SER/PLAS 16.[address] [facility] Comment on above: Performed By: #### L [id number] ####[facility] ([facility] [place] [address] HEMOGLOBIN AND HEMATOCRIT, B LOODon 02-20-2025 Hematocrit (Bld) [Volume fraction] 42.9 % Normal 39.0-50.0 [facility] Comment on above: Performed By: #### L [id number] ####[facility] ([facility] [place] [address] Hemoglobin (Bld) [Mass/Vol] 14.8 g/dL Normal 13.0-17.0 [facility] Comment on above: Performed By: #### L [id number] ####[facility] ([facility] [place] [address] 30on 02-19-2025 30 Normal [facility] ANTI-XA (HEPARIN LEVEL)on HEPARIN UNFRACTIONATED (U/ML) IN PPP BY CHROMOGENIC METHOD 0.54 IU/mL Normal 0.3-0.7 [facility] Comment on above: Result Comment: [place] roxaban and Apixaban will interfere with the anti Xa assay used to monitor UFH and LMWH. Performed By: #### L [id number] ####[facility] ([facility] [place] [address] HEPARIN UNFRACTIONATED (U/ML) IN PPP BY CHROMOGENIC METHOD 0.41 IU/mL Normal 0.3-0.7 [facility] Comment on above: Order Comment: Ok to draw AM labs at this timeCheck anti-Xa level every 6 hours while on heparin infusion, or per protocol. Result Comment: [place] roxaban and Apixaban will interfere with the anti Xa assay used to monitor UFH and LMWH. Performed By: #### L [id number] ####[facility] ([facility] [place] [address] APTTon 02-19-2025 ACTIVATED PARTIAL THROMBOPLASTIN TIME IN PPP BY COAGULATION ASSAY 154.5 Seconds Critically high 25.0-35.0 [facility] Comment on above: Result Comment: Clin ical significance of the APTT is questionable in the presence of heparin. Performed By: #### L [id number] ####[facility] ([facility] [place] [address] ACTIVATED PARTIAL THROMBOPLASTIN TIME IN PPP BY COAGULATION ASSAY 84.7 Seconds High 25.0-35.0 [facility] Comment on above: Order Comment: Check aPTT every 6 hours while on heparin infusion, or per protocol. Result Comment: Clin ical significance of the APTT is questionable in the presence of heparin. Performed By: #### L [id number] ####[facility] ([facility] [place] [address] BASIC METABOLIC PANELon 01-30 Anion gap [Moles/Vol] 12 mmol/L Normal 7-20 [facility] Comment on above: Performed By: #### L [id number] ####[facility] ([facility] [place] [address] Calcium [Mass/Vol] 8.3 mg/dL Low 8.6-10.3 [facility] Comment on above: Performed By: #### L [id number] ####[facility] ([facility] [place] [address] Chloride [Moles/Vol] 108 mmol/L High 98-107 [facility] Comment on above: Performed By: #### L [id number] ####[facility] ([facility] [place] [address] CO2 [Moles/Vol] 25 mmol/L Normal 21-31 [facility] Comment on above: Performed By: #### L [id number] ####[facility] ([facility] [place] [address] Creatinine [Mass/Vol] 1.07 mg/dL Normal 0.70-1.30 [facility] Comment on above: Performed By: #### L [id number] ####[facility] ([facility] [place] [address] GLOMERULAR FILTRATION RATE ML/MIN/1.73 SQ M.PREDICTED 80.4 mL/min/1.73m*2 Normal >60.0 [facility] Comment on above: Result Comment: [facility]???s estimated glomerular filtration rate (eGFR) will no longer include consideration of race in its calculation. The National Kidney Foundation???s eGFR Task Force developed new recommendations for [...] disproportionately affect any one group of individuals. Performed By: #### L [id number] ####[facility] ([facility] [place] [address] Glucose [Mass/Vol] 75 mg/dL Normal 70-100 [facility] Comment on above: Performed By: #### L [id number] ####[facility] ([facility] [place] [address] Potassium [Moles/Vol] 3.8 mmol/L Normal 3.5-5.1 [facility] Comment on above: Performed By: #### L [id number] ####[facility] ([facility] [place] [address] Sodium [Moles/Vol] 141 mmol/L Normal 136-145 [facility] Comment on above: Performed By: #### L [id number] ####[facility] ([facility] [place] [address] Urea nitrogen [Mass/Vol] 19 mg/dL Normal 7-25 [facility] Comment on above: Performed By: #### L [id number] ####[facility] ([facility] [place] [address] UREA NITROGEN/CREATININ E (MASS RATIO) IN SER/PLAS 17.8 Normal [facility] Comment on above: Performed By: #### L [id number] ####[facility] ([facility] [place] [address] CBCon 02-19-2025 Erythrocyte distribution width (RBC) [Ratio] 15.0 % Normal 11.5-15.0 [facility] Comment on above: Performed By: #### L [id number] ####[facility] ([facility] [place] [address] ERYTHROCYTE MEAN CORPUSCULAR HEMOGLOBIN CONCENTRATION (G/DL) BY AUTOMATED 34.0 g/dL Normal 32.0-35.0 [facility] Comment on above: Performed By: #### L [id number] ####[facility] ([facility] [place] [address] Hematocrit (Bld) [Volume fraction] 40.9 % Normal 39.0-50.0 [facility] Comment on above: Performed By: #### L [id number] ####[facility] ([facility] [place] [address] Hemoglobin (Bld) [Mass/Vol] 13.9 g/dL Normal 13.0-17.0 [facility] Comment on above: Performed By: #### L [id number] ####[facility] ([facility])[address] [place] [address] MCH (RBC) [Entitic mass] 31.2 pg Normal 27.0-33.0 [facility] Comment on above: Performed By: #### L [id number] ####[facility] ([facility] [place] [address] MCV (RBC) [Entitic vol] 91.9 fL Normal 82.0-98.0 [facility] Comment on above: Performed By: #### L [id number] ####[facility] ([facility] [place] [address] PLATELETS (10*3/UL) IN BLOOD AUTOMATED COUNT 165 10*3/uL Normal 150-400 [facility] Comment on above: Performed By: #### L [id number] ####[facility] ([facility] [place] [address] RBC (Bld) [#/Vol] 4.45 10*6/uL Normal 4.20-5.70 [facility] Comment on above: Performed By: #### L [id number] ####[facility] ([facility] [place] [address] WBC (Bld) [#/Vol] 5.92 10*3/uL Normal 4.00-10.60 [facility] Comment on above: Performed By: #### L [id number] ####[facility] ([facility] [place] [address] CONSULTon 02-19-2025 CONSULT Normal [facility] CONSULT Normal [facility] HIGH SENSITIVITY TROPONIN Io n 02-19-2025 HS TROPONIN I (NG/L) 30 ng/L High <20 [facility] Comment on above: Performed By: #### L [id number] ####[facility] ([facility])[address] [place] [address] HS TROPONIN I (NG/L) 29 ng/L High <20 [facility] Comment on above: Performed By: #### L [id number] ####[facility] [place] [address] HS TROPONIN I (NG/L) 30 ng/L High <20 [facility] Comment on above: Performed By: #### L [id number] ####[facility] ([facility] [place] [address] HS TROPONIN I (NG/L) 27 ng/L High <20 [facility] Comment on above: Performed By: #### L [id number] ####[facility] ([facility] [place] [address] HPon 02-19-2025 HP Normal [facility] MAGNESIUMon 02-19-2025 Magnesium [Mass/Vol] 1.9 mg/dL Normal 1.9-2.7 [facility] Comment on above: Performed By: #### L [id number] ####[facility] ([facility] [place] [address] 30on 02-18-2025 30 Normal [facility] ANTI-XA (HEPARIN LEVEL)on HEPARIN UNFRACTIONATED (U/ML) IN PPP BY CHROMOGENIC METHOD <0.10 Invalid Interpretation Code 0.3-0.7 [facility] Comment on above: Order Comment: Check anti-Xa level every 6 hours while on heparin infusion, or per protocol. Result Comment: [place] roxaban and Apixaban will interfere with the anti Xa assay used to monitor UFH and LMWH. Performed By: #### L [id number] ####[facility] ([facility] [place] [address] APTTon 02-18-2025 ACTIVATED PARTIAL THROMBOPLASTIN TIME IN PPP BY COAGULATION ASSAY 32.7 Seconds Normal 25.0-35.0 [facility] Comment on above: Order Comment: Basel ine aPTT before initiating heparin infusion. Result Comment: Clin ical significance of the APTT is questionable in the presence of heparin. Performed By: #### L [id number] ####[facility] ([facility] [place] [address] B-TYPE NATRIURETIC PEPTIDEon 02-18-2025 Natriuretic peptide B (Bld) [Mass/Vol] 491 pg/mL High 0-100 [facility] Comment on above: Performed By: #### L [id number] ####[facility] ([facility])[address] [place] [address] CBC WITH AUTO DIFFERENTIALon 02-18-2025 Basophils (Bld) [#/Vol] 0.02 10*3/uL Normal 0.00-0.20 [facility] Comment on above: Performed By: #### L [id number] ####[facility] [place] [address] Basophils/100 WBC (Bld) 0.3 % Normal 0.0-1.0 [facility] Comment on above: Performed By: #### L [id number] ####[facility] ([facility] [place] [address] Eosinophils (Bld) [#/Vol] 0.08 10*3/uL Normal 0.00-0.50 [facility] Comment on above: Performed By: #### L [id number] ####[facility] ([facility] [place] [address] Eosinophils/100 WBC (Bld) 1.1 % Normal 0.0-6.0 [facility] Comment on above: Performed By: #### L [id number] ####[facility] ([facility] [place] [address] Erythrocyte distribution width (RBC) [Ratio] 15.1 % High 11.5-15.0 [facility] Comment on above: Performed By: #### L [id number] ####[facility] [place] [address] ERYTHROCYTE MEAN CORPUSCULAR HEMOGLOBIN CONCENTRATION (G/DL) BY AUTOMATED 34.5 g/dL Normal 32.0-35.0 [facility] Comment on above: Performed By: #### L [id number] ####[facility] ([facility])[address] [place] [address] Hematocrit (Bld) [Volume fraction] 41.7 % Normal 39.0-50.0 [facility] Comment on above: Performed By: #### L [id number] ####[facility] ([facility])[address] [place] [address] Hemoglobin (Bld) [Mass/Vol] 14.4 g/dL Normal 13.0-17.0 [facility] Comment on above: Performed By: #### L [id number] ####[facility] ([facility])[address] [place] [address] Immature granulocytes (Bld) [#/Vol] 0.03 10*3/uL Normal 0.00-0.20 [facility] Comment on above: Performed By: #### L [id number] ####[facility] ([facility] [place] [address] Immature granulocytes/100 WBC (Bld) 0.4 % Normal 0.0-1.0 [facility] Comment on above: Performed By: #### L [id number] ####[facility] [place] [address] Lymphocytes (Bld) [#/Vol] 1.51 10*3/uL Normal 1.20-4.00 [facility] Comment on above: Performed By: #### L [id number] ####[facility] ([facility]AKER)[address] [place] [address] Lymphocytes/100 WBC (Bld) 20.2 % Normal 20.0-45.0 [facility] Comment on above: Performed By: #### L [id number] ####[facility] ([facility])[address] [place] [address] MCH (RBC) [Entitic mass] 31.5 pg Normal 27.0-33.0 [facility] Comment on above: Performed By: #### L [id number] ####[facility] ([facility]AKER)[address] [place] [address] MCV (RBC) [Entitic vol] 91.2 fL Normal 82.0-98.0 [facility] Comment on above: Performed By: #### L [id number] ####[facility] (BEAKER)[address] [place] [address] Monocytes (Bld) [#/Vol] 0.64 10*3/uL Normal 0.10-1.00 [facility] Comment on above: Performed By: #### L [id number] ####[facility] ([facility])[address] [place] [address] Monocytes/100 WBC (Bld) 8.5 % Normal 5.0-12.0 [facility] Comment on above: Performed By: #### L [id number] ####[facility] ([facility])[address] [place] [address] Neutrophils (Bld) [#/Vol] 5.21 10*3/uL Normal 1.60-7.60 [facility] Comment on above: Performed By: #### L [id number] ####[facility] ([facility]ER)[address] [place] [address] Neutrophils/100 WBC (Bld) 69.5 % Normal 40.0-72.0 [facility] Comment on above: Performed By: #### L [id number] ####[facility] ([facility]ER)[address] [place] [address] NRBC (PER 100 WBCS) BY AUTOMATED COUNT 0.0 % Normal 0 [facility] Comment on above: Performed By: #### L [id number] ####[facility] (BEAKER)[address] [place] [address] PLATELETS (10*3/UL) IN BLOOD AUTOMATED COUNT 195 10*3/uL Normal 150-400 [facility] Comment on above: Performed By: #### L [id number] ####[facility] ([facility]AKER)[address] [place] [address] RBC (Bld) [#/Vol] 4.57 10*6/uL Normal 4.20-5.70 [facility] Comment on above: Performed By: #### L [id number] ####[facility] ([facility]ER)[address] [place] [address] WBC (Bld) [#/Vol] 7.49 10*3/uL Normal 4.00-10.60 [facility] Comment on above: Performed By: #### L [id number] ####[facility] [place] [address] COMPREHENSIVE METABOLIC PANE Rogelio 02-18-2025 Albumin [Mass/Vol] 3.6 g/dL Normal 3.5-5.7 [facility] Comment on above: Performed By: #### L [id number] ####[facility] [place] [address] ALP [Catalytic activity/Vol] 58 U/L Normal 34-104 [facility] Comment on above: Performed By: #### L [id number] ####[facility] ([facility] [place] [address] ALT [Catalytic activity/Vol] 30 U/L Normal 7-52 [facility] Comment on above: Performed By: #### L [id number] ####[facility] [place] [address] Anion gap [Moles/Vol] 11 mmol/L Normal 7-20 [facility] Comment on above: Performed By: #### L [id number] ####[facility] ([facility] [place] [address] AST [Catalytic activity/Vol] 19 U/L Normal 13-39 [facility] Comment on above: Performed By: #### L [id number] ####[facility] ([facility] [place] [address] Bilirubin [Mass/Vol] 3.6 mg/dL High 0.3-1.0 [facility] Comment on above: Performed By: #### L [id number] ####[facility] ([facility] [place] [address] Calcium [Mass/Vol] 8.5 mg/dL Low 8.6-10.3 [facility] Comment on above: Performed By: #### L [id number] ####[facility] (BEAKER)[address] [place] [address] Chloride [Moles/Vol] 108 mmol/L High 98-107 [facility] Comment on above: Performed By: #### L [id number] ####[facility] (BEAKER)[address] [place] [address] CO2 [Moles/Vol] 21 mmol/L Normal 21-31 [facility] Comment on above: Performed By: #### L [id number] ####[facility] ([facility] [place] [address] Creatinine [Mass/Vol] 1.02 mg/dL Normal 0.70-1.30 [facility] Comment on above: Performed By: #### L [id number] ####[facility] ([facility] [place] [address] GLOMERULAR FILTRATION RATE ML/MIN/1.73 SQ M.PREDICTED 85.2 mL/min/1.73m*2 Normal >60.0 [facility] Comment on above: Result Comment: [facility]???s estimated glomerular filtration rate (eGFR) will no longer include consideration of race in its calculation. The National Kidney Foundation???s eGFR Task Force developed new recommendations for [...] disproportionately affect any one group of individuals. Performed By: #### L [id number] ####[facility] ([facility] [place] [address] Glucose [Mass/Vol] 88 mg/dL Normal 70-100 [facility] Comment on above: Performed By: #### L [id number] ####[facility] (BEAKER)[address] [place] [address] Potassium [Moles/Vol] 4.0 mmol/L Normal 3.5-5.1 [facility] Comment on above: Performed By: #### L [id number] ####[facility] ([facility] [place] [address] Protein [Mass/Vol] 5.5 g/dL Low 6.0-8.3 [facility] Comment on above: Performed By: #### L [id number] ####[facility] ([facility] [place] [address] Sodium [Moles/Vol] 136 mmol/L Normal 136-145 [facility] Comment on above: Performed By: #### L [id number] ####[facility] ([facility] [place] [address] Urea nitrogen [Mass/Vol] 21 mg/dL Normal 7-25 [facility] Comment on above: Performed By: #### L [id number] ####[facility] ([facility] [place] [address] UREA NITROGEN/CREATININ E (MASS RATIO) IN SER/PLAS 20.6 Normal [facility] Comment on above: Performed By: #### L [id number] ####[facility] ([facility] [place] [address] HIGH SENSITIVITY TROPONIN Io n 02-18-2025 HS TROPONIN I (NG/L) 27 ng/L High <20 [facility] Comment on above: Performed By: #### L [id number] ####[facility] ([facility] [place] [address] HPon 02-18-2025 HP Normal [facility] LACTIC ACID, PLASMAon 2024 LACTATE (MMOL/L) IN SER/PLAS 1.1 mmol/L Normal 0.5-2.2 [facility] Comment on above: Performed By: #### L [id number] ####[facility] ([facility] [place] [address] MAGNESIUMon 02-18-2025 Magnesium [Mass/Vol] 2.1 mg/dL Normal 1.9-2.7 [facility] Comment on above: Performed By: #### L [id number] ####[facility] (BEAKER)[address] [place] [address] Outside Recordson 02-18-2025 Outside Records [id number]#1 .00OTGTIFF Normal [facility] Outside Records [id number]#1 .00OTGTIFF Normal [facility] Outside Records [id number]#1 .00OTGTIFF Normal [facility] Outside Records [id number]#1 .00OTGTIFF Normal [facility] Outside Records [id number]#1 .00OTGTIFF Normal [facility] Outside Records [id number]#1 .00OTGTIFF Normal [facility] PHOSPHORUSon 02-18-2025 Magnesium [Mass/Vol] 2.7 mg/dL Normal 2.5-5.0 [facility] Comment on above: Performed By: #### L [id number] ####[facility] (VINCENTAKER)[address] [place] [address] PROTIME-INRon 02-18-2025 INR IN PPP BY COAGULATION ASSAY 1.47 High 0.90-1.10 [facility] Comment on above: Result Comment: ACCC P RECOMMENDED INR FOR WARFARIN THERAPY CONDITION INRPROPHYLAXIS OF VENOUS THROMBOSIS 2-3(HIGH-RISK SURGERY)TREATMENT OF VENOUS THROMBOSIS 2-3TREATMENT OF PULMONARY EMBOLISM 2-3PREVENTION OF SYSTEMIC EMBOLISM: 2-3 ACUTE MYOCARDIAL INFARCTION TISSUE HEART VALVES VALVULAR HEART DISEASE ATRIAL FIBRILLATION RECURRENT SYSTEMIC EMBOLISMMECHANICAL HEART VALVE 2.5-3.5 FROM: ORAL ANTICOAGULANTS. MECHANISM OF ACTION, CLINICAL EFFECTIVENESS, AND OPTIMAL THERAPEUTIC RANGE. CHEST 1995;108:231S-246S. Performed By: #### L [id number] ####[facility] ([facility] [place] [address] PROTHROMBIN TIME (PT) IN PPP BY COAGULATION ASSAY 17.9 Seconds High 12.3-14.8 [facility] Comment on above: Performed By: #### L [id number] ####[facility] ([facility] [place] [address] TSH3 REFLEX TO FT4on 025 THYROTROPIN (MIU/L) IN SER/PLAS BY DETECTION LIMIT <= 0.05 MIU/L 3.22 mIU/L Normal 0.34-5.60 [facility] Comment on above: Performed By: #### L [id number] ####[facility] ([facility] [place] [address] Lab - Other Lab Resultson Lab - Other Lab Results [id number]#1 .00OTGTIFF [facility] Orders Onlyon 06-01-2024 Orders Only Normal [facility] Lab - Other Lab Resultson Lab - Other Lab Results [id number]#1.00O TGTIFF [facility] Patient Handouton 05-05-2024 Patient Handout [id number]#1. 00OTGTIFF [facility] Patient Handout [id number]#1. 00OTGTIFF [facility] CBC AUTO DIFFon 05-09-2022 BASO # 0.0 103/ul Normal 0.0-0.1 [facility] Comment on above: Performed By: #### C BC #### [facility] [address] [place] [address] Dr. Anny Corcoran Basophils/100 WBC (Bld) 0.4 % Normal 0.2-2.0 [facility] Comment on above: Performed By: #### C BC #### [facility] [address] [place] [address] Dr. Anny Corcoran EO # 0.1 103/ul Normal 0.0-0.7 [facility] Comment on above: Performed By: #### C BC #### [facility] [address] [place] [address] Dr. Anny Corcoran Eosinophils/100 WBC (Bld) 1.5 % Normal 0.9-7.0 [facility] Comment on above: Performed By: #### C BC #### [facility] [address] [place] [address] Dr. Anny Corcoran Erythrocyte distribution width (RBC) [Ratio] 14.1 % Normal 11.0-15.0 [facility] Comment on above: Performed By: #### C BC #### [facility] [address] [place] [address] Dr. Anny Corcoran Hematocrit (Bld) [Volume fraction] 37.6 % Critically low 42.0-54.0 [facility] Comment on above: Performed By: #### C BC #### [facility] [address] [place] [address] Dr. Anny Corcoran Hemoglobin (Bld) [Mass/Vol] 12.9 g/dL Critically low 14.0-18.0 [facility] Comment on above: Performed By: #### C BC #### [facility] [address] [place] [address] Dr. Anny Corcoran IG # 0.01 10e3/ul Normal 0.00-0.03 [facility] Comment on above: Performed By: #### C BC #### [facility] [address] [place] [address] Dr. Anny Corcoran IG % 0.2 % Normal 0.0-0.5 [facility] Comment on above: Performed By: #### C BC #### [facility] [address] [place] [address] Dr. Anny Corcoran LYMPH # 1.1 103/ul Critically low 1.2-3.8 [facility] Comment on above: Performed By: #### C BC #### [facility] [address] [place] [address] Dr. Anny Corcoran Lymphocytes/100 WBC (Bld) 21.8 % Normal 20.5-60.0 [facility] Comment on above: Performed By: #### C BC #### [facility] [address] [place] [address] Dr. Anny Corcoran MANUAL DIFF REQ NO Normal [facility] Comment on above: Performed By: #### C BC #### [facility] [address] [place] [address] Dr. Anny Corcoran MCH (RBC) [Entitic mass] 31.2 pg Normal 25.9-34.0 [facility] Comment on above: Performed By: #### C BC #### [facility] [address] [place] [address] Dr. Anny Corcoran MCHC (RBC) [Mass/Vol] 34.3 g/dL Normal 29.9-35.2 [facility] Comment on above: Performed By: #### C BC #### [facility] [address] [place] [address] Dr. Anny Corcoran MCV (RBC) [Entitic vol] 90.8 fL Normal 80.0-94.0 [facility] Comment on above: Performed By: #### C BC #### [facility] [address] [place] [address] Dr. Anny Corcoran MONO # 0.4 103/ul Normal 0.3-0.8 [facility] Comment on above: Performed By: #### C BC #### [facility] [address] [place] [address] Dr. Anny Corcoran Monocytes/100 WBC (Bld) 8.5 % Normal 1.7-12.0 [facility] Comment on above: Performed By: #### C BC #### [facility] [address] [place] [address] Dr. Anny Corcoran NEUT # 3.5 103/ul Normal 1.4-6.5 [facility] Comment on above: Performed By: #### C BC #### [facility] [address] [address] [address] Anny Corcoran Neutrophils/100 WBC (Bld) 67.6 % Normal 43.0-75.0 [facility] Comment on above: Performed By: #### C BC #### [facility] [address] [place] [address] Dr. Anny Corcoran Platelet mean volume (Bld) [Entitic vol] 9.4 fL Critically low 9.5-13.5 [facility] Comment on above: Performed By: #### C BC #### [facility] [address] [place] [address] Dr. Anny Corcoran PLT 209 103/ul Normal 150-450 [facility] Comment on above: Performed By: #### C BC #### [facility] [address] [place] [address] Dr. Anny Corcoran RBC 4.14 106/ul Critically low 4.70-6.10 [facility] Comment on above: Performed By: #### C BC #### [facility] [address] [place] [address] Dr. Anny Corcoran WBC 5.2 103/ul Normal 4.0-11.0 [facility] Comment on above: Performed By: #### C BC #### [facility] [address] [place] [address] Dr. Anny Corcorna LIPID PROFILEon 05-09-2022 CHOL-HDL RATIO NORM SEE BELOW Normal [facility] Comment on above: Result Comment: 3.3 - 4.4 LOW RISK 4.4 - 7.1 AVERAGE RISK 7.1 - 11.0 MODERATE RISK >11.0 HIGH RISK Performed By: #### L IPID, CMP #### [facility] [address] [address] [address] Anny Corcoran Cholesterol [Mass/Vol] 103 mg/dL Normal <=200 [facility] Comment on above: Performed By: #### L IPID, CMP #### [facility] [address] [address] [address] Anny Corcoran Cholesterol in HDL [Mass/Vol] 54 mg/dL Normal 40-60 [facility] Comment on above: Performed By: #### L IPID, CMP #### [facility] [address] [address] [address] Anny Corcoran Cholesterol in LDL [Mass/Vol] 43.8 mg/dL Normal [facility] Comment on above: Performed By: #### L IPID, CMP #### [facility] [address] [address] [address] Anny Corcoran Cholesterol.total/ Cholesterol in HDL [Mass ratio] 1.9 {ratio} Normal [facility] Comment on above: Performed By: #### L IPID, CMP #### [facility] [address] [address] [address] Anny Corcoran HDL NORMAL > or = 60 mg/dl - LO W CARDIOVASCULAR RISK <40 mg/dl - HIGH CARDIOVASCULAR RISK Normal [facility] Comment on above: Performed By: #### L IPID, CMP #### [facility] [address] [address] [address] Anny Corcoran LDL CALC NORMAL SEE BELOW Normal [facility] Comment on above: Result Comment: <100 mg/dl OPTIMAL 100 - 129 mg/dl NEAR OR ABOVE OPTIMAL 130 - 159 mg/dl BORDERLINE HIGH 160 - 189 mg/dl HIGH >190 mg/dl VERY HIGH Performed By: #### L IPID, CMP #### [facility] [address] [address] [address] Anny Corcoran Triglyceride [Mass/Vol] 26 mg/dL Normal <=150 [facility] Comment on above: Performed By: #### L IPID, CMP #### [facility] [address] [address] [address] Anny Corcoran VLDL CALC 5.2 mg/dL Normal [facility] Comment on above: Performed By: #### L IPID, CMP #### [facility] [address] [address] [address] Anny Corcoran PROF 14(COMP METB)on 022 Albumin [Mass/Vol] 4.0 g/dL Normal 3.4-5.0 [facility] Comment on above: Performed By: #### L IPID, CMP #### [facility] [address] [place] [address] Dr. Anny Corcoran Albumin/Globulin [Mass ratio] 1.4 {ratio} Normal [facility] Comment on above: Performed By: #### L IPID, CMP #### [facility] [address] [place] [address] Dr. Anny Corcoran ALP [Catalytic activity/Vol] 106 U/L Normal 46-116 [facility] Comment on above: Performed By: #### L IPID, CMP #### [facility] [address] [place] [address] Dr. Anny Corcoran ALT [Catalytic activity/Vol] 28 U/L Normal 16-63 [facility] Comment on above: Performed By: #### L IPID, CMP #### [facility] [address] [place] [address] Dr. Anny Corcoran Anion gap [Moles/Vol] 7.3 mmol/L Normal [facility] Comment on above: Performed By: #### L IPID, CMP #### [facility] [address] [place] [address] Dr. Anny Corcoran AST [Catalytic activity/Vol] 23 U/L Normal 15-37 [facility] Comment on above: Performed By: #### L IPID, CMP #### [facility] [address] [address] [address] Anny Corcoran Bilirubin [Mass/Vol] 2.7 mg/dL Critically high 0.2-1.0 [facility] Comment on above: Performed By: #### L IPID, CMP #### [facility] [address] [place] [address] Dr. Anny Corcoran Calcium [Mass/Vol] 9.0 mg/dL Normal 8.5-10.1 [facility] Comment on above: Performed By: #### L IPID, CMP #### [facility] [address] [place] [address] Dr. Anny Corcoran Chloride [Moles/Vol] 104 mmol/L Normal 98-107 [facility] Comment on above: Performed By: #### L IPID, CMP #### [facility] [address] [place] [address] Dr. Anny Corcoran CO2 [Moles/Vol] 32.5 mmol/L Critically high 21.0-32.0 [facility] Comment on above: Performed By: #### L IPID, CMP #### [facility] [address] [place] [address] Dr. Anny Corcoran Creatinine [Mass/Vol] 0.78 mg/dL Normal 0.70-1.30 [facility] Comment on above: Performed By: #### L IPID, CMP #### [facility] [address] [place] [address] Dr. Anny Corcoran EGFR-AF [place] >60 Normal >=60 [facility] Comment on above: Performed By: #### L IPID, CMP #### [facility] [address] [place] [address] Dr. Anny Corcoran EGFR-NON AF [place] >60 Normal >=60 [facility] Comment on above: Performed By: #### L IPID, CMP #### [facility] [address] [place] [address] Dr. Anny Corcoran Globulin (S) [Mass/Vol] 2.8 g/dL Normal [facility] Comment on above: Performed By: #### L IPID, CMP #### [facility] [address] [place] [address] Dr. Anny Corcoran Glucose [Mass/Vol] 86 mg/dL Normal 74-106 [facility] Comment on above: Performed By: #### L IPID, CMP #### [facility] [address] [place] [address] Dr. Anny Corcoran Potassium [Moles/Vol] 3.8 mmol/L Normal 3.5-5.1 [facility] Comment on above: Performed By: #### L IPID, CMP #### [facility] [address] [place] [address] Dr. Anny Corcoran Protein [Mass/Vol] 6.8 g/dL Normal 6.4-8.2 [facility] Comment on above: Performed By: #### L IPID, CMP #### [facility] [address] [place] [address] Dr. Anny Corcoran Sodium [Moles/Vol] 140 mmol/L Normal 136-145 [facility] Comment on above: Performed By: #### L IPID, CMP #### [facility] [address] [place] [address] Dr. Anny Corcoran Urea nitrogen [Mass/Vol] 19.0 mg/dL Critically high 7.0-18.0 [facility] Comment on above: Performed By: #### L IPID, CMP #### [facility] [address] [place] [address] Dr. Anny Corcoran Urea nitrogen/Creatinin e [Mass ratio] 24.4 mg/mg Normal [facility] Comment on above: Performed By: #### L IPID, CMP #### [facility] [address] [place] [address] Dr. Anny Corcoran LYME DISEASE AB, TOTAL AND I GM W/WB REFLon 06-01-2021 Lyme Disease Ab, Quant, IgM <0.80 Normal 0.00-0.79 [facility] Comment on above: Result Comment: Nega tive <0.80 Equivocal 0.80 - 1.19 Positive >1.19 . IgM levels may peak at 3-6 weeks post infection, then gradually decline. Performed By: #### L YMA #### [facility] [address] [place] [address] Dr. Anny Corcoran Lyme IgG/IgM Ab <0.91 Normal 0.00-0.90 [facility] Comment on above: Result Comment: Nega tive <0.91 Equivocal 0.91 - 1.09 Positive >1.09 Performed By: #### L YMA #### [facility] [address] [address] [address] HEAD WO CONon [...] by: CANDIS MENDEZ Date: 2021-05-21 12:48 Normal [facility] Encounters Encounter Date Encounter Type Care Provider Facility Start: 03-04-2025 Evaluation and management of inpatient [facility] Start: 03-04-2025 Evaluation and management of inpatient SHEELA MARINELLI [facility] Start: 03-03-2025 Evaluation and management of inpatient KARINA [facility] Start: 03-03-2025 Evaluation and management of inpatient [facility] Start: 03-02-2025 Evaluation and management of inpatient RUTH [facility] Start: 02-25-2025 Evaluation and management of inpatient CATARINA SANFORD [facility] Start: 02-24-2025 Evaluation and management of inpatient EDNA RATGORGE [facility] Start: 02-23-2025 Evaluation and management of inpatient RUTH [facility] Start: 02-22-2025 Evaluation and management of inpatient RUTH [facility] Start: 02-22-2025 Evaluation and management of inpatient RUTH [facility] Start: 02-22-2025 Evaluation and management of inpatient IMELDA CHUL CORCORAN [facility] Start: 02-21-2025 Evaluation and management of inpatient IMELDA CORCORAN [facility] Start: 02-19-2025 Evaluation and management of inpatient SARAH REDMAN [facility] Start: 02-18-2025 Evaluation and management of inpatient SHEELA MARINELLI [facility] Start: 02-18-2025 End: 03-05-2025 Evaluation and management of inpatient SIMBA STANTON [facility] Start: 01-28-2025 ambulatory DO LAUREANO LINDER Faci lity:[facility] Start: 10-29-2024 End: 10-29-2024 ambulatory DO LAUREANO LINDER Facility:[facility] Start: 06-01-2024 End: 06[facility]01[facility]: 04-30-[facility]24 End: 04-30-2024 ambulatory LAUREANO LINDER Facility:[facility] Start: 05-14-2022 Encounter for genera l adult medical examination without abnormal findings DR LAUREANO LINDER [facility] Start: 05-09-2022 End: 05-10-[address] LAUREANO LINDER Facility:[facility] Start: 05-09-2022 End: 05-10-2022 Encounter for general adult medical examination without abnormal findings DR LAUREANO LINDER Facility:[facility] Start: 05-30-2021 End: 05-31-[address] LAUREANO LINDER Facility:[facility] Start: 05-21-2021 End: 05-21-[address] KINGSLEY BARNETT Facility:[facility] Procedures Date Procedure Procedure Detail Performing Clinician Start: 06-01-2024 Follow-up visit NI REDMAN Start: 05-09-[address] NELIA BARNETT Comment on above: Performed By: #### P SAD #### [facility] [address] [place] [address] Dr. Anny Corcoran Payers Date Payer Category Payer Unknown [id number] 2012 Unknown [id number] 1966 Unknown [id number] 2.16.84 [id number] 1966 Unknown [id number] 2.16.84 [id number] 1966 Unknown [id number] 2.16.84 [id number] 1966 Unknown [id number] 2.16.8 [id number] 1966 Unknown [id number] 2.16.8 [id number] 1966 Unknown [id number] 2.16.8 [id number] Clinical Notes 06-01-2024 to 03-05-2025 Note Date & Type Note Facility 03-05-2025 Note [facility] 03-05-2025 Note Discharge Planning As per RUCC RN patient is agreeable to [facility]. Referrals made through [facility]. [facility] is able to accept. Added to AVS. [facility] 03-05-2025 Note [facility] 03-04-2025 Note [facility] 03-04-2025 Note [facility] 03-04-2025 Note [facility] 03-04-2025 Note [facility] 03-03-2025 Note [facility] 03-03-2025 Note [facility] 03-03-2025 Note [facility] 03-03-2025 Note [facility] 03-03-2025 Note [facility] 03-03-2025 Note [facility] 03-03-2025 Note [facility] 03-02-2025 Note [facility] 03-02-2025 Note [facility] 03-02-2025 Note [facility] 03-01-2025 Note [facility] 03-01-2025 Note [facility] 03-01-2025 Note [facility] 02-28-2025 Note [facility] 02-27-2025 Note [facility] 02-27-2025 Note [facility] 02-26-2025 Note [facility] 02-26-2025 Note [facility] 02-26-2025 Note [facility] 02-26-2025 Note [facility] 02-26-2025 Note [facility] 02-26-2025 Note [facility] 02-25-2025 Note [facility] 02-25-2025 Note [facility] 02-25-2025 Note [facility] 02-25-2025 Note [facility] 02-25-2025 Note [facility] 02-25-2025 Note [facility] 02-25-2025 Note [facility] 02-25-2025 Note [facility] 02-24-2025 Note [facility] 02-24-2025 Note [facility] 02-24-2025 Note [facility] 02-24-2025 Note [facility] 02-24-2025 Note [facility] 02-24-2025 Note [facility] 02-23-2025 Note [facility] 02-23-2025 Note [facility] 02-23-2025 Note [facility] 02-23-2025 Note [facility] 02-22-2025 Note [facility] 02-22-2025 Note [facility] 02-22-2025 Note - Seen on abdominal rectus abdominal muscles on CT abd/pelvis 02/21 - L noted to be bigger than R - Consider holding heparin - Hgb has been stable [facility] 02-22-2025 Note - Stable [facility] 02-22-2025 Note - Stable, Patient cu rrently not using CPAP [facility] 02-22-2025 Note - Valsartan and spir onolactone held - Blood pressure has been rather hypotensive [facility] 02-22-2025 Note [facility] 02-22-2025 Note [facility] 02-22-2025 Note [facility] 02-22-2025 Note [facility] 02-22-2025 Note [facility] 02-21-2025 Note [facility] 02-21-2025 Note [facility] 02-21-2025 Note [facility] 02-21-2025 Note - Stable [facility] 02-21-2025 Note [facility] 02-21-2025 Note - Stable, Patient cu rrently not using CPAP [facility] 02-21-2025 Note - Continue current v alsartan, spironolactone and Toprol-XL for GDMT - Blood pressure has been within acceptable range on 8 AM [facility] 02-21-2025 Note [facility] 02-20-2025 Note [facility] 02-20-2025 Note [facility] 02-20-2025 Note - Stable,Patient cur rently not using CPAP [facility] 02-20-2025 Note - Stable [facility] 02-20-2025 Note - Continue current l isinopril and Toprol-XL [facility] 02-20-2025 Note [facility] 02-20-2025 Note [facility] 02-19-2025 Note - Stable [facility] 02-19-2025 Note - Continue current l isinopril and Toprol-XL [facility] 02-19-2025 Note [facility] 02-19-2025 Note - Stable,Patient cur rently not using CPAP [facility] 02-19-2025 Note [facility] 02-19-2025 Note [facility] 02-19-2025 Note [facility] 02-19-2025 Note A/p reviewed and agreed [facility] 02-18-2025 Note - Cardiology consult [facility] 02-18-2025 Note - Stable [facility] 02-18-2025 Note - Continue labetalol [facility] 02-18-2025 Note - Small pericardial effusion noted on echocardiogram, cardiology consult [facility] 02-18-2025 Note [facility] 02-18-2025 Note [facility] 06-01-2024 Note [facility] Summary Purpose Family History No [...] and content) DATE CREATED AUTHOR 05/14/2022 [facility] DATE CREATED AUTHOR AUTHOR'S ORGANIZ ATION 03/09/2025 [facility] DATE CREATED AUTHOR AUTHOR'S ORGANIZ ATION 03/09/2025 [facility] FOR RECORDS PERTAINING TO PATIENTS WHO [...] BE BASED ON THE PRIMARY CLINICAL RECORDS. [employer] provides no warranty or guarantee of the accuracy or completeness of information in this document.
== END 2025-03-10 18:57 | disposition home or self-care (01) ==
PROVIDERS: Emergency Provider Emergency Medicine; Family Provider Internal Medicine Interventional Cardiology; PCP Family Medicine
DX: R55 Syncope and collapse (principal); Z79.01 Long term (current) use of anticoagulants
CPT/HCPCS: 70450; 72125; 76376; 93005; 99284

== ENCOUNTER 2025-03-12 14:46 | Outpatient (OUT) | payer OTHER, SELFPAY ==
--- OUTSIDE RECORDS SUMMARY | 2024-06-19 05:00 | XMS_ITS | Continuity of Care Document ---
Author Organization [employer] [facility] Address [address] [facility] [place] [address] Phone Care Team Providers Care Documentation Improvement Specialist Name Role Phone Dany De Jesus MD [...] Providers Copied on Encounter OFFICE/OUTPA TIENT VISIT, [employer] [facility], [address], [place], [address] , [place] tel:[phone] [facility] No Information 4 Neal Saenz. [address], [place], [place], [address], [place]. tel:[phone] Referring Provider: Dany Arroyo, [address], [place], [address]. tel:[phone] OFFICE/OUTPA TIENT VISIT, [employer] [facility], [address], [place], [place], [address] , [place] tel:[phone] [facility] No Information 3 Neal Saenz. [address], [place], [place], [address], [place]. tel:[phone] Referring Provider: Dany Arroyo, [address], [place], [address]. tel:[phone] [employer] [facility], [address], [place], [address] , [place] [phone] [facility] No Information 3 Neal Saenz. [address], [place], [place], [address], [place]. tel:[phone] Referring Provider: Dany Arroyo, [address], [place], [address]. tel:[phone] OFFICE/OUTPA TIENT VISIT, [employer] [facility], [address], [place], [place], [address] , [place] [phone] [facility] No Information 2 Neal Saenz. [address], [place], [place], [address], [place]. tel:[phone] Referring Provider: Dany Arroyo, [address], [place], [address]. tel:[phone] OFFICE/OUTPA TIENT VISIT, [employer] [facility], [address] [place] [address] [address], [place], [place], [address] , [place] tel:[phone] [facility] No Information 1 Neal Saenz. [address] [place] [address] [address], [place], [place], [address], [place]. tel:[phone] Referring Provider: Dany Arroyo, [address] [facility] [address], [place], [address]. tel:[phone] OFFICE/OUTPA TIENT VISIT, [employer] [facility], [address] [place] [address] [address], [place], [place], [address] , [place] tel:[phone] [facility] No Information 0 Neal Saenz. [address] [place] [address] Suite [facility], [place], [place], [address], [place]. tel:[phone] Referring Provider: Dany Arroyo, [address] [facility] [address] [facility], [place], [address]. tel:[phone] OFFICE/OUTPA TIENT VISIT, [employer] [facility], [address] [place] [address] [address], [place], [place], [address] , [place] [phone] [facility] No Information 0 Neal Saenz. [address] [facility] [address] [facility], [place], [place], [address], [place]. tel:[phone] Referring Provider: Dany Arroyo, [address] [facility] [address], [place], [address]. tel:[phone] PHONE E/M BY MARY ANN 11- [facility] [employer] [facility], [address] [place] [address] [address], [place], [place], [address] , [place] tel:[phone] [facility] No Information 0 Neal Saenz. [address] [facility] [address] [facility], [place], [place], [address], [place]. tel:[phone] Referring Provider: Dany Arroyo, [address], [place], [address]. tel:[phone] [employer] [facility], [address] [place] [address] [address], [place], [place], [address] , [place] tel:[phone] [facility] No Information 0 Neal Saenz. [address], [place], [place], [address], [place]. tel:[phone] Referring Provider: Dany Arroyo, [address] [facility] [address], [place], [address]. tel:[phone] [employer] [facility], [address] [place] [address] [address], [place], [place], [address] , [place] tel:[phone] [facility] No Information 0 Neal Saenz. [address] [facility] [address], [place], [place], [address], [place]. tel:[phone] Referring Provider: Dany Arroyo, [address] [facility] [address], [place], [address]. tel:[phone] [employer] [facility], [address] [place] [address] [address], [place], [place], [address] , [place] tel:[phone] [facility] No Information 0 Neal Saenz. [address] [facility] [address], [place], [place], [address], [place]. tel:[phone] Referring Provider: Dany Arroyo, [address] [facility] [address], [place], [address]. tel:[phone] [facility], [address] [place] [address] [address], [place], [place], [address] , [place] tel:[phone] [facility] No Information 0 Dain Patterson. [address], [place], [address], [place]. tel:[phone] Referring Provider: Yesenia Siddiqui, [address] [place], [address]. tel:[phone] INITIAL INPATIENT CONSULT [facility], [address] [place] [address] [address], [place], [place], [address] , [place] tel: [phone] [facility] IP No Information 0 Lulu Luo. [address], [place], [place], [address], [place]. tel:[phone] Referring Provider: Valerio Lawson MD, [address], [place], [address]. tel:[phone] SUBSEQUENT [facility], [address] [place] [address] [address], [place], [place], [address] , [place] tel: [phone] [facility] IP No Information 0 Tiago Onofre. [address], [place], [address], [place]. tel:[phone] Referring Provider: Flakitoalexx Ordoñez, [address] [facility], [place], [address]. tel:[phone] INITIAL INPATIENT CONSULT [employer] [facility], [address] [place] [address] [address], [place], [place], [address] , [place] tel: [phone] [facility] IP No Information 0 Tereza Chavis. [address], [place], [address], [place]. tel:[phone] Referring Provider: Palmira Starks, [address] [place], [address]. tel:[phone] NURSING [facility], [facility], [address] [place] [address] [address], [place], [place], [address] , [place] tel:[phone] [facility] [place] No Information 0 Marylu Downs. [address] [place] [address] [address], [place], [place], [address], [place]. tel:[phone] Referring Provider: Himanshu Siddiqui, [address] [facility], [address], [place], [address]. tel:[phone] NURSING [facility], [facility], [address] [facility] [address], [place], [address] , [place] tel: [phone] [facility] Skilled No Information 0 Pradeep Tomlin. [address], [place], [place], [address], [place]. tel:[phone] Referring Provider: Sada SCOTT, [address], [place], [address]. tel:[phone] [address] [place] [address], [address] [place] [address] [address], [place], [address] , [place] tel: [phone] [facility] IP No Information 9 Neal Saenz. [address] [facility] [address], [facility] [place], [address], [place]. [phone] Referring Provider: Dany Arroyo, [address] [facility] [address], [place], [address]. tel:[phone] [facility], [address] [place] [address] [address], [place], [address] , [place] tel: [phone] [facility] IP No Information 9 Blaise Garcia. [address] [facility] [address], [facility] [place], [address], [place]. tel:[phone] Referring Provider: Radha Welsh, [address] [facility] [address], [place], [address]. tel:[phone] OFFICE/OUTPA TIENT VISIT, [facility], [address] [facility] [address], [place], [place], [address] , [place] tel: [phone] [facility] No Information Neal Saenz. [address] [facility] [address], [place], [place], [address], [place]. tel:[phone] Referring Provider: Dany Arroyo, [address] [facility] [address], [place], [address]. tel:[phone] PSYCH DIAGNOSTIC EVALUATION [facility], [address] [place] [address] [address], [place], [place], [address] , [place] tel:[phone] [facility] No Information No Information OFFICE/OUTPA TIENT VISIT, [facility], [address] [facility] [address], [place], [place], [address] , [place] tel:[phone] [facility] No Information Neal Saenz. [address] [facility] [address], [place], [place], [address], [place]. tel:[phone] Referring Provider: Dany Arroyo, [address] [facility] [address], [place], [address]. tel:[phone] Family History Family Member Type Diagnosis Age At Onset No Information Payers Payer name Insurance type Covered libertarian ID Brenden pacheco(s) [employer] Benefits CI [id number] Social History Type Description Quantity Date Captured [...]
--- OUTSIDE RECORDS SUMMARY | 2025-03-12 15:24 | XMS_ITS | CCD ---
Author Organization [facility] Care Team Providers Care Tube Maker Name Role Phone ANIBAL, DR KINGSLEY Mariee [...] Unavailable HOUSE, DO LAUREANO Manuel Attending Unavailable SARAH REDMAN Referring Unavailable PIRKL, SHEELA Referring Unavailable CORCORAN, IMELDA CHUL Referring Unavailable SAFI, RUTH Referring Unavailable CORCORAN, IMELDA CHUL Referring Unavailable SAFI, RUTH Referring Unavailable PIRKL, SHEELA Referring Unavailable KENNEY, SAMER J Referring Unavailable ALMAS, SAMAR Referring Unavailable SAFI, RUTH Referring Unavailable SAFI, RUTH Referring Unavailable HORANI, SIMBA Referring Unavailable SAFI, RUTH Admitting Unavailable SAFI, RUTH Attending Unavailable NACATARINA STILL Referring Unavailable RATNAM, EDNA Referring Unavailable SÁNCHEZ, CE Attending Unavailable ELTAHAWY, EHAB Attending Unavailable SAFI, RUTH Referring Unavailable SAFI, RTUH Referring Unavailable Problems Active Problems Problem Classification Problem Date Documented Da te Episodic/Chronic Cardiac dysrhythmias (4 sources) Unspecified atrial fibrillation; Translations: [Paroxysmal atrial fibrillation] Onset: 02-18-2025 Chronic Congestive heart failure; nonhypertensive (4 sources) Chronic systolic (congestive) heart failure; Translations: [Acute systolic (congestive) heart failure] Onset: 02-18-2025 Chronic Coronary atherosclerosis and other heart disease (4 sources) Atherosclerotic heart disease of minto coronary artery without angina pectoris; Translations: [Unstable angina] Onset: 02-18-2025 Chronic Deficiency and other anemia (2 sources) Iron deficiency anemia secondary to blood loss (chronic); Translations: [Iron deficiency anemia secondary to blood loss (chronic)] Onset: 03-10-2025 Chronic Headache; including migraine (1 source) Headache; including migraine; Translations: [HEADACHE UNSPECIFIED] Onset: 05-23-2021 Hyperplasia of prostate (2 sources) Benign prostatic hyperplasia without lower urinary tract symptoms; Translations: [Benign prostatic hyperplasia without lower urinary tract symptoms] Onset: 02-18-2025 Chronic Hypertension with complications and secondary hypertension (2 sources) Hypertensive heart disease with heart failure; Translations: [Hypertensive heart disease with heart failure] Onset: 03-10-2025 Chronic Other and ill-defined heart disease (2 sources) Cardiomegaly; Translations: [Cardiomegaly] Onset: 03-10-2025 Chronic Other circulatory disease (2 sources) Orthostatic hypotension; Translations: [Orthostatic hypotension] Onset: 03-10-2025 Episodic Other gastrointestinal disorders (2 sources) Bariatric surgery status; Translations: [Bariatric surgery status] Onset: 02-18-2025 Episodic Residual codes; unclassified (2 sources) Edema, unspecified; Translations: [Edema, unspecified] Onset: 02-18-2025 Episodic Syncope (2 sources) Syncope and collapse; Translations: [Syncope and collapse] Onset: 03-10-2025 Episodic Past or Other Problems Problem Classification Problem Date Documented Da te Episodic/Chronic Other aftercare (1 source) 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; Translations: [OTH HIGH RISK OB CURRENT DRUG THERAPY] Onset: 05-23-2021 Episodic Other nervous system disorders (4 sources) Pruitt's palsy; 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] Onset: 05-30-2021 Episodic Other skin disorders (3 sources) Localized swelling, mass and lump, head; Translations: [LOCALIZED SWELLING MASS AND LUMP HEAD] Onset: 05-21-2021 Episodic Results Test Name Value Interpretation Reference Range Facility 36on 03-11-2025 36 PT INFORMED HE STATE S HE WILL BE IN 03/12/25 IN THE MORNING [facility] 36 Normal [facility] Documentationon 03-11-2025 Documentation Normal [facility] Telephoneon 03-11-2025 Telephone Normal [facility] 37on 03-10-2025 37 *Stop aspirin *Have lab work done in 2 weeks Normal [facility] 36on 03-08-2025 36 Normal [facility] Outside Recordson 03-08-2025 Outside Records [id number] 10 [id number] [facility] Telephoneon 03-08-2025 Telephone Normal [facility] 30on 03-05-2025 30 The patient is Moderately Stable - Low risk of patient condition declining or worsening The patient's goals for the shift include Comfort and rest The clinical goals for the shift include VSS and safety Normal [facility] CBCon 03-05-2025 Erythrocyte distribution width (RBC) [Ratio] 16.3 % High 11.5-15.0 [facility] Comment on above: Performed By: #### L [id number] ####[facility] (BEAKER)[address] [place] [address] ERYTHROCYTE MEAN CORPUSCULAR HEMOGLOBIN CONCENTRATION (G/DL) BY AUTOMATED 33.5 g/dL Normal 32.0-35.[address] [facility] Comment on above: Performed By: #### L [id number] ####[facility] ([facility])[address] [place] [address] Hematocrit (Bld) [Volume fraction] 24.2 % Low 39.0-50.0 [facility] Comment on above: Performed By: #### L [id number] ####[facility] ([facility])[address] [place] [address] Hemoglobin (Bld) [Mass/Vol] 8.1 g/dL Low 13.0-17.0 [facility] Comment on above: Performed By: #### L [id number] ####[facility] ([facility])[address] [place] [address] MCH (RBC) [Entitic mass] 30.1 pg Normal 27.0-33.0 [facility] Comment on above: Performed By: #### L [id number] ####[facility] ([facility])[address] [place] [address] MCV (RBC) [Entitic vol] 90.0 fL Normal 82.0-98.0 [facility] Comment on above: Performed By: #### L [id number] ####[facility] ([facility])[address] [place] [address] PLATELETS (10*3/UL) IN BLOOD AUTOMATED COUNT 399 10*3/uL Normal 150-400 [facility] Comment on above: Performed By: #### L [id number] ####[facility] ([facility])[address] [place] [address] RBC (Bld) [#/Vol] 2.69 10*6/uL Low 4.20-5.70 [facility] Comment on above: Performed By: #### L [id number] ####[facility] ([facility])[address] [place] [address] WBC (Bld) [#/Vol] 7.45 10*3/uL Normal 4.00-10.60 [facility] Comment on above: Performed By: #### L [id number] ####[facility] ([facility])[address] [place] [address] COMPREHENSIVE METABOLIC PANE Rogelio 03-05-2025 Albumin [Mass/Vol] 3.0 g/dL Low 3.5-5.7 [facility] Comment on above: Performed By: #### L [id number] ####[facility] ([facility])[address] [place] [address] ALP [Catalytic activity/Vol] 60 U/L Normal 34-104 [facility] Comment on above: Performed By: #### L [id number] ####[facility] ([facility])[address] [place] [address] ALT [Catalytic activity/Vol] 15 U/L Normal 7-52 [facility] Comment on above: Performed By: #### L [id number] ####[facility] ([facility])[address] [place] [address] Anion gap [Moles/Vol] 9 mmol/L Normal 7-20 [facility] Comment on above: Performed By: #### L [id number] ####[facility] ([facility])[address] [place] [address] AST [Catalytic activity/Vol] 16 U/L Normal 13-39 [facility] Comment on above: Performed By: #### L [id number] ####[facility] ([facility])[address] [place] [address] Bilirubin [Mass/Vol] 3.8 mg/dL High 0.3-1.0 [facility] Comment on above: Performed By: #### L [id number] ####[facility] ([facility])[address] [place] [address] Calcium [Mass/Vol] 8.1 mg/dL Low 8.6-10.3 [facility] Comment on above: Performed By: #### L [id number] ####[facility] ([facility])[address] [place] [address] Chloride [Moles/Vol] 103 mmol/L Normal 98-107 [facility] Comment on above: Performed By: #### L [id number] ####[facility] ([facility])[address] [place] [address] CO2 [Moles/Vol] 24 mmol/L Normal 21-31 [facility] Comment on above: Performed By: #### L [id number] ####[facility] ([facility])[address] [place] [address] Creatinine [Mass/Vol] 0.73 mg/dL Normal 0.70-1.30 [facility] Comment on above: Performed By: #### L [id number] ####[facility] ([facility])[address] [place] [address] GLOMERULAR FILTRATION RATE ML/MIN/1.73 SQ M.PREDICTED 105.5 mL/min/1.73m*2 Normal >60.0 [facility] Comment on above: Result Comment: The [facility]???s estimated glomerular filtration rate (eGFR) will no [...] of individuals. Performed By: #### L [id number] ####[facility] ([facility])[address] [place] [address] Glucose [Mass/Vol] 85 mg/dL Normal 70-100 [facility] Comment on above: Performed By: #### L [id number] ####[facility] ([facility])[address] [place] [address] Potassium [Moles/Vol] 3.9 mmol/L Normal 3.5-5.1 [facility] Comment on above: Performed By: #### L [id number] ####[facility] ([facility])[address] [place] [address] Protein [Mass/Vol] 5.2 g/dL Low 6.0-8.3 [facility] Comment on above: Performed By: #### L [id number] ####[facility] ([facility])[address] [place] [address] Sodium [Moles/Vol] 132 mmol/L Low 136-145 [facility] Comment on above: Performed By: #### L [id number] ####[facility] ([facility])[address] [place] [address] Urea nitrogen [Mass/Vol] 13 mg/dL Normal 7-25 [facility] Comment on above: Performed By: #### L [id number] ####[facility] ([facility])[address] [place] [address] UREA NITROGEN/CREATININE (MASS RATIO) IN SER/PLAS 17.8 Normal [facility] Comment on above: Performed By: #### L [id number] ####[facility] ([facility])[address] [place] [address] DSon 03-05-2025 DS Normal [facility] MAGNESIUMon 03-05-2025 Magnesium [Mass/Vol] 1.9 mg/dL Normal 1.9-2.7 [facility] Comment on above: Performed By: #### L [id number] ####[facility] ([facility])[address] [place] [address] PHOSPHORUSon 03-05-2025 Magnesium [Mass/Vol] 3.0 mg/dL Normal 2.5-5.0 [facility] Comment on above: Performed By: #### L [id number] ####[facility] ([facility])[address] [place] [address] 30on 03-04-2025 30 Normal [facility] 30 The patient is Moderately Stable - Low risk of patient condition declining or worsening The patient's goals for the shift include comfort The clinical goals for the shift include VSS, safety Normal [facility] ANTI-XA (HEPARIN LEVEL)on HEPARIN UNFRACTIONATED (U/ML) IN PPP BY CHROMOGENIC METHOD 0.34 IU/mL Normal 0.3-0.7 [facility] Comment on above: Result Comment: [place] roxaban and Apixaban will interfere with the anti Xa assay used to monitor UFH and LMWH. Performed By: #### L [id number] ####[facility] ([facility])[address] [place] [address] HEPARIN UNFRACTIONATED (U/ML) IN PPP BY CHROMOGENIC METHOD 0.30 IU/mL Normal 0.3-0.7 [facility] Comment on above: Result Comment: [place] roxaban and Apixaban will interfere with the anti Xa assay used to monitor UFH and LMWH. Performed By: #### L [id number] ####[facility] ([facility])[address] [place] [address] CBCon 03-04-2025 Erythrocyte distribution width (RBC) [Ratio] 16.3 % High 11.5-15.0 [facility] Comment on above: Performed By: #### L [id number] ####[facility] (BEAKER)[address] [address] ERYTHROCYTE MEAN CORPUSCULAR HEMOGLOBIN CONCENTRATION (G/DL) BY AUTOMATED 34.1 g/dL Normal 32.0-35.[address] [facility] Comment on above: Performed By: #### L [id number] ####[facility] ([facility])[address] [place] [address] Hematocrit (Bld) [Volume fraction] 22.6 % Low 39.0-50.0 [facility] Comment on above: Performed By: #### L [id number] ####[facility] ([facility])[address] [place] [address] Hemoglobin (Bld) [Mass/Vol] 7.7 g/dL Low 13.0-17.0 [facility] Comment on above: Performed By: #### L [id number] ####[facility] ([facility])[address] [place] [address] MCH (RBC) [Entitic mass] 30.6 pg Normal 27.0-33.0 [facility] Comment on above: Performed By: #### L [id number] ####[facility] ([facility])[address] [place] [address] MCV (RBC) [Entitic vol] 89.7 fL Normal 82.0-98.0 [facility] Comment on above: Performed By: #### L [id number] ####[facility] ([facility])[address] [place] [address] PLATELETS (10*3/UL) IN BLOOD AUTOMATED COUNT 359 10*3/uL Normal 150-400 [facility] Comment on above: Performed By: #### L [id number] ####[facility] ([facility])[address] [place] [address] RBC (Bld) [#/Vol] 2.52 10*6/uL Low 4.20-5.70 [facility] Comment on above: Performed By: #### L [id number] ####[facility] ([facility])[address] [place] [address] WBC (Bld) [#/Vol] 5.41 10*3/uL Normal 4.00-10.60 [facility] Comment on above: Performed By: #### L [id number] ####[facility] ([facility])[address] [place] [address] COMPREHENSIVE METABOLIC PANE Rogelio 03-04-2025 Albumin [Mass/Vol] 2.8 g/dL Low 3.5-5.7 [facility] Comment on above: Performed By: #### L [id number] ####[facility] ([facility])[address] [place] [address] ALP [Catalytic activity/Vol] 55 U/L Normal 34-104 [facility] Comment on above: Performed By: #### L [id number] ####[facility] ([facility])[address] [place] [address] ALT [Catalytic activity/Vol] 17 U/L Normal 7-52 [facility] Comment on above: Performed By: #### L [id number] ####[facility] ([facility])[address] [place] [address] Anion gap [Moles/Vol] 8 mmol/L Normal 7-20 [facility] Comment on above: Performed By: #### L [id number] ####[facility] ([facility])[address] [place] [address] AST [Catalytic activity/Vol] 17 U/L Normal 13-39 [facility] Comment on above: Performed By: #### L [id number] ####[facility] ([facility])[address] [place] [address] Bilirubin [Mass/Vol] 3.7 mg/dL High 0.3-1.0 [facility] Comment on above: Performed By: #### L [id number] ####[facility] ([facility])[address] [place] [address] Calcium [Mass/Vol] 7.7 mg/dL Low 8.6-10.3 [facility] Comment on above: Performed By: #### L [id number] ####[facility] ([facility])[address] [place] [address] Chloride [Moles/Vol] 103 mmol/L Normal 98-107 [facility] Comment on above: Performed By: #### L [id number] ####[facility] ([facility])[address] [place] [address] CO2 [Moles/Vol] 25 mmol/L Normal 21-31 [facility] Comment on above: Performed By: #### L [id number] ####[facility] ([facility])[address] [place] [address] Creatinine [Mass/Vol] 0.66 mg/dL Low 0.70-1.30 [facility] Comment on above: Performed By: #### L [id number] ####[facility] ([facility])[address] [place] [address] GLOMERULAR FILTRATION RATE ML/MIN/1.73 SQ M.PREDICTED 108.7 mL/min/1.73m*2 Normal >60.0 [facility] Comment on above: Result Comment: [facility]???s estimated glomerular filtration rate (eGFR) will no [...] of individuals. Performed By: #### L [id number] ####[facility] ([facility])[address] [place] [address] Glucose [Mass/Vol] 86 mg/dL Normal 70-100 [facility] Comment on above: Performed By: #### L [id number] ####[facility] ([facility])[address] [place] [address] Potassium [Moles/Vol] 3.8 mmol/L Normal 3.5-5.1 [facility] Comment on above: Performed By: #### L [id number] ####[facility] ([facility])[address] [place] [address] Protein [Mass/Vol] 4.9 g/dL Low 6.0-8.3 [facility] Comment on above: Performed By: #### L [id number] ####[facility] ([facility])[address] [place] [address] Sodium [Moles/Vol] 132 mmol/L Low 136-145 [facility] Comment on above: Performed By: #### L [id number] ####[facility] ([facility])[address] [place] [address] Urea nitrogen [Mass/Vol] 15 mg/dL Normal 7-25 [facility] Comment on above: Performed By: #### L [id number] ####[facility] ([facility])[address] [place] [address] UREA NITROGEN/CREATININE (MASS RATIO) IN SER/PLAS 22.7 Normal [facility] Comment on above: Performed By: #### L [id number] ####[facility] ([facility])[address] [place] [address] CTA HEART CORONARY W IV CONT RAST W OR WO FFRCTon 03-04-2025 CTA HEART CORONARY W IV CONTRAST W OR WO FFRCT Invalid Interpretation Code [facility] MAGNESIUMon 03-04-2025 Magnesium [Mass/Vol] 2.0 mg/dL Normal 1.9-2.7 [facility] Comment on above: Performed By: #### L [id number] ####[facility] ([facility])[address] [place] [address] NURSNOTEon 03-04-2025 NURSNOTE Noted sinus rhythem Normal Unive [facility] PHOSPHORUSon 03-04-2025 Magnesium [Mass/Vol] 2.7 mg/dL Normal 2.5-5.0 [facility] Comment on above: Performed By: #### L [id number] ####[facility] ([facility])[address] [place] [address] 30on 03-03-2025 30 Normal [facility] ANTI-XA (HEPARIN LEVEL)on HEPARIN UNFRACTIONATED (U/ML) IN PPP BY CHROMOGENIC METHOD 0.23 IU/mL Low 0.3-0.7 [facility] Comment on above: Result Comment: [place] roxaban and Apixaban will interfere with the anti Xa assay used to monitor UFH and LMWH. Performed By: #### L [id number] ####[facility] ([facility])[address] [place] [address] HEPARIN UNFRACTIONATED (U/ML) IN PPP BY CHROMOGENIC METHOD 0.31 IU/mL Normal 0.3-0.7 [facility] Comment on above: Result Comment: [place] roxaban and Apixaban will interfere with the anti Xa assay used to monitor UFH and LMWH. Performed By: #### L [id number] ####[facility] ([facility])[address] [place] [address] APTTon 03-03-2025 ACTIVATED PARTIAL THROMBOPLASTIN TIME IN PPP BY COAGULATION ASSAY 41.8 Seconds High 25.0-35.0 [facility] Comment on above: Order Comment: Basel ine aPTT before initiating heparin infusion. Result Comment: Clin ical significance of the APTT is questionable in the presence of heparin. Performed By: #### L [id number] ####[facility] ([facility])[address] [place] [address] CBCon 03-03-2025 Erythrocyte distribution width (RBC) [Ratio] 16.4 % High 11.5-15.0 [facility] Comment on above: Performed By: #### L [id number] ####[facility] ([facility])[address] [place] [address] ERYTHROCYTE MEAN CORPUSCULAR HEMOGLOBIN CONCENTRATION (G/DL) BY AUTOMATED 34.0 g/dL Normal 32.0-35.[address] [facility] Comment on above: Performed By: #### L [id number] ####[facility] ([facility])[address] [place] [address] Hematocrit (Bld) [Volume fraction] 24.1 % Low 39.0-50.0 [facility] Comment on above: Performed By: #### L [id number] ####[facility] ([facility])[address] [place] [address] Hemoglobin (Bld) [Mass/Vol] 8.2 g/dL Low 13.0-17.0 [facility] Comment on above: Performed By: #### L [id number] ####[facility] ([facility])[address] [place] [address] MCH (RBC) [Entitic mass] 30.5 pg Normal 27.0-33.0 [facility] Comment on above: Performed By: #### L [id number] ####[facility] ([facility])[address] [place] [address] MCV (RBC) [Entitic vol] 89.6 fL Normal 82.0-98.0 [facility] Comment on above: Performed By: #### L [id number] ####[facility] ([facility])[address] [place] [address] PLATELETS (10*3/UL) IN BLOOD AUTOMATED COUNT 370 10*3/uL Normal 150-400 [facility] Comment on above: Performed By: #### L [id number] ####[facility] ([facility])[address] [place] [address] RBC (Bld) [#/Vol] 2.69 10*6/uL Low 4.20-5.70 [facility] Comment on above: Performed By: #### L [id number] ####[facility] ([facility])[address] [place] [address] WBC (Bld) [#/Vol] 5.84 10*3/uL Normal 4.00-10.60 [facility] Comment on above: Performed By: #### L [id number] ####[facility] ([facility])[address] [place] [address] COMPREHENSIVE METABOLIC PANE Rogelio 03-03-2025 Albumin [Mass/Vol] 2.9 g/dL Low 3.5-5.7 [facility] Comment on above: Performed By: #### L [id number] ####[facility] ([facility])[address] [place] [address] ALP [Catalytic activity/Vol] 55 U/L Normal 34-104 [facility] Comment on above: Performed By: #### L [id number] ####[facility] ([facility])[address] [place] [address] ALT [Catalytic activity/Vol] 18 U/L Normal 7-52 [facility] Comment on above: Performed By: #### L [id number] ####[facility] ([facility])[address] [place] [address] Anion gap [Moles/Vol] 9 mmol/L Normal 7-20 [facility] Comment on above: Performed By: #### L [id number] ####[facility] ([facility])[address] [place] [address] AST [Catalytic activity/Vol] 23 U/L Normal 13-39 [facility] Comment on above: Performed By: #### L [id number] ####[facility] ([facility])[address] [place] [address] Bilirubin [Mass/Vol] 4.0 mg/dL High 0.3-1.0 [facility] Comment on above: Performed By: #### L [id number] ####[facility] ([facility])[address] [place] [place] [address] Calcium [Mass/Vol] 7.8 mg/dL Low 8.6-10.3 [facility] Comment on above: Performed By: #### L [id number] ####[facility] ([facility])[address] [place] [address] Chloride [Moles/Vol] 102 mmol/L Normal 98-107 [facility] Comment on above: Performed By: #### L [id number] ####[facility] ([facility])[address] [place] [address] CO2 [Moles/Vol] 25 mmol/L Normal 21-31 [facility] Comment on above: Performed By: #### L [id number] ####[facility] ([facility])[address] [place] [address] Creatinine [Mass/Vol] 0.69 mg/dL Low 0.70-1.30 [facility] Comment on above: Performed By: #### L [id number] ####[facility] ([facility])[address] [place] [address] GLOMERULAR FILTRATION RATE ML/MIN/1.73 SQ M.PREDICTED 107.3 mL/min/1.73m*2 Normal >60.0 [facility] Comment on above: Result Comment: The [facility]???s estimated glomerular filtration rate (eGFR) will no [...] of individuals. Performed By: #### L [id number] ####[facility] ([facility])[address] [place] [address] Glucose [Mass/Vol] 88 mg/dL Normal 70-100 [facility] Comment on above: Performed By: #### L [id number] ####[facility] ([facility])[address] [place] [address] Potassium [Moles/Vol] 4.0 mmol/L Normal 3.5-5.1 [facility] Comment on above: Performed By: #### L [id number] ####[facility] ([facility])[address] [place] [address] Protein [Mass/Vol] 5.1 g/dL Low 6.0-8.3 [facility] Comment on above: Performed By: #### L [id number] ####[facility] ([facility])[address] [place] [address] Sodium [Moles/Vol] 132 mmol/L Low 136-145 [facility] Comment on above: Performed By: #### L [id number] ####[facility] ([facility])[address] [place] [address] Urea nitrogen [Mass/Vol] 12 mg/dL Normal 7-25 [facility] Comment on above: Performed By: #### L [id number] ####[facility] ([facility])[address] [place] [address] UREA NITROGEN/CREATININE (MASS RATIO) IN SER/PLAS 17.4 Normal [facility] Comment on above: Performed By: #### L [id number] ####[facility] ([facility])[address] [place] [address] DIGOXIN LEVELon 03-03-2025 DIGOXIN (NG/ML) IN SER/PLAS 0.6 ng/mL Low 0.7-2 [facility] Comment on above: Performed By: #### L [id number] ####[facility] ([facility])[address] [place] [address] MAGNESIUMon 03-03-2025 Magnesium [Mass/Vol] 2.0 mg/dL Normal 1.9-2.7 [facility] Comment on above: Performed By: #### L [id number] ####[facility] ([facility])[address] [place] [address] NURSNOTEon 03-03-2025 NURSNOTE Normal [facility] NURSNOTE Normal [facility] NURSNOTE Normal [facility] PHOSPHORUSon 03-03-2025 Magnesium [Mass/Vol] 2.9 mg/dL Normal 2.5-5.0 [facility] Comment on above: Performed By: #### L [id number] ####[facility] ([facility])[address] [place] [address] PLATELET COUNTon 03-03-2025 PLATELETS (10*3/UL) IN BLOOD AUTOMATED COUNT 358 10*3/uL Normal 150-400 [facility] Comment on above: Performed By: #### L [id number] ####[facility] ([facility])[address] [place] [address] 30on 03-02-2025 30 Normal [facility] ANTI-XA (HEPARIN LEVEL)on HEPARIN UNFRACTIONATED (U/ML) IN PPP BY CHROMOGENIC METHOD 0.18 IU/mL Low 0.3-0.7 [facility] Comment on above: Result Comment: Linda roxaban and Apixaban will interfere with the anti Xa assay used to monitor UFH and LMWH. Performed By: #### L [id number] ####[facility] ([facility])[address] [place] [address] APTTon 03-02-2025 ACTIVATED PARTIAL THROMBOPLASTIN TIME IN PPP BY COAGULATION ASSAY 39.7 Seconds High 25.0-35.0 [facility] Comment on above: Order Comment: Basel ine aPTT before initiating heparin infusion. Result Comment: Clin ical significance of the APTT is questionable in the presence of heparin. Performed By: #### L [id number] ####[facility] ([facility])[address] [place] [address] COMPREHENSIVE METABOLIC PANE Rogelio 03-02-2025 Albumin [Mass/Vol] 3.0 g/dL Low 3.5-5.7 [facility] Comment on above: Performed By: #### L [id number] ####[facility] ([facility])[address] [place] [address] ALP [Catalytic activity/Vol] 59 U/L Normal 34-104 [facility] Comment on above: Performed By: #### L [id number] ####[facility] ([facility])[address] [place] [address] ALT [Catalytic activity/Vol] 20 U/L Normal 7-52 [facility] Comment on above: Performed By: #### L [id number] ####[facility] ([facility])[address] [place] [address] Anion gap [Moles/Vol] 7 mmol/L Normal 7-20 [facility] Comment on above: Performed By: #### L [id number] ####[facility] ([facility])[address] [place] [address] AST [Catalytic activity/Vol] 21 U/L Normal 13-39 [facility] Comment on above: Performed By: #### L [id number] ####[facility] ([facility])[address] [place] [address] Bilirubin [Mass/Vol] 4.3 mg/dL High 0.3-1.0 [facility] Comment on above: Performed By: #### L [id number] ####[facility] ([facility])[address] [place] [address] Calcium [Mass/Vol] 8.1 mg/dL Low 8.6-10.3 [facility] Comment on above: Performed By: #### L [id number] ####[facility] ([facility])[address] [place] [address] Chloride [Moles/Vol] 103 mmol/L Normal 98-107 [facility] Comment on above: Performed By: #### L [id number] ####[facility] ([facility])[address] [place] [address] CO2 [Moles/Vol] 25 mmol/L Normal 21-31 [facility] Comment on above: Performed By: #### L [id number] ####[facility] ([facility])[address] [place] [address] Creatinine [Mass/Vol] 0.68 mg/dL Low 0.70-1.30 [facility] Comment on above: Performed By: #### L [id number] ####[facility] ([facility])[address] [place] [address] GLOMERULAR FILTRATION RATE ML/MIN/1.73 SQ M.PREDICTED 107.7 mL/min/1.73m*2 Normal >60.0 [facility] Comment on above: Result Comment: The [facility]???s estimated glomerular filtration rate (eGFR) will no [...] of individuals. Performed By: #### L [id number] ####[facility] ([facility])[address] [place] [address] Glucose [Mass/Vol] 91 mg/dL Normal 70-100 [facility] Comment on above: Performed By: #### L [id number] ####[facility] ([facility])[address] [place] [address] Potassium [Moles/Vol] 4.0 mmol/L Normal 3.5-5.1 [facility] Comment on above: Performed By: #### L [id number] ####[facility] ([facility])[address] [place] [address] Protein [Mass/Vol] 5.3 g/dL Low 6.0-8.3 [facility] Comment on above: Performed By: #### L [id number] ####[facility] ([facility])[address] [place] [address] Sodium [Moles/Vol] 131 mmol/L Low 136-145 [facility] Comment on above: Performed By: #### L [id number] ####[facility] ([facility])[address] [place] [address] Urea nitrogen [Mass/Vol] 13 mg/dL Normal 7-25 [facility] Comment on above: Performed By: #### L [id number] ####[facility] ([facility])[address] [place] [address] UREA NITROGEN/CREATININE (MASS RATIO) IN SER/PLAS 19.1 Normal [facility] Comment on above: Performed By: #### L [id number] ####[facility] ([facility])[address] [place] [address] MAGNESIUMon 03-02-2025 Magnesium [Mass/Vol] 2.0 mg/dL Normal 1.9-2.7 [facility] Comment on above: Performed By: #### L [id number] ####[facility] ([facility])[address] [place] [address] PHOSPHORUSon 03-02-2025 Magnesium [Mass/Vol] 2.5 mg/dL Normal 2.5-5.0 [facility] Comment on above: Performed By: #### L [id number] ####[facility] ([facility])[address] [place] [address] PLATELET COUNTon 03-02-2025 PLATELETS (10*3/UL) IN BLOOD AUTOMATED COUNT 366 10*3/uL Normal 150-400 [facility] Comment on above: Performed By: #### L [id number] ####[facility] ([facility])[address] [place] [address] URINALYSISon 03-02-2025 BILIRUBIN, TOTAL PRESENCE IN URINE Negative Normal Negative [facility] Comment on above: Order Comment: Micro scopics not performed on urines with negative chemical reactions unless requested on original order. Performed By: #### L [id number] ####[facility] ([facility])[address] [place] [address] Clarity (U) Clear Normal Clear [facility] Comment on above: Order Comment: Micro scopics not performed on urines with negative chemical reactions unless requested on original order. Performed By: #### L [id number] ####[facility] ([facility])[address] [place] [address] Color (U) Yellow Normal Colorless, Yellow, Light-Yellow [facility] Comment on above: Order Comment: Micro scopics not performed on urines with negative chemical reactions unless requested on original order. Performed By: #### L [id number] ####[facility] ([facility])[address] [place] [address] GLUCOSE (MG/DL) IN URINE Normal Normal Normal [facility] Comment on above: Order Comment: Micro scopics not performed on urines with negative chemical reactions unless requested on original order. Performed By: #### L [id number] ####[facility] ([facility])[address] [place] [address] HEMOGLOBIN PRESENCE IN URINE Negative Normal Negative [facility] Comment on above: Order Comment: Micro scopics not performed on urines with negative chemical reactions unless requested on original order. Performed By: #### L [id number] ####[facility] ([facility])[address] [place] [address] Ketones Ql (U) Negative Normal Negative [facility] Comment on above: Order Comment: Micro scopics not performed on urines with negative chemical reactions unless requested on original order. Performed By: #### L [id number] ####[facility] ([facility])[address] [place] [address] LEUKOCYTE ESTERASE PRESENCE IN URINE BY TEST STRIP Negative Normal Negative [facility] Comment on above: Order Comment: Micro scopics not performed on urines with negative chemical reactions unless requested on original order. Performed By: #### L [id number] ####[facility] ([facility])[address] [place] [address] NITRITE PRESENCE IN URINE Negative Normal Negative [facility] Comment on above: Order Comment: Micro scopics not performed on urines with negative chemical reactions unless requested on original order. Performed By: #### L [id number] ####[facility] ([facility])[address] [place] [address] pH (U) 6.5 [pH] Normal 5.0-8.0 [facility] Comment on above: Order Comment: Micro scopics not performed on urines with negative chemical reactions unless requested on original order. Performed By: #### L [id number] ####[facility] ([facility])[address] [place] [address] Protein (U) [Mass/Vol] Negative Normal Negative [facility] Comment on above: Order Comment: Micro scopics not performed on urines with negative chemical reactions unless requested on original order. Performed By: #### L [id number] ####[facility] ([facility])[address] [place] [address] Specific gravity (U) [Rel density] 1.016 Normal 1.010-1.030 [facility] Comment on above: Order Comment: Micro scopics not performed on urines with negative chemical reactions unless requested on original order. Performed By: #### L [id number] ####[facility] ([facility])[address] [place] [address] UROBILINOGEN (MG/DL) IN URINE >=8.0 Abnormal Normal [facility] Comment on above: Order Comment: Micro scopics not performed on urines with negative chemical reactions unless requested on original order. Performed By: #### L [id number] ####[facility] ([facility])[address] [place] [address] 30on 03-01-2025 30 The patient is Moderately Stable - Low risk of patient condition declining or worsening The patient's goals for the shift include comfort, rest. The clinical goals for the shift include stable vitals, safety. Normal [facility] 30 Normal [facility] COMPREHENSIVE METABOLIC PANE Rogelio 03-01-2025 Albumin [Mass/Vol] 2.9 g/dL Low 3.5-5.7 [facility] Comment on above: Performed By: #### L [id number] ####[facility] ([facility])[address] [place] [address] ALP [Catalytic activity/Vol] 58 U/L Normal 34-104 [facility] Comment on above: Performed By: #### L [id number] ####[facility] ([facility])[address] [place] [address] ALT [Catalytic activity/Vol] 17 U/L Normal 7-52 [facility] Comment on above: Performed By: #### L [id number] ####[facility] ([facility])[address] [place] [address] Anion gap [Moles/Vol] 9 mmol/L Normal 7-20 [facility] Comment on above: Performed By: #### L [id number] ####[facility] ([facility])[address] [place] [address] AST [Catalytic activity/Vol] 17 U/L Normal 13-39 [facility] Comment on above: Performed By: #### L [id number] ####[facility] ([facility])[address] [place] [address] Bilirubin [Mass/Vol] 3.6 mg/dL High 0.3-1.0 [facility] Comment on above: Performed By: #### L [id number] ####[facility] ([facility])[address] [place] [address] Calcium [Mass/Vol] 7.7 mg/dL Low 8.6-10.3 [facility] Comment on above: Performed By: #### L [id number] ####[facility] ([facility])[address] [place] [address] Chloride [Moles/Vol] 103 mmol/L Normal 98-107 [facility] Comment on above: Performed By: #### L [id number] ####[facility] ([facility])[address] [place] [address] CO2 [Moles/Vol] 22 mmol/L Normal 21-31 [facility] Comment on above: Performed By: #### L [id number] ####[facility] ([facility])[address] [place] [address] Creatinine [Mass/Vol] 0.67 mg/dL Low 0.70-1.30 [facility] Comment on above: Performed By: #### L [id number] ####[facility] ([facility])[address] [place] [address] GLOMERULAR FILTRATION RATE ML/MIN/1.73 SQ M.PREDICTED 108.2 mL/min/1.73m*2 Normal >60.0 [facility] Comment on above: Result Comment: [facility]???s estimated glomerular filtration rate (eGFR) will no [...] of individuals. Performed By: #### L [id number] ####[facility] ([facility])[address] [facility] [address] Glucose [Mass/Vol] 94 mg/dL Normal 70-100 [facility] Comment on above: Performed By: #### L [id number] ####[facility] ([facility])[address] [facility] [address] Potassium [Moles/Vol] 3.9 mmol/L Normal 3.5-5.1 [facility] Comment on above: Performed By: #### L [id number] ####[facility] ([facility])[address] [address] Protein [Mass/Vol] 5.1 g/dL Low 6.0-8.3 [facility] Comment on above: Performed By: #### L [id number] ####[facility] ([facility])[address] [facility] [address] Sodium [Moles/Vol] 130 mmol/L Low 136-145 [facility] Comment on above: Performed By: #### L [id number] ####[facility] ([facility])[address] [place] [address] Urea nitrogen [Mass/Vol] 14 mg/dL Normal 7-25 [facility] Comment on above: Performed By: #### L [id number] ####[facility] ([facility])[address] [place] [address] UREA NITROGEN/CREATININE (MASS RATIO) IN SER/PLAS 20.9 Normal [facility] Comment on above: Performed By: #### L [id number] ####[facility] ([facility])[place] [address] DIGOXIN LEVELon 03-01-2025 DIGOXIN (NG/ML) IN SER/PLAS <0.3 Low 0.7-2 [facility] Comment on above: Performed By: #### L [id number] ####[facility] ([facility])[place] [address] MAGNESIUMon 03-01-2025 Magnesium [Mass/Vol] 2.0 mg/dL Normal 1.9-2.7 [facility] Comment on above: Performed By: #### L [id number] ####[facility] ([facility])[place] [address] NURSNOTEon 03-01-2025 NURSNOTE Normal [facility] PHOSPHORUSon 03-01-2025 Magnesium [Mass/Vol] 2.4 mg/dL Low 2.5-5.0 [facility] Comment on above: Performed By: #### L [id number] ####[facility] ([facility])[place] [address] 30on 02-28-2025 30 Normal [facility] CBCon 02-28-2025 Erythrocyte distribution width (RBC) [Ratio] 17.2 % High 11.5-15.0 [facility] Comment on above: Performed By: #### L [id number] ####[facility] ([facility])[place] [address] ERYTHROCYTE MEAN CORPUSCULAR HEMOGLOBIN CONCENTRATION (G/DL) BY AUTOMATED 34.2 g/dL Normal 32.0-35.[address] [facility] Comment on above: Performed By: #### L [id number] ####[facility] ([facility])[address] [place] [address] Hematocrit (Bld) [Volume fraction] 24.3 % Low 39.0-50.0 [facility] Comment on above: Performed By: #### L [id number] ####[facility] ([facility] [place])[address] [place] [address] Hemoglobin (Bld) [Mass/Vol] 8.3 g/dL Low 13.0-17.0 [facility] Comment on above: Performed By: #### L [id number] ####[facility] ([facility] [place])[address] [place] [address] MCH (RBC) [Entitic mass] 30.7 pg Normal 27.0-33.0 [facility] Comment on above: Performed By: #### L [id number] ####[facility] ([facility])[address] [place] [address] MCV (RBC) [Entitic vol] 90.0 fL Normal 82.0-98.0 [facility] Comment on above: Performed By: #### L [id number] ####[facility] ([facility])[address] [place] [address] PLATELETS (10*3/UL) IN BLOOD AUTOMATED COUNT 255 10*3/uL Normal 150-400 [facility] Comment on above: Performed By: #### L [id number] ####[facility] ([facility])[address] [place] [address] RBC (Bld) [#/Vol] 2.70 10*6/uL Low 4.20-5.70 [facility] Comment on above: Performed By: #### L [id number] ####[facility] ([facility])[address] [place] [address] WBC (Bld) [#/Vol] 8.84 10*3/uL Normal 4.00-10.60 [facility] Comment on above: Performed By: #### L [id number] ####[facility] ([facility])[address] [place] [address] COMPREHENSIVE METABOLIC PANE Rogelio 02-28-2025 Albumin [Mass/Vol] 3.0 g/dL Low 3.5-5.7 [facility] Comment on above: Performed By: #### L [id number] ####[facility] ([facility])[address] [place] [address] ALP [Catalytic activity/Vol] 60 U/L Normal 34-104 [facility] Comment on above: Performed By: #### L [id number] ####[facility] ([facility] [place])[address] [place] [address] ALT [Catalytic activity/Vol] 20 U/L Normal 7-52 [facility] Comment on above: Performed By: #### L [id number] ####[facility] ([facility])[address] [place] [address] Anion gap [Moles/Vol] 10 mmol/L Normal 7-20 [facility] Comment on above: Performed By: #### L [id number] ####[facility] ([facility])[address] [place] [address] AST [Catalytic activity/Vol] 14 U/L Normal 13-39 [facility] Comment on above: Performed By: #### L [id number] ####[facility] ([facility])[address] [place] [address] Bilirubin [Mass/Vol] 3.8 mg/dL High 0.3-1.0 [facility] Comment on above: Performed By: #### L [id number] ####[facility] ([facility])[address] [place] [address] Calcium [Mass/Vol] 7.9 mg/dL Low 8.6-10.3 [facility] Comment on above: Performed By: #### L [id number] ####[facility] ([facility])[address] [place] [address] Chloride [Moles/Vol] 102 mmol/L Normal 98-107 [facility] Comment on above: Performed By: #### L [id number] ####[facility] ([facility])[address] [place] [address] CO2 [Moles/Vol] 23 mmol/L Normal 21-31 [facility] Comment on above: Performed By: #### L [id number] ####[facility] ([facility] [place] [place] [address] Creatinine [Mass/Vol] 0.75 mg/dL Normal 0.70-1.30 [facility] Comment on above: Performed By: #### L [id number] ####[facility] ([facility])[address] [place] [address] GLOMERULAR FILTRATION RATE ML/MIN/1.73 SQ M.PREDICTED 104.6 mL/min/1.73m*2 Normal >60.0 [facility] Comment on above: Result Comment: [facility]???s estimated glomerular filtration rate (eGFR) will no [...] of individuals. Performed By: #### L [id number] ####[facility] ([facility])[address] [place] [address] Glucose [Mass/Vol] 98 mg/dL Normal 70-100 [facility] Comment on above: Performed By: #### L [id number] ####[facility] ([facility])[address] [place] [address] Potassium [Moles/Vol] 4.0 mmol/L Normal 3.5-5.1 [facility] Comment on above: Performed By: #### L [id number] ####[facility] ([facility])[address] [place] [address] Protein [Mass/Vol] 5.1 g/dL Low 6.0-8.3 [facility] Comment on above: Performed By: #### L [id number] ####[facility] ([facility])[address] [place] [address] Sodium [Moles/Vol] 131 mmol/L Low 136-[address] [facility] Comment on above: Performed By: #### L [id number] ####[facility] ([facility])[address] [place] [address] Urea nitrogen [Mass/Vol] 16 mg/dL Normal 7-25 [facility] Comment on above: Performed By: #### L [id number] ####[facility] ([facility] [place])[address] [place] [address] UREA NITROGEN/CREATININE (MASS RATIO) IN SER/PLAS 21.3 Normal [facility] Comment on above: Performed By: #### L [id number] ####[facility] ([facility])[address] [place] [address] MAGNESIUMon 02-28-2025 Magnesium [Mass/Vol] 2.0 mg/dL Low 2.5-5.0 [facility] Comment on above: Performed By: #### L [id number] ####[facility] ([facility])[address] [place] [address] Performed By: #### L [id number] ####[facility] ([facility])[address] [place] [address] NURSNOTEon 02-28-2025 NURSNOTE Normal [facility] 30on 02-27-2025 30 Normal [facility] CBCon 02-27-2025 Erythrocyte distribution width (RBC) [Ratio] 17.2 % High 11.5-15.0 [facility] Comment on above: Performed By: #### L [id number] ####[facility] ([facility])[address] [place] [address] ERYTHROCYTE MEAN CORPUSCULAR HEMOGLOBIN CONCENTRATION (G/DL) BY AUTOMATED 35.5 g/dL High 32.0-35.[address] [facility] Comment on above: Performed By: #### L [id number] ####[facility] ([facility])[address] [place] [address] Hematocrit (Bld) [Volume fraction] 25.1 % Low 39.0-50.0 [facility] Comment on above: Performed By: #### L [id number] ####[facility] ([facility])[address] [place] [address] Hemoglobin (Bld) [Mass/Vol] 8.9 g/dL Low 13.0-17.0 [facility] Comment on above: Performed By: #### L [id number] ####[facility] ([facility])[address] [place] [address] MCH (RBC) [Entitic mass] 31.3 pg Normal 27.0-33.0 [facility] Comment on above: Performed By: #### L [id number] ####[facility] ([facility])[address] [place] [address] MCV (RBC) [Entitic vol] 88.4 fL Normal 82.0-98.0 [facility] Comment on above: Performed By: #### L [id number] ####[facility] ([facility])[address] [place] [address] PLATELETS (10*3/UL) IN BLOOD AUTOMATED COUNT 261 10*3/uL Normal 150-400 [facility] Comment on above: Performed By: #### L [id number] ####[facility] ([facility])[address] [place] [address] RBC (Bld) [#/Vol] 2.84 10*6/uL Low 4.20-5.70 [facility] Comment on above: Performed By: #### L [id number] ####[facility] ([facility])[address] [place], [place] [address] WBC (Bld) [#/Vol] 9.07 10*3/uL Normal 4.00-10.60 [facility] Comment on above: Performed By: #### L [id number] ####[facility] ([facility])[address] [place] [address] Erythrocyte distribution width (RBC) [Ratio] 17.2 % High 11.5-15.0 [facility] Comment on above: Performed By: #### L [id number] ####[facility] ([facility])[address] [place] [address] ERYTHROCYTE MEAN CORPUSCULAR HEMOGLOBIN CONCENTRATION (G/DL) BY AUTOMATED 35.0 g/dL Normal 32.0-35.[address] [facility] Comment on above: Performed By: #### L [id number] ####[facility] ([facility])[address] [place] [address] Hematocrit (Bld) [Volume fraction] 27.4 % Low 39.0-50.0 [facility] Comment on above: Performed By: #### L [id number] ####[facility] ([facility])[address] [place], [place] [address] Hemoglobin (Bld) [Mass/Vol] 9.6 g/dL Low 13.0-17.0 [facility] Comment on above: Performed By: #### L [id number] ####[facility] ([facility])[address] [place], [place] [address] MCH (RBC) [Entitic mass] 30.8 pg Normal 27.0-33.0 [facility] Comment on above: Performed By: #### L [id number] ####[facility] ([facility])[address] [place], [place] [address] MCV (RBC) [Entitic vol] 87.8 fL Normal 82.0-98.0 [facility] Comment on above: Performed By: #### L [id number] ####[facility] ([facility])[address] [place] [address] PLATELETS (10*3/UL) IN BLOOD AUTOMATED COUNT 284 10*3/uL Normal 150-400 [facility] Comment on above: Performed By: #### L [id number] ####[facility] ([facility])[address] [place], [place] [address] RBC (Bld) [#/Vol] 3.12 10*6/uL Low 4.20-5.70 [facility] Comment on above: Performed By: #### L [id number] ####[facility] ([facility])[address] [place] [address] WBC (Bld) [#/Vol] 10.96 10*3/uL High 4.00-10.60 [facility] Comment on above: Performed By: #### L [id number] ####[facility] ([facility])[address] [place] [address] Erythrocyte distribution width (RBC) [Ratio] 17.3 % High 11.5-15.0 [facility] Comment on above: Performed By: #### L [id number] ####[facility] ([facility])[address] [place] [address] ERYTHROCYTE MEAN CORPUSCULAR HEMOGLOBIN CONCENTRATION (G/DL) BY AUTOMATED 34.4 g/dL Normal 32.0-35.[address] [facility] Comment on above: Performed By: #### L [id number] ####[facility] ([facility] [place])[address] [place] [address] Hematocrit (Bld) [Volume fraction] 24.7 % Low 39.0-50.0 [facility] Comment on above: Performed By: #### L [id number] ####[facility] ([facility])[address] [place] [address] Hemoglobin (Bld) [Mass/Vol] 8.5 g/dL Low 13.0-17.0 [facility] Comment on above: Performed By: #### L [id number] ####[facility] ([facility])[address] [place] [address] MCH (RBC) [Entitic mass] 30.9 pg Normal 27.0-33.0 [facility] Comment on above: Performed By: #### L [id number] ####[facility] ([facility])[address] [place] [address] MCV (RBC) [Entitic vol] 89.8 fL Normal 82.0-98.0 [facility] Comment on above: Performed By: #### L [id number] ####[facility] ([facility])[address] [place] [address] PLATELETS (10*3/UL) IN BLOOD AUTOMATED COUNT 233 10*3/uL Normal 150-400 [facility] Comment on above: Performed By: #### L [id number] ####[facility] ([facility])[address] [place] [address] RBC (Bld) [#/Vol] 2.75 10*6/uL Low 4.20-5.70 [facility] Comment on above: Performed By: #### L [id number] ####[facility] ([facility])[address] [place] [address] WBC (Bld) [#/Vol] 8.02 10*3/uL Normal 4.00-10.60 [facility] Comment on above: Performed By: #### L [id number] ####[facility] ([facility])[address] [place] [address] Erythrocyte distribution width (RBC) [Ratio] 17.5 % High 11.5-15.0 [facility] Comment on above: Performed By: #### L [id number] ####[facility] ([facility])[address] [place] [address] ERYTHROCYTE MEAN CORPUSCULAR HEMOGLOBIN CONCENTRATION (G/DL) BY AUTOMATED 34.5 g/dL Normal 32.0-35.[address] [facility] Comment on above: Performed By: #### L [id number] ####[facility] ([facility])[address] [place] [address] Hematocrit (Bld) [Volume fraction] 23.8 % Low 39.0-50.0 [facility] Comment on above: Performed By: #### L [id number] ####[facility] ([facility])[address] [place], [place] [address] Hemoglobin (Bld) [Mass/Vol] 8.2 g/dL Low 13.0-17.0 [facility] Comment on above: Performed By: #### L [id number] ####[facility] ([facility])[address] [place], [place] [address] MCH (RBC) [Entitic mass] 30.7 pg Normal 27.0-33.0 [facility] Comment on above: Performed By: #### L [id number] ####[facility] ([facility])[address] [place] [address] MCV (RBC) [Entitic vol] 89.1 fL Normal 82.0-98.0 [facility] Comment on above: Performed By: #### L [id number] ####[facility] ([facility])[address] [place] [address] PLATELETS (10*3/UL) IN BLOOD AUTOMATED COUNT 159 10*3/uL Normal 150-400 [facility] Comment on above: Performed By: #### L [id number] ####[facility] ([facility])[address] [place] [address] RBC (Bld) [#/Vol] 2.67 10*6/uL Low 4.20-5.70 [facility] Comment on above: Performed By: #### L [id number] ####[facility] ([facility])[address] [place] [address] WBC (Bld) [#/Vol] 8.06 10*3/uL Normal 4.00-10.60 [facility] Comment on above: Performed By: #### L [id number] ####[facility] ([facility])[address] [place] [address] COMPREHENSIVE METABOLIC PANE Rogelio 02-27-2025 Albumin [Mass/Vol] 2.9 g/dL Low 3.5-5.7 [facility] Comment on above: Performed By: #### L [id number] ####[facility] ([facility])[address] [place] [address] ALP [Catalytic activity/Vol] 54 U/L Normal 34-104 [facility] Comment on above: Performed By: #### L [id number] ####[facility] ([facility])[address] [place] [address] ALT [Catalytic activity/Vol] 21 U/L Normal 7-52 [facility] Comment on above: Performed By: #### L [id number] ####[facility] ([facility])[address] [place] [address] Anion gap [Moles/Vol] 8 mmol/L Normal 7-20 [facility] Comment on above: Performed By: #### L [id number] ####[facility] ([facility])[address] [place] [address] AST [Catalytic activity/Vol] 16 U/L Normal 13-39 [facility] Comment on above: Performed By: #### L [id number] ####[facility] ([facility])[address] [place] [address] Bilirubin [Mass/Vol] 3.4 mg/dL High 0.3-1.0 [facility] Comment on above: Performed By: #### L [id number] ####[facility] ([facility])[address] [place] [address] Calcium [Mass/Vol] 7.8 mg/dL Low 8.6-10.3 [facility] Comment on above: Performed By: #### L [id number] ####[facility] ([facility])[address] [place] [address] Chloride [Moles/Vol] 102 mmol/L Normal 98-107 [facility] Comment on above: Performed By: #### L [id number] ####[facility] ([facility])[address] [place] [address] CO2 [Moles/Vol] 25 mmol/L Normal 21-31 [facility] Comment on above: Performed By: #### L [id number] ####[facility] ([facility])[address] [place] [address] Creatinine [Mass/Vol] 0.64 mg/dL Low 0.70-1.30 [facility] Comment on above: Performed By: #### L [id number] ####[facility] ([facility])[address] [place] [address] GLOMERULAR FILTRATION RATE ML/MIN/1.73 SQ M.PREDICTED 109.7 mL/min/1.73m*2 Normal >60.0 [facility] Comment on above: Result Comment: [facility]???s estimated glomerular filtration rate (eGFR) will no [...] of individuals. Performed By: #### L [id number] ####[facility] ([facility])[address] [facility] [place] [address] Glucose [Mass/Vol] 100 mg/dL Normal 70-100 [facility] Comment on above: Performed By: #### L [id number] ####[facility] ([facility])[address] [facility] [address] Potassium [Moles/Vol] 4.1 mmol/L Normal 3.5-5.1 [facility] Comment on above: Performed By: #### L [id number] ####[facility] ([facility])[address] [facility] [place] [address] Protein [Mass/Vol] 4.9 g/dL Low 6.0-8.3 [facility] Comment on above: Performed By: #### L [id number] ####[facility] ([facility])[address] [facility] [address] Sodium [Moles/Vol] 131 mmol/L Low 136-145 [facility] Comment on above: Performed By: #### L [id number] ####[facility] ([facility])[address] [facility] [place] [address] Urea nitrogen [Mass/Vol] 17 mg/dL Normal 7-25 [facility] Comment on above: Performed By: #### L [id number] ####[facility] ([facility])[address] [place] [address] UREA NITROGEN/CREATININE (MASS RATIO) IN SER/PLAS 26.6 Normal [facility] Comment on above: Performed By: #### L [id number] ####[facility] ([facility])[address] [place] [address] MAGNESIUMon 02-27-2025 Magnesium [Mass/Vol] 2.1 mg/dL Normal 1.9-2.7 [facility] Comment on above: Performed By: #### L [id number] ####[facility] ([facility] [place])[address] [place] [address] NURSNOTEon 02-27-2025 NURSNOTE Normal [facility] PHOSPHORUSon 02-27-2025 Magnesium [Mass/Vol] 2.0 mg/dL Low 2.5-5.0 [facility] Comment on above: Performed By: #### L [id number] ####[facility] ([facility])[address] [place] [address] 30on 02-26-2025 30 Normal [facility] CBCon 02-26-2025 Erythrocyte distribution width (RBC) [Ratio] 17.5 % High 11.5-15.0 [facility] Comment on above: Performed By: #### L [id number] ####[facility] ([facility])[address] [place] [address] ERYTHROCYTE MEAN CORPUSCULAR HEMOGLOBIN CONCENTRATION (G/DL) BY AUTOMATED 34.6 g/dL Normal 32.0-35.[address] [facility] Comment on above: Performed By: #### L [id number] ####[facility] ([facility] [place])[address] [place] [address] Hematocrit (Bld) [Volume fraction] 24.6 % Low 39.0-50.0 [facility] Comment on above: Performed By: #### L [id number] ####[facility] ([facility])[address] [place] [address] Hemoglobin (Bld) [Mass/Vol] 8.5 g/dL Low 13.0-17.0 [facility] Comment on above: Performed By: #### L [id number] ####[facility] ([facility])[address] [place] [address] MCH (RBC) [Entitic mass] 31.1 pg Normal 27.0-33.0 [facility] Comment on above: Performed By: #### L [id number] ####[facility] ([facility] [place])[address] [place] [address] MCV (RBC) [Entitic vol] 90.1 fL Normal 82.0-98.0 [facility] Comment on above: Performed By: #### L [id number] ####[facility] ([facility] [place])[address] [place], [place] [address] PLATELETS (10*3/UL) IN BLOOD AUTOMATED COUNT 225 10*3/uL Normal 150-400 [facility] Comment on above: Performed By: #### L [id number] ####[facility] ([facility] [place])[address] [place] [address] RBC (Bld) [#/Vol] 2.73 10*6/uL Low 4.20-5.70 [facility] Comment on above: Performed By: #### L [id number] ####[facility] ([facility])[address] [place] [address] WBC (Bld) [#/Vol] 8.18 10*3/uL Normal 4.00-10.60 [facility] Comment on above: Performed By: #### L [id number] ####[facility] ([facility])[address] [place] [address] Erythrocyte distribution width (RBC) [Ratio] 17.6 % High 11.5-15.0 [facility] Comment on above: Performed By: #### L [id number] ####[facility] ([facility])[address] [place] [address] ERYTHROCYTE MEAN CORPUSCULAR HEMOGLOBIN CONCENTRATION (G/DL) BY AUTOMATED 34.0 g/dL Normal 32.0-35.[address] [facility] Comment on above: Performed By: #### L [id number] ####[facility] ([facility])[address] [place] [address] Hematocrit (Bld) [Volume fraction] 25.0 % Low 39.0-50.0 [facility] Comment on above: Performed By: #### L [id number] ####[facility] ([facility])[address] [place] [address] Hemoglobin (Bld) [Mass/Vol] 8.5 g/dL Low 13.0-17.0 [facility] Comment on above: Performed By: #### L [id number] ####[facility] ([facility])[address] [place] [address] MCH (RBC) [Entitic mass] 30.2 pg Normal 27.0-33.0 [facility] Comment on above: Performed By: #### L [id number] ####[facility] ([facility])[address] [place] [address] MCV (RBC) [Entitic vol] 89.0 fL Normal 82.0-98.0 [facility] Comment on above: Performed By: #### L [id number] ####[facility] ([facility])[address] [place] [address] PLATELETS (10*3/UL) IN BLOOD AUTOMATED COUNT 219 10*3/uL Normal 150-400 [facility] Comment on above: Performed By: #### L [id number] ####[facility] ([facility])[address] [place] [address] RBC (Bld) [#/Vol] 2.81 10*6/uL Low 4.20-5.70 [facility] Comment on above: Performed By: #### L [id number] ####[facility] ([facility])[address] [place] [address] WBC (Bld) [#/Vol] 8.65 10*3/uL Normal 4.00-10.60 [facility] Comment on above: Performed By: #### L [id number] ####[facility] ([facility])[address] [place] [address] Erythrocyte distribution width (RBC) [Ratio] 17.8 % High 11.5-15.0 [facility] Comment on above: Performed By: #### L [id number] ####[facility] ([facility] [place])[address] [place] [address] ERYTHROCYTE MEAN CORPUSCULAR HEMOGLOBIN CONCENTRATION (G/DL) BY AUTOMATED 35.0 g/dL Normal 32.0-35.[address] [facility] Comment on above: Performed By: #### L [id number] ####[facility] ([facility])[address] [place] [address] Hematocrit (Bld) [Volume fraction] 24.6 % Low 39.0-50.0 [facility] Comment on above: Performed By: #### L [id number] ####[facility] ([facility])[address] [place] [address] Hemoglobin (Bld) [Mass/Vol] 8.6 g/dL Low 13.0-17.0 [facility] Comment on above: Performed By: #### L [id number] ####[facility] ([facility])[address] [place] [address] MCH (RBC) [Entitic mass] 31.4 pg Normal 27.0-33.0 [facility] Comment on above: Performed By: #### L [id number] ####[facility] ([facility] [place])[address] [place] [address] MCV (RBC) [Entitic vol] 89.8 fL Normal 82.0-98.0 [facility] Comment on above: Performed By: #### L [id number] ####[facility] ([facility] [place])[address] [place] [address] PLATELETS (10*3/UL) IN BLOOD AUTOMATED COUNT 205 10*3/uL Normal 150-400 [facility] Comment on above: Performed By: #### L [id number] ####[facility] ([facility] [place])[address] [place] [address] RBC (Bld) [#/Vol] 2.74 10*6/uL Low 4.20-5.70 [facility] Comment on above: Performed By: #### L [id number] ####[facility] ([facility])[address] [place] [address] WBC (Bld) [#/Vol] 7.78 10*3/uL Normal 4.00-10.60 [facility] Comment on above: Performed By: #### L [id number] ####[facility] ([facility] [place] [place] [address] Erythrocyte distribution width (RBC) [Ratio] 17.8 % High 11.5-15.0 [facility] Comment on above: Performed By: #### L [id number] ####[facility] ([facility] [place])[address] [place] [address] ERYTHROCYTE MEAN CORPUSCULAR HEMOGLOBIN CONCENTRATION (G/DL) BY AUTOMATED 34.1 g/dL Normal 32.0-35.[address] [facility] Comment on above: Performed By: #### L [id number] ####[facility] ([facility])[address] [place] [address] Hematocrit (Bld) [Volume fraction] 23.2 % Low 39.0-50.0 [facility] Comment on above: Performed By: #### L [id number] ####[facility] ([facility])[address] [address] Hemoglobin (Bld) [Mass/Vol] 7.9 g/dL Low 13.0-17.0 [facility] Comment on above: Performed By: #### L [id number] ####[facility] ([facility])[address] [place] [address] MCH (RBC) [Entitic mass] 30.6 pg Normal 27.0-33.0 [facility] Comment on above: Performed By: #### L [id number] ####[facility] ([facility])[address] [address] MCV (RBC) [Entitic vol] 89.9 fL Normal 82.0-98.0 [facility] Comment on above: Performed By: #### L [id number] ####[facility] ([facility])[address] [place] [address] PLATELETS (10*3/UL) IN BLOOD AUTOMATED COUNT 199 10*3/uL Normal 150-400 [facility] Comment on above: Performed By: #### L [id number] ####[facility] ([facility])[address] [place] [address] RBC (Bld) [#/Vol] 2.58 10*6/uL Low 4.20-5.70 [facility] Comment on above: Performed By: #### L [id number] ####[facility] ([facility])[address] [place] [address] WBC (Bld) [#/Vol] 7.09 10*3/uL Normal 4.00-10.60 [facility] Comment on above: Performed By: #### L [id number] ####[facility] ([facility])[address] [place] [address] COMPREHENSIVE METABOLIC PANE Rogelio 02-26-2025 Albumin [Mass/Vol] 2.9 g/dL Low 3.5-5.7 [facility] Comment on above: Performed By: #### L [id number] ####[facility] ([facility])[address] [place] [address] ALP [Catalytic activity/Vol] 54 U/L Normal 34-104 [facility] Comment on above: Performed By: #### L [id number] ####[facility] ([facility])[address] [place] [address] ALT [Catalytic activity/Vol] 24 U/L Normal 7-52 [facility] Comment on above: Performed By: #### L [id number] ####[facility] ([facility])[address] [place] [address] Anion gap [Moles/Vol] 7 mmol/L Normal 7-20 [facility] Comment on above: Performed By: #### L [id number] ####[facility] ([facility])[address] [place] [address] AST [Catalytic activity/Vol] 16 U/L Normal 13-39 [facility] Comment on above: Performed By: #### L [id number] ####[facility] ([facility] [place])[address] [place] [address] Bilirubin [Mass/Vol] 3.5 mg/dL High 0.3-1.0 [facility] Comment on above: Performed By: #### L [id number] ####[facility] ([facility] [place])[address] [place] [address] Calcium [Mass/Vol] 7.9 mg/dL Low 8.6-10.3 [facility] Comment on above: Performed By: #### L [id number] ####[facility] ([facility] [place])[address] [place] [address] Chloride [Moles/Vol] 103 mmol/L Normal 98-107 [facility] Comment on above: Performed By: #### L [id number] ####[facility] ([facility])[address] [place] [address] CO2 [Moles/Vol] 27 mmol/L Normal 21-31 [facility] Comment on above: Performed By: #### L [id number] ####[facility] ([facility] [place])[address] [place] [address] Creatinine [Mass/Vol] 0.80 mg/dL Normal 0.70-1.30 [facility] Comment on above: Performed By: #### L [id number] ####[facility] ([facility] [place])[address] [place] [address] GLOMERULAR FILTRATION RATE ML/MIN/1.73 SQ M.PREDICTED 102.6 mL/min/1.73m*2 Normal >60.0 [facility] Comment on above: Result Comment: [facility]???s estimated glomerular filtration rate (eGFR) will no [...] of individuals. Performed By: #### L [id number] ####[facility] ([facility])[address] [place] [address] Glucose [Mass/Vol] 94 mg/dL Normal 70-100 [facility] Comment on above: Performed By: #### L [id number] ####[facility] ([facility])[address] [place] [address] Potassium [Moles/Vol] 3.9 mmol/L Normal 3.5-5.1 [facility] Comment on above: Performed By: #### L [id number] ####[facility] ([facility])[address] [place] [address] Protein [Mass/Vol] 4.8 g/dL Low 6.0-8.3 [facility] Comment on above: Performed By: #### L [id number] ####[facility] ([facility])[address] [place] [address] Sodium [Moles/Vol] 133 mmol/L Low 136-145 [facility] Comment on above: Performed By: #### L [id number] ####[facility] ([facility])[address] [place] [address] Urea nitrogen [Mass/Vol] 25 mg/dL Normal 7-25 [facility] Comment on above: Performed By: #### L [id number] ####[facility] ([facility])[address] [place] [address] UREA NITROGEN/CREATININE (MASS RATIO) IN SER/PLAS 31.3 Normal [facility] Comment on above: Performed By: #### L [id number] ####[facility] ([facility])[address] [place] [address] FERRITINon 02-26-2025 FERRITIN (NG/ML) IN SER/PLAS 234.0 ng/mL Normal 24.0-336.0 [facility] Comment on above: Performed By: #### L [id number] ####[facility] ([facility] [place])[address] [place] [address] FOLATEon 02-26-2025 FOLATE (NG/ML) IN SER/PLAS 17.66 ng/mL Normal 6.6-1000 [facility] Comment on above: Performed By: #### L [id number] ####[facility] ([facility])[address] [place] [address] IRON AND TIBCon 02-26-2025 IRON (UG/DL) IN SER/PLAS 20 ug/dL Low 50-212 [facility] Comment on above: Performed By: #### L [id number] ####[facility] ([facility])[address] [place] [address] IRON BINDING CAPACITY (UG/DL) IN SER/PLAS 227 ug/dL Low 250-450 [facility] Comment on above: Performed By: #### L [id number] ####[facility] ([facility])[address] [place] [address] IRON BINDING CAPACITY.UNSATURATE D (UG/DL) IN SER/PLAS 207.0 ug/dL Normal 155.0-355.0 [facility] Comment on above: Performed By: #### L [id number] ####[facility] ([facility] [place])[address] [place] [address] IRON SATURATION (%) IN SER/PLAS 9 % Low 20-50 [facility] Comment on above: Performed By: #### L [id number] ####[facility] ([facility])[address] [place] [address] MAGNESIUMon 02-26-2025 Magnesium [Mass/Vol] 2.2 mg/dL Normal 1.9-2.7 [facility] Comment on above: Performed By: #### L [id number] ####[facility] ([facility])[address] [place] [address] PHOSPHORUSon 02-26-2025 Magnesium [Mass/Vol] 1.8 mg/dL Low 2.5-5.0 [facility] Comment on above: Performed By: #### L [id number] ####[facility] ([facility])[address] [place] [address] RETICULOCYTE PANELon 025 HEMOGLOBIN (PG) IN RETICULOCYTES 33.0 pg Normal 28.0-36.0 [facility] Comment on above: Performed By: #### L [id number] ####[facility] ([facility])[address] [address] IMMATURE RETICULOCYTE FRACTION (%) 36.5 % High 2-16 [facility] Comment on above: Performed By: #### L [id number] ####[facility] ([facility])[address] [place] [address] RETICULOCYTES (10*6/UL) IN BLOOD 0.0781 10*6/uL Normal 0.0250-0.1000 [facility] Comment on above: Performed By: #### L [id number] ####[facility] ([facility])[address] [place] [address] Reticulocytes/100 RBC (Bld) 2.79 % High 0.50-1.80 [facility] Comment on above: Performed By: #### L [id number] ####[facility] ([facility])[place] [address] VITAMIN B12on 02-26-2025 Cobalamin (Vitamin B12) [Mass/Vol] 1129 pg/mL High 180-914 [facility] Comment on above: Result Comment: REFE RENCE RANGES:180-914 pg/mL Omlkol197-811 pg/mL Indeterminate<145 pg/mL Deficient Performed By: #### L [id number] ####[facility] ([facility])[address] [place] [address] 30on 02-25-2025 30 Normal [facility] CBCon 02-25-2025 Erythrocyte distribution width (RBC) [Ratio] 17.7 % High 11.5-15.0 [facility] Comment on above: Performed By: #### L [id number] ####[facility] ([facility] [place])[address] [place] [address] ERYTHROCYTE MEAN CORPUSCULAR HEMOGLOBIN CONCENTRATION (G/DL) BY AUTOMATED 34.8 g/dL Normal 32.0-35.[address] [facility] Comment on above: Performed By: #### L [id number] ####[facility] ([facility] [place])[address] [place] [address] Hematocrit (Bld) [Volume fraction] 23.3 % Low 39.0-50.0 [facility] Comment on above: Performed By: #### L [id number] ####[facility] ([facility] [place])[address] [place] [address] Hemoglobin (Bld) [Mass/Vol] 8.1 g/dL Low 13.0-17.0 [facility] Comment on above: Performed By: #### L [id number] ####[facility] ([facility] [place])[address] [place] [address] MCH (RBC) [Entitic mass] 31.2 pg Normal 27.0-33.0 [facility] Comment on above: Performed By: #### L [id number] ####[facility] ([facility])[address] [place] [address] MCV (RBC) [Entitic vol] 89.6 fL Normal 82.0-98.0 [facility] Comment on above: Performed By: #### L [id number] ####[facility] ([facility])[address] [place] [address] PLATELETS (10*3/UL) IN BLOOD AUTOMATED COUNT 180 10*3/uL Normal 150-400 [facility] Comment on above: Performed By: #### L [id number] ####[facility] ([facility])[address] [place] [address] RBC (Bld) [#/Vol] 2.60 10*6/uL Low 4.20-5.70 [facility] Comment on above: Performed By: #### L [id number] ####[facility] ([facility])[address] [place] [address] WBC (Bld) [#/Vol] 7.74 10*3/uL Normal 4.00-10.60 [facility] Comment on above: Performed By: #### L [id number] ####[facility] ([facility] [place])[address] [place] [address] Erythrocyte distribution width (RBC) [Ratio] 17.7 % High 11.5-15.0 [facility] Comment on above: Performed By: #### L [id number] ####[facility] ([facility])[address] [place] [address] ERYTHROCYTE MEAN CORPUSCULAR HEMOGLOBIN CONCENTRATION (G/DL) BY AUTOMATED 34.6 g/dL Normal 32.0-35.[address] [facility] Comment on above: Performed By: #### L [id number] ####[facility] ([facility])[address] [place] [address] Hematocrit (Bld) [Volume fraction] 26.0 % Low 39.0-50.0 [facility] Comment on above: Performed By: #### L [id number] ####[facility] ([facility])[address] [place] [address] Hemoglobin (Bld) [Mass/Vol] 9.0 g/dL Low 13.0-17.0 [facility] Comment on above: Performed By: #### L [id number] ####[facility] ([facility])[address] [place] [address] MCH (RBC) [Entitic mass] 31.0 pg Normal 27.0-33.0 [facility] Comment on above: Performed By: #### L [id number] ####[facility] ([facility])[address] [place] [address] MCV (RBC) [Entitic vol] 89.7 fL Normal 82.0-98.0 [facility] Comment on above: Performed By: #### L [id number] ####[facility] ([facility])[address] [place] [address] PLATELETS (10*3/UL) IN BLOOD AUTOMATED COUNT 180 10*3/uL Normal 150-400 [facility] Comment on above: Performed By: #### L [id number] ####[facility] ([facility])[address] [place] [address] RBC (Bld) [#/Vol] 2.90 10*6/uL Low 4.20-5.70 [facility] Comment on above: Performed By: #### L [id number] ####[facility] ([facility])[address] [place] [address] WBC (Bld) [#/Vol] 8.04 10*3/uL Normal 4.00-10.60 [facility] Comment on above: Performed By: #### L [id number] ####[facility] ([facility])[address] [place] [address] Erythrocyte distribution width (RBC) [Ratio] 17.7 % High 11.5-15.0 [facility] Comment on above: Performed By: #### L [id number] ####[facility] ([facility])[address] [place] [address] ERYTHROCYTE MEAN CORPUSCULAR HEMOGLOBIN CONCENTRATION (G/DL) BY AUTOMATED 34.2 g/dL Normal 32.0-35.[address] [facility] Comment on above: Performed By: #### L [id number] ####[facility] ([facility])[address] [place] [address] Hematocrit (Bld) [Volume fraction] 24.3 % Low 39.0-50.0 [facility] Comment on above: Performed By: #### L [id number] ####[facility] ([facility])[address] [place] [address] Hemoglobin (Bld) [Mass/Vol] 8.3 g/dL Low 13.0-17.0 [facility] Comment on above: Performed By: #### L [id number] ####[facility] ([facility] [place])[address] [place] [address] MCH (RBC) [Entitic mass] 30.6 pg Normal 27.0-33.0 [facility] Comment on above: Performed By: #### L [id number] ####[facility] ([facility] [place])[address] [place], [place] [address] MCV (RBC) [Entitic vol] 89.7 fL Normal 82.0-98.0 [facility] Comment on above: Performed By: #### L [id number] ####[facility] ([facility])[address] [place] [address] PLATELETS (10*3/UL) IN BLOOD AUTOMATED COUNT 158 10*3/uL Normal 150-400 [facility] Comment on above: Performed By: #### L [id number] ####[facility] ([facility])[address] [place] [address] RBC (Bld) [#/Vol] 2.71 10*6/uL Low 4.20-5.70 [facility] Comment on above: Performed By: #### L [id number] ####[facility] ([facility])[address] [place], [place] [address] WBC (Bld) [#/Vol] 7.39 10*3/uL Normal 4.00-10.60 [facility] Comment on above: Performed By: #### L [id number] ####[facility] ([facility] [place])[address] [place] [address] Erythrocyte distribution width (RBC) [Ratio] 15.8 % High 11.5-15.0 [facility] Comment on above: Performed By: #### L [id number] ####[facility] ([facility] [place])[address] [place], [place] [address] ERYTHROCYTE MEAN CORPUSCULAR HEMOGLOBIN CONCENTRATION (G/DL) BY AUTOMATED 33.9 g/dL Normal 32.0-35.[address] [facility] Comment on above: Performed By: #### L [id number] ####[facility] ([facility])[address] [place] [address] Hematocrit (Bld) [Volume fraction] 22.7 % Low 39.0-50.0 [facility] Comment on above: Performed By: #### L [id number] ####[facility] ([facility])[address] [address] Hemoglobin (Bld) [Mass/Vol] 7.7 g/dL Low 13.0-17.0 [facility] Comment on above: Performed By: #### L [id number] ####[facility] ([facility])[address] [place] [address] MCH (RBC) [Entitic mass] 31.0 pg Normal 27.0-33.0 [facility] Comment on above: Performed By: #### L [id number] ####[facility] ([facility])[address] [place] [address] MCV (RBC) [Entitic vol] 91.5 fL Normal 82.0-98.0 [facility] Comment on above: Performed By: #### L [id number] ####[facility] ([facility])[address] [place] [address] PLATELETS (10*3/UL) IN BLOOD AUTOMATED COUNT 172 10*3/uL Normal 150-400 [facility] Comment on above: Performed By: #### L [id number] ####[facility] ([facility])[address] [place] [address] RBC (Bld) [#/Vol] 2.48 10*6/uL Low 4.20-5.70 [facility] Comment on above: Performed By: #### L [id number] ####[facility] ([facility])[address] [place] [address] WBC (Bld) [#/Vol] 8.90 10*3/uL Normal 4.00-10.60 [facility] Comment on above: Performed By: #### L [id number] ####[facility] ([facility])[address] [address] Erythrocyte distribution width (RBC) [Ratio] 15.8 % High 11.5-15.0 [facility] Comment on above: Performed By: #### L [id number] ####[facility] ([facility] [place])[address] [address] ERYTHROCYTE MEAN CORPUSCULAR HEMOGLOBIN CONCENTRATION (G/DL) BY AUTOMATED 35.0 g/dL Normal 32.0-35.[address] [facility] Comment on above: Performed By: #### L [id number] ####[facility] ([facility] [place])[address] [place], [place] [address] Hematocrit (Bld) [Volume fraction] 23.7 % Low 39.0-50.0 [facility] Comment on above: Performed By: #### L [id number] ####[facility] ([facility])[address] [address] Hemoglobin (Bld) [Mass/Vol] 8.3 g/dL Low 13.0-17.0 [facility] Comment on above: Performed By: #### L [id number] ####[facility] ([facility] [place])[address] [place], [place] [address] MCH (RBC) [Entitic mass] 31.7 pg Normal 27.0-33.0 [facility] Comment on above: Performed By: #### L [id number] ####[facility] ([facility])[address] [place], [place] [address] MCV (RBC) [Entitic vol] 90.5 fL Normal 82.0-98.0 [facility] Comment on above: Performed By: #### L [id number] ####[facility] ([facility] [place])[address] [address] PLATELETS (10*3/UL) IN BLOOD AUTOMATED COUNT 178 10*3/uL Normal 150-400 [facility] Comment on above: Performed By: #### L [id number] ####[facility] ([facility])[address] [place] [address] RBC (Bld) [#/Vol] 2.62 10*6/uL Low 4.20-5.70 [facility] Comment on above: Performed By: #### L [id number] ####[facility] ([facility] [place])[address] [place] [address] WBC (Bld) [#/Vol] 10.11 10*3/uL Normal 4.00-10.60 [facility] Comment on above: Performed By: #### L [id number] ####[facility] ([facility] [place])[address] [place] [address] COMPREHENSIVE METABOLIC PANE Rogelio 02-25-2025 Albumin [Mass/Vol] 3.1 g/dL Low 3.5-5.7 [facility] Comment on above: Performed By: #### L [id number] ####[facility] ([facility] [place])[address] [place] [address] ALP [Catalytic activity/Vol] 54 U/L Normal 34-104 [facility] Comment on above: Performed By: #### L [id number] ####[facility] ([facility])[address] [place] [address] ALT [Catalytic activity/Vol] 27 U/L Normal 7-52 [facility] Comment on above: Performed By: #### L [id number] ####[facility] ([facility])[address] [place] [address] Anion gap [Moles/Vol] 9 mmol/L Normal 7-20 [facility] Comment on above: Performed By: #### L [id number] ####[facility] ([facility])[address] [place] [address] AST [Catalytic activity/Vol] 19 U/L Normal 13-39 [facility] Comment on above: Performed By: #### L [id number] ####[facility] ([facility])[address] [place] [address] Bilirubin [Mass/Vol] 2.8 mg/dL High 0.3-1.0 [facility] Comment on above: Performed By: #### L [id number] ####[facility] ([facility])[address] [place] [address] Calcium [Mass/Vol] 8.1 mg/dL Low 8.6-10.3 [facility] Comment on above: Performed By: #### L [id number] ####[facility] ([facility])[address] [place] [address] Chloride [Moles/Vol] 99 mmol/L Normal 98-107 [facility] Comment on above: Performed By: #### L [id number] ####[facility] ([facility])[address] [place] [address] CO2 [Moles/Vol] 29 mmol/L Normal 21-31 [facility] Comment on above: Performed By: #### L [id number] ####[facility] ([facility])[address] [place] [address] Creatinine [Mass/Vol] 1.36 mg/dL High 0.70-1.30 [facility] Comment on above: Performed By: #### L [id number] ####[facility] ([facility] [place])[address] [place] [address] GLOMERULAR FILTRATION RATE ML/MIN/1.73 SQ M.PREDICTED 60.3 mL/min/1.73m*2 Normal >60.[address] [facility] Comment on above: Result Comment: [facility]???s estimated glomerular filtration rate (eGFR) will no [...] of individuals. Performed By: #### L [id number] ####[facility] ([facility])[address] [place] [address] Glucose [Mass/Vol] 102 mg/dL High 70-100 [facility] Comment on above: Performed By: #### L [id number] ####[facility] ([facility])[address] [place] [address] Potassium [Moles/Vol] 4.1 mmol/L Normal 3.5-5.1 [facility] Comment on above: Performed By: #### L [id number] ####[facility] ([facility])[address] [place] [address] Protein [Mass/Vol] 4.9 g/dL Low 6.0-8.3 [facility] Comment on above: Performed By: #### L [id number] ####[facility] ([facility])[address] [place] [address] Sodium [Moles/Vol] 133 mmol/L Low 136-145 [facility] Comment on above: Performed By: #### L [id number] ####[facility] ([facility])[address] [place] [address] Urea nitrogen [Mass/Vol] 40 mg/dL High 7-25 [facility] Comment on above: Performed By: #### L [id number] ####[facility] ([facility])[address] [place] [address] UREA NITROGEN/CREATININE (MASS RATIO) IN SER/PLAS 29.4 Normal [facility] Comment on above: Performed By: #### L [id number] ####[facility] ([facility])[address] [place] [address] CTA ABDOMEN PELVIS W IV CONT RASTon 02-25-2025 CTA ABDOMEN PELVIS W IV CONTRAST Normal [facility] DIGOXIN LEVELon 02-25-2025 DIGOXIN (NG/ML) IN SER/PLAS 2.3 ng/mL Critically high 0.7-2 [facility] Comment on above: Performed By: #### L [id number] ####[facility] ([facility])[address] [place] [address] HEMOGLOBIN AND HEMATOCRIT, B LOODon 02-25-2025 Hematocrit (Bld) [Volume fraction] 22.8 % Low 39.0-50.0 [facility] Comment on above: Performed By: #### L [id number] ####[facility] ([facility])[address] [address] Hemoglobin (Bld) [Mass/Vol] 7.9 g/dL Low 13.0-17.0 [facility] Comment on above: Performed By: #### L [id number] ####[facility] ([facility])[address] [place] [address] MAGNESIUMon 02-25-2025 Magnesium [Mass/Vol] 2.3 mg/dL Normal 1.9-2.7 [facility] Comment on above: Performed By: #### L [id number] ####[facility] ([facility])[address] [place] [address] PHOSPHORUSon 02-25-2025 Magnesium [Mass/Vol] 2.6 mg/dL Normal 2.5-5.0 [facility] Comment on above: Performed By: #### L [id number] ####[facility] ([facility])[address] [address] CBCon 02-24-2025 Erythrocyte distribution width (RBC) [Ratio] 15.8 % High 11.5-15.0 [facility] Comment on above: Performed By: #### L [id number] ####[facility] ([facility])[address] [place], [place] [address] ERYTHROCYTE MEAN CORPUSCULAR HEMOGLOBIN CONCENTRATION (G/DL) BY AUTOMATED 35.2 g/dL High 32.0-35.[address] [facility] Comment on above: Performed By: #### L [id number] ####[facility] ([facility])[address] [place], [place] [address] Hematocrit (Bld) [Volume fraction] 24.4 % Low 39.0-50.0 [facility] Comment on above: Performed By: #### L [id number] ####[facility] ([facility])[address] [place], [place] [address] Hemoglobin (Bld) [Mass/Vol] 8.6 g/dL Low 13.0-17.0 [facility] Comment on above: Performed By: #### L [id number] ####[facility] ([facility])[address] [address] MCH (RBC) [Entitic mass] 31.5 pg Normal 27.0-33.0 [facility] Comment on above: Performed By: #### L [id number] ####[facility] ([facility] [address] MCV (RBC) [Entitic vol] 89.4 fL Normal 82.0-98.0 [facility] Comment on above: Performed By: #### L [id number] ####[facility] ([facility])[address] [address] PLATELETS (10*3/UL) IN BLOOD AUTOMATED COUNT 182 10*3/uL Normal 150-400 [facility] Comment on above: Performed By: #### L [id number] ####[facility] ([facility])[address] [place] [address] RBC (Bld) [#/Vol] 2.73 10*6/uL Low 4.20-5.70 [facility] Comment on above: Performed By: #### L [id number] ####[facility] ([facility])[address] [place] [address] WBC (Bld) [#/Vol] 12.23 10*3/uL High 4.00-10.60 [facility] Comment on above: Performed By: #### L [id number] ####[facility] ([facility])[address] [place] [address] Erythrocyte distribution width (RBC) [Ratio] 15.8 % High 11.5-15.0 [facility] Comment on above: Performed By: #### L [id number] ####[facility] ([facility])[address] [place] [address] ERYTHROCYTE MEAN CORPUSCULAR HEMOGLOBIN CONCENTRATION (G/DL) BY AUTOMATED 34.9 g/dL Normal 32.0-35.0 [facility] [facility] Comment on above: Performed By: #### L [id number] ####[facility] ([facility] [place])[address] [place] [address] Hematocrit (Bld) [Volume fraction] 26.1 % Low 39.0-50.0 [facility] Comment on above: Performed By: #### L [id number] ####[facility] ([facility])[address] [place] [address] Hemoglobin (Bld) [Mass/Vol] 9.1 g/dL Low 13.0-17.0 [facility] Comment on above: Performed By: #### L [id number] ####[facility] ([facility])[address] [address] MCH (RBC) [Entitic mass] 31.5 pg Normal 27.0-33.0 [facility] Comment on above: Performed By: #### L [id number] ####[facility] ([facility])[address] [place] [address] MCV (RBC) [Entitic vol] 90.3 fL Normal 82.0-98.0 [facility] Comment on above: Performed By: #### L [id number] ####[facility] ([facility])[address] [place] [address] PLATELETS (10*3/UL) IN BLOOD AUTOMATED COUNT 196 10*3/uL Normal 150-400 [facility] Comment on above: Performed By: #### L [id number] ####[facility] ([facility])[address] [place] [address] RBC (Bld) [#/Vol] 2.89 10*6/uL Low 4.20-5.70 [facility] Comment on above: Performed By: #### L [id number] ####[facility] ([facility] [place])[address] [place] [address] WBC (Bld) [#/Vol] 16.83 10*3/uL High 4.00-10.60 [facility] Comment on above: Performed By: #### L [id number] ####[facility] ([facility] [place])[address] [place] [address] Erythrocyte distribution width (RBC) [Ratio] 15.9 % High 11.5-15.0 [facility] Comment on above: Performed By: #### L [id number] ####[facility] ([facility])[address] [address] ERYTHROCYTE MEAN CORPUSCULAR HEMOGLOBIN CONCENTRATION (G/DL) BY AUTOMATED 34.1 g/dL Normal 32.0-35.[address] [facility] Comment on above: Performed By: #### L [id number] ####[facility] ([facility])[address] [place] [address] Hematocrit (Bld) [Volume fraction] 26.4 % Low 39.0-50.0 [facility] Comment on above: Performed By: #### L [id number] ####[facility] ([facility])[address] [place] [address] Hemoglobin (Bld) [Mass/Vol] 9.0 g/dL Low 13.0-17.0 [facility] Comment on above: Performed By: #### L [id number] ####[facility] ([facility] [place])[address] [place] [address] MCH (RBC) [Entitic mass] 31.5 pg Normal 27.0-33.0 [facility] Comment on above: Performed By: #### L [id number] ####[facility] ([facility] [place])[address] [place] [address] MCV (RBC) [Entitic vol] 92.3 fL Normal 82.0-98.0 [facility] Comment on above: Performed By: #### L [id number] ####[facility] ([facility] [place])[address] [place] [address] PLATELETS (10*3/UL) IN BLOOD AUTOMATED COUNT 173 10*3/uL Normal 150-400 [facility] Comment on above: Performed By: #### L [id number] ####[facility] ([facility] [place])[address] [place] [address] RBC (Bld) [#/Vol] 2.86 10*6/uL Low 4.20-5.70 [facility] Comment on above: Performed By: #### L [id number] ####[facility] ([facility] [place])[address] [place] [address] WBC (Bld) [#/Vol] 14.22 10*3/uL High 4.00-10.60 [facility] Comment on above: Performed By: #### L [id number] ####[facility] ([facility])[address] [place] [address] CHLORIDE, URINE, RANDOMon Chloride (U) [Moles/Vol] mmol/L Low 110-250 [facility] Comment on above: Performed By: #### L [id number] ####[facility] ([facility])[address] [place] [address] COMPREHENSIVE METABOLIC PANE Rogelio 02-24-2025 Albumin [Mass/Vol] 3.3 g/dL Low 3.5-5.7 [facility] Comment on above: Performed By: #### L [id number] ####[facility] ([facility])[address] [place] [address] ALP [Catalytic activity/Vol] 58 U/L Normal 34-104 [facility] Comment on above: Performed By: #### L [id number] ####[facility] ([facility] [place])[address] [place] [address] ALT [Catalytic activity/Vol] 32 U/L Normal 7-52 [facility] Comment on above: Performed By: #### L [id number] ####[facility] ([facility] [place])[address] [place] [address] Anion gap [Moles/Vol] 12 mmol/L Normal 7-20 [facility] Comment on above: Performed By: #### L [id number] ####[facility] ([facility] [place])[address] [place] [address] AST [Catalytic activity/Vol] 24 U/L Normal 13-39 [facility] Comment on above: Performed By: #### L [id number] ####[facility] ([facility])[address] [place] [address] Bilirubin [Mass/Vol] 3.0 mg/dL High 0.3-1.0 [facility] Comment on above: Performed By: #### L [id number] ####[facility] ([facility] [place])[address] [place] [address] Calcium [Mass/Vol] 8.5 mg/dL Low 8.6-10.3 [facility] Comment on above: Performed By: #### L [id number] ####[facility] ([facility])[address] [place] [address] Chloride [Moles/Vol] 99 mmol/L Normal 98-107 [facility] Comment on above: Performed By: #### L [id number] ####[facility] ([facility] [place])[address] [place] [address] CO2 [Moles/Vol] 28 mmol/L Normal 21-31 [facility] Comment on above: Performed By: #### L [id number] ####[facility] ([facility])[address] [place] [address] Creatinine [Mass/Vol] 2.43 mg/dL High 0.70-1.30 [facility] Comment on above: Performed By: #### L [id number] ####[facility] ([facility] [place])[address] [place] [address] GLOMERULAR FILTRATION RATE ML/MIN/1.73 SQ M.PREDICTED 30.1 mL/min/1.73m*2 Low >60.[address] [facility] Comment on above: Result Comment: [facility]???s estimated glomerular filtration rate (eGFR) will no [...] of individuals. Performed By: #### L [id number] ####[facility] ([facility])[address] [place] [address] Glucose [Mass/Vol] 104 mg/dL High 70-100 [facility] Comment on above: Performed By: #### L [id number] ####[facility] ([facility])[address] [place] [address] Potassium [Moles/Vol] 4.1 mmol/L Normal 3.5-5.1 [facility] Comment on above: Performed By: #### L [id number] ####[facility] ([facility])[address] [place] [address] Protein [Mass/Vol] 5.2 g/dL Low 6.0-8.3 [facility] Comment on above: Performed By: #### L [id number] ####[facility] ([facility])[address] [place] [address] Sodium [Moles/Vol] 135 mmol/L Low 136-145 [facility] Comment on above: Performed By: #### L [id number] ####[facility] ([facility])[address] [place] [address] Urea nitrogen [Mass/Vol] 52 mg/dL High 7-25 [facility] Comment on above: Performed By: #### L [id number] ####[facility] ([facility])[address] [place] [address] UREA NITROGEN/CREATININE (MASS RATIO) IN SER/PLAS 21.4 [facility] Comment on above: Performed By: #### L [id number] ####[facility] ([facility])[address] [place] [address] CONSULTon 02-24-2025 CONSULT Normal [facility] CREATININE, URINE, RANDOMon 02-24-2025 Creatinine (U) [Mass/Vol] 170.0 mg/dL Normal 26-299 [facility] Comment on above: Performed By: #### L [id number] ####[facility] ([facility])[address] [place] [address] MAGNESIUMon 02-24-2025 Magnesium [Mass/Vol] 2.1 mg/dL Normal 1.9-2.7 [facility] Comment on above: Performed By: #### L [id number] ####[facility] ([facility])[address] [place] [address] OSMOLALITY, URINEon 02-25-20 25 OSMOLALITY, URINE 686 mOsm/kg Normal 80-1300 [facility] Comment on above: Result Comment: Test Performed by [employer] [facility] [place] [address] - Released 02/24/2025 17:40 Performed By: #### L [id number] ####[facility] [id number] [place] [address] PHOSPHORUSon 02-24-2025 Magnesium [Mass/Vol] 5.4 mg/dL High 2.5-5.0 [facility] Comment on above: Performed By: #### L [id number] ####[facility] ([facility])[address] [place] [address] POTASSIUM, URINE, RANDOMon 0 02-24-2025 Potassium (U) [Moles/Vol] 107 mmol/L Normal [facility] Comment on above: Performed By: #### L [id number] ####[facility] ([facility])[address] [place] [address] SODIUM, URINE, RANDOMon 01-30 Sodium (U) [Moles/Vol] 15 mmol/L Normal [facility] Comment on above: Performed By: #### L [id number] ####[facility] ([facility])[address] [place] [address] URINALYSIS WITH MICROSCOPICo n 02-24-2025 BILIRUBIN, TOTAL PRESENCE IN URINE Negative Normal Negative [facility] Comment on above: Performed By: #### L [id number] ####[facility] ([facility])[address] [place] [address] CASTS IN URINE Present Abnormal None Seen [facility] Comment on above: Performed By: #### L [id number] ####[facility] ([facility])[address] [place] [address] Clarity (U) Cloudy Abnormal Clear [facility] Comment on above: Performed By: #### L [id number] ####[facility] ([facility])[address] [place] [address] Color (U) Yellow Normal Colorless, Yellow, Light-Yellow [facility] Comment on above: Performed By: #### L [id number] ####[facility] ([facility])[address] [place] [address] GLUCOSE (MG/DL) IN URINE Normal Normal Normal [facility] Comment on above: Performed By: #### L [id number] ####[facility] ([facility])[address] [place] [address] HEMOGLOBIN PRESENCE IN URINE Large Abnormal Negative [facility] Comment on above: Performed By: #### L [id number] ####[facility] ([facility])[address] [place] [address] HYALINE CASTS GRADED/LPF IN URINE SEDIMENT BY MICROSCOPY 3-5 Abnormal 0-2 [facility] Comment on above: Performed By: #### L [id number] ####[facility] ([facility])[address] [place] [address] Ketones Ql (U) Negative Normal Negative [facility] Comment on above: Performed By: #### L [id number] ####[facility] ([facility])[address] [place] [address] LEUKOCYTE ESTERASE PRESENCE IN URINE BY TEST STRIP Moderate Abnormal Negative [facility] Comment on above: Performed By: #### L [id number] ####[facility] ([facility])[address] [place] [address] MUCUS (#/LPF) IN URINE SEDIMENT Moderate Abnormal None Seen, Occasional, Few [facility] Comment on above: Performed By: #### L [id number] ####[facility] ([facility])[address] [place] [address] NITRITE PRESENCE IN URINE Negative Normal Negative [facility] Comment on above: Performed By: #### L [id number] ####[facility] ([facility])[address] [place] [address] pH (U) 5.5 [pH] Normal 5.0-8.0 [facility] Comment on above: Performed By: #### L [id number] ####[facility] ([facility])[address] [place] [address] Protein (U) [Mass/Vol] 30 mg/dL Abnormal Negative [facility] Comment on above: Performed By: #### L [id number] ####[facility] ([facility])[address] [place] [address] RBC (#/HPF) IN URINE SEDIMENT >20 Abnormal None Seen, 0-2 [facility] Comment on above: Performed By: #### L [id number] ####[facility] ([facility])[address] [place] [address] Specific gravity (U) [Rel density] 1.036 High 1.010-1.030 [facility] Comment on above: Performed By: #### L [id number] ####[facility] ([facility] [place])[address] [place] [address] SQUAMOUS EPITHELIAL CELLS (#/LPF) IN URINE SEDIMENT Moderate Abnormal None Seen, Occasional, Few [facility] Comment on above: Performed By: #### L [id number] ####[facility] ([facility])[address] [place] [address] UROBILINOGEN (MG/DL) IN URINE Normal Normal Normal [facility] Comment on above: Performed By: #### L [id number] ####[facility] ([facility])[address] [facility] [address] WBC (LEUKOCYTE) (#/HPF) IN URINE SEDIMENT 21-50 Abnormal None Seen, 0-2 [facility] Comment on above: Performed By: #### L [id number] ####[facility] ([facility])[address] [place] [address] 30on 02-23-2024 30 Normal [facility] BASIC METABOLIC PANELon 08- Anion gap [Moles/Vol] 15 mmol/L Normal 7-20 [facility] Comment on above: Performed By: #### L [id number] ####[facility] ([facility])[address] [place] [address] Calcium [Mass/Vol] 9.1 mg/dL Normal 8.6-10.3 [facility] Comment on above: Performed By: #### L [id number] ####[facility] ([facility])[address] [place] [address] Chloride [Moles/Vol] 102 mmol/L Normal 98-107 [facility] Comment on above: Performed By: #### L [id number] ####[facility] ([facility])[address] [place] [address] CO2 [Moles/Vol] 25 mmol/L Normal 21-31 [facility] Comment on above: Performed By: #### L [id number] ####[facility] ([facility])[address] [place] [address] Creatinine [Mass/Vol] 2.01 mg/dL High 0.70-1.30 [facility] Comment on above: Performed By: #### L [id number] ####[facility] ([facility])[address] [place] [address] GLOMERULAR FILTRATION RATE ML/MIN/1.73 SQ M.PREDICTED 37.7 mL/min/1.73m*2 Low >60.[address] [facility] Comment on above: Result Comment: [facility]???s estimated glomerular filtration rate (eGFR) will no [...] of individuals. Performed By: #### L [id number] ####[facility] ([facility] [place])[address] [place] [address] Glucose [Mass/Vol] 128 mg/dL High 70-100 [facility] Comment on above: Performed By: #### L [id number] ####[facility] ([facility] [place])[address] [place] [address] Potassium [Moles/Vol] 4.5 mmol/L Normal 3.5-5.1 [facility] Comment on above: Performed By: #### L [id number] ####[facility] ([facility])[address] [place] [address] Sodium [Moles/Vol] 137 mmol/L Normal 136-145 [facility] Comment on above: Performed By: #### L [id number] ####[facility] ([facility] [place])[address] [place] [address] Urea nitrogen [Mass/Vol] 35 mg/dL High 7-25 [facility] Comment on above: Performed By: #### L [id number] ####[facility] ([facility] [place])[address] [place] [address] UREA NITROGEN/CREATININE (MASS RATIO) IN SER/PLAS 17.4 Normal [facility] Comment on above: Performed By: #### L [id number] ####[facility] ([facility])[address] [place] [address] BLOOD CULTUREon 02-23-2025 Bacteria identified Cx Nom (Bld) No growth at 5 days [facility] Comment on above: Performed By: #### L [id number] ####[facility] ([facility])[address] [place] [address] Bacteria identified Cx Nom (Bld) No growth at [address] [facility] Comment on above: Order Comment: From a different site than #1. Performed By: #### L [id number] ####[facility] ([facility] [place])[address] [address] CBCon 02-23-2025 Erythrocyte distribution width (RBC) [Ratio] 15.9 % High 11.5-15.0 [facility] Comment on above: Performed By: #### L [id number] ####[facility] ([facility])[address], [place] [address] ERYTHROCYTE MEAN CORPUSCULAR HEMOGLOBIN CONCENTRATION (G/DL) BY AUTOMATED 34.6 g/dL Normal 32.0-35.[address] [facility] Comment on above: Performed By: #### L [id number] ####[facility] ([facility] [place])[address] [place] [address] Hematocrit (Bld) [Volume fraction] 25.4 % Low 39.0-50.0 [facility] Comment on above: Performed By: #### L [id number] ####[facility] ([facility] [place])[address] [place] [address] Hemoglobin (Bld) [Mass/Vol] 8.8 g/dL Low 13.0-17.0 [facility] Comment on above: Performed By: #### L [id number] ####[facility] ([facility])[address] [place] [address] MCH (RBC) [Entitic mass] 31.5 pg Normal 27.0-33.0 [facility] Comment on above: Performed By: #### L [id number] ####[facility] ([facility])[address] [place] [address] MCV (RBC) [Entitic vol] 91.0 fL Normal 82.0-98.0 [facility] Comment on above: Performed By: #### L [id number] ####[facility] ([facility])[address] [place] [address] PLATELETS (10*3/UL) IN BLOOD AUTOMATED COUNT 171 10*3/uL Normal 150-400 [facility] Comment on above: Performed By: #### L [id number] ####[facility] ([facility])[address] [address] RBC (Bld) [#/Vol] 2.79 10*6/uL Low 4.20-5.70 [facility] Comment on above: Performed By: #### L [id number] ####[facility] ([facility])[address] [address] WBC (Bld) [#/Vol] 14.02 10*3/uL High 4.00-10.60 [facility] Comment on above: Performed By: #### L [id number] ####[facility] ([facility])[address] [address] Erythrocyte distribution width (RBC) [Ratio] 15.9 % High 11.5-15.0 [facility] Comment on above: Performed By: #### L [id number] ####[facility] ([facility])[address] [address] ERYTHROCYTE MEAN CORPUSCULAR HEMOGLOBIN CONCENTRATION (G/DL) BY AUTOMATED 35.4 g/dL High 32.0-35.[address] [facility] Comment on above: Performed By: #### L [id number] ####[facility] ([facility])[address] [place], [place] [address] Hematocrit (Bld) [Volume fraction] 28.0 % Low 39.0-50.0 [facility] Comment on above: Performed By: #### L [id number] ####[facility] ([facility])[address] [place] [address] Hemoglobin (Bld) [Mass/Vol] 9.9 g/dL Low 13.0-17.0 [facility] Comment on above: Performed By: #### L [id number] ####[facility] ([facility])[address] [place] [address] MCH (RBC) [Entitic mass] 31.6 pg Normal 27.0-33.0 [facility] Comment on above: Performed By: #### L [id number] ####[facility] ([facility])[address] [place] [address] MCV (RBC) [Entitic vol] 89.5 fL Normal 82.0-98.0 [facility] Comment on above: Performed By: #### L [id number] ####[facility] ([facility])[address] [place] [address] PLATELETS (10*3/UL) IN BLOOD AUTOMATED COUNT 192 10*3/uL Normal 150-400 [facility] Comment on above: Performed By: #### L [id number] ####[facility] ([facility])[address] [place] [address] RBC (Bld) [#/Vol] 3.13 10*6/uL Low 4.20-5.70 [facility] Comment on above: Performed By: #### L [id number] ####[facility] ([facility])[address] [place] [address] WBC (Bld) [#/Vol] 16.62 10*3/uL High 4.00-10.60 [facility] Comment on above: Performed By: #### L [id number] ####[facility] ([facility])[address] [place] [address] Erythrocyte distribution width (RBC) [Ratio] 15.8 % High 11.5-15.0 [facility] Comment on above: Performed By: #### L [id number] ####[facility] ([facility])[address] [place] [address] ERYTHROCYTE MEAN CORPUSCULAR HEMOGLOBIN CONCENTRATION (G/DL) BY AUTOMATED 35.3 g/dL High 32.0-35.[address] [facility] Comment on above: Performed By: #### L [id number] ####[facility] ([facility])[address] [place] [address] Hematocrit (Bld) [Volume fraction] 29.5 % Low 39.0-50.0 [facility] Comment on above: Performed By: #### L [id number] ####[facility] ([facility])[address] [address] Hemoglobin (Bld) [Mass/Vol] 10.4 g/dL Low 13.0-17.0 [facility] Comment on above: Performed By: #### L [id number] ####[facility] ([facility])[address] [address] MCH (RBC) [Entitic mass] 31.6 pg Normal 27.0-33.0 [facility] Comment on above: Performed By: #### L [id number] ####[facility] ([facility])[address] [address] MCV (RBC) [Entitic vol] 89.7 fL Normal 82.0-98.0 [facility] Comment on above: Performed By: #### L [id number] ####[facility] ([facility])[address] [address] PLATELETS (10*3/UL) IN BLOOD AUTOMATED COUNT 200 10*3/uL Normal 150-400 [facility] Comment on above: Performed By: #### L [id number] ####[facility] ([facility])[address] [address] RBC (Bld) [#/Vol] 3.29 10*6/uL Low 4.20-5.70 [facility] Comment on above: Performed By: #### L [id number] ####[facility] ([facility] [address] WBC (Bld) [#/Vol] 15.65 10*3/uL High 4.00-10.60 [facility] Comment on above: Performed By: #### L [id number] ####[facility] ([facility])[address] [address] Erythrocyte distribution width (RBC) [Ratio] 15.8 % High 11.5-15.0 [facility] Comment on above: Performed By: #### L [id number] ####[facility] ([facility])[address] [address] ERYTHROCYTE MEAN CORPUSCULAR HEMOGLOBIN CONCENTRATION (G/DL) BY AUTOMATED 35.0 g/dL Normal 32.0-35.[address] [facility] Comment on above: Performed By: #### L [id number] ####[facility] ([facility])[address] [address] Hematocrit (Bld) [Volume fraction] 31.1 % Low 39.0-50.0 [facility] Comment on above: Performed By: #### L [id number] ####[facility] [facility] ([facility])[address] [address] Hemoglobin (Bld) [Mass/Vol] 10.9 g/dL Low 13.0-17.0 [facility] Comment on above: Performed By: #### L [id number] ####[facility] ([facility])[address] [address] MCH (RBC) [Entitic mass] 31.5 pg Normal 27.0-33.0 [facility] Comment on above: Performed By: #### L [id number] ####[facility] ([facility] [place])[address] [address] MCV (RBC) [Entitic vol] 89.9 fL Normal 82.0-98.0 [facility] Comment on above: Performed By: #### L [id number] ####[facility] ([facility] [place])[address] [place] [address] PLATELETS (10*3/UL) IN BLOOD AUTOMATED COUNT 214 10*3/uL Normal 150-400 [facility] Comment on above: Performed By: #### L [id number] ####[facility] ([facility])[address] [address] RBC (Bld) [#/Vol] 3.46 10*6/uL Low 4.20-5.70 [facility] Comment on above: Performed By: #### L [id number] ####[facility] ([facility])[address] [address] WBC (Bld) [#/Vol] 14.82 10*3/uL High 4.00-10.60 [facility] Comment on above: Performed By: #### L [id number] ####[facility] ([facility] [place])[address] [address] Erythrocyte distribution width (RBC) [Ratio] 15.9 % High 11.5-15.0 [facility] Comment on above: Performed By: #### L [id number] ####[facility] ([facility])[address] [address] ERYTHROCYTE MEAN CORPUSCULAR HEMOGLOBIN CONCENTRATION (G/DL) BY AUTOMATED 34.6 g/dL Normal 32.0-35.[address] [facility] Comment on above: Performed By: #### L [id number] ####[facility] ([facility])[address] [place] [address] Hematocrit (Bld) [Volume fraction] 32.1 % Low 39.0-50.0 [facility] Comment on above: Performed By: #### L [id number] ####[facility] ([facility])[address] [address] Hemoglobin (Bld) [Mass/Vol] 11.1 g/dL Low 13.0-17.0 [facility] Comment on above: Performed By: #### L [id number] ####[facility] ([facility] [place])[address] [address] MCH (RBC) [Entitic mass] 31.4 pg Normal 27.0-33.0 [facility] Comment on above: Performed By: #### L [id number] ####[facility] ([facility] [place])[address] [address] MCV (RBC) [Entitic vol] 90.9 fL Normal 82.0-98.0 [facility] Comment on above: Performed By: #### L [id number] ####[facility] ([facility])[address] [place] [address] PLATELETS (10*3/UL) IN BLOOD AUTOMATED COUNT 213 10*3/uL Normal 150-400 [facility] Comment on above: Performed By: #### L [id number] ####[facility] ([facility])[address] [place] [address] RBC (Bld) [#/Vol] 3.53 10*6/uL Low 4.20-5.70 [facility] Comment on above: Performed By: #### L [id number] ####[facility] ([facility])[address] [address] WBC (Bld) [#/Vol] 13.82 10*3/uL High 4.00-10.60 [facility] Comment on above: Performed By: #### L [id number] ####[facility] ([facility])[address] [place] [address] COMPREHENSIVE METABOLIC PANE Rogelio 02-23-2025 Albumin [Mass/Vol] 3.5 g/dL Normal 3.5-5.7 [facility] Comment on above: Performed By: #### L [id number] ####[facility] ([facility])[address] [address] ALP [Catalytic activity/Vol] 61 U/L Normal 34-104 [facility] Comment on above: Performed By: #### L [id number] ####[facility] ([facility])[address] [place] [address] ALT [Catalytic activity/Vol] 32 U/L Normal 7-52 [facility] Comment on above: Performed By: #### L [id number] ####[facility] ([facility] [place])[address] [place] [address] Anion gap [Moles/Vol] 16 mmol/L Normal 7-20 [facility] Comment on above: Performed By: #### L [id number] ####[facility] ([facility] [place])[address] [place] [address] AST [Catalytic activity/Vol] 25 U/L Normal 13-39 [facility] Comment on above: Performed By: #### L [id number] ####[facility] ([facility])[address] [place] [address] Bilirubin [Mass/Vol] 3.4 mg/dL High 0.3-1.0 [facility] Comment on above: Performed By: #### L [id number] ####[facility] ([facility])[address] [place] [address] Calcium [Mass/Vol] 8.9 mg/dL Normal 8.6-10.3 [facility] Comment on above: Performed By: #### L [id number] ####[facility] ([facility])[address] [place] [address] Chloride [Moles/Vol] 101 mmol/L Normal 98-107 [facility] Comment on above: Performed By: #### L [id number] ####[facility] ([facility])[address] [place] [address] CO2 [Moles/Vol] 24 mmol/L Normal 21-31 [facility] Comment on above: Performed By: #### L [id number] ####[facility] ([facility])[address] [place] [address] Creatinine [Mass/Vol] 2.27 mg/dL High 0.70-1.30 [facility] Comment on above: Performed By: #### L [id number] ####[facility] ([facility])[address] [place] [address] GLOMERULAR FILTRATION RATE ML/MIN/1.73 SQ M.PREDICTED 32.6 mL/min/1.73m*2 Low >60.[address] [facility] Comment on above: Result Comment: [facility]???s estimated glomerular filtration rate (eGFR) will no [...] of individuals. Performed By: #### L [id number] ####[facility] ([facility])[address] [place] [address] Glucose [Mass/Vol] 118 mg/dL High 70-100 [facility] Comment on above: Performed By: #### L [id number] ####[facility] ([facility])[address] [place] [address] Potassium [Moles/Vol] 4.5 mmol/L Normal 3.5-5.1 [facility] Comment on above: Performed By: #### L [id number] ####[facility] ([facility])[address] [place] [address] Protein [Mass/Vol] 5.5 g/dL Low 6.0-8.3 [facility] Comment on above: Performed By: #### L [id number] ####[facility] ([facility])[address] [place] [address] Sodium [Moles/Vol] 136 mmol/L Normal 136-145 [facility] Comment on above: Performed By: #### L [id number] ####[facility] ([facility])[address] [place] [address] Urea nitrogen [Mass/Vol] 39 mg/dL High 7-25 [facility] Comment on above: Performed By: #### L [id number] ####[facility] ([facility])[address] [place] [address] UREA NITROGEN/CREATININE (MASS RATIO) IN SER/PLAS 17.2 Normal [facility] Comment on above: Performed By: #### L [id number] ####[facility] ([facility])[address] [place] [address] Consultation/Specialist Note on 02-23-2025 Consultation/Specia list Note [id number]#1. 00OTGTIFF [facility] LACTIC ACID WITH 4 HOUR REFL EXon 02-23-2025 LACTATE (MMOL/L) IN SER/PLAS 1.8 mmol/L Normal 0.5-2.2 [facility] Comment on above: Performed By: #### L [id number] ####[facility] ([facility])[address] [place] [address] MAGNESIUMon 02-23-2025 Magnesium [Mass/Vol] 2.0 mg/dL Normal 1.9-2.7 [facility] Comment on above: Performed By: #### L [id number] ####[facility] ([facility])[address] [place] [address] Outside Recordson 02-23-2025 Outside Records [id number]#1. 00OTGTIFF Normal [facility] Outside Records [id number]#1. 00OTGTIFF Normal [facility] PHOSPHORUSon 02-23-2025 Magnesium [Mass/Vol] 6.1 mg/dL High 2.5-5.0 [facility] Comment on above: Performed By: #### L [id number] ####[facility] ([facility])[address] [place] [address] ANTI-XA (HEPARIN LEVEL)on HEPARIN UNFRACTIONATED (U/ML) IN PPP BY CHROMOGENIC METHOD 0.55 IU/mL Normal 0.3-0.7 [facility] Comment on above: Result Comment: Linda roxaban and Apixaban will interfere with the anti Xa assay used to monitor UFH and LMWH. Performed By: #### L [id number] ####[facility] ([facility])[address] [place] [address] HEPARIN UNFRACTIONATED (U/ML) IN PPP BY CHROMOGENIC METHOD 0.71 IU/mL High 0.3-0.7 [facility] Comment on above: Result Comment: Linda roxaban and Apixaban will interfere with the anti Xa assay used to monitor UFH and LMWH. Performed By: #### L [id number] ####[facility] ([facility])[address] [place] [address] BLOOD CULTUREon 02-22-2025 Bacteria identified Cx Nom (Bld) No growth at [address] [facility] Comment on above: Order Comment: From a different site than #1. Performed By: #### L [id number] ####[facility] ([facility])[address] [place] [address] CBCon 02-22-2025 Erythrocyte distribution width (RBC) [Ratio] 15.9 % High 11.5-15.0 [facility] Comment on above: Performed By: #### L [id number] ####[facility] ([facility])[address] [place] [address] ERYTHROCYTE MEAN CORPUSCULAR HEMOGLOBIN CONCENTRATION (G/DL) BY AUTOMATED 34.1 g/dL Normal 32.0-35.[address] [facility] Comment on above: Performed By: #### L [id number] ####[facility] ([facility])[address] [place] [address] Hematocrit (Bld) [Volume fraction] 33.4 % Low 39.0-50.0 [facility] Comment on above: Performed By: #### L [id number] ####[facility] ([facility])[address] [place] [address] Hemoglobin (Bld) [Mass/Vol] 11.4 g/dL Low 13.0-17.0 [facility] Comment on above: Performed By: #### L [id number] ####[facility] ([facility])[address] [place] [address] MCH (RBC) [Entitic mass] 31.1 pg Normal 27.0-33.0 [facility] Comment on above: Performed By: #### L [id number] ####[facility] ([facility])[address] [place] [address] MCV (RBC) [Entitic vol] 91.3 fL Normal 82.0-98.0 [facility] Comment on above: Performed By: #### L [id number] ####[facility] ([facility])[address] [address] PLATELETS (10*3/UL) IN BLOOD AUTOMATED COUNT 215 10*3/uL Normal 150-400 [facility] Comment on above: Performed By: #### L [id number] ####[facility] ([facility] [place])[address] [address] RBC (Bld) [#/Vol] 3.66 10*6/uL Low 4.20-5.70 [facility] Comment on above: Performed By: #### L [id number] ####[facility] ([facility] [place])[address] [address] WBC (Bld) [#/Vol] 10.74 10*3/uL High 4.00-10.60 [facility] Comment on above: Performed By: #### L [id number] ####[facility] ([facility])[address] [address] Erythrocyte distribution width (RBC) [Ratio] 15.8 % High 11.5-15.0 [facility] Comment on above: Performed By: #### L [id number] ####[facility] ([facility])[address], [place] [address] ERYTHROCYTE MEAN CORPUSCULAR HEMOGLOBIN CONCENTRATION (G/DL) BY AUTOMATED 33.7 g/dL Normal 32.0-35.[address] [facility] Comment on above: Performed By: #### L [id number] ####[facility] ([facility] [place])[address], [place] [address] Hematocrit (Bld) [Volume fraction] 40.1 % Normal 39.0-50.0 [facility] Comment on above: Performed By: #### L [id number] ####[facility] ([facility] [place])[address], [place] [address] Hemoglobin (Bld) [Mass/Vol] 13.5 g/dL Normal 13.0-17.0 [facility] Comment on above: Performed By: #### L [id number] ####[facility] ([facility] [place])[address] [place] [address] MCH (RBC) [Entitic mass] 30.9 pg Normal 27.0-33.0 [facility] Comment on above: Performed By: #### L [id number] ####[facility] ([facility])[address] [address] MCV (RBC) [Entitic vol] 91.8 fL Normal 82.0-98.0 [facility] Comment on above: Performed By: #### L [id number] ####[facility] ([facility] [place])[address] [place] [address] PLATELETS (10*3/UL) IN BLOOD AUTOMATED COUNT 257 10*3/uL Normal 150-400 [facility] Comment on above: Performed By: #### L [id number] ####[facility] ([facility] [place])[address] [place] [address] RBC (Bld) [#/Vol] 4.37 10*6/uL Normal 4.20-5.70 [facility] Comment on above: Performed By: #### L [id number] ####[facility] ([facility] [place])[address] [place] [address] WBC (Bld) [#/Vol] 11.61 10*3/uL High 4.00-10.60 [facility] Comment on above: Performed By: #### L [id number] ####[facility] ([facility] [place])[address] [place] [address] ERYTHROCYTE MEAN CORPUSCULAR HEMOGLOBIN CONCENTRATION (G/DL) BY AUTOMATED 34.2 g/dL Normal 32.0-35.[address] [facility] Comment on above: Performed By: #### L [id number] ####[facility] ([facility])[address] [place] [address] Hematocrit (Bld) [Volume fraction] 45.0 % Normal 39.0-50.0 [facility] Comment on above: Performed By: #### L [id number] ####[facility] ([facility])[address] [place] [address] Hemoglobin (Bld) [Mass/Vol] 15.4 g/dL Normal 13.0-17.0 [facility] Comment on above: Performed By: #### L [id number] ####[facility] ([facility] [place])[address] [address] MCH (RBC) [Entitic mass] 31.3 pg Normal 27.0-33.0 [facility] Comment on above: Performed By: #### L [id number] ####[facility] ([facility])[address] [place] [address] MCV (RBC) [Entitic vol] 91.5 fL Normal 82.0-98.0 [facility] Comment on above: Performed By: #### L [id number] ####[facility] ([facility])[address] [place] [address] PLATELETS (10*3/UL) IN BLOOD AUTOMATED COUNT 242 10*3/uL Normal 150-400 [facility] Comment on above: Performed By: #### L [id number] ####[facility] ([facility])[address] [place] [address] RBC (Bld) [#/Vol] 4.92 10*6/uL Normal 4.20-5.70 [facility] Comment on above: Performed By: #### L [id number] ####[facility] ([facility])[address] [place] [address] WBC (Bld) [#/Vol] 12.27 10*3/uL High 4.00-10.60 [facility] Comment on above: Performed By: #### L [id number] ####[facility] ([facility] [place])[address] [place] [address] CBC WITH AUTO DIFFERENTIALon 02-22-2025 Basophils (Bld) [#/Vol] 0.02 10*3/uL Normal 0.00-0.20 [facility] Comment on above: Performed By: #### L [id number] ####[facility] ([facility])[address] [place] [address] Basophils/100 WBC (Bld) 0.2 % Normal 0.0-1.0 [facility] Comment on above: Performed By: #### L [id number] ####[facility] ([facility] [place])[address] [place] [address] Eosinophils (Bld) [#/Vol] 0.00 10*3/uL Normal 0.00-0.50 [facility] Comment on above: Performed By: #### L [id number] ####[facility] ([facility] [place])[address] [place] [address] Eosinophils/100 WBC (Bld) 0.0 % Normal 0.0-6.0 [facility] Comment on above: Performed By: #### L [id number] ####[facility] ([facility])[address] [place] [address] Erythrocyte distribution width (RBC) [Ratio] 15.9 % High 11.5-15.0 [facility] Comment on above: Performed By: #### L [id number] ####[facility] ([facility])[address] [place] [address] Performed By: #### L [id number] ####[facility] ([facility])[address] [place] [address] ERYTHROCYTE MEAN CORPUSCULAR HEMOGLOBIN CONCENTRATION (G/DL) BY AUTOMATED 32.9 g/dL Normal 32.0-35.[address] [facility] Comment on above: Performed By: #### L [id number] ####[facility] ([facility] [place])[address] [place] [address] Hematocrit (Bld) [Volume fraction] 42.5 % Normal 39.0-50.0 [facility] Comment on above: Performed By: #### L [id number] ####[facility] ([facility])[address] [place] [address] Hemoglobin (Bld) [Mass/Vol] 14.0 g/dL Normal 13.0-17.0 [facility] Comment on above: Performed By: #### L [id number] ####[facility] ([facility])[address] [place] [address] Immature granulocytes (Bld) [#/Vol] 0.05 10*3/uL Normal 0.00-0.20 [facility] Comment on above: Performed By: #### L [id number] ####[facility] ([facility])[address] [place] [address] Immature granulocytes/100 WBC (Bld) 0.5 % Normal 0.0-1.0 [facility] Comment on above: Performed By: #### L [id number] ####[facility] ([facility])[address] [place] [address] Lymphocytes (Bld) [#/Vol] 1.14 10*3/uL Low 1.20-4.00 [facility] Comment on above: Performed By: #### L [id number] ####[facility] ([facility])[address] [place] [address] Lymphocytes/100 WBC (Bld) 10.6 % Low 20.0-45.0 [facility] Comment on above: Performed By: #### L [id number] ####[facility] ([facility] [place])[address] [place] [address] MCH (RBC) [Entitic mass] 30.8 pg Normal 27.0-33.0 [facility] Comment on above: Performed By: #### L [id number] ####[facility] ([facility])[address] [place] [address] MCV (RBC) [Entitic vol] 93.4 fL Normal 82.0-98.0 [facility] Comment on above: Performed By: #### L [id number] ####[facility] ([facility])[address] [place] [address] Monocytes (Bld) [#/Vol] 0.73 10*3/uL Normal 0.10-1.00 [facility] Comment on above: Performed By: #### L [id number] ####[facility] ([facility] [place])[address] [place] [address] Monocytes/100 WBC (Bld) 6.8 % Normal 5.0-12.0 [facility] Comment on above: Performed By: #### L [id number] ####[facility] ([facility] [place])[address] [place] [address] Neutrophils (Bld) [#/Vol] 8.79 10*3/uL High 1.60-7.60 [facility] Comment on above: Performed By: #### L [id number] ####[facility] ([facility])[address] [place] [address] Neutrophils/100 WBC (Bld) 81.9 % High 40.0-72.0 [facility] Comment on above: Performed By: #### L [id number] ####[facility] ([facility])[address] [place] [address] NRBC (PER 100 WBCS) BY AUTOMATED COUNT 0.0 % Normal 0 [facility] Comment on above: Performed By: #### L [id number] ####[facility] ([facility])[address] [place] [address] PLATELETS (10*3/UL) IN BLOOD AUTOMATED COUNT 224 10*3/uL Normal 150-400 [facility] Comment on above: Performed By: #### L [id number] ####[facility] ([facility] [place])[address] [place] [address] RBC (Bld) [#/Vol] 4.55 10*6/uL Normal 4.20-5.70 [facility] Comment on above: Performed By: #### L [id number] ####[facility] ([facility])[address] [place] [address] WBC (Bld) [#/Vol] 10.73 10*3/uL High 4.00-10.60 [facility] Comment on above: Performed By: #### L [id number] ####[facility] ([facility])[address] [place] [address] COMPREHENSIVE METABOLIC PANE Rogelio 02-22-2025 Albumin [Mass/Vol] 4.0 g/dL Normal 3.5-5.7 [facility] Comment on above: Performed By: #### L [id number] ####[facility] ([facility])[address] [place] [address] Performed By: #### L [id number] ####[facility] ([facility] [place] [place] [address] ALP [Catalytic activity/Vol] 70 U/L Normal 34-104 [facility] Comment on above: Performed By: #### L [id number] ####[facility] ([facility])[address] [place] [address] ALT [Catalytic activity/Vol] 28 U/L Normal 7-52 [facility] Comment on above: Performed By: #### L [id number] ####[facility] ([facility])[address] [place] [address] Anion gap [Moles/Vol] 16 mmol/L Normal 7-20 [facility] Comment on above: Performed By: #### L [id number] ####[facility] ([facility])[address] [place] [address] AST [Catalytic activity/Vol] 22 U/L Normal 13-39 [facility] Comment on above: Performed By: #### L [id number] ####[facility] ([facility])[address] [place] [address] Performed By: #### L [id number] ####[facility] ([facility])[address] [place] [address] Bilirubin [Mass/Vol] 5.1 mg/dL High 0.3-1.0 [facility] Comment on above: Performed By: #### L [id number] ####[facility] ([facility])[address] [place] [address] Calcium [Mass/Vol] 9.4 mg/dL Normal 8.6-10.3 [facility] Comment on above: Performed By: #### L [id number] ####[facility] ([facility])[address] [place] [address] Chloride [Moles/Vol] 104 mmol/L Normal 98-107 [facility] Comment on above: Performed By: #### L [id number] ####[facility] ([facility])[address] [place] [address] CO2 [Moles/Vol] 24 mmol/L Normal 21-31 [facility] Comment on above: Performed By: #### L [id number] ####[facility] ([facility] [place] [address] Creatinine [Mass/Vol] 1.43 mg/dL High 0.70-1.30 [facility] Comment on above: Performed By: #### L [id number] ####[facility] ([facility])[address] [place] [address] GLOMERULAR FILTRATION RATE ML/MIN/1.73 SQ M.PREDICTED 56.8 mL/min/1.73m*2 Low >60.[address] [facility] Comment on above: Result Comment: [facility]???s estimated glomerular filtration rate (eGFR) will no [...] of individuals. Performed By: #### L [id number] ####[facility] ([facility])[address] [place] [address] Glucose [Mass/Vol] 134 mg/dL High 70-100 [facility] Comment on above: Performed By: #### L [id number] ####[facility] ([facility])[address] [place] [address] Potassium [Moles/Vol] 4.5 mmol/L Normal 3.5-5.1 [facility] Comment on above: Performed By: #### L [id number] ####[facility] (BEAKER)[address] [place] [address] Protein [Mass/Vol] 6.2 g/dL Normal 6.0-8.3 [facility] Comment on above: Performed By: #### L [id number] ####[facility] (BEAKER)[address] [place] [address] Sodium [Moles/Vol] 139 mmol/L Normal 136-145 [facility] Comment on above: Performed By: #### L [id number] ####[facility] (BEAKER)[address] [place] [address] Urea nitrogen [Mass/Vol] 27 mg/dL High 01-22 [facility] Comment on above: Performed By: #### L [id number] ####[facility] (BEAKER)[address] [place] [address] UREA NITROGEN/CREATININE (MASS RATIO) IN SER/PLAS 18.9 Normal [facility] Comment on above: Performed By: #### L [id number] ####[facility] (BEAKER)[address] [place] [address] CONSULTon 02-22-2025 CONSULT Normal [facility] CONSULT Normal [facility] CT ABDOMEN PELVIS W IV CONTR Obi 02-22-2025 CT ABDOMEN PELVIS W IV CONTRAST Invalid Interpretation Code [facility] CT CHEST W IV CONTRASTon CT CHEST W IV CONTRAST Invalid Interpretation Code [facility] HEMOGLOBIN AND HEMATOCRIT, B LOODon 02-22-2025 Hematocrit (Bld) [Volume fraction] 42.9 % Normal 39.0-50.0 [facility] Comment on above: Performed By: #### L [id number] ####[facility] (BEAKER)[address] [place] [address] Hemoglobin (Bld) [Mass/Vol] 14.5 g/dL Normal 13.0-17.0 [facility] Comment on above: Performed By: #### L [id number] ####[facility] ([facility] [place] [place] [address] HEPATIC FUNCTION PANELon ALP [Catalytic activity/Vol] 72 U/L Normal 34-104 [facility] Comment on above: Performed By: #### L [id number] ####[facility] ([facility] [place])[address] [place] [address] ALT [Catalytic activity/Vol] 30 U/L Normal 7-52 [facility] Comment on above: Performed By: #### L [id number] ####[facility] ([facility] [place])[address] [place] [address] Bilirubin [Mass/Vol] 4.8 mg/dL High 0.3-1.0 [facility] Comment on above: Performed By: #### L [id number] ####[facility] ([facility])[address] [place] [address] Magnesium [Mass/Vol] 1.1 mg/dL High 0-0.2 [facility] Comment on above: Performed By: #### L [id number] ####[facility] ([facility])[address] [place] [address] Protein [Mass/Vol] 6.1 g/dL Normal 6.0-8.3 [facility] Comment on above: Performed By: #### L [id number] ####[facility] ([facility] [place])[address] [place] [address] HIGH SENSITIVITY TROPONIN Io n 02-22-2025 HS TROPONIN I (NG/L) 27 ng/L High <20 [facility] Comment on above: Performed By: #### L [id number] ####[facility] (BEAKER)[address] [place] [address] HS TROPONIN I (NG/L) 31 ng/L High <20 [facility] Comment on above: Performed By: #### L [id number] ####[facility] ([facility]ER)[address] [place] [address] HPon 02-22-2025 HP Normal [facility] LACTIC ACID WITH 4 HOUR REFL EXon 02-22-2025 LACTATE (MMOL/L) IN SER/PLAS 1.6 mmol/L Normal 0.5-2.2 [facility] Comment on above: Performed By: #### L [id number] ####[facility] ([facility])[address] [place] [address] LACTATE (MMOL/L) IN SER/PLAS 2.2 mmol/L Normal 0.5-2.2 [facility] Comment on above: Performed By: #### L [id number] ####[facility] ([facility])[address] [place] [address] MAGNESIUMon 02-22-2025 Magnesium [Mass/Vol] 1.8 mg/dL Low 1.9-2.7 [facility] Comment on above: Performed By: #### L [id number] ####[facility] ([facility])[address] [place] [address] Magnesium [Mass/Vol] 2.0 mg/dL Normal 1.9-2.7 [facility] Comment on above: Performed By: #### L [id number] ####[facility] ([facility])[address] [place] [address] NURSNOTEon 02-22-2025 NURSNOTE Lining Machine Tender called rapid at 0607 am pt was hypotensive BP 53/38 [employer] nurse at bedside 0609 am. MD notified came to bedside, orders were placed. 0700 BP 91/63. Day shift [employer] nurse at bedside. Normal [facility] POCT GLUCOSE METER UNSOLICIT ED RESULTSon 02-22-2025 Glucose [Mass/Vol] 125 mg/dL High 70-105 [facility] Comment on above: Order Comment: Waive d Testing in the ED is performed under the ED CLIA certificate #[id number]. Result Comment: [email or web address] Performed By: #### L [id number] ####[facility] ([facility])[address] [facility] [address] Glucose [Mass/Vol] 129 mg/dL High 70-105 [facility] Comment on above: Order Comment: Waive d Testing in the ED is performed under the ED CLIA certificate #[id number]. Result Comment: bib [email or web address] Performed By: #### L [id number] ####[facility] (PRAVEEN)[address] [place] [address] PROTIME-INRon 02-22-2025 INR IN PPP BY COAGULATION ASSAY 1.47 High 0.90-1.10 [facility] Comment on above: Result Comment: ACCC P [...] CHEST 1995;[id number]. Performed By: #### L [id number] ####[facility] [employer])[address] [place] [address] PROTHROMBIN TIME (PT) IN PPP BY COAGULATION ASSAY 17.9 Seconds High 12.3-14.8 [facility] Comment on above: Performed By: #### L [id number] ####[facility] ([facility]AVEEN)[address] [place] [address] TYPE AND SCREENon 02-22-2025 AB SCREEN Negative Normal [facility] Comment on above: Performed By: #### L [id number] ####[facility], ABO group Nom (Bld) O Normal [facility] Comment on above: Performed By: #### L [id number] ####[facility], RH TYPE IN BLOOD Positive Normal [facility] Comment on above: Performed By: #### L [id number] ####[facility], URINALYSIS MICROSCOPIC WITH REFLEX CULTUREon 02-22-2025 RBC (#/HPF) IN URINE SEDIMENT >20 Abnormal None Seen, 0-2 [facility] Comment on above: Performed By: #### L [id number] ####[facility] (BEAKER)[address] [place] [address] SQUAMOUS EPITHELIAL CELLS (#/LPF) IN URINE SEDIMENT None Seen Normal None Seen, Occasional, Few [facility] Comment on above: Performed By: #### L [id number] ####[facility] (BEAKER)[address] [place] [address] WBC (LEUKOCYTE) (#/HPF) IN URINE SEDIMENT None Seen Normal None Seen, 0-2 [facility] Comment on above: Performed By: #### L [id number] ####[facility] ([facility]AKER)[address] [place] [address] URINALYSIS WITH REFLEX CULTU REon 02-22-2025 BILIRUBIN, TOTAL PRESENCE IN URINE Negative Normal Negative [facility] Comment on above: Performed By: #### L [id number] ####[facility] (BEAKER)[address] [place] [address] Clarity (U) Turbid Abnormal Clear [facility] Comment on above: Performed By: #### L [id number] ####[facility] (BEAKER)[address] [place] [address] Color (U) Red Abnormal Colorless, Yellow, Light-Yellow [facility] Comment on above: Performed By: #### L [id number] ####[facility] (BEAKER)[address] [place] [address] GLUCOSE (MG/DL) IN URINE Normal Normal Normal [facility] Comment on above: Performed By: #### L [id number] ####[facility] (BEAKER)[address] [place] [address] HEMOGLOBIN PRESENCE IN URINE Large Abnormal Negative [facility] Comment on above: Performed By: #### L [id number] ####[facility] ([facility])[address] [place] [address] Ketones Ql (U) Negative Normal Negative [facility] Comment on above: Performed By: #### L [id number] ####[facility] ([facility])[address] [place] [address] LEUKOCYTE ESTERASE PRESENCE IN URINE BY TEST STRIP Trace Abnormal Negative [facility] Comment on above: Performed By: #### L [id number] ####[facility] ([facility])[address] [place] [address] NITRITE PRESENCE IN URINE Negative Normal Negative [facility] Comment on above: Performed By: #### L [id number] ####[facility] ([facility])[address] [place] [address] pH (U) 5.5 [pH] Normal 5.0-8.0 [facility] Comment on above: Performed By: #### L [id number] ####[facility] ([facility])[address] [place] [address] Protein (U) [Mass/Vol] 30 mg/dL Abnormal Negative [facility] Comment on above: Performed By: #### L [id number] ####[facility] ([facility])[address] [place] [address] Specific gravity (U) [Rel density] >1.050 High 1.010-1.030 [facility] Comment on above: Performed By: #### L [id number] ####[facility] ([facility])[address] [place] [address] UROBILINOGEN (MG/DL) IN URINE Normal Normal Normal [facility] Comment on above: Performed By: #### L [id number] ####[facility] ([facility])[address] [place] [address] 30on 02-21-2025 30 Normal [facility] ANTI-XA (HEPARIN LEVEL)on HEPARIN UNFRACTIONATED (U/ML) IN PPP BY CHROMOGENIC METHOD 0.57 IU/mL Normal 0.3-0.7 [facility] Comment on above: Result Comment: [place] roxaban and Apixaban will interfere with the anti Xa assay used to monitor UFH and LMWH. Performed By: #### L [id number] ####[facility] ([facility])[address] [facility] [address] APTTon 02-21-2025 ACTIVATED PARTIAL THROMBOPLASTIN TIME IN PPP BY COAGULATION ASSAY 117.9 Seconds High 25.0-35.0 [facility] Comment on above: Result Comment: Clin ical significance of the APTT is questionable in the presence of heparin. Performed By: #### L [id number] ####[facility] ([facility])[address] [place] [address] BASIC METABOLIC PANELon 01-30 Anion gap [Moles/Vol] 13 mmol/L Normal 7-20 [facility] Comment on above: Performed By: #### L [id number] ####[facility] ([facility])[address] [place] [address] Calcium [Mass/Vol] 8.9 mg/dL Normal 8.6-10.3 [facility] Comment on above: Performed By: #### L [id number] ####[facility] ([facility])[address] [place] [address] Chloride [Moles/Vol] 104 mmol/L Normal 98-107 [facility] Comment on above: Performed By: #### L [id number] ####[facility] ([facility] [facility] [place] [address] CO2 [Moles/Vol] 26 mmol/L Normal 21-31 [facility] Comment on above: Performed By: #### L [id number] ####[facility] ([facility] [place])[address] [place] [address] Creatinine [Mass/Vol] 0.99 mg/dL Normal 0.70-1.30 [facility] Comment on above: Performed By: #### L [id number] ####[facility] ([facility])[address] [place] [address] GLOMERULAR FILTRATION RATE ML/MIN/1.73 SQ M.PREDICTED 88.3 mL/min/1.73m*2 Normal >60.[address] [facility] Comment on above: Result Comment: [facility]???s estimated glomerular filtration rate (eGFR) will no [...] of individuals. Performed By: #### L [id number] ####[facility] ([facility])[address] [place] [address] Glucose [Mass/Vol] 86 mg/dL Normal 70-100 [facility] Comment on above: Performed By: #### L [id number] ####[facility] ([facility])[address] [place] [address] Potassium [Moles/Vol] 4.0 mmol/L Normal 3.5-5.1 [facility] Comment on above: Performed By: #### L [id number] ####[facility] ([facility])[address] [place] [address] Sodium [Moles/Vol] 139 mmol/L Normal 136-145 [facility] Comment on above: Performed By: #### L [id number] ####[facility] ([facility])[address] [place] [address] Urea nitrogen [Mass/Vol] 16 mg/dL Normal 7-25 [facility] Comment on above: Performed By: #### L [id number] ####[facility] ([facility])[address] [place] [address] UREA NITROGEN/CREATININE (MASS RATIO) IN SER/PLAS 16.2 Normal [facility] Comment on above: Performed By: #### L [id number] ####[facility] ([facility])[address] [place] [address] CBCon 02-21-2025 Erythrocyte distribution width (RBC) [Ratio] 15.2 % High 11.5-15.0 [facility] Comment on above: Performed By: #### L [id number] ####[facility] ([facility])[address] [place] [address] ERYTHROCYTE MEAN CORPUSCULAR HEMOGLOBIN CONCENTRATION (G/DL) BY AUTOMATED 34.7 g/dL Normal 32.0-35.[address] [facility] Comment on above: Performed By: #### L [id number] ####[facility] ([facility])[address] [place] [address] Hematocrit (Bld) [Volume fraction] 44.4 % Normal 39.0-50.0 [facility] Comment on above: Performed By: #### L [id number] ####[facility] ([facility])[address] [place] [address] Hemoglobin (Bld) [Mass/Vol] 15.4 g/dL Normal 13.0-17.0 [facility] Comment on above: Performed By: #### L [id number] ####[facility] ([facility])[address] [place] [address] MCH (RBC) [Entitic mass] 31.0 pg Normal 27.0-33.0 [facility] Comment on above: Performed By: #### L [id number] ####[facility] ([facility])[address] [place] [address] MCV (RBC) [Entitic vol] 89.3 fL Normal 82.0-98.0 [facility] Comment on above: Performed By: #### L [id number] ####[facility] ([facility] [place])[address] [place] [address] PLATELETS (10*3/UL) IN BLOOD AUTOMATED COUNT 177 10*3/uL Normal 150-400 [facility] Comment on above: Performed By: #### L [id number] ####[facility] ([facility])[address] [place] [address] RBC (Bld) [#/Vol] 4.97 10*6/uL Normal 4.20-5.70 [facility] Comment on above: Performed By: #### L [id number] ####[facility] ([facility])[address] [place] [address] WBC (Bld) [#/Vol] 7.24 10*3/uL Normal 4.00-10.60 [facility] Comment on above: Performed By: #### L [id number] ####[facility] ([facility])[address] [place] [address] CT ABDOMEN PELVIS WO IV CONT RASTon 02-21-2025 CT ABDOMEN PELVIS WO IV CONTRAST Invalid Interpretation Code [facility] 30on 02-20-2025 30 Normal [facility] 30 Normal [facility] 30 Normal [facility] ANTI-XA (HEPARIN LEVEL)on HEPARIN UNFRACTIONATED (U/ML) IN PPP BY CHROMOGENIC METHOD 0.55 IU/mL Normal 0.3-0.7 [facility] Comment on above: Result Comment: [place] roxaban and Apixaban will interfere with the anti Xa assay used to monitor UFH and LMWH. Performed By: #### L [id number] ####[facility] ([facility])[address] [place] [address] HEPARIN UNFRACTIONATED (U/ML) IN PPP BY CHROMOGENIC METHOD 0.61 IU/mL Normal 0.3-0.7 [facility] Comment on above: Result Comment: [place] roxaban and Apixaban will interfere with the anti Xa assay used to monitor UFH and LMWH. Performed By: #### L [id number] ####[facility] ([facility])[address] [place] [address] HEPARIN UNFRACTIONATED (U/ML) IN PPP BY CHROMOGENIC METHOD 0.84 IU/mL High 0.3-0.7 [facility] Comment on above: Order Comment: Other specimen was sitting in tube station, unknown for how long specimen was stationed Result Comment: [place] roxaban and Apixaban will interfere with the anti Xa assay used to monitor UFH and LMWH. Performed By: #### L [id number] ####[facility] ([facility])[address] [place] [address] APTTon 02-20-2025 ACTIVATED PARTIAL THROMBOPLASTIN TIME IN PPP BY COAGULATION ASSAY 169.6 Seconds Critically high 25.0-35.0 [facility] Comment on above: Result Comment: Clin ical significance of the APTT is questionable in the presence of heparin. Performed By: #### L [id number] ####[facility] ([facility])[address] [place] [address] BASIC METABOLIC PANELon 01-30 Anion gap [Moles/Vol] 14 mmol/L Normal 7-20 [facility] Comment on above: Performed By: #### L [id number] ####[facility] ([facility])[address] [place] [address] Calcium [Mass/Vol] 8.7 mg/dL Normal 8.6-10.3 [facility] Comment on above: Performed By: #### L [id number] ####[facility] ([facility])[address] [place] [address] Chloride [Moles/Vol] 105 mmol/L Normal 98-107 [facility] Comment on above: Performed By: #### L [id number] ####[facility] ([facility])[address] [place] [address] CO2 [Moles/Vol] 25 mmol/L Normal 21-31 [facility] Comment on above: Performed By: #### L [id number] ####[facility] ([facility])[address] [place] [address] Creatinine [Mass/Vol] 0.99 mg/dL Normal 0.70-1.30 [facility] Comment on above: Performed By: #### L [id number] ####[facility] ([facility])[address] [place] [address] GLOMERULAR FILTRATION RATE ML/MIN/1.73 SQ M.PREDICTED 88.3 mL/min/1.73m*2 Normal >60.[address] [facility] Comment on above: Result Comment: [facility]???s estimated glomerular filtration rate (eGFR) will no [...] of individuals. Performed By: #### L [id number] ####[facility] ([facility])[address] [place] [address] Glucose [Mass/Vol] 59 mg/dL Low 70-100 [facility] Comment on above: Performed By: #### L [id number] ####[facility] ([facility])[address] [place] [address] Potassium [Moles/Vol] 3.8 mmol/L Normal 3.5-5.1 [facility] Comment on above: Performed By: #### L [id number] ####[facility] ([facility])[address] [place] [address] Sodium [Moles/Vol] 140 mmol/L Normal 136-145 [facility] Comment on above: Performed By: #### L [id number] ####[facility] ([facility])[address] [place] [address] Urea nitrogen [Mass/Vol] 16 mg/dL Normal 7-25 [facility] Comment on above: Performed By: #### L [id number] ####[facility] ([facility])[address] [place] [address] UREA NITROGEN/CREATININE (MASS RATIO) IN SER/PLAS 16.2 Normal [facility] Comment on above: Performed By: #### L [id number] ####[facility] ([facility])[address] [place] [address] HEMOGLOBIN AND HEMATOCRIT, B LOODon 02-20-2025 Hematocrit (Bld) [Volume fraction] 42.9 % Normal 39.0-50.0 [facility] Comment on above: Performed By: #### L [id number] ####[facility] ([facility])[address] [place] [address] Hemoglobin (Bld) [Mass/Vol] 14.8 g/dL Normal 13.0-17.0 [facility] Comment on above: Performed By: #### L [id number] ####[facility] ([facility])[address] [place] [address] 30on 02-19-2025 30 Normal [facility] ANTI-XA (HEPARIN LEVEL)on HEPARIN UNFRACTIONATED (U/ML) IN PPP BY CHROMOGENIC METHOD 0.54 IU/mL Normal 0.3-0.7 [facility] Comment on above: Result Comment: [place] roxaban and Apixaban will interfere with the anti Xa assay used to monitor UFH and LMWH. Performed By: #### L [id number] ####[facility] ([facility])[address] [place] [address] HEPARIN UNFRACTIONATED (U/ML) IN PPP BY CHROMOGENIC METHOD 0.41 IU/mL Normal 0.3-0.7 [facility] Comment on above: Order Comment: Ok to draw AM labs at this timeCheck anti-Xa level every 6 hours while on heparin infusion, or per protocol. Result Comment: [place] roxaban and Apixaban will interfere with the anti Xa assay used to monitor UFH and LMWH. Performed By: #### L [id number] ####[facility] ([facility])[address] [place] [address] APTTon 02-19-2025 ACTIVATED PARTIAL THROMBOPLASTIN TIME IN PPP BY COAGULATION ASSAY 154.5 Seconds Critically high 25.0-35.0 [facility] Comment on above: Result Comment: Clin ical significance of the APTT is questionable in the presence of heparin. Performed By: #### L [id number] ####[facility] (BEAKER)[address] [place] [address] ACTIVATED PARTIAL THROMBOPLASTIN TIME IN PPP BY COAGULATION ASSAY 84.7 Seconds High 25.0-35.0 [facility] Comment on above: Order Comment: Check aPTT every 6 hours while on heparin infusion, or per protocol. Result Comment: Clin ical significance of the APTT is questionable in the presence of heparin. Performed By: #### L [id number] ####[facility] ([facility] [place] [place] [address] BASIC METABOLIC PANELon 08-2 Anion gap [Moles/Vol] 12 mmol/L Normal 7-20 [facility] Comment on above: Performed By: #### L [id number] ####[facility] ([facility] [place])[address] [place] [address] Calcium [Mass/Vol] 8.3 mg/dL Low 8.6-10.3 [facility] Comment on above: Performed By: #### L [id number] ####[facility] (BEAKER)[address] [place] [address] Chloride [Moles/Vol] 108 mmol/L High 98-107 [facility] Comment on above: Performed By: #### L [id number] ####[facility] ([facility]ER)[address] [place] [id number] CO2 [Moles/Vol] 25 mmol/L Normal 21-31 [facility] Comment on above: Performed By: #### L [id number] ####[facility] (BEAKER)[address] [place] [address] Creatinine [Mass/Vol] 1.07 mg/dL Normal 0.70-1.30 [facility] Comment on above: Performed By: #### L [id number] ####[facility] (BEAKER)[address] [place] [address] GLOMERULAR FILTRATION RATE ML/MIN/1.73 SQ M.PREDICTED 80.4 mL/min/1.73m*2 Normal >60.[address] [facility] Comment on above: Result Comment: [facility]???s estimated glomerular filtration rate (eGFR) will no [...] of individuals. Performed By: #### L [id number] ####[facility] ([facility])[address] [place] [address] Glucose [Mass/Vol] 75 mg/dL Normal 70-100 [facility] Comment on above: Performed By: #### L [id number] ####[facility] ([facility])[address] [place] [address] Potassium [Moles/Vol] 3.8 mmol/L Normal 3.5-5.1 [facility] Comment on above: Performed By: #### L [id number] ####[facility] ([facility])[address] [place] [address] Sodium [Moles/Vol] 141 mmol/L Normal 136-145 [facility] Comment on above: Performed By: #### L [id number] ####[facility] ([facility] [place] [address] Urea nitrogen [Mass/Vol] 19 mg/dL Normal 7-25 [facility] Comment on above: Performed By: #### L [id number] ####[facility] ([facility])[address] [facility] [place] [address] UREA NITROGEN/CREATININE (MASS RATIO) IN SER/PLAS 17.8 Normal [facility] Comment on above: Performed By: #### L [id number] ####[facility] ([facility])[address] [place] [address] CBCon 08-22-2025 Erythrocyte distribution width (RBC) [Ratio] 15.0 % Normal 11.5-15.0 [facility] Comment on above: Performed By: #### L [id number] ####[facility] (BEAKER)[address] [place] [address] ERYTHROCYTE MEAN CORPUSCULAR HEMOGLOBIN CONCENTRATION (G/DL) BY AUTOMATED 34.0 g/dL Normal 32.0-35.[address] [facility] Comment on above: Performed By: #### L [id number] ####[facility] ([facility] [place] [address] Hematocrit (Bld) [Volume fraction] 40.9 % Normal 39.0-50.0 [facility] Comment on above: Performed By: #### L [id number] ####[facility] (BEAKER)[address] [place] [address] Hemoglobin (Bld) [Mass/Vol] 13.9 g/dL Normal 13.0-17.0 [facility] Comment on above: Performed By: #### L [id number] ####[facility] (BEAKER)[address] [place] [address] MCH (RBC) [Entitic mass] 31.2 pg Normal 27.0-33.0 [facility] Comment on above: Performed By: #### L [id number] ####[facility] (BEAKER)[address] [place] [address] MCV (RBC) [Entitic vol] 91.9 fL Normal 82.0-98.0 [facility] Comment on above: Performed By: #### L [id number] ####[facility] (BEAKER)[address] [place] [address] PLATELETS (10*3/UL) IN BLOOD AUTOMATED COUNT 165 10*3/uL Normal 150-400 [facility] Comment on above: Performed By: #### L [id number] ####[facility] (BEAKER)[address] [place] [address] RBC (Bld) [#/Vol] 4.45 10*6/uL Normal 4.20-5.70 [facility] Comment on above: Performed By: #### L [id number] ####[facility] ([facility] [place] [address] WBC (Bld) [#/Vol] 5.92 10*3/uL Normal 4.00-10.60 [facility] Comment on above: Performed By: #### L [id number] ####[facility] ([facility] [place] [address] CONSULTon 02-19-2025 CONSULT Normal [facility] CONSULT Normal [facility] HIGH SENSITIVITY TROPONIN Io n 02-19-2025 HS TROPONIN I (NG/L) 30 ng/L High <20 [facility] Comment on above: Performed By: #### L [id number] ####[facility] ([facility])[address] [place] [address] HS TROPONIN I (NG/L) 29 ng/L High <20 [facility] Comment on above: Performed By: #### L [id number] ####[facility] (BEAKER)[address] [place] [address] HS TROPONIN I (NG/L) 30 ng/L High <20 [facility] Comment on above: Performed By: #### L [id number] ####[facility] (BEAKER)[address] [facility] [place] [address] HS TROPONIN I (NG/L) 27 ng/L High <20 [facility] Comment on above: Performed By: #### L [id number] ####[facility] (BEAKER)[address] [facility] [place] [address] HPon 02-19-2025 HP Normal [facility] MAGNESIUMon 02-19-2025 Magnesium [Mass/Vol] 1.9 mg/dL Normal 1.9-2.7 [facility] Comment on above: Performed By: #### L [id number] ####[facility] ([facility]AKER)[address] [facility] [place] [address] 30on 02-18-2025 30 Normal [facility] ANTI-XA (HEPARIN LEVEL)on HEPARIN UNFRACTIONATED (U/ML) IN PPP BY CHROMOGENIC METHOD <0.10 Invalid Interpretation Code 0.3-0.7 [facility] Comment on above: Order Comment: Check anti-Xa level every 6 hours while on heparin infusion, or per protocol. Result Comment: Linda roxaban and Apixaban will interfere with the anti Xa assay used to monitor UFH and LMWH. Performed By: #### L [id number] ####[facility] ([facility])[address] [place] [address] APTTon 02-18-2025 ACTIVATED PARTIAL THROMBOPLASTIN TIME IN PPP BY COAGULATION ASSAY 32.7 Seconds Normal 25.0-35.0 [facility] Comment on above: Order Comment: Basel ine aPTT before initiating heparin infusion. Result Comment: Clin ical significance of the APTT is questionable in the presence of heparin. Performed By: #### L [id number] ####[facility] ([facility])[address] [place] [address] B-TYPE NATRIURETIC PEPTIDEon 02-18-2025 Natriuretic peptide B (Bld) [Mass/Vol] 491 pg/mL High 0-100 [facility] Comment on above: Performed By: #### L [id number] ####[facility] ([facility])[address] [place] [address] CBC WITH AUTO DIFFERENTIALon 02-18-2025 Basophils (Bld) [#/Vol] 0.02 10*3/uL Normal 0.00-0.20 [facility] Comment on above: Performed By: #### L [id number] ####[facility] ([facility])[address] [place] [address] Basophils/100 WBC (Bld) 0.3 % Normal 0.0-1.0 [facility] Comment on above: Performed By: #### L [id number] ####[facility] ([facility])[address] [place] [address] Eosinophils (Bld) [#/Vol] 0.08 10*3/uL Normal 0.00-0.50 [facility] Comment on above: Performed By: #### L [id number] ####[facility] (BEAKER)[address] [place] [address] Eosinophils/100 WBC (Bld) 1.1 % Normal 0.0-6.0 [facility] Comment on above: Performed By: #### L [id number] ####[facility] ([facility])[address] [place] [address] Erythrocyte distribution width (RBC) [Ratio] 15.1 % High 11.5-15.0 [facility] Comment on above: Performed By: #### L [id number] ####[facility] ([facility])[address] [place] [address] ERYTHROCYTE MEAN CORPUSCULAR HEMOGLOBIN CONCENTRATION (G/DL) BY AUTOMATED 34.5 g/dL Normal 32.0-35.[address] [facility] Comment on above: Performed By: #### L [id number] ####[facility] ([facility])[address] [place] [address] Hematocrit (Bld) [Volume fraction] 41.7 % Normal 39.0-50.0 [facility] Comment on above: Performed By: #### L [id number] ####[facility] (BEAKER)[address] [place] [address] Hemoglobin (Bld) [Mass/Vol] 14.4 g/dL Normal 13.0-17.0 [facility] Comment on above: Performed By: #### L [id number] ####[facility] (BEAKER)[address] [place] [address] Immature granulocytes (Bld) [#/Vol] 0.03 10*3/uL Normal 0.00-0.20 [facility] Comment on above: Performed By: #### L [id number] ####[facility] (BEAKER)[address] [place] [address] Immature granulocytes/100 WBC (Bld) 0.4 % Normal 0.0-1.0 [facility] Comment on above: Performed By: #### L [id number] ####[facility] ([facility])[address] [place] [address] Lymphocytes (Bld) [#/Vol] 1.51 10*3/uL Normal 1.20-4.00 [facility] Comment on above: Performed By: #### L [id number] ####[facility] ([facility])[address] [place] [address] Lymphocytes/100 WBC (Bld) 20.2 % Normal 20.0-45.0 [facility] Comment on above: Performed By: #### L [id number] ####[facility] ([facility])[address] [place] [address] MCH (RBC) [Entitic mass] 31.5 pg Normal 27.0-33.0 [facility] Comment on above: Performed By: #### L [id number] ####[facility] ([facility])[address] [place] [address] MCV (RBC) [Entitic vol] 91.2 fL Normal 82.0-98.0 [facility] Comment on above: Performed By: #### L [id number] ####[facility] ([facility])[address] [place] [address] Monocytes (Bld) [#/Vol] 0.64 10*3/uL Normal 0.10-1.00 [facility] Comment on above: Performed By: #### L [id number] ####[facility] ([facility])[address] [place] [address] Monocytes/100 WBC (Bld) 8.5 % Normal 5.0-12.0 [facility] Comment on above: Performed By: #### L [id number] ####[facility] ([facility])[address] [place] [address] Neutrophils (Bld) [#/Vol] 5.21 10*3/uL Normal 1.60-7.60 [facility] Comment on above: Performed By: #### L [id number] ####[facility] ([facility])[address] [place] [address] Neutrophils/100 WBC (Bld) 69.5 % Normal 40.0-72.0 [facility] Comment on above: Performed By: #### L [id number] ####[facility] ([facility])[address] [place] [address] NRBC (PER 100 WBCS) BY AUTOMATED COUNT 0.0 % Normal 0 [facility] Comment on above: Performed By: #### L [id number] ####[facility] ([facility])[address] [place] [address] PLATELETS (10*3/UL) IN BLOOD AUTOMATED COUNT 195 10*3/uL Normal 150-400 [facility] Comment on above: Performed By: #### L [id number] ####[facility] ([facility])[address] [place] [address] RBC (Bld) [#/Vol] 4.57 10*6/uL Normal 4.20-5.70 [facility] Comment on above: Performed By: #### L [id number] ####[facility] ([facility])[address] [place] [address] WBC (Bld) [#/Vol] 7.49 10*3/uL Normal 4.00-10.60 [facility] Comment on above: Performed By: #### L [id number] ####[facility] ([facility])[address] [place] [address] COMPREHENSIVE METABOLIC PANE Rogelio 02-18-2025 Albumin [Mass/Vol] 3.6 g/dL Normal 3.5-5.7 [facility] Comment on above: Performed By: #### L [id number] ####[facility] ([facility] [place] [address] ALP [Catalytic activity/Vol] 58 U/L Normal 34-104 [facility] Comment on above: Performed By: #### L [id number] ####[facility] ([facility])[address] [place] [address] ALT [Catalytic activity/Vol] 30 U/L Normal 7-52 [facility] Comment on above: Performed By: #### L [id number] ####[facility] (BEAKER)[address] [place] [address] Anion gap [Moles/Vol] 11 mmol/L Normal 7-20 [facility] Comment on above: Performed By: #### L [id number] ####[facility] ([facility])[address] [place] [address] AST [Catalytic activity/Vol] 19 U/L Normal 13-39 [facility] Comment on above: Performed By: #### L [id number] ####[facility] ([facility])[address] [place] [address] Bilirubin [Mass/Vol] 3.6 mg/dL High 0.3-1.0 [facility] Comment on above: Performed By: #### L [id number] ####[facility] ([facility])[address] [place] [address] Calcium [Mass/Vol] 8.5 mg/dL Low 8.6-10.3 [facility] Comment on above: Performed By: #### L [id number] ####[facility] ([facility])[address] [place] [address] Chloride [Moles/Vol] 108 mmol/L High 98-107 [facility] Comment on above: Performed By: #### L [id number] ####[facility] ([facility])[address] [place] [address] CO2 [Moles/Vol] 21 mmol/L Normal 21-31 [facility] Comment on above: Performed By: #### L [id number] ####[facility] (BEAKER)[address] [place] [address] Creatinine [Mass/Vol] 1.02 mg/dL Normal 0.70-1.30 [facility] Comment on above: Performed By: #### L [id number] ####[facility] ([facility] [place] [address] GLOMERULAR FILTRATION RATE ML/MIN/1.73 SQ M.PREDICTED 85.2 mL/min/1.73m*2 Normal >60.[address] [facility] Comment on above: Result Comment: [facility]???s estimated glomerular filtration rate (eGFR) will no [...] of individuals. Performed By: #### L [id number] ####[facility] ([facility])[address] [place] [address] Glucose [Mass/Vol] 88 mg/dL Normal 70-100 [facility] Comment on above: Performed By: #### L [id number] ####[facility] ([facility])[address] [facility] [place] [address] Potassium [Moles/Vol] 4.0 mmol/L Normal 3.5-5.1 [facility] Comment on above: Performed By: #### L [id number] ####[facility] ([facility])[address] [place] [address] Protein [Mass/Vol] 5.5 g/dL Low 6.0-8.3 [facility] Comment on above: Performed By: #### L [id number] ####[facility] ([facility])[address] [place] [address] Sodium [Moles/Vol] 136 mmol/L Normal 136-145 [facility] Comment on above: Performed By: #### L [id number] ####[facility] ([facility])[address] [place] [address] Urea nitrogen [Mass/Vol] 21 mg/dL Normal 7-25 [facility] Comment on above: Performed By: #### L [id number] ####[facility] (BEAKER)[address] [place] [address] UREA NITROGEN/CREATININE (MASS RATIO) IN SER/PLAS 20.6 Normal [facility] Comment on above: Performed By: #### L [id number] ####[facility] ([facility] [place] [address] HIGH SENSITIVITY TROPONIN Io n 02-18-2025 HS TROPONIN I (NG/L) 27 ng/L High <20 [facility] Comment on above: Performed By: #### L [id number] ####[facility] ([facility])[address] [place] [address] HPon 02-18-2025 HP Normal [facility] LACTIC ACID, PLASMAon 2024 LACTATE (MMOL/L) IN SER/PLAS 1.1 mmol/L Normal 0.5-2.2 [facility] Comment on above: Performed By: #### L [id number] ####[facility] ([facility])[address] [place] [address] MAGNESIUMon 02-18-2025 Magnesium [Mass/Vol] 2.1 mg/dL Normal 1.9-2.7 [facility] Comment on above: Performed By: #### L [id number] ####[facility] ([facility])[address] [place] [address] Outside Recordson 02-18-2025 Outside Records [id number]#1 .00OTGTIFF Normal [facility] Outside Records [id number]#1 .00OTGTIFF Normal [facility] Outside Records [id number]#1 .00OTGTIFF Normal [facility] Outside Records [id number]#1 .00OTGTIFF Normal [facility] Outside Records [id number]#1 .00OTGTIFF Normal [facility] Outside Records [id number]#1 .00OTGTIFF [facility] PHOSPHORUSon 02-18-2025 Magnesium [Mass/Vol] 2.7 mg/dL Normal 2.5-5.0 [facility] Comment on above: Performed By: #### L [id number] ####[facility] ([employer])[address] [place] [address] PROTIME-INRon 02-18-2025 INR IN PPP BY COAGULATION ASSAY 1.47 High 0.90-1.10 [facility] Comment on above: Result Comment: ACCC P [...] CHEST 1995;108:[id number]. Performed By: #### L [id number] ####[facility] ([employer])[address] [place] [address] PROTHROMBIN TIME (PT) IN PPP BY COAGULATION ASSAY 17.9 Seconds High 12.3-14.8 [facility] Comment on above: Performed By: #### L [id number] ####[facility] [employer])[address] [place] [address] TSH3 REFLEX TO FT4on 025 THYROTROPIN (MIU/L) IN SER/PLAS BY DETECTION LIMIT <= 0.05 MIU/L 3.22 mIU/L Normal 0.34-5.60 [facility] Comment on above: Performed By: #### L [id number] ####[facility] (BEAKER)[address] [place] [address] Lab - Other Lab Resultson Lab - Other Lab Results [id number]#1 .00OTGTIFF [facility] Orders Onlyon 06-01-2024 Orders Only Normal [facility] Lab - Other Lab Resultson Lab - Other Lab Results [id number]#1.00O TGTIFF [facility] Patient Handouton 05-05-2024 Patient Handout [id number]#1. 00OTGTIFF [facility] Patient Handout [id number]#1. [facility] AUTO DIFFon 05-09-2022 BASO # 0.0 103/ul Normal 0.0-0.1 [facility] Comment on above: Performed By: #### C BC #### [facility] [address] [address] [address] Anny Corcoran Basophils/100 WBC (Bld) 0.4 % Normal 0.2-2.0 [facility] Comment on above: Performed By: #### C BC #### [facility] [address] [address] [address] Anny Corcoran EO # 0.1 103/ul Normal 0.0-0.7 [facility] Comment on above: Performed By: #### C BC #### [facility] [address] [address] [address] Anny Corcoran Eosinophils/100 WBC (Bld) 1.5 % Normal 0.9-7.0 [facility] Comment on above: Performed By: #### C BC #### [facility] [address] [place] [address] Dr. Anny Corcoran Erythrocyte distribution width (RBC) [Ratio] 14.1 % Normal 11.0-15.0 [facility] Comment on above: Performed By: #### C BC #### [facility] [address] [place] [address] Dr. Anny Corcoran Hematocrit (Bld) [Volume fraction] 37.6 % Critically low 42.0-54.0 [facility] Comment on above: Performed By: #### C BC #### [facility] [address] [place] [address] Dr. Anny Corcoran Hemoglobin (Bld) [Mass/Vol] 12.9 g/dL Critically low 14.0-18.0 [facility] Comment on above: Performed By: #### C BC #### [facility] [address] [place] [address] Dr. Anny Corcoran IG # 0.01 10e3/ul Normal 0.00-0.03 [facility] Comment on above: Performed By: #### C BC #### [facility] [address] [place] [address] Dr. Anny Corcoran IG % 0.2 % Normal 0.0-0.5 [facility] Comment on above: Performed By: #### C BC #### [facility] [address] [place] [address] Dr. Anny Corcoran LYMPH # 1.1 103/ul Critically low 1.2-3.8 [facility] Comment on above: Performed By: #### C BC #### [facility] [address] [place] [address] Dr. Anny Corcoran Lymphocytes/100 WBC (Bld) 21.8 % Normal 20.5-60.0 [facility] Comment on above: Performed By: #### C BC #### [facility] [address] [place] [address] Dr. Anny Corcoran MANUAL DIFF REQ NO Normal [facility] Comment on above: Performed By: #### C BC #### [facility] [address] [place] [address] Dr. Anny Corcoran MCH (RBC) [Entitic mass] 31.2 pg Normal 25.9-34.0 [facility] Comment on above: Performed By: #### C BC #### [facility] [address] [place] [address] Dr. Anny Corcoran MCHC (RBC) [Mass/Vol] 34.3 g/dL Normal 29.9-35.2 [facility] Comment on above: Performed By: #### C BC #### [facility] [address] [place] [address] Dr. Anny Corcoran MCV (RBC) [Entitic vol] 90.8 fL Normal 80.0-94.0 [facility] Comment on above: Performed By: #### C BC #### [facility] [address] [place] [address] Dr. Anny Corcoran MONO # 0.4 103/ul Normal 0.3-0.8 [facility] Comment on above: Performed By: #### C BC #### [facility] [address] [place] [address] Dr. Anny Corcoran Monocytes/100 WBC (Bld) 8.5 % Normal 1.7-12.0 [facility] Comment on above: Performed By: #### C BC #### [facility] [address] [place] [address] Dr. Anny Corcoran NEUT # 3.5 103/ul Normal 1.4-6.5 [facility] Comment on above: Performed By: #### C BC #### [facility] [address] [place] [address] Dr. Anny Corcoran Neutrophils/100 WBC (Bld) 67.6 % Normal 43.0-75.0 [facility] Comment on above: Performed By: #### C BC #### [facility] [address] [place] [address] Dr. Anny Corcoran Platelet mean volume (Bld) [Entitic vol] 9.4 fL Critically low 9.5-13.5 [facility] Comment on above: Performed By: #### C BC #### [facility] [address] [address] [address] Anny Corcoran PLT 209 103/ul Normal 150-450 [facility] Comment on above: Performed By: #### C BC #### [facility] [address] [address] [address] Anny Corcoran RBC 4.14 106/ul Critically low 4.70-6.10 [facility] Comment on above: Performed By: #### C BC #### [facility] [address] [address] [address] Anny Corcoran WBC 5.2 103/ul Normal 4.0-11.0 [facility] Comment on above: Performed By: #### C BC #### [facility] [address] [address] [address] Anny Corcoran LIPID PROFILEon 05-09-2022 CHOL-HDL RATIO NORM SEE BELOW Normal [facility] Comment on above: Result Comment: 3.3 - 4.4 LOW RISK 4.4 - 7.1 AVERAGE RISK 7.1 - 11.0 MODERATE RISK >11.0 HIGH RISK Performed By: #### L IPID, CMP #### [facility] [address] [place] [address] Dr. Anny Corcoran Cholesterol [Mass/Vol] 103 mg/dL Normal <=200 [facility] Comment on above: Performed By: #### L IPID, CMP #### [facility] [address] [address] [address] Anny Corcoran Cholesterol in HDL [Mass/Vol] 54 mg/dL Normal 40-60 [facility] Comment on above: Performed By: #### L IPID, CMP #### [facility] [address] [address] [address] Anny Corcoran Cholesterol in LDL [Mass/Vol] 43.8 mg/dL Normal [facility] Comment on above: Performed By: #### L IPID, CMP #### [facility] [address] [address] [address] Anny Corcoran Cholesterol.total/C holesterol in HDL [Mass ratio] 1.9 {ratio} Normal [facility] Comment on above: Performed By: #### L IPID, CMP #### [facility] [address] [address] [address] Anny Corcoran HDL NORMAL > or = 60 mg/dl - LO W CARDIOVASCULAR RISK <40 mg/dl - HIGH CARDIOVASCULAR RISK Normal [facility] Comment on above: Performed By: #### L IPID, CMP #### [facility] [address] [address] [address] Anny Corcoran LDL CALC NORMAL SEE BELOW Normal [facility] Comment on above: Result Comment: <100 mg/dl OPTIMAL 100 - 129 mg/dl NEAR OR ABOVE OPTIMAL 130 - 159 mg/dl BORDERLINE HIGH 160 - 189 mg/dl HIGH >190 mg/dl VERY HIGH Performed By: #### L IPID, CMP #### [facility] [address] [place] [address] Dr. Anny Corcoran Triglyceride [Mass/Vol] 26 mg/dL Normal <=150 [facility] Comment on above: Performed By: #### L IPID, CMP #### [facility] [address] [address] [address] Anny Corcoran VLDL CALC 5.2 mg/dL Normal [facility] Comment on above: Performed By: #### L IPID, CMP #### [facility] [address] [address] [address] Anny Corcoran PROF 14(COMP METB)on 022 Albumin [Mass/Vol] 4.0 g/dL Normal 3.4-5.0 [facility] Comment on above: Performed By: #### L IPID, CMP #### [facility] [address] [address] [address] Anny Corcoran Albumin/Globulin [Mass ratio] 1.4 {ratio} Normal [facility] Comment on above: Performed By: #### L IPID, CMP #### [facility] [address] [address] [address] Anny Corcoran ALP [Catalytic activity/Vol] 106 U/L Normal 46-116 [facility] Comment on above: Performed By: #### L IPID, CMP #### [facility] [address] [address] [address] Anny Corcoran ALT [Catalytic activity/Vol] 28 U/L Normal 16-63 [facility] Comment on above: Performed By: #### L IPID, CMP #### [facility] [address] [address] [address] Anny Corcoran Anion gap [Moles/Vol] 7.3 mmol/L Normal [facility] Comment on above: Performed By: #### L IPID, CMP #### [facility] [address] [address] [address] Anny Corcoran AST [Catalytic activity/Vol] 23 U/L Normal 15-37 [facility] Comment on above: Performed By: #### L IPID, CMP #### [facility] [address] [address] [address] Anny Corcoran Bilirubin [Mass/Vol] 2.7 mg/dL Critically high 0.2-1.0 [facility] Comment on above: Performed By: #### L IPID, CMP #### [facility] [address] [address] [address] Anny Corcoran Calcium [Mass/Vol] 9.0 mg/dL Normal 8.5-10.1 [facility] Comment on above: Performed By: #### L IPID, CMP #### [facility] [address] [address] [address] Anny Corcoran Chloride [Moles/Vol] 104 mmol/L Normal 98-107 [facility] Comment on above: Performed By: #### L IPID, CMP #### [facility] [address] [address] [address] Anny Corcoran CO2 [Moles/Vol] 32.5 mmol/L Critically high 21.0-32.0 [facility] Comment on above: Performed By: #### L IPID, CMP #### [facility] [address] [address] [address] Anny Corcoran Creatinine [Mass/Vol] 0.78 mg/dL Normal 0.70-1.30 [facility] Comment on above: Performed By: #### L IPID, CMP #### [facility] [address] [address] [address] Anny Corcoran EGFR-AF WELSH >60 Normal >=60 [facility] Comment on above: Performed By: #### L IPID, CMP #### [facility] [address] [address] [address] Anny Corcoran EGFR-NON AF WELSH >60 Normal >=60 [facility] Comment on above: Performed By: #### L IPID, CMP #### [facility] [address] [address] [address] Anny Corcoran Globulin (S) [Mass/Vol] 2.8 g/dL Normal [facility] Comment on above: Performed By: #### L IPID, CMP #### [facility] [address] [address] [address] Anny Corcoran Glucose [Mass/Vol] 86 mg/dL Normal 74-106 [facility] Comment on above: Performed By: #### L IPID, CMP #### [facility] [address] [address] [address] Anny Corcoran Potassium [Moles/Vol] 3.8 mmol/L Normal 3.5-5.1 [facility] Comment on above: Performed By: #### L IPID, CMP #### [facility] [address] [address] [address] Anny Corcoran Protein [Mass/Vol] 6.8 g/dL Normal 6.4-8.2 [facility] Comment on above: Performed By: #### L IPID, CMP #### [facility] [address] [address] [address] Anny Corcoran Sodium [Moles/Vol] 140 mmol/L Normal 136-145 [facility] Comment on above: Performed By: #### L IPID, CMP #### [facility] [address] [address] [address] Anny Corcoran Urea nitrogen [Mass/Vol] 19.0 mg/dL Critically high 7.0-18.0 [facility] Comment on above: Performed By: #### L IPID, CMP #### [facility] [address] [address] [address] Anny Corcoran Urea nitrogen/Creatinine [Mass ratio] 24.4 mg/mg Normal [facility] Comment on above: Performed By: #### L IPID, CMP #### [facility] [address] [address] [address] Anny Corcoran LYME DISEASE AB, TOTAL AND I GM W/WB REFLon 06-01-2021 Lyme Disease Ab, Quant, IgM <0.80 Normal 0.00-0.79 [facility] Comment on above: Result Comment: Nega tive <0.80 Equivocal 0.80 - 1.19 Positive >1.19 . IgM levels may peak at 3-6 weeks post infection, then gradually decline. Performed By: #### L YMA #### [facility] [address] [address] [address] Anny Corcoran Lyme IgG/IgM Ab <0.91 Normal 0.00-0.90 [facility] Comment on above: Result Comment: Nega tive <0.91 Equivocal 0.91 - 1.09 Positive >1.09 Performed By: #### L YMA #### [facility] [address] [place] [address] HEAD WO CONon [...] by: CANDIS MENDEZ Date: 2021-05-21 12:48 Normal [facility] Encounters Encounter Date Encounter Type Care Provider Facility Start: 03-10-2025 End: 03-11-2025 ambulatory CEDARIA REEDER [facility] Start: 03-04-2025 Evaluation and management of inpatient RUTH [facility] Start: 03-04-2025 Evaluation and management of inpatient SHEELA MARINELLI [facility] Start: 03-03-2025 Evaluation and management of inpatient KARINA MOULTON [facility] Start: 03-03-2025 Evaluation and management of inpatient RUTH [facility] Start: 03-02-2025 Evaluation and management of inpatient RUTH [facility] Start: 02-25-2025 Evaluation and management of inpatient CATARINA SANFORD [facility] Start: 02-24-2025 [facility]: 02-23-[facility]25 Evaluation and management of inpatient RUTH [facility] Start: 02-22-2025 Evaluation and management of inpatient RUTH [facility] Start: 02-22-2025 Evaluation and management of inpatient RUTH [facility] Start: 02-22-2025 [facility] Start: 02-21-2025 Evaluation and management of inpatient IMELDA STACK [facility] Start: 02-19-2025 Evaluation and management of inpatient SARAH REDMAN [facility] Start: 02-18-2025 [facility] Start: 02-18-2025 End: 03-05-2025 Evaluation and management of inpatient SIMBA STANTON [facility] Start: 01-28-2025 ambulatory DO LAUREANO LINDER Faci lity:[facility] Start: 10-29-2024 End: 10-29-2024 ambulatory DO LAUREANO LINDER Facility:[facility] Start: 06-01-2024 End: 06-01-2024 ambulatory EHAB [facility] Start: 04-30-2024 End: 04-30-2024 ambulatory LAUREANO LINDER Facility:[facility] Start: 05-14-2022 Encounter for genera l adult medical examination without abnormal findings DR LAUREANO LINDER [facility] Start: 05-09-2022 End: 05-10-[address] LAUREANO LINDER Facility:[facility] Start: 05-09-2022 End: 05-10-2022 Encounter for general adult medical examination without abnormal findings DR LAUREANO LINDER Facility:[facility] Start: 05-30-2021 End: 05-31-[address] LAUREANO LINDER Facility:[facility] Start: 05-21-2021 End: 05-21-[address] KINGSLEY BARNETT Facility:[facility] Procedures Date Procedure Procedure Detail Performing Clinician Start: 03-10-2025 Follow-up visit NI PHER FEROZ Start: 06-01-2024 Follow-up visit NI PHER FEROZ Start: 05-09-[address] NELIA BARNETT Comment on above: Performed By: #### P SAD #### [facility] [address] [place] [address] Dr. Anny Corcoran Payers Date Payer Category Payer Unknown [id number] 2012 Unknown [id number] 1966 Unknown [id number] 2.16.84 [id number] 1966 Unknown [id number] 2.16.84 [id number] 1966 Unknown [id number] 2.16.84 [id number] 1966 Unknown [id number] 2.16.8 [id number] 1966 Unknown [id number] 2.16.8 [id number] 1966 Unknown [id number] 2.16.8 [id number] Clinical Notes 06-01-2024 to 03-11-2025 Note Date & Type Note Facility 03-11-2025 Note [facility] 03-10-2025 Note [facility] 03-05-2025 Note [facility] 03-05-2025 Note Discharge Planning As per RUCC RN patient is agreeable to [facility]. [facility] is able to accept. Added to AVS. [facility] 03-05-2025 Note [facility] 03-05-2025 Note [facility] 03-04-2025 Note [facility] 03-04-2025 Note [facility] 03-04-2025 Note [facility] 03-04-2025 Note [facility] 03-03-2025 Note [facility] 03-03-2025 Note [facility] 03-03-2025 Note [facility] 03-03-2025 Note [facility] 03-03-2025 Note [facility] 03-03-2025 Note [facility] 03-03-2025 Note [facility] 03-02-2025 Note [facility] 03-02-2025 Note [facility] 03-02-2025 Note [facility] 03-01-2025 Note [facility] 03-01-2025 Note [facility] 03-01-2025 Note [facility] 03-01-2025 Note [facility] 02-28-2025 Note [facility] 02-27-2025 Note [facility] 02-27-2025 Note [facility] 02-26-2025 Note [facility] 02-26-2025 Note [facility] 02-26-2025 Note [facility] 02-26-2025 Note [facility] 02-26-2025 Note [facility] 02-26-2025 Note [facility] 02-25-2025 Note [facility] 02-25-2025 Note [facility] 02-25-2025 Note [facility] 02-25-2025 Note [facility] 02-25-2025 Note [facility] 02-25-2025 Note [facility] 02-25-2025 Note [facility] 02-25-2025 Note [facility] 02-24-2025 Note [facility] 02-24-2025 Note [facility] 02-24-2025 Note [facility] 02-24-2025 Note [facility] 02-24-2025 Note [facility] 02-24-2025 Note [facility] 02-23-2025 Note [facility] 02-23-2025 Note [facility] 02-23-2025 Note [facility] 02-23-2025 Note [facility] 02-22-2025 Note [facility] 02-22-2025 Note [facility] 02-22-2025 Note - Seen on abdominal rectus abdominal muscles on CT abd/pelvis 02/21 - L noted to be bigger than R - Consider holding heparin - Hgb has been stable [facility] 02-22-2025 Note - Stable [facility] 02-22-2025 Note - Stable, Patient cu rrently not using CPAP [facility] 02-22-2025 Note [facility] 02-22-2025 Note - Valsartan and spir onolactone held - Blood pressure has been rather hypotensive [facility] 02-22-2025 Note [facility] 02-22-2025 Note [facility] 02-22-2025 Note [facility] 02-22-2025 Note [facility] 02-21-2025 Note [facility] 02-21-2025 Note - Continue current v alsartan, spironolactone and Toprol-XL for GDMT - Blood pressure has been within acceptable range on 8/24 AM [facility] 02-21-2025 Note [facility] 02-21-2025 Note [facility] 02-21-2025 Note [facility] 02-21-2025 Note - Stable [facility] 02-21-2025 Note - Stable, Patient cu rrently not using CPAP [facility] 02-21-2025 Note [facility] 02-20-2025 Note [facility] 02-20-2025 Note - Stable [facility] 02-20-2025 Note - Stable,Patient cur rently not using CPAP [facility] 02-20-2025 Note - Continue current l isinopril and Toprol-XL [facility] 02-20-2025 Note [facility] 02-20-2025 Note [facility] 02-20-2025 Note [facility] 02-19-2025 Note - Stable [facility] 02-19-2025 Note - Stable,Patient cur rently not using CPAP [facility] 02-19-2025 Note - Continue current l isinopril and Toprol-XL [facility] 02-19-2025 Note [facility] 02-19-2025 Note [facility] 02-19-2025 Note [facility] 02-19-2025 Note [facility] 02-19-2025 Note A/[facility]-18-[facility] - Cardiology consult [facility] 02-18-2025 Note - Stable [facility] 02-18-2025 Note - Continue labetalol [facility] 02-18-2025 Note [facility] 02-18-2025 Note - Small pericardial effusion noted on echocardiogram, cardiology consult [facility] 02-18-2025 Note [facility] 06-01-2024 Note [facility] Summary Purpose Family History No Family History Records FoundNo Family History Records FoundNo Family History Records Found Advance Directives No Advanced Directives Records FoundNo Advanced Directives Records FoundNo Advanced Directives Records Found Additional Source Comments (unrecognized sect ion and content) No Status Records FoundNo Status Records FoundNo Status Records Found INFORMATION SOURCE (unrecogn ized section and content) DATE CREATED AUTHOR 05/14/[address] [facility] DATE CREATED AUTHOR AUTHOR'S ORGANIZ ATION 03/09/2025 [facility] DATE CREATED AUTHOR AUTHOR'S ORGANIZ ATION 03/12/2025 [facility] FOR RECORDS PERTAINING TO PATIENTS WHO ARE [...] BE BASED ON THE PRIMARY CLINICAL RECORDS. [employer] [facility]. provides no warranty or guarantee of the accuracy or completeness of information in this document.
[2025-03-12 15:34] LABS: Alanine Aminotransferase 19 U/L (16-63); Albumin Globulin Ratio 0.8; Albumin Level 3.0 g/dL (3.4-5.0); Alkaline Phosphatase 78 U/L (46-116); Anion Gap 13.4; Aspartate Amino Transferase 19 U/L (15-37); Blood Urea Nitrogen 25.0 mg/dL (7.0-18.0); Calcium 8.5 mg/dL (8.5-10.1); Carbon Dioxide 26.0 mmol/L (21.0-32.0); Chloride 101 mmol/L (98-107); Estimated GFR (African America >60 (>=60 mL/min/1.73m^2); Estimated GFR (Non-African Ame 54 (>=60 mL/min/1.73m^2); Globulin 3.8 g/dL; Glucose 120 mg/dL (74-106); Potassium 3.4 mmol/L (3.5-5.1); Sodium 137 mmol/L (136-145); Total Protein 6.8 g/dL (6.4-8.2)
[2025-03-12 16:17] LABS: Hematocrit 29.4 % (42.0-54.0); Hemoglobin 9.6 g/dL (14.0-18.0); Mean Corpuscular HGB Conc 32.7 g/dL (29.9-35.2); Mean Corpuscular Hemoglobin 29.5 pg (25.9-34.0); Mean Corpuscular Volume 90.5 fL (80.0-94.0); Platelet Count 349 10^3/uL (150-450); Red Blood Count 3.25 10^6/uL (4.70-6.10); White Blood Count 12.4 10^3/uL (4.0-11.0)
[2025-03-12 17:43] LABS: Basophils Abs Manual 0.00 10^3/uL (0.00-0.10); Basophils Percent Manual 0.0 % (0.2-2.0); Eosinophils Absolute Manual 0.00 10^3/uL (0.00-0.70); Eosinophils Percent Manual 0.0 % (0.9-7.0); Lymphocytes Absolute Manual 0.86 10^3/uL (1.20-3.80); Lymphocytes Percent Manual 7.0 % (20.5-60.0); Metamyelocytes Absolute Manual 0.12; Monocytes Absolute Manual 0.37 10^3/uL (0.30-0.80); Monocytes Percent Manual 3.0 % (1.7-12.0); Segmented Neut Absolute Manual 11.03 10^3/uL (1.4-6.5); Segmented Neutrophils % Manual 89.0 (43.0-75.0)
== END 2025-03-12 14:47 | disposition home or self-care (01) ==
PROVIDERS: Family Provider Internal Medicine Interventional Cardiology; PCP Family Medicine; Visit Provider Nurse Practitioner Family
DX: I50.22 Chronic systolic (congestive) heart failure (principal); D50.0 Iron deficiency anemia secondary to blood loss (chronic)
CPT/HCPCS: 36415; 80053; 85007; 85027

== ENCOUNTER 2025-03-25 10:00 | Outpatient (OUT) | payer OTHER, SELFPAY ==
--- OUTSIDE RECORDS SUMMARY | 2025-03-25 10:06 | XMS_ITS | CCD ---
Author Organization [facility] Care Team Providers Care Fitness Coach Name Role Phone ANIBAL, DR KINGSLEY Mariee [...] HOUSE, DR TINSLEY Attending Unavailable HOUSE, DR TNISLEY Consulting Unavailable HOUSE, DR TINSLEY Primary Care Unavailable HOUSE, LAUREANO aMnuel Primary Care Unavailable HOUSE, DO LAUREANO Manuel Attending Unavailable HOUSE, DO LAUREANO Manuel Attending Unavailable HOUSE, LAUREANO Manuel Primary Care Unavailable HOUSE, LAUREANO Manuel Primary Care Unavailable HOUSE, DO LAUREANO Maunel Attending Unavailable HOUSE, LAUREANO Manuel Primary Care Unavailable HOUSE, DO LAUREANO Manuel Attending Unavailable SAFI, RUTH Referring Unavailable SAFI, RUTH Referring Unavailable SAFI, RUTH Referring Unavailable CORCORAN, IMELDA CHUL Referring Unavailable PIRKL, SHEELA Referring Unavailable PIRKL, SHEELA Referring Unavailable KENNEY, SAMER J Referring Unavailable ALMAS, SAMAR Referring Unavailable HORANI, SIMBA Referring Unavailable SAFI, RUTH Admitting Unavailable SAFI, RUTH Attending Unavailable KAUSHAL REID Attending Unavailable SAFI, RUTH Referring Unavailable HUMBLE BURGESS Attending Unavailable IZZY HILL Attending Unavail able ELJOE STEINER Attending Unavailable CE POZO Attending Unavailable CATARINA SANFORD Referring Unavailable RATNAM, EDNA Referring Unavailable SAFI, RUTH Referring Unavailable SAFI, RUTH Referring Unavailable COROCRAN, IMELDA CHUL Referring Unavailable SARAH REDMAN Referring Unavailable Problems Active Problems Problem Classification Problem Date Documented Da te Episodic/Chronic Acute and unspecified renal failure (2 sources) Acute kidney failure, unspecified; Translations: [Acute kidney failure, unspecified] Onset: 03-18-2025 Episodic Cardiac dysrhythmias (5 sources) Unspecified atrial fibrillation; Translations: [Paroxysmal atrial fibrillation] Onset: 02-18-2025 Chronic Congestive heart failure; nonhypertensive (4 sources) Chronic systolic (congestive) heart failure; Translations: [Acute systolic (congestive) heart failure] Onset: 02-18-2025 Chronic Coronary atherosclerosis and other heart disease (4 sources) Atherosclerotic heart disease of [place] coronary artery without angina pectoris; Translations: [Unstable angina] Onset: 02-18-2025 Chronic Deficiency and other anemia (2 sources) Iron deficiency anemia secondary to blood loss (chronic); Translations: [Iron deficiency anemia secondary to blood loss (chronic)] Onset: 03-10-2025 Chronic Deficiency and other anemia (2 sources) Anemia, unspecified; Translations: [Anemia, unspecified] Onset: 03-18-2025 Episodic Essential hypertension (1 source) Essential (primary) hypertension; Translations: [Essential (primary) hypertension] Onset: 03-15-2025 Chronic Genitourinary symptoms and ill-defined conditions (3 sources) Retention of urine, unspecified; Translations: [Gross hematuria] Onset: 03-15-2025 Episodic Headache; including migraine (1 source) Headache; including migraine; Translations: [HEADACHE UNSPECIFIED] Onset: 05-23-2021 Hyperplasia of prostate (2 sources) Benign prostatic hyperplasia without lower urinary tract symptoms; Translations: [Benign prostatic hyperplasia without lower urinary tract symptoms] Onset: 02-18-2025 Chronic Hypertension with complications and secondary hypertension (2 sources) Hypertensive heart disease with heart failure; Translations: [Hypertensive heart disease with heart failure] Onset: 03-10-2025 Chronic Other aftercare (2 sources) manager long term care (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) use of anticoagulants; Translations: [manager long term care (current) use of anticoagulants] Onset: 03-22-2025 Episodic Other and ill-defined heart disease (2 sources) Cardiomegaly; Translations: [Cardiomegaly] Onset: 03-10-2025 Chronic Other circulatory disease (2 sources) Orthostatic hypotension; Translations: [Orthostatic hypotension] Onset: 03-10-2025 Episodic Other diseases of kidney and ureters (2 sources) Unspecified hydronephrosis; Translations: [Unspecified hydronephrosis] Onset: 03-18-2025 Episodic Other gastrointestinal disorders (1 source) Chronic idiopathic constipation; Translations: [Chronic idiopathic constipation] Onset: 03-15-2025 Chronic Other gastrointestinal disorders (2 sources) Bariatric surgery status; Translations: [Bariatric surgery status] Onset: 02-18-2025 Episodic Residual codes; unclassified (2 sources) Edema, unspecified; Translations: [Edema, unspecified] Onset: 02-18-2025 Episodic Superficial injury; contusion (2 sources) Contusion of abdominal wall, subsequent encounter; Translations: [Contusion of abdominal wall, subsequent encounter] Onset: 03-22-2025 Episodic Syncope (3 sources) Syncope and collapse; Translations: [Syncope and collapse] Onset: 03-10-2025 Episodic Past or Other Problems Problem Classification Problem Date Documented Da te Episodic/Chronic Other aftercare (1 source) Other shelter (current) drug therapy; Translations: [OTH FURNITURE MECHANIC CURRENT DRUG THERAPY] Onset: 05-23-2021 Episodic Other nervous system disorders (4 sources) Pruitt's palsy; 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 Can we make sure he has an ECHO with a visit following in May? Thank you [facility] 36on 03-23-2025 36 I thought cardiac rehab wanted clearance from scott? [facility] 36 Pt was seen by edwina carreon today, he needs ablation, do you want to extend sick leave? Ablations are booking out to Jul. Also cardiac rehab wants to know if he can start. [facility] Follow-Upon 03-23-2025 Follow-Up [facility] Telephoneon 03-23-2025 Telephone [facility] Follow-Upon 03-22-2025 Follow-Up [facility] Follow-Upon 03-18-2025 Follow-Up [facility] 36on 03-15-2025 36 Yes, extend until he see's Scott. When I saw him, he told me he couldn't walk the grocery store 2 days in a row without feeling fatigued and he works at [employer]. [facility] 36on 03-11-2025 36 PT INFORMED HE STATE S HE WILL BE IN 03/12/25 IN THE MORNING [facility] 36 [facility] Documentationon 03-11-2025 Documentation [facility] Outside Recordson 03-11-2025 Outside Records [id number]#1. 00OTGTIFF [facility] Outside Records [id number]#1. 00OTGTIFF [facility] Outside Records [id number]#1. 00OTGTIFF [facility] Telephoneon 03-11-2025 Telephone [facility] 37on 03-10-2025 37 *Stop aspirin *Have lab work done in 2 weeks [facility] 36on 03-08-2025 36 [facility] Outside Recordson 03-08-2025 Outside Records [id number]#1.0 0OTGTIFF [facility] Telephoneon 03-08-2025 Telephone [facility] 30on 03-05-2025 30 The patient is Moderately Stable - Low risk of patient condition declining or worsening The patient's goals for the shift include Comfort and rest The clinical goals for the shift include VSS and safety [facility] CBCon 03-05-2025 Erythrocyte distribution width (RBC) [Ratio] 16.3 % High 11.5-15.0 [facility] Comment on above: Performed By: #### L [id number] ####[facility] (BEAKER)[address] [place] [address] ERYTHROCYTE MEAN CORPUSCULAR HEMOGLOBIN CONCENTRATION (G/DL) BY AUTOMATED 33.5 g/dL Normal 32.0-35.0 [facility] Comment on above: Performed By: #### L [id number] ####[facility] ([facility])[address] [place] [address] Hematocrit (Bld) [Volume fraction] 24.2 % Low 39.0-50.0 [facility] Comment on above: Performed By: #### L [id number] ####[facility] ([facility])[address] [place] [address] Hemoglobin (Bld) [Mass/Vol] 8.1 g/dL Low 13.0-17.0 [facility] Comment on above: Performed By: #### L [id number] ####[facility] ([facility])[address] [address] MCH (RBC) [Entitic mass] 30.1 pg Normal 27.0-33.0 [facility] Comment on above: Performed By: #### L [id number] ####[facility] ([facility])[address] [place] [address] MCV (RBC) [Entitic vol] 90.0 fL Normal 82.0-98.0 [facility] Comment on above: Performed By: #### L [id number] ####[facility] ([facility])[address] [place] [address] PLATELETS (10*3/UL) IN BLOOD AUTOMATED COUNT 399 10*3/uL Normal 150-400 [facility] Comment on above: Performed By: #### L [id number] ####[facility] ([facility])[address] [place] [address] RBC (Bld) [#/Vol] 2.69 10*6/uL Low 4.20-5.70 [facility] Comment on above: Performed By: #### L [id number] ####[facility] ([facility] [place] [address] WBC (Bld) [#/Vol] 7.45 10*3/uL Normal 4.00-10.60 [facility] Comment on above: Performed By: #### L [id number] ####[facility] ([facility])[address] [place] [address] COMPREHENSIVE METABOLIC PANE Rogelio 03-05-2025 Albumin [Mass/Vol] 3.0 g/dL Low 3.5-5.7 [facility] Comment on above: Performed By: #### L [id number] ####[facility] ([facility])[address] [place] [address] ALP [Catalytic activity/Vol] 60 U/L Normal 34-104 [facility] Comment on above: Performed By: #### L [id number] ####[facility] ([facility])[address] [place] [address] ALT [Catalytic activity/Vol] 15 U/L Normal 7-52 [facility] Comment on above: Performed By: #### L [id number] ####[facility] ([facility])[address] [place] [address] Anion gap [Moles/Vol] 9 mmol/L Normal 7-20 [facility] Comment on above: Performed By: #### L [id number] ####[facility] ([facility])[address] [place] [address] AST [Catalytic activity/Vol] 16 U/L Normal 13-39 [facility] Comment on above: Performed By: #### L [id number] ####[facility] ([facility])[address] [place] [address] Bilirubin [Mass/Vol] 3.8 mg/dL High 0.3-1.0 [facility] Comment on above: Performed By: #### L [id number] ####[facility] ([facility])[address] [place] [address] Calcium [Mass/Vol] 8.1 mg/dL Low 8.6-10.3 [facility] Comment on above: Performed By: #### L [id number] ####[facility] ([facility])[address] [place] [address] Chloride [Moles/Vol] 103 mmol/L Normal 98-107 [facility] Comment on above: Performed By: #### L [id number] ####[facility] ([facility])[address] [place] [address] CO2 [Moles/Vol] 24 mmol/L Normal 21-31 [facility] Comment on above: Performed By: #### L [id number] ####[facility] ([facility])[address] [place] [address] Creatinine [Mass/Vol] 0.73 mg/dL Normal 0.70-1.30 [facility] Comment on above: Performed By: #### L [id number] ####[facility] ([facility])[address] [place] [address] GLOMERULAR FILTRATION RATE ML/MIN/1.73 SQ M.PREDICTED 105.5 mL/min/1.73m*2 Normal >60.0 [facility] Comment on above: Result Comment: [facility]???s estimated glomerular filtration rate (eGFR) will [...] of individuals. Performed By: #### L [id number] ####[facility] ([facility])[address] [place] [address] Glucose [Mass/Vol] 85 mg/dL Normal 70-100 [facility] Comment on above: Performed By: #### L [id number] ####[facility] ([facility])[address] [place] [address] Potassium [Moles/Vol] 3.9 mmol/L Normal 3.5-5.1 [facility] Comment on above: Performed By: #### L [id number] ####[facility] ([facility])[address] [place] [address] Protein [Mass/Vol] 5.2 g/dL Low 6.0-8.3 [facility] Comment on above: Performed By: #### L [id number] ####[facility] ([facility])[address] [place] [address] Sodium [Moles/Vol] 132 mmol/L Low 136-145 [facility] Comment on above: Performed By: #### L [id number] ####[facility] ([facility])[address] [place] [address] Urea nitrogen [Mass/Vol] 13 mg/dL Normal 7-25 [facility] Comment on above: Performed By: #### L [id number] ####[facility] ([facility])[address] [place] [address] UREA NITROGEN/CREATININE (MASS RATIO) IN SER/PLAS 17.8 Normal [facility] Comment on above: Performed By: #### L [id number] ####[facility] ([facility])[address] [place] [address] DSon 03-05-2025 DS Normal [facility] MAGNESIUMon 03-05-2025 Magnesium [Mass/Vol] 1.9 mg/dL Normal 1.9-2.7 [facility] Comment on above: Performed By: #### L [id number] ####[facility] ([facility])[address] [place] [address] PHOSPHORUSon 03-05-2025 Magnesium [Mass/Vol] 3.0 mg/dL Normal 2.5-5.0 [facility] Comment on above: Performed By: #### L [id number] ####[facility] ([facility])[address] [place] [address] 30on 03-04-2025 30 Normal [facility] 30 The patient is Moderately Stable - Low risk of patient condition declining or worsening The patient's goals for the shift include comfort The clinical goals for the shift include VSS, safety Normal [facility] ANTI-XA (HEPARIN LEVEL)on HEPARIN UNFRACTIONATED (U/ML) IN PPP BY CHROMOGENIC METHOD 0.34 IU/mL Normal 0.3-0.7 [facility] Comment on above: Result Comment: Linda roxaban and Apixaban will interfere with the anti Xa assay used to monitor UFH and LMWH. Performed By: #### L [id number] ####[facility] ([facility]AKER)[address] [place] [address] HEPARIN UNFRACTIONATED (U/ML) IN PPP BY CHROMOGENIC METHOD 0.30 IU/mL Normal 0.3-0.7 [facility] Comment on above: Result Comment: Linda roxaban and Apixaban will interfere with the anti Xa assay used to monitor UFH and LMWH. Performed By: #### L [id number] ####[facility] ([facility])[address] [place] [address] CBCon 03-04-2025 Erythrocyte distribution width (RBC) [Ratio] 16.3 % High 11.5-15.0 [facility] Comment on above: Performed By: #### L [id number] ####[facility] ([facility])[address] [facility] [place] [address] ERYTHROCYTE MEAN CORPUSCULAR HEMOGLOBIN CONCENTRATION (G/DL) BY AUTOMATED 34.1 g/dL Normal 32.0-35.0 [facility] Comment on above: Performed By: #### L [id number] ####[facility] ([facility])[address] [facility] [address] Hematocrit (Bld) [Volume fraction] 22.6 % Low 39.0-50.0 [facility] Comment on above: Performed By: #### L [id number] ####[facility] ([facility])[address] [place] [address] Hemoglobin (Bld) [Mass/Vol] 7.7 g/dL Low 13.0-17.0 [facility] Comment on above: Performed By: #### L [id number] ####[facility] ([facility])[address] [facility] [address] MCH (RBC) [Entitic mass] 30.6 pg Normal 27.0-33.0 [facility] Comment on above: Performed By: #### L [id number] ####[facility] ([facility])[address] [place] [address] MCV (RBC) [Entitic vol] 89.7 fL Normal 82.0-98.0 [facility] Comment on above: Performed By: #### L [id number] ####[facility] ([facility])[address] [place] [address] PLATELETS (10*3/UL) IN BLOOD AUTOMATED COUNT 359 10*3/uL Normal 150-400 [facility] Comment on above: Performed By: #### L [id number] ####[facility] ([facility])[address] [place] [address] RBC (Bld) [#/Vol] 2.52 10*6/uL Low 4.20-5.70 [facility] Comment on above: Performed By: #### L [id number] ####[facility] ([facility])[address] [place] [address] WBC (Bld) [#/Vol] 5.41 10*3/uL Normal 4.00-10.60 [facility] Comment on above: Performed By: #### L [id number] ####[facility] ([facility])[address] [place] [address] COMPREHENSIVE METABOLIC PANE Rogelio 03-04-2025 Albumin [Mass/Vol] 2.8 g/dL Low 3.5-5.7 [facility] Comment on above: Performed By: #### L [id number] ####[facility] ([facility])[address] [place] [address] ALP [Catalytic activity/Vol] 55 U/L Normal 34-104 [facility] Comment on above: Performed By: #### L [id number] ####[facility] ([facility])[address] [place] [address] ALT [Catalytic activity/Vol] 17 U/L Normal 7-52 [facility] Comment on above: Performed By: #### L [id number] ####[facility] ([facility]ER)[address] [place] [address] Anion gap [Moles/Vol] 8 mmol/L Normal 7-20 [facility] Comment on above: Performed By: #### L [id number] ####[facility] ([facility])[address] [place] [address] AST [Catalytic activity/Vol] 17 U/L Normal 13-39 [facility] Comment on above: Performed By: #### L [id number] ####[facility] ([facility])[address] [place] [address] Bilirubin [Mass/Vol] 3.7 mg/dL High 0.3-1.0 [facility] Comment on above: Performed By: #### L [id number] ####[facility] ([facility]ER)[address] [place] [address] Calcium [Mass/Vol] 7.7 mg/dL Low 8.6-10.3 [facility] Comment on above: Performed By: #### L [id number] ####[facility] ([facility])[address] [place] [address] Chloride [Moles/Vol] 103 mmol/L Normal 98-107 [facility] Comment on above: Performed By: #### L [id number] ####[facility] ([facility])[address] [place] [address] CO2 [Moles/Vol] 25 mmol/L Normal 21-31 [facility] Comment on above: Performed By: #### L [id number] ####[facility] ([facility]ER)[address] [place] [address] Creatinine [Mass/Vol] 0.66 mg/dL Low 0.70-1.30 [facility] Comment on above: Performed By: #### L [id number] ####[facility] ([facility])[address] [place] [address] GLOMERULAR FILTRATION RATE ML/MIN/1.73 SQ M.PREDICTED 108.7 mL/min/1.73m*2 Normal >60.0 [facility] Comment on above: Result Comment: [facility]???s estimated glomerular filtration rate (eGFR) will [...] of individuals. Performed By: #### L [id number] ####[facility] ([facility])[address] [place] [address] Glucose [Mass/Vol] 86 mg/dL Normal 70-100 [facility] Comment on above: Performed By: #### L [id number] ####[facility] ([facility])[address] [place] [address] Potassium [Moles/Vol] 3.8 mmol/L Normal 3.5-5.1 [facility] Comment on above: Performed By: #### L [id number] ####[facility] ([facility])[address] [facility] [place] [address] Protein [Mass/Vol] 4.9 g/dL Low 6.0-8.3 [facility] Comment on above: Performed By: #### L [id number] ####[facility] ([facility])[address] [place] [address] Sodium [Moles/Vol] 132 mmol/L Low 136-145 [facility] Comment on above: Performed By: #### L [id number] ####[facility] ([facility])[address] [place] [address] Urea nitrogen [Mass/Vol] 15 mg/dL Normal 7-25 [facility] Comment on above: Performed By: #### L [id number] ####[facility] ([facility])[place] [address] UREA NITROGEN/CREATININE (MASS RATIO) IN SER/PLAS 22.7 Normal [facility] Comment on above: Performed By: #### L [id number] ####[facility] ([facility])[place] [address] CTA HEART CORONARY W IV CONT RAST W OR WO FFRCTon 03-04-2025 CTA HEART CORONARY W IV CONTRAST W OR WO FFRCT Invalid Interpretation Code [facility] MAGNESIUMon 03-04-2025 Magnesium [Mass/Vol] 2.0 mg/dL Normal 1.9-2.7 [facility] Comment on above: Performed By: #### L [id number] ####[facility] ([facility])[place] [address] NURSNOTEon 03-04-2025 NURSNOTE Noted sinus rhythem [facility] PHOS[facility]ORUS[facility] 03-04-2025 Magnesium [Mass/Vol] 2.7 mg/dL Normal 2.5-5.0 [facility] Comment on above: Performed By: #### L [id number] ####[facility] ([facility])[place] [address] 30on 03-03-2025 30 Normal [facility] ANESon 03-03-2025 ANES Normal [facility] ANTI-XA (HEPARIN LEVEL)on HEPARIN UNFRACTIONATED (U/ML) IN PPP BY CHROMOGENIC METHOD 0.23 IU/mL Low 0.3-0.7 [facility] Comment on above: Result Comment: Linda roxaban and Apixaban will interfere with the anti Xa assay used to monitor UFH and LMWH. Performed By: #### L [id number] ####[facility] ([facility])[place] [address] HEPARIN UNFRACTIONATED (U/ML) IN PPP BY CHROMOGENIC METHOD 0.31 IU/mL Normal 0.3-0.7 [facility] Comment on above: Result Comment: [place] roxaban and Apixaban will interfere with the anti Xa assay used to monitor UFH and LMWH. Performed By: #### L [id number] ####[facility] ([facility])[address] [address] APTTon 03-03-2025 ACTIVATED PARTIAL THROMBOPLASTIN TIME IN PPP BY COAGULATION ASSAY 41.8 Seconds High 25.0-35.0 [facility] Comment on above: Order Comment: Basel ine aPTT before initiating heparin infusion. Result Comment: Clin ical significance of the APTT is questionable in the presence of heparin. Performed By: #### L [id number] ####[facility] ([facility])[address] [address] CBCon 03-03-2025 Erythrocyte distribution width (RBC) [Ratio] 16.4 % High 11.5-15.0 [facility] Comment on above: Performed By: #### L [id number] ####[facility] ([facility])[address] [place] [address] ERYTHROCYTE MEAN CORPUSCULAR HEMOGLOBIN CONCENTRATION (G/DL) BY AUTOMATED 34.0 g/dL Normal 32.0-35.0 [facility] Comment on above: Performed By: #### L [id number] ####[facility] ([facility])[address] [place] [address] Hematocrit (Bld) [Volume fraction] 24.1 % Low 39.0-50.0 [facility] Comment on above: Performed By: #### L [id number] ####[facility] ([facility])[address] [place] [address] Hemoglobin (Bld) [Mass/Vol] 8.2 g/dL Low 13.0-17.0 [facility] Comment on above: Performed By: #### L [id number] ####[facility] ([facility])[address] [place] [address] MCH (RBC) [Entitic mass] 30.5 pg Normal 27.0-33.0 [facility] Comment on above: Performed By: #### L [id number] ####[facility] [facility])[address] [place] [address] MCV (RBC) [Entitic vol] 89.6 fL Normal 82.0-98.0 [facility] Comment on above: Performed By: #### L [id number] ####[facility] ([facility])[address] [address] PLATELETS (10*3/UL) IN BLOOD AUTOMATED COUNT 370 10*3/uL Normal 150-400 [facility] Comment on above: Performed By: #### L [id number] ####[facility] ([facility])[address] [place] [address] RBC (Bld) [#/Vol] 2.69 10*6/uL Low 4.20-5.70 [facility] Comment on above: Performed By: #### L [id number] ####[facility] ([facility])[address] [place] [address] WBC (Bld) [#/Vol] 5.84 10*3/uL Normal 4.00-10.60 [facility] Comment on above: Performed By: #### L [id number] ####[facility] ([facility])[address] [place] [address] COMPREHENSIVE METABOLIC PANE Rogelio 03-03-2025 Albumin [Mass/Vol] 2.9 g/dL Low 3.5-5.7 [facility] Comment on above: Performed By: #### L [id number] ####[facility] ([facility])[address] [place] [address] ALP [Catalytic activity/Vol] 55 U/L Normal 34-104 [facility] Comment on above: Performed By: #### L [id number] ####[facility] ([facility])[address] [place] [address] ALT [Catalytic activity/Vol] 18 U/L Normal 7-52 [facility] Comment on above: Performed By: #### L [id number] ####[facility] ([facility] [place] [address] Anion gap [Moles/Vol] 9 mmol/L Normal 7-20 [facility] Comment on above: Performed By: #### L [id number] ####[facility] ([facility])[address] [place] [address] AST [Catalytic activity/Vol] 23 U/L Normal 13-39 [facility] Comment on above: Performed By: #### L [id number] ####[facility] ([facility])[address] [place] [address] Bilirubin [Mass/Vol] 4.0 mg/dL High 0.3-1.0 [facility] Comment on above: Performed By: #### L [id number] ####[facility] ([facility])[address] [place] [address] Calcium [Mass/Vol] 7.8 mg/dL Low 8.6-10.3 [facility] Comment on above: Performed By: #### L [id number] ####[facility] ([facility])[address] [place] [address] Chloride [Moles/Vol] 102 mmol/L Normal 98-107 [facility] Comment on above: Performed By: #### L [id number] ####[facility] ([facility])[address] [place] [address] CO2 [Moles/Vol] 25 mmol/L Normal 21-31 [facility] Comment on above: Performed By: #### L [id number] ####[facility] ([facility])[address] [place] [address] Creatinine [Mass/Vol] 0.69 mg/dL Low 0.70-1.30 [facility] Comment on above: Performed By: #### L [id number] ####[facility] ([facility])[address] [place] [address] GLOMERULAR FILTRATION RATE ML/MIN/1.73 SQ M.PREDICTED 107.3 mL/min/1.73m*2 Normal >60.0 [facility] Comment on above: Result Comment: [facility]???s estimated glomerular filtration rate (eGFR) will [...] of individuals. Performed By: #### L [id number] ####[facility] ([facility])[address] [place] [address] Glucose [Mass/Vol] 88 mg/dL Normal 70-100 [facility] Comment on above: Performed By: #### L [id number] ####[facility] ([facility])[address] [place] [address] Potassium [Moles/Vol] 4.0 mmol/L Normal 3.5-5.1 [facility] Comment on above: Performed By: #### L [id number] ####[facility] ([facility])[address] [place] [address] Protein [Mass/Vol] 5.1 g/dL Low 6.0-8.3 [facility] Comment on above: Performed By: #### L [id number] ####[facility] ([facility])[address] [place] [address] Sodium [Moles/Vol] 132 mmol/L Low 136-145 [facility] Comment on above: Performed By: #### L [id number] ####[facility] ([facility])[address] [place] [address] Urea nitrogen [Mass/Vol] 12 mg/dL Normal 7-25 [facility] Comment on above: Performed By: #### L [id number] ####[facility] ([facility])[address] [place] [address] UREA NITROGEN/CREATININE (MASS RATIO) IN SER/PLAS 17.4 Normal [facility] Comment on above: Performed By: #### L [id number] ####[facility] ([facility])[address] [place] [address] DIGOXIN LEVELon 03-03-2025 DIGOXIN (NG/ML) IN SER/PLAS 0.6 ng/mL Low 0.7-2 [facility] Comment on above: Performed By: #### L [id number] ####[facility] ([facility])[address] [place] [address] HPon 03-03-2025 HP Normal [facility] MAGNESIUMon 03-03-2025 Magnesium [Mass/Vol] 2.0 mg/dL Normal 1.9-2.7 [facility] Comment on above: Performed By: #### L [id number] ####[facility] ([facility])[address] [place] [address] NURSNOTEon 03-03-2025 NURSNOTE Normal [facility] NURSNOTE Normal [facility] NURSNOTE Normal [facility] PHOSPHORUSon 03-03-2025 Magnesium [Mass/Vol] 2.9 mg/dL Normal 2.5-5.0 [facility] Comment on above: Performed By: #### L [id number] ####[facility] ([facility])[address] [place] [address] PLATELET COUNTon 03-03-2025 PLATELETS (10*3/UL) IN BLOOD AUTOMATED COUNT 358 10*3/uL Normal 150-400 [facility] Comment on above: Performed By: #### L [id number] ####[facility] ([facility])[address] [place] [address] 30on 03-02-2025 30 Normal [facility] ANTI-XA (HEPARIN LEVEL)on HEPARIN UNFRACTIONATED (U/ML) IN PPP BY CHROMOGENIC METHOD 0.18 IU/mL Low 0.3-0.7 [facility] Comment on above: Result Comment: Linda roxaban and Apixaban will interfere with the anti Xa assay used to monitor UFH and LMWH. Performed By: #### L [id number] ####[facility] ([facility])[address] [place] [address] APTTon 03-02-2025 ACTIVATED PARTIAL THROMBOPLASTIN TIME IN PPP BY COAGULATION ASSAY 39.7 Seconds High 25.0-35.0 [facility] Comment on above: Order Comment: Basel ine aPTT before initiating heparin infusion. Result Comment: Clin ical significance of the APTT is questionable in the presence of heparin. Performed By: #### L [id number] ####[facility] ([facility])[address] [place] [address] COMPREHENSIVE METABOLIC PANE Rogelio 03-02-2025 Albumin [Mass/Vol] 3.0 g/dL Low 3.5-5.7 [facility] Comment on above: Performed By: #### L [id number] ####[facility] ([facility] [place] [address] ALP [Catalytic activity/Vol] 59 U/L Normal 34-104 [facility] Comment on above: Performed By: #### L [id number] ####[facility] ([facility])[address] [place] [address] ALT [Catalytic activity/Vol] 20 U/L Normal 7-52 [facility] Comment on above: Performed By: #### L [id number] ####[facility] ([facility])[address] [place] [address] Anion gap [Moles/Vol] 7 mmol/L Normal 7-20 [facility] Comment on above: Performed By: #### L [id number] ####[facility] ([facility])[address] [place] [address] AST [Catalytic activity/Vol] 21 U/L Normal 13-39 [facility] Comment on above: Performed By: #### L [id number] ####[facility] ([facility])[address] [place] [address] Bilirubin [Mass/Vol] 4.3 mg/dL High 0.3-1.0 [facility] Comment on above: Performed By: #### L [id number] ####[facility] ([facility])[address] [place] [address] Calcium [Mass/Vol] 8.1 mg/dL Low 8.6-10.3 [facility] Comment on above: Performed By: #### L [id number] ####[facility] ([facility])[address] [place] [address] Chloride [Moles/Vol] 103 mmol/L Normal 98-107 [facility] Comment on above: Performed By: #### L [id number] ####[facility] ([facility])[address] [place] [address] CO2 [Moles/Vol] 25 mmol/L Normal 21-31 [facility] Comment on above: Performed By: #### L [id number] ####[facility] ([facility])[address] [place] [address] Creatinine [Mass/Vol] 0.68 mg/dL Low 0.70-1.30 [facility] Comment on above: Performed By: #### L [id number] ####[facility] ([facility])[address] [place] [address] GLOMERULAR FILTRATION RATE ML/MIN/1.73 SQ M.PREDICTED 107.7 mL/min/1.73m*2 Normal >60.0 [facility] Comment on above: Result Comment: [facility]???s estimated glomerular filtration rate (eGFR) will [...] of individuals. Performed By: #### L [id number] ####[facility] ([facility])[address] [place] [address] Glucose [Mass/Vol] 91 mg/dL Normal 70-100 [facility] Comment on above: Performed By: #### L [id number] ####[facility] ([facility])[address] [place] [address] Potassium [Moles/Vol] 4.0 mmol/L Normal 3.5-5.1 [facility] Comment on above: Performed By: #### L [id number] ####[facility] ([facility])[address] [place] [address] Protein [Mass/Vol] 5.3 g/dL Low 6.0-8.3 [facility] Comment on above: Performed By: #### L [id number] ####[facility] ([facility])[address] [place] [address] Sodium [Moles/Vol] 131 mmol/L Low 136-145 [facility] Comment on above: Performed By: #### L [id number] ####[facility] ([facility])[address] [place] [address] Urea nitrogen [Mass/Vol] 13 mg/dL Normal 7-25 [facility] Comment on above: Performed By: #### L [id number] ####[facility] ([facility])[address] [place] [address] UREA NITROGEN/CREATININE (MASS RATIO) IN SER/PLAS 19.1 Normal [facility] Comment on above: Performed By: #### L [id number] ####[facility] ([facility])[address] [place] [address] MAGNESIUMon 03-02-2025 Magnesium [Mass/Vol] 2.0 mg/dL Normal 1.9-2.7 [facility] Comment on above: Performed By: #### L [id number] ####[facility] ([facility])[address] [place] [address] PHOSPHORUSon 03-02-2025 Magnesium [Mass/Vol] 2.5 mg/dL Normal 2.5-5.0 [facility] Comment on above: Performed By: #### L [id number] ####[facility] ([facility])[address] [place] [address] PLATELET COUNTon 03-02-2025 PLATELETS (10*3/UL) IN BLOOD AUTOMATED COUNT 366 10*3/uL Normal 150-400 [facility] Comment on above: Performed By: #### L [id number] ####[facility] ([facility])[address] [place] [address] URINALYSISon 03-02-2025 BILIRUBIN, TOTAL PRESENCE IN URINE Negative Normal Negative [facility] Comment on above: Order Comment: Micro scopics not performed on urines with negative chemical reactions unless requested on original order. Performed By: #### L [id number] ####[facility] ([facility])[address] [place] [address] Clarity (U) Clear Normal Clear [facility] Comment on above: Order Comment: Micro scopics not performed on urines with negative chemical reactions unless requested on original order. Performed By: #### L [id number] ####[facility] ([facility])[address] [place] [address] Color (U) Yellow Normal Colorless, Yellow, Light-Yellow [facility] Comment on above: Order Comment: Micro scopics not performed on urines with negative chemical reactions unless requested on original order. Performed By: #### L [id number] ####[facility] ([facility])[address] [place] [address] GLUCOSE (MG/DL) IN URINE Normal Normal Normal [facility] Comment on above: Order Comment: Micro scopics not performed on urines with negative chemical reactions unless requested on original order. Performed By: #### L [id number] ####[facility] ([facility])[address] [place] [address] HEMOGLOBIN PRESENCE IN URINE Negative Normal Negative [facility] Comment on above: Order Comment: Micro scopics not performed on urines with negative chemical reactions unless requested on original order. Performed By: #### L [id number] ####[facility] ([facility])[address] [place] [address] Ketones Ql (U) Negative Normal Negative [facility] Comment on above: Order Comment: Micro scopics not performed on urines with negative chemical reactions unless requested on original order. Performed By: #### L [id number] ####[facility] ([facility])[address] [place] [address] LEUKOCYTE ESTERASE PRESENCE IN URINE BY TEST STRIP Negative Normal Negative [facility] Comment on above: Order Comment: Micro scopics not performed on urines with negative chemical reactions unless requested on original order. Performed By: #### L [id number] ####[facility] ([facility])[address] [place] [address] NITRITE PRESENCE IN URINE Negative Normal Negative [facility] Comment on above: Order Comment: Micro scopics not performed on urines with negative chemical reactions unless requested on original order. Performed By: #### L [id number] ####[facility] ([facility])[address] [place] [address] pH (U) 6.5 [pH] Normal 5.0-8.0 [facility] Comment on above: Order Comment: Micro scopics not performed on urines with negative chemical reactions unless requested on original order. Performed By: #### L [id number] ####[facility] ([facility])[address] [place] [address] Protein (U) [Mass/Vol] Negative Normal Negative [facility] Comment on above: Order Comment: Micro scopics not performed on urines with negative chemical reactions unless requested on original order. Performed By: #### L [id number] ####[facility] ([facility])[address] [place] [address] Specific gravity (U) [Rel density] 1.016 Normal 1.010-1.030 [facility] Comment on above: Order Comment: Micro scopics not performed on urines with negative chemical reactions unless requested on original order. Performed By: #### L [id number] ####[facility] ([facility])[address] [place] [address] UROBILINOGEN (MG/DL) IN URINE >=8.0 Abnormal Normal [facility] Comment on above: Order Comment: Micro scopics not performed on urines with negative chemical reactions unless requested on original order. Performed By: #### L [id number] ####[facility] ([facility])[address] [place] [address] 30on 09-01-2025 30 The patient is Moderately Stable - Low risk of patient condition declining or worsening The patient's goals for the shift include comfort, rest. The clinical goals for the shift include stable vitals, safety. Normal [facility] 30 Normal [facility] COMPREHENSIVE METABOLIC PANE Rogelio 03-01-2025 Albumin [Mass/Vol] 2.9 g/dL Low 3.5-5.7 [facility] Comment on above: Performed By: #### L [id number] ####[facility] [place] [address] ALP [Catalytic activity/Vol] 58 U/L Normal 34-104 [facility] Comment on above: Performed By: #### L [id number] ####[facility] ([facility])[address] [place] [address] ALT [Catalytic activity/Vol] 17 U/L Normal 7-52 [facility] Comment on above: Performed By: #### L [id number] ####[facility] ([facility])[address] [place] [address] Anion gap [Moles/Vol] 9 mmol/L Normal 7-20 [facility] Comment on above: Performed By: #### L [id number] ####[facility] ([facility])[address] [place] [address] AST [Catalytic activity/Vol] 17 U/L Normal 13-39 [facility] Comment on above: Performed By: #### L [id number] ####[facility] ([facility])[address] [place] [address] Bilirubin [Mass/Vol] 3.6 mg/dL High 0.3-1.0 [facility] Comment on above: Performed By: #### L [id number] ####[facility] ([facility])[address] [place] [address] Calcium [Mass/Vol] 7.7 mg/dL Low 8.6-10.3 [facility] Comment on above: Performed By: #### L [id number] ####[facility] ([facility])[address] [place] [address] Chloride [Moles/Vol] 103 mmol/L Normal 98-107 [facility] Comment on above: Performed By: #### L [id number] ####[facility] ([facility])[address] [place] [address] CO2 [Moles/Vol] 22 mmol/L Normal 21-31 [facility] Comment on above: Performed By: #### L [id number] ####[facility] [place] [address] Creatinine [Mass/Vol] 0.67 mg/dL Low 0.70-1.30 [facility] Comment on above: Performed By: #### L [id number] ####[facility] ([facility])[address] [place] [address] GLOMERULAR FILTRATION RATE ML/MIN/1.73 SQ M.PREDICTED 108.2 mL/min/1.73m*2 Normal >60.0 [facility] Comment on above: Result Comment: [facility]???s estimated glomerular filtration rate (eGFR) will [...] of individuals. Performed By: #### L [id number] ####[facility] ([facility])[address] [place] [address] Glucose [Mass/Vol] 94 mg/dL Normal 70-100 [facility] Comment on above: Performed By: #### L [id number] ####[facility] ([facility])[address] [place] [address] Potassium [Moles/Vol] 3.9 mmol/L Normal 3.5-5.1 [facility] Comment on above: Performed By: #### L [id number] ####[facility] ([facility])[address] [place] [address] Protein [Mass/Vol] 5.1 g/dL Low 6.0-8.3 [facility] Comment on above: Performed By: #### L [id number] ####[facility] ([facility])[address] [place] [address] Sodium [Moles/Vol] 130 mmol/L Low 136-145 [facility] Comment on above: Performed By: #### L [id number] ####[facility] ([facility])[address] [place] [address] Urea nitrogen [Mass/Vol] 14 mg/dL Normal 7-25 [facility] Comment on above: Performed By: #### L [id number] ####[facility] ([facility])[address] [place] [address] UREA NITROGEN/CREATININE (MASS RATIO) IN SER/PLAS 20.9 Normal [facility] Comment on above: Performed By: #### L [id number] ####[facility] ([facility])[address] [place] [address] DIGOXIN LEVELon 03-01-2025 DIGOXIN (NG/ML) IN SER/PLAS <0.3 Low 0.7-2 [facility] Comment on above: Performed By: #### L [id number] ####[facility] ([facility])[address] [place] [address] MAGNESIUMon 03-01-2025 Magnesium [Mass/Vol] 2.0 mg/dL Normal 1.9-2.7 [facility] Comment on above: Performed By: #### L [id number] ####[facility] ([facility])[address] [place] [address] NURSNOTEon 03-01-2025 NURSNOTE Normal [facility] PHOSPHORUSon 03-01-2025 Magnesium [Mass/Vol] 2.4 mg/dL Low 2.5-5.0 [facility] Comment on above: Performed By: #### L [id number] ####[facility] ([facility])[address] [place] [address] 30on 02-28-2025 30 Normal [facility] CBCon 02-28-2025 Erythrocyte distribution width (RBC) [Ratio] 17.2 % High 11.5-15.0 [facility] Comment on above: Performed By: #### L [id number] ####[facility] ([facility])[address] [place] [address] ERYTHROCYTE MEAN CORPUSCULAR HEMOGLOBIN CONCENTRATION (G/DL) BY AUTOMATED 34.2 g/dL Normal 32.0-35.0 [facility] Comment on above: Performed By: #### L [id number] ####[facility] ([facility])[address] [place] [address] Hematocrit (Bld) [Volume fraction] 24.3 % Low 39.0-50.0 [facility] Comment on above: Performed By: #### L [id number] ####[facility] ([facility])[address] [place] [address] Hemoglobin (Bld) [Mass/Vol] 8.3 g/dL Low 13.0-17.0 [facility] Comment on above: Performed By: #### L [id number] ####[facility] ([facility])[address] [place] [address] MCH (RBC) [Entitic mass] 30.7 pg Normal 27.0-33.0 [facility] Comment on above: Performed By: #### L [id number] ####[facility] ([facility] [place] [address] MCV (RBC) [Entitic vol] 90.0 fL Normal 82.0-98.0 [facility] Comment on above: Performed By: #### L [id number] ####[facility] ([facility])[address] [place] [address] PLATELETS (10*3/UL) IN BLOOD AUTOMATED COUNT 255 10*3/uL Normal 150-400 [facility] Comment on above: Performed By: #### L [id number] ####[facility] ([facility])[address] [place] [address] RBC (Bld) [#/Vol] 2.70 10*6/uL Low 4.20-5.70 [facility] Comment on above: Performed By: #### L [id number] ####[facility] ([facility])[address] [place] [address] WBC (Bld) [#/Vol] 8.84 10*3/uL Normal 4.00-10.60 [facility] Comment on above: Performed By: #### L [id number] ####[facility] ([facility])[address] [place] [address] COMPREHENSIVE METABOLIC PANE [facility] 02-28-2025 Albumin [Mass/Vol] 3.0 g/dL Low 3.5-5.7 [facility] Comment on above: Performed By: #### L [id number] ####[facility] ([facility])[address] [place] [address] ALP [Catalytic activity/Vol] 60 U/L Normal 34-104 [facility] Comment on above: Performed By: #### L [id number] ####[facility] ([facility])[address] [place] [address] ALT [Catalytic activity/Vol] 20 U/L Normal 7-52 [facility] Comment on above: Performed By: #### L [id number] ####[facility] ([facility])[address] [place] [address] Anion gap [Moles/Vol] 10 mmol/L Normal 7-20 [facility] Comment on above: Performed By: #### L [id number] ####[facility] ([facility])[address] [place] [address] AST [Catalytic activity/Vol] 14 U/L Normal 13-39 [facility] Comment on above: Performed By: #### L [id number] ####[facility] ([facility])[address] [place] [address] Bilirubin [Mass/Vol] 3.8 mg/dL High 0.3-1.0 [facility] Comment on above: Performed By: #### L [id number] ####[facility] ([facility])[address] [place] [address] Calcium [Mass/Vol] 7.9 mg/dL Low 8.6-10.3 [facility] Comment on above: Performed By: #### L [id number] ####[facility] ([facility])[address] [place] [address] Chloride [Moles/Vol] 102 mmol/L Normal 98-107 [facility] Comment on above: Performed By: #### L [id number] ####[facility] ([facility])[address] [place] [address] CO2 [Moles/Vol] 23 mmol/L Normal 21-31 [facility] Comment on above: Performed By: #### L [id number] ####[facility] ([facility])[address] [place] [address] Creatinine [Mass/Vol] 0.75 mg/dL Normal 0.70-1.30 [facility] Comment on above: Performed By: #### L [id number] ####[facility] ([facility]AKER)[address] [place] [address] GLOMERULAR FILTRATION RATE ML/MIN/1.73 SQ M.PREDICTED 104.6 mL/min/1.73m*2 Normal >60.0 [facility] Comment on above: Result Comment: [facility]???s estimated glomerular filtration rate (eGFR) will [...] of individuals. Performed By: #### L [id number] ####[facility] ([facility]AKER)[address] [place] [address] Glucose [Mass/Vol] 98 mg/dL Normal 70-100 [facility] Comment on above: Performed By: #### L [id number] ####[facility] ([facility])[address] [place] [address] Potassium [Moles/Vol] 4.0 mmol/L Normal 3.5-5.1 [facility] Comment on above: Performed By: #### L [id number] ####[facility] ([facility])[address] [place] [address] Protein [Mass/Vol] 5.1 g/dL Low 6.0-8.3 [facility] Comment on above: Performed By: #### L [id number] ####[facility] ([facility])[address] [place] [address] Sodium [Moles/Vol] 131 mmol/L Low 136-145 [facility] Comment on above: Performed By: #### L [id number] ####[facility] ([facility])[address] [place] [address] Urea nitrogen [Mass/Vol] 16 mg/dL Normal 7-25 [facility] Comment on above: Performed By: #### L [id number] ####[facility] ([facility])[address] [place] [address] UREA NITROGEN/CREATININE (MASS RATIO) IN SER/PLAS 21.3 Normal [facility] Comment on above: Performed By: #### L [id number] ####[facility] ([facility])[address] [place] [address] MAGNESIUMon 02-28-2025 Magnesium [Mass/Vol] 2.0 mg/dL Low 2.5-5.0 [facility] Comment on above: Performed By: #### L [id number] ####[facility] ([facility]ER)[address] [place] [address] Performed By: #### L [id number] ####[facility] ([facility])[address] [place] [address] NURSNOTEon 02-28-2025 NURSNOTE Normal [facility] 30on 02-27-2025 30 Normal [facility] CBCon 02-27-2025 Erythrocyte distribution width (RBC) [Ratio] 17.2 % High 11.5-15.0 [facility] Comment on above: Performed By: #### L [id number] ####[facility] ([facility])[address] [place] [address] ERYTHROCYTE MEAN CORPUSCULAR HEMOGLOBIN CONCENTRATION (G/DL) BY AUTOMATED 35.5 g/dL High 32.0-35.0 [facility] Comment on above: Performed By: #### L [id number] ####[facility] ([facility])[address] [place] [address] Hematocrit (Bld) [Volume fraction] 25.1 % Low 39.0-50.0 [facility] Comment on above: Performed By: #### L [id number] ####[facility] ([facility])[address] [place] [address] Hemoglobin (Bld) [Mass/Vol] 8.9 g/dL Low 13.0-17.0 [facility] Comment on above: Performed By: #### L [id number] ####[facility] ([facility])[address] [place] [address] MCH (RBC) [Entitic mass] 31.3 pg Normal 27.0-33.0 [facility] Comment on above: Performed By: #### L [id number] ####[facility] ([facility])[address] [place] [address] MCV (RBC) [Entitic vol] 88.4 fL Normal 82.0-98.0 [facility] Comment on above: Performed By: #### L [id number] ####[facility] ([facility])[address] [place] [address] PLATELETS (10*3/UL) IN BLOOD AUTOMATED COUNT 261 10*3/uL Normal 150-400 [facility] Comment on above: Performed By: #### L [id number] ####[facility] ([facility]ER)[address] [address] RBC (Bld) [#/Vol] 2.84 10*6/uL Low 4.20-5.70 [facility] Comment on above: Performed By: #### L [id number] ####[facility] ([facility]ER)[address] [place], [place] [address] WBC (Bld) [#/Vol] 9.07 10*3/uL Normal 4.00-10.60 [facility] Comment on above: Performed By: #### L [id number] ####[facility] ([facility])[address] [address] Erythrocyte distribution width (RBC) [Ratio] 17.2 % High 11.5-15.0 [facility] Comment on above: Performed By: #### L [id number] ####[facility] ([facility])[address] [place] [address] ERYTHROCYTE MEAN CORPUSCULAR HEMOGLOBIN CONCENTRATION (G/DL) BY AUTOMATED 35.0 g/dL Normal 32.0-35.0 [facility] Comment on above: Performed By: #### L [id number] ####[facility] ([facility]ER)[address] [place] [address] Hematocrit (Bld) [Volume fraction] 27.4 % Low 39.0-50.0 [facility] Comment on above: Performed By: #### L [id number] ####[facility] ([facility]ER)[address] [place], [place] [address] Hemoglobin (Bld) [Mass/Vol] 9.6 g/dL Low 13.0-17.0 [facility] Comment on above: Performed By: #### L [id number] ####[facility] ([facility]ER)[address] [place] [address] MCH (RBC) [Entitic mass] 30.8 pg Normal 27.0-33.0 [facility] Comment on above: Performed By: #### L [id number] ####[facility] (BEAKER)[address] [place] [address] MCV (RBC) [Entitic vol] 87.8 fL Normal 82.0-98.0 [facility] Comment on above: Performed By: #### L [id number] ####[facility] ([facility]ER)[address] [place] [address] PLATELETS (10*3/UL) IN BLOOD AUTOMATED COUNT 284 10*3/uL Normal 150-400 [facility] Comment on above: Performed By: #### L [id number] ####[facility] ([facility]ER)[address] [place], [place] [address] RBC (Bld) [#/Vol] 3.12 10*6/uL Low 4.20-5.70 [facility] Comment on above: Performed By: #### L [id number] ####[facility] ([facility]ER)[address] [place] [address] WBC (Bld) [#/Vol] 10.96 10*3/uL High 4.00-10.60 [facility] Comment on above: Performed By: #### L [id number] ####[facility] (BE[facility]ER)[address] [place] [address] Erythrocyte distribution width (RBC) [Ratio] 17.3 % High 11.5-15.0 [facility] Comment on above: Performed By: #### L [id number] ####[facility] ([facility]ER)[address] [place] [address] ERYTHROCYTE MEAN CORPUSCULAR HEMOGLOBIN CONCENTRATION (G/DL) BY AUTOMATED 34.4 g/dL Normal 32.0-35.0 [facility] Comment on above: Performed By: #### L [id number] ####[facility] ([facility])[address] [place] [address] Hematocrit (Bld) [Volume fraction] 24.7 % Low 39.0-50.0 [facility] Comment on above: Performed By: #### L [id number] ####[facility] ([facility])[address] [address] Hemoglobin (Bld) [Mass/Vol] 8.5 g/dL Low 13.0-17.0 [facility] Comment on above: Performed By: #### L [id number] ####[facility] ([facility])[address] [place] [address] MCH (RBC) [Entitic mass] 30.9 pg Normal 27.0-33.0 [facility] Comment on above: Performed By: #### L [id number] ####[facility] ([facility])[address] [address] MCV (RBC) [Entitic vol] 89.8 fL Normal 82.0-98.0 [facility] Comment on above: Performed By: #### L [id number] ####[facility] ([facility])[address] [place] [address] PLATELETS (10*3/UL) IN BLOOD AUTOMATED COUNT 233 10*3/uL Normal 150-400 [facility] Comment on above: Performed By: #### L [id number] ####[facility] ([facility])[address] [address] RBC (Bld) [#/Vol] 2.75 10*6/uL Low 4.20-5.70 [facility] Comment on above: Performed By: #### L [id number] ####[facility] ([facility])[address] [place] [address] WBC (Bld) [#/Vol] 8.02 10*3/uL Normal 4.00-10.60 [facility] Comment on above: Performed By: #### L [id number] ####[facility] ([facility])[address] [address] Erythrocyte distribution width (RBC) [Ratio] 17.5 % High 11.5-15.0 [facility] Comment on above: Performed By: #### L [id number] ####[facility] ([facility]ER)[address] [address] ERYTHROCYTE MEAN CORPUSCULAR HEMOGLOBIN CONCENTRATION (G/DL) BY AUTOMATED 34.5 g/dL Normal 32.0-35.0 [facility] Comment on above: Performed By: #### L [id number] ####[facility] ([facility]ER)[address] [address] Hematocrit (Bld) [Volume fraction] 23.8 % Low 39.0-50.0 [facility] Comment on above: Performed By: #### L [id number] ####[facility] (BEAKER)[address] [address] Hemoglobin (Bld) [Mass/Vol] 8.2 g/dL Low 13.0-17.0 [facility] Comment on above: Performed By: #### L [id number] ####[facility] ([facility]ER)[address] [address] MCH (RBC) [Entitic mass] 30.7 pg Normal 27.0-33.0 [facility] Comment on above: Performed By: #### L [id number] ####[facility] ([facility]ER)[address] [address] MCV (RBC) [Entitic vol] 89.1 fL Normal 82.0-98.0 [facility] Comment on above: Performed By: #### L [id number] ####[facility] ([facility]ER)[address] [place] [address] PLATELETS (10*3/UL) IN BLOOD AUTOMATED COUNT 159 10*3/uL Normal 150-400 [facility] Comment on above: Performed By: #### L [id number] ####[facility] ([facility]ER)[address] [address] RBC (Bld) [#/Vol] 2.67 10*6/uL Low 4.20-5.70 [facility] Comment on above: Performed By: #### L [id number] ####[facility] ([facility])[address] [place] [address] WBC (Bld) [#/Vol] 8.06 10*3/uL Normal 4.00-10.60 [facility] Comment on above: Performed By: #### L [id number] ####[facility] ([facility])[address] [place] [address] COMPREHENSIVE METABOLIC PANE Rogelio 02-27-2025 Albumin [Mass/Vol] 2.9 g/dL Low 3.5-5.7 [facility] Comment on above: Performed By: #### L [id number] ####[facility] ([facility])[address] [place] [address] ALP [Catalytic activity/Vol] 54 U/L Normal 34-104 [facility] Comment on above: Performed By: #### L [id number] ####[facility] ([facility])[address] [place] [address] ALT [Catalytic activity/Vol] 21 U/L Normal 7-52 [facility] Comment on above: Performed By: #### L [id number] ####[facility] ([facility])[address] [place] [address] Anion gap [Moles/Vol] 8 mmol/L Normal 7-20 [facility] Comment on above: Performed By: #### L [id number] ####[facility] ([facility])[address] [place] [address] AST [Catalytic activity/Vol] 16 U/L Normal 13-39 [facility] Comment on above: Performed By: #### L [id number] ####[facility] ([facility])[address] [place] [address] Bilirubin [Mass/Vol] 3.4 mg/dL High 0.3-1.0 [facility] Comment on above: Performed By: #### L [id number] ####[facility] ([facility])[address] [place] [address] Calcium [Mass/Vol] 7.8 mg/dL Low 8.6-10.3 [facility] Comment on above: Performed By: #### L [id number] ####[facility] ([facility]ER)[address] [place] [address] Chloride [Moles/Vol] 102 mmol/L Normal 98-107 [facility] Comment on above: Performed By: #### L [id number] ####[facility] ([facility]ER)[address] [place] [address] CO2 [Moles/Vol] 25 mmol/L Normal 21-31 [facility] Comment on above: Performed By: #### L [id number] ####[facility] ([facility])[address] [place] [address] Creatinine [Mass/Vol] 0.64 mg/dL Low 0.70-1.30 [facility] Comment on above: Performed By: #### L [id number] ####[facility] ([facility])[address] [place] [address] GLOMERULAR FILTRATION RATE ML/MIN/1.73 SQ M.PREDICTED 109.7 mL/min/1.73m*2 Normal >60.0 [facility] Comment on above: Result Comment: [facility]???s estimated glomerular filtration rate (eGFR) will [...] of individuals. Performed By: #### L [id number] ####[facility] ([facility]ER)[address] [place] [address] Glucose [Mass/Vol] 100 mg/dL Normal 70-100 [facility] Comment on above: Performed By: #### L [id number] ####[facility] ([facility]ER)[address] [place] [address] Potassium [Moles/Vol] 4.1 mmol/L Normal 3.5-5.1 [facility] Comment on above: Performed By: #### L [id number] ####[facility] ([facility])[address] [place] [address] Protein [Mass/Vol] 4.9 g/dL Low 6.0-8.3 [facility] Comment on above: Performed By: #### L [id number] ####[facility] ([facility])[address] [place] [address] Sodium [Moles/Vol] 131 mmol/L Low 136-145 [facility] Comment on above: Performed By: #### L [id number] ####[facility] ([facility])[address] [place] [address] Urea nitrogen [Mass/Vol] 17 mg/dL Normal 7-25 [facility] Comment on above: Performed By: #### L [id number] ####[facility] ([facility])[address] [place] [address] UREA NITROGEN/CREATININE (MASS RATIO) IN SER/PLAS 26.6 Normal [facility] Comment on above: Performed By: #### L [id number] ####[facility] ([facility])[address] [place] [address] MAGNESIUMon 02-27-2025 Magnesium [Mass/Vol] 2.1 mg/dL Normal 1.9-2.7 [facility] Comment on above: Performed By: #### L [id number] ####[facility] ([facility])[address] [place] [address] NURSNOTEon 02-27-2025 NURSNOTE Normal [facility] PHOSPHORUSon 02-27-2025 Magnesium [Mass/Vol] 2.0 mg/dL Low 2.5-5.0 [facility] Comment on above: Performed By: #### L [id number] ####[facility] ([facility])[address] [place] [address] 30on 02-26-2025 30 Normal [facility] CBCon 02-26-2025 Erythrocyte distribution width (RBC) [Ratio] 17.5 % High 11.5-15.0 [facility] Comment on above: Performed By: #### L [id number] ####[facility] ([facility])[address] [address] ERYTHROCYTE MEAN CORPUSCULAR HEMOGLOBIN CONCENTRATION (G/DL) BY AUTOMATED 34.6 g/dL Normal 32.0-35.0 [facility] Comment on above: Performed By: #### L [id number] ####[facility] ([facility])[address] [place] [address] Hematocrit (Bld) [Volume fraction] 24.6 % Low 39.0-50.0 [facility] Comment on above: Performed By: #### L [id number] ####[facility] ([facility])[address] [place] [address] Hemoglobin (Bld) [Mass/Vol] 8.5 g/dL Low 13.0-17.0 [facility] Comment on above: Performed By: #### L [id number] ####[facility] ([facility]ER)[address] [place] [address] MCH (RBC) [Entitic mass] 31.1 pg Normal 27.0-33.0 [facility] Comment on above: Performed By: #### L [id number] ####[facility] ([facility]ER)[address] [place] [address] MCV (RBC) [Entitic vol] 90.1 fL Normal 82.0-98.0 [facility] Comment on above: Performed By: #### L [id number] ####[facility] ([facility])[address] [place] [address] PLATELETS (10*3/UL) IN BLOOD AUTOMATED COUNT 225 10*3/uL Normal 150-400 [facility] Comment on above: Performed By: #### L [id number] ####[facility] ([facility]ER)[address] [place] [address] RBC (Bld) [#/Vol] 2.73 10*6/uL Low 4.20-5.70 [facility] Comment on above: Performed By: #### L [id number] ####[facility] ([facility]ER)[address] [place] [address] WBC (Bld) [#/Vol] 8.18 10*3/uL Normal 4.00-10.60 [facility] Comment on above: Performed By: #### L [id number] ####[facility] ([facility])[address] [place] [address] Erythrocyte distribution width (RBC) [Ratio] 17.6 % High 11.5-15.0 [facility] Comment on above: Performed By: #### L [id number] ####[facility] ([facility])[address] [place] [address] ERYTHROCYTE MEAN CORPUSCULAR HEMOGLOBIN CONCENTRATION (G/DL) BY AUTOMATED 34.0 g/dL Normal 32.0-35.0 [facility] Comment on above: Performed By: #### L [id number] ####[facility] ([facility])[address] [place] [address] Hematocrit (Bld) [Volume fraction] 25.0 % Low 39.0-50.0 [facility] Comment on above: Performed By: #### L [id number] ####[facility] ([facility])[address] [place] [address] Hemoglobin (Bld) [Mass/Vol] 8.5 g/dL Low 13.0-17.0 [facility] Comment on above: Performed By: #### L [id number] ####[facility] ([facility])[address] [place] [address] MCH (RBC) [Entitic mass] 30.2 pg Normal 27.0-33.0 [facility] Comment on above: Performed By: #### L [id number] ####[facility] ([facility]ER)[address] [place] [address] MCV (RBC) [Entitic vol] 89.0 fL Normal 82.0-98.0 [facility] Comment on above: Performed By: #### L [id number] ####[facility] ([facility]ER)[address] [address] PLATELETS (10*3/UL) IN BLOOD AUTOMATED COUNT 219 10*3/uL Normal 150-400 [facility] Comment on above: Performed By: #### L [id number] ####[facility] ([facility])[address] [address] RBC (Bld) [#/Vol] 2.81 10*6/uL Low 4.20-5.70 [facility] Comment on above: Performed By: #### L [id number] ####[facility] ([facility])[address] [place], [place] [address] WBC (Bld) [#/Vol] 8.65 10*3/uL Normal 4.00-10.60 [facility] Comment on above: Performed By: #### L [id number] ####[facility] ([facility])[address] [place] [address] Erythrocyte distribution width (RBC) [Ratio] 17.8 % High 11.5-15.0 [facility] Comment on above: Performed By: #### L [id number] ####[facility] ([facility]ER)[address] [place] [address] ERYTHROCYTE MEAN CORPUSCULAR HEMOGLOBIN CONCENTRATION (G/DL) BY AUTOMATED 35.0 g/dL Normal 32.0-35.0 [facility] Comment on above: Performed By: #### L [id number] ####[facility] ([facility]ER)[address] [place] [address] Hematocrit (Bld) [Volume fraction] 24.6 % Low 39.0-50.0 [facility] Comment on above: Performed By: #### L [id number] ####[facility] ([facility]ER)[address] [place] [address] Hemoglobin (Bld) [Mass/Vol] 8.6 g/dL Low 13.0-17.0 [facility] Comment on above: Performed By: #### L [id number] ####[facility] ([facility])[address] [place], [place] [address] MCH (RBC) [Entitic mass] 31.4 pg Normal 27.0-33.0 [facility] Comment on above: Performed By: #### L [id number] ####[facility] ([facility])[address] [place], [place] [address] MCV (RBC) [Entitic vol] 89.8 fL Normal 82.0-98.0 [facility] Comment on above: Performed By: #### L [id number] ####[facility] ([facility])[address] [place], [place] [address] PLATELETS (10*3/UL) IN BLOOD AUTOMATED COUNT 205 10*3/uL Normal 150-400 [facility] Comment on above: Performed By: #### L [id number] ####[facility] ([facility])[address] [place] [address] RBC (Bld) [#/Vol] 2.74 10*6/uL Low 4.20-5.70 [facility] Comment on above: Performed By: #### L [id number] ####[facility] ([facility])[address] [place] [address] WBC (Bld) [#/Vol] 7.78 10*3/uL Normal 4.00-10.60 [facility] Comment on above: Performed By: #### L [id number] ####[facility] ([facility])[address] [place] [address] Erythrocyte distribution width (RBC) [Ratio] 17.8 % High 11.5-15.0 [facility] Comment on above: Performed By: #### L [id number] ####[facility] ([facility]ER)[address] [place] [address] ERYTHROCYTE MEAN CORPUSCULAR HEMOGLOBIN CONCENTRATION (G/DL) BY AUTOMATED 34.1 g/dL Normal 32.0-35.0 [facility] Comment on above: Performed By: #### L [id number] ####[facility] ([facility])[address] [place] [address] Hematocrit (Bld) [Volume fraction] 23.2 % Low 39.0-50.0 [facility] Comment on above: Performed By: #### L [id number] ####[facility] ([facility])[address] [address] Hemoglobin (Bld) [Mass/Vol] 7.9 g/dL Low 13.0-17.0 [facility] Comment on above: Performed By: #### L [id number] ####[facility] ([facility])[address] [address] MCH (RBC) [Entitic mass] 30.6 pg Normal 27.0-33.0 [facility] Comment on above: Performed By: #### L [id number] ####[facility] ([facility])[address] [place] [address] MCV (RBC) [Entitic vol] 89.9 fL Normal 82.0-98.0 [facility] Comment on above: Performed By: #### L [id number] ####[facility] ([facility])[address] [place] [address] PLATELETS (10*3/UL) IN BLOOD AUTOMATED COUNT 199 10*3/uL Normal 150-400 [facility] Comment on above: Performed By: #### L [id number] ####[facility] ([facility])[address] [place] [address] RBC (Bld) [#/Vol] 2.58 10*6/uL Low 4.20-5.70 [facility] Comment on above: Performed By: #### L [id number] ####[facility] ([facility])[address] [address] WBC (Bld) [#/Vol] 7.09 10*3/uL Normal 4.00-10.60 [facility] Comment on above: Performed By: #### L [id number] ####[facility] (BEAKER)[address] [place] [address] COMPREHENSIVE METABOLIC PANE Rogelio 02-26-2025 Albumin [Mass/Vol] 2.9 g/dL Low 3.5-5.7 [facility] Comment on above: Performed By: #### L [id number] ####[facility] ([facility]ER)[address] [place] [address] ALP [Catalytic activity/Vol] 54 U/L Normal 34-104 [facility] Comment on above: Performed By: #### L [id number] ####[facility] ([facility])[address] [place] [address] ALT [Catalytic activity/Vol] 24 U/L Normal 7-52 [facility] Comment on above: Performed By: #### L [id number] ####[facility] ([facility])[address] [place] [address] Anion gap [Moles/Vol] 7 mmol/L Normal 7-20 [facility] Comment on above: Performed By: #### L [id number] ####[facility] ([facility])[address] [place] [address] AST [Catalytic activity/Vol] 16 U/L Normal 13-39 [facility] Comment on above: Performed By: #### L [id number] ####[facility] ([facility])[address] [place] [address] Bilirubin [Mass/Vol] 3.5 mg/dL High 0.3-1.0 [facility] Comment on above: Performed By: #### L [id number] ####[facility] ([facility])[address] [place] [address] Calcium [Mass/Vol] 7.9 mg/dL Low 8.6-10.3 [facility] Comment on above: Performed By: #### L [id number] ####[facility] (BEAKER)[address] [place] [address] Chloride [Moles/Vol] 103 mmol/L Normal 98-107 [facility] Comment on above: Performed By: #### L [id number] ####[facility] (BEAKER)[address] [place] [address] CO2 [Moles/Vol] 27 mmol/L Normal 21-31 [facility] Comment on above: Performed By: #### L [id number] ####[facility] (BEAKER)[address] [place] [address] Creatinine [Mass/Vol] 0.80 mg/dL Normal 0.70-1.30 [facility] Comment on above: Performed By: #### L [id number] ####[facility] [place] [address] GLOMERULAR FILTRATION RATE ML/MIN/1.73 SQ M.PREDICTED 102.6 mL/min/1.73m*2 Normal >60.0 [facility] Comment on above: Result Comment: [facility]???s estimated glomerular filtration rate (eGFR) will [...] of individuals. Performed By: #### L [id number] ####[facility] [facility] [place] [address] Glucose [Mass/Vol] 94 mg/dL Normal 70-100 [facility] Comment on above: Performed By: #### L [id number] ####[facility] ([facility])[address] [place] [address] Potassium [Moles/Vol] 3.9 mmol/L Normal 3.5-5.1 [facility] Comment on above: Performed By: #### L [id number] ####[facility] ([facility])[address] [place] [address] Protein [Mass/Vol] 4.8 g/dL Low 6.0-8.3 [facility] Comment on above: Performed By: #### L [id number] ####[facility] ([facility])[address] [address] Sodium [Moles/Vol] 133 mmol/L Low 136-145 [facility] Comment on above: Performed By: #### L [id number] ####[facility] ([facility])[address] [place] [address] Urea nitrogen [Mass/Vol] 25 mg/dL Normal 7-25 [facility] Comment on above: Performed By: #### L [id number] ####[facility] ([facility])[address] [place] [address] UREA NITROGEN/CREATININE (MASS RATIO) IN SER/PLAS 31.3 Normal [facility] Comment on above: Performed By: #### L [id number] ####[facility] ([facility])[address] [place] [address] FERRITINon 02-26-2025 FERRITIN (NG/ML) IN SER/PLAS 234.0 ng/mL Normal 24.0-336.0 [facility] Comment on above: Performed By: #### L [id number] ####[facility] ([facility])[address] [place] [address] FOLATEon 02-26-2025 FOLATE (NG/ML) IN SER/PLAS 17.66 ng/mL Normal 6.6-1000 [facility] Comment on above: Performed By: #### L [id number] ####[facility] ([facility])[address] [place] [address] IRON AND TIBCon 02-26-2025 IRON (UG/DL) IN SER/PLAS 20 ug/dL Low 50-212 [facility] Comment on above: Performed By: #### L [id number] ####[facility] ([facility] [place] [address] IRON BINDING CAPACITY (UG/DL) IN SER/PLAS 227 ug/dL Low 250-450 [facility] Comment on above: Performed By: #### L [id number] ####[facility] ([facility])[address] [place] [address] IRON BINDING CAPACITY.UNSATURATE D (UG/DL) IN SER/PLAS 207.0 ug/dL Normal 155.0-355.0 [facility] Comment on above: Performed By: #### L [id number] ####[facility] ([facility])[address] [place] [address] IRON SATURATION (%) IN SER/PLAS 9 % Low 20-50 [facility] Comment on above: Performed By: #### L [id number] ####[facility] ([facility])[address] [place] [address] MAGNESIUMon 02-26-2025 Magnesium [Mass/Vol] 2.2 mg/dL Normal 1.9-2.7 [facility] Comment on above: Performed By: #### L [id number] ####[facility] ([facility])[address] [place] [address] PHOSPHORUSon 02-26-2025 Magnesium [Mass/Vol] 1.8 mg/dL Low 2.5-5.0 [facility] Comment on above: Performed By: #### L [id number] ####[facility] ([facility])[address] [place] [address] RETICULOCYTE PANELon 025 HEMOGLOBIN (PG) IN RETICULOCYTES 33.0 pg Normal 28.0-36.0 [facility] Comment on above: Performed By: #### L [id number] ####[facility] ([facility])[address] [place] [address] IMMATURE RETICULOCYTE FRACTION (%) 36.5 % High 2-16 [facility] Comment on above: Performed By: #### L [id number] ####[facility] ([facility])[address] [place] [address] RETICULOCYTES (10*6/UL) IN BLOOD 0.0781 10*6/uL Normal 0.0250-0.1000 [facility] Comment on above: Performed By: #### L [id number] ####[facility] ([facility])[address] [address] Reticulocytes/100 RBC (Bld) 2.79 % High 0.50-1.80 [facility] Comment on above: Performed By: #### L [id number] ####[facility] ([facility])[address] [address] VITAMIN B12on 02-26-2025 Cobalamin (Vitamin B12) [Mass/Vol] 1129 pg/mL High 180-914 [facility] Comment on above: Result Comment: REFE RENCE RANGES:180-914 pg/mL [id number] pg/mL Indeterminate<145 pg/mL Deficient Performed By: #### L [id number] ####[facility] ([facility])[address] [address] 30on 02-25-2025 30 Normal [facility] CBCon 02-25-2025 Erythrocyte distribution width (RBC) [Ratio] 17.7 % High 11.5-15.0 [facility] Comment on above: Performed By: #### L [id number] ####[facility] ([facility])[address] [address] ERYTHROCYTE MEAN CORPUSCULAR HEMOGLOBIN CONCENTRATION (G/DL) BY AUTOMATED 34.8 g/dL Normal 32.0-35.0 [facility] Comment on above: Performed By: #### L [id number] ####[facility] ([facility])[address] [place], [place] [address] Hematocrit (Bld) [Volume fraction] 23.3 % Low 39.0-50.0 [facility] Comment on above: Performed By: #### L [id number] ####[facility] ([facility])[address] [place], [place] [address] Hemoglobin (Bld) [Mass/Vol] 8.1 g/dL Low 13.0-17.0 [facility] Comment on above: Performed By: #### L [id number] ####[facility] ([facility])[address] [address] MCH (RBC) [Entitic mass] 31.2 pg Normal 27.0-33.0 [facility] Comment on above: Performed By: #### L [id number] ####[facility] ([facility])[address] [address] MCV (RBC) [Entitic vol] 89.6 fL Normal 82.0-98.0 [facility] Comment on above: Performed By: #### L [id number] ####[facility] ([facility])[address] [address] PLATELETS (10*3/UL) IN BLOOD AUTOMATED COUNT 180 10*3/uL Normal 150-400 [facility] Comment on above: Performed By: #### L [id number] ####[facility] ([facility])[address] [address] RBC (Bld) [#/Vol] 2.60 10*6/uL Low 4.20-5.70 [facility] Comment on above: Performed By: #### L [id number] ####[facility] ([facility])[address] [address] WBC (Bld) [#/Vol] 7.74 10*3/uL Normal 4.00-10.60 [facility] Comment on above: Performed By: #### L [id number] ####[facility] ([facility])[address] [address] Erythrocyte distribution width (RBC) [Ratio] 17.7 % High 11.5-15.0 [facility] Comment on above: Performed By: #### L [id number] ####[facility] ([facility])[address] [address] ERYTHROCYTE MEAN CORPUSCULAR HEMOGLOBIN CONCENTRATION (G/DL) BY AUTOMATED 34.6 g/dL Normal 32.0-35.0 [facility] Comment on above: Performed By: #### L [id number] ####[facility] ([facility])[address] [place] [address] Hematocrit (Bld) [Volume fraction] 26.0 % Low 39.0-50.0 [facility] Comment on above: Performed By: #### L [id number] ####[facility] ([facility])[address] [place], [place] [address] Hemoglobin (Bld) [Mass/Vol] 9.0 g/dL Low 13.0-17.0 [facility] Comment on above: Performed By: #### L [id number] ####[facility] ([facility])[address] [place] [address] MCH (RBC) [Entitic mass] 31.0 pg Normal 27.0-33.0 [facility] Comment on above: Performed By: #### L [id number] ####[facility] ([facility])[address] [place], [place] [address] MCV (RBC) [Entitic vol] 89.7 fL Normal 82.0-98.0 [facility] Comment on above: Performed By: #### L [id number] ####[facility] ([facility])[address] [place] [address] PLATELETS (10*3/UL) IN BLOOD AUTOMATED COUNT 180 10*3/uL Normal 150-400 [facility] Comment on above: Performed By: #### L [id number] ####[facility] ([facility])[address] [place] [address] RBC (Bld) [#/Vol] 2.90 10*6/uL Low 4.20-5.70 [facility] Comment on above: Performed By: #### L [id number] ####[facility] ([facility])[address] [place], [place] [address] WBC (Bld) [#/Vol] 8.04 10*3/uL Normal 4.00-10.60 [facility] Comment on above: Performed By: #### L [id number] ####[facility] ([facility])[address] [place] [address] Erythrocyte distribution width (RBC) [Ratio] 17.7 % High 11.5-15.0 [facility] Comment on above: Performed By: #### L [id number] ####[facility] ([facility])[address] [address] ERYTHROCYTE MEAN CORPUSCULAR HEMOGLOBIN CONCENTRATION (G/DL) BY AUTOMATED 34.2 g/dL Normal 32.0-35.0 [facility] Comment on above: Performed By: #### L [id number] ####[facility] ([facility])[address] [address] Hematocrit (Bld) [Volume fraction] 24.3 % Low 39.0-50.0 [facility] Comment on above: Performed By: #### L [id number] ####[facility] ([facility])[address] [place], [place] [address] Hemoglobin (Bld) [Mass/Vol] 8.3 g/dL Low 13.0-17.0 [facility] Comment on above: Performed By: #### L [id number] ####[facility] ([facility])[address] [place], [place] [address] MCH (RBC) [Entitic mass] 30.6 pg Normal 27.0-33.0 [facility] Comment on above: Performed By: #### L [id number] ####[facility] ([facility])[address] [place], [place] [address] MCV (RBC) [Entitic vol] 89.7 fL Normal 82.0-98.0 [facility] Comment on above: Performed By: #### L [id number] ####[facility] ([facility])[address] [place], [place] [address] PLATELETS (10*3/UL) IN BLOOD AUTOMATED COUNT 158 10*3/uL Normal 150-400 [facility] Comment on above: Performed By: #### L [id number] ####[facility] ([facility])[address] [address] RBC (Bld) [#/Vol] 2.71 10*6/uL Low 4.20-5.70 [facility] Comment on above: Performed By: #### L [id number] ####[facility] ([facility])[address] [place] [address] WBC (Bld) [#/Vol] 7.39 10*3/uL Normal 4.00-10.60 [facility] Comment on above: Performed By: #### L [id number] ####[facility] ([facility])[address] [place] [address] Erythrocyte distribution width (RBC) [Ratio] 15.8 % High 11.5-15.0 [facility] Comment on above: Performed By: #### L [id number] ####[facility] ([facility])[address] [place] [address] ERYTHROCYTE MEAN CORPUSCULAR HEMOGLOBIN CONCENTRATION (G/DL) BY AUTOMATED 33.9 g/dL Normal 32.0-35.0 [facility] Comment on above: Performed By: #### L [id number] ####[facility] ([facility])[address] [place] [address] Hematocrit (Bld) [Volume fraction] 22.7 % Low 39.0-50.0 [facility] Comment on above: Performed By: #### L [id number] ####[facility] ([facility])[address] [place] [address] Hemoglobin (Bld) [Mass/Vol] 7.7 g/dL Low 13.0-17.0 [facility] Comment on above: Performed By: #### L [id number] ####[facility] ([facility])[address] [place] [address] MCH (RBC) [Entitic mass] 31.0 pg Normal 27.0-33.0 [facility] Comment on above: Performed By: #### L [id number] ####[facility] ([facility])[address] [place] [address] MCV (RBC) [Entitic vol] 91.5 fL Normal 82.0-98.0 [facility] Comment on above: Performed By: #### L [id number] ####[facility] ([facility])[address] [place] [address] PLATELETS (10*3/UL) IN BLOOD AUTOMATED COUNT 172 10*3/uL Normal 150-400 [facility] Comment on above: Performed By: #### L [id number] ####[facility] ([facility])[address] [place] [address] RBC (Bld) [#/Vol] 2.48 10*6/uL Low 4.20-5.70 [facility] Comment on above: Performed By: #### L [id number] ####[facility] ([facility])[address] [place] [address] WBC (Bld) [#/Vol] 8.90 10*3/uL Normal 4.00-10.60 [facility] Comment on above: Performed By: #### L [id number] ####[facility] ([facility])[address] [place] [address] Erythrocyte distribution width (RBC) [Ratio] 15.8 % High 11.5-15.0 [facility] Comment on above: Performed By: #### L [id number] ####[facility] ([facility])[address] [place] [address] ERYTHROCYTE MEAN CORPUSCULAR HEMOGLOBIN CONCENTRATION (G/DL) BY AUTOMATED 35.0 g/dL Normal 32.0-35.0 [facility] Comment on above: Performed By: #### L [id number] ####[facility] ([facility])[address] [place] [address] Hematocrit (Bld) [Volume fraction] 23.7 % Low 39.0-50.0 [facility] Comment on above: Performed By: #### L [id number] ####[facility] ([facility])[address] [place] [address] Hemoglobin (Bld) [Mass/Vol] 8.3 g/dL Low 13.0-17.0 [facility] Comment on above: Performed By: #### L [id number] ####[facility] ([facility])[address] [place] [address] MCH (RBC) [Entitic mass] 31.7 pg Normal 27.0-33.0 [facility] Comment on above: Performed By: #### L [id number] ####[facility] ([facility])[address] [place] [address] MCV (RBC) [Entitic vol] 90.5 fL Normal 82.0-98.0 [facility] Comment on above: Performed By: #### L [id number] ####[facility] ([facility])[address] [place] [address] PLATELETS (10*3/UL) IN BLOOD AUTOMATED COUNT 178 10*3/uL Normal 150-400 [facility] Comment on above: Performed By: #### L [id number] ####[facility] ([facility])[address] [place] [address] RBC (Bld) [#/Vol] 2.62 10*6/uL Low 4.20-5.70 [facility] Comment on above: Performed By: #### L [id number] ####[facility] ([facility])[address] [address] WBC (Bld) [#/Vol] 10.11 10*3/uL Normal 4.00-10.60 [facility] Comment on above: Performed By: #### L [id number] ####[facility] ([facility])[address] [place] [address] COMPREHENSIVE METABOLIC PANE Rogelio 02-25-2025 Albumin [Mass/Vol] 3.1 g/dL Low 3.5-5.7 [facility] Comment on above: Performed By: #### L [id number] ####[facility] ([facility])[address] [place] [address] ALP [Catalytic activity/Vol] 54 U/L Normal 34-104 [facility] Comment on above: Performed By: #### L [id number] ####[facility] ([facility])[address] [place] [address] ALT [Catalytic activity/Vol] 27 U/L Normal 7-52 [facility] Comment on above: Performed By: #### L [id number] ####[facility] ([facility])[address] [place] [address] Anion gap [Moles/Vol] 9 mmol/L Normal 7-20 [facility] Comment on above: Performed By: #### L [id number] ####[facility] ([facility])[address] [place] [address] AST [Catalytic activity/Vol] 19 U/L Normal 13-39 [facility] Comment on above: Performed By: #### L [id number] ####[facility] ([facility])[address] [place] [address] Bilirubin [Mass/Vol] 2.8 mg/dL High 0.3-1.0 [facility] Comment on above: Performed By: #### L [id number] ####[facility] ([facility])[address] [place] [address] Calcium [Mass/Vol] 8.1 mg/dL Low 8.6-10.3 [facility] Comment on above: Performed By: #### L [id number] ####[facility] ([facility])[address] [place] [address] Chloride [Moles/Vol] 99 mmol/L Normal 98-107 [facility] Comment on above: Performed By: #### L [id number] ####[facility] ([facility])[address] [place] [address] CO2 [Moles/Vol] 29 mmol/L Normal 21-31 [facility] Comment on above: Performed By: #### L [id number] ####[facility] ([facility])[address] [place] [address] Creatinine [Mass/Vol] 1.36 mg/dL High 0.70-1.30 [facility] Comment on above: Performed By: #### L [id number] ####[facility] ([facility])[address] [place] [address] GLOMERULAR FILTRATION RATE ML/MIN/1.73 SQ M.PREDICTED 60.3 mL/min/1.73m*2 Normal >60.0 [facility] Comment on above: Result Comment: [facility]???s estimated glomerular filtration rate (eGFR) will [...] of individuals. Performed By: #### L [id number] ####[facility] ([facility])[address] [place] [address] Glucose [Mass/Vol] 102 mg/dL High 70-100 [facility] Comment on above: Performed By: #### L [id number] ####[facility] ([facility])[address] [place] [address] Potassium [Moles/Vol] 4.1 mmol/L Normal 3.5-5.1 [facility] Comment on above: Performed By: #### L [id number] ####[facility] ([facility])[address] [place] [address] Protein [Mass/Vol] 4.9 g/dL Low 6.0-8.3 [facility] Comment on above: Performed By: #### L [id number] ####[facility] ([facility])[address] [place] [address] Sodium [Moles/Vol] 133 mmol/L Low 136-145 [facility] Comment on above: Performed By: #### L [id number] ####[facility] ([facility])[address] [facility] [address] Urea nitrogen [Mass/Vol] 40 mg/dL High 7-25 [facility] Comment on above: Performed By: #### L [id number] ####[facility] ([facility])[address] [place] [address] UREA NITROGEN/CREATININE (MASS RATIO) IN SER/PLAS 29.4 Normal [facility] Comment on above: Performed By: #### L [id number] ####[facility] ([facility])[address] [place] [address] CTA ABDOMEN PELVIS W IV CONT RASTon 02-25-2025 CTA ABDOMEN PELVIS W IV CONTRAST Normal [facility] DIGOXIN LEVELon 02-25-2025 DIGOXIN (NG/ML) IN SER/PLAS 2.3 ng/mL Critically high 0.7-2 [facility] Comment on above: Performed By: #### L [id number] ####[facility] ([facility])[address] [place] [address] HEMOGLOBIN AND HEMATOCRIT, B LOODon 02-25-2025 Hematocrit (Bld) [Volume fraction] 22.8 % Low 39.0-50.0 [facility] Comment on above: Performed By: #### L [id number] ####[facility] ([facility])[address] [place] [address] Hemoglobin (Bld) [Mass/Vol] 7.9 g/dL Low 13.0-17.0 [facility] Comment on above: Performed By: #### L [id number] ####[facility] ([facility])[address] [place] [address] MAGNESIUMon 02-25-2025 Magnesium [Mass/Vol] 2.3 mg/dL Normal 1.9-2.7 [facility] Comment on above: Performed By: #### L [id number] ####[facility] ([facility])[address] [place] [address] PHOSPHORUSon 02-25-2025 Magnesium [Mass/Vol] 2.6 mg/dL Normal 2.5-5.0 [facility] Comment on above: Performed By: #### L [id number] ####[facility] ([facility])[address] [address] CBCon 02-24-2025 Erythrocyte distribution width (RBC) [Ratio] 15.8 % High 11.5-15.0 [facility] Comment on above: Performed By: #### L [id number] ####[facility] ([facility])[address] [address] ERYTHROCYTE MEAN CORPUSCULAR HEMOGLOBIN CONCENTRATION (G/DL) BY AUTOMATED 35.2 g/dL High 32.0-35.0 [facility] Comment on above: Performed By: #### L [id number] ####[facility] ([facility])[address] [address] Hematocrit (Bld) [Volume fraction] 24.4 % Low 39.0-50.0 [facility] Comment on above: Performed By: #### L [id number] ####[facility] ([facility])[address] [place] [address] Hemoglobin (Bld) [Mass/Vol] 8.6 g/dL Low 13.0-17.0 [facility] Comment on above: Performed By: #### L [id number] ####[facility] ([facility])[address] [place] [address] MCH (RBC) [Entitic mass] 31.5 pg Normal 27.0-33.0 [facility] Comment on above: Performed By: #### L [id number] ####[facility] ([facility] [place] [address] MCV (RBC) [Entitic vol] 89.4 fL Normal 82.0-98.0 [facility] Comment on above: Performed By: #### L [id number] ####[facility] ([facility])[address] [place] [address] PLATELETS (10*3/UL) IN BLOOD AUTOMATED COUNT 182 10*3/uL Normal 150-400 [facility] Comment on above: Performed By: #### L [id number] ####[facility] ([facility])[address] [address] RBC (Bld) [#/Vol] 2.73 10*6/uL Low 4.20-5.70 [facility] Comment on above: Performed By: #### L [id number] ####[facility] ([facility])[address] [address] WBC (Bld) [#/Vol] 12.23 10*3/uL High 4.00-10.60 [facility] Comment on above: Performed By: #### L [id number] ####[facility] ([facility])[address] [place] [address] Erythrocyte distribution width (RBC) [Ratio] 15.8 % High 11.5-15.0 [facility] Comment on above: Performed By: #### L [id number] ####[facility] ([facility])[address] [place] [address] ERYTHROCYTE MEAN CORPUSCULAR HEMOGLOBIN CONCENTRATION (G/DL) BY AUTOMATED 34.9 g/dL Normal 32.0-35.0 [facility] Comment on above: Performed By: #### L [id number] ####[facility] ([facility])[address] [place] [address] Hematocrit (Bld) [Volume fraction] 26.1 % Low 39.0-50.0 [facility] Comment on above: Performed By: #### L [id number] ####[facility] ([facility])[address] [place] [address] Hemoglobin (Bld) [Mass/Vol] 9.1 g/dL Low 13.0-17.0 [facility] Comment on above: Performed By: #### L [id number] ####[facility] ([facility])[address] [place] [address] MCH (RBC) [Entitic mass] 31.5 pg Normal 27.0-33.0 [facility] Comment on above: Performed By: #### L [id number] ####[facility] ([facility])[address] [place] [address] MCV (RBC) [Entitic vol] 90.3 fL Normal 82.0-98.0 [facility] Comment on above: Performed By: #### L [id number] ####[facility] ([facility])[address] [address] PLATELETS (10*3/UL) IN BLOOD AUTOMATED COUNT 196 10*3/uL Normal 150-400 [facility] Comment on above: Performed By: #### L [id number] ####[facility] ([facility])[address] [address] RBC (Bld) [#/Vol] 2.89 10*6/uL Low 4.20-5.70 [facility] Comment on above: Performed By: #### L [id number] ####[facility] ([facility])[address] [address] WBC (Bld) [#/Vol] 16.83 10*3/uL High 4.00-10.60 [facility] Comment on above: Performed By: #### L [id number] ####[facility] ([facility])[address] [address] Erythrocyte distribution width (RBC) [Ratio] 15.9 % High 11.5-15.0 [facility] Comment on above: Performed By: #### L [id number] ####[facility] ([facility])[address] [address] ERYTHROCYTE MEAN CORPUSCULAR HEMOGLOBIN CONCENTRATION (G/DL) BY AUTOMATED 34.1 g/dL Normal 32.0-35.0 [facility] Comment on above: Performed By: #### L [id number] ####[facility] (BEAKER)[address] [address] Hematocrit (Bld) [Volume fraction] 26.4 % Low 39.0-50.0 [facility] Comment on above: Performed By: #### L [id number] ####[facility] (BEAKER)[address] [address] Hemoglobin (Bld) [Mass/Vol] 9.0 g/dL Low 13.0-17.0 [facility] Comment on above: Performed By: #### L [id number] ####[facility] [place] [address] MCH (RBC) [Entitic mass] 31.5 pg Normal 27.0-33.0 [facility] Comment on above: Performed By: #### L [id number] ####[facility] ([facility])[address] [place] [address] MCV (RBC) [Entitic vol] 92.3 fL Normal 82.0-98.0 [facility] Comment on above: Performed By: #### L [id number] ####[facility] ([facility])[address] [place] [address] PLATELETS (10*3/UL) IN BLOOD AUTOMATED COUNT 173 10*3/uL Normal 150-400 [facility] Comment on above: Performed By: #### L [id number] ####[facility] ([facility])[address] [place] [address] RBC (Bld) [#/Vol] 2.86 10*6/uL Low 4.20-5.70 [facility] Comment on above: Performed By: #### L [id number] ####[facility] ([facility])[address] [place] [address] WBC (Bld) [#/Vol] 14.22 10*3/uL High 4.00-10.60 [facility] Comment on above: Performed By: #### L [id number] ####[facility] ([facility])[address] [place] [address] CHLORIDE, URINE, RANDOMon Chloride (U) [Moles/Vol] mmol/L Low 110-250 [facility] Comment on above: Performed By: #### L [id number] ####[facility] ([facility])[address] [place] [address] COMPREHENSIVE METABOLIC PANE Rogelio 02-24-2025 Albumin [Mass/Vol] 3.3 g/dL Low 3.5-5.7 [facility] Comment on above: Performed By: #### L [id number] ####[facility] ([facility])[address] [place] [address] ALP [Catalytic activity/Vol] 58 U/L Normal 34-104 [facility] Comment on above: Performed By: #### L [id number] ####[facility] ([facility])[address] [place] [address] ALT [Catalytic activity/Vol] 32 U/L Normal 7-52 [facility] Comment on above: Performed By: #### L [id number] ####[facility] ([facility])[address] [place] [address] Anion gap [Moles/Vol] 12 mmol/L Normal 7-20 [facility] Comment on above: Performed By: #### L [id number] ####[facility] ([facility])[address] [place] [address] AST [Catalytic activity/Vol] 24 U/L Normal 13-39 [facility] Comment on above: Performed By: #### L [id number] ####[facility] ([facility])[address] [place] [address] Bilirubin [Mass/Vol] 3.0 mg/dL High 0.3-1.0 [facility] Comment on above: Performed By: #### L [id number] ####[facility] ([facility])[address] [place] [address] Calcium [Mass/Vol] 8.5 mg/dL Low 8.6-10.3 [facility] Comment on above: Performed By: #### L [id number] ####[facility] ([facility])[address] [place] [address] Chloride [Moles/Vol] 99 mmol/L Normal 98-107 [facility] Comment on above: Performed By: #### L [id number] ####[facility] ([facility])[address] [place] [address] CO2 [Moles/Vol] 28 mmol/L Normal 21-31 [facility] Comment on above: Performed By: #### L [id number] ####[facility] ([facility])[address] [place] [address] Creatinine [Mass/Vol] 2.43 mg/dL High 0.70-1.30 [facility] Comment on above: Performed By: #### L [id number] ####[facility] ([facility])[address] [place] [address] GLOMERULAR FILTRATION RATE ML/MIN/1.73 SQ M.PREDICTED 30.1 mL/min/1.73m*2 Low >60.0 [facility] Comment on above: Result Comment: [facility]???s estimated glomerular filtration rate (eGFR) will [...] of individuals. Performed By: #### L [id number] ####[facility] ([facility])[address] [place] [address] Glucose [Mass/Vol] 104 mg/dL High 70-100 [facility] Comment on above: Performed By: #### L [id number] ####[facility] ([facility])[address] [place] [address] Potassium [Moles/Vol] 4.1 mmol/L Normal 3.5-5.1 [facility] Comment on above: Performed By: #### L [id number] ####[facility] ([facility])[address] [place] [address] Protein [Mass/Vol] 5.2 g/dL Low 6.0-8.3 [facility] Comment on above: Performed By: #### L [id number] ####[facility] ([facility])[address] [place] [address] Sodium [Moles/Vol] 135 mmol/L Low 136-145 [facility] Comment on above: Performed By: #### L [id number] ####[facility] ([facility])[address] [place] [address] Urea nitrogen [Mass/Vol] 52 mg/dL High 7-25 [facility] Comment on above: Performed By: #### L [id number] ####[facility] ([facility])[address] [place] [address] UREA NITROGEN/CREATININE (MASS RATIO) IN SER/PLAS 21.4 Normal [facility] Comment on above: Performed By: #### L [id number] ####[facility] ([facility])[address] [place] [address] CONSULTon 02-24-2025 CONSULT Normal [facility] CREATININE, URINE, RANDOMon 02-24-2025 Creatinine (U) [Mass/Vol] 170.0 mg/dL Normal 26-299 [facility] Comment on above: Performed By: #### L [id number] ####[facility] ([facility])[address] [place] [address] MAGNESIUMon 02-24-2025 Magnesium [Mass/Vol] 2.1 mg/dL Normal 1.9-2.7 [facility] Comment on above: Performed By: #### L [id number] ####[facility] ([facility])[address] [place] [address] OSMOLALITY, URINEon 02-25-20 25 OSMOLALITY, URINE 686 mOsm/kg Normal 80-1300 [facility] Comment on above: Result Comment: Test Performed by [facility] [address] [place] [address] - Released 02/24/2025 17:40 Performed By: #### L [id number] ####[employer] [id number] [place] [address] PHOSPHORUSon 08-27-2025 Magnesium [Mass/Vol] 5.4 mg/dL High 2.5-5.0 [facility] Comment on above: Performed By: #### L [id number] ####[facility] ([facility])[address] [place] [address] POTASSIUM, URINE, RANDOMon 0 02-24-2025 Potassium (U) [Moles/Vol] 107 mmol/L Normal [facility] Comment on above: Performed By: #### L [id number] ####[facility] ([facility])[address] [place] [address] SODIUM, URINE, RANDOMon 08- Sodium (U) [Moles/Vol] 15 mmol/L Normal [facility] Comment on above: Performed By: #### L [id number] ####[facility] ([facility])[address] [place] [address] URINALYSIS WITH MICROSCOPICo n 02-24-2025 BILIRUBIN, TOTAL PRESENCE IN URINE Negative Normal Negative [facility] Comment on above: Performed By: #### L [id number] ####[facility] ([facility])[address] [place] [address] CASTS IN URINE Present Abnormal None Seen [facility] Comment on above: Performed By: #### L [id number] ####[facility] ([facility])[address] [place] [address] Clarity (U) Cloudy Abnormal Clear [facility] Comment on above: Performed By: #### L [id number] ####[facility] ([facility])[address] [place] [address] Color (U) Yellow Normal Colorless, Yellow, Light-Yellow [facility] Comment on above: Performed By: #### L [id number] ####[facility] ([facility])[address] [place] [address] GLUCOSE (MG/DL) IN URINE Normal Normal Normal [facility] Comment on above: Performed By: #### L [id number] ####[facility] ([facility])[address] [place] [address] HEMOGLOBIN PRESENCE IN URINE Large Abnormal Negative [facility] Comment on above: Performed By: #### L [id number] ####[facility] ([facility])[address] [place] [address] HYALINE CASTS GRADED/LPF IN URINE SEDIMENT BY MICROSCOPY 3-5 Abnormal 0-2 [facility] Comment on above: Performed By: #### L [id number] ####[facility] ([facility])[address] [place] [address] Ketones Ql (U) Negative Normal Negative [facility] Comment on above: Performed By: #### L [id number] ####[facility] ([facility])[address] [place] [address] LEUKOCYTE ESTERASE PRESENCE IN URINE BY TEST STRIP Moderate Abnormal Negative [facility] Comment on above: Performed By: #### L [id number] ####[facility] ([facility])[address] [place] [address] MUCUS (#/LPF) IN URINE SEDIMENT Moderate Abnormal None Seen, Occasional, Few [facility] Comment on above: Performed By: #### L [id number] ####[facility] ([facility])[address] [place] [address] NITRITE PRESENCE IN URINE Negative Normal Negative [facility] Comment on above: Performed By: #### L [id number] ####[facility] ([facility])[address] [place] [address] pH (U) 5.5 [pH] Normal 5.0-8.0 [facility] Comment on above: Performed By: #### L [id number] ####[facility] ([facility])[address] [place] [address] Protein (U) [Mass/Vol] 30 mg/dL Abnormal Negative [facility] Comment on above: Performed By: #### L [id number] ####[facility] ([facility])[address] [place] [address] RBC (#/HPF) IN URINE SEDIMENT >20 Abnormal None Seen, 0-2 [facility] Comment on above: Performed By: #### L [id number] ####[facility] ([facility])[address] [place] [address] Specific gravity (U) [Rel density] 1.036 High 1.010-1.030 [facility] Comment on above: Performed By: #### L [id number] ####[facility] ([facility])[address] [place] [address] SQUAMOUS EPITHELIAL CELLS (#/LPF) IN URINE SEDIMENT Moderate Abnormal None Seen, Occasional, Few [facility] Comment on above: Performed By: #### L [id number] ####[facility] ([facility])[address] [place] [address] UROBILINOGEN (MG/DL) IN URINE Normal Normal Normal [facility] Comment on above: Performed By: #### L [id number] ####[facility] [facility] [address] WBC (LEUKOCYTE) (#/HPF) IN URINE SEDIMENT 21-50 Abnormal None Seen, 0-2 [facility] Comment on above: Performed By: #### L [id number] ####[facility] ([facility])[address] [place] [address] 30on 02-23-2024 30 Normal [facility] BASIC METABOLIC PANELon 01-30 Anion gap [Moles/Vol] 15 mmol/L Normal 7-20 [facility] Comment on above: Performed By: #### L [id number] ####[facility] ([facility])[address] [place] [address] Calcium [Mass/Vol] 9.1 mg/dL Normal 8.6-10.3 [facility] Comment on above: Performed By: #### L [id number] ####[facility] ([facility])[address] [place] [address] Chloride [Moles/Vol] 102 mmol/L Normal 98-107 [facility] Comment on above: Performed By: #### L [id number] ####[facility] ([facility])[address] [place] [address] CO2 [Moles/Vol] 25 mmol/L Normal 21-31 [facility] Comment on above: Performed By: #### L [id number] ####[facility] ([facility])[address] [place] [address] Creatinine [Mass/Vol] 2.01 mg/dL High 0.70-1.30 [facility] Comment on above: Performed By: #### L [id number] ####[facility] ([facility])[address] [place] [address] GLOMERULAR FILTRATION RATE ML/MIN/1.73 SQ M.PREDICTED 37.7 mL/min/1.73m*2 Low >60.0 [facility] Comment on above: Result Comment: [facility]???s estimated glomerular filtration rate (eGFR) will [...] of individuals. Performed By: #### L [id number] ####[facility] ([facility])[address] [place] [address] Glucose [Mass/Vol] 128 mg/dL High 70-100 [facility] Comment on above: Performed By: #### L [id number] ####[facility] ([facility])[address] [place] [address] Potassium [Moles/Vol] 4.5 mmol/L Normal 3.5-5.1 [facility] Comment on above: Performed By: #### L [id number] ####[facility] ([facility])[address] [place] [address] Sodium [Moles/Vol] 137 mmol/L Normal 136-145 [facility] Comment on above: Performed By: #### L [id number] ####[facility] ([facility])[address] [address] Urea nitrogen [Mass/Vol] 35 mg/dL High 7-25 [facility] Comment on above: Performed By: #### L [id number] ####[facility] ([facility])[address] [place] [address] UREA NITROGEN/CREATININE (MASS RATIO) IN SER/PLAS 17.4 Normal [facility] Comment on above: Performed By: #### L [id number] ####[facility] ([facility])[address] [address] BLOOD CULTUREon 02-23-2025 Bacteria identified Cx Nom (Bld) No growth at 5 days [facility] Comment on above: Performed By: #### L [id number] ####[facility] ([facility])[address] [address] Bacteria identified Cx Nom (Bld) No growth at 5 days [facility] Comment on above: Order Comment: From a different site than #1. Performed By: #### L [id number] ####[facility] ([facility])[address] [address] CBCon 02-23-2025 Erythrocyte distribution width (RBC) [Ratio] 15.9 % High 11.5-15.0 [facility] Comment on above: Performed By: #### L [id number] ####[facility] ([facility])[address] [place] [address] ERYTHROCYTE MEAN CORPUSCULAR HEMOGLOBIN CONCENTRATION (G/DL) BY AUTOMATED 34.6 g/dL Normal 32.0-35.0 [facility] Comment on above: Performed By: #### L [id number] ####[facility] ([facility])[address] [place] [address] Hematocrit (Bld) [Volume fraction] 25.4 % Low 39.0-50.0 [facility] Comment on above: Performed By: #### L [id number] ####[facility] ([facility])[address] [place] [address] Hemoglobin (Bld) [Mass/Vol] 8.8 g/dL Low 13.0-17.0 [facility] Comment on above: Performed By: #### L [id number] ####[facility] ([facility])[address] [place] [address] MCH (RBC) [Entitic mass] 31.5 pg Normal 27.0-33.0 [facility] Comment on above: Performed By: #### L [id number] ####[facility] ([facility])[address] [place] [address] MCV (RBC) [Entitic vol] 91.0 fL Normal 82.0-98.0 [facility] Comment on above: Performed By: #### L [id number] ####[facility] ([facility])[address] [place] [address] PLATELETS (10*3/UL) IN BLOOD AUTOMATED COUNT 171 10*3/uL Normal 150-400 [facility] Comment on above: Performed By: #### L [id number] ####[facility] ([facility])[address] [place] [address] RBC (Bld) [#/Vol] 2.79 10*6/uL Low 4.20-5.70 [facility] Comment on above: Performed By: #### L [id number] ####[facility] ([facility])[address] [place] [address] WBC (Bld) [#/Vol] 14.02 10*3/uL High 4.00-10.60 [facility] Comment on above: Performed By: #### L [id number] ####[facility] ([facility])[address] [place] [address] Erythrocyte distribution width (RBC) [Ratio] 15.9 % High 11.5-15.0 [facility] Comment on above: Performed By: #### L [id number] ####[facility] ([facility])[address] [place] [address] ERYTHROCYTE MEAN CORPUSCULAR HEMOGLOBIN CONCENTRATION (G/DL) BY AUTOMATED 35.4 g/dL High 32.0-35.0 [facility] Comment on above: Performed By: #### L [id number] ####[facility] ([facility])[address] [address] Hematocrit (Bld) [Volume fraction] 28.0 % Low 39.0-50.0 [facility] Comment on above: Performed By: #### L [id number] ####[facility] ([facility])[address] [address] Hemoglobin (Bld) [Mass/Vol] 9.9 g/dL Low 13.0-17.0 [facility] Comment on above: Performed By: #### L [id number] ####[facility] ([facility])[address] [place] [address] MCH (RBC) [Entitic mass] 31.6 pg Normal 27.0-33.0 [facility] Comment on above: Performed By: #### L [id number] ####[facility] ([facility])[address] [place] [address] MCV (RBC) [Entitic vol] 89.5 fL Normal 82.0-98.0 [facility] Comment on above: Performed By: #### L [id number] ####[facility] ([facility])[address] [place] [address] PLATELETS (10*3/UL) IN BLOOD AUTOMATED COUNT 192 10*3/uL Normal 150-400 [facility] Comment on above: Performed By: #### L [id number] ####[facility] ([facility])[address] [place] [address] RBC (Bld) [#/Vol] 3.13 10*6/uL Low 4.20-5.70 [facility] Comment on above: Performed By: #### L [id number] ####[facility] ([facility])[address] [place] [address] WBC (Bld) [#/Vol] 16.62 10*3/uL High 4.00-10.60 [facility] Comment on above: Performed By: #### L [id number] ####[facility] ([facility])[address] [place] [address] Erythrocyte distribution width (RBC) [Ratio] 15.8 % High 11.5-15.0 [facility] Comment on above: Performed By: #### L [id number] ####[facility] ([facility])[address] [place] [address] ERYTHROCYTE MEAN CORPUSCULAR HEMOGLOBIN CONCENTRATION (G/DL) BY AUTOMATED 35.3 g/dL High 32.0-35.0 [facility] Comment on above: Performed By: #### L [id number] ####[facility] ([facility])[address] [place] [address] Hematocrit (Bld) [Volume fraction] 29.5 % Low 39.0-50.0 [facility] Comment on above: Performed By: #### L [id number] ####[facility] ([facility])[address] [place] [address] Hemoglobin (Bld) [Mass/Vol] 10.4 g/dL Low 13.0-17.0 [facility] Comment on above: Performed By: #### L [id number] ####[facility] ([facility])[address] [place] [address] MCH (RBC) [Entitic mass] 31.6 pg Normal 27.0-33.0 [facility] Comment on above: Performed By: #### L [id number] ####[facility] ([facility])[address] [place] [address] MCV (RBC) [Entitic vol] 89.7 fL Normal 82.0-98.0 [facility] Comment on above: Performed By: #### L [id number] ####[facility] ([facility])[address] [place] [address] PLATELETS (10*3/UL) IN BLOOD AUTOMATED COUNT 200 10*3/uL Normal 150-400 [facility] Comment on above: Performed By: #### L [id number] ####[facility] ([facility])[address] [address] RBC (Bld) [#/Vol] 3.29 10*6/uL Low 4.20-5.70 [facility] Comment on above: Performed By: #### L [id number] ####[facility] ([facility])[address] [address] WBC (Bld) [#/Vol] 15.65 10*3/uL High 4.00-10.60 [facility] Comment on above: Performed By: #### L [id number] ####[facility] ([facility])[address] [address] Erythrocyte distribution width (RBC) [Ratio] 15.8 % High 11.5-15.0 [facility] Comment on above: Performed By: #### L [id number] ####[facility] ([facility])[address] [address] ERYTHROCYTE MEAN CORPUSCULAR HEMOGLOBIN CONCENTRATION (G/DL) BY AUTOMATED 35.0 g/dL Normal 32.0-35.0 [facility] Comment on above: Performed By: #### L [id number] ####[facility] ([facility])[address] [address] Hematocrit (Bld) [Volume fraction] 31.1 % Low 39.0-50.0 [facility] Comment on above: Performed By: #### L [id number] ####[facility] ([facility])[address] [place] [address] Hemoglobin (Bld) [Mass/Vol] 10.9 g/dL Low 13.0-17.0 [facility] Comment on above: Performed By: #### L [id number] ####[facility] ([facility])[address] [place] [address] MCH (RBC) [Entitic mass] 31.5 pg Normal 27.0-33.0 [facility] Comment on above: Performed By: #### L [id number] ####[facility] ([facility])[address] [address] MCV (RBC) [Entitic vol] 89.9 fL Normal 82.0-98.0 [facility] Comment on above: Performed By: #### L [id number] ####[facility] ([facility])[address] [place] [address] PLATELETS (10*3/UL) IN BLOOD AUTOMATED COUNT 214 10*3/uL Normal 150-400 [facility] Comment on above: Performed By: #### L [id number] ####[facility] ([facility])[address] [place], [place] [address] RBC (Bld) [#/Vol] 3.46 10*6/uL Low 4.20-5.70 [facility] Comment on above: Performed By: #### L [id number] ####[facility] ([facility])[address] [place] [address] WBC (Bld) [#/Vol] 14.82 10*3/uL High 4.00-10.60 [facility] Comment on above: Performed By: #### L [id number] ####[facility] ([facility])[address] [place] [address] Erythrocyte distribution width (RBC) [Ratio] 15.9 % High 11.5-15.0 [facility] Comment on above: Performed By: #### L [id number] ####[facility] ([facility])[address] [place] [address] ERYTHROCYTE MEAN CORPUSCULAR HEMOGLOBIN CONCENTRATION (G/DL) BY AUTOMATED 34.6 g/dL Normal 32.0-35.0 [facility] Comment on above: Performed By: #### L [id number] ####[facility] ([facility])[address] [place] [address] Hematocrit (Bld) [Volume fraction] 32.1 % Low 39.0-50.0 [facility] Comment on above: Performed By: #### L [id number] ####[facility] ([facility] [place] [address] Hemoglobin (Bld) [Mass/Vol] 11.1 g/dL Low 13.0-17.0 [facility] Comment on above: Performed By: #### L [id number] ####[facility] ([facility])[address] [place] [address] MCH (RBC) [Entitic mass] 31.4 pg Normal 27.0-33.0 [facility] Comment on above: Performed By: #### L [id number] ####[facility] ([facility])[address] [place] [address] MCV (RBC) [Entitic vol] 90.9 fL Normal 82.0-98.0 [facility] Comment on above: Performed By: #### L [id number] ####[facility] ([facility])[address] [place] [address] PLATELETS (10*3/UL) IN BLOOD AUTOMATED COUNT 213 10*3/uL Normal 150-400 [facility] Comment on above: Performed By: #### L [id number] ####[facility] ([facility])[address] [address] RBC (Bld) [#/Vol] 3.53 10*6/uL Low 4.20-5.70 [facility] Comment on above: Performed By: #### L [id number] ####[facility] ([facility] [place] [address] WBC (Bld) [#/Vol] 13.82 10*3/uL High 4.00-10.60 [facility] Comment on above: Performed By: #### L [id number] ####[facility] ([facility])[address] [place] [address] COMPREHENSIVE METABOLIC PANE Rogelio 02-23-2025 Albumin [Mass/Vol] 3.5 g/dL Normal 3.5-5.7 [facility] Comment on above: Performed By: #### L [id number] ####[facility] ([facility])[address] [place] [address] ALP [Catalytic activity/Vol] 61 U/L Normal 34-104 [facility] Comment on above: Performed By: #### L [id number] ####[facility] ([facility])[address] [place] [address] ALT [Catalytic activity/Vol] 32 U/L Normal 7-52 [facility] Comment on above: Performed By: #### L [id number] ####[facility] ([facility])[address] [place] [address] Anion gap [Moles/Vol] 16 mmol/L Normal 7-20 [facility] Comment on above: Performed By: #### L [id number] ####[facility] ([facility])[address] [place] [address] AST [Catalytic activity/Vol] 25 U/L Normal 13-39 [facility] Comment on above: Performed By: #### L [id number] ####[facility] ([facility])[address] [place] [address] Bilirubin [Mass/Vol] 3.4 mg/dL High 0.3-1.0 [facility] Comment on above: Performed By: #### L [id number] ####[facility] ([facility]AKER)[address] [place] [address] Calcium [Mass/Vol] 8.9 mg/dL Normal 8.6-10.3 [facility] Comment on above: Performed By: #### L [id number] ####[facility] (BEAKER)[address] [place] [address] Chloride [Moles/Vol] 101 mmol/L Normal 98-107 [facility] Comment on above: Performed By: #### L [id number] ####[facility] (BEAKER)[address] [place] [address] CO2 [Moles/Vol] 24 mmol/L Normal 21-31 [facility] [facility] Comment on above: Performed By: #### L [id number] ####[facility] ([facility])[address] [place] [address] Creatinine [Mass/Vol] 2.27 mg/dL High 0.70-1.30 [facility] Comment on above: Performed By: #### L [id number] ####[facility] ([facility])[address] [place] [address] GLOMERULAR FILTRATION RATE ML/MIN/1.73 SQ M.PREDICTED 32.6 mL/min/1.73m*2 Low >60.0 [facility] Comment on above: Result Comment: [facility]???s estimated glomerular filtration rate (eGFR) will [...] of individuals. Performed By: #### L [id number] ####[facility] ([facility])[address] [place] [address] Glucose [Mass/Vol] 118 mg/dL High 70-100 [facility] Comment on above: Performed By: #### L [id number] ####[facility] ([facility])[address] [place] [address] Potassium [Moles/Vol] 4.5 mmol/L Normal 3.5-5.1 [facility] Comment on above: Performed By: #### L [id number] ####[facility] ([facility])[address] [place] [address] Protein [Mass/Vol] 5.5 g/dL Low 6.0-8.3 [facility] Comment on above: Performed By: #### L [id number] ####[facility] ([facility])[address] [place] [address] Sodium [Moles/Vol] 136 mmol/L Normal 136-145 [facility] Comment on above: Performed By: #### L [id number] ####[facility] ([facility])[address] [place] [address] Urea nitrogen [Mass/Vol] 39 mg/dL High 7-25 [facility] Comment on above: Performed By: #### L [id number] ####[facility] ([facility])[address] [place] [address] UREA NITROGEN/CREATININE (MASS RATIO) IN SER/PLAS 17.2 Normal [facility] Comment on above: Performed By: #### L [id number] ####[facility] ([facility])[place] [address] Consultation/Specialist Note on 02-23-2025 Consultation/Specia list Note [id number]#1. 00OTGTIFF [facility] LACTIC ACID WITH 4 HOUR REFL EXon 02-23-2025 LACTATE (MMOL/L) IN SER/PLAS 1.8 mmol/L Normal 0.5-2.2 [facility] Comment on above: Performed By: #### L [id number] ####[facility] ([facility])[address] [place] [address] MAGNESIUMon 02-23-2025 Magnesium [Mass/Vol] 2.0 mg/dL Normal 1.9-2.7 [facility] Comment on above: Performed By: #### L [id number] ####[facility] ([facility])[address] [place] [address] Outside Recordson 02-23-2025 Outside Records [id number]#1. 00OTGTIFF Normal [facility] Outside Records [id number]#1. 00OTGTIFF [facility] PHOSPHORUSon 02-23-2025 Magnesium [Mass/Vol] 6.1 mg/dL High 2.5-5.0 [facility] Comment on above: Performed By: #### L [id number] ####[facility] ([facility])[address] [place] [address] ANTI-XA (HEPARIN LEVEL)on HEPARIN UNFRACTIONATED (U/ML) IN PPP BY CHROMOGENIC METHOD 0.55 IU/mL Normal 0.3-0.7 [facility] Comment on above: Result Comment: [place] roxaban and Apixaban will interfere with the anti Xa assay used to monitor UFH and LMWH. Performed By: #### L [id number] ####[facility] ([facility])[address] [place] [address] HEPARIN UNFRACTIONATED (U/ML) IN PPP BY CHROMOGENIC METHOD 0.71 IU/mL High 0.3-0.7 [facility] Comment on above: Result Comment: [place] roxaban and Apixaban will interfere with the anti Xa assay used to monitor UFH and LMWH. Performed By: #### L [id number] ####[facility] ([facility])[address] [place] [address] BLOOD CULTUREon 02-22-2025 Bacteria identified Cx Nom (Bld) No growth at 5 days Normal [facility] Comment on above: Order Comment: From a different site than #1. Performed By: #### L [id number] ####[facility] ([facility])[address] [place] [address] CBCon 02-22-2025 Erythrocyte distribution width (RBC) [Ratio] 15.9 % High 11.5-15.0 [facility] Comment on above: Performed By: #### L [id number] ####[facility] ([facility])[address] [place] [address] ERYTHROCYTE MEAN CORPUSCULAR HEMOGLOBIN CONCENTRATION (G/DL) BY AUTOMATED 34.1 g/dL Normal 32.0-35.0 [facility] Comment on above: Performed By: #### L [id number] ####[facility] ([facility])[address] [place] [address] Hematocrit (Bld) [Volume fraction] 33.4 % Low 39.0-50.0 [facility] Comment on above: Performed By: #### L [id number] ####[facility] ([facility])[address] [place] [address] Hemoglobin (Bld) [Mass/Vol] 11.4 g/dL Low 13.0-17.0 [facility] Comment on above: Performed By: #### L [id number] ####[facility] ([facility])[address] [place] [address] MCH (RBC) [Entitic mass] 31.1 pg Normal 27.0-33.0 [facility] Comment on above: Performed By: #### L [id number] ####[facility] ([facility])[address] [place] [address] MCV (RBC) [Entitic vol] 91.3 fL Normal 82.0-98.0 [facility] Comment on above: Performed By: #### L [id number] ####[facility] ([facility])[address] [place] [address] PLATELETS (10*3/UL) IN BLOOD AUTOMATED COUNT 215 10*3/uL Normal 150-400 [facility] Comment on above: Performed By: #### L [id number] ####[facility] ([facility])[address] [place] [address] RBC (Bld) [#/Vol] 3.66 10*6/uL Low 4.20-5.70 [facility] Comment on above: Performed By: #### L [id number] ####[facility] ([facility])[address] [place] [address] WBC (Bld) [#/Vol] 10.74 10*3/uL High 4.00-10.60 [facility] Comment on above: Performed By: #### L [id number] ####[facility] ([facility])[address] [place] [address] Erythrocyte distribution width (RBC) [Ratio] 15.8 % High 11.5-15.0 [facility] Comment on above: Performed By: #### L [id number] ####[facility] ([facility])[address] [place] [address] ERYTHROCYTE MEAN CORPUSCULAR HEMOGLOBIN CONCENTRATION (G/DL) BY AUTOMATED 33.7 g/dL Normal 32.0-35.0 [facility] Comment on above: Performed By: #### L [id number] ####[facility] ([facility])[address] [place] [address] Hematocrit (Bld) [Volume fraction] 40.1 % Normal 39.0-50.0 [facility] Comment on above: Performed By: #### L [id number] ####[facility] ([facility])[address] [place] [address] Hemoglobin (Bld) [Mass/Vol] 13.5 g/dL Normal 13.0-17.0 [facility] Comment on above: Performed By: #### L [id number] ####[facility] ([facility])[address] [place] [address] MCH (RBC) [Entitic mass] 30.9 pg Normal 27.0-33.0 [facility] Comment on above: Performed By: #### L [id number] ####[facility] ([facility])[address] [address] MCV (RBC) [Entitic vol] 91.8 fL Normal 82.0-98.0 [facility] Comment on above: Performed By: #### L [id number] ####[facility] ([facility])[address] [place] [address] PLATELETS (10*3/UL) IN BLOOD AUTOMATED COUNT 257 10*3/uL Normal 150-400 [facility] Comment on above: Performed By: #### L [id number] ####[facility] ([facility])[address] [address] RBC (Bld) [#/Vol] 4.37 10*6/uL Normal 4.20-5.70 [facility] Comment on above: Performed By: #### L [id number] ####[facility] ([facility])[address] [place] [address] WBC (Bld) [#/Vol] 11.61 10*3/uL High 4.00-10.60 [facility] Comment on above: Performed By: #### L [id number] ####[facility] ([facility])[address] [place] [address] ERYTHROCYTE MEAN CORPUSCULAR HEMOGLOBIN CONCENTRATION (G/DL) BY AUTOMATED 34.2 g/dL Normal 32.0-35.0 [facility] Comment on above: Performed By: #### L [id number] ####[facility] ([facility])[address] [place] [address] Hematocrit (Bld) [Volume fraction] 45.0 % Normal 39.0-50.0 [facility] Comment on above: Performed By: #### L [id number] ####[facility] ([facility])[address] [place] [address] Hemoglobin (Bld) [Mass/Vol] 15.4 g/dL Normal 13.0-17.0 [facility] Comment on above: Performed By: #### L [id number] ####[facility] ([facility])[address] [place] [address] MCH (RBC) [Entitic mass] 31.3 pg Normal 27.0-33.0 [facility] Comment on above: Performed By: #### L [id number] ####[facility] ([facility])[address] [place] [address] MCV (RBC) [Entitic vol] 91.5 fL Normal 82.0-98.0 [facility] Comment on above: Performed By: #### L [id number] ####[facility] ([facility])[address] [place] [address] PLATELETS (10*3/UL) IN BLOOD AUTOMATED COUNT 242 10*3/uL Normal 150-400 [facility] Comment on above: Performed By: #### L [id number] ####[facility] ([facility])[address] [place] [address] RBC (Bld) [#/Vol] 4.92 10*6/uL Normal 4.20-5.70 [facility] Comment on above: Performed By: #### L [id number] ####[facility] ([facility])[address] [address] WBC (Bld) [#/Vol] 12.27 10*3/uL High 4.00-10.60 [facility] Comment on above: Performed By: #### L [id number] ####[facility] ([facility])[address] [place] [address] CBC WITH AUTO DIFFERENTIALon 02-22-2025 Basophils (Bld) [#/Vol] 0.02 10*3/uL Normal 0.00-0.20 [facility] Comment on above: Performed By: #### L [id number] ####[facility] ([facility])[address] [place] [address] Basophils/100 WBC (Bld) 0.2 % Normal 0.0-1.0 [facility] Comment on above: Performed By: #### L [id number] ####[facility] ([facility])[address] [place] [address] Eosinophils (Bld) [#/Vol] 0.00 10*3/uL Normal 0.00-0.50 [facility] Comment on above: Performed By: #### L [id number] ####[facility] ([facility])[address] [place] [address] Eosinophils/100 WBC (Bld) 0.0 % Normal 0.0-6.0 [facility] Comment on above: Performed By: #### L [id number] ####[facility] ([facility])[address] [place] [address] Erythrocyte distribution width (RBC) [Ratio] 15.9 % High 11.5-15.0 [facility] Comment on above: Performed By: #### L [id number] ####[facility] ([facility])[address] [place] [address] Performed By: #### L [id number] ####[facility] ([facility])[address] [place] [address] ERYTHROCYTE MEAN CORPUSCULAR HEMOGLOBIN CONCENTRATION (G/DL) BY AUTOMATED 32.9 g/dL Normal 32.0-35.0 [facility] Comment on above: Performed By: #### L [id number] ####[facility] ([facility])[address] [place] [address] Hematocrit (Bld) [Volume fraction] 42.5 % Normal 39.0-50.0 [facility] Comment on above: Performed By: #### L [id number] ####[facility] ([facility])[address] [place] [address] Hemoglobin (Bld) [Mass/Vol] 14.0 g/dL Normal 13.0-17.0 [facility] Comment on above: Performed By: #### L [id number] ####[facility] ([facility])[address] [place] [address] Immature granulocytes (Bld) [#/Vol] 0.05 10*3/uL Normal 0.00-0.20 [facility] Comment on above: Performed By: #### L [id number] ####[facility] ([facility])[address] [place] [address] Immature granulocytes/100 WBC (Bld) 0.5 % Normal 0.0-1.0 [facility] Comment on above: Performed By: #### L [id number] ####[facility] ([facility])[address] [place] [address] Lymphocytes (Bld) [#/Vol] 1.14 10*3/uL Low 1.20-4.00 [facility] Comment on above: Performed By: #### L [id number] ####[facility] ([facility])[address] [place] [address] Lymphocytes/100 WBC (Bld) 10.6 % Low 20.0-45.0 [facility] Comment on above: Performed By: #### L [id number] ####[facility] ([facility])[address] [place] [address] MCH (RBC) [Entitic mass] 30.8 pg Normal 27.0-33.0 [facility] Comment on above: Performed By: #### L [id number] ####[facility] ([facility])[address] [place] [address] MCV (RBC) [Entitic vol] 93.4 fL Normal 82.0-98.0 [facility] Comment on above: Performed By: #### L [id number] ####[facility] ([facility])[address] [place] [address] Monocytes (Bld) [#/Vol] 0.73 10*3/uL Normal 0.10-1.00 [facility] Comment on above: Performed By: #### L [id number] ####[facility] ([facility])[address] [place] [address] Monocytes/100 WBC (Bld) 6.8 % Normal 5.0-12.0 [facility] Comment on above: Performed By: #### L [id number] ####[facility] ([facility])[address] [place] [address] Neutrophils (Bld) [#/Vol] 8.79 10*3/uL High 1.60-7.60 [facility] Comment on above: Performed By: #### L [id number] ####[facility] ([facility])[address] [place] [address] Neutrophils/100 WBC (Bld) 81.9 % High 40.0-72.0 [facility] Comment on above: Performed By: #### L [id number] ####[facility] ([facility])[address] [place] [address] NRBC (PER 100 WBCS) BY AUTOMATED COUNT 0.0 % Normal 0 [facility] Comment on above: Performed By: #### L [id number] ####[facility] ([facility])[address] [place] [address] PLATELETS (10*3/UL) IN BLOOD AUTOMATED COUNT 224 10*3/uL Normal 150-400 [facility] Comment on above: Performed By: #### L [id number] ####[facility] ([facility])[address] [place] [address] RBC (Bld) [#/Vol] 4.55 10*6/uL Normal 4.20-5.70 [facility] Comment on above: Performed By: #### L [id number] ####[facility] ([facility])[address] [place] [address] WBC (Bld) [#/Vol] 10.73 10*3/uL High 4.00-10.60 [facility] Comment on above: Performed By: #### L [id number] ####[facility] ([facility])[address] [place] [address] COMPREHENSIVE METABOLIC PANE Rogelio 02-22-2025 Albumin [Mass/Vol] 4.0 g/dL Normal 3.5-5.7 [facility] Comment on above: Performed By: #### L [id number] ####[facility] ([facility])[address] [place] [address] Performed By: #### L [id number] ####[facility] ([facility])[address] [place] [address] ALP [Catalytic activity/Vol] 70 U/L Normal 34-104 [facility] Comment on above: Performed By: #### L [id number] ####[facility] ([facility])[address] [place] [address] ALT [Catalytic activity/Vol] 28 U/L Normal 7-52 [facility] Comment on above: Performed By: #### L [id number] ####[facility] ([facility])[address] [place] [address] Anion gap [Moles/Vol] 16 mmol/L Normal 7-20 [facility] Comment on above: Performed By: #### L [id number] ####[facility] ([facility])[address] [place] [address] AST [Catalytic activity/Vol] 22 U/L Normal 13-39 [facility] Comment on above: Performed By: #### L [id number] ####[facility] ([facility])[address] [place] [address] Performed By: #### L [id number] ####[facility] ([facility])[address] [place] [address] Bilirubin [Mass/Vol] 5.1 mg/dL High 0.3-1.0 [facility] Comment on above: Performed By: #### L [id number] ####[facility] ([facility])[address] [place] [address] Calcium [Mass/Vol] 9.4 mg/dL Normal 8.6-10.3 [facility] Comment on above: Performed By: #### L [id number] ####[facility] ([facility])[address] [place] [address] Chloride [Moles/Vol] 104 mmol/L Normal 98-107 [facility] Comment on above: Performed By: #### L [id number] ####[facility] ([facility])[address] [place] [address] CO2 [Moles/Vol] 24 mmol/L Normal 21-31 [facility] Comment on above: Performed By: #### L [id number] ####[facility] ([facility])[address] [place] [address] Creatinine [Mass/Vol] 1.43 mg/dL High 0.70-1.30 [facility] Comment on above: Performed By: #### L [id number] ####[facility] ([facility])[address] [place] [address] GLOMERULAR FILTRATION RATE ML/MIN/1.73 SQ M.PREDICTED 56.8 mL/min/1.73m*2 Low >60.0 [facility] Comment on above: Result Comment: [facility]???s estimated glomerular filtration rate (eGFR) will [...] of individuals. Performed By: #### L [id number] ####[facility] ([facility])[address] [place] [address] Glucose [Mass/Vol] 134 mg/dL High 70-100 [facility] Comment on above: Performed By: #### L [id number] ####[facility] ([facility])[address] [place] [address] Potassium [Moles/Vol] 4.5 mmol/L Normal 3.5-5.1 [facility] Comment on above: Performed By: #### L [id number] ####[facility] ([facility])[address] [place] [address] Protein [Mass/Vol] 6.2 g/dL Normal 6.0-8.3 [facility] Comment on above: Performed By: #### L [id number] ####[facility] ([facility])[address] [place] [address] Sodium [Moles/Vol] 139 mmol/L Normal 136-145 [facility] Comment on above: Performed By: #### L [id number] ####[facility] ([facility])[address] [place] [address] Urea nitrogen [Mass/Vol] 27 mg/dL High 7-25 [facility] Comment on above: Performed By: #### L [id number] ####[facility] ([facility])[address] [place] [address] UREA NITROGEN/CREATININE (MASS RATIO) IN SER/PLAS 18.9 Normal [facility] Comment on above: Performed By: #### L [id number] ####[facility] ([facility])[address] [place] [address] CONSULTon 02-22-2025 CONSULT Normal [facility] CONSULT Normal [facility] CT ABDOMEN PELVIS W IV CONTR Obi 02-22-2025 CT ABDOMEN PELVIS W IV CONTRAST Invalid Interpretation Code [facility] CT CHEST W IV CONTRASTon CT CHEST W IV CONTRAST Invalid Interpretation Code [facility] HEMOGLOBIN AND HEMATOCRIT, B LOODon 02-22-2025 Hematocrit (Bld) [Volume fraction] 42.9 % Normal 39.0-50.0 [facility] Comment on above: Performed By: #### L [id number] ####[facility] ([facility])[address] [place] [address] Hemoglobin (Bld) [Mass/Vol] 14.5 g/dL Normal 13.0-17.0 [facility] Comment on above: Performed By: #### L [id number] ####[facility] ([facility])[address] [place] [address] HEPATIC FUNCTION PANELon ALP [Catalytic activity/Vol] 72 U/L Normal 34-104 [facility] Comment on above: Performed By: #### L [id number] ####[facility] ([facility])[address] [place] [address] ALT [Catalytic activity/Vol] 30 U/L Normal 7-52 [facility] Comment on above: Performed By: #### L [id number] ####[facility] ([facility])[address] [place] [address] Bilirubin [Mass/Vol] 4.8 mg/dL High 0.3-1.0 [facility] Comment on above: Performed By: #### L [id number] ####[facility] ([facility])[address] [place] [address] Magnesium [Mass/Vol] 1.1 mg/dL High 0-0.2 [facility] Comment on above: Performed By: #### L [id number] ####[facility] ([facility])[address] [place] [address] Protein [Mass/Vol] 6.1 g/dL Normal 6.0-8.3 [facility] Comment on above: Performed By: #### L [id number] ####[facility] ([facility])[address] [place] [address] HIGH SENSITIVITY TROPONIN Io n 02-22-2025 HS TROPONIN I (NG/L) 27 ng/L High <20 [facility] Comment on above: Performed By: #### L [id number] ####[facility] ([facility])[address] [place] [address] HS TROPONIN I (NG/L) 31 ng/L High <20 [facility] Comment on above: Performed By: #### L [id number] ####[facility] ([facility])[address] [place] [address] HPon 02-22-2025 HP Normal [facility] LACTIC ACID WITH 4 HOUR REFL EXon 02-22-2025 LACTATE (MMOL/L) IN SER/PLAS 1.6 mmol/L Normal 0.5-2.2 [facility] Comment on above: Performed By: #### L [id number] ####[facility] ([facility])[address] [place] [address] LACTATE (MMOL/L) IN SER/PLAS 2.2 mmol/L Normal 0.5-2.2 [facility] Comment on above: Performed By: #### L [id number] ####[facility] ([facility])[address] [place] [address] MAGNESIUMon 02-22-2025 Magnesium [Mass/Vol] 1.8 mg/dL Low 1.9-2.7 [facility] Comment on above: Performed By: #### L [id number] ####[facility] ([facility])[address] [place] [address] Magnesium [Mass/Vol] 2.0 mg/dL Normal 1.9-2.7 [facility] Comment on above: Performed By: #### L [id number] ####[facility] ([facility])[address] [place] [address] NURSNOTEon 02-22-2025 NURSNOTE Shoulder Boner called rapid at 0607 am pt was hypotensive BP 53/38 [employer] nurse at bedside 0609 am. notified came to bedside, orders were placed. 0700 BP 91/63. Day shift [employer] nurse at bedside. Normal [facility] POCT GLUCOSE METER UNSOLICIT ED RESULTSon 02-22-2025 Glucose [Mass/Vol] 125 mg/dL High 70-105 [facility] Comment on above: Order Comment: Waive d Testing in the ED is performed under the ED CLIA certificate #[id number]. Result Comment: gila tello Performed By: #### L [id number] ####[facility] ([facility])[address] [place] [address] Glucose [Mass/Vol] 129 mg/dL High 70-105 [facility] Comment on above: Order Comment: Waive d Testing in the ED is performed under the ED CLIA certificate #[id number]. Result Comment: bib garcia Performed By: #### L [id number] ####[facility] ([facility])[address] [place] [address] PROTIME-INRon 02-22-2025 INR IN PPP BY COAGULATION ASSAY 1.47 High 0.90-1.10 [facility] Comment on above: Result Comment: ACCC [...] CHEST 1995;[id number]. Performed By: #### L [id number] ####[facility] ([employer])[address] [place] [address] PROTHROMBIN TIME (PT) IN PPP BY COAGULATION ASSAY 17.9 Seconds High 12.3-14.8 [facility] Comment on above: Performed By: #### L [id number] ####[facility] ([employer])[address] [place] [address] TYPE AND SCREENon 02-22-2025 AB SCREEN Negative Normal [facility] Comment on above: Performed By: #### L [id number] ####[facility], ABO group Nom (Bld) O Normal [facility] Comment on above: Performed By: #### L [id number] ####[facility], RH TYPE IN BLOOD Positive Normal [facility] Comment on above: Performed By: #### L [id number] ####[facility], URINALYSIS MICROSCOPIC WITH REFLEX CULTUREon 02-22-2025 RBC (#/HPF) IN URINE SEDIMENT >20 Abnormal None Seen, 0-2 [facility] Comment on above: Performed By: #### L [id number] ####[facility] ([facility])[address] [place] [address] SQUAMOUS EPITHELIAL CELLS (#/LPF) IN URINE SEDIMENT None Seen Normal None Seen, Occasional, Few [facility] Comment on above: Performed By: #### L [id number] ####[facility] ([facility])[address] [place] [address] WBC (LEUKOCYTE) (#/HPF) IN URINE SEDIMENT None Seen Normal None Seen, 0-2 [facility] Comment on above: Performed By: #### L [id number] ####[facility] ([facility])[address] [place] [address] URINALYSIS WITH REFLEX CULTU REon 02-22-2025 BILIRUBIN, TOTAL PRESENCE IN URINE Negative Normal Negative [facility] Comment on above: Performed By: #### L [id number] ####[facility] ([facility])[address] [place] [address] Clarity (U) Turbid Abnormal Clear [facility] Comment on above: Performed By: #### L [id number] ####[facility] ([facility])[address] [place] [address] Color (U) Red Abnormal Colorless, Yellow, Light-Yellow [facility] Comment on above: Performed By: #### L [id number] ####[facility] ([facility])[address] [place] [address] GLUCOSE (MG/DL) IN URINE Normal Normal Normal [facility] Comment on above: Performed By: #### L [id number] ####[facility] ([facility])[address] [place] [address] HEMOGLOBIN PRESENCE IN URINE Large Abnormal Negative [facility] Comment on above: Performed By: #### L [id number] ####[facility] ([facility])[address] [place] [address] Ketones Ql (U) Negative Normal Negative [facility] Comment on above: Performed By: #### L [id number] ####[facility] ([facility])[address] [place] [address] LEUKOCYTE ESTERASE PRESENCE IN URINE BY TEST STRIP Trace Abnormal Negative [facility] Comment on above: Performed By: #### L [id number] ####[facility] ([facility])[address] [place] [address] NITRITE PRESENCE IN URINE Negative Normal Negative [facility] Comment on above: Performed By: #### L [id number] ####[facility] ([facility])[address] [place] [address] pH (U) 5.5 [pH] Normal 5.0-8.0 [facility] Comment on above: Performed By: #### L [id number] ####[facility] ([facility])[address] [place] [address] Protein (U) [Mass/Vol] 30 mg/dL Abnormal Negative [facility] Comment on above: Performed By: #### L [id number] ####[facility] ([facility])[address] [place] [address] Specific gravity (U) [Rel density] >1.050 High 1.010-1.030 [facility] Comment on above: Performed By: #### L [id number] ####[facility] ([facility])[address] [place] [address] UROBILINOGEN (MG/DL) IN URINE Normal Normal Normal [facility] Comment on above: Performed By: #### L [id number] ####[facility] ([facility])[address] [place] [address] 30on 02-21-2025 30 Normal [facility] ANTI-XA (HEPARIN LEVEL)on HEPARIN UNFRACTIONATED (U/ML) IN PPP BY CHROMOGENIC METHOD 0.57 IU/mL Normal 0.3-0.7 [facility] Comment on above: Result Comment: [place] roxaban and Apixaban will interfere with the anti Xa assay used to monitor UFH and LMWH. Performed By: #### L [id number] ####[facility] ([facility])[address] [place] [address] APTTon 02-21-2025 ACTIVATED PARTIAL THROMBOPLASTIN TIME IN PPP BY COAGULATION ASSAY 117.9 Seconds High 25.0-35.0 [facility] Comment on above: Result Comment: Clin ical significance of the APTT is questionable in the presence of heparin. Performed By: #### L [id number] ####[facility] ([facility])[address] [place] [address] BASIC METABOLIC PANELon 01-30 Anion gap [Moles/Vol] 13 mmol/L Normal 7-20 [facility] Comment on above: Performed By: #### L [id number] ####[facility] (BEAKER)[address] [place] [address] Calcium [Mass/Vol] 8.9 mg/dL Normal 8.6-10.3 [facility] Comment on above: Performed By: #### L [id number] ####[facility] (BEAKER)[address] [place] [address] Chloride [Moles/Vol] 104 mmol/L Normal 98-107 [facility] Comment on above: Performed By: #### L [id number] ####[facility] [place] [address] CO2 [Moles/Vol] 26 mmol/L Normal 21-31 [facility] Comment on above: Performed By: #### L [id number] ####[facility] ([facility] [place] [address] Creatinine [Mass/Vol] 0.99 mg/dL Normal 0.70-1.30 [facility] Comment on above: Performed By: #### L [id number] ####[facility] ([facility])[address] [place] [address] GLOMERULAR FILTRATION RATE ML/MIN/1.73 SQ M.PREDICTED 88.3 mL/min/1.73m*2 Normal >60.0 [facility] Comment on above: Result Comment: [facility]???s estimated glomerular filtration rate (eGFR) will [...] of individuals. Performed By: #### L [id number] ####[facility] ([facility])[address] [place] [address] Glucose [Mass/Vol] 86 mg/dL Normal 70-100 [facility] Comment on above: Performed By: #### L [id number] ####[facility] (BEAKER)[address] [place] [address] Potassium [Moles/Vol] 4.0 mmol/L Normal 3.5-5.1 [facility] Comment on above: Performed By: #### L [id number] ####[facility] ([facility])[address] [place] [address] Sodium [Moles/Vol] 139 mmol/L Normal 136-145 [facility] Comment on above: Performed By: #### L [id number] ####[facility] ([facility])[address] [place] [address] Urea nitrogen [Mass/Vol] 16 mg/dL Normal 7-25 [facility] Comment on above: Performed By: #### L [id number] ####[facility] ([facility])[address] [place] [address] UREA NITROGEN/CREATININE (MASS RATIO) IN SER/PLAS 16.2 Normal [facility] Comment on above: Performed By: #### L [id number] ####[facility] ([facility])[address] [place] [address] CBCon 02-21-2025 Erythrocyte distribution width (RBC) [Ratio] 15.2 % High 11.5-15.0 [facility] Comment on above: Performed By: #### L [id number] ####[facility] ([facility])[address] [place] [address] ERYTHROCYTE MEAN CORPUSCULAR HEMOGLOBIN CONCENTRATION (G/DL) BY AUTOMATED 34.7 g/dL Normal 32.0-35.0 [facility] Comment on above: Performed By: #### L [id number] ####[facility] ([facility])[address] [place] [address] Hematocrit (Bld) [Volume fraction] 44.4 % Normal 39.0-50.0 [facility] Comment on above: Performed By: #### L [id number] ####[facility] ([facility])[address] [place] [address] Hemoglobin (Bld) [Mass/Vol] 15.4 g/dL Normal 13.0-17.0 [facility] Comment on above: Performed By: #### L [id number] ####[facility] ([facility])[address] [place] [address] MCH (RBC) [Entitic mass] 31.0 pg Normal 27.0-33.0 [facility] Comment on above: Performed By: #### L [id number] ####[facility] ([facility])[address] [place] [address] MCV (RBC) [Entitic vol] 89.3 fL Normal 82.0-98.0 [facility] Comment on above: Performed By: #### L [id number] ####[facility] ([facility])[address] [place] [address] PLATELETS (10*3/UL) IN BLOOD AUTOMATED COUNT 177 10*3/uL Normal 150-400 [facility] Comment on above: Performed By: #### L [id number] ####[facility] ([facility])[address] [place] [address] RBC (Bld) [#/Vol] 4.97 10*6/uL Normal 4.20-5.70 [facility] Comment on above: Performed By: #### L [id number] ####[facility] ([facility])[address] [place] [address] WBC (Bld) [#/Vol] 7.24 10*3/uL Normal 4.00-10.60 [facility] Comment on above: Performed By: #### L [id number] ####[facility] ([facility])[address] [place] [address] CT ABDOMEN PELVIS WO IV CONT RASTon 02-21-2025 CT ABDOMEN PELVIS WO IV CONTRAST Invalid Interpretation Code [facility] 30on 02-20-2025 30 Normal [facility] 30 Normal [facility] 30 Normal [facility] ANTI-XA (HEPARIN LEVEL)on HEPARIN UNFRACTIONATED (U/ML) IN PPP BY CHROMOGENIC METHOD 0.55 IU/mL Normal 0.3-0.7 [facility] Comment on above: Result Comment: [place] roxaban and Apixaban will interfere with the anti Xa assay used to monitor UFH and LMWH. Performed By: #### L [id number] ####[facility] ([facility])[address] [place] [address] HEPARIN UNFRACTIONATED (U/ML) IN PPP BY CHROMOGENIC METHOD 0.61 IU/mL Normal 0.3-0.7 [facility] Comment on above: Result Comment: [place] roxaban and Apixaban will interfere with the anti Xa assay used to monitor UFH and LMWH. Performed By: #### L [id number] ####[facility] ([facility])[address] [place] [address] HEPARIN UNFRACTIONATED (U/ML) IN PPP BY CHROMOGENIC METHOD 0.84 IU/mL High 0.3-0.7 [facility] Comment on above: Order Comment: Other specimen was sitting in tube station, unknown for how long specimen was stationed Result Comment: [place] roxaban and Apixaban will interfere with the anti Xa assay used to monitor UFH and LMWH. Performed By: #### L [id number] ####[facility] ([facility])[address] [place] [address] APTTon 02-20-2025 ACTIVATED PARTIAL THROMBOPLASTIN TIME IN PPP BY COAGULATION ASSAY 169.6 Seconds Critically high 25.0-35.0 [facility] Comment on above: Result Comment: Clin ical significance of the APTT is questionable in the presence of heparin. Performed By: #### L [id number] ####[facility] ([facility])[address] [place] [address] BASIC METABOLIC PANELon 01-30 Anion gap [Moles/Vol] 14 mmol/L Normal 7-20 [facility] Comment on above: Performed By: #### L [id number] ####[facility] ([facility])[address] [place] [address] Calcium [Mass/Vol] 8.7 mg/dL Normal 8.6-10.3 [facility] Comment on above: Performed By: #### L [id number] ####[facility] ([facility])[address] [place] [address] Chloride [Moles/Vol] 105 mmol/L Normal 98-107 [facility] Comment on above: Performed By: #### L [id number] ####[facility] ([facility])[address] [place] [address] CO2 [Moles/Vol] 25 mmol/L Normal 21-31 [facility] Comment on above: Performed By: #### L [id number] ####[facility] ([facility])[address] [place] [address] Creatinine [Mass/Vol] 0.99 mg/dL Normal 0.70-1.30 [facility] Comment on above: Performed By: #### L [id number] ####[facility] ([facility])[address] [place] [address] GLOMERULAR FILTRATION RATE ML/MIN/1.73 SQ M.PREDICTED 88.3 mL/min/1.73m*2 Normal >60.0 [facility] Comment on above: Result Comment: [facility]???s estimated glomerular filtration rate (eGFR) will [...] of individuals. Performed By: #### L [id number] ####[facility] ([facility])[address] [place] [address] Glucose [Mass/Vol] 59 mg/dL Low 70-100 [facility] Comment on above: Performed By: #### L [id number] ####[facility] (BEAKER)[address] [place] [address] Potassium [Moles/Vol] 3.8 mmol/L Normal 3.5-5.1 [facility] Comment on above: Performed By: #### L [id number] ####[facility] ([facility]ER)[address] [place] [address] Sodium [Moles/Vol] 140 mmol/L Normal 136-145 [facility] Comment on above: Performed By: #### L [id number] ####[facility] ([facility]ER)[address] [place] [address] Urea nitrogen [Mass/Vol] 16 mg/dL Normal 7-25 [facility] Comment on above: Performed By: #### L [id number] ####[facility] ([facility])[address] [place] [address] UREA NITROGEN/CREATININE (MASS RATIO) IN SER/PLAS 16.2 Normal [facility] Comment on above: Performed By: #### L [id number] ####[facility] ([facility])[address] [place] [address] HEMOGLOBIN AND HEMATOCRIT, B LOODon 02-20-2025 Hematocrit (Bld) [Volume fraction] 42.9 % Normal 39.0-50.0 [facility] Comment on above: Performed By: #### L [id number] ####[facility] ([facility]ER)[address] [place] [address] Hemoglobin (Bld) [Mass/Vol] 14.8 g/dL Normal 13.0-17.0 [facility] Comment on above: Performed By: #### L [id number] ####[facility] ([facility])[address] [place] [address] 30on 02-19-2025 30 Normal [facility] ANTI-XA (HEPARIN LEVEL)on HEPARIN UNFRACTIONATED (U/ML) IN PPP BY CHROMOGENIC METHOD 0.54 IU/mL Normal 0.3-0.7 [facility] Comment on above: Result Comment: [place] roxaban and Apixaban will interfere with the anti Xa assay used to monitor UFH and LMWH. Performed By: #### L [id number] ####[facility] ([facility])[address] [place] [address] HEPARIN UNFRACTIONATED (U/ML) IN PPP BY CHROMOGENIC METHOD 0.41 IU/mL Normal 0.3-0.7 [facility] Comment on above: Order Comment: Ok to draw AM labs at this timeCheck anti-Xa level every 6 hours while on heparin infusion, or per protocol. Result Comment: [place] roxaban and Apixaban will interfere with the anti Xa assay used to monitor UFH and LMWH. Performed By: #### L [id number] ####[facility] ([facility])[address] [place] [address] APTTon 02-19-2025 ACTIVATED PARTIAL THROMBOPLASTIN TIME IN PPP BY COAGULATION ASSAY 154.5 Seconds Critically high 25.0-35.0 [facility] Comment on above: Result Comment: Clin ical significance of the APTT is questionable in the presence of heparin. Performed By: #### L [id number] ####[facility] ([facility])[address] [place] [address] ACTIVATED PARTIAL THROMBOPLASTIN TIME IN PPP BY COAGULATION ASSAY 84.7 Seconds High 25.0-35.0 [facility] Comment on above: Order Comment: Check aPTT every 6 hours while on heparin infusion, or per protocol. Result Comment: Clin ical significance of the APTT is questionable in the presence of heparin. Performed By: #### L [id number] ####[facility] ([facility])[address] [place] [address] BASIC METABOLIC PANELon 01-30 Anion gap [Moles/Vol] 12 mmol/L Normal 7-20 [facility] Comment on above: Performed By: #### L [id number] ####[facility] ([facility])[address] [place] [address] Calcium [Mass/Vol] 8.3 mg/dL Low 8.6-10.3 [facility] Comment on above: Performed By: #### L [id number] ####[facility] (BE[facility]ER)[address] [place] [address] Chloride [Moles/Vol] 108 mmol/L High 98-107 [facility] Comment on above: Performed By: #### L [id number] ####[facility] ([facility]ER)[address] [place] [address] CO2 [Moles/Vol] 25 mmol/L Normal 21-31 [facility] Comment on above: Performed By: #### L [id number] ####[facility] ([facility] [place] [address] Creatinine [Mass/Vol] 1.07 mg/dL Normal 0.70-1.30 [facility] Comment on above: Performed By: #### L [id number] ####[facility] ([facility])[address] [place] [address] GLOMERULAR FILTRATION RATE ML/MIN/1.73 SQ M.PREDICTED 80.4 mL/min/1.73m*2 Normal >60.0 [facility] Comment on above: Result Comment: [facility]???s estimated glomerular filtration rate (eGFR) will [...] of individuals. Performed By: #### L [id number] ####[facility] ([facility])[address] [place] [address] Glucose [Mass/Vol] 75 mg/dL Normal 70-100 [facility] Comment on above: Performed By: #### L [id number] ####[facility] ([facility]ER)[address] [place] [address] Potassium [Moles/Vol] 3.8 mmol/L Normal 3.5-5.1 [facility] Comment on above: Performed By: #### L [id number] ####[facility] ([facility]ER)[address] [place] [address] Sodium [Moles/Vol] 141 mmol/L Normal 136-145 [facility] Comment on above: Performed By: #### L [id number] ####[facility] ([facility]ER)[address] [place] [address] Urea nitrogen [Mass/Vol] 19 mg/dL Normal 7-25 [facility] Comment on above: Performed By: #### L [id number] ####[facility] ([facility]ER)[address] [place] [address] UREA NITROGEN/CREATININE (MASS RATIO) IN SER/PLAS 17.8 Normal [facility] Comment on above: Performed By: #### L [id number] ####[facility] ([facility]ER)[address] [place] [address] CBCon 02-19-2025 Erythrocyte distribution width (RBC) [Ratio] 15.0 % Normal 11.5-15.0 [facility] Comment on above: Performed By: #### L [id number] ####[facility] ([facility]ER)[address] [place] [address] ERYTHROCYTE MEAN CORPUSCULAR HEMOGLOBIN CONCENTRATION (G/DL) BY AUTOMATED 34.0 g/dL Normal 32.0-35.0 [facility] Comment on above: Performed By: #### L [id number] ####[facility] ([facility]ER)[address] [place] [address] Hematocrit (Bld) [Volume fraction] 40.9 % Normal 39.0-50.0 [facility] Comment on above: Performed By: #### L [id number] ####[facility] ([facility]ER)[address] [place] [address] Hemoglobin (Bld) [Mass/Vol] 13.9 g/dL Normal 13.0-17.0 [facility] Comment on above: Performed By: #### L [id number] ####[facility] ([facility]ER)[address] [place] [address] MCH (RBC) [Entitic mass] 31.2 pg Normal 27.0-33.0 [facility] Comment on above: Performed By: #### L [id number] ####[facility] ([facility] [place] [address] MCV (RBC) [Entitic vol] 91.9 fL Normal 82.0-98.0 [facility] Comment on above: Performed By: #### L [id number] ####[facility] ([facility])[address] [place] [address] PLATELETS (10*3/UL) IN BLOOD AUTOMATED COUNT 165 10*3/uL Normal 150-400 [facility] Comment on above: Performed By: #### L [id number] ####[facility] ([facility])[address] [place] [address] RBC (Bld) [#/Vol] 4.45 10*6/uL Normal 4.20-5.70 [facility] Comment on above: Performed By: #### L [id number] ####[facility] ([facility])[address] [place], [place] [address] WBC (Bld) [#/Vol] 5.92 10*3/uL Normal 4.00-10.60 [facility] Comment on above: Performed By: #### L [id number] ####[facility] ([facility])[address] [place] [address] CONSULTon 02-19-2025 CONSULT Normal [facility] CONSULT Normal [facility] HIGH SENSITIVITY TROPONIN Io n 02-19-2025 HS TROPONIN I (NG/L) 30 ng/L High <20 [facility] Comment on above: Performed By: #### L [id number] ####[facility] ([facility])[address] [place] [address] HS TROPONIN I (NG/L) 29 ng/L High <20 [facility] Comment on above: Performed By: #### L [id number] ####[facility] ([facility])[address] [place] [address] HS TROPONIN I (NG/L) 30 ng/L High <20 [facility] Comment on above: Performed By: #### L [id number] ####[facility] ([facility])[address] [place] [address] HS TROPONIN I (NG/L) 27 ng/L High <20 [facility] Comment on above: Performed By: #### L [id number] ####[facility] ([facility])[address] [place] [address] HPon 02-19-2025 HP Normal [facility] MAGNESIUMon 02-19-2025 Magnesium [Mass/Vol] 1.9 mg/dL Normal 1.9-2.7 [facility] Comment on above: Performed By: #### L [id number] ####[facility] ([facility])[address] [place] [address] 30on 02-18-2025 30 Normal [facility] ANTI-XA (HEPARIN LEVEL)on HEPARIN UNFRACTIONATED (U/ML) IN PPP BY CHROMOGENIC METHOD <0.10 Invalid Interpretation Code 0.3-0.7 [facility] Comment on above: Order Comment: Check anti-Xa level every 6 hours while on heparin infusion, or per protocol. Result Comment: [place] roxaban and Apixaban will interfere with the anti Xa assay used to monitor UFH and LMWH. Performed By: #### L [id number] ####[facility] ([facility])[address] [place] [address] APTTon 02-18-2025 ACTIVATED PARTIAL THROMBOPLASTIN TIME IN PPP BY COAGULATION ASSAY 32.7 Seconds Normal 25.0-35.0 [facility] Comment on above: Order Comment: Basel ine aPTT before initiating heparin infusion. Result Comment: Clin ical significance of the APTT is questionable in the presence of heparin. Performed By: #### L [id number] ####[facility] ([facility])[address] [place] [address] B-TYPE NATRIURETIC PEPTIDEon 02-18-2025 Natriuretic peptide B (Bld) [Mass/Vol] 491 pg/mL High 0-100 [facility] Comment on above: Performed By: #### L [id number] ####[facility] ([facility] [place] [address] CBC WITH AUTO DIFFERENTIALon 02-18-2025 Basophils (Bld) [#/Vol] 0.02 10*3/uL Normal 0.00-0.20 [facility] Comment on above: Performed By: #### L [id number] ####[facility] ([facility])[address] [place] [address] Basophils/100 WBC (Bld) 0.3 % Normal 0.0-1.0 [facility] Comment on above: Performed By: #### L [id number] ####[facility] ([facility])[address] [place] [address] Eosinophils (Bld) [#/Vol] 0.08 10*3/uL Normal 0.00-0.50 [facility] Comment on above: Performed By: #### L [id number] ####[facility] ([facility])[address] [place] [address] Eosinophils/100 WBC (Bld) 1.1 % Normal 0.0-6.0 [facility] Comment on above: Performed By: #### L [id number] ####[facility] ([facility] [place] [address] Erythrocyte distribution width (RBC) [Ratio] 15.1 % High 11.5-15.0 [facility] Comment on above: Performed By: #### L [id number] ####[facility] ([facility])[address] [place] [address] ERYTHROCYTE MEAN CORPUSCULAR HEMOGLOBIN CONCENTRATION (G/DL) BY AUTOMATED 34.5 g/dL Normal 32.0-35.0 [facility] Comment on above: Performed By: #### L [id number] ####[facility] ([facility] [place] [address] Hematocrit (Bld) [Volume fraction] 41.7 % Normal 39.0-50.0 [facility] Comment on above: Performed By: #### L [id number] ####[facility] ([facility])[address] [place] [address] Hemoglobin (Bld) [Mass/Vol] 14.4 g/dL Normal 13.0-17.0 [facility] Comment on above: Performed By: #### L [id number] ####[facility] ([facility])[address] [place] [address] Immature granulocytes (Bld) [#/Vol] 0.03 10*3/uL Normal 0.00-0.20 [facility] Comment on above: Performed By: #### L [id number] ####[facility] ([facility])[address] [place] [address] Immature granulocytes/100 WBC (Bld) 0.4 % Normal 0.0-1.0 [facility] Comment on above: Performed By: #### L [id number] ####[facility] [facility] ([facility] [place] [address] Lymphocytes (Bld) [#/Vol] 1.51 10*3/uL Normal 1.20-4.00 [facility] Comment on above: Performed By: #### L [id number] ####[facility] (BEAKER)[address] [place] [address] Lymphocytes/100 WBC (Bld) 20.2 % Normal 20.0-45.0 [facility] Comment on above: Performed By: #### L [id number] ####[facility] (BEAKER)[address] [place] [address] MCH (RBC) [Entitic mass] 31.5 pg Normal 27.0-33.0 [facility] Comment on above: Performed By: #### L [id number] ####[facility] (BEAKER)[address] [place] [address] MCV (RBC) [Entitic vol] 91.2 fL Normal 82.0-98.0 [facility] Comment on above: Performed By: #### L [id number] ####[facility] (BE[facility]ER)[address] [place] [address] Monocytes (Bld) [#/Vol] 0.64 10*3/uL Normal 0.10-1.00 [facility] Comment on above: Performed By: #### L [id number] ####[facility] ([facility])[address] [place] [address] Monocytes/100 WBC (Bld) 8.5 % Normal 5.0-12.0 [facility] Comment on above: Performed By: #### L [id number] ####[facility] ([facility])[address] [place] [address] Neutrophils (Bld) [#/Vol] 5.21 10*3/uL Normal 1.60-7.60 [facility] Comment on above: Performed By: #### L [id number] ####[facility] [place] [address] Neutrophils/100 WBC (Bld) 69.5 % Normal 40.0-72.0 [facility] Comment on above: Performed By: #### L [id number] ####[facility] ([facility] [place] [address] NRBC (PER 100 WBCS) BY AUTOMATED COUNT 0.0 % Normal 0 [facility] Comment on above: Performed By: #### L [id number] ####[facility] ([facility] [place] [address] PLATELETS (10*3/UL) IN BLOOD AUTOMATED COUNT 195 10*3/uL Normal 150-400 [facility] Comment on above: Performed By: #### L [id number] ####[facility] (BEAKER)[address] [place] [address] RBC (Bld) [#/Vol] 4.57 10*6/uL Normal 4.20-5.70 [facility] Comment on above: Performed By: #### L [id number] ####[facility] ([facility] [place] [address] WBC (Bld) [#/Vol] 7.49 10*3/uL Normal 4.00-10.60 [facility] Comment on above: Performed By: #### L [id number] ####[facility] ([facility])[address] [place] [address] COMPREHENSIVE METABOLIC PANE Rogelio 02-18-2025 Albumin [Mass/Vol] 3.6 g/dL Normal 3.5-5.7 [facility] Comment on above: Performed By: #### L [id number] ####[facility] ([facility])[address] [place] [address] ALP [Catalytic activity/Vol] 58 U/L Normal 34-104 [facility] Comment on above: Performed By: #### L [id number] ####[facility] ([facility])[address] [place] [address] ALT [Catalytic activity/Vol] 30 U/L Normal 7-52 [facility] Comment on above: Performed By: #### L [id number] ####[facility] ([facility])[address] [place] [address] Anion gap [Moles/Vol] 11 mmol/L Normal 7-20 [facility] Comment on above: Performed By: #### L [id number] ####[facility] ([facility])[address] [place] [address] AST [Catalytic activity/Vol] 19 U/L Normal 13-39 [facility] Comment on above: Performed By: #### L [id number] ####[facility] ([facility])[address] [place] [address] Bilirubin [Mass/Vol] 3.6 mg/dL High 0.3-1.0 [facility] Comment on above: Performed By: #### L [id number] ####[facility] ([facility])[address] [place] [address] Calcium [Mass/Vol] 8.5 mg/dL Low 8.6-10.3 [facility] Comment on above: Performed By: #### L [id number] ####[facility] ([facility])[address] [address] Chloride [Moles/Vol] 108 mmol/L High 98-107 [facility] Comment on above: Performed By: #### L [id number] ####[facility] ([facility])[address] [place] [address] CO2 [Moles/Vol] 21 mmol/L Normal 21-31 [facility] Comment on above: Performed By: #### L [id number] ####[facility] ([facility])[address] [place] [address] Creatinine [Mass/Vol] 1.02 mg/dL Normal 0.70-1.30 [facility] Comment on above: Performed By: #### L [id number] ####[facility] ([facility])[address] [place] [address] GLOMERULAR FILTRATION RATE ML/MIN/1.73 SQ M.PREDICTED 85.2 mL/min/1.73m*2 Normal >60.0 [facility] Comment on above: Result Comment: [facility]???s estimated glomerular filtration rate (eGFR) will [...] of individuals. Performed By: #### L [id number] ####[facility] ([facility] [place] [address] Glucose [Mass/Vol] 88 mg/dL Normal 70-100 [facility] Comment on above: Performed By: #### L [id number] ####[facility] ([facility] [place] [address] Potassium [Moles/Vol] 4.0 mmol/L Normal 3.5-5.1 [facility] Comment on above: Performed By: #### L [id number] ####[facility] ([facility])[address] [place] [address] Protein [Mass/Vol] 5.5 g/dL Low 6.0-8.3 [facility] Comment on above: Performed By: #### L [id number] ####[facility] ([facility])[address] [place] [address] Sodium [Moles/Vol] 136 mmol/L Normal 136-145 [facility] Comment on above: Performed By: #### L [id number] ####[facility] ([facility])[address] [place] [address] Urea nitrogen [Mass/Vol] 21 mg/dL Normal 7-25 [facility] Comment on above: Performed By: #### L [id number] ####[facility] ([facility])[address] [place] [address] UREA NITROGEN/CREATININE (MASS RATIO) IN SER/PLAS 20.6 Normal [facility] Comment on above: Performed By: #### L [id number] ####[facility] ([facility])[address] [place] [address] HIGH SENSITIVITY TROPONIN Io n 02-18-2025 HS TROPONIN I (NG/L) 27 ng/L High <20 [facility] Comment on above: Performed By: #### L [id number] ####[facility] ([facility])[address] [place] [address] HPon 02-18-2025 HP Normal [facility] LACTIC ACID, PLASMAon 2024 LACTATE (MMOL/L) IN SER/PLAS 1.1 mmol/L Normal 0.5-2.2 [facility] Comment on above: Performed By: #### L [id number] ####[facility] ([facility])[address] [place] [address] MAGNESIUMon 02-18-2025 Magnesium [Mass/Vol] 2.1 mg/dL Normal 1.9-2.7 [facility] Comment on above: Performed By: #### L [id number] ####[facility] (PRAVEEN)[address] [place] [address] Outside Recordson 02-18-2025 Outside Records [id number]#1 .00OTGTIFF Normal [facility] Outside Records [id number]#1 .00OTGTIFF Normal [facility] Outside Records [id number]#1 .00OTGTIFF Normal [facility] Outside Records [id number]#1 .00OTGTIFF Normal [facility] Outside Records [id number]#1 .00OTGTIFF Normal [facility] Outside Records [id number]#1 .00OTGTIFF Normal [facility] PHOSPHORUSon 02-18-2025 Magnesium [Mass/Vol] 2.7 mg/dL Normal 2.5-5.0 [facility] Comment on above: Performed By: #### L [id number] ####[facility] (BEAKER)[address] [place] [address] PROTIME-INRon 02-18-2025 INR IN PPP BY COAGULATION ASSAY 1.47 High 0.90-1.10 [facility] Comment on above: Result Comment: ACCC [...] CHEST 1995;108:231S-246S. Performed By: #### L [id number] ####[facility] ([facility])[address] [place] [address] PROTHROMBIN TIME (PT) IN PPP BY COAGULATION ASSAY 17.9 Seconds High 12.3-14.8 [facility] Comment on above: Performed By: #### L [id number] ####[facility] ([facility])[address] [place] [address] TSH3 REFLEX TO FT4on 025 THYROTROPIN (MIU/L) IN SER/PLAS BY DETECTION LIMIT <= 0.05 MIU/L 3.22 mIU/L Normal 0.34-5.60 [facility] Comment on above: Performed By: #### L [id number] ####[facility] ([facility] [place] [address] Lab - Other Lab Resultson Lab - Other Lab Results [id number]#1 .00OTGTIFF Normal [facility] Orders Onlyon 06-01-2024 Orders Only Normal [facility] Lab - Other Lab Resultson Lab - Other Lab Results [id number]#1.00O TGTIFF Normal [facility] Patient Handouton 05-05-2024 Patient Handout [id number]#1. 00OTGTIFF Normal [facility] Patient Handout [id number]#1. 00OTGTIFF Normal [facility] CBC AUTO DIFFon 05-09-2022 BASO # 0.0 103/ul Normal 0.0-0.[address] [facility] Comment on above: Performed By: #### C BC #### [facility] [address] [place] [address] Dr. Anny Corcoran Basophils/100 WBC (Bld) 0.4 % Normal 0.2-2.[address] [facility] Comment on above: Performed By: #### C BC #### [facility] [address] [address] [address] Anny Corcoran EO # 0.1 103/ul Normal 0.0-0.[address] [facility] Comment on above: Performed By: #### C BC #### [facility] [address] [place] [address] Dr. Anny Corcoran Eosinophils/100 WBC (Bld) 1.5 % Normal 0.9-7.[address] [facility] Comment on above: Performed By: #### C BC #### [facility] [address] [place] [address] Dr. Anny Corcoran Erythrocyte distribution width (RBC) [Ratio] 14.1 % Normal 11.0-15.[address] [facility] Comment on above: Performed By: #### C BC #### [facility] [address] [place] [address] Dr. Anny Corcoran Hematocrit (Bld) [Volume fraction] 37.6 % Critically low 42.0-54.[address] [facility] Comment on above: Performed By: #### C BC #### [facility] [address] [place] [address] Dr. Anny Corcoran Hemoglobin (Bld) [Mass/Vol] 12.9 g/dL Critically low 14.0-18.[address] [facility] Comment on above: Performed By: #### C BC #### [facility] [address] [place] [address] Dr. Anny Corcoran IG # 0.01 10e3/ul Normal 0.00-0.[address] [facility] Comment on above: Performed By: #### C BC #### [facility] [address] [place] [address] Dr. Anny Corcoran IG % 0.2 % Normal 0.0-0.[address] [facility] Comment on above: Performed By: #### C BC #### [facility] [address] [place] [address] Dr. Anny Corcoran LYMPH # 1.1 103/ul Critically low 1.2-3.8 [facility] Comment on above: Performed By: #### C BC #### [facility] [address] [place] [address] Dr. Anny Corcoran Lymphocytes/100 WBC (Bld) 21.8 % Normal 20.5-60.[address] [facility] Comment on above: Performed By: #### C BC #### [facility] [address] [place] [address] Dr. Anny Corcoran MANUAL DIFF REQ NO Normal [facility] Comment on above: Performed By: #### C BC #### [facility] [address] [place] [address] Dr. Anny Corcoran MCH (RBC) [Entitic mass] 31.2 pg Normal 25.9-34.[address] [facility] Comment on above: Performed By: #### C BC #### [facility] [address] [place] [address] Dr. Anny Corcoran MCHC (RBC) [Mass/Vol] 34.3 g/dL Normal 29.9-35.[address] [facility] Comment on above: Performed By: #### C BC #### [facility] [address] [place] [address] Dr. Anny Corcoran MCV (RBC) [Entitic vol] 90.8 fL Normal 80.0-94.0 [facility] Comment on above: Performed By: #### C BC #### [facility] [address] [place] [address] Dr. Anny Corcoran MONO # 0.4 103/ul Normal 0.3-0.8 [facility] Comment on above: Performed By: #### C BC #### [facility] [address] [address] [address] Anny Corcoran Monocytes/100 WBC (Bld) 8.5 % Normal 1.7-12.[address] [facility] Comment on above: Performed By: #### C BC #### [facility] [address] [address] [address] Anny Corcoran NEUT # 3.5 103/ul Normal 1.4-6.5 [facility] Comment on above: Performed By: #### C BC #### [facility] [address] [address] [address] Anny Corcoran Neutrophils/100 WBC (Bld) 67.6 % Normal 43.0-75.[address] [facility] Comment on above: Performed By: #### C BC #### [facility] [address] [place] [address] Dr. Anny Corcoran Platelet mean volume (Bld) [Entitic vol] 9.4 fL Critically low 9.5-13.[address] [facility] Comment on above: Performed By: #### C BC #### [facility] [address] [address] [address] Anny Corcoran PLT 209 103/ul Normal 150-450 [facility] Comment on above: Performed By: #### C BC #### [facility] [address] [address] [address] Anny Corcoran RBC 4.14 106/ul Critically low 4.70-6.10 [facility] Comment on above: Performed By: #### C BC #### [facility] [address] [place] [address] Dr. Anny Corcoran WBC 5.2 103/ul Normal 4.0-11.[address] [facility] Comment on above: Performed By: #### C BC #### [facility] [address] [place] [address] Dr. Anny Corcoran LIPID PROFILEon 05-09-2022 CHOL-HDL RATIO NORM SEE BELOW Normal [facility] Comment on above: Result Comment: 3.3 - 4.4 LOW RISK 4.4 - 7.1 AVERAGE RISK 7.1 - 11.0 MODERATE RISK >11.0 HIGH RISK Performed By: #### L IPID, CMP #### [facility] [address] [address] [address] Anny Corcoran Cholesterol [Mass/Vol] 103 mg/dL Normal <=[address] [facility] Comment on above: Performed By: #### L IPID, CMP #### [facility] [address] [address] [address] Anny Corcoran Cholesterol in HDL [Mass/Vol] 54 mg/dL Normal 40-[address] [facility] Comment on above: Performed By: #### L IPID, CMP #### [facility] [address] [address] [address] Anny Corcoran Cholesterol in LDL [Mass/Vol] 43.8 mg/dL Normal [facility] Comment on above: Performed By: #### L IPID, CMP #### [facility] [address] [address] [address] Anny Corcoran Cholesterol.total/C holesterol in HDL [Mass ratio] 1.9 {ratio} Normal [facility] Comment on above: Performed By: #### L IPID, CMP #### [facility] [address] [address] [address] Anny Corcoran HDL NORMAL > or = 60 mg/dl - LO W CARDIOVASCULAR RISK <40 mg/dl - HIGH CARDIOVASCULAR RISK Normal [facility] Comment on above: Performed By: #### L IPID, CMP #### [facility] [address] [address] [address] Anny Corcoran LDL CALC NORMAL SEE BELOW Normal [facility] Comment on above: Result Comment: <100 mg/dl OPTIMAL 100 - 129 mg/dl NEAR OR ABOVE OPTIMAL 130 - 159 mg/dl BORDERLINE HIGH 160 - 189 mg/dl HIGH >190 mg/dl VERY HIGH Performed By: #### L IPID, CMP #### [facility] [address] [address] [address] Anny Corcoran Triglyceride [Mass/Vol] 26 mg/dL Normal <=[address] [facility] Comment on above: Performed By: #### L IPID, CMP #### [facility] [address] [place] [address] Dr. Anny Corcoran VLDL CALC 5.2 mg/dL Normal [facility] Comment on above: Performed By: #### L IPID, CMP #### [facility] [address] [place] [address] Dr. Anny Corcoran PROF 14(COMP METB)on 022 Albumin [Mass/Vol] 4.0 g/dL Normal 3.4-5.0 [facility] Comment on above: Performed By: #### L IPID, CMP #### [facility] [address] [place] [address] Dr. Anny Corcoran Albumin/Globulin [Mass ratio] 1.4 {ratio} Normal [facility] Comment on above: Performed By: #### L IPID, CMP #### [facility] [address] [place] [address] Dr. Anny Corcoran ALP [Catalytic activity/Vol] 106 U/L Normal 46-[address] [facility] Comment on above: Performed By: #### L IPID, CMP #### [facility] [address] [place] [address] Dr. Anny Corcoran ALT [Catalytic activity/Vol] 28 U/L Normal 16-[address] [facility] Comment on above: Performed By: #### L IPID, CMP #### [facility] [address] [place] [address] Dr. Anny Corcoran Anion gap [Moles/Vol] 7.3 mmol/L Normal [facility] Comment on above: Performed By: #### L IPID, CMP #### [facility] [address] [place] [address] Dr. Anny Corcoran AST [Catalytic activity/Vol] 23 U/L Normal 15-[address] [facility] Comment on above: Performed By: #### L IPID, CMP #### [facility] [address] [place] [address] Dr. Anny Corcoran Bilirubin [Mass/Vol] 2.7 mg/dL Critically high 0.2-1.[address] [facility] Comment on above: Performed By: #### L IPID, CMP #### [facility] [address] [address] [address] Anny Corcoran Calcium [Mass/Vol] 9.0 mg/dL Normal 8.5-10.1 [facility] Comment on above: Performed By: #### L IPID, CMP #### [facility] [address] [address] [address] Anny Corcoran Chloride [Moles/Vol] 104 mmol/L Normal 98-107 [facility] Comment on above: Performed By: #### L IPID, CMP #### [facility] [address] [address] [address] Anny Corcoran CO2 [Moles/Vol] 32.5 mmol/L Critically high 21.0-32.[address] [facility] Comment on above: Performed By: #### L IPID, CMP #### [facility] [address] [place] [address] Dr. Anny Corcoran Creatinine [Mass/Vol] 0.78 mg/dL Normal 0.70-1.[address] [facility] Comment on above: Performed By: #### L IPID, CMP #### [facility] [address] [place] [address] Dr. Anny Corcoran EGFR-AF SCOTTISH >60 Normal >=60 [facility] Comment on above: Performed By: #### L IPID, CMP #### [facility] [address] [place] [address] Dr. Anny Corcoran EGFR-NON AF SCOTTISH >60 Normal >=60 [facility] Comment on above: Performed By: #### L IPID, CMP #### [facility] [address] [place] [address] Dr. Anny Corcoran Globulin (S) [Mass/Vol] 2.8 g/dL Normal [facility] Comment on above: Performed By: #### L IPID, CMP #### [facility] [address] [address] [address] Anny Corcoran Glucose [Mass/Vol] 86 mg/dL Normal 74-106 [facility] Comment on above: Performed By: #### L IPID, CMP #### [facility] [address] [address] [address] Anny Corcoran Potassium [Moles/Vol] 3.8 mmol/L Normal 3.5-5.[address] [facility] Comment on above: Performed By: #### L IPID, CMP #### [facility] [address] [address] [address] Anny Corcoran Protein [Mass/Vol] 6.8 g/dL Normal 6.4-8.2 [facility] Comment on above: Performed By: #### L IPID, CMP #### [facility] [address] [address] [address] Anny Corcoran Sodium [Moles/Vol] 140 mmol/L Normal 136-145 [facility] Comment on above: Performed By: #### L IPID, CMP #### [facility] [address] [place] [address] Dr. Anny Corcoran Urea nitrogen [Mass/Vol] 19.0 mg/dL Critically high 7.0-18.[address] [facility] Comment on above: Performed By: #### L IPID, CMP #### [facility] [address] [place] [address] Dr. Anny Corcoran Urea nitrogen/Creatinine [Mass ratio] 24.4 mg/mg Normal [facility] Comment on above: Performed By: #### L IPID, CMP #### [facility] [address] [place] [address] Dr. Anny Corcoran LYME DISEASE AB, TOTAL AND I GM W/WB REFLon 06-01-2021 Lyme Disease Ab, Quant, IgM <0.80 Normal 0.00-0.[address] [facility] Comment on above: Result Comment: Nega tive <0.80 Equivocal 0.80 - 1.19 Positive >1.19 . IgM levels may peak at 3-6 weeks post infection, then gradually decline. Performed By: #### L YMA #### [facility] [address] [place] [address] Dr. Anny Corcoran Lyme IgG/IgM Ab <0.91 Normal 0.00-0.90 [facility] Comment on above: Result Comment: Nega tive <0.91 Equivocal 0.91 - 1.09 Positive >1.09 Performed By: #### L A #### [facility] [address] HEAD WO CONon [...] CANDIS MENDEZ Date: 2021-05-21 12:48 Normal [facility] Encounters Encounter Date Encounter Type Care Provider Facility Start: 03-23-2025 End: 03-23-2025 ambulatory HUMBLE BURGESS [facility] Start: 03-22-2025 End: 03-22-2025 ambulatory KAUSHAL REID [facility] Start: 03-18-2025 End: 03-18-2025 ambulatory IZZY HILL [facility] Start: 03-15-2025 End: 03-15-2025 ambulatory LAUREANO LINDER Facility:[facility] Start: 03-10-2025 End: 03-11-2025 ambulatory CE POZO [facility] Start: 03-04-2025 Evaluation and management of inpatient RUTH KRAMER [facility] Start: 03-04-2025 Evaluation and management of inpatient SHEELA ISIS [facility] Start: 03-03-2025 [facility]: 03-03-[facility] Start: 03-02-2025 [facility] Start: 02-25-2025 Evaluation and management of inpatient CATARINA SANFORD [facility] Start: 02-24-2025 Evaluation and management of inpatient EDNA MAURICE [facility] Start: 02-23-2025 Evaluation and management of inpatient RUTH [facility] Start: 02-22-2025 [facility] Start: 02-22-2025 Evaluation and management of inpatient RUTH [facility] Start: 02-22-2025 [facility] Start: 02-21-2025 Evaluation and management of inpatient IMELDA [facility] Start: 02-19-2025 Evaluation and management of inpatient SARAH REDMAN [facility] Start: 02-18-2025 Evaluation and management of inpatient SHEELA MARINELLI [facility] Start: 02-18-2025 End: 03-05-2025 Evaluation and management of inpatient SIMBA STANTON [facility] Start: 01-28-2025 ambulatory LAUREANO LINDER Facilit y:[facility] Start: 10-29-2024 End: 10-29-2024 ambulatory LAUREANO LINDER Facility:[facility] Start: 06-01-2024 End: 06[facility]01-20[facility] Start: 04-30-2024 End: 04-30-2024 ambulatory DO LAUREANO LINDER Facility:[facility] Start: 05-14-2022 Encounter for genera l adult medical examination without abnormal findings DR LAUREANO LINDER [facility] Start: 05-09-2022 End: 05-10-[address] LAUREANO LINDER Facility:[facility] Start: 05-09-2022 End: 05-10-2022 Encounter for general adult medical examination without abnormal findings DR LAUREANO LINDER Facility:[facility] Start: 05-30-2021 End: 05-31-[address] LAUREANO LINDER Facility:[facility] Start: 05-21-2021 End: 05-21-[address] KINGSLEY BARNETT Facility:[facility] Procedures Date Procedure Procedure Detail Performing Clinician Start: 03-10-2025 Follow-up visit [facility] Start: 06-01-2024 Follow-up visit [facility] Start: 05-09-[address] NELIA BARNETT Comment on above: Performed By: #### P SAD #### [facility] [address] [place] [address] Dr. Anny Corcoran Payers Date Payer Category Payer Unknown [id number] 2012 Unknown [id number] 1965 Unknown [id number] 2.16.84 [id number] 1965 Unknown [id number] 2.16.84 [id number] 1966 Unknown [id number] 2.16.84 [id number] 1966 Unknown [id number] 2.16.8 [id number] 1966 Unknown [id number] 2.16.8 [id number] 1966 Unknown [id number] 2.16.8 [id number] 1965 Unknown [id number] 2.16.8 [id number] Clinical Notes 06-01-2024 to 03-23-2025 Note Date & Type Note Facility 03-23-2025 Note [facility] 03-22-2025 Note [facility] 03-18-2025 Note [facility] 03-11-2025 Note [facility] 03-10-2025 Note [facility] 03-05-2025 Note [facility] 03-05-2025 Note Discharge Planning As per RUCC RN patient is agreeable to [facility]. Referrals made through [employer]. [facility] is able to accept. Added to AVS. [facility] 03-05-2025 Note [facility] 03-05-2025 Note [facility] 03-04-2025 Note [facility] 03-04-2025 Note [facility] 03-04-2025 Note [facility] 03-04-2025 Note [facility] 03-03-2025 Note [facility] 03-03-2025 Note [facility] 03-03-2025 Note [facility] 03-03-2025 Note [facility] 03-03-2025 Note [facility] 03-03-2025 Note [facility] 03-03-2025 Note [facility] 03-02-2025 Note [facility] 03-02-2025 Note [facility] 03-02-2025 Note [facility] 03-01-2025 Note [facility] 03-01-2025 Note [facility] 03-01-2025 Note [facility] 03-01-2025 Note [facility] 02-28-2025 Note [facility] 02-27-2025 Note [facility] 02-27-2025 Note [facility] 02-26-2025 Note [facility] 02-26-2025 Note [facility] 02-26-2025 Note [facility] 02-26-2025 Note [facility] 02-26-2025 Note [facility] 02-26-2025 Note [facility] 02-25-2025 Note [facility] 02-25-2025 Note [facility] 02-25-2025 Note [facility] 02-25-2025 Note [facility] 02-25-2025 Note [facility] 02-25-2025 Note [facility] 02-25-2025 Note [facility] 02-25-2025 Note [facility] 02-24-2025 Note [facility] 02-24-2025 Note [facility] 02-24-2025 Note [facility] 02-24-2025 Note [facility] 02-24-2025 Note [facility] 02-24-2025 Note [facility] 02-23-2025 Note [facility] 02-23-2025 Note [facility] 02-23-2025 Note [facility] 02-23-2025 Note [facility] 02-22-2025 Note [facility] 02-22-2025 Note [facility] 02-22-2025 Note - Seen on abdominal rectus abdominal muscles on CT abd/pelvis 02/21 - L noted to be bigger than R - Consider holding heparin - Hgb has been stable [facility] 02-22-2025 Note - Stable [facility] 02-22-2025 Note - Stable, Patient cu rrently not using CPAP [facility] 02-22-2025 Note [facility] 02-22-2025 Note - Valsartan and spir onolactone held - Blood pressure has been rather hypotensive [facility] 02-22-2025 Note [facility] 02-22-2025 Note [facility] 02-22-2025 Note [facility] 02-22-2025 Note [facility] 02-21-2025 Note [facility] 02-21-2025 Note [facility] 02-21-2025 Note - Continue current v alsartan, spironolactone and Toprol-XL for GDMT - Blood pressure has been within acceptable range on 8/24 AM [facility] 02-21-2025 Note [facility] 02-21-2025 Note [facility] 02-21-2025 Note - Stable [facility] 02-21-2025 Note - Stable, Patient cu rrently not using CPAP [facility] 02-21-2025 Note [facility] 02-20-2025 Note [facility] 02-20-2025 Note - Stable [facility] 02-20-2025 Note - Stable,Patient cur rently not using CPAP [facility] 02-20-2025 Note - Continue current l isinopril and Toprol-XL [facility] 02-20-2025 Note [facility] 02-20-2025 Note [facility] 02-20-2025 Note [facility] 02-19-2025 Note - Stable [facility] 02-19-2025 Note - Stable,Patient cur rently not using CPAP [facility] 02-19-2025 Note - Continue current l isinopril and Toprol-XL [facility] 02-19-2025 Note [facility] 02-19-2025 Note [facility] 02-19-2025 Note [facility] 02-19-2025 Note [facility] 02-19-2025 Note A/p reviewed and agreed [facility] 02-18-2025 Note - Cardiology consult [facility] 02-18-2025 Note - Stable [facility] 02-18-2025 Note - Continue labetalol [facility] 02-18-2025 Note [facility] 02-18-2025 Note - Small pericardial effusion noted on echocardiogram, cardiology consult [facility] 02-18-2025 Note [facility] 06-01-2024 Note [facility] Summary Purpose Family History No Family History Records FoundNo Family History Records FoundNo Family History Records Found Advance Directives No Advanced Directives Records FoundNo Advanced Directives Records FoundNo Advanced Directives Records Found Additional Source Comments (unrecognized sect ion and content) No Status Records FoundNo Status Records FoundNo Status Records Found INFORMATION SOURCE (unrecogn ized section and content) DATE CREATED AUTHOR 05/14/2022 [facility] DATE CREATED AUTHOR AUTHOR'S ORGANIZ ATION 03/17/2025 [facility] DATE CREATED AUTHOR AUTHOR'S ORGANIZ ATION 03/24/2025 [facility] FOR RECORDS PERTAINING TO PATIENTS WHO [...] BE BASED ON THE PRIMARY CLINICAL RECORDS. [facility] [facility]. provides no warranty or guarantee of the accuracy or completeness of information in this document.
[2025-03-25 10:18] LABS: Hematocrit 32.2 % (42.0-54.0); Hemoglobin 10.3 g/dL (14.0-18.0); Immature Granulocytes Abs Auto 0.14 10^3/uL (0.00-0.03); Immature Granulocytes Pct Auto 1.5 % (0.0-0.5); Lymphocytes Absolute Auto 1.1 10^3/uL (1.2-3.8); Mean Corpuscular HGB Conc 32.0 g/dL (29.9-35.2); Mean Corpuscular Hemoglobin 28.4 pg (25.9-34.0); Mean Corpuscular Volume 88.7 fL (80.0-94.0); Platelet Count 440 10^3/uL (150-450); Red Blood Count 3.63 10^6/uL (4.70-6.10); White Blood Count 9.3 10^3/uL (4.0-11.0)
[2025-03-25 10:42] LABS: Alanine Aminotransferase 23 U/L (16-63); Albumin Globulin Ratio 0.8; Albumin Level 3.0 g/dL (3.4-5.0); Alkaline Phosphatase 94 U/L (46-116); Anion Gap 8.5; Aspartate Amino Transferase 21 U/L (15-37); Blood Urea Nitrogen 18.0 mg/dL (7.0-18.0); Calcium 8.5 mg/dL (8.5-10.1); Carbon Dioxide 29.6 mmol/L (21.0-32.0); Chloride 102 mmol/L (98-107); Estimated GFR (African America >60 (>=60 mL/min/1.73m^2); Estimated GFR (Non-African Ame >60 (>=60 mL/min/1.73m^2); Globulin 3.8 g/dL; Glucose 62 mg/dL (74-106); Potassium 3.1 mmol/L (3.5-5.1); Sodium 137 mmol/L (136-145); Total Protein 6.8 g/dL (6.4-8.2)
== END 2025-03-25 10:01 | disposition home or self-care (01) ==
LOC: LAB 10:02
PROVIDERS: Family Provider Internal Medicine Interventional Cardiology; PCP Family Medicine
DX: R31.0 Gross hematuria (principal); D64.9 Anemia, unspecified; N13.30 Unspecified hydronephrosis; N17.9 Acute kidney failure, unspecified
CPT/HCPCS: 36415; 80053; 85025

== ENCOUNTER 2025-04-08 08:58 | Outpatient (OUT) | payer OTHER, SELFPAY ==
--- OUTSIDE RECORDS SUMMARY | 2025-04-08 09:08 | XMS_ITS | CCD ---
Author Organization [facility] Care Team Providers Care Tv Host Name Role Phone ANIBAL, DR KINGSLEY Mariee Attending Unavailabl e REINECK, DR KINGSLEY Mariee Consulting Unavailabl e REINECK, DR KINGSLEY Mariee Admitting Unavailabl e HOUSE, DR TINSLEY Primary Care Unavailable KLYM, CANDIS Consulting Unavailable HOUSE, DR TINSLEY Primary Care Unavailable HOUSE, DR TINSELY Admitting Unavailable HOUSE, DR TINSLEY Attending Unavailable HOUSE, DR TINSLEY Consulting Unavailable ELTAHAWY, DR DIAZ Consulting Unavailable HOUSE, DR TINSLEY Admitting Unavailable HOUSE, DR TINSLEY Attending Unavailable HOUSE, DR TINSLEY Consulting Unavailable HOUSE, DR TINSLEY Primary Care Unavailable HOUSE, LAUREANO Manuel Primary Care Unavailable HOUSE, DO LAUREANO Manuel Attending Unavailable HOUSE, DO LAUREANO Manuel Attending Unavailable HOUSE, LAUREANO Manuel Primary Care Unavailable HOUSE, LAUREANO Manuel Primary Care Unavailable HOUSE, DO LAUREANO Manuel Attending Unavailable HOUSE, LAUREANO Manuel Primary Care Unavailable HOUSE, DO LAUREANO Manuel Attending Unavailable CORCORAN, IMELDA CHUL Referring Unavailable SAFI, RUTH Referring Unavailable ALMAS, SAMAR Referring Unavailable SAFI, RUTH Referring Unavailable FEROZSARAH Referring Unavailable PIRKL, SHEELA Referring Unavailable SAFI, RUTH Referring Unavailable PIRKL, SHEELA Referring Unavailable KENNEY, KARINA Saenz Referring Unavailable SAFI, RUTH Referring Unavailable NAZZALCATARINA Referring Unavailable RATNAM, EDNA Referring Unavailable ELTAHAWY, EHAB Attending Unavailable CE POZO Attending Unavailable KAUSHAL REID Attending Unavailable HUMBLE BURGESS Attending Unavailable SAFI, RUTH Referring Unavailable IZZY HILL Attending Unavail able SIMBA STANTON Referring Unavailable SAFI, RUTH Admitting Unavailable SAFI, RUTH Attending Unavailable SAFI, RUTH Referring Unavailable CORCORAN, IMELDA CHUL Referring Unavailable Problems Active Problems Problem Classification [...] disease (4 sources) Atherosclerotic heart disease of [place] coronary artery without angina pectoris; Translations: [Unstable [...] Onset: 03-10-2025 Chronic Other aftercare (2 sources) snf (current) use of anticoagulants; Translations: [medical terminologist (current) use of anticoagulants] Onset: 03-22-2025 Episodic [...] Translations: [Bariatric surgery status] Onset: 02-18-2025 Episodic Superficial injury; contusion (2 sources) Contusion of abdominal wall, subsequent encounter; Translations: [Contusion of abdominal wall, subsequent encounter] Onset: 03-22-2025 Episodic Syncope (3 sources) Syncope and collapse; Translations: [Syncope and collapse] Onset: 03-10-2025 Episodic Past or Other Problems Problem Classification Problem Date Documented Da te Episodic/Chronic Other aftercare (1 source) Other medical terminologist (current) drug therapy; Translations: [OTH HALF-WAY CURRENT DRUG THERAPY] Onset: 05-23-2021 Episodic Other nervous system disorders (4 sources) Pruitt's palsy; 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] Onset: 05-30-2021 Episodic Other skin disorders (3 sources) Localized swelling, mass and lump, head; Translations: [LOCALIZED SWELLING MASS AND LUMP HEAD] Onset: 05-21-2021 Episodic Residual codes; unclassified (2 sources) Edema, unspecified; Translations: [Edema, unspecified] Onset: 06-01-2024 Episodic Results Test Name Value Interpretation Reference Range Facility Results Follow-Upon 04-01-20 Results Follow-Up [facility] Orders Onlyon 03-31-2025 Orders Only [facility] 36on 03-24-2025 36 I think we need to extend his leave at least until his follow-up ECHO. Can we make sure he has an ECHO with a visit following in May? Thank you [facility] 36on 03-23-2025 36 I thought cardiac rehab wanted clearance from scott? [facility] 36 Pt was seen by edwina carreon today, he needs ablation, do you want to extend sick leave? Ablations are booking out to Jul. Also cardiac rehab wants to know if he can start. [facility] Follow-Upon 03-23-2025 Follow-Up Normal [facility] Telephoneon 03-23-2025 Telephone Normal [facility] Follow-Upon 03-22-2025 Follow-Up [facility] Orders Onlyon 03-22-2025 Orders Only [facility] Follow-Upon 03-18-2025 Follow-Up [facility] 36on 03-15-2025 36 Yes, extend until he see's Scott. When I saw him, he told me he couldn't walk the grocery store 2 days in a row without feeling fatigued and he works at [employer]. [facility] 36on 03-11-2025 36 PT INFORMED HE STATE S HE WILL BE IN 03/12/25 IN THE MORNING [facility] 36 [facility] Documentationon 03-11-2025 Documentation [facility] Outside Recordson 03-11-2025 Outside Records [id number]#1. 00[facility] Outside Records [id number]#1. 00[facility] Outside Records [id number]#1. [facility] Telephoneon 03-11-2025 Telephone Normal [facility] 37on 03-10-2025 37 *Stop aspirin *Have lab work done in 2 weeks [facility] 36on 03-08-2025 36 [facility] Outside Recordson 03-08-2025 Outside Records [id number] [facility] Telephoneon 03-08-2025 Telephone [facility] 30on 03-05-2025 30 The patient is Moderately Stable - Low risk of patient condition declining or worsening The patient's goals for the shift include Comfort and rest The clinical goals for the shift include VSS and safety [facility] CBCon 03-05-2025 Erythrocyte distribution width (RBC) [Ratio] 16.3 % High 11.5-15.[address] [facility] Comment on above: Performed By: #### L [id number] ####[facility] [place] [address] ERYTHROCYTE MEAN CORPUSCULAR HEMOGLOBIN CONCENTRATION (G/DL) BY AUTOMATED 33.5 g/dL Normal 32.0-35.0 [facility] Comment on above: Performed By: #### L [id number] ####[facility] [place] [address] Hematocrit (Bld) [Volume fraction] 24.2 % Low 39.0-50.[address] [facility] Comment on above: Performed By: #### L [id number] ####[facility] ([facility])[address] [place] [address] Hemoglobin (Bld) [Mass/Vol] 8.1 g/dL Low 13.0-17.[address] [facility] Comment on above: Performed By: #### L [id number] ####[facility] [place] [address] MCH (RBC) [Entitic mass] 30.1 pg Normal 27.0-33.[address] [facility] Comment on above: Performed By: #### L [id number] ####[facility] [place] [address] MCV (RBC) [Entitic vol] 90.0 fL Normal 82.0-98.[address] [facility] Comment on above: Performed By: #### L [id number] ####[facility] [place] [address] PLATELETS (10*3/UL) IN BLOOD AUTOMATED COUNT 399 10*3/uL Normal 150-[address] [facility] Comment on above: Performed By: #### L [id number] ####[facility] [place] [address] RBC (Bld) [#/Vol] 2.69 10*6/uL Low 4.20-5.70 [facility] Comment on above: Performed By: #### L [id number] ####[facility] [place] [address] WBC (Bld) [#/Vol] 7.45 10*3/uL Normal 4.00-10.60 [facility] Comment on above: Performed By: #### L [id number] ####[facility] ([facility])[address] [place] [address] COMPREHENSIVE METABOLIC PANE Rogelio 03-05-2025 Albumin [Mass/Vol] 3.0 g/dL Low 3.5-5.7 [facility] Comment on above: Performed By: #### L [id number] ####[facility] ([facility])[address] [place] [address] ALP [Catalytic activity/Vol] 60 U/L Normal 34-[address] [facility] Comment on above: Performed By: #### L [id number] ####[facility] ([facility])[address] [place] [address] ALT [Catalytic activity/Vol] 15 U/L Normal 7-[address] [facility] Comment on above: Performed By: #### L [id number] ####[facility] ([facility])[address] [place] [address] Anion gap [Moles/Vol] 9 mmol/L Normal 7-[address] [facility] Comment on above: Performed By: #### L [id number] ####[facility] ([facility])[address] [place] [address] AST [Catalytic activity/Vol] 16 U/L Normal 13-[address] [facility] Comment on above: Performed By: #### L [id number] ####[facility] ([facility])[address] [place] [address] Bilirubin [Mass/Vol] 3.8 mg/dL High 0.3-1.[address] [facility] Comment on above: Performed By: #### L [id number] ####[facility] ([facility])[address] [place] [address] Calcium [Mass/Vol] 8.1 mg/dL Low 8.6-10.3 [facility] Comment on above: Performed By: #### L [id number] ####[facility] ([facility])[address] [place] [address] Chloride [Moles/Vol] 103 mmol/L Normal 98-[address] [facility] Comment on above: Performed By: #### L [id number] ####[facility] ([facility])[address] [place] [address] CO2 [Moles/Vol] 24 mmol/L Normal 21-31 [facility] Comment on above: Performed By: #### L [id number] ####[facility] ([facility])[address] [place] [address] Creatinine [Mass/Vol] 0.73 mg/dL Normal 0.70-1.[address] [facility] Comment on above: Performed By: #### L [id number] ####[facility] ([facility])[address] [place] [address] GLOMERULAR FILTRATION RATE ML/MIN/1.73 SQ M.PREDICTED 105.5 mL/min/1.73m*2 Normal >60.[address] [facility] Comment on above: Result Comment: The [facility]???s estimated glomerular filtration rate (eGFR) will [...] of individuals. Performed By: #### L [id number] ####[facility] ([facility])[address] [place] [address] Glucose [Mass/Vol] 85 mg/dL Normal 70-100 [facility] Comment on above: Performed By: #### L [id number] ####[facility] [place] [address] Potassium [Moles/Vol] 3.9 mmol/L Normal 3.5-5.[address] [facility] Comment on above: Performed By: #### L [id number] ####[facility] [place] [address] Protein [Mass/Vol] 5.2 g/dL Low 6.0-8.3 [facility] Comment on above: Performed By: #### L [id number] ####[facility] ([facility] [place] [address] Sodium [Moles/Vol] 132 mmol/L Low 136-145 [facility] Comment on above: Performed By: #### L [id number] ####[facility] [place] [address] Urea nitrogen [Mass/Vol] 13 mg/dL Normal 7-[address] [facility] Comment on above: Performed By: #### L [id number] ####[facility] ([facility])[address] [place] [address] UREA NITROGEN/CREATININE (MASS RATIO) IN SER/PLAS 17.8 [facility] Comment on above: Performed By: #### L [id number] ####[facility] [place] [address] DSon 03-05-2025 DS [facility] MAGNESIUMon 03-05-2025 Magnesium [Mass/Vol] 1.9 mg/dL Normal 1.9-2.[address] [facility] Comment on above: Performed By: #### L [id number] ####[facility] [place] [address] PHOSPHORUSon 03-05-2025 Magnesium [Mass/Vol] 3.0 mg/dL Normal 2.5-5.[address] [facility] Comment on above: Performed By: #### L [id number] ####[facility] ([facility])[address] [place] [address] 30on 03-04-2025 [address] [facility] 30 The patient is Moderately Stable - Low risk of patient condition declining or worsening The patient's goals for the shift include comfort The clinical goals for the shift include VSS, safety Normal [facility] ANTI-XA (HEPARIN LEVEL)on HEPARIN UNFRACTIONATED (U/ML) IN PPP BY CHROMOGENIC METHOD 0.34 IU/mL Normal 0.3-0.[address] [facility] Comment on above: Result Comment: [place] roxaban and Apixaban will interfere with the anti Xa assay used to monitor UFH and LMWH. Performed By: #### L [id number] ####[facility] ([facility])[address] [place] [address] HEPARIN UNFRACTIONATED (U/ML) IN PPP BY CHROMOGENIC METHOD 0.30 IU/mL Normal 0.3-0.[address] [facility] Comment on above: Result Comment: [place] roxaban and Apixaban will interfere with the anti Xa assay used to monitor UFH and LMWH. Performed By: #### L [id number] ####[facility] ([facility])[address] [place] [address] CBCon 03-04-2025 Erythrocyte distribution width (RBC) [Ratio] 16.3 % High 11.5-15.[address] [facility] Comment on above: Performed By: #### L [id number] ####[facility] ([facility])[address] [place] [address] ERYTHROCYTE MEAN CORPUSCULAR HEMOGLOBIN CONCENTRATION (G/DL) BY AUTOMATED 34.1 g/dL Normal 32.0-35.0 [facility] Comment on above: Performed By: #### L [id number] ####[facility] ([facility])[address] [place] [address] Hematocrit (Bld) [Volume fraction] 22.6 % Low 39.0-50.[address] [facility] Comment on above: Performed By: #### L [id number] ####[facility] ([facility])[address] [facility] [address] Hemoglobin (Bld) [Mass/Vol] 7.7 g/dL Low 13.0-17.[address] [facility] Comment on above: Performed By: #### L [id number] ####[facility] [place] [address] MCH (RBC) [Entitic mass] 30.6 pg Normal 27.0-33.[address] [facility] Comment on above: Performed By: #### L [id number] ####[facility] ([facility])[address] [place] [address] MCV (RBC) [Entitic vol] 89.7 fL Normal 82.0-98.[address] [facility] Comment on above: Performed By: #### L [id number] ####[facility] ([facility])[address] [place] [address] PLATELETS (10*3/UL) IN BLOOD AUTOMATED COUNT 359 10*3/uL Normal 150-[address] [facility] Comment on above: Performed By: #### L [id number] ####[facility] ([facility])[address] [place] [address] RBC (Bld) [#/Vol] 2.52 10*6/uL Low 4.20-5.70 [facility] Comment on above: Performed By: #### L [id number] ####[facility] ([facility])[address] [place] [address] WBC (Bld) [#/Vol] 5.41 10*3/uL Normal 4.00-10.60 [facility] Comment on above: Performed By: #### L [id number] ####[facility] [place] [address] COMPREHENSIVE METABOLIC PANE Rogelio 03-04-2025 Albumin [Mass/Vol] 2.8 g/dL Low 3.5-5.7 [facility] Comment on above: Performed By: #### L [id number] ####[facility] ([facility])[address] [place] [address] ALP [Catalytic activity/Vol] 55 U/L Normal 34-[address] [facility] Comment on above: Performed By: #### L [id number] ####[facility] ([facility])[address] [place] [address] ALT [Catalytic activity/Vol] 17 U/L Normal 7-[address] [facility] Comment on above: Performed By: #### L [id number] ####[facility] ([facility])[address] [place] [address] Anion gap [Moles/Vol] 8 mmol/L Normal 7-[address] [facility] Comment on above: Performed By: #### L [id number] ####[facility] ([facility])[address] [place] [address] AST [Catalytic activity/Vol] 17 U/L Normal 13-[address] [facility] Comment on above: Performed By: #### L [id number] ####[facility] ([facility])[address] [place] [address] Bilirubin [Mass/Vol] 3.7 mg/dL High 0.3-1.[address] [facility] Comment on above: Performed By: #### L [id number] ####[facility] ([facility])[address] [place] [address] Calcium [Mass/Vol] 7.7 mg/dL Low 8.6-10.3 [facility] Comment on above: Performed By: #### L [id number] ####[facility] ([facility])[address] [place] [address] Chloride [Moles/Vol] 103 mmol/L Normal 98-[address] [facility] Comment on above: Performed By: #### L [id number] ####[facility] ([facility])[address] [place] [address] CO2 [Moles/Vol] 25 mmol/L Normal 21-31 [facility] Comment on above: Performed By: #### L [id number] ####[facility] ([facility])[address] [place] [address] Creatinine [Mass/Vol] 0.66 mg/dL Low 0.70-1.[address] [facility] Comment on above: Performed By: #### L [id number] ####[facility] ([facility])[address] [place] [address] GLOMERULAR FILTRATION RATE ML/MIN/1.73 SQ M.PREDICTED 108.7 mL/min/1.73m*2 Normal >60.[address] [facility] Comment on above: Result Comment: The [facility]???s estimated glomerular filtration rate (eGFR) will [...] of individuals. Performed By: #### L [id number] ####[facility] ([facility])[address] [place] [address] Glucose [Mass/Vol] 86 mg/dL Normal 70-100 [facility] Comment on above: Performed By: #### L [id number] ####[facility] ([facility])[address] [place] [address] Potassium [Moles/Vol] 3.8 mmol/L Normal 3.5-5.[address] [facility] Comment on above: Performed By: #### L [id number] ####[facility] ([facility])[address] [place] [address] Protein [Mass/Vol] 4.9 g/dL Low 6.0-8.3 [facility] Comment on above: Performed By: #### L [id number] ####[facility] ([facility])[address] [place] [address] Sodium [Moles/Vol] 132 mmol/L Low 136-145 [facility] Comment on above: Performed By: #### L [id number] ####[facility] ([facility])[address] [place] [address] Urea nitrogen [Mass/Vol] 15 mg/dL Normal 7-[address] [facility] Comment on above: Performed By: #### L [id number] ####[facility] ([facility])[place] [address] UREA NITROGEN/CREATININE (MASS RATIO) IN SER/PLAS 22.[address] [facility] Comment on above: Performed By: #### L [id number] ####[facility] ([facility])[place] [address] CTA HEART CORONARY W IV CONT RAST W OR WO FFRCTon 03-04-2025 CTA HEART CORONARY W IV CONTRAST W OR WO FFRCT Invalid Interpretation Code [facility] MAGNESIUMon 03-04-2025 Magnesium [Mass/Vol] 2.0 mg/dL Normal 1.9-2.[address] [facility] Comment on above: Performed By: #### L [id number] ####[facility] ([facility])[address] [place] [address] NURSNOTEon 03-04-2025 NURSNOTE [facility]ed [facility] 03-04-2025 Magnesium [Mass/Vol] 2.7 mg/dL Normal 2.5-5.[address] [facility] Comment on above: Performed By: #### L [id number] ####[facility] ([facility])[place] [address] 30on 03-03-2025 [address] [facility] ANESon 03-03-[address]ES [address] [facility] ANTI-XA (HEPARIN LEVEL)on HEPARIN UNFRACTIONATED (U/ML) IN PPP BY CHROMOGENIC METHOD 0.23 IU/mL Low 0.3-0.[address] [facility] Comment on above: Result Comment: [place] roxaban and Apixaban will interfere with the anti Xa assay used to monitor UFH and LMWH. Performed By: #### L [id number] ####[facility] ([facility])[address] [place] [address] HEPARIN UNFRACTIONATED (U/ML) IN PPP BY CHROMOGENIC METHOD 0.31 IU/mL Normal 0.3-0.[address] [facility] Comment on above: Result Comment: [place] roxaban and Apixaban will interfere with the anti Xa assay used to monitor UFH and LMWH. Performed By: #### L [id number] ####[facility] ([facility])[address] [place] [address] APTTon 03-03-2025 ACTIVATED PARTIAL THROMBOPLASTIN TIME IN PPP BY COAGULATION ASSAY 41.8 Seconds High 25.0-35.[address] [facility] Comment on above: Order Comment: Basel ine aPTT before initiating heparin infusion. Result Comment: Clin ical significance of the APTT is questionable in the presence of heparin. Performed By: #### L [id number] ####[facility] ([facility])[address] [place] [address] CBCon 03-03-2025 Erythrocyte distribution width (RBC) [Ratio] 16.4 % High 11.5-15.[address] [facility] Comment on above: Performed By: #### L [id number] ####[facility] ([facility])[address] [place] [address] ERYTHROCYTE MEAN CORPUSCULAR HEMOGLOBIN CONCENTRATION (G/DL) BY AUTOMATED 34.0 g/dL Normal 32.0-35.0 [facility] Comment on above: Performed By: #### L [id number] ####[facility] ([facility])[address] [place] [address] Hematocrit (Bld) [Volume fraction] 24.1 % Low 39.0-50.[address] [facility] Comment on above: Performed By: #### L [id number] ####[facility] ([facility])[address] [place] [address] Hemoglobin (Bld) [Mass/Vol] 8.2 g/dL Low 13.0-17.[address] [facility] Comment on above: Performed By: #### L [id number] ####[facility] ([facility])[address] [place] [address] MCH (RBC) [Entitic mass] 30.5 pg Normal 27.0-33.[address] [facility] Comment on above: Performed By: #### L [id number] ####[facility] ([facility])[address] [place] [address] MCV (RBC) [Entitic vol] 89.6 fL Normal 82.0-98.[address] [facility] Comment on above: Performed By: #### L [id number] ####[facility] ([facility])[address] [place] [address] PLATELETS (10*3/UL) IN BLOOD AUTOMATED COUNT 370 10*3/uL Normal 150-[address] [facility] Comment on above: Performed By: #### L [id number] ####[facility] ([facility])[address] [place] [address] RBC (Bld) [#/Vol] 2.69 10*6/uL Low 4.20-5.70 [facility] Comment on above: Performed By: #### L [id number] ####[facility] ([facility])[address] [place] [address] WBC (Bld) [#/Vol] 5.84 10*3/uL Normal 4.00-10.60 [facility] Comment on above: Performed By: #### L [id number] ####[facility] ([facility])[address] [place] [address] COMPREHENSIVE METABOLIC PANE Rogelio 03-03-2025 Albumin [Mass/Vol] 2.9 g/dL Low 3.5-5.7 [facility] Comment on above: Performed By: #### L [id number] ####[facility] ([facility])[address] [place] [address] ALP [Catalytic activity/Vol] 55 U/L Normal 34-[address] [facility] Comment on above: Performed By: #### L [id number] ####[facility] [place] [address] ALT [Catalytic activity/Vol] 18 U/L Normal 7-[address] [facility] Comment on above: Performed By: #### L [id number] ####[facility] ([facility])[address] [place] [address] Anion gap [Moles/Vol] 9 mmol/L Normal 7-[address] [facility] Comment on above: Performed By: #### L [id number] ####[facility] ([facility])[address] [place] [address] AST [Catalytic activity/Vol] 23 U/L Normal 13-[address] [facility] Comment on above: Performed By: #### L [id number] ####[facility] ([facility])[address] [place] [address] Bilirubin [Mass/Vol] 4.0 mg/dL High 0.3-1.[address] [facility] Comment on above: Performed By: #### L [id number] ####[facility] ([facility])[address] [place] [address] Calcium [Mass/Vol] 7.8 mg/dL Low 8.6-10.3 [facility] Comment on above: Performed By: #### L [id number] ####[facility] ([facility])[address] [place] [address] Chloride [Moles/Vol] 102 mmol/L Normal 98-[address] [facility] Comment on above: Performed By: #### L [id number] ####[facility] ([facility])[address] [place] [address] CO2 [Moles/Vol] 25 mmol/L Normal 21-31 [facility] Comment on above: Performed By: #### L [id number] ####[facility] ([facility])[address] [place] [address] Creatinine [Mass/Vol] 0.69 mg/dL Low 0.70-1.[address] [facility] Comment on above: Performed By: #### L [id number] ####[facility] ([facility])[address] [place] [address] GLOMERULAR FILTRATION RATE ML/MIN/1.73 SQ M.PREDICTED 107.3 mL/min/1.73m*2 Normal >60.[address] [facility] Comment on above: Result Comment: The [facility]???s estimated glomerular filtration rate (eGFR) will [...] of individuals. Performed By: #### L [id number] ####[facility] ([facility])[address] [address] Glucose [Mass/Vol] 88 mg/dL Normal 70-100 [facility] Comment on above: Performed By: #### L [id number] ####[facility] ([facility])[address] [place] [address] Potassium [Moles/Vol] 4.0 mmol/L Normal 3.5-5.[address] [facility] Comment on above: Performed By: #### L [id number] ####[facility] ([facility])[address] [place] [address] Protein [Mass/Vol] 5.1 g/dL Low 6.0-8.3 [facility] Comment on above: Performed By: #### L [id number] ####[facility] ([facility])[address] [place] [address] Sodium [Moles/Vol] 132 mmol/L Low 136-145 [facility] Comment on above: Performed By: #### L [id number] ####[facility] ([facility])[address] [place] [address] Urea nitrogen [Mass/Vol] 12 mg/dL Normal 7-[address] [facility] Comment on above: Performed By: #### L [id number] ####[facility] ([facility])[address] [place] [address] UREA NITROGEN/CREATININE (MASS RATIO) IN SER/PLAS 17.[address] [facility] Comment on above: Performed By: #### L [id number] ####[facility] ([facility])[address] [place] [address] DIGOXIN LEVELon 03-03-2025 DIGOXIN (NG/ML) IN SER/PLAS 0.6 ng/mL Low 0.7-[address] [facility] Comment on above: Performed By: #### L [id number] ####[facility] ([facility])[address] [place] [address] HPon 03-03-2025 HP [address] [facility] MAGNESIUMon 03-03-2025 Magnesium [Mass/Vol] 2.0 mg/dL Normal 1.9-2.[address] [facility] Comment on above: Performed By: #### L [id number] ####[facility] ([facility])[address] [place] [address] NURSNOTEon 03-03-2025 NURSNOTE Normal [facility] NURSNOTE Normal [facility] NURSNOTE Normal [facility] PHOSPHORUSon 03-03-2025 Magnesium [Mass/Vol] 2.9 mg/dL Normal 2.5-5.[address] [facility] Comment on above: Performed By: #### L [id number] ####[facility] ([facility])[address] [place] [address] PLATELET COUNTon 03-03-2025 PLATELETS (10*3/UL) IN BLOOD AUTOMATED COUNT 358 10*3/uL Normal 150-[address] [facility] Comment on above: Performed By: #### L [id number] ####[facility] ([facility])[address] [place] [address] 30on 03-02-2025 [address] [facility] ANTI-XA (HEPARIN LEVEL)on HEPARIN UNFRACTIONATED (U/ML) IN PPP BY CHROMOGENIC METHOD 0.18 IU/mL Low 0.3-0.[address] [facility] Comment on above: Result Comment: Linda roxaban and Apixaban will interfere with the anti Xa assay used to monitor UFH and LMWH. Performed By: #### L [id number] ####[facility] ([facility])[address] [place] [address] APTTon 03-02-2025 ACTIVATED PARTIAL THROMBOPLASTIN TIME IN PPP BY COAGULATION ASSAY 39.7 Seconds High 25.0-35.[address] [facility] Comment on above: Order Comment: Basel ine aPTT before initiating heparin infusion. Result Comment: Clin ical significance of the APTT is questionable in the presence of heparin. Performed By: #### L [id number] ####[facility] ([facility])[address] [place] [address] COMPREHENSIVE METABOLIC PANE Rogelio 03-02-2025 Albumin [Mass/Vol] 3.0 g/dL Low 3.5-5.7 [facility] Comment on above: Performed By: #### L [id number] ####[facility] ([facility])[address] [place] [address] ALP [Catalytic activity/Vol] 59 U/L Normal 34-[address] [facility] Comment on above: Performed By: #### L [id number] ####[facility] ([facility])[address] [place] [address] ALT [Catalytic activity/Vol] 20 U/L Normal 7-[address] [facility] Comment on above: Performed By: #### L [id number] ####[facility] ([facility])[address] [place] [address] Anion gap [Moles/Vol] 7 mmol/L Normal 7-[address] [facility] Comment on above: Performed By: #### L [id number] ####[facility] ([facility])[address] [place] [address] AST [Catalytic activity/Vol] 21 U/L Normal 13-[address] [facility] Comment on above: Performed By: #### L [id number] ####[facility] ([facility])[address] [place] [address] Bilirubin [Mass/Vol] 4.3 mg/dL High 0.3-1.[address] [facility] Comment on above: Performed By: #### L [id number] ####[facility] ([facility])[address] [place] [address] Calcium [Mass/Vol] 8.1 mg/dL Low 8.6-10.3 [facility] Comment on above: Performed By: #### L [id number] ####[facility] ([facility])[address] [place] [address] Chloride [Moles/Vol] 103 mmol/L Normal 98-[address] [facility] Comment on above: Performed By: #### L [id number] ####[facility] ([facility])[address] [place] [address] CO2 [Moles/Vol] 25 mmol/L Normal 21-31 [facility] Comment on above: Performed By: #### L [id number] ####[facility] ([facility])[address] [place] [address] Creatinine [Mass/Vol] 0.68 mg/dL Low 0.70-1.[address] [facility] Comment on above: Performed By: #### L [id number] ####[facility] ([facility])[address] [place] [address] GLOMERULAR FILTRATION RATE ML/MIN/1.73 SQ M.PREDICTED 107.7 mL/min/1.73m*2 Normal >60.[address] [facility] Comment on above: Result Comment: The [facility]???s estimated glomerular filtration rate (eGFR) will [...] of individuals. Performed By: #### L [id number] ####[facility] ([facility])[address] [place] [address] Glucose [Mass/Vol] 91 mg/dL Normal 70-100 [facility] Comment on above: Performed By: #### L [id number] ####[facility] ([facility])[address] [place] [address] Potassium [Moles/Vol] 4.0 mmol/L Normal 3.5-5.[address] [facility] Comment on above: Performed By: #### L [id number] ####[facility] ([facility])[address] [place] [address] Protein [Mass/Vol] 5.3 g/dL Low 6.0-8.3 [facility] Comment on above: Performed By: #### L [id number] ####[facility] ([facility])[address] [place] [address] Sodium [Moles/Vol] 131 mmol/L Low 136-145 [facility] Comment on above: Performed By: #### L [id number] ####[facility] ([facility])[address] [place] [address] Urea nitrogen [Mass/Vol] 13 mg/dL Normal 7-[address] [facility] Comment on above: Performed By: #### L [id number] ####[facility] ([facility])[address] [place] [address] UREA NITROGEN/CREATININE (MASS RATIO) IN SER/PLAS 19.[address] [facility] Comment on above: Performed By: #### L [id number] ####[facility] ([facility])[address] [place] [address] MAGNESIUMon 03-02-2025 Magnesium [Mass/Vol] 2.0 mg/dL Normal 1.9-2.[address] [facility] Comment on above: Performed By: #### L [id number] ####[facility] ([facility])[address] [place] [address] PHOSPHORUSon 03-02-2025 Magnesium [Mass/Vol] 2.5 mg/dL Normal 2.5-5.[address] [facility] Comment on above: Performed By: #### L [id number] ####[facility] ([facility])[address] [place] [address] PLATELET COUNTon 03-02-2025 PLATELETS (10*3/UL) IN BLOOD AUTOMATED COUNT 366 10*3/uL Normal 150-[address] [facility] Comment on above: Performed By: #### L [id number] ####[facility] ([facility])[address] [place] [address] URINALYSISon 03-02-2025 BILIRUBIN, TOTAL PRESENCE IN URINE Negative Normal Negative [facility] Comment on above: Order Comment: Micro scopics not performed on urines with negative chemical reactions unless requested on original order. Performed By: #### L [id number] ####[facility] ([facility])[address] [place] [address] Clarity (U) Clear Normal Clear [facility] Comment on above: Order Comment: Micro scopics not performed on urines with negative chemical reactions unless requested on original order. Performed By: #### L [id number] ####[facility] ([facility])[address] [place] [address] Color (U) Yellow Normal Colorless, Yellow, Light-Yellow [facility] Comment on above: Order Comment: Micro scopics not performed on urines with negative chemical reactions unless requested on original order. Performed By: #### L [id number] ####[facility] ([facility])[address] [place] [address] GLUCOSE (MG/DL) IN URINE Normal Normal Normal [facility] Comment on above: Order Comment: Micro scopics not performed on urines with negative chemical reactions unless requested on original order. Performed By: #### L [id number] ####[facility] ([facility])[address] [place] [address] HEMOGLOBIN PRESENCE IN URINE Negative Normal Negative [facility] Comment on above: Order Comment: Micro scopics not performed on urines with negative chemical reactions unless requested on original order. Performed By: #### L [id number] ####[facility] ([facility])[address] [place] [address] Ketones Ql (U) Negative Normal Negative [facility] Comment on above: Order Comment: Micro scopics not performed on urines with negative chemical reactions unless requested on original order. Performed By: #### L [id number] ####[facility] ([facility])[address] [place] [address] LEUKOCYTE ESTERASE PRESENCE IN URINE BY TEST STRIP Negative Normal Negative [facility] Comment on above: Order Comment: Micro scopics not performed on urines with negative chemical reactions unless requested on original order. Performed By: #### L [id number] ####[facility] ([facility])[address] [place] [address] NITRITE PRESENCE IN URINE Negative Normal Negative [facility] Comment on above: Order Comment: Micro scopics not performed on urines with negative chemical reactions unless requested on original order. Performed By: #### L [id number] ####[facility] ([facility])[address] [place] [address] pH (U) 6.5 [pH] Normal 5.0-8.[address] [facility] Comment on above: Order Comment: Micro scopics not performed on urines with negative chemical reactions unless requested on original order. Performed By: #### L [id number] ####[facility] ([facility])[address] [place] [address] Protein (U) [Mass/Vol] Negative Normal Negative [facility] Comment on above: Order Comment: Micro scopics not performed on urines with negative chemical reactions unless requested on original order. Performed By: #### L [id number] ####[facility] ([facility])[address] [place] [address] Specific gravity (U) [Rel density] 1.016 Normal 1.010-1.[address] [facility] Comment on above: Order Comment: Micro scopics not performed on urines with negative chemical reactions unless requested on original order. Performed By: #### L [id number] ####[facility] ([facility])[address] [place] [address] UROBILINOGEN (MG/DL) IN URINE >=8.0 Abnormal Normal [facility] Comment on above: Order Comment: Micro scopics not performed on urines with negative chemical reactions unless requested on original order. Performed By: #### L [id number] ####[facility] ([facility])[address] [place] [address] 30on 03-01-2025 30 The patient is Moderately Stable - Low risk of patient condition declining or worsening The patient's goals for the shift include comfort, rest. The clinical goals for the shift include stable vitals, safety. Normal [facility] [address] [facility] COMPREHENSIVE METABOLIC PANE Rogelio 03-01-2025 Albumin [Mass/Vol] 2.9 g/dL Low 3.5-5.7 [facility] Comment on above: Performed By: #### L [id number] ####[facility] ([facility])[address] [place] [address] ALP [Catalytic activity/Vol] 58 U/L Normal 34-[address] [facility] Comment on above: Performed By: #### L [id number] ####[facility] ([facility])[address] [place] [address] ALT [Catalytic activity/Vol] 17 U/L Normal 7-[address] [facility] Comment on above: Performed By: #### L [id number] ####[facility] ([facility])[address] [place] [address] Anion gap [Moles/Vol] 9 mmol/L Normal 7-[address] [facility] Comment on above: Performed By: #### L [id number] ####[facility] ([facility])[address] [place] [address] AST [Catalytic activity/Vol] 17 U/L Normal 13-[address] [facility] Comment on above: Performed By: #### L [id number] ####[facility] ([facility])[address] [place] [address] Bilirubin [Mass/Vol] 3.6 mg/dL High 0.3-1.[address] [facility] Comment on above: Performed By: #### L [id number] ####[facility] ([facility])[address] [place] [address] Calcium [Mass/Vol] 7.7 mg/dL Low 8.6-10.3 [facility] Comment on above: Performed By: #### L [id number] ####[facility] ([facility])[address] [place] [address] Chloride [Moles/Vol] 103 mmol/L Normal 98-[address] [facility] Comment on above: Performed By: #### L [id number] ####[facility] ([facility])[address] [place] [address] CO2 [Moles/Vol] 22 mmol/L Normal 21-31 [facility] Comment on above: Performed By: #### L [id number] ####[facility] ([facility])[address] [place] [address] Creatinine [Mass/Vol] 0.67 mg/dL Low 0.70-1.[address] [facility] Comment on above: Performed By: #### L [id number] ####[facility] ([facility])[address] [place] [address] GLOMERULAR FILTRATION RATE ML/MIN/1.73 SQ M.PREDICTED 108.2 mL/min/1.73m*2 Normal >60.[address] [facility] Comment on above: Result Comment: The [facility]???s estimated glomerular filtration rate (eGFR) will [...] of individuals. Performed By: #### L [id number] ####[facility] ([facility])[address] [place] [address] Glucose [Mass/Vol] 94 mg/dL Normal 70-100 [facility] Comment on above: Performed By: #### L [id number] ####[facility] [place] [address] Potassium [Moles/Vol] 3.9 mmol/L Normal 3.5-5.[address] [facility] Comment on above: Performed By: #### L [id number] ####[facility] [place] [address] Protein [Mass/Vol] 5.1 g/dL Low 6.0-8.3 [facility] Comment on above: Performed By: #### L [id number] ####[facility] [place] [address] Sodium [Moles/Vol] 130 mmol/L Low 136-145 [facility] Comment on above: Performed By: #### L [id number] ####[facility] ([facility])[address] [place] [address] Urea nitrogen [Mass/Vol] 14 mg/dL Normal 7-[address] [facility] Comment on above: Performed By: #### L [id number] ####[facility] ([facility])[address] [place] [address] UREA NITROGEN/CREATININE (MASS RATIO) IN SER/PLAS 20.[address] [facility] Comment on above: Performed By: #### L [id number] ####[facility] ([facility])[address] [place] [address] DIGOXIN LEVELon 03-01-2025 DIGOXIN (NG/ML) IN SER/PLAS <0.3 Low 0.7-[address] [facility] Comment on above: Performed By: #### L [id number] ####[facility] ([facility])[address] [place] [address] MAGNESIUMon 03-01-2025 Magnesium [Mass/Vol] 2.0 mg/dL Normal 1.9-2.[address] [facility] Comment on above: Performed By: #### L [id number] ####[facility] ([facility])[address] [place] [address] NURSNOTEon 03-01-2025 NURSNOTE Normal [facility] PHOSPHORUSon 03-01-2025 Magnesium [Mass/Vol] 2.4 mg/dL Low 2.5-5.[address] [facility] Comment on above: Performed By: #### L [id number] ####[facility] [place] [address] 30on 02-28-2025 [address] [facility] CBCon 02-28-2025 Erythrocyte distribution width (RBC) [Ratio] 17.2 % High 11.5-15.[address] [facility] Comment on above: Performed By: #### L [id number] ####[facility] ([facility])[address] [place] [address] ERYTHROCYTE MEAN CORPUSCULAR HEMOGLOBIN CONCENTRATION (G/DL) BY AUTOMATED 34.2 g/dL Normal 32.0-35.0 [facility] Comment on above: Performed By: #### L [id number] ####[facility] [place] [address] Hematocrit (Bld) [Volume fraction] 24.3 % Low 39.0-50.[address] [facility] Comment on above: Performed By: #### L [id number] ####[facility] (BEAKER)[address] [place] [address] Hemoglobin (Bld) [Mass/Vol] 8.3 g/dL Low 13.0-17.[address] [facility] Comment on above: Performed By: #### L [id number] ####[facility] [place] [address] MCH (RBC) [Entitic mass] 30.7 pg Normal 27.0-33.[address] [facility] Comment on above: Performed By: #### L [id number] ####[facility] (BEAKER)[address] [place] [address] MCV (RBC) [Entitic vol] 90.0 fL Normal 82.0-98.[address] [facility] Comment on above: Performed By: #### L [id number] ####[facility] ([facility])[address] [place] [address] PLATELETS (10*3/UL) IN BLOOD AUTOMATED COUNT 255 10*3/uL Normal 150-[address] [facility] Comment on above: Performed By: #### L [id number] ####[facility] ([facility])[address] [place] [address] RBC (Bld) [#/Vol] 2.70 10*6/uL Low 4.20-5.70 [facility] Comment on above: Performed By: #### L [id number] ####[facility] ([facility])[address] [place] [address] WBC (Bld) [#/Vol] 8.84 10*3/uL Normal 4.00-10.60 [facility] Comment on above: Performed By: #### L [id number] ####[facility] ([facility])[address] [place] [address] COMPREHENSIVE METABOLIC PANE Rogelio 02-28-2025 Albumin [Mass/Vol] 3.0 g/dL Low 3.5-5.7 [facility] Comment on above: Performed By: #### L [id number] ####[facility] ([facility])[address] [place] [address] ALP [Catalytic activity/Vol] 60 U/L Normal 34-[address] [facility] Comment on above: Performed By: #### L [id number] ####[facility] ([facility])[address] [place] [address] ALT [Catalytic activity/Vol] 20 U/L Normal 7-[address] [facility] Comment on above: Performed By: #### L [id number] ####[facility] ([facility])[address] [place] [address] Anion gap [Moles/Vol] 10 mmol/L Normal 7-[address] [facility] Comment on above: Performed By: #### L [id number] ####[facility] ([facility])[address] [place] [address] AST [Catalytic activity/Vol] 14 U/L Normal 13-[address] [facility] Comment on above: Performed By: #### L [id number] ####[facility] [place] [address] Bilirubin [Mass/Vol] 3.8 mg/dL High 0.3-1.[address] [facility] Comment on above: Performed By: #### L [id number] ####[facility] [place] [address] Calcium [Mass/Vol] 7.9 mg/dL Low 8.6-10.3 [facility] Comment on above: Performed By: #### L [id number] ####[facility] ([facility] [place] [address] Chloride [Moles/Vol] 102 mmol/L Normal 98-[address] [facility] Comment on above: Performed By: #### L [id number] ####[facility] ([facility] [place] [address] CO2 [Moles/Vol] 23 mmol/L Normal 21-31 [facility] Comment on above: Performed By: #### L [id number] ####[facility] ([facility] [place] [address] Creatinine [Mass/Vol] 0.75 mg/dL Normal 0.70-1.[address] [facility] Comment on above: Performed By: #### L [id number] ####[facility] ([facility] [place] [address] GLOMERULAR FILTRATION RATE ML/MIN/1.73 SQ M.PREDICTED 104.6 mL/min/1.73m*2 Normal >60.[address] [facility] Comment on above: Result Comment: The [facility]???s estimated glomerular filtration rate (eGFR) will [...] of individuals. Performed By: #### L [id number] ####[facility] ([facility])[address] [place] [address] Glucose [Mass/Vol] 98 mg/dL Normal 70-100 [facility] Comment on above: Performed By: #### L [id number] ####[facility] ([facility])[address] [place] [address] Potassium [Moles/Vol] 4.0 mmol/L Normal 3.5-5.[address] [facility] Comment on above: Performed By: #### L [id number] ####[facility] ([facility])[address] [place] [address] Protein [Mass/Vol] 5.1 g/dL Low 6.0-8.3 [facility] Comment on above: Performed By: #### L [id number] ####[facility] ([facility])[address] [place] [address] Sodium [Moles/Vol] 131 mmol/L Low 136-145 [facility] Comment on above: Performed By: #### L [id number] ####[facility] ([facility])[address] [place] [address] Urea nitrogen [Mass/Vol] 16 mg/dL Normal 7-[address] [facility] Comment on above: Performed By: #### L [id number] ####[facility] ([facility])[address] [place] [address] UREA NITROGEN/CREATININE (MASS RATIO) IN SER/PLAS 21.[address] [facility] Comment on above: Performed By: #### L [id number] ####[facility] ([facility])[address] [place] [address] MAGNESIUMon 02-28-2025 Magnesium [Mass/Vol] 2.0 mg/dL Low 2.5-5.[address] [facility] Comment on above: Performed By: #### L [id number] ####[facility] ([facility]ER)[address] [place] [address] Performed By: #### L [id number] ####[facility] (BEAKER)[address] [place] [address] NURSNOTEon 02-28-2025 NURSNOTE Normal [facility] 30on 02-27-2025 [address] [facility] CBCon 02-27-2025 Erythrocyte distribution width (RBC) [Ratio] 17.2 % High 11.5-15.[address] [facility] Comment on above: Performed By: #### L [id number] ####[facility] [place] [address] ERYTHROCYTE MEAN CORPUSCULAR HEMOGLOBIN CONCENTRATION (G/DL) BY AUTOMATED 35.5 g/dL High 32.0-35.0 [facility] Comment on above: Performed By: #### L [id number] ####[facility] (BEAKER)[address] [place] [address] Hematocrit (Bld) [Volume fraction] 25.1 % Low 39.0-50.[address] [facility] Comment on above: Performed By: #### L [id number] ####[facility] (BEAKER)[address] [place] [address] Hemoglobin (Bld) [Mass/Vol] 8.9 g/dL Low 13.0-17.[address] [facility] Comment on above: Performed By: #### L [id number] ####[facility] ([facility]ER)[address] [place] [address] MCH (RBC) [Entitic mass] 31.3 pg Normal 27.0-33.[address] [facility] Comment on above: Performed By: #### L [id number] ####[facility] (BEAKER)[address] [place] [address] MCV (RBC) [Entitic vol] 88.4 fL Normal 82.0-98.[address] [facility] Comment on above: Performed By: #### L [id number] ####[facility] (BEAKER)[address] [place] [address] PLATELETS (10*3/UL) IN BLOOD AUTOMATED COUNT 261 10*3/uL Normal 150-[address] [facility] Comment on above: Performed By: #### L [id number] ####[facility] [place] [address] RBC (Bld) [#/Vol] 2.84 10*6/uL Low 4.20-5.70 [facility] Comment on above: Performed By: #### L [id number] ####[facility] ([facility])[address] [place] [address] WBC (Bld) [#/Vol] 9.07 10*3/uL Normal 4.00-10.60 [facility] Comment on above: Performed By: #### L [id number] ####[facility] ([facility] [place] [address] Erythrocyte distribution width (RBC) [Ratio] 17.2 % High 11.5-15.[address] [facility] Comment on above: Performed By: #### L [id number] ####[facility] (BEAKER)[address] [place] [address] ERYTHROCYTE MEAN CORPUSCULAR HEMOGLOBIN CONCENTRATION (G/DL) BY AUTOMATED 35.0 g/dL Normal 32.0-35.0 [facility] Comment on above: Performed By: #### L [id number] ####[facility] (BEAKER)[address] [place] [address] Hematocrit (Bld) [Volume fraction] 27.4 % Low 39.0-50.[address] [facility] Comment on above: Performed By: #### L [id number] ####[facility] (BEAKER)[address] [place] [address] Hemoglobin (Bld) [Mass/Vol] 9.6 g/dL Low 13.0-17.[address] [facility] Comment on above: Performed By: #### L [id number] ####[facility] (BEAKER)[address] [place] [address] MCH (RBC) [Entitic mass] 30.8 pg Normal 27.0-33.[address] [facility] Comment on above: Performed By: #### L [id number] ####[facility] (BEAKER)[address] [address] MCV (RBC) [Entitic vol] 87.8 fL Normal 82.0-98.[address] [facility] Comment on above: Performed By: #### L [id number] ####[facility] [address] PLATELETS (10*3/UL) IN BLOOD AUTOMATED COUNT 284 10*3/uL Normal 150-[address] [facility] Comment on above: Performed By: #### L [id number] ####[facility] [place] [address] RBC (Bld) [#/Vol] 3.12 10*6/uL Low 4.20-5.70 [facility] Comment on above: Performed By: #### L [id number] ####[facility] [address] WBC (Bld) [#/Vol] 10.96 10*3/uL High 4.00-10.60 [facility] Comment on above: Performed By: #### L [id number] ####[facility] (BEAKER)[address] [address] Erythrocyte distribution width (RBC) [Ratio] 17.3 % High 11.5-15.[address] [facility] Comment on above: Performed By: #### L [id number] ####[facility] (BEAKER)[address] [address] ERYTHROCYTE MEAN CORPUSCULAR HEMOGLOBIN CONCENTRATION (G/DL) BY AUTOMATED 34.4 g/dL Normal 32.0-35.0 [facility] Comment on above: Performed By: #### L [id number] ####[facility] [address] Hematocrit (Bld) [Volume fraction] 24.7 % Low 39.0-50.[address] [facility] Comment on above: Performed By: #### L [id number] ####[facility] ([facility])[address] [address] Hemoglobin (Bld) [Mass/Vol] 8.5 g/dL Low 13.0-17.[address] [facility] Comment on above: Performed By: #### L [id number] ####[facility] ([facility])[address] [address] MCH (RBC) [Entitic mass] 30.9 pg Normal 27.0-33.[address] [facility] Comment on above: Performed By: #### L [id number] ####[facility] ([facility])[address] [address] MCV (RBC) [Entitic vol] 89.8 fL Normal 82.0-98.[address] [facility] Comment on above: Performed By: #### L [id number] ####[facility] ([facility])[address] [address] PLATELETS (10*3/UL) IN BLOOD AUTOMATED COUNT 233 10*3/uL Normal 150-[address] [facility] Comment on above: Performed By: #### L [id number] ####[facility] ([facility])[address] [address] RBC (Bld) [#/Vol] 2.75 10*6/uL Low 4.20-5.70 [facility] Comment on above: Performed By: #### L [id number] ####[facility] ([facility])[address] [place], [place] [address] WBC (Bld) [#/Vol] 8.02 10*3/uL Normal 4.00-10.60 [facility] Comment on above: Performed By: #### L [id number] ####[facility] (BEAKER)[address] [place], [place] [address] Erythrocyte distribution width (RBC) [Ratio] 17.5 % High 11.5-15.[address] [facility] Comment on above: Performed By: #### L [id number] ####[facility] [place] [address] ERYTHROCYTE MEAN CORPUSCULAR HEMOGLOBIN CONCENTRATION (G/DL) BY AUTOMATED 34.5 g/dL Normal 32.0-35.0 [facility] Comment on above: Performed By: #### L [id number] ####[facility] ([facility])[address] [place] [address] Hematocrit (Bld) [Volume fraction] 23.8 % Low 39.0-50.[address] [facility] Comment on above: Performed By: #### L [id number] ####[facility] ([facility])[address] [place], [place] [address] Hemoglobin (Bld) [Mass/Vol] 8.2 g/dL Low 13.0-17.[address] [facility] Comment on above: Performed By: #### L [id number] ####[facility] ([facility])[address] [place], [place] [address] MCH (RBC) [Entitic mass] 30.7 pg Normal 27.0-33.[address] [facility] Comment on above: Performed By: #### L [id number] ####[facility] [place], [place] [address] MCV (RBC) [Entitic vol] 89.1 fL Normal 82.0-98.[address] [facility] Comment on above: Performed By: #### L [id number] ####[facility] [place], [place] [address] PLATELETS (10*3/UL) IN BLOOD AUTOMATED COUNT 159 10*3/uL Normal 150-[address] [facility] Comment on above: Performed By: #### L [id number] ####[facility] [place] [address] RBC (Bld) [#/Vol] 2.67 10*6/uL Low 4.20-5.70 [facility] Comment on above: Performed By: #### L [id number] ####[facility] [place] [address] WBC (Bld) [#/Vol] 8.06 10*3/uL Normal 4.00-10.60 [facility] Comment on above: Performed By: #### L [id number] ####[facility] ([facility] [place] [address] COMPREHENSIVE METABOLIC PANE Rogelio 02-27-2024 Albumin [Mass/Vol] 2.9 g/dL Low 3.5-5.7 [facility] Comment on above: Performed By: #### L [id number] ####[facility] ([facility] [place] [address] ALP [Catalytic activity/Vol] 54 U/L Normal 34-[address] [facility] Comment on above: Performed By: #### L [id number] ####[facility] ([facility] [place] [address] ALT [Catalytic activity/Vol] 21 U/L Normal 7-[address] [facility] Comment on above: Performed By: #### L [id number] ####[facility] ([facility] [place] [address] Anion gap [Moles/Vol] 8 mmol/L Normal 7-[address] [facility] Comment on above: Performed By: #### L [id number] ####[facility] (BEAKER)[address] [place] [address] AST [Catalytic activity/Vol] 16 U/L Normal 13-[address] [facility] Comment on above: Performed By: #### L [id number] ####[facility] ([facility] [place] [address] Bilirubin [Mass/Vol] 3.4 mg/dL High 0.3-1.[address] [facility] Comment on above: Performed By: #### L [id number] ####[facility] ([facility]ER)[address] [place] [address] Calcium [Mass/Vol] 7.8 mg/dL Low 8.6-10.3 [facility] Comment on above: Performed By: #### L [id number] ####[facility] (BEAKER)[address] [place] [address] Chloride [Moles/Vol] 102 mmol/L Normal 98-[address] [facility] Comment on above: Performed By: #### L [id number] ####[facility] (BEAKER)[address] [place] [address] CO2 [Moles/Vol] 25 mmol/L Normal 21-31 [facility] Comment on above: Performed By: #### L [id number] ####[facility] (BEAKER)[address] [place] [address] Creatinine [Mass/Vol] 0.64 mg/dL Low 0.70-1.[address] [facility] Comment on above: Performed By: #### L [id number] ####[facility] [place] [address] GLOMERULAR FILTRATION RATE ML/MIN/1.73 SQ M.PREDICTED 109.7 mL/min/1.73m*2 Normal >60.[address] [facility] Comment on above: Result Comment: [facility]???s estimated glomerular filtration rate (eGFR) will [...] of individuals. Performed By: #### L [id number] ####[facility] (BEAKER)[address] [place] [address] Glucose [Mass/Vol] 100 mg/dL Normal 70-100 [facility] Comment on above: Performed By: #### L [id number] ####[facility] ([facility])[address] [place] [address] Potassium [Moles/Vol] 4.1 mmol/L Normal 3.5-5.[address] [facility] Comment on above: Performed By: #### L [id number] ####[facility] ([facility])[address] [place] [address] Protein [Mass/Vol] 4.9 g/dL Low 6.0-8.3 [facility] Comment on above: Performed By: #### L [id number] ####[facility] ([facility])[address] [place] [address] Sodium [Moles/Vol] 131 mmol/L Low 136-145 [facility] Comment on above: Performed By: #### L [id number] ####[facility] ([facility])[address] [place] [address] Urea nitrogen [Mass/Vol] 17 mg/dL Normal 7-[address] [facility] Comment on above: Performed By: #### L [id number] ####[facility] ([facility])[address] [place] [address] UREA NITROGEN/CREATININE (MASS RATIO) IN SER/PLAS 26.[address] [facility] Comment on above: Performed By: #### L [id number] ####[facility] ([facility])[address] [place] [address] MAGNESIUMon 02-27-2025 Magnesium [Mass/Vol] 2.1 mg/dL Normal 1.9-2.[address] [facility] Comment on above: Performed By: #### L [id number] ####[facility] ([facility])[address] [place] [address] NURSNOTEon 02-27-2025 NURSNOTE Normal [facility] PHOSPHORUSon 02-27-2025 Magnesium [Mass/Vol] 2.0 mg/dL Low 2.5-5.[address] [facility] Comment on above: Performed By: #### L [id number] ####[facility] (BEAKER)[address] [place] [address] 30on 02-26-2025 [address] [facility] CBCon 02-26-2025 Erythrocyte distribution width (RBC) [Ratio] 17.5 % High 11.5-15.[address] [facility] Comment on above: Performed By: #### L [id number] ####[facility] ([facility])[address] [place] [address] ERYTHROCYTE MEAN CORPUSCULAR HEMOGLOBIN CONCENTRATION (G/DL) BY AUTOMATED 34.6 g/dL Normal 32.0-35.0 [facility] Comment on above: Performed By: #### L [id number] ####[facility] [place] [address] Hematocrit (Bld) [Volume fraction] 24.6 % Low 39.0-50.[address] [facility] Comment on above: Performed By: #### L [id number] ####[facility] [place] [address] Hemoglobin (Bld) [Mass/Vol] 8.5 g/dL Low 13.0-17.[address] [facility] Comment on above: Performed By: #### L [id number] ####[facility] (BEAKER)[address] [place] [address] MCH (RBC) [Entitic mass] 31.1 pg Normal 27.0-33.[address] [facility] Comment on above: Performed By: #### L [id number] ####[facility] (BEAKER)[address] [place] [address] MCV (RBC) [Entitic vol] 90.1 fL Normal 82.0-98.[address] [facility] Comment on above: Performed By: #### L [id number] ####[facility] (BEAKER)[address] [place] [address] PLATELETS (10*3/UL) IN BLOOD AUTOMATED COUNT 225 10*3/uL Normal 150-[address] [facility] Comment on above: Performed By: #### L [id number] ####[facility] (BEAKER)[address] [address] RBC (Bld) [#/Vol] 2.73 10*6/uL Low 4.20-5.70 [facility] Comment on above: Performed By: #### L [id number] ####[facility] [address] WBC (Bld) [#/Vol] 8.18 10*3/uL Normal 4.00-10.60 [facility] Comment on above: Performed By: #### L [id number] ####[facility] [address] Erythrocyte distribution width (RBC) [Ratio] 17.6 % High 11.5-15.[address] [facility] Comment on above: Performed By: #### L [id number] ####[facility] [place] [address] ERYTHROCYTE MEAN CORPUSCULAR HEMOGLOBIN CONCENTRATION (G/DL) BY AUTOMATED 34.0 g/dL Normal 32.0-35.0 [facility] Comment on above: Performed By: #### L [id number] ####[facility] (BEAKER)[address] [place] [address] Hematocrit (Bld) [Volume fraction] 25.0 % Low 39.0-50.[address] [facility] Comment on above: Performed By: #### L [id number] ####[facility] (BEAKER)[address], [place] [address] Hemoglobin (Bld) [Mass/Vol] 8.5 g/dL Low 13.0-17.[address] [facility] Comment on above: Performed By: #### L [id number] ####[facility] (BEAKER)[address], [place] [address] MCH (RBC) [Entitic mass] 30.2 pg Normal 27.0-33.[address] [facility] Comment on above: Performed By: #### L [id number] ####[facility] (BEAKER)[address] [place] [address] MCV (RBC) [Entitic vol] 89.0 fL Normal 82.0-98.[address] [facility] Comment on above: Performed By: #### L [id number] ####[facility] (BEAKER)[address] [place] [address] PLATELETS (10*3/UL) IN BLOOD AUTOMATED COUNT 219 10*3/uL Normal 150-[address] [facility] Comment on above: Performed By: #### L [id number] ####[facility] [place] [address] RBC (Bld) [#/Vol] 2.81 10*6/uL Low 4.20-5.70 [facility] Comment on above: Performed By: #### L [id number] ####[facility] [place] [address] WBC (Bld) [#/Vol] 8.65 10*3/uL Normal 4.00-10.60 [facility] Comment on above: Performed By: #### L [id number] ####[facility] (BEAKER)[address] [place] [address] Erythrocyte distribution width (RBC) [Ratio] 17.8 % High 11.5-15.[address] [facility] Comment on above: Performed By: #### L [id number] ####[facility] (BEAKER)[address] [place] [address] ERYTHROCYTE MEAN CORPUSCULAR HEMOGLOBIN CONCENTRATION (G/DL) BY AUTOMATED 35.0 g/dL Normal 32.0-35.0 [facility] Comment on above: Performed By: #### L [id number] ####[facility] (BEAKER)[address] [place] [address] Hematocrit (Bld) [Volume fraction] 24.6 % Low 39.0-50.[address] [facility] Comment on above: Performed By: #### L [id number] ####[facility] [address] Hemoglobin (Bld) [Mass/Vol] 8.6 g/dL Low 13.0-17.[address] [facility] Comment on above: Performed By: #### L [id number] ####[facility] ([facility])[address] [address] MCH (RBC) [Entitic mass] 31.4 pg Normal 27.0-33.[address] [facility] Comment on above: Performed By: #### L [id number] ####[facility] ([facility])[address] [address] MCV (RBC) [Entitic vol] 89.8 fL Normal 82.0-98.[address] [facility] Comment on above: Performed By: #### L [id number] ####[facility] ([facility])[address] [place] [address] PLATELETS (10*3/UL) IN BLOOD AUTOMATED COUNT 205 10*3/uL Normal 150-[address] [facility] Comment on above: Performed By: #### L [id number] ####[facility] ([facility])[address] [address] RBC (Bld) [#/Vol] 2.74 10*6/uL Low 4.20-5.70 [facility] Comment on above: Performed By: #### L [id number] ####[facility] ([facility])[address] [address] WBC (Bld) [#/Vol] 7.78 10*3/uL Normal 4.00-10.60 [facility] Comment on above: Performed By: #### L [id number] ####[facility] ([facility])[address] [address] Erythrocyte distribution width (RBC) [Ratio] 17.8 % High 11.5-15.[address] [facility] Comment on above: Performed By: #### L [id number] ####[facility] (BEAKER)[address] [address] ERYTHROCYTE MEAN CORPUSCULAR HEMOGLOBIN CONCENTRATION (G/DL) BY AUTOMATED 34.1 g/dL Normal 32.0-35.0 [facility] Comment on above: Performed By: #### L [id number] ####[facility] (BEAKER)[address] [address] Hematocrit (Bld) [Volume fraction] 23.2 % Low 39.0-50.[address] [facility] Comment on above: Performed By: #### L [id number] ####[facility] [address] Hemoglobin (Bld) [Mass/Vol] 7.9 g/dL Low 13.0-17.[address] [facility] Comment on above: Performed By: #### L [id number] ####[facility] ([facility])[address] [place] [address] MCH (RBC) [Entitic mass] 30.6 pg Normal 27.0-33.[address] [facility] Comment on above: Performed By: #### L [id number] ####[facility] [address] MCV (RBC) [Entitic vol] 89.9 fL Normal 82.0-98.[address] [facility] Comment on above: Performed By: #### L [id number] ####[facility] [place] [address] PLATELETS (10*3/UL) IN BLOOD AUTOMATED COUNT 199 10*3/uL Normal 150-[address] [facility] Comment on above: Performed By: #### L [id number] ####[facility] [place] [address] RBC (Bld) [#/Vol] 2.58 10*6/uL Low 4.20-5.70 [facility] Comment on above: Performed By: #### L [id number] ####[facility] [place] [address] WBC (Bld) [#/Vol] 7.09 10*3/uL Normal 4.00-10.60 [facility] Comment on above: Performed By: #### L [id number] ####[facility] ([facility])[address] [place] [address] COMPREHENSIVE METABOLIC PANE Rogelio 02-26-2025 Albumin [Mass/Vol] 2.9 g/dL Low 3.5-5.7 [facility] Comment on above: Performed By: #### L [id number] ####[facility] ([facility])[address] [place] [address] ALP [Catalytic activity/Vol] 54 U/L Normal 34-[address] [facility] Comment on above: Performed By: #### L [id number] ####[facility] ([facility])[address] [place] [address] ALT [Catalytic activity/Vol] 24 U/L Normal 7-[address] [facility] Comment on above: Performed By: #### L [id number] ####[facility] ([facility])[address] [place] [address] Anion gap [Moles/Vol] 7 mmol/L Normal 7-[address] [facility] Comment on above: Performed By: #### L [id number] ####[facility] ([facility])[address] [place] [address] AST [Catalytic activity/Vol] 16 U/L Normal 13-[address] [facility] Comment on above: Performed By: #### L [id number] ####[facility] ([facility])[address] [place] [address] Bilirubin [Mass/Vol] 3.5 mg/dL High 0.3-1.[address] [facility] Comment on above: Performed By: #### L [id number] ####[facility] ([facility])[address] [place] [address] Calcium [Mass/Vol] 7.9 mg/dL Low 8.6-10.3 [facility] Comment on above: Performed By: #### L [id number] ####[facility] (BEAKER)[address] [place] [address] Chloride [Moles/Vol] 103 mmol/L Normal 98-[address] [facility] Comment on above: Performed By: #### L [id number] ####[facility] (BEAKER)[address] [place] [address] CO2 [Moles/Vol] 27 mmol/L Normal 21-31 [facility] Comment on above: Performed By: #### L [id number] ####[facility] [place] [address] Creatinine [Mass/Vol] 0.80 mg/dL Normal 0.70-1.[address] [facility] Comment on above: Performed By: #### L [id number] ####[facility] ([facility])[address] [place] [address] GLOMERULAR FILTRATION RATE ML/MIN/1.73 SQ M.PREDICTED 102.6 mL/min/1.73m*2 Normal >60.[address] [facility] Comment on above: Result Comment: The [facility]???s estimated glomerular filtration rate (eGFR) will [...] of individuals. Performed By: #### L [id number] ####[facility] [place] [address] Glucose [Mass/Vol] 94 mg/dL Normal 70-100 [facility] Comment on above: Performed By: #### L [id number] ####[facility] (BEAKER)[address] [place] [address] Potassium [Moles/Vol] 3.9 mmol/L Normal 3.5-5.[address] [facility] Comment on above: Performed By: #### L [id number] ####[facility] ([facility])[address] [place] [address] Protein [Mass/Vol] 4.8 g/dL Low 6.0-8.3 [facility] Comment on above: Performed By: #### L [id number] ####[facility] ([facility])[address] [place] [address] Sodium [Moles/Vol] 133 mmol/L Low 136-145 [facility] Comment on above: Performed By: #### L [id number] ####[facility] ([facility])[address] [place] [address] Urea nitrogen [Mass/Vol] 25 mg/dL Normal 7-[address] [facility] Comment on above: Performed By: #### L [id number] ####[facility] ([facility])[address] [place] [address] UREA NITROGEN/CREATININE (MASS RATIO) IN SER/PLAS 31.[address] [facility] Comment on above: Performed By: #### L [id number] ####[facility] ([facility])[address] [place] [address] FERRITINon 02-26-2025 FERRITIN (NG/ML) IN SER/PLAS 234.0 ng/mL Normal 24.0-336.[address] [facility] Comment on above: Performed By: #### L [id number] ####[facility] ([facility])[address] [place] [address] FOLATEon 02-26-2025 FOLATE (NG/ML) IN SER/PLAS 17.66 ng/mL Normal 6.6-[address] [facility] Comment on above: Performed By: #### L [id number] ####[facility] ([facility])[address] [place] [address] IRON AND TIBCon 02-26-2025 IRON (UG/DL) IN SER/PLAS 20 ug/dL Low 50-[address] [facility] Comment on above: Performed By: #### L [id number] ####[facility] [place] [address] IRON BINDING CAPACITY (UG/DL) IN SER/PLAS 227 ug/dL Low 250-[address] [facility] Comment on above: Performed By: #### L [id number] ####[facility] ([facility])[address] [place] [address] IRON BINDING CAPACITY.UNSATURATE D (UG/DL) IN SER/PLAS 207.0 ug/dL Normal 155.0-355.[address] [facility] Comment on above: Performed By: #### L [id number] ####[facility] ([facility])[address] [place] [address] IRON SATURATION (%) IN SER/PLAS 9 % Low 20-[address] [facility] Comment on above: Performed By: #### L [id number] ####[facility] ([facility])[address] [place] [address] MAGNESIUMon 02-26-2025 Magnesium [Mass/Vol] 2.2 mg/dL Normal 1.9-2.[address] [facility] Comment on above: Performed By: #### L [id number] ####[facility] ([facility])[address] [place] [address] PHOSPHORUSon 02-26-2025 Magnesium [Mass/Vol] 1.8 mg/dL Low 2.5-5.[address] [facility] Comment on above: Performed By: #### L [id number] ####[facility] ([facility])[address] [place] [address] RETICULOCYTE PANELon 025 HEMOGLOBIN (PG) IN RETICULOCYTES 33.0 pg Normal 28.0-36.[address] [facility] Comment on above: Performed By: #### L [id number] ####[facility] [place] [address] IMMATURE RETICULOCYTE FRACTION (%) 36.5 % High 2-[address] [facility] Comment on above: Performed By: #### L [id number] ####[facility] (BEAKER)[address] [place] [address] RETICULOCYTES (10*6/UL) IN BLOOD 0.0781 10*6/uL Normal 0.0250-0.[address] [facility] Comment on above: Performed By: #### L [id number] ####[facility] [place] [address] Reticulocytes/100 RBC (Bld) 2.79 % High 0.50-1.[address] [facility] Comment on above: Performed By: #### L [id number] ####[facility] [address] VITAMIN B12on 02-26-2025 Cobalamin (Vitamin B12) [Mass/Vol] 1129 pg/mL High 180-[address] [facility] Comment on above: Result Comment: REFE RENCE RANGES:180-914 pg/mL Qmxyyu513-020 pg/mL Indeterminate<145 pg/mL Deficient Performed By: #### L [id number] ####[facility] ([facility] [place] [address] 30on 02-25-[address] [facility] CBCon 02-25-2025 Erythrocyte distribution width (RBC) [Ratio] 17.7 % High 11.5-15.[address] [facility] Comment on above: Performed By: #### L [id number] ####[facility] [place] [address] ERYTHROCYTE MEAN CORPUSCULAR HEMOGLOBIN CONCENTRATION (G/DL) BY AUTOMATED 34.8 g/dL Normal 32.0-35.0 [facility] Comment on above: Performed By: #### L [id number] ####[facility] (BEAKER)[address] [place] [address] Hematocrit (Bld) [Volume fraction] 23.3 % Low 39.0-50.[address] [facility] Comment on above: Performed By: #### L [id number] ####[facility] (BEAKER)[address] [place] [address] Hemoglobin (Bld) [Mass/Vol] 8.1 g/dL Low 13.0-17.[address] [facility] Comment on above: Performed By: #### L [id number] ####[facility] (BEAKER)[address] [address] MCH (RBC) [Entitic mass] 31.2 pg Normal 27.0-33.[address] [facility] Comment on above: Performed By: #### L [id number] ####[facility] (BEAKER)[address] [address] MCV (RBC) [Entitic vol] 89.6 fL Normal 82.0-98.[address] [facility] Comment on above: Performed By: #### L [id number] ####[facility] [address] PLATELETS (10*3/UL) IN BLOOD AUTOMATED COUNT 180 10*3/uL Normal 150-[address] [facility] Comment on above: Performed By: #### L [id number] ####[facility] (BEAKER)[address] [address] RBC (Bld) [#/Vol] 2.60 10*6/uL Low 4.20-5.70 [facility] Comment on above: Performed By: #### L [id number] ####[facility] (BEAKER)[address] [address] WBC (Bld) [#/Vol] 7.74 10*3/uL Normal 4.00-10.60 [facility] Comment on above: Performed By: #### L [id number] ####[facility] (BEAKER)[address] [address] Erythrocyte distribution width (RBC) [Ratio] 17.7 % High 11.5-15.[address] [facility] Comment on above: Performed By: #### L [id number] ####[facility] (BEAKER)[address] [address] ERYTHROCYTE MEAN CORPUSCULAR HEMOGLOBIN CONCENTRATION (G/DL) BY AUTOMATED 34.6 g/dL Normal 32.0-35.0 [facility] Comment on above: Performed By: #### L [id number] ####[facility] (BEAKER)[address] [place] [address] Hematocrit (Bld) [Volume fraction] 26.0 % Low 39.0-50.[address] [facility] Comment on above: Performed By: #### L [id number] ####[facility] (BEAKER)[address] [place] [address] Hemoglobin (Bld) [Mass/Vol] 9.0 g/dL Low 13.0-17.[address] [facility] Comment on above: Performed By: #### L [id number] ####[facility] (BEAKER)[address] [place] [address] MCH (RBC) [Entitic mass] 31.0 pg Normal 27.0-33.[address] [facility] Comment on above: Performed By: #### L [id number] ####[facility] (BEAKER)[address] [place] [address] MCV (RBC) [Entitic vol] 89.7 fL Normal 82.0-98.[address] [facility] Comment on above: Performed By: #### L [id number] ####[facility] (BEAKER)[address] [place] [address] PLATELETS (10*3/UL) IN BLOOD AUTOMATED COUNT 180 10*3/uL Normal 150-[address] [facility] Comment on above: Performed By: #### L [id number] ####[facility] (BEAKER)[address] [place] [address] RBC (Bld) [#/Vol] 2.90 10*6/uL Low 4.20-5.70 [facility] Comment on above: Performed By: #### L [id number] ####[facility] (BEAKER)[address] [place] [address] WBC (Bld) [#/Vol] 8.04 10*3/uL Normal 4.00-10.60 [facility] Comment on above: Performed By: #### L [id number] ####[facility] (BEAKER)[address] [address] Erythrocyte distribution width (RBC) [Ratio] 17.7 % High 11.5-15.[address] [facility] Comment on above: Performed By: #### L [id number] ####[facility] [address] ERYTHROCYTE MEAN CORPUSCULAR HEMOGLOBIN CONCENTRATION (G/DL) BY AUTOMATED 34.2 g/dL Normal 32.0-35.0 [facility] Comment on above: Performed By: #### L [id number] ####[facility] [place] [address] Hematocrit (Bld) [Volume fraction] 24.3 % Low 39.0-50.[address] [facility] Comment on above: Performed By: #### L [id number] ####[facility] (BEAKER)[address] [place] [address] Hemoglobin (Bld) [Mass/Vol] 8.3 g/dL Low 13.0-17.[address] [facility] Comment on above: Performed By: #### L [id number] ####[facility] (BEAKER)[address] [place], [place] [address] MCH (RBC) [Entitic mass] 30.6 pg Normal 27.0-33.[address] [facility] Comment on above: Performed By: #### L [id number] ####[facility] (BEAKER)[address] [place], [place] [address] MCV (RBC) [Entitic vol] 89.7 fL Normal 82.0-98.[address] [facility] Comment on above: Performed By: #### L [id number] ####[facility] (BEAKER)[address] [place] [address] PLATELETS (10*3/UL) IN BLOOD AUTOMATED COUNT 158 10*3/uL Normal 150-[address] [facility] Comment on above: Performed By: #### L [id number] ####[facility] (BEAKER)[address] [address] RBC (Bld) [#/Vol] 2.71 10*6/uL Low 4.20-5.70 [facility] Comment on above: Performed By: #### L [id number] ####[facility] (BEAKER)[address] [place] [address] WBC (Bld) [#/Vol] 7.39 10*3/uL Normal 4.00-10.60 [facility] Comment on above: Performed By: #### L [id number] ####[facility] (BEAKER)[address] [address] Erythrocyte distribution width (RBC) [Ratio] 15.8 % High 11.5-15.[address] [facility] Comment on above: Performed By: #### L [id number] ####[facility] (BEAKER)[address] [place] [address] ERYTHROCYTE MEAN CORPUSCULAR HEMOGLOBIN CONCENTRATION (G/DL) BY AUTOMATED 33.9 g/dL Normal 32.0-35.0 [facility] Comment on above: Performed By: #### L [id number] ####[facility] (BEAKER)[address] [place] [address] Hematocrit (Bld) [Volume fraction] 22.7 % Low 39.0-50.[address] [facility] Comment on above: Performed By: #### L [id number] ####[facility] (BEAKER)[address] [place], [place] [address] Hemoglobin (Bld) [Mass/Vol] 7.7 g/dL Low 13.0-17.[address] [facility] Comment on above: Performed By: #### L [id number] ####[facility] (BEAKER)[address] [place] [address] MCH (RBC) [Entitic mass] 31.0 pg Normal 27.0-33.[address] [facility] Comment on above: Performed By: #### L [id number] ####[facility] (BEAKER)[address] [place] [address] MCV (RBC) [Entitic vol] 91.5 fL Normal 82.0-98.[address] [facility] Comment on above: Performed By: #### L [id number] ####[facility] (BEAKER)[address] [place] [address] PLATELETS (10*3/UL) IN BLOOD AUTOMATED COUNT 172 10*3/uL Normal 150-[address] [facility] Comment on above: Performed By: #### L [id number] ####[facility] [place] [address] RBC (Bld) [#/Vol] 2.48 10*6/uL Low 4.20-5.70 [facility] Comment on above: Performed By: #### L [id number] ####[facility] [place] [address] WBC (Bld) [#/Vol] 8.90 10*3/uL Normal 4.00-10.60 [facility] Comment on above: Performed By: #### L [id number] ####[facility] (BEAKER)[address] [place] [address] Erythrocyte distribution width (RBC) [Ratio] 15.8 % High 11.5-15.[address] [facility] Comment on above: Performed By: #### L [id number] ####[facility] (BEAKER)[address] [place] [address] ERYTHROCYTE MEAN CORPUSCULAR HEMOGLOBIN CONCENTRATION (G/DL) BY AUTOMATED 35.0 g/dL Normal 32.0-35.0 [facility] Comment on above: Performed By: #### L [id number] ####[facility] (BEAKER)[address] [place] [address] Hematocrit (Bld) [Volume fraction] 23.7 % Low 39.0-50.[address] [facility] Comment on above: Performed By: #### L [id number] ####[facility] [place] [address] Hemoglobin (Bld) [Mass/Vol] 8.3 g/dL Low 13.0-17.[address] [facility] Comment on above: Performed By: #### L [id number] ####[facility] [place] [address] MCH (RBC) [Entitic mass] 31.7 pg Normal 27.0-33.[address] [facility] Comment on above: Performed By: #### L [id number] ####[facility] ([facility])[address] [place] [address] MCV (RBC) [Entitic vol] 90.5 fL Normal 82.0-98.[address] [facility] Comment on above: Performed By: #### L [id number] ####[facility] ([facility])[address] [place] [address] PLATELETS (10*3/UL) IN BLOOD AUTOMATED COUNT 178 10*3/uL Normal 150-[address] [facility] Comment on above: Performed By: #### L [id number] ####[facility] ([facility])[address] [place] [address] RBC (Bld) [#/Vol] 2.62 10*6/uL Low 4.20-5.70 [facility] Comment on above: Performed By: #### L [id number] ####[facility] ([facility])[address] [place] [address] WBC (Bld) [#/Vol] 10.11 10*3/uL Normal 4.00-10.60 [facility] Comment on above: Performed By: #### L [id number] ####[facility] [place] [address] COMPREHENSIVE METABOLIC PANE Rogelio 02-25-2025 Albumin [Mass/Vol] 3.1 g/dL Low 3.5-5.7 [facility] Comment on above: Performed By: #### L [id number] ####[facility] (BEAKER)[address] [place] [address] ALP [Catalytic activity/Vol] 54 U/L Normal 34-[address] [facility] Comment on above: Performed By: #### L [id number] ####[facility] (BEAKER)[address] [place] [address] ALT [Catalytic activity/Vol] 27 U/L Normal 7-[address] [facility] Comment on above: Performed By: #### L [id number] ####[facility] (BEAKER)[address] [place] [address] Anion gap [Moles/Vol] 9 mmol/L Normal 7-[address] [facility] Comment on above: Performed By: #### L [id number] ####[facility] (BEAKER)[address] [place] [address] AST [Catalytic activity/Vol] 19 U/L Normal 13-[address] [facility] Comment on above: Performed By: #### L [id number] ####[facility] (BEAKER)[address] [place] [address] Bilirubin [Mass/Vol] 2.8 mg/dL High 0.3-1.[address] [facility] Comment on above: Performed By: #### L [id number] ####[facility] (BEAKER)[address] [place] [address] Calcium [Mass/Vol] 8.1 mg/dL Low 8.6-10.3 [facility] Comment on above: Performed By: #### L [id number] ####[facility] (BEAKER)[address] [place] [address] Chloride [Moles/Vol] 99 mmol/L Normal 98-[address] [facility] Comment on above: Performed By: #### L [id number] ####[facility] (BEAKER)[address] [place] [address] CO2 [Moles/Vol] 29 mmol/L Normal 21-31 [facility] Comment on above: Performed By: #### L [id number] ####[facility] [place] [address] Creatinine [Mass/Vol] 1.36 mg/dL High 0.70-1.[address] [facility] Comment on above: Performed By: #### L [id number] ####[facility] [place] [address] GLOMERULAR FILTRATION RATE ML/MIN/1.73 SQ M.PREDICTED 60.3 mL/min/1.73m*2 Normal >60.0 [facility] Comment on above: Result Comment: The [facility]???s estimated glomerular filtration rate (eGFR) will [...] of individuals. Performed By: #### L [id number] ####[facility] ([facility])[address] [place] [address] Glucose [Mass/Vol] 102 mg/dL High 70-100 [facility] Comment on above: Performed By: #### L [id number] ####[facility] ([facility])[address] [place] [address] Potassium [Moles/Vol] 4.1 mmol/L Normal 3.5-5.[address] [facility] Comment on above: Performed By: #### L [id number] ####[facility] ([facility])[address] [place] [address] Protein [Mass/Vol] 4.9 g/dL Low 6.0-8.3 [facility] Comment on above: Performed By: #### L [id number] ####[facility] [place] [address] Sodium [Moles/Vol] 133 mmol/L Low 136-145 [facility] Comment on above: Performed By: #### L [id number] ####[facility] [place] [address] Urea nitrogen [Mass/Vol] 40 mg/dL High 7-[address] [facility] Comment on above: Performed By: #### L [id number] ####[facility] ([facility])[address] [place] [address] UREA NITROGEN/CREATININE (MASS RATIO) IN SER/PLAS 29.[address] [facility] Comment on above: Performed By: #### L [id number] ####[facility] ([facility])[address] [place] [address] CTA ABDOMEN PELVIS W IV CONT RASTon 02-25-2025 CTA ABDOMEN PELVIS W IV CONTRAST Normal [facility] DIGOXIN LEVELon 02-25-2025 DIGOXIN (NG/ML) IN SER/PLAS 2.3 ng/mL Critically high 0.7-[address] [facility] Comment on above: Performed By: #### L [id number] ####[facility] ([facility])[address] [place] [address] HEMOGLOBIN AND HEMATOCRIT, B LOODon 02-25-2025 Hematocrit (Bld) [Volume fraction] 22.8 % Low 39.0-50.[address] [facility] Comment on above: Performed By: #### L [id number] ####[facility] ([facility])[address] [place] [address] Hemoglobin (Bld) [Mass/Vol] 7.9 g/dL Low 13.0-17.[address] [facility] Comment on above: Performed By: #### L [id number] ####[facility] [place] [address] MAGNESIUMon 02-25-2025 Magnesium [Mass/Vol] 2.3 mg/dL Normal 1.9-2.[address] [facility] Comment on above: Performed By: #### L [id number] ####[facility] [place] [address] PHOSPHORUSon 02-25-2025 Magnesium [Mass/Vol] 2.6 mg/dL Normal 2.5-5.[address] [facility] Comment on above: Performed By: #### L [id number] ####[facility] [address] CBCon 02-24-2025 Erythrocyte distribution width (RBC) [Ratio] 15.8 % High 11.5-15.[address] [facility] Comment on above: Performed By: #### L [id number] ####[facility] ([facility])[address] [place] [address] ERYTHROCYTE MEAN CORPUSCULAR HEMOGLOBIN CONCENTRATION (G/DL) BY AUTOMATED 35.2 g/dL High 32.0-35.0 [facility] Comment on above: Performed By: #### L [id number] ####[facility] ([facility])[address] [place] [address] Hematocrit (Bld) [Volume fraction] 24.4 % Low 39.0-50.[address] [facility] Comment on above: Performed By: #### L [id number] ####[facility] ([facility])[address] [place] [address] Hemoglobin (Bld) [Mass/Vol] 8.6 g/dL Low 13.0-17.[address] [facility] Comment on above: Performed By: #### L [id number] ####[facility] [place] [address] MCH (RBC) [Entitic mass] 31.5 pg Normal 27.0-33.[address] [facility] Comment on above: Performed By: #### L [id number] ####[facility] [place] [address] MCV (RBC) [Entitic vol] 89.4 fL Normal 82.0-98.[address] [facility] Comment on above: Performed By: #### L [id number] ####[facility] [place] [address] PLATELETS (10*3/UL) IN BLOOD AUTOMATED COUNT 182 10*3/uL Normal 150-[address] [facility] Comment on above: Performed By: #### L [id number] ####[facility] (BEAKER)[address] [address] RBC (Bld) [#/Vol] 2.73 10*6/uL Low 4.20-5.70 [facility] Comment on above: Performed By: #### L [id number] ####[facility] (BEAKER)[address] [address] WBC (Bld) [#/Vol] 12.23 10*3/uL High 4.00-10.60 [facility] Comment on above: Performed By: #### L [id number] ####[facility] (BEAKER)[address] [address] Erythrocyte distribution width (RBC) [Ratio] 15.8 % High 11.5-15.[address] [facility] Comment on above: Performed By: #### L [id number] ####[facility] (BEAKER)[address] [address] ERYTHROCYTE MEAN CORPUSCULAR HEMOGLOBIN CONCENTRATION (G/DL) BY AUTOMATED 34.9 g/dL Normal 32.0-35.0 [facility] Comment on above: Performed By: #### L [id number] ####[facility] (BEAKER)[address] [address] Hematocrit (Bld) [Volume fraction] 26.1 % Low 39.0-50.[address] [facility] Comment on above: Performed By: #### L [id number] ####[facility] (BEAKER)[address] [address] Hemoglobin (Bld) [Mass/Vol] 9.1 g/dL Low 13.0-17.[address] [facility] Comment on above: Performed By: #### L [id number] ####[facility] (BEAKER)[address] [address] MCH (RBC) [Entitic mass] 31.5 pg Normal 27.0-33.[address] [facility] Comment on above: Performed By: #### L [id number] ####[facility] (BEAKER)[address] [address] MCV (RBC) [Entitic vol] 90.3 fL Normal 82.0-98.[address] [facility] Comment on above: Performed By: #### L [id number] ####[facility] [address] PLATELETS (10*3/UL) IN BLOOD AUTOMATED COUNT 196 10*3/uL Normal 150-[address] [facility] Comment on above: Performed By: #### L [id number] ####[facility] (BEAKER)[address] [address] RBC (Bld) [#/Vol] 2.89 10*6/uL Low 4.20-5.70 [facility] Comment on above: Performed By: #### L [id number] ####[facility] (BEAKER)[address] [address] WBC (Bld) [#/Vol] 16.83 10*3/uL High 4.00-10.60 [facility] Comment on above: Performed By: #### L [id number] ####[facility] (BEAKER)[address] [place], [place] [address] Erythrocyte distribution width (RBC) [Ratio] 15.9 % High 11.5-15.[address] [facility] Comment on above: Performed By: #### L [id number] ####[facility] (BEAKER)[address] [place], [place] [address] ERYTHROCYTE MEAN CORPUSCULAR HEMOGLOBIN CONCENTRATION (G/DL) BY AUTOMATED 34.1 g/dL Normal 32.0-35.0 [facility] Comment on above: Performed By: #### L [id number] ####[facility] (BEAKER)[address] [place] [address] Hematocrit (Bld) [Volume fraction] 26.4 % Low 39.0-50.[address] [facility] Comment on above: Performed By: #### L [id number] ####[facility] [place] [address] Hemoglobin (Bld) [Mass/Vol] 9.0 g/dL Low 13.0-17.[address] [facility] Comment on above: Performed By: #### L [id number] ####[facility] ([facility])[address] [place], [place] [address] MCH (RBC) [Entitic mass] 31.5 pg Normal 27.0-33.[address] [facility] Comment on above: Performed By: #### L [id number] ####[facility] ([facility])[address] [place], [place] [address] MCV (RBC) [Entitic vol] 92.3 fL Normal 82.0-98.[address] [facility] Comment on above: Performed By: #### L [id number] ####[facility] ([facility])[address] [place] [address] PLATELETS (10*3/UL) IN BLOOD AUTOMATED COUNT 173 10*3/uL Normal 150-[address] [facility] Comment on above: Performed By: #### L [id number] ####[facility] [place] [address] RBC (Bld) [#/Vol] 2.86 10*6/uL Low 4.20-5.70 [facility] Comment on above: Performed By: #### L [id number] ####[facility] [place] [address] WBC (Bld) [#/Vol] 14.22 10*3/uL High 4.00-10.60 [facility] Comment on above: Performed By: #### L [id number] ####[facility] (BEAKER)[address] [place] [address] CHLORIDE, URINE, RANDOMon Chloride (U) [Moles/Vol] mmol/L Low 110-[address] [facility] Comment on above: Performed By: #### L [id number] ####[facility] ([facility])[address] [place] [address] COMPREHENSIVE METABOLIC PANE Rogelio 02-24-2025 Albumin [Mass/Vol] 3.3 g/dL Low 3.5-5.7 [facility] Comment on above: Performed By: #### L [id number] ####[facility] ([facility])[address] [place] [address] ALP [Catalytic activity/Vol] 58 U/L Normal 34-[address] [facility] Comment on above: Performed By: #### L [id number] ####[facility] ([facility])[address] [place] [address] ALT [Catalytic activity/Vol] 32 U/L Normal 7-[address] [facility] Comment on above: Performed By: #### L [id number] ####[facility] ([facility])[address] [place] [address] Anion gap [Moles/Vol] 12 mmol/L Normal 7-[address] [facility] Comment on above: Performed By: #### L [id number] ####[facility] ([facility])[address] [place] [address] AST [Catalytic activity/Vol] 24 U/L Normal 13-[address] [facility] Comment on above: Performed By: #### L [id number] ####[facility] ([facility])[address] [place] [address] Bilirubin [Mass/Vol] 3.0 mg/dL High 0.3-1.[address] [facility] Comment on above: Performed By: #### L [id number] ####[facility] ([facility])[address] [place] [address] Calcium [Mass/Vol] 8.5 mg/dL Low 8.6-10.3 [facility] Comment on above: Performed By: #### L [id number] ####[facility] ([facility])[address] [place] [address] Chloride [Moles/Vol] 99 mmol/L Normal 98-[address] [facility] Comment on above: Performed By: #### L [id number] ####[facility] ([facility])[address] [place] [address] CO2 [Moles/Vol] 28 mmol/L Normal 21-31 [facility] Comment on above: Performed By: #### L [id number] ####[facility] ([facility])[address] [place] [address] Creatinine [Mass/Vol] 2.43 mg/dL High 0.70-1.[address] [facility] Comment on above: Performed By: #### L [id number] ####[facility] ([facility])[address] [place] [address] GLOMERULAR FILTRATION RATE ML/MIN/1.73 SQ M.PREDICTED 30.1 mL/min/1.73m*2 Low >60.0 [facility] Comment on above: Result Comment: [facility]???s estimated glomerular filtration rate (eGFR) will [...] of individuals. Performed By: #### L [id number] ####[facility] [place] [address] Glucose [Mass/Vol] 104 mg/dL High 70-100 [facility] Comment on above: Performed By: #### L [id number] ####[facility] [place] [address] Potassium [Moles/Vol] 4.1 mmol/L Normal 3.5-5.[address] [facility] Comment on above: Performed By: #### L [id number] ####[facility] [place] [address] Protein [Mass/Vol] 5.2 g/dL Low 6.0-8.3 [facility] Comment on above: Performed By: #### L [id number] ####[facility] ([facility])[address] [place] [address] Sodium [Moles/Vol] 135 mmol/L Low 136-145 [facility] Comment on above: Performed By: #### L [id number] ####[facility] ([facility])[address] [place] [address] Urea nitrogen [Mass/Vol] 52 mg/dL High 7-[address] [facility] Comment on above: Performed By: #### L [id number] ####[facility] ([facility])[address] [place] [address] UREA NITROGEN/CREATININE (MASS RATIO) IN SER/PLAS 21.[address] [facility] Comment on above: Performed By: #### L [id number] ####[facility] ([facility])[address] [place] [address] CONSULTon 02-24-2025 CONSULT Normal [facility] CREATININE, URINE, RANDOMon 02-24-2025 Creatinine (U) [Mass/Vol] 170.0 mg/dL Normal 26-[address] [facility] Comment on above: Performed By: #### L [id number] ####[facility] ([facility])[address] [place] [address] MAGNESIUMon 02-24-2025 Magnesium [Mass/Vol] 2.1 mg/dL Normal 1.9-2.[address] [facility] Comment on above: Performed By: #### L [id number] ####[facility] ([facility])[address] [place] [address] OSMOLALITY, URINEon 02-25-20 25 OSMOLALITY, URINE 686 mOsm/kg Normal 80-1300 [facility] Comment on above: Result Comment: Test Performed by [facility] [address] [place] [address] - Released 02/24/2025 17:40 Performed By: #### L [id number] ####[facility] [id number] [place] [address] PHOSPHORUSon 02-24-2025 Magnesium [Mass/Vol] 5.4 mg/dL High 2.5-5.[address] [facility] Comment on above: Performed By: #### L [id number] ####[facility] ([facility])[address] [place] [address] POTASSIUM, URINE, RANDOMon 0 02-24-2025 Potassium (U) [Moles/Vol] 107 mmol/L Normal [facility] Comment on above: Performed By: #### L [id number] ####[facility] ([facility])[address] [place] [address] SODIUM, URINE, RANDOMon - Sodium (U) [Moles/Vol] 15 mmol/L Normal [facility] Comment on above: Performed By: #### L [id number] ####[facility] ([facility])[address] [place] [address] URINALYSIS WITH MICROSCOPICo n 02-24-2025 BILIRUBIN, TOTAL PRESENCE IN URINE Negative Normal Negative [facility] Comment on above: Performed By: #### L [id number] ####[facility] ([facility])[address] [place] [address] CASTS IN URINE Present Abnormal None Seen [facility] Comment on above: Performed By: #### L [id number] ####[facility] [place] [address] Clarity (U) Cloudy Abnormal Clear [facility] Comment on above: Performed By: #### L [id number] ####[facility] ([facility])[address] [place] [address] Color (U) Yellow Normal Colorless, Yellow, Light-Yellow [facility] Comment on above: Performed By: #### L [id number] ####[facility] [place] [address] GLUCOSE (MG/DL) IN URINE Normal Normal Normal [facility] Comment on above: Performed By: #### L [id number] ####[facility] ([facility])[address] [place] [address] HEMOGLOBIN PRESENCE IN URINE Large Abnormal Negative [facility] Comment on above: Performed By: #### L [id number] ####[facility] ([facility])[address] [place] [address] HYALINE CASTS GRADED/LPF IN URINE SEDIMENT BY MICROSCOPY 3-5 Abnormal 0-[address] [facility] Comment on above: Performed By: #### L [id number] ####[facility] ([facility])[address] [place] [address] Ketones Ql (U) Negative Normal Negative [facility] Comment on above: Performed By: #### L [id number] ####[facility] ([facility])[address] [place] [address] LEUKOCYTE ESTERASE PRESENCE IN URINE BY TEST STRIP Moderate Abnormal Negative [facility] Comment on above: Performed By: #### L [id number] ####[facility] ([facility])[address] [place] [address] MUCUS (#/LPF) IN URINE SEDIMENT Moderate Abnormal None Seen, Occasional, Few [facility] Comment on above: Performed By: #### L [id number] ####[facility] ([facility])[address] [place] [address] NITRITE PRESENCE IN URINE Negative Normal Negative [facility] Comment on above: Performed By: #### L [id number] ####[facility] ([facility])[address] [place] [address] pH (U) 5.5 [pH] Normal 5.0-8.[address] [facility] Comment on above: Performed By: #### L [id number] ####[facility] (BEAKER)[address] [place] [address] Protein (U) [Mass/Vol] 30 mg/dL Abnormal Negative [facility] Comment on above: Performed By: #### L [id number] ####[facility] (BEAKER)[address] [place] [address] RBC (#/HPF) IN URINE SEDIMENT >20 Abnormal None Seen, 0-[address] [facility] Comment on above: Performed By: #### L [id number] ####[facility] (BEAKER)[address] [place] [address] Specific gravity (U) [Rel density] 1.036 High 1.010-1.[address] [facility] Comment on above: Performed By: #### L [id number] ####[facility] (BEAKER)[address] [place] [address] SQUAMOUS EPITHELIAL CELLS (#/LPF) IN URINE SEDIMENT Moderate Abnormal None Seen, Occasional, Few [facility] Comment on above: Performed By: #### L [id number] ####[facility] (BEAKER)[address] [place] [address] UROBILINOGEN (MG/DL) IN URINE Normal Normal Normal [facility] Comment on above: Performed By: #### L [id number] ####[facility] (BEAKER)[address] [place] [address] WBC (LEUKOCYTE) (#/HPF) IN URINE SEDIMENT 21-50 Abnormal None Seen, 0-[address] [facility] Comment on above: Performed By: #### L [id number] ####[facility] (BEAKER)[address] [place] [address] 30on 02-23-[address]25 [address] [facility] BASIC METABOLIC PANELon 01-30 Anion gap [Moles/Vol] 15 mmol/L Normal 7-[address] [facility] Comment on above: Performed By: #### L [id number] ####[facility] (BEAKER)[address] [place] [address] Calcium [Mass/Vol] 9.1 mg/dL Normal 8.6-10.3 [facility] Comment on above: Performed By: #### L [id number] ####[facility] (BEAKER)[address] [place] [address] Chloride [Moles/Vol] 102 mmol/L Normal 98-[address] [facility] Comment on above: Performed By: #### L [id number] ####[facility] [place] [address] CO2 [Moles/Vol] 25 mmol/L Normal 21-31 [facility] Comment on above: Performed By: #### L [id number] ####[facility] ([facility])[address] [place] [address] Creatinine [Mass/Vol] 2.01 mg/dL High 0.70-1.[address] [facility] Comment on above: Performed By: #### L [id number] ####[facility] ([facility])[address] [place] [address] GLOMERULAR FILTRATION RATE ML/MIN/1.73 SQ M.PREDICTED 37.7 mL/min/1.73m*2 Low >60.0 [facility] Comment on above: Result Comment: The [facility]???s estimated glomerular filtration rate (eGFR) will [...] of individuals. Performed By: #### L [id number] ####[facility] [place] [address] Glucose [Mass/Vol] 128 mg/dL High 70-100 [facility] Comment on above: Performed By: #### L [id number] ####[facility] ([facility] [place] [address] Potassium [Moles/Vol] 4.5 mmol/L Normal 3.5-5.[address] [facility] Comment on above: Performed By: #### L [id number] ####[facility] ([facility])[address] [place] [address] Sodium [Moles/Vol] 137 mmol/L Normal 136-145 [facility] Comment on above: Performed By: #### L [id number] ####[facility] (BE[facility]ER)[address] [place] [address] Urea nitrogen [Mass/Vol] 35 mg/dL High 7-[address] [facility] Comment on above: Performed By: #### L [id number] ####[facility] [place] [address] UREA NITROGEN/CREATININE (MASS RATIO) IN SER/PLAS 17.[address] [facility] Comment on above: Performed By: #### L [id number] ####[facility] ([facility])[address] [place] [address] BLOOD CULTUREon 02-23-2025 Bacteria identified Cx Nom (Bld) No growth at 5 days Normal [facility] Comment on above: Performed By: #### L [id number] ####[facility] (BEAKER)[address] [place] [address] Bacteria identified Cx Nom (Bld) No growth at 5 days Normal [facility] Comment on above: Order Comment: From a different site than #1. Performed By: #### L [id number] ####[facility] ([facility] [place] [address] CBCon 02-23-2025 Erythrocyte distribution width (RBC) [Ratio] 15.9 % High 11.5-15.[address] [facility] Comment on above: Performed By: #### L [id number] ####[facility] ([facility] [place] [address] ERYTHROCYTE MEAN CORPUSCULAR HEMOGLOBIN CONCENTRATION (G/DL) BY AUTOMATED 34.6 g/dL Normal 32.0-35.0 [facility] Comment on above: Performed By: #### L [id number] ####[facility] ([facility] [place] [address] Hematocrit (Bld) [Volume fraction] 25.4 % Low 39.0-50.[address] [facility] Comment on above: Performed By: #### L [id number] ####[facility] ([facility] [address] Hemoglobin (Bld) [Mass/Vol] 8.8 g/dL Low 13.0-17.[address] [facility] Comment on above: Performed By: #### L [id number] ####[facility] ([facility] [place] [address] MCH (RBC) [Entitic mass] 31.5 pg Normal 27.0-33.[address] [facility] Comment on above: Performed By: #### L [id number] ####[facility] ([facility] [place], [place] [address] MCV (RBC) [Entitic vol] 91.0 fL Normal 82.0-98.[address] [facility] Comment on above: Performed By: #### L [id number] ####[facility] ([facility])[address] [place] [address] PLATELETS (10*3/UL) IN BLOOD AUTOMATED COUNT 171 10*3/uL Normal 150-[address] [facility] Comment on above: Performed By: #### L [id number] ####[facility] ([facility] [place] [address] RBC (Bld) [#/Vol] 2.79 10*6/uL Low 4.20-5.70 [facility] Comment on above: Performed By: #### L [id number] ####[facility] (BEAKER)[address] [place] [address] WBC (Bld) [#/Vol] 14.02 10*3/uL High 4.00-10.60 [facility] Comment on above: Performed By: #### L [id number] ####[facility] ([facility] [place] [address] Erythrocyte distribution width (RBC) [Ratio] 15.9 % High 11.5-15.[address] [facility] Comment on above: Performed By: #### L [id number] ####[facility] ([facility] [address] ERYTHROCYTE MEAN CORPUSCULAR HEMOGLOBIN CONCENTRATION (G/DL) BY AUTOMATED 35.4 g/dL High 32.0-35.0 [facility] Comment on above: Performed By: #### L [id number] ####[facility] ([facility] [place] [address] Hematocrit (Bld) [Volume fraction] 28.0 % Low 39.0-50.[address] [facility] Comment on above: Performed By: #### L [id number] ####[facility] ([facility] [place], [place] [address] Hemoglobin (Bld) [Mass/Vol] 9.9 g/dL Low 13.0-17.[address] [facility] Comment on above: Performed By: #### L [id number] ####[facility] (BEAKER)[address] [place], [place] [address] MCH (RBC) [Entitic mass] 31.6 pg Normal 27.0-33.[address] [facility] Comment on above: Performed By: #### L [id number] ####[facility] (BEAKER)[address] [place], [place] [address] MCV (RBC) [Entitic vol] 89.5 fL Normal 82.0-98.[address] [facility] Comment on above: Performed By: #### L [id number] ####[facility] (BE[facility]ER)[address] [place], [place] [address] PLATELETS (10*3/UL) IN BLOOD AUTOMATED COUNT 192 10*3/uL Normal 150-[address] [facility] Comment on above: Performed By: #### L [id number] ####[facility] (BEAKER)[address] [place], [place] [address] RBC (Bld) [#/Vol] 3.13 10*6/uL Low 4.20-5.70 [facility] Comment on above: Performed By: #### L [id number] ####[facility] ([facility]ER)[address] [place] [address] WBC (Bld) [#/Vol] 16.62 10*3/uL High 4.00-10.60 [facility] Comment on above: Performed By: #### L [id number] ####[facility] ([facility] [place] [address] Erythrocyte distribution width (RBC) [Ratio] 15.8 % High 11.5-15.[address] [facility] Comment on above: Performed By: #### L [id number] ####[facility] ([facility] [place] [address] ERYTHROCYTE MEAN CORPUSCULAR HEMOGLOBIN CONCENTRATION (G/DL) BY AUTOMATED 35.3 g/dL High 32.0-35.0 [facility] Comment on above: Performed By: #### L [id number] ####[facility] ([facility] [place] [address] Hematocrit (Bld) [Volume fraction] 29.5 % Low 39.0-50.[address] [facility] Comment on above: Performed By: #### L [id number] ####[facility] (BE[facility]ER)[address] [place] [address] Hemoglobin (Bld) [Mass/Vol] 10.4 g/dL Low 13.0-17.[address] [facility] Comment on above: Performed By: #### L [id number] ####[facility] (BEAKER)[address] [place] [address] MCH (RBC) [Entitic mass] 31.6 pg Normal 27.0-33.[address] [facility] Comment on above: Performed By: #### L [id number] ####[facility] (BE[facility]ER)[address] [place] [address] MCV (RBC) [Entitic vol] 89.7 fL Normal 82.0-98.[address] [facility] Comment on above: Performed By: #### L [id number] ####[facility] ([facility]ER)[address] [place] [address] PLATELETS (10*3/UL) IN BLOOD AUTOMATED COUNT 200 10*3/uL Normal 150-[address] [facility] Comment on above: Performed By: #### L [id number] ####[facility] (BE[facility]ER)[address] [place] [address] RBC (Bld) [#/Vol] 3.29 10*6/uL Low 4.20-5.70 [facility] Comment on above: Performed By: #### L [id number] ####[facility] (BEAKER)[address] [place] [address] WBC (Bld) [#/Vol] 15.65 10*3/uL High 4.00-10.60 [facility] Comment on above: Performed By: #### L [id number] ####[facility] (BEAKER)[address] [place] [address] Erythrocyte distribution width (RBC) [Ratio] 15.8 % High 11.5-15.[address] [facility] Comment on above: Performed By: #### L [id number] ####[facility] (BE[facility]ER)[address] [place] [address] ERYTHROCYTE MEAN CORPUSCULAR HEMOGLOBIN CONCENTRATION (G/DL) BY AUTOMATED 35.0 g/dL Normal 32.0-35.0 [facility] Comment on above: Performed By: #### L [id number] ####[facility] (BEAKER)[address] [place] [address] Hematocrit (Bld) [Volume fraction] 31.1 % Low 39.0-50.[address] [facility] Comment on above: Performed By: #### L [id number] ####[facility] (BEAKER)[address] [place] [address] Hemoglobin (Bld) [Mass/Vol] 10.9 g/dL Low 13.0-17.[address] [facility] Comment on above: Performed By: #### L [id number] ####[facility] ([facility]ER)[address] [place] [address] MCH (RBC) [Entitic mass] 31.5 pg Normal 27.0-33.[address] [facility] Comment on above: Performed By: #### L [id number] ####[facility] (BEAKER)[address] [place] [address] MCV (RBC) [Entitic vol] 89.9 fL Normal 82.0-98.[address] [facility] Comment on above: Performed By: #### L [id number] ####[facility] (BEAKER)[address] [place], [place] [address] PLATELETS (10*3/UL) IN BLOOD AUTOMATED COUNT 214 10*3/uL Normal 150-[address] [facility] Comment on above: Performed By: #### L [id number] ####[facility] (BEAKER)[address] [place], [place] [address] RBC (Bld) [#/Vol] 3.46 10*6/uL Low 4.20-5.70 [facility] Comment on above: Performed By: #### L [id number] ####[facility] (BEAKER)[address] [place] [address] WBC (Bld) [#/Vol] 14.82 10*3/uL High 4.00-10.60 [facility] Comment on above: Performed By: #### L [id number] ####[facility] (BEAKER)[address] [place] [address] Erythrocyte distribution width (RBC) [Ratio] 15.9 % High 11.5-15.[address] [facility] Comment on above: Performed By: #### L [id number] ####[facility] (BEAKER)[address] [place] [address] ERYTHROCYTE MEAN CORPUSCULAR HEMOGLOBIN CONCENTRATION (G/DL) BY AUTOMATED 34.6 g/dL Normal 32.0-35.0 [facility] Comment on above: Performed By: #### L [id number] ####[facility] [place] [address] Hematocrit (Bld) [Volume fraction] 32.1 % Low 39.0-50.[address] [facility] Comment on above: Performed By: #### L [id number] ####[facility] ([facility])[address] [address] Hemoglobin (Bld) [Mass/Vol] 11.1 g/dL Low 13.0-17.[address] [facility] Comment on above: Performed By: #### L [id number] ####[facility] ([facility])[address] [address] MCH (RBC) [Entitic mass] 31.4 pg Normal 27.0-33.[address] [facility] Comment on above: Performed By: #### L [id number] ####[facility] ([facility])[address] [place] [address] MCV (RBC) [Entitic vol] 90.9 fL Normal 82.0-98.[address] [facility] Comment on above: Performed By: #### L [id number] ####[facility] ([facility])[address] [place] [address] PLATELETS (10*3/UL) IN BLOOD AUTOMATED COUNT 213 10*3/uL Normal 150-[address] [facility] Comment on above: Performed By: #### L [id number] ####[facility] ([facility])[address] [place] [address] RBC (Bld) [#/Vol] 3.53 10*6/uL Low 4.20-5.70 [facility] Comment on above: Performed By: #### L [id number] ####[facility] ([facility])[address] [place] [address] WBC (Bld) [#/Vol] 13.82 10*3/uL High 4.00-10.60 [facility] Comment on above: Performed By: #### L [id number] ####[facility] (BEAKER)[address] [place] [address] COMPREHENSIVE METABOLIC PANE Rogelio 02-23-2025 Albumin [Mass/Vol] 3.5 g/dL Normal 3.5-5.7 [facility] Comment on above: Performed By: #### L [id number] ####[facility] (BEAKER)[address] [place] [address] ALP [Catalytic activity/Vol] 61 U/L Normal 34-[address] [facility] Comment on above: Performed By: #### L [id number] ####[facility] (BEAKER)[address] [place] [address] ALT [Catalytic activity/Vol] 32 U/L Normal 7-[address] [facility] Comment on above: Performed By: #### L [id number] ####[facility] (BEAKER)[address] [place] [address] Anion gap [Moles/Vol] 16 mmol/L Normal 7-[address] [facility] Comment on above: Performed By: #### L [id number] ####[facility] (BEAKER)[address] [place] [address] AST [Catalytic activity/Vol] 25 U/L Normal 13-[address] [facility] Comment on above: Performed By: #### L [id number] ####[facility] (BEAKER)[address] [place] [address] Bilirubin [Mass/Vol] 3.4 mg/dL High 0.3-1.[address] [facility] Comment on above: Performed By: #### L [id number] ####[facility] (BE[facility]ER)[address] [place] [address] Calcium [Mass/Vol] 8.9 mg/dL Normal 8.6-10.3 [facility] Comment on above: Performed By: #### L [id number] ####[facility] (BEAKER)[address] [place] [address] Chloride [Moles/Vol] 101 mmol/L Normal 98-[address] [facility] Comment on above: Performed By: #### L [id number] ####[facility] (BEAKER)[address] [place] [address] CO2 [Moles/Vol] 24 mmol/L Normal 21-31 [facility] Comment on above: Performed By: #### L [id number] ####[facility] (BEAKER)[address] [place] [address] Creatinine [Mass/Vol] 2.27 mg/dL High 0.70-1.[address] [facility] Comment on above: Performed By: #### L [id number] ####[facility] (BEAKER)[address] [place] [address] GLOMERULAR FILTRATION RATE ML/MIN/1.73 SQ M.PREDICTED 32.6 mL/min/1.73m*2 Low >60.0 [facility] Comment on above: Result Comment: [facility]???s estimated glomerular filtration rate (eGFR) will [...] of individuals. Performed By: #### L [id number] ####[facility] (BEAKER)[address] [place] [address] Glucose [Mass/Vol] 118 mg/dL High 70-100 [facility] Comment on above: Performed By: #### L [id number] ####[facility] (BEAKER)[address] [place] [address] Potassium [Moles/Vol] 4.5 mmol/L Normal 3.5-5.[address] [facility] Comment on above: Performed By: #### L [id number] ####[facility] (BEAKER)[address] [place] [address] Protein [Mass/Vol] 5.5 g/dL Low 6.0-8.3 [facility] Comment on above: Performed By: #### L [id number] ####[facility] ([facility])[address] [place] [address] Sodium [Moles/Vol] 136 mmol/L Normal 136-145 [facility] Comment on above: Performed By: #### L [id number] ####[facility] ([facility])[address] [place] [address] Urea nitrogen [Mass/Vol] 39 mg/dL High 7-[address] [facility] Comment on above: Performed By: #### L [id number] ####[facility] ([facility])[address] [place] [address] UREA NITROGEN/CREATININE (MASS RATIO) IN SER/PLAS 17.[address] [facility] Comment on above: Performed By: #### L [id number] ####[facility] ([facility])[address] [place] [address] Consultation/Specialist Note on 02-23-2025 Consultation/Specia list Note [id number]#1. 00OTGTIFF [facility] LACTIC ACID WITH 4 HOUR REFL EXon 02-23-2025 LACTATE (MMOL/L) IN SER/PLAS 1.8 mmol/L Normal 0.5-2.[address] [facility] Comment on above: Performed By: #### L [id number] ####[facility] ([facility])[address] [place] [address] MAGNESIUMon 02-23-2025 Magnesium [Mass/Vol] 2.0 mg/dL Normal 1.9-2.[address] [facility] Comment on above: Performed By: #### L [id number] ####[facility] ([facility])[address] [place] [address] Outside Recordson 02-23-2025 Outside Records [id number]#1. 00OTGTIFF [facility] Outside Records [id number]#1. 00OTGTIFF Normal [facility] PHOSPHORUSon 02-23-2025 Magnesium [Mass/Vol] 6.1 mg/dL High 2.5-5.[address] [facility] Comment on above: Performed By: #### L [id number] ####[facility] [place] [address] ANTI-XA (HEPARIN LEVEL)on HEPARIN UNFRACTIONATED (U/ML) IN PPP BY CHROMOGENIC METHOD 0.55 IU/mL Normal 0.3-0.[address] [facility] Comment on above: Result Comment: Linda roxaban and Apixaban will interfere with the anti Xa assay used to monitor UFH and LMWH. Performed By: #### L [id number] ####[facility] ([facility])[address] [place] [address] HEPARIN UNFRACTIONATED (U/ML) IN PPP BY CHROMOGENIC METHOD 0.71 IU/mL High 0.3-0.[address] [facility] Comment on above: Result Comment: Linda roxaban and Apixaban will interfere with the anti Xa assay used to monitor UFH and LMWH. Performed By: #### L [id number] ####[facility] ([facility])[address] [place] [address] BLOOD CULTUREon 02-22-2025 Bacteria identified Cx Nom (Bld) No growth at 5 days Normal [facility] Comment on above: Order Comment: From a different site than #1. Performed By: #### L [id number] ####[facility] [place] [address] CBCon 02-22-2025 Erythrocyte distribution width (RBC) [Ratio] 15.9 % High 11.5-15.[address] [facility] Comment on above: Performed By: #### L [id number] ####[facility] ([facility])[address] [place] [address] ERYTHROCYTE MEAN CORPUSCULAR HEMOGLOBIN CONCENTRATION (G/DL) BY AUTOMATED 34.1 g/dL Normal 32.0-35.0 [facility] Comment on above: Performed By: #### L [id number] ####[facility] ([facility])[address] [place] [address] Hematocrit (Bld) [Volume fraction] 33.4 % Low 39.0-50.[address] [facility] Comment on above: Performed By: #### L [id number] ####[facility] ([facility])[address] [address] Hemoglobin (Bld) [Mass/Vol] 11.4 g/dL Low 13.0-17.[address] [facility] Comment on above: Performed By: #### L [id number] ####[facility] ([facility])[address] [address] MCH (RBC) [Entitic mass] 31.1 pg Normal 27.0-33.[address] [facility] Comment on above: Performed By: #### L [id number] ####[facility] ([facility])[address] [place] [address] MCV (RBC) [Entitic vol] 91.3 fL Normal 82.0-98.[address] [facility] Comment on above: Performed By: #### L [id number] ####[facility] ([facility])[address] [address] PLATELETS (10*3/UL) IN BLOOD AUTOMATED COUNT 215 10*3/uL Normal 150-[address] [facility] Comment on above: Performed By: #### L [id number] ####[facility] ([facility])[address] [place] [address] RBC (Bld) [#/Vol] 3.66 10*6/uL Low 4.20-5.70 [facility] Comment on above: Performed By: #### L [id number] ####[facility] [address] WBC (Bld) [#/Vol] 10.74 10*3/uL High 4.00-10.60 [facility] Comment on above: Performed By: #### L [id number] ####[facility] [place] [address] Erythrocyte distribution width (RBC) [Ratio] 15.8 % High 11.5-15.[address] [facility] Comment on above: Performed By: #### L [id number] ####[facility] [place] [address] ERYTHROCYTE MEAN CORPUSCULAR HEMOGLOBIN CONCENTRATION (G/DL) BY AUTOMATED 33.7 g/dL Normal 32.0-35.0 [facility] Comment on above: Performed By: #### L [id number] ####[facility] ([facility])[address] [place] [address] Hematocrit (Bld) [Volume fraction] 40.1 % Normal 39.0-50.[address] [facility] Comment on above: Performed By: #### L [id number] ####[facility] ([facility])[address] [place] [address] Hemoglobin (Bld) [Mass/Vol] 13.5 g/dL Normal 13.0-17.[address] [facility] Comment on above: Performed By: #### L [id number] ####[facility] ([facility])[address] [place] [address] MCH (RBC) [Entitic mass] 30.9 pg Normal 27.0-33.[address] [facility] Comment on above: Performed By: #### L [id number] ####[facility] [place] [address] MCV (RBC) [Entitic vol] 91.8 fL Normal 82.0-98.0 [facility] [facility] Comment on above: Performed By: #### L [id number] ####[facility] ([facility])[address] [place] [address] PLATELETS (10*3/UL) IN BLOOD AUTOMATED COUNT 257 10*3/uL Normal 150-[address] [facility] Comment on above: Performed By: #### L [id number] ####[facility] (BEAKER)[address] [place] [address] RBC (Bld) [#/Vol] 4.37 10*6/uL Normal 4.20-5.70 [facility] Comment on above: Performed By: #### L [id number] ####[facility] (BEAKER)[address] [address] WBC (Bld) [#/Vol] 11.61 10*3/uL High 4.00-10.60 [facility] Comment on above: Performed By: #### L [id number] ####[facility] (BEAKER)[address] [address] ERYTHROCYTE MEAN CORPUSCULAR HEMOGLOBIN CONCENTRATION (G/DL) BY AUTOMATED 34.2 g/dL Normal 32.0-35.0 [facility] Comment on above: Performed By: #### L [id number] ####[facility] (BEAKER)[address] [place] [address] Hematocrit (Bld) [Volume fraction] 45.0 % Normal 39.0-50.[address] [facility] Comment on above: Performed By: #### L [id number] ####[facility] (BEAKER)[address] [place] [address] Hemoglobin (Bld) [Mass/Vol] 15.4 g/dL Normal 13.0-17.[address] [facility] Comment on above: Performed By: #### L [id number] ####[facility] (BEAKER)[address] [place] [address] MCH (RBC) [Entitic mass] 31.3 pg Normal 27.0-33.[address] [facility] Comment on above: Performed By: #### L [id number] ####[facility] (BEAKER)[address] [place] [address] MCV (RBC) [Entitic vol] 91.5 fL Normal 82.0-98.[address] [facility] Comment on above: Performed By: #### L [id number] ####[facility] (BEAKER)[address] [place] [address] PLATELETS (10*3/UL) IN BLOOD AUTOMATED COUNT 242 10*3/uL Normal 150-[address] [facility] Comment on above: Performed By: #### L [id number] ####[facility] [place] [address] RBC (Bld) [#/Vol] 4.92 10*6/uL Normal 4.20-5.70 [facility] Comment on above: Performed By: #### L [id number] ####[facility] ([facility])[address] [place] [address] WBC (Bld) [#/Vol] 12.27 10*3/uL High 4.00-10.60 [facility] Comment on above: Performed By: #### L [id number] ####[facility] ([facility])[address] [place] [address] CBC WITH AUTO DIFFERENTIALon 02-22-2025 Basophils (Bld) [#/Vol] 0.02 10*3/uL Normal 0.00-0.[address] [facility] Comment on above: Performed By: #### L [id number] ####[facility] ([facility])[address] [place] [address] Basophils/100 WBC (Bld) 0.2 % Normal 0.0-1.[address] [facility] Comment on above: Performed By: #### L [id number] ####[facility] [place] [address] Eosinophils (Bld) [#/Vol] 0.00 10*3/uL Normal 0.00-0.[address] [facility] Comment on above: Performed By: #### L [id number] ####[facility] (BEAKER)[address] [place] [address] Eosinophils/100 WBC (Bld) 0.0 % Normal 0.0-6.[address] [facility] Comment on above: Performed By: #### L [id number] ####[facility] [place] [address] Erythrocyte distribution width (RBC) [Ratio] 15.9 % High 11.5-15.[address] [facility] Comment on above: Performed By: #### L [id number] ####[facility] [place] [address] Performed By: #### L [id number] ####[facility] ([facility])[address] [place] [address] ERYTHROCYTE MEAN CORPUSCULAR HEMOGLOBIN CONCENTRATION (G/DL) BY AUTOMATED 32.9 g/dL Normal 32.0-35.0 [facility] Comment on above: Performed By: #### L [id number] ####[facility] ([facility])[address] [place] [address] Hematocrit (Bld) [Volume fraction] 42.5 % Normal 39.0-50.[address] [facility] Comment on above: Performed By: #### L [id number] ####[facility] ([facility])[address] [place] [address] Hemoglobin (Bld) [Mass/Vol] 14.0 g/dL Normal 13.0-17.[address] [facility] Comment on above: Performed By: #### L [id number] ####[facility] ([facility])[address] [place] [address] Immature granulocytes (Bld) [#/Vol] 0.05 10*3/uL Normal 0.00-0.[address] [facility] Comment on above: Performed By: #### L [id number] ####[facility] ([facility])[address] [place] [address] Immature granulocytes/100 WBC (Bld) 0.5 % Normal 0.0-1.[address] [facility] Comment on above: Performed By: #### L [id number] ####[facility] [place] [address] Lymphocytes (Bld) [#/Vol] 1.14 10*3/uL Low 1.20-4.[address] [facility] Comment on above: Performed By: #### L [id number] ####[facility] (BEAKER)[address] [place] [address] Lymphocytes/100 WBC (Bld) 10.6 % Low 20.0-45.[address] [facility] Comment on above: Performed By: #### L [id number] ####[facility] (BEAKER)[address] [place] [address] MCH (RBC) [Entitic mass] 30.8 pg Normal 27.0-33.[address] [facility] Comment on above: Performed By: #### L [id number] ####[facility] (BEAKER)[address] [place] [address] MCV (RBC) [Entitic vol] 93.4 fL Normal 82.0-98.[address] [facility] Comment on above: Performed By: #### L [id number] ####[facility] (BEAKER)[address] [place] [address] Monocytes (Bld) [#/Vol] 0.73 10*3/uL Normal 0.10-1.[address] [facility] Comment on above: Performed By: #### L [id number] ####[facility] (BEAKER)[address] [place] [address] Monocytes/100 WBC (Bld) 6.8 % Normal 5.0-12.[address] [facility] Comment on above: Performed By: #### L [id number] ####[facility] (BEAKER)[address] [place] [address] Neutrophils (Bld) [#/Vol] 8.79 10*3/uL High 1.60-7.[address] [facility] Comment on above: Performed By: #### L [id number] ####[facility] (BEAKER)[address] [place] [address] Neutrophils/100 WBC (Bld) 81.9 % High 40.0-72.[address] [facility] Comment on above: Performed By: #### L [id number] ####[facility] [place] [address] NRBC (PER 100 WBCS) BY AUTOMATED COUNT 0.0 % Normal [address] [facility] Comment on above: Performed By: #### L [id number] ####[facility] [place] [address] PLATELETS (10*3/UL) IN BLOOD AUTOMATED COUNT 224 10*3/uL Normal 150-[address] [facility] Comment on above: Performed By: #### L [id number] ####[facility] ([facility])[address] [place] [address] RBC (Bld) [#/Vol] 4.55 10*6/uL Normal 4.20-5.70 [facility] Comment on above: Performed By: #### L [id number] ####[facility] ([facility])[address] [place] [address] WBC (Bld) [#/Vol] 10.73 10*3/uL High 4.00-10.60 [facility] Comment on above: Performed By: #### L [id number] ####[facility] ([facility])[address] [place] [address] COMPREHENSIVE METABOLIC PANE Rogelio 02-22-2025 Albumin [Mass/Vol] 4.0 g/dL Normal 3.5-5.7 [facility] Comment on above: Performed By: #### L [id number] ####[facility] [place] [address] Performed By: #### L [id number] ####[facility] ([facility] [place] [address] ALP [Catalytic activity/Vol] 70 U/L Normal 34-[address] [facility] Comment on above: Performed By: #### L [id number] ####[facility] [place] [address] ALT [Catalytic activity/Vol] 28 U/L Normal 7-[address] [facility] Comment on above: Performed By: #### L [id number] ####[facility] (BEAKER)[address] [place] [address] Anion gap [Moles/Vol] 16 mmol/L Normal 7-[address] [facility] Comment on above: Performed By: #### L [id number] ####[facility] (BEAKER)[address] [place] [address] AST [Catalytic activity/Vol] 22 U/L Normal 13-[address] [facility] Comment on above: Performed By: #### L [id number] ####[facility] (BEAKER)[address] [place] [address] Performed By: #### L [id number] ####[facility] ([facility])[address] [place] [address] Bilirubin [Mass/Vol] 5.1 mg/dL High 0.3-1.[address] [facility] Comment on above: Performed By: #### L [id number] ####[facility] (BEAKER)[address] [place] [address] Calcium [Mass/Vol] 9.4 mg/dL Normal 8.6-10.3 [facility] Comment on above: Performed By: #### L [id number] ####[facility] (BEAKER)[address] [place] [address] Chloride [Moles/Vol] 104 mmol/L Normal 98-[address] [facility] Comment on above: Performed By: #### L [id number] ####[facility] (BEAKER)[address] [place] [address] CO2 [Moles/Vol] 24 mmol/L Normal 21-31 [facility] Comment on above: Performed By: #### L [id number] ####[facility] (BEAKER)[address] [place] [address] Creatinine [Mass/Vol] 1.43 mg/dL High 0.70-1.[address] [facility] Comment on above: Performed By: #### L [id number] ####[facility] (BEAKER)[address] [place] [address] GLOMERULAR FILTRATION RATE ML/MIN/1.73 SQ M.PREDICTED 56.8 mL/min/1.73m*2 Low >60.0 [facility] Comment on above: Result Comment: The [facility]???s estimated glomerular filtration rate (eGFR) will [...] of individuals. Performed By: #### L [id number] ####[facility] ([facility])[address] [place] [address] Glucose [Mass/Vol] 134 mg/dL High 70-100 [facility] Comment on above: Performed By: #### L [id number] ####[facility] ([facility])[address] [place] [address] Potassium [Moles/Vol] 4.5 mmol/L Normal 3.5-5.[address] [facility] Comment on above: Performed By: #### L [id number] ####[facility] ([facility])[address] [place] [address] Protein [Mass/Vol] 6.2 g/dL Normal 6.0-8.3 [facility] Comment on above: Performed By: #### L [id number] ####[facility] [place] [address] Sodium [Moles/Vol] 139 mmol/L Normal 136-145 [facility] Comment on above: Performed By: #### L [id number] ####[facility] [place] [address] Urea nitrogen [Mass/Vol] 27 mg/dL High 7-[address] [facility] Comment on above: Performed By: #### L [id number] ####[facility] ([facility])[address] [place] [address] UREA NITROGEN/CREATININE (MASS RATIO) IN SER/PLAS 18.[address] [facility] Comment on above: Performed By: #### L [id number] ####[facility] ([facility])[address] [place] [address] CONSULTon 02-22-2025 CONSULT Normal [facility] CONSULT Normal [facility] CT ABDOMEN PELVIS W IV CONTR Obi 02-22-2025 CT ABDOMEN PELVIS W IV CONTRAST Invalid Interpretation Code [facility] CT CHEST W IV CONTRASTon CT CHEST W IV CONTRAST Invalid Interpretation Code [facility] HEMOGLOBIN AND HEMATOCRIT, B LOODon 02-22-2025 Hematocrit (Bld) [Volume fraction] 42.9 % Normal 39.0-50.[address] [facility] Comment on above: Performed By: #### L [id number] ####[facility] ([facility])[address] [place] [address] Hemoglobin (Bld) [Mass/Vol] 14.5 g/dL Normal 13.0-17.[address] [facility] Comment on above: Performed By: #### L [id number] ####[facility] ([facility])[address] [place] [address] HEPATIC FUNCTION PANELon ALP [Catalytic activity/Vol] 72 U/L Normal 34-[address] [facility] Comment on above: Performed By: #### L [id number] ####[facility] ([facility])[address] [place] [address] ALT [Catalytic activity/Vol] 30 U/L Normal 7-[address] [facility] Comment on above: Performed By: #### L [id number] ####[facility] ([facility])[address] [place] [address] Bilirubin [Mass/Vol] 4.8 mg/dL High 0.3-1.[address] [facility] Comment on above: Performed By: #### L [id number] ####[facility] ([facility])[address] [place] [address] Magnesium [Mass/Vol] 1.1 mg/dL High 0-0.[address] [facility] Comment on above: Performed By: #### L [id number] ####[facility] ([facility])[address] [place] [address] Protein [Mass/Vol] 6.1 g/dL Normal 6.0-8.3 [facility] Comment on above: Performed By: #### L [id number] ####[facility] ([facility])[address] [place] [address] HIGH SENSITIVITY TROPONIN Io n 02-22-2025 HS TROPONIN I (NG/L) 27 ng/L High <[address] [facility] Comment on above: Performed By: #### L [id number] ####[facility] ([facility])[address] [place] [address] HS TROPONIN I (NG/L) 31 ng/L High <[address] [facility] Comment on above: Performed By: #### L [id number] ####[facility] ([facility])[address] [place] [address] HPon 02-22-2025 HP [address] [facility] LACTIC ACID WITH 4 HOUR REFL EXon 02-22-2025 LACTATE (MMOL/L) IN SER/PLAS 1.6 mmol/L Normal 0.5-2.[address] [facility] Comment on above: Performed By: #### L [id number] ####[facility] ([facility])[address] [place] [address] LACTATE (MMOL/L) IN SER/PLAS 2.2 mmol/L Normal 0.5-2.[address] [facility] Comment on above: Performed By: #### L [id number] ####[facility] ([facility])[address] [place] [address] MAGNESIUMon 02-22-2025 Magnesium [Mass/Vol] 1.8 mg/dL Low 1.9-2.[address] [facility] Comment on above: Performed By: #### L [id number] ####[facility] ([facility])[address] [place] [address] Magnesium [Mass/Vol] 2.0 mg/dL Normal 1.9-2.[address] [facility] Comment on above: Performed By: #### L [id number] ####[facility] ([facility])[address] [place] [address] NURSNOTEon 02-22-2025 NURSNOTE Lift Driver called rapid at 0607 am pt was hypotensive BP 53/38 TRUST CLERK nurse at bedside 0609 am. MD notified came to bedside, orders were placed. 0700 BP 91/63. Day shift TRUST CLERK nurse at bedside. Normal [facility] POCT GLUCOSE METER UNSOLICIT ED RESULTSon 02-22-2025 Glucose [Mass/Vol] 125 mg/dL High 70-105 [facility] Comment on above: Order Comment: Waive d Testing in the ED is performed under the ED CLIA certificate #[id number]. Result Comment: gila tello Performed By: #### L [id number] ####[facility] ([facility])[address] [place] [address] Glucose [Mass/Vol] 129 mg/dL High 70-105 [facility] Comment on above: Order Comment: Waive d Testing in the ED is performed under the ED CLIA certificate #[id number]. Result Comment: bib garcia Performed By: #### L [id number] ####[facility] ([facility])[address] [place] [address] PROTIME-INRon 02-22-2025 INR IN PPP BY COAGULATION ASSAY 1.47 High 0.90-1.[address] [facility] Comment on above: Result Comment: ACCC [...] CHEST 1995;[id number]. Performed By: #### L [id number] ####[facility] (Periscope)[address] [place] [address] PROTHROMBIN TIME (PT) IN PPP BY COAGULATION ASSAY 17.9 Seconds High 12.3-14.[address] [facility] Comment on above: Performed By: #### L [id number] ####[facility] (Periscope)[address] [place] [address] TYPE AND SCREENon 02-22-2025 AB SCREEN Negative Normal [facility] Comment on above: Performed By: #### L [id number] ####[facility], ABO group Nom (Bld) O Normal [facility] Comment on above: Performed By: #### L [id number] ####[facility], RH TYPE IN BLOOD Positive Normal [facility] Comment on above: Performed By: #### L [id number] ####[facility], URINALYSIS MICROSCOPIC WITH REFLEX CULTUREon 02-22-2025 RBC (#/HPF) IN URINE SEDIMENT >20 Abnormal None Seen, 0-[address] [facility] Comment on above: Performed By: #### L [id number] ####[facility] (Periscope)[address] [place] [address] SQUAMOUS EPITHELIAL CELLS (#/LPF) IN URINE SEDIMENT None Seen Normal None Seen, Occasional, Few [facility] Comment on above: Performed By: #### L [id number] ####[facility] (BEAKER)[address] [place] [address] WBC (LEUKOCYTE) (#/HPF) IN URINE SEDIMENT None Seen Normal None Seen, 0-[address] [facility] Comment on above: Performed By: #### L [id number] ####[facility] ([facility])[address] [place] [address] URINALYSIS WITH REFLEX CULTU REon 02-22-2025 BILIRUBIN, TOTAL PRESENCE IN URINE Negative Normal Negative [facility] Comment on above: Performed By: #### L [id number] ####[facility] ([facility])[address] [place] [address] Clarity (U) Turbid Abnormal Clear [facility] Comment on above: Performed By: #### L [id number] ####[facility] ([facility])[address] [place] [address] Color (U) Red Abnormal Colorless, Yellow, Light-Yellow [facility] Comment on above: Performed By: #### L [id number] ####[facility] ([facility])[address] [place] [address] GLUCOSE (MG/DL) IN URINE Normal Normal Normal [facility] Comment on above: Performed By: #### L [id number] ####[facility] ([facility])[address] [place] [address] HEMOGLOBIN PRESENCE IN URINE Large Abnormal Negative [facility] Comment on above: Performed By: #### L [id number] ####[facility] ([facility])[address] [place] [address] Ketones Ql (U) Negative Normal Negative [facility] Comment on above: Performed By: #### L [id number] ####[facility] ([facility])[address] [place] [address] LEUKOCYTE ESTERASE PRESENCE IN URINE BY TEST STRIP Trace Abnormal Negative [facility] Comment on above: Performed By: #### L [id number] ####[facility] ([facility])[address] [place] [address] NITRITE PRESENCE IN URINE Negative Normal Negative [facility] Comment on above: Performed By: #### L [id number] ####[facility] (BEAKER)[address] [place] [address] pH (U) 5.5 [pH] Normal 5.0-8.[address] [facility] Comment on above: Performed By: #### L [id number] ####[facility] [place] [address] Protein (U) [Mass/Vol] 30 mg/dL Abnormal Negative [facility] Comment on above: Performed By: #### L [id number] ####[facility] ([facility])[address] [place] [address] Specific gravity (U) [Rel density] >1.050 High 1.010-1.[address] [facility] Comment on above: Performed By: #### L [id number] ####[facility] ([facility])[address] [place] [address] UROBILINOGEN (MG/DL) IN URINE Normal Normal Normal [facility] Comment on above: Performed By: #### L [id number] ####[facility] ([facility])[address] [place] [address] 30on 02-21-2025 [address] [facility] ANTI-XA (HEPARIN LEVEL)on HEPARIN UNFRACTIONATED (U/ML) IN PPP BY CHROMOGENIC METHOD 0.57 IU/mL Normal 0.3-0.[address] [facility] Comment on above: Result Comment: Linda roxaban and Apixaban will interfere with the anti Xa assay used to monitor UFH and LMWH. Performed By: #### L [id number] ####[facility] [place] [address] APTTon 02-21-2025 ACTIVATED PARTIAL THROMBOPLASTIN TIME IN PPP BY COAGULATION ASSAY 117.9 Seconds High 25.0-35.[address] [facility] Comment on above: Result Comment: Clin ical significance of the APTT is questionable in the presence of heparin. Performed By: #### L [id number] ####[facility] [place] [address] BASIC METABOLIC PANELon 08-2 Anion gap [Moles/Vol] 13 mmol/L Normal 7-[address] [facility] Comment on above: Performed By: #### L [id number] ####[facility] (BEAKER)[address] [place] [address] Calcium [Mass/Vol] 8.9 mg/dL Normal 8.6-10.3 [facility] Comment on above: Performed By: #### L [id number] ####[facility] [place] [address] Chloride [Moles/Vol] 104 mmol/L Normal 98-[address] [facility] Comment on above: Performed By: #### L [id number] ####[facility] ([facility] [place] [address] CO2 [Moles/Vol] 26 mmol/L Normal 21-31 [facility] Comment on above: Performed By: #### L [id number] ####[facility] ([facility])[address] [place] [address] Creatinine [Mass/Vol] 0.99 mg/dL Normal 0.70-1.[address] [facility] Comment on above: Performed By: #### L [id number] ####[facility] ([facility])[address] [place] [address] GLOMERULAR FILTRATION RATE ML/MIN/1.73 SQ M.PREDICTED 88.3 mL/min/1.73m*2 Normal >60.0 [facility] Comment on above: Result Comment: The [facility]???s estimated glomerular filtration rate (eGFR) will [...] of individuals. Performed By: #### L [id number] ####[facility] ([facility] [place] [address] Glucose [Mass/Vol] 86 mg/dL Normal 70-100 [facility] Comment on above: Performed By: #### L [id number] ####[facility] ([facility] [place] [address] Potassium [Moles/Vol] 4.0 mmol/L Normal 3.5-5.[address] [facility] Comment on above: Performed By: #### L [id number] ####[facility] ([facility])[address] [place] [address] Sodium [Moles/Vol] 139 mmol/L Normal 136-145 [facility] Comment on above: Performed By: #### L [id number] ####[facility] ([facility])[address] [place] [address] Urea nitrogen [Mass/Vol] 16 mg/dL Normal 7-[address] [facility] Comment on above: Performed By: #### L [id number] ####[facility] ([facility])[address] [place] [address] UREA NITROGEN/CREATININE (MASS RATIO) IN SER/PLAS 16.[address] [facility] Comment on above: Performed By: #### L [id number] ####[facility] ([facility])[address] [place] [address] CBCon 02-21-2025 Erythrocyte distribution width (RBC) [Ratio] 15.2 % High 11.5-15.[address] [facility] Comment on above: Performed By: #### L [id number] ####[facility] ([facility] [place] [address] ERYTHROCYTE MEAN CORPUSCULAR HEMOGLOBIN CONCENTRATION (G/DL) BY AUTOMATED 34.7 g/dL Normal 32.0-35.0 [facility] Comment on above: Performed By: #### L [id number] ####[facility] [place] [address] Hematocrit (Bld) [Volume fraction] 44.4 % Normal 39.0-50.[address] [facility] Comment on above: Performed By: #### L [id number] ####[facility] ([facility])[address] [place] [address] Hemoglobin (Bld) [Mass/Vol] 15.4 g/dL Normal 13.0-17.[address] [facility] Comment on above: Performed By: #### L [id number] ####[facility] ([facility] [place] [address] MCH (RBC) [Entitic mass] 31.0 pg Normal 27.0-33.[address] [facility] Comment on above: Performed By: #### L [id number] ####[facility] ([facility] [place] [address] MCV (RBC) [Entitic vol] 89.3 fL Normal 82.0-98.[address] [facility] Comment on above: Performed By: #### L [id number] ####[facility] ([facility])[address] [place] [address] PLATELETS (10*3/UL) IN BLOOD AUTOMATED COUNT 177 10*3/uL Normal 150-[address] [facility] Comment on above: Performed By: #### L [id number] ####[facility] ([facility] [place] [address] RBC (Bld) [#/Vol] 4.97 10*6/uL Normal 4.20-5.70 [facility] Comment on above: Performed By: #### L [id number] ####[facility] ([facility] [place] [address] WBC (Bld) [#/Vol] 7.24 10*3/uL Normal 4.00-10.60 [facility] Comment on above: Performed By: #### L [id number] ####[facility] ([facility])[address] [place] [address] CT ABDOMEN PELVIS WO IV CONT RASTon 08-24-2025 CT ABDOMEN PELVIS WO IV CONTRAST Invalid Interpretation Code [facility] 30on 02-20-2025 [address] [facility] [address] [facility] [address] [facility] ANTI-XA (HEPARIN LEVEL)on HEPARIN UNFRACTIONATED (U/ML) IN PPP BY CHROMOGENIC METHOD 0.55 IU/mL Normal 0.3-0.[address] [facility] Comment on above: Result Comment: [place] roxaban and Apixaban will interfere with the anti Xa assay used to monitor UFH and LMWH. Performed By: #### L [id number] ####[facility] ([facility])[address] [place] [address] HEPARIN UNFRACTIONATED (U/ML) IN PPP BY CHROMOGENIC METHOD 0.61 IU/mL Normal 0.3-0.[address] [facility] Comment on above: Result Comment: [place] roxaban and Apixaban will interfere with the anti Xa assay used to monitor UFH and LMWH. Performed By: #### L [id number] ####[facility] ([employer])[address] [place] [address] HEPARIN UNFRACTIONATED (U/ML) IN PPP BY CHROMOGENIC METHOD 0.84 IU/mL High 0.3-0.[address] [facility] Comment on above: Order Comment: Other specimen was sitting in tube station, unknown for how long specimen was stationed Result Comment: [place] roxaban and Apixaban will interfere with the anti Xa assay used to monitor UFH and LMWH. Performed By: #### L [id number] ####[facility] ([facility])[address] [place] [address] APTTon 02-20-2025 ACTIVATED PARTIAL THROMBOPLASTIN TIME IN PPP BY COAGULATION ASSAY 169.6 Seconds Critically high 25.0-35.[address] [facility] Comment on above: Result Comment: Clin ical significance of the APTT is questionable in the presence of heparin. Performed By: #### L [id number] ####[facility] ([facility])[address] [place] [address] BASIC METABOLIC PANELon 01-30 Anion gap [Moles/Vol] 14 mmol/L Normal 7-[address] [facility] Comment on above: Performed By: #### L [id number] ####[facility] ([facility] [place] [address] Calcium [Mass/Vol] 8.7 mg/dL Normal 8.6-10.3 [facility] Comment on above: Performed By: #### L [id number] ####[facility] ([facility] [place] [address] Chloride [Moles/Vol] 105 mmol/L Normal 98-[address] [facility] Comment on above: Performed By: #### L [id number] ####[facility] ([facility])[address] [place] [address] CO2 [Moles/Vol] 25 mmol/L Normal 21-31 [facility] Comment on above: Performed By: #### L [id number] ####[facility] ([facility])[address] [place] [address] Creatinine [Mass/Vol] 0.99 mg/dL Normal 0.70-1.[address] [facility] Comment on above: Performed By: #### L [id number] ####[facility] ([facility])[address] [place] [address] GLOMERULAR FILTRATION RATE ML/MIN/1.73 SQ M.PREDICTED 88.3 mL/min/1.73m*2 Normal >60.0 [facility] Comment on above: Result Comment: The [facility]???s estimated glomerular filtration rate (eGFR) will [...] of individuals. Performed By: #### L [id number] ####[facility] ([facility])[address] [place] [address] Glucose [Mass/Vol] 59 mg/dL Low 70-100 [facility] Comment on above: Performed By: #### L [id number] ####[facility] ([facility] [place] [address] Potassium [Moles/Vol] 3.8 mmol/L Normal 3.5-5.[address] [facility] Comment on above: Performed By: #### L [id number] ####[facility] ([facility] [place] [address] Sodium [Moles/Vol] 140 mmol/L Normal 136-145 [facility] Comment on above: Performed By: #### L [id number] ####[facility] ([facility])[address] [place] [address] Urea nitrogen [Mass/Vol] 16 mg/dL Normal 7-[address] [facility] Comment on above: Performed By: #### L [id number] ####[facility] ([facility])[address] [place] [address] UREA NITROGEN/CREATININE (MASS RATIO) IN SER/PLAS 16.2 [facility] Comment on above: Performed By: #### L [id number] ####[facility] ([facility])[address] [place] [address] HEMOGLOBIN AND HEMATOCRIT, B LOODon 02-20-2025 Hematocrit (Bld) [Volume fraction] 42.9 % Normal 39.0-50.[address] [facility] Comment on above: Performed By: #### L [id number] ####[facility] ([facility])[address] [place] [address] Hemoglobin (Bld) [Mass/Vol] 14.8 g/dL Normal 13.0-17.[address] [facility] Comment on above: Performed By: #### L [id number] ####[facility] ([facility])[address] [place] [address] 30on 02-19-2025 [address] [facility] ANTI-XA (HEPARIN LEVEL)on HEPARIN UNFRACTIONATED (U/ML) IN PPP BY CHROMOGENIC METHOD 0.54 IU/mL Normal 0.3-0.[address] [facility] Comment on above: Result Comment: [place] roxaban and Apixaban will interfere with the anti Xa assay used to monitor UFH and LMWH. Performed By: #### L [id number] ####[facility] ([facility])[address] [place] [address] HEPARIN UNFRACTIONATED (U/ML) IN PPP BY CHROMOGENIC METHOD 0.41 IU/mL Normal 0.3-0.[address] [facility] Comment on above: Order Comment: Ok to draw AM labs at this timeCheck anti-Xa level every 6 hours while on heparin infusion, or per protocol. Result Comment: [place] roxaban and Apixaban will interfere with the anti Xa assay used to monitor UFH and LMWH. Performed By: #### L [id number] ####[facility] ([facility])[address] [place] [address] APTTon 02-19-2025 ACTIVATED PARTIAL THROMBOPLASTIN TIME IN PPP BY COAGULATION ASSAY 154.5 Seconds Critically high 25.0-35.[address] [facility] Comment on above: Result Comment: Clin ical significance of the APTT is questionable in the presence of heparin. Performed By: #### L [id number] ####[facility] ([facility])[address] [place] [address] ACTIVATED PARTIAL THROMBOPLASTIN TIME IN PPP BY COAGULATION ASSAY 84.7 Seconds High 25.0-35.[address] [facility] Comment on above: Order Comment: Check aPTT every 6 hours while on heparin infusion, or per protocol. Result Comment: Clin ical significance of the APTT is questionable in the presence of heparin. Performed By: #### L [id number] ####[facility] ([facility])[address] [place] [address] BASIC METABOLIC PANELon 01-30 Anion gap [Moles/Vol] 12 mmol/L Normal 7-[address] [facility] Comment on above: Performed By: #### L [id number] ####[facility] [place] [address] Calcium [Mass/Vol] 8.3 mg/dL Low 8.6-10.3 [facility] Comment on above: Performed By: #### L [id number] ####[facility] ([facility] [place] [address] Chloride [Moles/Vol] 108 mmol/L High 98-[address] [facility] Comment on above: Performed By: #### L [id number] ####[facility] ([facility])[address] [place] [address] CO2 [Moles/Vol] 25 mmol/L Normal 21-31 [facility] Comment on above: Performed By: #### L [id number] ####[facility] ([facility])[address] [place] [address] Creatinine [Mass/Vol] 1.07 mg/dL Normal 0.70-1.[address] [facility] Comment on above: Performed By: #### L [id number] ####[facility] ([facility])[address] [place] [address] GLOMERULAR FILTRATION RATE ML/MIN/1.73 SQ M.PREDICTED 80.4 mL/min/1.73m*2 Normal >60.0 [facility] Comment on above: Result Comment: The [facility]???s estimated glomerular filtration rate (eGFR) will [...] of individuals. Performed By: #### L [id number] ####[facility] [place] [address] Glucose [Mass/Vol] 75 mg/dL Normal 70-100 [facility] Comment on above: Performed By: #### L [id number] ####[facility] ([facility])[address] [place] [address] Potassium [Moles/Vol] 3.8 mmol/L Normal 3.5-5.[address] [facility] Comment on above: Performed By: #### L [id number] ####[facility] ([facility])[address] [place] [address] Sodium [Moles/Vol] 141 mmol/L Normal 136-145 [facility] Comment on above: Performed By: #### L [id number] ####[facility] ([facility])[address] [place] [address] Urea nitrogen [Mass/Vol] 19 mg/dL Normal 7-[address] [facility] Comment on above: Performed By: #### L [id number] ####[facility] [place] [address] UREA NITROGEN/CREATININE (MASS RATIO) IN SER/PLAS 17.[address] [facility] Comment on above: Performed By: #### L [id number] ####[facility] ([facility])[address] [place] [address] CBCon 02-19-2025 Erythrocyte distribution width (RBC) [Ratio] 15.0 % Normal 11.5-15.[address] [facility] Comment on above: Performed By: #### L [id number] ####[facility] ([facility])[address] [place] [address] ERYTHROCYTE MEAN CORPUSCULAR HEMOGLOBIN CONCENTRATION (G/DL) BY AUTOMATED 34.0 g/dL Normal 32.0-35.0 [facility] Comment on above: Performed By: #### L [id number] ####[facility] ([facility])[address] [place] [address] Hematocrit (Bld) [Volume fraction] 40.9 % Normal 39.0-50.[address] [facility] Comment on above: Performed By: #### L [id number] ####[facility] ([facility])[address] [place] [address] Hemoglobin (Bld) [Mass/Vol] 13.9 g/dL Normal 13.0-17.[address] [facility] Comment on above: Performed By: #### L [id number] ####[facility] [address] MCH (RBC) [Entitic mass] 31.2 pg Normal 27.0-33.[address] [facility] Comment on above: Performed By: #### L [id number] ####[facility] ([facility])[address] [place] [address] MCV (RBC) [Entitic vol] 91.9 fL Normal 82.0-98.[address] [facility] Comment on above: Performed By: #### L [id number] ####[facility] ([facility])[address] [place] [address] PLATELETS (10*3/UL) IN BLOOD AUTOMATED COUNT 165 10*3/uL Normal 150-[address] [facility] Comment on above: Performed By: #### L [id number] ####[facility] ([facility])[address] [place] [address] RBC (Bld) [#/Vol] 4.45 10*6/uL Normal 4.20-5.70 [facility] Comment on above: Performed By: #### L [id number] ####[facility] ([facility])[address] [place] [address] WBC (Bld) [#/Vol] 5.92 10*3/uL Normal 4.00-10.60 [facility] Comment on above: Performed By: #### L [id number] ####[facility] ([facility])[address] [place] [address] CONSULTon 02-19-2025 CONSULT Normal [facility] CONSULT Normal [facility] HIGH SENSITIVITY TROPONIN Io n 02-19-2025 HS TROPONIN I (NG/L) 30 ng/L High <[address] [facility] Comment on above: Performed By: #### L [id number] ####[facility] ([facility])[address] [place] [address] HS TROPONIN I (NG/L) 29 ng/L High <[address] [facility] Comment on above: Performed By: #### L [id number] ####[facility] ([facility])[address] [place] [address] HS TROPONIN I (NG/L) 30 ng/L High <[address] [facility] Comment on above: Performed By: #### L [id number] ####[facility] ([facility])[address] [place] [address] HS TROPONIN I (NG/L) 27 ng/L High <[address] [facility] Comment on above: Performed By: #### L [id number] ####[facility] ([facility])[address] [place] [address] HPon 02-19-[address] [facility] MAGNESIUMon 02-19-2025 Magnesium [Mass/Vol] 1.9 mg/dL Normal 1.9-2.[address] [facility] Comment on above: Performed By: #### L [id number] ####[facility] ([facility])[address] [place] [address] 30on 02-18-2025 [address] [facility] ANTI-XA (HEPARIN LEVEL)on HEPARIN UNFRACTIONATED (U/ML) IN PPP BY CHROMOGENIC METHOD <0.10 Invalid Interpretation Code 0.3-0.[address] [facility] Comment on above: Order Comment: Check anti-Xa level every 6 hours while on heparin infusion, or per protocol. Result Comment: [place] roxaban and Apixaban will interfere with the anti Xa assay used to monitor UFH and LMWH. Performed By: #### L [id number] ####[facility] ([facility])[address] [place] [address] APTTon 02-18-2025 ACTIVATED PARTIAL THROMBOPLASTIN TIME IN PPP BY COAGULATION ASSAY 32.7 Seconds Normal 25.0-35.[address] [facility] Comment on above: Order Comment: Basel ine aPTT before initiating heparin infusion. Result Comment: Clin ical significance of the APTT is questionable in the presence of heparin. Performed By: #### L [id number] ####[facility] ([facility])[address] [place] [address] B-TYPE NATRIURETIC PEPTIDEon 02-18-2025 Natriuretic peptide B (Bld) [Mass/Vol] 491 pg/mL High 0-[address] [facility] Comment on above: Performed By: #### L [id number] ####[facility] ([facility])[address] [place] [address] CBC WITH AUTO DIFFERENTIALon 02-18-2025 Basophils (Bld) [#/Vol] 0.02 10*3/uL Normal 0.00-0.[address] [facility] Comment on above: Performed By: #### L [id number] ####[facility] ([facility])[address] [place] [address] Basophils/100 WBC (Bld) 0.3 % Normal 0.0-1.[address] [facility] Comment on above: Performed By: #### L [id number] ####[facility] ([facility])[address] [place] [address] Eosinophils (Bld) [#/Vol] 0.08 10*3/uL Normal 0.00-0.[address] [facility] Comment on above: Performed By: #### L [id number] ####[facility] ([facility])[address] [place] [address] Eosinophils/100 WBC (Bld) 1.1 % Normal 0.0-6.[address] [facility] Comment on above: Performed By: #### L [id number] ####[facility] ([facility])[address] [place] [address] Erythrocyte distribution width (RBC) [Ratio] 15.1 % High 11.5-15.[address] [facility] Comment on above: Performed By: #### L [id number] ####[facility] ([facility])[address] [place] [address] ERYTHROCYTE MEAN CORPUSCULAR HEMOGLOBIN CONCENTRATION (G/DL) BY AUTOMATED 34.5 g/dL Normal 32.0-35.0 [facility] Comment on above: Performed By: #### L [id number] ####[facility] ([facility])[address] [place] [address] Hematocrit (Bld) [Volume fraction] 41.7 % Normal 39.0-50.[address] [facility] Comment on above: Performed By: #### L [id number] ####[facility] ([facility])[address] [place] [address] Hemoglobin (Bld) [Mass/Vol] 14.4 g/dL Normal 13.0-17.[address] [facility] Comment on above: Performed By: #### L [id number] ####[facility] ([facility])[address] [place] [address] Immature granulocytes (Bld) [#/Vol] 0.03 10*3/uL Normal 0.00-0.[address] [facility] Comment on above: Performed By: #### L [id number] ####[facility] ([facility])[address] [place] [address] Immature granulocytes/100 WBC (Bld) 0.4 % Normal 0.0-1.[address] [facility] Comment on above: Performed By: #### L [id number] ####[facility] ([facility])[address] [place] [address] Lymphocytes (Bld) [#/Vol] 1.51 10*3/uL Normal 1.20-4.[address] [facility] Comment on above: Performed By: #### L [id number] ####[facility] ([facility])[address] [place] [address] Lymphocytes/100 WBC (Bld) 20.2 % Normal 20.0-45.[address] [facility] Comment on above: Performed By: #### L [id number] ####[facility] ([facility])[address] [place] [address] MCH (RBC) [Entitic mass] 31.5 pg Normal 27.0-33.[address] [facility] Comment on above: Performed By: #### L [id number] ####[facility] ([facility])[address] [place] [address] MCV (RBC) [Entitic vol] 91.2 fL Normal 82.0-98.[address] [facility] Comment on above: Performed By: #### L [id number] ####[facility] ([facility])[address] [place] [address] Monocytes (Bld) [#/Vol] 0.64 10*3/uL Normal 0.10-1.[address] [facility] Comment on above: Performed By: #### L [id number] ####[facility] ([facility])[address] [place] [address] Monocytes/100 WBC (Bld) 8.5 % Normal 5.0-12.0 [facility] [facility] Comment on above: Performed By: #### L [id number] ####[facility] ([facility])[address] [place] [address] Neutrophils (Bld) [#/Vol] 5.21 10*3/uL Normal 1.60-7.[address] [facility] Comment on above: Performed By: #### L [id number] ####[facility] ([facility])[address] [place] [address] Neutrophils/100 WBC (Bld) 69.5 % Normal 40.0-72.[address] [facility] Comment on above: Performed By: #### L [id number] ####[facility] ([facility])[address] [place] [address] NRBC (PER 100 WBCS) BY AUTOMATED COUNT 0.0 % Normal [address] [facility] Comment on above: Performed By: #### L [id number] ####[facility] [place] [address] PLATELETS (10*3/UL) IN BLOOD AUTOMATED COUNT 195 10*3/uL Normal 150-[address] [facility] Comment on above: Performed By: #### L [id number] ####[facility] [place] [address] RBC (Bld) [#/Vol] 4.57 10*6/uL Normal 4.20-5.70 [facility] Comment on above: Performed By: #### L [id number] ####[facility] ([facility])[address] [place] [address] WBC (Bld) [#/Vol] 7.49 10*3/uL Normal 4.00-10.60 [facility] Comment on above: Performed By: #### L [id number] ####[facility] ([facility])[address] [place] [address] COMPREHENSIVE METABOLIC PANE Rogelio 02-18-2025 Albumin [Mass/Vol] 3.6 g/dL Normal 3.5-5.7 [facility] Comment on above: Performed By: #### L [id number] ####[facility] ([facility])[address] [place] [address] ALP [Catalytic activity/Vol] 58 U/L Normal 34-[address] [facility] Comment on above: Performed By: #### L [id number] ####[facility] ([facility])[address] [place] [address] ALT [Catalytic activity/Vol] 30 U/L Normal 7-[address] [facility] Comment on above: Performed By: #### L [id number] ####[facility] ([facility])[address] [place] [address] Anion gap [Moles/Vol] 11 mmol/L Normal 7-[address] [facility] Comment on above: Performed By: #### L [id number] ####[facility] ([facility])[address] [place] [address] AST [Catalytic activity/Vol] 19 U/L Normal 13-[address] [facility] Comment on above: Performed By: #### L [id number] ####[facility] [place] [address] Bilirubin [Mass/Vol] 3.6 mg/dL High 0.3-1.[address] [facility] Comment on above: Performed By: #### L [id number] ####[facility] ([facility])[address] [place] [address] Calcium [Mass/Vol] 8.5 mg/dL Low 8.6-10.3 [facility] Comment on above: Performed By: #### L [id number] ####[facility] ([facility])[address] [place] [address] Chloride [Moles/Vol] 108 mmol/L High 98-[address] [facility] Comment on above: Performed By: #### L [id number] ####[facility] ([facility])[address] [place] [address] CO2 [Moles/Vol] 21 mmol/L Normal 21-31 [facility] Comment on above: Performed By: #### L [id number] ####[facility] ([facility])[address] [place] [address] Creatinine [Mass/Vol] 1.02 mg/dL Normal 0.70-1.[address] [facility] Comment on above: Performed By: #### L [id number] ####[facility] ([facility])[address] [place] [address] GLOMERULAR FILTRATION RATE ML/MIN/1.73 SQ M.PREDICTED 85.2 mL/min/1.73m*2 Normal >60.0 [facility] Comment on above: Result Comment: [facility]???s estimated glomerular filtration rate (eGFR) will [...] of individuals. Performed By: #### L [id number] ####[facility] [place] [address] Glucose [Mass/Vol] 88 mg/dL Normal 70-100 [facility] Comment on above: Performed By: #### L [id number] ####[facility] [place] [address] Potassium [Moles/Vol] 4.0 mmol/L Normal 3.5-5.[address] [facility] Comment on above: Performed By: #### L [id number] ####[facility] ([facility])[address] [place] [address] Protein [Mass/Vol] 5.5 g/dL Low 6.0-8.3 [facility] Comment on above: Performed By: #### L [id number] ####[facility] ([facility])[address] [place] [address] Sodium [Moles/Vol] 136 mmol/L Normal 136-145 [facility] Comment on above: Performed By: #### L [id number] ####[facility] ([facility])[address] [place] [address] Urea nitrogen [Mass/Vol] 21 mg/dL Normal 7-[address] [facility] Comment on above: Performed By: #### L [id number] ####[facility] ([facility])[address] [place] [address] UREA NITROGEN/CREATININE (MASS RATIO) IN SER/PLAS 20.[address] [facility] Comment on above: Performed By: #### L [id number] ####[facility] ([facility])[address] [place] [address] HIGH SENSITIVITY TROPONIN Io n 02-18-2025 HS TROPONIN I (NG/L) 27 ng/L High <[address] [facility] Comment on above: Performed By: #### L [id number] ####[facility] ([facility] [place] [address] HPon 02-18-[address] [facility] LACTIC ACID, PLASMAon 2024 LACTATE (MMOL/L) IN SER/PLAS 1.1 mmol/L Normal 0.5-2.[address] [facility] Comment on above: Performed By: #### L [id number] ####[facility] ([facility])[address] [place] [address] MAGNESIUMon 02-18-2025 Magnesium [Mass/Vol] 2.1 mg/dL Normal 1.9-2.[address] [facility] Comment on above: Performed By: #### L [id number] ####[facility] ([facility])[address] [place] [address] Outside Recordson 02-18-2025 Outside Records [id number]#1 .00OTGTIFF Normal [facility] Outside Records [id number]#1 .00OTGTIFF Normal [facility] Outside Records [id number]#1 .00OTGTIFF Normal [facility] Outside Records [id number]#1 .00OTGTIFF Normal [facility] Outside Records [id number]#1 .00OTGTIFF Normal [facility] Outside Records [id number]#1 .00OTGTIFF Normal [facility] PHOSPHORUSon 02-18-2025 Magnesium [Mass/Vol] 2.7 mg/dL Normal 2.5-5.[address] [facility] Comment on above: Performed By: #### L [id number] ####[facility] ([facility])[address] [place] [address] PROTIME-INRon 02-18-2025 INR IN PPP BY COAGULATION ASSAY 1.47 High 0.90-1.[address] [facility] Comment on above: Result Comment: [facility] P RECOMMENDED INR FOR WARFARIN THERAPY CONDITION INRPROPHYLAXIS OF VENOUS THROMBOSIS 2-3(HIGH-RISK SURGERY)TREATMENT OF VENOUS THROMBOSIS 2-3TREATMENT OF PULMONARY EMBOLISM 2-3PREVENTION OF SYSTEMIC EMBOLISM: 2-3 ACUTE MYOCARDIAL INFARCTION TISSUE HEART VALVES VALVULAR HEART DISEASE ATRIAL FIBRILLATION RECURRENT SYSTEMIC EMBOLISMMECHANICAL HEART VALVE 2.5-3.5 FROM: ORAL ANTICOAGULANTS. MECHANISM OF ACTION, CLINICAL EFFECTIVENESS, AND OPTIMAL THERAPEUTIC RANGE. CHEST 1995;108:231S-246S. Performed By: #### L [id number] ####[facility])[address] [place] [address] PROTHROMBIN TIME (PT) IN PPP BY COAGULATION ASSAY 17.9 Seconds High 12.3-14.[address] [facility] Comment on above: Performed By: #### L [id number] ####[facility])[address] [place] [address] TSH3 REFLEX TO FT4on 025 THYROTROPIN (MIU/L) IN SER/PLAS BY DETECTION LIMIT <= 0.05 MIU/L 3.22 mIU/L Normal 0.34-5.[address] [facility] Comment on above: Performed By: #### L [id number] ####[facility])[address] [place] [address] Lab - Other Lab Resultson Lab - Other Lab Results [id number]#1 .00OTGTIFF Normal [facility] Orders Onlyon 06-01-2024 Orders Only Normal [facility] Lab - Other Lab Resultson Lab - Other Lab Results [id number]#1.00O TGTIFF Normal [facility] Patient Handouton 05-05-2024 Patient Handout [id number]#1. 00OTGTIFF Normal [facility] Patient Handout [id number]#1. 00OTGTIFF [facility] CBC AUTO DIFFon 05-09-2022 BASO # 0.0 103/ul Normal 0.0-0.1 [facility] Comment on above: Performed By: #### C BC #### [facility] [address] [address] [address] Anny Corcoran Basophils/100 WBC (Bld) 0.4 % Normal 0.2-2.0 [facility] Comment on above: Performed By: #### C BC #### [facility] [address] [address] [address] Anny Corcoran EO # 0.1 103/ul Normal 0.0-0.7 [facility] Comment on above: Performed By: #### C BC #### [facility] [address] [address] [address] Anny Corcoran Eosinophils/100 WBC (Bld) 1.5 % Normal 0.9-7.0 [facility] Comment on above: Performed By: #### C BC #### [facility] [address] [address] [address] Anny Corcoran Erythrocyte distribution width (RBC) [Ratio] 14.1 % Normal 11.0-15.0 [facility] Comment on above: Performed By: #### C BC #### [facility] [address] [address] [address] Anny Corcoran Hematocrit (Bld) [Volume fraction] 37.6 % Critically low 42.0-54.0 [facility] Comment on above: Performed By: #### C BC #### [facility] [address] [address] [address] Anny Corcoran Hemoglobin (Bld) [Mass/Vol] 12.9 g/dL Critically low 14.0-18.0 [facility] Comment on above: Performed By: #### C BC #### [facility] [address] [place] [address] Dr. Anny Corcoran IG # 0.01 10e3/ul Normal 0.00-0.03 [facility] Comment on above: Performed By: #### C BC #### [facility] [address] [place] [address] Dr. Anny Corcoran IG % 0.2 % Normal 0.0-0.5 [facility] Comment on above: Performed By: #### C BC #### [facility] [address] [place] [address] Dr. Anny Corcoran LYMPH # 1.1 103/ul Critically low 1.2-3.8 [facility] Comment on above: Performed By: #### C BC #### [facility] [address] [place] [address] Dr. Anny Corcoran Lymphocytes/100 WBC (Bld) 21.8 % Normal 20.5-60.0 [facility] Comment on above: Performed By: #### C BC #### [facility] [address] [place] [address] Dr. Anny Corcoran MANUAL DIFF REQ NO Normal [facility] Comment on above: Performed By: #### C BC #### [facility] [address] [place] [address] Dr. Anny Corcoran MCH (RBC) [Entitic mass] 31.2 pg Normal 25.9-34.0 [facility] Comment on above: Performed By: #### C BC #### [facility] [address] [place] [address] Dr. Anny Corcoran MCHC (RBC) [Mass/Vol] 34.3 g/dL Normal 29.9-35.2 [facility] Comment on above: Performed By: #### C BC #### [facility] [address] [place] [address] Dr. Anny Corcoran MCV (RBC) [Entitic vol] 90.8 fL Normal 80.0-94.0 [facility] Comment on above: Performed By: #### C BC #### [facility] [address] [address] [address] Anny Corcoran MONO # 0.4 103/ul Normal 0.3-0.8 [facility] Comment on above: Performed By: #### C BC #### [facility] [address] [address] [address] Anny Corcoran Monocytes/100 WBC (Bld) 8.5 % Normal 1.7-12.0 [facility] Comment on above: Performed By: #### C BC #### [facility] [address] [address] [address] Anny Corcoran NEUT # 3.5 103/ul Normal 1.4-6.5 [facility] Comment on above: Performed By: #### C BC #### [facility] [address] [place] [address] Dr. Anny Corcoran Neutrophils/100 WBC (Bld) 67.6 % Normal 43.0-75.0 [facility] Comment on above: Performed By: #### C BC #### [facility] [address] [place] [address] Dr. Anny Corcoran Platelet mean volume (Bld) [Entitic vol] 9.4 fL Critically low 9.5-13.5 [facility] Comment on above: Performed By: #### C BC #### [facility] [address] [place] [address] Dr. Anny Corcoran PLT 209 103/ul Normal 150-450 [facility] Comment on above: Performed By: #### C BC #### [facility] [address] [place] [address] Dr. Anny Corcoran RBC 4.14 106/ul Critically low 4.70-6.10 [facility] Comment on above: Performed By: #### C BC #### [facility] [address] [place] [address] Dr. Anny Corcoran WBC 5.2 103/ul Normal 4.0-11.0 [facility] Comment on above: Performed By: #### C BC #### [facility] [address] [place] [address] Dr. Anny Corcoran LIPID PROFILEon 05-09-2022 CHOL-HDL RATIO NORM SEE BELOW Normal [facility] Comment on above: Result Comment: 3.3 - 4.4 LOW RISK 4.4 - 7.1 AVERAGE RISK 7.1 - 11.0 MODERATE RISK >11.0 HIGH RISK Performed By: #### L IPID, CMP #### [facility] [address] [address] [address] Anny Corcoran Cholesterol [Mass/Vol] 103 mg/dL Normal <=200 [facility] Comment on above: Performed By: #### L IPID, CMP #### [facility] [address] [address] [address] Anny Corcoran Cholesterol in HDL [Mass/Vol] 54 mg/dL Normal 40-60 [facility] Comment on above: Performed By: #### L IPID, CMP #### [facility] [address] [address] [address] Anny Corcoran Cholesterol in LDL [Mass/Vol] 43.8 mg/dL Normal [facility] Comment on above: Performed By: #### L IPID, CMP #### [facility] [address] [address] [address] Anny Corcoran Cholesterol.total/C holesterol in HDL [Mass ratio] 1.9 {ratio} Normal [facility] Comment on above: Performed By: #### L IPID, CMP #### [facility] [address] [address] [address] Anny Corcoran HDL NORMAL > or = 60 mg/dl - LO W CARDIOVASCULAR RISK <40 mg/dl - HIGH CARDIOVASCULAR RISK Normal [facility] Comment on above: Performed By: #### L IPID, CMP #### [facility] [address] [address] [address] Anny Corcoran LDL CALC NORMAL SEE BELOW Normal [facility] Comment on above: Result Comment: <100 mg/dl OPTIMAL 100 - 129 mg/dl NEAR OR ABOVE OPTIMAL 130 - 159 mg/dl BORDERLINE HIGH 160 - 189 mg/dl HIGH >190 mg/dl VERY HIGH Performed By: #### L IPID, CMP #### [facility] [address] [address] [address] Anny Corcoran Triglyceride [Mass/Vol] 26 mg/dL Normal <=150 [facility] Comment on above: Performed By: #### L IPID, CMP #### [facility] [address] [address] [address] Anny Corcoran VLDL CALC 5.2 mg/dL Normal [facility] Comment on above: Performed By: #### L IPID, CMP #### [facility] [address] [address] [address] Anny Corcoran PROF 14(COMP METB)on 022 Albumin [Mass/Vol] 4.0 g/dL Normal 3.4-5.0 [facility] Comment on above: Performed By: #### L IPID, CMP #### [facility] [address] [place] [address] Dr. Anny Corcoran Albumin/Globulin [Mass ratio] 1.4 {ratio} Normal [facility] Comment on above: Performed By: #### L IPID, CMP #### [facility] [address] [place] [address] Dr. Anny Corcoran ALP [Catalytic activity/Vol] 106 U/L Normal 46-116 [facility] Comment on above: Performed By: #### L IPID, CMP #### [facility] [address] [place] [address] Dr. Anny Corcoran ALT [Catalytic activity/Vol] 28 U/L Normal 16-63 [facility] Comment on above: Performed By: #### L IPID, CMP #### [facility] [address] [place] [address] Dr. Anny Corcoran Anion gap [Moles/Vol] 7.3 mmol/L Normal [facility] Comment on above: Performed By: #### L IPID, CMP #### [facility] [address] [place] [address] Dr. Anny Corcoran AST [Catalytic activity/Vol] 23 U/L Normal 15-37 [facility] Comment on above: Performed By: #### L IPID, CMP #### [facility] [address] [address] [address] Anny Corcoran Bilirubin [Mass/Vol] 2.7 mg/dL Critically high 0.2-1.0 [facility] Comment on above: Performed By: #### L IPID, CMP #### [facility] [address] [address] [address] Anny Corcoran Calcium [Mass/Vol] 9.0 mg/dL Normal 8.5-10.1 [facility] Comment on above: Performed By: #### L IPID, CMP #### [facility] [address] [address] [address] Anny Corcoran Chloride [Moles/Vol] 104 mmol/L Normal 98-107 [facility] Comment on above: Performed By: #### L IPID, CMP #### [facility] [address] [place] [address] Dr. Anny Corcoran CO2 [Moles/Vol] 32.5 mmol/L Critically high 21.0-32.0 [facility] Comment on above: Performed By: #### L IPID, CMP #### [facility] [address] [place] [address] Dr. Anny Corcoran Creatinine [Mass/Vol] 0.78 mg/dL Normal 0.70-1.30 [facility] Comment on above: Performed By: #### L IPID, CMP #### [facility] [address] [place] [address] Dr. Anny Corcoran EGFR-AF MALAGASY >60 Normal >=60 [facility] Comment on above: Performed By: #### L IPID, CMP #### [facility] [address] [place] [address] Dr. Anny Corcoran EGFR-NON AF MALAGASY >60 Normal >=60 [facility] Comment on above: Performed By: #### L IPID, CMP #### [facility] [address] [place] [address] Dr. Anny Corcoran Globulin (S) [Mass/Vol] 2.8 g/dL Normal [facility] Comment on above: Performed By: #### L IPID, CMP #### [facility] [address] [address] [address] Anny Corcoran Glucose [Mass/Vol] 86 mg/dL Normal 74-106 [facility] Comment on above: Performed By: #### L IPID, CMP #### [facility] [address] [address] [address] Anny Corcoran Potassium [Moles/Vol] 3.8 mmol/L Normal 3.5-5.1 [facility] Comment on above: Performed By: #### L IPID, CMP #### [facility] [address] [address] [address] Anny Corcoran Protein [Mass/Vol] 6.8 g/dL Normal 6.4-8.2 [facility] Comment on above: Performed By: #### L IPID, CMP #### [facility] [address] [place] [address] Dr. Anny Corcoran Sodium [Moles/Vol] 140 mmol/L Normal 136-145 [facility] Comment on above: Performed By: #### L IPID, CMP #### [facility] [address] [address] [address] Anny Corcoran Urea nitrogen [Mass/Vol] 19.0 mg/dL Critically high 7.0-18.0 [facility] Comment on above: Performed By: #### L IPID, CMP #### [facility] [address] [place] [address] Dr. Anny Crocoran Urea nitrogen/Creatinine [Mass ratio] 24.4 mg/mg Normal [facility] Comment on above: Performed By: #### L IPID, CMP #### [facility] [address] [place] [address] Dr. Anny Corcoran LYME DISEASE AB, TOTAL AND I GM W/WB REFLon 06-01-2021 Lyme Disease Ab, Quant, IgM <0.80 Normal 0.00-0.79 [facility] Comment on above: Result Comment: Nega tive <0.80 Equivocal 0.80 - 1.19 Positive >1.19 . IgM levels may peak at 3-6 weeks post infection, then gradually decline. Performed By: #### L YMA #### [facility] [address] [place], [place] [address] Dr. Anny Corcoran Lyme IgG/IgM Ab <0.91 Normal 0.00-0.90 [facility] Comment on above: Result Comment: Nega tive <0.91 Equivocal 0.91 - 1.09 Positive >1.09 Performed By: #### L YMA #### [facility] [address] HEAD WO CONon [...] CANDIS MENDEZ Date: 2021-05-21 12:48 Normal [facility] Encounters Encounter Date Encounter Type Care Provider Facility Start: 03-23-2025 End: 03-23-2025 ambulatory HUMBLE BURGESS [facility] Start: 03-22-2025 End: 03-22-2025 ambulatory KAUSHAL REID [facility] Start: 03-18-2025 End: 03-18-2025 ambulatory IZZY HILL [facility] Start: 03-15-2025 End: 03-15-2025 ambulatory LAUREANO LINDER Facility:[facility] Start: 03-10-2025 End: 03-11-2025 ambulatory CE POZO [facility] Start: 03-04-2025 Evaluation and management of inpatient RUTH WILLIAMS [facility] Start: 03-04-2025 Evaluation and management of inpatient SHEELA MARINELLI [facility] Start: 03-03-2025 Evaluation and management of inpatient KARINA MOULTON [facility] Start: 03-03-2025 Evaluation and management of inpatient RUTH [facility] Start: 03-02-2025 Evaluation and management of inpatient RUTH [facility] Start: 02-25-2025 Evaluation and management of inpatient CATARINA SANFORD [facility] Start: 02-24-2025 Evaluation and management of inpatient EDNA MAURICE [facility] Start: 02-23-2025 Evaluation and management of inpatient RUTH [facility] Start: 02-22-2025 Evaluation and management of inpatient RUTH [facility] Start: 02-22-2025 Evaluation and management of inpatient RUTH [facility] Start: 02-22-2025 Evaluation and management of inpatient IMELDA STACK [facility] Start: 02-21-2025 Evaluation and management of inpatient IMELDA CORCORAN [facility] Start: 02-19-2025 Evaluation and management of inpatient SARAH [place] [facility] Start: 02-18-2025 [facility]: 02-18-2025 End: 03-05-2025 Evaluation and management of inpatient SIMBA STANTON [facility] Start: 01-28-2025 ambulatory LAUREANO LINDER Facilit y:[facility] Start: 10-29-2024 End: 10-29-2024 ambulatory LAUREANO LINDER Facility:[facility] Start: 06-01-2024 End: 06-01-2024 ambulatory EHAB KULDEEP [facility] Start: 04-30-2024 End: 04-30-2024 ambulatory DO LAUREANO LINDER Facility:[facility] Start: 05-14-2022 Encounter for genera l adult medical examination without abnormal findings DR LAUREANO LINDER [facility] Start: 05-09-2022 End: 05-10-[address] LAUREANO LINDER Facility:[facility] Start: 05-09-2022 End: 05-10-2022 Encounter for general adult medical examination without abnormal findings DR LAUREANO LINDER Facility:[facility] Start: 05-30-2021 End: 05-31-[address] LAUREANO LINDER Facility:[facility] Start: 05-21-2021 End: 05-21-[address] KINGSLEY BARNETT Facility:[facility] Procedures Date Procedure Procedure Detail Performing Clinician Start: 03-10-2025 Follow-up visit IMELDA HAQUE Start: 06-01-2024 Follow-up visit IMELDA HAQUE Start: 05-09-[address] NELIA BARNETT Comment on above: Performed By: #### P SAD #### [facility] [address] [place] [address] Dr. Anny Corcoran Payers Date Payer Category Payer Unknown [id number] 2012 Unknown [id number] 1965 Unknown [id number] 2.16.84 [id number] 1965 Unknown [id number] 2.16.84 [id number] 1966 Unknown [id number] 2.16.84 [id number] 1966 Unknown [id number] 2.16.8 [id number] 1966 Unknown [id number] 2.16.8 [id number] 1966 Unknown [id number] 2.16.8 [id number] 1966 Unknown [id number] 2.16.8 [id number] Clinical Notes 06-01-2024 to 04-05-2025 Note Date & Type Note Facility 04-05-2025 Note Pt was informed of r esult and informed patient of advice regarding increase potassium in diet. Pt states he recently started eating bananas again. Pt was informed to repeat lab and order was faxed to [facility] at . [facility] 03-23-2025 Note [facility] 03-22-2025 Note [facility] 03-18-2025 Note [facility] 03-11-2025 Note [facility] 03-10-2025 Note [facility] 03-05-2025 Note [facility] 03-05-2025 Note Discharge Planning As per RUCC RN patient is agreeable to [facility]. Referrals made through [facility]. [facility] is able to accept[facility] Added to AVS. [facility] 03-05-2025 Note [facility] 03-05-2025 Note [facility] 03-04-2025 Note [facility] 03-04-2025 Note [facility] 03-04-2025 Note [facility] 03-04-2025 Note [facility] 03-03-2025 Note [facility] 03-03-2025 Note [facility] 03-03-2025 Note [facility] 03-03-2025 Note [facility] 03-03-2025 Note [facility] 03-03-2025 Note [facility] 03-03-2025 Note [facility] 03-02-2025 Note [facility] 03-02-2025 Note [facility] 03-02-2025 Note [facility] 03-01-2025 Note [facility] 03-01-2025 Note [facility] 03-01-2025 Note [facility] 03-01-2025 Note [facility] 02-28-2025 Note [facility] 02-27-2025 Note [facility] 02-27-2025 Note [facility] 02-26-2025 Note [facility] 02-26-2025 Note [facility] 02-26-2025 Note [facility] 02-26-2025 Note [facility] 02-26-2025 Note [facility] 02-26-2025 Note [facility] 02-25-2025 Note [facility] 02-25-2025 Note [facility] 02-25-2025 Note [facility] 02-25-2025 Note [facility] 02-25-2025 Note [facility] 02-25-2025 Note [facility] 02-25-2025 Note [facility] 02-25-2025 Note [facility] 02-24-2025 Note [facility] 02-24-2025 Note [facility] 02-24-2025 Note [facility] 02-24-2025 Note [facility] 02-24-2025 Note [facility] 02-24-2025 Note [facility] 02-23-2025 Note [facility] 02-23-2025 Note [facility] 02-23-2025 Note [facility] 02-23-2025 Note [facility] 02-22-2025 Note [facility] 02-22-2025 Note [facility] 02-22-2025 Note - Seen on abdominal rectus abdominal muscles on CT abd/pelvis 02/21 - L noted to be bigger than R - Consider holding heparin - Hgb has been stable [facility] 02-22-2025 Note - Stable [facility] 02-22-2025 Note - Stable, Patient cu rrently not using CPAP [facility] 02-22-2025 Note [facility] 02-22-2025 Note - Valsartan and spir onolactone held - Blood pressure has been rather hypotensive [facility] 02-22-2025 Note [facility] 02-22-2025 Note [facility] 02-22-2025 Note [facility] 02-22-2025 Note [facility] 02-21-2025 Note [facility] 02-21-2025 Note [facility] 02-21-2025 Note - Continue current v alsartan, spironolactone and Toprol-XL for GDMT - Blood pressure has been within acceptable range on 02/[address] [facility] 02-21-2025 Note [facility] 02-21-2025 Note [facility] 02-21-2025 Note - Stable [facility] 02-21-2025 Note - Stable, Patient cu rrently not using CPAP [facility] 02-21-2025 Note [facility] 02-20-2025 Note [facility] 02-20-2025 Note - Stable [facility] 02-20-2025 Note - Stable,Patient cur rently not using CPAP [facility] 02-20-2025 Note - Continue current l isinopril and Toprol-XL [facility] 02-20-2025 Note [facility] 02-20-2025 Note [facility] 02-20-2025 Note [facility] 02-19-2025 Note - Stable [facility] 02-19-2025 Note - Stable,Patient cur rently not using CPAP [facility] 02-19-2025 Note - Continue current l isinopril and Toprol-XL [facility] 02-19-2025 Note [facility] 02-19-2025 Note [facility] 02-19-2025 Note [facility] 02-19-2025 Note [facility] 02-19-2025 Note A/p reviewed and agreed [facility] 02-18-2025 Note - Cardiology consult [facility] 02-18-2025 Note - Stable [facility] 02-18-2025 Note - Continue labetalol [facility] 02-18-2025 Note [facility] 02-18-2025 Note - Small pericardial effusion noted on echocardiogram, cardiology consult [facility] 02-18-2025 Note [facility] 06-01-2024 Note [facility] Summary Purpose Family History No Family [...] content) DATE CREATED AUTHOR 05/14/2022 [facility] pital DATE CREATED AUTHOR AUTHOR'S ORGANIZ ATION 03/17/2025 [facility] DATE CREATED AUTHOR AUTHOR'S ORGANIZ ATION 04/05/2025 [facility] FOR RECORDS PERTAINING TO PATIENTS WHO [...] BE BASED ON THE PRIMARY CLINICAL RECORDS. [facility]. provides no warranty or guarantee of the accuracy or completeness of information in this document.
[2025-04-08 09:49] LABS: Anion Gap 11.9; Blood Urea Nitrogen 18.0 mg/dL (7.0-18.0); Calcium 9.0 mg/dL (8.5-10.1); Carbon Dioxide 31.0 mmol/L (21.0-32.0); Chloride 101 mmol/L (98-107); Estimated GFR (African America >60 (>=60 mL/min/1.73m^2); Estimated GFR (Non-African Ame >60 (>=60 mL/min/1.73m^2); Glucose 84 mg/dL (74-106); Potassium 3.9 mmol/L (3.5-5.1); Sodium 140 mmol/L (136-145)
== END 2025-04-08 08:59 | disposition home or self-care (01) ==
LOC: LAB 09:00
PROVIDERS: Family Provider Internal Medicine Interventional Cardiology; PCP Family Medicine
DX: E87.6 Hypokalemia (principal)
CPT/HCPCS: 36415; 80048

== ENCOUNTER 2025-05-06 07:44 | Outpatient (OUT) | payer OTHER, SELFPAY ==
--- OUTSIDE RECORDS SUMMARY | 2025-05-06 07:46 | XMS_ITS | Clinical Summary ---
Author Organization [facility] Address [facility] [id number] [address] [place] [address] Care Team Providers Care Soil Checker Name Role Phone Jalen Echeverria DO Primary Care Provider [phone] Social History Tobacco UseTypesPacks/DayYears UsedDateSmoking Tobacco: Never AssessedChildcare AnswerDate KipiwmgfRvhbyirttIuwrnvn15/12/2019EmploymentAnswerDate Recorded PinjnazhusVlhralp76/12/2019Purpose - LifeAnswerDate RecordedPurpose and direction in sjxrRdgievz73/11/2021Sex and Gender InformationValueDate Recorded Sex Assigned at BirthNot on fileLegal CisPmqf5802/03/2015 11:40 AM EDTGender IdentityNot on fileSexual OrientationNot on file Plan of Treatment Not on file Medical Devices Not on file Insurance Care Teams Team MemberRelationshipSpecialtyStart DateEnd Date Jalen Echeverria DO PCP - GeneralFamily Lctgyhdc33/18/19
--- OUTSIDE RECORDS SUMMARY | 2025-05-06 07:46 | XMS_ITS | Encounter Summary ---
Author Organization [facility] Address [address] [place] [address] Care Team Providers Care Consumer Experience Consultant Name Role Phone Jalen Echeverria DO Primary Care Provider [phone] Encounter Details DateTypeDepartmentCare Team (Latest Contact Info)Pdtvfoktdey05/05/2025Telephone [facility] [address] [place] [address] Amber Garcia MA Social History Tobacco UseTypesPacks/DayYears UsedDateSmoking Tobacco: NeverSmokeless Tobacco: NeverAlcohol UseStandard Drinks/WeekCommentsYes0 (1 standard drink = 0.6 oz pure alcohol)occasionalAHC UtilitiesAnswerDate RecordedIn the past 12 months has the electric, gas, oil, or water [employer] threatened to shut off services in your home?No02/18/2025Humiliation, Afraid, Rape, and Kick questionnaireAnswerDate RecordedWithin the last year, have you been afraid of your partner or ex-partner?No02/18/2025Emotionally AbusedNot on file02/18/2025Physically Abused Not on file02/18/2025Sexually AbusedNot on file02/18/2025Overall Financial Resource Strain (CARDIA)AnswerDate RecordedHow hard is it for you to pay for the very basics like food, housing, medical care, and heating?Not hard at all 02/18/2025PHQ-2AnswerDate RecordedPatient Health Questionnaire-2 Score0 03/18/2025UT Safety & EnvironmentAnswerDate RecordedFear of Current or Ex-PartnerNot on file08/22/2023Emotionally AbusedNot on file08/22/2023hysically AbusedNot on file08/22/2023Sexually AbusedNot on file08/22/2023hysically or Sexually AbusedNot on file08/22/2023TransportationAnswerDate RecordedIn the past 12 months, has lack of transportation kept you from medical appointments or from getting medications?No02/18/2025Lack of Transportation (Non-Medical)Not on file 02/18/2025Housing Stability Vital SignAnswerDate RecordedIn the last 12 months, was there a time when you were not able to pay the mortgage or rent on time?No 02/18/2025In the past 12 months, how many times have you moved where you were living?t any time in the past 12 months, were you homeless or living in a nursing home (including now)?No02/18/2025Hunger Vital SignAnswerDate Recorded Within the past 12 months, you worried that your food would run out before you got the money to buymore.Never true02/18/2025Ran Out of Food in the Last YearNot on file02/18/2025Sex and Gender InformationValueDate RecordedSex Assigned at LnlveAryc42/22/2025 9:32 AM EDTLegal PjvDvls6612/27/2021 10:20 PM EDTGender KdtybrmjHcgx79/22/2025 9:32 AM EDTSexual OrientationDon't know02/19/2025 10:20 AM EDTdocumented as of this encounter Plan of Treatment DateTypeDepartmentCare Team (Latest Contact Info)Fxfuwokmaus79/18/2025 1:40 PM ESTOffice Visit [facility] [address] [place] [address] Mary Rosales CNP [address] [place] [address] 05/21/2025Hospital Encounter [facility] [address] [place] [address] Prabhu Chavez MD [address] [place] [address] NamePriorityAssociated DiagnosesDate/TimeAtrial Fib Ablation w/ PVI Paroxysmal atrial fibrillation (CMS/HCC) documented as of this encounter Visit Diagnoses Not on filedocumented in this encounter Care Teams Team MemberRelationshipSpecialtyStart DateEnd Jalen Echeverria DO [address] [place] [address] PCP - Nioisaa86/3/22documented as of this encounter
--- OUTSIDE RECORDS SUMMARY | 2025-05-06 07:46 | XMS_ITS | Clinical Summary ---
Author Organization The [facility] Address [address] [place] [address] Care Team Providers Care Snap Attacher Name Role Phone Jalen Linder DO Primary Care Provider [phone] Allergies No known active allergies Medications MedicationSigDispense QuantityRefillsLast FilledStart DateEnd DateStatus ferrous sulfate 325 (65 Fe) MG tablet Take 65 mg by mouth in the morning and at bedtime.Active bisacodyl (Dulcolax) 5 mg EC tablet Indications:S/P gastric bypassTake 1 tablet (5 mg) by mouth in the morning for 91 doses. Do not crush, chew, or split. 30 tablet 5Active tamsulosin (Flomax) 0.4 mg 24 hr capsule Indications:Benign prostatic hyperplasia, unspecified whether lower urinary tract symptoms presentTake 1 capsule (0.4 mg) by mouth in the morning for 89 doses. 30 capsule /5Active amiodarone (Pacerone) 200 mg tablet Indications:Paroxysmal atrial fibrillation (CMS/HCC)Take 2 tablets (400 mg) by mouth two times daily for 14 days, THEN 1 tablet (200 mg) in the morning. 146 tablet /6Active valsartan (Diovan) 40 mg tablet Indications:Acute systolic CHF (congestive heart failure) (CMS/HCC)Take 0.5 tablets (20 mg) by mouth in the morning. 45 tablet 6Active furosemide (Lasix) 20 mg tablet Indications:Edema, unspecified typeTake 3 tablets (60 mg) by mouth in the morning. 270 tablet 6Active spironolactone (Aldactone) 25 mg tablet Indications:Acute systolic CHF (congestive heart failure) (CMS/HCC)Take 0.5 tablets (12.5 mg) by mouth in the morning. 45 tablet ctive apixaban (Eliquis) 5 mg tablet Indications:Acute systolic CHF (congestive heart failure) (CMS/HCC)Take 1 tablet (5 mg) by mouth two times daily. 180 tablet ctive metoprolol succinate XL (Toprol-XL) 25 mg 24 hr tablet Indications:Acute systolic CHF (congestive heart failure) (CMS/HCC)Take 3 tablets (75 mg) by mouth in the morning. Do not crush or chew. 270 tablet ctive Active Problems ProblemNoted DateDiagnosed DateChronic idiopathic ksmsluulabom48/23/2025Urinary /23/2025Hematoma of rectus nbyvxs1403/22/20255399Smucxylnwkutbk87/22/2025 Chronic systolic heart yeeajyd4303/10/2025LVH (left ventricular hypertrophy) 03/10/2025oronary artery disease involving nondalton coronary artery of nondalton heart without angina xlqzihok68/10/2025enign hypertensive heart disease with heart octtsma5803/10/2025Orthostatic kayvyzovzqh25/10/2025Syncope and collapse 03/10/2025-fib02/22/20255983Onwizvqf36/25/2025 Assessment & Plan (02/22/2025 9:46 AM EDT): - Seen on abdominal rectus abdominal muscles on CT abd/pelvis 02/21 - L noted to be bigger than R - Consider holding heparin - Hgb has been stable Atrial fibrillation with RVR02/21/2025 Assessment & Plan (02/22/2025 9:44 AM EDT): [...] -TSH WNL Acute systolic CHF (congestive heart failure)02/18/2025 Assessment & Plan (02/22/2025 9:44 AM EDT): - unable to assess NYHA class - BNP over 5000 at outside facility was 491 at [facility] -CXR showed cardiomegaly with vascular congestion and CT of the abdomen showed anasarca and ascites -Echocardiogram was completed at [facility] which showed an EF of 15 to [...] 5000 at outside facility was 491 at [facility] -CXR showed cardiomegaly with vascular congestion and CT of the abdomen showed anasarca and ascites -Echocardiogram was completed at [facility] which showed an EF of 15 to [...] 5000 at outside facility was 491 at [facility] -CXR showed cardiomegaly with vascular congestion and CT of the abdomen showed anasarca and ascites -Echocardiogram was completed today at [facility] which showed an EF of 15 to 20%, moderate pulmonaryhypertension, moderate mitral valve regurgitation and small pericardial effusion -Begin Lasix 40 mg IV twice daily -Strict intake and output, daily weights - continue lisinopril, Toprol-XL and Aldactone 25 mg Assessment & Plan (02/19/2025 2:43 PM EDT): - unable to assess NYHA class - BNP over 5000 at outside facility was 491 at [facility] -CXR showed cardiomegaly with vascular congestion and CT of the abdomen showed anasarca and ascites -Echocardiogram was completed today at [facility] which showed an EF of 15 to [...] 5000 at outside facility was 491 at [facility] -CXR showed cardiomegaly with vascular congestion and CT of the abdomen showed anasarca and ascites -Echocardiogram was completed today at [facility] which showed an EF of 15 to 20%, moderate pulmonaryhypertension, moderate mitral valve regurgitation and small pericardial effusion -Begin Lasix 40 mg IV twice daily -Strict intake and output, daily weights -Will make n.p.o. for possible right heart cath -Troponin mildly elevated, likely type II, will continue to trend New onset a-fib02/18/2025 Assessment & Plan (02/22/2025 9:44 AM EDT): [...] deferred due to hypotension and clinical instability -[facility] Assessment & Plan (02/21/2025 10:16 [...] digoxin, BERNARDINO cardioversion once euvolemic. Likely 02/21 -[facility] Assessment & Plan (02/20/2025 12:57 PM EDT): - Patient found to be in new onset atrial fibrillation at outside hospital, was initially on Cardizem drip but was discontinued due to low blood pressure -Patient was also initially given a dose of Xarelto at outside hospital, will transition to heparininfusion -Continue Toprol-XL and loading dose digoxin, BERNARDINO cardioversion once euvolemic -[facility] Assessment & Plan (02/19/2025 2:43 PM EDT): - Patient found to be in new onset atrial fibrillation at outside hospital, was initially on Cardizem drip but was discontinued due to low blood pressure -Patient was also initially given a dose of Xarelto at outside hospital, will transition to heparininfusion -Continue Toprol-XL and loading dose digoxin, possible BERNARDINO cardioversion. - -[facility] Assessment & Plan (02/18/2025 11:00 PM EDT): [...] IV loading dose, electrolytes within normal limits -[facility] S/P gastric oowdip2802/18/2025 Assessment & Plan (02/22/2025 9:46 AM EDT): - Stable Assessment & Plan (02/21/2025 10:16 AM EDT): - Stable Assessment & Plan (02/20/2025 12:57 PM EDT): - Stable Assessment & Plan (02/19/2025 2:43 PM EDT): - Stable Assessment & Plan (02/18/2025 11:00 PM EDT): - Stable Pericardial xutcdyuo87/21/2025 Assessment & Plan (02/18/2025 11:00 PM EDT): - Small pericardial effusion noted on echocardiogram, cardiology consult Moderate mitral valve gvuyyefylrysk07/21/2025 Assessment & Plan (02/18/2025 11:00 PM EDT): - Cardiology consult Angina pectoris, fnbacijt93/21/2025scending aorta lvfyiineob88/05/2022Obesity 09/10/2018Gout05/18/2016Primary /18/2016 Assessment & Plan (02/22/2025 9:44 AM EDT): [...] EDT): - Continue labetalol ENA (obstructive sleep apnea)05/18/2016 Assessment & Plan (02/22/2025 9:44 AM EDT): [...] (02/18/2025 11:00 PM EDT): - Stable Encounters DateTypeDepartmentCare WkiiDzyuwzzmqhl84/05/2025Telephone [facility] [address] [place] [place] [address] Amber Garcia MA 04/01/2025Results Follow-Up [facility] [address] [place] [phone] Haily Botello, HARINI CBC and differential, Comprehensive metabolic panel03/31/2025Refill [facility] [address] [place] [place] [address] Amber Garcia MA Acute systolic CHF (congestive heart failure) (CMS/HCC); Edema, unspecified type03/31/2025Orders Only [facility] [address] [place] [phone] Haily Botello CNP 03/24/2025Telephone [facility] [address] [place] [facility] [place] [address] Amber Garcia MA 03/23/2025 1:00 PM EDTFollow-Up [facility] [address] [place] [facility] [place] [address] Prabhu Chavez MD Paroxysmal atrial fibrillation (CMS/HCC) (Primary Dx)03/23/2025Orders Only [facility] [address] [place] [address] Amber Garcia MA Paroxysmal atrial fibrillation (CMS/HCC) (Primary Dx)03/23/2025Telephone [facility] [address] [place] [place] [address] Amber Garcia MA 03/23/2025Orders Only [facility] [address] [place] [facility] [place] [address] Amber Garcia MA Paroxysmal atrial fibrillation (CMS/HCC) (Primary Dx)03/22/2025 1:30 PM EDT Follow-Up [facility] Vascular and Endovascular Surgery [address] [place] [phone] Jeni Murray NP Hematoma of rectus sheath, subsequent encounter (Primary Dx); Anticoagulated; New onset a-fib (CMS/HCC)03/22/2025Orders Only [facility] [address] [place] [phone] Marco Michelle MD 03/18/2025 10:30 AM EDTFollow-Up [facility] [address] [place] [phone] Haily Botello, HARINI Gross hematuria (Primary Dx); Bilateral hydronephrosis; Acute kidney injury; Anemia, unspecified type03/11/2025Telephone [facility] [address] [place] [facility] [place] [address] Amber Garcia MA 03/11/2025Orders Only [facility] [address] [place] [address] Cinthya Guzman MA Syncope and collapse (Primary Dx)03/10/2025 3:20 PM EDTOffice Visit [facility] [address] [place] [address] Mary Rosales CNP Paroxysmal atrial fibrillation (CMS/HCC) (Primary Dx); Acute systolic CHF (congestive heart failure) (CMS/HCC); Chronic systolic heart failure (CMS/HCC); Blood loss anemia; LVH (left ventricular hypertrophy); Coronary artery disease involving nondalton coronary artery of nondalton heart without angina pectoris; Benign hypertensive heart disease with heart failure (CMS/HCC); Orthostatic hypotension; Syncope and /08/2025Telephone [facility] [address] [place] [address] Ching Lopez RN HF post discharge call and inpt survey sent.03/03/2025 9:30 AM EDT - 03/03/2025 10:30 AM EDTSurgery [facility] [address] [place] [address] Hugo Rojas MD Oecqykoldhlwv49/21/2025 5:46 PM EDT - 03/05/2025 5:57 PM EDTHospital Encounter [facility] [address] [place] [address] Gabriele Nick MD Saad, Hani, MD Chang, Kyu Chul, MD Safi, Fadi, MD A-fib (CMS/HCC) (Primary Dx); Acute systolic CHF (congestive heart failure) (CMS/HCC); Chronic HFrEF (heart failure with reduced ejection fraction) (CMS/HCC); Paroxysmal atrial fibrillation (CMS/HCC); Atrial fibrillation, unspecified type (CMS/HCC); Angina pectoris, unstable (CMS/HCC); Edema, unspecified type; S/P gastric bypass; Benign prostatic hyperplasia, unspecified whether lower urinary tract symptoms present Discharge Disposition: [place]-Health Care [facility] [place] ([place])02/18/2025Travelfrom Last 3 Months Immunizations ImmunizationAdministration DatesNext DueInfluenza, injectable, quadrivalent 06/01/2016Pneumococcal Conjugate PCV 1303Unspecified Sars-Cov-2 Eapvzipafam97/22/2021,09/22/2020 Family History Medical HistoryRelationNameCommentsCancerFatherCoronary artery diseaseFather HypertensionFatherHypertensionMotherRelationNameStatusCommentsFatherDeceased MotherDeceased Social History Tobacco UseTypesPacks/DayYears UsedDateSmoking Tobacco: NeverSmokeless Tobacco: Never Tobacco Cessation:Counseling Given: Not Answered Alcohol UseStandard Drinks/WeekCommentsYes0 (1 standard drink = 0.6 oz pure alcohol)occasionalAHC UtilitiesAnswerDate RecordedIn the past 12 months has the electric, gas, oil, or water company threatened [...] were you homeless or living in a penitentiary (including now)?No02/18/2025Hunger Vital SignAnswerDate Recorded Within the past 12 months, you worried that your food would run out before you got the money to buymore.Never true02/18/2025Ran Out of Food in the Last YearNot on file02/18/2025Sex and Gender InformationValueDate RecordedSex Assigned at KfpuxOgyc38/22/2025 9:32 AM EDTLegal KknIehx1712/27/2021 10:20 PM EDTGender SfywgilrHkhq33/22/2025 9:32 AM EDTSexual OrientationDon't know02/19/2025 10:20 AM EDT Last Filed Vital Signs Vital SignReadingTime TakenCommentsBlood Ikrzeqgb10/67003/23/2025 12:54 PM EDT Wzqvl5252/23/2025 12:54 PM CKBXwnpgvnxypk12.4 ??C (97.5 ??F)03/18/2025 10:26 AM EDTRespiratory Ehkv209403/22/2025 1:28 PM EDTOxygen Bkyxfkcogk39%03/23/2025 12:54 PM EDTInhaled Oxygen Concentration--Naodoe76.9 kg (218 lb)03/23/2025 12:54 PM QLCEhvqac667.7 cm (5' 8 )03/23/2025 12:54 PM EDTBody Mass Index33.15003/23/2025 12:54 PM EDT Plan of Treatment DateTypeDepartmentCare Team (Latest Contact Info)Npuhkckniit84/18/2025 1:40 PM ESTOffice Visit [facility] [address] [place] [address] Mary Rosales, HARINI [address] [place] [address] 05/21/2025Hospital Encounter [facility] [address] [place] [address] Prabhu Chavez MD [address] [place] [address] NamePriorityAssociated DiagnosesDate/TimeAtrial Fib Ablation w/ PVI Paroxysmal atrial fibrillation (CMS/HCC) Health MaintenanceDue DateLast DoneCommentsCT Pyhjlumqixce93/05/1967Colonoscopy 1966Colorectal Cancer Rrmvtbfbp49/05/1967FIT-DNA1966FIT1966 FOBT1966 2825Wyrylqrjkfnuy36/05/1967Hepatitis B Vaccines (1 of 3 - 19+ 3-dose series)1985Adult Usbyilg8509/02/1988Zoster Vaccines (1 of 2)2016 Pneumococcal Vaccine: Pediatrics (0 to 5 Years) and At-Risk Patients (6 to 64 Years) (2 of 2 - PPSV23, PCV20, or PCV21)COVID-19 Vaccine ( - season)504/, 10/20/2020, 09/22/2020, Additional history existsInfluenza Vaccine (#1)/08/2015Depression Screening /HIB VaccinesAged OutNo longer eligible based on patient's age to complete this topicHPV VaccinesAged OutNo longer eligible based on patient's age to complete this topicIPV VaccinesAged OutNo longer eligible based on patient's age to complete this topicMeningococcal B VaccineAged OutNo longer eligible based on patient's age to complete this topicMeningococcal VaccineAged OutNo longer eligible based on patient's age to complete this topicRotavirus VaccinesAged OutNo longer eligible based on patient's age to complete this topic Procedures Procedure NamePriorityDate/TimeAssociated DiagnosisCommentsCOMPREHENSIVE METABOLIC IHNHEKcesqly83/25/2025 10:38 AM EDT CBC AND KDDSQXZXJFXZIhxcjbw53/25/2025 10:38 AM EDT ECG 12 LEAD UNIT CRIBOIAPBXgxxpyw73/23/2025 1:23 PM EDT Paroxysmal atrial fibrillation (CMS/HCC) CBC AND PXAUORLUQJBYLelmeee16/12/2025 8:36 AM EDTCOMPREHENSIVE METABOLIC PANEL Koqveka0703/12/2025 8:36 AM EDTECG 12 LEAD UNIT ANIDRKCRFLiczioo30/10/2025 3:24 PM EDT Paroxysmal atrial fibrillation (CMS/HCC) CBCPending Oxneohwcs54/05/2025 5:00 AM EDT PHOSPHORUSPending Hckygobej41/05/2025 5:00 AM EDT MAGNESIUMPending Rdmvlfmfq03/05/2025 5:00 AM EDT COMPREHENSIVE METABOLIC PANELPending Znxhzzlap49/05/2025 5:00 AM EDT CTA HEART CORONARY W IV CONTRAST W OR WO FVSDBVpwzqkr99/04/2025 3:29 PM EDT LAVENDER IZLYpicfdy73/04/2025 4:48 AM EDT LIGHT GREEN HJLJoifjwn00/04/2025 4:48 AM EDT EXTRA ESNYIGuelxmk18/04/2025 4:48 AM EDT ANTI-FACTOR XAPending Arfzzjdsw24/04/2025 4:41 AM EDT ECG 12-ACIBYMOK33/04/2025 4:06 AM EDT CBCPending Lfwnoqgsx62/04/2025 1:08 AM EDT PHOSPHORUSPending Vyhweocyf52/04/2025 1:08 AM EDT MAGNESIUMPending Qsowhulrz96/04/2025 1:08 AM EDT COMPREHENSIVE METABOLIC PANELPending Qwbrvydls72/04/2025 1:08 AM EDT ANTI-FACTOR XAPending Bojrqxrma84/04/2025 1:08 AM EDT ANTI-FACTOR XAPending Uoormrxgz16/03/2025 7:54 PM EDT PLATELET COUNTSTAT Add-on03/03/2025 12:54 PM EDT SDIECHYP79/03/2025 12:54 PM EDT ECG 12-OIESBzxdtao03/03/2025 10:36 AM EDT TRANSESOPHAGEAL ECHO (BERNARDINO) W/ LIMITED DOPPLER AND COLOR KKXLOpmikyn57/03/2025 10:09 AM EDT CQUANTDESVZNHTfyfgqm23/03/2025 10:01 AM EDT A-fib (CMS/HCC) ECG 12-LAWJUpybsgu76/03/2025 9:26 AM EDT CBCPending Largqnsyt93/03/2025 3:46 AM EDT DIGOXIN LEVELPending Vreuwiial79/03/2025 3:46 AM EDT PHOSPHORUSPending Pphyvsijz23/03/2025 3:46 AM EDT MAGNESIUMPending Upvhzdtku60/03/2025 3:46 AM EDT COMPREHENSIVE METABOLIC PANELPending Stbhqcmao84/03/2025 3:46 AM EDT ANTI-FACTOR XAPending Kaxqokktn73/03/2025 3:46 AM EDT ANTI-FACTOR XAPending Mdfpdarqq55/02/2025 9:21 PM EDT URINALYSISPending Wfwztuegv66/02/2025 2:48 PM EDT FEPPGBPM27/02/2025 2:09 PM EDT LIMITED ECHO (TTE) W/ LIMITED DOPPLER, COLOR FLOW AND IMAGING AGENTRoutine 03/02/2025 12:33 PM EDT PLATELET COUNTSTAT Add-on03/02/2025 4:26 AM EDT LAVENDER BESZqchbiu82/02/2025 4:26 AM EDT EXTRA PHNLCPkfijym06/02/2025 4:26 AM EDT PHOSPHORUSPending Vjawlhuxc37/02/2025 4:26 AM EDT MAGNESIUMPending Rhneagfzc19/02/2025 4:26 AM EDT COMPREHENSIVE METABOLIC PANELPending Waeajqrtb53/02/2025 4:26 AM EDT DIGOXIN LEVELAdd-On03/01/2025 5:12 AM EDT LAVENDER AFMOrsbnpt96/01/2025 5:12 AM EDT EXTRA TYCCHZroofyg99/01/2025 5:12 AM EDT PHOSPHORUSPending Owvajizvm49/01/2025 5:12 AM EDT MAGNESIUMPending Mwiwelusn06/01/2025 5:12 AM EDT COMPREHENSIVE METABOLIC PANELPending Vadsebiao60/01/2025 5:12 AM EDT PHOSPHORUSPending Xjovyuenf32/31/2025 3:42 AM EDT MAGNESIUMPending Bgklssxvw27/31/2025 3:42 AM EDT COMPREHENSIVE METABOLIC PANELPending Hrlyefusf85/31/2025 3:42 AM EDT CBCPending Puwqvfygn55/31/2025 3:42 AM EDT CBCPending Aimgoojha25/30/2025 11:38 PM EDT CBCPending Qyhuujptv50/30/2025 6:49 PM EDT CBCPending Isfzpwvrq03/30/2025 12:13 PM EDT PHOSPHORUSPending Sikndlkjm83/30/2025 5:58 AM EDT MAGNESIUMPending Axnyzmroq09/30/2025 5:58 AM EDT COMPREHENSIVE METABOLIC PANELPending Qqqkwrywn74/30/2025 5:58 AM EDT CBCPending Ekeaneyjc59/30/2025 5:58 AM EDT CBCPending Orwvlakjs35/29/2025 11:21 PM EDT CBCPending Fhttjkxlb98/29/2025 6:18 PM EDT RETICULOCYTE PANELAdd-On02/26/2025 11:48 AM EDT CBCPending Pnjakdtep90/29/2025 11:48 AM EDT FOLATEAdd-On02/26/2025 5:13 AM EDT VITAMIN H59Oud-Cy90/29/2025 5:13 AM EDT FERRITINAdd-On02/26/2025 5:13 AM EDT IRON AND TIBCAdd-On02/26/2025 5:13 AM EDT PHOSPHORUSPending Wrovwsfom86/29/2025 5:13 AM EDT MAGNESIUMPending Ljffizqnc38/29/2025 5:13 AM EDT COMPREHENSIVE METABOLIC PANELPending Zvwfvuqbc61/29/2025 5:13 AM EDT CBCPending Dmbcmxbfp70/29/2025 5:13 AM EDT CBCPending Dhhcahwpr81/28/2025 11:56 PM EDT CBCPending Ysvzkqcuw77/28/2025 6:08 PM EDT CBCPending Tttmpxeuz60/28/2025 1:29 PM EDT CTA ABDOMEN PELVIS W IV KDXCJBBAWchpjtw49/28/2025 10:49 AM EDT TRANSFUSE RED BLOOD YXFODUwkxnxw49/28/2025 10:10 AM EDTHEMOGLOBIN AND HEMATOCRIT, BLOODPending Ujnfpdmzo23/28/2025 9:04 AM EDT DIGOXIN LEVELPending Qvohlyeiy86/28/2025 5:06 AM EDT PHOSPHORUSPending Njzylqkpo87/28/2025 5:06 AM EDT MAGNESIUMPending Punotwiyt45/28/2025 5:06 AM EDT COMPREHENSIVE METABOLIC PANELPending Fbqoglcsg74/28/2025 5:06 AM EDT CBCPending Dishfhdvh07/28/2025 5:06 AM EDT CBCPending Wgggbhknz35/28/2025 12:06 AM EDT CBCPending Rcddzbxbb09/27/2025 6:37 PM EDT CBCPending Otnbjcgff92/27/2025 12:43 PM EDT POTASSIUM, URINE, RANDOMPending Nkkcwhkdu40/27/2025 10:52 AM EDT SODIUM, URINE, RANDOMPending Dnppuqrno12/27/2025 10:52 AM EDT CHLORIDE, URINE, RANDOMPending Zmnbmpnkb23/27/2025 10:52 AM EDT CREATININE, URINE, RANDOMPending Zbqlppshx59/27/2025 10:52 AM EDT OSMOLALITY, URINEPending Vohuaexbc58/27/2025 10:52 AM EDT URINALYSIS WITH MICROSCOPICPending Xukqbozhu75/27/2025 10:52 AM EDT US RENAL HDGORLBSYXFD71/27/2025 10:09 AM EDT PHOSPHORUSPending Nzqlzhryg24/27/2025 3:21 AM EDT MAGNESIUMPending Jfigjhwmi17/27/2025 3:21 AM EDT COMPREHENSIVE METABOLIC PANELPending Nvpdnrgzv61/27/2025 3:21 AM EDT CBCPending Irmetmesa79/27/2025 3:21 AM EDT CBCPending Qrfkqcndy81/26/2025 11:50 PM EDT CBCPending Hbadccqcq65/26/2025 6:30 PM EDT BLOOD ZHYDHKGNMZY60/26/2025 12:04 PM EDT BLOOD JNSALJYBQZL46/26/2025 12:03 PM EDT LACTIC ACID WITH 4 HOUR REFLEXPending Hxpjyovod06/26/2025 11:59 AM EDT CBCPending Sgmxtggeh61/26/2025 11:15 AM EDT ECG 12-BOAOIBTB11/26/2025 9:48 AM EDT PHOSPHORUSPending Qmvzvijiv08/26/2025 5:33 AM EDT MAGNESIUMPending Qddszljca39/26/2025 5:33 AM EDT COMPREHENSIVE METABOLIC PANELPending Bonxqdiyg94/26/2025 5:33 AM EDT CBCPending Rgqzdtzpi33/26/2025 5:33 AM EDT BASIC METABOLIC XFQBZYiptyvm38/26/2025 12:07 AM EDT YESSzims52/26/2025 12:07 AM EDT XR CHEST 1 FTIDGLMF40/25/2025 7:06 PM EDT TNMRhrcl09/25/2025 6:31 PM EDT URINALYSIS MICROSCOPIC WITH REFLEX FBBPQVIHemqgvp65/25/2025 4:15 PM EDT URINALYSIS WITH REFLEX LYIIELNPvlcxdd37/25/2025 4:[address] CHEST W IV QGXIAHOIYtcdmji44/25/2025 1:[address] ABDOMEN PELVIS W IV QLGOXYIVEOWV81/25/2025 1:01 PM EDT PROTIME-INRSTAT Add-on02/22/2025 11:49 AM EDT RED GVGRbwssgm20/25/2025 11:49 AM EDT EXTRA HJBUPOweoktj05/25/2025 11:49 AM EDT COMPREHENSIVE METABOLIC HPMMEDljdlat20/25/2025 11:49 AM EDT TZROjrwd34/25/2025 11:49 AM EDT ANTI-FACTOR LGMrqiagj76/25/2025 11:49 AM EDT POCT GLUCOSE METER UNSOLICITED SDDEBVHUhmectc80/25/2025 11:34 AM EDT LACTIC ACID WITH 4 HOUR ROJFDVTMDG88/25/2025 9:47 AM EDT BLOOD URVFUFVFEOX50/25/2025 9:46 AM EDT BLOOD KBPFYUPFvkmuyu56/25/2025 9:46 AM EDT PREPARE SJTAfodyrm80/25/2025 7:31 AM EDT ECG 12-AWQAIVWK72/25/2025 7:16 AM EDT HEMOGLOBIN AND HEMATOCRIT, YFZQWMHSU04/25/2025 7:07 AM EDT LACTIC ACID WITH 4 HOUR TNZROZZBUS22/25/2025 7:07 AM EDT TYPE AND EUYBPJBVFL19/25/2025 7:07 AM EDT HEPATIC FUNCTION PANELAdd-On02/22/2025 7:00 AM EDT LIGHT GREEN SQMOuntxxr88/25/2025 7:00 AM EDT EXTRA QODCMPvjdiqb65/25/2025 7:00 AM EDT CBC WITH AUTO CXZLCJGJNBWFFTGB65/25/2025 6:58 AM EDT EACSMXQZZDDTO76/25/2025 6:58 AM EDT HIGH SENSITIVITY TROPONIN ISTAT02/22/2025 6:58 AM EDT CBC AND NSQVBONKCDSYNJLX11/25/2025 6:58 AM EDT POCT GLUCOSE METER UNSOLICITED UQULIWPDeuthhl22/25/2025 6:13 AM EDT ANTI-FACTOR XAPending Jrlvwfwxn13/25/2025 5:08 AM EDT CBCSTAT Add-on02/22/2025 5:00 AM EDT HIGH SENSITIVITY TROPONIN IAdd-On02/22/2025 5:00 AM EDT MAGNESIUMAdd-On02/22/2025 5:00 AM EDT LAVENDER BDYPsmjxgt51/25/2025 5:00 AM EDT LIGHT GREEN BVNBvravur30/25/2025 5:00 AM EDT EXTRA SOEUWSrgorpy26/25/2025 5:[address] ABDOMEN PELVIS WO IV FLWZZAADUGZU96/24/2025 11:54 AM EDT ANTI-FACTOR XAPending Ktmwrfxji51/24/2025 3:55 AM EDT BASIC METABOLIC PANELPending Tmgzshyjg47/24/2025 3:55 AM EDT APTTPending Syninjdoq69/24/2025 3:55 AM EDT CBCPending Jifkvgtxy92/24/2025 3:55 AM EDT ANTI-FACTOR HHSighn0902/20/2025 11:40 PM EDT ANTI-FACTOR WDZitbb0002/20/2025 5:38 PM EDT ANTI-FACTOR IAAYXP9002/20/2025 9:39 AM EDT AMMZCozyhjs30/23/2025 9:39 AM EDT HEMOGLOBIN AND HEMATOCRIT, KNRVJRkeopjs80/23/2025 4:16 AM EDT BASIC METABOLIC KPYUODxjogqm68/23/2025 4:16 AM EDT HIGH SENSITIVITY TROPONIN PMlehg9502/19/2025 6:03 PM EDT HIGH SENSITIVITY TROPONIN SXuabj4702/19/2025 11:06 AM EDT ECG 12-CIDMDXVB53/22/2025 9:30 AM EDT ZGEPZqaepkh55/22/2025 8:19 AM EDT ANTI-FACTOR YRCorwqif67/22/2025 8:19 AM EDT MAGNESIUMAdd-On02/19/2025 4:18 AM EDT HIGH SENSITIVITY TROPONIN WSvmgt7502/19/2025 4:18 AM EDT EWCSjwtybf28/22/2025 4:18 AM EDT BASIC METABOLIC DUHXNAamjyke33/22/2025 4:18 AM EDT LAVENDER MRFWtlviav14/22/2025 1:25 AM EDT EXTRA QCTIZTxjjamq27/22/2025 1:25 AM EDT HIGH SENSITIVITY TROPONIN SUuxyc8502/19/2025 1:25 AM EDT LFGOIivynpw26/22/2025 1:25 AM EDT ANTI-FACTOR GYVqewtfc15/22/2025 1:25 AM EDT ECG 12-INSONSXT94/21/2025 7:30 PM EDT ANTI-FACTOR XAAdd-On02/18/2025 6:46 PM EDT HODITXXJ17/21/2025 6:46 PM EDT CBC WITH AUTO KALSHNRPISMPTWUE44/21/2025 6:46 PM EDT TSH3 REFLEX TO TJ7OVKZ1802/18/2025 6:46 PM EDT B-TYPE NATRIURETIC OESDKMOQYTC19/21/2025 6:46 PM EDT CBC AND LANIPKGTRWKZJZBG22/21/2025 6:46 PM EDT PROTIME-INTBHXH7502/18/2025 6:46 PM EDT HIGH SENSITIVITY TROPONIN ISTAT02/18/2025 6:46 PM EDT AAJZSSTJOPDDCQ14/21/2025 6:46 PM EDT IANYIZRKSZCKF52/21/2025 6:46 PM EDT LACTIC ACID, CMGKIWOSOP58/21/2025 6:46 PM EDT COMPREHENSIVE METABOLIC YXVGQXCQE15/21/2025 6:46 PM EDT from Last 3 Months Results * CBC and differential (03/25/2025 10:38 AM EDT) Only the most recent of2 resultswithin the time period is included. Specimen (Source)Anatomical Location / LateralityCollection Method / Volume Collection TimeReceived TimeBloodVenous blood specimen / Unknown Narrative Authorizing ProviderResult TypeResult StatusAngetoya [facility] BLOOD ORDERABLESFinal Result * Comprehensive metabolic panel (03/25/2025 10:38 AM EDT) Only the most recent of15 resultswithin the time period is included. Specimen (Source)Anatomical Location / LateralityCollection Method / Volume Collection TimeReceived TimeBloodVenous blood specimen / Unknown Narrative Authorizing ProviderResult TypeResult Mari Botello [facility] BLOOD ORDERABLESFinal Result * ECG 12 lead unit performed (03/23/2025 1:23 PM EDT) Only the most recent of2 resultswithin the time period is included. Specimen (Source)Anatomical Location / LateralityCollection Method / Volume Collection TimeReceived Time Narrative Authorizing ProviderResult TypeResult StatusPrabhu Chavez MDECG ORDERABLESFinal Result * (ABNORMAL) CBC (03/05/2025 5:00 AM EDT) Only the most recent of30 resultswithin the time period is included. ComponentValueRef RangeTest MethodAnalysis TimePerformed AtPathologist Signature Auto WBC7.454.00 - 10.60 10*3/uL03/05/2025 5:48 AM [facility] [[email or web address]] LAB ([facility]) RBC2.69(L)4.20 - 5.70 10*6/uL03/05/2025 5:48 AM [facility] [[email or web address] ([facility]) Hemoglobin8.1(L)13.0 - 17.0 g/dL03/05/2025 5:48 AM [email or web address] ([facility]) Kfujilpgtz08.2(L)39.0 - 50.0 %03/05/2025 5:48 AM [email or web address] ([facility]) MCV90.082.0 - 98.0 fL03/05/2025 5:48 AM [email or web address] ([facility])MCH30.127.0 - 33.0 pg03/05/2025 5:48 AM [email or web address] ([facility])MCHC33.532.0 - 35.0 g/dL03/05/2025 5:48 AM [email or web address] ([facility])RDW16.3(H)11.5 - 15.0 % 03/05/2025 5:48 AM [email or web address] ([facility])Ikmgzerdx874031 - 400 10*3/uL 03/05/2025 5:48 AM [email or web address] ([facility])Specimen (Source)Anatomical Location / LateralityCollection Method / VolumeCollection TimeReceived TimeBlood Venous blood specimen / UnknownVenipuncture / Ztszcah2403/05/2025 5:00 AM EDT 03/05/2025 5:36 AM EDT Narrative Authorizing ProviderResult TypeResult StatusCalderon Hernandez MDLAB BLOOD ORDERABLES Final ResultPerforming OrganizationAddressCity/State/ZIP CodePhone Number [facility] ([facility]) [address] [place] [address] * Phosphorus (03/05/2025 5:00 AM EDT) Only the most recent of12 resultswithin the time period is included. ComponentValueRef RangeTest MethodAnalysis TimePerformed AtPathologist Signature Phosphorus3.02.5 - 5.0 mg/dL03/05/2025 6:02 AM [facility] [[email or web address] LAB [facility]) Specimen (Source)Anatomical Location / LateralityCollection Method / Volume Collection TimeReceived TimeBloodVenous blood specimen / UnknownVenipuncture / Vmmwinm4103/05/2025 5:00 AM EDT03/05/2025 5:35 AM EDT Narrative Authorizing ProviderResult TypeResult StatusCalderon Hernandez MDLAB BLOOD ORDERABLES Final ResultPerforming OrganizationAddressCity/State/ZIP CodePhone Number [facility]) [address] [place] [phone] * Magnesium (03/05/2025 5:00 AM EDT) Only the most recent of15 resultswithin the time period is included. ComponentValueRef RangeTest MethodAnalysis TimePerformed AtPathologist Signature Magnesium1.91.9 - 2.7 mg/dL03/05/2025 6:02 AM [facility] [[email or web address] LAB [facility]) Specimen (Source)Anatomical Location / LateralityCollection Method / Volume Collection TimeReceived TimeBloodVenous blood specimen / UnknownVenipuncture / Manequr7603/05/2025 5:00 AM EDT03/05/2025 5:35 AM EDT Narrative Authorizing ProviderResult TypeResult StatusCalderon Hernandez MDLAB BLOOD ORDERABLES Final ResultPerforming OrganizationAddressCity/State/ZIP CodePhone Number [facility] ([facility]) [address] [place] [address] * CTA Heart Coronary W IV Contrast W or WO FFRct (03/04/2025 3:29 PM EDT) Anatomical RegionLateralityModalityHeartComputed TomographySpecimen (Source) Anatomical Location / LateralityCollection Method / VolumeCollection Time Received Time03/09/2025 9:35 AM EDT Impressions 03/09/2025 9:59 AM EDT 1. Abnormal coronary CTA with . Mild stenosis in the proximal RCA and LAD. Limited evaluation of the distal left circumflex with mild stenosis in the proximal segment. 2. Abnormal global and regional wall motion and function of the LV. ??Decreased ejection fraction at 45% which is slightly [...] Moderate: 50-70% stenosis Severe: >70% stenosis Occluded ?? Dominance of the coronary artery system: right [...] small calcified plaque at the mid LAD. ??There is a no evidence of myocardial bridge [...] proximal LAD. Electronically signed: Reji Dick MD. Authorizing ProviderResult TypeResult StatusCalderon NAPOLESG CT PROCEDURESFinal Result * Lavender Top (03/04/2025 4:48 AM EDT) Only the most recent of5 resultswithin the time period is included. ComponentValueRef RangeTest MethodAnalysis TimePerformed AtPathologist Signature Extra TubeHold for add-ons.03/04/2025 7:01 AM [facility] [[email or web address]] LAB ([facility]) Comment:Auto resulted.Specimen (Source)Anatomical Location / Laterality Collection Method / VolumeCollection TimeReceived TimeBloodVenous blood specimen / UnknownVenipuncture / Zgrdobw8403/04/2025 4:48 AM EDT03/04/2025 5:13 AM EDT Narrative Authorizing ProviderResult TypeResult StatusCalderon HAMMOND BLOOD ORDERABLES Final ResultPerforming OrganizationAddressCity/State/ZIP CodePhone Number [facility] ([facility]) [address] [place] [address] * Light Green Top (03/04/2025 4:48 AM EDT) Only the most recent of3 resultswithin the time period is included. ComponentValueRef RangeTest MethodAnalysis TimePerformed AtPathologist Signature Extra TubeHold for add-ons.03/04/2025 7:01 AM [facility] [[email or web address] LAB ([facility]) Comment:Auto resulted.Specimen (Source)Anatomical Location / Laterality Collection Method / VolumeCollection TimeReceived TimeBloodVenous blood specimen / UnknownVenipuncture / Latzgqi0503/04/2025 4:48 AM EDT03/04/2025 5:13 AM EDT Narrative Authorizing ProviderResult TypeResult Statusjuan m Hernandez MDLAB BLOOD ORDERABLES Final ResultPerforming OrganizationAddressCity/State/ZIP CodePhone Number [facility] ([facility]) [address] [place] [address] * Anti-Xa (Heparin Level) (03/04/2025 4:41 AM EDT) Only the most recent of14 resultswithin the time period is included. ComponentValueRef RangeTest MethodAnalysis TimePerformed AtPathologist Signature Anti-Xa (Heparin)0.340.3 - 0.7 IU/mL03/04/2025 5:57 AM EDTWIN[facility] ([facility])Comment:Rivaroxaban and Apixaban will interfere with the anti Xa assay used to monitor UFH and LMWH.Specimen (Source)Anatomical Location / Laterality Collection Method / VolumeCollection TimeReceived TimeBloodVenous blood specimen / UnknownVenipuncture / Akuvyzd1003/04/2025 4:41 AM EDT03/04/2025 5:11 AM EDT Narrative Authorizing ProviderResult TypeResult StatusCalderon Hernandez MDLAB BLOOD ORDERABLES Final ResultPerforming OrganizationAddressCity/State/ZIP CodePhone Number [facility] ([facility]) [place] [address] * ECG 12 lead (03/04/2025 4:06 AM EDT) Only the most recent of7 resultswithin the time period is included. ComponentValueRef RangeTest MethodAnalysis TimePerformed AtPathologist Signature Ventricular Zltp11KJNPY MUSEAtrial Tjbl34TXNSA MUSEPR Iqqmsqxa532ieBM MUSEQRS PZPTYJGQ745pyHY MUSEQT Ekykofqo675vqOW MUSEQTC CALCULATION(BAZETT)492msGE MUSEP Kixx38arfajfqMI SKAOV-Zodm-35ptdfmpxSZ MUSET Wave Ztka932jltcjkgNE MUSESpecimen (Source)Anatomical Location / LateralityCollection Method / VolumeCollection TimeReceived Time03/04/2025 12:43 AM EDT03/04/2025 5:11 PM EDT Impressions GE MUSE - [...] Prabhu Chavez (80) on 03/04/2025 5:11:38 PM Authorizing ProviderResult TypeResult StatusCarol Carter [facility] ORDERABLESFinal ResultPerforming OrganizationAddressCity/State/ZIP CodePhone Number GE MUSE * (ABNORMAL) aPTT - baseline (03/03/2025 12:54 PM EDT) Only the most recent of7 resultswithin the time period is included. ComponentValueRef RangeTest MethodAnalysis TimePerformed AtPathologist Signature aPTT41.8(H)25.0 - 35.0 Vnubirx2403/03/2025 1:33 PM [facility] [[email or web address]] LAB ([facility]) Comment:Clinical significance of the APTT is questionable in the presence of heparin.Specimen (Source)Anatomical Location / LateralityCollection Method / VolumeCollection TimeReceived TimeBloodVenous blood specimen / Unknown Venipuncture / Fhhgqra0603/03/2025 12:54 PM EDT03/03/2025 12:58 PM EDT Narrative Authorizing ProviderResult TypeResult StatusCalderon HAMMOND BLOOD ORDERABLES Final ResultPerforming OrganizationAddressCity/State/ZIP CodePhone Number [facility] ([facility]) [address] [place] [address] * Platelet count (03/03/2025 12:54 PM EDT) Only the most recent of2 resultswithin the time period is included. ComponentValueRef RangeTest MethodAnalysis TimePerformed AtPathologist Signature Gnwqusqpf007967 - 400 10*3/uL03/03/2025 1:18 PM [facility] Specimen (Source)Anatomical Location / LateralityCollection Method / Volume Collection TimeReceived TimeBloodVenous blood specimen / UnknownVenipuncture / Oqlpuxp6203/03/2025 12:54 PM EDT03/03/2025 1:01 PM EDT Narrative Authorizing ProviderResult TypeResult StatusFadi Mary HAMMOND BLOOD ORDERABLES Final ResultPerforming OrganizationAddressCity/State/ZIP CodePhone Number [facility] ([facility]) [address] [place] [address] * TRANSESOPHAGEAL ECHO (BERNARDINO) W/ LIMITED DOPPLER AND COLOR FLOW (03/03/2025 10:09 AM EDT)Anatomical RegionLateralityModalityOtherSpecimen (Source)Anatomical Location / LateralityCollection Method / VolumeCollection TimeReceived Time 03/03/2025 9:24 AM EDT Narrative 03/03/2025 3:46 PM EDT [facility] [address] [place] [address] [phone] (fax) Transesophageal Echocardiogram-[facility] Name: LINDSAY PINTO Study Date: 03/03/2025 09:24 AM B/P: 108 mmHg/71 mmHg HR: 84 bpm Date of : 1965 Location: [facility] Height: 68 in. Age: 59 year(s) Patient Room: 3174 Weight: 244 lb. Gender: Male Patient Status: InPt BSA: 2.22 m2 Indication: Atrial Fibrillation Examination: BERNARDINO/Limited Doppler/CFI, Agitated Saline Image Quality: Fair Patient Consent: Informed, written consent was obtained for the procedure Exam Details Contrast: I.V. dose of agitated saline Exam Location: A BERNARDINO was performed in the [employer] without complications Anesthesia Pharyngeal anesthesia with viscous [...] with fibrinous content/thrombus close to transverse sinus ??Overall Conclusions: Biphasic cardioversion was performed at 360 [...] with fibrinous content/thrombus close to transverse sinus ??Procedure Staff Reading Group: [facility] Referring Physician: JALEN LINDER ??Hotel Services Supervisor: Susana Johnson, ZUHAIR, RDCS ??Ordering Physician: JOSE COBURN ?? Procedure Note Hugo Rojas MD - 03/03/2025 1 [facility] Heart [facility] [address] [facility] [place], [place] [phone] (fax) Transesophageal Echocardiogram-[facility] Name: LINDSAY PINTO Study Date: 03/03/2025 09:24 AM B/P: 108 mmHg/71 mmHg HR: 84 bpm Date of : 1965 Location: [facility] Height: 68 in. Age: 59 year(s) Patient Room: 3174 Weight: 244 lb. Gender: Male Patient Status: InPt BSA: 2.22 m2 Indication: Atrial Fibrillation Examination: BERNARDINO/Limited Doppler/CFI, Agitated Saline Image Quality: Fair Patient Consent: Informed, written consent was obtained for the procedure Exam Details Contrast: I.V. dose of agitated saline Exam Location: A BERNARDINO was performed in the [employer] without complications Anesthesia Pharyngeal anesthesia with viscous [...] to transverse sinus Procedure Staff Reading Group: [facility] Referring Physician: JALEN LINDER Hotel Services Supervisor: ZUHAIR Caban, RDCS Ordering Physician: JOSE COBURN Authorizing ProviderResult TypeResult [facility] ECHO PROCEDURES Final Result * CARDIOVERSION (03/03/2025 10:01 AM EDT)Anatomical RegionLateralityModality OtherSpecimen (Source)Anatomical Location / LateralityCollection Method / VolumeCollection TimeReceived Time Impressions 03/03/2025 3:24 PM EDT Successful DC cardioversion. Narrative 03/03/2025 3:24 PM EDT COMPLICATIONS: None. OPERATIVE TERM: ??DC cardioversion. An informed consent was obtained from the patient after explaining the indication, risk and benefits, and alternatives. ??The patient understood, agreed, and signed the consent form. ??The patient was brought to the [facility] and transesophageal echocardiogram was performed under conscious sedation. ?? OPERATIVE TECHNIQUE: ??The transesophageal echocardiogram did not show any thrombus in the left atrial appendage. ??Full BERNARDINO reported elsewhere. ?? After the transesophageal echocardiogram, a synchronized biphasic cardioversion was done with 360 joules of energy. ?? The patient successfully converted to the sinus rhythm as evidence by the EKG done postprocedure. His hemodynamics remained stable during the procedure. Authorizing ProviderResult TypeResult [facility] ELECTROPHYSIOLOGY PROCEDURESFinal Result * (ABNORMAL) Digoxin level (03/03/2025 3:46 AM EDT) Only the most recent of3 resultswithin the time period is included. ComponentValueRef RangeTest MethodAnalysis TimePerformed AtPathologist Signature Digoxin Lvl0.6(L)0.7 - 2 ng/mL03/03/2025 4:25 AM [facility] [[email or web address]] LAB ([facility]) Specimen (Source)Anatomical Location / LateralityCollection Method / Volume Collection TimeReceived TimeBloodVenous blood specimen / UnknownVenipuncture / Wrceglh6103/03/2025 3:46 AM EDT03/03/2025 3:57 AM EDT Narrative Authorizing ProviderResult TypeResult StatusFajuan m HAMMOND BLOOD ORDERABLES Final ResultPerforming OrganizationAddressCity/State/ZIP CodePhone Number [facility] ([facility]) [address] [place] [address] * (ABNORMAL) Urinalysis (03/02/2025 2:48 PM EDT)ComponentValueRef RangeTest MethodAnalysis TimePerformed AtPathologist SignatureColor, UrineYellow Colorless, Yellow, Light-Vnmwzg1303/02/2025 3:00 PM [facility] [[email or web address] LAB ([facility])Clarity, IhyznSfogzCsajo96/02/2025 3:00 PM [facility] [[email or web address] LAB ([facility])pH, Urine6.55.0 - 8.0 pH03/02/2025 3:00 PM [facility] [[email or web address] LAB ([facility])Leukocytes, YifqbWwzjkkqgOgkobxaw00/02/2025 3:00 PM [email or web address] LAB ([facility])Nitrite, PsbvzAxbqraqbLaavgvjm76/02/2025 3:00 PM [email or web address] ([facility])Protein, UrineNegativeNegative mg/dL03/02/2025 3:00 PM [email or web address] LAB ([facility])Glucose, UrineNormalNormal mg/dL03/02/2025 3:00 PM EDT [facility] ([facility])Bilirubin, JywtzMaibimrvQuhakmmt37/02/2025 3:00 PM [facility] [[email or web address] LAB ([facility])Specific [place], Urine1.0161.010 - 1.030 03/02/2025 3:00 PM [email or web address] ([facility])Ketones, UrineNegativeNegative mg/dL03/02/2025 3:00 PM [email or web address] ([facility])Blood, UrineNegative Yhzdqdtc11/02/2025 3:00 PM [email or web address] ([facility])Urobilinogen, Urine >=8.0(A)Normal mg/dL03/02/2025 3:00 PM [email or web address] ([facility])Specimen (Source)Anatomical Location / LateralityCollection Method / VolumeCollection TimeReceived TimeUrineUrine specimen obtained by clean catch procedure / UnknownNon-blood Collection / Osjqcpl1503/02/2025 2:48 PM EDT03/02/2025 2:52 PM EDT Narrative [facility] ([facility]) - 03/02/2025 3:00 PM EDT Microscopics not performed on urines with negative chemical reactions unless requested on original order. Authorizing ProviderResult TypeResult StatusFadi Mary HAMMOND URINE ORDERABLES Final ResultPerforming OrganizationAddressCity/State/ZIP CodePhone Number [facility] ([facility]) [address] [place] [address] * LIMITED ECHO (TTE) W/ LIMITED DOPPLER, COLOR FLOW AND IMAGING AGENT (03/02/2025 12:33 PM EDT)Anatomical RegionLateralityModalityOtherSpecimen (Source)Anatomical Location / LateralityCollection Method / VolumeCollection TimeReceived Time03/02/2025 12:02 PM EDT Narrative 03/02/2025 3:32 PM EDT 1 1 [facility] Heart Station [address] [place] [address] [phone] (fax) Echocardiogram-[facility] Name: LINDSAY PINTO Study Date: 03/02/2025 12:02 PM B/P: 111 mmHg/69 mmHg HR: 84 bpm Date of : 1965 Location: [facility] Height: 68 in. Age: 59 year(s) Patient Room: [facility] Weight: 247 lb. Gender: Male Patient [...] minimal pericardial effusion. Procedure Staff Reading Group: [facility] Referring Physician: JALEN LINDER ??Hotel Services Supervisor: ZUHAIR Caban, RDCS ??Ordering Physician: CALDERON HERNANDEZ ?? Procedure Note Hugo Rojas MD - 03/02/2025 1 1 [facility] [address] [facility] [place] [address] [phone] (fax) Echocardiogram-[facility] Name: LINDSAY PINTO Study Date: 03/02/2025 12:02 PM B/P: 111 mmHg/69 mmHg HR: 84 bpm Date of : 1965 Location: [facility] Height: 68 in. Age: 59 year(s) [...] minimal pericardial effusion. Procedure Staff Reading Group: [facility] Referring Physician: JALEN LINDER Hotel Services Supervisor: ZUHAIR Caban, RDCS Ordering Physician: CALDERON HERNANDEZ Authorizing ProviderResult TypeResult StatusFadi Mary [facility] ECHO PROCEDURESFinal Result * (ABNORMAL) Reticulocyte panel (02/26/2025 11:48 AM EDT)ComponentValueRef Range Test MethodAnalysis TimePerformed AtPathologist SignatureRetic Ct Abs0.0781 0.0250 - 0.1000 10*6/uL02/26/2025 2:07 PM [facility] [[email or web address]] LAB ([facility])Retic Ct Pct2.79(H)0.50 - 1.80 %02/26/2025 2:07 PM [email or web address] ([facility]) Immature Reticulocyte Fraction %36.5(H)2 - 16 %02/26/2025 2:07 PM [email or web address] LAB ([facility])Reticulocyte Blgzurjyki71.028.0 - 36.0 pg02/26/2025 2:07 PM [email or web address] ([facility])Specimen (Source)Anatomical Location / LateralityCollection Method / VolumeCollection TimeReceived TimeBloodVenous blood specimen / UnknownExisting Catheter / Ntsscdc1002/26/2025 11:48 AM EDT 02/26/2025 12:00 PM EDT Narrative Authorizing ProviderResult TypeResult StatusCalderon HAMMOND BLOOD ORDERABLES Final ResultPerforming OrganizationAddressCity/State/ZIP CodePhone Number [facility] ([facility]) [address] [place] [address] * (ABNORMAL) Iron and TIBC (02/26/2025 5:13 AM EDT)ComponentValueRef RangeTest MethodAnalysis TimePerformed AtPathologist VqxanlmkpEvhw42(L)50 - 212 ug/dL 02/26/2025 12:38 PM [email or web address] ([facility])XXFN311(L)250 - 450 ug/dL 02/26/2025 12:38 PM [email or web address] ([facility])Iron Saturation9(L)20 - 50 % 02/26/2025 12:38 PM [email or web address] ([facility])IQCP361.0155.0 - 355.0 ug/dL 02/26/2025 12:38 PM [email or web address] ([facility])Specimen (Source)Anatomical Location / LateralityCollection Method / VolumeCollection TimeReceived Time BloodArterial blood specimen / UnknownExisting Catheter / Fhijljr1102/26/2025 5:13 AM EDT02/26/2025 5:36 AM EDT Narrative Authorizing ProviderResult TypeResult StatusCalderon HAMMOND BLOOD ORDERABLES Final ResultPerforming OrganizationAddressCity/State/ZIP CodePhone Number [facility] ([facility]) [address] [place] [address] * Folate (02/26/2025 5:13 AM EDT)ComponentValueRef RangeTest MethodAnalysis Time Performed AtPathologist ZexkwckqyJpmonn08.666.6 - 1,000 ng/mL02/26/2025 1:05 PM [email or web address] ([facility])Specimen (Source)Anatomical Location / LateralityCollection Method / VolumeCollection TimeReceived TimeBloodArterial blood specimen / UnknownExisting Catheter / Hpjjukf1502/26/2025 5:13 AM EDT 02/26/2025 5:36 AM EDT Narrative Authorizing ProviderResult TypeResult StatusCalderon HAMMOND BLOOD ORDERABLES Final ResultPerforming OrganizationAddressCity/State/ZIP CodePhone Number [facility] ([facility]) [address] [place] [address] * Ferritin (02/26/2025 5:13 AM EDT)ComponentValueRef RangeTest MethodAnalysis TimePerformed AtPathologist WmembymwzPluiwuwz628.024.0 - 336.0 ng/mL02/26/2025 1:05 PM [email or web address] ([facility])Specimen (Source)Anatomical Location / LateralityCollection Method / VolumeCollection TimeReceived TimeBloodArterial blood specimen / UnknownExisting Catheter / Exnhavl3002/26/2025 5:13 AM EDT 02/26/2025 5:36 AM EDT Narrative Authorizing ProviderResult TypeResult StatusCalderon HAMMOND BLOOD ORDERABLES Final ResultPerforming OrganizationAddressCity/State/ZIP CodePhone Number [facility] ([facility]) [address] [place] [address] * (ABNORMAL) Vitamin B12 (02/26/2025 5:13 AM EDT)ComponentValueRef RangeTest MethodAnalysis TimePerformed AtPathologist SignatureVitamin B-121,129(H)180 - 914 pg/mL02/26/2025 1:05 PM [email or web address] ([facility])Comment: REFERENCE RANGES: 180-914 pg/mL ??Normal 145-179 pg/mL ??Indeterminate <145 pg/mL Deficient Specimen (Source)Anatomical Location / LateralityCollection Method / Volume Collection TimeReceived TimeBloodArterial blood specimen / UnknownExisting Catheter / Ccmfukm2002/26/2025 5:13 AM EDT02/26/2025 5:36 AM EDT Narrative Authorizing ProviderResult TypeResult StatusFajuan m HAMMOND BLOOD ORDERABLES Final ResultPerforming OrganizationAddressCity/State/ZIP CodePhone Number [facility] ([facility]) [address] [place] [address] * Transfuse RBC (02/25/2025 12:11 PM EDT) Narrative Authorizing ProviderResult TypeResult StatusCalderon Hernandez MDBLOOD TRANSFUSION ORDERABLESFinal Result * CTA Abdomen Pelvis W IV Contrast (02/25/2025 10:49 AM EDT)Anatomical Region LateralityModalityBody, Pelvis, AbdomenComputed TomographySpecimen (Source) Anatomical Location / LateralityCollection Method / VolumeCollection Time Received Time02/25/2025 12:02 PM EDT Impressions 02/25/2025 12:07 PM EDT [...] the uncomplicated intravenous administration of 100 mL Zngvnyxez023. 3-D maximum intensity projection reconstructions constructed underconcurrent [...] reasonably achievable. Electronically signed: Daniel Diaz MD. Authorizing ProviderResult TypeResult StatusAutumn NAPOLESG CT PROCEDURES Final Result * (ABNORMAL) Hemoglobin and hematocrit, blood (02/25/2025 9:04 AM EDT) Only the most recent of3 resultswithin the time period is included. ComponentValueRef RangeTest MethodAnalysis TimePerformed AtPathologist Signature Hemoglobin7.9(L)13.0 - 17.0 g/dL02/25/2025 9:20 AM [facility] [[email or web address] LAB (BEAKER) Bsoxlbtkwo01.8(L)39.0 - 50.0 %02/25/2025 9:20 AM [facility] [[email or web address] LAB (BEAKER) Specimen (Source)Anatomical Location / LateralityCollection Method / Volume Collection TimeReceived TimeBloodArterial blood specimen / UnknownExisting Catheter / Hucgotw2602/25/2025 9:04 AM EDT02/25/2025 9:12 AM EDT Narrative Authorizing ProviderResult TypeResult StatusCalderon HAMMOND BLOOD ORDERABLES Final ResultPerforming OrganizationAddressCity/State/ZIP CodePhone Number [facility] (BE[facility]ER) [address] [place] [address] * (ABNORMAL) Urinalysis with microscopic (02/24/2025 10:52 AM EDT)ComponentValue Ref RangeTest MethodAnalysis TimePerformed AtPathologist SignatureColor, Urine YellowColorless, Yellow, Light-Kzflsw1602/24/2025 11:28 AM [facility] [[email or web address] LAB ([facility])Clarity, UrineCloudy(A)Clear02/24/2025 11:28 AM [facility] [[email or web address] LAB ([facility])Specific [place], Urine1.036(H)1.010 - 1.2877302/24/2025 11:28 AM [facility] ([facility])pH, Urine5.55.0 - 8.0 pH02/24/2025 11:28 AM [facility] [[email or web address] LAB ([facility])Leukocytes, UrineModerate(A)Rfmyhrnk66/27/2025 11:28 AM [facility] [[email or web address] LAB ([facility])Nitrite, JpnfcZdqnosxrMwqymslg53/27/2025 11:28 AM [facility] [[email or web address] LAB ([facility])Protein, Urine30(A)Negative mg/dL02/24/2025 11:28 AM [facility] [[email or web address] LAB ([facility])Glucose, UrineNormalNormal mg/dL02/24/2025 11:28 AM [email or web address] LAB ([facility])Bilirubin, UrineNegativeNegative 02/24/2025 11:28 AM [facility] [[email or web address] LAB ([facility])Ketones, UrineNegative Negative mg/dL02/24/2025 11:28 AM [facility] [[email or web address] LAB ([facility])Urobilinogen, UrineNormalNormal mg/dL02/24/2025 11:28 AM [email or web address] LAB ([facility])Blood, UrineLarge(A)Fiagwjww72/27/2025 11:28 AM [email or web address] LAB ([facility])RBC, Urine>20(A)None Seen, 0-2 /HPF02/24/2025 11:28 AM [facility] [[email or web address] LAB ([facility])WBC, Tnbji31-27(A)None Seen, 0-2 /HPF02/24/2025 11:28 AM [facility] [[email or web address] LAB ([facility])Squamous Epithelial, UrineModerate(A)None Seen, Occasional, Few /LP02/24/2025 11:28 AM [facility] [[email or web address] LAB ([facility])Mucus, UrineModerate(A)None Seen, Occasional, Few /LP02/24/2025 11:28 AM [email or web address] LAB ([facility])Casts, UrinePresent(A)None Seen /LP02/24/2025 11:28 AM [email or web address] LAB ([facility])Hyaline Casts, UA3-5(A)0 - 2 /LP02/24/2025 11:28 AM [email or web address] LAB ([facility])Specimen (Source)Anatomical Location / LateralityCollection Method / VolumeCollection TimeReceived TimeUrineUrine specimen obtained by clean catch procedure / UnknownNon-blood Collection / Zzzvglb5502/24/2025 10:52 AM EDT02/24/2025 11:05 AM EDT Narrative Authorizing ProviderResult TypeResult StatusShkendy Sheppard MDLAB URINE ORDERABLES Final ResultPerforming OrganizationAddressCity/State/ZIP CodePhone Number [facility]) [address] [place] [address] * Sodium, urine, random (02/24/2025 10:52 AM EDT)ComponentValueRef RangeTest MethodAnalysis TimePerformed AtPathologist SignatureSodium, Fn00hbhb/L 02/24/2025 11:31 AM [facility] [[email or web address] LAB ([facility])Specimen (Source)Anatomical Location / LateralityCollection Method / VolumeCollection TimeReceived Time UrineUrine specimen obtained by clean catch procedure / UnknownNon-blood Collection / Ntrxbgr7402/24/2025 10:52 AM EDT02/24/2025 11:05 AM EDT Narrative Authorizing ProviderResult TypeResult StatusShobdarin Sheppard MDLAB URINE ORDERABLES Final ResultPerforming OrganizationAddressCity/State/ZIP CodePhone Number [facility]) [address] [place] [address] * Potassium, urine, random (02/24/2025 10:52 AM EDT)ComponentValueRef RangeTest MethodAnalysis TimePerformed AtPathologist SignaturePotassium, Me749esci/L 02/24/2025 11:31 AM [facility] [[email or web address] LAB ([place])Specimen (Source)Anatomical Location / LateralityCollection Method / VolumeCollection TimeReceived Time UrineUrine specimen obtained by clean catch procedure / UnknownNon-blood Collection / Ihhdosg6402/24/2025 10:52 AM EDT02/24/2025 11:05 AM EDT Narrative Authorizing ProviderResult TypeResult StatusMatilda Sheppard RILAB URINE ORDERABLES Final ResultPerforming OrganizationAddressCity/State/ZIP CodePhone Number [facility] (BEAKER) [address] [place] [address] * Osmolality, urine (02/24/2025 10:52 AM EDT)ComponentValueRef RangeTest Method Analysis TimePerformed AtPathologist SignatureOsmolality, Zyjkx45066 - 1300 mOsm/kg02/24/2025 5:40 PM [facility] LABComment:Test Performed by [facility] [address] [place] [id number] - Released 01/30 17:40Specimen (Source)Anatomical Location / LateralityCollection Method / VolumeCollection TimeReceived TimeUrineUrine specimen obtained by clean catch procedure / UnknownNon-blood Collection / Bofqewk2802/24/2025 10:52 AM EDT 02/24/2025 11:05 AM EDT Narrative Authorizing ProviderResult TypeResult StatusMatilda Sheppard [facility] ORDER[facility]LES Final ResultPerforming OrganizationAddressCity/State/ZIP CodePhone Number [facility] [address] [place] [address] * Creatinine, urine, random (02/24/2025 10:52 AM EDT)ComponentValueRef RangeTest MethodAnalysis TimePerformed AtPathologist SignatureCreatinine, Ur170.026 - 299 mg/dL02/24/2025 11:31 AM [facility] [[email or web address] LAB ([facility])Specimen (Source) Anatomical Location / LateralityCollection Method / VolumeCollection Time Received TimeUrineUrine specimen obtained by clean catch procedure / Unknown Non-blood Collection / Hartnzu2002/24/2025 10:52 AM EDT02/24/2025 11:05 AM EDT Narrative Authorizing ProviderResult TypeResult StatusMatilda Sheppard MDLAB URINE ORDERABLES Final ResultPerforming OrganizationAddressCity/State/ZIP CodePhone Number [facility] ([facility]) [address] [place] [address] * (ABNORMAL) Chloride, urine, random (02/24/2025 10:52 AM EDT)ComponentValueRef RangeTest MethodAnalysis TimePerformed AtPathologist SignatureChloride, Ur <15.0(L)110 - 250 mmol/L02/24/2025 11:31 AM EDTWIN[facility] ([facility]) Specimen (Source)Anatomical Location / LateralityCollection Method / Volume Collection TimeReceived TimeUrineUrine specimen obtained by clean catch procedure / UnknownNon-blood Collection / Azierik6002/24/2025 10:52 AM EDT 02/24/2025 11:05 AM EDT Narrative Authorizing ProviderResult TypeResult StatusShrandadarin Ladariuschey MDLAB URINE ORDERABLES Final ResultPerforming OrganizationAddressCity/State/ZIP CodePhone Number [facility] ([facility]) [address] [place] [address] * US renal complete (02/24/2025 10:09 AM EDT)Anatomical RegionLateralityModality KidneyUltrasoundSpecimen (Source)Anatomical Location / LateralityCollection Method / VolumeCollection TimeReceived Time02/24/2025 10:21 AM EDT Impressions 02/24/2025 10:24 AM EDT [...] with knownhematoma. Electronically signed: INES JORDAN MD. Authorizing ProviderResult TypeResult StatusShobha Silver MDIMG US PROCEDURES Final Result * Blood culture, peripheral #1 (02/23/2025 12:04 PM EDT) Only the most recent of4 resultswithin the time period is included. ComponentValueRef RangeTest MethodAnalysis TimePerformed AtPathologist Signature Blood CultureNo growth at 5 days [place] 02/28/2025 1:01 PM EDTWINSL[facility] (BaofengЕКАТЕРИНА)Specimen (Source)Anatomical Location / LateralityCollection Method / VolumeCollection TimeReceived TimeBlood Venous blood specimen / UnknownVenipuncture / Pdompjs6902/23/2025 12:04 PM EDT 02/23/2025 12:19 PM EDT Narrative Authorizing ProviderResult TypeResult StatusFajuan m HAMMOND MICROBIOLOGY - GENERAL ORDERABLESFinal ResultPerforming OrganizationAddressCity/State/ZIP Code Phone Number [facility] (BEAKER) [address] [place] [address] * Lactic Acid with 4 hour reflex (02/23/2025 11:59 AM EDT) Only the most recent of3 resultswithin the time period is included. ComponentValueRef RangeTest MethodAnalysis TimePerformed AtPathologist Signature Lactate1.80.5 - 2.2 mmol/L02/23/2025 12:53 PM [facility] [[email or web address] LAB ([facility]) Specimen (Source)Anatomical Location / LateralityCollection Method / Volume Collection TimeReceived TimeBloodVenous blood specimen / UnknownExisting Catheter / Viwolam9602/23/2025 11:59 AM EDT02/23/2025 12:19 PM EDT Narrative Authorizing ProviderResult TypeResult StatusFadi Mary HAMMOND BLOOD ORDERABLES Final ResultPerforming OrganizationAddressCity/State/ZIP CodePhone Number [facility] ([facility]) [address] [place] [address] * (ABNORMAL) Basic metabolic panel (02/23/2025 12:07 AM EDT) Only the most recent of4 resultswithin the time period is included. ComponentValueRef RangeTest MethodAnalysis TimePerformed AtPathologist Signature Tfpbzs453780 - 145 mmol/L02/23/2025 12:38 AM [facility] [[email or web address] LAB ([facility]) Potassium4.53.5 - 5.1 mmol/L02/23/2025 12:38 AM [email or web address] LAB ([facility]) Dbmbeima66479 - 107 mmol/L02/23/2025 12:38 AM [facility] [[email or web address] LAB ([facility])CO225 21 - 31 mmol/L02/23/2025 12:38 AM [facility] [[email or web address] LAB ([facility])BUN35(H)7 - 25 mg/dL02/23/2025 12:38 AM [facility] [[email or web address] LAB ([facility])Creatinine2.01(H)0.70 - 1.30 mg/dL02/23/2025 12:38 AM [email or web address] LAB ([facility])Gcqkjva980(H)70 - 100 mg/dL02/23/2025 12:38 AM [email or web address] LAB ([facility])Calcium9.18.6 - 10.3 mg/dL 02/23/2025 12:38 AM [email or web address] LAB ([facility])Anion Vnk626 - 20 mmol/L 02/23/2025 12:38 AM [facility] [[email or web address] LAB ([facility])eGFR37.7(L)>60.0 mL/min/1.73m*2 02/23/2025 12:38 AM [facility] [[email or web address] LAB ([facility])Comment:[facility]???s estimated glomerular filtration rate (eGFR) will no longer include consideration of race in its calculation. The National Kidney Foundation???s eGFR Task Force developed new recommendations for the estimation of the glomerular filtration rate in the [place] They recommend immediate implementation of the new equation refit without the race variable in all la boratories because the calculation does not include race. In addition to not including race in the calculation and reporting, it included diversity in its development, and has acceptable performance characteristics and potential consequences that do not disproportionately affect any one group of individuals. BUN/Creatinine Ratio17. 12:38 AM [facility] [[email or web address]] LAB ([facility]) Specimen (Source)Anatomical Location / LateralityCollection Method / Volume Collection TimeReceived TimeBloodVenous blood specimen / UnknownExisting Catheter / Ewlgpdo4202/23/2025 12:07 AM EDT02/23/2025 12:13 AM EDT Narrative Authorizing ProviderResult TypeResult StatusFadi Safi MDLAB BLOOD ORDERABLES Final ResultPerforming OrganizationAddressCity/State/ZIP CodePhone Number [facility] ([facility]) [address] [place] [address] * XR chest 1 view (02/22/2025 7:06 PM EDT)Anatomical RegionLateralityModality ChestComputed RadiographySpecimen (Source)Anatomical Location / Laterality Collection Method / VolumeCollection TimeReceived Time02/22/2025 7:07 PM EDT Impressions 02/22/2025 7:08 PM [...] pneumonia noted. Electronically signed: Davy Garcia M.D.. Authorizing ProviderResult TypeResult StatusFajuan m Hernandez MDIMG XR PROCEDURESFinal Result * (ABNORMAL) Urinalysis microscopic with reflex culture (02/22/2025 4:15 PM EDT)ComponentValueRef RangeTest MethodAnalysis TimePerformed AtPathologist SignatureRBC, Urine>20(A)None Seen, 0-2 /HPF02/22/2025 4:42 PM [facility] [[email or web address] LAB ([facility])WBC, UrineNone SeenNone Seen, 0-2 /HPF02/22/2025 4:42 PM [email or web address] LAB ([facility])Squamous Epithelial, UrineNone SeenNone Seen, Occasional, Few /LPF02/22/2025 4:42 PM [email or web address] LAB ([facility])Specimen (Source)Anatomical Location / LateralityCollection Method / VolumeCollection TimeReceived TimeUrine (Urine, Tello Catheter)Non-blood Collection / Unknown 02/22/2025 4:15 PM EDT02/22/2025 4:20 PM EDT Narrative Authorizing ProviderResult TypeResult StatusSuleiman Corcoran MDLAB URINE ORDERABLESFinal ResultPerforming OrganizationAddressCity/State/ZIP CodePhone Number [facility] ([facility]) [address] [place] [address] * (ABNORMAL) Urinalysis with reflex culture (02/22/2025 4:15 PM EDT)Component ValueRef RangeTest MethodAnalysis TimePerformed AtPathologist SignatureColor, UrineRed(A)Colorless, Yellow, Light-Qnjcyd91/ 4:42 PM [facility] [[email or web address] LAB ([facility])Clarity, UrineTurbid(A)Clear02/22/2025 4:42 PM [email or web address] LAB ([facility])pH, Urine5.55.0 - 8.0 pH02/22/2025 4:42 PM [email or web address] LAB ([facility])Leukocytes, UrineTrace(A)Nhfagyrk64/25/2025 4:42 PM [email or web address] LAB ([facility])Nitrite, HtygzZsngsokxNxyipnxc62/25/2025 4:42 PM [email or web address] LAB ([facility])Protein, Urine30(A)Negative mg/dL02/22/2025 4:42 PM [email or web address] LAB ([facility])Glucose, UrineNormalNormal mg/dL02/22/2025 4:42 PM T [facility] ([facility])Bilirubin, ZigvlCpegcseiVzjtjibu11/25/2025 4:42 PM [email or web address] LAB ([facility])Specific [place], Urine>1.050(H)1.010 - 1.030 02/22/2025 4:42 PM [email or web address] LAB ([facility])Ketones, UrineNegativeNegative mg/dL02/22/2025 4:42 PM [email or web address] ([facility])Blood, UrineLarge(A) Rfemjmkx45/25/2025 4:42 PM [email or web address] LAB ([facility])Urobilinogen, Urine NormalNormal mg/dL02/22/2025 4:42 PM [email or web address] ([facility])Specimen (Source)Anatomical Location / LateralityCollection Method / VolumeCollection TimeReceived TimeUrine (Urine, Tello Catheter)Non-blood Collection / Unknown 02/22/2025 4:15 PM EDT02/22/2025 4:20 PM EDT Narrative Authorizing ProviderResult TypeResult StatusSuleiman HAMMOND URINE ORDERABLESFinal ResultPerforming OrganizationAddressCity/State/ZIP CodePhone Number [facility] ([facility]) [address] [place] [address] * CT abdomen pelvis w IV contrast (02/22/2025 1:01 PM EDT)Anatomical Region LateralityModalityBody, Pelvis, AbdomenComputed TomographySpecimen (Source) Anatomical Location / LateralityCollection Method / VolumeCollection Time Received Time02/22/2025 1:08 PM EDT Impressions 02/22/2025 1:20 PM [...] 1:14 PM Electronically signed: Daniel Diaz MD. Authorizing ProviderResult TypeResult StatusPajordy VALDOVINOS CT PROCEDURESFinal Result * CT chest w IV contrast (02/22/2025 1:01 PM EDT)Anatomical RegionLaterality ModalityBody, ChestComputed TomographySpecimen (Source)Anatomical Location / LateralityCollection Method / VolumeCollection TimeReceived Time02/22/2025 1:08 PM EDT Impressions 02/22/2025 1:13 PM [...] present. Bilateral pleural effusions. There is a rwigs-gj-ggqvzpat pericardial effusion. Aorta is unremarkable. Mild to [...] scarring present. Bilateral pleural effusions.There is a aenjq-zc-prnnfotv pericardial effusion. Aorta is unremarkable. Mildto moderate coronary artery calcifications. Pulmonary arteries are ofnormal caliber. Postoperative changes GE junction with hiatal hernia. No lymphadenopathy. Degenerative changes. IMPRESSION: *Bibasilar consolidation, atelectasis, pleural effusions. *Small to moderate pericardial effusion, consider echocardiography. *Please see above for further details. Electronically signed: Keyur Romero MD. Authorizing ProviderResult TypeResult StatusFadi Mary VALDOVINOS CT PROCEDURESFinal Result * Red Top (02/22/2025 11:49 AM EDT)ComponentValueRef RangeTest MethodAnalysis TimePerformed AtPathologist SignatureExtra TubeHold for add-ons.02/22/2025 1:01 PM [facility]TUN[facility] ([facility])Comment:Auto resulted.Specimen (Source) Anatomical Location / LateralityCollection Method / VolumeCollection Time Received TimeBloodVenous blood specimen / Zaiijlt2502/22/2025 11:49 AM EDT 02/22/2025 11:55 AM EDT Narrative Authorizing ProviderResult TypeResult StatusFajuan m HAMMOND BLOOD ORDERABLES Final ResultPerforming OrganizationAddressCity/State/ZIP CodePhone Number [facility] ([facility]) [address] [place] [address] * (ABNORMAL) Protime-INR (02/22/2025 11:49 AM EDT) Only the most recent of2 resultswithin the time period is included. ComponentValueRef RangeTest MethodAnalysis TimePerformed AtPathologist Signature Nrbaxhl64.9(H)12.3 - 14.8 Hzocxot7902/22/2025 2:35 PM [facility] [[email or web address] LAB ([place])INR1.47(H)0.90 - 1.10002/22/2025 2:35 PM [email or web address] LAB ([facility]) Comment: [facility] RECOMMENDED INR FOR WARFARIN THERAPY CONDITION ?INR PROPHYLAXIS OF VENOUS THROMBOSIS ? 2-3 (HIGH-RISK SURGERY) TREATMENT OF VENOUS THROMBOSIS ? 2-3 TREATMENT OF PULMONARY EMBOLISM ?2-3 PREVENTION OF SYSTEMIC EMBOLISM: ? 2-3 ?ACUTE MYOCARDIAL INFARCTION ?TISSUE HEART VALVES ?VALVULAR HEART DISEASE ?ATRIAL FIBRILLATION ?RECURRENT SYSTEMIC EMBOLISM MECHANICAL HEART VALVE ? 2.5-3.5 FROM: ORAL ANTICOAGULANTS. ??MECHANISM OF ACTION, CLINICAL EFFECTIVENESS, AND OPTIMAL THERAPEUTIC RANGE. ??CHEST 1995;108:231S-246S. Specimen (Source)Anatomical Location / LateralityCollection Method / Volume Collection TimeReceived TimeBloodVenous blood specimen / UnknownArterial Line / Nzvxnyu7702/22/2025 11:49 AM EDT02/22/2025 11:54 AM EDT Narrative Authorizing ProviderResult TypeResult StatusAutumn Linder MDLAB BLOOD ORDERABLES Final ResultPerforming OrganizationAddressCity/State/ZIP CodePhone Number [facility]) [address] [place], [place] [id number] * (ABNORMAL) POCT glucose meter (02/22/2025 11:34 AM EDT) Only the most recent of2 resultswithin the time period is included. ComponentValueRef RangeTest MethodAnalysis TimePerformed AtPathologist Signature Glucose HWX486(H)70 - 105 mg/dL02/22/2025 11:44 AM EDTWINSL[facility]) Comment:jmyyuyc6Maqnakkr (Source)Anatomical Location / LateralityCollection Method / VolumeCollection TimeReceived TimeBloodCapillary blood specimen / Bsnozbw1802/22/2025 11:34 AM EDT02/22/2025 11:44 AM EDT Narrative [facility]) - 02/22/2025 11:44 AM EDT Waived Testing in the ED is performed under the ED CLIA certificate #[id number]. Authorizing ProviderResult TypeResult StatusFajuan m HAMMOND BLOOD ORDERABLES Final ResultPerforming OrganizationAddressCity/State/ZIP CodePhone Number [facility]) [address] [place], [place] [id number] * Prepare RBC: 1 Units (02/22/2025 7:31 AM EDT)ComponentValueRef RangeTest MethodAnalysis TimePerformed AtPathologist SignaturePRODUCT [id number] BLOOD BANKUnit [id number]-TDJDH BLOOD BANKUnit [facility] BLOOD B[facility] Unit RhPOSUNM PSYCHIATRIC CENTER BLOOD BANKCrossmatch InterpretationCOMSIERRA VISTA HOSPITAL BLOOD BANKDispense StatusTRUNM PSYCHIATRIC CENTER BLOOD BANKBlood Expiration [id number] BLOOD BANKProduct Blood Qubm6804SLLP BLOOD BANKUnit Txcbrs059oXVPOK BLOOD BANKSpecimen (Source) Anatomical Location / LateralityCollection Method / VolumeCollection Time Received PjkoXhorr31/25/2025 7:31 AM EDT Narrative Authorizing ProviderResult TypeResult StatusFajuan m Hernandez [facility] PRODUCT ORDERABLESFinal ResultPerforming OrganizationAddressCity/State/ZIP CodePhone Number [facility] * Type and screen (02/22/2025 7:07 AM EDT)ComponentValueRef RangeTest Method Analysis TimePerformed AtPathologist SignatureABO HxauqnhqU39/25/2025 8:29 AM [facility] BLOOD BANKRh VxfbUUX7402/22/2025 8:29 AM [facility] BLOOD BANKAb ScrnNEG 02/22/2025 8:29 AM [facility] BLOOD BANKSpecimen (Source)Anatomical Location / LateralityCollection Method / VolumeCollection TimeReceived TimeBloodVenous blood specimen / UnknownVenipuncture / Zvllnwf2602/22/2025 7:07 AM EDT02/22/2025 7:11 AM EDT Narrative Authorizing ProviderResult TypeResult StatusSuleiman Corcoran [facility] BLOOD BANK TEST ORDERABLESFinal ResultPerforming OrganizationAddressCity/State/ZIP CodePhone Number [facility] * (ABNORMAL) Hepatic function panel (02/22/2025 7:00 AM EDT)ComponentValueRef RangeTest MethodAnalysis TimePerformed AtPathologist SignatureTotal Bilirubin 4.8(H)0.3 - 1.0 mg/dL02/22/2025 11:47 AM [facility] [[email or web address] LAB ([facility]) Bilirubin, Direct1.1(H)0 - 0.2 mg/dL02/22/2025 11:47 AM [email or web address] LAB ([facility])Alkaline Ttjqwsmherv1617 - 104 U/L02/22/2025 11:47 AM [email or web address] LAB ([facility])LDO9121 - 39 U/L02/22/2025 11:47 AM [email or web address] LAB ([facility]) ALT (SGPT)307 - 52 U/L02/22/2025 11:47 AM [email or web address] LAB ([facility])Total Protein6.16.0 - 8.3 g/dL02/22/2025 11:47 AM [email or web address] ([facility]) Albumin4.03.5 - 5.7 g/dL02/22/2025 11:47 AM [email or web address] ([facility]) Specimen (Source)Anatomical Location / LateralityCollection Method / Volume Collection TimeReceived TimeBloodVenous blood specimen / Cljwcoq8002/22/2025 7:00 AM EDT02/22/2025 7:12 AM EDT Narrative Authorizing ProviderResult TypeResult StatusCalderon HAMMOND BLOOD ORDERABLES Final ResultPerforming OrganizationAddressCity/State/ZIP CodePhone Number [facility]) [address] [place] [address] * (ABNORMAL) High Sensitivity Troponin I (02/22/2025 6:58 AM EDT) Only the most recent of7 resultswithin the time period is included. ComponentValueRef RangeTest MethodAnalysis TimePerformed AtPathologist Signature High Sensitivity Troponin I27(H)<20 ng/L02/22/2025 7:30 AM [facility] [[email or web address]] [facility] ([facility])Specimen (Source)Anatomical Location / LateralityCollection Method / VolumeCollection TimeReceived TimeBloodVenous blood specimen / Unknown Venipuncture / Ppzlice3102/22/2025 6:58 AM EDT02/22/2025 7:30 AM EDT Narrative Authorizing ProviderResult TypeResult StatusSuleiman HAMMOND BLOOD ORDERABLESFinal ResultPerforming OrganizationAddressCity/State/ZIP CodePhone Number [facility]) [address] [place] [address] * (ABNORMAL) CBC auto differential (02/22/2025 6:58 AM EDT) Only the most recent of2 resultswithin the time period is included. ComponentValueRef RangeTest MethodAnalysis TimePerformed AtPathologist Signature Auto WBC10.73(H)4.00 - 10.60 10*3/uL02/22/2025 7:10 AM [facility] [[email or web address]] LAB ([facility])RBC4.554.20 - 5.70 10*6/uL02/22/2025 7:10 AM [facility] [[email or web address] LAB ([facility])Txyvkhbtmu92.013.0 - 17.0 g/dL02/22/2025 7:10 AM [facility] [[email or web address] LAB ([facility])Odwfjgxbnp62.539.0 - 50.0 %02/22/2025 7:10 AM [facility] [[email or web address] ([facility])MCV93.482.0 - 98.0 fL02/22/2025 7:10 AM [facility] [[email or web address] LAB ([facility])MCH 30.827.0 - 33.0 pg02/22/2025 7:10 AM [facility] [[email or web address] LAB ([facility])MCHC32.932.0 - 35.0 g/dL02/22/2025 7:10 AM [facility] [[email or web address] ([facility])RDW15.9(H)11.5 - 15.0 % 02/22/2025 7:10 AM [facility] [[email or web address] ([facility])Neutrophils %81.9(H)40.0 - 72.0 %02/22/2025 7:10 AM [facility] [[email or web address] ([facility])Lymphocytes %10.6(L)20.0 - 45.0 %02/22/2025 7:10 AM [facility] [[email or web address] ([facility])Monocytes %6.85.0 - 12.0 % 02/22/2025 7:10 AM [facility] [[email or web address] ([facility])Eosinophils %0.00.0 - 6.0 % 02/22/2025 7:10 AM [facility] [[email or web address] ([facility])Basophils %0.20.0 - 1.0 % 02/22/2025 7:10 AM [facility] [[email or web address] ([facility])Neutrophils Absolute8.79(H)1.60 - 7.60 10*3/uL02/22/2025 7:10 AM [facility] [[email or web address] ([facility])Lymphocytes Absolute1.14(L)1.20 - 4.00 10*3/uL02/22/2025 7:10 AM [facility] [[email or web address] ([facility])Monocytes Absolute0.730.10 - 1.00 10*3/uL02/22/2025 7:10 AM [facility] [[email or web address] ([facility])Eosinophils Absolute0.000.00 - 0.50 10*3/uL02/22/2025 7:10 AM [facility] [[email or web address] ([facility])Basophils Absolute0.020.00 - 0.20 10*3/uL 02/22/2025 7:10 AM [facility] [[email or web address] ([facility])Larpoouvm064331 - 400 10*3/uL 02/22/2025 7:10 AM [facility] [[email or web address] ([facility])nRBC %0.00 %02/22/2025 7:10 AM [facility] [[email or web address] ([facility])Immature Granulocytes %0.50.0 - 1.0 %02/22/2025 7:10 AM [facility] [[email or web address] ([facility])Immature Granulocytes Absolute0.050.00 - 0.20 10*3/uL02/22/2025 7:10 AM [facility] [[email or web address] ([facility])Specimen (Source) Anatomical Location / LateralityCollection Method / VolumeCollection Time Received TimeBloodVenous blood specimen / UnknownVenipuncture / Unknown 02/22/2025 6:58 AM EDT02/22/2025 7:10 AM EDT Narrative Authorizing ProviderResult TypeResult StatusKyu Irena Corcoran [facility] BLOOD ORDERABLESFinal ResultPerforming OrganizationAddressCity/State/ZIP CodePhone Number [facility] ([facility]) [address] [place] [address] * CT abdomen pelvis wo IV contrast (02/21/2025 11:54 AM EDT)Anatomical Region LateralityModalityBody, Pelvis, AbdomenComputed TomographySpecimen (Source) Anatomical Location / LateralityCollection Method / VolumeCollection Time Received Time02/21/2025 12:10 PM EDT Impressions 02/21/2025 12:19 PM EDT [...] as reasonably achievable. Electronically signed: Susana Miller. Authorizing ProviderResult TypeResult StatusSuleiman VALDOVINOS CT PROCEDURES Final Result * TSH3 Reflex to FT4 (02/18/2025 6:46 PM EDT)ComponentValueRef RangeTest Method Analysis TimePerformed AtPathologist SignatureTSH3.220.34 - 5.60 mIU/L 02/18/2025 8:07 PM EDT[facility] ([facility])Specimen (Source)Anatomical Location / LateralityCollection Method / VolumeCollection TimeReceived Time BloodVenous blood specimen / UnknownVenipuncture / Crqvmxr2002/18/2025 6:46 PM EDT02/18/2025 7:26 PM EDT Narrative Authorizing ProviderResult TypeResult StatusCarol Carter [facility] BLOOD ORDERABLES Final ResultPerforming OrganizationAddressCity/State/ZIP CodePhone Number [facility] ([facility]) [address] [place] [address] * (ABNORMAL) B-type natriuretic peptide (02/18/2025 6:46 PM EDT)ComponentValue Ref RangeTest MethodAnalysis TimePerformed AtPathologist ZuoersvblANV224(H)0 - 100 pg/mL02/18/2025 7:56 PM [facility] [[email or web address]] LAB ([facility])Specimen (Source) Anatomical Location / LateralityCollection Method / VolumeCollection Time Received TimeBloodVenous blood specimen / UnknownVenipuncture / Unknown 02/18/2025 6:46 PM EDT02/18/2025 7:26 PM EDT Narrative Authorizing ProviderResult TypeResult StatusEast [facility]LAB BLOOD ORDERABLES Final ResultPerforming OrganizationAddressCity/State/ZIP CodePhone Number [facility]) [address] [place], [place] [id number] * Lactic acid, plasma (02/18/2025 6:46 PM EDT)ComponentValueRef RangeTest Method Analysis TimePerformed AtPathologist SignatureLactate1.10.5 - 2.2 mmol/L 02/18/2025 7:46 PM [facility] [[email or web address] ([facility])Specimen (Source)Anatomical Location / LateralityCollection Method / VolumeCollection TimeReceived Time BloodVenous blood specimen / UnknownVenipuncture / Fflvdqg3402/18/2025 6:46 PM EDT02/18/2025 7:24 PM EDT Narrative Authorizing ProviderResult TypeResult StatusSt. [facility] BLOOD ORDERABLES Final ResultPerforming OrganizationAddressCity/State/ZIP CodePhone Number [facility]) [address] [place] [address] from Last 3 Months Insurance Advance Directives * Full Code (Latest Code Status on File) Date ActivatedDate InactivatedComments02/18/2025 6:59 PM03/05/2025 7:58 PM Care Teams Team MemberRelationshipSpecialtyStart DateEnd Date JuwanJalenDO [address] [place] [address] PCP - Xjebhlz01/3/22
--- OUTSIDE RECORDS SUMMARY | 2025-05-06 07:48 | XMS_ITS | CCD ---
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 Name Role Phone ANIBAL, DR KINGSLEY Mariee [...] CHUL Referring Unavailable Problems Active Problems Problem ClassificationProblemDateDocumented DateEpisodic/ChronicAcute and unspecified renal failure (2 sources)Acute kidney failure, unspecified; Translations: [Acute kidney failure, unspecified]Onset: 68-64-2139FovijevuIpfucsw dysrhythmias (5 sources)Unspecified atrial fibrillation; Translations: [Paroxysmal atrial fibrillation]Onset: 69-34-9451NsmpbguUcjhtuicly heart failure; nonhypertensive (4 sources)Acute systolic (congestive) heart failure; Translations: [Chronic systolic (congestive) heart failure]Onset: 41-76-8236YlcmeubJopcdzyh atherosclerosis and other heart disease (4 sources)Atherosclerotic heart disease of [place] coronary artery without angina pectoris; Translations: [Unstable angina]Onset: 96-03-5813Mbkqmfs Deficiency and other anemia (2 sources)Iron deficiency anemia secondary to blood loss (chronic); Translations: [Iron deficiency anemia secondary to blood loss (chronic)]Onset: 42-00-5291SqzwvpqPduonozgbm and other anemia (2 sources)Anemia, unspecified; Translations: [Anemia, unspecified]Onset: 32-85-9700NgplwndmIbvvnlomg hypertension (1 source)Essential (primary) hypertension; Translations: [Essential (primary) hypertension]Onset: 45-25-6303CtyjwzvEdssfmunxpfll symptoms and ill-defined conditions (3 sources)Retention of urine, unspecified; Translations: [Gross hematuria] Onset: 79-08-9903IqnbifnlWhaodjou; including migraine (1 source)Headache; including migraine; Translations: [HEADACHE UNSPECIFIED] Onset: 04-84-8663Dhjsffshqmv of prostate (2 sources)Benign prostatic hyperplasia without lower urinary tract symptoms; Translations: [Benign prostatic hyperplasia without lower urinary tract symptoms]Onset: 57-68-5734BidqhifUlkeysfciyhk with complications and secondary hypertension (2 sources)Hypertensive heart disease with heart failure; Translations: [Hypertensive heart disease with heartfailure]Onset: 67-77-0240UiasnkeAjupf aftercare (2 sources)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; Translations: [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]Onset: 14-57-6434JxqcbaesAgqpy and ill-defined heart disease (2 sources)Cardiomegaly; Translations: [Cardiomegaly]Onset: 73-99-2562Nwruvkt Other circulatory disease (2 sources)Orthostatic hypotension; Translations: [Orthostatic hypotension] Onset: 59-26-2001VdwmagapUicsr diseases of kidney and ureters (2 sources)Unspecified hydronephrosis; Translations: [Unspecified hydronephrosis]Onset: 87-72-2033FrbymbdwAphyt gastrointestinal disorders (1 source)Chronic idiopathic constipation; Translations: [Chronic idiopathic constipation]Onset: 33-93-0003BwcoileSosvb gastrointestinal disorders (2 sources)Bariatric surgery status; Translations: [Bariatric surgery status] Onset: 56-03-4832LqugvnetNtepukhohzv injury; contusion (2 sources)Contusion of abdominal wall, subsequent encounter; Translations: [Contusion of abdominal wall, subsequent encounter]Onset: 21-09-4213Xfbznitf Syncope (3 sources)Syncope and collapse; Translations: [Syncope and collapse]Onset: 36-50-2821Ahrmbffx Past or Other Problems Problem ClassificationProblemDateDocumented DateEpisodic/ChronicOther aftercare (1 source)Other emt intermediate (current) drug therapy; Translations: [OTH PENITENTIARY CURRENT DRUG THERAPY]Onset: 58-52-8451NmufrcvuJdhat nervous system disorders (4 sources)Pruitt's palsy; 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 Can we make sure he has an ECHO with a visit following in May? Thank [facility]36on 19-48-808610X thought cardiac rehab wanted clearance [facility]36Pt was seen by scott today, he needs ablation, do you want to extend sick leave? Ablations are booking out to Jul. Also cardiac rehab wants to know if he can start.NormalFlower HospitalFollow-Upon 03-23-2025 Follow-UpNormalUniversity of St. [facility] HospitalTelephoneon 03-23-[address] [facility] HospitalForenown health – [facility]-Upon 03-22-[address] [facility] HospitalOrders Onlyon 66-08-5186Jqlyyo OnlyNormalUniversity of St. [facility] Station HospitalFowestborough behavioral healthcare hospitalUpon 61-26-5803Yfigpr-Up NormalUnProMedica Memorial Hospital36on 66-94-984587Qxy, extend until he see's Scott. When I saw him, he told me he couldn't walk the grocery store 2 days in a row without feeling fatigued and he works at [employer].[facility]36on 53-42-459478XN INFORMED HE STATES HE WILL BE IN 03/12/25 IN THE MORNINGNormalUniversMercy Health Lorain Hospital36NormalUniThe Christ HospitalDocumentationon 03-11-2025 DocumentationNormalUnikell [facility] HospitalOutside Recordson 00-30-5112Oljpavr [id number]#1.00OTGTIFF [facility] HospitalOutside Records [id number]#1.00OTGTIFFMarietta Memorial Hospital Hospital Outside [id number]#1.00OTGTIFFBarnesville HospitalTelephoneon 15-38-6610BgkygcwjfLnznwmLbhilflbyd of [facility] Wplfkz73fh *Stop aspirin *Have lab work done in 2 weeksNormalUniThe Christ Hospital36on 63-23-161758WqrceoPvchthkwnt of [facility] CenterOutside Recordson 37-24-9620Piinrgc [id number]#1.00OTGTVERITO [facility] HospitalTelephoneon 62-49-3469VbohidqazNnugwqIpetlbxkoi of [facility] Kxwldp40qo 01-88-532145Kog patient is Moderately Stable - Low risk of patient condition declining or worsening The patient's goals for the shift include Comfort and rest The clinical goals for the shift include VSS and safetyNormalUniversMercy Health Lorain HospitalCBCon 65-82-6604Drrjwmousec distribution width (RBC) [Ratio]16.3 %High11.5-15.0UnProMedica Memorial HospitalComment on above: Performed By: #### [id number] ####[facility] ([facility])[address] [place], [place] [address]MSUYFSPDGNF MEAN CORPUSCULAR HEMOGLOBIN CONCENTRATION (G/DL) BY DJAKUAZZG89.5 g/zXCvcdip87.0-35.0UnProMedica Memorial HospitalComment on above:Performed By: #### [id number] ####[facility] ([facility])[address] [place], [place] [address]Enrauqxeoq (Bld) [Volume fraction]24.2 %Low39.0-50.0 Flower HospitalComment on above:Performed By: #### [id number] ####[facility] ([facility])[address] [place], [place] [address]Ascdzlkazt (Bld) [Mass/Vol]8.1 g/dLLow13.0-17.0UnProMedica Memorial HospitalComment on above:Performed By: #### [id number] ####[facility] [facility], [place] [address]GLB (RBC) [Entitic mass]30.1 snZzovag21.0-33.0UnProMedica Memorial HospitalComment on above:Performed By: #### [id number] ####[facility])[address] [address]HKY (RBC) [Entitic vol] 90.0 lOHegned72.0-98.0UnProMedica Memorial HospitalComment on above: Performed By: #### [id number] ####[facility] ([facility])[address] [address]ZPHSAPMHH (10*3/UL) IN BLOOD AUTOMATED EJFNN541 10*3/uLNormal 150-400UnProMedica Memorial HospitalComment on above:Performed By: #### [id number] ####[facility] ([facility])[address] [address]SAY (Bld) [#/Vol]2.69 10*6/uLLow4.20-5.70UnProMedica Memorial HospitalComment on above:Performed By: #### [id number] ####[facility] ([facility])[address] [address]CWM (Bld) [#/Vol]7.45 10*3/uLNormal4.00-10.60UnProMedica Memorial HospitalComment on above:Performed By: #### [id number] ####[facility] ([facility])[address] [place] [address]NCEVPLZLFFVCG METABOLIC PANELon 21-73-7658Csryiid [Mass/Vol]3.0 g/dLLow3.5-5.7UnProMedica Memorial HospitalComment on above:Performed By: #### [id number] ####[facility] ([facility])[address] [address]AZL [Catalytic activity/Vol]60 U/L Zbxwrp05-343UmuetapmxfProMedica Memorial HospitalComment on above:Performed By: #### [id number] ####[facility] ([facility])[address] [place] [address]YFQ [Catalytic activity/Vol]15 U/LNormal7-52UnProMedica Memorial Hospital Comment on above:Performed By: #### [id number] ####[facility] ([facility])[address] [place], [place] [address]Furax gap [Moles/Vol]9 mmol/LNormal7-20UnProMedica Memorial HospitalComment on above:Performed By: #### [id number] ####[facility] ([facility])[address] [place] [address]VZI [Catalytic activity/Vol]16 U/ZRylzzj86-94EeozurgcpcProMedica Memorial HospitalComment on above:Performed By: #### [id number] ####[facility] ([facility])[address] [place], [place] [address]Ptpkffplr [Mass/Vol]3.8 mg/dLHigh0.3-1.0UnProMedica Memorial HospitalComment on above:Performed By: #### [id number] ####[facility] ([facility])[address] [place], [place] [address]Kwtwjlt [Mass/Vol]8.1 mg/dLLow8.6-10.3 Flower HospitalComment on above:Performed By: #### [id number] ####[facility] ([facility])[address] [place], [place] [address]Poqltunq [Moles/Vol]103 mmol/MVzveuq67-423YbzkzwgppoProMedica Memorial HospitalComment on above:Performed By: #### [id number] ####[facility] ([facility])[address] [place], [place] [address]JD4 [Moles/Vol]24 mmol/VJhhlpe08-28QndncgiwvqProMedica Memorial HospitalComment on above:Performed By: #### [id number] ####[facility] ([facility])[address] [place], [place] [address]Uvrnyckgfi [Mass/Vol]0.73 mg/dLNormal 0.70-1.30UnProMedica Memorial HospitalComment on above:Performed By: #### [id number] ####[facility] ([facility])[address] [place], [place] [address]YEDNUTWMQR FILTRATION RATE ML/MIN/1.73 SQ M.HFFQYJETR658.5 mL/min/1.73m*2Normal>60.0 [facility] HospitalComment on above:Result Comment: [facility]???s estimated glomerular filtration rate (eG FR) will no longer include consideration of race [...] potential consequences that do not disproportionately affect anyone group of individuals. Performed By: #### [id number] ####[facility] ([facility])[address] [place], [place] [address]Qjnxlnv [Mass/Vol]85 mg/lEUmxiqz44-683BucxaftkwmProMedica Memorial HospitalComment on above:Performed By: #### [id number] ####[facility] ([facility])[address] [place], [place] [address]Gjjmyybjy [Moles/Vol]3.9 mmol/LNormal 3.5-5.1UnProMedica Memorial HospitalComment on above:Performed By: #### [id number] ####[facility] ([facility])[address] [place], [place] [address]Veipbhu [Mass/Vol]5.2 g/dLLow6.0-8.3UnProMedica Memorial HospitalComment on above: Performed By: #### [id number] ####[facility] ([facility])[address] [place], [place] [address]Hbgawk [Moles/Vol]132 mmol/FAvw982-508JhyziqzcirProMedica Memorial HospitalComment on above:Performed By: #### [id number] ####[facility])[address] [place], [place] [address]Ekjn nitrogen [Mass/Vol]13 mg/dLNormal 7-25UnProMedica Memorial HospitalComment on above:Performed By: #### [id number] ####[facility] ([facility])[address], [place] [address]ROES NITROGEN/CREATININE (MASS RATIO) IN SER/PLAS17.8NormalUniversMercy Health Lorain HospitalComment on above:Performed By: #### [id number] ####[facility] ([facility])[place] [address]XNvh 34-23-2631MJOtotcfPhnfboqqnw of [facility] CenterMAGNESIUMon 48-60-3557Uuluykbjj [Mass/Vol]1.9 mg/dLNormal 1.9-2.7UnProMedica Memorial HospitalComment on above:Performed By: #### [id number] ####[facility] ([facility])[address] [address] PHOSPHORUSon 58-17-7727Ubggwkkut [Mass/Vol]3.0 mg/dLNormal2.5-5.0UnProMedica Memorial HospitalComment on above:Performed By: #### [id number] ####[facility] ([facility])[address] [place], [place] [address]hi 26-89-392486Rkopfv [facility]30The patient is Moderately Stable - Low risk of patient condition declining or worsening The patient's goals for the shift include comfort The clinical goals for the shift include VSS, safetyNormalUniThe Christ HospitalANTI-XA (HEPARIN LEVEL)on 47-40-4691YYZHACO UNFRACTIONATED (U/ML) IN PPP BY CHROMOGENIC METHOD0.34 IU/mLNormal0.3-0.7UnProMedica Memorial HospitalComment on above:Result Comment: Rivaroxaban and Apixaban will interfere with the anti Xa assay used to monitor UFH and LMWH.Performed By: #### [id number] ####[facility] ([facility])[address] [place], [place] [address]VWDOEWN UNFRACTIONATED (U/ML) IN PPP BY CHROMOGENIC METHOD0.30 IU/mLNormal0.3-0.7 [facility] HospitalComment on above:Result Comment: Rivaroxaban and Apixaban will interfere with the anti Xa assay used to monitor UFH and LMWH. Performed By: #### [id number] ####[facility] ([facility])[address] [place] [address]UGUko 11-16-5139Xjtgjhmxbdx distribution width (RBC) [Ratio] 16.3 %High11.5-15.0UnProMedica Memorial HospitalComment on above:Performed By: #### [id number] ####[facility] ([facility])[address] [place] [address]IPDGCMJBQMB MEAN CORPUSCULAR HEMOGLOBIN CONCENTRATION (G/DL) BY AUTOMATED 34.1 g/jRFxdapl07.0-35.0UnProMedica Memorial HospitalComment on above: Performed By: #### [id number] ####[facility] ([facility])[address] [place] [address]Nmhsxjnvgx (Bld) [Volume fraction]22.6 %Low39.0-50.0 [facility] HospitalComment on above:Performed By: #### [id number] ####[facility] ([facility])[address] [place] [address]Tvzotxpqdw (Bld) [Mass/Vol]7.7 g/dLLow13.0-17.0UnProMedica Memorial HospitalComment on above:Performed By: #### [id number] ####[facility] ([facility])[address] [place] [address]CDX (RBC) [Entitic mass]30.6 dxDdlhxf42.0-33.0UnProMedica Memorial HospitalComment on above:Performed By: #### [id number] ####[facility] ([facility])[address] [place] [address]OMH (RBC) [Entitic vol] 89.7 qQIydepe56.0-98.0UnProMedica Memorial HospitalComment on above: Performed By: #### [id number] ####[facility] ([facility])[address] [place] [address]SEWHCTFYA (10*3/UL) IN BLOOD AUTOMATED [id number] 10*3/uLNormal 150-400UnProMedica Memorial HospitalComment on above:Performed By: #### [id number] ####[facility] ([facility])[address] [place] [address]XYQ (Bld) [#/Vol]2.52 10*6/uLLow4.20-5.70UnProMedica Memorial HospitalComment on above:Performed By: #### [id number] ####[facility] ([facility])[address] [place] [address]ZQS (Bld) [#/Vol]5.41 10*3/uLNormal4.00-10.60UnProMedica Memorial HospitalComment on above:Performed By: #### [id number] ####[facility] ([facility])[address] [place], [place] [address]VRVSEKLIEVTHN METABOLIC PANELon 82-88-7190Agktbin [Mass/Vol]2.8 g/dLLow3.5-5.7UnProMedica Memorial HospitalComment on above:Performed By: #### [id number] ####[facility] ([facility])[address] [place], [place] [address]TVH [Catalytic activity/Vol]55 U/L Lmlolb81-319BgyxdkfbnfProMedica Memorial HospitalComment on above:Performed By: #### [id number] ####[facility] ([facility])[address] [place], [place] [address]QVT [Catalytic activity/Vol]17 U/LNormal7-52UnProMedica Memorial Hospital Comment on above:Performed By: #### [id number] ####[facility] ([facility])[address] [place], [place] [address]Jiqeo gap [Moles/Vol]8 mmol/LNormal7-20UnProMedica Memorial HospitalComment on above:Performed By: #### [id number] ####[facility] ([facility])[address] [place], [place] [address]KQT [Catalytic activity/Vol]17 U/VRzynjc70-22YnbnwnlytpProMedica Memorial HospitalComment on above:Performed By: #### [id number] ####[facility] ([facility])[address] [place], [place] [address]Hiakjtqjz [Mass/Vol]3.7 mg/dLHigh0.3-1.0UnProMedica Memorial HospitalComment on above:Performed By: #### [id number] ####[facility] ([facility])[address] [address]Eaczndn [Mass/Vol]7.7 mg/dLLow8.6-10.3 [facility] HospitalComment on above:Performed By: #### [id number] ####[facility] ([facility])[address] [place] [address]Fxnkzevz [Moles/Vol]103 mmol/ZCneeqa50-222TuyjayrmvdProMedica Memorial HospitalComment on above:Performed By: #### [id number] ####[facility] ([facility])[address] [address]JA7 [Moles/Vol]25 mmol/RLektdv48-35MsdpxxheqcProMedica Memorial HospitalComment on above:Performed By: #### [id number] ####[facility] ([facility])[address] [place] [address]Utgejlbvud [Mass/Vol]0.66 mg/dLLow 0.70-1.30UnProMedica Memorial HospitalComment on above:Performed By: #### [id number] ####[facility] ([facility])[address] [place] [address]XMILQCRLDO FILTRATION RATE ML/MIN/1.73 SQ M.GHOFPVGHC263.7 mL/min/1.73m*2Normal>60.0 [facility] HospitalComment on above:Result Comment: [facility]???s estimated glomerular filtration rate (eG FR) will no longer include consideration of race [...] potential consequences that do not disproportionately affect anyone group of individuals. Performed By: #### [id number] ####[facility] ([facility])[address] [place], [place] [address]Fcfxzdx [Mass/Vol]86 mg/oTIgpkxn76-344YbxkwuigqyProMedica Memorial HospitalComment on above:Performed By: #### [id number] ####[facility] ([facility])[address] [place], [place] [address]Mblthloev [Moles/Vol]3.8 mmol/LNormal 3.5-5.1UnProMedica Memorial HospitalComment on above:Performed By: #### [id number] ####[facility] ([facility])[address] [place], [place] [address]Nofxhra [Mass/Vol]4.9 g/dLLow6.0-8.3UnProMedica Memorial HospitalComment on above: Performed By: #### [id number] ####[facility] ([facility])[address] [place], [place] [address]Dhmafg [Moles/Vol]132 mmol/GMpt681-231JhdthuurpaProMedica Memorial HospitalComment on above:Performed By: #### [id number] ####[facility] ([facility])[address] [place], [place] [address]Hndj nitrogen [Mass/Vol]15 mg/dLNormal 7-25UnProMedica Memorial HospitalComment on above:Performed By: #### [id number] ####[facility] ([facility])[address] [place], [place] [address]YNAL NITROGEN/CREATININE (MASS RATIO) IN SER/PLAS22.7NormalUniversMercy Health Lorain HospitalComment on above:Performed By: #### [id number] ####[facility] ([facility])[address] [place], [place] [address]ZCH HEART CORONARY W IV CONTRAST W OR WO FFRCTon 70-21-1289FHO HEART CORONARY W IV CONTRAST W OR WO FFRCTInvalid Interpretation CodeUnProMedica Memorial HospitalMAGNESIUMon 03-04-2025 Magnesium [Mass/Vol]2.0 mg/dLNormal1.9-2.7UnProMedica Memorial Hospital Comment on above:Performed By: #### [id number] ####[facility])[address] [place] [address]FTVKVMPPdx 93-22-9827SLDCUIVNAtyso sinus rhythem NormalUnProMedica Memorial HospitalPHOSPHORUSon 16-86-1117Aauhpbypy [Mass/Vol]2.7 mg/dLNormal2.5-5.0UnProMedica Memorial HospitalComment on above:Performed By: #### [id number] ####[facility] ([facility])[address] [place] [address]jm 72-14-497758KduyrgIeyobvpqvo of [facility] ANESon 45-99-3173XQAKLtflpuLdavmliavp of [facility] CenterANTI-XA (HEPARIN LEVEL)on 13-97-3814PFKQMGW UNFRACTIONATED (U/ML) IN PPP BY CHROMOGENIC METHOD 0.23 IU/mLLow0.3-0.7UnProMedica Memorial HospitalComment on above:Result Comment: Rivaroxaban and Apixaban will interfere with the anti Xa assay used to monitor UFH and LMWH.Performed By: #### [id number] ####[facility] ([facility])[address] [place] [place], [place] [address]FORVRZM UNFRACTIONATED (U/ML) IN PPP BY CHROMOGENIC METHOD0.31 IU/mLNormal0.3-0.7UnProMedica Memorial Hospital Comment on above:Result Comment: Rivaroxaban and Apixaban will interfere with the anti Xa assay used to monitor UFH and LMWH.Performed By: #### [id number] ####[facility] ([facility])[address] [place], [place] [address]CGMOvq 76-31-2134TONLUEVVI PARTIAL THROMBOPLASTIN TIME IN PPP BY COAGULATION ASSAY41.8 WudoztpShiu75.0-35.0UnProMedica Memorial HospitalComment on above:Order Comment: Baseline aPTT before initiating heparin infusion.Result Comment: Clinical significance of the APTT is questionable in the presence of heparin. Performed By: #### [id number] ####[facility] ([facility])[address] [place] [address]WPXaj 65-70-6696Yrljrmuwhxp distribution width (RBC) [Ratio] 16.4 %High11.5-15.0UnProMedica Memorial HospitalComment on above:Performed By: #### [id number] ####[facility] ([facility])[address] [place] [address]WHIJKNJBOXP MEAN CORPUSCULAR HEMOGLOBIN CONCENTRATION (G/DL) BY AUTOMATED 34.0 g/lMZarlty57.0-35.0UnProMedica Memorial HospitalComment on above: Performed By: #### [id number] ####[facility] ([facility])[address] [place] [address]Ofyvfqmtlc (Bld) [Volume fraction]24.1 %Low39.0-50.0 [facility] HospitalComment on above:Performed By: #### [id number] ####[facility] ([facility])[address]riel[place], [place] [address]Gsxajhakrf (Bld) [Mass/Vol]8.2 g/dLLow13.0-17.0UnProMedica Memorial HospitalComment on above:Performed By: #### [id number] ####[facility] ([facility])[address] [place] [address]WTD (RBC) [Entitic mass]30.5 esTixjpr92.0-33.0UnProMedica Memorial HospitalComment on above:Performed By: #### [id number] ####[facility] ([facility])[address] [place], [place] [address]FZM (RBC) [Entitic vol] 89.6 aIKrzmek12.0-98.0UnProMedica Memorial HospitalComment on above: Performed By: #### [id number] ####[facility] ([facility])[address] [facility] [place] [address]AUDWZQOLW (10*3/UL) IN BLOOD AUTOMATED BXCCW407 10*3/uLNormal 150-400UnProMedica Memorial HospitalComment on above:Performed By: #### [id number] ####[facility] ([facility])[address] [place] [address]UCW (Bld) [#/Vol]2.69 10*6/uLLow4.20-5.70UnProMedica Memorial HospitalComment on above:Performed By: #### [id number] ####[facility] ([facility])[address] [place] [address]PUQ (Bld) [#/Vol]5.84 10*3/uLNormal4.00-10.60UnProMedica Memorial HospitalComment on above:Performed By: #### [id number] ####[facility] ([facility])[address] [place], [place] [address]WBVPJXMELKWOO METABOLIC PANELon 90-00-0075Abzvmza [Mass/Vol]2.9 g/dLLow3.5-5.7UnProMedica Memorial HospitalComment on above:Performed By: #### [id number] ####[facility] ([facility])[address] [place], [place] [address]FCC [Catalytic activity/Vol]55 U/L Amylrj11-639GilrcydjwzProMedica Memorial HospitalComment on above:Performed By: #### [id number] ####[facility] ([facility])[address] [place], [place] [address]WKO [Catalytic activity/Vol]18 U/LNormal7-52UnProMedica Memorial Hospital Comment on above:Performed By: #### [id number] ####[facility] ([facility])[address] [place], [place] [address]Kgsxx gap [Moles/Vol]9 mmol/LNormal7-20UnProMedica Memorial HospitalComment on above:Performed By: #### [id number] ####[facility] ([facility])[address] [place], [place] [address]GMO [Catalytic activity/Vol]23 U/QTcpyix44-17KeubcigfmyProMedica Memorial HospitalComment on above:Performed By: #### [id number] ####[facility] ([facility])[address] [place], [place] [address]Taasqiiiv [Mass/Vol]4.0 mg/dLHigh0.3-1.0UnProMedica Memorial HospitalComment on above:Performed By: #### [id number] ####[facility] ([facility])[address] [place] [address]Ngothtl [Mass/Vol]7.8 mg/dLLow8.6-10.3 [facility] HospitalComment on above:Performed By: #### [id number] ####[facility] ([facility])[address] [place] [address]Lzqpceld [Moles/Vol]102 mmol/WGxkiac62-589SvthvrzuwpProMedica Memorial HospitalComment on above:Performed By: #### [id number] ####[facility] ([facility])[address] [place] [address]YZ0 [Moles/Vol]25 mmol/HDyeqch74-24LtyucgwowcProMedica Memorial HospitalComment on above:Performed By: #### [id number] ####[facility] ([facility])[address] [place] [address]Jzwwnjnedu [Mass/Vol]0.69 mg/dLLow 0.70-1.30UnProMedica Memorial HospitalComment on above:Performed By: #### [id number] ####[facility] ([facility])[address] [place] [address]JKWJLHSHOL FILTRATION RATE ML/MIN/1.73 SQ M.HPQJSGPAO133.3 mL/min/1.73m*2Normal>60.0 [facility] HospitalComment on above:Result Comment: [facility]???s estimated glomerular filtration rate (eG FR) will no longer include consideration of race [...] potential consequences that do not disproportionately affect anyone group of individuals. Performed By: #### [id number] ####[facility] ([facility])[address] [place], [place] [address]Ddfudql [Mass/Vol]88 mg/mMRaftqr00-659LlprimcqrvProMedica Memorial HospitalComment on above:Performed By: #### [id number] ####[facility] ([facility])[address] [place], [place] [address]Ktrlsfaal [Moles/Vol]4.0 mmol/LNormal 3.5-5.1UnProMedica Memorial HospitalComment on above:Performed By: #### [id number] ####[facility] ([facility])[address] [place], [place] [address]Muapqzs [Mass/Vol]5.1 g/dLLow6.0-8.3UnProMedica Memorial HospitalComment on above: Performed By: #### [id number] ####[facility] ([facility])[address] [place], [place] [address]Lophbj [Moles/Vol]132 mmol/MJtw105-538EmoeszzgrgProMedica Memorial HospitalComment on above:Performed By: #### [id number] ####[facility] ([facility])[address] [place], [place] [address]Glgl nitrogen [Mass/Vol]12 mg/dLNormal 7-25UnProMedica Memorial HospitalComment on above:Performed By: #### [id number] ####[facility] ([facility])[address] [place], [place] [address]ITHV NITROGEN/CREATININE (MASS RATIO) IN SER/PLAS17.4NormalUniversMercy Health Lorain HospitalComment on above:Performed By: #### [id number] ####[facility] ([facility])[address] [place], [place] [address]DADAJVW LEVELon 00-70-6265LJIQURX (NG/ML) IN SER/PLAS0.6 ng/mLLow0.7-2UnProMedica Memorial HospitalComment on above:Performed By: #### [id number] ####[facility] ([facility])[address] [place], [place] [address]QNsh 81-63-2018PBMjuxeuJfohemcbzl of [facility] MAGNESIUMon 72-42-5388Tmserotmx [Mass/Vol]2.0 mg/dLNormal1.9-2.7UnProMedica Memorial HospitalComment on above:Performed By: #### [id number] ####[facility] ([facility])[address] [place], [place] [address]XGPGNSQGes 03-03-2025 NURSNOTENormalUniversity Suburban Community Hospital & Brentwood HospitalNURSNOTENormalUniversity Suburban Community Hospital & Brentwood HospitalNURSNOTENormalUniversity Suburban Community Hospital & Brentwood HospitalPHOSPHORUS on 40-68-7718Ozohgiqjk [Mass/Vol]2.9 mg/dLNormal2.5-5.0UnProMedica Memorial HospitalComment on above:Performed By: #### [id number] ####[facility] ([facility])[address] [place], [place] [address]TCYWTNAL COUNTon 53-53-7674IIZTIXABR (10*3/UL) IN BLOOD AUTOMATED GAILX428 10*3/xYLwhmwg193-876LtofyszikxProMedica Memorial HospitalComment on above:Performed By: #### [id number] ####[facility] ([facility])[address], [place] [address]ts 87-67-755341KbnxbhZwldvplhpmThe Christ HospitalANTI-XA (HEPARIN LEVEL)on 14-24-0074BHASXCR UNFRACTIONATED (U/ML) IN PPP BY CHROMOGENIC METHOD0.18 IU/mLLow0.3-0.7UnProMedica Memorial HospitalComment on above:Result Comment: Rivaroxaban and Apixaban will interfere with the anti Xa assay used to monitor UFH and LMWH.Performed By: #### [id number] ####[facility] ([facility])[address] [place], [place] [address]ODZSux 55-36-7005QYSERERDB PARTIAL THROMBOPLASTIN TIME IN PPP BY COAGULATION ASSAY39.7 DrysnckUwve19.0-35.0UnProMedica Memorial HospitalComment on above:Order Comment: Baseline aPTT before initiating heparin infusion.Result Comment: Clinical significance of the APTT is questionable in the presence of heparin. Performed By: #### [id number] ####[facility] ([facility])[address] [place], [place] [address]LDJOVKBYFYTMS METABOLIC PANELon 13-42-4634Lkarldr [Mass/Vol] 3.0 g/dLLow3.5-5.7UnProMedica Memorial HospitalComment on above:Performed By: #### [id number] ####[facility] ([facility])[address] [place] [address] ALP [Catalytic activity/Vol]59 U/EGiiidx76-735IxpukesmtxProMedica Memorial HospitalComment on above:Performed By: #### [id number] ####[facility] ([facility])[address] [place], [place] [address]PSS [Catalytic activity/Vol]20 U/L Normal7-52UnProMedica Memorial HospitalComment on above:Performed By: #### [id number] ####[facility] ([facility])[address] [place], [place] [address]Ewtli gap [Moles/Vol]7 mmol/LNormal7-20UnProMedica Memorial HospitalComment on above:Performed By: #### [id number] ####[facility] ([facility])[address] [place], [place] [address]GMD [Catalytic activity/Vol]21 U/BAkdrhi59-76HbpstxoofzProMedica Memorial HospitalComment on above:Performed By: #### [id number] ####[facility] ([facility])[address] [place], [place] [address]Cgdvrdxnh [Mass/Vol]4.3 mg/dLHigh 0.3-1.0UnProMedica Memorial HospitalComment on above:Performed By: #### [id number] ####[facility] ([facility])[address] [place], [place] [address]Stfvtuf [Mass/Vol]8.1 mg/dLLow8.6-10.3UnProMedica Memorial HospitalComment on above:Performed By: #### [id number] ####[facility] ([facility])[address] [place], [place] [address]Hmyuupzp [Moles/Vol]103 mmol/CAytitt54-645UzlzteksyvProMedica Memorial HospitalComment on above:Performed By: #### [id number] ####[facility] ([facility])[address] [place], [place] [address]RP7 [Moles/Vol]25 mmol/LNormal 21-31UnProMedica Memorial HospitalComment on above:Performed By: #### [id number] ####[facility] ([facility])[address] [place], [place] [address]Hltkuiadur [Mass/Vol]0.68 mg/dLLow0.70-1.30UnProMedica Memorial HospitalComment on above:Performed By: #### [id number] ####[facility] ([facility])[address] [place], [place] [address]KJDMTEYPAL FILTRATION RATE ML/MIN/1.73 SQ M.MBJIDXPHV697.7 mL/min/1.73m*2Normal>60.0UnProMedica Memorial HospitalComment on above: Result Comment: [facility]???s estimated glomerular filtration rate (eGFR) will [...] potential consequences that do not disproportionately affect anyone group of individuals.Performed By: #### [id number] ####[facility] ([facility])[address] [place], [place] [address]Inxbyuc [Mass/Vol]91 mg/gDPqrtht22-592DpikhnldsnProMedica Memorial HospitalComment on above:Performed By: #### [id number] ####[facility] ([facility])[address] [place], [place] [address]Rxarwkvwr [Moles/Vol]4.0 mmol/LNormal3.5-5.1UnProMedica Memorial HospitalComment on above:Performed By: #### [id number] ####[facility] ([facility])[address] [place] [address] Protein [Mass/Vol]5.3 g/dLLow6.0-8.3UnProMedica Memorial HospitalComment on above:Performed By: #### [id number] ####[facility] ([facility])[address] [place] [address]Avrkkn [Moles/Vol]131 mmol/SZsl442-882QwaqlqyethProMedica Memorial HospitalComment on above:Performed By: #### [id number] ####[facility] ([facility])[address] [place] [address]Jhid nitrogen [Mass/Vol]13 mg/dLNormal 7-25UnProMedica Memorial HospitalComment on above:Performed By: #### [id number] ####[facility] ([facility])[address] [place] [address]PAXJ NITROGEN/CREATININE (MASS RATIO) IN SER/PLAS19.1NormalUnProMedica Memorial HospitalComment on above:Performed By: #### [id number] ####[facility] ([facility])[address] [place] [address]EQGMPCTLUhc 30-99-7892Ebvryuhqx [Mass/Vol]2.0 mg/dLNormal1.9-2.7UnProMedica Memorial HospitalComment on above:Performed By: #### [id number] ####[facility] ([facility])[address] [place] [address]WHXSGQKOYWka 46-78-5438Cuunsmuxq [Mass/Vol]2.5 mg/dLNormal 2.5-5.0UnProMedica Memorial HospitalComment on above:Performed By: #### [id number] ####[facility] ([facility])[address] [place] [address]HGHOYRIO COUNTon 19-05-7627GAFINXAYY (10*3/UL) IN BLOOD AUTOMATED FGKEL843 10*3/uLNormal 150-400UnProMedica Memorial HospitalComment on above:Performed By: #### [id number] ####[facility] ([facility])[address] [place] [address] URINALYSISon 16-66-5965VFPLBTGYN, TOTAL PRESENCE IN URINENegativeNormalNegative [facility] HospitalComment on above:Order Comment: Microscopics not performed on urines with negative chemical reactions unless requested on original order.Performed By: #### [id number] ####[facility] ([facility])[address] [place] [address]Jscxnri (U)ClearNormalClearFlower HospitalComment on above:Order Comment: Microscopics not performed on urines with negative chemical reactions unless requested on original order. Performed By: #### [id number] ####[facility] ([facility])[address] [place] [address]Wrtgi (U)YellowNormalColorless, Yellow, Light-Yellow [facility] HospitalComment on above:Order Comment: Microscopics not performed on urines with negative chemical reactions unless requested on original order.Performed By: #### [id number] ####[facility] ([facility])[address] [facility] [place], [place] [address]QOEQIRJ (MG/DL) IN URINENormalNormalNormal [facility] HospitalComment on above:Order Comment: Microscopics not performed on urines with negative chemical reactions unless requested on original order.Performed By: #### [id number] ####[facility] ([facility])[address] [place] [address]DCJZYGDLFK PRESENCE IN URINENegativeNormalNegative [facility] HospitalComment on above:Order Comment: Microscopics not performed on urines with negative chemical reactions unless requested on original order.Performed By: #### [id number] ####[facility] ([facility])[address] [facility] [place] [place] [address]Rabljjo Ql (U)NegativeNormalNegativeFlower HospitalComment on above:Order Comment: Microscopics not performed on urines with negative chemical reactions unless requested on original order. Performed By: #### [id number] ####[facility] ([facility])[address] [place], [place] [address]XLIUGJFQA ESTERASE PRESENCE IN URINE BY TEST STRIPNegative NormalNegativeUnProMedica Memorial HospitalComment on above:Order Comment: Microscopics not performed on urines with negative chemical reactions unless requested on original order.Performed By: #### [id number] ####[facility] ([facility])[address] [place], [place] [address]PUEJTYY PRESENCE IN URINENegative NormalNegativeUnProMedica Memorial HospitalComment on above:Order Comment: Microscopics not performed on urines with negative chemical reactions unless requested on original order.Performed By: #### [id number] ####[facility] ([facility])[address] [place], [place] [address]pL (U)6.5 [pH]Normal5.0-8.0UnProMedica Memorial HospitalComment on above:Order Comment: Microscopics not performed on urines with negative chemical reactions unless requested on original order.Performed By: #### [id number] ####[facility] ([facility])[address] [place], [place] [address]Ftovmya (U) [Mass/Vol]NegativeNormalNegative [facility] HospitalComment on above:Order Comment: Microscopics not performed on urines with negative chemical reactions unless requested on original order.Performed By: #### [id number] ####[facility] ([facility])[address] [place], [place] [address]Flcglisx gravity (U) [Rel density]1.016Normal 1.010-1.030UnProMedica Memorial HospitalComment on above:Order Comment: Microscopics not performed on urines with negative chemical reactions unless requested on original order.Performed By: #### [id number] ####[facility] ([facility])[address] [place], [place] [address]LTGSPJZUIKCO (MG/DL) IN URINE>=8.0 AbnormalNormalUniversMercy Health Lorain HospitalComment on above:Order Comment: Microscopics not performed on urines with negative chemical reactions unless requested on original order.Performed By: #### [id number] ####[facility] ([facility])[address] [place] [address]wj 97-96-342698Rdu patient is Moderately Stable - Low risk of patient condition declining or worsening The patient's goals for the shift include comfort, rest. The clinical goals for the shift include stable vitals, safety.NormalUnProMedica Memorial Hospital30NormalUniversity Suburban Community Hospital & Brentwood HospitalCOMPREHENSIVE METABOLIC PANELon 16-67-6291Gviockd [Mass/Vol]2.9 g/dLLow3.5-5.7UnProMedica Memorial HospitalComment on above:Performed By: #### [id number] ####[facility] ([facility])[address] [place], [place] [address]RLG [Catalytic activity/Vol]58 U/AOlrdfo41-035JqrodtvkhnProMedica Memorial HospitalComment on above:Performed By: #### [id number] ####[facility] ([facility])[address] [place], [place] [address]JPN [Catalytic activity/Vol]17 U/LNormal7-52UnProMedica Memorial Hospital Comment on above:Performed By: #### [id number] ####[facility] ([facility])[address] [place], [place] [address]Hzetn gap [Moles/Vol]9 mmol/LNormal7-20UnProMedica Memorial HospitalComment on above:Performed By: #### [id number] ####[facility] ([facility])[address] [place], [place] [address]BAU [Catalytic activity/Vol]17 U/YZnmlpu03-33RuqxrcktisProMedica Memorial HospitalComment on above:Performed By: #### [id number] ####[facility] ([facility])[address] [place], [place] [address]Ctbedrzcn [Mass/Vol]3.6 mg/dLHigh0.3-1.0UnProMedica Memorial HospitalComment on above:Performed By: #### [id number] ####[facility] ([facility])[address] [place], [place] [address]Fgcsgje [Mass/Vol]7.7 mg/dLLow8.6-10.3 [facility] HospitalComment on above:Performed By: #### [id number] ####[facility] ([facility])[address] [place] [address]Fseygjsy [Moles/Vol]103 mmol/AQzgqnw70-306CsvqcvyqjuProMedica Memorial HospitalComment on above:Performed By: #### [id number] ####[facility] ([facility])[address] [address]HY3 [Moles/Vol]22 mmol/CTftunc13-25LepgnpfjwiProMedica Memorial HospitalComment on above:Performed By: #### [id number] ####[facility] ([facility])[address] [place] [address]Xvlwdcvjrs [Mass/Vol]0.67 mg/dLLow 0.70-1.30UnProMedica Memorial HospitalComment on above:Performed By: #### [id number] ####[facility] ([facility])[address] [address]UOCVWRETHU FILTRATION RATE ML/MIN/1.73 SQ M.UWHWHQIOJ567.2 mL/min/1.73m*2Normal>60.0 [facility] HospitalComment on above:Result Comment: [facility]???s estimated glomerular filtration rate (eG FR) will no longer include consideration of race [...] potential consequences that do not disproportionately affect anyone group of individuals. Performed By: #### [id number] ####[facility] ([facility])[address] [place] [address]Jnaiiuk [Mass/Vol]94 mg/iCNrhluw15-139EmikwiwznrProMedica Memorial HospitalComment on above:Performed By: #### [id number] ####[facility] ([facility])[address] [place], [place] [address]Whplpkvzq [Moles/Vol]3.9 mmol/LNormal 3.5-5.1UnProMedica Memorial HospitalComment on above:Performed By: #### [id number] ####[facility] ([facility])[address] [place], [place] [address]Rsmvqmb [Mass/Vol]5.1 g/dLLow6.0-8.3UnProMedica Memorial HospitalComment on above: Performed By: #### [id number] ####[facility] ([facility])[address] [place], [place] [address]Xmsuqq [Moles/Vol]130 mmol/SJpg332-995OnhchmqyqfProMedica Memorial HospitalComment on above:Performed By: #### [id number] ####[facility] ([facility])[address] [place], [place] [address]Rtlg nitrogen [Mass/Vol]14 mg/dLNormal 7-25UnProMedica Memorial HospitalComment on above:Performed By: #### [id number] ####[facility] ([facility])[address] [place], [place] [address]KFIY NITROGEN/CREATININE (MASS RATIO) IN SER/PLAS20.9NormalUniversMercy Health Lorain HospitalComment on above:Performed By: #### [id number] ####[facility] ([facility])[address] [place], [place] [address]ZIDRMLX LEVELon 89-65-3560RHAYKPM (NG/ML) IN SER/PLAS<0.3Low0.7-2UnProMedica Memorial HospitalComment on above:Performed By: #### [id number] ####[facility] ([facility])[address] [place], [place] [address]ZFTXMOKTPxh 50-03-3585Jxtvhjspn [Mass/Vol]2.0 mg/dLNormal 1.9-2.7UnProMedica Memorial HospitalComment on above:Performed By: #### [id number] ####[facility] ([facility])[address] [place] [address]GKMXOCNS on 46-00-2084DQCVPWKCEeprceMnikyculre of [facility] Medical CenterPHOSPHORUSon 49-12-9442Fqgkihxci [Mass/Vol]2.4 mg/dLLow2.5-5.0UnProMedica Memorial HospitalComment on above:Performed By: #### [id number] ####[facility] ([facility])[address] [address]an 68-02-781554EiblnmLqbsushrxc of [facility] Medical CenterCBCon 97-00-2590Wdlukguuxsd distribution width (RBC) [Ratio]17.2 %High11.5-15.0UnProMedica Memorial HospitalComment on above: Performed By: #### [id number] ####[facility] ([facility])[address] [place] [address]VEIMSBWLAZX MEAN CORPUSCULAR HEMOGLOBIN CONCENTRATION (G/DL) BY QRNSELYTE18.2 g/mYAharqs34.0-35.0UnProMedica Memorial HospitalComment on above:Performed By: #### [id number] ####[facility] ([facility])[address] [place] [address]Srbqvfzxby (Bld) [Volume fraction]24.3 %Low39.0-50.0 [facility] HospitalComment on above:Performed By: #### [id number] ####[facility] ([facility])[address] [place] [address]Fenyezqtvp (Bld) [Mass/Vol]8.3 g/dLLow13.0-17.0UnProMedica Memorial HospitalComment on above:Performed By: #### [id number] ####[facility] ([facility])[address] [place] [address]TDQ (RBC) [Entitic mass]30.7 bnUloxil02.0-33.0UnProMedica Memorial HospitalComment on above:Performed By: #### [id number] ####[facility] ([facility])[address] [place] [address]SMI (RBC) [Entitic vol] 90.0 bTHtvhdk94.0-98.0UnProMedica Memorial HospitalComment on above: Performed By: #### [id number] ####[facility] ([facility])[address] [address]TMMOUIZMA (10*3/UL) IN BLOOD AUTOMATED KPVZB128 10*3/uLNormal 150-400UnProMedica Memorial HospitalComment on above:Performed By: #### [id number] ####[facility] ([facility])[address] [place] [address]VJH (Bld) [#/Vol]2.70 10*6/uLLow4.20-5.70UnProMedica Memorial HospitalComment on above:Performed By: #### [id number] ####[facility] ([facility])[address] [address]NCY (Bld) [#/Vol]8.84 10*3/uLNormal4.00-10.60UnProMedica Memorial HospitalComment on above:Performed By: #### [id number] ####[facility] ([facility])[address], [place] [address]SJGPCGEQVIFNI METABOLIC PANELon 43-94-3874Xweprdf [Mass/Vol]3.0 g/dLLow3.5-5.7UnProMedica Memorial HospitalComment on above:Performed By: #### [id number] ####[facility] ([facility])[address], [place] [address]BRT [Catalytic activity/Vol]60 U/L Ilxvqi15-778HvkccghjsjProMedica Memorial HospitalComment on above:Performed By: #### [id number] ####[facility] ([facility])[address], [place] [address]XEK [Catalytic activity/Vol]20 U/LNormal7-52UnProMedica Memorial Hospital Comment on above:Performed By: #### [id number] ####[facility] ([facility])[address], [place] [address]Ypxev gap [Moles/Vol]10 mmol/LNormal7-20UnProMedica Memorial HospitalComment on above:Performed By: #### [id number] ####[facility] ([facility])[address] [address]BXD [Catalytic activity/Vol]14 U/CSgpkrf48-78IhntuwwoqhProMedica Memorial HospitalComment on above:Performed By: #### [id number] ####[facility] ([facility])[address] [place] [address]Yyclvczud [Mass/Vol]3.8 mg/dLHigh0.3-1.0UnProMedica Memorial HospitalComment on above:Performed By: #### [id number] ####[facility] ([facility])[address] [place] [address]Fqtebrm [Mass/Vol]7.9 mg/dLLow8.6-10.3 [facility] HospitalComment on above:Performed By: #### [id number] ####[facility] ([facility])[address] [place] [address]Vtkjwklf [Moles/Vol]102 mmol/PRfpovq24-855TnlpkaswmxProMedica Memorial HospitalComment on above:Performed By: #### [id number] ####[facility] ([facility])[address] [place] [address]CC4 [Moles/Vol]23 mmol/WUurxdl13-11OklimzmeieProMedica Memorial HospitalComment on above:Performed By: #### [id number] ####[facility] ([facility])[address], [place] [address]Ynlttejdbd [Mass/Vol]0.75 mg/dLNormal 0.70-1.30UnProMedica Memorial HospitalComment on above:Performed By: #### [id number] ####[facility] [facility])[address] [place], [place] [address]AAOKZTPKYS FILTRATION RATE ML/MIN/1.73 SQ M.NRVXUCONY231.6 mL/min/1.73m*2Normal>60.0 [facility] HospitalComment on above:Result Comment: [facility]s estimated glomerular filtration rate (eG FR) will no longer include consideration of race [...] potential consequences that do not disproportionately affect anyone group of individuals. Performed By: #### [id number] ####[facility] ([facility])[address] [place], [place] [address]Yadpwwz [Mass/Vol]98 mg/wEVrhlea30-005YqfmxqvxgqProMedica Memorial HospitalComment on above:Performed By: #### [id number] ####[facility] ([facility])[address] [place], [place] [address]Pgrbmmahz [Moles/Vol]4.0 mmol/LNormal 3.5-5.1UnProMedica Memorial HospitalComment on above:Performed By: #### [id number] ####[facility] ([facility])[address] [place], [place] [address]Bcoowwe [Mass/Vol]5.1 g/dLLow6.0-8.3UnProMedica Memorial HospitalComment on above: Performed By: #### [id number] ####[facility] ([facility])[address] [place], [place] [address]Kdnrck [Moles/Vol]131 mmol/UMgj932-726XeboshlzdzProMedica Memorial HospitalComment on above:Performed By: #### [id number] ####[facility] ([facility])[address] [place], [place] [address]Zlge nitrogen [Mass/Vol]16 mg/dLNormal 7-25UnProMedica Memorial HospitalComment on above:Performed By: #### [id number] ####[facility] ([facility])[address], [place] [address]VUFE NITROGEN/CREATININE (MASS RATIO) IN SER/PLAS21.3NormalUniversMercy Health Lorain HospitalComment on above:Performed By: #### [id number] ####[facility] ([facility])[address] [address]TGYUWHJTAhi 40-68-7273Xmmhidxcj [Mass/Vol]2.0 mg/dLLow2.5-5.0UnProMedica Memorial HospitalComment on above:Performed By: #### [id number] ####[facility] ([facility])[address] [address]Prlznsign By: #### [id number] ####[facility] ([facility])[address] [address]UMBOTYSBei 18-23-6741FNGMFTCFUxjathKlgtenfhez of [facility] Hbrtpa59es 37-69-435867SykvhoUqbevvgktf of [facility] CBCon 32-96-1772Xadkzeskvhk distribution width (RBC) [Ratio]17.2 %High11.5-15.0 [facility] HospitalComment on above:Performed By: #### [id number] ####[facility] ([facility])[address] [address]XDGPMEIJSJG MEAN CORPUSCULAR HEMOGLOBIN CONCENTRATION (G/DL) BY MDDUWYSKI76.5 g/sYWvbz17.0-35.0 [facility] HospitalComment on above:Performed By: #### [id number] ####[facility] ([facility])[address] [address]Okvyrrafwg (Bld) [Volume fraction]25.1 %Low39.0-50.0UnProMedica Memorial HospitalComment on above:Performed By: #### [id number] ####[facility] ([facility])[address] [address]Chpxwenycx (Bld) [Mass/Vol]8.9 g/dLLow13.0-17.0UnProMedica Memorial HospitalComment on above:Performed By: #### [id number] ####[facility] ([facility])[address] [address]YLJ (RBC) [Entitic mass] 31.3 npVmtbec02.0-33.0UnProMedica Memorial HospitalComment on above: Performed By: #### [id number] ####[facility] ([facility])[address] [address]RRC (RBC) [Entitic vol]88.4 pLWmdvwa51.0-98.0UnProMedica Memorial HospitalComment on above:Performed By: #### [id number] ####[facility] ([facility])[address] [address]RZDAAPWNM (10*3/UL) IN BLOOD AUTOMATED EDXRJ721 10*3/mGYbexyg452-136IgsfmnrvabProMedica Memorial Hospital Comment on above:Performed By: #### [id number] ####[facility] ([facility])[address] [address]QII (Bld) [#/Vol]2.84 10*6/uLLow4.20-5.70UnProMedica Memorial HospitalComment on above:Performed By: #### [id number] ####[facility] ([facility])[address] [place] [address]LGX (Bld) [#/Vol]9.07 10*3/uLNormal4.00-10.60UnProMedica Memorial HospitalComment on above: Performed By: #### [id number] ####[facility] ([facility])[address] [place], [place] [address]Byjxcbljuob distribution width (RBC) [Ratio]17.2 %High 11.5-15.0UnProMedica Memorial HospitalComment on above:Performed By: #### [id number] ####[facility] [place] [address] ERYTHROCYTE MEAN CORPUSCULAR HEMOGLOBIN CONCENTRATION (G/DL) BY MNXUVVERS93.0 g/eZOiavya07.0-35.0UnProMedica Memorial HospitalComment on above:Performed By: #### [id number] ####[facility] ([facility])[address] [place], [place] [address]Derwcqcwdd (Bld) [Volume fraction]27.4 %Low39.0-50.0UnProMedica Memorial HospitalComment on above:Performed By: #### [id number] ####[facility] [address]Hpsxfirxmy (Bld) [Mass/Vol]9.6 g/dLLow 13.0-17.0UnProMedica Memorial HospitalComment on above:Performed By: #### [id number] ####[facility] ([facility])[address] [address]EDO (RBC) [Entitic mass]30.8 enKasesx53.0-33.0UnProMedica Memorial HospitalComment on above:Performed By: #### [id number] ####[facility] ([facility])[address] [place] [place] [address]ZDD (RBC) [Entitic vol]87.8 dOAkslie27.0-98.0UnProMedica Memorial HospitalComment on above:Performed By: #### [id number] ####[facility] ([facility])[address] [place] [address]WRLTXKWPT (10*3/UL) IN BLOOD AUTOMATED TNFCM209 10*3/kQCyrawc149-017CivtuxgovvProMedica Memorial Hospital Comment on above:Performed By: #### [id number] ####[facility] ([facility])[address] [address]KML (Bld) [#/Vol]3.12 10*6/uLLow4.20-5.70UnProMedica Memorial HospitalComment on above:Performed By: #### [id number] ####[facility] ([facility])[address] [place] [address]LIF (Bld) [#/Vol]10.96 10*3/uLHigh4.00-10.60UnProMedica Memorial HospitalComment on above: Performed By: #### [id number] ####[facility] [place], [place] [address]Yiddsrnegpy distribution width (RBC) [Ratio]17.3 %High 11.5-15.0UnProMedica Memorial HospitalComment on above:Performed By: #### [id number] ####[facility] [place] [address] ERYTHROCYTE MEAN CORPUSCULAR HEMOGLOBIN CONCENTRATION (G/DL) BY TEEQFRWKV66.4 g/gXXuoddj15.0-35.0UnProMedica Memorial HospitalComment on above:Performed By: #### [id number] ####[facility] ([facility])[address], [place] [address]Whvymzvoxx (Bld) [Volume fraction]24.7 %Low39.0-50.0UnProMedica Memorial HospitalComment on above:Performed By: #### [id number] ####[facility] ([facility])[address] [place], [place] [address]Cymtbduncx (Bld) [Mass/Vol]8.5 g/dLLow 13.0-17.0UnProMedica Memorial HospitalComment on above:Performed By: #### [id number] ####[facility] ([facility])[address] [place], [place] [address]RNB (RBC) [Entitic mass]30.9 msNkyqgz72.0-33.0UnProMedica Memorial HospitalComment on above:Performed By: #### [id number] ####[facility] ([facility])[address] [place], [place] [address]FMC (RBC) [Entitic vol]89.8 wUWnorqy04.0-98.0UnProMedica Memorial HospitalComment on above:Performed By: #### [id number] ####[facility], [place] [address]SNQVPUKIS (10*3/UL) IN BLOOD AUTOMATED VTZQW153 10*3/oGCyrbub345-154FjvmbftdexProMedica Memorial Hospital Comment on above:Performed By: #### [id number] ####[facility] [place] [address]ERZ (Bld) [#/Vol]2.75 10*6/uLLow4.20-5.70UnProMedica Memorial HospitalComment on above:Performed By: #### [id number] ####[facility] [place] [place] [address]BKW (Bld) [#/Vol]8.02 10*3/uLNormal4.00-10.60UnProMedica Memorial HospitalComment on above: Performed By: #### [id number] ####[facility] ([facility])[address] [address]Skyommdbbtv distribution width (RBC) [Ratio]17.5 %High 11.5-15.0UnProMedica Memorial HospitalComment on above:Performed By: #### [id number] ####[facility] ([facility])[address] [place] [address] ERYTHROCYTE MEAN CORPUSCULAR HEMOGLOBIN CONCENTRATION (G/DL) BY PLJCWRAWR11.5 g/iNUezazg81.0-35.0UnProMedica Memorial HospitalComment on above:Performed By: #### [id number] ####[facility] ([facility])[address] [place] [place] [address]Vwlvrvogou (Bld) [Volume fraction]23.8 %Low39.0-50.0UnProMedica Memorial HospitalComment on above:Performed By: #### [id number] ####[facility] ([facility])[address] [place] [address]Bqtudddzqi (Bld) [Mass/Vol]8.2 g/dLLow 13.0-17.0UnProMedica Memorial HospitalComment on above:Performed By: #### [id number] ####[facility] ([facility])[address] [place] [address]UOZ (RBC) [Entitic mass]30.7 wuEvgxdn16.0-33.0UnProMedica Memorial HospitalComment on above:Performed By: #### [id number] ####[facility] ([facility])[address] [place] [address]AMN (RBC) [Entitic vol]89.1 xHHybftj35.0-98.0UnProMedica Memorial HospitalComment on above:Performed By: #### [id number] ####[facility] ([facility])[address] [address]EHBVXWPXV (10*3/UL) IN BLOOD AUTOMATED VCZFF157 10*3/vSEkkvru376-217HvrncunfykProMedica Memorial Hospital Comment on above:Performed By: #### [id number] ####[facility] ([facility])[address] [address]XMK (Bld) [#/Vol]2.67 10*6/uLLow4.20-5.70UnProMedica Memorial HospitalComment on above:Performed By: #### [id number] ####[facility] ([facility])[address] [address]MVR (Bld) [#/Vol]8.06 10*3/uLNormal4.00-10.60UnProMedica Memorial HospitalComment on above: Performed By: #### [id number] ####[facility] ([facility])[address], [place] [address]EGIAGXOVVSPJU METABOLIC PANELon 84-57-2684Ufcqrzs [Mass/Vol] 2.9 g/dLLow3.5-5.7UnProMedica Memorial HospitalComment on above:Performed By: #### [id number] ####[facility] ([facility])[address] [place] [address] ALP [Catalytic activity/Vol]54 U/NSnbvau97-718YldulcchthProMedica Memorial HospitalComment on above:Performed By: #### [id number] ####[facility] ([facility])[address] [place], [place] [address]OKJ [Catalytic activity/Vol]21 U/L Normal7-52UnProMedica Memorial HospitalComment on above:Performed By: #### [id number] ####[facility] ([facility])[address] [place], [place] [address]Fpwwf gap [Moles/Vol]8 mmol/LNormal7-20UnProMedica Memorial HospitalComment on above:Performed By: #### [id number] ####[facility] ([facility])[address] [place], [place] [address]YWW [Catalytic activity/Vol]16 U/HJmvecp70-36IyngekybsoProMedica Memorial HospitalComment on above:Performed By: #### [id number] ####[facility] ([facility])[address] [place], [place] [address]Muxvjjmlz [Mass/Vol]3.4 mg/dLHigh 0.3-1.0UnProMedica Memorial HospitalComment on above:Performed By: #### [id number] ####[facility] ([facility])[address] [place], [place] [address]Twaasap [Mass/Vol]7.8 mg/dLLow8.6-10.3UnProMedica Memorial HospitalComment on above:Performed By: #### [id number] ####[facility] ([facility])[address] [place], [place] [address]Cajdnaig [Moles/Vol]102 mmol/USnszru51-400GhefplrfklProMedica Memorial HospitalComment on above:Performed By: #### [id number] ####[facility] ([facility])[address] [place], [place] [address]FI9 [Moles/Vol]25 mmol/LNormal 21-31UnProMedica Memorial HospitalComment on above:Performed By: #### [id number] ####[facility] ([facility])[address] [place], [place] [address]Sntazsmron [Mass/Vol]0.64 mg/dLLow0.70-1.30UnProMedica Memorial HospitalComment on above:Performed By: #### [id number] ####[facility] ([facility])[address], [place] [address]DXJZOMWDGP FILTRATION RATE ML/MIN/1.73 SQ M.MXRZUPASF384.7 mL/min/1.73m*2Normal>60.0UnProMedica Memorial HospitalComment on above: Result Comment: [facility]???s estimated glomerular filtration rate (eGFR) will [...] potential consequences that do not disproportionately affect anyone group of individuals.Performed By: #### [id number] ####[facility] ([facility])[address] [place], [place] [address]Jxctatp [Mass/Vol]100 mg/gLDvitzp23-670JmzuoueerqProMedica Memorial HospitalComment on above:Performed By: #### [id number] ####[facility] ([facility])[address] AVC[address] [employer] & Distilling CoTEMPLE [place], [place] [address]Ozoiyuyei [Moles/Vol]4.1 mmol/LNormal3.5-5.1UnProMedica Memorial HospitalComment on above:Performed By: #### [id number] ####[facility] ([facility])[address] [place] [address] Protein [Mass/Vol]4.9 g/dLLow6.0-8.3UnProMedica Memorial HospitalComment on above:Performed By: #### [id number] ####[facility] ([facility])[address], [place] [address]Hzndzg [Moles/Vol]131 mmol/ZUsv575-245JwkvqiljmwProMedica Memorial HospitalComment on above:Performed By: #### [id number] ####[facility], [place] [address]Szps nitrogen [Mass/Vol]17 mg/dLNormal 7-25UnProMedica Memorial HospitalComment on above:Performed By: #### [id number] ####[facility] ([facility])[address] [place], [place] [address]CJBU NITROGEN/CREATININE (MASS RATIO) IN SER/PLAS26.6NormalUniversMercy Health Lorain HospitalComment on above:Performed By: #### [id number] ####[facility] ([facility])[address] [address]QMWKAHSUYnt 42-25-6[address]Oloxzfzuq [Mass/Vol]2.1 mg/dLNormal1.9-2.7UnProMedica Memorial HospitalComment on above:Performed By: #### [id number] ####[facility] ([facility])[address] [place] [address]WZYZDTZPeq 40-16-2656VPSVDAUIFoejqrFqpljkdamt of [place] Medical CenterPHOSPHORUSon 13-31-7[address]Qcakmfnmk [Mass/Vol]2.0 mg/dLLow2.5-5.0 [facility] HospitalComment on above:Performed By: #### [id number] ####[facility] ([facility])[address] [place] [address]56nh 02-26-2025 30NormalUniThe Christ HospitalCBCon 15-43-1342Tznnxongmcp distribution width (RBC) [Ratio]17.5 %High11.5-15.0UnProMedica Memorial HospitalComment on above:Performed By: #### [id number] ####[facility] ([facility])[address] [place] [address]WAFXJFDHLMM MEAN CORPUSCULAR HEMOGLOBIN CONCENTRATION (G/DL) BY XKNZZDXZQ19.6 g/iRCxogsp30.0-35.0UnProMedica Memorial HospitalComment on above:Performed By: #### [id number] ####[facility] ([facility])[address] [place] [place] [address]Zcektyienh (Bld) [Volume fraction]24.6 %Low39.0-50.0UnProMedica Memorial HospitalComment on above: Performed By: #### [id number] ####[facility] [place] [place] [address]Ynijuirnrw (Bld) [Mass/Vol]8.5 g/dLLow13.0-17.0UnProMedica Memorial HospitalComment on above:Performed By: #### [id number] ####[facility] ([facility])[address] [place] [address]WNS (RBC) [Entitic mass] 31.1 osExlaac25.0-33.0UnProMedica Memorial HospitalComment on above: Performed By: #### [id number] ####[facility] ([facility])[address] [place] [address]XAJ (RBC) [Entitic vol]90.1 dKTgouvs72.0-98.0UnProMedica Memorial HospitalComment on above:Performed By: #### [id number] ####[facility] ([facility])[address] [place] [address]IXJMDBDDQ (10*3/UL) IN BLOOD AUTOMATED VBLQC806 10*3/sRSmpjlk245-204XqvyzouelfProMedica Memorial Hospital Comment on above:Performed By: #### [id number] ####[facility] ([facility])[address] [place] [address]RBE (Bld) [#/Vol]2.73 10*6/uLLow4.20-5.70UnProMedica Memorial HospitalComment on above:Performed By: #### [id number] ####[facility] ([facility])[address] [place] [address]BKE (Bld) [#/Vol]8.18 10*3/uLNormal4.00-10.60UnProMedica Memorial HospitalComment on above: Performed By: #### [id number] ####[facility] ([facility])[address] [place], [place] [address]Qfkdcjiomrn distribution width (RBC) [Ratio]17.6 %High 11.5-15.0UnProMedica Memorial HospitalComment on above:Performed By: #### [id number] ####[facility] [place] [address] ERYTHROCYTE MEAN CORPUSCULAR HEMOGLOBIN CONCENTRATION (G/DL) BY THVWUCDFU28.0 g/qJWrilwo93.0-35.0UnProMedica Memorial HospitalComment on above:Performed By: #### [id number] ####[facility] ([facility])[address] [place] [address]Wxklcvqtuj (Bld) [Volume fraction]25.0 %Low39.0-50.0UnProMedica Memorial HospitalComment on above:Performed By: #### [id number] ####[facility] ([facility])[address] [place] [address]Ncruonwbee (Bld) [Mass/Vol]8.5 g/dLLow 13.0-17.0UnProMedica Memorial HospitalComment on above:Performed By: #### [id number] ####[facility] ([facility])[address] [place] [address]KXA (RBC) [Entitic mass]30.2 rwLgzggn92.0-33.0UnProMedica Memorial HospitalComment on above:Performed By: #### [id number] ####[facility] ([facility])[address] [place] [address]NFS (RBC) [Entitic vol]89.0 vPWsbqes46.0-98.0UnProMedica Memorial HospitalComment on above:Performed By: #### [id number] ####[facility] [place] [address]AKEVQJUNB (10*3/UL) IN BLOOD AUTOMATED RCUNJ061 10*3/oIVpvclq781-432GgtwvwxfbiProMedica Memorial Hospital Comment on above:Performed By: #### [id number] ####[facility] ([facility])[address] [place] [address]UMZ (Bld) [#/Vol]2.81 10*6/uLLow4.20-5.70UnProMedica Memorial HospitalComment on above:Performed By: #### [id number] ####[facility] ([facility])[address] [place] [address]ZZP (Bld) [#/Vol]8.65 10*3/uLNormal4.00-10.60UnProMedica Memorial HospitalComment on above: Performed By: #### [id number] ####[facility] [place], [place] [address]Ikqdvlsflfy distribution width (RBC) [Ratio]17.8 %High 11.5-15.0UnProMedica Memorial HospitalComment on above:Performed By: #### [id number] ####[facility] ([facility])[address] [place] [address] ERYTHROCYTE MEAN CORPUSCULAR HEMOGLOBIN CONCENTRATION (G/DL) BY BNPAICOHX49.0 g/tWAxfqan90.0-35.0UnProMedica Memorial HospitalComment on above:Performed By: #### [id number] ####[facility] ([facility])[address] [place], [place] [address]Dzoksvbsts (Bld) [Volume fraction]24.6 %Low39.0-50.0UnProMedica Memorial HospitalComment on above:Performed By: #### [id number] ####[facility] ([facility])[address] [place], [place] [address]Hwxblmevzo (Bld) [Mass/Vol]8.6 g/dLLow 13.0-17.0UnProMedica Memorial HospitalComment on above:Performed By: #### [id number] ####[facility] [place], [place] [address]RUP (RBC) [Entitic mass]31.4 owLktfob01.0-33.0UnProMedica Memorial HospitalComment on above:Performed By: #### [id number] ####[facility] ([facility])[address] [place], [place] [address]NPS (RBC) [Entitic vol]89.8 qTEjkngk55.0-98.0UnProMedica Memorial HospitalComment on above:Performed By: #### [id number] ####[facility] [place], [place] [address]FZEYXDQXT (10*3/UL) IN BLOOD AUTOMATED HMYLZ599 10*3/nLKqrdim642-047YtohgimklyProMedica Memorial Hospital Comment on above:Performed By: #### [id number] ####[facility] ([facility])[address] [address]WEC (Bld) [#/Vol]2.74 10*6/uLLow4.20-5.70UnProMedica Memorial HospitalComment on above:Performed By: #### [id number] ####[facility] ([facility])[address] [place] [address]AGF (Bld) [#/Vol]7.78 10*3/uLNormal4.00-10.60UnProMedica Memorial HospitalComment on above: Performed By: #### [id number] ####[facility] ([facility])[address] [place] [address]Fcnxpnefjfa distribution width (RBC) [Ratio]17.8 %High 11.5-15.0UnProMedica Memorial HospitalComment on above:Performed By: #### [id number] ####[facility] ([facility])[address] [place] [address] ERYTHROCYTE MEAN CORPUSCULAR HEMOGLOBIN CONCENTRATION (G/DL) BY ZAMYAPBFE97.1 g/qWDoxxqa54.0-35.0UnProMedica Memorial HospitalComment on above:Performed By: #### [id number] ####[facility] ([facility])[address] [place] [address]Wgisvxuhui (Bld) [Volume fraction]23.2 %Low39.0-50.0UnProMedica Memorial HospitalComment on above:Performed By: #### [id number] ####[facility] ([facility])[address] [address]Moymmhebsf (Bld) [Mass/Vol]7.9 g/dLLow 13.0-17.0UnProMedica Memorial HospitalComment on above:Performed By: #### [id number] ####[facility] ([facility])[address] [place] [address]TRZ (RBC) [Entitic mass]30.6 bbMdthfu69.0-33.0UnProMedica Memorial HospitalComment on above:Performed By: #### [id number] ####[facility] ([facility])[address] [address]TAY (RBC) [Entitic vol]89.9 jXAnpiyr63.0-98.0UnProMedica Memorial HospitalComment on above:Performed By: #### [id number] ####[facility] ([facility])[address] [place] [address]LQTXIWDXM (10*3/UL) IN BLOOD AUTOMATED DLSMS226 10*3/kYEcozwu287-125YgxnqctokvProMedica Memorial Hospital Comment on above:Performed By: #### [id number] ####[facility] ([facility])[address] [place] [address]NAB (Bld) [#/Vol]2.58 10*6/uLLow4.20-5.70UnProMedica Memorial HospitalComment on above:Performed By: #### [id number] ####[facility] ([facility])[address] [place] [address]YDM (Bld) [#/Vol]7.09 10*3/uLNormal4.00-10.60UnProMedica Memorial HospitalComment on above: Performed By: #### [id number] ####[facility] ([facility])[address] [place] [address]ROCEAUTAHVWDL METABOLIC PANELon 82-03-4151Xmckwfw [Mass/Vol] 2.9 g/dLLow3.5-5.7UnProMedica Memorial HospitalComment on above:Performed By: #### [id number] ####[facility] ([facility])[address] [place] [address] ALP [Catalytic activity/Vol]54 U/ZDuvnjm06-328KplqjljzaqProMedica Memorial HospitalComment on above:Performed By: #### [id number] ####[facility] ([facility])[address] [place], [place] [address]HNL [Catalytic activity/Vol]24 U/L Normal7-52UnProMedica Memorial HospitalComment on above:Performed By: #### [id number] ####[facility] ([facility])[address] [place], [place] [address]Qsfbz gap [Moles/Vol]7 mmol/LNormal7-20UnProMedica Memorial HospitalComment on above:Performed By: #### [id number] ####[facility] ([facility])[address] [place], [place] [address]NCH [Catalytic activity/Vol]16 U/UTdhpnx11-70KppdfuvstoProMedica Memorial HospitalComment on above:Performed By: #### [id number] ####[facility] ([facility])[address] [place], [place] [address]Ggqoabfev [Mass/Vol]3.5 mg/dLHigh 0.3-1.0UnProMedica Memorial HospitalComment on above:Performed By: #### [id number] ####[facility] ([facility])[address] [place], [place] [address]Rudznlb [Mass/Vol]7.9 mg/dLLow8.6-10.3UnProMedica Memorial HospitalComment on above:Performed By: #### [id number] ####[facility] ([facility])[address], [place] [address]Oopjlkkw [Moles/Vol]103 mmol/VRmnkqa51-273AbmgvdzgosProMedica Memorial HospitalComment on above:Performed By: #### [id number] ####[facility] ([facility])[address], [place] [address]VM2 [Moles/Vol]27 mmol/LNormal 21-31UnProMedica Memorial HospitalComment on above:Performed By: #### [id number] ####[facility] ([facility])[address] [place], [place] [address]Idojbxvkxg [Mass/Vol]0.80 mg/dLNormal0.70-1.30UnProMedica Memorial HospitalComment on above:Performed By: #### [id number] ####[facility] ([facility])[address] [place] [address]GNVJETODIT FILTRATION RATE ML/MIN/1.73 SQ M.EGDWMRXVF837.6 mL/min/1.73m*2Normal>60.0UnProMedica Memorial HospitalComment on above: Result Comment: [facility]???s estimated glomerular filtration rate (eGFR) will [...] potential consequences that do not disproportionately affect anyone group of individuals.Performed By: #### [id number] ####[facility] ([facility])[address] [place] [address]Awqvrmn [Mass/Vol]94 mg/yTBbmnor01-024GveywnqxbbProMedica Memorial HospitalComment on above:Performed By: #### [id number] ####[facility] ([facility])[address] [place] [address]Hqpezijlr [Moles/Vol]3.9 mmol/LNormal3.5-5.1UnProMedica Memorial HospitalComment on above:Performed By: #### [id number] ####[facility] ([facility])[address] [place] [address] Protein [Mass/Vol]4.8 g/dLLow6.0-8.3UnProMedica Memorial HospitalComment on above:Performed By: #### [id number] ####[facility] ([facility])[address] [place], [place] [address]Nwqxco [Moles/Vol]133 mmol/WSmv740-543UfrwghlwjbProMedica Memorial HospitalComment on above:Performed By: #### [id number] ####[facility] ([facility])[address] [place], [place] [address]Xmbz nitrogen [Mass/Vol]25 mg/dLNormal 7-25UnProMedica Memorial HospitalComment on above:Performed By: #### [id number] ####[facility] ([facility])[address] [place], [place] [address]GPYT NITROGEN/CREATININE (MASS RATIO) IN SER/PLAS31.3NormalUniversMercy Health Lorain HospitalComment on above:Performed By: #### [id number] ####[facility] ([facility])[address] [place] [address]QDLYLLNLwz 59-51-1500RFLEQVUX (NG/ML) IN SER/QFDA776.0 ng/aGQsgexu33.0-336.0UnProMedica Memorial HospitalComment on above:Performed By: #### [id number] ####[facility] ([facility])[address] [place], [place] [address]IZWYZVbk 42-37-9890MVYIEF (NG/ML) IN SER/PLAS17.66 ng/mL Normal6.6-1000UnProMedica Memorial HospitalComment on above:Performed By: #### [id number] ####[facility] ([facility])[address] [place], [place] [address]VWAS AND TIBCon 41-49-5519YCGD (UG/DL) IN SER/PLAS20 ug/oTIjz81-439HjbyiceuokProMedica Memorial HospitalComment on above:Performed By: #### [id number] ####[facility] ([facility])[address] [place], [place] [address]QHMZ BINDING CAPACITY (UG/DL) IN SER/PJZL130 ug/bSQgh369-669NflyoovzncProMedica Memorial HospitalComment on above:Performed By: #### [id number] ####[facility] ([facility])[address] [place], [place] [address]LGHV BINDING CAPACITY.UNSATURATED (UG/DL) IN SER/EBAF812.0 ug/tBZvdclg968.0-355.0UnProMedica Memorial HospitalComment on above: Performed By: #### [id number] ####[facility] ([facility])[address] [place] [address]WITG SATURATION (%) IN SER/PLAS9 %Dod95-16AckdjpwgocProMedica Memorial HospitalComment on above:Performed By: #### [id number] ####[facility] ([facility])[address] [address]SICMIJXNLvk 02-26-2025 Magnesium [Mass/Vol]2.2 mg/dLNormal1.9-2.7UnProMedica Memorial Hospital Comment on above:Performed By: #### [id number] ####[facility] ([facility])[address] [address]XVCJNKGPWMww 79-56-4804Qhxopstnj [Mass/Vol]1.8 mg/dLLow2.5-5.0UnProMedica Memorial HospitalComment on above:Performed By: #### [id number] ####[facility] ([facility])[address] [place] [address] RETICULOCYTE PANELon 73-32-5858CAONBKZCRO (PG) IN EQRANHZDQNMDP52.0 pgNormal 28.0-36.0UnProMedica Memorial HospitalComment on above:Performed By: #### [id number] ####[facility] ([facility])[address] [address]JJDWNIXT RETICULOCYTE FRACTION (%)36.5 %High2-16UnProMedica Memorial Hospital Comment on above:Performed By: #### [id number] ####[facility] ([facility])[address] [place] [address]WOIEAWKNJSCAW (10*6/UL) IN BLOOD0.0781 10*6/uL Normal0.0250-0.1000UnProMedica Memorial HospitalComment on above:Performed By: #### [id number] ####[facility] ([facility])[address] [address]Hewvslpchocjc/100 RBC (Bld)2.79 %High0.50-1.80UnProMedica Memorial HospitalComment on above:Performed By: #### [id number] ####[facility] ([facility])[address] [address]IPSDARZ B12on 48-91-3198Oqmcygijz (Vitamin B12) [Mass/Vol]1129 pg/bRTiqr331-334XwjfrzxflqProMedica Memorial Hospital Comment on above:Result Comment: REFERENCE RANGES:180-914 pg/mL Rjmcpz938-673 pg/mL Indeterminate<145 pg/mL DeficientPerformed By: #### [id number] ####[facility] ([facility])[address] [address]nb 49-14-181675Zmdbtz [facility] HospitalCBCon 89-67-2528Qvjxuukizah distribution width (RBC) [Ratio]17.7 %High11.5-15.0UnProMedica Memorial HospitalComment on above:Performed By: #### [id number] ####[facility] ([facility])[address] [address]AHRRKDHEVDG MEAN CORPUSCULAR HEMOGLOBIN CONCENTRATION (G/DL) BY NJQMLKNDK04.8 g/fHLyyfgh16.0-35.0UnProMedica Memorial HospitalComment on above:Performed By: #### [id number] ####[facility] ([facility])[address] [address]Xmnzhrrpyl (Bld) [Volume fraction]23.3 %Low39.0-50.0 [facility] HospitalComment on above:Performed By: #### [id number] ####[facility] ([facility])[address] [address]Erebkghbpb (Bld) [Mass/Vol]8.1 g/dLLow13.0-17.0UnProMedica Memorial HospitalComment on above:Performed By: #### [id number] ####[facility] ([facility])[address] [address]VEG (RBC) [Entitic mass]31.2 pdPfzdvu08.0-33.0UnProMedica Memorial HospitalComment on above:Performed By: #### [id number] ####[facility] [place] [address]PFJ (RBC) [Entitic vol] 89.6 gJLneryu17.0-98.0UnProMedica Memorial HospitalComment on above: Performed By: #### [id number] ####[facility] ([facility])[address] [place] [address]MOSNILQUR (10*3/UL) IN BLOOD AUTOMATED VRMMJ638 10*3/uLNormal 150-400UnProMedica Memorial HospitalComment on above:Performed By: #### [id number] ####[facility] ([facility])[address] [place] [address]KSW (Bld) [#/Vol]2.60 10*6/uLLow4.20-5.70UnProMedica Memorial HospitalComment on above:Performed By: #### [id number] ####[facility] ([facility])[address] [place] [address]DPK (Bld) [#/Vol]7.74 10*3/uLNormal4.00-10.60UnProMedica Memorial HospitalComment on above:Performed By: #### [id number] ####[facility] ([facility])[address] [place] [address]Tlflbumypcf distribution width (RBC) [Ratio]17.7 %High11.5-15.0UnProMedica Memorial HospitalComment on above:Performed By: #### [id number] ####[facility] ([facility])[address] [place] [address]DJRLJVVTQVD MEAN CORPUSCULAR HEMOGLOBIN CONCENTRATION (G/DL) BY QYNPWFBVQ28.6 g/hFSlwvdj88.0-35.0UnProMedica Memorial HospitalComment on above:Performed By: #### [id number] ####[facility] ([facility])[address] [place] [address]Mxfxngvqji (Bld) [Volume fraction]26.0 %Low39.0-50.0 [facility] HospitalComment on above:Performed By: #### [id number] ####[facility] [place] [address]Sebqteyskt (Bld) [Mass/Vol]9.0 g/dLLow13.0-17.0UnProMedica Memorial HospitalComment on above:Performed By: #### [id number] ####[facility] ([facility])[address] [place] [address]FRH (RBC) [Entitic mass]31.0 uyGhpivj70.0-33.0UnProMedica Memorial HospitalComment on above:Performed By: #### [id number] ####[facility] ([facility])[address] [place] [address]UFJ (RBC) [Entitic vol] 89.7 mZHkkhfr15.0-98.0UnProMedica Memorial HospitalComment on above: Performed By: #### [id number] ####[facility] ([facility])[address] [place] [address]UJHCBCWVO (10*3/UL) IN BLOOD AUTOMATED [id number] 10*3/uLNormal 150-400UnProMedica Memorial HospitalComment on above:Performed By: #### [id number] ####[facility] ([facility])[address] [place] [address]MGN (Bld) [#/Vol]2.90 10*6/uLLow4.20-5.70UnProMedica Memorial HospitalComment on above:Performed By: #### [id number] ####[facility] ([facility])[address] [place] [address]SHV (Bld) [#/Vol]8.04 10*3/uLNormal4.00-10.60UnProMedica Memorial HospitalComment on above:Performed By: #### [id number] ####[facility] ([facility])[address] [place] [address]Stswlkdswht distribution width (RBC) [Ratio]17.7 %High11.5-15.0UnProMedica Memorial HospitalComment on above:Performed By: #### [id number] ####[facility] ([facility])[address] [place] [address]TBJJEKMCGYZ MEAN CORPUSCULAR HEMOGLOBIN CONCENTRATION (G/DL) BY HEXRNNTED94.2 g/zUYuewqx33.0-35.0UnProMedica Memorial HospitalComment on above:Performed By: #### [id number] ####[facility] ([facility])[address] [place] [address]Wrtmhluxae (Bld) [Volume fraction]24.3 %Low39.0-50.0 [facility] HospitalComment on above:Performed By: #### [id number] ####[facility] ([facility])[address] [place] [address]Kywoxpajmg (Bld) [Mass/Vol]8.3 g/dLLow13.0-17.0UnProMedica Memorial HospitalComment on above:Performed By: #### [id number] ####[facility] ([facility])[address] [place] [address]XJI (RBC) [Entitic mass]30.6 vmGzzcsj88.0-33.0UnProMedica Memorial HospitalComment on above:Performed By: #### [id number] ####[facility] ([facility])[address] [place] [address]SIX (RBC) [Entitic vol] 89.7 dXKfxksf81.0-98.0UnProMedica Memorial HospitalComment on above: Performed By: #### [id number] ####[facility] ([facility])[address] [place] [address]RFMXWJDWI (10*3/UL) IN BLOOD AUTOMATED NPBWZ526 10*3/uLNormal 150-400UnProMedica Memorial HospitalComment on above:Performed By: #### [id number] ####[facility] ([facility])[address] [place] [address]HEN (Bld) [#/Vol]2.71 10*6/uLLow4.20-5.70UnProMedica Memorial HospitalComment on above:Performed By: #### [id number] ####[facility] ([facility])[address] [place] [address]EOH (Bld) [#/Vol]7.39 10*3/uLNormal4.00-10.60UnProMedica Memorial HospitalComment on above:Performed By: #### [id number] ####[facility] ([facility])[address] [place], [place] [address]Fwpowbcuazh distribution width (RBC) [Ratio]15.8 %High11.5-15.0UnProMedica Memorial HospitalComment on above:Performed By: #### [id number] ####[facility] ([facility])[address] [place], [place] [address]JNRSEBVILPA MEAN CORPUSCULAR HEMOGLOBIN CONCENTRATION (G/DL) BY ZKZWXLLQB35.9 g/tZAqdsne09.0-35.0UnProMedica Memorial HospitalComment on above:Performed By: #### [id number] ####[facility] ([facility])[address] [place], [place] [address]Wchebibpnn (Bld) [Volume fraction]22.7 %Low39.0-50.0 [facility] HospitalComment on above:Performed By: #### [id number] ####[facility] ([facility])[address] [place], [place] [address]Dhtrolavlg (Bld) [Mass/Vol]7.7 g/dLLow13.0-17.0UnProMedica Memorial HospitalComment on above:Performed By: #### [id number] ####[facility] ([facility])[address] [place], [place] [address]HIE (RBC) [Entitic mass]31.0 wxCvwtge09.0-33.0UnProMedica Memorial HospitalComment on above:Performed By: #### [id number] ####[facility] ([facility])[address] [place], [place] [address]QKQ (RBC) [Entitic vol] 91.5 bQDspktf55.0-98.0UnProMedica Memorial HospitalComment on above: Performed By: #### [id number] ####[facility] [address]MNQHIXWBI (10*3/UL) IN BLOOD AUTOMATED [id number] 10*3/uLNormal 150-400UnProMedica Memorial HospitalComment on above:Performed By: #### [id number] ####[facility] ([facility])[address] [place] [address]FKH (Bld) [#/Vol]2.48 10*6/uLLow4.20-5.70UnProMedica Memorial HospitalComment on above:Performed By: #### [id number] ####[facility] ([facility])[address] [address]VDQ (Bld) [#/Vol]8.90 10*3/uLNormal4.00-10.60UnProMedica Memorial HospitalComment on above:Performed By: #### [id number] ####[facility] ([facility])[address] [place], [place] [address]Rgwogolxnlr distribution width (RBC) [Ratio]15.8 %High11.5-15.0UnProMedica Memorial HospitalComment on above:Performed By: #### [id number] ####[facility] ([facility])[address] [place], [place] [address]BFPRHOACAHL MEAN CORPUSCULAR HEMOGLOBIN CONCENTRATION (G/DL) BY KOZAUSOKS75.0 g/qDDsbohd30.0-35.0UnProMedica Memorial HospitalComment on above:Performed By: #### [id number] ####[facility] ([facility])[address] [place], [place] [address]Rtgmxxxbli (Bld) [Volume fraction]23.7 %Low39.0-50.0 [facility] HospitalComment on above:Performed By: #### [id number] ####[facility] [place], [place] [address]Mgtbooviom (Bld) [Mass/Vol]8.3 g/dLLow13.0-17.0UnProMedica Memorial HospitalComment on above:Performed By: #### [id number] ####[facility] ([facility])[address] [place] [address]YVY (RBC) [Entitic mass]31.7 rhKdoqad75.0-33.0UnProMedica Memorial HospitalComment on above:Performed By: #### [id number] ####[facility] ([facility])[address] [place] [address]OCC (RBC) [Entitic vol] 90.5 iQTnfcan65.0-98.0UnProMedica Memorial HospitalComment on above: Performed By: #### [id number] ####[facility] ([facility])[address] [place] [address]CAYQHVWOY (10*3/UL) IN BLOOD AUTOMATED [id number] 10*3/uLNormal 150-400UnProMedica Memorial HospitalComment on above:Performed By: #### [id number] ####[facility] ([facility])[address] [place] [address]VBX (Bld) [#/Vol]2.62 10*6/uLLow4.20-5.70UnProMedica Memorial HospitalComment on above:Performed By: #### [id number] ####[facility] ([facility])[address] [place] [address]IIL (Bld) [#/Vol]10.11 10*3/uLNormal4.00-10.60UnProMedica Memorial HospitalComment on above:Performed By: #### [id number] ####[facility] ([facility])[address] [place], [place] [address]XVHUZFOTBQKSW METABOLIC PANELon 42-84-2558Ilkttgv [Mass/Vol]3.1 g/dLLow3.5-5.7UnProMedica Memorial HospitalComment on above:Performed By: #### [id number] ####[facility] ([facility])[address] [place], [place] [address]ICV [Catalytic activity/Vol]54 U/L Pimhmu33-092WlpevhqbveProMedica Memorial HospitalComment on above:Performed By: #### [id number] ####[facility] ([facility])[address] [place], [place] [address]BZI [Catalytic activity/Vol]27 U/LNormal7-52UnProMedica Memorial Hospital Comment on above:Performed By: #### [id number] ####[facility] ([facility])[address] [place], [place] [address]Cjymr gap [Moles/Vol]9 mmol/LNormal7-20UnProMedica Memorial HospitalComment on above:Performed By: #### [id number] ####[facility] ([facility])[address] [place], [place] [address]DKH [Catalytic activity/Vol]19 U/GHgkhfz20-63CncvdwwwelProMedica Memorial HospitalComment on above:Performed By: #### [id number] ####[facility] ([facility])[address] [place], [place] [address]Iazsfrsvd [Mass/Vol]2.8 mg/dLHigh0.3-1.0UnProMedica Memorial HospitalComment on above:Performed By: #### [id number] ####[facility] ([facility])[address] [place], [place] [address]Pnsdgpu [Mass/Vol]8.1 mg/dLLow8.6-10.3 [facility] HospitalComment on above:Performed By: #### [id number] ####[facility] ([facility])[address] [place], [place] [address]Jchcfjoq [Moles/Vol]99 mmol/TWajxjq48-685RxyzobopflProMedica Memorial HospitalComment on above:Performed By: #### [id number] ####[facility] ([facility])[address] [place], [place] [address]QU9 [Moles/Vol]29 mmol/RYsfcfb67-13MeptwbiogiProMedica Memorial HospitalComment on above:Performed By: #### [id number] ####[facility] ([facility])[address] [place], [place] [address]Nzlaubvcff [Mass/Vol]1.36 mg/dLHigh 0.70-1.30UnProMedica Memorial HospitalComment on above:Performed By: #### [id number] ####[facility] ([facility])[address] [place] [address]AFSHOVOTFQ FILTRATION RATE ML/MIN/1.73 SQ M.OOGFXBGVL35.3 mL/min/1.73m*2Normal>60.0 [facility] HospitalComment on above:Result Comment: [facility]???s estimated glomerular filtration rate (eG FR) will no longer include consideration of race [...] potential consequences that do not disproportionately affect anyone group of individuals. Performed By: #### [id number] ####[facility] ([facility])[address] [place] [address]Fyupodk [Mass/Vol]102 mg/iJHhtt89-478KhfuxwwuqcProMedica Memorial HospitalComment on above:Performed By: #### [id number] ####[facility] ([facility])[address] [place] [address]Qxavxasqj [Moles/Vol]4.1 mmol/LNormal 3.5-5.1UnProMedica Memorial HospitalComment on above:Performed By: #### [id number] ####[facility] ([facility])[address] [place] [address]Rhtczrk [Mass/Vol]4.9 g/dLLow6.0-8.3UnProMedica Memorial HospitalComment on above: Performed By: #### [id number] ####[facility] ([facility])[address] [place] [address]Ijciud [Moles/Vol]133 mmol/KXav833-244XanouxnozyProMedica Memorial HospitalComment on above:Performed By: #### [id number] ####[facility] ([facility])[address] [place] [address]Dfvp nitrogen [Mass/Vol]40 mg/dLHigh 7-25UnProMedica Memorial HospitalComment on above:Performed By: #### [id number] ####[facility] ([facility])[address] [place] [address]LQIF NITROGEN/CREATININE (MASS RATIO) IN SER/PLAS29.4NormalUniversMercy Health Lorain HospitalComment on above:Performed By: #### [id number] ####[facility] ([facility])[address], [place] [address]UGT ABDOMEN PELVIS W IV CONTRASTon 14-85-8258TDG ABDOMEN PELVIS W IV CONTRASTNormalUniversMercy Health Lorain HospitalDIGOXIN LEVELon 82-87-5306EXRPPGW (NG/ML) IN SER/PLAS2.3 ng/mLCritically high0.7-2UnProMedica Memorial HospitalComment on above:Performed By: #### [id number] ####[facility] ([facility])[address], [place] [address]XCBBNANAAQ AND HEMATOCRIT, BLOODon 73-21-3530Fbsejhhyif (Bld) [Volume fraction]22.8 %Low 39.0-50.0UnProMedica Memorial HospitalComment on above:Performed By: #### [id number] ####[facility] ([facility])[address] [place] [address] Hemoglobin (Bld) [Mass/Vol]7.9 g/dLLow13.0-17.0UnProMedica Memorial HospitalComment on above:Performed By: #### [id number] ####[facility] ([facility])[address], [place] [address]RYUVSJTFMde 83-13-1448Npxmqulgj [Mass/Vol]2.3 mg/dLNormal1.9-2.7UnProMedica Memorial HospitalComment on above:Performed By: #### [id number] ####[facility] ([facility])[address], [place] [address]ARIVCGDUVLwp 61-12-6034Fstlmmcgb [Mass/Vol]2.6 mg/dLNormal 2.5-5.0UnProMedica Memorial HospitalComment on above:Performed By: #### [id number] ####[facility] ([facility])[address] [address]TFHab 74-49-2960Dgazksuepqq distribution width (RBC) [Ratio]15.8 %High11.5-15.0 [facility] HospitalComment on above:Performed By: #### [id number] ####[facility] ([facility])[address] [place] [address]FWIUFQQIOVM MEAN CORPUSCULAR HEMOGLOBIN CONCENTRATION (G/DL) BY VAHNNJJJN65.2 g/sATvhi54.0-35.0 [facility] HospitalComment on above:Performed By: #### [id number] ####[facility] ([facility])[address] [place] [address]Dcuyfmlhzj (Bld) [Volume fraction]24.4 %Low39.0-50.0UnProMedica Memorial HospitalComment on above:Performed By: #### [id number] ####[facility] ([facility])[address] [place] [address]Cbehnjfzyq (Bld) [Mass/Vol]8.6 g/dLLow13.0-17.0UnProMedica Memorial HospitalComment on above:Performed By: #### [id number] ####[facility] ([facility])[address] [place] [address]AXW (RBC) [Entitic mass] 31.5 tvIhvgxt78.0-33.0UnProMedica Memorial HospitalComment on above: Performed By: #### [id number] ####[facility] ([facility])[address] [place] [address]LGQ (RBC) [Entitic vol]89.4 oTGistdi46.0-98.0UnProMedica Memorial HospitalComment on above:Performed By: #### [id number] ####[facility] ([facility])[address] [place] [address]JVXJUCKYD (10*3/UL) IN BLOOD AUTOMATED [id number] 10*3/hSVzxsez453-231CzridffnzzProMedica Memorial Hospital Comment on above:Performed By: #### [id number] ####[facility] ([facility])[address] [address]SVE (Bld) [#/Vol]2.73 10*6/uLLow4.20-5.70UnProMedica Memorial HospitalComment on above:Performed By: #### [id number] ####[facility] ([facility])[address] [place] [address]BZU (Bld) [#/Vol]12.23 10*3/uLHigh4.00-10.60UnProMedica Memorial HospitalComment on above: Performed By: #### [id number] ####[facility] ([facility])[address] [place] [address]Rwcswnmokvp distribution width (RBC) [Ratio]15.8 %High 11.5-15.0UnProMedica Memorial HospitalComment on above:Performed By: #### [id number] ####[facility] ([facility])[address] [place] [address] ERYTHROCYTE MEAN CORPUSCULAR HEMOGLOBIN CONCENTRATION (G/DL) BY DWZYNIXAK37.9 g/oPZklaaa81.0-35.0UnProMedica Memorial HospitalComment on above:Performed By: #### [id number] ####[facility] ([facility])[address], [place] [address]Jxggbnczjk (Bld) [Volume fraction]26.1 %Low39.0-50.0UnProMedica Memorial HospitalComment on above:Performed By: #### [id number] ####[facility] ([facility])[address] [address]Rvdbcfrnfg (Bld) [Mass/Vol]9.1 g/dLLow 13.0-17.0UnProMedica Memorial HospitalComment on above:Performed By: #### [id number] ####[facility] ([facility] [place] [address]FTJ (RBC) [Entitic mass]31.5 prKxytye51.0-33.0UnProMedica Memorial HospitalComment on above:Performed By: #### [id number] ####[facility] ([facility])[address] [place] [address]XQH (RBC) [Entitic vol]90.3 jRVwxami79.0-98.0UnProMedica Memorial HospitalComment on above:Performed By: #### [id number] ####[facility] ([facility])[address] [place] [address]TIENZOWVS (10*3/UL) IN BLOOD AUTOMATED [id number] 10*3/nLNkqaio292-552YqwxpftdrfProMedica Memorial Hospital Comment on above:Performed By: #### [id number] ####[facility] ([facility])[address] [place] [address]TQZ (Bld) [#/Vol]2.89 10*6/uLLow4.20-5.70UnProMedica Memorial HospitalComment on above:Performed By: #### [id number] ####[facility] ([facility])[address] [place] [address]KEG (Bld) [#/Vol]16.83 10*3/uLHigh4.00-10.60UnProMedica Memorial HospitalComment on above: Performed By: #### [id number] ####[facility] ([facility])[address], [place] [address]Mwchoaeidqp distribution width (RBC) [Ratio]15.9 %High 11.5-15.0UnProMedica Memorial HospitalComment on above:Performed By: #### [id number] ####[facility] [place] [address] ERYTHROCYTE MEAN CORPUSCULAR HEMOGLOBIN CONCENTRATION (G/DL) BY PURGJTLJP27.1 g/fZErrjoe30.0-35.0UnProMedica Memorial HospitalComment on above:Performed By: #### [id number] ####[facility] ([facility])[address] [place] [address]Nswopawtnm (Bld) [Volume fraction]26.4 %Low39.0-50.0UnProMedica Memorial HospitalComment on above:Performed By: #### [id number] ####[facility] ([facility])[address] [address]Jyfhrcntci (Bld) [Mass/Vol]9.0 g/dLLow 13.0-17.0UnProMedica Memorial HospitalComment on above:Performed By: #### [id number] ####[facility] ([facility])[address] [place] [address]MUS (RBC) [Entitic mass]31.5 vrKkogxg70.0-33.0UnProMedica Memorial HospitalComment on above:Performed By: #### [id number] ####[facility] ([facility])[address] [place] [address]JIW (RBC) [Entitic vol]92.3 sVOwjsau66.0-98.0UnProMedica Memorial HospitalComment on above:Performed By: #### [id number] ####[facility] ([facility])[address] [address]BZBSFRQRV (10*3/UL) IN BLOOD AUTOMATED [id number] 10*3/gJGulall539-940NatsfzufouProMedica Memorial Hospital Comment on above:Performed By: #### [id number] ####[facility] ([facility])[address] [place] [address]BKI (Bld) [#/Vol]2.86 10*6/uLLow4.20-5.70UnProMedica Memorial HospitalComment on above:Performed By: #### [id number] ####[facility] ([facility])[address] [place] [address]QNP (Bld) [#/Vol]14.22 10*3/uLHigh4.00-10.60University [facility] Reina Medical CenterComment on above: Performed By: #### [id number] ####[facility] ([facility])[address], [place] [address]ROAOFKDQ, URINE, RANDOMon 05-79-2169Aojpghot (U) [Moles/Vol] mmol/IGbh303-016IskhsvwkjlProMedica Memorial HospitalComment on above:Performed By: #### [id number] ####[facility] ([facility])[address] [place] [address] COMPREHENSIVE METABOLIC PANELon 97-43-6684Mkoqris [Mass/Vol]3.3 g/dLLow3.5-5.7 [facility] HospitalComment on above:Performed By: #### [id number] ####[facility] ([facility])[address], [place] [address]VGF [Catalytic activity/Vol]58 U/IFgqfhj10-065OylhjghddoProMedica Memorial HospitalComment on above:Performed By: #### [id number] ####[facility] ([facility])[address], [place] [address]CLS [Catalytic activity/Vol]32 U/LNormal7-52UnProMedica Memorial HospitalComment on above:Performed By: #### [id number] ####[facility] ([facility])[address], [place] [address]Sawtj gap [Moles/Vol]12 mmol/L Normal7-20UnProMedica Memorial HospitalComment on above:Performed By: #### [id number] ####[facility] ([facility])[address], [place] [address]WEX [Catalytic activity/Vol]24 U/EUhdmib88-46YjzjivakqxProMedica Memorial Hospital Comment on above:Performed By: #### [id number] ####[facility] ([facility])[address], [place] [address]Byigkflfl [Mass/Vol]3.0 mg/dLHigh0.3-1.0UnProMedica Memorial HospitalComment on above:Performed By: #### [id number] ####[facility] ([facility])[address], [place] [address]Vrioayy [Mass/Vol]8.5 mg/dLLow8.6-10.3UnProMedica Memorial HospitalComment on above:Performed By: #### [id number] ####[facility] ([facility])[address] [address] Chloride [Moles/Vol]99 mmol/PYodjky21-766AkfneinfagProMedica Memorial Hospital Comment on above:Performed By: #### [id number] ####[facility] ([facility])[address] [place] [address]UA3 [Moles/Vol]28 mmol/BRrrxkh95-94IjewwnghsbProMedica Memorial HospitalComment on above:Performed By: #### [id number] ####[facility] ([facility])[address] [place] [address]Vcblgncyrc [Mass/Vol]2.43 mg/dL High0.70-1.30UnProMedica Memorial HospitalComment on above:Performed By: #### [id number] ####[facility] ([facility])[address] [place] [address] GLOMERULAR FILTRATION RATE ML/MIN/1.73 SQ M.RCCSNLXEB10.1 mL/min/1.73m*2Low>60.0 [facility] HospitalComment on above:Result Comment: [facility]???s estimated glomerular filtration rate (eG FR) will no longer include consideration of race [...] potential consequences that do not disproportionately affect anyone group of individuals. Performed By: #### [id number] ####[facility] ([facility])[address] [place] [address]Ocgbvwx [Mass/Vol]104 mg/sZXick00-378YrsdfzvkgsProMedica Memorial HospitalComment on above:Performed By: #### [id number] ####[facility] ([facility])[address] [place] [address]Fwysjivja [Moles/Vol]4.1 mmol/LNormal 3.5-5.1UnProMedica Memorial HospitalComment on above:Performed By: #### [id number] ####[facility] ([facility])[address], [place] [address]Trdsafm [Mass/Vol]5.2 g/dLLow6.0-8.3UnProMedica Memorial HospitalComment on above: Performed By: #### [id number] ####[facility] ([facility])[address] [place] [address]Ywmrec [Moles/Vol]135 mmol/HWud195-051LejtyeosaxProMedica Memorial HospitalComment on above:Performed By: #### [id number] ####[facility] ([facility])[address], [place] [address]Mijg nitrogen [Mass/Vol]52 mg/dLHigh 7-25UnProMedica Memorial HospitalComment on above:Performed By: #### [id number] ####[facility] ([facility])[address], [place] [address]IZHG NITROGEN/CREATININE (MASS RATIO) IN SER/PLAS21.4NormalUniversMercy Health Lorain HospitalComment on above:Performed By: #### [id number] ####[facility] ([facility])[address], [place] [address]ZUONCZTpd 23-94-3205HXAUWRRBhtojp [facility]lower HospitalCREATININE, URINE, RANDOMon 02-24-2025 Creatinine (U) [Mass/Vol]170.0 mg/eMQimktz43-352ZdgogmujmdProMedica Memorial HospitalComment on above:Performed By: #### [id number] ####[facility] ([facility])[address], [place] [address]AKLKQULMOci 64-41-5766Rinipfbeo [Mass/Vol]2.1 mg/dLNormal1.9-2.7UnProMedica Memorial HospitalComment on above:Performed By: #### [id number] ####[facility] ([facility])[address] [place] [address]FBXWWXSBLF, URINEon 30-07-2691LNAPFQRION, MPUWD135 mOsm/kg Qxcmgc15-8059JuvweqgiddProMedica Memorial HospitalComment on above:Result Comment: Test Performed by [facility] [place] [address] - Released 02/24/2025 17:40Performed By: #### [id number] ####[facility] [id number] [address]TNZGYXOCMOhb 05-13-1065Xzyvbuism [Mass/Vol] 5.4 mg/dLHigh2.5-5.0UnProMedica Memorial HospitalComment on above: Performed By: #### [id number] ####[facility] ([facility])[address] [place] [address]HAYVUQBKN, URINE, RANDOMon 69-97-6514Egnxhueaw (U) [Moles/Vol]107 mmol/LNormalUnProMedica Memorial HospitalComment on above: Performed By: #### [id number] ####[facility] ([facility])[address], [place] [address]EKPFEL, URINE, RANDOMon 87-84-9761Bnuveu (U) [Moles/Vol]15 mmol/LNormalUnProMedica Memorial HospitalComment on above:Performed By: #### [id number] ####[facility] ([facility])[address] [place] [address] URINALYSIS WITH MICROSCOPICon 57-63-7377GCECWZKQE, TOTAL PRESENCE IN URINE NegativeNormalNegativeUnProMedica Memorial HospitalComment on above: Performed By: #### [id number] ####[facility] ([facility])[address], [place] [address]CHFCL IN URINEPresentAbnormalNone SeenUnProMedica Memorial HospitalComment on above:Performed By: #### [id number] ####[facility] ([facility])[address] [place], [place] [address]Dueqhzg (U)CloudyAbnormalClear [facility] HospitalComment on above:Performed By: #### [id number] ####[facility] ([facility])[address] [place], [place] [address]Sezlh (U)Yellow NormalColorless, Yellow, Light-YellowUnProMedica Memorial HospitalComment on above:Performed By: #### [id number] ####[facility] ([facility])[address] [place], [place] [address]UCREYTF (MG/DL) IN URINENormalNormalNormalUniversMercy Health Lorain HospitalComment on above:Performed By: #### [id number] ####[facility] ([facility])[address] [place], [place] [address]NBQHLZYHBI PRESENCE IN URINELargeAbnormalNegativeFlower HospitalComment on above: Performed By: #### [id number] ####[facility] ([facility])[address] [place], [place] [address]QZGXPVS CASTS GRADED/LPF IN URINE SEDIMENT BY MICROSCOPY3-5 Abnormal0-2UnProMedica Memorial HospitalComment on above:Performed By: #### [id number] ####[facility] ([facility])[address] [place] [address] Ketones Ql (U)NegativeNormalNegativeUnProMedica Memorial HospitalComment on above:Performed By: #### [id number] ####[facility] ([facility])[address] [place], [place] [address]IRWXVLPJW ESTERASE PRESENCE IN URINE BY TEST STRIPModerate AbnormalNegativeUnProMedica Memorial HospitalComment on above:Performed By: #### [id number] ####[facility] ([facility])[address] [place], [place] [address]QULRI (#/LPF) IN URINE SEDIMENTModerateAbnormalNone Seen, Occasional, Few [facility] HospitalComment on above:Performed By: #### [id number] ####[facility] ([facility])[address] [place], [place] [address]KQBLXRO PRESENCE IN URINENegativeNormalNegativeUnProMedica Memorial HospitalComment on above:Performed By: #### [id number] ####[facility] ([facility])[address] [address]iM (U)5.5 [pH]Normal5.0-8.0UnProMedica Memorial HospitalComment on above:Performed By: #### [id number] ####[facility] ([facility])[address] [place] [address]Olchhqb (U) [Mass/Vol]30 mg/dLAbnormal NegativeUnProMedica Memorial HospitalComment on above:Performed By: #### [id number] ####[facility] ([facility])[address], [place] [address]JIS (#/HPF) IN URINE SEDIMENT>20AbnormalNone Seen, 0-2UnProMedica Memorial HospitalComment on above:Performed By: #### [id number] ####[facility] ([facility])[address], [place] [address]Ptolketu gravity (U) [Rel density] 1.958Iwzp5.010-1.030UnProMedica Memorial HospitalComment on above: Performed By: #### [id number] ####[facility] ([facility])[address], [place] [address]RFQNKRNY EPITHELIAL CELLS (#/LPF) IN URINE SEDIMENTModerate AbnormalNone Seen, Occasional, FewUnProMedica Memorial HospitalComment on above:Performed By: #### [id number] ####[facility] ([facility])[address], [place] [address]GWQHDNICWKKD (MG/DL) IN URINENormalNormalNormalUniversMercy Health Lorain HospitalComment on above:Performed By: #### [id number] ####[facility] ([facility])[address], [place] [address]VHT (LEUKOCYTE) (#/HPF) IN URINE XRLHWTWF79-07ErmskjltDkbm Seen, 0-2UnProMedica Memorial Hospital Comment on above:Performed By: #### [id number] ####[facility] ([facility])[address] [place] [address]166jk 99-05-040621UljsvaPssbtkwgyy of [facility]edo Medical CenterBASIC METABOLIC PANELon 79-14-5534Plfja gap [Moles/Vol]15 mmol/LNormal7-20 [facility] HospitalComment on above:Performed By: #### [id number] ####[facility] ([facility])[address], [place] [address]Fcqfznu [Mass/Vol]9.1 mg/dLNormal8.6-10.3UnProMedica Memorial HospitalComment on above:Performed By: #### [id number] ####[facility] ([facility])[address] [place], [place] [address]Zlwdzvox [Moles/Vol]102 mmol/LJmxltm14-647WisqbrefnjProMedica Memorial HospitalComment on above:Performed By: #### [id number] ####[facility] ([facility])[address] [place], [place] [address]MJ5 [Moles/Vol]25 mmol/LNormal 21-31UnProMedica Memorial HospitalComment on above:Performed By: #### [id number] ####[facility] ([facility])[address] [place], [place] [address]Saiffukmoa [Mass/Vol]2.01 mg/dLHigh0.70-1.30UnProMedica Memorial HospitalComment on above:Performed By: #### [id number] ####[facility] ([facility])[address] [place], [place] [address]ZYRYUHYARZ FILTRATION RATE ML/MIN/1.73 SQ M.UPQMKISQU47.7 mL/min/1.73m*2Low>60.0UnProMedica Memorial HospitalComment on above:Result Comment: [facility]???s estimated glomerular filtration rate (eGFR) will [...] potential consequences that do not disproportionately affect anyone group of individuals.Performed By: #### [id number] ####[facility] ([facility])[address], [place] [address]Driguyd [Mass/Vol]128 mg/sBJtln52-300FzjzknhtmpProMedica Memorial HospitalComment on above:Performed By: #### [id number] ####[facility] ([facility])[address] [place], [place] [address]Oybqwyexw [Moles/Vol]4.5 mmol/L Normal3.5-5.1UnProMedica Memorial HospitalComment on above:Performed By: #### [id number] ####[facility] ([facility])[address] [place] [address] Sodium [Moles/Vol]137 mmol/PJfxbdl953-282NzmcutmvucProMedica Memorial Hospital Comment on above:Performed By: #### [id number] ####[facility] ([facility])[address] [place], [place] [address]Fxbw nitrogen [Mass/Vol]35 mg/dLHigh7-25UnProMedica Memorial HospitalComment on above:Performed By: #### [id number] ####[facility] ([facility])[address] [place], [place] [address]ZAYZ NITROGEN/CREATININE (MASS RATIO) IN SER/PLAS17.4NormalUniThe Christ HospitalComment on above:Performed By: #### [id number] ####[facility] ([facility])[address] [place], [place] [address]CIMRE CULTUREon 52-06-1805Bjgdlcdr identified Cx Nom (Bld)No growth at 5 daysNoalUniThe Christ HospitalComment on above: Performed By: #### [id number] ####[facility] ([facility])[address] [place] [place] [address]Nddtdyaf identified Cx Nom (Bld)No growth at 5 daysNormal [facility] HospitalComment on above:Order Comment: From a different site than #1.Performed By: #### [id number] ####[facility] ([facility])[address] [address]AXByk 16-16-2214Jgxgdtatyqr distribution width (RBC) [Ratio]15.9 %High11.5-15.0UnProMedica Memorial HospitalComment on above:Performed By: #### [id number] ####[facility] ([facility])[address] [place] [address]UCODWCJXHGY MEAN CORPUSCULAR HEMOGLOBIN CONCENTRATION (G/DL) BY SLIOSGSQN80.6 g/eWGqkanl54.0-35.0UnProMedica Memorial HospitalComment on above:Performed By: #### [id number] ####[facility] ([facility])[address] [place] [address]Oosatlpruz (Bld) [Volume fraction]25.4 %Low39.0-50.0UnProMedica Memorial HospitalComment on above: Performed By: #### [id number] ####[facility] ([facility])[address] [place] [address]Mdwajimwei (Bld) [Mass/Vol]8.8 g/dLLow13.0-17.0UnProMedica Memorial HospitalComment on above:Performed By: #### [id number] ####[facility] ([facility])[address] [place] [address]WIR (RBC) [Entitic mass] 31.5 jkTrxjeh08.0-33.0UnProMedica Memorial HospitalComment on above: Performed By: #### [id number] ####[facility] [place] [address]LBL (RBC) [Entitic vol]91.0 uVXjxuto79.0-98.0UnProMedica Memorial HospitalComment on above:Performed By: #### [id number] ####[facility] ([facility])[address] [place] [address]MDHFTTUAW (10*3/UL) IN BLOOD AUTOMATED DEGZE735 10*3/cMIddcxd651-820XhivnqudhsProMedica Memorial Hospital Comment on above:Performed By: #### [id number] ####[facility] ([facility])[address] [address]DNB (Bld) [#/Vol]2.79 10*6/uLLow4.20-5.70UnProMedica Memorial HospitalComment on above:Performed By: #### [id number] ####[facility] ([facility])[address] [address]NFK (Bld) [#/Vol]14.02 10*3/uLHigh4.00-10.60UnProMedica Memorial HospitalComment on above: Performed By: #### [id number] ####[facility] ([facility])[address], [place] [address]Xvwujwkvwsr distribution width (RBC) [Ratio]15.9 %High 11.5-15.0UnProMedica Memorial HospitalComment on above:Performed By: #### [id number] ####[facility] ([facility])[address] [place] [address] ERYTHROCYTE MEAN CORPUSCULAR HEMOGLOBIN CONCENTRATION (G/DL) BY MCEMYPOCJ60.4 g/nUPbdg87.0-35.0UnProMedica Memorial HospitalComment on above:Performed By: #### [id number] ####[facility] ([facility])[address] [place] [address] Hematocrit (Bld) [Volume fraction]28.0 %Low39.0-50.0UnProMedica Memorial HospitalComment on above:Performed By: #### [id number] ####[facility], [place] [address]Rbxmbrbztu (Bld) [Mass/Vol]9.9 g/dLLow 13.0-17.0UnProMedica Memorial HospitalComment on above:Performed By: #### [id number] ####[facility] ([facility])[address] [place] [address]SML (RBC) [Entitic mass]31.6 thVrbhva41.0-33.0UnProMedica Memorial HospitalComment on above:Performed By: #### [id number] ####[facility] ([facility])[address] [place] [place] [address]UUI (RBC) [Entitic vol]89.5 nUSmwnzb76.0-98.0UnProMedica Memorial HospitalComment on above:Performed By: #### [id number] ####[facility] ([facility])[address] [place] [address]AXXJFSXJO (10*3/UL) IN BLOOD AUTOMATED IASVI752 10*3/sMEsokku058-536YrxhlleerrProMedica Memorial Hospital Comment on above:Performed By: #### [id number] ####[facility] ([facility])[address] [place] [address]HGE (Bld) [#/Vol]3.13 10*6/uLLow4.20-5.70UnProMedica Memorial HospitalComment on above:Performed By: #### [id number] ####[facility] ([facility])[address] [place] [address]PXP (Bld) [#/Vol]16.62 10*3/uLHigh4.00-10.60UnProMedica Memorial HospitalComment on above: Performed By: #### [id number] ####[facility] ([facility])[address] [place] [address]Ryhrjhaowet distribution width (RBC) [Ratio]15.8 %High 11.5-15.0UnProMedica Memorial HospitalComment on above:Performed By: #### [id number] ####[facility] ([facility])[address] [place] [address] ERYTHROCYTE MEAN CORPUSCULAR HEMOGLOBIN CONCENTRATION (G/DL) BY GBJMLZEXL53.3 g/tIZxhh84.0-35.0UnProMedica Memorial HospitalComment on above:Performed By: #### [id number] ####[facility] ([facility])[address] [place] [address] Hematocrit (Bld) [Volume fraction]29.5 %Low39.0-50.0UnProMedica Memorial HospitalComment on above:Performed By: #### [id number] ####[facility] ([facility])[address] [place] [address]Onbnawcpeh (Bld) [Mass/Vol]10.4 g/dL Low13.0-17.0UnProMedica Memorial HospitalComment on above:Performed By: #### [id number] ####[facility] ([facility])[address] [place] [address]HHM (RBC) [Entitic mass]31.6 oyJtlvvc66.0-33.0Un[facility] Hospital Comment on above:Performed By: #### [id number] ####[facility] ([facility])[address] [place] [address]WBD (RBC) [Entitic vol]89.7 oQVzforr32.0-98.0 [facility] HospitalComment on above:Performed By: #### [id number] ####[facility] ([facility])[address] [place] [address]DMKXNZHZX (10*3/UL) IN BLOOD AUTOMATED LLJZX421 10*3/gYApzcwu397-189AfloiaqxusProMedica Memorial HospitalComment on above:Performed By: #### [id number] ####[facility] ([facility])[address] [place] [address]EPR (Bld) [#/Vol]3.29 10*6/uLLow 4.20-5.70UnProMedica Memorial HospitalComment on above:Performed By: #### [id number] ####[facility] ([facility])[address] [place] [address]IAP (Bld) [#/Vol]15.65 10*3/uLHigh4.00-10.60UnProMedica Memorial HospitalComment on above:Performed By: #### [id number] ####[facility] ([facility])[address] [place] [address]Ycmqdluvccq distribution width (RBC) [Ratio]15.8 %High 11.5-15.0UnProMedica Memorial HospitalComment on above:Performed By: #### [id number] ####[facility] ([facility])[address] [place] [address] ERYTHROCYTE MEAN CORPUSCULAR HEMOGLOBIN CONCENTRATION (G/DL) BY ONZHMRUDO40.0 g/zNBcspjb70.0-35.0UnProMedica Memorial HospitalComment on above:Performed By: #### [id number] ####[facility] ([facility])[address] [place] [address]Kvpyexgsba (Bld) [Volume fraction]31.1 %Low39.0-50.0UnProMedica Memorial HospitalComment on above:Performed By: #### [id number] ####[facility] ([facility])[address] [place] [address]Blwpuedcpn (Bld) [Mass/Vol]10.9 g/dL Low13.0-17.0UnProMedica Memorial HospitalComment on above:Performed By: #### [id number] ####[facility] ([facility])[address] [place] [address]WBL (RBC) [Entitic mass]31.5 ceXzllok18.0-33.0UnPro[facility] Hospital Comment on above:Performed By: #### [id number] ####[facility] ([facility])[address] [place] [address]KIX (RBC) [Entitic vol]89.9 uJWroqzq68.0-98.0 [facility] HospitalComment on above:Performed By: #### [id number] ####[facility] ([facility])[address] [place] [address]FVDDJMFBP (10*3/UL) IN BLOOD AUTOMATED TLESY155 10*3/mZKhwgou032-823YouedcpwzxProMedica Memorial HospitalComment on above:Performed By: #### [id number] ####[facility] ([facility])[address], [place] [address]TAC (Bld) [#/Vol]3.46 10*6/uLLow 4.20-5.70UnProMedica Memorial HospitalComment on above:Performed By: #### [id number] ####[facility] ([facility])[address] [place], [place] [address]LYI (Bld) [#/Vol]14.82 10*3/uLHigh4.00-10.60UnProMedica Memorial HospitalComment on above:Performed By: #### [id number] ####[facility] ([facility])[address], [place] [address]Ijgcawwljfa distribution width (RBC) [Ratio]15.9 %High 11.5-15.0UnProMedica Memorial HospitalComment on above:Performed By: #### [id number] ####[facility] ([facility])[address] [place] [address] ERYTHROCYTE MEAN CORPUSCULAR HEMOGLOBIN CONCENTRATION (G/DL) BY BPRVKTNBT54.6 g/rGDtutkk85.0-35.0UnProMedica Memorial HospitalComment on above:Performed By: #### [id number] ####[facility] ([facility])[address] [place], [place] [address]Gauadsilxv (Bld) [Volume fraction]32.1 %Low39.0-50.0UnProMedica Memorial HospitalComment on above:Performed By: #### [id number] ####[facility] ([facility])[address], [place] [address]Lwcnyxeumm (Bld) [Mass/Vol]11.1 g/dL Low13.0-17.0UnProMedica Memorial HospitalComment on above:Performed By: #### [id number] ####[facility] ([facility])[address], [place] [address]YKD (RBC) [Entitic mass]31.4 xqHuwrxv93.0-33.0UnProMedica Memorial Hospital Comment on above:Performed By: #### [id number] ####[facility] ([facility])[address] [address]JKJ (RBC) [Entitic vol]90.9 oBHujgqx96.0-98.0 [facility] HospitalComment on above:Performed By: #### [id number] ####[facility] ([facility])[address] [address]FIRMOGMNL (10*3/UL) IN BLOOD AUTOMATED [id number] 10*3/qZHvstie371-275QgeiqeuveqProMedica Memorial HospitalComment on above:Performed By: #### [id number] ####[facility] ([facility])[address] [address]SYU (Bld) [#/Vol]3.53 10*6/uLLow 4.20-5.70UnProMedica Memorial HospitalComment on above:Performed By: #### [id number] ####[facility] ([facility])[address] [address]YDI (Bld) [#/Vol]13.82 10*3/uLHigh4.00-10.60UnProMedica Memorial HospitalComment on above:Performed By: #### [id number] ####[facility] ([facility])[address] [address]SBLLVVNMZVLYE METABOLIC PANELon 38-50-5985Hrovhbx [Mass/Vol] 3.5 g/dLNormal3.5-5.7UnProMedica Memorial HospitalComment on above: Performed By: #### [id number] ####[facility] ([facility])[address] [place] [address]ACY [Catalytic activity/Vol]61 U/LTsoymf46-751VlpvsvhnygProMedica Memorial HospitalComment on above:Performed By: #### [id number] ####[facility] ([facility])[address], [place] [address]FGU [Catalytic activity/Vol]32 U/L Normal7-52UnProMedica Memorial HospitalComment on above:Performed By: #### [id number] ####[facility] ([facility])[address] [place], [place] [address]Veybt gap [Moles/Vol]16 mmol/LNormal7-20UnProMedica Memorial HospitalComment on above:Performed By: #### [id number] ####[facility] ([facility])[address] [place], [place] [address]LWK [Catalytic activity/Vol]25 U/ZUcocym74-09CnhnwoxapgProMedica Memorial HospitalComment on above:Performed By: #### [id number] ####[facility] ([facility])[address] [place], [place] [address]Oxteklioz [Mass/Vol]3.4 mg/dLHigh 0.3-1.0UnProMedica Memorial HospitalComment on above:Performed By: #### [id number] ####[facility] ([facility])[address] [place], [place] [address]Isnufte [Mass/Vol]8.9 mg/dLNormal8.6-10.3UnProMedica Memorial HospitalComment on above:Performed By: #### [id number] ####[facility] ([facility])[address] [place], [place] [address]Mcozhwbl [Moles/Vol]101 mmol/OLuqmek55-697SmkgmogdizProMedica Memorial HospitalComment on above:Performed By: #### [id number] ####[facility] ([facility])[address] [place], [place] [address]HO4 [Moles/Vol]24 mmol/LNormal 21-31UnProMedica Memorial HospitalComment on above:Performed By: #### [id number] ####[facility] ([facility])[address] [place], [place] [address]Yzhbatvjez [Mass/Vol]2.27 mg/dLHigh0.70-1.30UnProMedica Memorial HospitalComment on above:Performed By: #### [id number] ####[facility] ([facility])[address] [place], [place] [address]JDHSTNTFEP FILTRATION RATE ML/MIN/1.73 SQ M.UDXIMZDBF63.6 mL/min/1.73m*2Low>60.0UnProMedica Memorial HospitalComment on above:Result Comment: [facility]???s estimated glomerular filtration rate (eGFR) will [...] potential consequences that do not disproportionately affect anyone group of individuals.Performed By: #### [id number] ####[facility] ([facility])[address] [place], [place] [address]Asltacn [Mass/Vol]118 mg/nZUfwr29-762PtajyixnksProMedica Memorial HospitalComment on above:Performed By: #### [id number] ####[facility] ([facility])[address] [place], [place] [address]Ucrjjkfyc [Moles/Vol]4.5 mmol/L Normal3.5-5.1UnProMedica Memorial HospitalComment on above:Performed By: #### [id number] ####[facility] ([facility])[address] [place] [address] Protein [Mass/Vol]5.5 g/dLLow6.0-8.3UnProMedica Memorial HospitalComment on above:Performed By: #### [id number] ####[facility] ([facility])[address] [place], [place] [address]Rcmbgq [Moles/Vol]136 mmol/FLgohai534-024XjbxmixdecProMedica Memorial HospitalComment on above:Performed By: #### [id number] ####[facility] ([facility])[address] [place], [place] [address]Rglm nitrogen [Mass/Vol]39 mg/dLHigh 7-25UnProMedica Memorial HospitalComment on above:Performed By: #### [id number] ####[facility] ([facility])[address] [place], [place] [address]AXHS NITROGEN/CREATININE (MASS RATIO) IN SER/PLAS17.2NormalUnProMedica Memorial HospitalComment on above:Performed By: #### [id number] ####[facility] ([facility])[address] [place] [address]Vjrhhqnwhvcy/Specialist Noteon 82-42-1444Jmouchijitaa/Specialist Note [id number]#1.00OTTuscarawas Hospital LACTIC ACID WITH 4 HOUR REFLEXon 57-86-6159CBCZSRR (MMOL/L) IN SER/PLAS1.8 mmol/LNormal0.5-2.2UnProMedica Memorial HospitalComment on above:Performed By: #### [id number] ####[facility] ([facility])[address] [place], [place] [address]AWQHVLQOYtd 83-45-1968Epjatqedb [Mass/Vol]2.0 mg/dLNormal1.9-2.7UnProMedica Memorial HospitalComment on above:Performed By: #### [id number] ####[facility] ([facility])[address] [place], [place] [address]Boxsikn Recordson 95-63-1752Fqtfttp [id number]#1.00OTGTSelect Medical Specialty Hospital - Southeast OhioOutside Records [id number]#1.00OTTuscarawas Hospital PHOSPHORUSon 15-53-6063Iqvxrkbpz [Mass/Vol]6.1 mg/dLHigh2.5-5.0UnProMedica Memorial HospitalComment on above:Performed By: #### [id number] ####[facility] ([facility])[address] [place], [place] [address]RSBQ-KO (HEPARIN LEVEL)on 75-21-3476JIUPNEH UNFRACTIONATED (U/ML) IN PPP BY CHROMOGENIC METHOD0.55 IU/mL Normal0.3-0.7UnProMedica Memorial HospitalComment on above:Result Comment: Rivaroxaban and Apixaban will interfere with the anti Xa assay used to monitor UFH and LMWH.Performed By: #### [id number] ####[facility] ([facility])[address] [place] [address]NWLMDHW UNFRACTIONATED (U/ML) IN PPP BY CHROMOGENIC METHOD0.71 IU/mLHigh0.3-0.7UnProMedica Memorial HospitalComment on above: Result Comment: Rivaroxaban and Apixaban will interfere with the anti Xa assay used to monitor UFH and LMWH.Performed By: #### [id number] ####[facility] ([facility])[address] [address]QNFWJ CULTUREon 45-16-0764Euxupenm identified Cx Nom (Bld)No growth at 5 daysNormalUniThe Christ HospitalComment on above:Order Comment: From a different site than #1.Performed By: #### [id number] ####[facility] ([facility])[address] [place] [address] CBCon 59-96-3967Iqgqpgcnnoo distribution width (RBC) [Ratio]15.9 %High11.5-15.0 [facility] HospitalComment on above:Performed By: #### [id number] ####[facility] ([facility])[address] [place], [place] [address]FQPRQNICGYH MEAN CORPUSCULAR HEMOGLOBIN CONCENTRATION (G/DL) BY EJREBBQDW03.1 g/dLNormal 32.0-35.0UnProMedica Memorial HospitalComment on above:Performed By: #### [id number] ####[facility] ([facility])[address] [place] [address] Hematocrit (Bld) [Volume fraction]33.4 %Low39.0-50.0UnProMedica Memorial HospitalComment on above:Performed By: #### [id number] ####[facility] ([facility])[address] [place], [place] [address]Eurznppsnu (Bld) [Mass/Vol]11.4 g/dL Low13.0-17.0UnProMedica Memorial HospitalComment on above:Performed By: #### [id number] ####[facility] ([facility])[address] [place] [address]UVZ (RBC) [Entitic mass]31.1 qzKxogxk26.0-33.0UnProMedica Memorial Hospital Comment on above:Performed By: #### [id number] ####[facility] [place] [address]EOM (RBC) [Entitic vol]91.3 nVCzxwxr13.0-98.0 [facility] HospitalComment on above:Performed By: #### [id number] ####[facility] ([facility])[address] [place] [address]BQXYZEKYL (10*3/UL) IN BLOOD AUTOMATED [id number] 10*3/eNQmhykw267-794KvrzwkypbpProMedica Memorial HospitalComment on above:Performed By: #### [id number] ####[facility] ([facility])[address] [place] [address]AMX (Bld) [#/Vol]3.66 10*6/uLLow 4.20-5.70UnProMedica Memorial HospitalComment on above:Performed By: #### [id number] ####[facility] ([facility])[address] [place] [address]VNL (Bld) [#/Vol]10.74 10*3/uLHigh4.00-10.60UnProMedica Memorial HospitalComment on above:Performed By: #### [id number] ####[facility] ([facility])[address] [place], [place] [address]Lzkxcdrhbtu distribution width (RBC) [Ratio]15.8 %High 11.5-15.0UnProMedica Memorial HospitalComment on above:Performed By: #### [id number] ####[facility] ([facility])[address] [place] [address] ERYTHROCYTE MEAN CORPUSCULAR HEMOGLOBIN CONCENTRATION (G/DL) BY EGTAFAEZS01.7 g/vNQbsebj18.0-35.0UnProMedica Memorial HospitalComment on above:Performed By: #### [id number] ####[facility] ([facility])[address] [place] [place] [address]Bbnvjvmbcb (Bld) [Volume fraction]40.1 %Jcvbte74.0-50.0UnProMedica Memorial HospitalComment on above:Performed By: #### [id number] ####[facility] ([facility])[address] [place] [address]Wfbggtfoza (Bld) [Mass/Vol]13.5 g/dL Egqovn85.0-17.0UnProMedica Memorial HospitalComment on above:Performed By: #### [id number] ####[facility] ([facility])[address] [place] [address]WNA (RBC) [Entitic mass]30.9 rpWvxeth92.0-33.0UnProMedica Memorial Hospital Comment on above:Performed By: #### [id number] ####[facility] ([facility])[address] [place] [place] [address]CPQ (RBC) [Entitic vol]91.8 sVTabnch99.0-98.0 [facility] HospitalComment on above:Performed By: #### [id number] ####[facility] ([facility])[address] [place] [address]IBEKCLIWG (10*3/UL) IN BLOOD AUTOMATED [id number] 10*3/vVTdgbfz188-997MyliqvxlxjProMedica Memorial HospitalComment on above:Performed By: #### [id number] ####[facility] ([facility])[address] [place] [address]TPZ (Bld) [#/Vol]4.37 10*6/uLNormal 4.20-5.70UnProMedica Memorial HospitalComment on above:Performed By: #### [id number] ####[facility] ([facility])[address] [place] [address]MHS (Bld) [#/Vol]11.61 10*3/uLHigh4.00-10.60UnProMedica Memorial HospitalComment on above:Performed By: #### [id number] ####[facility] ([facility])[address] [address]QXVGBSVYIHI MEAN CORPUSCULAR HEMOGLOBIN CONCENTRATION (G/DL) BY PJNLTDROC78.2 g/aWWdgelj47.0-35.0UnProMedica Memorial HospitalComment on above:Performed By: #### [id number] ####[facility] ([facility])[address] [place] [address]Nlmrnbgbjf (Bld) [Volume fraction]45.0 %Ikzpfh97.0-50.0 [facility] HospitalComment on above:Performed By: #### [id number] ####[facility] ([facility])[address] [place] [address]Pvvftwyznf (Bld) [Mass/Vol]15.4 g/wFGogoso31.0-17.0UnProMedica Memorial HospitalComment on above:Performed By: #### [id number] ####[facility] ([facility])[address] [place] [address]ZEO (RBC) [Entitic mass]31.3 ssFvzxdi94.0-33.0UnProMedica Memorial HospitalComment on above:Performed By: #### [id number] ####[facility] ([facility])[address] [place] [address]KNS (RBC) [Entitic vol] 91.5 yGFrnxta70.0-98.0UnProMedica Memorial HospitalComment on above: Performed By: #### [id number] ####[facility] ([facility])[address] [place] [address]PNIQAHKWM (10*3/UL) IN BLOOD AUTOMATED IDWAT115 10*3/uLNormal 150-400UnProMedica Memorial HospitalComment on above:Performed By: #### [id number] ####[facility] [place] [address]PIJ (Bld) [#/Vol]4.92 10*6/uLNormal4.20-5.70UnProMedica Memorial HospitalComment on above:Performed By: #### [id number] ####[facility] ([facility])[address] [place] [address]UQC (Bld) [#/Vol]12.27 10*3/uLHigh4.00-10.60UnProMedica Memorial HospitalComment on above:Performed By: #### [id number] ####[facility] ([facility])[address] [place], [place] [address]AZR WITH AUTO DIFFERENTIALon 93-46-5143Fecbgvshi (Bld) [#/Vol]0.02 10*3/uLNormal0.00-0.20 [facility] HospitalComment on above:Performed By: #### [id number] ####[facility] ([facility])[address] [place], [place] [address]Wisjujjlp/100 WBC (Bld)0.2 %Normal0.0-1.0UnProMedica Memorial HospitalComment on above: Performed By: #### [id number] ####[facility] ([facility])[address], [place] [address]Niwosbnigcz (Bld) [#/Vol]0.00 10*3/uLNormal0.00-0.50 [facility] HospitalComment on above:Performed By: #### [id number] ####[facility] ([facility])[address] [place], [place] [address]Qfwygshpldn/100 WBC (Bld)0.0 %Normal0.0-6.0UnProMedica Memorial HospitalComment on above: Performed By: #### [id number] ####[facility] ([facility])[address] [place], [place] [address]Ffqeakbggsq distribution width (RBC) [Ratio]15.9 %High 11.5-15.0UnProMedica Memorial HospitalComment on above:Performed By: #### [id number] ####[facility] ([facility])[address] [place] [address] Performed By: #### [id number] ####[facility] ([facility])[address] [place], [place] [address]IJFFDVWKUKJ MEAN CORPUSCULAR HEMOGLOBIN CONCENTRATION (G/DL) BY LXECKRLRN93.9 g/fZGnabvc09.0-35.0UnProMedica Memorial HospitalComment on above:Performed By: #### [id number] ####[facility] ([facility])[address] [place], [place] [address]Ydrkikvrqf (Bld) [Volume fraction]42.5 %Psbeud64.0-50.0 [facility] HospitalComment on above:Performed By: #### [id number] ####[facility] ([facility])[address] [place], [place] [address]Lhitaewsiq (Bld) [Mass/Vol]14.0 g/eRBzcfhx18.0-17.0UnProMedica Memorial HospitalComment on above:Performed By: #### [id number] ####[facility] ([facility])[address] [place], [place] [address]Eygwvltt granulocytes (Bld) [#/Vol]0.05 10*3/uLNormal 0.00-0.20UnProMedica Memorial HospitalComment on above:Performed By: #### [id number] ####[facility] ([facility])[address] [place], [place] [address]Noclzfuy granulocytes/100 WBC (Bld)0.5 %Normal0.0-1.0UnProMedica Memorial Hospital Comment on above:Performed By: #### [id number] ####[facility] ([facility])[address] [place], [place] [address]Quqdafstvyg (Bld) [#/Vol]1.14 10*3/uLLow1.20-4.00 [facility] HospitalComment on above:Performed By: #### [id number] ####[facility] ([facility])[address] [place], [place] [address]Tpyvfzhwrqn/100 WBC (Bld)10.6 %Low20.0-45.0UnProMedica Memorial HospitalComment on above: Performed By: #### [id number] ####[facility] ([facility])[address] [place] [address]SPX (RBC) [Entitic mass]30.8 zcGlgetv74.0-33.0UnProMedica Memorial HospitalComment on above:Performed By: #### [id number] ####[facility] ([facility])[address] [place], [place] [address]FDZ (RBC) [Entitic vol] 93.4 xJGtgdzd50.0-98.0UnProMedica Memorial HospitalComment on above: Performed By: #### [id number] ####[facility] ([facility])[address], [place] [address]Qbifavsda (Bld) [#/Vol]0.73 10*3/uLNormal0.10-1.00UnProMedica Memorial HospitalComment on above:Performed By: #### [id number] ####[facility] ([facility])[address] [place], [place] [address]Wxkgqwhcl/100 WBC (Bld) 6.8 %Normal5.0-12.0UnProMedica Memorial HospitalComment on above:Performed By: #### [id number] ####[facility] ([facility])[address] [place], [place] [address]Lfeyyxzzzye (Bld) [#/Vol]8.79 10*3/uLHigh1.60-7.60UnProMedica Memorial HospitalComment on above:Performed By: #### [id number] ####[facility] ([facility])[address] [place], [place] [address]Avfmzduhetp/100 WBC (Bld)81.9 %High 40.0-72.0UnProMedica Memorial HospitalComment on above:Performed By: #### [id number] ####[facility] ([facility])[address] [place], [place] [address]XJPE (PER 100 WBCS) BY AUTOMATED COUNT0.0 %Awcrok3CketrrcwypProMedica Memorial Hospital Comment on above:Performed By: #### [id number] ####[facility] ([facility])[address] [address]YYEZFVFZQ (10*3/UL) IN BLOOD AUTOMATED UBSKQ133 10*3/aWRmlewi505-477LnitoqsussProMedica Memorial HospitalComment on above: Performed By: #### [id number] ####[facility] ([facility])[address] [place] [address]XSW (Bld) [#/Vol]4.55 10*6/uLNormal4.20-5.70UnProMedica Memorial HospitalComment on above:Performed By: #### [id number] ####[facility] ([facility])[address] [place] [address]QKJ (Bld) [#/Vol]10.73 10*3/uLHigh4.00-10.60UnProMedica Memorial HospitalComment on above: Performed By: #### [id number] ####[facility] ([facility])[address] [place], [place] [address]WPFDSPKVWGMET METABOLIC PANELon 62-86-9881Bwsdvln [Mass/Vol] 4.0 g/dLNormal3.5-5.7UnProMedica Memorial HospitalComment on above: Performed By: #### [id number] ####[facility] ([facility])[address] [place], [place] [address]Dzdnfbvys By: #### [id number] ####[facility] ([facility])[address] [place], [place] [address]IRT [Catalytic activity/Vol]70 U/MHubyiy93-514PzgpemiwczProMedica Memorial HospitalComment on above:Performed By: #### [id number] ####[facility] ([facility])[address] [place], [place] [address]QWL [Catalytic activity/Vol]28 U/L Normal7-52UnProMedica Memorial HospitalComment on above:Performed By: #### [id number] ####[facility] ([facility])[address] [place], [place] [address]Baosp gap [Moles/Vol]16 mmol/LNormal7-20UnProMedica Memorial HospitalComment on above:Performed By: #### [id number] ####[facility] ([facility])[address] [place], [place] [address]VDM [Catalytic activity/Vol]22 U/LOrfjtl03-22WpogazwvuaProMedica Memorial HospitalComment on above:Performed By: #### [id number] ####[facility] ([facility])[address] [place], [place] [address]Jbjjghqyq By: #### LAB20 ####[facility] ([facility])[address] [place], [place] [address]Flyymcndt [Mass/Vol]5.1 mg/dLHigh0.3-1.0UnProMedica Memorial HospitalComment on above:Performed By: #### [id number] ####[facility] ([facility])[address] [place] [address] Calcium [Mass/Vol]9.4 mg/dLNormal8.6-10.3UnProMedica Memorial Hospital Comment on above:Performed By: #### [id number] ####[facility] ([facility])[address] [place], [place] [address]Wczppgik [Moles/Vol]104 mmol/JSxbqmc84-931 [facility] HospitalComment on above:Performed By: #### [id number] ####[facility] ([facility])[address] [place], [place] [address]EG0 [Moles/Vol] 24 mmol/HQhnzic19-66YfqmpqoznwProMedica Memorial HospitalComment on above: Performed By: #### [id number] ####[facility] ([facility])[address] [place], [place] [address]Rbbmxwszrz [Mass/Vol]1.43 mg/dLHigh0.70-1.30UnProMedica Memorial HospitalComment on above:Performed By: #### [id number] ####[facility] ([facility])[address] [place] [address]MOIRZSSJAW FILTRATION RATE ML/MIN/1.73 SQ M.FFFPGRWJV04.8 mL/min/1.73m*2Low>60.0UnProMedica Memorial Hospital Comment on above:Result Comment: [facility]???s estimated glomerular filtration rate (eGFR) will no longer include consideration of race in its calculation. The [employer]???s eGFR Task Force developed new recommendations for the estimation of the glomerular filtration ra te in the [place] They recommend immediate implementation of the new equation refit without the race variable in all laboratories because the calculation does not include race. In addition to not including race in the calculation and reporting, it included diversity in its development, and has acceptable performance characteristics and potential consequences that do not disproportionately affect anyone group of individuals.Performed By: #### [id number] ####[facility] ([facility])[address] [place] [address]Ydekjjk [Mass/Vol]134 mg/hHHofr47-313JwdzysonmwProMedica Memorial HospitalComment on above:Performed By: #### [id number] ####[facility] ([facility])[address] [place] [address]Unkyjgjyy [Moles/Vol]4.5 mmol/LNormal3.5-5.1UnProMedica Memorial HospitalComment on above:Performed By: #### [id number] ####[facility] ([facility])[address], [place] [address]Bqkgqxs [Mass/Vol]6.2 g/dLNormal 6.0-8.3UnProMedica Memorial HospitalComment on above:Performed By: #### [id number] ####[facility] ([facility])[address] [place], [place] [address]Ztkexv [Moles/Vol]139 mmol/ZOljmnp154-250KsfjzbmqdtProMedica Memorial HospitalComment on above:Performed By: #### [id number] ####[facility] ([facility])[address] [place], [place] [address]Wzrc nitrogen [Mass/Vol]27 mg/dLHigh7-25UnProMedica Memorial HospitalComment on above:Performed By: #### [id number] ####[facility] ([facility])[address] [place], [place] [address]XVFB NITROGEN/CREATININE (MASS RATIO) IN SER/PLAS18.9NormalUniThe Christ HospitalComment on above: Performed By: #### [id number] ####[facility] ([facility])[address] [place], [place] [address]JHCEBGDha [id number] of [facility] CONSULTNormalUniversMercy Health Lorain HospitalCT ABDOMEN PELVIS W IV CONTRAST on [id number] ABDOMEN PELVIS W IV CONTRASTInvalid Interpretation Code Flower HospitalCT CHEST W IV CONTRASTon [id number] CHEST W IV CONTRASTInvalid Interpretation CodeUnProMedica Memorial Hospital HEMOGLOBIN AND HEMATOCRIT, BLOODon 32-40-9157Zmbjrquups (Bld) [Volume fraction] 42.9 %Ifuayv20.0-50.0UnProMedica Memorial HospitalComment on above: Performed By: #### [id number] ####[facility] ([facility])[address] [place], [place] [address]Lotcrueevs (Bld) [Mass/Vol]14.5 g/bIOytcxv28.0-17.0UnProMedica Memorial HospitalComment on above:Performed By: #### [id number] ####[facility] ([facility])[address] [place], [place] [address]BOFTEJL FUNCTION PANELon 19-51-4033UNX [Catalytic activity/Vol]72 U/AWqfnbk44-017FqsbzpzghtProMedica Memorial HospitalComment on above:Performed By: #### [id number] ####[facility] ([facility])[address] [place], [place] [address]SYW [Catalytic activity/Vol]30 U/L Normal7-52UnProMedica Memorial HospitalComment on above:Performed By: #### [id number] ####[facility] [place], [place] [address]Yxslugrag [Mass/Vol]4.8 mg/dLHigh0.3-1.0UnProMedica Memorial HospitalComment on above:Performed By: #### [id number] ####[facility] ([facility])[address] [place] [address]Ryknctrsd [Mass/Vol]1.1 mg/dLHigh0-0.2UnProMedica Memorial HospitalComment on above:Performed By: #### [id number] ####[facility] ([facility])[address] [place] [address]Bkbturj [Mass/Vol]6.1 g/dLNormal 6.0-8.3UnProMedica Memorial HospitalComment on above:Performed By: #### [id number] ####[facility] ([facility])[address] [place] [address]VAVR SENSITIVITY TROPONIN Ion 10-65-1973HB TROPONIN I (NG/L)27 ng/LHigh<20UnProMedica Memorial HospitalComment on above:Performed By: #### [id number] ####[facility] ([facility])[address] [place] [address]DR TROPONIN I (NG/L)31 ng/LHigh<20UnProMedica Memorial HospitalComment on above:Performed By: #### [id number] ####[facility] ([facility])[address] [place] [address]MJ on 68-33-2269LFZruujiNbpcghsykw of [facility] Medical CenterLACTIC ACID WITH 4 HOUR REFLEXon 37-72-2775XMIZMTJ (MMOL/L) IN SER/PLAS1.6 mmol/LNormal0.5-2.2UnProMedica Memorial HospitalComment on above:Performed By: #### [id number] ####[facility] ([facility])[address] [place] [address]XWCIDGB (MMOL/L) IN SER/PLAS2.2 mmol/LNormal0.5-2.2UnProMedica Memorial HospitalComment on above:Performed By: #### [id number] ####[facility] ([facility])[address] [place] [address]RJOGRCBINyz 76-51-2593Xlwupivci [Mass/Vol]1.8 mg/dLLow1.9-2.7 [facility] HospitalComment on above:Performed By: #### [id number] ####[facility] ([facility])[address] [address]Hreyksmpg [Mass/Vol]2.0 mg/dLNormal1.9-2.7UnProMedica Memorial HospitalComment on above:Performed By: #### [id number] ####[facility] ([facility])[address] [place] [address]AXFFADIEoz 25-95-3202IQTOGMJSBneecn called rapid at 0607 am pt was hypotensive BP 53/38 POWER ORIGINATOR nurse at bedside 0609 am. MD notified came to bedside, orders were placed. 0700 BP 91/63. Day shift POWER ORIGINATOR nurse at bedside.NormalUnProMedica Memorial HospitalPOCT GLUCOSE METER UNSOLICITED RESULTSon 73-69-0136Otbixkd [Mass/Vol]125 mg/eWVeud73-330 [facility] HospitalComment on above:Order Comment: Waived Testing in the ED is performed under the ED CLIA certificate #[id number].Result Comment: [id number] By: #### [id number] ####[facility] ([facility])[address] [place] [address]Hjwmkir [Mass/Vol]129 mg/aJEuua19-447UledkunynaProMedica Memorial HospitalComment on above:Order Comment: Waived Testing in the ED is performed under the ED CLIA certificate #[id number].Result Comment: [email or web address] Performed By: #### [id number] ####[facility] ([facility])[address] [place] [address]IXCEGSI-KNHyt 80-63-8815DTH IN PPP BY COAGULATION ASSAY1.47 High0.90-1.10UnProMedica Memorial HospitalComment on above:Result Comment: ACCCP RECOMMENDED INR FOR WARFARIN THERAPY CONDITION INRPROPHYLAXIS OF VENOUS THROMBOSIS 2-3(HIGH-RISK SURGERY)TREATMENT OF VENOUS THROMBOSIS 2-3TREATMENT OF PULMONARY EMBOLISM 2-3PREVENTION OF SYSTEMIC EMBOLISM: 2-3 ACUTE MYOCARDIAL INFARCTION TISSUE HEART VALVES VALVULAR HEART DISEASE ATRIAL FIBRILLATION RECURRENT SYSTEMIC EMBOLISMMECHANICAL HEART VALVE 2.5-3.5 FROM: ORAL ANTICOAGULANTS. MECHANISM OF ACTION, CLINICAL EFFECTIVENESS, AND OPTIMAL THERAPE UTIC RANGE. CHEST 1995;108:231S-246S.Performed By: #### [id number] ####[facility] Mtime)[address] [place], [place] [address]BWLQGTTHQLJ TIME (PT) IN PPP BY COAGULATION ASSAY17.9 OqfkmhrBrss95.3-14.8F[facility] HospitalComment on above:Performed By: #### [id number] ####[facility] Mtime)[address] [place], [place] [address]JKLN AND SCREENon 81-63-3023VZ SCREEN NegativeNormalUniversMercy Health Lorain HospitalComment on above:Performed By: #### [id number] ####[facility],ABO group Nom (Bld)ONormalUnProMedica Memorial HospitalComment on above:Performed By: #### [id number] ####[facility],RH TYPE IN BLOODPositiveNormalUniversMercy Health Lorain HospitalComment on above: Performed By: #### [id number] ####[facility],URINALYSIS MICROSCOPIC WITH REFLEX CULTUREon 70-43-2705SBA (#/HPF) IN URINE SEDIMENT>20AbnormalNone Seen, 0-2 [facility] HospitalComment on above:Performed By: #### [id number] ####[facility] Mtime)[address] [place], [place] [address]WZZNHVXO EPITHELIAL CELLS (#/LPF) IN URINE SEDIMENTNone SeenNormalNone Seen, Occasional, FewUnProMedica Memorial HospitalComment on above:Performed By: #### [id number] ####[facility] ([facility])[address] [place], [place] [address]KLZ (LEUKOCYTE) (#/HPF) IN URINE SEDIMENTNone SeenNormalNone Seen, 0-2UnProMedica Memorial HospitalComment on above:Performed By: #### [id number] ####[facility] ([facility])[address] [place], [place] [address]TEHIHBQUZW WITH REFLEX CULTUREon 85-03-4345SHGDJLUNQ, TOTAL PRESENCE IN URINENegativeNormalNegative [facility] HospitalComment on above:Performed By: #### [id number] ####[facility] ([facility])[address] [place], [place] [address]Ocwrtzg (U) TurbidAbnormalClearUnProMedica Memorial HospitalComment on above:Performed By: #### [id number] ####[facility] ([facility])[address] [place], [place] [address]Wciuu (U)RedAbnormalColorless, Yellow, Light-YellowUnProMedica Memorial HospitalComment on above:Performed By: #### [id number] ####[facility] ([facility])[address] [place], [place] [address]IUSLFUA (MG/DL) IN URINENormalNormal NormalUnProMedica Memorial HospitalComment on above:Performed By: #### [id number] ####[facility] ([facility])[address] [place] [address] HEMOGLOBIN PRESENCE IN URINELargeAbnormalNegativeUnProMedica Memorial HospitalComment on above:Performed By: #### [id number] ####[facility] ([facility])[address] [place], [place] [address]Fpxmfbm Ql (U)NegativeNormalNegative [facility] HospitalComment on above:Performed By: #### [id number] ####[facility] ([facility])[address] [place] [address]QXFNBZVQU ESTERASE PRESENCE IN URINE BY TEST STRIPTraceAbnormalNegativeUnProMedica Memorial HospitalComment on above:Performed By: #### [id number] ####[facility] ([facility])[address] [place] [address]VSUPDPG PRESENCE IN URINE NegativeNormalNegativeUnProMedica Memorial HospitalComment on above: Performed By: #### [id number] ####[facility] ([facility])[address] [address]vA (U)5.5 [pH]Normal5.0-8.0UnProMedica Memorial HospitalComment on above:Performed By: #### [id number] ####[facility] ([facility])[address] [place] [address]Gtymwtx (U) [Mass/Vol]30 mg/dLAbnormal NegativeUnProMedica Memorial HospitalComment on above:Performed By: #### [id number] ####[facility] ([facility])[address] [place] [address]Jlleuzjt gravity (U) [Rel density]>1.791Xigl1.010-1.030UnProMedica Memorial HospitalComment on above:Performed By: #### [id number] ####[facility] ([facility])[address] [place] [address]LRGDFUVATMIA (MG/DL) IN URINENormal NormalNormalUniversMercy Health Lorain HospitalComment on above:Performed By: #### [id number] ####[facility] ([facility])[address] [place] [id number] on 14-23-749482DmlyylDiizfpaubtThe Christ HospitalANTI-XA (HEPARIN LEVEL) on 92-20-6445YUHJXYN UNFRACTIONATED (U/ML) IN PPP BY CHROMOGENIC METHOD0.57 IU/mLNormal0.3-0.7UnProMedica Memorial HospitalComment on above:Result Comment: Rivaroxaban and Apixaban will interfere with the anti Xa assay used to monitor UFH and LMWH.Performed By: #### [id number] ####[facility] ([facility])[address] [place] [address]ABIEov 96-49-6902LZCOVBEBH PARTIAL THROMBOPLASTIN TIME IN PPP BY COAGULATION TTGBM847.9 FvfhdjrBcpx88.0-35.0 [facility] HospitalComment on above:Result Comment: Clinical significance of the APTT is questionable in the presence of heparin.Performed By: #### [id number] ####[facility] ([facility])[address] [place] [address] BASIC METABOLIC PANELon 12-87-8511Wprtu gap [Moles/Vol]13 mmol/LNormal7-20 [facility] HospitalComment on above:Performed By: #### [id number] ####[facility] ([facility])[address] [place], [place] [address]Mlefbki [Mass/Vol]8.9 mg/dLNormal8.6-10.3UnProMedica Memorial HospitalComment on above:Performed By: #### [id number] ####[facility] ([facility])[address] [place], [place] [address]Kwwhvivx [Moles/Vol]104 mmol/QXpevmt15-021BexbkfpgdiProMedica Memorial HospitalComment on above:Performed By: #### [id number] ####[facility] ([facility])[address] [place], [place] [address]NK2 [Moles/Vol]26 mmol/LNormal 21-31UnProMedica Memorial HospitalComment on above:Performed By: #### [id number] ####[facility] ([facility])[address] [place], [place] [address]Hzczhdhnry [Mass/Vol]0.99 mg/dLNormal0.70-1.30UnProMedica Memorial HospitalComment on above:Performed By: #### [id number] ####[facility] ([facility])[address] [place], [place] [address]HAMNAPABSE FILTRATION RATE ML/MIN/1.73 SQ M.OJAMPSXUL76.3 mL/min/1.73m*2Normal>60.0UnProMedica Memorial HospitalComment on above: Result Comment: [facility]???s estimated glomerular filtration rate (eGFR) will [...] potential consequences that do not disproportionately affect anyone group of individuals.Performed By: #### [id number] ####[facility] ([facility])[address] [place] [address]Vtmrkpp [Mass/Vol]86 mg/gBFhsyhs14-276YxhbkwbismProMedica Memorial HospitalComment on above:Performed By: #### [id number] ####[facility] ([facility])[address] [place] [address]Nvgarydfq [Moles/Vol]4.0 mmol/LNormal3.5-5.1UnProMedica Memorial HospitalComment on above:Performed By: #### [id number] ####[facility] ([facility])[address] [place] [address] Sodium [Moles/Vol]139 mmol/YXgadcy047-116JirmkenlrhProMedica Memorial Hospital Comment on above:Performed By: #### [id number] ####[facility] ([facility])[address] [place], [place] [address]Imla nitrogen [Mass/Vol]16 mg/dLNormal7-25 [facility] HospitalComment on above:Performed By: #### [id number] ####[facility] ([facility])[address] [place] [address]SOEU NITROGEN/CREATININE (MASS RATIO) IN SER/PLAS16.2NormalUnProMedica Memorial HospitalComment on above:Performed By: #### [id number] ####[facility] ([facility])[address] [address]NPKox 57-64-1822Tvkgzwnuqfs distribution width (RBC) [Ratio]15.2 %High11.5-15.0UnProMedica Memorial HospitalComment on above:Performed By: #### [id number] ####[facility] ([facility])[address] [address]AALYHQEDOWK MEAN CORPUSCULAR HEMOGLOBIN CONCENTRATION (G/DL) BY QYZDCMEUD74.7 g/hTZgeard07.0-35.0UnProMedica Memorial HospitalComment on above:Performed By: #### [id number] ####[facility] ([facility])[address] [place] [address]Ohdnmnjamc (Bld) [Volume fraction]44.4 %Edaozi65.0-50.0UnProMedica Memorial HospitalComment on above:Performed By: #### [id number] ####[facility] ([facility])[address] [place] [address]Crfedrqget (Bld) [Mass/Vol]15.4 g/yMUurorr18.0-17.0UnProMedica Memorial HospitalComment on above:Performed By: #### [id number] ####[facility] ([facility])[address] [place] [address]WNJ (RBC) [Entitic mass] 31.0 jvOlxkga61.0-33.0UnProMedica Memorial HospitalComment on above: Performed By: #### [id number] ####[facility] ([facility])[address] [place] [address]WDZ (RBC) [Entitic vol]89.3 mYCfplqw50.0-98.0UnProMedica Memorial HospitalComment on above:Performed By: #### [id number] ####[facility] ([facility])[address] [address]FJNSUOYRB (10*3/UL) IN BLOOD AUTOMATED [id number] 10*3/pGTazfec397-370ZjmmkqpswbProMedica Memorial Hospital Comment on above:Performed By: #### [id number] ####[facility] ([facility])[address] [place] [address]ZGL (Bld) [#/Vol]4.97 10*6/uLNormal4.20-5.70 [facility] HospitalComment on above:Performed By: #### [id number] ####[facility] ([facility])[address] [place] [address]SSJ (Bld) [#/Vol]7.24 10*3/uLNormal4.00-10.60F[facility] HospitalComment on above:Performed By: #### [id number] ####[facility] ([facility])[address] [place] [address]HQ ABDOMEN PELVIS WO IV CONTRASTon 45-62-4573YX ABDOMEN PELVIS WO IV CONTRASTInvalid Interpretation CodeFlower Hospital30on 82-49-271753NfkgemWkjodkyyac of [place] [facility] Epfrwb66Uxprch [facility]30NormalUniThe Christ Hospital ANTI-XA (HEPARIN LEVEL)on 40-93-8529ZKBKQKC UNFRACTIONATED (U/ML) IN PPP BY CHROMOGENIC METHOD0.55 IU/mLNormal0.3-0.7UnProMedica Memorial Hospital Comment on above:Result Comment: Rivaroxaban and Apixaban will interfere with the anti Xa assay used to monitor UFH and LMWH.Performed By: #### [id number] ####[facility] ([facility])[address] [place] [address]IVQSVQY UNFRACTIONATED (U/ML) IN PPP BY CHROMOGENIC METHOD0.61 IU/mLNormal0.3-0.7 [facility] HospitalComment on above:Result Comment: Rivaroxaban and Apixaban will interfere with the anti Xa assay used to monitor UFH and LMWH. Performed By: #### [id number] ####[facility] ([facility])[address] [place] [address]WKBWZQT UNFRACTIONATED (U/ML) IN PPP BY CHROMOGENIC METHOD 0.84 IU/mLHigh0.3-0.7UnProMedica Memorial HospitalComment on above:Order Comment: Other specimen was sitting in tube station, unknown for how long specimen was stationedResult Comment: Rivaroxaban and Apixaban will interfere with the anti Xa assay used to monitor UFH and LMWH.Performed By: #### [id number] ####[facility] ([facility])[address] [place], [place] [address]VCTLez 85-42-5935LODWGVIEK PARTIAL THROMBOPLASTIN TIME IN PPP BY COAGULATION MEFXI352.6 SecondsCritically high25.0-35.0UnProMedica Memorial HospitalComment on above:Result Comment: Clinical significance of the APTT is questionable in the presence of heparin.Performed By: #### [id number] ####[facility] ([facility])[address] [place], [place] [address]OFPYT METABOLIC PANELon 91-58-7286Ofoiz gap [Moles/Vol]14 mmol/LNormal7-20UnProMedica Memorial HospitalComment on above:Performed By: #### [id number] ####[facility] ([facility])[address] [place], [place] [address]Rlgqptk [Mass/Vol]8.7 mg/dLNormal8.6-10.3UnProMedica Memorial HospitalComment on above:Performed By: #### [id number] ####[facility] ([facility])[address] [place], [place] [address]Nzkjqrgp [Moles/Vol]105 mmol/LNormal 98-107UnProMedica Memorial HospitalComment on above:Performed By: #### [id number] ####[facility] ([facility])[address] [place], [place] [address]YZ6 [Moles/Vol]25 mmol/MGngybi54-48RcnanedvilProMedica Memorial HospitalComment on above:Performed By: #### [id number] ####[facility] ([facility])[address] [place], [place] [address]Zhyacvftmp [Mass/Vol]0.99 mg/dLNormal0.70-1.30UnProMedica Memorial HospitalComment on above:Performed By: #### [id number] ####[facility] ([facility])[address] [place] [address]JNVKCCRMRL FILTRATION RATE ML/MIN/1.73 SQ M.TVJXFBAVJ14.3 mL/min/1.73m*2Normal>60.0UnProMedica Memorial HospitalComment on above:Result Comment: [facility]???s estimated glomerular filtration rate (eGFR) will [...] potential consequences that do not disproportionately affect anyone group of individuals.Performed By: #### [id number] ####[facility] ([facility])[address] [place] [address]Bnguidb [Mass/Vol]59 mg/iUSko30-224JspqqwbeipProMedica Memorial HospitalComment on above: Performed By: #### [id number] ####[facility] ([facility])[address] [place] [address]Qeyrglcpo [Moles/Vol]3.8 mmol/LNormal3.5-5.1UnProMedica Memorial HospitalComment on above:Performed By: #### [id number] ####[facility] ([facility])[address] [place], [place] [address]Trlacr [Moles/Vol]140 mmol/LNormal 136-145UnProMedica Memorial HospitalComment on above:Performed By: #### [id number] ####[facility] ([facility])[address] [place], [place] [address]Xjrk nitrogen [Mass/Vol]16 mg/dLNormal7-25UnProMedica Memorial HospitalComment on above:Performed By: #### [id number] ####[facility] ([facility])[address] [place], [place] [address]TVGL NITROGEN/CREATININE (MASS RATIO) IN SER/PLAS16.2Normal [facility] HospitalComment on above:Performed By: #### [id number] ####[facility] ([facility])[address] [place], [place] [address]JOLGRIHWVQ AND HEMATOCRIT, BLOODon 58-17-2353Iymohdzzji (Bld) [Volume fraction]42.9 %Normal 39.0-50.0UnProMedica Memorial HospitalComment on above:Performed By: #### [id number] ####[facility] ([facility])[address] [place] [address] Hemoglobin (Bld) [Mass/Vol]14.8 g/oQDdwtyi48.0-17.0UnProMedica Memorial HospitalComment on above:Performed By: #### [id number] ####[facility] ([facility])[address]ITALUrielCHAMB[place], [place] [address]qw 50-65-188852LqybswEkmzysznti of [place] Medical CenterANTI-XA (HEPARIN LEVEL)on 16-56-5876VDZQLNJ UNFRACTIONATED (U/ML) IN PPP BY CHROMOGENIC METHOD0.54 IU/mLNormal0.3-0.7UnProMedica Memorial HospitalComment on above:Result Comment: Rivaroxaban and Apixaban will interfere with the anti Xa assay used to monitor UFH and LMWH.Performed By: #### [id number] ####[facility] ([facility])[address] [place], [place] [address]DTMEEHX UNFRACTIONATED (U/ML) IN PPP BY CHROMOGENIC METHOD0.41 IU/mLNormal0.3-0.7 [facility] HospitalComment on above:Order Comment: Ok to draw AM labs at this timeCheck anti-Xa level every 6 hours while on heparin infusion, or per protocol.Result Comment: Rivaroxaban and Apixaban will interfere with the anti Xa assay used to monitor UFH and LMWH.Performed By: #### [id number] ####[facility] ([facility])[address] [place], [place] [address]EILUdw 02-19-2025 ACTIVATED PARTIAL THROMBOPLASTIN TIME IN PPP BY COAGULATION JODRH938.5 Seconds Critically high25.0-35.0UnProMedica Memorial HospitalComment on above: Result Comment: Clinical significance of the APTT is questionable in the presence of heparin.Performed By: #### [id number] ####[facility] ([facility])[address] [place] [address]GVRDHISRD PARTIAL THROMBOPLASTIN TIME IN PPP BY COAGULATION ASSAY84.7 JhgmhtfEqdd53.0-35.0UnProMedica Memorial Hospital Comment on above:Order Comment: Check aPTT every 6 hours while on heparin infusion, or per protocol.Result Comment: Clinical significance of the APTT is questionable in the presence of heparin.Performed By: #### [id number] ####[facility] ([facility])[address], [place] [address]MFSIH METABOLIC PANELon 43-43-6588Msxej gap [Moles/Vol]12 mmol/LNormal7-20UnProMedica Memorial HospitalComment on above:Performed By: #### [id number] ####[facility] ([facility])[address], [place] [address]Nmvfkky [Mass/Vol]8.3 mg/dLLow8.6-10.3 [facility] HospitalComment on above:Performed By: #### [id number] ####[facility] ([facility])[address], [place] [address]Topvolwq [Moles/Vol]108 mmol/CSvdo06-258CeegzsbosbProMedica Memorial HospitalComment on above:Performed By: #### [id number] ####[facility] ([facility])[address], [place] [address]YT4 [Moles/Vol]25 mmol/WGxgzkk79-23BgtwmanelfProMedica Memorial HospitalComment on above:Performed By: #### [id number] ####[facility] ([facility])[address], [place] [address]Rkfsprfytg [Mass/Vol]1.07 mg/dLNormal 0.70-1.30UnProMedica Memorial HospitalComment on above:Performed By: #### [id number] ####[facility] ([facility])[address] [place] [address]CXEFRBEJJI FILTRATION RATE ML/MIN/1.73 SQ M.YIKMFFJNM94.4 mL/min/1.73m*2Normal>60.0 [facility] HospitalComment on above:Result Comment: [facility]???s estimated glomerular filtration rate (eG FR) will no longer include consideration of race [...] potential consequences that do not disproportionately affect anyone group of individuals. Performed By: #### [id number] ####[facility] ([facility])[address], [place] [address]Vvkvrac [Mass/Vol]75 mg/ePMzpyur32-524UygtujqbamProMedica Memorial HospitalComment on above:Performed By: #### [id number] ####[facility] ([facility])[address] [place], [place] [address]Qzpdsnkob [Moles/Vol]3.8 mmol/LNormal 3.5-5.1UnProMedica Memorial HospitalComment on above:Performed By: #### [id number] ####[facility] ([facility])[address], [place] [address]Twybic [Moles/Vol]141 mmol/UEadplt716-653KkkfksjuusProMedica Memorial HospitalComment on above:Performed By: #### [id number] ####[facility] ([facility])[address] [place], [place] [address]Ipet nitrogen [Mass/Vol]19 mg/dLNormal7-25UnProMedica Memorial HospitalComment on above:Performed By: #### [id number] ####[facility] ([facility])[address] [place], [place] [address]ARUC NITROGEN/CREATININE (MASS RATIO) IN SER/PLAS17.8NormalUniversMercy Health Lorain HospitalComment on above: Performed By: #### [id number] ####[facility] ([facility])[address] [place] [address]MFUbb 51-64-4097Eklymilgqbz distribution width (RBC) [Ratio]15.0 % Pwghlg91.5-15.0UnProMedica Memorial HospitalComment on above:Performed By: #### [id number] ####[facility] ([facility])[address] [place] [address] ERYTHROCYTE MEAN CORPUSCULAR HEMOGLOBIN CONCENTRATION (G/DL) BY FRMKKSMHZ16.0 g/gSUbjpkx19.0-35.0UnProMedica Memorial HospitalComment on above:Performed By: #### [id number] ####[facility] ([facility])[address] [place] [address]Tbhqvlvaih (Bld) [Volume fraction]40.9 %Wnubxk00.0-50.0UnProMedica Memorial HospitalComment on above:Performed By: #### [id number] ####[facility] ([facility])[address] [place] [address]Zxfjdsqwqx (Bld) [Mass/Vol]13.9 g/dL Jaxion13.0-17.0UnProMedica Memorial HospitalComment on above:Performed By: #### [id number] ####[facility] ([facility])[address] [place] [address]FFV (RBC) [Entitic mass]31.2 xaUqfslf15.0-33.0UnProMedica Memorial Hospital Comment on above:Performed By: #### [id number] ####[facility] ([facility])[address] [place] [address]QEK (RBC) [Entitic vol]91.9 qQGcrchx35.0-98.0 [facility] HospitalComment on above:Performed By: #### [id number] ####[facility] ([facility])[address] [place] [address]BNPMMUEPA (10*3/UL) IN BLOOD AUTOMATED BZQGZ149 10*3/wMNcrfmp903-589LwjflhjipjProMedica Memorial HospitalComment on above:Performed By: #### [id number] ####[facility] ([facility])[address] [place] [address]GYO (Bld) [#/Vol]4.45 10*6/uLNormal 4.20-5.70UnProMedica Memorial HospitalComment on above:Performed By: #### [id number] ####[facility] ([facility])[address] [place] [address]BFP (Bld) [#/Vol]5.92 10*3/uLNormal4.00-10.60UnProMedica Memorial HospitalComment on above:Performed By: #### [id number] ####[facility] ([facility])[address] [place] [address]DOJPXVGgh 31-50-3180FRUMQJMTdoxnmVynuklpqpy [facility] Brent[facility] HospitalCONSULTNormalUniversity [facility] & Brentwood HospitalHIGH SENSITIVITY TROPONIN Ion 57-36-5228GV TROPONIN I (NG/L)30 ng/LHigh<20[facility] HospitalComment on above:Performed By: #### [id number] ####[facility] ([facility])[address] [place], [place] [address]JF TROPONIN I (NG/L)29 ng/LHigh<20 [facility] HospitalComment on above:Performed By: #### [id number] ####[facility] ([facility])[address] [place], [place] [address]SP TROPONIN I (NG/L)30 ng/LHigh<20UnProMedica Memorial HospitalComment on above: Performed By: #### [id number] ####[facility] ([facility])[address] [place], [place] [address]GO TROPONIN I (NG/L)27 ng/LHigh<20UnProMedica Memorial HospitalComment on above:Performed By: #### [id number] ####[facility] ([facility])[address] [place], [place] [address]QBpb 26-43-0845CCIyjbnlXjzxeovojh of [facility] Medical CenterMAGNESIUMon 13-84-3119Dpimfoufw [Mass/Vol]1.9 mg/dLNormal 1.9-2.7UnProMedica Memorial HospitalComment on above:Performed By: #### [id number] ####[facility] ([facility])[address] [place], [place] [address]iu 14-76-547870WzzdnfQgrtglvlde of [facility] Medical CenterANTI-XA (HEPARIN LEVEL)on 14-23-1988ODRKINV UNFRACTIONATED (U/ML) IN PPP BY CHROMOGENIC METHOD<0.10Invalid Interpretation Code0.3-0.7UnProMedica Memorial HospitalComment on above: Order Comment: Check anti-Xa level every 6 hours while on heparin infusion, or per protocol.Result Comment: Rivaroxaban and Apixaban will interfere with the anti Xa assay used to monitor UFH and LMWH.Performed By: #### [id number] ####[facility] ([facility])[address] [place], [place] [address]BXGLlw 02-18-2025 ACTIVATED PARTIAL THROMBOPLASTIN TIME IN PPP BY COAGULATION ASSAY32.7 Seconds Ofkgrg84.0-35.0UnProMedica Memorial HospitalComment on above:Order Comment: Baseline aPTT before initiating heparin infusion.Result Comment: Clinical significance of the APTT is questionable in the presence of heparin. Performed By: #### [id number] ####[facility] ([facility])[address] [place], [place] [address]Y-UYSM NATRIURETIC PEPTIDEon 01-61-0032Wazwinjdgsu peptide B (Bld) [Mass/Vol]491 pg/mLHigh0-100UnProMedica Memorial HospitalComment on above:Performed By: #### [id number] ####[facility] ([facility])[address] [place], [place] [address]LVD WITH AUTO DIFFERENTIALon 04-30-3878Xsruzdjqb (Bld) [#/Vol]0.02 10*3/uLNormal0.00-0.20UnProMedica Memorial HospitalComment on above:Performed By: #### [id number] ####[facility] [place], [place] [address]Nnhvcoybf/100 WBC (Bld)0.3 %Normal0.0-1.0UnProMedica Memorial HospitalComment on above:Performed By: #### [id number] ####[facility] ([facility])[address] [place], [place] [address]Inteznftjmu (Bld) [#/Vol]0.08 10*3/uL Normal0.00-0.50UnProMedica Memorial HospitalComment on above:Performed By: #### [id number] ####[facility] ([facility])[address] [place] [address] Eosinophils/100 WBC (Bld)1.1 %Normal0.0-6.0UnProMedica Memorial Hospital Comment on above:Performed By: #### [id number] ####[facility] ([facility])[address] [place], [place] [address]Fpnouwnrtff distribution width (RBC) [Ratio]15.1 % High11.5-15.0UnProMedica Memorial HospitalComment on above:Performed By: #### [id number] ####[facility] ([facility])[address] [place] [address] ERYTHROCYTE MEAN CORPUSCULAR HEMOGLOBIN CONCENTRATION (G/DL) BY FDHOJXCUK85.5 g/yTDdofgi41.0-35.0UnProMedica Memorial HospitalComment on above:Performed By: #### [id number] ####[facility] ([facility])[address] [place], [place] [address]Nxqjwtqelr (Bld) [Volume fraction]41.7 %Eiuhal85.0-50.0UnProMedica Memorial HospitalComment on above:Performed By: #### [id number] ####[facility] ([facility])[address] [place], [place] [address]Mywyzlabml (Bld) [Mass/Vol]14.4 g/dL Vjwwkl70.0-17.0UnProMedica Memorial HospitalComment on above:Performed By: #### [id number] ####[facility] [place] [address] Immature granulocytes (Bld) [#/Vol]0.03 10*3/uLNormal0.00-0.20UnProMedica Memorial HospitalComment on above:Performed By: #### [id number] ####[facility] ([facility])[address] [facility] [place] [address]Jezlmvwa granulocytes/100 WBC (Bld)0.4 %Normal0.0-1.0UnProMedica Memorial HospitalComment on above: Performed By: #### [id number] ####[facility] ([facility])[address] [facility] [place], [place] [address]Asqqyiummzn (Bld) [#/Vol]1.51 10*3/uLNormal1.20-4.00 [facility] HospitalComment on above:Performed By: #### [id number] ####[facility] ([facility])[address] [facility] [address]Mdfpvonwqsk/100 WBC (Bld)20.2 %Lyvhwr35.0-45.0UnProMedica Memorial HospitalComment on above:Performed By: #### [id number] ####[facility] ([facility])[address] [place], [place] [address]PYF (RBC) [Entitic mass]31.5 jcThkfhn98.0-33.0UnProMedica Memorial HospitalComment on above:Performed By: #### [id number] ####[facility] ([facility])[address] [address]YDO (RBC) [Entitic vol] 91.2 nOCgvtdx22.0-98.0UnProMedica Memorial HospitalComment on above: Performed By: #### [id number] ####[facility] [place] [address]Qsegfsasf (Bld) [#/Vol]0.64 10*3/uLNormal0.10-1.00UnProMedica Memorial HospitalComment on above:Performed By: #### [id number] ####[facility] ([facility])[address] [place] [address]Iubdpfeai/100 WBC (Bld) 8.5 %Normal5.0-12.0UnProMedica Memorial HospitalComment on above:Performed By: #### [id number] ####[facility] ([facility])[address] [address]Tdpesntrbuy (Bld) [#/Vol]5.21 10*3/uLNormal1.60-7.60UnProMedica Memorial HospitalComment on above:Performed By: #### [id number] ####[facility] ([facility])[address] [address]Emmzmecuhus/100 WBC (Bld)69.5 %Normal 40.0-72.0UnProMedica Memorial HospitalComment on above:Performed By: #### [id number] ####[facility] ([facility])[address] [place] [address]MEHV (PER 100 WBCS) BY AUTOMATED COUNT0.0 %Njtdjx1JpnlvgsmkxProMedica Memorial Hospital Comment on above:Performed By: #### [id number] ####[facility] ([facility])[address] [place] [address]OKUFSXECO (10*3/UL) IN BLOOD AUTOMATED SMLDC766 10*3/mMZkyuqk749-886IgngmkrhrsProMedica Memorial HospitalComment on above: Performed By: #### [id number] ####[facility] ([facility])[address], [place] [address]BRA (Bld) [#/Vol]4.57 10*6/uLNormal4.20-5.70UnProMedica Memorial HospitalComment on above:Performed By: #### [id number] ####[facility] ([facility])[address] [place], [place] [address]ARG (Bld) [#/Vol]7.49 10*3/uLNormal4.00-10.60UnProMedica Memorial HospitalComment on above: Performed By: #### [id number] ####[facility] ([facility])[address] [place], [place] [address]KKGEAQPUEIKTG METABOLIC PANELon 41-11-4982Mxowheq [Mass/Vol] 3.6 g/dLNormal3.5-5.7UnProMedica Memorial HospitalComment on above: Performed By: #### [id number] ####[facility] ([facility])[address] [place], [place] [address]LEA [Catalytic activity/Vol]58 U/MPsthvk67-555GmvlesmyeiProMedica Memorial HospitalComment on above:Performed By: #### [id number] ####[facility] ([facility])[address] [place], [place] [address]AAW [Catalytic activity/Vol]30 U/L Normal7-52UnProMedica Memorial HospitalComment on above:Performed By: #### [id number] ####[facility] ([facility])[address] [place], [place] [address]Epceu gap [Moles/Vol]11 mmol/LNormal7-20UnProMedica Memorial HospitalComment on above:Performed By: #### [id number] ####[facility] ([facility])[address], [place] [address]ABS [Catalytic activity/Vol]19 U/GRexevb26-91OizqwkpymaProMedica Memorial HospitalComment on above:Performed By: #### [id number] ####[facility] ([facility])[address], [place] [address]Lykpmydrb [Mass/Vol]3.6 mg/dLHigh 0.3-1.0UnProMedica Memorial HospitalComment on above:Performed By: #### [id number] ####[facility] ([facility])[address] [place], [place] [address]Qxgidzd [Mass/Vol]8.5 mg/dLLow8.6-10.3UnProMedica Memorial HospitalComment on above:Performed By: #### [id number] ####[facility] ([facility])[address] [place], [place] [address]Lgzkgytl [Moles/Vol]108 mmol/KDufe52-696KxsgrpvedlProMedica Memorial HospitalComment on above:Performed By: #### [id number] ####[facility] ([facility])[address] [place] [address]ZO2 [Moles/Vol]21 mmol/FZvhwkr39-82 [facility] HospitalComment on above:Performed By: #### [id number] ####[facility] ([facility])[address] [place] [address]Yfekmxomxf [Mass/Vol]1.02 mg/dLNormal0.70-1.30UnProMedica Memorial HospitalComment on above:Performed By: #### [id number] ####[facility] ([facility])[address] [place] [address]GRLUIUNMLJ FILTRATION RATE ML/MIN/1.73 SQ M.PLQUCEZPU88.2 mL/min/1.73m*2Normal>60.0UnProMedica Memorial HospitalComment on above: Result Comment: [facility]???s estimated glomerular filtration rate (eGFR) will [...] potential consequences that do not disproportionately affect anyone group of individuals.Performed By: #### [id number] ####[facility] ([facility])[address] [place] [address]Qwnydnj [Mass/Vol]88 mg/oDJxdstl12-448CdndfztqejProMedica Memorial HospitalComment on above:Performed By: #### [id number] ####[facility] ([facility])[address] [place] [address]Kvjowasxv [Moles/Vol]4.0 mmol/LNormal3.5-5.1UnProMedica Memorial HospitalComment on above:Performed By: #### [id number] ####[facility] ([facility])[address] [place] [address] Protein [Mass/Vol]5.5 g/dLLow6.0-8.3UnProMedica Memorial HospitalComment on above:Performed By: #### [id number] ####[facility] ([facility])[address] [place] [address]Vvhtqg [Moles/Vol]136 mmol/GHtsago362-983YtykjwrifjProMedica Memorial HospitalComment on above:Performed By: #### [id number] ####[facility] ([facility])[address] [place] [address]Uiyb nitrogen [Mass/Vol]21 mg/dLNormal 7-25UnProMedica Memorial HospitalComment on above:Performed By: #### [id number] ####[facility] ([facility])[address] [place] [address]XIQR NITROGEN/CREATININE (MASS RATIO) IN SER/PLAS20.6NormalUniversMercy Health Lorain HospitalComment on above:Performed By: #### [id number] ####[facility] ([facility])[address] [place] [address]BQLV SENSITIVITY TROPONIN Ion 95-21-1049PP TROPONIN I (NG/L)27 ng/LHigh<20UnProMedica Memorial Hospital Comment on above:Performed By: #### [id number] ####[facility] ([facility])[address] [place] [address]WPzy 18-06-8835UXQekrbsZbuykxmctm of [facility] Medical CenterLACTIC ACID, PLASMAon 54-11-8251QWSSEYO (MMOL/L) IN SER/PLAS1.1 mmol/L Normal0.5-2.2UnProMedica Memorial HospitalComment on above:Performed By: #### [id number] ####[facility] ([facility])[address] [place] [address] MAGNESIUMon 77-30-3643Ontxasusm [Mass/Vol]2.1 mg/dLNormal1.9-2.7UnProMedica Memorial HospitalComment on above:Performed By: #### [id number] ####[facility] ([facility])[address] [place], [place] [address]Cjoinup Recordson 80-80-6983Jajuxbp [id number]#1.00OTGTIFF NormalIdgrpaulding county hospital HospitalOutside Records [id number]#1.00OTGTIFFNormalWvumedicine [facility] Hospital Outside [id number]#1.00OTGTIFFNormal [facility] HospitalOutside Records [id number]#1.00OTGTIFFNormalWvumedicine Barnesville Hospital Hospital Outside [id number]#1.00OTGTIFFNormal [facility] HospitalOutside Records [id number]#1.00OTGTWhite River Junction [facility] Hospital PHOSPHORUSon 44-31-1470Mvylhuowu [Mass/Vol]2.7 mg/dLNormal2.5-5.0UnProMedica Memorial HospitalComment on above:Performed By: #### [id number] ####[facility] ([facility])[address] [place], [place] [address]CWEMGYC-QFGdv 02-18-2025 INR IN PPP BY COAGULATION ASSAY1.56Icum6.90-1.10UnProMedica Memorial HospitalComment on above:Result Comment: [facility] RECOMMENDED INR FOR WARFARIN THERAPY CONDITION INRPROPHYLAXIS OF VENOUS THROMBOSIS 2-3(HIGH-RISK SURGERY)TREATMENT OF VENOUS THROMBOSIS 2-3TREATMENT OF PULMONARY EMBOLISM 2-3PREVENTION OF SYSTEMIC EMBOLISM: 2-3 ACUTE MYOCARDIAL INFARCTION TISSUE HEART VALVES VALVULAR HEART DISEASE ATRIAL FIBRILLATION RECURRENT SYSTEMIC EMBOLISMMECHANICAL HEART VALVE 2.5-3.5 FROM: ORAL ANTICOAGULANTS. MECHANISM OF ACTION, CLINICAL EFFECTIVENESS, AND OPTIMAL THERAPE UTIC RANGE. CHEST 1995;108:231S-246S.Performed By: #### [id number] ####[facility] ([facility])[address] [place], [place] [address]UUBEFEJGSEK TIME (PT) IN PPP BY COAGULATION ASSAY17.9 FapmdrsKvhg39.3-14.8UnProMedica Memorial HospitalComment on above:Performed By: #### [id number] ####[facility] ([facility])[address] [place], [place] [address]AHX7 REFLEX TO FT4on 02-18-2025 THYROTROPIN (MIU/L) IN SER/PLAS BY DETECTION LIMIT <= 0.05 MIU/L3.22 mIU/LNormal 0.34-5.60UnProMedica Memorial HospitalComment on above:Performed By: #### [id number] ####[facility] ([facility])[address] [place], [place] [address]Bua - Other Lab Resultson 95-03-1140Xjz - Other Lab Results [id number]#1.00[facility] Orders Onlyon 26-91-2249Krcijs OnlyNormalUniversMercy Health Lorain HospitalLab - Other Lab Resultson 74-49-9558Fuq - Other Lab Results [id number]#1.00[facility] HospitalPatient Handouton 65-86-8478Fyxpcpy Handout [id number]#1.00[facility] Patient [id number]#1.00OTGTSt. Anthony's Hospital AUTO DIFFon 06-16-1412NXHV #0.0 103/ulNormal0.0-0.1[facility]ier HospitalComment on above:Performed By: #### CBC #### [facility] [address] [place] [address] Dr. Anny CorcoranBasophils/100 WBC (Bld)0.4 %Normal0.2-2.0[facility] Comment on above:Performed By: #### CBC #### [facility] [address] [place] [address] Dr. Anny Baker #0.1 103/ulNormal0.0-0.7The [facility] Medical CenterComment on above: Performed By: #### CBC #### [facility] [address] [place] [address] Dr. Anny Bondosinophils/100 WBC (Bld)1.5 %Normal0.9-7.0[facility] Comment on above:Performed By: #### CBC #### [facility] [address] [place] [address] Dr. Anny Bondrythrocyte distribution width (RBC) [Ratio]14.1 %Qnijnd31.0-15.0 [facility] HospitalComment on above:Performed By: #### CBC #### [facility] [address] [place] [address] Dr. Anny CorcoranHematocrit (Bld) [Volume fraction]37.6 %Critically low42.0-54.0 [facility] HospitalComment on above:Performed By: #### CBC #### [facility] [address] [place] [address] Dr. Anny CorcoranHemoglobin (Bld) [Mass/Vol]12.9 g/dLCritically low14.0-18.0[facility] HospitalComment on above:Performed By: #### CBC #### [facility] [address] [place] [address] Dr. Anny Garcia #0.01 10e3/ulNormal0.00-0.03The [facility] Medical CenterComment on above:Performed By: #### CBC #### [facility] [address] [place] [address] Dr. Anny Garcia %0.2 %Normal0.0-0.5The [facility] CenterComment on above: Performed By: #### CBC #### [facility] [address] [place] [address] Dr. Anny Baez #1.1 103/ulCritically low1.2-3.8The [facility] Comment on above:Performed By: #### CBC #### [facility] [address] [place] [address] Dr. Anny Andrehocytes/100 WBC (Bld)21.8 %Cmixgo53.5-60.0The [facility] CenterComment on above:Performed By: #### CBC #### [facility] [address] [place] [address] Dr. Anny TellezUAL DIFF REQNONormalThe [facility] CenterComment on above: Performed By: #### CBC #### [facility] [address] [place] [address] Dr. Anny Welch (RBC) [Entitic mass]31.2 ttTrdtsk91.9-34.0The [facility] CenterComment on above:Performed By: #### CBC #### [facility] [address] [place] [address] Dr. Anny Welch (RBC) [Mass/Vol]34.3 g/iCFbrimy06.9-35.2The [facility] CenterComment on above:Performed By: #### CBC #### [facility] [address] [place] [address] Dr. Anny Welch (RBC) [Entitic vol]90.8 bJAequlz67.0-94.0The [facility] CenterComment on above:Performed By: #### CBC #### [facility] [address] [place] [address] Dr. Anny Dean #0.4 103/ulNormal0.3-0.8The [facility] CenterComment on above:Performed By: #### CBC #### [facility] [address] [place] [address] Dr. Anny Funezocytes/100 WBC (Bld)8.5 %Normal1.7-12.0The [facility] Comment on above:Performed By: #### CBC #### [facility] [address] [place] [address] Dr. Anny Varela #3.5 103/ulNormal1.4-6.5The [facility] CenterComment on above:Performed By: #### CBC #### [facility] [address] [place] [address] Dr. Anny Burnsutrophils/100 WBC (Bld)67.6 %Xoraba28.0-75.0The [facility] CenterComment on above:Performed By: #### CBC #### [facility] [address] [place] [address] Dr. Anny Gilmore mean volume (Bld) [Entitic vol]9.4 fLCritically low 9.5-13.5The [facility] CenterComment on above:Performed By: #### CBC #### [facility] [address] [place] [address] Dr. Anny CorcoranPLT209 103/frTemtub434-609Pat [facility] CenterComment on above: Performed By: #### CBC #### [facility] [address] [place] [address] Dr. Anny CorcoranRBC4.14 106/ulCritically low4.70-6.10The [facility] CenterComment on above:Performed By: #### CBC #### [facility] [address] [place] [address] Dr. Anny CorcoranWBC5.2 103/ulNormal4.0-11.0The [facility] CenterComment on above: Performed By: #### CBC #### [facility] [address] [place] [address] Dr. Anny MicheleID PROFILEon [id number] RATIO [facility] HospitalComment on above:Result Comment: 3.3 - 4.4 LOW RISK 4.4 - 7.1 AVERAGE RISK 7.1 - 11.0 MODERATE RISK >11.0 HIGH RISKPerformed By: #### LIPID, CMP #### [facility] [address] [place] [address] Dr. Anny CorcoranCholesterol [Mass/Vol]103 mg/dLNormal<=200[facility] Comment on above:Performed By: #### LIPID, CMP #### [facility] [address] [place] [address] Dr. Anny CorcoranCholesterol in HDL [Mass/Vol]54 mg/lWGrjarm70-25UewParkview Health Montpelier HospitalComment on above:Performed By: #### LIPID, CMP #### [facility] [address] [place] [address] Dr. Anny Vargasesterol in LDL [Mass/Vol]43.8 mg/dLMcKitrick HospitalComment on above:Performed By: #### LIPID, CMP #### [facility] [address] [place] [address] Dr. Anny Khanna.total/Cholesterol in HDL [Mass ratio]1.9 {ratio} NormalParkview Health Montpelier HospitalComment on above:Performed By: #### LIPID, CMP #### [facility] [address] [place] [address] Dr. Anny Rincon NORMAL> or = 60 mg/dl - LOW CARDIOVASCULAR RISK <40 mg/dl - HIGH CARDIOVASCULAR RISKMcKitrick HospitalComment on above:Performed By: #### LIPID, CMP #### [facility] [address] [place] [address] Dr. Anny CorcoranLDL CALC NORMALSEE [facility] CenterComment on above:Result Comment: <100 mg/dl OPTIMAL 100 - 129 mg/dl NEAR OR ABOVE OPTIMAL 130 - 159 mg/dl BORDERLINE HIGH 160 - 189 mg/dl HIGH >190 mg/dl VERY HIGH Performed By: #### LIPID, CMP #### [facility] [address] [address] [address] Anny CorcoranTriglyceride [Mass/Vol]26 mg/dLNormal<=150The [facility] Comment on above:Performed By: #### LIPID, CMP #### [facility] [address] [address] [address] Anny CorcoranVLDL CALC5.2 mg/dLNormalThe [facility] CenterComment on above: Performed By: #### LIPID, CMP #### [facility] [address] [address] [address] Anny CorcoranPROF 14(COMP METB)on 81-76-3043Guqcwal [Mass/Vol]4.0 g/dLNormal 3.4-5.0The [facility] CenterComment on above:Performed By: #### LIPID, CMP #### [facility] [address] [place] [address] Dr. Anny CorcoranAlbumin/Globulin [Mass ratio]1.4 {ratio}NormalThe [facility] CenterComment on above:Performed By: #### LIPID, CMP #### [facility] [address] [place] [address] Dr. Anny Olivo [Catalytic activity/Vol]106 U/SEyeail97-074Msr [facility] CenterComment on above:Performed By: #### LIPID, CMP #### [facility] [address] [place] [address] Dr. Anny Sims [Catalytic activity/Vol]28 U/HFpewwq22-27Lml [facility] CenterComment on above:Performed By: #### LIPID, CMP #### [facility] [address] [place] [address] Dr. Anny Arriaga gap [Moles/Vol]7.3 mmol/LNormalThe [facility] CenterComment on above:Performed By: #### LIPID, CMP #### [facility] [address] [place] [address] Dr. Anny Otoole [Catalytic activity/Vol]23 U/YQqkqry21-71Zni [facility] CenterComment on above:Performed By: #### LIPID, CMP #### [facility] [address] [address] [address] Anny CorcoranBilirubin [Mass/Vol]2.7 mg/dLCritically high0.2-1.0The [facility] CenterComment on above:Performed By: #### LIPID, CMP #### [facility] [address] [place] [address] Dr. Anny CorcoranCalcium [Mass/Vol]9.0 mg/dLNormal8.5-10.1The [facility] Comment on above:Performed By: #### LIPID, CMP #### [facility] [address] [address] [address] Anny CorcoranChloride [Moles/Vol]104 mmol/CAxoled88-609Tha [facility] Comment on above:Performed By: #### LIPID, CMP #### [facility] [address] [place] [address] Dr. Anny CorcoranCO2 [Moles/Vol]32.5 mmol/LCritically high21.0-32.0The [facility] CenterComment on above:Performed By: #### LIPID, CMP #### [facility] [address] [place] [address] Dr. Anny CorcoranCreatinine [Mass/Vol]0.78 mg/dLNormal0.70-1.30The [facility] CenterComment on above:Performed By: #### LIPID, CMP #### [facility] [address] [place] [address] Dr. Anny BondGFR-AF SERBIAN>60Normal>=60The [facility] CenterComment on above:Performed By: #### LIPID, CMP #### [facility] [address] [place] [address] Dr. Anny BondGFR-NON AF SERBIAN>60Normal>=60The [facility] on above:Performed By: #### LIPID, CMP #### [facility] [address] [place] [address] Dr. Anny CorcoranGlobulin (S) [Mass/Vol]2.8 g/dLNormalThe [facility] HospitalComment on above:Performed By: #### LIPID, CMP #### [facility] [address] [address] [address] Anny CorcoranGlucose [Mass/Vol]86 mg/uJCiczbj77-517ZzmPark[facility] Health [facility] Comment on above:Performed By: #### LIPID, CMP #### [facility] [address] [address] [address] Anny CorcoranPotassium [Moles/Vol]3.8 mmol/LNormal3.5-5.1[facility] Comment on above:Performed By: #### LIPID, CMP #### [facility] [address] [place] [address] Dr. Anny CorcoranProtein [Mass/Vol]6.8 g/dLNormal6.4-8.2[facility] Comment on above:Performed By: #### LIPID, CMP #### [facility] [address] [place] [address] Dr. Anyn CorcoranSodium [Moles/Vol]140 mmol/STiyfxc874-692KaiParkview Health Montpelier Hospital Comment on above:Performed By: #### LIPID, CMP #### [facility] [address] [address] [address] Anny CorcoranUrea nitrogen [Mass/Vol]19.0 mg/dLCritically high7.0-18.0[facility] HospitalComment on above:Performed By: #### LIPID, CMP #### [facility] [address] [place] [address] Dr. Anny Chaves nitrogen/Creatinine [Mass ratio]24.4 mg/mgNoThe Christ HospitalComment on above:Performed By: #### LIPID, CMP #### [facility] [address] [place] [address] Dr. Anny NobleME DISEASE AB, TOTAL AND IGM W/WB REFLon 17-50-2612Tgbv Disease Ab, Quant, IgM<0.71Aczcnn8.00-0.79[facility] HospitalComment on above:Result Comment: Negative <0.80 Equivocal 0.80 - 1.19 Positive >1.19 . IgM levels may peak at 3-6 weeks post infection, then gradually decline.Performed By: #### LYMA #### [facility] [address] [place], [place] [address] Dr. Anny Henry IgG/IgM Ab<0.33Hzrlcf5.00-0.90[facility] HospitalComment on above:Result Comment: Negative <0.91 Equivocal 0.91 - 1.09 Positive >1.09Performed By: #### LYMA #### [facility] [address] [place], [place] [address] Dr. Anny CorcoranCT HEAD WO CONon 90-81-6560SW HEAD WO CONHEAD CT WITHOUT CONTRAST: 05/21/2021 11:40 AM EST [...] Electronically authenticated by: CANDIS MENDEZ Date: 2021-05-21 12:48[facility] En[facility] Encounter DateEncounter TypeCare ProviderFacilityStart: 03-23-2025 End: 26-52-5890dqrhaqqaqkDWAT CHAThe Christ Hospitaltart: 03-22-2025 End: 46-53-1571hksqfuwnucLJOPLVZ [facility] Systemtart: 03-18-2025 End: 41-22-1565vmewlcmrwnGKTEEE BOUDOURISOhioHealth Mansfield Hospitaltart: 03-15-2025 End: 15-90-4166fyukdwlmqnTHPYTHE P HOUSEFacility:[facility] ClinicStart: 03-10-2025 End: 99-62-9454qcpwxvxefmCQFEICI [facility] Hospitaltart: 26-54-1550Yuvlftzajg and management of inpatientFADI [facility] Hospitaltart: 82-69-6616Dmlcgazkuz and management of inpatientMEGHAN [facility] Systemtart: 22-85-3137Xydumctqjt and management of inpatientSAMER J [facility] Centertart: 71-79-1593Mdzyylkysd and management of inpatientFADI [facility] Hospitaltart: 07-73-5711Lpyexjphpn and management of inpatientFADI [facility]I [facility] Centertart: 24-83-5766Urcdquwzmd and management of inpatientMUNIER NAZZALUniKettering Health Daytontart: 02-24-2025 Evaluation and management of inpatientSHOBHA [facility] Hospitaltart: 58-54-7385Ykjkahlriv and management of inpatientFADI [facility] Hospitaltart: 07-65-7303Mpfdjhifdp and management of inpatient RUTH [facility] Hospitaltart: 76-46-0740Hzursxvsnh and management of inpatientFADI [facility] Hospitaltart: 51-70-1567Obcfkdlzkj and management of inpatientKYU UN[facility]ENTERL [facility]tart: 11-96-1566Htxnsheirm and management of inpatientKYU CHUL [facility] Hospitaltart: 84-66-1949Szgqchclvm and management of inpatientCHRISTOPHER [facility] Start: 60-49-2051Kwuurwdbne and management of inpatientMEGHAN [facility] Systemtart: 02-18-2025 End: 75-36-7569Wdmvlkgfvh and management of inpatientOMAR [facility] Hospitaltart: 67-60-3438vnvwhygharYDUHVZI P HOUSEFacility:[facility] ClinicStart: 10-29-2024 End: 58-06-3731xlxhausdmzJJKOHFP P HOUSEFacility:[facility]htart: 06-01-2024 End: 37-23-9174awxqlscenzFUHI [facility] Centertart: 04-30-2024 End: 78-90-1884jyagacolhqPG CHARLES P HOUSEFacility:[facility] ClinicStart: 90-84-9682Ekblyiqtw for general adult medical examination without abnormal findingsDR LAUREANO LINDERUniversity Hospitals Elyria Medical Centertart: 05-09-2022 End: 90-12-4720juvmiqkmebCP LAUREANO HOUSEFacility:U1Flxuf: 05-09-2022 End: 34-03-1557Eoqwtorzx for general adult medical examination without abnormal findingsDR LAUREANO HOUSEFacility:A9Shzas: 05-30-2021 End: 33-14-9054txjzaedjksHM CHARLES HOUSEFacility:D8Qkvdw: 05-21-2021 End: 60-06-6045rtpjnvayamCW KINGSLEY Mariee REINECKFacility:H1 Procedures DateProcedureProcedure DetailPerforming ClinicianStart: 69-89-5697Tvlyfp-up visitLAKEVILLE HOSPITALStart: 17-88-2419Npjitf-up visitLAKEVILLE HOSPITALStart: 44-79-5673DHQ screeningDR KINGSLEY MATTSONECKComment on above:Performed By: #### PSAD #### [facility] [address] [place] [address] Dr. Anny Weiss DatePayer CategoryPayerPolicy [id number] [id number] 2...[id number] [id number] .[id number] 2...[id number] 2...[id number] Clinical Notes 06-01-2024 to 04-05-2025 Note Date & OlbdUjedAqzztoav37-96-6958 NotePt was informed of result and informed patient of advice regarding increase potassium in diet. Pt states he recently started eating bananas again. Pt was informed to repeat lab and order was [facility] at .[facility]09-23-20[facility]UnPro[facility]09-22-2025 NoteUnProMedica Memorial Hospital09-18-2025 Note [facility]09-11-2025 NoteUnProMedica Memorial Hospital09-10-2025 NoteUnProMedica Memorial Hospital09-05-2025 Note [facility]09-05-2025 NoteDischarge Planning As per RUCC RN patient is [facility]able to [facility] able to accept. Added to AVS.[facility]09-05-2025 NoteUnProMedica Memorial Hospital09-05-2025 Note [facility]09-04-2025 NoteUnProMedica Memorial Hospital09-04-2025 NoteUnProMedica Memorial Hospital09-04-2025 Note [facility]09-04-2025 NoteUnProMedica Memorial Hospital09-03-2025 NoteUnProMedica Memorial Hospital09-03-2025 Note [facility]09-03-2025 NoteUnProMedica Memorial Hospital09-03-2025 NoteUnProMedica Memorial Hospital09-03-2025 Note [facility]09-03-2025 NoteF[facility]09-03-2025 NoteF[facility]2025 Note [facility]2025 NoteF[facility]2025 NoteF[facility]09-01-2025 Note [facility]09-01-2025 NoteF[facility]09-01-2025 NoteF[facility]09-01-2025 Note [facility]08-31-2025 NoteUnProMedica Memorial Hospital08-30-2025 NoteUnProMedica Memorial Hospital08-30-2025 Note [facility]08-29-2025 NoteF[facility]08-29-2025 NoteF[facility]08-29-2025 Note [facility]08-29-2025 NoteF[facility]08-29-2025 NoteF[facility]08-29-2025 Note [facility]08-28-2025 NoteF[facility]08-28-2025 NoteF[facility]08-28-2025 Note [facility]08-28-2025 NoteF[facility]08-28-2025 NoteF[facility]08-28-2025 Note [facility]08-28-2025 NoteF[facility]08-28-2025 NoteF[facility]08-27-2025 Note [facility]08-27-2025 NoteF[facility]08-27-2025 NoteUnProMedica Memorial Hospital08-27-2025 Note [facility]08-27-2025 NoteF[facility]08-27-2025 NoteF[facility]08-26-2025 Note [facility]08-26-2025 NoteUnProMedica Memorial Hospital08-26-2025 NoteUnProMedica Memorial Hospital08-26-2025 Note [facility]08-25-2025 NoteUnProMedica Memorial Hospital08-25-2025 NoteF[facility]08-25-2025 Note- Seen on abdominal rectus abdominal muscles on CT abd/pelvis 02/21 - L noted to be bigger than R - Consider holding heparin - Hgb has been stableUnProMedica Memorial Hospital08-25-2025 Note- Stable [facility]08-25-2025 Note- Stable, Patient currently not using CPAPUnProMedica Memorial Hospital08-25-2025 NoteUnProMedica Memorial Hospital08-25-2025 Note- Valsartan and spironolactone held - Blood pressure has been rather hypotensiveUnProMedica Memorial Hospital 02-22-2025 NoteF[facility]08-25-2025 NoteUnProMedica Memorial Hospital08-25-2025 NoteF[facility] 02-22-2025 NoteUnProMedica Memorial Hospital08-24-2025 NoteUnProMedica Memorial Hospital08-24-2025 NoteF[facility] 02-21-2025 Note- Continue current valsartan, spironolactone and Toprol-XL for GDMT - Blood pressure has been within acceptable range on 02/21 AMUnProMedica Memorial Hospital08-24-2025 NoteUnProMedica Memorial Hospital08-24-2025 Note [facility]08-24-2025 Note- StableUnProMedica Memorial Hospital08-24-2025 Note- Stable, Patient currently not using CPAP [facility]08-24-2025 NoteUnProMedica Memorial Hospital08-23-2025 NoteUnProMedica Memorial Hospital08-23-2025 Note- Stable [facility]08-23-2025 Note- Stable,Patient currently not using CPAPUnProMedica Memorial Hospital08-23-2025 Note- Continue current lisinopril and Toprol-XLUnProMedica Memorial Hospital08-23-2025 Note [facility]08-23-2025 NoteUnProMedica Memorial Hospital08-23-2025 NoteUnProMedica Memorial Hospital08-22-2025 Note- Stable [facility]08-22-2025 Note- Stable,Patient currently not using CPAPUnProMedica Memorial Hospital08-22-2025 Note- Continue current lisinopril and Toprol-XLUnProMedica Memorial Hospital08-22-2025 Note [facility]08-22-2025 NoteUnProMedica Memorial Hospital08-22-2025 NoteUnProMedica Memorial Hospital08-22-2025 Note [facility]08-22-2025 NoteA/p reviewed and agreed [facility]08-21-2025 Note- Cardiology consultUnProMedica Memorial Hospital08-21-2025 Note- StableUnProMedica Memorial Hospital08-21-2025 Note- Continue labetalolUnProMedica Memorial Hospital 02-18-2025 NoteUnProMedica Memorial Hospital08-21-2025 Note- Small pericardial effusion noted on echocardiogram, cardiology consultFlower Hospital08-21-2025 NoteF[facility] 06-01-2024 [facility] Summary Purpose Family History No Family History Records FoundNo Family History Records FoundNo Family History Records Found Advance Directives No Advanced Directives Records FoundNo Advanced Directives Records FoundNo Advanced Directives Records Found Additional Source Comments (unrecognized sect ion and content) No Status Records FoundNo Status Records FoundNo Status Records Found INFORMATION SOURCE (unrecogn ized section and content) DATE CREATED AUTHOR 05/14/2022 [facility] DATE CREATED AUTHOR AUTHOR'S ORGANIZ ATION 03/17/2025 [facility] DATE CREATED AUTHOR AUTHOR'S ORGANIZ ATION 04/05/2025 [facility] FOR RECORDS PERTAINING TO PATIENTS WHO [...] BE BASED ON THE PRIMARY CLINICAL RECORDS. [employer] [facility]. provides no warranty or guarantee of the accuracy or completeness of information in this document.
--- NOTE | 2025-05-06 07:51 | CA_ITS ---
Patient Name: LINDSAY TORRES MR#: [id number] : 1965 Exam Date: 05/06/2025 Ordering Doctor: DR JOE LIGHT M.D. ECHOCARDIOGRAM REPORT PROCEDURE: CA ECHO DOPPLER COMPLETE INDICATIONS: Mitral valve regurgitation COMPARISON: None. DESCRIPTION: COMPLETE ECHOCARDIOGRAM Real-time transthoracic echocardiography with 2D, M-mode, spectral and color flow Doppler performed. QUALITY: Technical quality was good. LEFT VENTRICLE: Normal chamber size. Proximal septal hypertrophy (sigmoid septum). Moderate concentric hypertrophy. The septum is abnormal in motion likely due to bundle branch block. Dyssynchronous contraction is seen. Global left ventricular systolic function is moderately decreased. LV EF: Moderately reduced left ventricular ejection fraction, (35%). DIASTOLIC: ATRIAL SEPTUM: LEFT ATRIUM: Severe dilatation. RIGHT ATRIUM: Moderate dilatation. RIGHT VENTRICLE: Normal chamber size. Normal right ventricular systolic function. TRICUSPID VALVE: Normal mobility and thickness. No stenosis with mild regurgitation. No evidence of pulmonary hypertension. RVSP 24 mmHg. MITRAL VALVE: Normal mobility and thickness. No evidence of mitral valve stenosis. There is no mitral annular calcification. Mild mitral regurgitation. AORTIC VALVE: Normal trileaflet appearance. No visible sclerosis. Normal leaflet mobility. No evidence of aortic valve stenosis. Trivial aortic regurgitation. AORTIC ROOT: Mildly dilated, measuring 4.1 cm. The ascending aorta is normal in size and measures 3.5 cm. PULMONIC VALVE: Normal thickness and mobility. No stenosis. No regurgitation. PERICARDIUM: No evidence of pericardial effusion. IVC: Collapses with inspiration. Normal size. PLEURA: CONCLUSION: 1. Moderate concentric left ventricular hypertrophy with moderately reduced systolic function. LVEF is estimated at 35%. 2. Normal right ventricular size and systolic function. 3. Moderate to severe biatrial dilatation. 4. Mild mitral and tricuspid regurgitation. 5. Normal right-sided pressures. 6. Mildly dilated aortic root measuring 4.1 cm. Adult Echocardiography Procedure Report Left Ventricle LVEDD (3.7 - 5.6 cm): 6.27 cm LVESD (2.2 - 4.0 cm): 5.43 cm LVIVS thickness (0.6 - 1.2 cm): 1.71 cm LVPW thickness (0.5 - 1.0 cm): 1.35 cm e': 0.06 m/s E - e': 8.17 LVOT Max Gradient: 3.26 mm[Hg] LVOT Area (cm2): 0.90 m/s Peak Velocity (LVOT): 0.90 m/s Mean Velocity (LVOT): 0.62 m/s LVOT Diameter 2.64 cm Left Ventricular Ejection Fraction: 35 % Left Atrium LA Volume Index (2D A2C): 71.38 ml/m2 Left Atrium Systolic Dimension: 5.77 cm Mitral Valve MV E to A Ratio: 1.02 Mitral Valve A-Wave Peak Velocity: 0.52 m/s Mitral Valve E-Wave Peak Velocity: 0.53 m/s Right Ventricle RV Internal Diastolic Dimension: 3.43 cm Aorta AO Root Diam: 4.06 cm Ascending Ao Diam: 3.47 cm Aortic Valve AoV Area (Peak Jozef): 4.11 cm2, 4.11 cm2 AoV Area (VTI): 3.93 cm2, 3.93 cm2 Peak Velocity(Antegrade Flow): 1.20 m/s Peak Gradient(Antegrade Flow): 5.76 mm[Hg] Mean Velocity(Antegrade Flow): 0.84 m/s Mean Gradient(Antegrade Flow): 3.27 mm[Hg] Velocity Time Integral: 21.19 cm Tricuspid Valve Peak Velocity (Regurgitant Flow): 2.30 m/s, 2.21 m/s, 1.95 m/s Pulmonic Valve Mean Gradient: 3.50 mm[Hg], 3.79 mm[Hg] Mean Velocity: 0.87 m/s, 0.89 m/s Peak Velocity: 1.28 m/s Peak Gradient: 6.18 mm[Hg], 7.01 mm[Hg] Right Atrium Right Atrium Systolic Pressure: 55.97 ml, 55.97 ml Dictated by: Harinder Bethea M.D. on 05/06/2025 at 19:42 Approved by: Harinder Bethea M.D. on 05/06/2025 at 19:47
== END 2025-05-06 07:45 | disposition home or self-care (01) ==
LOC: CARD 07:44
PROVIDERS: Family Provider Internal Medicine Interventional Cardiology; PCP Family Medicine; Visit Provider Internal Medicine Interventional Cardiology
DX: I34.0 Nonrheumatic mitral (valve) insufficiency (principal)
CPT/HCPCS: 93306; 93356

== ENCOUNTER 2025-05-26 07:13 | Outpatient (RCR) | payer OTHER, SELFPAY ==
--- NOTE | 2025-04-06 09:44 | CR1_ITS ---
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 Interpretive Statements Patient may start cardiac rehab as outlined in the treatment plan. Electronically Signed On 04-07-2025 17:34:22 EDT by CARLOS BUCK M.D.
--- NOTE | 2025-04-07 08:55 | CR1_ITS ---
[facility] Test Date: 2025-04-07 Pat Name: LINDSAY TORRES Department: Room: - Gender: Male [employer]: : 1965 Requested By: Dylan Matthew Order Number: [id number] Sonja MD: CARLOS BUCK M.D. Interpretive Statements Patient may start cardiac rehab as outlined in the treatment plan. Electronically Signed On 04-07-2025 17:34:38 EDT by CARLOS BUCK M.D.
--- NOTE | 2025-05-03 07:55 | CR1_ITS ---
[facility] Test Date: 2025-05-03 Pat Name: LINDSAY TORRES Department: Room: - Gender: Male Disability Advocate: : 1965 Requested By: Dylan Matthew Order Number: [id number] Sonja MD: CARLOS BUCK M.D. Interpretive Statements Patient may continue cardiac rehab as outlined in the treatment plan. Electronically Signed On 05-03-2025 12:49:13 EST by CARLOS BUCK M.D.
--- NOTE | 2025-05-26 13:40 | CR1_ITS ---
[facility] Test Date: 2025-05-26 Pat Name: LINDSAY TORRES Department: Room: - Gender: Male Manager Trainee: : 1965 Requested By: Dylan Matthew Order Number: [id number] Sonja MD: CARLOS BUCK M.D. Interpretive Statements Patient has completed rehab program and have noted outcomes. Electronically Signed On 05-26-2025 19:13:05 EST by CARLOS BUCK M.D.
== END 2025-05-26 13:42 | disposition home or self-care (01) ==
LOC: CR 07:13
PROVIDERS: Family Provider Internal Medicine Interventional Cardiology; PCP Family Medicine; Visit Provider Internal Medicine Cardiovascular Disease
DX: I50.22 Chronic systolic (congestive) heart failure (principal); E87.6 Hypokalemia
CPT/HCPCS: 36415; 80048; 93798

== ENCOUNTER 2025-05-28 08:10 | Outpatient (OUT) | payer OTHER, SELFPAY ==
--- OUTSIDE RECORDS SUMMARY | 2024-06-19 04:00 | XMS_ITS | Continuity of Care Document ---
Author Organization [facility] Address 5 [facility] [place] [address] Phone Care Team Providers Care Water Pump Assembler Name Role Phone Dany De Jesus MD Unavailable Procedures Procedure Date OFFICE/OUTPATIENT VISIT, EST OFFICE/OUTPATIENT VISIT, EST DIAGNOSTIC COLONOSCOPY OFFICE/OUTPATIENT VISIT, EST OFFICE/OUTPATIENT VISIT, EST OFFICE/OUTPATIENT VISIT, EST OFFICE/OUTPATIENT VISIT, EST PHONE E/M BY PHYS 11-20 MIN POSTOP FOLLOW-UP VISIT POSTOP FOLLOW-UP VISIT POSTOP FOLLOW-UP VISIT SUBSEQUENT HOSPITAL CARE SUBSEQUENT HOSPITAL CARE SUBSEQUENT HOSPITAL CARE INITIAL INPATIENT CONSULT SUBSEQUENT HOSPITAL CARE INITIAL INPATIENT CONSULT NURSING FAC CARE, SUBSEQ NURSING FAC CARE, SUBSEQ LAP GASTRIC BYPASS/AMBER-EN-Y Gastric Bypass OFFICE/OUTPATIENT VISIT, EST PSYCH DIAGNOSTIC EVALUATION PSYCL/NRPSYC TST PHY/QHP 1ST PSYCL/NRPSYC TST PHY/QHP EA OFFICE/OUTPATIENT VISIT, NEW Advance Directives Directive Yes / No Effective Date File Name No Information Encounters Encounter Description Practice Location Reason(s) For Visit Diagnoses Date Provider Providers Copied on Encounter OFFICE/OUTPA TIENT VISIT, [facility], [address], [place], [place], [address] , [place] tel:[phone] [facility] No Information 4 Neal Saenz. [address], [place], [place], [address], [place]. tel:[phone] Referring Provider: Dany Arroyo, [address], [place], [address]. tel:[phone] OFFICE/OUTPA TIENT VISIT, [facility], [address], [place], [place], [address] , [place] tel:[phone] [facility] No Information 3 Neal Saenz. [address], [place], [place], [address], [place]. tel:[phone] Referring Provider: Dany Arroyo, [address], [place], [address]. tel:[phone] [facility], [address], [place], [place], [address] , [place] [phone] [facility] No Information 3 Neal Saenz. [address], [place], [place], [address], [place]. tel:[phone] Referring Provider: Dany Arroyo, [address], [place], [address]. tel:[phone] OFFICE/OUTPA TIENT VISIT, [facility], [address], [place], [address] , [place] [phone] [facility] No Information 2 Neal Saenz. [address], [place], [place], [address], [place]. tel:[phone] Referring Provider: Dany Arroyo, [address], [place], [address]. tel:[phone] OFFICE/OUTPA TIENT VISIT, [facility], [address] [place] [address] [address], [place], [place], [address] , [place] tel:[phone] [facility] No Information 1 Neal Saenz. [address] [place] [address] [address], [place], [place], [address], [place]. tel:[phone] Referring Provider: Dany Arroyo, [address] [facility] [address], [place], [address]. tel:[phone] OFFICE/OUTPA TIENT VISIT, [facility], [address] [place] [address] [address], [place], [place], [address] , [place] tel:[phone] [facility] No Information 0 Neal Saenz. [address] [place] [address] Suite [facility], [place], [place], [address], [place]. tel:[phone] Referring Provider: Dany Arroyo, [address] [facility] [address] [facility], [place], [address]. tel:[phone] OFFICE/OUTPA TIENT VISIT, [facility], [address] [place] [address] [address], [place], [place], [address] , [place] [phone] [facility] No Information 0 Neal Saenz. [address] [facility] [address] [facility], [place], [place], [address], [place]. tel:[phone] Referring Provider: Dany Arroyo, [address] [facility] [address], [place], [address]. tel:[phone] PHONE E/M BY MARY ANN 11- [facility], [address] [place] [address] B, [place], [place], [address] , [place] tel:[phone] [facility] No Information 0 Neal Saenz. [address] [facility] [address] [facility], [place], [place], [address], [place]. tel:[phone] Referring Provider: Dany Arroyo, [address], [place], [address]. tel:[phone] [employer] [facility], [address] [place] [address] [address], [place], [place], [address] , [place] tel:[phone] [facility] No Information 0 Neal Saenz. [address], [place], [place], [address], [place]. tel:[phone] Referring Provider: Dany Arroyo, [address] [facility] [address], [place], [address]. tel:[phone] [facility], [address] [place] [address] [address], [place], [place], [address] , [place] tel:[phone] [facility] No Information 0 Neal Saenz. [address] [facility] [address], [place], [place], [address], [place]. tel:[phone] Referring Provider: Dany Arroyo, [address] [facility] [address], [place], [address]. tel:[phone] [facility], [address] [place] [address] [address], [place], [place], [address] , [place] tel:[phone] [facility] No Information 0 Neal Saenz. [address] [facility] [address], [place], [place], [address], [place]. tel:[phone] Referring Provider: Dany Arroyo, [address] [facility] [address], [place], [address]. tel:[phone] [facility], [address] [place] [address] [address], [place], [place], [address] , [place] tel:[phone] [facility] No Information 0 Dain Patterson. [address], [place], [address], [place]. tel:[phone] Referring Provider: Yesenia Siddiqui, [address] [place], [address]. tel:[phone] INITIAL INPATIENT CONSULT [facility], [address] [place] [address] [address], [place], [place], [address] , [place] tel: [phone] [facility] IP No Information 0 Lulu Luo. [address], [place], [place], [address], [place]. tel:[phone] Referring Provider: Valerio Lawson MD, [address], [place], [address]. tel:[phone] SUBSEQUENT [facility], [address] [place] [address] [address], [place], [place], [address] , [place] tel: [phone] [facility] IP No Information 0 Tiago Onofre. [address] [place], [place], [address], [place]. tel:[phone] Referring Provider: Flakitoalexx Ordoñez, [address] [facility], [place], [address]. tel:[phone] INITIAL INPATIENT CONSULT [employer] [facility], [address] [place] [address] [address], [place], [place], [address] , [place] tel: [phone] [facility] IP No Information 0 Tereza Chavis. [address] [place], [place], [address], [place]. tel:[phone] Referring Provider: Palmira Starks, [address] [place], [address]. tel:[phone] NURSING [facility], [facility], [address] [place] [address] [address], [place], [place], [address] , [place] tel:[phone] [facility] [place] No Information 0 Marylu Downs. [address] [place] [address] [address], [place], [place], [address], [place]. tel:[phone] Referring Provider: Himanshu Siddiqui, [address] [facility], [address], [place], [address]. tel:[phone] NURSING [facility], [facility], [address] [facility] [address], [place], [place], [address] , [place] tel: [phone] [facility] Skilled No Information 0 Pradeep Tomlin. [address], [place], [place], [address], [place]. tel:[phone] Referring Provider: Sada SCOTT, [address], [place], [address]. tel:[phone] [address] [place] [address], [address] [place] [address] [address], [place], [address] , [place] tel: [phone] [facility] IP No Information 9 Neal Saenz. [address] [facility] [address], [facility] [place], [address], [place]. [phone] Referring Provider: Dany Arroyo, [address] [facility] [address], [place], [address]. tel:[phone] [facility], [address] [place] [address] [address], [place], [place], [address] , [place] tel: [phone] [facility] IP No Information 9 Blaise Garcia. [address] [facility] [address], [facility] [place], [address], [place]. tel:[phone] Referring Provider: Radha Welsh, [address] [facility] [address], [place], [address]. tel:[phone] OFFICE/OUTPA TIENT VISIT, [facility], [address] [facility] [address], [place], [place], [address] , [place] tel: [phone] [facility] No Information Neal Saenz. [address] [facility] [address], [place], [place], [address], [place]. tel:[phone] Referring Provider: Dany Arroyo, [address] [facility] [address], [place], [address]. tel:[phone] PSYCH DIAGNOSTIC EVALUATION [facility], [address] [place] [address] [address], [place], [place], [address] , [place] tel:[phone] [facility] No Information No Information OFFICE/OUTPA TIENT VISIT, [facility], [address] [facility] [address], [place], [place], [address] , [place] tel:[phone] [facility] No Information Neal Saenz. [address] [facility] [address], [place], [place], [address], [place]. tel:[phone] Referring Provider: Dany Arroyo, [address] [facility] [address], [place], [address]. tel:[phone] Family History Family Member Type Diagnosis Age At Onset No Information Payers Payer name Insurance type Covered green party ID Brenden pacheco(s) [employer] Benefits CI [id number] Social History Type Description Quantity Date Captured Comments Sex Female Smoking Status No Information Chief Complaint And Reason For Visit No Information Reason For Referral Reason For Referral No Information Plan Of Treatment Date Type Action Status Appointment [facility] [place] BOOKED History Of Present Illness Encounter Date Complaint History Of Prese nt Illness No Information Functional Status Date Functional Assessmen t No Information Instructions Date Instruction Additional Infor mation No Information Assessments Type Assessment Date No Information Patient Care Teams Name Effective Dates (start - stop) Status Members No Information
--- OUTSIDE RECORDS SUMMARY | 2025-05-18 13:40 | XMS_ITS | Encounter Summary ---
Author Organization [facility] Address [address] [place] [address] Care Team Providers Care Product Merchandiser Name Role Phone Jalen Echeverria DO Primary Care Provider [phone] Reason for Visit * ReasonCommentsFollow-upPatient is here today for a follow up appointment with Echo, and Labs, patient needs work release slip. Patient states he feels good,. Patient states he has not heard anything about the ablation. Patient denies chest pain, racing heart/palpitations, SOB/AVALOS, dizziness/lightheaded. HypertensionCongestive Heart FailureAtrial FibrillationPericardial effusion Moderate mitral valve reguritationLVHCoronary Artery DiseaseOrthostatic hypotensionFatigueDue to not sleeping well Encounter Details DateTypeDepartmentCare Team (Latest Contact Info)Keqbgxjwpbk18/18/2025 1:40 PM ESTOffice Visit [facility] [address] [address] Mary Rosales, RIG OPERATOR [address] [place] [address] Chronic systolic heart failure (CMS/HCC) (Primary Dx); Edema, unspecified type; Atrial fibrillation with RVR (CMS/HCC); Paroxysmal atrial fibrillation (CMS/HCC); Ascending aorta dilatation; Benign hypertensive heart disease with heart failure (CMS/HCC); Coronary artery disease involving [place] coronary artery of [place] heart without angina pectoris; LVH (left ventricular hypertrophy); Orthostatic hypotension Social History Tobacco UseTypesPacks/DayYears UsedDateSmoking Tobacco: NeverSmokeless Tobacco: NeverAlcohol UseStandard Drinks/WeekCommentsYes0 (1 standard drink = 0.6 oz pure alcohol)occasionalC[facility] UtilitiesAnswerDate RecordedIn the past 12 months has [...] were you homeless or living in a skilled nursing (including now)?No02/18/2025Hunger Vital SignAnswerDate Recorded Within the past 12 months, you worried that your food would run out before you got the money to buymore.Never true02/18/2025Ran Out of Food in the Last YearNot on file02/18/2025Sex and Gender InformationValueDate RecordedSex Assigned at AjfmwIghu83/22/2025 9:32 AM EDTLegal FfwOqxg8812/27/2021 10:20 PM EDTGender AqmbcdwzLisa46/22/2025 9:32 AM EDTSexual OrientationDon't know02/19/2025 10:20 AM EDTdocumented as of this encounter Last Filed Vital Signs Vital SignReadingTime TakenCommentsBlood Wrtjnywf699/6805/18/2025 1:45 PM EST Mekra884705/18/2025 1:45 PM ESTTemperature--Respiratory Rate--Oxygen Bggjcksnyy98% 05/18/2025 1:45 PM ESTInhaled Oxygen Concentration--Ehlnxp847 kg (226 lb) 05/18/2025 1:45 PM IXKUuhdwd993.7 cm (5' 8 )05/18/2025 1:45 PM ESTBody Mass Index34.36107/18/2024 1:45 PM ESTdocumented in this encounter Patient Instructions * Patient Instructions* Mary Rosales CNP - 05/18/2025 1:40 PM EST *We will start Farxiga 10mg daily to try to further help with your heart failure. *Drop lasix down to just 20mg daily. *Have follow-up lab work done in 1 month. documented in this encounter Progress Notes * Mary Rosales CNP - 05/18/2025 1:40 PM EST Images from the original note were not included. Cardiovascular Medicine [facility] SUBJECTIVE Chief Complaint Patient presents with Follow-up Patient is here today for a follow up appointment with Echo, and Labs, patient needs work release slip. Patient states he feels good,. Patient states he has not heard anything about the ablation. Patient denies chest pain, racing heart/palpitations, SOB/AVALOS, dizziness/lightheaded. Hypertension Congestive Heart Failure Atrial Fibrillation Pericardial effusion Moderate mitral valve reguritation LVH Coronary Artery Disease Orthostatic hypotension Fatigue Due to not sleeping well Long Pinto is a 59 y.o. male here for follow-up after his recent admission to [facility] and transfer to [facility]. Hypertension Congestive Heart Failure Associated symptoms include fatigue. His past medical history is significant for CAD. Atrial Fibrillation Past medical history includes atrial fibrillation, CAD and CHF. Coronary Artery Disease His past medical history is significant for CHF. Fatigue Associated symptoms include fatigue. 05/18/2025 Since last seen he saw Dr. Chavez. Pt decided to proceed with an ablation procedure. He was startedon amio. He has started cardiac rehab - he states things are going well. Denies c/o CP, dyspnea, orthopnea, PND, LE edema, dizziness/LH, palpitations, syncope. He is asking about returning back to work. EF improving was 20%, now is 35%. He states he feels ready to return back. 03/10/2025 He has been feeling better overall [...] Diagnosis: Acute systolic CHF (congestive heart failure) ([facility]) [I50.21] A-fib ([facility]) [I48.91] Hospital course: Long Pinto is an 59 y.o. male who came from home with past medical history of hypertension, severe LVH, ENA, obesity s/p gastric bypass presents as a direct mission for [facility] with newonset A-fib as well as new onset systolic CHF. Patient initially presenting to [facility] with bloating and constipation. He states that [...] a small pericardial effusion. He was transferred [facility] for higher level of care. Patient [...] Social History[4] Allergies[5] OBJECTIVE Visit Vitals BP 111/68 (BP Location: Left arm, Patient Position: Sitting) Pulse 65 Ht 1.727 m (5' 8 ) Wt 103 kg (226 lb) SpO2 99% BMI 34.36 kg/m?? Smoking Status Never BSA 2.22 m?? [...] displayed because visit has over 200 results. 04/08/25 Cr 1.16, BUN 18, K 3.9, Na 140, eGFR >60 Testing/Procedures: Encounter Date: 02/18/25 ECG 12 lead Result Value Ventricular Rate 78 Atrial Rate 78 MA Interval 206 QRS DURATION 182 QT Interval 432 QTC CALCULATION(BAZETT) 492 P [place] 53 R-[place] -31 T Wave [place] 134 Impression Sinus rhythm with Premature supraventricular complexes Left axis deviation Left bundle branch block Abnormal ECG When compared with ECG of 03-MAR-2025 10:07, Premature supraventricular complexes are now Present Confirmed by Prabhu Chavez ([id number]) on 03/04/2025 5:11:38 PM ECHO 05/06/2025 CONCLUSION: 1. Moderate concentric left ventricular hypertrophy with moderately reduced systolic function. LVEFis estimated at 35%. 2. Normal right ventricular size and systolic function. 3. Moderate to severe biatrial dilatation. 4. Mild mitral and tricuspid regurgitation. 5. Normal right-sided pressures. 6. Mildly dilated aortic root measuring 4.1 cm. Coronary CTA 03/04/2025 Left Main: The left [...] seen --ECHO 2019: Severe LVH, EF 40% ASSESSMENT/PLAN: Diagnoses and all orders for this visit: Chronic systolic heart failure (CMS/HCC) - Basic metabolic panel; Future - dapagliflozin propanediol (Farxiga) 10 mg; Take 1 tablet (10 mg) by mouth in the morning. Edema, unspecified type - furosemide (Lasix) 20 mg tablet; Take 1 tablet (20 mg) by mouth in the morning. Atrial fibrillation with RVR (CMS/HCC) Paroxysmal atrial fibrillation (CMS/HCC) Ascending aorta dilatation Benign hypertensive heart disease with heart failure (CMS/HCC) Coronary artery disease involving [place] coronary artery of [place] heart without angina pectoris LVH (left ventricular hypertrophy) Orthostatic hypotension #Chronic HFrEF, EF 35% -Newly found -Coronary CTA found mild CAD, therefore NICM, likely tachymediated in the setting of a.fib -NYHA II -BERNARDINO 03/2025: EF 20% -TTE 05/2025: EF 35% -He appears compensated on exam -Currently he is taking lasix 60mg daily. -GDMT: was planning to switch valsartan to Entresto but pt had syncopal episode in the office therefore will hold off on medications due to suspected orthostatic hypotension. At this time continue valsartan, spironolactone, Toprol. Will add Farxiga 10mg daily and decrease lasix to 20mg daily. -Advised he can take extra lasix if needed for weight gain of 2-3# in a day or 5# in a week, increased let swelling or SOB. -F/U labs in 1 month -Continue cardiac rehab. -Advised he could return back to work but he will let us know if he does not tolerate it. #Paroxysmal A-fib with RVR, s/p BERNARDINO & CV 03/04/25 -[id number]-BQIe 2, started Eliquis on 03/04/2025 -RRR on exam -continue Toprol and amio -Plans for a.fib ablation -Denies bleeding issues -Continue Eliquis #Essential hypertension #LVH #Suspected orthostatic hypotension in light of syncopal event. -BP was normotensive during visit and BP was low after syncopal event at 102/61, likely has [place] -BP normal today. Continue to monitor #Chronic left bundle branch block #CAD -- Coronary CTA performed 03/05/2025 showing mild CAD -Given no significant stenosis, already taking Eliquis, and hx of rectal sheath hematoma, not on ASA at this time -Continue Toprol -Will need to discuss initiating statin at next visit #Acute blood loss anemia # Spontaneous bilateral rectal sheath hematoma after starting AC, -- Transfused 1 unit PRBC, hemoglobin on day of discharge was at 8.1 #Aorta dilatation -AscAo mildly dilated at 4.1cm per 05/2025 TTE -Continue strict BP/HR control Follow up in about 1 month (around 06/17/2025). Mary Rosales CNP [facility] [1] Patient Active Problem List Diagnosis Gout Primary hypertension Obesity ENA (obstructive sleep apnea) Ascending aorta dilatation Acute systolic CHF (congestive heart failure) (CMS/HCC) New onset a-fib (CMS/HCC) S/P gastric bypass Pericardial effusion Moderate mitral valve regurgitation Atrial fibrillation with RVR (CMS/HCC) A-fib (CMS/HCC) Hematoma Angina pectoris, unstable (CMS/HCC) Chronic systolic heart failure (CMS/HCC) LVH (left ventricular hypertrophy) Coronary artery disease involving [place] coronary artery of [place] heart without angina pectoris Benign hypertensive heart disease with heart failure (CMS/HCC) Orthostatic hypotension Syncope and collapse Hematoma of rectus sheath Anticoagulated Chronic idiopathic constipation Urinary retention [2] Past Medical History: Diagnosis Date Hypertension Obesity ENA (obstructive sleep apnea) [3] Family History Problem Relation Name Age of Onset Hypertension Mother Cancer Father Coronary artery disease Father Hypertension Father [4] Social History Tobacco Use Smoking status: Never Smokeless tobacco: Never Substance Use Topics Alcohol use: Yes Comment: occasional Drug use: Never [5] No Known Allergies [6] Current Outpatient Medications: amiodarone (Pacerone) 200 mg tablet, Take 2 tablets (400 mg) by mouth two times daily for 14 days, THEN 1 tablet (200 mg) in the morning. (Patient taking differently: 200 mg in am morning.), Disp: 146 tablet, Rfl: 0 apixaban (Eliquis) 5 mg tablet, Take 1 tablet (5 mg) by mouth two times daily., Disp: 180 tablet, Rfl: 3 bisacodyl (Dulcolax) 5 mg EC tablet, Take 1 tablet (5 mg) by mouth in the morning for 91 doses. Do not crush, chew, or split., Disp: 30 tablet, Rfl: 0 ferrous sulfate 325 (65 Fe) MG tablet, Take 65 mg by mouth in the morning and at bedtime., Disp: , Rfl: metoprolol succinate XL (Toprol-XL) 25 mg 24 hr tablet, Take 3 tablets (75 mg) by mouth in the morning. Do not crush or chew., Disp: 270 tablet, Rfl: 3 spironolactone (Aldactone) 25 mg tablet, Take 0.5 tablets (12.5 mg) by mouth in the morning., Disp:45 tablet, Rfl: 3 tamsulosin (Flomax) 0.4 mg 24 hr capsule, Take 1 capsule (0.4 mg) by mouth in the morning for 89 doses., Disp: 30 capsule, Rfl: 2 valsartan (Diovan) 40 mg tablet, Take 0.5 tablets (20 mg) by mouth in the morning., Disp: 45 tablet, Rfl: 3 dapagliflozin propanediol (Farxiga) 10 mg, Take 1 tablet (10 mg) by mouth in the morning., Disp: 90tablet, Rfl: 3 furosemide (Lasix) 20 mg tablet, Take 1 tablet (20 mg) by mouth in the morning., Disp: 90 tablet, Rfl: 3 documented in this encounter Plan of Treatment DateTypeDepartmentCare Team (Latest Contact Info)Zcbjahanfho41/18/2025 3:20 PM ESTOffice Visit [facility] [address] [place] [id number] Mary Rosales CNP [address] [place] [id number] NameTypePriorityAssociated DiagnosesOrder ScheduleBasic metabolic panelLab Routine Chronic systolic heart failure (CMS/HCC) Expected: 05/18/2025 (Approximate), Expires: 05/18/2026documented as of this encounter Visit Diagnoses Diagnosis Chronic systolic heart failure (CMS/HCC)- Primary Chronic systolic heart failure Edema, unspecified type Atrial fibrillation with RVR (CMS/HCC) Paroxysmal atrial fibrillation (CMS/HCC) Atrial fibrillation Ascending aorta dilatation Thoracic aneurysm without mention of rupture Benign hypertensive heart disease with heart failure (CMS/HCC) Coronary artery disease involving [place] coronary artery of [place] heart without angina pectoris LVH (left ventricular hypertrophy) Cardiomegaly Orthostatic hypotension documented in this encounter Care Teams Team MemberRelationshipSpecialtyStart DateEnd Jalen Monreal DO [address] [place] [address] PCP - Wajmyeh93/3/22documented as of this encounter
--- OUTSIDE RECORDS SUMMARY | 2025-05-28 08:17 | XMS_ITS | Clinical Summary ---
Author Organization [facility] Address [address] [place] [place] [address] Care Team Providers Care Geographic Information Systems Engineer Name Role Phone Jalen Linder DO Primary Care Provider [phone] Allergies No known active allergies Medications MedicationSigDispense QuantityRefillsLast FilledStart DateEnd DateStatus ferrous sulfate 325 (65 Fe) MG tablet Take 65 mg by mouth in the morning and at bedtime.Active bisacodyl (Dulcolax) 5 mg EC tablet Indications:S/P gastric bypassTake 1 tablet (5 mg) by mouth in the morning for 91 doses. Do not crush, chew, or split. 30 tablet 512/5Active tamsulosin (Flomax) 0.4 mg 24 hr capsule Indications:Benign prostatic hyperplasia, unspecified whether lower urinary tract symptoms presentTake 1 capsule (0.4 mg) by mouth in the morning for 89 doses. 30 capsule 512/5Active amiodarone (Pacerone) 200 mg tablet Indications:Paroxysmal atrial fibrillation (CMS/HCC)Take 2 tablets (400 mg) by mouth two times daily for 14 days, THEN 1 tablet (200 mg) in the morning. 146 tablet 501/6Active Additional Information Patient taking differently: 200 mg in am morning., Reported on 05/18/2025 valsartan (Diovan) 40 mg tablet Indications:Acute systolic CHF (congestive heart failure) (CMS/HCC)Take 0.5 tablets (20 mg) by mouth in the morning. 45 tablet 510/6Active spironolactone (Aldactone) 25 mg tablet Indications:Acute systolic [...] not crush or chew. 270 tablet ctive furosemide (Lasix) 20 mg tablet Indications:Edema, unspecified typeTake 1 tablet (20 mg) by mouth in the morning. 90 tablet ctive dapagliflozin propanediol (Farxiga) 10 mg Indications:Chronic systolic heart failure (CMS/HCC)Take 1 tablet (10 mg) by mouth in the morning. 90 tablet ctive empagliflozin (Jardiance) 10 mg Indications:Acute on chronic systolic heart failure (CMS/HCC)Take 1 tablet (10 mg) by mouth in the morning. 90 tablet ctive furosemide (Lasix) 20 mg tablet Indications:Edema, unspecified typeTake 3 tablets (60 mg) by mouth in the morning. 270 tablet Discontinued Active Problems ProblemNoted DateDiagnosed DateChronic idiopathic bbldpnyodnwy22/23/2025Urinary dybxkwqux49/23/2025Hematoma of rectus bxifid3903/22/20257737Bzgbrjqyliykvz45/22/2025 Chronic systolic heart nqbitgk1203/10/2025LVH (left ventricular hypertrophy) 03/10/2025oronary artery disease involving seminole coronary artery of seminole heart without angina rywbsisf56/10/2025enign hypertensive heart disease with heart ybphgrd0303/10/2025Orthostatic gyucrvtjcpn94/10/2025Syncope and collapse 03/10/2025-fib02/22/20251051Ujtvqxdd77/25/2025 Assessment & Plan (02/22/2025 9:46 AM EDT): [...] 5000 at outside facility was 491 at [facility] -CXR showed cardiomegaly with vascular congestion and CT of the abdomen showed anasarca and ascites -Echocardiogram was completed at [place] which showed an EF of 15 to [...] 5000 at outside facility was 491 at [facility] -CXR showed cardiomegaly with vascular congestion and CT of the abdomen showed anasarca and ascites -Echocardiogram was completed at [place] which showed an EF of 15 to [...] 5000 at outside facility was 491 at [facility] -CXR showed cardiomegaly with vascular congestion and CT of the abdomen showed anasarca and ascites -Echocardiogram was completed today at [place] which showed an EF of 15 to 20%, moderate pulmonaryhypertension, moderate mitral valve regurgitation and small pericardial effusion -Begin Lasix 40 mg IV twice daily -Strict intake and output, daily weights - continue lisinopril, Toprol-XL and Aldactone 25 mg Assessment & Plan (02/19/2025 2:43 PM EDT): - unable to assess NYHA class - BNP over 5000 at outside facility was 491 at [facility] -CXR showed cardiomegaly with vascular congestion and CT of the abdomen showed anasarca and ascites -Echocardiogram was completed today at [place] which showed an EF of 15 to [...] 5000 at outside facility was 491 at [facility] -CXR showed cardiomegaly with vascular congestion and CT of the abdomen showed anasarca and ascites -Echocardiogram was completed today at [place] which showed an EF of 15 to [...] deferred due to hypotension and clinical instability -LOCATED WITHIN [facility] Assessment & Plan (02/21/2025 10:16 AM [...] digoxin, BERNARDINO cardioversion once euvolemic. Likely 02/21 -LOCATED WITHIN [facility] Assessment & Plan (02/20/2025 12:57 PM EDT): - Patient found to be in new onset atrial fibrillation at outside hospital, was initially on Cardizem drip but was discontinued due to low blood pressure -Patient was also initially given a dose of Xarelto at outside hospital, will transition to heparininfusion -Continue Toprol-XL and loading dose digoxin, BERNARDINO cardioversion once euvolemic -LOCATED WITHIN [facility] WNL Assessment & Plan (02/19/2025 2:43 PM EDT): - Patient found to be in new onset atrial fibrillation at outside hospital, was initially on Cardizem drip but was discontinued due to low blood pressure -Patient was also initially given a dose of Xarelto at outside hospital, will transition to heparininfusion -Continue Toprol-XL and loading dose digoxin, possible BERNARDINO cardioversion. - -TSH WNL Assessment & Plan (02/18/2025 11:00 PM [...] dose, electrolytes within normal limits -TSH WNL S/P gastric ohxfcc8802/18/2025 Assessment & Plan (02/22/2025 9:46 AM EDT): - Stable Assessment & Plan (02/21/2025 10:16 AM EDT): - Stable Assessment & Plan (02/20/2025 12:57 PM EDT): - Stable Assessment & Plan (02/19/2025 2:43 PM EDT): - Stable Assessment & Plan (02/18/2025 11:00 PM EDT): - Stable Pericardial yhadbiqc00/21/2025 Assessment & Plan (02/18/2025 11:00 PM EDT): - Small pericardial effusion noted on echocardiogram, cardiology consult Moderate mitral valve kvadncwehcqkf33/21/2025 Assessment & Plan (02/18/2025 11:00 PM EDT): - Cardiology consult Angina pectoris, diheswab27/21/2025scending aorta guwnwqmtyu37/05/2022Obesity 09/10/2018Gout05/18/2016Primary jiowertmulym19/18/2016 Assessment & Plan (02/22/2025 9:44 AM EDT): [...] 11:00 PM EDT): - Stable Encounters DateTypeDepartmentCare EmatJfgofkhwbhi95/25/2025Telephone [facility] [address] [place] [address] Amber Garcia MA 05/24/2025Orders Only [facility] [address] [place] [address] Iveth Henao MA Acute on chronic systolic heart failure (CMS/HCC) (Primary Dx)05/21/2025 Telephone [facility] [address] [place] [address] Iveth Henao MA 05/21/2025Hospital Encounter [facility] Heart and Vascular Center Vascular Lab [address] [place] [phone] Prabhu Chavez MD 05/18/2025 1:40 PM ESTOffice Visit [facility] [address] [place] [address] Mary Rosales CNP Chronic systolic heart failure (CMS/HCC) (Primary Dx); Edema, unspecified type; Atrial fibrillation with RVR (CMS/HCC); Paroxysmal atrial fibrillation (CMS/HCC); Ascending aorta dilatation; Benign hypertensive heart disease with heart failure (CMS/HCC); 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; LVH (left ventricular hypertrophy); Orthostatic filncvwqjab84/07/2025Orders Only [facility] [address] [place] [address] ProviderMarco MD 05/05/2025Telephone [facility] [address] [place] [address] Amber Garcia MA 04/01/2025Results Follow-Up [facility] UROLOGY [address] [place] [phone] Haily Botello, HARINI CBC and differential, Comprehensive metabolic panel03/31/2025Refill [facility] [address] [place] [address] Amber Garcia MA Acute systolic CHF (congestive heart failure) (CMS/HCC); Edema, unspecified type03/31/2025Orders Only [facility] Urology [address] [place] [phone] Haily Botello CNP 03/24/2025Telephone [facility] [address] [place] [address] Amber Garcia MA 03/23/2025 1:00 PM EDTFollow-Up [facility] [address] [place] [address] Prabhu Chavez MD Paroxysmal atrial fibrillation (CMS/HCC) (Primary Dx)03/23/2025Orders Only [facility] [address] [facility], [facility] Amber Garcia MA Paroxysmal atrial fibrillation (CMS/HCC) (Primary Dx)03/23/2025Telephone [facility] [address] [place] [address] Amber Garcia MA 03/23/2025Orders Only [facility] [address] [place] [address] Amber Garcia MA Paroxysmal atrial fibrillation (CMS/HCC) (Primary Dx)03/22/2025 1:30 PM EDT Follow-Up [facility] Vascular and Endovascular Surgery [address] [place] [address] Jeni Murray NP Hematoma of rectus sheath, subsequent encounter (Primary Dx); Anticoagulated; New onset a-fib (CMS/HCC)03/22/2025Orders Only [facility] Urology [address] [place] [phone] Marco Michelle MD 03/18/2025 10:30 AM EDTFollow-Up [facility] Urology [address] [place] [address] Haily Botello CNP Gross hematuria (Primary Dx); Bilateral hydronephrosis; Acute kidney injury; Anemia, unspecified type03/11/2025Telephone [facility] [address] [place] [address] Amber Garcia MA 03/11/2025Orders Only [facility] Heart [facility] [address] [place] [phone] Cinthya Guzman MA Syncope and collapse (Primary Dx)03/10/2025 3:20 PM EDTOffice Visit [facility] [address] [place] [address] Mary Rosales CNP Paroxysmal atrial fibrillation (CMS/HCC) (Primary Dx); Acute systolic CHF (congestive heart failure) (CMS/HCC); Chronic systolic heart failure (CMS/HCC); Blood loss anemia; LVH (left ventricular hypertrophy); 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; Benign hypertensive heart disease with heart failure (CMS/HCC); Orthostatic hypotension; Syncope and bdmuyvhf76/08/2025Telephone [facility] Vascular Lab [address] [place] [address] Ching Lopez RN HF post discharge call and inpt survey sent.03/03/2025 9:30 AM EDT - 03/03/2025 10:30 AM EDTSurgery [facility] [address] [place] [address] Hugo Rojas MD Dcpefvuvjqxaq26/21/2025 5:46 PM EDT - 03/05/2025 5:57 PM EDTHospital Encounter [facility] [address] [place] [address] Gabriele Nick MD Saad, Hani, MD Chang, [...] symptoms present Discharge Disposition: Home-Health Care [facility] (06)from Last 3 Months Immunizations ImmunizationAdministration DatesNext DueInfluenza, injectable, quadrivalent 06/01/2016Pneumococcal Conjugate PCV 13009/19/2016Unspecified Sars-Cov-2 Obnccifilqh57/22/2021,09/22/2020 Family History Medical HistoryRelationNameCommentsCancerFatherCoronary artery diseaseFather HypertensionFatherHypertensionMotherRelationNameStatusCommentsFatherDeceased MotherDeceased Social History Tobacco UseTypesPacks/DayYears UsedDateSmoking Tobacco: NeverSmokeless Tobacco: Never Tobacco Cessation:Counseling Given: Not Answered Alcohol UseStandard Drinks/WeekCommentsYes0 (1 standard drink = 0.6 oz pure alcohol)occasionalC UtilitiesAnswerDate RecordedIn the past 12 months has the [place], gas, oil, or water [employer] threatened to shut off services in your [...] were you homeless or living in a long-term (including now)?No02/18/2025Hunger Vital SignAnswerDate Recorded Within the past 12 months, you worried that your food would run out before you got the money to buymore.Never true02/18/2025Ran Out of Food in the Last YearNot on file02/18/2025Sex and Gender InformationValueDate RecordedSex Assigned at HplkhThcl76/22/2025 9:32 AM EDTLegal VsaZfqh2212/27/2021 10:20 PM EDTGender MzxdqibgHpuu72/22/2025 9:32 AM EDTSexual OrientationDon't know02/19/2025 10:20 AM EDT Last Filed Vital Signs Vital SignReadingTime TakenCommentsBlood Nlzrxilg478/6805/18/2025 1:45 PM EST Vrueb367605/18/2025 1:45 PM WUCKhvqfzrtnmd46.4 ??C (97.5 ??F)03/18/2025 10:26 AM EDTRespiratory Etrk504403/22/2025 1:28 PM EDTOxygen Xriuigtzzo30%05/18/2025 1:45 PM ESTInhaled Oxygen Concentration--Ftnkhx864 kg (226 lb)05/18/2025 1:45 PM EST Ncdcws716.7 cm (5' 8 )05/18/2025 1:45 PM ESTBody Mass Index34.36107/18/2024 1:45 PM EST Plan of Treatment DateTypeDepartmentCare Team (Latest Contact Info)Uskpcehtnho23/18/2025 3:20 PM ESTOffice Visit [facility] [address] [place] [address] Mary Rosales, MANAGER PROCESS [address] [place] [address] Health MaintenanceDue DateLast DoneCommentsCT Mcekdermswgy56/05/1967Colonoscopy 1966Colorectal Cancer Adpvtjocr31/05/1967FIT-DNA1966FIT1966 FOBT1966 2827Qqvnlwymbjdpd83/05/1967Hepatitis B Vaccines (1 of 3 - 19+ 3-dose series)1985Adult Xmxyaax1609/02/1988Zoster Vaccines (1 of 2)2016 Pneumococcal Vaccine: Pediatrics (0 to 5 Years) and At-Risk Patients (6 to 64 Years) (2 of 2 - PPSV23, PCV20, or PCV21)COVID-19 Vaccine ( - season), 10/20/2020, 09/22/2020, Additional history existsInfluenza Vaccine (#1)/08/2015Depression [...] to complete this topic Procedures Procedure NamePriorityDate/TimeAssociated DiagnosisCommentsCOMPLETE TRANSTHORACIC ECHO (TTE) W/WO IMAGING AGENT, STRAIN, 3D, BUBBLE STUDYRoutine 05/06/2025 9:56 AM ESTCOMPREHENSIVE METABOLIC ATUZHCnjnhhu17/25/2025 10:38 AM EDT CBC AND RAMZEPXEJXIQXmnktwn14/25/2025 10:38 AM EDT ECG 12 LEAD UNIT YLMZZNFONQqyxdpf42/23/2025 1:23 PM EDT Paroxysmal atrial fibrillation (CMS/HCC) CBC AND HPOQIFQYKJNKYcnsgez64/12/2025 8:36 AM EDTCOMPREHENSIVE METABOLIC PANEL Tveeehe6003/12/2025 8:36 AM EDTECG 12 LEAD UNIT RNZUCQQPZRcrkxmy47/10/2025 3:24 PM EDT Paroxysmal atrial fibrillation (CMS/HCC) CBCPending Lknqsqknx92/05/2025 5:00 AM EDT PHOSPHORUSPending Awjypeflm47/05/2025 5:00 AM EDT MAGNESIUMPending Petfffgnv82/05/2025 5:00 AM EDT COMPREHENSIVE METABOLIC PANELPending Lrremehnp21/05/2025 5:00 AM EDT CTA HEART CORONARY W IV CONTRAST W OR WO YNLUMLsvgnhm53/04/2025 3:29 PM EDT LAVENDER IFMPssxfit97/04/2025 4:48 AM EDT LIGHT GREEN VXMNzpteur99/04/2025 4:48 AM EDT EXTRA EUGBIGcrrhqv74/04/2025 4:48 AM EDT ANTI-FACTOR XAPending Zleypvulw93/04/2025 4:41 AM EDT ECG 12-EJHSHOES16/04/2025 4:06 AM EDT CBCPending Lpvyyghld75/04/2025 1:08 AM EDT PHOSPHORUSPending Hacoustav31/04/2025 1:08 AM EDT MAGNESIUMPending Shsmzpmkw14/04/2025 1:08 AM EDT COMPREHENSIVE METABOLIC PANELPending Urpblgyqk98/04/2025 1:08 AM EDT ANTI-FACTOR XAPending Grjwdpbxh40/04/2025 1:08 AM EDT ANTI-FACTOR XAPending Oydmspbjr47/03/2025 7:54 PM EDT PLATELET COUNTSTAT Add-on03/03/2025 12:54 PM EDT DGBVUWLP68/03/2025 12:54 PM EDT ECG 12-ECVNGbyinwu29/03/2025 10:36 AM EDT TRANSESOPHAGEAL ECHO (BERNARDINO) W/ LIMITED DOPPLER AND COLOR YPGOGypvqlj61/03/2025 10:09 AM EDT MPWFDULNZHXYPCnchofv71/03/2025 10:01 AM EDT A-fib (CMS/HCC) ECG 12-EHALVybeobx32/03/2025 9:26 AM EDT CBCPending Aneylquwi74/03/2025 3:46 AM EDT DIGOXIN LEVELPending Jnclpvlwu24/03/2025 3:46 AM EDT PHOSPHORUSPending Tbljbvofq67/03/2025 3:46 AM EDT MAGNESIUMPending Hkgmwmrlj41/03/2025 3:46 AM EDT COMPREHENSIVE METABOLIC PANELPending Gbvvpqxyu02/03/2025 3:46 AM EDT ANTI-FACTOR XAPending Roswwsxgy77/03/2025 3:46 AM EDT ANTI-FACTOR XAPending Fcakbsvfh26/02/2025 9:21 PM EDT URINALYSISPending Suiomucjk94/02/2025 2:48 PM EDT PDWUTRGY22/02/2025 2:09 PM EDT LIMITED ECHO (TTE) W/ LIMITED DOPPLER, COLOR FLOW AND IMAGING AGENTRoutine 03/02/2025 12:33 PM EDT PLATELET COUNTSTAT Add-on03/02/2025 4:26 AM EDT LAVENDER GNXJxenzwp17/02/2025 4:26 AM EDT EXTRA EGMTXSrixzyo11/02/2025 4:26 AM EDT PHOSPHORUSPending Cqkhlnvlh30/02/2025 4:26 AM EDT MAGNESIUMPending Lghqosrkh20/02/2025 4:26 AM EDT COMPREHENSIVE METABOLIC PANELPending Nqoppgbzo23/02/2025 4:26 AM EDT DIGOXIN LEVELAdd-On03/01/2025 5:12 AM EDT LAVENDER HOOWgmogik86/01/2025 5:12 AM EDT EXTRA QGUTHBphtezr51/01/2025 5:12 AM EDT PHOSPHORUSPending Egnsudcef88/01/2025 5:12 AM EDT MAGNESIUMPending Fvzifnebx13/01/2025 5:12 AM EDT COMPREHENSIVE METABOLIC PANELPending Lmigxkzus80/01/2025 5:12 AM EDT PHOSPHORUSPending Yhvkpagzi99/31/2025 3:42 AM EDT MAGNESIUMPending Kvyfmfvip67/31/2025 3:42 AM EDT COMPREHENSIVE METABOLIC PANELPending Loqkhkzag85/31/2025 3:42 AM EDT CBCPending Cxbfkpkuu48/31/2025 3:42 AM EDT CBCPending Fwrworlae41/30/2025 11:38 PM EDT CBCPending Togrfauyj93/30/2025 6:49 PM EDT CBCPending Qqcadixji81/30/2025 12:13 PM EDT PHOSPHORUSPending Bdrgqaqlo58/30/2025 5:58 AM EDT MAGNESIUMPending Yfsysqljb77/30/2025 5:58 AM EDT COMPREHENSIVE METABOLIC PANELPending Wgphncgms43/30/2025 5:58 AM EDT CBCPending Upkdjpiqd76/30/2025 5:58 AM EDT CBCPending Pkspqtmnw27/29/2025 11:21 PM EDT CBCPending Rtsvetzfu48/29/2025 6:18 PM EDT RETICULOCYTE PANELAdd-On02/26/2025 11:48 AM EDT CBCPending Mnglljbhv37/29/2025 11:48 AM EDT FOLATEAdd-On02/26/2025 5:13 AM EDT VITAMIN H45Jdb-Dk01/29/2025 5:13 AM EDT FERRITINAdd-On02/26/2025 5:13 AM EDT IRON AND TIBCAdd-On02/26/2025 5:13 AM EDT PHOSPHORUSPending Trmouopue58/29/2025 5:13 AM EDT MAGNESIUMPending Hlzkcjdav15/29/2025 5:13 AM EDT COMPREHENSIVE METABOLIC PANELPending Qcgsiyfgi57/29/2025 5:13 AM EDT CBCPending Jqiglufvc20/29/2025 5:13 AM EDT CBCPending Mpmiqtlxz99/28/2025 11:56 PM EDT CBCPending Vicyejtwq01/28/2025 6:08 PM EDT CBCPending Pefaukmgm17/28/2025 1:29 PM EDT CTA ABDOMEN PELVIS W IV MXDXIFVRYfalsrj21/28/2025 10:49 AM EDT TRANSFUSE RED BLOOD WKGGUGpqmmgx41/28/2025 10:10 AM EDTHEMOGLOBIN AND HEMATOCRIT, BLOODPending Jxecjoowq43/28/2025 9:04 AM EDT DIGOXIN LEVELPending Zrlugrqoz62/28/2025 5:06 AM EDT PHOSPHORUSPending Bqypsyzze20/28/2025 5:06 AM EDT MAGNESIUMPending Kxyfpxglh18/28/2025 5:06 AM EDT COMPREHENSIVE METABOLIC PANELPending Glmepscua24/28/2025 5:06 AM EDT CBCPending Mgzquxzjh92/28/2025 5:06 AM EDT CBCPending Gypjdrwyk43/28/2025 12:06 AM EDT from Last 3 Months Results * Complete Echo (TTE) w/wo Imaging Agent, Strain, 3D, Bubble Study (05/06/2025 9:56 AM EST)Anatomical RegionLateralityModalityUltrasound Narrative Authorizing ProviderResult TypeResult StatusHistorical Provider [facility] [place]CHO PROCEDURESFinal Result * CBC and differential (03/25/2025 10:38 AM EDT) Only the most recent of2 resultswithin the time period is included. Specimen (Source)Anatomical Location / LateralityCollection Method / Volume Collection TimeReceived TimeBloodVenous blood specimen / Unknown Narrative Authorizing ProviderResult TypeResult StatusAngetoya ZingLAB BLOOD ORDERABLESFinal Result * Comprehensive metabolic panel (03/25/2025 10:38 AM EDT) Only the most recent of11 resultswithin the time period is included. Specimen (Source)Anatomical Location / LateralityCollection Method / Volume Collection TimeReceived TimeBloodVenous blood specimen / Unknown Narrative Authorizing ProviderResult TypeResult StatusAngeCartiHealLAB BLOOD ORDERABLESFinal Result * ECG 12 lead unit performed (03/23/2025 1:23 PM EDT) Only the most recent of2 resultswithin the time period is included. Specimen (Source)Anatomical Location / LateralityCollection Method / Volume Collection TimeReceived Time Narrative Authorizing ProviderResult TypeResult Lashonda Chavez MDECG ORDERABLESFinal Result * (ABNORMAL) CBC (03/05/2025 5:00 AM EDT) Only the most recent of17 resultswithin the time period is included. ComponentValueRef RangeTest MethodAnalysis TimePerformed AtPathologist Signature Auto WBC7.454.00 - 10.60 10*3/uL03/05/2025 5:48 AM [facility] ([facility]) RBC2.69(L)4.20 - 5.70 10*6/uL03/05/2025 5:48 AM [facility] ([facility]) Hemoglobin8.1(L)13.0 - 17.0 g/dL03/05/2025 5:48 AM [facility] ([facility]) Kvwqnsvguw85.2(L)39.0 - 50.0 %03/05/2025 5:48 AM [facility] ([facility]) MCV90.082.0 - 98.0 fL03/05/2025 5:48 AM [facility] ([facility])MCH30.127.0 - 33.0 pg03/05/2025 5:48 AM [facility] ([facility])MCHC33.532.0 - 35.0 g/dL03/05/2025 5:48 AM [facility] ([facility])RDW16.3(H)11.5 - 15.0 % 03/05/2025 5:48 AM [facility] ([facility])Cjgkrstwv164516 - 400 10*3/uL 03/05/2025 5:48 AM [facility] ([facility])Specimen (Source)Anatomical Location / LateralityCollection Method / VolumeCollection TimeReceived TimeBlood Venous blood specimen / UnknownVenipuncture / Obyubsd2103/05/2025 5:00 AM EDT 03/05/2025 5:36 AM EDT Narrative Authorizing ProviderResult TypeResult StatusFadi Safi MDLAB BLOOD ORDERABLES Final ResultPerforming OrganizationAddressCity/State/ZIP CodePhone Number [facility]) [address] [place] [address] * Phosphorus (03/05/2025 5:00 AM EDT) Only the most recent of9 resultswithin the time period is included. ComponentValueRef RangeTest MethodAnalysis TimePerformed AtPathologist Signature Phosphorus3.02.5 - 5.0 mg/dL03/05/2025 6:02 AM [facility] ([facility]) Specimen (Source)Anatomical Location / LateralityCollection Method / Volume Collection TimeReceived TimeBloodVenous blood specimen / UnknownVenipuncture / Zxetyjp3003/05/2025 5:00 AM EDT03/05/2025 5:35 AM EDT Narrative Authorizing ProviderResult TypeResult StatusFadi Safi MDLAB BLOOD ORDERABLES Final ResultPerforming OrganizationAddressty/State/ZIP CodePhone Number [facility]) [address] [place] [address] * Magnesium (03/05/2025 5:00 AM EDT) Only the most recent of9 resultswithin the time period is included. ComponentValueRef RangeTest MethodAnalysis TimePerformed AtPathologist Signature Magnesium1.91.9 - 2.7 mg/dL03/05/2025 6:02 AM [facility] ([place]) Specimen (Source)Anatomical Location / LateralityCollection Method / Volume Collection TimeReceived TimeBloodVenous blood specimen / UnknownVenipuncture / Ksxvvzr5503/05/2025 5:00 AM EDT03/05/2025 5:35 AM EDT Narrative Authorizing ProviderResult TypeResult StatusFadi Mary HAMMOND BLOOD ORDERABLES Final ResultPerforming OrganizationAddressCity/State/ZIP CodePhone Number [facility] ([place]) [address] [place] [address] * CTA Heart Coronary W IV Contrast [...] signed: Reji Dick MD. Authorizing ProviderResult TypeResult Alice NAPOLESG CT PROCEDURESFinal Result * Lavender Top (03/04/2025 4:48 AM EDT) Only the most recent of3 resultswithin the time period is included. ComponentValueRef RangeTest MethodAnalysis TimePerformed AtPathologist Signature Extra TubeHold for add-ons.03/04/2025 7:01 AM EDTH[facility] ([place]) Comment:Auto resulted.Specimen (Source)Anatomical Location / Laterality Collection Method / VolumeCollection TimeReceived TimeBloodVenous blood specimen / UnknownVenipuncture / Adixvee7503/04/2025 4:48 AM EDT03/04/2025 5:13 AM EDT Narrative Authorizing ProviderResult TypeResult Alice HAMMOND BLOOD ORDERABLES Final ResultPerforming OrganizationAddressCity/State/ZIP CodePhone Number [facility] [facility] [address] [place] [address] * Light Green Top (03/04/2025 4:48 AM EDT)ComponentValueRef RangeTest Method Analysis TimePerformed AtPathologist SignatureExtra TubeHold for add-ons. 03/04/2025 7:01 AM [facility] ([facility])Comment:Auto resulted.Specimen (Source)Anatomical Location / LateralityCollection Method / VolumeCollection TimeReceived TimeBloodVenous blood specimen / UnknownVenipuncture / Unknown 03/04/2025 4:48 AM EDT03/04/2025 5:13 AM EDT Narrative Authorizing ProviderResult TypeResult Status[facility] BLOOD ORDERABLES Final ResultPerforming OrganizationAddressty/State/ZIP CodePhone Number [facility] ([facility]) [address] [place] [phone] * Anti-Xa (Heparin Level) (03/04/2025 4:41 AM EDT) Only the most recent of5 resultswithin the time period is included. ComponentValueRef RangeTest MethodAnalysis TimePerformed AtPathologist Signature Anti-Xa (Heparin)0.340.3 - 0.7 IU/mL03/04/2025 5:57 AM [facility] ([facility])Comment:Rivaroxaban and Apixaban will interfere with the anti Xa assay used to monitor UFH and LMWH.Specimen (Source)Anatomical Location / Laterality Collection Method / VolumeCollection TimeReceived TimeBloodVenous blood specimen / UnknownVenipuncture / Oslvcfx6603/04/2025 4:41 AM EDT03/04/2025 5:11 AM EDT Narrative Authorizing ProviderResult TypeResult Statusjuan m Kramer [facility] BLOOD ORDERABLES Final ResultPerforming OrganizationAddressCity/State/ZIP CodePhone Number [facility] ([facility]) [address] [place] [address] * ECG 12 lead (03/04/2025 4:06 AM EDT) Only the most recent of3 resultswithin the time period is included. ComponentValueRef RangeTest MethodAnalysis TimePerformed AtPathologist Signature Ventricular Jemm90IXJSU MUSEAtrial Samq34KEZPU MUSEPR Exjjypdp747fmUL MUSEQRS GQXLOSRK538qrJE MUSEQT Zabwggkt291anDB MUSEQTC CALCULATION(BAZETT)492msGE MUSEP Titp88ecvgdbcLD XENUK-Dgmg-17ydcdgeyTC MUSET Wave Lfao829tqvyjsyMI MUSESpecimen (Source)Anatomical Location / LateralityCollection Method / [...] 5:11:38 PM Authorizing ProviderResult TypeResult StatusCarol Carter [facility] ORDERABLESFinal ResultPerforming OrganizationAddressCity/State/ZIP CodePhone Number THALIA NICHOLS * (ABNORMAL) aPTT - baseline (03/03/2025 12:54 PM EDT) Only the most recent of2 resultswithin the time period is included. ComponentValueRef RangeTest MethodAnalysis TimePerformed AtPathologist Signature aPTT41.8(H)25.0 - 35.0 Qbroyru5103/03/2025 1:33 PM [facility] ([facility] Comment:Clinical significance of the APTT is questionable in the presence of heparin.Specimen (Source)Anatomical Location / LateralityCollection Method / VolumeCollection TimeReceived TimeBloodVenous blood specimen / Unknown Venipuncture / Vmxhszy4203/03/2025 12:54 PM EDT03/03/2025 12:58 PM EDT Narrative Authorizing ProviderResult TypeResult StatusCalderon [facility] BLOOD ORDERABLES Final ResultPerforming OrganizationAddressCity/State/ZIP CodePhone Number [facility] [address] [place] [address] * Platelet count (03/03/2025 12:54 PM EDT) Only the most recent of2 resultswithin the time period is included. ComponentValueRef RangeTest MethodAnalysis TimePerformed AtPathologist Signature Odlhfqhkx630822 - 400 10*3/uL03/03/2025 1:18 PM [facility] ([facility] Specimen (Source)Anatomical Location / LateralityCollection Method / Volume Collection TimeReceived TimeBloodVenous blood specimen / UnknownVenipuncture / Bgffdqp4003/03/2025 12:54 PM EDT03/03/2025 1:01 PM EDT Narrative Authorizing ProviderResult TypeResult StatusFadi Mary [facility] BLOOD ORDERABLES Final ResultPerforming OrganizationAddressCity/State/ZIP CodePhone Number [facility]) [address] [place] [address] * TRANSESOPHAGEAL ECHO (BERNARDINO) W/ LIMITED DOPPLER AND COLOR FLOW (03/03/2025 10:09 AM EDT)Anatomical RegionLateralityModalityOtherSpecimen (Source)Anatomical Location / LateralityCollection Method / VolumeCollection TimeReceived Time 03/03/2025 9:24 AM EDT Narrative 03/03/2025 3:46 PM EDT [facility] Heart Station [address] [place] [place] [address] (fax) Transesophageal Echocardiogram-[facility] Name: LINDSAY PINTO Study Date: 03/03/2025 09:24 AM B/P: 108 mmHg/71 mmHg HR: 84 bpm Date of : 1965 Location: [facility] Height: 68 in. Age: 59 year(s) Patient Room: 3174 Weight: 244 lb. Gender: Male Patient Status: InPt BSA: 2.22 m2 Indication: Atrial Fibrillation Examination: BERNARDINO/Limited Doppler/CFI, Agitated Saline Image Quality: Fair Patient Consent: Informed, written consent was obtained for the procedure Exam Details Contrast: I.V. dose of agitated saline Exam Location: A BERNARDINO was performed in the [employer] without complications Anesthesia Pharyngeal anesthesia with viscous [...] to transverse sinus ??Procedure Staff Reading Group: [facility] Referring Physician: JALEN LINDER ??Brine Maker: Susana Johnson BS, RDCS ??Ordering Physician: JOSE MENESES ?? Procedure Note Hugo Rojas MD - 03/03/2025 1 [facility] Heart Station [address] [place] [address] [phone] (fax) Transesophageal Echocardiogram-[facility] Name: LINDSAY PINTO Study Date: 03/03/2025 09:24 AM B/P: 108 mmHg/71 mmHg HR: 84 bpm Date of : 1965 Location: [facility] Height: 68 in. Age: 59 year(s) Patient Room: [facility] Weight: 244 lb. Gender: Male Patient Status: InPt BSA: 2.22 m2 Indication: Atrial Fibrillation Examination: BERNARDINO/Limited Doppler/CFI, Agitated Saline Image Quality: Fair Patient Consent: Informed, written consent was obtained for the procedure Exam Details Contrast: I.V. dose of agitated saline Exam Location: A BERNARDINO was performed in the [employer] without complications Anesthesia Pharyngeal anesthesia with viscous [...] to transverse sinus Procedure Staff Reading Group: [facility] Referring Physician: JALEN LINDER Brine Maker: ZUHAIR Caban, RDCS Ordering Physician: JOSE MENESES Authorizing ProviderResult TypeResult StatusSayeimy Meneses [facility] [place] Final Result * CARDIOVERSION (03/03/2025 [...] form. ??The patient was brought to the laborer salvage and transesophageal echocardiogram was performed under conscious [...] stable during the procedure. Authorizing ProviderResult TypeResult StatusJose Rendonoury [facility] [place] ELECTROPHYSIOLOGY PROCEDURESFinal Result * (ABNORMAL) Digoxin level (03/03/2025 3:46 AM EDT) Only the most recent of3 resultswithin the time period is included. ComponentValueRef RangeTest MethodAnalysis TimePerformed AtPathologist Signature Digoxin Lvl0.6(L)0.7 - 2 ng/mL03/03/2025 4:25 AM [facility] ([facility]) Specimen (Source)Anatomical Location / LateralityCollection Method / Volume Collection TimeReceived TimeBloodVenous blood specimen / UnknownVenipuncture / Piehilp1403/03/2025 3:46 AM EDT03/03/2025 3:57 AM EDT Narrative Authorizing ProviderResult TypeResult StatusFajuan m [facility] BLOOD ORDERABLES Final ResultPerforming OrganizationAddressCity/State/ZIP CodePhone Number [facility] ([facility]) [address] [place] [address] * (ABNORMAL) Urinalysis (03/02/2025 2:48 PM EDT)ComponentValueRef RangeTest MethodAnalysis TimePerformed AtPathologist SignatureColor, UrineYellow Colorless, Yellow, Light-Stxzud1303/02/2025 3:00 PM [facility] ([facility])Clarity, CkdmyVukmnKortu84/02/2025 3:00 PM [facility] ([facility])pH, Urine6.55.0 - 8.0 pH03/02/2025 3:00 PM [facility] ([facility])Leukocytes, GjltdRdptmvkwKsfjegjc93/02/2025 3:00 PM [facility] ([facility])Nitrite, LuotwZwfsfkvdHkerdmtd34/02/2025 3:00 PM [facility] ([facility])Protein, UrineNegativeNegative mg/dL03/02/2025 3:00 PM [facility] ([facility])Glucose, UrineNormalNormal mg/dL03/02/2025 3:00 PM EDT [facility] ([facility])Bilirubin, SzcfwTdusaskxZhodgipy57/02/2025 3:00 PM [facility] ([facility])Specific [place], Urine1.0161.010 - 1.030 03/02/2025 3:00 PM [facility] ([facility])Ketones, UrineNegativeNegative mg/dL03/02/2025 3:00 PM [facility] ([facility])Blood, UrineNegative Euysmpkf53/02/2025 3:00 PM [facility] ([facility])Urobilinogen, Urine >=8.0(A)Normal mg/dL03/02/2025 3:00 PM [facility] ([facility])Specimen (Source)Anatomical Location / LateralityCollection Method / VolumeCollection TimeReceived TimeUrineUrine specimen obtained by clean catch procedure / UnknownNon-blood Collection / Jbbjxps4803/02/2025 2:48 PM EDT03/02/2025 2:52 PM EDT Narrative [facility] ([facility]) - 03/02/2025 3:00 PM EDT Microscopics not performed on urines with negative chemical reactions unless requested on original order. Authorizing ProviderResult TypeResult StatusFajuan m [facility] URINE ORDERABLES Final ResultPerforming OrganizationAddressCity/State/ZIP CodePhone Number [facility] ([facility]) [address] [place] [address] * LIMITED ECHO (TTE) W/ LIMITED DOPPLER, COLOR FLOW AND IMAGING AGENT (03/02/2025 12:33 PM EDT)Anatomical RegionLateralityModalityOtherSpecimen (Source)Anatomical Location / LateralityCollection Method / VolumeCollection TimeReceived Time03/02/2025 12:02 PM EDT Narrative 03/02/2025 3:32 PM EDT 1 1 [facility] Heart Station [address] [place] [address] [phone] (fax) Echocardiogram-[facility] Name: LINDSAY PINTO Study Date: 03/02/2025 12:02 PM B/P: 111 mmHg/69 mmHg HR: 84 bpm Date of : 1965 Location: [facility] Height: 68 in. Age: 59 [...] minimal pericardial effusion. Procedure Staff Reading Group: [facility] Referring Physician: JALEN LINDER ??Brine Maker: ZUHAIR Caban, RDCS ??Ordering Physician: CALDERON KRAMER ?? Procedure Note Hugo Rojas MD - 03/02/2025 1 1 [facility] Heart Station [address] [place] [address] [phone] (fax) Echocardiogram-[facility] Name: LINDSAY PINTO Study Date: 03/02/2025 12:02 PM B/P: 111 mmHg/69 mmHg HR: 84 bpm Date of : 1965 Location: [facility] Height: 68 in. Age: 59 [...] minimal pericardial effusion. Procedure Staff Reading Group: [facility] Referring Physician: JALEN LINDER Brine Maker: ZUHAIR Caban, RDCS Ordering Physician: CALDERON KRAMER Authorizing ProviderResult TypeResult StatusFadi Mary [facility] [place] ECHO PROCEDURESFinal Result * (ABNORMAL) Reticulocyte panel (02/26/2025 11:48 AM EDT)ComponentValueRef Range Test MethodAnalysis TimePerformed AtPathologist SignatureRetic Ct Abs0.0781 0.0250 - 0.1000 10*6/uL02/26/2025 2:07 PM [facility] ([facility])Retic Ct Pct2.79(H)0.50 - 1.80 %02/26/2025 2:07 PM [facility] ([facility]) Immature Reticulocyte Fraction %36.5(H)2 - 16 %02/26/2025 2:07 PM [facility] ([facility])Reticulocyte Viacwtgutz37.028.0 - 36.0 pg02/26/2025 2:07 PM [facility] ([facility])Specimen (Source)Anatomical Location / LateralityCollection Method / VolumeCollection TimeReceived TimeBloodVenous blood specimen / UnknownExisting Catheter / Veybyeq1102/26/2025 11:48 AM EDT 02/26/2025 12:00 PM EDT Narrative Authorizing ProviderResult TypeResult StatusFajuan m [facility] BLOOD ORDERABLES Final ResultPerforming OrganizationAddressCity/State/ZIP CodePhone Number [facility] ([facility]) [address] [place] [address] * (ABNORMAL) Iron and TIBC (02/26/2025 5:13 AM EDT)ComponentValueRef RangeTest MethodAnalysis TimePerformed AtPathologist XkmdxzuenSdwh59(L)50 - 212 ug/dL 02/26/2025 12:38 PM [facility] ([facility])ZHHA683(L)250 - 450 ug/dL 02/26/2025 12:38 PM [facility] ([facility])Iron Saturation9(L)20 - 50 % 02/26/2025 12:38 PM [facility] ([facility])KQWJ163.0155.0 - 355.0 ug/dL 02/26/2025 12:38 PM [facility] ([facility])Specimen (Source)Anatomical Location / LateralityCollection Method / VolumeCollection TimeReceived Time BloodArterial blood specimen / UnknownExisting Catheter / Fgzebpd3602/26/2025 5:13 AM EDT02/26/2025 5:36 AM EDT Narrative Authorizing ProviderResult TypeResult StatusFadi Safi [facility] BLOOD ORDERABLES Final ResultPerforming OrganizationAddressCity/State/ZIP CodePhone Number [facility]) [address] [place] [address] * Folate (02/26/2025 5:13 AM EDT)ComponentValueRef RangeTest MethodAnalysis Time Performed AtPathologist JujwvnaykFoilyx04.666.6 - 1,000 ng/mL02/26/2025 1:05 PM [facility] ([facility])Specimen (Source)Anatomical Location / LateralityCollection Method / VolumeCollection TimeReceived TimeBloodArterial blood specimen / UnknownExisting Catheter / Hvxwnii8502/26/2025 5:13 AM EDT 02/26/2025 5:36 AM EDT Narrative Authorizing ProviderResult TypeResult StatusCalderon Kramer [facility] BLOOD ORDERABLES Final ResultPerforming OrganizationAddressCity/State/ZIP CodePhone Number [facility]) [address] [place] [address] * Ferritin (02/26/2025 5:13 AM EDT)ComponentValueRef RangeTest MethodAnalysis TimePerformed AtPathologist DkrygbeyzGydimpes225.024.0 - 336.0 ng/mL02/26/2025 1:05 PM [facility] ([facility])Specimen (Source)Anatomical Location / LateralityCollection Method / VolumeCollection TimeReceived TimeBloodArterial blood specimen / UnknownExisting Catheter / Wcpftcb8902/26/2025 5:13 AM EDT 02/26/2025 5:36 AM EDT Narrative Authorizing ProviderResult TypeResult StatusCalderon Kramer [facility] BLOOD ORDERABLES Final ResultPerforming OrganizationAddressCity/State/ZIP CodePhone Number [facility]) [address] [place] [address] * (ABNORMAL) Vitamin B12 (02/26/2025 5:13 AM EDT)ComponentValueRef RangeTest MethodAnalysis TimePerformed AtPathologist SignatureVitamin B-121,129(H)180 - 914 pg/mL02/26/2025 1:05 PM [facility] ([facility])Comment: REFERENCE RANGES: 180-914 pg/mL ??Normal 145-179 pg/mL ??Indeterminate <145 pg/mL Deficient Specimen (Source)Anatomical Location / LateralityCollection Method / Volume Collection TimeReceived TimeBloodArterial blood specimen / UnknownExisting Catheter / Xifbhkm9502/26/2025 5:13 AM EDT02/26/2025 5:36 AM EDT Narrative Authorizing ProviderResult TypeResult StatusCalderon [facility] BLOOD ORDERABLES Final ResultPerforming OrganizationAddressCity/State/ZIP CodePhone Number [facility] [address] [place] [address] * Transfuse RBC (02/25/2025 12:11 PM EDT) Narrative Authorizing ProviderResult TypeResult StatusFajuan m ALEMANOOD TRANSFUSION ORDERABLESFinal Result * CTA Abdomen Pelvis [...] the uncomplicated intravenous administration of 100 mL Pdyvdeiki618. 3-D maximum intensity projection reconstructions constructed underconcurrent [...] signed: Daniel Diaz MD. Authorizing ProviderResult TypeResult StatusMunpat Linder MDKodi CT PROCEDURES Final Result * (ABNORMAL) Hemoglobin and hematocrit, blood (02/25/2025 9:04 AM EDT)Component ValueRef RangeTest MethodAnalysis TimePerformed AtPathologist Signature Hemoglobin7.9(L)13.0 - 17.0 g/dL02/25/2025 9:20 AM [facility] ([facility])Ahabdkfpuq78.8(L)39.0 - 50.0 %02/25/2025 9:20 AM [facility] ([facility])Specimen (Source)Anatomical Location / LateralityCollection Method / VolumeCollection TimeReceived TimeBloodArterial blood specimen / Unknown Existing Catheter / Leoxgra1802/25/2025 9:04 AM EDT02/25/2025 9:12 AM EDT Narrative Authorizing ProviderResult TypeResult StatusFajuan m [facility] BLOOD ORDERABLES Final ResultPerforming OrganizationAddressCity/State/ZIP CodePhone Number [facility] [address] [place] [phone] from Last [address] [place] [address] Advance Directives * Full Code (Latest Code Status on File) Date ActivatedDate InactivatedComments02/18/2025 6:59 PM03/05/2025 7:58 PM Care Teams Team MemberRelationshipSpecialtyStart DateEnd Date Jalen Linder DO [address] [place] [address] PCP - Fqaucjh08/3/22
--- OUTSIDE RECORDS SUMMARY | 2025-05-28 08:17 | XMS_ITS | Encounter Summary ---
Author Organization [facility] Address [address] [place] [address] Care Team Providers Care Psychiatric Lpn Name Role Phone Jalen Echeverria DO Primary Care Provider [phone] Encounter Details DateTypeDepartmentCare Team (Latest Contact Info)Zsqodzsijqx80/21/2025Hospital Encounter [facility] Lab [address] [place] [address] Prabhu Chavez MD [address] [place] [address] Social History Tobacco UseTypesPacks/DayYears UsedDateSmoking Tobacco: NeverSmokeless [...] at all 02/18/2025PHQ-2AnswerDate RecordedPatient Health Questionnaire-2 Score0 09/18/2025UT Safety & EnvironmentAnswerDate RecordedFear of Current or [...] were you homeless or living in a [place] (including now)?No02/18/2025Hunger Vital SignAnswerDate Recorded Within the past 12 months, you worried that your food would run out before you got the money to buymore.Never true02/18/2025Ran Out of Food in the Last YearNot on file02/18/2025Sex and Gender InformationValueDate RecordedSex Assigned at KvwmvWcvu79/22/2025 9:32 AM EDTLegal NhpUkut8412/27/2021 10:20 PM EDTGender WqyupfexFvtv54/22/2025 9:32 AM EDTSexual OrientationDon't know02/19/2025 10:20 AM EDTdocumented as of this encounter Plan of Treatment DateTypeDepartmentCare Team (Latest Contact Info)Ubvlgqtqost68/18/2025 3:20 PM ESTOffice Visit [facility] [address] [place] [address] Mary Rosales, BRIM POUNCER MACHINE OPERATOR [address] [place] [address] documented as of this encounter Visit Diagnoses Diagnosis A-fib (CMS/HCC)- Primary Atrial fibrillation documented in this encounter Admitting Diagnoses Diagnosis A-fib (CMS/HCC) Atrial fibrillation documented in this encounter Care Teams Team MemberRelationshipSpecialtyStart DateEnd Date Juwan DO Jalen [address] [place] [address] PCP - Hftstjl40/3/22documented as of this encounter
--- OUTSIDE RECORDS SUMMARY | 2025-05-28 08:17 | XMS_ITS | Encounter Summary ---
Author Organization [facility] Address [address] [place] [address] Care Team Providers Care Music Historian Name Role Phone Jalen Echeverria DO Primary Care Provider [phone] Encounter Details DateTypeDepartmentCare Team (Latest Contact Info)Fmkhqoapswa02/05/2025Telephone [facility] [address] [place] [address] Amber Garcia MA Social History Tobacco UseTypesPacks/DayYears UsedDateSmoking Tobacco: NeverSmokeless Tobacco: NeverAlcohol UseStandard Drinks/WeekCommentsYes0 (1 standard drink = 0.6 oz pure alcohol)occasionalAHC UtilitiesAnswerDate RecordedIn the past 12 months has the electric, gas, oil, or water [employer] threatened to shut off services in your [...] file02/18/2025Sex and Gender InformationValueDate RecordedSex Assigned at SfvznFqwm69/22/2025 9:32 AM EDTLegal OwoUnqs9012/27/2021 10:20 PM EDTGender TkmwzaenWkcm80/22/2025 9:32 AM EDTSexual OrientationDon't know02/19/2025 10:20 AM EDTdocumented as of this encounter Plan of Treatment DateTypeDepartmentCare Team (Latest Contact Info)Cwrobznnftc01/18/2025 3:20 PM ESTOffice Visit [facility] at [facility] [address] [place] [address] Mary Rosales, HARINI [address] [place] [address] documented as of this encounter Visit Diagnoses Not on filedocumented in this encounter Care Teams Team MemberRelationshipSpecialtyStart DateEnd Jalen Monreal DO [address] [place] [address] [facility] - Bnibcrc01/3/22documented as of this encounter
--- OUTSIDE RECORDS SUMMARY | 2025-05-28 08:17 | XMS_ITS | Encounter Summary ---
Author Organization [facility] Address [address] [place] [address] Care Team Providers Care Swing Tender Name Role Phone Jalen Echeverria DO Primary Care Provider [phone] Encounter Details DateTypeDepartmentCare Team (Latest Contact Info)Ckinfyzesyw50/21/2025Telephone [facility] [address] [place] [address] Iveth Henao MA Social History Tobacco UseTypesPacks/DayYears UsedDateSmoking Tobacco: NeverSmokeless Tobacco: NeverAlcohol UseStandard Drinks/WeekCommentsYes0 (1 standard drink = 0.6 oz pure alcohol)occasionalAHC UtilitiesAnswerDate RecordedIn the past 12 months has the electric, gas, oil, or water [employer] threatened to shut off services in your [...] homeless or living in a half-way (including now)?No02/18/2025Hunger Vital SignAnswerDate Recorded Within the past 12 months, you worried that your food would run out before you got the money to buymore.Never true02/18/2025Ran Out of Food in the Last YearNot on file02/18/2025Sex and Gender InformationValueDate RecordedSex Assigned at AiugzBfnd08/22/2025 9:32 AM EDTLegal UanWtyl7412/27/2021 10:20 PM EDTGender FkyredaoTmrl10/22/2025 9:32 AM EDTSexual OrientationDon't know02/19/2025 10:20 AM EDTdocumented as of this encounter Miscellaneous Notes * Telephone Encounter - Iveth Henao MA - 05/24/2025 3:35 PM EST Sent to [facility] sent to [facility] in [place]. Patient advised * Telephone Encounter - Mary Rosales CNP - 05/24/2025 10:36 AM EST Can we see if his insurance would cover jardiance 10mg daily instead? * Telephone Encounter - Mary Rosales CNP - 05/21/2025 11:59 PM EST Does he qualify for patient assistance? Does he not qualify for the co-pay card for commercial insurance? * Telephone Encounter - Iveth Henao MA - 05/21/2025 10:45 AM EST Patient stopped in today. Patient states he is unable to afford the Farxiga. Please advise documented in this encounter Plan of Treatment DateTypeDepartmentCare Team (Latest Contact Info)Tvmrcdmejcm89/18/2025 3:20 PM ESTOffice Visit [facility] at [facility] [address] [place] [address] Mary Rosales CNP [address] [place] [address] documented as of this encounter Visit Diagnoses Not on filedocumented in this encounter Care Teams Team MemberRelationshipSpecialtyStart DateEnd Date Jalen Echeverria DO [address] [place] [address] PCP - Lubdxwj33/3/22documented as of this encounter
--- OUTSIDE RECORDS SUMMARY | 2025-05-28 08:17 | XMS_ITS | Encounter Summary ---
Author Organization [facility] Address [address] [place] [address] Care Team Providers Care Cartography Supervisor Name Role Phone Jalen Echeverria DO Primary Care Provider [phone] Encounter Details DateTypeDepartmentCare Team (Latest Contact Info)Anxfksgjuhl06/25/2025Telephone [facility] [address] [place] [address] Amber Garcia MA Social History Tobacco UseTypesPacks/DayYears UsedDateSmoking Tobacco: NeverSmokeless Tobacco: NeverAlcohol UseStandard Drinks/WeekCommentsYes0 (1 standard drink = 0.6 oz pure alcohol)occasionalAHC UtilitiesAnswerDate RecordedIn the past 12 months has the electric, gas, oil, or water [employer] threatened to shut off services in your [...] were you homeless or living in a care home (including now)?No02/18/2025Hunger Vital SignAnswerDate Recorded Within the past 12 months, you worried that your food would run out before you got the money to buymore.Never true02/18/2025Ran Out of Food in the Last YearNot on file02/18/2025Sex and Gender InformationValueDate RecordedSex Assigned at UrddsZgpe90/22/2025 9:32 AM EDTLegal EaxJgrf6112/27/2021 10:20 PM EDTGender NagotkunYwih16/22/2025 9:32 AM EDTSexual OrientationDon't know02/19/2025 10:20 AM EDTdocumented as of this encounter Plan of Treatment DateTypeDepartmentCare Team (Latest Contact Info)Pvwjwprvanz19/18/2025 3:20 PM ESTOffice Visit [facility] [address] [place] [address] Mary Rosales, HARINI [address] [place] [address] documented as of this encounter Visit Diagnoses Not on filedocumented in this encounter Care Teams Team MemberRelationshipSpecialtyStart DateEnd Jalen Monreal DO [address] [place] [address] [facility] - Ahtyljn56/3/22documented as of this encounter
--- OUTSIDE RECORDS SUMMARY | 2025-05-28 08:17 | XMS_ITS | Encounter Summary ---
Author Organization [facility] Address [address] [place] [address] Care Team Providers Care Scientific Associate Name Role Phone Jalen Echeverria DO Primary Care Provider [phone] Encounter Details DateTypeDepartmentCare Team (Latest Contact Info)Lzptxzhywry32/24/2025Orders Only [facility] at [facility] [address] [place] [address] Iveth Henao MA Acute on chronic systolic heart failure (CMS/HCC) (Primary Dx) Social History Tobacco UseTypesPacks/DayYears UsedDateSmoking Tobacco: NeverSmokeless Tobacco: NeverAlcohol UseStandard Drinks/WeekCommentsYes0 (1 standard drink = 0.6 oz pure alcohol)occasionalAHC UtilitiesAnswerDate RecordedIn the past 12 months has the electric, gas, oil, or water [employer] threatened to shut off services in your [...] file02/18/2025Sex and Gender InformationValueDate RecordedSex Assigned at ZnezyMfeq01/22/2025 9:32 AM EDTLegal FulVmis3612/27/2021 10:20 PM EDTGender EesxvrtaXfmi28/22/2025 9:32 AM EDTSexual OrientationDon't know02/19/2025 10:20 AM EDTdocumented as of this encounter Plan of Treatment DateTypeDepartmentCare Team (Latest Contact Info)Angbkdpyvlu65/18/2025 3:20 PM ESTOffice Visit [facility] at [facility] [address] [place] [address] Mary Rosales, TECHNOLOGIST INFECTIOUS DISEASE [address] [place] [address] documented as of this encounter Visit Diagnoses Diagnosis Acute on chronic systolic heart failure (CMS/HCC)- Primary Acute on chronic systolic heart failure documented in this encounter Care Teams Team MemberRelationshipSpecialtyStart DateEnd Date Jalen Echeverria DO [address] [place] [address] PCP - Grbpset42/3/22documented as of this encounter
--- OUTSIDE RECORDS SUMMARY | 2025-05-28 08:17 | XMS_ITS | Clinical Summary ---
Author Organization [employer] [facility] [employer] Address [id number] [address] [place] [address] Care Team Providers Care Energy Economist Name Role Phone Jalen Echeverria DO Primary Care Provider [phone] Social History Tobacco UseTypesPacks/DayYears UsedDateSmoking Tobacco: Never AssessedChildcare AnswerDate VnyliygfSpcogvhlwMfzxsmr13/12/2019EmploymentAnswerDate Recorded CdqrcpyorjCimuwjj60/12/2019Purpose - LifeAnswerDate RecordedPurpose and direction in ayvxRwnsgvu37/11/2021Sex and Gender InformationValueDate Recorded Sex Assigned at BirthNot on fileLegal ZaoGhhh5302/03/2015 11:40 AM EDTGender IdentityNot on fileSexual OrientationNot on file Plan of Treatment Not on file Medical Devices Not on file Insurance Care Teams Team MemberRelationshipSpecialtyStart DateEnd Date Jalen Echeverria DO PCP - GeneralFamily Dmgjispg83/18/19
[2025-05-28 08:34] LABS: Hematocrit 36.5 % (42.0-54.0); Hemoglobin 11.6 g/dL (14.0-18.0); Immature Granulocytes Abs Auto 0.01 10^3/uL (0.00-0.03); Immature Granulocytes Pct Auto 0.2 % (0.0-0.5); Lymphocytes Absolute Auto 1.3 10^3/uL (1.2-3.8); Mean Corpuscular HGB Conc 31.8 g/dL (29.9-35.2); Mean Corpuscular Hemoglobin 30.1 pg (25.9-34.0); Mean Corpuscular Volume 94.8 fL (80.0-94.0); Platelet Count 189 10^3/uL (150-450); Red Blood Count 3.85 10^6/uL (4.70-6.10); White Blood Count 4.6 10^3/uL (4.0-11.0)
[2025-05-28 09:22] LABS: Alanine Aminotransferase 22 U/L (16-63); Albumin Globulin Ratio 1.2; Albumin Level 3.5 g/dL (3.4-5.0); Alkaline Phosphatase 73 U/L (46-116); Anion Gap 11.0; Aspartate Amino Transferase 18 U/L (15-37); Blood Urea Nitrogen 20.0 mg/dL (7.0-18.0); Calcium 8.8 mg/dL (8.5-10.1); Carbon Dioxide 29.8 mmol/L (21.0-32.0); Chloride 107 mmol/L (98-107); Cholesterol 141 mg/dL (<=200); Estimated GFR (African America >60 (>=60 mL/min/1.73m^2); Estimated GFR (Non-African Ame >60 (>=60 mL/min/1.73m^2); Globulin 3.0 g/dL; Glucose 83 mg/dL (74-106); HDL Cholesterol 54 mg/dL (40-60); Potassium 3.8 mmol/L (3.5-5.1); Sodium 144 mmol/L (136-145); Total Protein 6.5 g/dL (6.4-8.2); Triglycerides 57 mg/dL (<=150); VLDL CHOLESTEROL 11.4 mg/dL
== END 2025-05-28 08:11 | disposition home or self-care (01) ==
LOC: LAB 08:13
PROVIDERS: Family Provider Internal Medicine Interventional Cardiology; PCP Family Medicine; Visit Provider Family Medicine
DX: Z00.00 Encounter for general adult medical examination without abnormal findings (principal); I10 Essential (primary) hypertension; I48.91 Unspecified atrial fibrillation; R33.9 Retention of urine, unspecified; K59.04 Chronic idiopathic constipation; R55 Syncope and collapse; Z12.5 Encounter for screening for malignant neoplasm of prostate
CPT/HCPCS: 36415; 80053; 80061; 85025; G0103

== ENCOUNTER 2025-06-07 15:11 | Outpatient (OUT) | payer OTHER, SELFPAY ==
--- OUTSIDE RECORDS SUMMARY | 2025-06-07 15:16 | XMS_ITS | CCD ---
Author Organization [facility] Care Team Providers Care Creative Technologist Name Role Phone ANIBAL, DR KINGSLEY Mariee [...] Unavailable HOUSE, DO LAUREANO Manuel Attending Unavailable PIRKL, SHEELA Referring Unavailable FEROZSARAH Referring Unavailable CORCORAN, IMELDA CHUL Referring Unavailable SAFI, RUTH Referring Unavailable PIRKL, SHEELA Referring Unavailable CORCORAN, IMELDA CHUL Referring Unavailable SAFI, RUTH Referring Unavailable SAFI, RUTH Referring Unavailable SAFI, RUTH Referring Unavailable SAFI, RUTH Referring Unavailable EDNA MAURICE Referring Unavailable NAZZALCATARINA Referring Unavailable CE POZO Attending Unavailable ELTANIKOLASY, JOE Attending Unavailable IZZY HILL Attending Unavail able HUMBLE BURGESS Attending Unavailable SAFI, RUTH Referring Unavailable KAUSHAL REID Attending Unavailable SIMBA STANTON Referring Unavailable SAFI, RUTH Admitting Unavailable SAFI, RUTH Attending Unavailable ALMASJOSE Alejandra Referring Unavailable KENNEYKARINA Uribe Referring Unavailable Problems Active Problems Problem ClassificationProblemDateDocumented DateEpisodic/ChronicAcute and unspecified renal failure (2 sources)Acute kidney failure, unspecified; Translations: [Acute kidney failure, unspecified]Onset: 96-04-6904QhlbbduxPuaqomz dysrhythmias (5 sources)Unspecified atrial fibrillation; Translations: [Paroxysmal atrial fibrillation]Onset: 81-98-8883QwitcqbCepapnnmog heart failure; nonhypertensive (4 sources)Acute systolic (congestive) heart failure; Translations: [Chronic systolic (congestive) heart failure]Onset: 36-92-0645XwjbvbiDsjyypyo atherosclerosis and other heart disease (4 sources)Atherosclerotic heart disease of [place] coronary artery without angina pectoris; Translations: [Unstable angina]Onset: 19-55-8607Xthmhxb Deficiency and other anemia (2 sources)Iron deficiency anemia secondary to blood loss (chronic); Translations: [Iron deficiency anemia secondary to blood loss (chronic)]Onset: 84-04-5708BauehxuKnkyegzuvk and other anemia (2 sources)Anemia, unspecified; Translations: [Anemia, unspecified]Onset: 93-46-9302AjqnhckrUzyjndkdp hypertension (1 source)Essential (primary) hypertension; Translations: [Essential (primary) hypertension]Onset: 58-35-6357PulrelwHjodkrcqcsiuo symptoms and ill-defined conditions (3 sources)Retention of urine, unspecified; Translations: [Gross hematuria] Onset: 66-70-3388QibqkjfcGqxiqfbt; including migraine (1 source)Headache; including migraine; Translations: [HEADACHE UNSPECIFIED] Onset: 06-99-8396Ycthkeuyoiv of prostate (2 sources)Benign prostatic hyperplasia without lower urinary tract symptoms; Translations: [Benign prostatic hyperplasia without lower urinary tract symptoms]Onset: 18-23-5333YgvpeezMswbylthshuv with complications and secondary hypertension (2 sources)Hypertensive heart disease with heart failure; Translations: [Hypertensive heart disease with heartfailure]Onset: 24-27-7718SfrfjpwHnaff aftercare (2 sources)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; Translations: [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]Onset: 34-55-0280WdloxkflYxvuq and ill-defined heart disease (2 sources)Cardiomegaly; Translations: [Cardiomegaly]Onset: 48-78-1519Uzzfgdq Other circulatory disease (2 sources)Orthostatic hypotension; Translations: [Orthostatic hypotension] Onset: 73-89-2251YjuwgeegSlozu diseases of kidney and ureters (2 sources)Unspecified hydronephrosis; Translations: [Unspecified hydronephrosis]Onset: 97-31-9524FfeclthrZazdz gastrointestinal disorders (1 source)Chronic idiopathic constipation; Translations: [Chronic idiopathic constipation]Onset: 17-77-6301QllfsxdEbfmk gastrointestinal disorders (2 sources)Bariatric surgery status; Translations: [Bariatric surgery status] Onset: 74-24-8929XbctjehhYlzqyvczrix injury; contusion (2 sources)Contusion of abdominal wall, subsequent encounter; Translations: [Contusion of abdominal wall, subsequent encounter]Onset: 53-49-9904Bqypapvg Syncope (3 sources)Syncope and collapse; Translations: [Syncope and collapse]Onset: 43-53-6186Jkppdync Past or Other Problems Problem ClassificationProblemDateDocumented DateEpisodic/ChronicOther aftercare (1 source)Other certified professional controller (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) drug therapy; Translations: [OTH SENIOR LIVING CURRENT DRUG THERAPY]Onset: 46-55-2026HaptmbxwOxegc nervous system disorders (4 sources)Pruitt's palsy; 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]Onset: 96-83-6894Degfbieo Other skin disorders (3 sources)Localized swelling, mass and lump, head; Translations: [LOCALIZED SWELLING MASS AND LUMP HEAD]Onset: 78-43-0869JdjmibutSsojvoml codes; unclassified (2 sources)Edema, unspecified; Translations: [Edema, unspecified]Onset: 65-91-5098Murydste Results Test NameValueInterpretationReference RangeFacilityOrders Onlyon 05-07-2025 Orders OnlyNormalUniversOhio State University Wexner Medical CenterResults Follow-Upon 48-55-3475Nbpyroc Follow-UpNormalUniversOhio State University Wexner Medical CenterOrders Only on 49-16-6976Gdpqzg OnlyNormalUniversOhio State University Wexner Medical Center36on 03-24-2025 36I think we need to extend his leave at least until his follow-up ECHO. Can we make sure he has an ECHO with a visit following in May? [facility]36on 59-83-957185Q thought cardiac rehab wanted clearance from scott?[facility]36Pt was seen by scott today, he needs ablation, do you want to extend sick leave? Ablations are booking out to Jul. Also cardiac rehab wants to know if he can start.[facility] HospitalFollow-Upon 03-23-2025 Follow-UpNormalUniversity of [facility]oven[facility] Health LevellandTelephoneon 03-23-2025 TelephoneNormalUniversity of Covenant Health LevellandFoow-Upon 03-22-2025 Follow-UpNormalUniversity of [facility]oven[facility] Health LevellandOrders Onlyon 48-52-5903Moqkhq OnlyNormalUniversity of Houston Methodist Baytown HospitalUpon 79-53-8935Blgeow-Up [facility]36on 49-75-897724Vcc, extend until he see's Scott. When I saw him, he told me he couldn't walk the grocery store 2 days in a row without feeling fatigued and he works at [employer].[facility]36on 10-91-461283ED INFORMED HE STATES HE WILL BE IN 03/12/25 IN THE MORNINGNormalUniversity [facility]36NormalUniversOhio State University Wexner Medical CenterDocumentationon 03-11-2025 DocumentationNormalUniversbarnesville hospital of [facility] Health LevellandOutside Recordson 43-16-7560Xoamhvi [id number]#1.00OTGTIFF [facility] Medical CenterOutside Records [id number]#1.00OTGTIFFLouis Stokes [facility] Outside [id number]#1.00OTGTIFFNoLake County Memorial Hospital - WestTelephoneon 71-69-9720ZgsdrcahwOmpjrlMokrxggldn of [facility] Lkvnsb42ph *Stop aspirin *Have lab work done in 2 weeksNormalUniSt. Rita's Hospital36on 63-55-598663FyyjcuPctitptogw of [facility] CenterOutside Recordson 81-98-5352Bzdbxej [id number]#1.00OTGTIFF [facility] Medical CenterTelephoneon 33-03-7693TyuvvuqzmSvwxhaCpoepwliqjSt. [facility] Hospital30on 99-51-770856Pfw patient is Moderately Stable - Low risk of patient condition declining or worsening The patient's goals for the shift include Comfort and rest The clinical goals for the shift include VSS and safetyNoFirelands Regional Medical Center South CampusCBVidant Pungo Hospital 76-87-2720Lvmwhhrshxj distribution width (RBC) [Ratio]16.3 %High11.5-15.0UnUniversity Hospitals Samaritan Medical CenterComment on above: Performed By: #### [id number] ####[facility] ([facility])[address] [place], [place] [address]CNZFOLJUKYF MEAN CORPUSCULAR HEMOGLOBIN CONCENTRATION (G/DL) BY ZHGDVBSTT85.5 g/bOSoscpu38.0-35.0UnUniversity Hospitals Samaritan Medical CenterComment on above:Performed By: #### [id number] ####[facility] ([facility])[address] [place], [place] [address]Dvwszwlggg (Bld) [Volume fraction]24.2 %Low39.0-50.0 [facility] HospitalComment on above:Performed By: #### [id number] ####[facility] ([facility])[address] [place], [place] [address]Kjuizvgupi (Bld) [Mass/Vol]8.1 g/dLLow13.0-17.0UnUniversity Hospitals Samaritan Medical CenterComment on above:Performed By: #### [id number] ####[facility] ([facility])[address] [place], [place] [address]NUQ (RBC) [Entitic mass]30.1 jnSgejta36.0-33.0UnUniversity Hospitals Samaritan Medical CenterComment on above:Performed By: #### [id number] ####[facility] ([facility])[address] [place] [address]LOP (RBC) [Entitic vol] 90.0 fPGnhiyj24.0-98.0UnUniversity Hospitals Samaritan Medical CenterComment on above: Performed By: #### [id number] ####[facility] ([facility])[address] [address]OQYRMOEHT (10*3/UL) IN BLOOD AUTOMATED [id number] 10*3/uLNormal 150-400UnUniversity Hospitals Samaritan Medical CenterComment on above:Performed By: #### [id number] ####[facility] ([facility])[address] [place] [address]JZU (Bld) [#/Vol]2.69 10*6/uLLow4.20-5.70UnUniversity Hospitals Samaritan Medical CenterComment on above:Performed By: #### [id number] ####[facility] ([facility])[address] [place] [address]VFZ (Bld) [#/Vol]7.45 10*3/uLNormal4.00-10.60UnUniversity Hospitals Samaritan Medical CenterComment on above:Performed By: #### [id number] ####[facility] ([facility])[address] [place] [address]XVZYVCEGDOVBB METABOLIC PANELon 41-54-4729Llzqbkx [Mass/Vol]3.0 g/dLLow3.5-5.7UnUniversity Hospitals Samaritan Medical CenterComment on above:Performed By: #### [id number] ####[facility] ([facility])[address] [place], [place] [address]UCE [Catalytic activity/Vol]60 U/L Pmhmyd21-359VockdedkqrUniversity Hospitals Samaritan Medical CenterComment on above:Performed By: #### [id number] ####[facility] ([facility])[address] [place], [place] [address]CRX [Catalytic activity/Vol]15 U/LNormal7-52UnUniversity Hospitals Samaritan Medical Center Comment on above:Performed By: #### [id number] ####[facility] ([facility])[address] [place], [place] [address]Aualm gap [Moles/Vol]9 mmol/LNormal7-20UnUniversity Hospitals Samaritan Medical CenterComment on above:Performed By: #### [id number] ####[facility] ([facility])[address] [place], [place] [address]HKQ [Catalytic activity/Vol]16 U/HXdnjti73-25RokidshbqqUniversity Hospitals Samaritan Medical CenterComment on above:Performed By: #### [id number] ####[facility] ([facility])[address] [place], [place] [address]Zknbzowzj [Mass/Vol]3.8 mg/dLHigh0.3-1.0UnUniversity Hospitals Samaritan Medical CenterComment on above:Performed By: #### [id number] ####[facility] ([facility])[address] [place], [place] [address]Ogespjt [Mass/Vol]8.1 mg/dLLow8.6-10.3 [facility] HospitalComment on above:Performed By: #### [id number] ####[facility] ([facility])[address] [place], [place] [address]Iapwtltc [Moles/Vol]103 mmol/MQyuuiz95-645UhpoveszyuUniversity Hospitals Samaritan Medical CenterComment on above:Performed By: #### [id number] ####[facility] ([facility])[address] [place], [place] [address]BX4 [Moles/Vol]24 mmol/PLpaonv97-98GjgwyfnpfwUniversity Hospitals Samaritan Medical CenterComment on above:Performed By: #### [id number] ####[facility] ([facility])[address] [place], [place] [address]Zlmsuaeqlz [Mass/Vol]0.73 mg/dLNormal 0.70-1.30UnUniversity Hospitals Samaritan Medical CenterComment on above:Performed By: #### [id number] ####[facility] ([facility])[address] [place], [place] [address]CTBULTTOYE FILTRATION RATE ML/MIN/1.73 SQ M.CTMQYWVGD906.5 mL/min/1.73m*2Normal>60.0 [facility] HospitalComment on above:Result Comment: [facility]???s estimated glomerular filtration rate (eG FR) [...] group of individuals. Performed By: #### [id number] ####[facility] ([facility])[address] [place], [place] [address]Yisobba [Mass/Vol]85 mg/vPRxekcg14-198GmmjrvszrvUniversity Hospitals Samaritan Medical CenterComment on above:Performed By: #### [id number] ####[facility] ([facility])[address] [place], [place] [address]Zaseuuwul [Moles/Vol]3.9 mmol/LNormal 3.5-5.1UnUniversity Hospitals Samaritan Medical CenterComment on above:Performed By: #### [id number] ####[facility] ([facility])[address] [place], [place] [address]Ebuxinu [Mass/Vol]5.2 g/dLLow6.0-8.3UnUniversity Hospitals Samaritan Medical CenterComment on above: Performed By: #### [id number] ####[facility] ([facility])[address] [place], [place] [address]Urgwjs [Moles/Vol]132 mmol/KBye537-022QcrckykwceUniversity Hospitals Samaritan Medical CenterComment on above:Performed By: #### [id number] ####[facility] ([facility])[address] [place], [place] [address]Utza nitrogen [Mass/Vol]13 mg/dLNormal 7-25UnUniversity Hospitals Samaritan Medical CenterComment on above:Performed By: #### [id number] ####[facility] ([facility])[address] [place], [place] [address]JIRA NITROGEN/CREATININE (MASS RATIO) IN SER/PLAS17.8NormalUniversOhio State University Wexner Medical CenterComment on above:Performed By: #### [id number] ####[facility] ([facility])[address] [place] [address]FQao 42-32-9315EPXsbhrpOlqdxxdcno of [facility] Medical CenterMAGNESIUMon 04-28-4950Zwiztwkzt [Mass/Vol]1.9 mg/dLNormal 1.9-2.7UnUniversity Hospitals Samaritan Medical CenterComment on above:Performed By: #### [id number] ####[facility] ([facility])[address] [place] [address] PHOSPHORUSon 90-55-7764Ugsffzpuu [Mass/Vol]3.0 mg/dLNormal2.5-5.0UnUniversity Hospitals Samaritan Medical CenterComment on above:Performed By: #### [id number] ####[facility] ([facility])[address] [place], [place] [address]xk 78-73-[address]Wajnfj [facility]30The patient is Moderately Stable - Low risk of patient condition declining or worsening The patient's goals for the shift include comfort The clinical goals for the shift include VSS, safetyNormalUniSt. Rita's HospitalANTI-XA (HEPARIN LEVEL)on 62-06-2507POUESRF UNFRACTIONATED (U/ML) IN PPP BY CHROMOGENIC METHOD0.34 IU/mLNormal0.3-0.7UnUniversity Hospitals Samaritan Medical CenterComment on above:Result Comment: Rivaroxaban and Apixaban will interfere with the anti Xa assay used to monitor UFH and LMWH.Performed By: #### [id number] ####[facility] ([facility])[address] [place], [place] [address]ETPWPAR UNFRACTIONATED (U/ML) IN PPP BY CHROMOGENIC METHOD0.30 IU/mLNormal0.3-0.7 [facility] HospitalComment on above:Result Comment: Rivaroxaban and Apixaban will interfere with the anti Xa assay used to monitor UFH and LMWH. Performed By: #### [id number] ####[facility] ([facility])[address] [place] [address]THSep 56-57-2948Pdtgbapufgs distribution width (RBC) [Ratio] 16.3 %High11.5-15.0UnUniversity Hospitals Samaritan Medical CenterComment on above:Performed By: #### [id number] ####[facility] ([facility])[address] [place] [address]DHHFGXKYJPR MEAN CORPUSCULAR HEMOGLOBIN CONCENTRATION (G/DL) BY AUTOMATED 34.1 g/oMGgwpuq97.0-35.0UnUniversity Hospitals Samaritan Medical CenterComment on above: Performed By: #### [id number] ####[facility] ([facility])[address] [place] [address]Qqlimscbxk (Bld) [Volume fraction]22.6 %Low39.0-50.0 [facility] HospitalComment on above:Performed By: #### [id number] ####[facility] ([facility])[address] [place] [address]Pnavoolvwx (Bld) [Mass/Vol]7.7 g/dLLow13.0-17.0UnUniversity Hospitals Samaritan Medical CenterComment on above:Performed By: #### [id number] ####[facility] ([facility])[address] [place] [address]YLD (RBC) [Entitic mass]30.6 wuNoeyos35.0-33.0UnUniversity Hospitals Samaritan Medical CenterComment on above:Performed By: #### [id number] ####[facility] ([facility])[address] [place] [address]MZS (RBC) [Entitic vol] 89.7 aCYkazxc40.0-98.0UnUniversity Hospitals Samaritan Medical CenterComment on above: Performed By: #### [id number] ####[facility] ([facility])[address] [place] [address]XMCXPTPUX (10*3/UL) IN BLOOD AUTOMATED [id number] 10*3/uLNormal 150-400UnUniversity Hospitals Samaritan Medical CenterComment on above:Performed By: #### [id number] ####[facility] ([facility])[address] [place], [place] [address]WSE (Bld) [#/Vol]2.52 10*6/uLLow4.20-5.70UnUniversity Hospitals Samaritan Medical CenterComment on above:Performed By: #### [id number] ####[facility] ([facility])[address] [place], [place] [address]KUC (Bld) [#/Vol]5.41 10*3/uLNormal4.00-10.60UnUniversity Hospitals Samaritan Medical CenterComment on above:Performed By: #### [id number] ####[facility] ([facility])[address] [place], [place] [address]ZCTLQWZIMSQMI METABOLIC PANELon 32-99-5865Cjhjrix [Mass/Vol]2.8 g/dLLow3.5-5.7UnUniversity Hospitals Samaritan Medical CenterComment on above:Performed By: #### [id number] ####[facility] ([facility])[address] [place], [place] [address]DGF [Catalytic activity/Vol]55 U/L Qpvosn10-763IluwiwdgugUniversity Hospitals Samaritan Medical CenterComment on above:Performed By: #### [id number] ####[facility] ([facility])[address] [place], [place] [address]JMF [Catalytic activity/Vol]17 U/LNormal7-52UnUniversity Hospitals [facility]ar[facility] Medical Center Comment on above:Performed By: #### [id number] ####[facility] ([facility])[address] [place], [place] [address]Blcvp gap [Moles/Vol]8 mmol/LNormal7-20UnUniversity Hospitals Samaritan Medical CenterComment on above:Performed By: #### [id number] ####[facility] ([facility])[address] [place], [place] [address]MFV [Catalytic activity/Vol]17 U/WJpgffu01-01YgjhgfjsfeUniversity Hospitals Samaritan Medical CenterComment on above:Performed By: #### [id number] ####[facility] ([facility])[address] [place], [place] [address]Cilnbfywa [Mass/Vol]3.7 mg/dLHigh0.3-1.0UnUniversity Hospitals Samaritan Medical CenterComment on above:Performed By: #### [id number] ####[facility] ([facility])[address] [place], [place] [address]Xekpaby [Mass/Vol]7.7 mg/dLLow8.6-10.3 [facility] HospitalComment on above:Performed By: #### [id number] ####[facility] ([facility])[address] [place], [place] [address]Grxoshre [Moles/Vol]103 mmol/CJsruja36-429YdjrdzzbxkUniversity Hospitals Samaritan Medical CenterComment on above:Performed By: #### [id number] ####[facility] ([facility])[address] [place], [place] [address]LR1 [Moles/Vol]25 mmol/FBxwfbf40-88BtvvqosaqvUniversity Hospitals Samaritan Medical CenterComment on above:Performed By: #### [id number] ####[facility] ([facility])[address] [place], [place] [address]Qmgkvosjxb [Mass/Vol]0.66 mg/dLLow 0.70-1.30UnUniversity Hospitals Samaritan Medical CenterComment on above:Performed By: #### [id number] ####[facility] ([facility])[address] [place], [place] [address]MBSGPNFLHO FILTRATION RATE ML/MIN/1.73 SQ M.HMJBZTGLU224.7 mL/min/1.73m*2Normal>60.0 [facility] HospitalComment on above:Result Comment: [facility]???s estimated glomerular filtration rate (eG FR) [...] group of individuals. Performed By: #### [id number] ####[facility] ([facility])[address] [place] [address]Dtkfonl [Mass/Vol]86 mg/cLJdjtzz20-892PvhbyqbopqUniversity Hospitals Samaritan Medical CenterComment on above:Performed By: #### [id number] ####[facility] ([facility])[address] [place] [place] [address]Gqcebzjrt [Moles/Vol]3.8 mmol/LNormal 3.5-5.1UnUniversity Hospitals Samaritan Medical CenterComment on above:Performed By: #### [id number] ####[facility] ([facility])[address] [place], [place] [address]Yftmbss [Mass/Vol]4.9 g/dLLow6.0-8.3UnUniversity Hospitals Samaritan Medical CenterComment on above: Performed By: #### [id number] ####[facility] ([facility])[address] [place] [address]Kgdkfh [Moles/Vol]132 mmol/CMqq103-310DbevdsnbetUniversity Hospitals Samaritan Medical CenterComment on above:Performed By: #### [id number] ####[facility] ([facility])[address] [place], [place] [address]Ukkj nitrogen [Mass/Vol]15 mg/dLNormal 7-25UnUniversity Hospitals Samaritan Medical CenterComment on above:Performed By: #### [id number] ####[facility] ([facility])[address] [place], [place] [address]NFZZ NITROGEN/CREATININE (MASS RATIO) IN SER/PLAS22.7NormalUniversOhio State University Wexner Medical CenterComment on above:Performed By: #### [id number] ####[facility] ([facility])[address] [place], [place] [address]WHB HEART CORONARY W IV CONTRAST W OR WO FFRCTon 90-28-0085OSC HEART CORONARY W IV CONTRAST W OR WO FFRCTInvalid Interpretation CodeUnUniversity Hospitals Samaritan Medical CenterMAGNESIUMon 03-04-2025 Magnesium [Mass/Vol]2.0 mg/dLNormal1.9-2.7UnUniversity Hospitals Samaritan Medical Center Comment on above:Performed By: #### [id number] ####[facility] ([facility])[address] [place] [place] [address]ESRSJTADjw 81-78-4278AUPOCUMUEgusn sinus rhythem NormalUnUniversity Hospitals Samaritan Medical CenterPHOSPHORUSon 66-34-2522Wcmpdkyql [Mass/Vol]2.7 mg/dLNormal2.5-5.0UnUniversity Hospitals Samaritan Medical CenterComment on above:Performed By: #### [id number] ####[facility] ([facility])[address] [place] [address]rv 98-87-921133PjklxvRpjeptlmdo of [facility] ANESon 90-39-4399PKTSDfbcnjIbttajieql of [place] CenterANTI-XA (HEPARIN LEVEL)on 34-90-3978FMRXEHO UNFRACTIONATED (U/ML) IN PPP BY CHROMOGENIC METHOD 0.23 IU/mLLow0.3-0.7UnUniversity Hospitals Samaritan Medical CenterComment on above:Result Comment: Rivaroxaban and Apixaban will interfere with the anti Xa assay used to monitor UFH and LMWH.Performed By: #### [id number] ####[facility] ([facility])[address] [place] [place] [place], [place] [address]BRLTAHN UNFRACTIONATED (U/ML) IN PPP BY CHROMOGENIC METHOD0.31 IU/mLNormal0.3-0.7UnUniversity Hospitals [facility] Comment on above:Result Comment: Rivaroxaban and Apixaban will interfere with the anti Xa assay used to monitor UFH and LMWH.Performed By: #### [id number] ####[facility] ([facility])[address] [place], [place] [address]DXIHkv 14-75-8537QYDYPWNYP PARTIAL THROMBOPLASTIN TIME IN PPP BY COAGULATION ASSAY41.8 RsbmunaGnji50.0-35.0UnUniversity Hospitals Samaritan Medical CenterComment on above:Order Comment: Baseline aPTT before initiating heparin infusion.Result Comment: Clinical significance of the APTT is questionable in the presence of heparin. Performed By: #### [id number] ####[facility] ([facility])[address] [place] [address]ENEiu 92-87-6704Vegssrbupkb distribution width (RBC) [Ratio] 16.4 %High11.5-15.0UnUniversity Hospitals Samaritan Medical CenterComment on above:Performed By: #### [id number] ####[facility] ([facility])[address] [place] [address]VPJBESGOKBQ MEAN CORPUSCULAR HEMOGLOBIN CONCENTRATION (G/DL) BY AUTOMATED 34.0 g/fTKscnoz40.0-35.0UnUniversity Hospitals Samaritan Medical CenterComment on above: Performed By: #### [id number] ####[facility] ([facility])[address] [place] [address]Aifswrxbtt (Bld) [Volume fraction]24.1 %Low39.0-50.0 [facility] HospitalComment on above:Performed By: #### [id number] ####[facility] ([facility])[address] [place] [address]Khkgxnqqut (Bld) [Mass/Vol]8.2 g/dLLow13.0-17.0UnUniversity Hospitals Samaritan Medical CenterComment on above:Performed By: #### [id number] ####[facility] ([facility])[address] [place] [address]DLV (RBC) [Entitic mass]30.5 wlPatvff96.0-33.0UnUniversity Hospitals Samaritan Medical CenterComment on above:Performed By: #### [id number] ####[facility] ([facility])[address] [place] [address]VKA (RBC) [Entitic vol] 89.6 fHRpaaxc23.0-98.0UnUniversity Hospitals Samaritan Medical CenterComment on above: Performed By: #### [id number] ####[facility] ([facility])[address] [place] [place] [address]OFBGSGJFR (10*3/UL) IN BLOOD AUTOMATED STBKT200 10*3/uLNormal 150-400UnUniversity Hospitals Samaritan Medical CenterComment on above:Performed By: #### [id number] ####[facility] ([facility])[address] [place] [address]EVK (Bld) [#/Vol]2.69 10*6/uLLow4.20-5.70UnUniversity Hospitals Samaritan Medical CenterComment on above:Performed By: #### [id number] ####[facility] ([facility])[address] [place], [place] [address]GPV (Bld) [#/Vol]5.84 10*3/uLNormal4.00-10.60UnUniversity Hospitals Samaritan Medical CenterComment on above:Performed By: #### [id number] ####[facility] ([facility])[address] [place], [place] [address]NJGVQROJKBWBA METABOLIC PANELon 42-56-9609Zgvotai [Mass/Vol]2.9 g/dLLow3.5-5.7UnUniversity Hospitals Samaritan Medical CenterComment on above:Performed By: #### [id number] ####[facility] ([facility])[address], [place] [address]VHJ [Catalytic activity/Vol]55 U/L Nbxght37-494QqywfjoupsUniversity Hospitals Samaritan Medical CenterComment on above:Performed By: #### [id number] ####[facility] ([facility])[address] [place], [place] [address]FXD [Catalytic activity/Vol]18 U/LNormal7-52UnUniversity [facility] Comment on above:Performed By: #### [id number] ####[facility] ([facility])[address] [place], [place] [address]Wtasf gap [Moles/Vol]9 mmol/LNormal7-20UnUniversity Hospitals Samaritan Medical CenterComment on above:Performed By: #### [id number] ####[facility] ([facility])[address], [place] [address]HAK [Catalytic activity/Vol]23 U/VBzyawe67-62FzbwryhejhUniversity Hospitals Samaritan Medical CenterComment on above:Performed By: #### [id number] ####[facility] ([facility])[address] [place], [place] [address]Vmgqgczvy [Mass/Vol]4.0 mg/dLHigh0.3-1.0UnUniversity Hospitals Samaritan Medical CenterComment on above:Performed By: #### [id number] ####[facility] ([facility])[address] [place], [place] [address]Qaftfcb [Mass/Vol]7.8 mg/dLLow8.6-10.3 [facility] HospitalComment on above:Performed By: #### [id number] ####[facility] ([facility])[address] [place], [place] [address]Vtukugfo [Moles/Vol]102 mmol/OOwmlcr39-269MlwwhdxkslUniversity Hospitals Samaritan Medical CenterComment on above:Performed By: #### [id number] ####[facility] ([facility])[address] [place], [place] [address]TN2 [Moles/Vol]25 mmol/MOfywuk43-41WoautltgptUniversity Hospitals Samaritan Medical CenterComment on above:Performed By: #### [id number] ####[facility] ([facility])[address] [place], [place] [address]Hotscyqfpq [Mass/Vol]0.69 mg/dLLow 0.70-1.30UnUniversity Hospitals Samaritan Medical CenterComment on above:Performed By: #### [id number] ####[facility] ([facility])[address], [place] [address]OKRKDUTVLM FILTRATION RATE ML/MIN/1.73 SQ M.XJBPLDDZT349.3 mL/min/1.73m*2Normal>60.0 [facility] HospitalComment on above:Result Comment: [facility]???s estimated glomerular filtration rate (eG FR) [...] group of individuals. Performed By: #### [id number] ####[facility] ([facility])[address] [place] [address]Fqoouqg [Mass/Vol]88 mg/mXLeyttd49-886WgjpfhwgjjUniversity Hospitals Samaritan Medical CenterComment on above:Performed By: #### [id number] ####[facility] ([facility])[address] [place] [address]Onkfwxjee [Moles/Vol]4.0 mmol/LNormal 3.5-5.1UnUniversity Hospitals Samaritan Medical CenterComment on above:Performed By: #### [id number] ####[facility] ([facility])[address] [place], [place] [address]Zteomuv [Mass/Vol]5.1 g/dLLow6.0-8.3UnUniversity Hospitals Samaritan Medical CenterComment on above: Performed By: #### [id number] ####[facility] ([facility])[address] [place], [place] [address]Qtojvx [Moles/Vol]132 mmol/KOvv242-375NykyjmbjgdUniversity Hospitals Samaritan Medical CenterComment on above:Performed By: #### [id number] ####[facility] ([facility])[address] [place], [place] [address]Xvpo nitrogen [Mass/Vol]12 mg/dLNormal 7-25UnUniversity Hospitals Samaritan Medical CenterComment on above:Performed By: #### [id number] ####[facility] ([facility])[address] [place], [place] [address]XBDM NITROGEN/CREATININE (MASS RATIO) IN SER/PLAS17.4NormalUniversOhio State University Wexner Medical CenterComment on above:Performed By: #### [id number] ####[facility] ([facility])[address] [place], [place] [address]MDGPIQI LEVELon 03-51-1896OBWJRCA (NG/ML) IN SER/PLAS0.6 ng/mLLow0.7-2UnUniversity Hospitals Samaritan Medical CenterComment on above:Performed By: #### [id number] ####[facility] ([facility])[address] [facility] [place] [address]VPtf 89-28-63[address]VHFilsalPmfobuybeu [facility] MAGNESIUMon 45-60-5402Zyqilweiy [Mass/Vol]2.0 mg/dLNormal1.9-2.7UnUniversity Hospitals Samaritan Medical CenterComment on above:Performed By: #### [id number] ####[facility] ([facility])[address] [place], [place] [address]NBAZCJSUii 03-03-2025 NURSNOTENormalUniversity Brown Memorial HospitalNURSNOTENormalUniversity Brown Memorial HospitalNURSNOTENormalUniversity Brown Memorial HospitalPHOSPHORUS on 65-98-4212Oxddvpvvk [Mass/Vol]2.9 mg/dLNormal2.5-5.0UnUniversity Hospitals Samaritan Medical CenterComment on above:Performed By: #### [id number] ####[facility] ([facility])[address] [place], [place] [address]MSKKTDXL COUNTon 75-29-6626VPSGLYVRQ (10*3/UL) IN BLOOD AUTOMATED LYVXL320 10*3/wTBjcacm121-491WyfkmgqdqdUniversity Hospitals Samaritan Medical CenterComment on above:Performed By: #### [id number] ####[facility] ([facility])[address] [place], [place] [address]yr 73-05-433942ZhyctsJskyxwjkpzSt. Rita's HospitalANTI-XA (HEPARIN LEVEL)on 15-22-9935ARPHPLZ UNFRACTIONATED (U/ML) IN PPP BY CHROMOGENIC METHOD0.18 IU/mLLow0.3-0.7UnUniversity Hospitals Samaritan Medical CenterComment on above:Result Comment: Rivaroxaban and Apixaban will interfere with the anti Xa assay used to monitor UFH and LMWH.Performed By: #### [id number] ####[facility] ([facility])[address] [place], [place] [address]DQMSfh 09-18-8381YTGQTVUHS PARTIAL THROMBOPLASTIN TIME IN PPP BY COAGULATION ASSAY39.7 QmqdzasUriv63.0-35.0UnUniversity Hospitals Samaritan Medical CenterComment on above:Order Comment: Baseline aPTT before initiating heparin infusion.Result Comment: Clinical significance of the APTT is questionable in the presence of heparin. Performed By: #### [id number] ####[facility] ([facility])[address] [place], [place] [address]URFZIAWGPTRUZ METABOLIC PANELon 12-49-1980Wfymdfp [Mass/Vol] 3.0 g/dLLow3.5-5.7UnUniversity Hospitals Samaritan Medical CenterComment on above:Performed By: #### [id number] ####[facility] ([facility])[address] [place] [address] ALP [Catalytic activity/Vol]59 U/CHxgpli63-555HcmmqsxcalUniversity Hospitals Samaritan Medical CenterComment on above:Performed By: #### [id number] ####[facility] ([facility])[address] [place], [place] [address]TED [Catalytic activity/Vol]20 U/L Normal7-52UnUniversity Hospitals Samaritan Medical CenterComment on above:Performed By: #### [id number] ####[facility] ([facility])[address] [place], [place] [address]Ppdaq gap [Moles/Vol]7 mmol/LNormal7-20UnUniversity Hospitals Samaritan Medical CenterComment on above:Performed By: #### [id number] ####[facility] ([facility])[address] [place], [place] [address]QAG [Catalytic activity/Vol]21 U/LYiyuld80-94TdhmnoaklnUniversity Hospitals Samaritan Medical CenterComment on above:Performed By: #### [id number] ####[facility] ([facility])[address] [place], [place] [address]Rqgicyuem [Mass/Vol]4.3 mg/dLHigh 0.3-1.0UnUniversity Hospitals Samaritan Medical CenterComment on above:Performed By: #### [id number] ####[facility] ([facility])[address] [place], [place] [address]Rmbvdbm [Mass/Vol]8.1 mg/dLLow8.6-10.3UnUniversity Hospitals Samaritan Medical CenterComment on above:Performed By: #### [id number] ####[facility] ([facility])[address] [place], [place] [address]Jnribogl [Moles/Vol]103 mmol/LYisybb13-177WyoamsrcbzUniversity Hospitals Samaritan Medical CenterComment on above:Performed By: #### [id number] ####[facility] ([facility])[address] [place], [place] [address]YU3 [Moles/Vol]25 mmol/LNormal 21-31UnUniversity Hospitals Samaritan Medical CenterComment on above:Performed By: #### [id number] ####[facility] ([facility])[address] [place], [place] [address]Twamxzxzyb [Mass/Vol]0.68 mg/dLLow0.70-1.30UnUniversity Hospitals Samaritan Medical CenterComment on above:Performed By: #### [id number] ####[facility] ([facility])[address] [place], [place] [address]AZUUVXUGHV FILTRATION RATE ML/MIN/1.73 SQ M.FEHRPEXKL570.7 mL/min/1.73m*2Normal>60.0UnUniversity Hospitals Samaritan Medical CenterComment on above: Result Comment: [facility]???s estimated glomerular filtration rate (eGFR) will [...] anyone group of individuals.Performed By: #### [id number] ####[facility] ([facility])[address], [place] [address]Yiydetd [Mass/Vol]91 mg/cDNfwski26-072EmnfgostvmUniversity Hospitals Samaritan Medical CenterComment on above:Performed By: #### [id number] ####[facility] ([facility])[address] [place], [place] [address]Juulatgvf [Moles/Vol]4.0 mmol/LNormal3.5-5.1UnUniversity Hospitals Samaritan Medical CenterComment on above:Performed By: #### [id number] ####[facility] ([facility])[address] [place] [address] Protein [Mass/Vol]5.3 g/dLLow6.0-8.3UnUniversity Hospitals Samaritan Medical CenterComment on above:Performed By: #### [id number] ####[facility] ([facility])[address] [place] [place] [address]Flddgq [Moles/Vol]131 mmol/TEoh643-556ZpswbpegfbUniversity Hospitals Samaritan Medical CenterComment on above:Performed By: #### [id number] ####[facility] ([facility])[address] [place] [address]Pben nitrogen [Mass/Vol]13 mg/dLNormal 7-25UnUniversity Hospitals Samaritan Medical CenterComment on above:Performed By: #### [id number] ####[facility] ([facility])[address] [place] [address]SBFS NITROGEN/CREATININE (MASS RATIO) IN SER/PLAS19.1NormalUnUniversity Hospitals Samaritan Medical CenterComment on above:Performed By: #### [id number] ####[facility] ([facility])[address] [place] [address]GHRYHSXXRbp 15-63-5832Qsljketmh [Mass/Vol]2.0 mg/dLNormal1.9-2.7UnUniversity Hospitals Samaritan Medical CenterComment on above:Performed By: #### [id number] ####[facility] ([facility])[address] [facility] [address]MWYSBHKBUDfe 78-14-8696Rkszzwyrt [Mass/Vol]2.5 mg/dLNormal 2.5-5.0UnUniversity Hospitals Samaritan Medical CenterComment on above:Performed By: #### [id number] ####[facility] ([facility])[address] [facility] [address]MJTCUDFI COUNTon 27-56-1320WLGYDDPID (10*3/UL) IN BLOOD AUTOMATED ELTGU558 10*3/uLNormal 150-400[facility] HospitalComment on above:Performed By: #### [id number] ####[facility] ([facility])[address] [place] [address] URINALYSISon 75-57-6231UQAZDDIBH, TOTAL PRESENCE IN URINENegativeNormalNegative [facility] HospitalComment on above:Order Comment: Microscopics not performed on urines with negative chemical reactions unless requested on original order.Performed By: #### [id number] ####[facility] ([facility])[address] [place], [place] [address]Isukzli (U)ClearNormalClearLancaster Municipal HospitalComment on above:Order Comment: Microscopics not performed on urines with negative chemical reactions unless requested on original order. Performed By: #### [id number] ####[facility] ([facility])[address] [place], [place] [address]Buqjo (U)YellowNormalColorless, Yellow, Light-Yellow [facility] HospitalComment on above:Order Comment: Microscopics not performed on urines with negative chemical reactions unless requested on original order.Performed By: #### [id number] ####[facility] ([facility])[address] [place], [place] [address]EMGWRCI (MG/DL) IN URINENormalNormalNormal [facility] HospitalComment on above:Order Comment: Microscopics not performed on urines with negative chemical reactions unless requested on original order.Performed By: #### [id number] ####[facility] ([facility])[address] [place], [place] [address]VBNSUYASQA PRESENCE IN URINENegativeNormalNegative [facility] HospitalComment on above:Order Comment: Microscopics not performed on urines with negative chemical reactions unless requested on original order.Performed By: #### [id number] ####[facility] ([facility])[address] [place], [place] [address]Nxqdqeo Ql (U)NegativeNormalNegativeLancaster Municipal HospitalComment on above:Order Comment: Microscopics not performed on urines with negative chemical reactions unless requested on original order. Performed By: #### [id number] ####[facility] ([facility])[address] [place], [place] [address]VGDTKAPAX ESTERASE PRESENCE IN URINE BY TEST STRIPNegative NormalNegativeUnUniversity Hospitals Samaritan Medical CenterComment on above:Order Comment: Microscopics not performed on urines with negative chemical reactions unless requested on original order.Performed By: #### [id number] ####[facility] ([facility])[address] [place], [place] [address]YNTEXAD PRESENCE IN URINENegative NormalNegativeUnUniversity Hospitals Samaritan Medical CenterComment on above:Order Comment: Microscopics not performed on urines with negative chemical reactions unless requested on original order.Performed By: #### [id number] ####[facility] ([facility])[address] [place], [place] [address]bB (U)6.5 [pH]Normal5.0-8.0UnUniversity Hospitals Samaritan Medical CenterComment on above:Order Comment: Microscopics not performed on urines with negative chemical reactions unless requested on original order.Performed By: #### [id number] ####[facility] ([facility])[address] [place], [place] [address]Shotfdx (U) [Mass/Vol]NegativeNormalNegative [facility] HospitalComment on above:Order Comment: Microscopics not performed on urines with negative chemical reactions unless requested on original order.Performed By: #### [id number] ####[facility] ([facility])[address] [place], [place] [address]Wmezfsum gravity (U) [Rel density]1.016Normal 1.010-1.030UnUniversity Hospitals Samaritan Medical CenterComment on above:Order Comment: Microscopics not performed on urines with negative chemical reactions unless requested on original order.Performed By: #### [id number] ####[facility] ([facility])[address] [place], [place] [address]MBWUYLKQQWGW (MG/DL) IN URINE>=8.0 AbnormalNormalUniversOhio State University Wexner Medical CenterComment on above:Order Comment: Microscopics not performed on urines with negative chemical reactions unless requested on original order.Performed By: #### [id number] ####[facility] ([facility])[address], [place] [address]vq 20-83-175676Pnq patient is Moderately Stable - Low risk of patient condition declining or worsening The patient's goals for the shift include comfort, rest. The clinical goals for the shift include stable vitals, safety.NormalUnUniversity Hospitals Samaritan Medical Center30NormalUniversity Brown Memorial HospitalCOMPREHENSIVE METABOLIC PANELon 60-23-3043Yblbwwf [Mass/Vol]2.9 g/dLLow3.5-5.7UnUniversity Hospitals Samaritan Medical CenterComment on above:Performed By: #### [id number] ####[facility] ([facility])[address] [place], [place] [address]OJD [Catalytic activity/Vol]58 U/NTzxqxp78-951DhlkcxfuexUniversity Hospitals Samaritan Medical CenterComment on above:Performed By: #### [id number] ####[facility] ([facility])[address] [place], [place] [address]RGQ [Catalytic activity/Vol]17 U/LNormal7-52[facility] Comment on above:Performed By: #### [id number] ####[facility] ([facility])[address] [place], [place] [address]Jreyg gap [Moles/Vol]9 mmol/LNormal7-20UnUniversity Hospitals Samaritan Medical CenterComment on above:Performed By: #### [id number] ####[facility] ([facility])[address] [place], [place] [address]VNJ [Catalytic activity/Vol]17 U/MVgtpeg87-38AkhwwevlnkUniversity Hospitals Samaritan Medical CenterComment on above:Performed By: #### [id number] ####[facility] ([facility])[address] [place], [place] [address]Grhzrcapb [Mass/Vol]3.6 mg/dLHigh0.3-1.0UnUniversity Hospitals Samaritan Medical CenterComment on above:Performed By: #### [id number] ####[facility] ([facility])[address] [place], [place] [address]Isywsrx [Mass/Vol]7.7 mg/dLLow8.6-10.3 [facility] HospitalComment on above:Performed By: #### [id number] ####[facility] ([facility])[address] [place], [place] [address]Ttksjyis [Moles/Vol]103 mmol/XNuxbyw34-991XewgmpsvvxUniversity Hospitals Samaritan Medical CenterComment on above:Performed By: #### [id number] ####[facility] ([facility])[address], [place] [address]QB6 [Moles/Vol]22 mmol/VFynqhq45-49CsikrfxpnyUniversity Hospitals Samaritan Medical CenterComment on above:Performed By: #### [id number] ####[facility] ([facility])[address] [place], [place] [address]Wzvtigpggc [Mass/Vol]0.67 mg/dLLow 0.70-1.30UnUniversity Hospitals Samaritan Medical CenterComment on above:Performed By: #### [id number] ####[facility] ([facility])[address], [place] [address]UATFDRHAZS FILTRATION RATE ML/MIN/1.73 SQ M.SNTUHTMQO808.2 mL/min/1.73m*2Normal>60.0 [facility] HospitalComment on above:Result Comment: [facility]???s estimated glomerular filtration rate (eG FR) [...] group of individuals. Performed By: #### [id number] ####[facility] ([facility])[address], [place] [address]Ynkagav [Mass/Vol]94 mg/fQQtmzaz39-191DjisnvzwofUniversity Hospitals Samaritan Medical CenterComment on above:Performed By: #### [id number] ####[facility] ([facility])[address] [address]Jxyrpyaxc [Moles/Vol]3.9 mmol/LNormal 3.5-5.1UnUniversity Hospitals Samaritan Medical CenterComment on above:Performed By: #### [id number] ####[facility] ([facility])[address] [address]Dgtdesx [Mass/Vol]5.1 g/dLLow6.0-8.3UnUniversity Hospitals Samaritan Medical CenterComment on above: Performed By: #### [id number] ####[facility] ([facility])[address] [address]Sjoibm [Moles/Vol]130 mmol/AQqi487-175KorrcqpbokUniversity Hospitals Samaritan Medical CenterComment on above:Performed By: #### [id number] ####[facility] ([facility])[address] [place] [address]Ngzl nitrogen [Mass/Vol]14 mg/dLNormal 7-25UnUniversity Hospitals Samaritan Medical CenterComment on above:Performed By: #### [id number] ####[facility] LAB ([facility])[address] [address]FTQA NITROGEN/CREATININE (MASS RATIO) IN SER/PLAS20.9NormalUniversOhio State University Wexner Medical CenterComment on above:Performed By: #### [id number] ####[facility] ([facility])[address] [place] [address]GVPKRPD LEVELon 81-25-2488KTADEJD (NG/ML) IN SER/PLAS<0.3Low0.7-2UnUniversity Hospitals Samaritan Medical CenterComment on above:Performed By: #### [id number] ####[facility] ([facility])[address] [address]ISALLJXROvd 71-76-0392Syszbggcg [Mass/Vol]2.0 mg/dLNormal 1.9-2.7UnUniversity Hospitals Samaritan Medical CenterComment on above:Performed By: #### [id number] ####[facility] ([facility])[address] [place] [address]LBJTQLFK on 96-70-3942IUNETCIXEmkkmlPvjoqogzah of [place] Medical CenterPHOSPHORUSon 10-19-9541Vbzthkyny [Mass/Vol]2.4 mg/dLLow2.5-5.0UnUniversity Hospitals Samaritan Medical CenterComment on above:Performed By: #### [id number] ####[facility] ([facility])[address] [place] [address]456xh 82-80-806580RfmqocSlffimtqur of [place] Medical CenterCBCon 04-82-4259Yiplhkvtnvr distribution width (RBC) [Ratio]17.2 %High11.5-15.0UnUniversity Hospitals Samaritan Medical CenterComment on above: Performed By: #### [id number] ####[facility] ([facility])[address] [place] [address]CQRRMNRXOXI MEAN CORPUSCULAR HEMOGLOBIN CONCENTRATION (G/DL) BY AUJBUQHJV28.2 g/bXWzsgtk82.0-35.0UnUniversity Hospitals Samaritan Medical CenterComment on above:Performed By: #### [id number] ####[facility] ([facility])[address] [place] [address]Kkggzxxxiq (Bld) [Volume fraction]24.3 %Low39.0-50.0 [facility] HospitalComment on above:Performed By: #### [id number] ####[facility] ([facility])[address] [place] [address]Fbqiqibcsw (Bld) [Mass/Vol]8.3 g/dLLow13.0-17.0UnUniversity Hospitals Samaritan Medical CenterComment on above:Performed By: #### [id number] ####[facility] ([facility])[address] [place] [address]EWJ (RBC) [Entitic mass]30.7 htHqmocm92.0-33.0UnUniversity Hospitals Samaritan Medical CenterComment on above:Performed By: #### [id number] ####[facility] ([facility])[address] [place] [address]QWL (RBC) [Entitic vol] 90.0 lWWfqnpo26.0-98.0UnUniversity Hospitals Samaritan Medical CenterComment on above: Performed By: #### [id number] ####[facility] ([facility])[address] [place] [address]QNADIGPZT (10*3/UL) IN BLOOD AUTOMATED [id number] 10*3/uLNormal 150-400UnUniversity Hospitals Samaritan Medical CenterComment on above:Performed By: #### [id number] ####[facility] ([facility])[address] [place] [address]HBH (Bld) [#/Vol]2.70 10*6/uLLow4.20-5.70UnUniversity Hospitals Samaritan Medical CenterComment on above:Performed By: #### [id number] ####[facility] ([facility])[address] [address]ZXU (Bld) [#/Vol]8.84 10*3/uLNormal4.00-10.60UnUniversity Hospitals Samaritan Medical CenterComment on above:Performed By: #### [id number] ####[facility] ([facility])[address], [place] [address]BSZCIUGIIKKHL METABOLIC PANELon 72-62-5126Slnndqq [Mass/Vol]3.0 g/dLLow3.5-5.7UnUniversity Hospitals Samaritan Medical CenterComment on above:Performed By: #### [id number] ####[facility] ([facility])[address], [place] [address]LCP [Catalytic activity/Vol]60 U/L Lpicmc81-031VtjvxvrzflUniversity Hospitals Samaritan Medical CenterComment on above:Performed By: #### [id number] ####[facility] ([facility])[address], [place] [address]GXL [Catalytic activity/Vol]20 U/LNormal7-52UnUniversity Hospitals Samaritan Medical Center Comment on above:Performed By: #### [id number] ####[facility] ([facility])[address] [place], [place] [address]Mucuu gap [Moles/Vol]10 mmol/LNormal7-20UnUniversity Hospitals Samaritan Medical CenterComment on above:Performed By: #### [id number] ####[facility] ([facility])[address] [place], [place] [address]SER [Catalytic activity/Vol]14 U/EBwqkzd32-55KvyrkuhujrUniversity Hospitals Samaritan Medical CenterComment on above:Performed By: #### [id number] ####[facility] ([facility])[address] [place], [place] [address]Hoizarkgj [Mass/Vol]3.8 mg/dLHigh0.3-1.0UnUniversity Hospitals Samaritan Medical CenterComment on above:Performed By: #### [id number] ####[facility] ([facility])[address] [place], [place] [address]Gqxzehw [Mass/Vol]7.9 mg/dLLow8.6-10.3 [facility] HospitalComment on above:Performed By: #### [id number] ####[facility] ([facility])[address] [place], [place] [address]Hvedwexn [Moles/Vol]102 mmol/MUroyto46-631MrfbjdoqosUniversity Hospitals Samaritan Medical CenterComment on above:Performed By: #### [id number] ####[facility] ([facility])[address] [place], [place] [address]XM5 [Moles/Vol]23 mmol/BFbiwqy27-71EcjjqneinwUniversity Hospitals Samaritan Medical CenterComment on above:Performed By: #### [id number] ####[facility] ([facility])[address] [place], [place] [address]Keufafktbd [Mass/Vol]0.75 mg/dLNormal 0.70-1.30UnUniversity Hospitals Samaritan Medical CenterComment on above:Performed By: #### [id number] ####[facility] ([facility])[address], [place] [address]NAECQBMFID FILTRATION RATE ML/MIN/1.73 SQ M.KNWQNNACK553.6 mL/min/1.73m*2Normal>60.0 [facility] HospitalComment on above:Result Comment: [facility]???s estimated glomerular filtration rate (eG FR) [...] group of individuals. Performed By: #### [id number] ####[facility] ([facility])[address] [place], [place] [address]Puxegys [Mass/Vol]98 mg/gEFznwwk57-955RmmfnphzsrUniversity Hospitals Samaritan Medical CenterComment on above:Performed By: #### [id number] ####[facility] ([facility])[address] [place], [place] [address]Mybyzdegy [Moles/Vol]4.0 mmol/LNormal 3.5-5.1UnUniversity Hospitals Samaritan Medical CenterComment on above:Performed By: #### [id number] ####[facility] ([facility])[address] [place], [place] [address]Jpfuavb [Mass/Vol]5.1 g/dLLow6.0-8.3UnUniversity Hospitals Samaritan Medical CenterComment on above: Performed By: #### [id number] ####[facility] ([facility])[address], [place] [address]Ydnuim [Moles/Vol]131 mmol/MSbk371-214SxbjkuycktUniversity Hospitals Samaritan Medical CenterComment on above:Performed By: #### [id number] ####[facility] ([facility])[address] [place], [place] [address]Eqcj nitrogen [Mass/Vol]16 mg/dLNormal 7-25UnUniversity Hospitals Samaritan Medical CenterComment on above:Performed By: #### [id number] ####[facility] ([facility])[address] [place], [place] [address]RPHV NITROGEN/CREATININE (MASS RATIO) IN SER/PLAS21.3NormalUniversOhio State University Wexner Medical CenterComment on above:Performed By: #### [id number] ####[facility] ([facility])[address] [place] [address]SIXUWZGMWlx 47-53-7168Dixgvekjt [Mass/Vol]2.0 mg/dLLow2.5-5.0UnUniversity Hospitals Samaritan Medical CenterComment on above:Performed By: #### [id number] ####[facility] ([facility])[address] [place] [address]Vsbdqilei By: #### [id number] ####[facility] ([facility])[address] [place] [address]YJRXCQVYqk 84-99-1289JDWLBSNPHzyoapSusbvwuhvs of [place] [facility] Kovchn17io 21-28-[address]YzctymDfdtxcbxxe of [facility] CBCon 73-12-8816Rpnkiavkxcj distribution width (RBC) [Ratio]17.2 %High11.5-15.0 [facility] HospitalComment on above:Performed By: #### [id number] ####[facility] ([facility])[address] [place] [address]KILVYYZTZMU MEAN CORPUSCULAR HEMOGLOBIN CONCENTRATION (G/DL) BY BNGGIHURK01.5 g/iLSiuw52.0-35.0 [facility] HospitalComment on above:Performed By: #### [id number] ####[facility] ([facility])[address] [place] [address]Akewiqqhgf (Bld) [Volume fraction]25.1 %Low39.0-50.0[facility] HospitalComment on above:Performed By: #### [id number] ####[facility] ([facility])[address] [place] [address]Apdjwzrujq (Bld) [Mass/Vol]8.9 g/dLLow13.0-17.0UnUniversity Hospitals Samaritan Medical CenterComment on above:Performed By: #### [id number] ####[facility] ([facility])[address] [place] [address]UUJ (RBC) [Entitic mass] 31.3 shMxztir20.0-33.0UnUniversity Hospitals Samaritan Medical CenterComment on above: Performed By: #### [id number] ####[facility] ([facility])[address] [place] [address]QFT (RBC) [Entitic vol]88.4 rCAkqjhf41.0-98.0UnUniversity Hospitals Samaritan Medical CenterComment on above:Performed By: #### [id number] ####[facility] ([facility])[address] [place] [address]GRPQOQZOI (10*3/UL) IN BLOOD AUTOMATED [id number] 10*3/dGAlwfda154-467FavnhwfdppUniversity Hospitals Samaritan Medical Center Comment on above:Performed By: #### [id number] ####[facility] ([facility])[address] [place] [address]VFZ (Bld) [#/Vol]2.84 10*6/uLLow4.20-5.70UnUniversity Hospitals Samaritan Medical CenterComment on above:Performed By: #### [id number] ####[facility] ([facility])[address] [place] [address]XZG (Bld) [#/Vol]9.07 10*3/uLNormal4.00-10.60UnUniversity Hospitals Samaritan Medical CenterComment on above: Performed By: #### [id number] ####[facility] ([facility])[address] [place] [address]Badvbfofhrw distribution width (RBC) [Ratio]17.2 %High 11.5-15.0UnUniversity Hospitals Samaritan Medical CenterComment on above:Performed By: #### [id number] ####[facility] ([facility])[address] [place] [address] ERYTHROCYTE MEAN CORPUSCULAR HEMOGLOBIN CONCENTRATION (G/DL) BY JNDJELQHK12.0 g/dYDwsvmi51.0-35.0UnUniversity Hospitals Samaritan Medical CenterComment on above:Performed By: #### [id number] ####[facility] ([facility])[address] [place] [address]Jqrecqtvrz (Bld) [Volume fraction]27.4 %Low39.0-50.0UnUniversity Hospitals Samaritan Medical CenterComment on above:Performed By: #### [id number] ####[facility] ([facility])[address] [place] [address]Jizxebjfjz (Bld) [Mass/Vol]9.6 g/dLLow 13.0-17.0UnUniversity Hospitals Samaritan Medical CenterComment on above:Performed By: #### [id number] ####[facility] ([facility])[address] [place] [address]KKN (RBC) [Entitic mass]30.8 uoQiiuhm51.0-33.0UnUniversity Hospitals Samaritan Medical CenterComment on above:Performed By: #### [id number] ####[facility] ([facility])[address] [place] [address]NCD (RBC) [Entitic vol]87.8 aBTbnhkt55.0-98.0UnUniversity Hospitals Samaritan Medical CenterComment on above:Performed By: #### [id number] ####[facility] ([facility])[address] [place] [address]QUJLVHGQB (10*3/UL) IN BLOOD AUTOMATED [id number] 10*3/gUQvcryp399-755MogymrlulrUniversity Hospitals Samaritan Medical Center Comment on above:Performed By: #### [id number] ####[facility] ([facility])[address] [place] [address]VQP (Bld) [#/Vol]3.12 10*6/uLLow4.20-5.70UnUniversity Hospitals Samaritan Medical CenterComment on above:Performed By: #### [id number] ####[facility] ([facility])[address] [place] [address]FAL (Bld) [#/Vol]10.96 10*3/uLHigh4.00-10.60UnUniversity Hospitals Samaritan Medical CenterComment on above: Performed By: #### [id number] ####[facility] ([facility])[address], [place] [address]Glxvucfvfyr distribution width (RBC) [Ratio]17.3 %High 11.5-15.0UnUniversity Hospitals Samaritan Medical CenterComment on above:Performed By: #### [id number] ####[facility] ([facility])[address] [place] [address] ERYTHROCYTE MEAN CORPUSCULAR HEMOGLOBIN CONCENTRATION (G/DL) BY VGWUMCIUA53.4 g/lYUsrbvz17.0-35.0UnUniversity Hospitals Samaritan Medical CenterComment on above:Performed By: #### [id number] ####[facility] ([facility])[address], [place] [address]Nejhnkqiqa (Bld) [Volume fraction]24.7 %Low39.0-50.0UnUniversity Hospitals Samaritan Medical CenterComment on above:Performed By: #### [id number] ####[facility] ([facility])[address], [place] [address]Hyixfoyrqq (Bld) [Mass/Vol]8.5 g/dLLow 13.0-17.0UnUniversity Hospitals Samaritan Medical CenterComment on above:Performed By: #### [id number] ####[facility] ([facility])[address], [place] [address]RGH (RBC) [Entitic mass]30.9 rkFhpkvd74.0-33.0UnUniversity Hospitals Samaritan Medical CenterComment on above:Performed By: #### [id number] ####[facility] ([facility])[address], [place] [address]RKZ (RBC) [Entitic vol]89.8 uIBjwtre18.0-98.0UnUniversity Hospitals Samaritan Medical CenterComment on above:Performed By: #### [id number] ####[facility] ([facility])[address], [place] [address]OYVZEFEWX (10*3/UL) IN BLOOD AUTOMATED [id number] 10*3/eDOfgccy846-375WgbhqffqofUniversity Hospitals Samaritan Medical Center Comment on above:Performed By: #### [id number] ####[facility] ([facility])[address], [place] [address]GTN (Bld) [#/Vol]2.75 10*6/uLLow4.20-5.70UnUniversity Hospitals Samaritan Medical CenterComment on above:Performed By: #### [id number] ####[facility] ([facility])[address], [place] [address]VJB (Bld) [#/Vol]8.02 10*3/uLNormal4.00-10.60UnUniversity Hospitals Samaritan Medical CenterComment on above: Performed By: #### [id number] ####[facility] ([facility])[address], [place] [address]Xxmeaflddjv distribution width (RBC) [Ratio]17.5 %High 11.5-15.0UnUniversity Hospitals Samaritan Medical CenterComment on above:Performed By: #### [id number] ####[facility] ([facility])[address] [place] [address] ERYTHROCYTE MEAN CORPUSCULAR HEMOGLOBIN CONCENTRATION (G/DL) BY DCFEFTXMF27.5 g/vNMsfpdq96.0-35.0UnUniversity Hospitals Samaritan Medical CenterComment on above:Performed By: #### [id number] ####[facility] ([facility])[address], [place] [address]Bopiwnzgkt (Bld) [Volume fraction]23.8 %Low39.0-50.0UnUniversity Hospitals Samaritan Medical CenterComment on above:Performed By: #### [id number] ####[facility] ([facility])[address], [place] [address]Cmcdqukyaw (Bld) [Mass/Vol]8.2 g/dLLow 13.0-17.0UnUniversity Hospitals Samaritan Medical CenterComment on above:Performed By: #### [id number] ####[facility] ([facility])[address], [place] [address]UQM (RBC) [Entitic mass]30.7 kzFaiubx89.0-33.0UnUniversity Hospitals Samaritan Medical CenterComment on above:Performed By: #### [id number] ####[facility] ([facility])[address] [place] [address]VJU (RBC) [Entitic vol]89.1 uLUykayh71.0-98.0UnUniversity Hospitals Samaritan Medical CenterComment on above:Performed By: #### [id number] ####[facility] ([facility])[address] [place] [address]OPIGGMCFZ (10*3/UL) IN BLOOD AUTOMATED [id number] 10*3/aWNbdryd543-643GmzngnuyfmUniversity Hospitals Samaritan Medical Center Comment on above:Performed By: #### [id number] ####[facility] ([facility])[address] [place] [address]IPQ (Bld) [#/Vol]2.67 10*6/uLLow4.20-5.70UnUniversity Hospitals Samaritan Medical CenterComment on above:Performed By: #### [id number] ####[facility] ([facility])[address] [place] [address]MKZ (Bld) [#/Vol]8.06 10*3/uLNormal4.00-10.60UnUniversity Hospitals Samaritan Medical CenterComment on above: Performed By: #### [id number] ####[facility] ([facility])[address] [place] [address]FJWZCPOMOQHKG METABOLIC PANELon 76-07-1812Gmtmocl [Mass/Vol] 2.9 g/dLLow3.5-5.7UnUniversity Hospitals Samaritan Medical CenterComment on above:Performed By: #### [id number] ####[facility] ([facility])[address] [place] [address] ALP [Catalytic activity/Vol]54 U/UZzilpr23-269KlkaxxhqlmUniversity Hospitals Samaritan Medical CenterComment on above:Performed By: #### [id number] ####[facility] ([facility])[address] [place] [address]EDF [Catalytic activity/Vol]21 U/L Normal7-52UnUniversity Hospitals Samaritan Medical CenterComment on above:Performed By: #### [id number] ####[facility] ([facility])[address] [place], [place] [address]Xtqvp gap [Moles/Vol]8 mmol/LNormal7-20UnUniversity Hospitals Samaritan Medical CenterComment on above:Performed By: #### [id number] ####[facility] ([facility])[address], [place] [address]VFS [Catalytic activity/Vol]16 U/TIeczgv24-88BjeptaauyaUniversity Hospitals Samaritan Medical CenterComment on above:Performed By: #### [id number] ####[facility] ([facility])[address] [place], [place] [address]Kefzsvvpc [Mass/Vol]3.4 mg/dLHigh 0.3-1.0UnUniversity Hospitals Samaritan Medical CenterComment on above:Performed By: #### [id number] ####[facility] ([facility])[address] [place], [place] [address]Lweqqwp [Mass/Vol]7.8 mg/dLLow8.6-10.3UnUniversity Hospitals Samaritan Medical CenterComment on above:Performed By: #### [id number] ####[facility] ([facility])[address] [place], [place] [address]Ipslwklz [Moles/Vol]102 mmol/EEcehec81-541UhqucxmsenUniversity Hospitals Samaritan Medical CenterComment on above:Performed By: #### [id number] ####[facility] ([facility])[address] [place], [place] [address]OW1 [Moles/Vol]25 mmol/LNormal 21-31UnUniversity Hospitals Samaritan Medical CenterComment on above:Performed By: #### [id number] ####[facility] ([facility])[address] [place], [place] [address]Kmcbnbxqki [Mass/Vol]0.64 mg/dLLow0.70-1.30UnUniversity Hospitals Samaritan Medical CenterComment on above:Performed By: #### [id number] ####[facility] ([facility])[address] [place], [place] [address]PFXTJIKTTC FILTRATION RATE ML/MIN/1.73 SQ M.QUABNUCOU786.7 mL/min/1.73m*2Normal>60.0UnUniversity Hospitals Samaritan Medical CenterComment on above: Result Comment: [facility]???s estimated glomerular filtration rate (eGFR) will [...] anyone group of individuals.Performed By: #### [id number] ####[facility] ([facility])[address] [facility] [address]Vjkzzmh [Mass/Vol]100 mg/eNWeaqjx76-035WxllopkxpsUniversity Hospitals Samaritan Medical CenterComment on above:Performed By: #### [id number] ####[facility] ([facility])[address] [place], [place] [address]Zsjgfbrsn [Moles/Vol]4.1 mmol/LNormal3.5-5.1UnUniversity Hospitals Samaritan Medical CenterComment on above:Performed By: #### [id number] ####[facility] ([facility])[address] [place] [address] Protein [Mass/Vol]4.9 g/dLLow6.0-8.3UnUniversity Hospitals Samaritan Medical CenterComment on above:Performed By: #### [id number] ####[facility] ([facility])[address] [place], [place] [address]Cmqfnj [Moles/Vol]131 mmol/XEso152-855WsqgpetnbxUniversity Hospitals Samaritan Medical CenterComment on above:Performed By: #### [id number] ####[facility] ([facility])[address], [place] [address]Wyic nitrogen [Mass/Vol]17 mg/dLNormal 7-25UnUniversity Hospitals Samaritan Medical CenterComment on above:Performed By: #### [id number] ####[facility] ([facility])[address] [facility], [place] [address]SYVW NITROGEN/CREATININE (MASS RATIO) IN SER/PLAS26.6NormalUniversOhio State University Wexner Medical CenterComment on above:Performed By: #### [id number] ####[facility] ([facility])[address] [place] [address]ZAPOTXETQnt [phone] [Mass/Vol]2.1 mg/dLNormal1.9-2.7UnUniversity Hospitals Samaritan Medical CenterComment on above:Performed By: #### [id number] ####[facility] ([facility])[address] [place], [place] [address]LAWDWQUBrr [phone] of Toledo Medical CenterPHOSPHORUSon [phone] [Mass/Vol]2.0 mg/dLLow2.5-5.0 [facility] HospitalComment on above:Performed By: #### [id number] ####[facility] ([facility])[address] [facility] [place] [address]zo 02-26-2025 30NormalUniversOhio State University Wexner Medical CenterCBCon [phone] distribution width (RBC) [Ratio]17.5 %High11.5-15.0UnUniversity Hospitals Samaritan Medical CenterComment on above:Performed By: #### [id number] ####[facility] ([facility])[address] [place], [place] [address]LSSXFZPJNHF MEAN CORPUSCULAR HEMOGLOBIN CONCENTRATION (G/DL) BY YFSZOYONK18.6 g/vLXnjkoe03.0-35.0UnUniversity Hospitals Samaritan Medical CenterComment on above:Performed By: #### [id number] ####[facility] ([facility])[address] [place], [place] [address]Zesvnyvyjt (Bld) [Volume fraction]24.6 %Low39.0-50.0UnUniversity Hospitals Samaritan Medical CenterComment on above: Performed By: #### [id number] ####[facility] ([facility])[address] [place] [address]Txhmoxlxie (Bld) [Mass/Vol]8.5 g/dLLow13.0-17.0UnUniversity Hospitals Samaritan Medical CenterComment on above:Performed By: #### [id number] ####[facility] ([facility])[address] [id number] (RBC) [Entitic mass] 31.1 hfAzswwz85.0-33.0UnUniversity Hospitals Samaritan Medical CenterComment on above: Performed By: #### [id number] ####[facility] ([facility])[address] [place] [address]KZA (RBC) [Entitic vol]90.1 uTVycent16.0-98.0UnUniversity Hospitals Samaritan Medical CenterComment on above:Performed By: #### [id number] ####[facility] ([facility])[address] [place] [address]TOGXHVRML (10*3/UL) IN BLOOD AUTOMATED [id number] 10*3/dESkndrd718-257SvzmfgzxwyUniversity Hospitals Samaritan Medical Center Comment on above:Performed By: #### [id number] ####[facility] ([facility])[address] [place] [address]EQC (Bld) [#/Vol]2.73 10*6/uLLow4.20-5.70UnUniversity Hospitals Samaritan Medical CenterComment on above:Performed By: #### [id number] ####[facility] ([facility])[address] [place] [address]QUA (Bld) [#/Vol]8.18 10*3/uLNormal4.00-10.60UnUniversity Hospitals Samaritan Medical CenterComment on above: Performed By: #### [id number] ####[facility] ([facility])[address] [place] [address]Oldluqiqxhq distribution width (RBC) [Ratio]17.6 %High 11.5-15.0UnUniversity Hospitals Samaritan Medical CenterComment on above:Performed By: #### [id number] ####[facility] ([facility])[address] [place] [address] ERYTHROCYTE MEAN CORPUSCULAR HEMOGLOBIN CONCENTRATION (G/DL) BY CJDJGJEZO76.0 g/dBNyobok15.0-35.0UnUniversity Hospitals Samaritan Medical CenterComment on above:Performed By: #### [id number] ####[facility] ([facility])[address] [address]Worlfrlojn (Bld) [Volume fraction]25.0 %Low39.0-50.0UnUniversity Hospitals Samaritan Medical CenterComment on above:Performed By: #### [id number] ####[facility] ([facility])[address] [address]Hhilntwcnx (Bld) [Mass/Vol]8.5 g/dLLow 13.0-17.0UnUniversity Hospitals Samaritan Medical CenterComment on above:Performed By: #### [id number] ####[facility] ([facility])[address] [place] [address]AGF (RBC) [Entitic mass]30.2 wlBokptu69.0-33.0UnUniversity Hospitals Samaritan Medical CenterComment on above:Performed By: #### [id number] ####[facility] ([facility])[address] [address]RVR (RBC) [Entitic vol]89.0 xJCjiplx69.0-98.0UnUniversity Hospitals Samaritan Medical CenterComment on above:Performed By: #### [id number] ####[facility] ([facility])[address] [place] [address]MEHJSSJVY (10*3/UL) IN BLOOD AUTOMATED [id number] 10*3/mGToxdxt715-999MftwcqhqgyUniversity Hospitals Samaritan Medical Center Comment on above:Performed By: #### [id number] ####[facility] ([facility])[address] [place] [address]DEB (Bld) [#/Vol]2.81 10*6/uLLow4.20-5.70UnUniversity Hospitals Samaritan Medical CenterComment on above:Performed By: #### [id number] ####[facility] ([facility])[address] [place] [address]CMY (Bld) [#/Vol]8.65 10*3/uLNormal4.00-10.60UnUniversity Hospitals Samaritan Medical CenterComment on above: Performed By: #### [id number] ####[facility] ([facility])[address], [place] [address]Egikzcccrxl distribution width (RBC) [Ratio]17.8 %High 11.5-15.0UnUniversity Hospitals Samaritan Medical CenterComment on above:Performed By: #### [id number] ####[facility] ([facility])[address] [place] [address] ERYTHROCYTE MEAN CORPUSCULAR HEMOGLOBIN CONCENTRATION (G/DL) BY FCFYUBINA55.0 g/wLThzlix69.0-35.0UnUniversity Hospitals Samaritan Medical CenterComment on above:Performed By: #### [id number] ####[facility] ([facility])[address], [place] [address]Szvesyhrji (Bld) [Volume fraction]24.6 %Low39.0-50.0UnUniversity Hospitals Samaritan Medical CenterComment on above:Performed By: #### [id number] ####[facility] ([facility])[address], [place] [address]Cfngjmbnro (Bld) [Mass/Vol]8.6 g/dLLow 13.0-17.0UnUniversity Hospitals Samaritan Medical CenterComment on above:Performed By: #### [id number] ####[facility] ([facility])[address], [place] [address]NHK (RBC) [Entitic mass]31.4 ffPkqyby16.0-33.0UnUniversity Hospitals Samaritan Medical CenterComment on above:Performed By: #### [id number] ####[facility] ([facility])[address], [place] [address]ZOV (RBC) [Entitic vol]89.8 aZIfeglx55.0-98.0UnUniversity Hospitals Samaritan Medical CenterComment on above:Performed By: #### [id number] ####[facility] ([facility])[address], [place] [address]HLOHZUVNP (10*3/UL) IN BLOOD AUTOMATED [id number] 10*3/vCYcxclu513-220SwjpaepswpUniversity Hospitals Samaritan Medical Center Comment on above:Performed By: #### [id number] ####[facility] ([facility])[address], [place] [address]NNR (Bld) [#/Vol]2.74 10*6/uLLow4.20-5.70UnUniversity Hospitals Samaritan Medical CenterComment on above:Performed By: #### [id number] ####[facility] ([facility])[address], [place] [address]TCP (Bld) [#/Vol]7.78 10*3/uLNormal4.00-10.60UnUniversity Hospitals Samaritan Medical CenterComment on above: Performed By: #### [id number] ####[facility] ([facility])[address], [place] [address]Xkrsvtzuihn distribution width (RBC) [Ratio]17.8 %High 11.5-15.0UnUniversity Hospitals Samaritan Medical CenterComment on above:Performed By: #### [id number] ####[facility] ([facility])[address] [place] [address] ERYTHROCYTE MEAN CORPUSCULAR HEMOGLOBIN CONCENTRATION (G/DL) BY LDYAKSKYC18.1 g/cERfpxiw29.0-35.0UnUniversity Hospitals Samaritan Medical CenterComment on above:Performed By: #### [id number] ####[facility] ([facility])[address], [place] [address]Rdhgztmoqk (Bld) [Volume fraction]23.2 %Low39.0-50.0UnUniversity Hospitals Samaritan Medical CenterComment on above:Performed By: #### [id number] ####[facility] ([facility])[address], [place] [address]Jwfxjuajzh (Bld) [Mass/Vol]7.9 g/dLLow 13.0-17.0UnUniversity Hospitals Samaritan Medical CenterComment on above:Performed By: #### [id number] ####[facility] ([facility])[address] [place] [address]HKM (RBC) [Entitic mass]30.6 hcRtltnh24.0-33.0UnUniversity Hospitals Samaritan Medical CenterComment on above:Performed By: #### [id number] ####[facility] ([facility])[address] [place] [address]XYF (RBC) [Entitic vol]89.9 sWHrqvml49.0-98.0UnUniversity Hospitals Samaritan Medical CenterComment on above:Performed By: #### [id number] ####[facility] ([facility])[address] [place] [address]LUPCUJXFG (10*3/UL) IN BLOOD AUTOMATED [id number] 10*3/iALynbyd455-335YsdfbmvjyhUniversity Hospitals Samaritan Medical Center Comment on above:Performed By: #### [id number] ####[facility] ([facility])[address] [place] [address]IYZ (Bld) [#/Vol]2.58 10*6/uLLow4.20-5.70UnUniversity Hospitals Samaritan Medical CenterComment on above:Performed By: #### [id number] ####[facility] ([facility])[address] [place] [address]JSX (Bld) [#/Vol]7.09 10*3/uLNormal4.00-10.60UnUniversity Hospitals Samaritan Medical CenterComment on above: Performed By: #### [id number] ####[facility] ([facility])[address], [place] [address]KQWWXAGOXLTDC METABOLIC PANELon 96-79-8315Rbzuxlu [Mass/Vol] 2.9 g/dLLow3.5-5.7UnUniversity Hospitals Samaritan Medical CenterComment on above:Performed By: #### [id number] ####[facility] ([facility])[address] [place] [address] ALP [Catalytic activity/Vol]54 U/YCyxzmw17-033UjlsbhylvaUniversity Hospitals Samaritan Medical CenterComment on above:Performed By: #### [id number] ####[facility] ([facility])[address] [place], [place] [address]OFN [Catalytic activity/Vol]24 U/L Normal7-52UnUniversity Hospitals Samaritan Medical CenterComment on above:Performed By: #### [id number] ####[facility] ([facility])[address] [place], [place] [address]Yayes gap [Moles/Vol]7 mmol/LNormal7-20UnUniversity Hospitals Samaritan Medical CenterComment on above:Performed By: #### [id number] ####[facility] ([facility])[address] [place], [place] [address]TLV [Catalytic activity/Vol]16 U/MEalzzj19-43NhvwlbfydeUniversity Hospitals Samaritan Medical CenterComment on above:Performed By: #### [id number] ####[facility] ([facility])[address] [place], [place] [address]Xmvedynra [Mass/Vol]3.5 mg/dLHigh 0.3-1.0UnUniversity Hospitals Samaritan Medical CenterComment on above:Performed By: #### [id number] ####[facility] ([facility])[address] [place], [place] [address]Zikwxlm [Mass/Vol]7.9 mg/dLLow8.6-10.3UnUniversity Hospitals Samaritan Medical CenterComment on above:Performed By: #### [id number] ####[facility] ([facility])[address] [place], [place] [address]Hidkyshq [Moles/Vol]103 mmol/DKmzxfy10-633BwtsxjhmvcUniversity Hospitals Samaritan Medical CenterComment on above:Performed By: #### [id number] ####[facility] ([facility])[address] [place], [place] [address]DB5 [Moles/Vol]27 mmol/LNormal 21-31UnUniversity Hospitals Samaritan Medical CenterComment on above:Performed By: #### [id number] ####[facility] ([facility])[address] [place], [place] [address]Tuaaofvnzd [Mass/Vol]0.80 mg/dLNormal0.70-1.30UnUniversity Hospitals Samaritan Medical CenterComment on above:Performed By: #### [id number] ####[facility] ([facility])[address] [place] [address]HTYJOJGBQD FILTRATION RATE ML/MIN/1.73 SQ M.VFWFPPUEC422.6 mL/min/1.73m*2Normal>60.0UnUniversity Hospitals Samaritan Medical CenterComment on above: Result Comment: [facility]???s estimated glomerular filtration rate (eGFR) will [...] anyone group of individuals.Performed By: #### [id number] ####[facility] ([facility])[address] [place] [address]Nrigipu [Mass/Vol]94 mg/pPRduvoj04-113HrxsjehapuUniversity Hospitals Samaritan Medical CenterComment on above:Performed By: #### [id number] ####[facility] ([facility])[address] [place] [address]Ulupzztoe [Moles/Vol]3.9 mmol/LNormal3.5-5.1UnUniversity Hospitals Samaritan Medical CenterComment on above:Performed By: #### [id number] ####[facility] ([facility])[address] [place] [address] Protein [Mass/Vol]4.8 g/dLLow6.0-8.3UnUniversity Hospitals Samaritan Medical CenterComment on above:Performed By: #### [id number] ####[facility] ([facility])[address] [place] [address]Gocsey [Moles/Vol]133 mmol/PLnk683-318MqjcfkqjngUniversity Hospitals Samaritan Medical CenterComment on above:Performed By: #### [id number] ####[facility] ([facility])[address], [place] [address]Jjws nitrogen [Mass/Vol]25 mg/dLNormal 7-25UnUniversity Hospitals Samaritan Medical CenterComment on above:Performed By: #### [id number] ####[facility] ([facility])[address], [place] [address]SDZG NITROGEN/CREATININE (MASS RATIO) IN SER/PLAS31.3NormalUniversOhio State University Wexner Medical CenterComment on above:Performed By: #### [id number] ####[facility] ([facility])[address] [place] [address]NXZQYSAHri 52-06-0993QFLOOQKS (NG/ML) IN SER/UDRW846.0 ng/zUMotfyn46.0-336.0UnUniversity Hospitals Samaritan Medical CenterComment on above:Performed By: #### [id number] ####[facility] ([facility])[address] [facility] H[facility]ITALU[place], [place] [address]ADPQWGsi 53-92-5058ZRLZMW (NG/ML) IN SER/PLAS17.66 ng/mL Normal6.6-1000UnUniversity Hospitals Samaritan Medical CenterComment on above:Performed By: #### LAB69 ####[facility] ([facility])[address] [place], [place] [address]NOSA AND TIBCon 20-04-1360UZGK (UG/DL) IN SER/PLAS20 ug/xUSlv16-592MxtlsglqfjUniversity Hospitals Samaritan Medical CenterComment on above:Performed By: #### [id number] ####[facility] ([facility])[address], [place] [address]QJYW BINDING CAPACITY (UG/DL) IN SER/RWNR928 ug/mAWpf978-710FjhdftxwwfUniversity Hospitals Samaritan Medical CenterComment on above:Performed By: #### [id number] ####[facility] ([facility])[address], [place] [address]EOPF BINDING CAPACITY.UNSATURATED (UG/DL) IN SER/LPZL055.0 ug/mUHdcpup538.0-355.0UnUniversity Hospitals Samaritan Medical CenterComment on above: Performed By: #### [id number] ####[facility] ([facility])[address], [place] [address]NSZQ SATURATION (%) IN SER/PLAS9 %Rce57-15NnpjnllvurUniversity Hospitals Samaritan Medical CenterComment on above:Performed By: #### [id number] ####[facility] ([facility])[address] [place] [address]JCVUUZXRLmh 02-26-2025 Magnesium [Mass/Vol]2.2 mg/dLNormal1.9-2.7UnUniversity Hospitals Samar[facility] Medical Center Comment on above:Performed By: #### [id number] ####[facility] ([facility])[address] [place] [address]WPBDYSHNZXim 31-86-6421Qtmqtmebg [Mass/Vol]1.8 mg/dLLow2.5-5.0UnUniversity Hospitals Samaritan Medical CenterComment on above:Performed By: #### [id number] ####[facility] ([facility])[address] [place] [address] RETICULOCYTE PANELon 47-46-7755ROUVRKDEPJ (PG) IN YOQGNLSQKRFOB34.0 pgNormal 28.0-36.0UnUniversity Hospitals Samaritan Medical CenterComment on above:Performed By: #### [id number] ####[facility] ([facility])[address], [place] [address]EUKWVKUX RETICULOCYTE FRACTION (%)36.5 %High2-16UnUniversity Hospitals [facility] Medical Center Comment on above:Performed By: #### [id number] ####[facility] ([facility])[address], [place] [address]JXEVECALSJBWW (10*6/UL) IN BLOOD0.0781 10*6/uL Normal0.0250-0.1000UnUniversity Hospitals Samaritan Medical CenterComment on above:Performed By: #### [id number] ####[facility] ([facility])[address], [place] [address]Qfynktuhrxzsk/100 RBC (Bld)2.79 %High0.50-1.80UnUniversity Hospitals Samaritan Medical CenterComment on above:Performed By: #### [id number] ####[facility] ([facility])[address] [place] [address]PYQGYNV B12on 75-57-5361Utdnlvakg (Vitamin B12) [Mass/Vol]1129 pg/dOKrhi388-361RdvgxxecflUniversity Hospitals Samaritan Medical Center Comment on above:Result Comment: REFERENCE RANGES:180-914 pg/mL Nqarfk392-701 pg/mL Indeterminate<145 pg/mL DeficientPerformed By: #### [id number] ####[facility] ([facility])[address] [place] [address]39vm 20-21-87[address]15Tdxsgv [facility] HospitalCBCon 68-37-74[address]Kboncqaagav distribution width (RBC) [Ratio]17.7 %High11.5-15.0UnUniversity Hospitals Samaritan Medical CenterComment on above:Performed By: #### [id number] ####[facility] ([facility])[address] [place] [address]NOXDESNYRHK MEAN CORPUSCULAR HEMOGLOBIN CONCENTRATION (G/DL) BY OFNKBNMJM09.8 g/sHEzbixp85.0-35.0UnUniversity Hospitals Samaritan Medical CenterComment on above:Performed By: #### [id number] ####[facility] ([facility])[address] [place] [address]Kgqkmnxiou (Bld) [Volume fraction]23.3 %Low39.0-50.0 [facility] HospitalComment on above:Performed By: #### [id number] ####[facility] ([facility])[address] [place] [address]Sbvovsrhki (Bld) [Mass/Vol]8.1 g/dLLow13.0-17.0UnUniversity Hospitals Samaritan Medical CenterComment on above:Performed By: #### [id number] ####[facility] ([facility])[address] [place] [address]AGG (RBC) [Entitic mass]31.2 akDjihhb01.0-33.0UnUniversity Hospitals Samaritan Medical CenterComment on above:Performed By: #### [id number] ####[facility] ([facility])[address] [place] [address]QXI (RBC) [Entitic vol] 89.6 pUEydsoq36.0-98.0UnUniversity Hospitals Samaritan Medical CenterComment on above: Performed By: #### [id number] ####[facility] ([facility])[address] [place] [address]MZOOOFBST (10*3/UL) IN BLOOD AUTOMATED [id number] 10*3/uLNormal 150-400UnUniversity Hospitals Samaritan Medical CenterComment on above:Performed By: #### [id number] ####[facility] ([facility])[address] [place] [address]EMF (Bld) [#/Vol]2.60 10*6/uLLow4.20-5.70UnUniversity Hospitals Samaritan Medical CenterComment on above:Performed By: #### [id number] ####[facility] ([facility])[address] [place] [place] [address]CRK (Bld) [#/Vol]7.74 10*3/uLNormal4.00-10.60UnUniversity Hospitals Samaritan Medical CenterComment on above:Performed By: #### [id number] ####[facility] ([facility])[address] [address]Xaltxzwiknb distribution width (RBC) [Ratio]17.7 %High11.5-15.0UnUniversity Hospitals Samaritan Medical CenterComment on above:Performed By: #### [id number] ####[facility] ([facility])[address] [place] [address]KSMGXKSTRUB MEAN CORPUSCULAR HEMOGLOBIN CONCENTRATION (G/DL) BY BYNLJOUCN32.6 g/vKGmyhlg31.0-35.0UnUniversity Hospitals Samaritan Medical CenterComment on above:Performed By: #### [id number] ####[facility] ([facility])[address] [place] [address]Wvjlexlnqq (Bld) [Volume fraction]26.0 %Low39.0-50.0 [facility] CenterComment on above:Performed By: #### [id number] ####[facility] ([facility])[address] [place] [address]Ptjwurvrsn (Bld) [Mass/Vol]9.0 g/dLLow13.0-17.0UnUniversity Hospitals Samaritan Medical CenterComment on above:Performed By: #### [id number] ####[facility] ([facility])[address] [place] [address]ESX (RBC) [Entitic mass]31.0 zsHbwtwh63.0-33.0UnUniversity Hospitals Samaritan Medical CenterComment on above:Performed By: #### [id number] ####[facility] ([facility])[address] [place] [address]SNF (RBC) [Entitic vol] 89.7 kSOonzjb25.0-98.0UnUniversity Hospitals Samaritan Medical CenterComment on above: Performed By: #### [id number] ####[facility] ([facility])[address] [place] [address]LMWSYALZK (10*3/UL) IN BLOOD AUTOMATED [id number] 10*3/uLNormal 150-400UnUniversity Hospitals Samaritan Medical CenterComment on above:Performed By: #### [id number] ####[facility] ([facility])[address] [place] [address]VXW (Bld) [#/Vol]2.90 10*6/uLLow4.20-5.70UnUniversity Hospitals Samaritan Medical CenterComment on above:Performed By: #### [id number] ####[facility] ([facility])[address] [place] [address]ZOS (Bld) [#/Vol]8.04 10*3/uLNormal4.00-10.60UnUniversity Hospitals Samaritan Medical CenterComment on above:Performed By: #### [id number] ####[facility] ([facility])[address] [place], [place] [address]Eujabqpvbjt distribution width (RBC) [Ratio]17.7 %High11.5-15.0UnUniversity Hospitals Samaritan Medical CenterComment on above:Performed By: #### [id number] ####[facility] ([facility])[address] [address]CFFCDWCCKCR MEAN CORPUSCULAR HEMOGLOBIN CONCENTRATION (G/DL) BY MVVOFDMDG28.2 g/tGSqxhne16.0-35.0UnUniversity Hospitals Samaritan Medical CenterComment on above:Performed By: #### [id number] ####[facility] ([facility])[address] [place] [address]Rnxfmgtuip (Bld) [Volume fraction]24.3 %Low39.0-50.0 [facility] HospitalComment on above:Performed By: #### [id number] ####[facility] ([facility])[address] [address]Zwreorqgok (Bld) [Mass/Vol]8.3 g/dLLow13.0-17.0UnUniversity Hospitals Samaritan Medical CenterComment on above:Performed By: #### [id number] ####[facility] ([facility])[address] [place] [address]IDI (RBC) [Entitic mass]30.6 dgWtgfwp60.0-33.0UnUniversity Hospitals Samaritan Medical CenterComment on above:Performed By: #### [id number] ####[facility] ([facility])[address] [id number] (RBC) [Entitic vol] 89.7 sMRjuiyu90.0-98.0UnUniversity Hospitals Samaritan Medical CenterComment on above: Performed By: #### [id number] ####[facility] ([facility])[address] [place] [id number] (10*3/UL) IN BLOOD AUTOMATED [id number] 10*3/uLNormal 150-400UnUniversity Hospitals Samaritan Medical CenterComment on above:Performed By: #### [id number] ####[facility] ([facility])[address] [id number] (Bld) [#/Vol]2.71 10*6/uLLow4.20-5.70UnUniversity Hospitals Samaritan Medical CenterComment on above:Performed By: #### [id number] ####[facility] ([facility])[address] [id number] (Bld) [#/Vol]7.39 10*3/uLNormal4.00-10.60UnUniversity Hospitals Samaritan Medical CenterComment on above:Performed By: #### [id number] ####[facility] ([facility])[address] [id number] distribution width (RBC) [Ratio]15.8 %High11.5-15.0UnUniversity Hospitals Samaritan Medical CenterComment on above:Performed By: #### [id number] ####[facility] ([facility])[address] [id number] MEAN CORPUSCULAR HEMOGLOBIN CONCENTRATION (G/DL) BY HWEAAEKSH37.9 g/pDBugffz16.0-35.0UnUniversity Hospitals Samaritan Medical CenterComment on above:Performed By: #### [id number] ####[facility] [facility])[address] [place] [address]Gflgdqcauf (Bld) [Volume fraction]22.7 %Low39.0-50.0 [facility] HospitalComment on above:Performed By: #### [id number] ####[facility] ([facility])[address], [place] [address]Ljtlyhsitv (Bld) [Mass/Vol]7.7 g/dLLow13.0-17.0UnUniversity Hospitals Samaritan Medical CenterComment on above:Performed By: #### [id number] ####[facility] ([facility])[address], [place] [address]ECU (RBC) [Entitic mass]31.0 vgEffirw11.0-33.0UnUniversity Hospitals Samaritan Medical CenterComment on above:Performed By: #### [id number] ####[facility] ([facility])[address], [place] [address]QLU (RBC) [Entitic vol] 91.5 oNRiynfx80.0-98.0UnUniversity Hospitals Samaritan Medical CenterComment on above: Performed By: #### [id number] ####[facility] ([facility])[address] [address]YYGLFGACE (10*3/UL) IN BLOOD AUTOMATED [id number] 10*3/uLNormal 150-400UnUniversity Hospitals Samaritan Medical CenterComment on above:Performed By: #### [id number] ####[facility] ([facility])[address] [address]SRK (Bld) [#/Vol]2.48 10*6/uLLow4.20-5.70UnUniversity Hospitals Samaritan Medical CenterComment on above:Performed By: #### [id number] ####[facility] ([facility])[address] [address]CCQ (Bld) [#/Vol]8.90 10*3/uLNormal4.00-10.60UnUniversity Hospitals Samaritan Medical CenterComment on above:Performed By: #### [id number] ####[facility] ([facility])[address], [place] [address]Xbaybgmwrzo distribution width (RBC) [Ratio]15.8 %High11.5-15.0UnUniversity Hospitals Samaritan Medical CenterComment on above:Performed By: #### [id number] ####[facility] ([facility])[address], [place] [address]NSIJBOJWATS MEAN CORPUSCULAR HEMOGLOBIN CONCENTRATION (G/DL) BY SNTGWCMMB83.0 g/iGPtiqvg82.0-35.0UnUniversity Hospitals Samaritan Medical CenterComment on above:Performed By: #### [id number] ####[facility] ([facility])[address], [place] [address]Wqpadfzves (Bld) [Volume fraction]23.7 %Low39.0-50.0 [facility] HospitalComment on above:Performed By: #### [id number] ####[facility] ([facility])[address], [place] [address]Zrvyyfuhqw (Bld) [Mass/Vol]8.3 g/dLLow13.0-17.0UnUniversity Hospitals Samaritan Medical CenterComment on above:Performed By: #### [id number] ####[facility] ([facility])[address] [place] [address]ZEQ (RBC) [Entitic mass]31.7 foNqccca82.0-33.0UnUniversity Hospitals Samaritan Medical CenterComment on above:Performed By: #### [id number] ####[facility] ([facility])[address] [place] [address]QDN (RBC) [Entitic vol] 90.5 dKWmrwyc89.0-98.0UnUniversity Hospitals Samaritan Medical CenterComment on above: Performed By: #### [id number] ####[facility] ([facility])[address] [place] [address]XGQTUUXVM (10*3/UL) IN BLOOD AUTOMATED [id number] 10*3/uLNormal 150-400UnUniversity Hospitals Samaritan Medical CenterComment on above:Performed By: #### [id number] ####[facility] ([facility])[address] [place] [address]FOZ (Bld) [#/Vol]2.62 10*6/uLLow4.20-5.70UnUniversity Hospitals Samaritan Medical CenterComment on above:Performed By: #### [id number] ####[facility] ([facility])[address] [place] [address]TLS (Bld) [#/Vol]10.11 10*3/uLNormal4.00-10.60UnUniversity Hospitals Samaritan Medical CenterComment on above:Performed By: #### [id number] ####[facility] ([facility])[address] [place] [address]BUDMRUGEQAPBF METABOLIC PANELon 07-66-1247Ctkykoa [Mass/Vol]3.1 g/dLLow3.5-5.7UnUniversity Hospitals Samaritan Medical CenterComment on above:Performed By: #### [id number] ####[facility] ([facility])[address] [place], [place] [address]NKT [Catalytic activity/Vol]54 U/L Pjivrp07-488BozefhklylUniversity Hospitals Samaritan Medical CenterComment on above:Performed By: #### [id number] ####[facility] ([facility])[address] [place], [place] [address]WFF [Catalytic activity/Vol]27 U/LNormal7-52UnUniversity Hospitals Samar[facility] Medical Center Comment on above:Performed By: #### [id number] ####[facility] ([facility])[address] [place], [place] [address]Yspho gap [Moles/Vol]9 mmol/LNormal7-20UnUniversity Hospitals Samaritan Medical CenterComment on above:Performed By: #### [id number] ####[facility] ([facility])[address] [place], [place] [address]FKD [Catalytic activity/Vol]19 U/FAyoopu11-33QsrdmsimphUniversity Hospitals Samaritan Medical CenterComment on above:Performed By: #### [id number] ####[facility] ([facility])[address] [place], [place] [address]Zknmjxrvf [Mass/Vol]2.8 mg/dLHigh0.3-1.0UnUniversity Hospitals Samaritan Medical CenterComment on above:Performed By: #### [id number] ####[facility] ([facility])[address] [place], [place] [address]Suavzhl [Mass/Vol]8.1 mg/dLLow8.6-10.3 [facility] HospitalComment on above:Performed By: #### [id number] ####[facility] ([facility])[address] [place], [place] [address]Buakyfiy [Moles/Vol]99 mmol/VSymitd20-695OyiegrqrtaUniversity Hospitals Samaritan Medical CenterComment on above:Performed By: #### [id number] ####[facility] ([facility])[address] [place], [place] [address]KN3 [Moles/Vol]29 mmol/UOofrby75-89WjufjgtawtUniversity Hospitals Samaritan Medical CenterComment on above:Performed By: #### [id number] ####[facility] ([facility])[address] [place] [address]Upnefirgjw [Mass/Vol]1.36 mg/dLHigh 0.70-1.30UnUniversity Hospitals Samaritan Medical CenterComment on above:Performed By: #### [id number] ####[facility] ([facility])[address] [place] [address]CCDJGGHKEJ FILTRATION RATE ML/MIN/1.73 SQ M.OSPHZYQLN84.3 mL/min/1.73m*2Normal>60.0 [facility] HospitalComment on above:Result Comment: [facility]???s estimated glomerular filtration rate (eG FR) [...] group of individuals. Performed By: #### [id number] ####[facility] ([facility])[address] [place] [address]Kpwoglr [Mass/Vol]102 mg/gKCgdz48-688HajzjkwjroUniversity Hospitals Samaritan Medical CenterComment on above:Performed By: #### [id number] ####[facility] ([facility])[address] [place] [address]Bdghstevw [Moles/Vol]4.1 mmol/LNormal 3.5-5.1UnUniversity Hospitals Samaritan Medical CenterComment on above:Performed By: #### [id number] ####[facility] ([facility])[address] [place] [address]Hdevnor [Mass/Vol]4.9 g/dLLow6.0-8.3UnUniversity Hospitals Samaritan Medical CenterComment on above: Performed By: #### [id number] ####[facility] ([facility])[address] [place] [address]Ocxaif [Moles/Vol]133 mmol/WFtn765-743QzbdgnkbnhUniversity Hospitals Samaritan Medical CenterComment on above:Performed By: #### [id number] ####[facility] ([facility])[address] [place] [address]Fgss nitrogen [Mass/Vol]40 mg/dLHigh 7-25UnUniversity Hospitals Samaritan Medical CenterComment on above:Performed By: #### [id number] ####[facility] ([facility])[address] [place] [address]EIDY NITROGEN/CREATININE (MASS RATIO) IN SER/PLAS29.4NormalUniversOhio State University Wexner Medical CenterComment on above:Performed By: #### [id number] ####[facility] ([facility])[address] [place] [address]JLF ABDOMEN PELVIS W IV CONTRASTon 98-57-0172QBU ABDOMEN PELVIS W IV CONTRASTNormalUniSt. Rita's HospitalDIGOXIN LEVELon 40-53-5543TBBABTW (NG/ML) IN SER/PLAS2.3 ng/mLCritically high0.7-2UnUniversity Hospitals Samaritan Medical CenterComment on above:Performed By: #### [id number] ####[facility] ([facility])[address] [place] [address]IEPNYZMEDG AND HEMATOCRIT, BLOODon 51-44-3248Udpggzimoo (Bld) [Volume fraction]22.8 %Low 39.0-50.0UnUniversity Hospitals Samaritan Medical CenterComment on above:Performed By: #### [id number] ####[facility] ([facility])[address] [place] [address] Hemoglobin (Bld) [Mass/Vol]7.9 g/dLLow13.0-17.0UnUniversity Hospitals Samaritan Medical CenterComment on above:Performed By: #### [id number] ####[facility] ([facility])[address] [place] [address]VYAFMEHMUdp 62-66-4076Hfpycbwsy [Mass/Vol]2.3 mg/dLNormal1.9-2.7UnUniversity Hospitals Samaritan Medical CenterComment on above:Performed By: #### [id number] ####[facility] ([facility])[address] [place] [address]WVOMUQBYUMjb 36-37-5524Uxpxzwppq [Mass/Vol]2.6 mg/dLNormal 2.5-5.0UnUniversity Hospitals Samaritan Medical CenterComment on above:Performed By: #### [id number] ####[facility] ([facility])[address] [address]MCOld 23-25-94[address]Bvcrkwffbzb distribution width (RBC) [Ratio]15.8 %High11.5-15.0 [facility] HospitalComment on above:Performed By: #### [id number] ####[facility] ([facility])[address] [place] [address]EWGXTUCCTIL MEAN CORPUSCULAR HEMOGLOBIN CONCENTRATION (G/DL) BY EJZNBONRK76.2 g/zSYfmo12.0-35.0 [facility] HospitalComment on above:Performed By: #### [id number] ####[facility] ([facility])[address] [place] [address]Cnmbdunjqz (Bld) [Volume fraction]24.4 %Low39.0-50.0UnUniversity Hospitals Samaritan Medical CenterComment on above:Performed By: #### [id number] ####[facility] ([facility])[address] [place] [address]Axtwwaxdvl (Bld) [Mass/Vol]8.6 g/dLLow13.0-17.0UnUniversity Hospitals Samaritan Medical CenterComment on above:Performed By: #### [id number] ####[facility] ([facility])[address] [place] [address]BIW (RBC) [Entitic mass] 31.5 zcJhjlhu04.0-33.0UnUniversity Hospitals Samaritan Medical CenterComment on above: Performed By: #### [id number] ####[facility] ([facility])[address] [place] [address]BYX (RBC) [Entitic vol]89.4 xPHbmdho18.0-98.0UnUniversity Hospitals Samaritan Medical CenterComment on above:Performed By: #### [id number] ####[facility] ([facility])[address] [place] [address]WYZFCVIKZ (10*3/UL) IN BLOOD AUTOMATED [id number] 10*3/sPCosakn900-170BwzyeuhclcUniversity Hospitals Samaritan Medical Center Comment on above:Performed By: #### [id number] ####[facility] ([facility])[address] [place] [address]TXI (Bld) [#/Vol]2.73 10*6/uLLow4.20-5.70UnUniversity Hospitals Samaritan Medical CenterComment on above:Performed By: #### [id number] ####[facility] ([facility])[address], [place] [address]QBN (Bld) [#/Vol]12.23 10*3/uLHigh4.00-10.60UnUniversity Hospitals Samaritan Medical CenterComment on above: Performed By: #### [id number] ####[facility] ([facility])[address], [place] [address]Btwntnjkxjy distribution width (RBC) [Ratio]15.8 %High 11.5-15.0UnUniversity Hospitals Samaritan Medical CenterComment on above:Performed By: #### [id number] ####[facility] ([facility])[address] [place] [address] ERYTHROCYTE MEAN CORPUSCULAR HEMOGLOBIN CONCENTRATION (G/DL) BY XLMTSJSGN52.9 g/bODtvzou82.0-35.0UnUniversity Hospitals Samaritan Medical CenterComment on above:Performed By: #### [id number] ####[facility] ([facility])[address], [place] [address]Kzigolksku (Bld) [Volume fraction]26.1 %Low39.0-50.0UnUniversity Hospitals Samaritan Medical CenterComment on above:Performed By: #### [id number] ####[facility] ([facility])[address], [place] [address]Xrknmcdkgl (Bld) [Mass/Vol]9.1 g/dLLow 13.0-17.0UnUniversity Hospitals Samaritan Medical CenterComment on above:Performed By: #### [id number] ####[facility] ([facility])[address] [place] [address]ONV (RBC) [Entitic mass]31.5 ixBqvaaq48.0-33.0UnUniversity Hospitals Samaritan Medical CenterComment on above:Performed By: #### [id number] ####[facility] ([facility])[address] [place] [address]LDK (RBC) [Entitic vol]90.3 jYMcqqdm16.0-98.0UnUniversity Hospitals Samaritan Medical CenterComment on above:Performed By: #### [id number] ####[facility] ([facility])[address] [place] [address]BAGENUJCV (10*3/UL) IN BLOOD AUTOMATED HOFKQ036 10*3/nCEnbrln497-601KkgzvyiqrmUniversity Hospitals Samaritan Medical Center Comment on above:Performed By: #### [id number] ####[facility] ([facility])[address] [place] [address]NEZ (Bld) [#/Vol]2.89 10*6/uLLow4.20-5.70UnUniversity Hospitals Samaritan Medical CenterComment on above:Performed By: #### [id number] ####[facility] ([facility])[address] [place] [address]YOE (Bld) [#/Vol]16.83 10*3/uLHigh4.00-10.60UnUniversity Hospitals Samaritan Medical CenterComment on above: Performed By: #### [id number] ####[facility] ([facility])[address], [place] [address]Plxnyuwhfxp distribution width (RBC) [Ratio]15.9 %High 11.5-15.0UnUniversity Hospitals Samaritan Medical CenterComment on above:Performed By: #### [id number] ####[facility] ([facility])[address] [place] [address] ERYTHROCYTE MEAN CORPUSCULAR HEMOGLOBIN CONCENTRATION (G/DL) BY KSELUBOWE26.1 g/mHJmegfe70.0-35.0UnUniversity Hospitals Samaritan Medical CenterComment on above:Performed By: #### [id number] ####[facility] ([facility])[address] [place] [address]Kwligdsaik (Bld) [Volume fraction]26.4 %Low39.0-50.0UnUniversity Hospitals Samaritan Medical CenterComment on above:Performed By: #### [id number] ####[facility] ([facility])[address] [place] [address]Ddcijkxoky (Bld) [Mass/Vol]9.0 g/dLLow 13.0-17.0UnUniversity Hospitals Samaritan Medical CenterComment on above:Performed By: #### [id number] ####[facility] ([facility])[address] [place] [address]EEV (RBC) [Entitic mass]31.5 pzAwqhvu66.0-33.0UnUniversity Hospitals Samaritan Medical CenterComment on above:Performed By: #### [id number] ####[facility] ([facility])[address] [place] [address]NPN (RBC) [Entitic vol]92.3 eEWcubaw37.0-98.0UnUniversity Hospitals Samaritan Medical CenterComment on above:Performed By: #### [id number] ####[facility] ([facility])[address] [place] [address]TWKDREAZW (10*3/UL) IN BLOOD AUTOMATED [id number] 10*3/zMTnaxgr837-260ZkwzgvihbsUniversity Hospitals Samaritan Medical Center Comment on above:Performed By: #### [id number] ####[facility] ([facility])[address] [place] [address]EVY (Bld) [#/Vol]2.86 10*6/uLLow4.20-5.70UnUniversity Hospitals Samaritan Medical CenterComment on above:Performed By: #### [id number] ####[facility] ([facility])[address] [place] [address]VUS (Bld) [#/Vol]14.22 10*3/uLHigh4.00-10.60UnUniversity Hospitals Samaritan Medical CenterComment on above: Performed By: #### [id number] ####[facility] ([facility])[address], [place] [address]SEVFAZBB, URINE, RANDOMon 28-42-3594Jlkztxvp (U) [Moles/Vol] mmol/DHjy469-385VzmiiqgduyUniversity Hospitals Samaritan Medical CenterComment on above:Performed By: #### [id number] ####[facility] ([facility])[address] [place] [address] COMPREHENSIVE METABOLIC PANELon 56-52-76[address]Kdguqyg [Mass/Vol]3.3 g/dLLow3.5-5.7 [facility] HospitalComment on above:Performed By: #### [id number] ####[facility] ([facility])[address], [place] [address]MGT [Catalytic activity/Vol]58 U/CPeqaeq18-972YbswtxihxrUniversity Hospitals Samaritan Medical CenterComment on above:Performed By: #### [id number] ####[facility] ([facility])[address], [place] [address]YIH [Catalytic activity/Vol]32 U/LNormal7-52UnUniversity Hospitals Samaritan Medical CenterComment on above:Performed By: #### [id number] ####[facility] ([facility])[address], [place] [address]Udyas gap [Moles/Vol]12 mmol/L Normal7-20UnUniversity Hospitals Samaritan Medical CenterComment on above:Performed By: #### [id number] ####[facility] ([facility])[address], [place] [address]GUR [Catalytic activity/Vol]24 U/JYkzefs01-44RizxqxungdUniversity Hospitals Samaritan Medical Center Comment on above:Performed By: #### [id number] ####[facility] ([facility])[address] [place], [place] [address]Ntzphbaif [Mass/Vol]3.0 mg/dLHigh0.3-1.0UnUniversity Hospitals Samaritan Medical CenterComment on above:Performed By: #### [id number] ####[facility] ([facility])[address] [place], [place] [address]Eganlht [Mass/Vol]8.5 mg/dLLow8.6-10.3UnUniversity Hospitals Samaritan Medical CenterComment on above:Performed By: #### [id number] ####[facility] ([facility])[address] [place] [address] Chloride [Moles/Vol]99 mmol/QFsfksm33-203ZbftqvyextUniversity Hospitals Samaritan Medical Center Comment on above:Performed By: #### [id number] ####[facility] ([facility])[address] [place], [place] [address]ZG8 [Moles/Vol]28 mmol/XFcghzw66-15FzeasajrscUniversity Hospitals Samaritan Medical CenterComment on above:Performed By: #### [id number] ####[facility] ([facility])[address] [place], [place] [address]Mtoczcfnow [Mass/Vol]2.43 mg/dL High0.70-1.30UnUniversity Hospitals Samaritan Medical CenterComment on above:Performed By: #### [id number] ####[facility] ([facility])[address] [place] [address] GLOMERULAR FILTRATION RATE ML/MIN/1.73 SQ M.ARKYSNEDB95.1 mL/min/1.73m*2Low>60.0 [facility] HospitalComment on above:Result Comment: [facility]???s estimated glomerular filtration rate (eG FR) [...] group of individuals. Performed By: #### [id number] ####[facility] ([facility])[address] [place], [place] [address]Wegbedw [Mass/Vol]104 mg/oGOmzo10-319IdoxkgtnqmUniversity Hospitals Samaritan Medical CenterComment on above:Performed By: #### [id number] ####[facility] ([facility])[address] [address]Aeojlymjy [Moles/Vol]4.1 mmol/LNormal 3.5-5.1UnUniversity Hospitals Samaritan Medical CenterComment on above:Performed By: #### [id number] ####[facility] ([facility])[address] [address]Dnfkvsx [Mass/Vol]5.2 g/dLLow6.0-8.3UnUniversity Hospitals Samaritan Medical CenterComment on above: Performed By: #### [id number] ####[facility] ([facility])[address] [address]Bjejwf [Moles/Vol]135 mmol/ZNbw620-152MiphbqtjewUniversity Hospitals Samaritan Medical CenterComment on above:Performed By: #### [id number] ####[facility] ([facility])[address] [place] [address]Eqie nitrogen [Mass/Vol]52 mg/dLHigh 7-25UnUniversity Hospitals Samaritan Medical CenterComment on above:Performed By: #### [id number] ####[facility] ([facility])[address] [place] [address]TVWT NITROGEN/CREATININE (MASS RATIO) IN SER/PLAS21.4NormalUniversOhio State University Wexner Medical CenterComment on above:Performed By: #### [id number] ####[facility] ([facility])[address] [place] [address]REHZKFKfj 72-55-8752CRBLAFIUhloce [facility] HospitalCREATININE, URINE, RANDOMon 02-24-2025 Creatinine (U) [Mass/Vol]170.0 mg/uYKfmlkw36-318WlrpbsjireUniversity Hospitals Samaritan Medical CenterComment on above:Performed By: #### [id number] ####[facility] ([facility])[address] [place] [address]FAPAHNINKiv 47-99-8502Xltbxgozd [Mass/Vol]2.1 mg/dLNormal1.9-2.7UnUniversity Hospitals Samaritan Medical CenterComment on above:Performed By: #### [id number] ####[facility] ([facility])[address] [place] [address]SWBNTOJGLE, URINEon 05-86-74[address]UHFEPEPJIC, SZYWX038 mOsm/kg Amzbsu64-7111QihwodcqzrUniversity Hospitals Samaritan Medical CenterComment on above:Result Comment: Test Performed by [address] [address] - Released 02/24/2025 17:40Performed By: #### [id number] ####[facility] [id number] [place], [place] [address]HHRMGUVPUVac 58-92-5231Vdpuezmdz [Mass/Vol] 5.4 mg/dLHigh2.5-5.0UnUniversity Hospitals Samaritan Medical CenterComment on above: Performed By: #### [id number] ####[facility] ([facility])[address] [place] [address]ZIPXEYYHY, URINE, RANDOMon 23-00-9642Anrgammgf (U) [Moles/Vol]107 mmol/LNormalUnUniversity Hospitals Samaritan Medical CenterComment on above: Performed By: #### [id number] ####[facility] ([facility])[address] [place] [address]MTXHHP, URINE, RANDOMon 60-55-0615Uhahen (U) [Moles/Vol]15 mmol/LNormalUnUniversity Hospitals Samaritan Medical CenterComment on above:Performed By: #### [id number] ####[facility] ([facility])[address] [place] [address] URINALYSIS WITH MICROSCOPICon [id number], TOTAL PRESENCE IN URINE NegativeNormalNegativeUnUniversity Hospitals Samaritan Medical CenterComment on above: Performed By: #### [id number] ####[facility] ([facility])[address], [place] [address]NHXLQ IN URINEPresentAbnormalNone SeenUnUniversity Hospitals Samaritan Medical CenterComment on above:Performed By: #### [id number] ####[facility] ([facility])[address] [place] [place], [place] [address]Eefsugg (U)CloudyAbnormalClear [facility] HospitalComment on above:Performed By: #### [id number] ####[facility] ([facility])[address] [place], [place] [address]Vqqgu (U)Yellow NormalColorless, Yellow, Light-YellowUnUniversity Hospitals Samaritan Medical CenterComment on above:Performed By: #### [id number] ####[facility] ([facility])[address], [place] [address]MLRYSYM (MG/DL) IN URINENormalNormalNormalUniversOhio State University Wexner Medical CenterComment on above:Performed By: #### [id number] ####[facility] ([facility])[address], [place] [address]HVJFFRUMAF PRESENCE IN URINELargeAbnormalNegativeUnUniversity Hospitals Samaritan Medical CenterComment on above: Performed By: #### [id number] ####[facility] ([facility])[address], [place] [address]WJSIGTY CASTS GRADED/LPF IN URINE SEDIMENT BY MICROSCOPY3-5 Abnormal0-2UnUniversity Hospitals Samaritan Medical CenterComment on above:Performed By: #### [id number] ####[facility] ([facility])[address] [place] [address] Ketones Ql (U)NegativeNormalNegativeUnUniversity Hospitals Samaritan Medical CenterComment on above:Performed By: #### [id number] ####[facility] ([facility])[address], [place] [address]IABKPPROU ESTERASE PRESENCE IN URINE BY TEST STRIPModerate AbnormalNegativeLancaster Municipal HospitalComment on above:Performed By: #### [id number] ####[facility] ([facility])[address], [place] [address]WNFSB (#/LPF) IN URINE SEDIMENTModerateAbnormalNone Seen, Occasional, Few [facility] HospitalComment on above:Performed By: #### [id number] ####[facility] ([facility])[address] [place], [place] [address]EUCEUPZ PRESENCE IN URINENegativeNormalNegativeUnUniversity Hospitals Samaritan Medical CenterComment on above:Performed By: #### [id number] ####[facility] ([facility])[address] [place], [place] [address]sV (U)5.5 [pH]Normal5.0-8.0UnUniversity Hospitals Samaritan Medical CenterComment on above:Performed By: #### [id number] ####[facility] ([facility])[address] [place], [place] [address]Mycualb (U) [Mass/Vol]30 mg/dLAbnormal NegativeUnUniversity Hospitals Samaritan Medical CenterComment on above:Performed By: #### [id number] ####[facility] ([facility])[address] [place], [place] [address]YXW (#/HPF) IN URINE SEDIMENT>20AbnormalNone Seen, 0-2UnUniversity Hospitals Samaritan Medical CenterComment on above:Performed By: #### [id number] ####[facility] ([facility])[address] [place], [place] [address]Tqsgzvms gravity (U) [Rel density] 1.898Bcxt7.010-1.030UnUniversity Hospitals Samaritan Medical CenterComment on above: Performed By: #### [id number] ####[facility] ([facility])[address] [place], [place] [address]CDTVONYI EPITHELIAL CELLS (#/LPF) IN URINE SEDIMENTModerate AbnormalNone Seen, Occasional, FewUnUniversity Hospitals Samaritan Medical CenterComment on above:Performed By: #### [id number] ####[facility] ([facility])[address] [place], [place] [address]MCQRLXHQBEPD (MG/DL) IN URINENormalNormalNormalUniversOhio State University Wexner Medical CenterComment on above:Performed By: #### [id number] ####[facility] ([facility])[address] [place], [place] [address]MVQ (LEUKOCYTE) (#/HPF) IN URINE QUFSRELU11-97EjpgymhjGwrb Seen, 0-2UnUniversity Hospitals Samaritan Medical Center Comment on above:Performed By: #### [id number] ####[facility] ([facility])[address] [place] [address]tw 23-89-904922DpwdejHjnmhkntev of [place] Medical CenterBASIC METABOLIC PANELon 11-04-90[address]Rjznh gap [Moles/Vol]15 mmol/LNormal7-20 [facility] HospitalComment on above:Performed By: #### [id number] ####[facility] ([facility])[address] [place], [place] [address]Fmazqkn [Mass/Vol]9.1 mg/dLNormal8.6-10.3UnUniversity Hospitals Samaritan Medical CenterComment on above:Performed By: #### [id number] ####[facility] ([facility])[address] [place], [place] [address]Puhsshze [Moles/Vol]102 mmol/KVywjps66-840YpcpqbyjxcUniversity Hospitals Samaritan Medical CenterComment on above:Performed By: #### [id number] ####[facility] ([facility])[address] [place], [place] [address]FO4 [Moles/Vol]25 mmol/LNormal 21-31UnUniversity Hospitals Samaritan Medical CenterComment on above:Performed By: #### [id number] ####[facility] ([facility])[address] [place], [place] [address]Ppscqhdhqg [Mass/Vol]2.01 mg/dLHigh0.70-1.30UnUniversity Hospitals Samaritan Medical CenterComment on above:Performed By: #### [id number] ####[facility] ([facility])[address] [place], [place] [address]XGXWVUHALV FILTRATION RATE ML/MIN/1.73 SQ M.FXYKWOQJI24.7 mL/min/1.73m*2Low>60.0UnUniversity Hospitals Samaritan Medical CenterComment on above:Result Comment: [facility]???s estimated glomerular filtration rate (eGFR) will [...] anyone group of individuals.Performed By: #### [id number] ####[facility] ([facility])[address] [place], [place] [address]Lalezuh [Mass/Vol]128 mg/xBHmrd17-927ZefbjbvnvtUniversity Hospitals Samaritan Medical CenterComment on above:Performed By: #### [id number] ####[facility] ([facility])[address] [facility] SPECIAL[facility] HOSPITALUriel[place], [place] [address]Hbstsuyuk [Moles/Vol]4.5 mmol/L Normal3.5-5.1UnUniversity Hospitals Samaritan Medical CenterComment on above:Performed By: #### [id number] ####[facility] ([facility])[address] [place] [address] Sodium [Moles/Vol]137 mmol/RFfnhsl679-762LtklzgzhpkUniversity Hospitals Samaritan Medical Center Comment on above:Performed By: #### [id number] ####[facility] ([facility])[address] [place], [place] [address]Hxzw nitrogen [Mass/Vol]35 mg/dLHigh7-25UnUniversity Hospitals Samaritan Medical CenterComment on above:Performed By: #### [id number] ####[facility] ([facility])[address] [place] [place], [place] [address]CQDC NITROGEN/CREATININE (MASS RATIO) IN SER/PLAS17.4NormalUniSt. Rita's HospitalComment on above:Performed By: #### [id number] ####[facility] ([facility])[address] [place], [place] [address]HMRMX CULTUREon 16-37-5211Jlvfiuei identified Cx Nom (Bld)No growth at 5 daysNormalUniSt. Rita's HospitalComment on above: Performed By: #### [id number] ####[facility] ([facility])[address] [place] [address]Hqqmrzwo identified Cx Nom (Bld)No growth at 5 daysNormal [facility] HospitalComment on above:Order Comment: From a different site than #1.Performed By: #### [id number] ####[facility] ([facility])[address] [place] [address]ALPad 37-01-4323Tijyqkxkdrd distribution width (RBC) [Ratio]15.9 %High11.5-15.0UnUniversity Hospitals Samaritan Medical CenterComment on above:Performed By: #### [id number] ####[facility] ([facility])[address] [place] [address]CQCVYHIYFIH MEAN CORPUSCULAR HEMOGLOBIN CONCENTRATION (G/DL) BY UZJDLCBGU99.6 g/xJGwqnwp36.0-35.0UnUniversity Hospitals Samaritan Medical CenterComment on above:Performed By: #### [id number] ####[facility] ([facility])[address] [facility] [place] [address]Nrrofvgvdj (Bld) [Volume fraction]25.4 %Low39.0-50.0UnUniversity Hospitals Samaritan Medical CenterComment on above: Performed By: #### [id number] ####[facility] ([facility])[address] [place] [address]Jssginwseo (Bld) [Mass/Vol]8.8 g/dLLow13.0-17.0UnUniversity Hospitals Samaritan Medical CenterComment on above:Performed By: #### [id number] ####[facility] ([facility])[address] [facility] [place] [address]RZH (RBC) [Entitic mass] 31.5 yvOgfauq80.0-33.0UnUniversity Hospitals Samaritan Medical CenterComment on above: Performed By: #### [id number] ####[facility] ([facility])[address] [place] [address]KPQ (RBC) [Entitic vol]91.0 xJBgrfxt80.0-98.0UnUniversity Hospitals Samaritan Medical CenterComment on above:Performed By: #### [id number] ####[facility] ([facility])[address] [place], [place] [address]XHLIJBSIJ (10*3/UL) IN BLOOD AUTOMATED [id number] 10*3/eLCfdpeb455-058ThsafeiampUniversity Hospitals Samaritan Medical Center Comment on above:Performed By: #### [id number] ####[facility] ([facility])[address] [place], [place] [address]MMJ (Bld) [#/Vol]2.79 10*6/uLLow4.20-5.70UnUniversity Hospitals Samaritan Medical CenterComment on above:Performed By: #### [id number] ####[facility] ([facility])[address] [place], [place] [address]NOW (Bld) [#/Vol]14.02 10*3/uLHigh4.00-10.60UnUniversity Hospitals Samaritan Medical CenterComment on above: Performed By: #### [id number] ####[facility] ([facility])[address] [place], [place] [address]Bzfyfrsijwe distribution width (RBC) [Ratio]15.9 %High 11.5-15.0UnUniversity Hospitals Samaritan Medical CenterComment on above:Performed By: #### [id number] ####[facility] ([facility])[address] [place] [address] ERYTHROCYTE MEAN CORPUSCULAR HEMOGLOBIN CONCENTRATION (G/DL) BY DZEBUGQHC26.4 g/fQWjte44.0-35.0UnUniversity Hospitals Samaritan Medical CenterComment on above:Performed By: #### [id number] ####[facility] ([facility])[address] [place] [address] Hematocrit (Bld) [Volume fraction]28.0 %Low39.0-50.0UnUniversity Hospitals Samaritan Medical CenterComment on above:Performed By: #### [id number] ####[facility] ([facility])[address] [place], [place] [address]Ujqtfkgrvn (Bld) [Mass/Vol]9.9 g/dLLow 13.0-17.0University [facility] Reina Medical CenterComment on above:Performed By: #### [id number] ####[facility] ([facility])[address] [place] [address]AWK (RBC) [Entitic mass]31.6 bxKcaigi00.0-33.0UnUniversity Hospitals Samaritan Medical CenterComment on above:Performed By: #### [id number] ####[facility] ([facility])[address] [address]KFL (RBC) [Entitic vol]89.5 dVBpxcaq89.0-98.0UnUniversity Hospitals Samaritan Medical CenterComment on above:Performed By: #### [id number] ####[facility] ([facility])[address] [place] [address]GUZAWGJUJ (10*3/UL) IN BLOOD AUTOMATED [id number] 10*3/sHSrechk376-172IeqxiuzymyUniversity Hospitals Samaritan Medical Center Comment on above:Performed By: #### [id number] ####[facility] ([facility])[address] [place] [address]SIL (Bld) [#/Vol]3.13 10*6/uLLow4.20-5.70UnUniversity Hospitals Samaritan Medical CenterComment on above:Performed By: #### [id number] ####[facility] ([facility])[address] [place] [address]MVY (Bld) [#/Vol]16.62 10*3/uLHigh4.00-10.60UnUniversity Hospitals Samaritan Medical CenterComment on above: Performed By: #### [id number] ####[facility] ([facility])[address] [place], [place] [address]Czrcjujbtzy distribution width (RBC) [Ratio]15.8 %High 11.5-15.0UnUniversity Hospitals Samaritan Medical CenterComment on above:Performed By: #### [id number] ####[facility] ([facility])[address] [place] [address] ERYTHROCYTE MEAN CORPUSCULAR HEMOGLOBIN CONCENTRATION (G/DL) BY PKTWQWXUZ34.3 g/pBIepk79.0-35.0UnUniversity Hospitals Samaritan Medical CenterComment on above:Performed By: #### [id number] ####[facility] ([facility])[address] [place] [address] Hematocrit (Bld) [Volume fraction]29.5 %Low39.0-50.0[facility] HospitalComment on above:Performed By: #### [id number] ####[facility] ([facility])[address] [place] [address]Sccpvdbxju (Bld) [Mass/Vol]10.4 g/dL Low13.0-17.0UnUniversity Hospitals Samaritan Medical CenterComment on above:Performed By: #### [id number] ####[facility] ([facility])[address] [place] [address]YQM (RBC) [Entitic mass]31.6 jqYoptdf79.0-33.0UnUniversity Hospitals Samaritan Medical Center Comment on above:Performed By: #### [id number] ####[facility] ([facility])[address] [place] [address]VCC (RBC) [Entitic vol]89.7 uLQbwulf54.0-98.0 [facility] HospitalComment on above:Performed By: #### [id number] ####[facility] ([facility])[address] [place] [address]FLKCOVWSF (10*3/UL) IN BLOOD AUTOMATED [id number] 10*3/tCGubkkf546-298VbunkwtugpUniversity Hospitals Samaritan Medical CenterComment on above:Performed By: #### [id number] ####[facility] ([facility])[address] [place] [address]YQL (Bld) [#/Vol]3.29 10*6/uLLow 4.20-5.70UnUniversity Hospitals Samaritan Medical CenterComment on above:Performed By: #### [id number] ####[facility] ([facility])[address] [place] [address]PMR (Bld) [#/Vol]15.65 10*3/uLHigh4.00-10.60UnUniversity Hospitals Samaritan Medical CenterComment on above:Performed By: #### [id number] ####[facility] ([facility])[address] [place], [place] [address]Qbklfyygpmm distribution width (RBC) [Ratio]15.8 %High 11.5-15.0UnUniversity Hospitals Samaritan Medical CenterComment on above:Performed By: #### [id number] ####[facility] ([facility])[address] [place] [address] ERYTHROCYTE MEAN CORPUSCULAR HEMOGLOBIN CONCENTRATION (G/DL) BY EBVFATMDZ20.0 g/eOGdiuxe11.0-35.0UnUniversity Hospitals Samaritan Medical CenterComment on above:Performed By: #### [id number] ####[facility] ([facility])[address] [place], [place] [address]Xctgksqzcp (Bld) [Volume fraction]31.1 %Low39.0-50.0UnUniversity Hospitals Samaritan Medical CenterComment on above:Performed By: #### [id number] ####[facility] ([facility])[address] [place], [place] [address]Rcaougfuvj (Bld) [Mass/Vol]10.9 g/dL Low13.0-17.0UnUniversity Hospitals Samaritan Medical CenterComment on above:Performed By: #### [id number] ####[facility] ([facility])[address] [place], [place] [address]FJZ (RBC) [Entitic mass]31.5 bmKqmawp13.0-33.0UnUniversity Hospitals Samar[facility] Medical Center Comment on above:Performed By: #### [id number] ####[facility] ([facility])[address] [place], [place] [address]PQT (RBC) [Entitic vol]89.9 yAZjvprf28.0-98.0 [facility] HospitalComment on above:Performed By: #### [id number] ####[facility] ([facility])[address] [place], [place] [address]EYEYAYIGL (10*3/UL) IN BLOOD AUTOMATED [id number] 10*3/qEBzfddg009-279ColqqltnbyUniversity Hospitals Samaritan Medical CenterComment on above:Performed By: #### [id number] ####[facility] ([facility])[address] [place] [address]PGW (Bld) [#/Vol]3.46 10*6/uLLow 4.20-5.70UnUniversity Hospitals Samaritan Medical CenterComment on above:Performed By: #### [id number] ####[facility] ([facility])[address] [place], [place] [address]JBP (Bld) [#/Vol]14.82 10*3/uLHigh4.00-10.60UnUniversity Hospitals Samaritan Medical CenterComment on above:Performed By: #### [id number] ####[facility] ([facility])[address] [place], [place] [address]Fdxruwgicas distribution width (RBC) [Ratio]15.9 %High 11.5-15.0UnUniversity Hospitals Samaritan Medical CenterComment on above:Performed By: #### [id number] ####[facility] ([facility])[address] [place] [address] ERYTHROCYTE MEAN CORPUSCULAR HEMOGLOBIN CONCENTRATION (G/DL) BY JZXMIUACN70.6 g/hILvnywk18.0-35.0UnUniversity Hospitals Samaritan Medical CenterComment on above:Performed By: #### [id number] ####[facility] ([facility])[address] [place], [place] [address]Ncfkqavvfr (Bld) [Volume fraction]32.1 %Low39.0-50.0UnUniversity Hospitals Samaritan Medical CenterComment on above:Performed By: #### [id number] ####[facility] ([facility])[address] [place], [place] [address]Zeumqnbotv (Bld) [Mass/Vol]11.1 g/dL Low13.0-17.0UnUniversity Hospitals Samaritan Medical CenterComment on above:Performed By: #### [id number] ####[facility] ([facility])[address] [place], [place] [address]SEN (RBC) [Entitic mass]31.4 grWkgheh45.0-33.0UnUniversity Hospitals Sam[facility] Medical Center Comment on above:Performed By: #### [id number] ####[facility] ([facility])[address] [address]PAB (RBC) [Entitic vol]90.9 rXGxoibv34.0-98.0 [facility] HospitalComment on above:Performed By: #### [id number] ####[facility] ([facility])[address] [address]UCETWZRNU (10*3/UL) IN BLOOD AUTOMATED [id number] 10*3/iWStklid480-353DjotfmfzsqUniversity Hospitals Samaritan Medical CenterComment on above:Performed By: #### [id number] ####[facility] ([facility])[address] [address]EZX (Bld) [#/Vol]3.53 10*6/uLLow 4.20-5.70UnUniversity Hospitals Samaritan Medical CenterComment on above:Performed By: #### [id number] ####[facility] ([facility])[address] [address]AHN (Bld) [#/Vol]13.82 10*3/uLHigh4.00-10.60UnUniversity Hospitals Samaritan Medical CenterComment on above:Performed By: #### [id number] ####[facility] ([facility])[address] [address]DTZGUPGDFEXAR METABOLIC PANELon 67-96-3544Pdzwfxf [Mass/Vol] 3.5 g/dLNormal3.5-5.7UnUniversity Hospitals Samaritan Medical CenterComment on above: Performed By: #### [id number] ####[facility] ([facility])[address] [address]BGQ [Catalytic activity/Vol]61 U/RCrmpoh56-560AiagbieuufUniversity Hospitals Samaritan Medical CenterComment on above:Performed By: #### [id number] ####[facility] ([facility])[address] [address]QJN [Catalytic activity/Vol]32 U/L Normal7-52UnUniversity Hospitals Samaritan Medical CenterComment on above:Performed By: #### [id number] ####[facility] ([facility])[address] [place], [place] [address]Czhmj gap [Moles/Vol]16 mmol/LNormal7-20UnUniversity Hospitals Samaritan Medical CenterComment on above:Performed By: #### [id number] ####[facility] ([facility])[address] [place], [place] [address]XHF [Catalytic activity/Vol]25 U/FLkpbpl35-41RofqisxbbhUniversity Hospitals Samaritan Medical CenterComment on above:Performed By: #### [id number] ####[facility] ([facility])[address] [place], [place] [address]Rgzcnnggu [Mass/Vol]3.4 mg/dLHigh 0.3-1.0UnUniversity Hospitals Samaritan Medical CenterComment on above:Performed By: #### [id number] ####[facility] ([facility])[address] [place], [place] [address]Tvszsic [Mass/Vol]8.9 mg/dLNormal8.6-10.3UnUniversity Hospitals Samaritan Medical CenterComment on above:Performed By: #### [id number] ####[facility] ([facility])[address] [place], [place] [address]Anqkecud [Moles/Vol]101 mmol/UNzbzbw01-443YlmqqveprnUniversity Hospitals Samaritan Medical CenterComment on above:Performed By: #### [id number] ####[facility] ([facility])[address] [place], [place] [address]SP1 [Moles/Vol]24 mmol/LNormal 21-31UnUniversity Hospitals Samaritan Medical CenterComment on above:Performed By: #### [id number] ####[facility] ([facility])[address] [place], [place] [address]Tfrhxpbxxg [Mass/Vol]2.27 mg/dLHigh0.70-1.30UnUniversity Hospitals Samaritan Medical CenterComment on above:Performed By: #### [id number] ####[facility] ([facility])[address] [place], [place] [address]IZGSSXQNXE FILTRATION RATE ML/MIN/1.73 SQ M.TZAURDGUA02.6 mL/min/1.73m*2Low>60.0UnUniversity Hospitals Samaritan Medical CenterComment on above:Result Comment: [facility]???s estimated glomerular filtration rate (eGFR) will [...] anyone group of individuals.Performed By: #### [id number] ####[facility] ([facility])[address] [place], [place] [address]Bmwmhip [Mass/Vol]118 mg/kCMkpv65-034TewzggbglcUniversity Hospitals Samaritan Medical CenterComment on above:Performed By: #### [id number] ####[facility] ([facility])[address] [place], [place] [address]Qtnewulpw [Moles/Vol]4.5 mmol/L Normal3.5-5.1UnUniversity Hospitals Samaritan Medical CenterComment on above:Performed By: #### [id number] ####[facility] ([facility])[address] [place] [address] Protein [Mass/Vol]5.5 g/dLLow6.0-8.3UnUniversity Hospitals Samaritan Medical CenterComment on above:Performed By: #### [id number] ####[facility] ([facility])[address] [place], [place] [address]Uwfgrw [Moles/Vol]136 mmol/LIcoopl894-791GucjguqejzUniversity Hospitals Samaritan Medical CenterComment on above:Performed By: #### [id number] ####[facility] ([facility])[address] [place], [place] [address]Aktj nitrogen [Mass/Vol]39 mg/dLHigh 7-25UnUniversity Hospitals Samaritan Medical CenterComment on above:Performed By: #### [id number] ####[facility] ([facility])[address] [place], [place] [address]WS[facility] NITROGEN/CREATININE (MASS RATIO) IN SER/PLAS17.2NormalUnUniversity Hospitals Samaritan Medical CenterComment on above:Performed By: #### [id number] ####[facility] ([facility])[address] [place] [place], [place] [address]Jmieipzauaci/Specialist Noteon 59-84-6433Pdzsjgkdjgwx/Specialist Note [id number]#1.00[facility] LACTIC ACID WITH 4 HOUR REFLEXon 68-10-3538SPLBZON (MMOL/L) IN SER/PLAS1.8 mmol/LNormal0.5-2.2UnUniversity Hospitals Samaritan Medical CenterComment on above:Performed By: #### [id number] ####[facility] ([facility])[address] [place], [place] [id number] 68-47-6550Fwvxrgvgu [Mass/Vol]2.0 mg/dLNormal1.9-2.7UnUniversity Hospitals Samaritan Medical CenterComment on above:Performed By: #### [id number] ####[facility] ([facility])[address] [place], [place] [address]Mhkufov Recordson 65-47-1238Mfhhdry [id number]#1.00OTMercy Health [address] Rita's Medical CenterOutside Records [id number]#1.00OTMer[facility] PHOSPHORUSon 84-24-8431Nykhhrrtd [Mass/Vol]6.1 mg/dLHigh2.5-5.0UnUniversity Hospitals Samaritan Medical CenterComment on above:Performed By: #### [id number] ####[facility] ([facility])[address] [place], [place] [address]ZXKV-PQ (HEPARIN LEVEL)on 88-62-2242BXSLYTV UNFRACTIONATED (U/ML) IN PPP BY CHROMOGENIC METHOD0.55 IU/mL Normal0.3-0.7UnUniversity Hospitals Samaritan Medical CenterComment on above:Result Comment: Rivaroxaban and Apixaban will interfere with the anti Xa assay used to monitor UFH and LMWH.Performed By: #### [id number] ####[facility] ([facility])[address] [place] [address]UPRLEVV UNFRACTIONATED (U/ML) IN PPP BY CHROMOGENIC METHOD0.71 IU/mLHigh0.3-0.7UnUniversity Hospitals Samaritan Medical CenterComment on above: Result Comment: Rivaroxaban and Apixaban will interfere with the anti Xa assay used to monitor UFH and LMWH.Performed By: #### [id number] ####[facility] ([facility])[address] [address]NGXAY CULTUREon 77-87-4551Ojyrimbc identified Cx Nom (Bld)No growth at 5 daysNormalUniversOhio State University Wexner Medical CenterComment on above:Order Comment: From a different site than #1.Performed By: #### [id number] ####[facility] ([facility])[address] [address] CBCon 45-08-7786Sxhzmztvwtp distribution width (RBC) [Ratio]15.9 %High11.5-15.0 [facility] HospitalComment on above:Performed By: #### [id number] ####[facility] ([facility])[address] [address]ZPYISYUAOUT MEAN CORPUSCULAR HEMOGLOBIN CONCENTRATION (G/DL) BY VKEMIIDMV59.1 g/dLNormal 32.0-35.0UnUniversity Hospitals Samaritan Medical CenterComment on above:Performed By: #### [id number] ####[facility] ([facility])[address] [place] [address] Hematocrit (Bld) [Volume fraction]33.4 %Low39.0-50.0UnUniversity Hospitals Samaritan Medical CenterComment on above:Performed By: #### [id number] ####[facility] ([facility])[address] [place], [place] [address]Qiylzdunni (Bld) [Mass/Vol]11.4 g/dL Low13.0-17.0UnUniversity Hospitals Samaritan Medical CenterComment on above:Performed By: #### [id number] ####[facility] ([facility])[address] [place] [address]FZG (RBC) [Entitic mass]31.1 diQuqpcw37.0-33.0UnUniversity Hospitals Samaritan Medical Center Comment on above:Performed By: #### [id number] ####[facility] ([facility])[address] [place] [address]PHB (RBC) [Entitic vol]91.3 fUZvhizn41.0-98.0 [facility] HospitalComment on above:Performed By: #### [id number] ####[facility] ([facility])[address] [place] [address]YINCNZNBL (10*3/UL) IN BLOOD AUTOMATED [id number] 10*3/fTVfpbkb119-988VjegkgysogUniversity Hospitals Samaritan Medical CenterComment on above:Performed By: #### [id number] ####[facility] ([facility])[address] [place] [address]SGH (Bld) [#/Vol]3.66 10*6/uLLow 4.20-5.70UnUniversity Hospitals Samaritan Medical CenterComment on above:Performed By: #### [id number] ####[facility] ([facility])[address] [place] [address]FRN (Bld) [#/Vol]10.74 10*3/uLHigh4.00-10.60UnUniversity Hospitals Samaritan Medical CenterComment on above:Performed By: #### [id number] ####[facility] ([facility])[address] [place] [address]Ponxjkatpio distribution width (RBC) [Ratio]15.8 %High 11.5-15.0UnUniversity Hospitals Samaritan Medical CenterComment on above:Performed By: #### [id number] ####[facility] ([facility])[address] [place] [address] ERYTHROCYTE MEAN CORPUSCULAR HEMOGLOBIN CONCENTRATION (G/DL) BY ILQGNSQFU34.7 g/gIXjrzlj49.0-35.0UnUniversity Hospitals Samaritan Medical CenterComment on above:Performed By: #### [id number] ####[facility] ([facility])[address] [place] [address]Nziisfkina (Bld) [Volume fraction]40.1 %Nroikm15.0-50.0UnUniversity Hospitals Samaritan Medical CenterComment on above:Performed By: #### [id number] ####[facility] ([facility])[address] [place] [address]Wfdwveklwo (Bld) [Mass/Vol]13.5 g/dL Mjxecm14.0-17.0UnUniversity Hospitals Samaritan Medical CenterComment on above:Performed By: #### [id number] ####[facility] ([facility])[address] [place] [address]ORT (RBC) [Entitic mass]30.9 nfIdmsyu86.0-33.0UnUniversity Hospitals Samar[facility] Medical Center Comment on above:Performed By: #### [id number] ####[facility] ([facility])[address] [place] [address]OCH (RBC) [Entitic vol]91.8 qUMjhodn09.0-98.0 [facility] HospitalComment on above:Performed By: #### [id number] ####[facility] ([facility])[address] [place] [address]CODLUIHLM (10*3/UL) IN BLOOD AUTOMATED [id number] 10*3/bIEvatok319-349OgrlyyexpuUniversity Hospitals Samaritan Medical CenterComment on above:Performed By: #### [id number] ####[facility] ([facility])[address] [place] [address]KHT (Bld) [#/Vol]4.37 10*6/uLNormal 4.20-5.70UnUniversity Hospitals Samaritan Medical CenterComment on above:Performed By: #### [id number] ####[facility] ([facility])[address] [place] [address]GRN (Bld) [#/Vol]11.61 10*3/uLHigh4.00-10.60UnUniversity Hospitals Samaritan Medical CenterComment on above:Performed By: #### [id number] ####[facility] ([facility])[address] [address]DDMBKLNQAFO MEAN CORPUSCULAR HEMOGLOBIN CONCENTRATION (G/DL) BY ASQHQYXVJ00.2 g/jNImdkdx58.0-35.0UnUniversity Hospitals Samaritan Medical CenterComment on above:Performed By: #### [id number] ####[facility] ([facility])[address] [place] [address]Qtfjvruoja (Bld) [Volume fraction]45.0 %Xfbwru45.0-50.0 [facility] HospitalComment on above:Performed By: #### [id number] ####[facility] ([facility])[address] [place] [address]Ucolpaytua (Bld) [Mass/Vol]15.4 g/jUFdbszs40.0-17.0UnUniversity Hospitals Samaritan Medical CenterComment on above:Performed By: #### [id number] ####[facility] ([facility])[address] [place] [address]JXL (RBC) [Entitic mass]31.3 txRveytn14.0-33.0UnUniversity Hospitals Samaritan Medical CenterComment on above:Performed By: #### [id number] ####[facility] ([facility])[address] [place] [address]GBD (RBC) [Entitic vol] 91.5 zIHnwrms50.0-98.0UnUniversity Hospitals Samaritan Medical CenterComment on above: Performed By: #### [id number] ####[facility] ([facility])[address] [place] [address]JTIGVQSZW (10*3/UL) IN BLOOD AUTOMATED [id number] 10*3/uLNormal 150-400UnUniversity Hospitals Samaritan Medical CenterComment on above:Performed By: #### [id number] ####[facility] ([facility])[address] [place] [address]MFU (Bld) [#/Vol]4.92 10*6/uLNormal4.20-5.70UnUniversity Hospitals Samaritan Medical CenterComment on above:Performed By: #### [id number] ####[facility] ([facility])[address] [place] [address]SMH (Bld) [#/Vol]12.27 10*3/uLHigh4.00-10.60UnUniversity Hospitals Samaritan Medical CenterComment on above:Performed By: #### [id number] ####[facility] ([facility])[address] [place] [address]LHD WITH AUTO DIFFERENTIALon 55-78-1289Kfdexjvsf (Bld) [#/Vol]0.02 10*3/uLNormal0.00-0.20 [facility] HospitalComment on above:Performed By: #### [id number] ####[facility] ([facility])[address] [place], [place] [address]Ontaxmgxv/100 WBC (Bld)0.2 %Normal0.0-1.0UnUniversity Hospitals Samaritan Medical CenterComment on above: Performed By: #### [id number] ####[facility] ([facility])[address] [facility] SPECIAL[facility] HOSPITALU[place], [place] [address]Bwjiywcywpu (Bld) [#/Vol]0.00 10*3/uLNormal0.00-0.50 [facility] HospitalComment on above:Performed By: #### [id number] ####[facility] ([facility])[address] [place], [place] [address]Asdhgbbyips/100 WBC (Bld)0.0 %Normal0.0-6.0UnUniversity Hospitals Samaritan Medical CenterComment on above: Performed By: #### [id number] ####[facility] ([facility])[address] [place] [address]Dyrewulfwvm distribution width (RBC) [Ratio]15.9 %High 11.5-15.0UnUniversity Hospitals Samaritan Medical CenterComment on above:Performed By: #### [id number] ####[facility] ([facility])[address] [place] [address] Performed By: #### [id number] ####[facility] ([facility])[address], [place] [address]QFKXIHLHXJD MEAN CORPUSCULAR HEMOGLOBIN CONCENTRATION (G/DL) BY DYKCAKIGV86.9 g/bTKkeint21.0-35.0UnUniversity Hospitals Samaritan Medical CenterComment on above:Performed By: #### [id number] ####[facility] ([facility])[address], [place] [address]Sasppylzog (Bld) [Volume fraction]42.5 %Bkrylc00.0-50.0 [facility] HospitalComment on above:Performed By: #### [id number] ####[facility] ([facility])[address], [place] [address]Cqqlhmnzzg (Bld) [Mass/Vol]14.0 g/bFAtwgdw06.0-17.0UnUniversity Hospitals Samaritan Medical CenterComment on above:Performed By: #### [id number] ####[facility] ([facility])[address], [place] [address]Jdzocqrm granulocytes (Bld) [#/Vol]0.05 10*3/uLNormal 0.00-0.20UnUniversity Hospitals Samaritan Medical CenterComment on above:Performed By: #### [id number] ####[facility] ([facility])[address], [place] [address]Noyarqrt granulocytes/100 WBC (Bld)0.5 %Normal0.0-1.0UnUniversity Hospitals [facility] Center Comment on above:Performed By: #### [id number] ####[facility] ([facility])[address], [place] [address]Twvetnswxpv (Bld) [#/Vol]1.14 10*3/uLLow1.20-4.00 [facility] HospitalComment on above:Performed By: #### [id number] ####[facility] ([facility])[address] [place] [address]Zndvpewreee/100 WBC (Bld)10.6 %Low20.0-45.0UnUniversity Hospitals Samaritan Medical CenterComment on above: Performed By: #### [id number] ####[facility] ([facility])[address] [place] [address]JII (RBC) [Entitic mass]30.8 qkPqbofg60.0-33.0UnUniversity Hospitals Samaritan Medical CenterComment on above:Performed By: #### [id number] ####[facility] ([facility])[address] [place], [place] [address]EGU (RBC) [Entitic vol] 93.4 zAHaxhxx60.0-98.0UnUniversity Hospitals Samaritan Medical CenterComment on above: Performed By: #### [id number] ####[facility] ([facility])[address] [facility] SPECIALTY HOSPITALUrielPH[place], [place] [address]Qobopawqt (Bld) [#/Vol]0.73 10*3/uLNormal0.10-1.00UnUniversity Hospitals Samaritan Medical CenterComment on above:Performed By: #### [id number] ####[facility] ([facility])[address] [place] [address]Aumbomtrj/100 WBC (Bld) 6.8 %Normal5.0-12.0UnUniversity Hospitals Samaritan Medical CenterComment on above:Performed By: #### [id number] ####[facility] ([facility])[address] [place], [place] [address]Wedtkapikoq (Bld) [#/Vol]8.79 10*3/uLHigh1.60-7.60UnUniversity Hospitals Samaritan Medical CenterComment on above:Performed By: #### [id number] ####[facility] ([facility])[address] [place] [address]Idaheywseyr/100 WBC (Bld)81.9 %High 40.0-72.0UnUniversity Hospitals Samaritan Medical CenterComment on above:Performed By: #### [id number] ####[facility] ([facility])[address] [place] [address]LMFH (PER 100 WBCS) BY AUTOMATED COUNT0.0 %Ruyrmi5KqsfsitwmgUniversity Hospitals Samaritan Medical Center Comment on above:Performed By: #### [id number] ####[facility] ([facility])[address] [place] [address]VGLEPQJIP (10*3/UL) IN BLOOD AUTOMATED [id number] 10*3/jELgwvnx175-485NftxfjfbadUniversity Hospitals Samaritan Medical CenterComment on above: Performed By: #### [id number] ####[facility] ([facility])[address] [place] [address]TOI (Bld) [#/Vol]4.55 10*6/uLNormal4.20-5.70UnUniversity Hospitals Samaritan Medical CenterComment on above:Performed By: #### [id number] ####[facility] ([facility])[address] [place] [address]PFR (Bld) [#/Vol]10.73 10*3/uLHigh4.00-10.60UnUniversity Hospitals Samaritan Medical CenterComment on above: Performed By: #### [id number] ####[facility] ([facility])[address], [place] [address]HTHGQMNHFFCKB METABOLIC PANELon 45-05-1622Kbhwouh [Mass/Vol] 4.0 g/dLNormal3.5-5.7UnUniversity Hospitals Samaritan Medical CenterComment on above: Performed By: #### [id number] ####[facility] ([facility])[address], [place] [address]Qmvwclvci By: #### [id number] ####[facility] ([facility])[address], [place] [address]HEH [Catalytic activity/Vol]70 U/EMzcuku88-297EkqghktflyUniversity Hospitals Samaritan Medical CenterComment on above:Performed By: #### [id number] ####[facility] ([facility])[address], [place] [address]HZQ [Catalytic activity/Vol]28 U/L Normal7-52UnUniversity Hospitals Samaritan Medical CenterComment on above:Performed By: #### [id number] ####[facility] ([facility])[address] [place], [place] [address]Yuafr gap [Moles/Vol]16 mmol/LNormal7-20UnUniversity Hospitals Samaritan Medical CenterComment on above:Performed By: #### [id number] ####[facility] ([facility])[address] [place], [place] [address]RGL [Catalytic activity/Vol]22 U/MSkctcv54-04FztgnxnrbtUniversity Hospitals Samaritan Medical CenterComment on above:Performed By: #### [id number] ####[facility] ([facility])[address] [place], [place] [address]Lnkumtvcm By: #### [id number] ####[facility] ([facility])[address], [place] [address]Csqfbiogr [Mass/Vol]5.1 mg/dLHigh0.3-1.0UnUniversity Hospitals Samaritan Medical CenterComment on above:Performed By: #### [id number] ####[facility] ([facility])[address] [place] [address] Calcium [Mass/Vol]9.4 mg/dLNormal8.6-10.3UnUniversity [facility]als [facility] Center Comment on above:Performed By: #### [id number] ####[facility] ([facility])[address] [place], [place] [address]Bayrfvcs [Moles/Vol]104 mmol/BIljsbx43-618 [facility] HospitalComment on above:Performed By: #### [id number] ####[facility] ([facility])[address] [place], [place] [address]YA8 [Moles/Vol] 24 mmol/ZLqjgzz42-92EaplwnjxzfUniversity Hospitals Samaritan Medical CenterComment on above: Performed By: #### [id number] ####[facility] ([facility])[address] [place], [place] [address]Fyokvllkwb [Mass/Vol]1.43 mg/dLHigh0.70-1.30UnUniversity Hospitals Samaritan Medical CenterComment on above:Performed By: #### [id number] ####[facility] ([facility])[address] [place] [address]QRVKVDBGHX FILTRATION RATE ML/MIN/1.73 SQ M.UTXSWHHPD46.8 mL/min/1.73m*2Low>60.0UnUniversity Hospitals [facility] Center Comment on above:Result Comment: [facility]???s estimated glomerular filtration rate (eGFR) will [...] anyone group of individuals.Performed By: #### [id number] ####[facility] ([facility])[address] [place] [address]Buesufn [Mass/Vol]134 mg/tTTemq66-269TatdtbswcgUniversity Hospitals Samaritan Medical CenterComment on above:Performed By: #### [id number] ####[facility] ([facility])[address] [place] [address]Wmcbdxopl [Moles/Vol]4.5 mmol/LNormal3.5-5.1UnUniversity Hospitals Samaritan Medical CenterComment on above:Performed By: #### [id number] ####[facility] ([facility])[address], [place] [address]Vniydij [Mass/Vol]6.2 g/dLNormal 6.0-8.3UnUniversity Hospitals Samaritan Medical CenterComment on above:Performed By: #### [id number] ####[facility] ([facility])[address], [place] [address]Iedqrq [Moles/Vol]139 mmol/HSkovmm760-153LmxpfjaexoUniversity Hospitals Samaritan Medical CenterComment on above:Performed By: #### [id number] ####[facility] ([facility])[address], [place] [address]Vzjb nitrogen [Mass/Vol]27 mg/dLHigh7-25UnUniversity Hospitals Samaritan Medical CenterComment on above:Performed By: #### [id number] ####[facility] ([facility])[address] [place] [address]JFRB NITROGEN/CREATININE (MASS RATIO) IN SER/PLAS18.9NormalUniversOhio State University Wexner Medical CenterComment on above: Performed By: #### [id number] ####[facility] ([facility])[address] [place] [address]HWOENTSvl 01-06-6532TTKZULXLovvpvDqmvhvgusi of [facility] CONSULTNormalUniversOhio State University Wexner Medical CenterCT ABDOMEN PELVIS W IV CONTRAST on 45-19-8039TJ ABDOMEN PELVIS W IV CONTRASTInvalid Interpretation Code [facility] HospitalCT CHEST W IV CONTRASTon 02-49-7453VI CHEST W IV CONTRASTInvalid Interpretation CodeUnUniversity Hospitals Samaritan Medical Center HEMOGLOBIN AND HEMATOCRIT, BLOODon 62-79-2701Rzaaqtubph (Bld) [Volume fraction] 42.9 %Frmzpb91.0-50.0UnUniversity Hospitals Samaritan Medical CenterComment on above: Performed By: #### [id number] ####[facility] ([facility])[address], [place] [address]Yoofkdmvxn (Bld) [Mass/Vol]14.5 g/kYRhjimz50.0-17.0UnUniversity Hospitals Samaritan Medical CenterComment on above:Performed By: #### [id number] ####[facility] ([facility])[address] [place], [place] [address]WCAFGWS FUNCTION PANELon 86-27-5721NUV [Catalytic activity/Vol]72 U/NFurprg10-656MhsyooyojoUniversity Hospitals Samaritan Medical CenterComment on above:Performed By: #### [id number] ####[facility] ([facility])[address], [place] [address]MVC [Catalytic activity/Vol]30 U/L Normal7-52UnUniversity Hospitals Samaritan Medical CenterComment on above:Performed By: #### [id number] ####[facility] ([facility])[address] [place] [address]Viqosjaow [Mass/Vol]4.8 mg/dLHigh0.3-1.0UnUniversity Hospitals Samaritan Medical CenterComment on above:Performed By: #### [id number] ####[facility] ([facility])[address] [place] [address]Brcddhowi [Mass/Vol]1.1 mg/dLHigh0-0.2UnUniversity Hospitals Samaritan Medical CenterComment on above:Performed By: #### [id number] ####[facility] ([facility])[address] [place] [address]Qxrqoto [Mass/Vol]6.1 g/dLNormal 6.0-8.3UnUniversity Hospitals Samaritan Medical CenterComment on above:Performed By: #### [id number] ####[facility] ([facility])[address] [place] [address]CALR SENSITIVITY TROPONIN Ion 29-98-2097GO TROPONIN I (NG/L)27 ng/LHigh<20UnUniversity Hospitals Samaritan Medical CenterComment on above:Performed By: #### [id number] ####[facility] ([facility])[address] [place] [address]QO TROPONIN I (NG/L)31 ng/LHigh<20UnUniversity Hospitals Samaritan Medical CenterComment on above:Performed By: #### [id number] ####[facility] ([facility])[address] [place] [address]IK on 22-64-9044TXWnmyvmPcjalpdvzg Brown Memorial HospitalLACTIC ACID WITH 4 HOUR REFLEXon 48-01-6052MQJBBMD (MMOL/L) IN SER/PLAS1.6 mmol/LNormal0.5-2.2UnUniversity Hospitals Samaritan Medical CenterComment on above:Performed By: #### [id number] ####[facility] ([facility])[address] [place] [address]NWBETHB (MMOL/L) IN SER/PLAS2.2 mmol/LNormal0.5-2.2UnUniversity Hospitals Samaritan Medical CenterComment on above:Performed By: #### [id number] ####[facility] ([facility])[address] [place] [id number] [id number] [Mass/Vol]1.8 mg/dLLow1.9-2.7 [facility] HospitalComment on above:Performed By: #### [id number] ####[facility] ([facility])[address] [place] [address]Jpaablgtq [Mass/Vol]2.0 mg/dLNormal1.9-2.7UnUniversity Hospitals Samaritan Medical CenterComment on above:Performed By: #### [id number] ####[facility] ([facility])[address] [place] [id number] [id number] called rapid at 0607 am pt was hypotensive BP 53/38 [employer] nurse at bedside 0609 am. MD notified came to bedside, orders were placed. 0700 BP 91/63. Day shift [employer] SUPER[employer]END[employer] nurse at bedside.NormalUnUniversity Hospitals Samaritan Medical CenterPOCT GLUCOSE METER UNSOLICITED RESULTSon [id number] [Mass/Vol]125 mg/cWWtrm11-000 [facility] HospitalComment on above:Order Comment: Waived Testing in the ED is performed under the ED CLIA certificate #[id number].Result Comment: [id number] By: #### [id number] ####[facility] ([facility])[address] [place] [id number] [Mass/Vol]129 mg/dQCaey16-239KrvgcfwpjgUniversity Hospitals Samaritan Medical CenterComment on above:Order Comment: Waived Testing in the ED is performed under the ED CLIA certificate #[id number].Result Comment: [email or web address] Performed By: #### [id number] ####[facility] ([facility])[address] [place] [address]BHQBHZV-OUTor 01-62-7842UJZ IN PPP BY COAGULATION ASSAY1.47 High0.90-1.10UnUniversity Hospitals Samaritan Medical CenterComment on above:Result Comment: ACCCP RECOMMENDED INR FOR WARFARIN THERAPY CONDITION INRPROPHYLAXIS OF VENOUS THROMBOSIS 2-3(HIGH-RISK SURGERY)TREATMENT OF VENOUS THROMBOSIS 2-3TREATMENT OF PULMONARY EMBOLISM 2-3PREVENTION OF SYSTEMIC EMBOLISM: 2-3 ACUTE MYOCARDIAL INFARCTION TISSUE HEART VALVES VALVULAR HEART DISEASE ATRIAL FIBRILLATION RECURRENT SYSTEMIC EMBOLISMMECHANICAL HEART VALVE 2.5-3.5 FROM: ORAL ANTICOAGULANTS. MECHANISM OF ACTION, CLINICAL EFFECTIVENESS, AND OPTIMAL THERAPE UTIC RANGE. CHEST 1995;108:231S-246S.Performed By: #### [id number] ####[facility] ([facility])[address] [place], [place] [address]SYKFIAGGOEK TIME (PT) IN PPP BY COAGULATION ASSAY17.9 HezlkupQbta88.3-14.8UnUniversity Hospitals Samaritan Medical CenterComment on above:Performed By: #### [id number] ####[facility] ([facility])[address] [place], [place] [address]CMJJ AND SCREENon 67-76-8919MY SCREEN NegativeNormalUniversOhio State University Wexner Medical CenterComment on above:Performed By: #### [id number] ####[facility] BLOOD BANK,ABO group Nom (Bld)ONormalUnUniversity Hospitals Samaritan Medical CenterComment on above:Performed By: #### [id number] ####[facility] BLOOD BANK,RH TYPE IN BLOODPositiveNormalUniversOhio State University Wexner Medical CenterComtrinity health [facility] on above: Performed By: #### [id number] ####[facility] BLOOD BANK,URINALYSIS MICROSCOPIC WITH REFLEX CULTUREon 69-69-5334UEM (#/HPF) IN URINE SEDIMENT>20AbnormalNone Seen, 0-2 [facility] HospitalComment on above:Performed By: #### [id number] ####[facility] ([facility])[address] [place], [place] [address]NVKOYDUG EPITHELIAL CELLS (#/LPF) IN URINE SEDIMENTNone SeenNormalNone Seen, Occasional, FewUnUniversity Hospitals Samaritan Medical CenterComment on above:Performed By: #### [id number] ####[facility] ([facility])[address] [place], [place] [address]VWC (LEUKOCYTE) (#/HPF) IN URINE SEDIMENTNone SeenNormalNone Seen, 0-2UnUniversity Hospitals Samaritan Medical CenterComment on above:Performed By: #### [id number] ####[facility] ([facility])[address] [place], [place] [address]XZJMOSFIMC WITH REFLEX CULTUREon 28-23-4754TTMQPNGEV, TOTAL PRESENCE IN URINENegativeNoalNegative [facility] HospitalComment on above:Performed By: #### [id number] ####[facility] ([facility])[address] [place], [place] [address]Fdlfhcu (U) TurbidAbnormalClearUnUniversity Hospitals Samaritan Medical CenterComment on above:Performed By: #### [id number] ####[facility] ([facility])[address] [place], [place] [address]Puqnf (U)RedAbnormalColorless, Yellow, Light-YellowUnUniversity Hospitals Samaritan Medical CenterComment on above:Performed By: #### [id number] ####[facility] ([facility])[address] [place], [place] [address]OECLCJI (MG/DL) IN URINENormalNormal NormalUnUniversity Hospitals Samaritan Medical CenterComment on above:Performed By: #### [id number] ####[facility] ([facility])[address] [place] [address] HEMOGLOBIN PRESENCE IN URINELargeAbnormalNegativeUnUniversity Hospitals Samaritan Medical CenterComment on above:Performed By: #### [id number] ####[facility] ([facility])[address] [place], [place] [address]Mrsmzgg Ql (U)NegativeNormalNegative [facility] HospitalComment on above:Performed By: #### [id number] ####[facility] ([facility])[address] [place], [place] [address]OIIELEBZM ESTERASE PRESENCE IN URINE BY TEST STRIPTraceAbnormalNegativeUnUniversity Hospitals Samaritan Medical CenterComment on above:Performed By: #### [id number] ####[facility] ([facility])[address] [place] [place], [place] [address]SNMWIYK PRESENCE IN URINE NegativeNormalNegativeUnUniversity Hospitals Samaritan Medical CenterComment on above: Performed By: #### [id number] ####[facility] ([facility])[address] [place], [place] [address]bW (U)5.5 [pH]Normal5.0-8.0UnUniversity Hospitals Samaritan Medical CenterComment on above:Performed By: #### [id number] ####[facility] ([facility])[address] [place] [place], [place] [address]Kjqtozx (U) [Mass/Vol]30 mg/dLAbnormal NegativeUnUniversity Hospitals Samaritan Medical CenterComment on above:Performed By: #### [id number] ####[facility] ([facility])[address] [place] [place], [place] [address]Iudywcyw gravity (U) [Rel density]>1.412Boow8.010-1.030UnUniversity Hospitals Samaritan Medical CenterComment on above:Performed By: #### [id number] ####[facility] ([facility])[address] [place] [place], [place] [address]JSKRCSQBQWYD (MG/DL) IN URINENormal NormalNormalUniSt. Rita's HospitalComment on above:Performed By: #### [id number] ####[facility] ([facility])[address] [facility] HOSPITALUrielPHILAD[place], [place] [address] on 06-88-111014BnndxhTthcwugdir of [place] Medical CenterANTI-XA (HEPARIN LEVEL) on 07-55-0013WJPWMAA UNFRACTIONATED (U/ML) IN PPP BY CHROMOGENIC METHOD0.57 IU/mLNormal0.3-0.7UnUniversity Hospitals Samaritan Medical CenterComment on above:Result Comment: Rivaroxaban and Apixaban will interfere with the anti Xa assay used to monitor UFH and LMWH.Performed By: #### [id number] ####[facility] ([facility])[address] [place] [address]XGKXxx 03-58-9957DNWJTVBWK PARTIAL THROMBOPLASTIN TIME IN PPP BY COAGULATION YKEBL766.9 UsffuwtNjsu25.0-35.0 [facility] HospitalComment on above:Result Comment: Clinical significance of the APTT is questionable in the presence of heparin.Performed By: #### [id number] ####[facility] ([facility])[address] [place] [address] BASIC METABOLIC PANELon 20-11-2078Mnunq gap [Moles/Vol]13 mmol/LNormal7-20 [facility] HospitalComment on above:Performed By: #### [id number] ####[facility] ([facility])[address] [place], [place] [address]Caghdaz [Mass/Vol]8.9 mg/dLNormal8.6-10.3UnUniversity Hospitals Samaritan Medical CenterComment on above:Performed By: #### [id number] ####[facility] ([facility])[address] [place], [place] [address]Hhqhdexx [Moles/Vol]104 mmol/JZjntav31-763TarmtwzktpUniversity Hospitals Samaritan Medical CenterComment on above:Performed By: #### [id number] ####[facility] ([facility])[address] [place], [place] [address]TH2 [Moles/Vol]26 mmol/LNormal 21-31UnUniversity Hospitals Samaritan Medical CenterComment on above:Performed By: #### [id number] ####[facility] ([facility])[address] [place], [place] [address]Mespftgiyw [Mass/Vol]0.99 mg/dLNormal0.70-1.30UnUniversity Hospitals Samaritan Medical CenterComment on above:Performed By: #### [id number] ####[facility] ([facility])[address] [place] [address]XFTJSWRYVS FILTRATION RATE ML/MIN/1.73 SQ M.GBPEQYIHY61.3 mL/min/1.73m*2Normal>60.0UnUniversity Hospitals Samaritan Medical CenterComment on above: Result Comment: [facility]???s estimated glomerular filtration rate (eGFR) will [...] anyone group of individuals.Performed By: #### [id number] ####[facility] ([facility])[address] [place] [address]Pwednvh [Mass/Vol]86 mg/wTEhtnyh47-128IvgvpbaolqUniversity Hospitals Samaritan Medical CenterComment on above:Performed By: #### [id number] ####[facility] ([facility])[address] [place], [place] [address]Tomceghoi [Moles/Vol]4.0 mmol/LNormal3.5-5.1UnUniversity Hospitals Samaritan Medical CenterComment on above:Performed By: #### [id number] ####[facility] ([facility])[address] [place] [address] Sodium [Moles/Vol]139 mmol/ELifijc524-636KhpbqwrzrfUniversity Hospitals Samaritan Medical Center Comment on above:Performed By: #### [id number] ####[facility] ([facility])[address] [place], [place] [address]Gciq nitrogen [Mass/Vol]16 mg/dLNormal7-25 [facility] HospitalComment on above:Performed By: #### [id number] ####[facility] ([facility])[address] [place], [place] [address]UYYH NITROGEN/CREATININE (MASS RATIO) IN SER/PLAS16.2NormalUniversity of Reina Medical CenterComment on above:Performed By: #### [id number] ####[facility] ([facility])[address] [address]JQFvu 39-66-4262Ttsukavvusv distribution width (RBC) [Ratio]15.2 %High11.5-15.0UnUniversity Hospitals Samaritan Medical CenterComment on above:Performed By: #### [id number] ####[facility] ([facility])[address] [address]NANFGQABBBK MEAN CORPUSCULAR HEMOGLOBIN CONCENTRATION (G/DL) BY SHZZFILME11.7 g/yWJvykhl13.0-35.0UnUniversity Hospitals Samaritan Medical CenterComment on above:Performed By: #### [id number] ####[facility] ([facility])[address] [place] [address]Sisugvuhrg (Bld) [Volume fraction]44.4 %Ejinor45.0-50.0UnUniversity Hospitals Samaritan Medical CenterComment on above:Performed By: #### [id number] ####[facility] ([facility])[address] [place] [address]Yryxpyysyz (Bld) [Mass/Vol]15.4 g/vRQljavz77.0-17.0UnUniversity Hospitals Samaritan Medical CenterComment on above:Performed By: #### [id number] ####[facility] ([facility])[address] [place] [address]HRP (RBC) [Entitic mass] 31.0 uyChixjg17.0-33.0UnUniversity Hospitals Samaritan Medical CenterComment on above: Performed By: #### [id number] ####[facility] ([facility])[address] [place] [address]TTJ (RBC) [Entitic vol]89.3 oMNlyxbu18.0-98.0UnUniversity Hospitals Samaritan Medical CenterComment on above:Performed By: #### [id number] ####[facility] ([facility])[address] [place] [address]IADGMILPC (10*3/UL) IN BLOOD AUTOMATED PENYR762 10*3/dQXtbnts382-629MxrjhhxkpaUniversity Hospitals Samaritan Medical Center Comment on above:Performed By: #### [id number] ####[facility] ([facility])[address] [place] [address]OAN (Bld) [#/Vol]4.97 10*6/uLNormal4.20-5.70 [facility] HospitalComment on above:Performed By: #### [id number] ####[facility] ([facility])[address] [place] [address]DNZ (Bld) [#/Vol]7.24 10*3/uLNormal4.00-10.60[facility] HospitalComment on above:Performed By: #### [id number] ####[facility] ([facility])[address] [place] [address]GF ABDOMEN PELVIS WO IV CONTRASTon 14-29-8303QX ABDOMEN PELVIS WO IV CONTRASTInvalid Interpretation CodeLancaster Municipal Hospital30on 22-92-294557QyiryhCipcwaqpzt of [place] [facility] Eejdsu53OqxiliThe University of [place] Medical Center30NormalUniSt. Rita's Hospital ANTI-XA (HEPARIN LEVEL)on 57-23-5284MZQUFBL UNFRACTIONATED (U/ML) IN PPP BY CHROMOGENIC METHOD0.55 IU/mLNormal0.3-0.7[facility] Comment on above:Result Comment: Rivaroxaban and Apixaban will interfere with the anti Xa assay used to monitor UFH and LMWH.Performed By: #### [id number] ####[facility] ([facility])[address] [place] [address]NXONVPC UNFRACTIONATED (U/ML) IN PPP BY CHROMOGENIC METHOD0.61 IU/mLNormal0.3-0.7 [facility] HospitalComment on above:Result Comment: Rivaroxaban and Apixaban will interfere with the anti Xa assay used to monitor UFH and LMWH. Performed By: #### [id number] ####[facility] ([facility])[address] [place] [address]IGYJXRW UNFRACTIONATED (U/ML) IN PPP BY CHROMOGENIC METHOD 0.84 IU/mLHigh0.3-0.7UnUniversity Hospitals Samaritan Medical CenterComment on above:Order Comment: Other specimen was sitting in tube station, unknown for how long specimen was stationedResult Comment: Rivaroxaban and Apixaban will interfere with the anti Xa assay used to monitor UFH and LMWH.Performed By: #### [id number] ####[facility] ([facility])[address] [place], [place] [address]EPVLtv 36-63-2984CIEGKNBHK PARTIAL THROMBOPLASTIN TIME IN PPP BY COAGULATION AMBLP869.6 SecondsCritically high25.0-35.0UnUniversity Hospitals Samaritan Medical CenterComment on above:Result Comment: Clinical significance of the APTT is questionable in the presence of heparin.Performed By: #### [id number] ####[facility] ([facility])[address] [place], [place] [address]VSHJW METABOLIC PANELon 77-08-6429Kgihz gap [Moles/Vol]14 mmol/LNormal7-20UnUniversity Hospitals Samaritan Medical CenterComment on above:Performed By: #### [id number] ####[facility] ([facility])[address] [place], [place] [address]Lggmhag [Mass/Vol]8.7 mg/dLNormal8.6-10.3UnUniversity Hospitals Samaritan Medical CenterComment on above:Performed By: #### [id number] ####[facility] ([facility])[address] [place], [place] [address]Udduuifc [Moles/Vol]105 mmol/LNormal 98-107UnUniversity Hospitals Samaritan Medical CenterComment on above:Performed By: #### [id number] ####[facility] ([facility])[address] [place], [place] [address]MI6 [Moles/Vol]25 mmol/IOvmctm53-68AnjgtuchflUniversity Hospitals Samaritan Medical CenterComment on above:Performed By: #### [id number] ####[facility] ([facility])[address] [place], [place] [address]Rxxksovdyj [Mass/Vol]0.99 mg/dLNormal0.70-1.30UnUniversity Hospitals Samaritan Medical CenterComment on above:Performed By: #### [id number] ####[facility] ([facility])[address] [place] [address]FOZXHJCTMW FILTRATION RATE ML/MIN/1.73 SQ M.TMFIRQFYV29.3 mL/min/1.73m*2Normal>60.0UnUniversity Hospitals Samaritan Medical CenterComment on above:Result Comment: [facility]???s estimated glomerular filtration rate (eGFR) will [...] anyone group of individuals.Performed By: #### [id number] ####[facility] ([facility])[address] [facility] HOSPITALU[place]PH[place], [place] [address]Rpinpsf [Mass/Vol]59 mg/wVIat85-698PycjdprhojUniversity Hospitals Samaritan Medical CenterComment on above: Performed By: #### [id number] ####[facility] ([facility])[address] [place] [address]Kgdwolssm [Moles/Vol]3.8 mmol/LNormal3.5-5.1UnUniversity Hospitals Samaritan Medical CenterComment on above:Performed By: #### [id number] ####[facility] ([facility])[address] [place] [address]Kemxci [Moles/Vol]140 mmol/LNormal 136-145UnUniversity Hospitals Samaritan Medical CenterComment on above:Performed By: #### [id number] ####[facility] ([facility])[address] [place], [place] [address]Ogve nitrogen [Mass/Vol]16 mg/dLNormal7-25UnUniversity Hospitals Samaritan Medical CenterComment on above:Performed By: #### [id number] ####[facility] ([facility])[address] [place] [place], [place] [address]DFAL NITROGEN/CREATININE (MASS RATIO) IN SER/PLAS16.2Normal [facility] HospitalComment on above:Performed By: #### [id number] ####[facility] ([facility])[address] [place], [place] [address]BILVMXXFXW AND HEMATOCRIT, BLOODon 82-03-3185Qyzmefjjxl (Bld) [Volume fraction]42.9 %Normal 39.0-50.0UnUniversity Hospitals Samaritan Medical CenterComment on above:Performed By: #### [id number] ####[facility] ([facility])[address] [place] [address] Hemoglobin (Bld) [Mass/Vol]14.8 g/xNDlaldi53.0-17.0UnUniversity Hospitals Samaritan Medical CenterComment on above:Performed By: #### [id number] ####[facility] ([facility])[address] [place], [place] [address]nt 95-22-688287NqbvbeDmvnsinamg of [place] Medical CenterANTI-XA (HEPARIN LEVEL)on 00-07-5463HCCQWBZ UNFRACTIONATED (U/ML) IN PPP BY CHROMOGENIC METHOD0.54 IU/mLNormal0.3-0.7UnUniversity Hospitals Samaritan Medical CenterComment on above:Result Comment: Rivaroxaban and Apixaban will interfere with the anti Xa assay used to monitor UFH and LMWH.Performed By: #### [id number] ####[facility] ([facility])[address] [place], [place] [address]VUDTUSX UNFRACTIONATED (U/ML) IN PPP BY CHROMOGENIC METHOD0.41 IU/mLNormal0.3-0.7 [facility] HospitalComment on above:Order Comment: Ok to draw AM labs at this timeCheck anti-Xa level every 6 hours while on heparin infusion, or per protocol.Result Comment: Rivaroxaban and Apixaban will interfere with the anti Xa assay used to monitor UFH and LMWH.Performed By: #### [id number] ####[facility] ([facility])[address] [place], [place] [address]BIPEtc 02-19-2025 ACTIVATED PARTIAL THROMBOPLASTIN TIME IN PPP BY COAGULATION GELXK940.5 Seconds Critically high25.0-35.0UnUniversity Hospitals Samaritan Medical CenterComment on above: Result Comment: Clinical significance of the APTT is questionable in the presence of heparin.Performed By: #### [id number] ####[facility] ([facility])[address] [place], [place] [address]AJWCPSEVX PARTIAL THROMBOPLASTIN TIME IN PPP BY COAGULATION ASSAY84.7 PkydilfUfsv71.0-35.0UnUniversity Hospitals Sam[facility] Medical Center Comment on above:Order Comment: Check aPTT every 6 hours while on heparin infusion, or per protocol.Result Comment: Clinical significance of the APTT is questionable in the presence of heparin.Performed By: #### [id number] ####[facility] ([facility])[address] [place], [place] [address]KQTRH METABOLIC PANELon 18-52-0232Yexwg gap [Moles/Vol]12 mmol/LNormal7-20UnUniversity Hospitals Samaritan Medical CenterComment on above:Performed By: #### [id number] ####[facility] ([facility])[address] [place], [place] [address]Jjzxihh [Mass/Vol]8.3 mg/dLLow8.6-10.3 [facility] HospitalComment on above:Performed By: #### [id number] ####[facility] ([facility])[address] [place], [place] [address]Isasywgl [Moles/Vol]108 mmol/DWbuo05-587DtriwuwynnUniversity Hospitals Samaritan Medical CenterComment on above:Performed By: #### [id number] ####[facility] ([facility])[address] [place], [place] [address]WP9 [Moles/Vol]25 mmol/DKigngc82-61FzjzcmoorjUniversity Hospitals Samaritan Medical CenterComment on above:Performed By: #### [id number] ####[facility] ([facility])[address] [place], [place] [address]Amvsouxxnm [Mass/Vol]1.07 mg/dLNormal 0.70-1.30University of Reina Medical CenterComment on above:Performed By: #### [id number] ####[facility] ([facility])[address] [place] [address]LLRCCZIOFJ FILTRATION RATE ML/MIN/1.73 SQ M.FFTVSUZUL85.4 mL/min/1.73m*2Normal>60.0 [facility] HospitalComment on above:Result Comment: [facility]???s estimated glomerular filtration rate (eG FR) [...] group of individuals. Performed By: #### [id number] ####[facility] ([facility])[address] [place] [address]Ivhonpw [Mass/Vol]75 mg/xBJymkhz79-843KohljdpmekUniversity Hospitals Samaritan Medical CenterComment on above:Performed By: #### [id number] ####[facility] ([facility])[address] [place] [address]Yeiebapop [Moles/Vol]3.8 mmol/LNormal 3.5-5.1UnUniversity Hospitals Samaritan Medical CenterComment on above:Performed By: #### [id number] ####[facility] ([facility])[address] [place] [address]Yezddo [Moles/Vol]141 mmol/PNeogrp568-040NluvgvwiicUniversity Hospitals Samaritan Medical CenterComment on above:Performed By: #### [id number] ####[facility] ([facility])[address] [place], [place] [address]Rqhd nitrogen [Mass/Vol]19 mg/dLNormal7-25UnUniversity Hospitals Samaritan Medical CenterComment on above:Performed By: #### [id number] ####[facility] ([facility])[address] [place] [address]TOXY NITROGEN/CREATININE (MASS RATIO) IN SER/PLAS17.8NormalUniversOhio State University Wexner Medical CenterComment on above: Performed By: #### [id number] ####[facility] ([facility])[address] [address]JQEyx 89-75-3144Bwivgdlxkqw distribution width (RBC) [Ratio]15.0 % Esufwo90.5-15.0UnUniversity Hospitals Samaritan Medical CenterComment on above:Performed By: #### [id number] ####[facility] ([facility])[address] [place] [address] ERYTHROCYTE MEAN CORPUSCULAR HEMOGLOBIN CONCENTRATION (G/DL) BY NFKYLWFBL22.0 g/oOIhuaaj07.0-35.0UnUniversity Hospitals Samaritan Medical CenterComment on above:Performed By: #### [id number] ####[facility] ([facility])[address] [place] [address]Gnylplrhtk (Bld) [Volume fraction]40.9 %Wxlfta15.0-50.0UnUniversity Hospitals Samaritan Medical CenterComment on above:Performed By: #### [id number] ####[facility] ([facility])[address] [place] [address]Lxfbisiwwe (Bld) [Mass/Vol]13.9 g/dL Dugktx25.0-17.0UnUniversity Hospitals Samaritan Medical CenterComment on above:Performed By: #### [id number] ####[facility] ([facility])[address] [place] [address]JZE (RBC) [Entitic mass]31.2 oxCkhgao81.0-33.0UnUniversity Hospitals Samaritan Medical Center Comment on above:Performed By: #### [id number] ####[facility] ([facility])[address] [place] [place] [id number] (RBC) [Entitic vol]91.9 bJUxeirz70.0-98.0 [facility] HospitalComment on above:Performed By: #### [id number] ####[facility] ([facility])[address] [place] [id number] (10*3/UL) IN BLOOD AUTOMATED [id number] 10*3/dOCygqdl876-849DaxnbfldkqUniversity Hospitals Samaritan Medical CenterComment on above:Performed By: #### [id number] ####[facility] ([facility])[address] [place] [id number] (Bld) [#/Vol]4.45 10*6/uLNormal 4.20-5.70UnUniversity Hospitals Samaritan Medical CenterComment on above:Performed By: #### [id number] ####CHINLE [facility] ([facility])[address] [place], [place] [address]NFO (Bld) [#/Vol]5.92 10*3/uLNormal4.00-10.60UnUniversity Hospitals Samaritan Medical CenterComment on above:Performed By: #### [id number] ####[facility] ([facility])[address] [place], [place] [address]EAIYBABsl 88-96-8917VKRDLQIHmhahtYeefkixnyo Brown Memorial HospitalCONSULTNormalUniversity Brown Memorial HospitalHIGH SENSITIVITY TROPONIN Ion 75-89-4504MG TROPONIN I (NG/L)30 ng/LHigh<20UnUniversity Hospitals Samaritan Medical CenterComment on above:Performed By: #### [id number] ####[facility] ([facility])[address] [place], [place] [address]LC TROPONIN I (NG/L)29 ng/LHigh<20 [facility] HospitalComment on above:Performed By: #### [id number] ####[facility] ([facility])[address] [place], [place] [address]EG TROPONIN I (NG/L)30 ng/LHigh<20UnUniversity Hospitals Samaritan Medical CenterComment on above: Performed By: #### [id number] ####[facility] ([facility])[address] [place], [place] [address]HU TROPONIN I (NG/L)27 ng/LHigh<20UnUniversity Hospitals Samaritan Medical CenterComment on above:Performed By: #### [id number] ####[facility] ([facility])[address] [place], [place] [address]ZQmt 05-53-3642GJBwlmdmUbcfhricpk of [facility] Medical CenterMAGNESIUMon 78-18-4251Atdnthcjy [Mass/Vol]1.9 mg/dLNormal 1.9-2.7UnUniversity Hospitals Samaritan Medical CenterComment on above:Performed By: #### [id number] ####[facility] ([facility])[address] [place], [place] [address]17dw 60-03-959607ZugufiHqeokiqbyt of [place] Medical CenterANTI-XA (HEPARIN LEVEL)on 75-27-6196PUIRZWF UNFRACTIONATED (U/ML) IN PPP BY CHROMOGENIC METHOD<0.10Invalid Interpretation Code0.3-0.7UnUniversity Hospitals Samaritan Medical CenterComment on above: Order Comment: Check anti-Xa level every 6 hours while on heparin infusion, or per protocol.Result Comment: Rivaroxaban and Apixaban will interfere with the anti Xa assay used to monitor UFH and LMWH.Performed By: #### [id number] ####[facility] ([facility])[address] [place], [place] [address]YIXNyw 02-18-2025 ACTIVATED PARTIAL THROMBOPLASTIN TIME IN PPP BY COAGULATION ASSAY32.7 Seconds Chmxcf92.0-35.0UnUniversity Hospitals Samaritan Medical CenterComment on above:Order Comment: Baseline aPTT before initiating heparin infusion.Result Comment: Clinical significance of the APTT is questionable in the presence of heparin. Performed By: #### [id number] ####[facility] ([facility])[address] [place], [place] [address]N-YWVQ NATRIURETIC PEPTIDEon 85-76-3978Whjylizqjai peptide B (Bld) [Mass/Vol]491 pg/mLHigh0-100UnUniversity Hospitals Samaritan Medical CenterComment on above:Performed By: #### [id number] ####[facility] ([facility])[address] [place], [place] [address]MND WITH AUTO DIFFERENTIALon 26-59-8360Qhfxjfpap (Bld) [#/Vol]0.02 10*3/uLNormal0.00-0.20UnUniversity Hospitals Samaritan Medical CenterComment on above:Performed By: #### [id number] ####[facility] ([facility])[address] [place], [place] [address]Jwlghxhiq/100 WBC (Bld)0.3 %Normal0.0-1.0UnUniversity Hospitals Samaritan Medical CenterComment on above:Performed By: #### [id number] ####[facility] ([facility])[address] [place], [place] [address]Ztnvtzhpmzf (Bld) [#/Vol]0.08 10*3/uL Normal0.00-0.50UnUniversity Hospitals Samaritan Medical CenterComment on above:Performed By: #### [id number] ####[facility] ([facility])[address] [place] [address] Eosinophils/100 WBC (Bld)1.1 %Normal0.0-6.0UnUniversity Hospitals Samaritan Medical Center Comment on above:Performed By: #### [id number] ####[facility] ([facility])[address] [place], [place] [address]Dxirpnkhafn distribution width (RBC) [Ratio]15.1 % High11.5-15.0UnUniversity Hospitals Samaritan Medical CenterComment on above:Performed By: #### [id number] ####[facility] ([facility])[address] [place] [address] ERYTHROCYTE MEAN CORPUSCULAR HEMOGLOBIN CONCENTRATION (G/DL) BY OTCZOQMZB93.5 g/lJVzfcib25.0-35.0UnUniversity Hospitals Samaritan Medical CenterComment on above:Performed By: #### [id number] ####[facility] ([facility])[address] [place], [place] [address]Fxejnfondu (Bld) [Volume fraction]41.7 %Uipijc72.0-50.0UnUniversity Hospitals Samaritan Medical CenterComment on above:Performed By: #### [id number] ####[facility] ([facility])[address] [place], [place] [address]Gtlqtlyijl (Bld) [Mass/Vol]14.4 g/dL Tldnml92.0-17.0UnUniversity Hospitals Samaritan Medical CenterComment on above:Performed By: #### [id number] ####[facility] ([facility])[address] [place] [address] Immature granulocytes (Bld) [#/Vol]0.03 10*3/uLNormal0.00-0.20UnUniversity Hospitals Samaritan Medical CenterComment on above:Performed By: #### [id number] ####[facility] ([facility])[address] [place] [address]Tixkjryk granulocytes/100 WBC (Bld)0.4 %Normal0.0-1.0UnUniversity Hospitals Samaritan Medical CenterComment on above: Performed By: #### [id number] ####[facility] ([facility])[address] [place], [place] [address]Xbzajlvdgma (Bld) [#/Vol]1.51 10*3/uLNormal1.20-4.00 [facility] HospitalComment on above:Performed By: #### [id number] ####[facility] ([facility])[address] [place], [place] [address]Ljtddqfdgeg/100 WBC (Bld)20.2 %Czdmsx30.0-45.0UnUniversity Hospitals Samaritan Medical CenterComment on above:Performed By: #### [id number] ####[facility] ([facility])[address] [place], [place] [address]GPY (RBC) [Entitic mass]31.5 seUzxabt65.0-33.0UnUniversity Hospitals Samaritan Medical CenterComment on above:Performed By: #### [id number] ####[facility] ([facility])[address] [place], [place] [address]HIO (RBC) [Entitic vol] 91.2 zRBdkkhb30.0-98.0UnUniversity Hospitals Samaritan Medical CenterComment on above: Performed By: #### [id number] ####[facility] ([facility])[address] [place], [place] [address]Obigscype (Bld) [#/Vol]0.64 10*3/uLNormal0.10-1.00UnUniversity Hospitals Samaritan Medical CenterComment on above:Performed By: #### [id number] ####[facility] ([facility])[address] [address]Jgkqloxnf/100 WBC (Bld) 8.5 %Normal5.0-12.0UnUniversity Hospitals Samaritan Medical CenterComment on above:Performed By: #### [id number] ####[facility] ([facility])[address] [place] [address]Qfctsizmwfo (Bld) [#/Vol]5.21 10*3/uLNormal1.60-7.60UnUniversity Hospitals Samaritan Medical CenterComment on above:Performed By: #### [id number] ####[facility] ([facility])[address] [place] [address]Tvflkfcdrno/100 WBC (Bld)69.5 %Normal 40.0-72.0UnUniversity Hospitals Samaritan Medical CenterComment on above:Performed By: #### [id number] ####[facility] ([facility])[address] [place] [address]BNLC (PER 100 WBCS) BY AUTOMATED COUNT0.0 %Nyazyc0DmywxchqamUniversity Hospitals Samaritan Medical Center Comment on above:Performed By: #### [id number] ####[facility] ([facility])[address] [place] [address]RLRRIUOLA (10*3/UL) IN BLOOD AUTOMATED [id number] 10*3/zAEedbrp195-462LxmwbhuhvhUniversity Hospitals Samaritan Medical CenterComment on above: Performed By: #### [id number] ####[facility] ([facility])[address] [place] [address]LEH (Bld) [#/Vol]4.57 10*6/uLNormal4.20-5.70UnUniversity Hospitals Samaritan Medical CenterComment on above:Performed By: #### [id number] ####[facility] ([facility])[address] [place], [place] [address]SNH (Bld) [#/Vol]7.49 10*3/uLNormal4.00-10.60UnUniversity Hospitals Samaritan Medical CenterComment on above: Performed By: #### [id number] ####[facility] ([facility])[address] [place], [place] [address]NLNWSVSHOPPZC METABOLIC PANELon 63-22-2380Ofowsyr [Mass/Vol] 3.6 g/dLNormal3.5-5.7UnUniversity Hospitals Samaritan Medical CenterComment on above: Performed By: #### [id number] ####[facility] ([facility])[address] [place], [place] [address]SVK [Catalytic activity/Vol]58 U/WPbzcml88-601YautuatrzpUniversity Hospitals Samaritan Medical CenterComment on above:Performed By: #### [id number] ####[facility] ([facility])[address] [place], [place] [address]GFS [Catalytic activity/Vol]30 U/L Normal7-52UnUniversity Hospitals Samaritan Medical CenterComment on above:Performed By: #### [id number] ####[facility] ([facility])[address] [place], [place] [address]Oqrsw gap [Moles/Vol]11 mmol/LNormal7-20UnUniversity Hospitals Samaritan Medical CenterComment on above:Performed By: #### [id number] ####[facility] ([facility])[address] [place], [place] [address]GZT [Catalytic activity/Vol]19 U/YKufash99-15QgdmocyhriUniversity Hospitals Samaritan Medical CenterComment on above:Performed By: #### [id number] ####[facility] ([facility])[address] [place], [place] [address]Tjxlqpona [Mass/Vol]3.6 mg/dLHigh 0.3-1.0UnUniversity Hospitals Samaritan Medical CenterComment on above:Performed By: #### [id number] ####[facility] ([facility])[address] [place], [place] [address]Mjlshlj [Mass/Vol]8.5 mg/dLLow8.6-10.3UnUniversity Hospitals Samaritan Medical CenterComment on above:Performed By: #### [id number] ####[facility] ([facility])[address] [place] [address]Millfsur [Moles/Vol]108 mmol/SGuln84-810MiwedzsexkUniversity Hospitals Samaritan Medical CenterComment on above:Performed By: #### [id number] ####[facility] ([facility])[address] [place], [place] [address]KZ9 [Moles/Vol]21 mmol/PZrqjks22-72 [facility] HospitalComment on above:Performed By: #### [id number] ####[facility] ([facility])[address] [place], [place] [address]Otovgnedns [Mass/Vol]1.02 mg/dLNormal0.70-1.30UnUniversity Hospitals Samaritan Medical CenterComment on above:Performed By: #### [id number] ####[facility] ([facility])[address] [place], [place] [address]USQSBZZSCS FILTRATION RATE ML/MIN/1.73 SQ M.QWYQBCOGM71.2 mL/min/1.73m*2Normal>60.0UnUniversity Hospitals Samaritan Medical CenterComment on above: Result Comment: [facility]???s estimated glomerular filtration rate (eGFR) will [...] anyone group of individuals.Performed By: #### [id number] ####[facility] ([facility])[address] [place], [place] [address]Iyfwtmi [Mass/Vol]88 mg/sWGfcgat60-860YsznpbwpcaUniversity Hospitals Samaritan Medical CenterComment on above:Performed By: #### [id number] ####[facility] ([facility])[address] [place], [place] [address]Wecthzkho [Moles/Vol]4.0 mmol/LNormal3.5-5.1UnUniversity Hospitals Samaritan Medical CenterComment on above:Performed By: #### [id number] ####[facility] ([facility])[address] [place] [address] Protein [Mass/Vol]5.5 g/dLLow6.0-8.3UnUniversity Hospitals Samaritan Medical CenterComment on above:Performed By: #### [id number] ####[facility] ([facility])[address] [place] [address]Xhokmp [Moles/Vol]136 mmol/BKuvwfc483-943IaawobqncsUniversity Hospitals Samaritan Medical CenterComment on above:Performed By: #### [id number] ####[facility] ([facility])[address] [place] [address]Fglj nitrogen [Mass/Vol]21 mg/dLNormal 7-25UnUniversity Hospitals Samaritan Medical CenterComment on above:Performed By: #### [id number] ####[facility] ([facility])[address] SHE[facility] SPECIALTY HOSPITALUrielPH[place], [place] [address]ODVP NITROGEN/CREATININE (MASS RATIO) IN SER/PLAS20.6NormalUniversOhio State University Wexner Medical CenterComment on above:Performed By: #### [id number] ####[facility] ([facility])[address] [place], [place] [address]RJIV SENSITIVITY TROPONIN Ion 15-87-2324EY TROPONIN I (NG/L)27 ng/LHigh<20UnUniversity Hospitals Samaritan Medical Center Comment on above:Performed By: #### [id number] ####[facility] ([facility])[address] [place] [address]MQvk 05-71-8781FOQasokaVoyuilovae of [place] Medical CenterLACTIC ACID, PLASMAon 04-74-0302UNNCACV (MMOL/L) IN SER/PLAS1.1 mmol/L Normal0.5-2.2UnUniversity Hospitals Samaritan Medical CenterComment on above:Performed By: #### [id number] ####[facility] ([facility])[address] [place] [address] MAGNESIUMon 31-82-2717Ojjkdqkin [Mass/Vol]2.1 mg/dLNormal1.9-2.7UnUniversity Hospitals Samaritan Medical CenterComment on above:Performed By: #### [id number] ####[facility] ([facility])[address] [place], [place] [address]Vomqyvv Recordson 76-53-9092Ogyghez [id number]#1.00OTGTIFF NormalMagruder HospitalOutside Records [id number]#1.00OTGTIFFNormalMagruder Hospital Outside [id number]#1.00OTGTIFFNormal [facility] HospitalOutside Records [id number]#1.00OTGTIFFNormalMagruder Hospital Outside [id number]#1.00OTGTIFFNormal Bur[facility] HospitalOutside Records [id number]#1.00OTGTIFFNormalOhiohealth Riverside Methodist [facility] Hospital PHOSPHORUSon 12-53-0922Quezcdbmu [Mass/Vol]2.7 mg/dLNormal2.5-5.0UnUniversity Hospitals Samaritan Medical CenterComment on above:Performed By: #### [id number] ####[facility] ([facility])[address] [place], [place] [address]GAAPYTO-LAOry 02-18-2025 INR IN PPP BY COAGULATION ASSAY1.98Jske0.90-1.10UnUniversity Hospitals Samaritan Medical CenterComment on above:Result Comment: [facility] RECOMMENDED INR FOR WARFARIN THERAPY CONDITION INRPROPHYLAXIS OF VENOUS THROMBOSIS 2-3(HIGH-RISK SURGERY)TREATMENT OF VENOUS THROMBOSIS 2-3TREATMENT OF PULMONARY EMBOLISM 2-3PREVENTION OF SYSTEMIC EMBOLISM: 2-3 ACUTE MYOCARDIAL INFARCTION TISSUE HEART VALVES VALVULAR HEART DISEASE ATRIAL FIBRILLATION RECURRENT SYSTEMIC EMBOLISMMECHANICAL HEART VALVE 2.5-3.5 FROM: ORAL ANTICOAGULANTS. MECHANISM OF ACTION, CLINICAL EFFECTIVENESS, AND OPTIMAL THERAPE UTIC RANGE. CHEST 1995;108:231S-246S.Performed By: #### [id number] ####[facility] ([facility])[address] [place], [place] [address]ZHSOQTOZXKS TIME (PT) IN PPP BY COAGULATION ASSAY17.9 FetpijqGgla08.3-14.8UnUniversity Hospitals Samaritan Medical CenterComment on above:Performed By: #### [id number] ####[facility] ([facility])[address] [place], [place] [address]MMW4 REFLEX TO FT4on 02-18-2025 THYROTROPIN (MIU/L) IN SER/PLAS BY DETECTION LIMIT <= 0.05 MIU/L3.22 mIU/LNormal 0.34-5.60UnUniversity Hospitals Samaritan Medical CenterComment on above:Performed By: #### [id number] ####[facility] ([facility])[address] [place], [place] [address]Akd - Other Lab Resultson 26-29-5783Aot - Other Lab Results [id number]#1.00OTMercy Health Kings Mills Hospital Orders Onlyon 52-14-0751Ogeudo OnlyNormalUniversOhio State University Wexner Medical CenterLab - Other Lab Resultson 88-10-6469Lrf - Other Lab Results [id number]#1.00OTMercy Health Kings Mills HospitalPatient Handouton 45-68-2428Fcqthvj Handout [id number]#1.00OTMercy Health Kings Mills Hospital Patient [id number]#1.00OTGTMagruder Memorial HospitalCB AUTO DIFFon 37-39-6112EJTX #0.0 103/ulNormal0.0-0.1Bu[facility]rus Community HospitalComment on above:Performed By: #### CBC #### [facility] [address] [address] [address] Anny CorcoranBasophils/100 WBC (Bld)0.4 %Normal0.2-2.0[facility] Comment on above:Performed By: #### CBC #### [facility] [address] [place] [address] Dr. Anny Baker #0.1 103/ulNormal0.0-0.7The [facility] TownshipComment on above: Performed By: #### CBC #### [facility] [address] [address] [address] Anny Bondosinophils/100 WBC (Bld)1.5 %Normal0.9-7.0[facility] Comment on above:Performed By: #### CBC #### [facility] [address] [place] [address] Dr. Anny Bondrythrocyte distribution width (RBC) [Ratio]14.1 %Cjizhc69.0-15.0 [facility] HospitalComment on above:Performed By: #### CBC #### [facility] [address] [place] [address] Dr. Anny CorcoranHematocrit (Bld) [Volume fraction]37.6 %Critically low42.0-54.0 [facility] HospitalComment on above:Performed By: #### CBC #### [facility] [address] [place] [address] Dr. Anny CorcoranHemoglobin (Bld) [Mass/Vol]12.9 g/dLCritically low14.0-18.0Bu[facility] Community HospitalComment on above:Performed By: #### CBC #### [facility] [address] [address] [address] Anny Garcia #0.01 10e3/ulNormal0.00-0.03The [facility] TownshipComment on above:Performed By: #### CBC #### [facility] [address] [place] [address] Dr. Anny Garcia %0.2 %Normal0.0-0.5The [facility] TownshipComment on above: Performed By: #### CBC #### [facility] [address] [place] [address] Dr. Anny Baez #1.1 103/ulCritically low1.2-3.8The [facility] Comment on above:Performed By: #### CBC #### [facility] [address] [place] [address] Dr. Anny Andrehocytes/100 WBC (Bld)21.8 %Ldfgbo66.5-60.0The [facility] TownshipComment on above:Performed By: #### CBC #### [facility] [address] [place] [address] Dr. Anny TellezUAL DIFF REQNONormalThe [facility] TownshipComtrinity health grand [facility] hospital on above: Performed By: #### CBC #### [facility] [address] [place] [address] Dr. Anny Archibald (RBC) [Entitic mass]31.2 efEbyttp77.9-34.0The [facility] TownshipComment on above:Performed By: #### CBC #### [facility] [address] [place] [address] Dr. Anny Welch (RBC) [Mass/Vol]34.3 g/qFMvqqki13.9-35.2The [facility] TownshipComment on above:Performed By: #### CBC #### [facility] [address] [place] [address] Dr. Anny Welch (RBC) [Entitic vol]90.8 lDIdvogx86.0-94.0The [facility] TownshipComment on above:Performed By: #### CBC #### [facility] [address] [address] [address] Anny Dean #0.4 103/ulNormal0.3-0.8The [facility] TownshipComment on above:Performed By: #### CBC #### [facility] [address] [address] [address] Anny Funezocytes/100 WBC (Bld)8.5 %Normal1.7-12.0The [facility] Comment on above:Performed By: #### CBC #### [facility] [address] [place] [address] Dr. Anny Varela #3.5 103/ulNormal1.4-6.5The [facility] TownshipComment on above:Performed By: #### CBC #### [facility] [address] [place] [address] Dr. Anny Burnsutrophils/100 WBC (Bld)67.6 %Vqmppc04.0-75.0The [facility] TownshipComment on above:Performed By: #### CBC #### [facility] [address] [place] [address] Dr. Anny Gilmore mean volume (Bld) [Entitic vol]9.4 fLCritically low 9.5-13.5The [facility] TownshipComment on above:Performed By: #### CBC #### [facility] [address] [place] [address] Dr. Anny CorcoranPLT209 103/qkBwissv581-930Edi [facility] TownshipComment on above: Performed By: #### CBC #### [facility] [address] [place] [address] Dr. Anny CorcoranRBC4.14 106/ulCritically low4.70-6.10The [facility] TownshipComment on above:Performed By: #### CBC #### [facility] [address] [place] [address] Dr. Anny CorcoranWBC5.2 103/ulNormal4.0-11.0The [facility] TownshipComment on above: Performed By: #### CBC #### [facility] [address] [address] [address] Anny MicheleID PROFILEon 71-97-8805WNDV-HDL RATIO NORMSPaulding County HospitalComment on above:Result Comment: 3.3 - 4.4 LOW RISK 4.4 - 7.1 AVERAGE RISK 7.1 - 11.0 MODERATE RISK >11.0 HIGH RISKPerformed By: #### LIPID, CMP #### [facility] [address] [address] [address] Anny CorcoranCholesterol [Mass/Vol]103 mg/dLNormal<=200The [facility] Comment on above:Performed By: #### LIPID, CMP #### [facility] [address] [place] [address] Dr. Anny CorcoranCholesterol in HDL [Mass/Vol]54 mg/yZRlhwyn54-75XkxBucyrus Community HospitalComment on above:Performed By: #### LIPID, CMP #### [facility] [address] [place] [address] Dr. Anny CorcoranCholesterol in LDL [Mass/Vol]43.8 mg/dLLakeHealth TriPoint Medical CenterComment on above:Performed By: #### LIPID, CMP #### [facility] [address] [place] [address] Dr. Anny Vargasestergeovanni.total/Cholesterol in HDL [Mass ratio]1.9 {ratio} NormalBucyrus Community HospitalComment on above:Performed By: #### LIPID, CMP #### [facility] [address] [place] [address] Dr. Anny CorcoranHDL NORMAL> or = 60 mg/dl - LOW CARDIOVASCULAR RISK <40 mg/dl - HIGH CARDIOVASCULAR RISKLakeHealth TriPoint Medical CenterComment on above:Performed By: #### LIPID, CMP #### [facility] [address] [place] [address] Dr. Anny CorcoranLDL CALC NORMALSEE [facility] Hardin Memorial HospitalComment on above:Result Comment: <100 mg/dl OPTIMAL 100 - 129 mg/dl NEAR OR ABOVE OPTIMAL 130 - 159 mg/dl BORDERLINE HIGH 160 - 189 mg/dl HIGH >190 mg/dl VERY HIGH Performed By: #### LIPID, CMP #### [facility] [address] [place] [address] Dr. Anny CorcoranTriglyceride [Mass/Vol]26 mg/dLNormal<=150The [facility] Comment on above:Performed By: #### LIPID, CMP #### [facility] [address] [place] [address] Dr. Anny CorcoranVLDL CALC5.2 mg/dLNormalThe [facility] TownshipComment on above: Performed By: #### LIPID, CMP #### [facility] [address] [place] [address] Dr. Anny CorcoranPRODina 14(COMP METB)on 92-92-0437Eperohf [Mass/Vol]4.0 g/dLNormal 3.4-5.0The [facility] TownshipComment on above:Performed By: #### LIPID, CMP #### [facility] [address] [place] [address] Dr. Anny CorcoranAlbumin/Globulin [Mass ratio]1.4 {ratio}NormalThe [facility] TownshipComment on above:Performed By: #### LIPID, CMP #### [facility] [address] [place] [address] Dr. Anny Olivo [Catalytic activity/Vol]106 U/EXxlskm77-209Utq [facility] TownshipComment on above:Performed By: #### LIPID, CMP #### [facility] [address] [place] [address] Dr. Anny Sims [Catalytic activity/Vol]28 U/MFappwl27-31Wux [facility] TownshipComment on above:Performed By: #### LIPID, CMP #### [facility] [address] [place] [address] Dr. Anny Arriaga gap [Moles/Vol]7.3 mmol/LNormalThe [facility] TownshipComment on above:Performed By: #### LIPID, CMP #### [facility] [address] [place] [address] Dr. Yilan ChangAST [Catalytic activity/Vol]23 U/QExbzut98-53Yhd [facility] TownshipComment on above:Performed By: #### LIPID, CMP #### [facility] [address] [place] [address] Dr. Anny CorcoranBilirubin [Mass/Vol]2.7 mg/dLCritically high0.2-1.0The [facility] TownshipComment on above:Performed By: #### LIPID, CMP #### [facility] [address] [place] [address] Dr. Anny CorcoranCalcium [Mass/Vol]9.0 mg/dLNormal8.5-10.1The [facility] Comment on above:Performed By: #### LIPID, CMP #### [facility] [address] [place] [address] Dr. Anny CorcoranChloride [Moles/Vol]104 mmol/VErvkie35-940Wgx [facility] Comment on above:Performed By: #### LIPID, CMP #### [facility] [address] [place] [address] Dr. Anny CorcoranCO2 [Moles/Vol]32.5 mmol/LCritically high21.0-32.0The [facility] TownshipComment on above:Performed By: #### LIPID, CMP #### [facility] [address] [place] [address] Dr. Anny CorcoranCreatinine [Mass/Vol]0.78 mg/dLNormal0.70-1.30The [facility] TownshipComment on above:Performed By: #### LIPID, CMP #### [facility] [address] [place] [address] Dr. Anny BondGFR-AF NEPALESE>60Normal>=60The [facility] TownshipComment on above:Performed By: #### LIPID, CMP #### [facility] [address] [place] [address] Dr. Anny BondGFR-NON AF NEPALESE>60Normal>=60The [facility] TownshipComment on above:Performed By: #### LIPID, CMP #### [facility] [address] [place] [address] Dr. Yilan ChangGlobulin (S) [Mass/Vol]2.8 g/dLNoSouthwest General Health CenterComment on above:Performed By: #### LIPID, CMP #### [facility] [address] [place] [address] Dr. Anny CorcoranGlucose [Mass/Vol]86 mg/eQIhiqgv20-060IxfBucyrus Community Hospital Comment on above:Performed By: #### LIPID, CMP #### [facility] [address] [place] [address] Dr. Anny CorcoranPotassium [Moles/Vol]3.8 mmol/LNormal3.5-5.1[facility] Comment on above:Performed By: #### LIPID, CMP #### [facility] [address] [place] [address] Dr. Anny CorcoranProtein [Mass/Vol]6.8 g/dLNormal6.4-8.2[facility] Comment on above:Performed By: #### LIPID, CMP #### [facility] [address] [place] [address] Dr. Anny CorcoranSodium [Moles/Vol]140 mmol/STliuug490-466DzvBucyrus Community Hospital Comment on above:Performed By: #### LIPID, CMP #### [facility] [address] [place] [address] Dr. Anny CorcoranUrea nitrogen [Mass/Vol]19.0 mg/dLCritically high7.0-18.0[facility] Community HospitalComment on above:Performed By: #### LIPID, CMP #### [facility] [address] [place] [address] Dr. Anny CorcoranUrea nitrogen/Creatinine [Mass ratio]24.4 mg/mgNoSouthwest General Health CenterComment on above:Performed By: #### LIPID, CMP #### [facility] [address] [place] [address] Dr. Anny NobleME DISEASE AB, TOTAL AND IGM W/WB REFLon 16-93-8594Auxh Disease Ab, Quant, IgM<0.48Fuicgd4.00-0.79The Rey HospitalComment on above:Result Comment: Negative <0.80 Equivocal 0.80 - 1.19 Positive >1.19 . IgM levels may peak at 3-6 weeks post infection, then gradually decline.Performed By: #### LYMA #### [facility] [address] [place], [place] [address] Dr. Anny Henry IgG/IgM Ab<0.62Hkmjyu2.00-0.90The [facility] TownshipComment on above:Result Comment: Negative <0.91 Equivocal 0.91 - 1.09 Positive >1.09Performed By: #### LYMA #### [facility] [address] [place], [place] [address] Dr. Anny CorcoranCT HEAD WO CONon 62-67-1203MH HEAD WO CONHEAD CT WITHOUT CONTRAST: 05/21/2021 [...] Electronically authenticated by: CANDIS MENDEZ Date: 2021-05-21 12:48[facility] Encounters Encounter DateEncounter TypeCare ProviderFacilityStart: 03-23-2025 End: 16-90-0049bshgycokhvWSPI CHAOhio Valley Surgical Hospitaltart: 03-22-2025 End: 19-17-4686pbmjirhqxcNELKUBT [facility]ictart: 03-18-2025 End: 44-94-2774daasemmulmAKVLLY [facility]OUDOURIS[facility]: 03-15-2025 End: 55-99-9604qldnjeosvmWAWHCGA P HOUSEFacility:[facility] ClinicStart: 03-10-2025 End: 55-20-2910zukzntgwjhJGPAURL [facility] Hospitaltart: 79-94-3334Ihjpphnqfi and management of inpatientFADI [facility] Hospitaltart: 47-50-0714Jukzltbmnk and management of inpatientMEGHAN [place] [facility] Hospitaltart: 09-83-3555Rqzbwksydg and management of inpatientSAMER J [facility] Hospitaltart: 12-09-1541Puudnrlopw and management of inpatientFADI [facility] Hospitaltart: 29-25-9065Aayalgyano and management of inpatientFADI [facility] Hospitaltart: 06-97-7796Ktccddykfl and management of inpatientMUNIER NAZZALUniUniversity Hospitals Elyria Medical Centertart: 02-24-2025 Evaluation and management of inpatientSHOBHA RATParkview Healthtart: 38-89-5932Upanwylogz and management of inpatientFADI [facility] Hospitaltart: 37-86-6205Gasqskkizs and management of inpatient RUTH [facility] Hospitaltart: 01-27-7944Vzqptqctkx and management of inpatientFADI [facility] Hospitaltart: 10-24-4195Rktutzwovt and management of inpatientKYU CHUL [facility] Hospitaltart: 24-97-9943Nqczdmfkva and management of inpatientKYU CHUL [facility] Hospitaltart: 55-05-1808Xsbqhcxmjt and management of inpatientCHRISTOPHER [facility] Start: 03-10-5462Yqgrnjubob and management of inpatientMEGHAN [place] [facility] Hospitaltart: 02-18-2025 End: 38-05-5604Myqeroeutc and management of inpatientOMAR [facility] Hospitaltart: 08-44-7519qkauupsnzfTMPQJAT P HOUSEFacility:[facility] ClinicStart: 10-29-2024 End: 50-62-8898sbcalhdnrfQSCJPPO P HOUSEFacility:[facility] ClinicStart: 06-01-2024 End: 79-63-5934jibstzscemJYMEChildren's Hospital for Rehabilitationtart: 04-30-2024 End: 72-59-7727miuytzjgseHE CHARLES P HOUSEFacility:[facility] ClinicStart: 23-97-8642Tefbvtxth for general adult medical examination without abnormal findingsDR LAUREANO LINDEROhioHealth Berger Hospitaltart: 05-09-2022 End: 82-90-9653pmpnyoqkoyPI LAUREANO HOUSEFacility:P9Ndeez: 05-09-2022 End: 92-80-2105Vvbfsfftk for general adult medical examination without abnormal findingsDR TINSLEY OSBURNFacility:X1Tskye: 05-30-2021 End: 85-29-8656onfzptlxmgLC CHARLES OSBURNFacility:Z5Bhxtc: 05-21-2021 End: 01-67-7126krusnhhnwfWS KINGSLEY Mariee REINECKFacility:H1 Procedures DateProcedureProcedure DetailPerforming ClinicianStart: 45-38-2469Tcfdxl-up visitNEW ENGLAND SINAI HOSPITALStart: 60-52-3012Tsqdtq-up visitNEW ENGLAND SINAI HOSPITALStart: 05-09-2022 PSA screeningDR KINGSLEY MATTSONECKComment on above:Performed By: #### PSAD #### [facility] [address] [place] [address] Dr. Anny Weiss DatePayer CategoryPayerPolicy [id number] [id number] .[id number] [id number] [id number] [id number] [id number] Clinical Notes 06-01-2024 to 04-05-2025 Note Date & TfevOkisOxtywaex50-32-4162 NotePt was informed of result and informed patient of advice regarding increase potassium in diet. Pt states he recently started eating bananas again. Pt was informed to repeat lab and order was faxed to [facility] at .[facility]09-23-2025 NoteUnUniversity Hospitals [facility]ar[facility]09-22-2025 NoteUnUniversity Hospitals Samaritan [facility] Center09-18-2025 Note [facility]09-11-2025 NoteUnUniversity Hospitals [facility]aritan [facility]09-10-2025 NoteUnUniversity Hospitals [facility]ar[facility]09-05-2025 Note [facility]09-05-2025 NoteDischarge Planning As per RUCC RN patient is agreeable to [facility]. Referrals made through [facility]. [facility] is able to accept. Added to AVS.[facility]09-05-2025 NoteUnUniversity Hospitals Samaritan Medical Center09-05-2025 Note [facility]09-04-2025 NoteUnUniversity Hospitals [facility]09-04-2025 NoteUnUniversity Hospitals [facility]09-04-2025 Note [facility]09-04-2025 NoteL[facility]09-03-2025 NoteUnUniversity Hospitals [facility]09-03-2025 Note [facility]09-03-2025 NoteUnUniversity Hospitals [facility]09-03-2025 NoteL[facility]09-03-2025 Note [facility]09-03-2025 NoteL[facility]aster [facility]09-03-2025 NoteL[facility]2025 Note [facility]2025 NoteUnUniversity Hospitals [facility]2025 NoteLancaster [facility] Hospital09-01-2025 Note [facility]09-01-2025 NoteUnUniversity Hospitals [facility]09-01-2025 NoteUnUniversity Hospitals [facility]09-01-2025 Note [facility]08-31-2025 NoteUnUniversity Hospitals [facility] Center08-30-2025 NoteUnUniversity Hospitals [facility]08-30-2025 Note [facility]08-29-2025 NoteLancaster [facility] Hospital08-29-2025 NoteL[facility]08-29-2025 Note [facility]08-29-2025 NoteL[facility]08-29-2025 NoteL[facility]08-29-2025 Note [facility]08-28-2025 NoteL[facility]08-28-2025 NoteL[facility]08-28-2025 Note [facility]08-28-2025 NoteL[facility]08-28-2025 NoteL[facility]08-28-2025 Note [facility]08-28-2025 NoteL[facility]08-28-2025 NoteL[facility]08-27-2025 Note [facility]08-27-2025 NoteL[facility]08-27-2025 NoteL[facility]08-27-2025 Note [facility]08-27-2025 NoteUnUniversity Hospitals [facility]08-27-2025 NoteUnUniversity Hospitals [facility]aritan [facility]08-26-2025 Note [facility]08-26-2025 NoteL[facility] Hospital08-26-2025 NoteL[facility]08-26-2025 Note [facility]08-25-2025 NoteUnUniversity Hospitals [facility]ar[facility] Medical Center08-25-2025 NoteUnUniversity Hospitals Samaritan Medical Center08-25-2025 Note- Seen on abdominal rectus abdominal muscles on CT abd/pelvis 02/21 - L noted to be bigger than R - Consider holding heparin - Hgb has been stableUnUniversity Hospitals Samaritan Medical Center08-25-2025 Note- Stable [facility]08-25-2025 Note- Stable, Patient currently not using CPAPUnUniversity Hospitals Samaritan Medical Center08-25-2025 NoteLanc[facility] Hospital08-25-2025 Note- Valsartan and spironolactone held - Blood pressure has been rather hypotensiveLancaster Municipal Hospital 02-22-2025 NoteL[facility] Hospital08-25-2025 NoteUnUniversity Hospitals Samaritan Medical Center08-25-2025 NoteL[facility] 02-22-2025 NoteL[facility]aster [facility] Hospital08-24-2025 NoteL[facility] Hospital08-24-2025 NoteL[facility] 02-21-2025 Note- Continue current valsartan, spironolactone and Toprol-XL for GDMT - Blood pressure has been within acceptable range on 02/21 AMUnUniversity Hospitals Samaritan Medical Center08-24-2025 NoteUnUniversity Hospitals [facility]aritan Medical Center08-24-2025 Note [facility]08-24-2025 Note- StableUnUniversity Hospitals Samaritan Medical Center08-24-2025 Note- Stable, Patient currently not using CPAP [facility]08-24-2025 NoteLancaster [facility] Hospital08-23-2025 NoteUnUniversity Hospitals Samaritan Medical Center08-23-2025 Note- Stable [facility]08-23-2025 Note- Stable,Patient currently not using CPAPUnUniversity Hospitals Samaritan Medical Center08-23-2025 Note- Continue current lisinopril and Toprol-XLUnUniversity Hospitals Samaritan Medical Center08-23-2025 Note [facility]08-23-2025 NoteUnUniversity Hospitals [facility]08-23-2025 NoteUnUniversity Hospitals [facility] Center08-22-2025 Note- Stable [facility]08-22-2025 Note- Stable,Patient currently not using CPAPUnUniversity Hospitals [facility]aritan Medical Center08-22-2025 Note- Continue current lisinopril and Toprol-XLUnUniversity Hospitals Samaritan Medical Center08-22-2025 Note [facility]08-22-2025 NoteUnUniversity Hospitals [facility] Center08-22-2025 NoteUnUniversity Hospitals [facility]08-22-2025 Note [facility]08-22-2025 NoteA/p reviewed and agreed [facility]08-21-2025 Note- Cardiology consultUnUniversity Hospitals Samar[facility] Medical Center08-21-2025 Note- StableUnUniversity Hospitals Samaritan Medical Center08-21-2025 Note- Continue labetalolUnUniversity Hospitals [facility]aritan Medical Center 02-18-2025 NoteUnUniversity Hospitals Samaritan Medical Center08-21-2025 Note- Small pericardial effusion noted on echocardiogram, cardiology consultLancaster Municipal Hospital08-21-2025 NoteL[facility] Hospital 06-01-2024 NoteLancaster Municipal Hospital Summary Purpose Family History No Family History Records FoundNo Family History Records FoundNo Family History Records Found Advance Directives No Advanced Directives Records FoundNo Advanced Directives Records FoundNo Advanced Directives Records Found Additional Source Comments (unrecognized sect ion and content) No Status Records FoundNo Status Records FoundNo Status Records Found INFORMATION SOURCE (unrecogn ized section and content) DATE CREATED AUTHOR 05/14/2022 [facility] DATE CREATED AUTHOR AUTHOR'S ORGANIZ ATION 03/17/2025 [facility] DATE CREATED AUTHOR AUTHOR'S ORGANIZ ATION 05/10/2025 [facility] FOR RECORDS PERTAINING TO PATIENTS WHO [...] BE BASED ON THE PRIMARY CLINICAL RECORDS. [facility] [employer] [facility]. provides no warranty or guarantee of the accuracy or completeness of information in this document.
[2025-06-07 15:51] LABS: Anion Gap 9.4; Blood Urea Nitrogen 19.0 mg/dL (7.0-18.0); Calcium 8.8 mg/dL (8.5-10.1); Carbon Dioxide 29.8 mmol/L (21.0-32.0); Chloride 107 mmol/L (98-107); Estimated GFR (African America >60 (>=60 mL/min/1.73m^2); Estimated GFR (Non-African Ame >60 (>=60 mL/min/1.73m^2); Glucose 83 mg/dL (74-106); Potassium 4.2 mmol/L (3.5-5.1); Sodium 142 mmol/L (136-145)
== END 2025-06-07 15:12 | disposition home or self-care (01) ==
LOC: LAB 15:12
PROVIDERS: Family Provider Internal Medicine Interventional Cardiology; PCP Family Medicine; Visit Provider Nurse Practitioner Family
DX: I50.22 Chronic systolic (congestive) heart failure (principal)
CPT/HCPCS: 36415; 80048